=== PATIENT | female | born 1940 | race Hispanic/Latino ===

== ENCOUNTER 2017-07-22 16:21 | Inpatient (IN) | payer MEDICARE ==
[2017-07-22 16:56] LABS: ABG ALLEN TEST YES; ARTERIAL BLOOD GAS HCO3 22.9 mmol/L (21-28); ARTERIAL BLOOD GAS PH 7.43 (7.35-7.45); ARTERIAL BLOOD GAS PO2 54 mm/Hg (80-100)
[2017-07-22 17:10] LABS: BASO # 0.1 K/uL (0.0-0.2); BASO % 0.7 % (0.0-2.0); EOS % 0.5 % (0.0-4.0); HEMATOCRIT 37.5 % (34.0-47.0); LYMPH # 0.9 K/uL (1.0-4.3); LYMPH % 12.7 % (20.0-40.0); MEAN CELL VOLUME 88.1 fl (81.0-99.0); MEAN CORPUSCULAR HEMOGLOBIN 28.7 pg (27.0-31.0); MEAN CORPUSCULAR HGB CONC 32.6 g/dL (33.0-37.0); MEAN PLATELET VOLUME 8.2 fl (7.2-11.7); MONO # 0.6 K/uL (0.0-0.8); MONO % 8.5 % (0.0-10.0); NEUT # 5.8 K/uL (1.8-7.0); NEUT % 77.6 % (50.0-75.0); NRBC % 0.1 % (0.0-0.0); RED CELL DISTRIBUTION WIDTH 14.6 % (11.5-14.5); WHITE BLOOD COUNT 7.5 K/uL (4.8-10.8)
[2017-07-22 17:22] LABS: ALB/GLOB RATIO 1.3 (1.0-2.1); CALCIUM 9.5 mg/dL (8.4-10.2); CARBON DIOXIDE 22 mmol/L (22-30); CHLORIDE 108 mmol/L (98-107); GFR AFRICAN-AMERICAN > 60; GLUCOSE,RANDOM 122 mg/dL (65-105); SODIUM 142 mmol/l (132-148); TOTAL PROTEIN 7.9 G/DL (6.3-8.2)
[2017-07-22 17:29] LABS: PARTIAL THROMBOPLASTIN TIME 29.4 Seconds (25.6-37.1)
[2017-07-22 17:43] LABS: ALKALINE PHOSPHATASE 101 U/L (38-126); ALT/SGPT 27 U/L (9-52); AST/SGOT 24 U/L (14-36); BLOOD UREA NITROGEN 23 mg/dl (7-17); MAGNESIUM 1.7 MG/DL (1.6-2.3); PHOSPHOROUS 3.5 mg/dl (2.5-4.5); POTASSIUM 3.7 MMOL/L (3.6-5.0)
[2017-07-22] MEDS ORDERED: levoFLOXacin 750 mg in D5W 150 ML BAG IVPB STA (18:00)
[2017-07-22] MEDS ORDERED: cefTRIAXone IV 1 gm in Dextros 50 ML IVPB STA (18:01)
[2017-07-22] MEDS ORDERED: cefTRIAXone IV 1 gm in Dextros 50 ML IVPB ONE (18:17)
--- NOTE | 2017-07-22 19:02 | ED PDOC ---
HPI: SOB/CHF/COPD Time Seen by Provider: 07/22/17 16:45 Chief Complaint (Nursing): Shortness Of Breath Chief Complaint (Provider): sob History Per: Patient Onset/Duration Of Symptoms: Days (2 weeks), Gradual, Persistent Current Symptoms Are (Timing): Still Present Quality: Other (indigestion and discomfort epigastric area) Associated Symptoms: Heart Racing, Ankle/Leg Swelling, Light-headedness, Other ( non productive). denies: Fever, Chills, Sweating, Chest Pain, Bloody Cough, Productive Cough, Musle Spasms In Hands Or Feet Additional Complaint(s): Seen by PMD earlier today and advised to come to ER Past Medical History Reviewed: Historical Data, Nursing Documentation, Vital Signs Vital Signs: Last Vital Signs Temp 97.8 F 07/22/17 18:17 Pulse 98 H 07/22/17 18:17 Resp 20 07/22/17 18:17 BP 143/86 07/22/17 18:35 Pulse Ox 95 07/22/17 18:17 - Medical History PMH: Bronchitis, Diabetes, HTN, Hypercholesterolemia, Kidney Stones, Peripheral Edema, Pneumonia, Chronic Kidney Disease - Surgical History Surgical History: Appendectomy - Family History Family History: States: No Known Family Hx - Social History Current smoker - smoking cessation education provided: No - Home Medications Home Medications: Ambulatory Orders Medication Instructions Recorded Aspirin [Ecotrin] 81 mg PO DAILY #14 tabec 09/11/16 Famotidine [Pepcid] 20 mg PO DAILY 07/22/17 GlipiZIDE SR [Glucotrol XL] 10 mg PO DAILY 07/22/17 Lisinopril [Zestril] 5 mg PO DAILY 07/22/17 methIMAzole [Tapazole] 5 mg PO DAILY 07/22/17 - Allergies Allergies/Adverse Reactions: Allergies Allergy/AdvReac Type Severity Reaction Status Date / Time No Known Allergies Allergy Verified 07/22/17 16:30 Review of Systems ROS Statement: Except As Marked, All Systems Reviewed And Found Negative (and as per HPI) - Laboratory Results Result Diagrams: 07/22/17 16:59 07/22/17 17:05 - ECG O2 Sat by Pulse Oximetry: 95
[2017-07-22] MEDS ORDERED: Azithromycin 500 MG IV IVPB ONE (19:54)
[2017-07-23] MEDS: Nitroglycerin 2% Ointment Foilpak UD TOP SCH ×4 (03:56→21:30)
[2017-07-23 06:12] LABS: THYROID STIMULATING HORMONE 2.15 mIU/ML (0.46-4.68)
[2017-07-23] MEDS ORDERED: Enoxaparin 30 mg Syringe SC SCH (09:00)
--- NOTE | 2017-07-23 09:18 | CT ---
PROCEDURE: CT Chest without contrast HISTORY: effusion and infiltrate, possible mass? COMPARISON: Chest CT without contrast 09/07/2016. TECHNIQUE: Contiguous axial images were obtained through the chest without intravenous contrast enhancement. Sagittal and coronal reconstructions were performed. This CT exam was performed using one or more of the following dose reduction techniques: Automated exposure control, adjustment of the mA and/or kV according to patient size, and/or use of iterative reconstruction technique Total exam DLP = 482.68 mGy-cm. FINDINGS: LUNGS: Trace ground-glass opacities appreciate the bilateral apices. Compression atelectasis favored over infiltrates in the bilateral dependent lower lobes with central airways clear. The pulmonary veins appear somewhat engorged relative to the floorworker distributor airways a pattern suggesting CHF/pulmonary venous congestion. Further clinical correlation is advised. MEDIASTINUM: Unremarkable thoracic aorta. No aneurysm. Extensive coronary artery calcifications are identified as well as at the mitral annulus. Main pulmonary artery unremarkable. No vascular congestion. Shotty mediastinal lymph nodes are encountered. Thoracic inlet appears unremarkable. PLEURA: Mild bilateral pleural effusions are identified at the dependent portions injuring compressive atelectasis of the bilateral lower lobes. BONES: No fracture. No destructive lesion. UPPER ABDOMEN: Intrarenal punctate calculi identified at the right kidney. Incidental left adrenal nodule is not appear significantly changed in the interval at 1.5 cm greatest dimension. OTHER FINDINGS: None. IMPRESSION: 1. Findings likely represent pulmonary venous congestion. 2. Mild bilateral pleural effusions exert compressive atelectasis at bilateral lower lobe bases. 3. Likely benign left adrenal adenoma. Follow-up MRI advised to confirm.
[2017-07-23] MEDS: GlipiZIDE 10 mg SR Tab PO SCH (09:37)
[2017-07-23] MEDS: methIMAzole 5 MG TAB PO SCH (09:39)
--- NOTE | 2017-07-23 10:06 | CP.PCM.CON ---
History of Present Illness - History of Present Illness History of Present Illness: This 77 year old female presented to the emergency room, referred by her PMD, with progressively worsening HARLEY for the last two weeks. She has gradually become more SOB with simple activity, and has developed symptoms C/W orthopnea as well. She denies chest pain, nausea or diaphoresis, but did have a complaint of epigastric pain for which she had taken Pepcid and episodic palpitations. On initial EKG there was noted to be some ST segment depression, and a chest x-ray revealed bilateral pleural effusions. A CT chest w/o contrast was done which showed bilateral effusions with compressive atelectasis of the basal segments of both lower lobes. Shedenied any fever,chills or sweats, and also denied any productive cough. She did admit to an occasional non-productive cough. No ill contacts. She had been hospitalized about 9 months ago with a similar presentation which resolved quickly with medical treatment at that time. She does suffer from diabetes and hyperthyroidism and is followed by endocrinology. Given IV furosemide in the ER with brisk diuresis. Review of Systems - Review of Systems All systems: reviewed and no additional remarkable complaints except - EENT Nose/Mouth/Throat: Nasal Obstruction (deviated nasal septum with post nasal drip ) - Cardiovascular Cardiovascular: Orthopnea, Palpitations - Respiratory Respiratory: Cough, Dyspnea on Exertion - Gastrointestinal Gastrointestinal: Heartburn - Musculoskeletal Musculoskeletal: Tingling (both feet) - Neurological Neurological: Paresthesias (feet) - Psychiatric Psychiatric: Abnormal Sleep Pattern Past Patient History - Past Medical History & Family History Past Medical History?: Yes Pertinent Family History: Diabetes, CAD, colon cancer, lupus. - Past Social History Smoking Status: Former Smoker Chewing Tobacco Use: No Cigar Use: No Alcohol: Social Drugs: Denies Home Situation {Lives}: Alone - CARDIAC Hx Hypercholesterolemia: Yes Hx Hypertension: Yes Hx Peripheral Edema: Yes - PULMONARY Hx Bronchitis: Yes Hx Pneumonia: Yes - NEUROLOGICAL Hx Neurological Disorder: No - HEENT Hx HEENT Problems: No - RENAL Hx Kidney Stones: Yes - ENDOCRINE/METABOLIC Hx Diabetes Mellitus Type 2: Yes Hx Hyperthyroidism: Yes - HEMATOLOGICAL/ONCOLOGICAL Hx Blood Disorders: No Hx Human Immunodeficiency Virus (HIV): No - INTEGUMENTARY Hx Dermatological Problems: No - MUSCULOSKELETAL/RHEUMATOLOGICAL Hx Falls: Yes - GASTROINTESTINAL Hx Gastrointestinal Disorders: No - GENITOURINARY/GYNECOLOGICAL Hx Genitourinary Disorders: No - PSYCHIATRIC Hx Psychophysiologic Disorder: No Hx Substance Use: No - SURGICAL HISTORY Hx Appendectomy: Yes - ANESTHESIA Hx Anesthesia: Yes Hx Anesthesia Reactions: No Hx Malignant Hyperthermia: No Has any member of the family had a problem w/ anesthesia?: No Meds Allergies/Adverse Reactions: Allergies Allergy/AdvReac Type Severity Reaction Status Date / Time No Known Allergies Allergy Verified 07/22/17 16:30 - Medications Medications: Current Medications Aspirin (Ecotrin) 81 mg PO DAILY [facility] Last Admin: 07/23/17 09:38 Dose: 81 mg Enoxaparin Sodium (Lovenox) 30 mg SC DAILY [facility] PRN Reason: Protocol Famotidine (Pepcid) 20 mg PO DAILY [facility] Last Admin: 07/23/17 09:37 Dose: 20 mg Glipizide (Glucotrol Xl) 10 mg PO DAILY [facility] Last Admin: 07/23/17 09:37 Dose: 10 mg Lisinopril (Zestril) 5 mg PO DAILY [facility] Last Admin: 07/23/17 09:38 Dose: 5 mg Methimazole (Tapazole) 5 mg PO DAILY [facility] Last Admin: 07/23/17 09:39 Dose: 5 mg Nitroglycerin (Nitro-Bid 2% Oint) 0.5 ea TOP Q6 [facility] Last Admin: 07/23/17 09:40 Dose: 0.5 ea Physical Exam - Additional Findings Additional findings: Well nourished, well developed, NAD. Cooperative with exam. Trace dependant edema both feet and ankles, no calf tenderness or palpable venous cords. No cyanosis, no jaundice, no Sara's sign. No palpable adenopathy. Pharynx is pink and moist w/o exudate. Conjunctivae pink, no scleral icterus. Nares patent bilaterally, no active bleeding. Neck is supple and trachea midline. Superior thyroid poles palpable bilaterally. Dullness on percussion lung bases posteriorly, more L>R. Breath sounds diminished bilaterally, especially left base. No egophony, no audible wheezes. Few lower lobe rales bilaterally. Heart sounds are distant, rhythm is regular. Abdomen is soft with normal bowel sounds. Results - Vital Signs Recent Vital Signs: Last Vital Signs Temp 97.5 F L 07/23/17 08:00 Pulse 91 H 07/23/17 09:40 Resp 20 07/23/17 08:00 BP 129/58 L 07/23/17 09:40 Pulse Ox 95 07/23/17 08:00 - Labs Result Diagrams: 07/22/17 16:59 07/22/17 17:05 Labs: Laboratory Results - last 24 hr 07/22/17 07/22/17 07/22/17 16:46 16:59 17:05 WBC 7.5 RBC 4.26 Hgb 12.2 Hct 37.5 MCV 88.1 MCH 28.7 MCHC 32.6 L RDW 14.6 H Plt Count 349 D MPV 8.2 Neut % (Auto) 77.6 H Lymph % (Auto) 12.7 L Rabun % (Auto) 8.5 Eos % (Auto) 0.5 Baso % (Auto) 0.7 Neut # 5.8 Lymph # 0.9 L Rabun # 0.6 Eos # 0.0 Baso # 0.1 PT INR APTT D-Dimer, Quantitative pCO2 32 L pO2 54 L HCO3 22.9 ABG pH 7.43 ABG Total CO2 22.2 ABG O2 Saturation 93.2 L ABG Base Excess -2.4 L Anshul Test Yes ABG Potassium 3.3 L A-a O2 Difference 134.0 Sodium 140.0 142 Chloride 109.0 H 108 H Glucose 124 H Lactate 1.4 FiO2 32.0 Potassium 3.7 Carbon Dioxide 22 Anion Gap 16 BUN 23 H Creatinine 0.7 Est GFR ( Amer) > 60 Est GFR (Non-Af Amer) > 60 POC Glucose (mg/dL) Random Glucose 122 H Calcium 9.5 Phosphorus 3.5 Magnesium 1.7 Total Bilirubin 1.0 AST 24 ALT 27 Alkaline Phosphatase 101 Troponin I 0.1020 NT-Pro-B Natriuret Pep Total Protein 7.9 Albumin 4.4 Globulin 3.5 Albumin/Globulin Ratio 1.3 Triglycerides Cholesterol LDL Cholesterol Direct HDL Cholesterol TSH 3rd Generation Arterial Blood Potassium 3.3 L Blood Type Blood Type Confirm Antibody Screen BBK History Checked 07/22/17 07/22/17 07/22/17 17:05 17:09 17:54 WBC RBC Hgb Hct MCV MCH MCHC RDW Plt Count MPV Neut % (Auto) Lymph % (Auto) Rabun % (Auto) Eos % (Auto) Baso % (Auto) Neut # Lymph # Rabun # Eos # Baso # PT 12.0 INR 1.1 APTT 29.4 D-Dimer, Quantitative 142 pCO2 pO2 HCO3 ABG pH ABG Total CO2 ABG O2 Saturation ABG Base Excess Anshul Test ABG Potassium A-a O2 Difference Sodium Chloride Glucose Lactate FiO2 Potassium Carbon Dioxide Anion Gap BUN Creatinine Est GFR ( Amer) Est GFR (Non-Af Amer) POC Glucose (mg/dL) 148 H Random Glucose Calcium Phosphorus Magnesium Total Bilirubin AST ALT Alkaline Phosphatase Troponin I NT-Pro-B Natriuret Pep Total Protein Albumin Globulin Albumin/Globulin Ratio Triglycerides Cholesterol LDL Cholesterol Direct HDL Cholesterol TSH 3rd Generation Arterial Blood Potassium Blood Type A POSITIVE Blood Type Confirm Antibody Screen Negative BBK History Checked No verified bt 07/22/17 07/22/17 07/22/17 18:00 18:33 22:35 WBC RBC Hgb Hct MCV MCH MCHC RDW Plt Count MPV Neut % (Auto) Lymph % (Auto) Rabun % (Auto) Eos % (Auto) Baso % (Auto) Neut # Lymph # Rabun # Eos # Baso # PT INR APTT D-Dimer, Quantitative pCO2 pO2 HCO3 ABG pH ABG Total CO2 ABG O2 Saturation ABG Base Excess Anshul Test ABG Potassium A-a O2 Difference Sodium Chloride Glucose Lactate FiO2 Potassium Carbon Dioxide Anion Gap BUN Creatinine Est GFR ( Amer) Est GFR (Non-Af Amer) POC Glucose (mg/dL) 130 H Random Glucose Calcium Phosphorus Magnesium Total Bilirubin AST ALT Alkaline Phosphatase Troponin I NT-Pro-B Natriuret Pep 2880 H Total Protein Albumin Globulin Albumin/Globulin Ratio Triglycerides Cholesterol LDL Cholesterol Direct HDL Cholesterol TSH 3rd Generation Arterial Blood Potassium Blood Type Blood Type Confirm A POSITIVE Antibody Screen BBK History Checked 07/23/17 07/23/17 07/23/17 00:42 05:00 05:18 WBC RBC Hgb Hct MCV MCH MCHC RDW Plt Count MPV Neut % (Auto) Lymph % (Auto) Rabun % (Auto) Eos % (Auto) Baso % (Auto) Neut # Lymph # Rabun # Eos # Baso # PT INR APTT D-Dimer, Quantitative pCO2 pO2 HCO3 ABG pH ABG Total CO2 ABG O2 Saturation ABG Base Excess Anshul Test ABG Potassium A-a O2 Difference Sodium Chloride Glucose Lactate FiO2 Potassium Carbon Dioxide Anion Gap BUN Creatinine Est GFR ( Amer) Est GFR (Non-Af Amer) POC Glucose (mg/dL) 120 H Random Glucose Calcium Phosphorus Magnesium Total Bilirubin AST ALT Alkaline Phosphatase Troponin I 0.1370 H* NT-Pro-B Natriuret Pep Total Protein Albumin Globulin Albumin/Globulin Ratio Triglycerides 90 Cholesterol 170 LDL Cholesterol Direct 103 HDL Cholesterol 44 TSH 3rd Generation 2.15 Arterial Blood Potassium Blood Type Blood Type Confirm Antibody Screen BBK History Checked 07/23/17 09:05 WBC RBC Hgb Hct MCV MCH MCHC RDW Plt Count MPV Neut % (Auto) Lymph % (Auto) Rabun % (Auto) Eos % (Auto) Baso % (Auto) Neut # Lymph # Rabun # Eos # Baso # PT INR APTT D-Dimer, Quantitative pCO2 pO2 HCO3 ABG pH ABG Total CO2 ABG O2 Saturation ABG Base Excess Anshul Test ABG Potassium A-a O2 Difference Sodium Chloride Glucose Lactate FiO2 Potassium Carbon Dioxide Anion Gap BUN Creatinine Est GFR ( Amer) Est GFR (Non-Af Amer) POC Glucose (mg/dL) Random Glucose Calcium Phosphorus Magnesium Total Bilirubin AST ALT Alkaline Phosphatase Troponin I 0.1280 H* NT-Pro-B Natriuret Pep Total Protein Albumin Globulin Albumin/Globulin Ratio Triglycerides Cholesterol LDL Cholesterol Direct HDL Cholesterol TSH 3rd Generation Arterial Blood Potassium Blood Type Blood Type Confirm Antibody Screen BBK History Checked Assessment & Plan (1) Bilateral pleural effusion Status: Acute Priority: High Comment: Etiology under investigation. (2) Atelectasis, bilateral Status: Acute Priority: High Comment: Appears to be passive/compressive type of atelectasis due to pleural effusion. (3) Hyperthyroidism Status: Chronic Priority: High Comment: On medication. (4) Type 2 diabetes mellitus Status: Chronic Priority: High Comment: On medication. (5) Diabetic neuropathy Status: Chronic Priority: High - Assessment and Plan (Free Text) Plan: Case discussed with cardiology. Will follow up with repeat CXR in AM. Nasal oxygen decreased to 4 LPM with SpO2 =94%. Continue current antibiotic regimen. Further pulmonary intervention, if needed, depending on the above. - Date & Time Date: 07/23/17 Time: 10:21
--- NOTE | 2017-07-23 10:07 | RAD ---
HISTORY: sob COMPARISON: Chest radiographs 11/12/2016. FINDINGS: LUNGS: Interval bilateral basilar atelectasis or infiltrates are appreciated at the left greater than right lung bases with the left hemidiaphragm completely silhouetted. PLEURA: A mild or moderate left pleural effusions identified with none on the right. No pneumothorax identified bilaterally. CARDIOVASCULAR: Cardiac silhouette is obscured. There is mild pulmonary venous congestion suspected. Clinically correlate further. OSSEOUS STRUCTURES: No significant abnormalities. VISUALIZED UPPER ABDOMEN: Normal. OTHER FINDINGS: None. IMPRESSION: Mild CHF suspected. Clinically correlate. [id number] left pleural effusion noted with underlying atelectasis or infiltrate likely at the left base. Limited atelectasis or infiltrate seen the right base as well.
--- NOTE | 2017-07-23 10:52 | CARD ---
APPROVED REPORT EKG Measurement Heart [id number] HI [id number] <Conclusion> Sinus tachycardia with occasional premature ventricular complexes ST depression, consider subendocardial injury Abnormal ECG
--- NOTE | 2017-07-23 11:39 | CP.PCM.CON ---
History of Present Illness - History of Present Illness History of Present Illness: THE PATIENT IS A 77 YEAR OLD FEMALE WHO WAS ADMITTED TO [facility] OF 2016 WITH BILATERAL PLEURAL EFFUSUINS THAT RESOLVED QUICKLY WITH TREATMENT. SHE ALSO HAD CHEST AND ABDOMINAL PAIN AND NEVER FOLLOWED-UP ON A PHARMACOLOGICAL STRESS TEST RECOMMENDATION. SHE ALSO HAS A HISTORY OF HYPERTENSION, HYPERTHYROIDISM, DM, KIDNEY STONES AND PNEUMONIA IN THE PAST. SHE STATES THAT SHE WAS DOING WELL UP UNTIL THE PAST TWO WEEKS WHEN SHE STARTED HAVING SOB ESPECIALLY ON EXERTION AND EVEN HAD ORTHOPNEA. SHE ALSO STATES THAT SHE WOULD HAVE ON AND OFF PALPITATIONS AND HEARTBURN. SHE MIKE DR HOPKINS YESTERDAY WHO ADVISED HER TO COME TO THE ER WHERE SHE WAS FOUND TO HAVE SINUS TACHYCARDIA AND BILATERAL PLEURAL EFFUSIONS AND WAS GIVEN O2, IV FUROSEMIDE AND IV ANTIBIOTICS AND SHE IS BREATHING WELL THIS MORNING AND DOESN'T HAVE PALPITATIONS OR CHEST PAIN. CARDIOLOGY WAS CALLED BECAUSE OF MILDLY ELEVATED CARDIAC ENZYMES. Past Patient History - Past Medical History & Family History Past Medical History?: Yes - Past Social History Smoking Status: Former Smoker Chewing Tobacco Use: No Cigar Use: No Alcohol: Social Drugs: Denies Home Situation {Lives}: Alone - CARDIAC Hx Hypercholesterolemia: Yes Hx Hypertension: Yes Hx Peripheral Edema: Yes - PULMONARY Hx Bronchitis: Yes Hx Pneumonia: Yes - NEUROLOGICAL Hx Neurological Disorder: No - HEENT Hx HEENT Problems: No - RENAL Hx Kidney Stones: Yes - ENDOCRINE/METABOLIC Hx Diabetes Mellitus Type 2: Yes Hx Hyperthyroidism: Yes - HEMATOLOGICAL/ONCOLOGICAL Hx Blood Disorders: No Hx Human Immunodeficiency Virus (HIV): No - INTEGUMENTARY Hx Dermatological Problems: No - MUSCULOSKELETAL/RHEUMATOLOGICAL Hx Falls: Yes - GASTROINTESTINAL Hx Gastrointestinal Disorders: No - GENITOURINARY/GYNECOLOGICAL Hx Genitourinary Disorders: No - PSYCHIATRIC Hx Psychophysiologic Disorder: No Hx Substance Use: No - SURGICAL HISTORY Hx Appendectomy: Yes - ANESTHESIA Hx Anesthesia: Yes Hx Anesthesia Reactions: No Hx Malignant Hyperthermia: No Has any member of the family had a problem w/ anesthesia?: No Meds Allergies/Adverse Reactions: Allergies Allergy/AdvReac Type Severity Reaction Status Date / Time No Known Allergies Allergy Verified 07/22/17 16:30 - Medications Medications: Current Medications Aspirin (Ecotrin) 81 mg PO DAILY [facility] Last Admin: 07/23/17 09:38 Dose: 81 mg Enoxaparin Sodium (Lovenox) 40 mg SC DAILY [facility] PRN Reason: Protocol Famotidine (Pepcid) 20 mg PO DAILY [facility] Last Admin: 07/23/17 09:37 Dose: 20 mg Furosemide (Lasix) 40 mg PO DAILY [facility] Glipizide (Glucotrol Xl) 10 mg PO DAILY [facility] Last Admin: 07/23/17 09:37 Dose: 10 mg Azithromycin 500 mg/ Sodium (Chloride) 250 mls @ 250 mls/hr IVPB DAILY [facility] PRN Reason: Protocol Ceftriaxone Sodium (Rocephin Iv 1 Gm Duplex) 50 mls @ 50 mls/hr IVPB DAILY [facility] PRN Reason: Protocol Methimazole (Tapazole) 5 mg PO DAILY [facility] Last Admin: 07/23/17 09:39 Dose: 5 mg Metoprolol Tartrate (Lopressor) 25 mg PO Q12 [facility] Nitroglycerin (Nitro-Bid 2% Oint) 0.5 ea TOP Q6 [facility] Last Admin: 07/23/17 09:40 Dose: 0.5 ea Physical Exam - Respiratory Exam Respiratory Exam: Decreased Breath Sounds - Cardiovascular Exam Cardiovascular Exam: REGULAR RHYTHM, +S1, +S2 - Extremities Exam Additional comments: MILD LE EDEMA - Additional Findings Additional findings: EKG 07/22/[address], R 118, MILD ANTEROLATERAL WALL ST SEGMENT DEPRESSIONS EKG THIS AM WITH SINUS, R 79, RESOLUTION OF ST SEGMENT DEPRESSIONS TROPONIN # 1 0.102 TROPONIN # 2 0.137 TROPONIN # 3 0.128 PBNP 2880 CXR BILATERAL BASILAR EFFUSIONS ECHO AUG 2016 WITH LVEF OF 60-65% Results - Vital Signs Recent Vital Signs: Last Vital Signs Temp 97.5 F L 07/23/17 08:00 Pulse 91 H 07/23/17 09:40 Resp 20 07/23/17 08:00 BP 129/58 L 07/23/17 09:40 Pulse Ox 95 07/23/17 08:00 - Labs Result Diagrams: 07/22/17 16:59 07/22/17 17:05 Labs: Laboratory Results - last 24 hr 07/22/17 07/22/17 07/22/17 16:46 16:59 17:05 WBC 7.5 RBC 4.26 Hgb 12.2 Hct 37.5 MCV 88.1 MCH 28.7 MCHC 32.6 L RDW 14.6 H Plt Count 349 D MPV 8.2 Neut % (Auto) 77.6 H Lymph % (Auto) 12.7 L Meriwether % (Auto) 8.5 Eos % (Auto) 0.5 Baso % (Auto) 0.7 Neut # 5.8 Lymph # 0.9 L Mer[place]ether # 0.6 Eos # 0.0 Baso # 0.1 PT INR APTT D-Dimer, Quantitative pCO2 32 L pO2 54 L HCO3 22.9 ABG pH 7.43 ABG Total CO2 22.2 ABG O2 Saturation 93.2 L ABG Base Excess -2.4 L Anshul Test Yes ABG Potassium 3.3 L A-a O2 Difference 134.0 Sodium 140.0 142 Chloride 109.0 H 108 H Glucose 124 H Lactate 1.4 FiO2 32.0 Potassium 3.7 Carbon Dioxide 22 Anion Gap 16 BUN 23 H Creatinine 0.7 Est GFR ( Amer) > 60 Est GFR (Non-Af Amer) > 60 POC Glucose (mg/dL) Random Glucose 122 H Calcium 9.5 Phosphorus 3.5 Magnesium 1.7 Total Bilirubin 1.0 AST 24 ALT 27 Alkaline Phosphatase 101 Troponin I 0.1020 NT-Pro-B Natriuret Pep Total Protein 7.9 Albumin 4.4 Globulin 3.5 Albumin/Globulin Ratio 1.3 Triglycerides Cholesterol LDL Cholesterol Direct HDL Cholesterol TSH 3rd Generation Arterial Blood Potassium 3.3 L Blood Type Blood Type Confirm Antibody Screen BBK History Checked 07/22/17 07/22/17 07/22/17 17:05 17:09 17:54 WBC RBC Hgb Hct MCV MCH MCHC RDW Plt Count MPV Neut % (Auto) Lymph % (Auto) Meriwether % (Auto) Eos % (Auto) Baso % (Auto) Neut # Lymph # Meriwether # Eos # Baso # PT 12.0 INR 1.1 APTT 29.4 D-Dimer, Quantitative 142 pCO2 pO2 HCO3 ABG pH ABG Total CO2 ABG O2 Saturation ABG Base Excess Anshul Test ABG Potassium A-a O2 Difference Sodium Chloride Glucose Lactate FiO2 Potassium Carbon Dioxide Anion Gap BUN Creatinine Est GFR ( Amer) Est GFR (Non-Af Amer) POC Glucose (mg/dL) 148 H Random Glucose Calcium Phosphorus Magnesium Total Bilirubin AST ALT Alkaline Phosphatase Troponin I NT-Pro-B Natriuret Pep Total Protein Albumin Globulin Albumin/Globulin Ratio Triglycerides Cholesterol LDL Cholesterol Direct HDL Cholesterol TSH 3rd Generation Arterial Blood Potassium Blood Type A POSITIVE Blood Type Confirm Antibody Screen Negative BBK History Checked No verified bt 07/22/17 07/22/17 07/22/17 18:00 18:33 22:35 WBC RBC Hgb Hct MCV MCH MCHC RDW Plt Count MPV Neut % (Auto) Lymph % (Auto) Meriwether % (Auto) Eos % (Auto) Baso % (Auto) Neut # Lymph # Meriwether # Eos # Baso # PT INR APTT D-Dimer, Quantitative pCO2 pO2 HCO3 ABG pH ABG Total CO2 ABG O2 Saturation ABG Base Excess Anshul Test ABG Potassium A-a O2 Difference Sodium Chloride Glucose Lactate FiO2 Potassium Carbon Dioxide Anion Gap BUN Creatinine Est GFR ( Amer) Est GFR (Non-Af Amer) POC Glucose (mg/dL) 130 H Random Glucose Calcium Phosphorus Magnesium Total Bilirubin AST ALT Alkaline Phosphatase Troponin I NT-Pro-B Natriuret Pep 2880 H Total Protein Albumin Globulin Albumin/Globulin Ratio Triglycerides Cholesterol LDL Cholesterol Direct HDL Cholesterol TSH 3rd Generation Arterial Blood Potassium Blood Type Blood Type Confirm A POSITIVE Antibody Screen BBK History Checked 07/23/17 07/23/17 07/23/17 00:42 05:00 05:18 WBC RBC Hgb Hct MCV MCH MCHC RDW Plt Count MPV Neut % (Auto) Lymph % (Auto) Meriwether % (Auto) Eos % (Auto) Baso % (Auto) Neut # Lymph # Mer[place]ether # Eos # Baso # PT INR APTT D-Dimer, Quantitative pCO2 pO2 HCO3 ABG pH ABG Total CO2 ABG O2 Saturation ABG Base Excess Anshul Test ABG Potassium A-a O2 Difference Sodium Chloride Glucose Lactate FiO2 Potassium Carbon Dioxide Anion Gap BUN Creatinine Est GFR ( Amer) Est GFR (Non-Af Amer) POC Glucose (mg/dL) 120 H Random Glucose Calcium Phosphorus Magnesium Total Bilirubin AST ALT Alkaline Phosphatase Troponin I 0.1370 H* NT-Pro-B Natriuret Pep Total Protein Albumin Globulin Albumin/Globulin Ratio Triglycerides 90 Cholesterol 170 LDL Cholesterol Direct 103 HDL Cholesterol 44 TSH 3rd Generation 2.15 Arterial Blood Potassium Blood Type Blood Type Confirm Antibody Screen BBK History Checked 07/23/17 09:05 WBC RBC Hgb Hct MCV MCH MCHC RDW Plt Count MPV Neut % (Auto) Lymph % (Auto) Mer[place]ether % (Auto) Eos % (Auto) Baso % (Auto) Neut # Lymph # Meriwether # Eos # Baso # PT INR APTT D-Dimer, Quantitative pCO2 pO2 HCO3 ABG pH ABG Total CO2 ABG O2 Saturation ABG Base Excess Anshul Test ABG Potassium A-a O2 Difference Sodium Chloride Glucose Lactate FiO2 Potassium Carbon Dioxide Anion Gap BUN Creatinine Est GFR ( Amer) Est GFR (Non-Af Amer) POC Glucose (mg/dL) Random Glucose Calcium Phosphorus Magnesium Total Bilirubin AST ALT Alkaline Phosphatase Troponin I 0.1280 H* NT-Pro-B Natriuret Pep Total Protein Albumin Globulin Albumin/Globulin Ratio Triglycerides Cholesterol LDL Cholesterol Direct HDL Cholesterol TSH 3rd Generation Arterial Blood Potassium Blood Type Blood Type Confirm Antibody Screen BBK History Checked Assessment & Plan - Assessment and Plan (Free Text) Assessment: MILDLY ELEVATED TROPONINS AND MILD ANTEROLATERAL WALL ST SEGMENT DEPRESSIONS- MAY BE JUST FROM SINUS TACHYCARDIA BUT WITH HEARTBURN THIS MAY BE AN ANGINAL EQUIVALENT WITH MYOCARDIAL ISCHEMIA MILD ACUTE DIASTOLIC CHF PROBABLY FROM SINUS TACHYCARDIA AND MYOCARDIAL ISCHEMIA -MAY BE THE CAUSE OF THE PLEURAL EFFUSIONS HYPERTENSION HYPERLIPIDEMIA HYPERTHYROIDISM DM Plan: THE PATIENT WAS ADMITTED TO 4N ON TELEMETRY SERIAL EKGS AND TROPONINS WERE ALREADY DONE O2, ASPIRIN, FUROSEMIDE, NITROPASTE, LOVENOX, ANTIBIOTICS, TAPAZOLE LISINOPRIL CHANGED TO METOPROLOL TO TREAT HYPERTENSION BUT ALSO TO TREAT CAD AND SINUS TACHYCARDIA A CARDIAC CATHETERIZATION WAS RECOMMENDED TO THE PATIENT TO ASSESS FOR CAD AND POSSIBLE NEED FOR CORONARY REVASCULARIZATION-THE PATIENT IS UNDECIDED IF SHE WANTS TO UNDERGO A CARDIAC CATHETERIZATION OR JUST HAVE CONSERVATIVE MEDICAL TREATMENT AND WANTS TO THINK IT OVER AND MAKE A DECISION BY TOMORROW THE PATIENT WAS DISCUSSED WITH PULMONARY
--- NOTE | 2017-07-23 12:03 | CARD ---
APPROVED REPORT EKG Measurement Heart [id number] <Conclusion> Normal sinus rhythm Normal ECG
[2017-07-23] MEDS: cefTRIAXone IV 1 gm in Dextros 50 ML IVPB SCH (14:45)
[2017-07-23] MEDS: Azithromycin 500 MG in Sodium Chloride 0.9% 250 ML IVPB SCH (15:54)
--- NOTE | 2017-07-23 20:41 | CP.PCM.HP ---
History of Present Illness - History of Present Illness History of Present Illness: 77 yo with hx of COPD HTN admitted for palpitations epigastric discomfort and SOB. Pt states sx similar to previous admission Present on Admission - Present on Admission Any Indicators Present on Admission: No Past Patient History - Past Medical History & Family History Past Medical History?: Yes - Past Social History Smoking Status: Former Smoker Chewing Tobacco Use: No Cigar Use: No Alcohol: Social Drugs: Denies Home Situation {Lives}: Alone - CARDIAC Hx Hypercholesterolemia: Yes Hx Hypertension: Yes Hx Peripheral Edema: Yes - PULMONARY Hx Bronchitis: Yes Hx Pneumonia: Yes - NEUROLOGICAL Hx Neurological Disorder: No - HEENT Hx HEENT Problems: No - RENAL Hx Kidney Stones: Yes - ENDOCRINE/METABOLIC Hx Diabetes Mellitus Type 2: Yes Hx Hyperthyroidism: Yes - HEMATOLOGICAL/ONCOLOGICAL Hx Blood Disorders: No Hx Human Immunodeficiency Virus (HIV): No - INTEGUMENTARY Hx Dermatological Problems: No - MUSCULOSKELETAL/RHEUMATOLOGICAL Hx Falls: Yes - GASTROINTESTINAL Hx Gastrointestinal Disorders: No - GENITOURINARY/GYNECOLOGICAL Hx Genitourinary Disorders: No - PSYCHIATRIC Hx Psychophysiologic Disorder: No Hx Substance Use: No - SURGICAL HISTORY Hx Appendectomy: Yes - ANESTHESIA Hx Anesthesia: Yes Hx Anesthesia Reactions: No Hx Malignant Hyperthermia: No Has any member of the family had a problem w/ anesthesia?: No Meds Allergies/Adverse Reactions: Allergies Allergy/AdvReac Type Severity Reaction Status Date / Time No Known Allergies Allergy Verified 07/22/17 16:30 Physical Exam - Respiratory Exam Respiratory Exam: NORMAL BREATHING PATTERN - Cardiovascular Exam Cardiovascular Exam: REGULAR RHYTHM - GI/Abdominal Exam GI & Abdominal Exam: Normal Bowel Sounds Results - Vital Signs Recent Vital Signs: Last Vital Signs Temp 97.2 F L 07/23/17 18:58 Pulse 79 07/23/17 18:58 Resp 20 07/23/17 18:58 BP 107/62 07/23/17 18:58 Pulse Ox 95 07/23/17 18:58 - Labs Result Diagrams: 07/22/17 16:59 07/22/17 17:05 Labs: Laboratory Results - last 24 hr 07/22/17 07/22/17 07/22/17 17:09 18:33 22:35 POC Glucose (mg/dL) 148 H 130 H Hemoglobin A1c Troponin I Triglycerides Cholesterol LDL Cholesterol Direct HDL Cholesterol TSH 3rd Generation Blood Type Confirm A POSITIVE 07/23/17 07/23/17 07/23/17 00:42 05:00 05:00 POC Glucose (mg/dL) Hemoglobin A1c 5.9 Troponin I 0.1370 H* Triglycerides 90 Cholesterol 170 LDL Cholesterol Direct 103 HDL Cholesterol 44 TSH 3rd Generation 2.15 Blood Type Confirm 07/23/17 07/23/17 07/23/17 05:18 09:05 11:35 POC Glucose (mg/dL) 120 H 137 H Hemoglobin A1c Troponin I 0.1280 H* Triglycerides Cholesterol LDL Cholesterol Direct HDL Cholesterol TSH 3rd Generation Blood Type Confirm 07/23/17 16:11 POC Glucose (mg/dL) 124 H Hemoglobin A1c Troponin I Triglycerides Cholesterol LDL Cholesterol Direct HDL Cholesterol TSH 3rd Generation Blood Type Confirm Assessment & Plan - Assessment and Plan (Free Text) Assessment: Palpitations epigastric discomfort and SOB hx of COPD HTN + trponins?? Pleural effusions diastolic CHF? Cardiology Pulmonary NIDDM Thyroid dx Endo Periphereal neuropathy - Date & Time Date: 07/23/17 Time: 22:22
[2017-07-24] MEDS: Nitroglycerin 2% Ointment Foilpak UD TOP SCH ×4 (05:23→21:23)
[2017-07-24] MEDS ORDERED: cefTRIAXone IV 1 gm in Dextros 50 ML IVPB SCH (09:00)
--- NOTE | 2017-07-24 09:25 | CP.PCM.PN ---
Subjective - Date & Time of Evaluation Date of Evaluation: 07/24/17 Time of Evaluation: 09:18 - Subjective Subjective: Patient seen on rounds in telemetry. States she feels significantly improved from admission. Able to lie in bed and sleep comfortably last night. No complaints of chest discomfort or palpitations. No shortness of breath, but ambulates only from bed to bathroom. On exam there is still dullness on percussion of the lung bases posteriorly. There is an area of bronchial breathing with egophony at the left base. On the right there are only diminished breath sounds at the base. No audible wheezes heard. Few lower lobe medium rales bilaterally Heart sounds are slightly distant, regular. No dependant edema or cyanosis. Followup CXR requested for this morning. She is anxious for discharge, but we did discuss cardiology's recommendation for cath. She appears to prefer discharge, and time to think it over, but I tried to explain clearly the potential risks involved in waiting. Objective - Vital Signs/Intake and Output Vital Signs (last 24 hours): Temp Pulse Resp BP Pulse Ox 97.3 F L 81 20 116/58 L 98 07/24/17 08:14 07/24/17 08:14 07/24/17 08:14 07/24/17 08:14 07/24/17 08:14 - Medications Medications: Current Medications Aspirin (Ecotrin) 81 mg PO DAILY [facility] Last Admin: 07/23/17 09:38 Dose: 81 mg Enoxaparin Sodium (Lovenox) 40 mg SC DAILY [facility] PRN Reason: Protocol Famotidine (Pepcid) 20 mg PO DAILY [facility] Last Admin: 07/23/17 09:37 Dose: 20 mg Furosemide (Lasix) 40 mg PO DAILY [facility] Last Admin: 07/23/17 12:01 Dose: 40 mg Glipizide (Glucotrol Xl) 10 mg PO DAILY [facility] Last Admin: 07/23/17 09:37 Dose: 10 mg Azithromycin 500 mg/ Sodium (Chloride) 250 mls @ 250 mls/hr IVPB DAILY [facility] PRN Reason: Protocol Last Admin: 07/23/17 15:54 Dose: 250 mls/hr Ceftriaxone Sodium (Rocephin Iv 1 Gm Duplex) 50 mls @ 50 mls/hr IVPB DAILY [facility] PRN Reason: Protocol Last Admin: 07/23/17 14:45 Dose: 50 mls/hr Lactulose (Enulose) 20 gm PO DAILY [facility] Last Admin: 07/23/17 14:55 Dose: 20 gm Methimazole (Tapazole) 5 mg PO DAILY [facility] Last Admin: 07/23/17 09:39 Dose: 5 mg Metoprolol Tartrate (Lopressor) 25 mg PO Q12 [facility] Last Admin: 07/23/17 21:30 Dose: 25 mg Nitroglycerin (Nitro-Bid 2% Oint) 0.5 ea TOP Q6 [facility] Last Admin: 07/24/17 05:23 Dose: 0.5 ea - Labs Labs: 07/22/17 16:59 07/22/17 17:05 PT 12.0 Seconds (9.8-13.1) 07/22/17 17:05 INR 1.1 (0.9-1.2) 07/22/17 17:05 APTT 29.4 Seconds (25.6-37.1) 07/22/17 17:05 Assessment and Plan (1) Bilateral pleural effusion Status: Acute (2) Atelectasis, bilateral Status: Acute (3) Hyperthyroidism Status: Chronic (4) Type 2 diabetes mellitus Status: Chronic (5) Diabetic neuropathy Status: Chronic
[2017-07-24] MEDS: Enoxaparin 40 mg Syringe SC SCH (09:30)
[2017-07-24] MEDS: GlipiZIDE 10 mg SR Tab PO SCH (09:31)
[2017-07-24] MEDS: methIMAzole 5 MG TAB PO SCH (09:32)
[2017-07-24] MEDS: Azithromycin 500 MG in Sodium Chloride 0.9% 250 ML IVPB SCH (09:33)
[2017-07-24] MEDS: cefTRIAXone IV 1 gm in Dextros 50 ML IVPB SCH ×2 (09:56→16:46)
--- NOTE | 2017-07-24 10:28 | CP.PCM.PN ---
Subjective - Date & Time of Evaluation Date of Evaluation: 07/24/17 Time of Evaluation: 09:30 - Subjective Subjective: NO FURTHER CHEST PAIN, HEARTBURN OR PALPITATIONS BREATHING WELL NOW AND SLEPT WELL LAST NIGHT SHE DOESN'T WANT TO HAVE A CARDIAC CATH AT THE PRESENT TIME Objective - Vital Signs/Intake and Output Vital Signs (last 24 hours): Temp Pulse Resp BP Pulse Ox 97.3 F L 81 20 116/58 L 98 07/24/17 08:14 07/24/17 09:32 07/24/17 08:14 07/24/17 09:32 07/24/17 08:14 - Medications Medications: Current Medications Aspirin (Ecotrin) 81 mg PO DAILY [facility] Last Admin: 07/24/17 09:30 Dose: 81 mg Enoxaparin Sodium (Lovenox) 40 mg SC DAILY [facility] PRN Reason: Protocol Last Admin: 07/24/17 09:30 Dose: 40 mg Famotidine (Pepcid) 20 mg PO DAILY [facility] Last Admin: 07/24/17 09:32 Dose: 20 mg Furosemide (Lasix) 40 mg PO DAILY [facility] Last Admin: 07/24/17 09:31 Dose: 40 mg Glipizide (Glucotrol Xl) 10 mg PO DAILY [facility] Last Admin: 07/24/17 09:31 Dose: 10 mg Azithromycin 500 mg/ Sodium (Chloride) 250 mls @ 250 mls/hr IVPB DAILY [facility] PRN Reason: Protocol Last Admin: 07/24/17 09:33 Dose: 250 mls/hr Ceftriaxone Sodium (Rocephin Iv 1 Gm Duplex) 50 mls @ 50 mls/hr IVPB DAILY [facility] PRN Reason: Protocol Last Admin: 07/23/17 14:45 Dose: 50 mls/hr Lactulose (Enulose) 20 gm PO DAILY [facility] Last Admin: 07/24/17 09:34 Dose: Not Given Methimazole (Tapazole) 5 mg PO DAILY [facility] Last Admin: 07/24/17 09:32 Dose: 5 mg Metoprolol Tartrate (Lopressor) 25 mg PO Q12 [facility] Last Admin: 07/24/17 09:30 Dose: 25 mg Nitroglycerin (Nitro-Bid 2% Oint) 0.5 ea TOP Q6 [facility] Last Admin: 07/24/17 09:32 Dose: 0.5 ea - Labs Labs: 07/22/17 16:59 11/27/17 17:05 PT 12.0 Seconds (9.8-13.1) 07/22/17 17:05 INR 1.1 (0.9-1.2) 07/22/17 17:05 APTT 29.4 Seconds (25.6-37.1) 07/22/17 17:05 - Respiratory Exam Respiratory Exam: Decreased Breath Sounds - Cardiovascular Exam Cardiovascular Exam: REGULAR RHYTHM, +S1, +S2 - Extremities Exam Extremities Exam: Normal Inspection Assessment and Plan - Assessment and Plan (Free Text) Assessment: S/P CHEST PAIN, PALPITATIONS WITH SINUS TACHYCARDIA AND MILDLY ELEVATED TROPONINS-NOW CHEST PAIN FREE AND WITH SINUS RHYTM AT NORMAL RATES-THE PATIENT MAY HAVE UNDERLYING CAD MILD DIASTOLIC CHF-IMPROVED WITH TREATMENT HYPERTENSION HYPERLIPIDEMIA HYPERTHYROIDISM Plan: THE PATIENT DECLINES A CARDIAC CATH FOR POSSIBLE CORONARY REVASCULARIZATION AT THIS TIME CONTINUE O2, FUROSEMIDE, NITROPASTE, METOPROLOL, ASPIRIN, ATORVASTATIN, LOVENOX THE PATIENT WAS ASKED TO RECONSIDER A CARDIAC CATH ON THIS ADMISSION BUT IF SHE STILL DECLINES WE CAN DO AN OUT PATIENT PHARMACOLOGICAL STRESS TEST IN THE NEAR FUTURE FOR REPEAT CXR
--- NOTE | 2017-07-24 13:39 | RAD ---
HISTORY: Atelectasis. COMPARISON: 07/22/2017 single-view chest. TECHNIQUE: Chest PA and lateral FINDINGS: LUNGS: Interval improvement with respect aeration right lower lobe. Persistent/improving left lower lobe infiltrate. PLEURA: Stable left pleural effusion. CARDIOVASCULAR: No significant interval change compared to the prior examination(s). OSSEOUS STRUCTURES: No significant abnormalities. VISUALIZED UPPER ABDOMEN: Normal. OTHER FINDINGS: None. IMPRESSION: Interval improvement with respect to lower lobe infiltrates. Left pleural effusion remains.
--- NOTE | 2017-07-24 18:56 | CP.PCM.PN ---
Subjective - Date & Time of Evaluation Date of Evaluation: 07/24/17 Time of Evaluation: 22:22 - Subjective Subjective: Above noted Objective - Vital Signs/Intake and Output Vital Signs (last 24 hours): Temp Pulse Resp BP Pulse Ox 97.7 F 77 16 131/65 98 07/24/17 16:07 07/24/17 16:07 07/24/17 16:07 07/24/17 16:07 07/24/17 16:07 Intake and Output: 07/24/17 07/24/17 06:59 18:59 Intake Total 1150 Output Total 450 Balance 700 - Medications Medications: Current Medications Aspirin (Ecotrin) 81 mg PO DAILY [facility] Last Admin: 07/24/17 09:30 Dose: 81 mg Enoxaparin Sodium (Lovenox) 40 mg SC DAILY [facility] PRN Reason: Protocol Last Admin: 07/24/17 09:30 Dose: 40 mg Famotidine (Pepcid) 20 mg PO DAILY [facility] Last Admin: 07/24/17 09:32 Dose: 20 mg Furosemide (Lasix) 40 mg PO DAILY [facility] Last Admin: 07/24/17 09:31 Dose: 40 mg Glipizide (Glucotrol Xl) 10 mg PO DAILY [facility] Last Admin: 07/24/17 09:31 Dose: 10 mg Azithromycin 500 mg/ Sodium (Chloride) 250 mls @ 250 mls/hr IVPB DAILY [facility] PRN Reason: Protocol Last Admin: 07/24/17 09:33 Dose: 250 mls/hr Ceftriaxone Sodium (Rocephin Iv 1 Gm Duplex) 50 mls @ 50 mls/hr IVPB DAILY [facility] PRN Reason: Protocol Last Admin: 07/24/17 09:56 Dose: 50 mls/hr Lactulose (Enulose) 20 gm PO DAILY [facility] Last Admin: 07/24/17 09:34 Dose: Not Given Methimazole (Tapazole) 5 mg PO DAILY [facility] Last Admin: 07/24/17 09:32 Dose: 5 mg Metoprolol Tartrate (Lopressor) 25 mg PO Q12 [facility] Last Admin: 07/24/17 09:30 Dose: 25 mg Nitroglycerin (Nitro-Bid 2% Oint) 0.5 ea TOP Q6 [facility] Last Admin: 07/24/17 18:04 Dose: 0.5 ea - Labs Labs: 07/22/17 16:59 07/22/17 17:05 PT 12.0 Seconds (9.8-13.1) 07/22/17 17:05 INR 1.1 (0.9-1.2) 07/22/17 17:05 APTT 29.4 Seconds (25.6-37.1) 07/22/17 17:05 - Respiratory Exam Respiratory Exam: NORMAL BREATHING PATTERN - Cardiovascular Exam Cardiovascular Exam: REGULAR RHYTHM - GI/Abdominal Exam GI & Abdominal Exam: Normal Bowel Sounds Assessment and Plan - Assessment and Plan (Free Text) Assessment: CAP Diastolic CHF CAD?? SOB Palpitations epigastric discomfort Hx of COPD HTN + trponins?? Pleural effusions Cardiology Pulmonary NIDDM Thyroid dx Endo Periphereal neuropathy - Date & Time Date: 07/23/17
[2017-07-25] MEDS: Nitroglycerin 2% Ointment Foilpak UD TOP SCH ×2 (05:10→09:47)
[2017-07-25 06:27] LABS: BASO % 0.7 % (0.0-2.0); EOS # 0.2 K/uL (0.0-0.7); EOS % 3.2 % (0.0-4.0); HEMATOCRIT 30.5 % (34.0-47.0); LYMPH % 16.1 % (20.0-40.0); MEAN CELL VOLUME 87.3 fl (81.0-99.0); MEAN CORPUSCULAR HGB CONC 33.2 g/dL (33.0-37.0); MEAN PLATELET VOLUME 8.1 fl (7.2-11.7); MONO # 0.9 K/uL (0.0-0.8); MONO % 14.3 % (0.0-10.0); NEUT # 4.3 K/uL (1.8-7.0); NEUT % 65.7 % (50.0-75.0); RED CELL DISTRIBUTION WIDTH 14.3 % (11.5-14.5); WHITE BLOOD COUNT 6.5 K/uL (4.8-10.8)
[2017-07-25 06:47] LABS: BLOOD UREA NITROGEN 37 mg/dl (7-17); CALCIUM 9.2 mg/dL (8.4-10.2); CARBON DIOXIDE 27 mmol/L (22-30); CHLORIDE 108 mmol/L (98-107); GFR AFRICAN-AMERICAN > 60; GLUCOSE,RANDOM 44 mg/dL (65-105); POTASSIUM 3.9 MMOL/L (3.6-5.0); SODIUM 143 mmol/l (132-148)
[2017-07-25] MEDS: Azithromycin 500 MG in Sodium Chloride 0.9% 250 ML IVPB SCH (09:44)
[2017-07-25] MEDS: Enoxaparin 40 mg Syringe SC SCH (09:45)
[2017-07-25] MEDS: methIMAzole 5 MG TAB PO SCH (09:46)
[2017-07-25] MEDS: GlipiZIDE 10 mg SR Tab PO SCH (09:46)
--- NOTE | 2017-07-25 11:54 | CP.PCM.PN ---
Subjective - Date & Time of Evaluation Date of Evaluation: 07/25/17 Time of Evaluation: 11:00 - Subjective Subjective: NO CHEST PAIN OR PALPITATIONS BREATHING BETTER Objective - Vital Signs/Intake and Output Vital Signs (last 24 hours): Temp Pulse Resp BP Pulse Ox 97.8 F 75 20 103/62 94 L 07/25/17 08:00 07/25/17 09:47 07/25/17 08:00 07/25/17 09:47 07/25/17 08:00 Intake and Output: 07/25/17 07/25/17 06:59 18:59 Intake Total 250 Balance 250 - Medications Medications: Current Medications Aspirin (Ecotrin) 81 mg PO DAILY [facility] Last Admin: 07/25/17 09:46 Dose: 81 mg Enoxaparin Sodium (Lovenox) 40 mg SC DAILY [facility] PRN Reason: Protocol Last Admin: 07/25/17 09:45 Dose: 40 mg Famotidine (Pepcid) 20 mg PO DAILY [facility] Last Admin: 07/25/17 09:45 Dose: 20 mg Furosemide (Lasix) 40 mg PO DAILY [facility] Last Admin: 07/25/17 09:46 Dose: 40 mg Glipizide (Glucotrol Xl) 10 mg PO DAILY [facility] Last Admin: 07/25/17 09:46 Dose: 10 mg Azithromycin 500 mg/ Sodium (Chloride) 250 mls @ 250 mls/hr IVPB DAILY [facility] PRN Reason: Protocol Last Admin: 07/25/17 09:44 Dose: 250 mls/hr Ceftriaxone Sodium (Rocephin Iv 1 Gm Duplex) 50 mls @ 50 mls/hr IVPB DAILY [facility] PRN Reason: Protocol Last Admin: 07/24/17 09:56 Dose: 50 mls/hr Lactulose (Enulose) 20 gm PO DAILY [facility] Last Admin: 07/25/17 09:46 Dose: 20 gm Methimazole (Tapazole) 5 mg PO DAILY [facility] Last Admin: 07/25/17 09:46 Dose: 5 mg Metoprolol Tartrate (Lopressor) 25 mg PO Q12 [facility] Last Admin: 07/25/17 09:45 Dose: 25 mg Nitroglycerin (Nitro-Bid 2% Oint) 0.5 ea TOP Q6 [facility] Last Admin: 07/25/17 09:47 Dose: 0.5 ea - Labs Labs: 07/25/17 05:00 07/25/17 05:00 PT 12.0 Seconds (9.8-13.1) 07/22/17 17:05 INR 1.1 (0.9-1.2) 07/22/17 17:05 APTT 29.4 Seconds (25.6-37.1) 07/22/17 17:05 - Respiratory Exam Respiratory Exam: Decreased Breath Sounds - Cardiovascular Exam Cardiovascular Exam: REGULAR RHYTHM, +S1, +S2 - Extremities Exam Extremities Exam: Normal Inspection - Additional Findings Additional findings: 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
--- NOTE | 2017-07-25 12:25 | CP.PCM.PN ---
Subjective - Date & Time of Evaluation Date of Evaluation: 07/25/17 Time of Evaluation: 12:19 - Subjective Subjective: Sitting on the EOB she appears comfortable. She remains afebrile and normotensive. No leukocytosis on followup CBC. Chest x-ray shows somen improvement in the right sided effusion, but on the left the effusion remains and there is a LLL consolidation with air- bronchograms present. This was suggested by the initial CXR, but is better seen on the followup exam. There is dullness in the bases posteriorly in both lungs on percussion. An area of bronchial breathing with egophony is present in the lower lobe area as well. No rales or wheezes are heard, and only few medium rales are auscultated. With coaching to cough there seems to be little congestion heard in the bases as well. Will add aerosolized mucomyst with low dose levalbuterol. CPT using flutter valve device will be requested as well. Add PO guaifenesin to the regimen. She is a poor candidate for bronchoscopy considering the questionable cardiac status. Objective - Vital Signs/Intake and Output Vital Signs (last 24 hours): Temp Pulse Resp BP Pulse Ox 97.8 F 75 20 103/62 94 L 07/25/17 08:00 07/25/17 09:47 07/25/17 08:00 07/25/17 09:47 07/25/17 08:00 Intake and Output: 07/25/17 07/25/17 11:59 23:59 Intake Total 250 Balance 250 - Medications Medications: Current Medications Aspirin (Ecotrin) 81 mg PO DAILY [facility] Last Admin: 07/25/17 09:46 Dose: 81 mg Atorvastatin Calcium (Lipitor) 20 mg PO DAILY [facility] Enoxaparin Sodium (Lovenox) 40 mg SC DAILY [facility] PRN Reason: Protocol Last Admin: 07/25/17 09:45 Dose: 40 mg Famotidine (Pepcid) 20 mg PO DAILY [facility] Last Admin: 07/25/17 09:45 Dose: 20 mg Furosemide (Lasix) 40 mg PO DAILY [facility] Last Admin: 07/25/17 09:46 Dose: 40 mg Glipizide (Glucotrol Xl) 10 mg PO DAILY [facility] Last Admin: 07/25/17 09:46 Dose: 10 mg Azithromycin 500 mg/ Sodium (Chloride) 250 mls @ 250 mls/hr IVPB DAILY [facility] PRN Reason: Protocol Last Admin: 07/25/17 09:44 Dose: 250 mls/hr Ceftriaxone Sodium (Rocephin Iv 1 Gm Duplex) 50 mls @ 50 mls/hr IVPB DAILY [facility] PRN Reason: Protocol Last Admin: 07/24/17 09:56 Dose: 50 mls/hr Lactulose (Enulose) 20 gm PO DAILY [facility] Last Admin: 07/25/17 09:46 Dose: 20 gm Methimazole (Tapazole) 5 mg PO DAILY [facility] Last Admin: 07/25/17 09:46 Dose: 5 mg Metoprolol Tartrate (Lopressor) 25 mg PO Q12 [facility] Last Admin: 07/25/17 09:45 Dose: 25 mg Nitroglycerin (Nitro-Bid 2% Oint) 0.5 ea TOP Q6 [facility] Last Admin: 07/25/17 09:47 Dose: 0.5 ea - Labs Labs: 07/25/17 05:00 07/25/17 05:00 PT 12.0 Seconds (9.8-13.1) 07/22/17 17:05 INR 1.1 (0.9-1.2) 07/22/17 17:05 APTT 29.4 Seconds (25.6-37.1) 07/22/17 17:05 Assessment and Plan (1) Bilateral pleural effusion Status: Acute (2) Atelectasis, bilateral Status: Acute (3) Hyperthyroidism Status: Chronic (4) Type 2 diabetes mellitus Status: Chronic (5) Diabetic neuropathy Status: Chronic
[2017-07-25] MEDS: cefTRIAXone IV 1 gm in Dextros 50 ML IVPB SCH (13:34)
[2017-07-25 16:16] VITALS: BP 152/60; PULSE 86; RESP 14; TEMP 97.7; O2SAT 96
[2017-07-25] MEDS ORDERED: Levalbuterol 0.63 MG/3 ML Inhal Soln UD INH SCH (17:00)
[2017-07-25] MEDS ORDERED: Acetylcysteine 20% Inhal Soln (4ml) INH SCH (20:00)
[2017-07-25] MEDS ORDERED: guaiFENesin 600 mg ER Tab PO SCH (21:00)
== END 2017-07-25 16:10 | DRG 291 ==
LOC: H.ER 16:21 → H.ERHOLD 18:15 → H.TEL 20:22
PROVIDERS: ADMIT Family Medicine Geriatric Medicine; ATTEND Family Medicine Geriatric Medicine
DX: I13.0 Hypertensive heart and chronic kidney disease with heart failure and stage 1 through stage 4 chronic kidney disease, or unspecified chronic kidney disease (principal); I50.31 Acute diastolic (congestive) heart failure; J18.9 Pneumonia, unspecified organism; E11.42 Type 2 diabetes mellitus with diabetic polyneuropathy; E11.22 Type 2 diabetes mellitus with diabetic chronic kidney disease; J44.0 Chronic obstructive pulmonary disease with (acute) lower respiratory infection; J98.11 Atelectasis; N18.9 Chronic kidney disease, unspecified; E78.5 Hyperlipidemia, unspecified; R00.0 Tachycardia, unspecified; Z87.891 Personal history of nicotine dependence; E78.00 Pure hypercholesterolemia, unspecified; Z53.20 Procedure and treatment not carried out because of patient's decision for unspecified reasons; E05.90 Thyrotoxicosis, unspecified without thyrotoxic crisis or storm

== ENCOUNTER 2017-07-25 15:19 | Inpatient (IN) | payer OTHER ==
[2017-07-25 16:19] VITALS: BMI 26.5
[2017-07-25] MEDS ORDERED: Azithromycin 500 MG in Sodium Chloride 0.9% 250 ML IVPB SCH (18:30)
--- NOTE | 2017-07-25 21:19 | CP.PCM.HP ---
History of Present Illness - History of Present Illness History of Present Illness: 77 yo admitted for decoonditioning Present on Admission - Present on Admission Any Indicators Present on Admission: No Past Patient History - Past Medical History & Family History Past Medical History?: Yes - Past Social History Smoking Status: Former Smoker - CARDIAC Hx Hypercholesterolemia: Yes Hx Hypertension: Yes Hx Peripheral Edema: Yes - PULMONARY Hx Bronchitis: Yes Hx Pneumonia: Yes - NEUROLOGICAL Hx Neurological Disorder: No - HEENT Hx HEENT Problems: No - RENAL Hx Kidney Stones: Yes - ENDOCRINE/METABOLIC Hx Diabetes Mellitus Type 2: Yes Hx Hyperthyroidism: Yes - HEMATOLOGICAL/ONCOLOGICAL Hx Blood Disorders: No Hx AIDS: No Hx Human Immunodeficiency Virus (HIV): No - INTEGUMENTARY Hx Dermatological Problems: No - MUSCULOSKELETAL/RHEUMATOLOGICAL Hx Falls: No - GASTROINTESTINAL Hx Gastrointestinal Disorders: No - GENITOURINARY/GYNECOLOGICAL Hx Genitourinary Disorders: No - PSYCHIATRIC Hx Psychophysiologic Disorder: No Hx Substance Use: No - SURGICAL HISTORY Hx Appendectomy: Yes - ANESTHESIA Hx Anesthesia: Yes Hx Anesthesia Reactions: No Hx Malignant Hyperthermia: No Meds Allergies/Adverse Reactions: Allergies Allergy/AdvReac Type Severity Reaction Status Date / Time No Known Allergies Allergy Verified 07/25/17 16:13 Physical Exam - Respiratory Exam Respiratory Exam: NORMAL BREATHING PATTERN - Cardiovascular Exam Cardiovascular Exam: REGULAR RHYTHM - GI/Abdominal Exam GI & Abdominal Exam: Normal Bowel Sounds Results - Vital Signs Recent Vital Signs: Last Vital Signs Temp Pulse 74 07/25/17 17:53 Resp BP Pulse Ox Assessment & Plan - Assessment and Plan (Free Text) Assessment: Deconditioning TCU CAP Diastolic CHF CAD?? SOB Palpitations Hx of COPD HTN + trponins?? Pleural effusions infiltrate Cardiology Pulmonary NIDDM Thyroid dx Endo Periphereal neuropathy - Date & Time Date: 07/25/17 Time: 22:22
[2017-07-25] MEDS: guaiFENesin 600 mg ER Tab PO SCH (22:52)
[2017-07-26] MEDS: Levalbuterol 0.63 MG/3 ML Inhal Soln UD INH SCH ×2 (08:00→20:00)
[2017-07-26] MEDS: Acetylcysteine 20% Inhal Soln (4ml) INH SCH ×2 (08:00→20:00)
[2017-07-26] MEDS: Enoxaparin 40 mg Syringe SC SCH (08:57)
[2017-07-26] MEDS: guaiFENesin 600 mg ER Tab PO SCH ×2 (08:57→21:09)
[2017-07-26] MEDS: methIMAzole 5 MG TAB PO SCH (08:58)
[2017-07-26] MEDS ORDERED: cefTRIAXone IV 1 gm in Dextros 50 ML BAG IVPB SCH (09:00)
[2017-07-26] MEDS: cefTRIAXone IV 1 gm in Dextros 50 ML IVPB SCH (09:14)
--- NOTE | 2017-07-26 09:59 | CP.PCM.CON ---
History of Present Illness - History of Present Illness History of Present Illness: THE PATIENT IS A 77 YEAR OLD FEMALE WHO WAS RECENTLY ADMITTED TO [facility] WITH MULTIPLE COMPLAINTS INCLUDING SOB, HEARTBURN AND TACHCARDIA. SHE WAS FOUND TO BE IN SINUS TACHYCARDIA, HAVE MILD DIASTOLIC CHF AND BIBASILAR SMALL PLEURAL EFFUSIONS AND BIBASILAR PNEUMONIA. SHE ALSO HAD MILDLY ELEVATED TROPONINS THAT MAY JUST HAVE BEEN FROM THE TACHYCARDIA AND CHF, BUT MYOCARDIAL ISCHEMIA COULD NOT BE RULED OUT. SHE DID WELL ON O2, FUROSEMIDE, METOPROLOL, NITROPASTWE, ASPIRIN AND IV ANTIBIOTICS AND HER SOB HAS IMPROVED AND SHE HAD NO FURTHER TACHYCARDIA OR HEARTBURN. A CARDIAC CATHETERIZATION WAS RECOMMENDED FOR EVALUATION OF HER CORONARY ARTERIES AND TO INSERT A CORONARY STENT IF NEEDED BUT SHE DECLINED IT. SHE ALSO HAS A HISTORY OF HYPERTENSION AND HYPERTHYROIDISM. SHE WAS PRESENTLY DISCHARGED TO TCU FOR SUBACUTE REHAB BECAUSE SHE IS DECONDITIONED AND CARDIOLOGY WAS ASKED TO SEE AND FOLLOW HER. Past Patient History - Past Medical History & Family History Past Medical History?: Yes - Past Social History Smoking Status: Former Smoker - CARDIAC Hx Hypercholesterolemia: Yes Hx Hypertension: Yes Hx Peripheral Edema: Yes - PULMONARY Hx Bronchitis: Yes Hx Pneumonia: Yes - NEUROLOGICAL Hx Neurological Disorder: No - HEENT Hx HEENT Problems: No - RENAL Hx Kidney Stones: Yes - ENDOCRINE/METABOLIC Hx Diabetes Mellitus Type 2: Yes Hx Hyperthyroidism: Yes - HEMATOLOGICAL/ONCOLOGICAL Hx Blood Disorders: No Hx AIDS: No Hx Human Immunodeficiency Virus (HIV): No - INTEGUMENTARY Hx Dermatological Problems: No - MUSCULOSKELETAL/RHEUMATOLOGICAL Hx Falls: No - GASTROINTESTINAL Hx Gastrointestinal Disorders: No - GENITOURINARY/GYNECOLOGICAL Hx Genitourinary Disorders: No - PSYCHIATRIC Hx Psychophysiologic Disorder: No Hx Substance Use: No - SURGICAL HISTORY Hx Appendectomy: Yes - ANESTHESIA Hx Anesthesia: Yes Hx Anesthesia Reactions: No Hx Malignant Hyperthermia: No Meds Allergies/Adverse Reactions: Allergies Allergy/AdvReac Type Severity Reaction Status Date / Time No Known Allergies Allergy Verified 07/25/17 16:13 - Medications Medications: Current Medications Acetylcysteine (Acetylcysteine 20%) 2 ml INH Q12 [facility] Last Admin: 07/26/17 08:00 Dose: 2 ml Aspirin (Ecotrin) 81 mg PO DAILY [facility] Last Admin: 07/26/17 08:57 Dose: 81 mg Enoxaparin Sodium (Lovenox) 40 mg SC DAILY [facility] PRN Reason: Protocol Last Admin: 07/26/17 08:57 Dose: 40 mg Famotidine (Pepcid) 20 mg PO DAILY [facility] Last Admin: 07/26/17 08:58 Dose: 20 mg Furosemide (Lasix) 40 mg PO DAILY [facility] Last Admin: 07/26/17 08:57 Dose: 40 mg Guaifenesin (Mucinex La) 1,200 mg PO Q12 [facility] Last Admin: 07/26/17 08:57 Dose: 1,200 mg Ceftriaxone Sodium (Rocephin Iv 1 Gm Duplex) 50 mls @ 50 mls/hr IVPB DAILY [facility] Last Admin: 07/26/17 09:14 Dose: 50 mls/hr Azithromycin 500 mg/ Sodium (Chloride) 250 mls @ 250 mls/hr IVPB DAILY@2200 [facility] Levalbuterol HCl (Xopenex) 0.63 mg INH Q12 [facility] Last Admin: 07/26/17 08:00 Dose: 0.63 mg Lisinopril (Zestril) 5 mg PO DAILY [facility] Last Admin: 07/26/17 08:57 Dose: 5 mg Methimazole (Tapazole) 5 mg PO DAILY [facility] Last Admin: 07/26/17 08:58 Dose: 5 mg Metoprolol Tartrate (Lopressor) 25 mg PO Q12 [facility] Last Admin: 07/26/17 08:58 Dose: 25 mg Physical Exam - Respiratory Exam Respiratory Exam: Decreased Breath Sounds - Cardiovascular Exam Cardiovascular Exam: REGULAR RHYTHM, +S1, +S2 - Extremities Exam Extremities exam: Positive for: normal inspection Results - Vital Signs Recent Vital Signs: Last Vital Signs Temp Pulse 84 07/26/17 08:58 Resp BP 135/59 L 07/26/17 08:58 Pulse Ox - Labs Labs: Laboratory Results - last 24 hr 07/26/17 07/26/17 05:40 06:39 POC Glucose (mg/dL) 55 L 153 H Assessment & Plan - Assessment and Plan (Free Text) Assessment: BILATERAL PLEURAL EFFUSIONS AND PNEUMONIA-IMPROVING POSSIBLE CAD MILD DIASTOLIC CHF HYPERTENSION HYPERTHYROIDISM Plan: CONTINUE ASPIRIN, LOVENOX, METOPROLOL, FUROSEMIDE, ANTIBIOTICS AND BRONCHODILATORS
--- NOTE | 2017-07-26 17:58 | CP.PCM.PN ---
Subjective - Date & Time of Evaluation Date of Evaluation: 07/26/17 Time of Evaluation: 22:22 - Subjective Subjective: Above noted Objective - Vital Signs/Intake and Output Vital Signs (last 24 hours): Temp Pulse Resp BP Pulse Ox 96.8 F L 82 18 104/58 L 95 07/26/17 15:00 07/26/17 17:06 07/26/17 15:00 07/26/17 15:00 07/26/17 17:06 - Medications Medications: Current Medications Acetylcysteine (Acetylcysteine 20%) 2 ml INH Q12 [facility] Last Admin: 07/26/17 08:00 Dose: 2 ml Aspirin (Ecotrin) 81 mg PO DAILY [facility] Last Admin: 07/26/17 08:57 Dose: 81 mg Enoxaparin Sodium (Lovenox) 40 mg SC DAILY [facility] PRN Reason: Protocol Last Admin: 07/26/17 08:57 Dose: 40 mg Famotidine (Pepcid) 20 mg PO DAILY [facility] Last Admin: 07/26/17 08:58 Dose: 20 mg Furosemide (Lasix) 40 mg PO DAILY [facility] Last Admin: 07/26/17 08:57 Dose: 40 mg Guaifenesin (Mucinex La) 1,200 mg PO Q12 [facility] Last Admin: 07/26/17 08:57 Dose: 1,200 mg Ceftriaxone Sodium (Rocephin Iv 1 Gm Duplex) 50 mls @ 50 mls/hr IVPB DAILY [facility] Last Admin: 07/26/17 09:14 Dose: 50 mls/hr Azithromycin 500 mg/ Sodium (Chloride) 250 mls @ 250 mls/hr IVPB DAILY@2200 [facility] Levalbuterol HCl (Xopenex) 0.63 mg INH Q12 [facility] Last Admin: 07/26/17 08:00 Dose: 0.63 mg Methimazole (Tapazole) 5 mg PO DAILY [facility] Last Admin: 07/26/17 08:58 Dose: 5 mg Metoprolol Tartrate (Lopressor) 25 mg PO Q12 [facility] Last Admin: 07/26/17 08:58 Dose: 25 mg - Respiratory Exam Respiratory Exam: NORMAL BREATHING PATTERN - Cardiovascular Exam Cardiovascular Exam: REGULAR RHYTHM - GI/Abdominal Exam GI & Abdominal Exam: Normal Bowel Sounds Assessment and Plan - Assessment and Plan (Free Text) Assessment: Deconditioning TCU CAP Diastolic CHF CAD?? SOB Palpitations Hx of COPD HTN + trponins?? Pleural effusions infiltrate Cardiology Pulmonary NIDDM Thyroid dx Endo Periphereal neuropathy
[2017-07-26 21:47] VITALS: RESP 20
[2017-07-26] MEDS ORDERED: Azithromycin 500 MG in Sodium Chloride 0.9% 250 ML IVPB SCH (22:00)
[2017-07-27] MEDS: Acetylcysteine 20% Inhal Soln (4ml) INH SCH ×3 (08:35→19:38)
[2017-07-27] MEDS: Levalbuterol 0.63 MG/3 ML Inhal Soln UD INH SCH ×3 (08:36→19:37)
[2017-07-27] MEDS: guaiFENesin 600 mg ER Tab PO SCH ×2 (08:45→21:12)
[2017-07-27] MEDS: methIMAzole 5 MG TAB PO SCH (08:45)
[2017-07-27] MEDS: Enoxaparin 40 mg Syringe SC SCH (08:46)
[2017-07-27] MEDS: cefTRIAXone IV 1 gm in Dextros 50 ML IVPB SCH (08:48)
[2017-07-27] MEDS ORDERED: Chlorhexidine Gluconate 1 APPL/PKT TP ONE (11:48)
--- NOTE | 2017-07-27 13:04 | CP.PCM.CON ---
History of Present Illness - History of Present Illness History of Present Illness: The patient was initially seen in acute medicine where she presented with HARLEY and was found to have bilateral pleural effusions and LLL atelectasis. She did not have any fever, chills or leukocytosis. There was cardiac enzyme elevation with ST segment depression on her initial EKG done in the ER. She has declined further cardiac evaluation at this time, but has improved symptomatically. Her pleural effusion has resolved on the right, but there is residual effusion on the left with left basal consolidation and air bronchograms. She continues to receive antibiotic therapy and aerosol treatments with low dose levalbuterol and acetylcysteine. Her vital signs remain stable and she offers no complaints of shortness of breath, cough or chest discomfort. Review of Systems - Cardiovascular Cardiovascular: Orthopnea - Respiratory Respiratory: Cough, Dyspnea on Exertion - Gastrointestinal Gastrointestinal: Abdominal Pain (epigastric) - Musculoskeletal Musculoskeletal: Tingling Past Patient History - Past Medical History & Family History Past Medical History?: Yes Pertinent Family History: colon cancer, lupus, CAD, diabetes. - Past Social History Smoking Status: Former Smoker Chewing Tobacco Use: No Cigar Use: No Alcohol: Social Drugs: Denies Home Situation {Lives}: Alone - CARDIAC Hx Hypercholesterolemia: Yes Hx Hypertension: Yes Hx Peripheral Edema: Yes - PULMONARY Hx Bronchitis: Yes Hx Pneumonia: Yes - NEUROLOGICAL Hx Neurological Disorder: No - HEENT Hx HEENT Problems: No - RENAL Hx Kidney Stones: Yes - ENDOCRINE/METABOLIC Hx Diabetes Mellitus Type 2: Yes Hx Hyperthyroidism: Yes - HEMATOLOGICAL/ONCOLOGICAL Hx Blood Disorders: No Hx Human Immunodeficiency Virus (HIV): No - INTEGUMENTARY Hx Dermatological Problems: No - MUSCULOSKELETAL/RHEUMATOLOGICAL Hx Falls: No - GASTROINTESTINAL Hx Gastrointestinal Disorders: No - GENITOURINARY/GYNECOLOGICAL Hx Genitourinary Disorders: No - PSYCHIATRIC Hx Psychophysiologic Disorder: No Hx Substance Use: No - SURGICAL HISTORY Hx Appendectomy: Yes - ANESTHESIA Hx Anesthesia: Yes Hx Anesthesia Reactions: No Hx Malignant Hyperthermia: No Meds Allergies/Adverse Reactions: Allergies Allergy/AdvReac Type Severity Reaction Status Date / Time No Known Allergies Allergy Verified 07/25/17 16:13 - Medications Medications: Current Medications Acetylcysteine (Acetylcysteine 20%) 2 ml INH Q12 [facility] Last Admin: 07/27/17 08:37 Dose: 2 ml Aspirin (Ecotrin) 81 mg PO DAILY [facility] Last Admin: 07/27/17 08:45 Dose: 81 mg Enoxaparin Sodium (Lovenox) 40 mg SC DAILY [facility] PRN Reason: Protocol Last Admin: 07/27/17 08:46 Dose: 40 mg Famotidine (Pepcid) 20 mg PO DAILY@2100 [facility] Furosemide (Lasix) 40 mg PO DAILY [facility] Last Admin: 07/27/17 08:44 Dose: 40 mg Guaifenesin (Mucinex La) 1,200 mg PO Q12 [facility] Last Admin: 07/27/17 08:45 Dose: 1,200 mg Ceftriaxone Sodium (Rocephin Iv 1 Gm Duplex) 50 mls @ 50 mls/hr IVPB DAILY [facility] Last Admin: 07/27/17 08:48 Dose: 50 mls/hr Azithromycin 500 mg/ Dextrose 250 mls @ 250 mls/hr IVPB DAILY@2200 [facility] Levalbuterol HCl (Xopenex) 0.63 mg INH Q12 [facility] Last Admin: 07/27/17 08:36 Dose: 0.63 mg Magnesium Hydroxide (Milk Of Magnesia) 30 ml PO DAILY [facility] PRN Reason: Constipation Methimazole (Tapazole) 5 mg PO DAILY [facility] Last Admin: 07/27/17 08:45 Dose: 5 mg Metoprolol Tartrate (Lopressor) 25 mg PO Q12 [facility] Last Admin: 07/27/17 08:45 Dose: 25 mg Physical Exam - Additional Findings Additional findings: Awake, alert, comfortable, ambulating in the hallway using walker. Mood is good, memory intact. No palpable lymphadenopathy. Neck is supple and trachea is midline. Dullness is still present in the left base posteriorly. Breath sounds are diminished bilaterally, especially so in the left base. Dry rales are heard in the bases, L>R. No bronchial breathing or egophony. No audible wheezing. Heart sounds are distant, rhythm is regular. Results - Vital Signs Recent Vital Signs: Last Vital Signs Temp 97.8 F 07/27/17 08:46 Pulse 94 H 07/27/17 08:46 Resp 20 07/27/17 08:46 BP 113/47 L 07/27/17 08:46 Pulse Ox 100 07/27/17 08:46 - Labs Labs: Laboratory Results - last 24 hr 07/26/17 07/26/17 07/27/17 16:31 20:52 05:37 POC Glucose (mg/dL) 108 131 H 86 Assessment & Plan (1) Atelectasis Status: Acute Priority: High Comment: Left lower lobe, basal segments. (2) Pulmonary infiltrate in left lung on CXR Status: Acute Priority: High Comment: Pneumonic consolidation with air bronchograms, retrocardiac area. - Assessment and Plan (Free Text) Plan: Continue aerosol therapy. Add CPT with flutter valve device (not started on acute medicine?). Continue current antibiotic regimen. Repeat CXR PA/Lateral tomorrow. If CXR is improving I will switch her to oral antibiotic. - Date & Time Date: 07/27/17 Time: 13:02
[2017-07-27] MEDS: Magnesium Hydroxide Susp 30 ml UD PO PRN (16:35)
--- NOTE | 2017-07-27 22:43 | CP.PCM.PN ---
Subjective - Date & Time of Evaluation Date of Evaluation: 07/27/17 Time of Evaluation: 22:22 - Subjective Subjective: Pulmonary note appreciated Objective - Vital Signs/Intake and Output Vital Signs (last 24 hours): Temp Pulse Resp BP Pulse Ox 97.0 F L 80 20 130/62 94 L 07/27/17 19:17 07/27/17 21:12 07/27/17 19:17 07/27/17 21:12 07/27/17 19:17 - Medications Medications: Current Medications Acetylcysteine (Acetylcysteine 20%) 2 ml INH Q12 [facility] Last Admin: 07/27/17 19:38 Dose: 2 ml Aspirin (Ecotrin) 81 mg PO DAILY [facility] Last Admin: 07/27/17 08:45 Dose: 81 mg Enoxaparin Sodium (Lovenox) 40 mg SC DAILY [facility] PRN Reason: Protocol Last Admin: 07/27/17 08:46 Dose: 40 mg Famotidine (Pepcid) 20 mg PO DAILY@2100 [facility] Last Admin: 07/27/17 21:13 Dose: 20 mg Furosemide (Lasix) 40 mg PO DAILY [facility] Last Admin: 07/27/17 08:44 Dose: 40 mg Guaifenesin (Mucinex La) 1,200 mg PO Q12 [facility] Last Admin: 07/27/17 21:12 Dose: 1,200 mg Ceftriaxone Sodium (Rocephin Iv 1 Gm Duplex) 50 mls @ 50 mls/hr IVPB DAILY [facility] Last Admin: 07/27/17 08:48 Dose: 50 mls/hr Azithromycin 500 mg/ Dextrose 250 mls @ 250 mls/hr IVPB DAILY@2200 [facility] Last Admin: 07/27/17 21:14 Dose: 250 mls/hr Levalbuterol HCl (Xopenex) 0.63 mg INH Q12 [facility] Last Admin: 07/27/17 19:37 Dose: 0.63 mg Magnesium Hydroxide (Milk Of Magnesia) 30 ml PO DAILY [facility] PRN Reason: Constipation Last Admin: 07/27/17 16:35 Dose: 30 ml Methimazole (Tapazole) 5 mg PO DAILY [facility] Last Admin: 07/27/17 08:45 Dose: 5 mg Metoprolol Tartrate (Lopressor) 25 mg PO Q12 [facility] Last Admin: 07/27/17 21:12 Dose: 25 mg - Respiratory Exam Respiratory Exam: NORMAL BREATHING PATTERN - Cardiovascular Exam Cardiovascular Exam: REGULAR RHYTHM - GI/Abdominal Exam GI & Abdominal Exam: Normal Bowel Sounds Assessment and Plan - Assessment and Plan (Free Text) Assessment: Deconditioning TCU SOB Palpitations CAP/ COPD HTN Diastolic CHF? CAD?? + trponins?? Cont ABX Cardiology Pulmonary NIDDM Thyroid dx Endo Periphereal neuropathy? Vit D deficiency
[2017-07-28] MEDS: Acetylcysteine 20% Inhal Soln (4ml) INH SCH ×2 (07:26→19:27)
[2017-07-28] MEDS: Levalbuterol 0.63 MG/3 ML Inhal Soln UD INH SCH ×2 (07:27→19:27)
[2017-07-28 08:02] LABS: BASO # 0.1 K/uL (0.0-0.2); BASO % 1.1 % (0.0-2.0); EOS # 0.2 K/uL (0.0-0.7); EOS % 4.2 % (0.0-4.0); HEMATOCRIT 29.6 % (34.0-47.0); LYMPH # 0.8 K/uL (1.0-4.3); LYMPH % 16.1 % (20.0-40.0); MEAN CELL VOLUME 86.3 fl (81.0-99.0); MEAN CORPUSCULAR HEMOGLOBIN 29.4 pg (27.0-31.0); MEAN PLATELET VOLUME 8.1 fl (7.2-11.7); MONO # 0.7 K/uL (0.0-0.8); MONO % 13.9 % (0.0-10.0); NEUT # 3.1 K/uL (1.8-7.0); NEUT % 64.7 % (50.0-75.0); NRBC % 0.1 % (0.0-0.0); RED CELL DISTRIBUTION WIDTH 14.2 % (11.5-14.5); WHITE BLOOD COUNT 4.9 K/uL (4.8-10.8)
[2017-07-28 08:25] LABS: BLOOD UREA NITROGEN 36 mg/dl (7-17); CALCIUM 9.2 mg/dL (8.4-10.2); CARBON DIOXIDE 26 mmol/L (22-30); CHLORIDE 106 mmol/L (98-107); GFR AFRICAN-AMERICAN > 60; GLUCOSE,RANDOM 108 mg/dL (65-105); SODIUM 143 mmol/l (132-148)
[2017-07-28] MEDS: Enoxaparin 40 mg Syringe SC SCH (08:31)
[2017-07-28] MEDS: guaiFENesin 600 mg ER Tab PO SCH ×2 (08:33→21:32)
[2017-07-28] MEDS: methIMAzole 5 MG TAB PO SCH (08:33)
[2017-07-28] MEDS: cefTRIAXone IV 1 gm in Dextros 50 ML IVPB SCH (08:40)
--- NOTE | 2017-07-28 15:29 | CP.PCM.PN ---
Subjective - Date & Time of Evaluation Date of Evaluation: 07/28/17 Time of Evaluation: 22:22 - Subjective Subjective: CXR done Objective - Vital Signs/Intake and Output Vital Signs (last 24 hours): Temp Pulse Resp BP Pulse Ox 97.2 F L 88 20 146/68 100 07/28/17 08:00 07/28/17 08:32 07/28/17 08:00 07/28/17 08:32 07/28/17 08:00 - Medications Medications: Current Medications Acetylcysteine (Acetylcysteine 20%) 2 ml INH Q12 [facility] Last Admin: 07/28/17 07:26 Dose: 2 ml Aspirin (Ecotrin) 81 mg PO DAILY [facility] Last Admin: 07/28/17 08:32 Dose: 81 mg Enoxaparin Sodium (Lovenox) 40 mg SC DAILY [facility] PRN Reason: Protocol Last Admin: 07/28/17 08:31 Dose: 40 mg Famotidine (Pepcid) 20 mg PO DAILY@2100 [facility] Last Admin: 07/27/17 21:13 Dose: 20 mg Furosemide (Lasix) 40 mg PO DAILY [facility] Last Admin: 07/28/17 08:32 Dose: 40 mg Guaifenesin (Mucinex La) 1,200 mg PO Q12 [facility] Last Admin: 07/28/17 08:33 Dose: 1,200 mg Ceftriaxone Sodium (Rocephin Iv 1 Gm Duplex) 50 mls @ 50 mls/hr IVPB DAILY [facility] Last Admin: 07/28/17 08:40 Dose: 50 mls/hr Azithromycin 500 mg/ Dextrose 250 mls @ 250 mls/hr IVPB DAILY@2200 [facility] Last Admin: 07/27/17 21:14 Dose: 250 mls/hr Levalbuterol HCl (Xopenex) 0.63 mg INH Q12 [facility] Last Admin: 07/28/17 07:27 Dose: 0.63 mg Magnesium Hydroxide (Milk Of Magnesia) 30 ml PO DAILY [facility] PRN Reason: Constipation Last Admin: 07/27/17 16:35 Dose: 30 ml Methimazole (Tapazole) 5 mg PO DAILY [facility] Last Admin: 07/28/17 08:33 Dose: 5 mg Metoprolol Tartrate (Lopressor) 25 mg PO Q12 [facility] Last Admin: 07/28/17 08:32 Dose: 25 mg - Labs Labs: 07/28/17 07:30 07/28/17 07:30 - Respiratory Exam Respiratory Exam: NORMAL BREATHING PATTERN - Cardiovascular Exam Cardiovascular Exam: Tachycardia - GI/Abdominal Exam GI & Abdominal Exam: Normal Bowel Sounds Assessment and Plan - Assessment and Plan (Free Text) Assessment: Deconditioning TCU SOB Palpitations CAP/ COPD HTN Diastolic CHF? CAD?? + trponins?? Cont ABX Cardiology Pulmonary NIDDM Thyroid dx Endo Periphereal neuropathy? Vit D deficiency (12)
--- NOTE | 2017-07-28 16:15 | RAD ---
HISTORY: pneumonia COMPARISON: Comparison made with chest radiograph dated 07/24/2017. TECHNIQUE: Chest PA and lateral FINDINGS: LUNGS: Re- demonstrated are mild pulmonary vascular congestive changes with patchy at opacity in the left lower lobe that may represent some combination of atelectasis/ infiltrate and small effusion. Minor right basilar atelectasis and tiny right effusion PLEURA: No significant pleural effusion identified. No pneumothorax apparent. CARDIOVASCULAR: Heart appears borderline/mildly enlarged. OSSEOUS STRUCTURES: No significant abnormalities. VISUALIZED UPPER ABDOMEN: Normal. OTHER FINDINGS: None. IMPRESSION: Findings most consistent with mild central pulmonary vascular congestive changes with patchy left lower lobe atelectasis and or infiltrate and small left effusion. Minor right basilar atelectasis and tiny right effusion.
[2017-07-28] MEDS: Magnesium Hydroxide Susp 30 ml UD PO PRN (21:31)
[2017-07-29] MEDS: Levalbuterol 0.63 MG/3 ML Inhal Soln UD INH SCH ×2 (07:43→19:18)
[2017-07-29] MEDS: Acetylcysteine 20% Inhal Soln (4ml) INH SCH ×2 (07:43→19:17)
[2017-07-29] MEDS: guaiFENesin 600 mg ER Tab PO SCH ×2 (08:21→21:15)
[2017-07-29] MEDS: methIMAzole 5 MG TAB PO SCH (08:21)
[2017-07-29] MEDS: Enoxaparin 40 mg Syringe SC SCH (08:21)
[2017-07-29] MEDS: cefTRIAXone IV 1 gm in Dextros 50 ML IVPB SCH (08:22)
--- NOTE | 2017-07-29 09:41 | CP.PCM.PN ---
Subjective - Date & Time of Evaluation Date of Evaluation: 07/29/17 Time of Evaluation: 09:39 - Subjective Subjective: Clinically appears stable. Remains afebrile w/o leukocytosis. Followup CXR shows some persistent retro-cardiac density with air-bronchogram. There is likely small pleural effusions bilaterally, and venous congested pattern is still present. Legionella, Strep and Mycoplasma are negative. She still has minimal sputum expectoration. On auscultation there is still diminished breath sounds with dry rales in the left base posteriorly. There are no wheezes or bronchial breath sounds. Will discontinue parenteral antibiotics and begin PO Omnicef 300MG BID. Followup chest x-ray is requested for Saturday as an outpatient. If she fails to clear this infiltrate in the LLL she will ultimately need FFB when cardiac issues have been settled. Objective - Vital Signs/Intake and Output Vital Signs (last 24 hours): Temp Pulse Resp BP Pulse Ox 97.1 F L 76 20 141/56 L 96 07/29/17 08:10 07/29/17 08:21 07/29/17 08:10 07/29/17 08:21 07/29/17 08:10 - Medications Medications: Current Medications Acetylcysteine (Acetylcysteine 20%) 2 ml INH Q12 [facility] Last Admin: 07/29/17 07:43 Dose: 2 ml Aspirin (Ecotrin) 81 mg PO DAILY [facility] Last Admin: 07/29/17 08:21 Dose: 81 mg Famotidine (Pepcid) 20 mg PO DAILY@2100 [facility] Last Admin: 07/28/17 21:32 Dose: 20 mg Furosemide (Lasix) 40 mg PO DAILY [facility] Last Admin: 07/29/17 08:21 Dose: 40 mg Guaifenesin (Mucinex La) 1,200 mg PO Q12 [facility] Last Admin: 07/29/17 08:21 Dose: 1,200 mg Ceftriaxone Sodium (Rocephin Iv 1 Gm Duplex) 50 mls @ 50 mls/hr IVPB DAILY [facility] Last Admin: 07/29/17 08:22 Dose: 50 mls/hr Azithromycin 500 mg/ Dextrose 250 mls @ 250 mls/hr IVPB DAILY@2200 [facility] Last Admin: 07/28/17 21:30 Dose: 250 mls/hr Levalbuterol HCl (Xopenex) 0.63 mg INH Q12 [facility] Last Admin: 07/29/17 07:43 Dose: 0.63 mg Magnesium Hydroxide (Milk Of Magnesia) 30 ml PO DAILY PRN PRN Reason: Constipation Last Admin: 07/28/17 21:31 Dose: 30 ml Methimazole (Tapazole) 5 mg PO DAILY [facility] Last Admin: 07/29/17 08:21 Dose: 5 mg Metoprolol Tartrate (Lopressor) 25 mg PO Q12 [facility] Last Admin: 07/29/17 08:21 Dose: 25 mg - Labs Labs: 07/28/17 07:30 07/28/17 07:30 Assessment and Plan (1) Atelectasis Status: Acute (2) Pulmonary infiltrate in left lung on CXR Status: Acute (3) Pneumonia Status: Acute
--- NOTE | 2017-07-29 11:27 | CP.PCM.PN ---
Subjective - Date & Time of Evaluation Date of Evaluation: 07/29/17 Time of Evaluation: 09:45 - Subjective Subjective: NO CHEST PAIN OR PALPITATIONS BREATHING BETTER Objective - Vital Signs/Intake and Output Vital Signs (last 24 hours): Temp Pulse Resp BP Pulse Ox 97.1 F L 76 20 141/56 L 96 07/29/17 08:10 07/29/17 08:21 07/29/17 08:10 07/29/17 08:21 07/29/17 08:10 - Medications Medications: Current Medications Acetylcysteine (Acetylcysteine 20%) 2 ml INH Q12 [facility] Last Admin: 07/29/17 07:43 Dose: 2 ml Aspirin (Ecotrin) 81 mg PO DAILY [facility] Last Admin: 07/29/17 08:21 Dose: 81 mg Cefdinir (Omnicef) 300 mg PO BID [facility] Famotidine (Pepcid) 20 mg PO DAILY@2100 [facility] Last Admin: 07/28/17 21:32 Dose: 20 mg Furosemide (Lasix) 40 mg PO DAILY [facility] Last Admin: 07/29/17 08:21 Dose: 40 mg Guaifenesin (Mucinex La) 1,200 mg PO Q12 [facility] Last Admin: 07/29/17 08:21 Dose: 1,200 mg Levalbuterol HCl (Xopenex) 0.63 mg INH Q12 [facility] Last Admin: 07/29/17 07:43 Dose: 0.63 mg Magnesium Hydroxide (Milk Of Magnesia) 30 ml PO DAILY PRN PRN Reason: Constipation Last Admin: 07/28/17 21:31 Dose: 30 ml Methimazole (Tapazole) 5 mg PO DAILY [facility] Last Admin: 07/29/17 08:21 Dose: 5 mg Metoprolol Tartrate (Lopressor) 25 mg PO Q12 [facility] Last Admin: 07/29/17 08:21 Dose: 25 mg - Labs Labs: 07/28/17 07:30 07/28/17 07:30 - Respiratory Exam Respiratory Exam: Decreased Breath Sounds - Cardiovascular Exam Cardiovascular Exam: REGULAR RHYTHM, +S1, +S2 - Extremities Exam Extremities Exam: Normal Inspection Assessment and Plan - Assessment and Plan (Free Text) Assessment: DIASTOLIC CHF-TREATED POSSIBLE CAD PNEUMONIA HYPERTENSION Plan: CONTINUE ANTIBIOTICS, METOPROLOL, ASPIRIN, FUROSEMIDE FOR OUT PATIENT PHARMACOLOGICAL STRESS TEST
[2017-07-29] MEDS: Cefdinir 300 MG CAP PO SCH (16:53)
--- NOTE | 2017-07-29 21:02 | CP.PCM.PN ---
Subjective - Date & Time of Evaluation Date of Evaluation: 07/29/17 Time of Evaluation: 22:22 - Subjective Subjective: Cardiology and Pulmonary notes appreciated Objective - Vital Signs/Intake and Output Vital Signs (last 24 hours): Temp Pulse Resp BP Pulse Ox 97.0 F L 72 20 135/57 L 98 07/29/17 16:12 07/29/17 16:12 07/29/17 16:12 07/29/17 16:12 07/29/17 16:12 - Medications Medications: Current Medications Acetylcysteine (Acetylcysteine 20%) 2 ml INH Q12 [facility] Last Admin: 07/29/17 19:17 Dose: 2 ml Aspirin (Ecotrin) 81 mg PO DAILY [facility] Last Admin: 07/29/17 08:21 Dose: 81 mg Cefdinir (Omnicef) 300 mg PO BID [facility] Last Admin: 07/29/17 16:53 Dose: 300 mg Famotidine (Pepcid) 20 mg PO DAILY@2100 [facility] Last Admin: 07/28/17 21:32 Dose: 20 mg Furosemide (Lasix) 40 mg PO DAILY [facility] Last Admin: 07/29/17 08:21 Dose: 40 mg Guaifenesin (Mucinex La) 1,200 mg PO Q12 [facility] Last Admin: 07/29/17 08:21 Dose: 1,200 mg Levalbuterol HCl (Xopenex) 0.63 mg INH Q12 [facility] Last Admin: 07/29/17 19:18 Dose: 0.63 mg Magnesium Hydroxide (Milk Of Magnesia) 30 ml PO DAILY PRN PRN Reason: Constipation Last Admin: 07/28/17 21:31 Dose: 30 ml Methimazole (Tapazole) 5 mg PO DAILY [facility] Last Admin: 07/29/17 08:21 Dose: 5 mg Metoprolol Tartrate (Lopressor) 25 mg PO Q12 [facility] Last Admin: 07/29/17 08:21 Dose: 25 mg - Labs Labs: 07/28/17 07:30 07/28/17 07:30 - Respiratory Exam Respiratory Exam: NORMAL BREATHING PATTERN - Cardiovascular Exam Cardiovascular Exam: REGULAR RHYTHM - GI/Abdominal Exam GI & Abdominal Exam: Normal Bowel Sounds Assessment and Plan - Assessment and Plan (Free Text) Assessment: Deconditioning TCU SOB Palpitations CAP/ COPD HTN Diastolic CHF? CAD?? + trponins?? Cont ABX Cardiology outpt stress Pulmonary repeat CXR Saturday NIDDM Thyroid dx Endo Periphereal neuropathy? Vit D deficiency (12)
[2017-07-30] MEDS: Acetylcysteine 20% Inhal Soln (4ml) INH SCH ×2 (07:33→09:40)
[2017-07-30] MEDS: Levalbuterol 0.63 MG/3 ML Inhal Soln UD INH SCH ×2 (07:33→09:40)
[2017-07-30] MEDS: guaiFENesin 600 mg ER Tab PO SCH (08:11)
[2017-07-30 08:12] VITALS: PULSE 75; TEMP 97.9; O2SAT 100
[2017-07-30] MEDS: Cefdinir 300 MG CAP PO SCH (08:12)
[2017-07-30] MEDS: Magnesium Hydroxide Susp 30 ml UD PO PRN (08:13)
[2017-07-30] MEDS: methIMAzole 5 MG TAB PO SCH (08:13)
[2017-07-30 08:14] VITALS: BP 126/52
[2017-07-30 11:31] LABS: HEMATOCRIT 32.2 % (34.0-47.0); MEAN CELL VOLUME 87.5 fl (81.0-99.0); MEAN CORPUSCULAR HGB CONC 33.2 g/dL (33.0-37.0); RED CELL DISTRIBUTION WIDTH 14.5 % (11.5-14.5); WHITE BLOOD COUNT 4.9 K/uL (4.8-10.8)
[2017-07-30 11:40] LABS: IRON 33 ug/dL (37-170)
--- NOTE | 2017-07-30 11:44 | CP.PCM.PN ---
Subjective - Date & Time of Evaluation Date of Evaluation: 07/30/17 Time of Evaluation: 07:00 - Subjective Subjective: NO CHEST PAIN BREATHING BETTER Objective - Vital Signs/Intake and Output Vital Signs (last 24 hours): Temp Pulse Resp BP Pulse Ox 97.9 F 75 20 126/52 L 100 07/30/17 08:11 07/30/17 08:12 07/30/17 08:11 07/30/17 08:13 07/30/17 08:11 - Medications Medications: Current Medications Acetylcysteine (Acetylcysteine 20%) 2 ml INH Q12 [facility] Last Admin: 07/30/17 09:40 Dose: Not Given Aspirin (Ecotrin) 81 mg PO DAILY [facility] Last Admin: 07/30/17 08:12 Dose: 81 mg Cefdinir (Omnicef) 300 mg PO BID [facility] Last Admin: 07/30/17 08:12 Dose: 300 mg Famotidine (Pepcid) 20 mg PO DAILY@2100 [facility] Last Admin: 07/29/17 21:15 Dose: 20 mg Furosemide (Lasix) 40 mg PO DAILY [facility] Last Admin: 07/30/17 08:13 Dose: 40 mg Guaifenesin (Mucinex La) 1,200 mg PO Q12 [facility] Last Admin: 07/30/17 08:11 Dose: 1,200 mg Levalbuterol HCl (Xopenex) 0.63 mg INH Q12 [facility] Last Admin: 07/30/17 09:40 Dose: Not Given Magnesium Hydroxide (Milk Of Magnesia) 30 ml PO DAILY PRN PRN Reason: Constipation Last Admin: 07/30/17 08:13 Dose: 30 ml Methimazole (Tapazole) 5 mg PO DAILY [facility] Last Admin: 07/30/17 08:13 Dose: 5 mg Metoprolol Tartrate (Lopressor) 25 mg PO Q12 [facility] Last Admin: 07/30/17 08:12 Dose: 25 mg - Labs Labs: 07/30/17 11:10 07/28/17 07:30 - Respiratory Exam Respiratory Exam: Decreased Breath Sounds - Cardiovascular Exam Cardiovascular Exam: REGULAR RHYTHM, +S1 - Extremities Exam Extremities Exam: Normal Inspection Assessment and Plan - Assessment and Plan (Free Text) Assessment: DIASTOLIC CHF-TREATED POSSIBLE CAD HYPERTENSION Plan: CONTINUE ASPIRIN, METOPROLOL AND FUROSEMIDE FOR PHARMACOLOGICAL STRESS TEST IN NEAR FUTURE
[2017-07-30 17:44] LABS: FOLATE 10.2 ng/mL
== END 2017-07-30 13:00 | disposition home or self-care (01) | DRG 194 ==
LOC: H.TCU 16:19
PROVIDERS: ADMIT Family Medicine Geriatric Medicine; ATTEND Family Medicine Geriatric Medicine
PROC: F07Z9FZ Gait Training/Functional Ambulation Treatment using Assistive, Adaptive, Supportive or Protective Equipment (ICD-10-PCS; principal; 2017-07-25)
PROC: F08Z1FZ Dressing Techniques Treatment using Assistive, Adaptive, Supportive or Protective Equipment (ICD-10-PCS; 2017-07-25)
PROC: F07L6FZ Therapeutic Exercise Treatment of Musculoskeletal System - Lower Back / Lower Extremity using Assistive, Adaptive, Supportive or Protective Equipment (ICD-10-PCS; 2017-07-25)
PROC: 5A0955Z Assistance with Respiratory Ventilation, Greater than 96 Consecutive Hours (ICD-10-PCS; 2017-07-25)
DX: J18.9 Pneumonia, unspecified organism (principal); J44.0 Chronic obstructive pulmonary disease with (acute) lower respiratory infection; E11.42 Type 2 diabetes mellitus with diabetic polyneuropathy; I11.0 Hypertensive heart disease with heart failure; I50.32 Chronic diastolic (congestive) heart failure; J98.11 Atelectasis; E05.90 Thyrotoxicosis, unspecified without thyrotoxic crisis or storm; E78.00 Pure hypercholesterolemia, unspecified; Z87.891 Personal history of nicotine dependence; E55.9 Vitamin D deficiency, unspecified; I25.10 Atherosclerotic heart disease of native coronary artery without angina pectoris

== ENCOUNTER 2017-08-15 14:51 | Inpatient (IN) | payer MEDICARE ==
[2017-08-15 14:53] VITALS: BMI 26.5
--- NOTE | 2017-08-15 16:10 | ED PDOC ---
HPI: SOB/CHF/COPD Time Seen by Provider: 08/15/17 15:11 Chief Complaint (Nursing): Shortness Of Breath Chief Complaint (Provider): Shortness Of Breath History Per: Patient History/Exam Limitations: no limitations Onset/Duration Of Symptoms: Days (x1.5 weeks) Current Symptoms Are (Timing): Still Present Additional Complaint(s): Pat Philip is a 77 year old female who presents to the ED complaining of intermittent shortness of breath x1.5 weeks. Patient states she was recently hospitalized due to bilateral pleural effusions and pneumonia. States she saw her PMD today who advised she present to the ED for further evaluation. Denies any coughing, fever, leg swelling, or chest pain. Confirms epigastric pain which has been intermittent with her shortness of breath. PMD: Dr. John Young Past Medical History Reviewed: Historical Data, Nursing Documentation, Vital Signs Vital Signs: Last Vital Signs Temp 96.8 F L 08/15/17 14:57 Pulse 75 08/15/17 14:57 Resp 16 08/15/17 14:57 BP 166/77 H 08/15/17 14:57 Pulse Ox 90 L 08/15/17 16:48 - Medical History PMH: Bronchitis, Diabetes, HTN, Hypercholesterolemia, Hyperthyroidism, Kidney Stones, Peripheral Edema, Pneumonia, Chronic Kidney Disease Denies: HIV - Surgical History Surgical History: Appendectomy - Family History Family History: States: Unknown Family Hx - Home Medications Home Medications: Ambulatory Orders Medication Instructions Recorded Aspirin [Ecotrin] 81 mg PO DAILY #14 tabec 09/11/16 Famotidine [Pepcid] 20 mg PO DAILY 07/22/17 methIMAzole [Tapazole] 5 mg PO DAILY 07/22/17 Metoprolol Tartrate [Lopressor] 25 mg PO Q12 #60 tab 07/24/17 Furosemide [Lasix] 40 mg PO DAILY tab 07/25/17 - Allergies Allergies/Adverse Reactions: Allergies Allergy/AdvReac Type Severity Reaction Status Date / Time No Known Allergies Allergy Verified 07/25/17 16:13 Review of Systems ROS Statement: Except As Marked, All Systems Reviewed And Found Negative (and as per HPI) Constitutional: Negative for: Fever Cardiovascular: Positive for: Palpitations, Light Headedness. Negative for: Chest Pain Respiratory: Positive for: Shortness of Breath, SOB with Exertion. Negative for : Cough Gastrointestinal: Positive for: Abdominal Pain (epigastric) Musculoskeletal: Negative for: Leg Pain Physical Exam - Reviewed Nursing Documentation Reviewed: Yes Vital Signs Reviewed: Yes - Physical Exam Appears: Positive for: In Acute Distress (respiratory distress and tired appearing) Head Exam: Positive for: ATRAUMATIC, NORMOCEPHALIC Skin: Positive for: Dry Eye Exam: Positive for: EOMI. Negative for: Conjunctival injection ENT: Positive for: Pharynx Is (clear) Neck: Positive for: Painless ROM, Supple Cardiovascular/Chest: Positive for: Regular Rate, Rhythm, Chest Non Tender. Negative for: Murmur Respiratory: Positive for: Decreased Breath Sounds (LEFT side), Respiratory Distress. Negative for: Accessory Muscle Use, Wheezing Gastrointestinal/Abdominal: Positive for: Soft, Tenderness (mild epigastric ttp) Back: Positive for: Normal Inspection. Negative for: Decreased ROM Extremity: Positive for: Normal ROM. Negative for: Pedal Edema, Deformity Lymphatic: Negative for: Adenopathy Neurologic/Psych: Positive for: Alert. Negative for: Motor/Sensory Deficits - Laboratory Results Result Diagrams: 08/15/17 16:00 08/15/17 16:00 - ECG O2 Sat by Pulse Oximetry: 90 (NC) Pulse Ox Interpretation: Abnormal Medical Decision Making Medical Decision Making: Time: 15:33 Initial Impression: Shortness of breath. Differential diagnoses include, but are not limited to pleural effusions, PE, anemia, and electrolyte deficiencies Plan: --ABG --Venous blood gas shock panel --EKG --B-Type natriuretic peptide --CMP --Magnesium --Phosphorus --Thyroid Simulation --ED Urine dipstick --CBC w/ differential --Partial thromboplastin --PTT --Portable Chest X-Ray --Blood culture --IV Insertion --Reevaluation Time: 16:12 Portable Chest X-Ray Findings: Lungs: Opacity at left base is suspicious for possible underlying atelectasis or infiltrate with none on the right. Pleura: No right pleural effusion. Mild left pleural effusion not excluded. No pneumothorax bilaterally. Cardiovascular: Cardiac silhouette remains prominent with pulmonary vascular derangement appreciated suspicious for active CHF. Osseous Structures: No significant abnormalities. Visualized Upper Abdomen: Normal. Other findings: None. Impression: Findings most suggestive of active CHF with underlying basilar airspace disease/ pleural effusion suggested. None is seen at the right. On my review of CXR, LEFT pleural effusion appears worse than previous cxr 2016 Labs demonstrate marked hypoxia (pt was on O2 2L NC) and elevated probnp, otherwise no emergently significant lab abnormalities. Increased NC to 6L. PATTI Young PMD for admission for pleural effusion and hypoxia PATTI [facility] PATTI pt findings and plan of care. Scribe Attestation: Documented by Ervin Mena acting as a scribe for Saniya De La Cruz MD. Scribe Attestation: All medical record entries made by the Scribe were at my direction and personally dictated by me. I have reviewed the chart and agree that the record accurately reflects my personal performance of the history, physical exam, medical decision making, and the department course for this patient. I have also personally directed, reviewed, and agree with the discharge instructions and disposition. Disposition - Clinical Impression Clinical Impression: Pleural effusion, Hypoxia Counseled Patient/Family Regarding: Studies Performed, Diagnosis - Disposition Disposition Time: 17:00 Condition: FAIR - Pt Status Changed To: Hospital Disposition Of: Inpatient - Admit Certification Admit to Inpatient:: After my assessment, the patient will require hospitalization for at least two midnights. This is because of the severity of symptoms shown, intensity of services needed, and/or the medical risk in this patient being treated as an outpatient. - POA Present On Arrival: None
--- NOTE | 2017-08-15 16:14 | RAD ---
HISTORY: sob pleural effusion COMPARISON: Chest radiographs 08/02/2017. FINDINGS: LUNGS: Opacity at left base is suspicious for possible underlying atelectasis or infiltrate with none on the right. PLEURA: No right pleural effusion. Mild left pleural effusion not excluded. No pneumothorax bilaterally. CARDIOVASCULAR: Cardiac silhouette remains prominent with pulmonary vascular derangement appreciated suspicious for active CHF. OSSEOUS STRUCTURES: No significant abnormalities. VISUALIZED UPPER ABDOMEN: Normal. OTHER FINDINGS: None. IMPRESSION: Findings most suggestive of active CHF with underlying basilar airspace disease/pleural effusion suggested. None is seen at the right.
[2017-08-15 16:16] LABS: VENOUS BLOOD GAS BASE EXCESS -0.6 mmol/L (0.0-2.0); VENOUS BLOOD GAS PCO2 43 mmHg (40-60); VENOUS BLOOD PH 7.37 (7.32-7.43)
[2017-08-15 16:27] LABS: ABG ALLEN TEST YES; ARTERIAL BLOOD GAS HCO3 23.9 mmol/L (21-28); ARTERIAL BLOOD GAS O2 CONTENT 14.2 ML/dL (15-23); ARTERIAL BLOOD GAS PH 7.47 (7.35-7.45); ARTERIAL BLOOD GAS PO2 56 mm/Hg (80-100); ARTERIAL BLOOD HGB O2 SAT 89.9 % (95.0-98.0); HHB 4.9 % (0.0-5.0); METHEMOGLOBIN 2.2 % (0.0-3.0)
[2017-08-15 16:38] LABS: BASO # 0.1 K/uL (0.0-0.2); EOS # 0.1 K/uL (0.0-0.7); EOS % 1.1 % (0.0-4.0); HEMATOCRIT 34.5 % (34.0-47.0); LYMPH # 0.8 K/uL (1.0-4.3); LYMPH % 12.9 % (20.0-40.0); MEAN CELL VOLUME 86.8 fl (81.0-99.0); MEAN CORPUSCULAR HEMOGLOBIN 28.1 pg (27.0-31.0); MEAN CORPUSCULAR HGB CONC 32.4 g/dL (33.0-37.0); MEAN PLATELET VOLUME 8.8 fl (7.2-11.7); MONO # 0.5 K/uL (0.0-0.8); MONO % 8.6 % (0.0-10.0); NEUT # 4.5 K/uL (1.8-7.0); NEUT % 76.4 % (50.0-75.0); RED CELL DISTRIBUTION WIDTH 15.2 % (11.5-14.5); WHITE BLOOD COUNT 5.9 K/uL (4.8-10.8)
[2017-08-15 16:59] LABS: ALB/GLOB RATIO 1.3 (1.0-2.1); ALKALINE PHOSPHATASE 100 U/L (38-126); ALT/SGPT 22 U/L (9-52); AST/SGOT 32 U/L (14-36); BILIRUBIN,TOTAL 0.9 mg/dl (0.2-1.3); BLOOD UREA NITROGEN 29 mg/dl (7-17); CALCIUM 9.8 mg/dL (8.4-10.2); CARBON DIOXIDE 22 mmol/L (22-30); CHLORIDE 106 mmol/L (98-107); GFR AFRICAN-AMERICAN > 60; GLUCOSE,RANDOM 135 mg/dL (65-105); MAGNESIUM 1.7 MG/DL (1.6-2.3); PHOSPHOROUS 3.6 mg/dl (2.5-4.5); POTASSIUM 4.8 MMOL/L (3.6-5.0); SODIUM 140 mmol/l (132-148); TOTAL PROTEIN 7.5 G/DL (6.3-8.2)
[2017-08-15 17:13] LABS: PARTIAL THROMBOPLASTIN TIME 31.9 Seconds (25.6-37.1)
[2017-08-15 17:25] LABS: THYROID STIMULATING HORMONE 2.62 mIU/ML (0.46-4.68)
[2017-08-16 06:57] LABS: ALB/GLOB RATIO 1.2 (1.0-2.1); ALKALINE PHOSPHATASE 89 U/L (38-126); ALT/SGPT 24 U/L (9-52); AST/SGOT 14 U/L (14-36); BILIRUBIN,TOTAL 0.7 mg/dl (0.2-1.3); BLOOD UREA NITROGEN 27 mg/dl (7-17); CALCIUM 9.4 mg/dL (8.4-10.2); CARBON DIOXIDE 24 mmol/L (22-30); CHLORIDE 106 mmol/L (98-107); CHOLESTEROL 171 mg/dL (0-199); GFR AFRICAN-AMERICAN > 60; GLUCOSE,RANDOM 149 mg/dL (65-105); MAGNESIUM 1.6 MG/DL (1.6-2.3); POTASSIUM 4.1 MMOL/L (3.6-5.0); SODIUM 139 mmol/l (132-148); T4 7.59 ug/dl (5.5-11.0); TOTAL PROTEIN 6.5 G/DL (6.3-8.2)
[2017-08-16] MEDS: methIMAzole 5 MG TAB PO SCH (08:44)
[2017-08-16] MEDS: Insulin Regular 100 units/ml SC SCH ×2 (08:45→17:01)
[2017-08-16] MEDS ORDERED: Enoxaparin 30 mg Syringe SC SCH (09:00)
--- NOTE | 2017-08-16 10:28 | CP.PCM.CON ---
History of Present Illness - History of Present Illness History of Present Illness: THE PATIENT IS A 77 YEAR OLD FEMALE WITH A HISTORY OF RECENT ADMISSIONS FOR BILATERAL SMALL PLEURAL EFFUSIONS AND PNEUMONIA WELL MILD DIASTOLIC CHF TREATED IV ANTIBIOTICS AND DIURETICS. SHE ALSO HAD A HISTORY OF HYPERTENSION AND HYPERTHYROIDISM. SHE HAD SINUS TACHYCARDIA AND HAD MILDLY ELEVATED TROPONINS ON HER LAST ADMISSION AND A CARDIAC CATHETERIZATION WAS RECOMMENDED BUT SHE DECLINED. SHE WAS DISCHARGED TO TCU AND THEN HOME. SHE SAW DR HOPKINS IN THE OFFICE YESTERDAY AND SHE STATED THAT SHE HAD EXERTIONAL DYSPNEA SO HE ADVISED HER TO GO TO THE ER AND THE CXR WAS READ CONGESTION. SHE WAS ADMITTED AND CARDIOLOGY AND PULMONARY WERE ASKED TO SEE HER. Past Patient History - Infectious Disease Hx of Infectious Diseases: None - Past Medical History & Family History Past Medical History?: Yes - Past Social History Smoking Status: Former Smoker - CARDIAC Hx Cardiac Disorders: Yes Hx Hypercholesterolemia: Yes Hx Hypertension: Yes Hx Peripheral Edema: Yes - PULMONARY Hx Respiratory Disorders: Yes Hx Bronchitis: Yes Hx Pneumonia: Yes Other/Comment: pleural effusions - NEUROLOGICAL Hx Neurological Disorder: No - HEENT Hx HEENT Problems: No - RENAL Hx Chronic Kidney Disease: Yes Hx Kidney Stones: Yes (kidney stone removal) - ENDOCRINE/METABOLIC Hx Endocrine Disorders: Yes Hx Diabetes Mellitus Type 2: Yes Hx Hyperthyroidism: Yes - HEMATOLOGICAL/ONCOLOGICAL Hx Blood Disorders: No Hx Human Immunodeficiency Virus (HIV): No - INTEGUMENTARY Hx Dermatological Problems: No - MUSCULOSKELETAL/RHEUMATOLOGICAL Hx Musculoskeletal Disorders: No Hx Falls: No - GASTROINTESTINAL Hx Gastrointestinal Disorders: No - GENITOURINARY/GYNECOLOGICAL Hx Genitourinary Disorders: No - PSYCHIATRIC Hx Psychophysiologic Disorder: No Hx Substance Use: No - SURGICAL HISTORY Hx Surgeries: Yes Hx Appendectomy: Yes Other/Comment: kidney stone removal - ANESTHESIA Hx Anesthesia: Yes Hx Anesthesia Reactions: No Hx Malignant Hyperthermia: No Meds Allergies/Adverse Reactions: Allergies Allergy/AdvReac Type Severity Reaction Status Date / Time No Known Allergies Allergy Verified 07/25/17 16:13 - Medications Medications: Current Medications Aspirin (Ecotrin) 81 mg PO DAILY [facility] Last Admin: 08/16/17 08:44 Dose: 81 mg Enoxaparin Sodium (Lovenox) 30 mg SC DAILY [facility] PRN Reason: Protocol Last Admin: 08/16/17 08:43 Dose: 30 mg Famotidine (Pepcid) 20 mg PO DAILY [facility] Last Admin: 08/16/17 08:47 Dose: 20 mg Furosemide (Lasix) 40 mg IVP DAILY [facility] Insulin Human Regular (Humulin R) 0 units SC ACBD [facility] PRN Reason: Protocol Last Admin: 08/16/17 08:45 Dose: Not Given Methimazole (Tapazole) 5 mg PO DAILY [facility] Last Admin: 08/16/17 08:44 Dose: 5 mg Metoprolol Tartrate (Lopressor) 25 mg PO Q12 [facility] Last Admin: 08/16/17 08:44 Dose: 25 mg Physical Exam - Respiratory Exam Respiratory Exam: Decreased Breath Sounds - Cardiovascular Exam Cardiovascular Exam: REGULAR RHYTHM, +S1, +S2 - Extremities Exam Additional comments: ~ 2+ BILKATERAL PRE-TIBIAL EDEMA BUT PATIENT WAS SITTING IN BED WITH HER LEGS OVER THE SIDE - Additional Findings Additional findings: EKG NSR TROPONIN NORMAL MILDLY ELEVATED PBNP TSH NORMAL CXR REVIEWED WITH DR GREEN AND I BELIEVE IT WAS UNDERPENETATED AND IT DOES NOT SHOW PULMONARY CONGESTION. THERE ARE CHRONIC CHANGES AND A SMALL LEFT PLEURAL EFFUSION(SIMILAR TO PRIOR CXR) Results - Vital Signs Recent Vital Signs: Last Vital Signs Temp 97.5 F L 08/16/17 08:05 Pulse 84 08/16/17 08:44 Resp 14 08/16/17 08:05 BP 183/67 H 08/16/17 08:44 Pulse Ox 91 L 08/16/17 08:05 - Labs Result Diagrams: 08/15/17 16:00 08/16/17 05:00 Labs: Laboratory Results - last 24 hr 08/15/17 08/15/17 08/15/17 15:48 16:00 16:00 WBC 5.9 RBC 3.98 Hgb 11.2 L Hct 34.5 MCV 86.8 MCH 28.1 MCHC 32.4 L RDW 15.2 H Plt Count 283 MPV 8.8 Neut % (Auto) 76.4 H Lymph % (Auto) 12.9 L Banner % (Auto) 8.6 Eos % (Auto) 1.1 Baso % (Auto) 1.0 Neut # 4.5 Lymph # 0.8 L Banner # 0.5 Eos # 0.1 Baso # 0.1 PT INR APTT pCO2 pO2 26 L HCO3 ABG pH ABG Total CO2 ABG O2 Saturation ABG O2 Content ABG Base Excess ABG Hemoglobin ABG Carboxyhemoglobin POC ABG HHb (Measured) ABG Methemoglobin ABG O2 Capacity Anshul Test VBG pH 7.37 VBG pCO2 43 VBG HCO3 23.0 VBG Total CO2 26.2 VBG O2 Sat (Calc) 48.2 VBG Base Excess -0.6 L VBG Potassium 3.7 A-a O2 Difference 70.0 Hgb O2 Saturation Sodium 137.0 140 Chloride 109.0 H 106 Glucose 144 H Lactate 1.1 FiO2 21.0 Blood Gas Comments Crit Value Called To Alfreda collins Crit Value Called By 15 Crit Value Read Back Y Blood Gas Notified Time 1615 Potassium 4.8 Carbon Dioxide 22 Anion Gap 17 BUN 29 H Creatinine 0.7 Est GFR ( Amer) > 60 Est GFR (Non-Af Amer) > 60 POC Glucose (mg/dL) Random Glucose 135 H Calcium 9.8 Phosphorus 3.6 Magnesium 1.7 Total Bilirubin 0.9 AST 32 ALT 22 Alkaline Phosphatase 100 Troponin I NT-Pro-B Natriuret Pep 2140 H Total Protein 7.5 Albumin 4.2 Globulin 3.3 Albumin/Globulin Ratio 1.3 Triglycerides Cholesterol LDL Cholesterol Direct HDL Cholesterol Free T4 Thyroxine (T4) TSH 3rd Generation 2.62 Venous Blood Potassium 3.7 08/15/17 08/15/17 08/16/17 16:00 16:17 05:00 WBC RBC Hgb Hct MCV MCH MCHC RDW Plt Count MPV Neut % (Auto) Lymph % (Auto) Banner % (Auto) Eos % (Auto) Baso % (Auto) Neut # Lymph # Banner # Eos # Baso # PT 11.9 INR 1.1 APTT 31.9 pCO2 30 L pO2 56 L HCO3 23.9 ABG pH 7.47 H ABG Total CO2 22.7 ABG O2 Saturation 94.8 L ABG O2 Content 14.2 L ABG Base Excess -1.1 ABG Hemoglobin 11.2 L ABG Carboxyhemoglobin 3.0 H POC ABG HHb (Measured) 4.9 ABG Methemoglobin 2.2 ABG O2 Capacity 15.0 L Anshul Test Yes VBG pH VBG pCO2 VBG HCO3 VBG Total CO2 VBG O2 Sat (Calc) VBG Base Excess VBG Potassium A-a O2 Difference 106.0 Hgb O2 Saturation 89.9 L Sodium 139 Chloride 106 Glucose Lactate FiO2 28.0 Blood Gas Comments 2l/m nc,rb Crit Value Called To Crit Value Called By Crit Value Read Back N Blood Gas Notified Time Potassium 4.1 Carbon Dioxide 24 Anion Gap 13 BUN 27 H Creatinine 0.8 Est GFR ( Amer) > 60 Est GFR (Non-Af Amer) > 60 POC Glucose (mg/dL) Random Glucose 149 H Calcium 9.4 Phosphorus Magnesium 1.6 Total Bilirubin 0.7 AST 14 D ALT 24 Alkaline Phosphatase 89 Troponin I 0.0260 NT-Pro-B Natriuret Pep 2360 H Total Protein 6.5 Albumin 3.6 Globulin 2.9 Albumin/Globulin Ratio 1.2 Triglycerides 91 Cholesterol 171 LDL Cholesterol Direct 106 HDL Cholesterol 43 Free T4 Thyroxine (T4) 7.59 TSH 3rd Generation 3.10 Venous Blood Potassium 08/16/17 08/16/17 05:00 05:46 WBC RBC Hgb Hct MCV MCH MCHC RDW Plt Count MPV Neut % (Auto) Lymph % (Auto) Banner % (Auto) Eos % (Auto) Baso % (Auto) Neut # Lymph # Banner # Eos # Baso # PT INR APTT pCO2 pO2 HCO3 ABG pH ABG Total CO2 ABG O2 Saturation ABG O2 Content ABG Base Excess ABG Hemoglobin ABG Carboxyhemoglobin POC ABG HHb (Measured) ABG Methemoglobin ABG O2 Capacity Anshul Test VBG pH VBG pCO2 VBG HCO3 VBG Total CO2 VBG O2 Sat (Calc) VBG Base Excess VBG Potassium A-a O2 Difference Hgb O2 Saturation Sodium Chloride Glucose Lactate FiO2 Blood Gas Comments Crit Value Called To Crit Value Called By Crit Value Read Back Blood Gas Notified Time Potassium Carbon Dioxide Anion Gap BUN Creatinine Est GFR ( Amer) Est GFR (Non-Af Amer) POC Glucose (mg/dL) 151 H Random Glucose Calcium Phosphorus Magnesium Total Bilirubin AST ALT Alkaline Phosphatase Troponin I NT-Pro-B Natriuret Pep Total Protein Albumin Globulin Albumin/Globulin Ratio Triglycerides Cholesterol LDL Cholesterol Direct HDL Cholesterol Free T4 1.13 Thyroxine (T4) TSH 3rd Generation Venous Blood Potassium Assessment & Plan - Assessment and Plan (Free Text) Assessment: CHRONIC LUNG CHANES AND PERSISTENT SMALL LEFT PLEURAL EFFUSION MILDLY ELEVATED PBNP MAY BE WNL FOR THE PATIENT'S AGE AND I DO NOT BELIEVE THE PATIENT IS IN ACUTE DIASTOLOC CHF NORMAL SYSTOLIC FUNCTION BY RECENT ECHOCARDIOGRAM HYPERTENSION Plan: CONTINUE O2, ASPIRIN, IV FUROSEMIDE, METOPROLOL, LOVENOX, TAPAZOLE PULMONARY TO SEE
--- NOTE | 2017-08-16 11:04 | CP.PCM.CON ---
History of Present Illness - History of Present Illness History of Present Illness: This 77-year-old female presented to the emergency department, referred by her primary medical doctor because of hypoxia and dyspnea on exertion. She denied any chest pain, fevers, chills or sweats. She denied coughing or sputum expectoration and also denied hemoptysis. She did complain of some abdominal discomfort without any diarrhea. She did have some mild constipation. Chest x- ray done in the emergency department showed left basal pleural effusion with possible retrocardiac atelectasis/infiltrate. She was also complaining of palpitations without chest pain. No nausea or vomiting. She had originally been seen approximately one month ago when she presented with dyspnea on exertion and symptoms consistent with orthopnea. This constitutes the third hospitalization for similar symptom complex during this year. Review of Systems - Review of Systems All systems: reviewed and no additional remarkable complaints except - EENT Nose/Mouth/Throat: Nasal Congestion - Cardiovascular Cardiovascular: Dyspnea on Exertion, Palpitations - Respiratory Respiratory: Dyspnea on Exertion - Neurological Neurological: Paresthesias (feet) Past Patient History - Infectious Disease Hx of Infectious Diseases: None - Past Medical History & Family History Past Medical History?: Yes - Past Social History Smoking Status: Former Smoker Chewing Tobacco Use: No Cigar Use: No Alcohol: Social Drugs: Denies Home Situation {Lives}: Alone - CARDIAC Hx Hypercholesterolemia: Yes Hx Hypertension: Yes Hx Peripheral Edema: Yes - PULMONARY Hx Bronchitis: Yes Hx Pneumonia: Yes Other/Comment: pleural effusions - NEUROLOGICAL Hx Neurological Disorder: No - HEENT Hx HEENT Problems: No - RENAL Hx Chronic Kidney Disease: Yes Hx Kidney Stones: Yes (kidney stone removal) - ENDOCRINE/METABOLIC Hx Diabetes Mellitus Type 2: Yes Hx Hyperthyroidism: Yes - HEMATOLOGICAL/ONCOLOGICAL Hx Blood Disorders: No Hx Human Immunodeficiency Virus (HIV): No - INTEGUMENTARY Hx Dermatological Problems: No - MUSCULOSKELETAL/RHEUMATOLOGICAL Hx Musculoskeletal Disorders: No Hx Falls: Yes - GASTROINTESTINAL Hx Gastrointestinal Disorders: No - GENITOURINARY/GYNECOLOGICAL Hx Genitourinary Disorders: No - PSYCHIATRIC Hx Psychophysiologic Disorder: No Hx Substance Use: No - SURGICAL HISTORY Hx Surgeries: Yes Hx Appendectomy: Yes Other/Comment: kidney stone removal - ANESTHESIA Hx Anesthesia: Yes Hx Anesthesia Reactions: No Hx Malignant Hyperthermia: No Meds Allergies/Adverse Reactions: Allergies Allergy/AdvReac Type Severity Reaction Status Date / Time No Known Allergies Allergy Verified 07/25/17 16:13 - Medications Medications: Current Medications Aspirin (Ecotrin) 81 mg PO DAILY [facility] Last Admin: 08/16/17 08:44 Dose: 81 mg Enoxaparin Sodium (Lovenox) 30 mg SC DAILY [facility] PRN Reason: Protocol Last Admin: 08/16/17 08:43 Dose: 30 mg Famotidine (Pepcid) 20 mg PO DAILY [facility] Last Admin: 08/16/17 08:47 Dose: 20 mg Furosemide (Lasix) 40 mg IVP DAILY [facility] Insulin Human Regular (Humulin R) 0 units SC ACBD [facility] PRN Reason: Protocol Last Admin: 08/16/17 08:45 Dose: Not Given Methimazole (Tapazole) 5 mg PO DAILY [facility] Last Admin: 08/16/17 08:44 Dose: 5 mg Metoprolol Tartrate (Lopressor) 25 mg PO Q12 [facility] Last Admin: 08/16/17 08:44 Dose: 25 mg Physical Exam - Additional Findings Additional findings: Seated on the edge of her bed in the room with her nasal cannula off presently. SPO2 checked on room air was only 80%. Nasal cannula was replaced at 2 L/m and the SPO2 rechecked which was then 92%. The neck appears supple and trachea is midline. Neck vein distention or HJR were not seen. No carotid bruit. No thyromegaly. No palpable lymphadenopathy. Pharynx is pink and mucous membranes are moist. No exudate. Conjunctivae are pink and there is no scleral icterus. Dullness to chest percussion is noted posteriorly at the left base. Bronchial breathing with egophony is noted at the left base associated with markedly diminished breath sounds in this area. The right lung appears essentially clear to auscultation with the exception of a few scattered rhonchi. Occasional dry to medium rales are heard in the lower lobes. No audible wheezing. The heart sounds were distant and the rhythm was regular. The abdomen appeared soft and nontender with normal bowel sounds. 1-2+ pitting edema is noted in both lower extremities to the level of the distal calves. No calf tenderness or palpable venous cords. No cyanosis. No Homans sign. Results - Vital Signs Recent Vital Signs: Last Vital Signs Temp 97.5 F L 08/16/17 08:05 Pulse 84 08/16/17 08:44 Resp 14 08/16/17 08:05 BP 183/67 H 08/16/17 08:44 Pulse Ox 91 L 08/16/17 08:05 - Labs Result Diagrams: 08/15/17 16:00 08/16/17 05:00 Labs: Laboratory Results - last 24 hr 08/15/17 08/15/17 08/15/17 15:48 16:00 16:00 WBC 5.9 RBC 3.98 Hgb 11.2 L Hct 34.5 MCV 86.8 MCH 28.1 MCHC 32.4 L RDW 15.2 H Plt Count 283 MPV 8.8 Neut % (Auto) 76.4 H Lymph % (Auto) 12.9 L Barnes % (Auto) 8.6 Eos % (Auto) 1.1 Baso % (Auto) 1.0 Neut # 4.5 Lymph # 0.8 L Barnes # 0.5 Eos # 0.1 Baso # 0.1 PT INR APTT pCO2 pO2 26 L HCO3 ABG pH ABG Total CO2 ABG O2 Saturation ABG O2 Content ABG Base Excess ABG Hemoglobin ABG Carboxyhemoglobin POC ABG HHb (Measured) ABG Methemoglobin ABG O2 Capacity Anshul Test VBG pH 7.37 VBG pCO2 43 VBG HCO3 23.0 VBG Total CO2 26.2 VBG O2 Sat (Calc) 48.2 VBG Base Excess -0.6 L VBG Potassium 3.7 A-a O2 Difference 70.0 Hgb O2 Saturation Sodium 137.0 140 Chloride 109.0 H 106 Glucose 144 H Lactate 1.1 FiO2 21.0 Blood Gas Comments Crit Value Called To Alfreda collins Crit Value Called By 15 Crit Value Read Back Y Blood Gas Notified Time 1615 Potassium 4.8 Carbon Dioxide 22 Anion Gap 17 BUN 29 H Creatinine 0.7 Est GFR ( Amer) > 60 Est GFR (Non-Af Amer) > 60 POC Glucose (mg/dL) Random Glucose 135 H Calcium 9.8 Phosphorus 3.6 Magnesium 1.7 Total Bilirubin 0.9 AST 32 ALT 22 Alkaline Phosphatase 100 Troponin I NT-Pro-B Natriuret Pep 2140 H Total Protein 7.5 Albumin 4.2 Globulin 3.3 Albumin/Globulin Ratio 1.3 Triglycerides Cholesterol LDL Cholesterol Direct HDL Cholesterol Free T4 Thyroxine (T4) TSH 3rd Generation 2.62 Venous Blood Potassium 3.7 08/15/17 08/15/17 08/16/17 16:00 16:17 05:00 WBC RBC Hgb Hct MCV MCH MCHC RDW Plt Count MPV Neut % (Auto) Lymph % (Auto) Barnes % (Auto) Eos % (Auto) Baso % (Auto) Neut # Lymph # Barnes # Eos # Baso # PT 11.9 INR 1.1 APTT 31.9 pCO2 30 L pO2 56 L HCO3 23.9 ABG pH 7.47 H ABG Total CO2 22.7 ABG O2 Saturation 94.8 L ABG O2 Content 14.2 L ABG Base Excess -1.1 ABG Hemoglobin 11.2 L ABG Carboxyhemoglobin 3.0 H POC ABG HHb (Measured) 4.9 ABG Methemoglobin 2.2 ABG O2 Capacity 15.0 L Anshul Test Yes VBG pH VBG pCO2 VBG HCO3 VBG Total CO2 VBG O2 Sat (Calc) VBG Base Excess VBG Potassium A-a O2 Difference 106.0 Hgb O2 Saturation 89.9 L Sodium 139 Chloride 106 Glucose Lactate FiO2 28.0 Blood Gas Comments 2l/m nc,rb Crit Value Called To Crit Value Called By Crit Value Read Back N Blood Gas Notified Time Potassium 4.1 Carbon Dioxide 24 Anion Gap 13 BUN 27 H Creatinine 0.8 Est GFR ( Amer) > 60 Est GFR (Non-Af Amer) > 60 POC Glucose (mg/dL) Random Glucose 149 H Calcium 9.4 Phosphorus Magnesium 1.6 Total Bilirubin 0.7 AST 14 D ALT 24 Alkaline Phosphatase 89 Troponin I 0.0260 NT-Pro-B Natriuret Pep 2360 H Total Protein 6.5 Albumin 3.6 Globulin 2.9 Albumin/Globulin Ratio 1.2 Triglycerides 91 Cholesterol 171 LDL Cholesterol Direct 106 HDL Cholesterol 43 Free T4 Thyroxine (T4) 7.59 TSH 3rd Generation 3.10 Venous Blood Potassium 08/16/17 08/16/17 05:00 05:46 WBC RBC Hgb Hct MCV MCH MCHC RDW Plt Count MPV Neut % (Auto) Lymph % (Auto) Barnes % (Auto) Eos % (Auto) Baso % (Auto) Neut # Lymph # Barnes # Eos # Baso # PT INR APTT pCO2 pO2 HCO3 ABG pH ABG Total CO2 ABG O2 Saturation ABG O2 Content ABG Base Excess ABG Hemoglobin ABG Carboxyhemoglobin POC ABG HHb (Measured) ABG Methemoglobin ABG O2 Capacity Anshul Test VBG pH VBG pCO2 VBG HCO3 VBG Total CO2 VBG O2 Sat (Calc) VBG Base Excess VBG Potassium A-a O2 Difference Hgb O2 Saturation Sodium Chloride Glucose Lactate FiO2 Blood Gas Comments Crit Value Called To Crit Value Called By Crit Value Read Back Blood Gas Notified Time Potassium Carbon Dioxide Anion Gap BUN Creatinine Est GFR ( Amer) Est GFR (Non-Af Amer) POC Glucose (mg/dL) 151 H Random Glucose Calcium Phosphorus Magnesium Total Bilirubin AST ALT Alkaline Phosphatase Troponin I NT-Pro-B Natriuret Pep Total Protein Albumin Globulin Albumin/Globulin Ratio Triglycerides Cholesterol LDL Cholesterol Direct HDL Cholesterol Free T4 1.13 Thyroxine (T4) TSH 3rd Generation Venous Blood Potassium Assessment & Plan (1) Hypoxia Status: Acute Priority: High (2) Pleural effusion Status: Acute Priority: High (3) Atelectasis Status: Acute Priority: High - Assessment and Plan (Free Text) Plan: CT angiogram of the lungs has been requested to rule out the possibility of occult pulmonary embolism. Thoracentesis may be required pending results of CT chest. Significant hypoxemia when off supplemental oxygen, even at rest. - Date & Time Date: 08/16/17 Time: 11:04
--- NOTE | 2017-08-16 15:51 | CARD ---
APPROVED REPORT EKG Measurement Heart [id number] <Conclusion> Normal sinus rhythm Nonspecific ST abnormality Abnormal ECG
--- NOTE | 2017-08-16 15:55 | CARD ---
APPROVED REPORT EKG Measurement Heart [id number] <Conclusion> Normal sinus rhythm Normal ECG
[2017-08-16] MEDS ORDERED: Iodixanol 320 MG/ML 100 ML BOTTLE IV ONE (16:24)
[2017-08-16] MEDS: GlipiZIDE 2.5 mg SR Tab PO SCH (17:01)
--- NOTE | 2017-08-16 17:22 | PN ---
ENDOCRINOLOGY FOLLOWUP NOTE LOCATION: In the room #410. This is a 77-year-old female admitted with congestive heart failure and underlying progressive shortness of breath, especially on exertion and is now being followed closely for metabolic management. She remains clinically euthyroid at this time and biochemically, the repeat thyroid studies showed a T4 of 7.59 with a TSH of 3.10 and a free T4 of 1.13. Her latest glucose values are fluctuating, but improved and have ranged from 151 to 228 mg/dL. The latest chemistry showed a BUN of 27, sodium 139, potassium 4.1, chloride 106, CO2 of 24, glucose 149 and creatinine 0.8. So at this time, we will actually be ordering a low dose glipizide given as 2.5 mg extended release once daily at dinner time today. We will continue the low-dose correction scale with regular insulin to obviate hypoglycemia and detailed orders have been given. We will titrate incremental as indicated to optimize metabolic control. We will also continue her Tapazole given as 5 mg once daily in the morning as ordered. We will titrate incremental as indicated to optimize metabolic control. We will obtain serial chemistries and supplement accordingly as needed. We will follow. Lucia Corley MD
--- NOTE | 2017-08-16 17:53 | CT ---
PROCEDURE: CT Chest with contrast (Pulmonary Angiogram) HISTORY: hypoxia COMPARISON: 07/22/2017 CT thorax TECHNIQUE: Axial computed tomography images were obtained of the chest in the pulmonary arterial phase of enhancement. Coronal and sagittal reformatted images were created and reviewed. Intravenous contrast dose: 80 cc Visipaque 320 Radiation dose: Total exam DLP = 422.29 mGy-cm. This CT exam was performed using one or more of the following dose reduction techniques: Automated exposure control, adjustment of the mA and/or kV according to patient size, and/or use of iterative reconstruction technique. FINDINGS: PULMONARY ARTERIES: Unremarkable. No pulmonary embolism. AORTA: Aneurysmal dilatation of the ascending aorta 3.6 cm LUNGS: Progressive consolidative changes primarily compressive atelectasis at the lung bases related to pleural effusions. PLEURAL SPACES: Increasing bilateral pleural effusions. HEART: Cardiomegaly, mild CHF. Findings are progressive compared to the prior study. LYMPH NODES: No lymphadenopathy. BONES, CHEST WALL: Unremarkable. No fracture or destructive lesion OTHER FINDINGS: Nonobstructing renal calculus disease. IMPRESSION: Unremarkable CT pulmonary angiogram. No pulmonary embolus. Findings suggestive of CHF, manifest as increasing pleural effusions, patchy airspace disease and compressive atelectasis. Aneurysmal dilatation of the ascending aorta.
--- NOTE | 2017-08-16 18:13 | CP.PCM.HP ---
History of Present Illness - History of Present Illness History of Present Illness: 77 yo admitted for SOB and palpitations and vague GI sx Third episode this year Present on Admission - Present on Admission Any Indicators Present on Admission: No Past Patient History - Infectious Disease Hx of Infectious Diseases: None - Past Medical History & Family History Past Medical History?: Yes - Past Social History Smoking Status: Former Smoker Chewing Tobacco Use: No Cigar Use: No Alcohol: Social Drugs: Denies Home Situation {Lives}: Alone - CARDIAC Hx Hypercholesterolemia: Yes Hx Hypertension: Yes Hx Peripheral Edema: Yes - PULMONARY Hx Bronchitis: Yes Hx Pneumonia: Yes Other/Comment: pleural effusions - NEUROLOGICAL Hx Neurological Disorder: No - HEENT Hx HEENT Problems: No - RENAL Hx Chronic Kidney Disease: Yes Hx Kidney Stones: Yes (kidney stone removal) - ENDOCRINE/METABOLIC Hx Diabetes Mellitus Type 2: Yes Hx Hyperthyroidism: Yes - HEMATOLOGICAL/ONCOLOGICAL Hx Blood Disorders: No Hx Human Immunodeficiency Virus (HIV): No - INTEGUMENTARY Hx Dermatological Problems: No - MUSCULOSKELETAL/RHEUMATOLOGICAL Hx Musculoskeletal Disorders: No Hx Falls: Yes - GASTROINTESTINAL Hx Gastrointestinal Disorders: No - GENITOURINARY/GYNECOLOGICAL Hx Genitourinary Disorders: No - PSYCHIATRIC Hx Psychophysiologic Disorder: No Hx Substance Use: No - SURGICAL HISTORY Hx Surgeries: Yes Hx Appendectomy: Yes Other/Comment: kidney stone removal - ANESTHESIA Hx Anesthesia: Yes Hx Anesthesia Reactions: No Hx Malignant Hyperthermia: No Meds Allergies/Adverse Reactions: Allergies Allergy/AdvReac Type Severity Reaction Status Date / Time No Known Allergies Allergy Verified 07/25/17 16:13 Physical Exam - Respiratory Exam Respiratory Exam: NORMAL BREATHING PATTERN - Cardiovascular Exam Cardiovascular Exam: REGULAR RHYTHM - GI/Abdominal Exam GI & Abdominal Exam: Normal Bowel Sounds Results - Vital Signs Recent Vital Signs: Last Vital Signs Temp 97.9 F 08/16/17 16:07 Pulse 75 08/16/17 16:07 Resp 14 08/16/17 16:07 BP 117/53 L 08/16/17 16:07 Pulse Ox 94 L 08/16/17 16:07 - Labs Result Diagrams: 08/15/17 16:00 08/16/17 05:00 Labs: Laboratory Results - last 24 hr 08/16/17 08/16/17 08/16/17 05:00 05:00 05:00 Sodium 139 Potassium 4.1 Chloride 106 Carbon Dioxide 24 Anion Gap 13 BUN 27 H Creatinine 0.8 Est GFR ( Amer) > 60 Est GFR (Non-Af Amer) > 60 POC Glucose (mg/dL) Random Glucose 149 H Hemoglobin A1c 6.0 Calcium 9.4 Magnesium 1.6 Total Bilirubin 0.7 AST 14 D ALT 24 Alkaline Phosphatase 89 Troponin I 0.0260 NT-Pro-B Natriuret Pep 2360 H Total Protein 6.5 Albumin 3.6 Globulin 2.9 Albumin/Globulin Ratio 1.2 Triglycerides 91 Cholesterol 171 LDL Cholesterol Direct 106 HDL Cholesterol 43 Free T4 1.13 Thyroxine (T4) 7.59 TSH 3rd Generation 3.10 08/16/17 08/16/17 08/16/17 05:46 10:53 11:03 Sodium Potassium Chloride Carbon Dioxide Anion Gap BUN Creatinine Est GFR ( Amer) Est GFR (Non-Af Amer) POC Glucose (mg/dL) 151 H 228 H Random Glucose Hemoglobin A1c Calcium Magnesium Total Bilirubin AST ALT Alkaline Phosphatase Troponin I NT-Pro-B Natriuret Pep 2480 H Total Protein Albumin Globulin Albumin/Globulin Ratio Triglycerides Cholesterol LDL Cholesterol Direct HDL Cholesterol Free T4 Thyroxine (T4) TSH 3rd Generation 08/16/17 16:08 Sodium Potassium Chloride Carbon Dioxide Anion Gap BUN Creatinine Est GFR ( Amer) Est GFR (Non-Af Amer) POC Glucose (mg/dL) 122 H Random Glucose Hemoglobin A1c Calcium Magnesium Total Bilirubin AST ALT Alkaline Phosphatase Troponin I NT-Pro-B Natriuret Pep Total Protein Albumin Globulin Albumin/Globulin Ratio Triglycerides Cholesterol LDL Cholesterol Direct HDL Cholesterol Free T4 Thyroxine (T4) TSH 3rd Generation Assessment & Plan - Assessment and Plan (Free Text) Assessment: Hypoxia etiol? Hx COPD CHF Diast Cardiology Pulmonary Thyroid dx Endo - Date & Time Date: 08/16/17 Time:
[2017-08-17 06:40] LABS: HEMATOCRIT 32.4 % (34.0-47.0); MEAN CELL VOLUME 86.5 fl (81.0-99.0); MEAN CORPUSCULAR HEMOGLOBIN 28.8 pg (27.0-31.0); MEAN CORPUSCULAR HGB CONC 33.3 g/dL (33.0-37.0)
[2017-08-17] MEDS: Insulin Regular 100 units/ml SC SCH ×2 (06:53→16:48)
[2017-08-17 07:01] LABS: BLOOD UREA NITROGEN 28 mg/dl (7-17); CALCIUM 9.5 mg/dL (8.4-10.2); CARBON DIOXIDE 27 mmol/L (22-30); CHLORIDE 103 mmol/L (98-107); GFR AFRICAN-AMERICAN > 60; GLUCOSE,RANDOM 98 mg/dL (65-105); POTASSIUM 3.5 MMOL/L (3.6-5.0); SODIUM 141 mmol/l (132-148)
[2017-08-17] MEDS: Enoxaparin 40 mg Syringe SC SCH (08:10)
[2017-08-17] MEDS: methIMAzole 5 MG TAB PO SCH (08:10)
--- NOTE | 2017-08-17 11:20 | CP.PCM.PN ---
Subjective - Date & Time of Evaluation Date of Evaluation: 08/17/17 Time of Evaluation: 11:18 - Subjective Subjective: Seated on EOB comfortably. SpO2 on room air at rest is 90%. Had ambulated yesterday; SpO2 was recorded at 76% without O2 on. Slept well last night. Weight this morning was 190 lbs (5 pounds less than estimated weight at the time of admission). CTA chest yesterday: no pulmonary embolism, bilateral pleural effusions with bibasal passive atelectasis. Dependant edema has decreased and is only trace in both ankles today. Dullness to percussion is still present in both lung bases. There is a zone of bronchial breathing at the left base. Breath sounds are very much decreased in both lung bases posteriorly. No audible wheezing. Few dry to medium rales are present in the lower lobes bilaterally. She remains afebrile, mildly hypertensive and anemic. I will discuss with cardiology regarding further workup. I have questions about her compliance with medications at home. Will monitor daily weights on current therapy. Would consider thoracentesis and FFB if effusions and atelectasis persist. Objective - Vital Signs/Intake and Output Vital Signs (last 24 hours): Temp Pulse Resp BP Pulse Ox 97.6 F 85 18 148/96 H 99 08/17/17 08:07 08/17/17 08:10 08/17/17 08:07 08/17/17 08:12 08/17/17 08:07 - Medications Medications: Current Medications Aspirin (Ecotrin) 81 mg PO DAILY [facility] Last Admin: 08/17/17 08:11 Dose: 81 mg Enoxaparin Sodium (Lovenox) 40 mg SC DAILY [facility] PRN Reason: Protocol Last Admin: 08/17/17 08:10 Dose: 40 mg Famotidine (Pepcid) 20 mg PO DAILY [facility] Last Admin: 08/17/17 08:11 Dose: 20 mg Furosemide (Lasix) 40 mg IVP DAILY [facility] Last Admin: 08/17/17 08:12 Dose: 40 mg Glipizide (Glucotrol Xl) 2.5 mg PO ACD [facility] Last Admin: 08/16/17 17:01 Dose: 2.5 mg Insulin Human Regular (Humulin R) 0 units SC ACBD [facility] Reason: Protocol Last Admin: 08/17/17 06:53 Dose: Not Given Methimazole (Tapazole) 5 mg PO DAILY [facility] Last Admin: 08/17/17 08:10 Dose: 5 mg Metoprolol Tartrate (Lopressor) 25 mg PO Q12 [facility] Last Admin: 08/17/17 08:10 Dose: 25 mg - Labs Labs: 08/17/17 05:30 08/17/17 05:30 PT 11.9 Seconds (9.8-13.1) 08/15/17 16:00 INR 1.1 (0.9-1.2) 08/15/17 16:00 APTT 31.9 Seconds (25.6-37.1) 08/15/17 16:00 Assessment and Plan (1) Hypoxia Status: Acute (2) Pleural effusion Status: Acute (3) Atelectasis Status: Acute
--- NOTE | 2017-08-17 13:29 | PN ---
DATE: ENDOCRINOLOGY FOLLOWUP NOTE LOCATION: Room 410. SUBJECTIVE: This is a 77-year-old female with recent admission for congestive heart failure and currently improving clinically and hemodynamically as noted thereof. She also has underlying endocrine conditions with known history of hyperthyroidism, currently clinically and biochemically euthyroid on a low-dose oral medical therapy as given. Her glycemic levels are also improved and has been started on a low-dose oral hypoglycemic drug therapy as tolerated. Her glucose values today have ranged from 103-166 mg/dL. Her latest chemistry showed a BUN of 28, sodium 141, potassium 3.5, chloride 103, CO2 of 27, glucose 98, and creatinine 1.0. So, at this time, we will continue the low-dose glipizide given as 2.5 mg once daily in the evening as ordered. We will also continue the Tapazole given as 5 mg once daily in the morning as ordered. We will titrate incrementally as indicated to optimize metabolic control. We will obtain serial chemistries and supplement accordingly as needed. We will follow. Lucia Corley MD
[2017-08-17] MEDS ORDERED: Magnesium Hydroxide Susp 30 ml UD PO STA (16:10)
[2017-08-17] MEDS: GlipiZIDE 2.5 mg SR Tab PO SCH (16:47)
[2017-08-18] MEDS: Insulin Regular 100 units/ml SC SCH ×2 (08:27→16:03)
[2017-08-18] MEDS: Enoxaparin 40 mg Syringe SC SCH (09:27)
[2017-08-18] MEDS: methIMAzole 5 MG TAB PO SCH (09:27)
--- NOTE | 2017-08-18 10:06 | CP.PCM.PN ---
Subjective - Date & Time of Evaluation Date of Evaluation: 08/18/17 Time of Evaluation: 10:02 - Subjective Subjective: Repeat CXR shows some degree of improvement of the congestive pattern with a clear right hemidiaphragm, but the left effusion and retrocardiac infiltrate are about the same. Will check once more Saturday AM and plan FFB if not showing further clearing. ASA will prohibit any forceps biopsies, but visualization and brushings can be performed. Will discuss first with cardiology since there were positive troponins on her admission last month. This may result in need for further cardiac testing beforehand. Objective - Vital Signs/Intake and Output Vital Signs (last 24 hours): Temp Pulse Resp BP Pulse Ox 97.8 F 79 20 134/64 94 L 08/18/17 08:12 08/18/17 09:26 08/18/17 08:12 08/18/17 09:26 08/18/17 08:12 - Medications Medications: Current Medications Aspirin (Ecotrin) 81 mg PO DAILY [facility] Last Admin: 08/18/17 09:25 Dose: 81 mg Enoxaparin Sodium (Lovenox) 40 mg SC DAILY [facility] PRN Reason: Protocol Last Admin: 08/18/17 09:27 Dose: 40 mg Famotidine (Pepcid) 20 mg PO DAILY [facility] Last Admin: 08/18/17 09:27 Dose: 20 mg Furosemide (Lasix) 40 mg IVP DAILY [facility] Last Admin: 08/18/17 09:26 Dose: 40 mg Glipizide (Glucotrol Xl) 2.5 mg PO ACD [facility] Last Admin: 08/17/17 16:47 Dose: 2.5 mg Insulin Human Regular (Humulin R) 0 units SC ACBD [facility] PRN Reason: Protocol Last Admin: 08/18/17 08:27 Dose: Not Given Methimazole (Tapazole) 5 mg PO DAILY [facility] Last Admin: 08/18/17 09:27 Dose: 5 mg Metoprolol Tartrate (Lopressor) 25 mg PO Q12 [facility] Last Admin: 08/18/17 09:26 Dose: 25 mg - Labs Labs: 08/17/17 05:30 08/17/17 05:30 PT 11.9 Seconds (9.8-13.1) 08/15/17 16:00 INR 1.1 (0.9-1.2) 08/15/17 16:00 APTT 31.9 Seconds (25.6-37.1) 08/15/17 16:00 Assessment and Plan (1) Hypoxia Status: Acute (2) Pleural effusion Status: Acute (3) Atelectasis Status: Acute
--- NOTE | 2017-08-18 11:34 | RAD ---
HISTORY: pleural effusion COMPARISON: Chest radiograph dated 08/15/2017 TECHNIQUE: Chest PA and lateral FINDINGS: LUNGS: Pulmonary vascular congestion. Left basilar atelectasis. PLEURA: Small left pleural effusion. No pneumothorax apparent. CARDIOVASCULAR: Atherosclerotic aortic calcifications. Cardiomediastinal silhouette unchanged. OSSEOUS STRUCTURES: Unchanged. VISUALIZED UPPER ABDOMEN: Normal. OTHER FINDINGS: None. IMPRESSION: Small left pleural effusion.
--- NOTE | 2017-08-18 14:55 | PN ---
DATE: ENDOCRINOLOGY FOLLOWUP NOTE LOCATION: Room 410. SUBJECTIVE: This is a 77-year-old female with recent admission for congestive heart failure with progressive shortness of breath and has improved clinically and hemodynamically as noted thereof. She is being followed closely now for metabolic management of both diabetes and hyperthyroidism as noted thereof. Her latest glucose levels have ranged from 89-112 and 148 mg/dL. Her latest chemistries showed a BUN of 28, sodium 141, potassium 3.5, chloride 103, CO2 of 27, glucose 98, and creatinine 1.0. Her latest thyroid studies showed a T4 of 7.59 with a TSH of 3.10 and a free T4 of 1.13. So, at this time, we will continue the same low-dose Tapazole given as 5 mg once daily as ordered. We will also continue the glipizide given as 2.5 mg a.c. dinner daily as ordered. We will obtain serial chemistries and supplement accordingly as needed. We will follow and advise accordingly. Lucia Corley MD
--- NOTE | 2017-08-18 15:02 | CP.PCM.PN ---
Subjective - Date & Time of Evaluation Date of Evaluation: 08/18/17 Time of Evaluation: 22:22 - Subjective Subjective: Above noted Objective - Vital Signs/Intake and Output Vital Signs (last 24 hours): Temp Pulse Resp BP Pulse Ox 97.4 F L 65 20 118/56 L 96 08/18/17 12:20 08/18/17 12:20 08/18/17 12:20 08/18/17 12:20 08/18/17 12:20 - Medications Medications: Current Medications Aspirin (Ecotrin) 81 mg PO DAILY [facility] Last Admin: 08/18/17 09:25 Dose: 81 mg Enoxaparin Sodium (Lovenox) 40 mg SC DAILY [facility] PRN Reason: Protocol Last Admin: 08/18/17 09:27 Dose: 40 mg Famotidine (Pepcid) 20 mg PO DAILY [facility] Last Admin: 08/18/17 09:27 Dose: 20 mg Furosemide (Lasix) 40 mg IVP DAILY [facility] Last Admin: 08/18/17 09:26 Dose: 40 mg Glipizide (Glucotrol Xl) 2.5 mg PO ACD [facility] Last Admin: 08/17/17 16:47 Dose: 2.5 mg Insulin Human Regular (Humulin R) 0 units SC ACBD [facility] PRN Reason: Protocol Last Admin: 08/18/17 08:27 Dose: Not Given Methimazole (Tapazole) 5 mg PO DAILY [facility] Last Admin: 08/18/17 09:27 Dose: 5 mg Metoprolol Tartrate (Lopressor) 25 mg PO Q12 [facility] Last Admin: 08/18/17 09:26 Dose: 25 mg - Labs Labs: 08/17/17 05:30 08/17/17 05:30 PT 11.9 Seconds (9.8-13.1) 08/15/17 16:00 INR 1.1 (0.9-1.2) 08/15/17 16:00 APTT 31.9 Seconds (25.6-37.1) 08/15/17 16:00 - Respiratory Exam Respiratory Exam: NORMAL BREATHING PATTERN - Cardiovascular Exam Cardiovascular Exam: Tachycardia - GI/Abdominal Exam GI & Abdominal Exam: Normal Bowel Sounds Assessment and Plan - Assessment and Plan (Free Text) Assessment: Hypoxia etiol? Hx COPD CHF Diast Cardiology Pulmonary NIDDM Thyroid dx Endo
--- NOTE | 2017-08-18 15:17 | CP.PCM.PN ---
Subjective - Date & Time of Evaluation Date of Evaluation: 08/18/17 Time of Evaluation: 14:00 - Subjective Subjective: LESS DYSPNEA ON EXERTION WHEN SHE WALKS IN THE HALLWAY NO CHEST PAIN *PATIENT NOW ADMITS THAT SHE SKIPPED FUROSEMIDE AT HOME ON DAYS SHE WOULD GO OUT BECAUSE OF FEAR OF HAVING TO URINATE Objective - Vital Signs/Intake and Output Vital Signs (last 24 hours): Temp Pulse Resp BP Pulse Ox 97.4 F L 65 20 118/56 L 96 08/18/17 12:20 08/18/17 12:20 08/18/17 12:20 08/18/17 12:20 08/18/17 12:20 - Medications Medications: Current Medications Aspirin (Ecotrin) 81 mg PO DAILY [facility] Last Admin: 08/18/17 09:25 Dose: 81 mg Enoxaparin Sodium (Lovenox) 40 mg SC DAILY [facility] PRN Reason: Protocol Last Admin: 08/18/17 09:27 Dose: 40 mg Famotidine (Pepcid) 20 mg PO DAILY [facility] Last Admin: 08/18/17 09:27 Dose: 20 mg Furosemide (Lasix) 40 mg IVP DAILY [facility] Last Admin: 08/18/17 09:26 Dose: 40 mg Glipizide (Glucotrol Xl) 2.5 mg PO ACD [facility] Last Admin: 08/17/17 16:47 Dose: 2.5 mg Insulin Human Regular (Humulin R) 0 units SC ACBD [facility] PRN Reason: Protocol Last Admin: 08/18/17 08:27 Dose: Not Given Methimazole (Tapazole) 5 mg PO DAILY [facility] Last Admin: 08/18/17 09:27 Dose: 5 mg Metoprolol Tartrate (Lopressor) 25 mg PO Q12 [facility] Last Admin: 08/18/17 09:26 Dose: 25 mg - Labs Labs: 08/17/17 05:30 08/17/17 05:30 PT 11.9 Seconds (9.8-13.1) 08/15/17 16:00 INR 1.1 (0.9-1.2) 08/15/17 16:00 APTT 31.9 Seconds (25.6-37.1) 08/15/17 16:00 - Respiratory Exam Additional comments: DECREASED BREATH SOUNDS AND VERY MILD RALES AT BOTH BASES - Cardiovascular Exam Cardiovascular Exam: REGULAR RHYTHM, +S1, +S2 - Extremities Exam Additional comments: SIGNIFICANT DECREASE IN BILATERAL LEG EDEMA EVEN WHEN SITTING UP IN BED WITH FEET DANGLING OVER THE SIDE SOME ANKLE EDEMA IS PRESENT BILAT - Additional Findings Additional findings: CXR REVIEWED AND STILL SHOWS CHRONIC CHANGES IN MY OPINION AND SMALL LEFT PLEURAL EFFUSUION CT SCAN REPORT NOTED(3.6 CM ANEURYSMAL DILATATION OF ASCENDING AORTA IS NOT SIGNIFICANT IN MY OPINION) PBNP 2480 ON 08/16 PULMONARY NOTES REVIEWED Assessment and Plan - Assessment and Plan (Free Text) Assessment: CHRONIC MILD DIASTOLIC CHF WITH NON-COMPLIANCE WITH FUROSEMIDE-PRESENTLY IMPROVING WITH IV FUROSEMIDE HYPERTENSION EX-SMOKER WITH CHRONIC LUNG CHANGES Plan: CONTINUE O2, IV FUROSEMIDE, METOPROLOL, ASPIRIN, LOVENOX PHARMACOLOGICAL STRESS TEST RECOMMENDED TO PATIENT FOR 08/20 OR 08/21 WHILE STILL AN IN PATIENT ON THIS ADMISSION DUE TO HISTORY OF MILDLY ELEVATED TROPONINS ON LAST ADMISSION WHEN SHE HAD SINUS TACHYCARDIA AND PNEUMONIA, BUT SHE AGAIN DOESN'T WANT TO DO ONE ON THIS ADMISSION AND WANTS TO WAIT UNTIL AFTER THE HOLIDAYS WOULD NOT RECOMMEND A BRONCHOSCOPY UNTIL AFTER SHE COMPLETES HER CARDIAC WORK UP
[2017-08-18] MEDS: GlipiZIDE 2.5 mg SR Tab PO SCH (16:10)
[2017-08-19 05:44] LABS: T4 6.74 ug/dl (5.5-11.0)
[2017-08-19 05:58] LABS: THYROID STIMULATING HORMONE 2.74 mIU/ML (0.46-4.68)
[2017-08-19] MEDS: Insulin Regular 100 units/ml SC SCH ×2 (06:40→16:17)
[2017-08-19 07:19] LABS: ALB/GLOB RATIO 1.3 (1.0-2.1); ALKALINE PHOSPHATASE 88 U/L (38-126); ALT/SGPT 25 U/L (9-52); AST/SGOT 15 U/L (14-36); BILIRUBIN,TOTAL 0.7 mg/dl (0.2-1.3); BLOOD UREA NITROGEN 36 mg/dl (7-17); CALCIUM 9.3 mg/dL (8.4-10.2); CARBON DIOXIDE 30 mmol/L (22-30); CHLORIDE 101 mmol/L (98-107); GFR AFRICAN-AMERICAN > 60; GLUCOSE,RANDOM 135 mg/dL (65-105); POTASSIUM 4.3 MMOL/L (3.6-5.0); SODIUM 138 mmol/l (132-148); TOTAL PROTEIN 6.8 G/DL (6.3-8.2)
[2017-08-19] MEDS: Enoxaparin 40 mg Syringe SC SCH (09:13)
[2017-08-19] MEDS: methIMAzole 5 MG TAB PO SCH (09:14)
[2017-08-19] MEDS: GlipiZIDE 2.5 mg SR Tab PO SCH (16:17)
--- NOTE | 2017-08-19 17:20 | PN ---
DATE: ENDOCRINOLOGY FOLLOWUP NOTE LOCATION: Room 410. SUBJECTIVE: This is a 77-year-old female presenting here with congestive heart failure and is being managed closely by Cardiology and has improved hemodynamically and clinically as noted thereof. Her glycemic levels are fluctuating but much improved and have ranged from 118 to 140 mg/dL. Her latest chemistry showed a BUN of 36, sodium 138, potassium 4.3, chloride 101, CO2 of 30, glucose 135, and creatinine 1.0. Her latest thyroid studies showed a total T4 of 6.74 with a TSH of 2.74 and a free T4 of 0.99. So, at this time, we will continue the low-dose oral hypoglycemic therapy given as glipizide XL at 2.5 mg once daily at dinnertime as ordered. We will also continue the low-dose Tapazole given as 5 mg once daily as ordered. We will obtain serial chemistries and supplement accordingly needed. We will follow. Lucia Corley MD
[2017-08-20] MEDS: Insulin Regular 100 units/ml SC SCH ×2 (06:39→17:04)
--- NOTE | 2017-08-20 08:45 | CON ---
ENDOCRINOLOGY FOLLOWUP NOTE DATE: ROOM: 407. HISTORY OF PRESENT ILLNESS: This is a 77-year-old female with known history of type 2 diabetes and hyperthyroidism, presenting here with progressive shortness of breath and supervening hypoxemia and has been evaluated to be in congestive heart failure with underlying pleural effusion, and is now being referred for endocrine evaluation and management. PAST MEDICAL HISTORY: As mentioned above, history of type 2 diabetes, currently optimally controlled on glipizide given as 10 mg once daily as noted. Her last A1c when seen in my office was actually very good at 6.0% as noted. She also has a significant history of hyperthyroidism with underlying Graves disease and currently also euthyroid on a low-dose of medical therapy using Tapazole at 5 mg once daily as given. History of hypertension and dyslipidemia, history of chronic obstructive lung disease with previous admissions for exacerbations of the same, previous admissions for congestive heart failure and underlying pleural effusion and pneumonia as noted. Also, a history of nephrolithiasis with no active stone formation or stone passage thereof. FAMILY HISTORY: Positive for hypertension and heart disease. SOCIAL HISTORY: The patient has a supportive family. No known substance use. REVIEW OF SYSTEMS: As mentioned above. Admits to generalized body weakness . Also admits to progressive bouts of dizziness and lightheadedness with bifrontal headaches, worse on the day of admission. Admits to precordial chest pain with progressive shortness of breath, initially with exertion and then at rest with paroxysmal nocturnal dyspnea. Her oral intake has been variable with nausea, dyspepsia, and vague upper abdominal pains and also habitual constipation. PHYSICAL EXAMINATION: GENERAL: An average built female, in no apparent distress. VITAL SIGNS: Blood pressure of 160/100, pulse of 70 beats per minute, regular, temperature 98, respirations 20, height 5 feet 1 inch, weight is 155 pounds. HEENT: Head normocephalic. Eyes anicteric with pink conjunctivae. Funduscopy not possible at this time. Ears, nose, and throat are otherwise normal. NECK: Supple. Thyroid gland is normal in size, no carotid bruits or cervical adenopathy. CARDIOPULMONARY: Adynamic precordium. S1 and S2 is rapid and regular. LUNGS: Showed scattered rhonchi and bibasilar rales. ABDOMEN: Flat, soft with positive bowel sounds. EXTREMITIES: Pulses are +2 bilaterally. No pedal edema noted. LABORATORY: Chemistry showed a BUN of 29, sodium 140, potassium 4.8, chloride 106, CO2 22, glucose 135, and creatinine 0.7. Her proBNP is 2140. TSH is 2.62. ASSESSMENT: This is a 77-year-old female with type 2 diabetes and hypertension, presenting here with overt congestive heart failure, both historically, clinically, and biochemically as noted thereof. She also has a significant history of hyperthyroidism, but has been euthyroid, on a low-dose medical therapy as noted and given. PLAN OF MANAGEMENT: We will continue the Tapazole given as 5 mg once daily as ordered, and we will obtain a comprehensive thyroid hormonal profile and determine the need for dose adjustments accordingly. We will obtain serial chemistries and supplement accordingly as needed. We will hold off the resumption of her glipizide medications because of the variability of her oral intake and also because of very poor appetite at this point in time. We will obtain serial chemistries and supplement accordingly as needed. We will follow and advice accordingly. Lucia Corley MD
--- NOTE | 2017-08-20 08:53 | CP.PCM.PN ---
Subjective - Date & Time of Evaluation Date of Evaluation: 08/20/17 Time of Evaluation: 08:44 - Subjective Subjective: Seated on EOB eating breakfast. Appears comfortable at rest. Vital signs have been stable, remains afebrile. SpO2 presently 92%. Dependant edema has resolved and weight has decreased by 4+ pounds. Last CXR looked less congested, but left CP angle still blunted and lateral view suggested persistent effusion. On exam there is still dullness in the left base. Breath sounds are diminished bilaterally especially so in the left base posteriorly. No audible wheezing or bronchial breathing. No rales heard. No dependant edema or cyanosis. For repeat CXR this morning. Discussed with cardiology, no FFB to be entertained until cardiac stress imaging is done. Patient again seems reluctant to proceed with further testing at this time. Objective - Vital Signs/Intake and Output Vital Signs (last 24 hours): Temp Pulse Resp BP Pulse Ox 97.4 F L 71 18 137/72 99 08/20/17 08:17 08/20/17 08:17 08/20/17 08:17 08/20/17 08:17 08/20/17 08:17 Intake and Output: 08/19/17 08/20/17 23:59 11:59 Intake Total 850 Balance 850 - Medications Medications: Current Medications Aspirin (Ecotrin) 81 mg PO DAILY [facility] Last Admin: 08/19/17 09:12 Dose: 81 mg Enoxaparin Sodium (Lovenox) 40 mg SC DAILY [facility] PRN Reason: Protocol Last Admin: 08/19/17 09:13 Dose: 40 mg Famotidine (Pepcid) 20 mg PO DAILY [facility] Last Admin: 08/19/17 09:13 Dose: 20 mg Furosemide (Lasix) 40 mg IVP DAILY [facility] Last Admin: 08/19/17 09:13 Dose: 40 mg Glipizide (Glucotrol Xl) 2.5 mg PO ACD [facility] Last Admin: 08/19/17 16:17 Dose: 2.5 mg Insulin Human Regular (Humulin R) 0 units SC ACBD [facility] PRN Reason: Protocol Last Admin: 08/20/17 06:39 Dose: Not Given Methimazole (Tapazole) 5 mg PO DAILY [facility] Last Admin: 08/19/17 09:14 Dose: 5 mg Metoprolol Tartrate (Lopressor) 25 mg PO Q12 [facility] Last Admin: 08/19/17 20:43 Dose: Not Given - Labs Labs: 08/17/17 05:30 08/19/17 04:55 PT 11.9 Seconds (9.8-13.1) 08/15/17 16:00 INR 1.1 (0.9-1.2) 08/15/17 16:00 APTT 31.9 Seconds (25.6-37.1) 08/15/17 16:00 Assessment and Plan (1) Hypoxia Status: Acute (2) Pleural effusion Status: Acute (3) Atelectasis Status: Acute
[2017-08-20] MEDS: methIMAzole 5 MG TAB PO SCH (09:06)
[2017-08-20] MEDS: Enoxaparin 40 mg Syringe SC SCH (09:06)
--- NOTE | 2017-08-20 09:21 | CP.PCM.PN ---
Subjective - Date & Time of Evaluation Date of Evaluation: 08/20/17 Time of Evaluation: 08:30 - Subjective Subjective: NO CHEST PAIN BREATHING BETTER, LESS HARLEY WHEN WALKING IN HALLWAY Objective - Vital Signs/Intake and Output Vital Signs (last 24 hours): Temp Pulse Resp BP Pulse Ox 97.4 F L 71 18 137/72 99 08/20/17 08:17 08/20/17 09:05 08/20/17 08:17 08/20/17 09:06 08/20/17 08:17 - Medications Medications: Current Medications Aspirin (Ecotrin) 81 mg PO DAILY [facility] Last Admin: 08/20/17 09:06 Dose: 81 mg Enoxaparin Sodium (Lovenox) 40 mg SC DAILY [facility] PRN Reason: Protocol Last Admin: 08/20/17 09:06 Dose: 40 mg Famotidine (Pepcid) 20 mg PO DAILY [facility] Last Admin: 08/20/17 09:06 Dose: 20 mg Furosemide (Lasix) 40 mg IVP DAILY [facility] Last Admin: 08/20/17 09:06 Dose: 40 mg Glipizide (Glucotrol Xl) 2.5 mg PO ACD [facility] Last Admin: 08/19/17 16:17 Dose: 2.5 mg Insulin Human Regular (Humulin R) 0 units SC ACBD [facility] PRN Reason: Protocol Last Admin: 08/20/17 06:39 Dose: Not Given Methimazole (Tapazole) 5 mg PO DAILY [facility] Last Admin: 08/20/17 09:06 Dose: 5 mg Metoprolol Tartrate (Lopressor) 25 mg PO Q12 [facility] Last Admin: 08/20/17 09:05 Dose: 25 mg - Labs Labs: 08/17/17 05:30 08/19/17 04:55 PT 11.9 Seconds (9.8-13.1) 08/15/17 16:00 INR 1.1 (0.9-1.2) 08/15/17 16:00 APTT 31.9 Seconds (25.6-37.1) 08/15/17 16:00 - Respiratory Exam Additional comments: DECREASED BREATH SOUNDS AT THE BASES, L>R - Cardiovascular Exam Cardiovascular Exam: REGULAR RHYTHM, +S1, +S2 - Extremities Exam Extremities Exam: Normal Inspection - Additional Findings Additional findings: PATIENT'S WEIGHT HAS DECREASED FROM 150 TO 146 IN 3 DAYS ON IV FUROSEMIDE Assessment and Plan - Assessment and Plan (Free Text) Assessment: CHRONIC DIASTOLIC CHF HYPERTENSION EX SMOKER WITH CHRONIC LUNG CHANGES Plan: CONTINUE FUROSEMIDE, METOPROLOL, ASPIRIN, LOVENOX THE PATIENT MAY BE DISCHARGED FROM THE CARDIAC VIEWPOINT AND WILL BE SCHEDULED FOR AN OUT PATIENT PHARMACOLOGICAL STRESS TEST IF SHE AGREES
--- NOTE | 2017-08-20 11:01 | RAD ---
HISTORY: pleural effusion COMPARISON: Chest radiograph dated 08/18/2017. TECHNIQUE: Chest PA and lateral FINDINGS: LUNGS: Pulmonary vascular congestion. Left basilar atelectasis. PLEURA: Interval decrease in size of small left pleural effusion. No pneumothorax apparent. CARDIOVASCULAR: Atherosclerotic aortic calcifications. Cardiomediastinal silhouette unchanged. OSSEOUS STRUCTURES: Unchanged. VISUALIZED UPPER ABDOMEN: Normal. OTHER FINDINGS: None. IMPRESSION: Slight interval decrease in size of small left pleural effusion.
--- NOTE | 2017-08-20 14:56 | PN ---
DATE: ENDOCRINOLOGY FOLLOWUP NOTE LOCATION: In [facility], bed 1. This is a 77-year-old female with recent overt congestive heart failure on admission with progressive shortness of breath, which has improved clinically and hemodynamically as noted thereof. Her glycemic levels are also near optimal ranging from 99-118 and 169 mg/dL. The latest chemistries showed a BUN of 36, sodium 138, potassium 4.3, chloride 101, CO2 of 30, glucose 135 and creatinine 1.0. Her thyroid studies with a T4 of 6.74 with a TSH of 2.74. So at this time, we will continue the same Tapazole given in the low dose of 5 mg once daily as ordered. We will also continue the glipizide given as 2.5 mg p.o. once daily before dinner as ordered. We will continue the low dose correction scale using regular insulin as ordered. We will obtain serial chemistry and supplement accordingly as needed. We will follow. Lucia Corley MD
--- NOTE | 2017-08-20 14:57 | CP.PCM.PCO ---
Assessment & Plan - Assessment and Plan (Free Text) Assessment: pt. ambulated in hallway without oxygen pt. doing well, denies sob, cough or chest pain oxygen saturation monitored throughout ambulation and pt. O2Sat 94-96% on Room air x 6 minutes
[2017-08-20] MEDS: GlipiZIDE 2.5 mg SR Tab PO SCH (17:10)
--- NOTE | 2017-08-20 19:53 | CP.PCM.PN ---
Subjective - Date & Time of Evaluation Date of Evaluation: 08/20/17 Time of Evaluation: 22:22 - Subjective Subjective: Above noted Objective - Vital Signs/Intake and Output Vital Signs (last 24 hours): Temp Pulse Resp BP Pulse Ox 98.4 F 68 16 112/64 96 08/20/17 17:00 08/20/17 17:00 08/20/17 17:00 08/20/17 17:00 08/20/17 17:00 Intake and Output: 08/20/17 08/21/17 18:59 06:59 Intake Total 200 Output Total 300 Balance -100 - Medications Medications: Current Medications Aspirin (Ecotrin) 81 mg PO DAILY [facility] Last Admin: 08/20/17 09:06 Dose: 81 mg Enoxaparin Sodium (Lovenox) 40 mg SC DAILY [facility] PRN Reason: Protocol Last Admin: 08/20/17 09:06 Dose: 40 mg Famotidine (Pepcid) 20 mg PO DAILY [facility] Last Admin: 08/20/17 09:06 Dose: 20 mg Furosemide (Lasix) 40 mg IVP DAILY [facility] Last Admin: 08/20/17 09:06 Dose: 40 mg Glipizide (Glucotrol Xl) 2.5 mg PO ACD [facility] Last Admin: 08/20/17 17:10 Dose: 2.5 mg Insulin Human Regular (Humulin R) 0 units SC ACBD [facility] PRN Reason: Protocol Last Admin: 08/20/17 17:04 Dose: Not Given Methimazole (Tapazole) 5 mg PO DAILY [facility] Last Admin: 08/20/17 09:06 Dose: 5 mg Metoprolol Tartrate (Lopressor) 25 mg PO Q12 [facility] Last Admin: 08/20/17 09:05 Dose: 25 mg - Labs Labs: 08/17/17 05:30 08/19/17 04:55 PT 11.9 Seconds (9.8-13.1) 08/15/17 16:00 INR 1.1 (0.9-1.2) 08/15/17 16:00 APTT 31.9 Seconds (25.6-37.1) 08/15/17 16:00 - Respiratory Exam Respiratory Exam: NORMAL BREATHING PATTERN - Cardiovascular Exam Cardiovascular Exam: REGULAR RHYTHM - GI/Abdominal Exam GI & Abdominal Exam: Normal Bowel Sounds Assessment and Plan - Assessment and Plan (Free Text) Assessment: Hypoxia etiol? Hx COPD CHF Diast Cardiology Pulmonary NIDDM Thyroid dx Endo
[2017-08-21] MEDS: Insulin Regular 100 units/ml SC SCH (06:58)
[2017-08-21 08:09] VITALS: RESP 18
--- NOTE | 2017-08-21 09:25 | CP.PCM.PN ---
Subjective - Date & Time of Evaluation Date of Evaluation: 08/21/17 Time of Evaluation: 09:20 - Subjective Subjective: BREATHING BETTER NO CHEST PAIN Objective - Vital Signs/Intake and Output Vital Signs (last 24 hours): Temp Pulse Resp BP Pulse Ox 98.0 F 75 18 130/67 97 08/21/17 08:00 08/21/17 08:00 08/21/17 08:00 08/21/17 08:00 08/21/17 08:00 - Medications Medications: Current Medications Aspirin (Ecotrin) 81 mg PO DAILY [facility] Last Admin: 08/20/17 09:06 Dose: 81 mg Enoxaparin Sodium (Lovenox) 40 mg SC DAILY [facility] PRN Reason: Protocol Last Admin: 08/20/17 09:06 Dose: 40 mg Famotidine (Pepcid) 20 mg PO DAILY [facility] Last Admin: 08/20/17 09:06 Dose: 20 mg Furosemide (Lasix) 40 mg PO DAILY [facility] Glipizide (Glucotrol Xl) 2.5 mg PO ACD [facility] Last Admin: 08/20/17 17:10 Dose: 2.5 mg Insulin Human Regular (Humulin R) 0 units SC ACBD [facility] PRN Reason: Protocol Last Admin: 08/21/17 06:58 Dose: Not Given Methimazole (Tapazole) 5 mg PO DAILY [facility] Last Admin: 08/20/17 09:06 Dose: 5 mg Metoprolol Tartrate (Lopressor) 25 mg PO Q12 [facility] Last Admin: 08/20/17 21:25 Dose: 25 mg - Labs Labs: 08/17/17 05:30 08/19/17 04:55 PT 11.9 Seconds (9.8-13.1) 08/15/17 16:00 INR 1.1 (0.9-1.2) 08/15/17 16:00 APTT 31.9 Seconds (25.6-37.1) 08/15/17 16:00 - Respiratory Exam Additional comments: DECREASED BREATH SOUNDS - Cardiovascular Exam Cardiovascular Exam: REGULAR RHYTHM, +S1, +S2 - Extremities Exam Extremities Exam: Normal Inspection - Additional Findings 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
--- NOTE | 2017-08-21 09:27 | CP.PCM.PN ---
Subjective - Date & Time of Evaluation Date of Evaluation: 08/21/17 Time of Evaluation: 09:17 - Subjective Subjective: Clinically appears to have done well on the current regimen. CXR from the other day showed improvement, but not complete clearing. Ambulatory w/o oxygen, and yesterday's note documents satisfactory SpO2 while ambulating. SpO2 at the present time is 91% on room air after ambulating in her room. Weight is now stable with at least 4 pounds decrease on diuretic. Dependant edema is essentially resolved. No cyanosis noted. Breath sounds are still decreased in the left base posteriorly w/o bronchial breathing or egophony. The right lung is essentially clear on auscultation with normal resonance to percussion. At this time she can probably be discharged to home. She states that the importance of medication adherence is understood. She agrees to follow up with cardiology and have stress Myoview testing done after the new year. A follow up chest x-ray should be done when she comes for her stress test. No need for home oxygen. Objective - Vital Signs/Intake and Output Vital Signs (last 24 hours): Temp Pulse Resp BP Pulse Ox 98.0 F 75 18 130/67 97 08/21/17 08:00 08/21/17 08:00 08/21/17 08:00 08/21/17 08:00 08/21/17 08:00 Intake and Output: 08/20/17 08/21/17 23:59 11:59 Intake Total 200 Output Total 300 Balance -100 - Medications Medications: Current Medications Aspirin (Ecotrin) 81 mg PO DAILY [facility] Last Admin: 08/20/17 09:06 Dose: 81 mg Enoxaparin Sodium (Lovenox) 40 mg SC DAILY [facility] PRN Reason: Protocol Last Admin: 08/20/17 09:06 Dose: 40 mg Famotidine (Pepcid) 20 mg PO DAILY [facility] Last Admin: 08/20/17 09:06 Dose: 20 mg Furosemide (Lasix) 40 mg IVP DAILY [facility] Last Admin: 08/20/17 09:06 Dose: 40 mg Glipizide (Glucotrol Xl) 2.5 mg PO ACD [facility] Last Admin: 08/20/17 17:10 Dose: 2.5 mg Insulin Human Regular (Humulin R) 0 units SC ACBD [facility] PRN Reason: Protocol Last Admin: 08/21/17 06:58 Dose: Not Given Methimazole (Tapazole) 5 mg PO DAILY [facility] Last Admin: 08/20/17 09:06 Dose: 5 mg Metoprolol Tartrate (Lopressor) 25 mg PO Q12 [facility] Last Admin: 08/20/17 21:25 Dose: 25 mg - Labs Labs: 08/17/17 05:30 08/19/17 04:55 PT 11.9 Seconds (9.8-13.1) 08/15/17 16:00 INR 1.1 (0.9-1.2) 08/15/17 16:00 APTT 31.9 Seconds (25.6-37.1) 08/15/17 16:00 Assessment and Plan (1) Hypoxia Status: Resolved (2) Pleural effusion Status: Acute (3) Atelectasis Status: Acute
[2017-08-21] MEDS: Enoxaparin 40 mg Syringe SC SCH (10:01)
[2017-08-21] MEDS: methIMAzole 5 MG TAB PO SCH (10:02)
[2017-08-21 11:53] VITALS: BP 142/63; PULSE 68; TEMP 97.8; O2SAT 100
--- NOTE | 2017-08-21 19:48 | CP.PCM.PN ---
Subjective - Date & Time of Evaluation Date of Evaluation: 08/21/17 Time of Evaluation: 22:22 - Subjective Subjective: Above noted Objective - Vital Signs/Intake and Output Vital Signs (last 24 hours): Temp Pulse Resp BP Pulse Ox 97.8 F 68 18 142/63 100 08/21/17 11:52 08/21/17 11:52 08/21/17 11:52 08/21/17 11:52 08/21/17 11:52 - Labs Labs: 08/17/17 05:30 08/19/17 04:55 PT 11.9 Seconds (9.8-13.1) 08/15/17 16:00 INR 1.1 (0.9-1.2) 08/15/17 16:00 APTT 31.9 Seconds (25.6-37.1) 08/15/17 16:00 - Respiratory Exam Respiratory Exam: NORMAL BREATHING PATTERN - Cardiovascular Exam Cardiovascular Exam: REGULAR RHYTHM - GI/Abdominal Exam GI & Abdominal Exam: Normal Bowel Sounds Assessment and Plan - Assessment and Plan (Free Text) Assessment: Hypoxia Hx COPD CHF Diast Cardiology Pulmonary NIDDM Thyroid dx Endo
--- NOTE | 2017-08-22 09:48 | PN ---
DATE: ENDOCRINOLOGY FOLLOWUP NOTE LOCATION: Room 410. SUBJECTIVE: This is a 77-year-old female with recent congestive heart failure and has since then improved clinically and hemodynamically as noted thereof. Her glycemic level has remained much improved at this time, and the latest glucose levels have ranged from 74 to 104 and 138 mg/dL. Her latest chemistries showed a BUN of 36, sodium 138, potassium 4.3, chloride 101, CO2 of 30, glucose 135, and creatinine 1.0. So, at this time, we will continue the low-dose glipizide given as 2.5 mg once daily at dinner time and this is actually an extended release medication as ordered. We will also continue the Tapazole given as 5 mg once daily as ordered. We will titrate incrementally as indicated to optimize metabolic control. We will follow. Lucia Corley MD
== END 2017-08-21 15:10 | disposition home or self-care (01) | DRG 292 ==
LOC: H.ER 14:51 → H.ERHOLD 17:15 → H.TEL 20:03
PROVIDERS: ADMIT Family Medicine Geriatric Medicine; ATTEND Family Medicine Geriatric Medicine
DX: I11.0 Hypertensive heart disease with heart failure (principal); J98.11 Atelectasis; I50.32 Chronic diastolic (congestive) heart failure; E05.90 Thyrotoxicosis, unspecified without thyrotoxic crisis or storm; E11.9 Type 2 diabetes mellitus without complications; D64.9 Anemia, unspecified; J44.9 Chronic obstructive pulmonary disease, unspecified; E78.5 Hyperlipidemia, unspecified; R09.02 Hypoxemia; K59.00 Constipation, unspecified; Z91.19 Patient's noncompliance with other medical treatment and regimen; Z79.82 Long term (current) use of aspirin; Z79.84 Long term (current) use of oral hypoglycemic drugs; Z87.01 Personal history of pneumonia (recurrent); Z87.442 Personal history of urinary calculi; Z87.891 Personal history of nicotine dependence

== ENCOUNTER 2017-11-02 16:31 | Inpatient (IN) | payer MEDICARE ==
[2017-11-02 16:31] VITALS: BMI 26.5
--- NOTE | 2017-11-02 16:42 | ED PDOC ---
Lower Extremity Pain/Injury Time Seen by Provider: 11/02/17 16:41 Chief Complaint (Nursing): Lower Extremity Problem/Injury Chief Complaint (Provider): foot pain Additional Complaint(s): 77-year-old female with history of hyperthyroidism, hypertension and CHF presents to emergency department with pain and swelling to bilateral lower extremities 3 days. Patient also has fluid-filled blister to left foot 2 days. She has an older blister to left bravo that already popped and she has been applying Neosporin. Patient denies fever or chills, no shortness of breath or chest pain. No associated dyspnea on exertion. PMD: Dr. Cintron Past Medical History Reviewed: Historical Data, Nursing Documentation, Vital Signs Vital Signs: Last Vital Signs Temp 97.2 F L 11/02/17 16:36 Pulse 107 H 11/02/17 16:36 Resp 20 11/02/17 16:36 BP 127/58 L 11/02/17 16:36 Pulse Ox 94 L 11/02/17 16:36 - Medical History PMH: CHF, Diabetes, HTN, Hypercholesterolemia, Hyperthyroidism, Peripheral Edema - Surgical History Surgical History: Appendectomy - Family History Family History: States: No Known Family Hx - Living Arrangements Living Arrangements: Alone - Social History Current smoker - smoking cessation education provided: No Alcohol: None Drugs: Denies - Home Medications Home Medications: Ambulatory Orders Medication Instructions Recorded Enalapril Maleate [Vasotec] 2.5 mg PO DAILY 11/02/17 Famotidine [Pepcid] 20 mg PO DAILY 11/02/17 Furosemide [Lasix] 40 mg PO DAILY 11/02/17 GlipiZIDE SR [Glucotrol XL] 2.5 mg PO DAILY 11/02/17 Metoprolol Tartrate [Lopressor] 25 mg PO Q12 11/02/17 methIMAzole [Tapazole] 4 mg PO DAILY 11/02/17 - Allergies Allergies/Adverse Reactions: Allergies Allergy/AdvReac Type Severity Reaction Status Date / Time No Known Allergies Allergy Verified 07/25/17 16:13 Wells Criteria for PE - Wells Criteria for Pulmonary Embolism Clinical Signs and Symptoms of DVT: Yes P.E is #1 Diagnosis, or Equally Likely: No Heart Rate >100: Yes Immobilization at least 3 days;Surgery previous 4 weeks: No Previous, objectively diagnosed PE or DVT: No Hemoptysis: No Malignancy w/treatment within 6 months, or palliative: No Total Score: 4.5 Review of Systems ROS Statement: Except As Marked, All Systems Reviewed And Found Negative Constitutional: Negative for: Fever, Chills Cardiovascular: Negative for: Chest Pain Respiratory: Negative for: Cough, Shortness of Breath, SOB with Exertion Gastrointestinal: Negative for: Nausea, Vomiting Musculoskeletal: Positive for: Other (bilateral leg pain and swelling, blister to left foot) Neurological: Negative for: Headache, Dizziness Physical Exam - Reviewed Nursing Documentation Reviewed: Yes Vital Signs Reviewed: Yes - Physical Exam Appears: Positive for: Well, Non-toxic, No Acute Distress Skin: Negative for: Rash Eye Exam: Positive for: Normal appearance Cardiovascular/Chest: Positive for: Regular Rate, Rhythm Respiratory: Positive for: Normal Breath Sounds. Negative for: Wheezing, Respiratory Distress Extremity: Positive for: Other (2+ pitting edema to bilateral lower extremities standing proximately to knees, large fluid filled blister to dorsum of left foot , open wound left shift with mild tenderness to palpation) Neurologic/Psych: Positive for: Alert, Oriented - Laboratory Results Result Diagrams: 11/03/17 05:30 11/03/17 05:30 - ECG Interpretation Of ECG: NSR 98 bpm, no acute finding, reviewed by PA and ED attending O2 Sat by Pulse Oximetry: 94 Pulse Ox Interpretation: Normal - Other Rad CXR X-Ray: Interpreted by Me, Viewed By Me X-Ray Interpretation: Left pleural effusion Doppler b/l lower extremities X-Ray: Read By Radiologist X-Ray Interpretation: Edema, no DVT Medical Decision Making Medical Decision Makin77 year old with leg swelling and blister to left foot Plan: CBC CMP Trop BNP CXR Doppler both legs Podiatry consult - case was d/w podiatry resident Dr. Roseann Gordon, she states she will see patient. 6:00 pm: Dr. Gordon at bedside, drained blister on left foot and applied sterile dressing. She also obtained wound culture from left bravo wound and dressed wounds BNP is 10,400 - IV lasix ordered. PMD is Dr. Cintron, case was d/w him, he states to admit patient to telemetry and consult Dr. Stockton, Walker and Finn. UTI noted, 1 gram IV rocephin noted Case was d/w Dr. Stockton for consult. Dr. Covarrubias is covering for Dr. Wright, message left with his service, no call back despite 3 calls made, consult ordered. Disposition - Clinical Impression Clinical Impression: CHF exacerbation - Disposition Disposition Time: 10:56 Condition: FAIR Results - Lab Results Lab Results: 11/02/17 11/02/17 17:22 17:22 WBC 7.9 RBC 3.93 Hgb 11.0 L D Hct 34.1 MCV 86.7 MCH 27.9 MCHC 32.2 L RDW 18.7 H Plt Count 216 D MPV 8.4 Neut % (Auto) 86.1 H Lymph % (Auto) 4.7 L [place] % (Auto) 8.4 Eos % (Auto) 0.3 Baso % (Auto) 0.5 Neut # (Auto) 6.8 Lymph # (Auto) 0.4 L [place] # (Auto) 0.7 Eos # (Auto) 0.0 Baso # (Auto) 0.0 Neutrophils % (Manual) 87 H Lymphocytes % (Manual) 6 L Monocytes % (Manual) 7 Platelet Estimate Normal Anisocytosis (manual) Slight Ovalocytes Slight Sodium 145 Potassium 3.7 Chloride 105 Carbon Dioxide 25 Anion Gap 19 BUN 27 H Creatinine 0.8 Est GFR ( Amer) > 60 Est GFR (Non-Af Amer) > 60 Random Glucose 133 H Calcium 9.4 Total Bilirubin 1.5 H AST 15 ALT 26 Alkaline Phosphatase 84 Troponin I 0.0460 NT-Pro-B Natriuret Pep 31932 H Total Protein 6.7 Albumin 3.6 Globulin 3.0 Albumin/Globulin Ratio 1.2
[2017-11-02 17:41] LABS: BASO % 0.5 % (0.0-2.0); EOS % 0.3 % (0.0-4.0); LYMPH # 0.4 K/uL (1.0-4.3); LYMPH % 4.7 % (20.0-40.0); MEAN CELL VOLUME 86.7 fl (81.0-99.0); MEAN CORPUSCULAR HEMOGLOBIN 27.9 pg (27.0-31.0); MEAN CORPUSCULAR HGB CONC 32.2 g/dL (33.0-37.0); MEAN PLATELET VOLUME 8.4 fl (7.2-11.7); MONO # 0.7 K/uL (0.0-0.8); MONO % 8.4 % (0.0-10.0); NEUT # 6.8 K/uL (1.8-7.0); NEUT % 86.1 % (50.0-75.0); NRBC % 0.1 % (0.0-0.0); PLATELET COUNT 216 K/uL (130-400); RBC 3.93 Mil/uL (3.80-5.20); RED CELL DISTRIBUTION WIDTH 18.7 % (11.5-14.5); WHITE BLOOD COUNT 7.9 K/uL (4.8-10.8)
[2017-11-02 17:56] LABS: B-TYPE NATRIURETIC PEPTIDE 10400 pg/ml (0-900)
[2017-11-02] MEDS ORDERED: Silver Sulfadiazine 1% CREAM (50 gm) TOP STA (18:01)
[2017-11-02 18:13] LABS: ALB/GLOB RATIO 1.2 (1.0-2.1); ALBUMIN 3.6 g/dL (3.5-5.0); ALT/SGPT 26 U/L (9-52); AST/SGOT 15 U/L (14-36); BLOOD UREA NITROGEN 27 mg/dl (7-17); CALCIUM 9.4 mg/dL (8.4-10.2); GFR AFRICAN-AMERICAN > 60; GFR NON-AFRICAN AMERICAN > 60
--- NOTE | 2017-11-02 18:27 | CP.PCM.CON ---
History of Present Illness - History of Present Illness History of Present Illness: 77 y/o female with pmhx of CHF, Diabetes, HTN, Hypercholesterolemia, Hyperthyroidism, Peripheral Edema, seen in the ED for bilateral leg swelling and blisters to left lower extremity. Patient states that she has had the blisters for 2 days and popped the blister on her left leg herself and then applied neosporin to it. Patient states that she has never had blisters to her legs in the past but noticed that she started taking a new medication given by her power manager. Patient denies any other pedal complaints at this time. She states that she has mild calf pain in her right leg. Patient denies n/f/v/d/c/ sob. Review of Systems - Constitutional Constitutional: As Per HPI Past Patient History - Infectious Disease Hx of Infectious Diseases: None - Past Medical History & Family History Past Medical History?: Yes - Past Social History Alcohol: None Drugs: Denies - CARDIAC Hx Congestive Heart Failure: Yes Hx Hypercholesterolemia: Yes Hx Hypertension: Yes Hx Peripheral Edema: Yes - PULMONARY Hx Bronchitis: Yes Hx Pneumonia: Yes - NEUROLOGICAL Hx Neurological Disorder: No - HEENT Hx HEENT Problems: No - RENAL Hx Chronic Kidney Disease: Yes Hx Kidney Stones: Yes (kidney stone removal) - ENDOCRINE/METABOLIC Hx Hyperthyroidism: Yes - HEMATOLOGICAL/ONCOLOGICAL Hx Human Immunodeficiency Virus (HIV): No - INTEGUMENTARY Hx Dermatological Problems: No - MUSCULOSKELETAL/RHEUMATOLOGICAL Hx Musculoskeletal Disorders: No Hx Falls: Yes - GASTROINTESTINAL Hx Gastrointestinal Disorders: No - GENITOURINARY/GYNECOLOGICAL Hx Genitourinary Disorders: No - PSYCHIATRIC Hx Psychophysiologic Disorder: No Hx Substance Use: No - SURGICAL HISTORY Hx Appendectomy: Yes - ANESTHESIA Hx Anesthesia: Yes Hx Anesthesia Reactions: No Hx Malignant Hyperthermia: No Meds Allergies/Adverse Reactions: Allergies Allergy/AdvReac Type Severity Reaction Status Date / Time No Known Allergies Allergy Verified 07/25/17 16:13 - Medications Medications: Current Medications Furosemide (Lasix) 40 mg IV STAT STA Stop: 11/02/17 18:12 Silver Sulfadiazine (Silvadene 1% 50 Gm) 1 applic TOP STAT STA Stop: 11/02/17 18:02 Physical Exam - Constitutional Appears: Well, Non-toxic, No Acute Distress - Extremities Exam Additional comments: vasc: nonpalpable DP and PT pulses due to +2 pitting edema of foot and legs, TG wnl, CFT < 4 sec to all digits neuro: grossly diminished derm: +2 pitting edema to bilateral lower extremities, opened blister noted to left anterior bravo with no drainage, slight discoloration, no malodor, no fluctuance blister noted to dorsal forefoot filled with serous fluid, no ascending cellulitis, no acute clinical signs of infection ortho: mild tenderness to palpation of posterior leg bilateral - Neurological Exam Neurological exam: Alert, Oriented x3 - Psychiatric Exam Psychiatric exam: Normal Affect, Normal Mood Results - Vital Signs Recent Vital Signs: Last Vital Signs Temp 97.2 F L 11/02/17 16:36 Pulse 107 H 11/02/17 16:36 Resp 20 11/02/17 16:36 BP 127/58 L 11/02/17 16:36 Pulse Ox 94 L 11/02/17 18:16 - Labs Result Diagrams: 11/02/17 17:22 11/02/17 17:22 Labs: Laboratory Results - last 24 hr 11/02/17 11/02/17 17:22 17:22 WBC 7.9 RBC 3.93 Hgb 11.0 L D Hct 34.1 MCV 86.7 MCH 27.9 MCHC 32.2 L RDW 18.7 H Plt Count 216 D MPV 8.4 Neut % (Auto) 86.1 H Lymph % (Auto) 4.7 L [place] % (Auto) 8.4 Eos % (Auto) 0.3 Baso % (Auto) 0.5 Neut # (Auto) 6.8 Lymph # (Auto) 0.4 L [place] # (Auto) 0.7 Eos # (Auto) 0.0 Baso # (Auto) 0.0 Sodium 145 Potassium 3.7 Chloride 105 Carbon Dioxide 25 Anion Gap 19 BUN 27 H Creatinine 0.8 Est GFR ( Amer) > 60 Est GFR (Non-Af Amer) > 60 Random Glucose 133 H Calcium 9.4 Total Bilirubin 1.5 H AST 15 ALT 26 Alkaline Phosphatase 84 Troponin I 0.0460 NT-Pro-B Natriuret Pep 11022 H Total Protein 6.7 Albumin 3.6 Globulin 3.0 Albumin/Globulin Ratio 1.2 Assessment & Plan - Assessment and Plan (Free Text) Assessment: 77 y/o female with pmhx of CHF, Diabetes, HTN, Hypercholesterolemia, Hyperthyroidism, Peripheral Edema, seen at bedside in the ED for bilateral lower extremity swelling with blister formations secondary to CHF Plan: patient evaluated and chart reviewed discussed in detail with attending Dr. Brunner labs and vitals reviewed; afebrile, WBC 7.9 blister of left foot drained with #11 blade, without incident applied silvadene, DSD to LLE f/u venous duplex studies to R/O DVT wound cx of left leg obtained patient will likely be admitted podiatry will continue to monitor while patient remains in house
[2017-11-02] MEDS ORDERED: Silver Sulfadiazine 1% CREAM (50 gm) ONE (19:07)
[2017-11-02 19:55] LABS: SQUAMOUS EPITHIAL 3 /hpf (0-5); URINE BACTERIA RARE (<OCC); URINE BILIRUBIN NEGATIVE (NEGATIVE); URINE BLOOD SMALL (NEGATIVE); URINE CLARITY SLIGHTY-CLOUDY (Clear); URINE COLOR YELLOW (YELLOW); URINE GLUCOSE (UA) NEG (Normal); URINE HYALINE CAST 0-2 /hpf (0-2); URINE LEUKOCYTE ESTERASE MOD Leu/uL (Negative); URINE PROTEIN 100 mg/dL (NEGATIVE); URINE UROBILINOGEN 0.2-1.0 mg/dL (0.2-1.0)
[2017-11-02] MEDS ORDERED: cefTRIAXone (Rocephin) 1 gm Inj ONE (20:22)
--- NOTE | 2017-11-02 20:35 | US ---
EXAM: US Duplex Bilateral Lower Extremity Veins CLINICAL HISTORY: 77 years old, female; Pain; Leg, lower; Bilateral; Additional info: Swelling to both legs TECHNIQUE: Real-time ultrasound scan of the veins of the bilateral lower extremities with color Doppler flow, spectral waveform analysis and compression. COMPARISON: No relevant prior studies available. FINDINGS: Right deep veins: No acute abnormality as visualized. No DVT in the right common femoral, femoral, proximal deep femoral, popliteal or posterior tibial veins. The veins demonstrate normal color flow, are normally compressible, with normal phasic flow and/or augmentation response. Left deep veins: No acute abnormality as visualized. No DVT in the left common femoral, femoral, proximal deep femoral, popliteal or posterior tibial veins. The veins demonstrate normal color flow, are normally compressible, with normal phasic flow and/or augmentation response. Soft tissue: Edema. IMPRESSION: No evidence of deep venous thrombosis in the visualized veins of the bilateral lower extremities. Edema.
[2017-11-02 21:45] LABS: ANISOCYTOSIS SLIGHT; LYMPHOCYTE 6 % (20-50); MONOCYTE 7 % (0-10); NEUTROPHIL 87 % (42-75); PLATELET ESTIMATE NORMAL (NORMAL); TOTAL CELLS COUNTED 100
[2017-11-02 21:47] LABS: OVALOCYTES SLIGHT
[2017-11-03 07:18] LABS: HEMOGLOBIN 9.1 g/dL (12.0-16.0); MEAN CORPUSCULAR HEMOGLOBIN 27.6 pg (27.0-31.0); MEAN CORPUSCULAR HGB CONC 32.1 g/dL (33.0-37.0); RBC 3.28 Mil/uL (3.80-5.20); RED CELL DISTRIBUTION WIDTH 18.4 % (11.5-14.5); WHITE BLOOD COUNT 7.3 K/uL (4.8-10.8)
[2017-11-03 07:37] LABS: ALB/GLOB RATIO 1.1 (1.0-2.1); ALBUMIN 3.2 g/dL (3.5-5.0); ALT/SGPT 27 U/L (9-52); AST/SGOT 17 U/L (14-36); BLOOD UREA NITROGEN 27 mg/dl (7-17); CALCIUM 9.1 mg/dL (8.4-10.2); GFR AFRICAN-AMERICAN > 60; GFR NON-AFRICAN AMERICAN > 60; HDL CHOLESTEROL 38 MG/DL (30-70)
[2017-11-03 07:47] LABS: LDL CHOLESTEROL 58 mg/dL (0-129)
[2017-11-03] MEDS ORDERED: methIMAzole 5 MG TAB PO SCH (09:00)
[2017-11-03] MEDS ORDERED: Magnesium Hydroxide Susp 30 ml UD PO ONE (09:00)
--- NOTE | 2017-11-03 09:35 | RAD ---
HISTORY: clearance COMPARISON: 10/15/2017 FINDINGS: LUNGS: Bilateral interstitial changes. PLEURA: Left pleural effusion. CARDIOVASCULAR: Normal. OSSEOUS STRUCTURES: No significant abnormalities. VISUALIZED UPPER ABDOMEN: Normal. OTHER FINDINGS: None. IMPRESSION: As above.
[2017-11-03] MEDS: GlipiZIDE 2.5 mg SR Tab PO SCH (09:46)
[2017-11-03] MEDS: Enoxaparin 40 mg Syringe SC SCH (09:47)
--- NOTE | 2017-11-03 10:37 | CARD ---
APPROVED REPORT EKG Measurement Heart [id number] <Conclusion> Normal sinus rhythm Nonspecific ST and T wave abnormality Abnormal ECG
--- NOTE | 2017-11-03 10:53 | CP.PCM.PN ---
Subjective - Date & Time of Evaluation Date of Evaluation: 11/03/17 Time of Evaluation: 10:50 - Subjective Subjective: 77 y/o female seen at bedside for bilateral leg swelling and drained blisters to left lower extremity. Patient denies any acute events overnight. Patient's dressing to left lower extremity remains clean,dry,intact. Patient denies any other pedal complaints at this time. She states that she has mild calf pain in her right leg but the ultrasound was negative for DVT. Patient denies n/f/v/d/c/ sob. Objective - Vital Signs/Intake and Output Vital Signs (last 24 hours): Temp Pulse Resp BP Pulse Ox 97.6 F 66 18 125/67 94 L 11/03/17 08:47 11/03/17 09:46 11/03/17 08:47 11/03/17 09:46 11/03/17 08:47 - Medications Medications: Current Medications Acetaminophen (Tylenol 325mg Tab) 650 mg PO Q4 PRN PRN Reason: Pain, Mild (1-3) Last Admin: 11/03/17 01:39 Dose: 650 mg Enalapril Maleate (Vasotec) 2.5 mg PO DAILY [facility] Last Admin: 11/03/17 09:47 Dose: 2.5 mg Enoxaparin Sodium (Lovenox) 40 mg SC DAILY [facility] PRN Reason: Protocol Last Admin: 11/03/17 09:47 Dose: 40 mg Famotidine (Pepcid) 20 mg PO DAILY [facility] Last Admin: 11/03/17 09:47 Dose: 20 mg Furosemide (Lasix) 20 mg PO DAILY [facility] Last Admin: 11/03/17 09:46 Dose: 20 mg Glipizide (Glucotrol Xl) 2.5 mg PO DAILY [facility] Last Admin: 11/03/17 09:46 Dose: 2.5 mg Methimazole (Tapazole) 4 mg PO DAILY [facility] Metoprolol Tartrate (Lopressor) 25 mg PO Q12 [facility] Last Admin: 11/03/17 09:46 Dose: 25 mg - Labs Labs: 11/03/17 05:30 11/03/17 05:30 - Constitutional Appears: Well, Non-toxic, No Acute Distress - Extremities Exam Additional comments: vasc: nonpalpable DP and PT pulses due to +2 pitting edema of foot and legs, TG wnl, CFT < 4 sec to all digits neuro: grossly diminished derm: +2 pitting edema to bilateral lower extremities, opened blister noted to left anterior bravo with no drainage, slight discoloration, no malodor, no fluctuance drained/ de-roofed blister noted to dorsal forefoot filled with mild amount of serous fluid, no ascending cellulitis, no acute clinical signs of infection ortho: mild tenderness to palpation of posterior leg bilateral - Neurological Exam Neurological Exam: Alert, Awake, Oriented x3 - Psychiatric Exam Psychiatric exam: Normal Affect, Normal Mood Assessment and Plan - Assessment and Plan (Free Text) Assessment: 77 y/o female seen at bedside for bilateral lower extremity swelling with de- roofed blisters secondary to CHF Plan: patient evaluated and chart reviewed discussed in detail with attending Dr. Briseno labs and vitals reviewed; afebrile, WBC 7.3 applied xeroform, DSD to LLE venous duplex studies negative for DVT b/l f/u wound cx podiatry will continue to monitor while patient remains in house
--- NOTE | 2017-11-03 13:53 | CP.PCM.CON ---
History of Present Illness - History of Present Illness History of Present Illness: 77 y/o female with pmhx of CHF, Diabetes, HTN, Hypercholesterolemia, Hyperthyroidism, Peripheral Edema, seen for bilateral leg swelling and blisters to left lower extremity. Patient states that she has had the blisters for 2 days and popped the blister on her left leg herself and then applied neosporin to it. Patient states that she has never had blisters to her legs in the past but noticed that she started taking a new medication given by her ecology teacher. Patient denies any other pedal complaints at this time. She states that she has mild calf pain in her right leg. Patient denies n/f/v/d/c/sob. also c/o itchy rash on both lower extremities for over 1 month lives at home with a cat ( reportedly healthy) Rash itches at night and shes been scrathing Review of Systems Review of Systems - Constitutional Constitutional: As Per HPI - EENT Eyes: absent: As Per HPI, Blind Spots, Blurred Vision, Change in Vision, Decreased Night Vision, Diplopia, Discharge, Dry Eye, Exophthalmos, Floaters, Irritation, Itchy Eyes, Loss of Peripheral Vision, Pain, Photophobia, Requires Corrective Lenses, Sees Flashes, Spots in Vision, Tunnel Vision, Other Visual Disturbances, Loss of Vision, Other Ears: absent: As Per HPI, Decreased Hearing, Ear Discharge, Ear Pain, Tinnitus, Abnormal Hearing, Disequilibrium, Dizziness, Other Nose/Mouth/Throat: absent: As Per HPI, Epistaxis, Nasal Congestion, Nasal Discharge, Nasal Obstruction, Nasal Trauma, Nose Pain, Post Nasal Drip, Sinus Pain, Sinus Pressure, Bleeding Gums, Change in Voice, Dental Pain, Dry Mouth, Dysphagia, Halitosis, Hoarsness, Lip Swelling, Mouth Lesions, Mouth Pain, Odynophagia, Sore Throat, Throat Swelling, Tongue Swelling, Facial Pain, Neck Pain, Neck Mass, Other - Breasts Breasts: absent: As Per HPI, Change in Shape, Mass, Pain, Nipple Discharge, Nipple Inversion, Skin Changes, Swelling, Other - Cardiovascular Cardiovascular: absent: As Per HPI, Acrocyanosis, Chest Pain, Chest Pain at Rest , Chest Pain with Activity, Claudication, Diaphoresis, Dyspnea, Dyspnea on Exertion, Edema, Irregular Heart Rhythm, Pain Radiating to Arm/Neck/Jaw, Leg Edema, Leg Ulcers, Lightheadedness, Orthopnea, Palpitations, Paroxysmal Nocturnal Dyspnea, Pedal Edema, Radiating Pain, Rapid Heart Rate, Slow Heart Rate, Syncope, Other - Respiratory Respiratory: absent: As Per HPI, Cough, Dyspnea, Hemoptysis, Dyspnea on Exertion , Wheezing, Snoring, Stridor, Pain on Inspiration, Chest Congestion, Excessive Mucous Production, Change in Mucous Color, Pain with Coughing, Other - Gastrointestinal Gastrointestinal: absent: As Per HPI, Abdominal Pain, Belching, Bloating, Change in Bowel Habits, Change in Stool Character, Coffee Ground Emesis, Constipation, Cramping, Diarrhea, Dyspepsia, Dysphagia, Early Satiety, Excessive Flatus, Fecal Incontinence, Heartburn, Hematemesis, Hematochezia, Loose Stools, Melena, Nausea, Odynophagia, Temesmus, Vomiting, Other - Genitourinary Genitourinary: absent: As Per HPI, Change in Urinary Stream, Difficulty Urinating, Dysuria, Flank Pain, Hematuria, Pyuria, Nocturia, Urinary Incontinence, Urinary Frequency, Urinary Hesitance, Urinary Urgency, Voiding Freq/Small Amts, Freq UTI, Hx Renal/Bladder Calculi, Hx /Renal Surgery, Bladder Distension, Other - Reproductive: Female Reproductive:Female: absent: As Per HPI, Amenorrhea, Amenorrhea/ Control, Currently Menstual, Cycle <21 Days, Cycle >35 Days, Cycle Variable, Menses 1-7 Days, Menses >/= 8 Days, Menses Variable, Cycle > 4 Weeks Between, No Menses for 6 Months, Heavy Menses, Light Menses, Normal Menses, Spotting Between Cycles , S/P Hysterectomy, Menopausal, Post Menopausal, Premenarche, Abnormal Vaginal Bleeding, Dysmenorrhea, Dyspareunia, Genital Lesions, Genital Pruritis, Pelvic Pain, Prolapse Symptoms, Sexual Dysfunction, Vaginal Discharge, Vaginal Dryness , Vaginal Odor, Vaginal Pruritis, Other - Menstruation Menstruation: absent: As Per HPI, Amenorrhea, Amenorrhea/ Control, Currently Menstual, Cycle <21 Days, Cycle >35 Days, Cycle Variable, Menses 1-7 Days, Menses >/= 8 Days, Menses Variable, Cycle > 4 Weeks Between, No Menses for 6 Months, Heavy Menses, Light Menses, Normal Menses, Spotting Between Cycles , S/P Hysterectomy, Menopausal, Post Menopausal, Premenarche, Abnormal Vaginal Bleeding, Dysmenorrhea, Other - Musculoskeletal Musculoskeletal: As Per HPI - Integumentary Integumentary: As Per HPI, Skin Pain, Wounds - Neurological Neurological: absent: As Per HPI, Abnormal Gait, Abnormal Hearing, Abnormal Movements, Abnormal Speech, Behavioral Changes, Burning Sensations, Confusion, Convulsions, Disequilibrium, Dizziness, Numbness, Focal Weakness, Frequent Falls , Headaches, Lack of Coordination, Loss of Vision, Memory Loss, Paresthesias, Radicular Pain, Restless Legs, Sensory Deficit, Syncope, Tingling, Tremor, Vertigo, Weakness, Other Visual Disturbances, Other - Psychiatric Psychiatric: absent: As Per HPI, Abnormal Sleep Pattern, Anhedonia, Anxiety, Auditory Hallucinations, Behavioral Changes, Change in Appetite, Change in Libido, Confusion, Depression, Difficulty Concentrating, Hallucinations, Homicidal Ideation, Hopelessness, Irritability, Memory Loss, Mood Swings, Panic Attacks, Paranoia, Suicidal Ideation, Visual Hallucinations, Tactile Hallucinations, Other - Endocrine Endocrine: absent: As Per HPI, Change in Body Appearance, Change in Libido, Cold Intolorance, Deepening of Voice, Excessive Sweating, Fatigue, Flushing, Heat Intolorance, Increase in Ring/Shoe/Hat Size, Palpitations, Polydipsia, Polyphagia, Polyuria, Other - Hematologic/Lymphatic Hematologic: absent: As Per HPI, Easy Bleeding, Easy Bruising, Lymphadenopathy, Other Past Patient History - Infectious Disease Hx of Infectious Diseases: None - Past Medical History & Family History Past Medical History?: Yes - Past Social History Alcohol: None Drugs: Denies - CARDIAC Hx Congestive Heart Failure: Yes Hx Hypercholesterolemia: Yes Hx Hypertension: Yes Hx Peripheral Edema: Yes - PULMONARY Hx Bronchitis: Yes Hx Pneumonia: Yes - NEUROLOGICAL Hx Neurological Disorder: No - HEENT Hx HEENT Problems: No - RENAL Hx Chronic Kidney Disease: Yes - ENDOCRINE/METABOLIC Hx Hyperthyroidism: Yes - HEMATOLOGICAL/ONCOLOGICAL Hx Human Immunodeficiency Virus (HIV): No - INTEGUMENTARY Hx Dermatological Problems: No - MUSCULOSKELETAL/RHEUMATOLOGICAL Hx Falls: No - GASTROINTESTINAL Hx Gastrointestinal Disorders: No - GENITOURINARY/GYNECOLOGICAL Hx Genitourinary Disorders: No - PSYCHIATRIC Hx Substance Use: No - SURGICAL HISTORY Hx Appendectomy: Yes - ANESTHESIA Hx Anesthesia: Yes Hx Anesthesia Reactions: No Hx Malignant Hyperthermia: No Meds Allergies/Adverse Reactions: Allergies Allergy/AdvReac Type Severity Reaction Status Date / Time No Known Allergies Allergy Verified 07/25/17 16:13 - Medications Medications: Current Medications Acetaminophen (Tylenol 325mg Tab) 650 mg PO Q4 PRN PRN Reason: Pain, Mild (1-3) Last Admin: 11/03/17 01:39 Dose: 650 mg Enalapril Maleate (Vasotec) 2.5 mg PO DAILY [facility] Last Admin: 11/03/17 09:47 Dose: 2.5 mg Enoxaparin Sodium (Lovenox) 40 mg SC DAILY [facility] PRN Reason: Protocol Last Admin: 11/03/17 09:47 Dose: 40 mg Famotidine (Pepcid) 20 mg PO DAILY [facility] Last Admin: 11/03/17 09:47 Dose: 20 mg Furosemide (Lasix) 20 mg PO DAILY [facility] Last Admin: 11/03/17 09:46 Dose: 20 mg Glipizide (Glucotrol Xl) 2.5 mg PO DAILY [facility] Last Admin: 11/03/17 09:46 Dose: 2.5 mg Methimazole (Tapazole) 4 mg PO DAILY [facility] Metoprolol Tartrate (Lopressor) 25 mg PO Q12 [facility] Last Admin: 11/03/17 09:46 Dose: 25 mg Physical Exam - Constitutional Appears: Non-toxic, Chronically Ill - Head Exam Head Exam: NORMOCEPHALIC - Eye Exam Eye Exam: PERRL. absent: Scleral icterus - ENT Exam ENT Exam: Mucous Membranes Dry, Normal External Ear Exam - Neck Exam Neck exam: Negative for: Lymphadenopathy - Respiratory Exam Respiratory Exam: Decreased Breath Sounds - Cardiovascular Exam Cardiovascular Exam: REGULAR RHYTHM, +S1, +S2 - GI/Abdominal Exam GI & Abdominal Exam: Diminished Bowel Sounds, Soft. absent: Tenderness - Rectal Exam Rectal Exam: Deferred - Exam Exam: NORMAL INSPECTION - Extremities Exam Extremities exam: Positive for: pedal edema, tenderness. Negative for: calf tenderness, pedal pulses present - Back Exam Back exam: absent: CVA tenderness (L), CVA tenderness (R), paraspinal tenderness - Neurological Exam Neurological exam: Alert, CN II-XII Intact, Oriented x3, Reflexes Normal - Psychiatric Exam Psychiatric exam: Normal Mood - Skin Skin Exam: Dry Additional comments: vasc: nonpalpable DP and PT pulses due to +2 pitting edema of foot and legs, TG wnl, CFT < 4 sec to all digits neuro: grossly diminished derm: +2 pitting edema to bilateral lower extremities, opened blister noted to left anterior bravo with no drainage, slight discoloration, no malodor, no fluctuance drained/ de-roofed blister noted to dorsal forefoot filled with mild amount of serous fluid, no ascending cellulitis, no acute clinical signs of infection ortho: mild tenderness to palpation of posterior leg bilateral Results - Vital Signs Recent Vital Signs: Last Vital Signs Temp 97.3 F L 11/03/17 11:59 Pulse 86 11/03/17 11:59 Resp 18 11/03/17 11:59 BP 109/47 L 11/03/17 11:59 Pulse Ox 95 11/03/17 11:59 - Labs Result Diagrams: 11/03/17 05:30 11/03/17 05:30 Labs: Laboratory Results - last 24 hr 11/02/17 11/02/17 11/02/17 17:22 17:22 19:43 WBC 7.9 RBC 3.93 Hgb 11.0 L D Hct 34.1 MCV 86.7 MCH 27.9 MCHC 32.2 L RDW 18.7 H Plt Count 216 D MPV 8.4 Neut % (Auto) 86.1 H Lymph % (Auto) 4.7 L [place] % (Auto) 8.4 Eos % (Auto) 0.3 Baso % (Auto) 0.5 Neut # (Auto) 6.8 Lymph # (Auto) 0.4 L [place] # (Auto) 0.7 Eos # (Auto) 0.0 Baso # (Auto) 0.0 Neutrophils % (Manual) 87 H Lymphocytes % (Manual) 6 L Monocytes % (Manual) 7 Platelet Estimate Normal Anisocytosis (manual) Slight Ovalocytes Slight Sodium 145 Potassium 3.7 Chloride 105 Carbon Dioxide 25 Anion Gap 19 BUN 27 H Creatinine 0.8 Est GFR ( Amer) > 60 Est GFR (Non-Af Amer) > 60 POC Glucose (mg/dL) Random Glucose 133 H Calcium 9.4 Total Bilirubin 1.5 H AST 15 ALT 26 Alkaline Phosphatase 84 Troponin I 0.0460 NT-Pro-B Natriuret Pep 59170 H Total Protein 6.7 Albumin 3.6 Globulin 3.0 Albumin/Globulin Ratio 1.2 Triglycerides Cholesterol LDL Cholesterol Direct HDL Cholesterol TSH 3rd Generation Urine Color Yellow Urine Clarity Slighty-cloudy Urine pH 5.0 Ur Specific [place] 1.023 Urine Protein 100 Urine Glucose (UA) Neg Urine Ketones Negative Urine Blood Small Urine Nitrate Negative Urine Bilirubin Negative Urine Urobilinogen 0.2-1.0 Ur Leukocyte Esterase Mod Urine RBC (Auto) 3 Urine Microscopic WBC 16 H Ur Squamous Epith Cells 3 Urine Bacteria Rare Hyaline Casts 0-2 11/03/17 11/03/17 11/03/17 05:30 05:30 06:48 WBC 7.3 RBC 3.28 L Hgb 9.1 L Hct 28.2 L MCV 86.0 MCH 27.6 MCHC 32.1 L RDW 18.4 H Plt Count 230 MPV Neut % (Auto) Lymph % (Auto) [place] % (Auto) Eos % (Auto) Baso % (Auto) Neut # (Auto) Lymph # (Auto) [place] # (Auto) Eos # (Auto) Baso # (Auto) Neutrophils % (Manual) Lymphocytes % (Manual) Monocytes % (Manual) Platelet Estimate Anisocytosis (manual) Ovalocytes Sodium 143 Potassium 3.3 L Chloride 99 Carbon Dioxide 27 Anion Gap 20 BUN 27 H Creatinine 0.9 Est GFR ( Amer) > 60 Est GFR (Non-Af Amer) > 60 POC Glucose (mg/dL) 128 H Random Glucose 131 H Calcium 9.1 Total Bilirubin 1.0 AST 17 ALT 27 Alkaline Phosphatase 77 Troponin I 0.0530 NT-Pro-B Natriuret Pep Total Protein 6.2 L Albumin 3.2 L Globulin 3.0 Albumin/Globulin Ratio 1.1 Triglycerides 55 D Cholesterol 118 LDL Cholesterol Direct 58 HDL Cholesterol 38 TSH 3rd Generation 1.83 Urine Color Urine Clarity Urine pH Ur Specific [place] Urine Protein Urine Glucose (UA) Urine Ketones Urine Blood Urine Nitrate Urine Bilirubin Urine Urobilinogen Ur Leukocyte Esterase Urine RBC (Auto) Urine Microscopic WBC Ur Squamous Epith Cells Urine Bacteria Hyaline Casts 11/03/17 11:00 WBC RBC Hgb Hct MCV MCH MCHC RDW Plt Count MPV Neut % (Auto) Lymph % (Auto) [place] % (Auto) Eos % (Auto) Baso % (Auto) Neut # (Auto) Lymph # (Auto) [place] # (Auto) Eos # (Auto) Baso # (Auto) Neutrophils % (Manual) Lymphocytes % (Manual) Monocytes % (Manual) Platelet Estimate Anisocytosis (manual) Ovalocytes Sodium Potassium Chloride Carbon Dioxide Anion Gap BUN Creatinine Est GFR ( Amer) Est GFR (Non-Af Amer) POC Glucose (mg/dL) 164 H Random Glucose Calcium Total Bilirubin AST ALT Alkaline Phosphatase Troponin I NT-Pro-B Natriuret Pep Total Protein Albumin Globulin Albumin/Globulin Ratio Triglycerides Cholesterol LDL Cholesterol Direct HDL Cholesterol TSH 3rd Generation Urine Color Urine Clarity Urine pH Ur Specific [place] Urine Protein Urine Glucose (UA) Urine Ketones Urine Blood Urine Nitrate Urine Bilirubin Urine Urobilinogen Ur Leukocyte Esterase Urine RBC (Auto) Urine Microscopic WBC Ur Squamous Epith Cells Urine Bacteria Hyaline Casts Assessment & Plan (1) CHF exacerbation Status: Acute (2) Diabetic neuropathy Status: Chronic Priority: High (3) Type 2 diabetes mellitus Status: Chronic Priority: High - Assessment and Plan (Free Text) Assessment: consider arterial studies empiric permathrin to legs cont iv rx and wound care
[2017-11-03] MEDS ORDERED: Permethrin 5% CREAM TOP ONE (13:57)
[2017-11-03] MEDS ORDERED: Sterile Water 10 ML IV ONE (16:57)
--- NOTE | 2017-11-03 23:37 | CP.PCM.PN ---
Subjective - Date & Time of Evaluation Date of Evaluation: 11/03/17 Time of Evaluation: 22:22 - Subjective Subjective: 77 yo admitted for low ext edema and ?SOB Objective - Vital Signs/Intake and Output Vital Signs (last 24 hours): Temp Pulse Resp BP Pulse Ox 98.4 F 69 18 101/58 L 95 11/03/17 19:18 11/03/17 20:35 11/03/17 19:18 11/03/17 20:35 11/03/17 19:18 - Medications Medications: Current Medications Acetaminophen (Tylenol 325mg Tab) 650 mg PO Q4 PRN PRN Reason: Pain, Mild (1-3) Last Admin: 11/03/17 01:39 Dose: 650 mg Enalapril Maleate (Vasotec) 2.5 mg PO DAILY [facility] Last Admin: 11/03/17 09:47 Dose: 2.5 mg Enoxaparin Sodium (Lovenox) 40 mg SC DAILY [facility] PRN Reason: Protocol Last Admin: 11/03/17 09:47 Dose: 40 mg Famotidine (Pepcid) 20 mg PO DAILY [facility] Last Admin: 11/03/17 09:47 Dose: 20 mg Furosemide (Lasix) 20 mg PO DAILY [facility] Last Admin: 11/03/17 09:46 Dose: 20 mg Glipizide (Glucotrol Xl) 2.5 mg PO DAILY [facility] Last Admin: 11/03/17 09:46 Dose: 2.5 mg Methimazole (Tapazole) 4 mg PO DAILY [facility] Metoprolol Tartrate (Lopressor) 25 mg PO Q12 [facility] Last Admin: 11/03/17 20:35 Dose: Not Given - Labs Labs: 11/03/17 05:30 11/03/17 05:30 - Respiratory Exam Respiratory Exam: NORMAL BREATHING PATTERN - Cardiovascular Exam Cardiovascular Exam: REGULAR RHYTHM - GI/Abdominal Exam GI & Abdominal Exam: Normal Bowel Sounds Assessment and Plan - Assessment and Plan (Free Text) Assessment: Low ext edema with blisters- etiol? Leg elevation ID Podiatry Hx COPD CHF Diast CXR L Pleural effusion Cardiology Pulmonary Anemia etiol? repeat labs NIDDM Thyroid dx
[2017-11-04] MEDS ORDERED: Potassium Chloride 10 mEq ER Tab PO ONE (00:15)
--- NOTE | 2017-11-04 05:49 | CP.PCM.PN ---
Subjective - Date & Time of Evaluation Date of Evaluation: 11/04/17 Time of Evaluation: 05:48 - Subjective Subjective: Podiatry Progress Note - Dr. Briseno 77 y/o female seen and evaluated at bedside for bilateral leg swelling and drained blisters to left lower extremity. No acute events overnight. Denies any pain to LLE today. Dressing unraveled. States her thighs have been itchy the past few days, and states she was prescribed permethrin cream yesterday. Denies any SOB today however states she has not been exerting herself. Denies N/V/F/D/ C. Objective - Vital Signs/Intake and Output Vital Signs (last 24 hours): Temp Pulse Resp BP Pulse Ox 98.1 F 82 18 94/57 L 95 11/04/17 05:29 11/04/17 05:29 11/04/17 05:29 11/04/17 05:29 11/04/17 05:29 - Medications Medications: Current Medications Acetaminophen (Tylenol 325mg Tab) 650 mg PO Q4 PRN PRN Reason: Pain, Mild (1-3) Last Admin: 11/03/17 01:39 Dose: 650 mg Enalapril Maleate (Vasotec) 2.5 mg PO DAILY [facility] Last Admin: 11/03/17 09:47 Dose: 2.5 mg Enoxaparin Sodium (Lovenox) 40 mg SC DAILY [facility] PRN Reason: Protocol Last Admin: 11/03/17 09:47 Dose: 40 mg Famotidine (Pepcid) 20 mg PO DAILY [facility] Last Admin: 11/03/17 09:47 Dose: 20 mg Furosemide (Lasix) 20 mg PO DAILY [facility] Last Admin: 11/03/17 09:46 Dose: 20 mg Glipizide (Glucotrol Xl) 2.5 mg PO DAILY [facility] Last Admin: 11/03/17 09:46 Dose: 2.5 mg Methimazole (Tapazole) 5 mg PO DAILY [facility] Metoprolol Tartrate (Lopressor) 25 mg PO Q12 [facility] Last Admin: 11/03/17 20:35 Dose: Not Given - Labs Labs: 11/03/17 05:30 11/03/17 05:30 - Constitutional Appears: Well, Non-toxic, No Acute Distress - Extremities Exam Additional comments: Vasc: nonpalpable DP and PT pulses secondary to edema, +2 pitting edema to bilateral LE, TG wnl, CFT < 4 sec to all digits Neuro: grossly diminished Derm: +2 pitting edema to bilateral lower extremities, lanced bullae noted to left anterior bravo with no drainage, slight discoloration, no malodor, no fluctuance. Lanced bullae #2 noted to dorsal forefoot filled with mild amount of serous fluid, no ascending cellulitis, no acute clinical signs of infection Ortho: mild tenderness to palpation of posterior leg bilateral - Neurological Exam Neurological Exam: Alert, Awake, Oriented x3 - Psychiatric Exam Psychiatric exam: Normal Affect, Normal Mood Assessment and Plan - Assessment and Plan (Free Text) Assessment: 77 y/o female seen at bedside for bilateral lower extremity swelling with bullae secondary to CHF, stable Plan: Patient seen and evaluated Discussed with attending, Dr. Briseno Afebrile, WBC 5.9 Continue local wound care - Xeroform, DSD LLE Bilateral venous duplex negative for DVT Left leg WCx: (prelim) gram negative chuckie, gram negative chuckie #2, gram positive cocci Continue permethrin cream Continue abx - Cefazolin Podiatry will continue to follow while in house
[2017-11-04 06:07] LABS: MEAN CORPUSCULAR HEMOGLOBIN 27.5 pg (27.0-31.0); RBC 3.26 Mil/uL (3.80-5.20); RED CELL DISTRIBUTION WIDTH 18.3 % (11.5-14.5); WHITE BLOOD COUNT 5.9 K/uL (4.8-10.8)
[2017-11-04 06:16] LABS: ALB/GLOB RATIO 1.2 (1.0-2.1); ALBUMIN 3.3 g/dL (3.5-5.0); ALT/SGPT 31 U/L (9-52); AST/SGOT 22 U/L (14-36); BLOOD UREA NITROGEN 39 mg/dl (7-17); GFR AFRICAN-AMERICAN > 60; GFR NON-AFRICAN AMERICAN 53
[2017-11-04] MEDS: GlipiZIDE 2.5 mg SR Tab PO SCH (10:15)
[2017-11-04] MEDS: methIMAzole 5 MG TAB PO SCH (10:16)
--- NOTE | 2017-11-04 10:56 | CP.PCM.CON ---
History of Present Illness - History of Present Illness History of Present Illness: THE PATIENT IS 77 YEAR OLD FEMALE WHO HAS A HISTORY OF HYPERTENSION, DIASTOLIC CHF, CHRONIC LUNG DISEASE, BILATERAL PLEURAL EFFUSIONS, TYPE 2 DM AND HYPOTHYROIDISM. SHE HAD MILDLY ELEVATED TROPONINS IN THE PAST WHEN SHE HAD SINUS TACHYCARDIA AND HAS REFUSED A RECOMMENDED PHARMACOLOGICAL STRESS TEST SEVERAL TIMES. I SAW HER IN THE OFFICE ABOUT TEN DAYS AGO AND INCREASED HER FUROSEMIDE FROM 20 TO 40 MGS DAILY DUE TO LEG EDEMA AND ENALAPRIL AT 2.5 MGS DAILY WAS ADDED ALSO. SHE NOW CAME TO THE HOSPITAL FOR WORSENED LEG EDEMA AND BLISTERING AND A LEG RASH AND SHE WAS ADMITTED. CARDIOLOGY WAS CALLED TO SEE HER ON FOLLOW UP. SHE DENIES CHEST PAIN OR SIGNIFICANT SOB. SHE ADMITS TO EATING SALTY FOODS AND NOT ELEVATING HER LEGS WHILE SITTING. Past Patient History - Infectious Disease Hx of Infectious Diseases: None - Past Medical History & Family History Past Medical History?: Yes - Past Social History Alcohol: None Drugs: Denies - CARDIAC Hx Congestive Heart Failure: Yes Hx Hypercholesterolemia: Yes Hx Hypertension: Yes Hx Peripheral Edema: Yes - PULMONARY Hx Bronchitis: Yes Hx Pneumonia: Yes - NEUROLOGICAL Hx Neurological Disorder: No - HEENT Hx HEENT Problems: No - RENAL Hx Chronic Kidney Disease: Yes - ENDOCRINE/METABOLIC Hx Hyperthyroidism: Yes - HEMATOLOGICAL/ONCOLOGICAL Hx Human Immunodeficiency Virus (HIV): No - INTEGUMENTARY Hx Dermatological Problems: No - MUSCULOSKELETAL/RHEUMATOLOGICAL Hx Falls: No - GASTROINTESTINAL Hx Gastrointestinal Disorders: No - GENITOURINARY/GYNECOLOGICAL Hx Genitourinary Disorders: No - PSYCHIATRIC Hx Substance Use: No - SURGICAL HISTORY Hx Appendectomy: Yes - ANESTHESIA Hx Anesthesia: Yes Hx Anesthesia Reactions: No Hx Malignant Hyperthermia: No Meds Home Medications: Home Medication List Medication Instructions Recorded Confirmed Type Acetaminophen [Tylenol 325mg tab] 650 mg PO Q4 PRN tab 11/08/17 Rx Amoxicillin [Amoxil 500 mg Cap] 500 mg PO Q8 cap 11/08/17 Rx Clopidogrel [Plavix] 75 mg PO DAILY tab 11/08/17 Rx Desoximetasone 0.25% [Topicort 1 ea TOP BID tube 11/08/17 Rx 0.25%] Furosemide [Lasix] 20 mg PO BID tab 11/08/17 Rx GlipiZIDE SR [Glucotrol XL] 2.5 mg PO DAILY tab 11/08/17 Rx Isosorbide Mononitrate ER [Imdur 30 mg PO DAILY tab 11/08/17 Rx ER] Moxifloxacin [Avelox] 400 mg PO DAILY tab 11/08/17 Rx Allergies/Adverse Reactions: Allergies Allergy/AdvReac Type Severity Reaction Status Date / Time No Known Allergies Allergy Verified 11/08/17 15:56 - Medications Medications: Current Medications Acetaminophen (Tylenol 325mg Tab) 650 mg PO Q4 PRN PRN Reason: Pain, Mild (1-3) Last Admin: 11/03/17 01:39 Dose: 650 mg Enalapril Maleate (Vasotec) 2.5 mg PO DAILY [facility] Last Admin: 11/03/17 09:47 Dose: 2.5 mg Enoxaparin Sodium (Lovenox) 40 mg SC DAILY [facility] PRN Reason: Protocol Last Admin: 11/03/17 09:47 Dose: 40 mg Famotidine (Pepcid) 20 mg PO DAILY [facility] Last Admin: 11/04/17 10:16 Dose: 20 mg Furosemide (Lasix) 20 mg PO DAILY [facility] Last Admin: 11/04/17 10:17 Dose: 20 mg Glipizide (Glucotrol Xl) 2.5 mg PO DAILY [facility] Last Admin: 11/04/17 10:15 Dose: 2.5 mg Methimazole (Tapazole) 5 mg PO DAILY [facility] Last Admin: 11/04/17 10:16 Dose: 5 mg Metoprolol Tartrate (Lopressor) 25 mg PO Q12 [facility] Last Admin: 11/03/17 20:35 Dose: Not Given Physical Exam - Respiratory Exam Respiratory Exam: Decreased Breath Sounds - Cardiovascular Exam Cardiovascular Exam: REGULAR RHYTHM, +S1, +S2 - Extremities Exam Extremities exam: Positive for: pedal edema Additional comments: BILATERAL VERICOSE VEINS - Additional Findings Additional findings: EKG NSR, NSSTT CHANGES TROPONIN NORMAL X 2 CXR INTERSTITIAL CHANGES, LEFT PLEURAL EFFUSION PBNP 10,400 ID CONSULT REVIEWED Results - Vital Signs Recent Vital Signs: Last Vital Signs Temp 97.2 F L 11/04/17 08:04 Pulse 80 11/04/17 08:04 Resp 18 11/04/17 08:04 BP 103/62 11/04/17 10:17 Pulse Ox 99 11/04/17 08:04 - Labs Result Diagrams: 11/06/17 04:20 11/06/17 04:20 Labs: Laboratory Results - last 24 hr 11/03/17 11/03/17 11/03/17 11:00 16:48 21:05 WBC RBC Hgb Hct MCV MCH MCHC RDW Plt Count Sodium Potassium Chloride Carbon Dioxide Anion Gap BUN Creatinine Est GFR ( Amer) Est GFR (Non-Af Amer) POC Glucose (mg/dL) 164 H 179 H 154 H Random Glucose Calcium Total Bilirubin AST ALT Alkaline Phosphatase Total Protein Albumin Globulin Albumin/Globulin Ratio 11/04/17 11/04/17 04:20 04:20 WBC 5.9 RBC 3.26 L Hgb 9.0 L Hct 28.0 L MCV 86.0 MCH 27.5 MCHC 32.0 L RDW 18.3 H Plt Count 207 Sodium 141 Potassium 3.7 Chloride 99 Carbon Dioxide 28 Anion Gap 18 BUN 39 H Creatinine 1.0 Est GFR ( Amer) > 60 Est GFR (Non-Af Amer) 53 POC Glucose (mg/dL) Random Glucose 154 H Calcium 9.0 Total Bilirubin 0.6 AST 22 ALT 31 Alkaline Phosphatase 80 Total Protein 6.1 L Albumin 3.3 L Globulin 2.8 Albumin/Globulin Ratio 1.2 Assessment & Plan - Assessment and Plan (Free Text) Assessment: LV DYSFUNCTION ON ECHOCARDIOGRAM WITH NORMAL LV SYSTOLIC FUNCTION ELEVATED TROPONINS ON AN EARLIER HOSPITAL ADMISSION DURING SINUS TACHYCARDIA LEG EDEMA 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
--- NOTE | 2017-11-04 11:24 | CP.PCM.CON ---
Past Patient History - Infectious Disease Hx of Infectious Diseases: None - Past Medical History & Family History Past Medical History?: Yes - Past Social History Alcohol: None Drugs: Denies - CARDIAC Hx Congestive Heart Failure: Yes Hx Hypercholesterolemia: Yes Hx Hypertension: Yes Hx Peripheral Edema: Yes - PULMONARY Hx Bronchitis: Yes Hx Pneumonia: Yes - NEUROLOGICAL Hx Neurological Disorder: No - HEENT Hx HEENT Problems: No - RENAL Hx Chronic Kidney Disease: Yes - ENDOCRINE/METABOLIC Hx Hyperthyroidism: Yes - HEMATOLOGICAL/ONCOLOGICAL Hx Human Immunodeficiency Virus (HIV): No - INTEGUMENTARY Hx Dermatological Problems: No - MUSCULOSKELETAL/RHEUMATOLOGICAL Hx Falls: No - GASTROINTESTINAL Hx Gastrointestinal Disorders: No - GENITOURINARY/GYNECOLOGICAL Hx Genitourinary Disorders: No - PSYCHIATRIC Hx Substance Use: No - SURGICAL HISTORY Hx Appendectomy: Yes - ANESTHESIA Hx Anesthesia: Yes Hx Anesthesia Reactions: No Hx Malignant Hyperthermia: No Meds Allergies/Adverse Reactions: Allergies Allergy/AdvReac Type Severity Reaction Status Date / Time No Known Allergies Allergy Verified 07/25/17 16:13 - Medications Medications: Current Medications Acetaminophen (Tylenol 325mg Tab) 650 mg PO Q4 PRN PRN Reason: Pain, Mild (1-3) Last Admin: 11/03/17 01:39 Dose: 650 mg Enalapril Maleate (Vasotec) 2.5 mg PO DAILY [facility] Last Admin: 11/03/17 09:47 Dose: 2.5 mg Enoxaparin Sodium (Lovenox) 40 mg SC DAILY [facility] PRN Reason: Protocol Last Admin: 11/03/17 09:47 Dose: 40 mg Famotidine (Pepcid) 20 mg PO DAILY [facility] Last Admin: 11/04/17 10:16 Dose: 20 mg Furosemide (Lasix) 20 mg PO DAILY [facility] Last Admin: 11/04/17 10:17 Dose: 20 mg Glipizide (Glucotrol Xl) 2.5 mg PO DAILY [facility] Last Admin: 11/04/17 10:15 Dose: 2.5 mg Cefazolin Sodium 1 gm/ Sodium (Chloride) 100 mls @ 100 mls/hr IVPB Q8 [facility] PRN Reason: Protocol Methimazole (Tapazole) 5 mg PO DAILY [facility] Last Admin: 11/04/17 10:16 Dose: 5 mg Metoprolol Tartrate (Lopressor) 25 mg PO Q12 [facility] Last Admin: 11/03/17 20:35 Dose: Not Given Results - Vital Signs Recent Vital Signs: Last Vital Signs Temp 97.2 F L 11/04/17 08:04 Pulse 80 11/04/17 08:04 Resp 18 11/04/17 08:04 BP 103/62 11/04/17 10:17 Pulse Ox 99 11/04/17 08:04 - Labs Result Diagrams: 11/04/17 04:20 11/04/17 04:20 Labs: Laboratory Results - last 24 hr 11/03/17 11/03/17 11/04/17 16:48 21:05 04:20 WBC 5.9 RBC 3.26 L Hgb 9.0 L Hct 28.0 L MCV 86.0 MCH 27.5 MCHC 32.0 L RDW 18.3 H Plt Count 207 Sodium Potassium Chloride Carbon Dioxide Anion Gap BUN Creatinine Est GFR ( Amer) Est GFR (Non-Af Amer) POC Glucose (mg/dL) 179 H 154 H Random Glucose Calcium Total Bilirubin AST ALT Alkaline Phosphatase Total Protein Albumin Globulin Albumin/Globulin Ratio 11/04/17 11/04/17 04:20 06:00 WBC RBC Hgb Hct MCV MCH MCHC RDW Plt Count Sodium 141 Potassium 3.7 Chloride 99 Carbon Dioxide 28 Anion Gap 18 BUN 39 H Creatinine 1.0 Est GFR ( Amer) > 60 Est GFR (Non-Af Amer) 53 POC Glucose (mg/dL) 145 H Random Glucose 154 H Calcium 9.0 Total Bilirubin 0.6 AST 22 ALT 31 Alkaline Phosphatase 80 Total Protein 6.1 L Albumin 3.3 L Globulin 2.8 Albumin/Globulin Ratio 1.2 Assessment & Plan (1) Edema of both lower extremities due to peripheral venous insufficiency Status: Acute Priority: High Comment: Venous duplex scan negative for DVY. Significant varicose veins, L>R. Unusual pruritic, papular rash over both LEs. (2) Pleural effusion Status: Chronic Priority: High (3) Bilateral pleural effusion Status: Acute Priority: High Comment: CT chest without contrst. Possibly thoracentesis. Possibly flexible bronchoscopy. - Date & Time Date: 11/04/17 Time: 11:22
--- NOTE | 2017-11-04 20:13 | CON ---
ENDOCRINOLOGY CONSULT DATE: LOCATION: In room 401, bed 2 HISTORY OF PRESENT ILLNESS: This is a 77-year-old female with recent uncontrolled type 2 diabetes and has actually been optimally controlled in the last few months on a very low dose oral hypoglycemic therapy who presents here to the hospital with progressively worsening lower extremity edema and was evaluated to be in congestive heart failure with concomitant worsening lower extremity edema as noted thereof. She is being referred now for endocrine evaluation and management. PAST MEDICAL HISTORY: As mentioned above, history of type 2 diabetes controlled on a very low dose oral hypoglycemic therapy with glipizide given as 2.5 mg once daily as ordered. History of hypertensive cardiovascular disease and dyslipidemia, history of coronary artery disease with previous history of coronary artery disease, and previous admissions for congestive heart failure. She also has COPD and has been stable except for the recent acute decompensation as noted thereof. History of generalized osteoarthritis and osteoporosis as noted. Also history of hyperthyroidism, currently on Tapazole given as 5 mg once daily as noted. FAMILY HISTORY: Positive hypertension and heart disease. SOCIAL HISTORY: The patient has supportive family. No known substance use. REVIEW OF SYSTEMS: As mentioned above. Admits to generalized body weakness with easy fatigability and tiredness and suboptimal energy level. Also admits to episodic bouts of dizziness and lightheadedness, worse over the last 2 days or so prior to admission. No chest pains or palpitations or PND. Her oral intake has been variable with nausea, dyspepsia, and vague upper abdominal pains. Extremities; no peripheral edema, pulses are +2 bilaterally. PHYSICAL EXAMINATION: GENERAL: This is an average-built female in no apparent distress. VITAL SIGNS: Blood pressure of 140/80, pulse of 70 beats per minute and regular, temperature 98, respirations 20, height is 5 feet 3 inches, and weight is 158 pounds. HEENT: Head; normocephalic. Eyes; anicteric with pink conjunctivae. Funduscopy not possible at this time. NECK: Supple. Thyroid gland is normal in size. No carotid bruits or cervical adenopathy. CARDIOPULMONARY: Some adynamic precordium. S1 and S2 is rapid and regular. LUNGS: Clear to auscultation. ABDOMEN: Flat and soft with positive bowel sounds. EXTREMITIES: There is +2 bipedal edema, which is firm and very taut as noted. Pulses are +2 bilaterally. LABORATORY DATA: The chemistry shows a BUN of 39, sodium 141, potassium 3.7, chloride 99, CO2 of 28, glucose 154, and creatinine 1.0. ASSESSMENT AND PLAN: This is a 77-year-old female with known history of type 2 diabetes and hypertension with near optimal metabolic control, presenting here with congestive heart failure and supervening severe lower extremity edema as noted thereof. She also has diabetic microvascular complications of retinopathy and polyneuropathy with diabetic macrovascular complications . So at this time, we will continue the low-dose oral hypoglycemic therapy with glipizide given as 2.5 mg once daily as ordered. We will continue the Tapazole given as 5 mg daily as ordered. We will continue her glipizide given as 2.5 mg once daily as ordered and we will obtain serial chemistries and supplement accordingly as needed. We will also order serial chemistries and supplement accordingly as needed. We will follow and advise accordingly. Lucia Corley MD
--- NOTE | 2017-11-04 20:41 | CP.PCM.PN ---
Subjective - Date & Time of Evaluation Date of Evaluation: 11/04/17 Time of Evaluation: 22:22 - Subjective Subjective: Above noted No SOB Still with leg edema Objective - Vital Signs/Intake and Output Vital Signs (last 24 hours): Temp Pulse Resp BP Pulse Ox 97.5 F L 94 H 18 108/57 L 100 11/04/17 19:58 11/04/17 19:58 11/04/17 19:58 11/04/17 19:58 11/04/17 19:58 - Medications Medications: Current Medications Acetaminophen (Tylenol 325mg Tab) 650 mg PO Q4 PRN PRN Reason: Pain, Mild (1-3) Last Admin: 11/04/17 17:05 Dose: 650 mg Enoxaparin Sodium (Lovenox) 40 mg SC DAILY [facility] PRN Reason: Protocol Last Admin: 11/03/17 09:47 Dose: 40 mg Famotidine (Pepcid) 20 mg PO DAILY [facility] Last Admin: 11/04/17 10:16 Dose: 20 mg Furosemide (Lasix) 20 mg PO DAILY [facility] Last Admin: 11/04/17 10:17 Dose: 20 mg Glipizide (Glucotrol Xl) 2.5 mg PO DAILY [facility] Last Admin: 11/04/17 10:15 Dose: 2.5 mg Cefazolin Sodium 1 gm/ (Dextrose) 100 mls @ 100 mls/hr IVPB Q8 [facility] PRN Reason: Protocol Last Admin: 11/04/17 17:07 Dose: 100 mls/hr Methimazole (Tapazole) 5 mg PO DAILY [facility] Last Admin: 11/04/17 10:16 Dose: 5 mg Metoprolol Tartrate (Lopressor) 25 mg PO Q12 [facility] Last Admin: 11/04/17 13:29 Dose: Not Given - Labs Labs: 11/04/17 04:20 11/04/17 04:20 - Respiratory Exam Respiratory Exam: NORMAL BREATHING PATTERN - Cardiovascular Exam Cardiovascular Exam: REGULAR RHYTHM - GI/Abdominal Exam GI & Abdominal Exam: Normal Bowel Sounds Assessment and Plan - Assessment and Plan (Free Text) Assessment: Low ext edema with blisters- etiol? Venous Insuff?? Leg elevation ID Podiatry Hx COPD CHF Diast CXR L Pleural effusion Cardiology Pulmonary Anemia etiol? repeat labs ASA d/c as outpt due to dec Hbg Stool for OB NIDDM Thyroid dx Endo
[2017-11-04 20:42] LABS: SQUAMOUS EPITHIAL < 1 /hpf (0-5); URINE BILIRUBIN NEGATIVE (NEGATIVE); URINE BLOOD NEGATIVE (NEGATIVE); URINE CLARITY CLEAR (Clear); URINE COLOR YELLOW (YELLOW); URINE GLUCOSE (UA) NEG (Normal); URINE LEUKOCYTE ESTERASE NEG Leu/uL (Negative); URINE PROTEIN NEGATIVE (NEGATIVE); URINE UROBILINOGEN 0.2-1.0 mg/dL (0.2-1.0)
--- NOTE | 2017-11-05 07:36 | CP.PCM.PN ---
Subjective - Date & Time of Evaluation Date of Evaluation: 11/05/17 Time of Evaluation: 07:36 - Subjective Subjective: Podiatry Progress Note - Dr. Briseno 77 y/o female seen and evaluated at bedside for bilateral leg swelling and drained blisters to left lower extremity. Patient resting comfortably with legs in dependent position. Denies any acute events overnight. Denies any pain to LLE today, reports mild soreness to RLE. Patient states she has been using the permethrin cream which has resolved the itchiness to her thighs. No complaints of SOB today. Denies N/V/F/D/C/[place]/dizziness. Objective - Vital Signs/Intake and Output Vital Signs (last 24 hours): Temp Pulse Resp BP Pulse Ox 97.7 F 82 18 115/67 97 11/05/17 05:24 11/05/17 05:24 11/05/17 05:24 11/05/17 05:24 11/05/17 05:24 - Medications Medications: Current Medications Acetaminophen (Tylenol 325mg Tab) 650 mg PO Q4 PRN PRN Reason: Pain, Mild (1-3) Last Admin: 11/05/17 02:04 Dose: 650 mg Enoxaparin Sodium (Lovenox) 40 mg SC DAILY [facility] PRN Reason: Protocol Last Admin: 11/03/17 09:47 Dose: 40 mg Famotidine (Pepcid) 20 mg PO DAILY [facility] Last Admin: 11/04/17 10:16 Dose: 20 mg Furosemide (Lasix) 20 mg PO DAILY [facility] Last Admin: 11/04/17 10:17 Dose: 20 mg Glipizide (Glucotrol Xl) 2.5 mg PO DAILY [facility] Last Admin: 11/04/17 10:15 Dose: 2.5 mg Cefazolin Sodium 1 gm/ (Dextrose) 100 mls @ 100 mls/hr IVPB Q8 [facility] Reason: Protocol Last Admin: 11/05/17 00:21 Dose: 100 mls/hr Methimazole (Tapazole) 5 mg PO DAILY [facility] Last Admin: 11/04/17 10:16 Dose: 5 mg Metoprolol Tartrate (Lopressor) 25 mg PO Q12 [facility] Last Admin: 11/04/17 21:03 Dose: 25 mg - Labs Labs: 11/04/17 04:20 11/04/17 04:20 - Constitutional Appears: Well, Non-toxic, No Acute Distress - Extremities Exam Additional comments: Vasc: nonpalpable DP and PT pulses secondary to edema, +2 pitting edema to bilateral LE, TG wnl, CFT < 4 sec to all digits Neuro: grossly diminished Derm: +2 pitting edema to bilateral lower extremities, lanced bullae noted to left anterior bravo with no drainage, slight discoloration, no malodor, no fluctuance. Lanced bullae #2 noted to dorsal forefoot filled with mild amount of serous fluid, no ascending cellulitis, no acute clinical signs of infection Ortho: mild tenderness to palpation of posterior right leg, no tenderness to palpation of posterior left leg - Neurological Exam Neurological Exam: Alert, Awake, Oriented x3 - Psychiatric Exam Psychiatric exam: Normal Affect, Normal Mood Assessment and Plan - Assessment and Plan (Free Text) Assessment: 77 y/o female seen at bedside for bilateral lower extremity swelling with bullae secondary to CHF, stable Plan: Patient seen and evaluated with attending, Dr. Briseno Afebrile Continue local wound care - Xeroform, DSD LLE CHAITANYA wraps to bilateral LE Bilateral venous duplex negative for DVT Left leg WCx: (prelim) serratia marcescens, gram negative chuckie #2, enterococcus faecalis Continue permethrin cream Continue abx - Cefazolin 1g IV q8 Podiatry will continue to follow while in house
[2017-11-05] MEDS: GlipiZIDE 2.5 mg SR Tab PO SCH (09:43)
[2017-11-05] MEDS: methIMAzole 5 MG TAB PO SCH (09:44)
[2017-11-05] MEDS: Enoxaparin 40 mg Syringe SC SCH (09:45)
--- NOTE | 2017-11-05 10:40 | CP.PCM.PN ---
Subjective - Date & Time of Evaluation Date of Evaluation: 11/05/17 Time of Evaluation: 10:00 - Subjective Subjective: NO CHEST PAIN BREATHING BETTER THE PATIENT IS NOW LEANING TOWARDS DOING A PHARMACOLOGICAL STRESS TEST LATER IN THE WEEK BEFORE DISCHARGE Objective - Vital Signs/Intake and Output Vital Signs (last 24 hours): Temp Pulse Resp BP Pulse Ox 97.5 F L 82 16 124/70 96 11/05/17 07:55 11/05/17 07:55 11/05/17 07:55 11/05/17 09:43 11/05/17 07:55 - Medications Medications: Current Medications Acetaminophen (Tylenol 325mg Tab) 650 mg PO Q4 PRN PRN Reason: Pain, Mild (1-3) Last Admin: 11/05/17 02:04 Dose: 650 mg Enoxaparin Sodium (Lovenox) 40 mg SC DAILY [facility] PRN Reason: Protocol Last Admin: 11/05/17 09:45 Dose: 40 mg Famotidine (Pepcid) 20 mg PO DAILY [facility] Last Admin: 11/05/17 09:44 Dose: 20 mg Furosemide (Lasix) 20 mg PO DAILY [facility] Last Admin: 11/05/17 09:43 Dose: 20 mg Glipizide (Glucotrol Xl) 2.5 mg PO DAILY [facility] Last Admin: 11/05/17 09:43 Dose: 2.5 mg Cefazolin Sodium 1 gm/ (Dextrose) 100 mls @ 100 mls/hr IVPB Q8 [facility] PR[facility] Reason: Protocol Last Admin: 11/05/17 00:21 Dose: 100 mls/hr Methimazole (Tapazole) 5 mg PO DAILY [facility] Last Admin: 11/05/17 09:44 Dose: 5 mg Metoprolol Tartrate (Lopressor) 25 mg PO Q12 [facility] Last Admin: 11/05/17 09:44 Dose: 25 mg - Labs Labs: 11/04/17 04:20 11/04/17 04:20 - Respiratory Exam Respiratory Exam: Decreased Breath Sounds - Cardiovascular Exam Cardiovascular Exam: REGULAR RHYTHM, +S1, +S2 - Extremities Exam Additional comments: DECREASE IN BILAT LOWER EXTREMITY EDEMA TODAY COMPARED TO YESTERDAY - Additional Findings Additional findings: PULMONARY CONSULT REVIEWED AND CHEST CT ORDERED TO BETTER ASSESS PLEURAL EFFUSIONS Assessment and Plan - Assessment and Plan (Free Text) Assessment: LEG EDEMA MOST PROBABLY FROM VENOUS INSUFFICIENCY-IMPROVING PLEURAL EFFUSIONS DIASTOLIC CHF HISTORY TYPE 2 DM Plan: CONTINUE ANTIBIOTICS, METOPROLOL, FUROSEMIDE AND LOVENOX CHEST CT SCAN TODAY FOR PHARMACOLOGICAL STRESS TEST LATER IN THE WEEK
--- NOTE | 2017-11-05 11:02 | CP.PCM.PN ---
Subjective - Date & Time of Evaluation Date of Evaluation: 11/05/17 Time of Evaluation: 10:57 - Subjective Subjective: Seen on rounds in telemetry. Seated at the edge of the bed appears comfortable. Vital signs have remained stable and SPO2 is 96% on room air. Dependent edema appears to be improving slowly. Both lower extremities have Danny bandage wraps applied. Erythematous/papular rash on the lower extremities is still present, but less pruritic. Breathing pattern appears normal with no tachypnea or recruitment. No dullness on chest percussion. Breath sounds are diminished bilaterally without audible wheezing or bronchial breathing. Dry rales are heard posteriorly in the left lower lobe. No rhonchi. Heart sounds are well heard and rhythm is regular. Improving lower extremity dependent edema; likely venous insufficiency with an element of superimposed congestive heart failure. Previous pleural effusion with atelectasis at the left base. Suspect an element of underlying cigarette related chronic obstructive pulmonary disease which needs to be proven by pulmonary function study when stable. Repeat chest x-ray, PA and lateral requested for today. Based on the above she may require a repeat CT scan of the thorax. Thoracentesis will be requested if pleural effusion on the left is significant. Objective - Vital Signs/Intake and Output Vital Signs (last 24 hours): Temp Pulse Resp BP Pulse Ox 97.5 F L 82 16 124/70 96 11/05/17 07:55 11/05/17 07:55 11/05/17 07:55 11/05/17 09:43 11/05/17 07:55 - Medications Medications: Current Medications Acetaminophen (Tylenol 325mg Tab) 650 mg PO Q4 PRN PRN Reason: Pain, Mild (1-3) Last Admin: 11/05/17 02:04 Dose: 650 mg Enoxaparin Sodium (Lovenox) 40 mg SC DAILY [facility] PRN Reason: Protocol Last Admin: 11/05/17 09:45 Dose: 40 mg Famotidine (Pepcid) 20 mg PO DAILY [facility] Last Admin: 11/05/17 09:44 Dose: 20 mg Furosemide (Lasix) 20 mg PO BID [facility] Glipizide (Glucotrol Xl) 2.5 mg PO DAILY [facility] Last Admin: 11/05/17 09:43 Dose: 2.5 mg Cefazolin Sodium 1 gm/ (Dextrose) 100 mls @ 100 mls/hr IVPB Q8 [facility] Reason: Protocol Last Admin: 11/05/17 00:21 Dose: 100 mls/hr Methimazole (Tapazole) 5 mg PO DAILY [facility] Last Admin: 11/05/17 09:44 Dose: 5 mg Metoprolol Tartrate (Lopressor) 25 mg PO Q12 [facility] Last Admin: 11/05/17 09:44 Dose: 25 mg - Labs Labs: 11/04/17 04:20 11/04/17 04:20 Assessment and Plan (1) Edema of both lower extremities due to peripheral venous insufficiency Status: Acute (2) Pleural effusion Status: Chronic
--- NOTE | 2017-11-05 11:07 | CP.PCM.PN ---
Subjective - Date & Time of Evaluation Date of Evaluation: 11/05/17 Time of Evaluation: 09:00 - Subjective Subjective: evaluated at bedside for bilateral leg swelling and drained blisters to left lower extremity. Patient resting comfortably \ wounds grew serratia and enterococcus Zosyn added Objective - Vital Signs/Intake and Output Vital Signs (last 24 hours): Temp Pulse Resp BP Pulse Ox 97.5 F L 82 16 124/70 96 11/05/17 07:55 11/05/17 07:55 11/05/17 07:55 11/05/17 09:43 11/05/17 07:55 - Medications Medications: Current Medications Acetaminophen (Tylenol 325mg Tab) 650 mg PO Q4 PRN PRN Reason: Pain, Mild (1-3) Last Admin: 11/05/17 02:04 Dose: 650 mg Enoxaparin Sodium (Lovenox) 40 mg SC DAILY [facility] PRN Reason: Protocol Last Admin: 11/05/17 09:45 Dose: 40 mg Famotidine (Pepcid) 20 mg PO DAILY [facility] Last Admin: 11/05/17 09:44 Dose: 20 mg Furosemide (Lasix) 20 mg PO BID [facility] Glipizide (Glucotrol Xl) 2.5 mg PO DAILY [facility] Last Admin: 11/05/17 09:43 Dose: 2.5 mg Piperacillin Sod/Tazobactam (Sod 3.375 gm/ Sodium Chloride) 100 mls @ 100 mls/ hr IVPB Q8 [facility] PRN Reason: Protocol Methimazole (Tapazole) 5 mg PO DAILY [facility] Last Admin: 11/05/17 09:44 Dose: 5 mg Metoprolol Tartrate (Lopressor) 25 mg PO Q12 [facility] Last Admin: 11/05/17 09:44 Dose: 25 mg - Labs Labs: 11/04/17 04:20 11/04/17 04:20 - Constitutional Appears: Non-toxic, Chronically Ill - Head Exam Head Exam: NORMOCEPHALIC - Eye Exam Eye Exam: PERRL - ENT Exam ENT Exam: Mucous Membranes Dry - Neck Exam Neck Exam: absent: Lymphadenopathy - Respiratory Exam Respiratory Exam: Decreased Breath Sounds - Cardiovascular Exam Cardiovascular Exam: REGULAR RHYTHM - GI/Abdominal Exam GI & Abdominal Exam: Distended, Soft - Rectal Exam Rectal Exam: Deferred - Exam Exam: NORMAL INSPECTION - Extremities Exam Extremities Exam: Pedal Edema, Tenderness. absent: Calf Tenderness - Back Exam Back Exam: absent: CVA tenderness (L), CVA tenderness (R) - Neurological Exam Neurological Exam: Alert, Awake, Oriented x3 - Psychiatric Exam Psychiatric exam: Normal Mood - Skin Skin Exam: Dry Assessment and Plan (1) CHF exacerbation Status: Acute (2) Diabetic neuropathy Status: Chronic (3) Type 2 diabetes mellitus Status: Chronic - Assessment and Plan (Free Text) Assessment: evaluated at bedside for bilateral leg swelling and drained blisters to left lower extremity. Patient resting comfortably \ wounds grew serratia and enterococcus Zosyn added
--- NOTE | 2017-11-05 12:24 | RAD ---
HISTORY: SOB COMPARISON: Chest radiograph dated 11/02/2017. TECHNIQUE: Chest PA and lateral FINDINGS: LUNGS: Stable chronic prominence of the bilateral interstitial markings. Left basilar atelectasis. PLEURA: Stable small left greater than right pleural effusions. No pneumothorax apparent. CARDIOVASCULAR: Atherosclerotic aortic calcifications. Cardiomediastinal silhouette stably enlarged. OSSEOUS STRUCTURES: Unchanged. VISUALIZED UPPER ABDOMEN: Normal. OTHER FINDINGS: None. IMPRESSION: Stable small left greater than right pleural effusions.
[2017-11-05] MEDS: Piperacillin/Tazobact 3.375 GM in Sodium Chloride 0.9% 100 ML IVPB SCH ×2 (13:11→17:23)
--- NOTE | 2017-11-05 13:38 | CT ---
PROCEDURE: CT Chest without contrast HISTORY: pleural effusion COMPARISON: None. TECHNIQUE: Contiguous axial images were obtained through the chest without intravenous contrast enhancement. Sagittal and coronal reconstructions were performed. Radiation dose (DLP): 575.92 mGy-cm. This CT exam was performed using one or more of the following dose reduction techniques: Automated exposure control, adjustment of the mA and/or kV according to patient size, and/or use of iterative reconstruction technique. FINDINGS: LUNGS: Improved aeration of lower lobes in part related to decrease in size of pleural effusions/compressive atelectasis. Stable residual infiltrate medial segment right lower lobe MEDIASTINUM: Unremarkable thoracic aorta. No aneurysm. Cardiomegaly without congestive heart failure. Main pulmonary artery unremarkable. No vascular congestion. No lymphadenopathy. PLEURA: Pleural effusions identified on the prior study have diminished considerably. BONES: No fracture. No destructive lesion. UPPER ABDOMEN: Stable renal calculus disease is visualized. Stable enlargement left adrenal gland. OTHER FINDINGS: None. IMPRESSION: Interval decrease in bilateral pleural effusions with commensurate re-expansion of both lower lobes. Residual compressive atelectasis remains. Small residual infiltrate medial segment right lower lobe.
--- NOTE | 2017-11-05 15:38 | PN ---
DATE: ENDO FOLLOWUP NOTE LOCATION: Room 401. SUBJECTIVE: This is a 77-year-old female with recent admission for congestive heart failure and acute exacerbation of COPD and now being followed closely for metabolic management. Her oral intake remains quite variable at this time as noted. Her glycemic profile has improved accordingly and the latest glucose levels have ranged from 103 to 131 and 176 mg/dL. The latest chemistry showed BUN of 39, sodium of 141, potassium of 3.7, chloride of 99, CO2 of 28, glucose of 154, and creatinine of 1.0. So at this time, she remains clinically and biochemically euthyroid at this time as noted. ASSESSMENT: This is a 77-year-old female with near optimal metabolic control of her diabetic condition and has had type 2 diabetes for many years and currently has optimal metabolic control on just a very low dose oral hypoglycemic drug therapy as given. She also has significant history of hyperthyroidism and currently is clinically and biochemically euthyroid on low-dose thioureas as given. She has underlying Graves disease with autoimmune thyroiditis as noted thereof. PLAN OF MANAGEMENT: We will continue the same low-dose glipizide given as 2.5 mg once daily as ordered. We will continue also the low-dose correction scale using regular insulin as given. We will continue also the low-dose Tapazole given as 5 mg once daily in the morning as ordered. We will obtain serial chemistries and supplement accordingly as needed. We will follow. Lucia Corley MD
--- NOTE | 2017-11-05 21:07 | CP.PCM.PN ---
Subjective - Date & Time of Evaluation Date of Evaluation: 11/05/17 Time of Evaluation: 22:22 - Subjective Subjective: Above noted Difficulty lying in bed Objective - Vital Signs/Intake and Output Vital Signs (last 24 hours): Temp Pulse Resp BP Pulse Ox 97.7 F 83 18 111/55 L 99 11/05/17 20:07 11/05/17 20:07 11/05/17 20:07 11/05/17 20:07 11/05/17 20:07 Intake and Output: 11/05/17 11/06/17 18:59 06:59 Intake Total 1450 Balance 1450 - Medications Medications: Current Medications Acetaminophen (Tylenol 325mg Tab) 650 mg PO Q4 PRN PRN Reason: Pain, Mild (1-3) Last Admin: 11/05/17 02:04 Dose: 650 mg Enoxaparin Sodium (Lovenox) 40 mg SC DAILY [facility] PRN Reason: Protocol Last Admin: 11/05/17 09:45 Dose: 40 mg Famotidine (Pepcid) 20 mg PO DAILY [facility] Last Admin: 11/05/17 09:44 Dose: 20 mg Furosemide (Lasix) 20 mg PO BID [facility] Glipizide (Glucotrol Xl) 2.5 mg PO DAILY [facility] Last Admin: 11/05/17 09:43 Dose: 2.5 mg Piperacillin Sod/Tazobactam (Sod 3.375 gm/ Sodium Chloride) 100 mls @ 100 mls/ hr IVPB Q8 [facility] PRN Reason: Protocol Last Admin: 11/05/17 17:23 Dose: 100 mls/hr Methimazole (Tapazole) 5 mg PO DAILY [facility] Last Admin: 11/05/17 09:44 Dose: 5 mg Metoprolol Tartrate (Lopressor) 25 mg PO Q12 [facility] Last Admin: 11/05/17 09:44 Dose: 25 mg - Labs Labs: 11/04/17 04:20 11/04/17 04:20 - Respiratory Exam Respiratory Exam: NORMAL BREATHING PATTERN - Cardiovascular Exam Cardiovascular Exam: REGULAR RHYTHM - GI/Abdominal Exam GI & Abdominal Exam: Normal Bowel Sounds Assessment and Plan - Assessment and Plan (Free Text) Assessment: Low ext edema with blisters- etiol? Venous Insuff?? Infectious? Serratia G- Leg elevation ID Podiatry Abx Hx COPD CHF Diast CXR L Pleural effusion Cardiology Stress test?? Pulmonary CT scan Anemia etiol? repeat labs ASA d/c as outpt due to dec Hbg Stool for OB NIDDM Thyroid dx Endo
[2017-11-06] MEDS: Piperacillin/Tazobact 3.375 GM in Sodium Chloride 0.9% 100 ML IVPB SCH ×3 (01:51→08:23)
[2017-11-06 05:26] LABS: BASO # 0.1 K/uL (0.0-0.2); BASO % 1.1 % (0.0-2.0); EOS # 0.2 K/uL (0.0-0.7); EOS % 3.3 % (0.0-4.0); HEMOGLOBIN 9.6 g/dL (12.0-16.0); LYMPH # 0.8 K/uL (1.0-4.3); LYMPH % 16.4 % (20.0-40.0); MEAN CELL VOLUME 84.8 fl (81.0-99.0); MEAN CORPUSCULAR HEMOGLOBIN 27.9 pg (27.0-31.0); MEAN PLATELET VOLUME 8.7 fl (7.2-11.7); MONO # 0.6 K/uL (0.0-0.8); NEUT # 3.3 K/uL (1.8-7.0); NEUT % 66.2 % (50.0-75.0); NRBC % 0.2 % (0.0-0.0); RBC 3.43 Mil/uL (3.80-5.20); RED CELL DISTRIBUTION WIDTH 18.4 % (11.5-14.5)
[2017-11-06 06:30] LABS: ALB/GLOB RATIO 1.1 (1.0-2.1); ALBUMIN 3.6 g/dL (3.5-5.0); CALCIUM 9.3 mg/dL (8.4-10.2); T4 6.69 ug/dl (5.5-11.0)
--- NOTE | 2017-11-06 07:28 | CP.PCM.PN ---
Subjective - Date & Time of Evaluation Date of Evaluation: 11/06/17 Time of Evaluation: 07:28 - Subjective Subjective: Podiatry Progress Note - Dr. Briseno 77 y/o female seen and evaluated at bedside for bilateral leg swelling and drained blisters to left lower extremity. Patient sitting in bed with legs in dependent position. No acute events overnight. Patient states she took off the CHAITANYA wraps shortly after yesterday's visit because she could not tolerate the tightness. Offers no complaints to lanced blisters on LLE today. Denies any more itchiness to her thighs. Offers no other complaints. Denies N/V/F/D/C/SOB/ [place]/chest pain/dizziness. Objective - Vital Signs/Intake and Output Vital Signs (last 24 hours): Temp Pulse Resp BP Pulse Ox 97.4 F L 105 H 18 136/68 95 11/06/17 05:21 11/06/17 05:21 11/06/17 05:21 11/06/17 05:21 11/06/17 05:21 - Medications Medications: Current Medications Acetaminophen (Tylenol 325mg Tab) 650 mg PO Q4 PRN PRN Reason: Pain, Mild (1-3) Last Admin: 11/05/17 02:04 Dose: 650 mg Enoxaparin Sodium (Lovenox) 40 mg SC DAILY [facility] PRN Reason: Protocol Last Admin: 11/05/17 09:45 Dose: 40 mg Famotidine (Pepcid) 20 mg PO DAILY [facility] Last Admin: 11/05/17 09:44 Dose: 20 mg Furosemide (Lasix) 20 mg PO BID [facility] Last Admin: 11/05/17 22:05 Dose: 20 mg Glipizide (Glucotrol Xl) 2.5 mg PO DAILY [facility] Last Admin: 11/05/17 09:43 Dose: 2.5 mg Piperacillin Sod/Tazobactam (Sod 3.375 gm/ Sodium Chloride) 100 mls @ 100 mls/ hr IVPB Q8 [facility] PRN Reason: Protocol Last Admin: 11/06/17 01:51 Dose: 100 mls/hr Methimazole (Tapazole) 5 mg PO DAILY [facility] Last Admin: 11/05/17 09:44 Dose: 5 mg Metoprolol Tartrate (Lopressor) 25 mg PO Q12 [facility] Last Admin: 11/05/17 21:00 Dose: Not Given - Labs Labs: 11/06/17 04:20 11/06/17 04:20 - Constitutional Appears: Well, Non-toxic, No Acute Distress - Extremities Exam Additional comments: Vasc: nonpalpable DP and PT pulses secondary to edema, +2 pitting edema to bilateral LE, TG wnl, CFT < 4 sec to all digits Neuro: grossly diminished Derm: +2 pitting edema to bilateral lower extremities, lanced bullae noted to left anterior bravo with no drainage, slight discoloration, no malodor, no fluctuance. Lanced bullae #2 noted to dorsal forefoot filled with mild amount of serous fluid, no ascending cellulitis, no acute clinical signs of infection Ortho: mild tenderness to palpation of posterior right leg, no tenderness to palpation of posterior left leg - Neurological Exam Neurological Exam: Alert, Awake, Oriented x3 - Psychiatric Exam Psychiatric exam: Normal Affect, Normal Mood Assessment and Plan - Assessment and Plan (Free Text) Assessment: 77 y/o female seen at bedside for bilateral lower extremity swelling with bullae secondary to CHF, stable Plan: Patient seen and evaluated Discussed with attending, Dr. Briseno Afebrile, WBC WNL 5.0 Continue local wound care - Xeroform, DSD LLE Encourage CHAITANYA wraps to bilateral LE for edema - patient refusing Bilateral venous duplex negative for DVT Left leg WCx: serratia marcescens, klebsiella oxytoca, enterococcus faecalis Continue permethrin cream Continue abx - Zosyn 3.375g IV q8 Podiatry will continue to follow while in house
[2017-11-06] MEDS: GlipiZIDE 2.5 mg SR Tab PO SCH (08:12)
[2017-11-06] MEDS: Enoxaparin 40 mg Syringe SC SCH (08:13)
[2017-11-06] MEDS: methIMAzole 5 MG TAB PO SCH (08:14)
--- NOTE | 2017-11-06 10:28 | CP.PCM.PN ---
Subjective - Date & Time of Evaluation Date of Evaluation: 11/06/17 Time of Evaluation: 09:00 - Subjective Subjective: NO CHEST PAIN BREATHING COMFORTABLY MAIN COMPLAINTS IS LEG PAIN Objective - Vital Signs/Intake and Output Vital Signs (last 24 hours): Temp Pulse Resp BP Pulse Ox 97.2 F L 85 20 128/67 95 11/06/17 08:08 11/06/17 09:00 11/06/17 08:08 11/06/17 08:18 11/06/17 08:08 - Medications Medications: Current Medications Acetaminophen (Tylenol 325mg Tab) 650 mg PO Q4 PRN PRN Reason: Pain, Mild (1-3) Last Admin: 11/05/17 02:04 Dose: 650 mg Enoxaparin Sodium (Lovenox) 40 mg SC DAILY [facility] PRN Reason: Protocol Last Admin: 11/06/17 08:13 Dose: 40 mg Famotidine (Pepcid) 20 mg PO DAILY [facility] Last Admin: 11/06/17 08:13 Dose: 20 mg Furosemide (Lasix) 20 mg PO BID [facility] Last Admin: 11/06/17 08:18 Dose: 20 mg Glipizide (Glucotrol Xl) 2.5 mg PO DAILY [facility] Last Admin: 11/06/17 08:12 Dose: 2.5 mg Piperacillin Sod/Tazobactam (Sod 3.375 gm/ Sodium Chloride) 100 mls @ 100 mls/ hr IVPB Q8 [facility] PRN Reason: Protocol Last Admin: 11/06/17 08:23 Dose: Not Given Methimazole (Tapazole) 5 mg PO DAILY [facility] Last Admin: 11/06/17 08:14 Dose: 5 mg Metoprolol Tartrate (Lopressor) 25 mg PO Q12 [facility] Last Admin: 11/06/17 08:12 Dose: 25 mg - Labs Labs: 11/06/17 04:20 11/06/17 04:20 - Respiratory Exam Respiratory Exam: Decreased Breath Sounds - Cardiovascular Exam Cardiovascular Exam: REGULAR RHYTHM, +S1, +S2 - Extremities Exam Extremities Exam: Pedal Edema - Additional Findings 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
--- NOTE | 2017-11-06 10:53 | CP.PCM.PN ---
Subjective - Date & Time of Evaluation Date of Evaluation: 11/06/17 Time of Evaluation: 10:51 - Subjective Subjective: Repeat CT chest shows improvement in the pleural effusions. Small residual effusions are still noted, but significantly reduced. Dependant edema of both LE's still present with culture of wound noted. Plan for nuclear myocardial scan tomorrow. Objective - Vital Signs/Intake and Output Vital Signs (last 24 hours): Temp Pulse Resp BP Pulse Ox 97.2 F L 85 20 128/67 95 11/06/17 08:08 11/06/17 09:00 11/06/17 08:08 11/06/17 08:18 11/06/17 08:08 Intake and Output: 11/05/17 11/06/17 23:59 11:59 Intake Total 1450 Balance 1450 - Medications Medications: Current Medications Acetaminophen (Tylenol 325mg Tab) 650 mg PO Q4 PRN PRN Reason: Pain, Mild (1-3) Last Admin: 11/05/17 02:04 Dose: 650 mg Enoxaparin Sodium (Lovenox) 40 mg SC DAILY [facility] PRN Reason: Protocol Last Admin: 11/06/17 08:13 Dose: 40 mg Famotidine (Pepcid) 20 mg PO DAILY [facility] Last Admin: 11/06/17 08:13 Dose: 20 mg Furosemide (Lasix) 20 mg PO BID [facility] Last Admin: 11/06/17 08:18 Dose: 20 mg Glipizide (Glucotrol Xl) 2.5 mg PO DAILY [facility] Last Admin: 11/06/17 08:12 Dose: 2.5 mg Piperacillin Sod/Tazobactam (Sod 3.375 gm/ Sodium Chloride) 100 mls @ 100 mls/ hr IVPB Q8 [facility] PRN Reason: Protocol Last Admin: 11/06/17 08:23 Dose: Not Given Methimazole (Tapazole) 5 mg PO DAILY [facility] Last Admin: 11/06/17 08:14 Dose: 5 mg Metoprolol Tartrate (Lopressor) 25 mg PO Q12 [facility] Last Admin: 11/06/17 08:12 Dose: 25 mg - Labs Labs: 11/06/17 04:20 11/06/17 04:20 Assessment and Plan (1) Edema of both lower extremities due to peripheral venous insufficiency Status: Acute (2) Pleural effusion Status: Chronic
--- NOTE | 2017-11-06 13:55 | CP.PCM.PN ---
Subjective - Date & Time of Evaluation Date of Evaluation: 11/06/17 Time of Evaluation: 08:00 - Subjective Subjective: awaiting nuclear scan c/o burning on leg from antibiotics- nowhere else - likely not related but will change rx Objective - Vital Signs/Intake and Output Vital Signs (last 24 hours): Temp Pulse Resp BP Pulse Ox 97.2 F L 77 20 110/59 L 98 11/06/17 12:05 11/06/17 12:05 11/06/17 12:05 11/06/17 12:05 11/06/17 12:05 - Medications Medications: Current Medications Acetaminophen (Tylenol 325mg Tab) 650 mg PO Q4 PRN PRN Reason: Pain, Mild (1-3) Last Admin: 11/05/17 02:04 Dose: 650 mg Enoxaparin Sodium (Lovenox) 40 mg SC DAILY [facility] PRN Reason: Protocol Last Admin: 11/06/17 08:13 Dose: 40 mg Famotidine (Pepcid) 20 mg PO DAILY [facility] Last Admin: 11/06/17 08:13 Dose: 20 mg Furosemide (Lasix) 20 mg PO BID [facility] Last Admin: 11/06/17 08:18 Dose: 20 mg Glipizide (Glucotrol Xl) 2.5 mg PO DAILY [facility] Last Admin: 11/06/17 08:12 Dose: 2.5 mg Piperacillin Sod/Tazobactam (Sod 3.375 gm/ Sodium Chloride) 100 mls @ 100 mls/ hr IVPB Q8 [facility] PRN Reason: Protocol Last Admin: 11/06/17 08:23 Dose: Not Given Methimazole (Tapazole) 5 mg PO DAILY [facility] Last Admin: 11/06/17 08:14 Dose: 5 mg Metoprolol Tartrate (Lopressor) 25 mg PO Q12 [facility] Last Admin: 11/06/17 08:12 Dose: 25 mg - Labs Labs: 11/06/17 04:20 11/06/17 04:20 - Constitutional Appears: Non-toxic, Chronically Ill - Head Exam Head Exam: NORMOCEPHALIC - Eye Exam Eye Exam: PERRL. absent: Scleral icterus - ENT Exam ENT Exam: Mucous Membranes Dry - Neck Exam Neck Exam: absent: Lymphadenopathy - Respiratory Exam Respiratory Exam: Decreased Breath Sounds - Cardiovascular Exam Cardiovascular Exam: REGULAR RHYTHM - GI/Abdominal Exam GI & Abdominal Exam: Distended - Rectal Exam Rectal Exam: Deferred - Exam Exam: NORMAL INSPECTION - Extremities Exam Extremities Exam: Pedal Edema, Tenderness. absent: Calf Tenderness - Back Exam Back Exam: absent: CVA tenderness (L), CVA tenderness (R) - Neurological Exam Neurological Exam: Alert, Awake, Oriented x3 - Psychiatric Exam Psychiatric exam: Depressed - Skin Skin Exam: Dry Assessment and Plan (1) CHF exacerbation Status: Acute (2) Diabetic neuropathy Status: Chronic (3) Type 2 diabetes mellitus Status: Chronic - Assessment and Plan (Free Text) Assessment: cont wound care and antibiotics cipro cannot be relied upon for enterococcal coverage despite in vitro sensitivity
--- NOTE | 2017-11-06 18:23 | CP.PCM.PN ---
Subjective - Date & Time of Evaluation Date of Evaluation: 11/06/17 Time of Evaluation: 22:22 - Subjective Subjective: Above noted Stress test nino Objective - Vital Signs/Intake and Output Vital Signs (last 24 hours): Temp Pulse Resp BP Pulse Ox 97.2 F L 90 20 104/61 95 11/06/17 15:32 11/06/17 15:32 11/06/17 15:32 11/06/17 17:09 11/06/17 15:32 Intake and Output: 11/06/17 11/06/17 06:59 18:59 Intake Total 1110 Balance 1110 - Medications Medications: Current Medications Acetaminophen (Tylenol 325mg Tab) 650 mg PO Q4 PRN PRN Reason: Pain, Mild (1-3) Last Admin: 11/05/17 02:04 Dose: 650 mg Enoxaparin Sodium (Lovenox) 40 mg SC DAILY [facility] PRN Reason: Protocol Last Admin: 11/06/17 08:13 Dose: 40 mg Famotidine (Pepcid) 20 mg PO DAILY [facility] Last Admin: 11/06/17 08:13 Dose: 20 mg Furosemide (Lasix) 20 mg PO BID [facility] Last Admin: 11/06/17 17:09 Dose: 20 mg Glipizide (Glucotrol Xl) 2.5 mg PO DAILY [facility] Last Admin: 11/06/17 08:12 Dose: 2.5 mg Vancomycin HCl 1 gm/ Sodium (Chloride) 250 mls @ 250 mls/hr IVPB Q24H [facility] PRN Reason: Protocol Last Admin: 11/06/17 17:10 Dose: 250 mls/hr Cefepime HCl 1 gm/ Sodium (Chloride) 100 mls @ 100 mls/hr IVPB Q12 [facility] PRN Reason: Protocol Methimazole (Tapazole) 5 mg PO DAILY [facility] Last Admin: 11/06/17 08:14 Dose: 5 mg Metoprolol Tartrate (Lopressor) 25 mg PO Q12 [facility] Last Admin: 11/06/17 08:12 Dose: 25 mg - Labs Labs: 11/06/17 04:20 11/06/17 04:20 - Respiratory Exam Respiratory Exam: NORMAL BREATHING PATTERN - Cardiovascular Exam Cardiovascular Exam: Tachycardia, REGULAR RHYTHM - GI/Abdominal Exam GI & Abdominal Exam: Normal Bowel Sounds Assessment and Plan - Assessment and Plan (Free Text) Assessment: Low ext edema with blisters- etiol? Venous Insuff?? Infectious? Serratia G- Leg elevation ID Podiatry Abx CHF Diastolic CAD?? Cardiology Stress test?? Hx COPD L Pleural effusion CT scan improvement Pulmonary Anemia etiol? repeat labs ASA d/c as outpt due to dec Hbg Stool for OB pending NIDDM Thyroid dx Endo
--- NOTE | 2017-11-06 20:33 | PN ---
ENDOCRINOLOGY FOLLOWUP NOTE DATE: LOCATION: Room 401. SUBJECTIVE: This is a 77-year-old female with recent uncontrolled type 2 diabetes presenting here with acute exacerbation of congestive heart failure and COPD and is now being followed closely for metabolic management. Her oral intake is quite variable, but improved as noted and the latest glucose levels have ranged from 110-160 mg/dL. Her latest chemistry showed a BUN of 40, sodium 145, potassium 4.6, chloride 100, CO2 of 26, glucose 123 and creatinine 1.2. Her repeat proBNP is 12,300 as noted. So at this time, we will continue the same glipizide given as 2.5 mg once daily and continue her Tapazole given as 5 mg once daily as ordered. Her latest thyroid study showed a T4 of 6.69 with a TSH of 1.92. So we will obtain serial chemistries and serial thyroid studies and adjust her dose regimen accordingly. We will follow. Lucia Corley MD
[2017-11-06] MEDS: Cefepime 1 GM in Sodium Chloride 0.9% 100 ML IVPB SCH (21:20)
--- NOTE | 2017-11-07 07:22 | CP.PCM.PN ---
Subjective - Date & Time of Evaluation Date of Evaluation: 11/07/17 Time of Evaluation: 07:22 - Subjective Subjective: Podiatry Progress Note - Dr. Briseno 77 y/o female seen and evaluated at bedside for bilateral leg swelling and drained blisters to left lower extremity. No acute events overnight. Dressing to LLE unraveled, loosened. Complaining of RLE pain and stiffness. No longer complaining of itchiness, still using permethrin cream. Patient is scheduled for stress test this AM, NPO confirmed. Offers no other complaints. Denies N/V/F /D/C/SOB/HILTON/chest pain/dizziness. Objective - Vital Signs/Intake and Output Vital Signs (last 24 hours): Temp Pulse Resp BP Pulse Ox 97.2 F L 79 18 118/64 96 11/07/17 04:55 11/07/17 04:55 11/07/17 04:55 11/07/17 04:55 11/07/17 04:55 - Medications Medications: Current Medications Acetaminophen (Tylenol 325mg Tab) 650 mg PO Q4 PRN PRN Reason: Pain, Mild (1-3) Last Admin: 11/05/17 02:04 Dose: 650 mg Enoxaparin Sodium (Lovenox) 40 mg SC DAILY [facility] PRN Reason: Protocol Last Admin: 11/06/17 08:13 Dose: 40 mg Famotidine (Pepcid) 20 mg PO DAILY [facility] Last Admin: 11/06/17 08:13 Dose: 20 mg Furosemide (Lasix) 20 mg PO BID [facility] Last Admin: 11/06/17 17:09 Dose: 20 mg Glipizide (Glucotrol Xl) 2.5 mg PO DAILY [facility] Last Admin: 11/06/17 08:12 Dose: 2.5 mg Vancomycin HCl 1 gm/ Sodium (Chloride) 250 mls @ 250 mls/hr IVPB Q24H [facility] PRN Reason: Protocol Last Admin: 11/06/17 17:10 Dose: 250 mls/hr Cefepime HCl 1 gm/ Sodium (Chloride) 100 mls @ 100 mls/hr IVPB Q12 [facility] PRN Reason: Protocol Last Admin: 11/06/17 21:20 Dose: 100 mls/hr Methimazole (Tapazole) 5 mg PO DAILY [facility] Last Admin: 11/06/17 08:14 Dose: 5 mg Metoprolol Tartrate (Lopressor) 25 mg PO Q12 [facility] Last Admin: 11/06/17 21:19 Dose: 25 mg - Labs Labs: 11/06/17 04:20 11/06/17 04:20 - Constitutional Appears: Well, Non-toxic, No Acute Distress - Extremities Exam Additional comments: Vasc: nonpalpable DP and PT pulses secondary to edema, +2 pitting edema to bilateral LE, TG wnl, CFT < 4 sec to all digits Neuro: grossly diminished Derm: lanced bullae noted to left anterior leg with no drainage, slight discoloration, no malodor, no fluctuance. Lanced bullae #2 noted to dorsal forefoot filled with serous fluid refilling part of bullae, no ascending cellulitis, no acute clinical signs of infection. Deroofed bullae with weeping noted to anterior right leg - serous drainage noted , no periwound erythema noted Ortho: mild tenderness to palpation of posterior right leg, no tenderness to palpation of posterior left leg - Neurological Exam Neurological Exam: Alert, Awake, Oriented x3 - Psychiatric Exam Psychiatric exam: Normal Affect, Normal Mood Assessment and Plan - Assessment and Plan (Free Text) Assessment: 77 y/o female seen at bedside for bilateral lower extremity swelling with bullae secondary to CHF Plan: Patient seen and evaluated with attending, Dr. Briseno Afebrile Continue local wound care - Xeroform, DSD LLE, CHAITANYA wraps Encourage CHAITANYA wraps to bilateral LE for reduction of edema Bilateral venous duplex negative for DVT Left leg WCx: serratia marcescens, klebsiella oxytoca, enterococcus faecalis Continue permethrin cream Continue abx - Cefepime 1g IV, Vancomycin 1g IV Podiatry will continue to follow while in house
--- NOTE | 2017-11-07 09:21 | CP.PCM.PN ---
Subjective - Date & Time of Evaluation Date of Evaluation: 11/07/17 Time of Evaluation: 09:30 - Subjective Subjective: NO CHEST PAIN BREATHING BETTER Objective - Vital Signs/Intake and Output Vital Signs (last 24 hours): Temp Pulse Resp BP Pulse Ox 97.5 F L 73 20 112/62 96 11/07/17 08:00 11/07/17 08:00 11/07/17 08:00 11/07/17 08:00 11/07/17 08:00 - Medications Medications: Current Medications Acetaminophen (Tylenol 325mg Tab) 650 mg PO Q4 PRN PRN Reason: Pain, Mild (1-3) Last Admin: 11/05/17 02:04 Dose: 650 mg Enoxaparin Sodium (Lovenox) 40 mg SC DAILY [facility] PRN Reason: Protocol Last Admin: 11/06/17 08:13 Dose: 40 mg Famotidine (Pepcid) 20 mg PO DAILY [facility] Last Admin: 11/06/17 08:13 Dose: 20 mg Furosemide (Lasix) 20 mg PO BID [facility] Last Admin: 11/06/17 17:09 Dose: 20 mg Glipizide (Glucotrol Xl) 2.5 mg PO DAILY [facility] Last Admin: 11/06/17 08:12 Dose: 2.5 mg Vancomycin HCl 1 gm/ Sodium (Chloride) 250 mls @ 250 mls/hr IVPB Q24H [facility] PRN Reason: Protocol Last Admin: 11/06/17 17:10 Dose: 250 mls/hr Cefepime HCl 1 gm/ Sodium (Chloride) 100 mls @ 100 mls/hr IVPB Q12 [facility] PRN Reason: Protocol Last Admin: 11/06/17 21:20 Dose: 100 mls/hr Methimazole (Tapazole) 5 mg PO DAILY [facility] Last Admin: 11/06/17 08:14 Dose: 5 mg Metoprolol Tartrate (Lopressor) 25 mg PO Q12 [facility] Last Admin: 11/06/17 21:19 Dose: 25 mg - Labs Labs: 11/06/17 04:20 11/06/17 04:20 - Respiratory Exam Respiratory Exam: Clear to Ausculation Bilateral - Cardiovascular Exam Cardiovascular Exam: REGULAR RHYTHM, +S1, +S2 - Additional Findings Additional findings: [employer] NSR Assessment and Plan - Assessment and Plan (Free Text) Assessment: LEG EDEMA FROM VENOUS INSUFFICIENCY SMALL BILATERAL PLEURAL EFFUSIONS Plan: FOR PHARMACOLOGICAL STRESS TEST TODAY
--- NOTE | 2017-11-07 10:26 | PQF GENQUE ---
, Please clarify the stage of the chronic kidney disease: if in agreement with Consultants VERSUS CKD ruled out Stage 1 Stage 2 (mild) Stage 3 (moderate) Stage 4 (severe) Stage 5 Other (please specify) Clinically unable to determine Unknown BUN:27->27 Creatinine:0.9->0.9 Est GFR ( Amer/Non-Af Amer): >60/ >60-->60/>60->60/53->52/43 Multiple Caddymaster Notes: RENAL Hx Chronic Kidney Disease: Yes Hx Kidney Stones: Yes (kidney stone removal) This form is a permanent part of the medical record Clarification of your documentation is requested to better reflect the severity of illness and intensity of treatment of your patient. Indicators present [] Specify: [] [] Specify: [] [] Specify: [] [] Specify: [] Location in the medical record that reflects the above clinical findings: [] Treatment Provided: [] PHYSICIAN'S RESPONSE Based on your medical judgment of the clinical indicators outlined above please clarify the following: [] Practitioner response [] If unable to determine, please check the box, sign and date. Present On Admission (POA) Indicator: [] Present at the time of admission [] Not present at the time of admission [] Clinically Undetermined In responding to this query, please exercise your independent professional judgment. The fact that a question is asked does not imply that any particular answer is desired or expected. Thank you for your clarification on this documentation. If you have any questions please call. * Thank you, Theresa Page RN ext. #[phone] MTDD
[2017-11-07] MEDS: Cefepime 1 GM in Sodium Chloride 0.9% 100 ML IVPB SCH (13:25)
[2017-11-07] MEDS: Enoxaparin 40 mg Syringe SC SCH (13:29)
[2017-11-07] MEDS: methIMAzole 5 MG TAB PO SCH (13:30)
[2017-11-07] MEDS: GlipiZIDE 2.5 mg SR Tab PO SCH (13:33)
--- NOTE | 2017-11-07 16:27 | PN ---
DATE: ENDO FOLLOWUP NOTE LOCATION: Room 401. SUBJECTIVE: This is a 77-year-old female presenting here with congestive heart failure and supervening acute exacerbation of COPD and is now being followed closely for metabolic management. Her oral intake remains quite variable at this time and the latest glucose levels overnight showed glucose of 110 and the glucose levels are ranging from 110 to 142 and 141 mg/dL. The latest chemistry showed BUN of 40, sodium of 145, potassium of 4.6, chloride of 100, CO2 of 26, glucose of 123, and creatinine of 1.2. So at this time, we will continue the low-dose oral hypoglycemic therapy with glipizide given as 2.5 mg once daily as ordered. She also remains clinically and biochemically euthyroid at this time and the latest thyroid study showed T4 of 6.69 with the TSH of 1.92. So, at this time, we will continue also the low-dose Tapazole given as 5 mg once daily as ordered. We will titrate incrementally as indicated to optimize metabolic control. We will follow and advise accordingly. Lucia Corley MD
--- NOTE | 2017-11-07 18:30 | CP.PCM.PN ---
Subjective - Date & Time of Evaluation Date of Evaluation: 11/07/17 Time of Evaluation: 09:00 - Subjective Subjective: refusing further iv rx wants pills Objective - Vital Signs/Intake and Output Vital Signs (last 24 hours): Temp Pulse Resp BP Pulse Ox 97.1 F L 68 20 98/61 L 95 11/07/17 15:34 11/07/17 15:34 11/07/17 15:34 11/07/17 16:51 11/07/17 15:34 Intake and Output: 11/07/17 11/07/17 06:59 18:59 Intake Total 1210 Balance 1210 - Medications Medications: Current Medications Acetaminophen (Tylenol 325mg Tab) 650 mg PO Q4 PRN PRN Reason: Pain, Mild (1-3) Last Admin: 11/05/17 02:04 Dose: 650 mg Enoxaparin Sodium (Lovenox) 40 mg SC DAILY [facility] PRN Reason: Protocol Last Admin: 11/07/17 13:29 Dose: 40 mg Famotidine (Pepcid) 20 mg PO DAILY [facility] Last Admin: 11/07/17 13:30 Dose: 20 mg Furosemide (Lasix) 20 mg PO BID [facility] Last Admin: 11/07/17 16:51 Dose: Not Given Glipizide (Glucotrol Xl) 2.5 mg PO DAILY [facility] Last Admin: 11/07/17 13:33 Dose: 2.5 mg Vancomycin HCl 1 gm/ Sodium (Chloride) 250 mls @ 250 mls/hr IVPB Q24H [facility] PRN Reason: Protocol Last Admin: 11/07/17 16:52 Dose: 250 mls/hr Cefepime HCl 1 gm/ Sodium (Chloride) 100 mls @ 100 mls/hr IVPB Q12 [facility] PRN Reason: Protocol Last Admin: 11/07/17 13:25 Dose: 100 mls/hr Methimazole (Tapazole) 5 mg PO DAILY [facility] Last Admin: 11/07/17 13:30 Dose: 5 mg Metoprolol Tartrate (Lopressor) 25 mg PO Q12 [facility] Last Admin: 11/07/17 13:31 Dose: 25 mg - Labs Labs: 11/06/17 04:20 11/06/17 04:20 - Constitutional Appears: Non-toxic, Chronically Ill - Head Exam Head Exam: NORMOCEPHALIC - Eye Exam Eye Exam: absent: Scleral icterus - ENT Exam ENT Exam: Mucous Membranes Dry - Neck Exam Neck Exam: absent: Lymphadenopathy - Respiratory Exam Respiratory Exam: Decreased Breath Sounds - Cardiovascular Exam Cardiovascular Exam: REGULAR RHYTHM - GI/Abdominal Exam GI & Abdominal Exam: Distended Assessment and Plan (1) CHF exacerbation Status: Acute (2) Diabetic neuropathy Status: Chronic (3) Type 2 diabetes mellitus Status: Chronic - Assessment and Plan (Free Text) Assessment: cont rx
--- NOTE | 2017-11-07 21:28 | CP.PCM.PN ---
Subjective - Date & Time of Evaluation Date of Evaluation: 11/07/17 Time of Evaluation: 22:22 - Subjective Subjective: Stress thalium today Objective - Vital Signs/Intake and Output Vital Signs (last 24 hours): Temp Pulse Resp BP Pulse Ox 98.0 F 84 20 107/62 94 L 11/07/17 20:05 11/07/17 20:05 11/07/17 20:05 11/07/17 20:05 11/07/17 20:05 Intake and Output: 11/07/17 11/08/17 18:59 06:59 Intake Total 1210 Balance 1210 - Medications Medications: Current Medications Acetaminophen (Tylenol 325mg Tab) 650 mg PO Q4 PRN PRN Reason: Pain, Mild (1-3) Last Admin: 11/05/17 02:04 Dose: 650 mg Amoxicillin (Amoxil 500 Mg Cap) 500 mg PO Q8 [facility] PRN Reason: Protocol Last Admin: 11/07/17 19:11 Dose: 500 mg Enoxaparin Sodium (Lovenox) 40 mg SC DAILY [facility] PRN Reason: Protocol Last Admin: 11/07/17 13:29 Dose: 40 mg Famotidine (Pepcid) 20 mg PO DAILY [facility] Last Admin: 11/07/17 13:30 Dose: 20 mg Furosemide (Lasix) 20 mg PO BID [facility] Last Admin: 11/07/17 16:51 Dose: Not Given Glipizide (Glucotrol Xl) 2.5 mg PO DAILY [facility] Last Admin: 11/07/17 13:33 Dose: 2.5 mg Methimazole (Tapazole) 5 mg PO DAILY [facility] Last Admin: 11/07/17 13:30 Dose: 5 mg Metoprolol Tartrate (Lopressor) 25 mg PO Q12 [facility] Last Admin: 11/07/17 13:31 Dose: 25 mg Moxifloxacin HCl (Avelox) 400 mg PO DAILY [facility] PRN Reason: Protocol - Labs Labs: 11/06/17 04:20 11/06/17 04:20 - Respiratory Exam Respiratory Exam: NORMAL BREATHING PATTERN - Cardiovascular Exam Cardiovascular Exam: REGULAR RHYTHM - GI/Abdominal Exam GI & Abdominal Exam: Normal Bowel Sounds Assessment and Plan - Assessment and Plan (Free Text) Assessment: Low ext edema with blisters- etiol? Improved Venous Insuff?? Infectious? Serratia G- Leg elevation ID Podiatry oral Abx CHF Diastolic CAD?? Cardiology Stress test?? Hx COPD L Pleural effusion CT scan improvement Pulmonary Anemia etiol? repeat labs ASA d/c as outpt due to dec Hbg Stool for OB pending?? NIDDM Thyroid dx Endo
--- NOTE | 2017-11-08 06:58 | CP.PCM.PN ---
Subjective - Date & Time of Evaluation Date of Evaluation: 11/08/17 Time of Evaluation: 06:58 - Subjective Subjective: Podiatry Progress Note - Dr. Briseno 77 y/o female seen and evaluated at bedside for bilateral leg swelling and drained blisters to left lower extremity. No acute events overnight. Patient seen sitting in bed, legs in dependent position. Dressings intact with CHAITANYA wraps to bilateral LE. Denies any pain to LE today. Offers no other complaints. Denies N/V/F/D/C/SOB/HILTON/chest pain/dizziness. Objective - Vital Signs/Intake and Output Vital Signs (last 24 hours): Temp Pulse Resp BP Pulse Ox 97.4 F L 78 18 124/69 96 11/08/17 05:04 11/08/17 05:04 11/08/17 05:04 11/08/17 05:04 11/08/17 05:04 Intake and Output: 11/07/17 11/08/17 18:59 06:59 Intake Total 1210 Balance 1210 - Medications Medications: Current Medications Acetaminophen (Tylenol 325mg Tab) 650 mg PO Q4 PRN PRN Reason: Pain, Mild (1-3) Last Admin: 11/08/17 01:18 Dose: 650 mg Amoxicillin (Amoxil 500 Mg Cap) 500 mg PO Q8 [facility] PRN Reason: Protocol Last Admin: 11/08/17 01:00 Dose: 500 mg Enoxaparin Sodium (Lovenox) 40 mg SC DAILY [facility] PRN Reason: Protocol Last Admin: 11/07/17 13:29 Dose: 40 mg Famotidine (Pepcid) 20 mg PO DAILY [facility] Last Admin: 11/07/17 13:30 Dose: 20 mg Furosemide (Lasix) 20 mg PO BID [facility] Last Admin: 11/07/17 16:51 Dose: Not Given Glipizide (Glucotrol Xl) 2.5 mg PO DAILY [facility] Last Admin: 11/07/17 13:33 Dose: 2.5 mg Methimazole (Tapazole) 5 mg PO DAILY [facility] Last Admin: 11/07/17 13:30 Dose: 5 mg Metoprolol Tartrate (Lopressor) 25 mg PO Q12 [facility] Last Admin: 11/07/17 21:27 Dose: 25 mg Moxifloxacin HCl (Avelox) 400 mg PO DAILY [facility] PRN Reason: Protocol - Labs Labs: 11/06/17 04:20 11/06/17 04:20 - Constitutional Appears: Well, Non-toxic, No Acute Distress - Extremities Exam Additional comments: Vasc: DP pulses weakly palpable 1/4 b/l. Nonpalpable PT pulses secondary to edema, +2 pitting edema to bilateral LE, TG wnl, CFT < 4 sec to all digits Neuro: grossly diminished Derm: lanced bullae noted to left anterior leg with no drainage, slight discoloration, no malodor, no fluctuance. Lanced bullae #2 noted to dorsal forefoot filled with serous fluid refilling part of bullae, no ascending cellulitis, no acute clinical signs of infection. Deroofed bullae with weeping noted to anterior right leg, no periwound erythema noted Ortho: no tenderness to palpation of posterior right leg, no tenderness to palpation of posterior left leg - Neurological Exam Neurological Exam: Alert, Awake, Oriented x3 - Psychiatric Exam Psychiatric exam: Normal Affect, Normal Mood Assessment and Plan - Assessment and Plan (Free Text) Assessment: 77 y/o female seen at bedside for bilateral lower extremity swelling with bullae secondary to CHF, improving Plan: Patient seen and evaluated with attending, Dr. Briseno Afebrile Bilateral venous duplex negative for DVT Left leg WCx: serratia marcescens, klebsiella oxytoca, enterococcus faecalis Continue local wound care - Durafiber, Allevyn pads, CHAITANYA Bilateral lower extremity improving -Pitting edema secondary to CHF -Encourage LE elevation, minimize legs in dependent position Wounds appear stable at this time Continue permethrin cream Continue abx per ID - patient refusing further IV Rx, continue Amoxicillin 500mg PO q8, Moxiflocacin 400mg PO QD Podiatry will continue to follow while in house
--- NOTE | 2017-11-08 07:42 | CARD ---
APPROVED REPORT Protocol: LEXISCAN Test Type: Stress Nuclear Medications: Lovenox 40mg, Pepcid 20mg, Lasix 20mg, Glipizide 2.5mg,, Toradol 15mg, Cefepin Metooprolol 25mg, Medical History: HTN, Hyperthyroidism, CHF,Appendectomy, Lower ext edema, Drained Blister, Diabetes, Target HR: 141 bpm Resting ECG: normal Resting Heart Rate: 96 bpm Resting Blood Pressure: 139/69mmHg submaximum (85%): 120 bpm TEST SUMMARY [id number]. [id number]. INJECTIONNS [id number]. INJECTIONNUC [id number]. [id number]. PROCEDURE Pharmacologic stress testing was performed using 0.4mg per 5ml of regadenoson given intravenously over 7-10 seconds. POST EXERCISE Reason for Termination: Pharmacologic Stress Test Target HR: No Max HR: 106 bpm 75% of Maximum Predicted HR: 141 bpm Exercise duration: 01:00 min:sec, 0 Stage Exercise capacity: 1.0METs Max Blood Pressure: 160/68mmHg Blood Pressure response to exercise: normal resting BP - appropriate response Heart Rate response to exercise: appropriate Chest Pain: No, none Angina index: 0 Arrhythmia: No, none ST Change: No, none Deviation: 0 mm Clinical Indications Under Appropriate Use Criteria This 77-year-old female underwent this study to rule out evidence of coronary artery disease. She was recently hospitalized with worsening pedal edema and increasing abdominal girth. She denied prior history of chest pain or myocardial infarction. Her resting electric cardiogram showed sinus rhythm with nonspecific ST-T changes. Her resting blood pressure was 139/69 mmHg. Her cardiac auscultation was unremarkable. Stress EKG Interpretation The patient underwent a resting myocardial scan after 10 mCi of sestamibi was given intravenously followed 45 minutes later by myocardial scanning. An hour and a half from the initial administration of sestamibi, the patient was given 0.4 mg of Lexiscan intravenously over 10 seconds followed immediately by 30 mCi of sestamibi given intravenously. The patient tolerated Lexiscan infusion without any symptoms and with appropriate changes in her heart rate and blood pressure. Patient left the stress lab symptom free and hemodynamically stable. 45 minutes later the patient underwent a second myocardial scan. The 2 sets of images were processed. Gated and planar images were acquired. Tomographic images were examined. EXAM: Myocardial Perfusion REST/STRESS Image QualityGood Imaging Protocol The imaging protocol used to acquire images was Rest Tc-99m/stress Tc-99m 1 day Rest Spect myocardial perfusion imaging was performed in supine position 60 minutes following the injection of 10 mCi of Tc-99 Myoview. Time of rest injection: 9:00 Time of rest imagin:02 At peak stress, the patient was injected intravenously with 30mCi of Tc-99 tetrofosmin after an infusion time of minutes and seconds. Time of stress injection: 11:40 Time of stress imagin:00 Gated Stress Spect was performed 80 minutes after intravenous Tc-99 Myoview injection. The images were gated to evaluate regional wall motion and calculate ventricular ejection fraction. LV Perfusion The tomographic images showed a fixed sestamibi uptake deficit involving a large area which included a entire anterior wall anteroseptal region and apical two thirds of inferior wall on both resting as well as post Lexiscan images. The remaining left ventricular wall segments demonstrated normal regional sestamibi uptake. Wall Motion Gated images showed a dilated left ventricle with severe hypokinesia involving anterior and anteroseptal region and moderate hypokinesia involving lateral wall. Overall left ventricular ejection fraction was calculated at 43%. CONCLUSION 1. The images were suggestive of presence of myocardial scar involving anterior wall, anteroseptal and inferior wall which represent left anterior descending and right circumflex artery territories respectively. Overall left ventricular systolic function was depressed and the ejection fraction was estimated at 43%. Recommendation The patient would benefit by undergoing ischemia workup.
[2017-11-08] MEDS: GlipiZIDE 2.5 mg SR Tab PO SCH (09:08)
[2017-11-08] MEDS: methIMAzole 5 MG TAB PO SCH (09:08)
[2017-11-08] MEDS: Enoxaparin 40 mg Syringe SC SCH (09:09)
--- NOTE | 2017-11-08 09:41 | CP.PCM.PN ---
Subjective - Date & Time of Evaluation Date of Evaluation: 11/08/17 Time of Evaluation: 09:30 - Subjective Subjective: NO CHEST PAIN BREATHING WELL Objective - Vital Signs/Intake and Output Vital Signs (last 24 hours): Temp Pulse Resp BP Pulse Ox 98 F 83 20 117/60 92 L 11/08/17 08:00 11/08/17 09:09 11/08/17 08:00 11/08/17 09:09 11/08/17 08:00 - Medications Medications: Current Medications Acetaminophen (Tylenol 325mg Tab) 650 mg PO Q4 PRN PRN Reason: Pain, Mild (1-3) Last Admin: 11/08/17 01:18 Dose: 650 mg Amoxicillin (Amoxil 500 Mg Cap) 500 mg PO Q8 [facility] PRN Reason: Protocol Last Admin: 11/08/17 09:08 Dose: 500 mg Clopidogrel Bisulfate (Plavix) 75 mg PO DAILY [facility] Famotidine (Pepcid) 20 mg PO DAILY [facility] Last Admin: 11/08/17 09:10 Dose: 20 mg Furosemide (Lasix) 20 mg PO BID [facility] Last Admin: 11/08/17 09:08 Dose: 20 mg Glipizide (Glucotrol Xl) 2.5 mg PO DAILY [facility] Last Admin: 11/08/17 09:08 Dose: 2.5 mg Isosorbide Mononitrate (Imdur Er) 30 mg PO DAILY [facility] Methimazole (Tapazole) 5 mg PO DAILY [facility] Last Admin: 11/08/17 09:08 Dose: 5 mg Metoprolol Tartrate (Lopressor) 25 mg PO Q12 [facility] Last Admin: 11/08/17 09:09 Dose: 25 mg Moxifloxacin HCl (Avelox) 400 mg PO DAILY [facility] PRN Reason: Protocol Last Admin: 11/08/17 09:08 Dose: 400 mg - Labs Labs: 11/06/17 04:20 11/06/17 04:20 - Respiratory Exam Respiratory Exam: Clear to Ausculation Bilateral - Cardiovascular Exam Cardiovascular Exam: REGULAR RHYTHM, +S1, +S2 - Additional Findings Additional findings: PHARMACOLOGICAL STRESS TEST SHOWED SCARRING AND POSSIBLY SOME ISCHEMIA IN MY OPINION Assessment and Plan - Assessment and Plan (Free Text) Assessment: CAD BILATERAL SMALL PLEURAL EFFUSIONS LOWER EXTREMITY VENOUS INSUFFICIENCY TYPE 2 DM Plan: A CARDIAC CATH WAS RECOMMENDED TO THE PATIENT TO SEE IS SHE NEEDS REVASCULARIZATION BUT SHE DECLINED OPTING FOR CONSERVATIVE MEDICAL TREATMENT CONTINUE METOPROLOL AND FUROSEMIDE WILL ADD ISOSORBIDE MONONITRATE 30 MGS PO DAILY AND CLOPIDOGREL 75 MGS DAILY( ASPIRIN WAS NOT USED IT IRRITATED HER STOMACH RECENTLY AND WAS DISCONTINUED) OK TO DISCHARGE PATIENT FROM THE CARDIAC [facility]-I WILL SEE THE PATIENT IN THE OFFICE IN ABOUT 2 WEEKS-SHE WILL CALL TO MAKE AN APPOINTMENT
--- NOTE | 2017-11-08 10:21 | CP.PCM.PN ---
Subjective - Date & Time of Evaluation Date of Evaluation: 11/08/17 Time of Evaluation: 10:21 - Subjective Subjective: Seated on the edge of the bed, appears comfortable. Stress Myoview completed yesterday, results pending. Dependent edema is present in both lower extremities with little change from the day prior. Both lower extremities are wrapped in Danny bandages. No cyanosis. Vital signs remained stable and she is afebrile. No complaint of shortness of breath. Breath sounds are diminished bilaterally with few dry rales heard at the bases posteriorly. No bronchial breathing or any egophony. No rhonchi or rub. Minimal dullness to percussion is noted at the bases posteriorly. Objective - Vital Signs/Intake and Output Vital Signs (last 24 hours): Temp Pulse Resp BP Pulse Ox 98 F 83 20 117/60 92 L 11/08/17 08:00 11/08/17 09:09 11/08/17 08:00 11/08/17 09:09 11/08/17 08:00 Intake and Output: 11/07/17 11/08/17 23:59 11:59 Intake Total 1210 Balance 1210 - Medications Medications: Current Medications Acetaminophen (Tylenol 325mg Tab) 650 mg PO Q4 PRN PRN Reason: Pain, Mild (1-3) Last Admin: 11/08/17 01:18 Dose: 650 mg Amoxicillin (Amoxil 500 Mg Cap) 500 mg PO Q8 [facility] PRN Reason: Protocol Last Admin: 11/08/17 09:08 Dose: 500 mg Clopidogrel Bisulfate (Plavix) 75 mg PO DAILY [facility] Famotidine (Pepcid) 20 mg PO DAILY [facility] Last Admin: 11/08/17 09:10 Dose: 20 mg Furosemide (Lasix) 20 mg PO BID [facility] Last Admin: 11/08/17 09:08 Dose: 20 mg Glipizide (Glucotrol Xl) 2.5 mg PO DAILY [facility] Last Admin: 11/08/17 09:08 Dose: 2.5 mg Isosorbide Mononitrate (Imdur Er) 30 mg PO DAILY [facility] Methimazole (Tapazole) 5 mg PO DAILY [facility] Last Admin: 11/08/17 09:08 Dose: 5 mg Metoprolol Tartrate (Lopressor) 25 mg PO Q12 [facility] Last Admin: 11/08/17 09:09 Dose: 25 mg Moxifloxacin HCl (Avelox) 400 mg PO DAILY [facility] PRN Reason: Protocol Last Admin: 11/08/17 09:08 Dose: 400 mg - Labs Labs: 11/06/17 04:20 11/06/17 04:20 Assessment and Plan (1) Edema of both lower extremities due to peripheral venous insufficiency Status: Acute (2) Pleural effusion Status: Chronic
--- NOTE | 2017-11-08 12:59 | PN ---
DATE: ENDO FOLLOWUP NOTE LOCATION: Room 401. SUBJECTIVE: This is a 77-year-old female presenting here with congestive heart failure and acute exacerbation of COPD and is now improving both clinically and metabolically as noted thereof. Her glucose values are much improved at this time and are ranging from 131 mg/dL to 141 mg/dL. Her latest chemistry showed BUN of 40, sodium of 145, potassium of 4.6, chloride of 100, CO2 of 26, glucose of 123, and creatinine of 1.2. So at this time, we will continue the same low-dose oral hypoglycemic therapy with glipizide given as 2.5 mg daily as ordered. She remains clinically and biochemically euthyroid at this time and we will continue the same Tapazole given as 5 mg once daily as ordered. Her latest thyroid study showed T4 of 6.69 with TSH of 1.92. So at this time, we will obtain serial chemistries and serial thyroid studies and adjust her dose regimen accordingly. We will follow. Lucia Corley MD
--- NOTE | 2017-11-08 13:52 | CP.PCM.PN ---
Subjective - Date & Time of Evaluation Date of Evaluation: 11/08/17 Time of Evaluation: 08:00 - Subjective Subjective: switched to PO rx tolerating so far afeb Objective - Vital Signs/Intake and Output Vital Signs (last 24 hours): Temp Pulse Resp BP Pulse Ox 97.7 F 76 18 125/71 97 11/08/17 12:00 11/08/17 12:00 11/08/17 12:00 11/08/17 12:00 11/08/17 12:00 - Medications Medications: Current Medications Acetaminophen (Tylenol 325mg Tab) 650 mg PO Q4 PRN PRN Reason: Pain, Mild (1-3) Last Admin: 11/08/17 01:18 Dose: 650 mg Amoxicillin (Amoxil 500 Mg Cap) 500 mg PO Q8 [facility] PRN Reason: Protocol Last Admin: 11/08/17 09:08 Dose: 500 mg Clopidogrel Bisulfate (Plavix) 75 mg PO DAILY [facility] Last Admin: 11/08/17 11:49 Dose: 75 mg Desoximetasone (Topicort 0.25%) 1 ea TOP BID [facility] Famotidine (Pepcid) 20 mg PO DAILY [facility] Last Admin: 11/08/17 09:10 Dose: 20 mg Furosemide (Lasix) 20 mg PO BID [facility] Last Admin: 11/08/17 09:08 Dose: 20 mg Glipizide (Glucotrol Xl) 2.5 mg PO DAILY [facility] Last Admin: 11/08/17 09:08 Dose: 2.5 mg Isosorbide Mononitrate (Imdur Er) 30 mg PO DAILY [facility] Last Admin: 11/08/17 11:49 Dose: 30 mg Methimazole (Tapazole) 5 mg PO DAILY [facility] Last Admin: 11/08/17 09:08 Dose: 5 mg Metoprolol Tartrate (Lopressor) 25 mg PO Q12 [facility] Last Admin: 11/08/17 09:09 Dose: 25 mg Moxifloxacin HCl (Avelox) 400 mg PO DAILY [facility] PRN Reason: Protocol Last Admin: 11/08/17 09:08 Dose: 400 mg - Labs Labs: 11/06/17 04:20 11/06/17 04:20 - Constitutional Appears: Non-toxic, Chronically Ill - Head Exam Head Exam: NORMOCEPHALIC - Eye Exam Eye Exam: PERRL - ENT Exam ENT Exam: Mucous Membranes Dry - Neck Exam Neck Exam: absent: Lymphadenopathy - Respiratory Exam Respiratory Exam: Decreased Breath Sounds - Cardiovascular Exam Cardiovascular Exam: REGULAR RHYTHM - GI/Abdominal Exam GI & Abdominal Exam: Distended, Soft - Rectal Exam Rectal Exam: Deferred - Exam Exam: NORMAL INSPECTION - Extremities Exam Extremities Exam: absent: Pedal Edema - Back Exam Back Exam: absent: CVA tenderness (L), CVA tenderness (R) Assessment and Plan (1) CHF exacerbation Status: Acute (2) Diabetic neuropathy Status: Chronic (3) Type 2 diabetes mellitus Status: Chronic - Assessment and Plan (Free Text) Assessment: cont ampi/avelox
[2017-11-08 16:18] VITALS: BP 102/52; PULSE 71; RESP 20; TEMP 97.1; O2SAT 95
[2017-11-08] MEDS ORDERED: Desoximetasone 0.25% Cream(15 gm) TOP SCH (17:00)
== END 2017-11-08 15:30 | DRG 190 ==
LOC: H.ER 16:31 → H.ERHOLD 18:55 → H.TEL 21:34
PROVIDERS: ADMIT Family Medicine Geriatric Medicine; ATTEND Family Medicine Geriatric Medicine
PROC: 0H9NXZZ Drainage of Left Foot Skin, External Approach (ICD-10-PCS; principal; 2017-11-02)
DX: J44.1 Chronic obstructive pulmonary disease with (acute) exacerbation (principal); I50.33 Acute on chronic diastolic (congestive) heart failure; N17.9 Acute kidney failure, unspecified; N39.0 Urinary tract infection, site not specified; I11.0 Hypertensive heart disease with heart failure; E11.42 Type 2 diabetes mellitus with diabetic polyneuropathy; E11.319 Type 2 diabetes mellitus with unspecified diabetic retinopathy without macular edema; D64.9 Anemia, unspecified; R23.8 Other skin changes; E05.00 Thyrotoxicosis with diffuse goiter without thyrotoxic crisis or storm; E06.3 Autoimmune thyroiditis; M81.0 Age-related osteoporosis without current pathological fracture; I87.2 Venous insufficiency (chronic) (peripheral); B95.2 Enterococcus as the cause of diseases classified elsewhere; S90.822A Blister (nonthermal), left foot, initial encounter; I25.10 Atherosclerotic heart disease of native coronary artery without angina pectoris; I83.93 Asymptomatic varicose veins of bilateral lower extremities; E78.00 Pure hypercholesterolemia, unspecified

== ENCOUNTER 2017-11-08 15:35 | Inpatient (IN) | payer OTHER ==
[2017-11-08 16:02] VITALS: BMI 28.1
[2017-11-08 17:13] VITALS: RESP 20
--- NOTE | 2017-11-08 19:53 | CP.PCM.HP ---
History of Present Illness - History of Present Illness History of Present Illness: 77 yo transferred from Telemetry Present on Admission - Present on Admission Any Indicators Present on Admission: No Past Patient History - Infectious Disease Hx of Infectious Diseases: None - Past Medical History & Family History Past Medical History?: Yes - Past Social History Smoking Status: Former Smoker - CARDIAC Hx Congestive Heart Failure: Yes Hx Hypercholesterolemia: Yes Hx Hypertension: Yes Hx Peripheral Edema: Yes - PULMONARY Hx Bronchitis: Yes Hx Pneumonia: Yes - NEUROLOGICAL Hx Neurological Disorder: No - HEENT Hx HEENT Problems: No - RENAL Hx Chronic Kidney Disease: Yes - ENDOCRINE/METABOLIC Hx Diabetes Mellitus Type 2: Yes Hx Hyperthyroidism: Yes - HEMATOLOGICAL/ONCOLOGICAL Hx AIDS: No Hx Human Immunodeficiency Virus (HIV): No - INTEGUMENTARY Hx Dermatological Problems: No - MUSCULOSKELETAL/RHEUMATOLOGICAL Hx Falls: No - GASTROINTESTINAL Hx Gastrointestinal Disorders: No - GENITOURINARY/GYNECOLOGICAL Hx Genitourinary Disorders: No - PSYCHIATRIC Hx Substance Use: No - SURGICAL HISTORY Hx Appendectomy: Yes - ANESTHESIA Hx Anesthesia: Yes Hx Anesthesia Reactions: No Hx Malignant Hyperthermia: No Meds Allergies/Adverse Reactions: Allergies Allergy/AdvReac Type Severity Reaction Status Date / Time No Known Allergies Allergy Verified 11/08/17 15:56 Physical Exam - Respiratory Exam Respiratory Exam: NORMAL BREATHING PATTERN - Cardiovascular Exam Cardiovascular Exam: REGULAR RHYTHM - GI/Abdominal Exam GI & Abdominal Exam: Normal Bowel Sounds Results - Vital Signs Recent Vital Signs: Last Vital Signs Temp 97.0 F L 11/08/17 17:12 Pulse 74 11/08/17 17:12 Resp 20 11/08/17 17:12 BP 120/49 L 11/08/17 19:38 Pulse Ox 96 11/08/17 17:12 Assessment & Plan - Assessment and Plan (Free Text) Assessment: Low ext edema with blisters- etiol? Improved Venous Insuff?? Infectious? Serratia G- Leg elevation ID Podiatry oral Abx CAD CHF Diastolic Stress test myocardial scar LAD LV fxn 43% Refusing cardiac cath Plavix Nitrates CHAITANYA B-Chi Hx COPD L Pleural effusion CT scan improvement Pulmonary Anemia etiol? repeat labs ASA d/c as outpt due to dec Hbg Stool for OB pending?? NIDDM Thyroid dx Endo - Date & Time Date: 11/08/17 Time: 22:22
[2017-11-09] MEDS: Desoximetasone 0.25% Cream(15 gm) TOP SCH ×2 (08:31→17:08)
[2017-11-09] MEDS: Enoxaparin 40 mg Syringe SC SCH (08:35)
[2017-11-09] MEDS: methIMAzole 5 MG TAB PO SCH (08:35)
[2017-11-09] MEDS: GlipiZIDE 2.5 mg SR Tab PO SCH (08:36)
--- NOTE | 2017-11-09 23:22 | CP.PCM.PN ---
Subjective - Date & Time of Evaluation Date of Evaluation: 11/09/17 Time of Evaluation: 23:19 - Subjective Subjective: Podiatry Progress Note - Dr. Briseno 77 y/o female seen and evaluated at bedside for bilateral leg swelling and drained blisters to left lower extremity. No acute events overnight. Patient seen sitting in bed, legs in dependent position. Dressings intact with CHAITANYA wraps to bilateral LE. Denies any pain to LE today. Offers no other complaints. Denies N/V/F/D/C/SOB/[place]/chest pain/dizziness. Objective - Vital Signs/Intake and Output Vital Signs (last 24 hours): Temp Pulse Resp BP Pulse Ox 97.3 F L 76 20 123/60 97 11/09/17 20:08 11/09/17 20:34 11/09/17 20:08 11/09/17 20:34 11/09/17 20:08 - Medications Medications: Current Medications Acetaminophen (Tylenol 325mg Tab) 650 mg PO Q4 PRN PRN Reason: Pain, Mild (1-3) Last Admin: 11/08/17 20:51 Dose: 650 mg Amoxicillin (Amoxil 500 Mg Cap) 500 mg PO Q8 [facility] PRN Reason: Protocol Last Admin: 11/09/17 17:07 Dose: 500 mg Clopidogrel Bisulfate (Plavix) 75 mg PO DAILY [facility] Last Admin: 11/09/17 08:35 Dose: 75 mg Desoximetasone (Topicort 0.25%) 1 ea TOP BID [facility] Last Admin: 11/09/17 17:08 Dose: Not Given Enoxaparin Sodium (Lovenox) 40 mg SC DAILY [facility] PRN Reason: Protocol Last Admin: 11/09/17 08:35 Dose: 40 mg Famotidine (Pepcid) 20 mg PO DAILY [facility] Last Admin: 11/09/17 08:35 Dose: 20 mg Furosemide (Lasix) 20 mg PO BID [facility] Last Admin: 11/09/17 17:07 Dose: 20 mg Glipizide (Glucotrol Xl) 2.5 mg PO DAILY [facility] Last Admin: 11/09/17 08:36 Dose: 2.5 mg Isosorbide Mononitrate (Imdur Er) 30 mg PO DAILY [facility] Last Admin: 11/09/17 08:35 Dose: 30 mg Methimazole (Tapazole) 5 mg PO DAILY [facility] Last Admin: 11/09/17 08:35 Dose: 5 mg Metoprolol Tartrate (Lopressor) 25 mg PO Q12 [facility] Last Admin: 11/09/17 20:34 Dose: 25 mg Moxifloxacin HCl (Avelox) 400 mg PO DAILY [facility] PRN Reason: Protocol Last Admin: 11/09/17 08:35 Dose: 400 mg - Constitutional Appears: Well, Non-toxic, No Acute Distress - Extremities Exam Additional comments: Vasc: DP pulses weakly palpable 1/4 b/l. Nonpalpable PT pulses secondary to edema, +2 pitting edema to bilateral LE, TG wnl, CFT < 4 sec to all digits Neuro: grossly diminished Derm: lanced bullae noted to left anterior leg with mild serous drainage, slight discoloration, no malodor, no fluctuance. Lanced bullae #2 noted to dorsal forefoot filled with serous fluid refilling part of bullae, no ascending cellulitis, no acute clinical signs of infection. Deroofed bullae with weeping noted to anterior right leg, no periwound erythema noted Ortho: no tenderness to palpation of posterior right leg, no tenderness to palpation of posterior left leg - Neurological Exam Neurological Exam: Alert, Awake, Oriented x3 - Psychiatric Exam Psychiatric exam: Normal Affect, Normal Mood Assessment and Plan - Assessment and Plan (Free Text) Assessment: 77 y/o female seen at bedside for bilateral lower extremity swelling with bullae secondary to CHF, improving Plan: Patient seen and evaluated with attending, Dr. Briseno at bedside Afebrile Bilateral venous duplex negative for DVT Left leg WCx: serratia marcescens, klebsiella oxytoca, enterococcus faecalis Continue local wound care - Durafiber, Allevyn pads, CHAITANYA Bilateral lower extremity improving -Pitting edema secondary to CHF -Encourage LE elevation, minimize legs in dependent position Wounds appear stable at this time Continue abx per ID - patient refusing further IV Rx, continue Amoxicillin 500mg PO q8, Moxiflocacin 400mg PO QD Podiatry will continue to follow while in house
[2017-11-10] MEDS: Enoxaparin 40 mg Syringe SC SCH (08:06)
[2017-11-10] MEDS: Desoximetasone 0.25% Cream(15 gm) TOP SCH ×2 (08:07→16:28)
[2017-11-10] MEDS: GlipiZIDE 2.5 mg SR Tab PO SCH (08:08)
[2017-11-10] MEDS: methIMAzole 5 MG TAB PO SCH (08:08)
--- NOTE | 2017-11-10 09:29 | CP.PCM.PN ---
Subjective - Date & Time of Evaluation Date of Evaluation: 11/10/17 Time of Evaluation: 22:22 - Subjective Subjective: Still with open wounds on low ext Dec mobility Objective - Vital Signs/Intake and Output Vital Signs (last 24 hours): Temp Pulse Resp BP Pulse Ox 97.0 F L 73 20 133/61 95 11/10/17 08:01 11/10/17 08:08 11/10/17 08:01 11/10/17 08:08 11/10/17 08:01 - Medications Medications: Current Medications Acetaminophen (Tylenol 325mg Tab) 650 mg PO Q4 [facility] PRN Reason: Pain, Mild (1-3) Last Admin: 11/08/17 20:51 Dose: 650 mg Amoxicillin (Amoxil 500 Mg Cap) 500 mg PO Q8 [facility] PRN Reason: Protocol Last Admin: 11/10/17 08:08 Dose: 500 mg Clopidogrel Bisulfate (Plavix) 75 mg PO DAILY [facility] Last Admin: 11/10/17 08:08 Dose: 75 mg Desoximetasone (Topicort 0.25%) 1 ea TOP BID [facility] Last Admin: 11/10/17 08:07 Dose: 1 u Enoxaparin Sodium (Lovenox) 40 mg SC DAILY [facility] PRN Reason: Protocol Last Admin: 11/10/17 08:06 Dose: 40 mg Famotidine (Pepcid) 20 mg PO DAILY [facility] Last Admin: 11/10/17 08:08 Dose: 20 mg Furosemide (Lasix) 20 mg PO BID [facility] Last Admin: 11/10/17 08:08 Dose: 20 mg Glipizide (Glucotrol Xl) 2.5 mg PO DAILY [facility] Last Admin: 11/10/17 08:08 Dose: 2.5 mg Isosorbide Mononitrate (Imdur Er) 30 mg PO DAILY [facility] Last Admin: 11/10/17 08:08 Dose: 30 mg Methimazole (Tapazole) 5 mg PO DAILY [facility] Last Admin: 11/10/17 08:08 Dose: 5 mg Metoprolol Tartrate (Lopressor) 25 mg PO Q12 [facility] Last Admin: 11/10/17 08:08 Dose: 25 mg Moxifloxacin HCl (Avelox) 400 mg PO DAILY [facility] PRN Reason: Protocol Last Admin: 11/10/17 08:08 Dose: 400 mg - Respiratory Exam Respiratory Exam: NORMAL BREATHING PATTERN - Cardiovascular Exam Cardiovascular Exam: REGULAR RHYTHM - GI/Abdominal Exam GI & Abdominal Exam: Normal Bowel Sounds Assessment and Plan - Assessment and Plan (Free Text) Assessment: Low ext edema with blisters- etiol? Improved Venous Insuff?? Infectious? Serratia G- Leg elevation ID Podiatry oral Abx CAD CHF Diastolic Stress test myocardial scar LAD LV fxn 43% Refusing cardiac cath Plavix Nitrates CHAITANYA B-Chi Hx COPD L Pleural effusion CT scan improvement Pulmonary Anemia etiol? repeat labs ASA d/c as outpt due to dec Hbg Stool for OB pending?? NIDDM Thyroid dx Endo
--- NOTE | 2017-11-10 12:58 | CP.PCM.CON ---
History of Present Illness - History of Present Illness History of Present Illness: 77 y/o female seen and evaluated at bedside for bilateral leg swelling and drained blisters to left lower extremity. No acute events overnight. Patient seen sitting in bed, legs in dependent position. Dressings intact with CHAITANYA wraps to bilateral LE. Denies any pain to LE today. Offers no other complaints. Denies N/V/F/D/C/SOB/HILTON/chest pain/dizziness. Review of Systems - Review of Systems All systems: reviewed and no additional remarkable complaints except - Constitutional Constitutional: As Per HPI - EENT Eyes: absent: As Per HPI, Blind Spots, Blurred Vision, Change in Vision, Decreased Night Vision, Diplopia, Discharge, Dry Eye, Exophthalmos, Floaters, Irritation, Itchy Eyes, Loss of Peripheral Vision, Pain, Photophobia, Requires Corrective Lenses, Sees Flashes, Spots in Vision, Tunnel Vision, Other Visual Disturbances, Loss of Vision, Other Ears: absent: As Per HPI, Decreased Hearing, Ear Discharge, Ear Pain, Tinnitus, Abnormal Hearing, Disequilibrium, Dizziness, Other Nose/Mouth/Throat: absent: As Per HPI, Epistaxis, Nasal Congestion, Nasal Discharge, Nasal Obstruction, Nasal Trauma, Nose Pain, Post Nasal Drip, Sinus Pain, Sinus Pressure, Bleeding Gums, Change in Voice, Dental Pain, Dry Mouth, Dysphagia, Halitosis, Hoarsness, Lip Swelling, Mouth Lesions, Mouth Pain, Odynophagia, Sore Throat, Throat Swelling, Tongue Swelling, Facial Pain, Neck Pain, Neck Mass, Other - Breasts Breasts: absent: As Per HPI, Change in Shape, Mass, Pain, Nipple Discharge, Nipple Inversion, Skin Changes, Swelling, Other - Cardiovascular Cardiovascular: As Per HPI - Respiratory Respiratory: As Per HPI, Dyspnea on Exertion - Gastrointestinal Gastrointestinal: absent: As Per HPI, Abdominal Pain, Belching, Bloating, Change in Bowel Habits, Change in Stool Character, Coffee Ground Emesis, Constipation, Cramping, Diarrhea, Dyspepsia, Dysphagia, Early Satiety, Excessive Flatus, Fecal Incontinence, Heartburn, Hematemesis, Hematochezia, Loose Stools, Melena, Nausea, Odynophagia, Temesmus, Vomiting, Other - Genitourinary Genitourinary: absent: As Per HPI, Change in Urinary Stream, Difficulty Urinating, Dysuria, Flank Pain, Hematuria, Pyuria, Nocturia, Urinary Incontinence, Urinary Frequency, Urinary Hesitance, Urinary Urgency, Voiding Freq/Small Amts, Freq UTI, Hx Renal/Bladder Calculi, Hx /Renal Surgery, Bladder Distension, Other - Reproductive: Female Reproductive:Female: absent: As Per HPI, Amenorrhea, Amenorrhea/ Control, Currently Menstual, Cycle <21 Days, Cycle >35 Days, Cycle Variable, Menses 1-7 Days, Menses >/= 8 Days, Menses Variable, Cycle > 4 Weeks Between, No Menses for 6 Months, Heavy Menses, Light Menses, Normal Menses, Spotting Between Cycles , S/P Hysterectomy, Menopausal, Post Menopausal, Premenarche, Abnormal Vaginal Bleeding, Dysmenorrhea, Dyspareunia, Genital Lesions, Genital Pruritis, Pelvic Pain, Prolapse Symptoms, Sexual Dysfunction, Vaginal Discharge, Vaginal Dryness , Vaginal Odor, Vaginal Pruritis, Other - Menstruation Menstruation: absent: As Per HPI, Amenorrhea, Amenorrhea/ Control, Currently Menstual, Cycle <21 Days, Cycle >35 Days, Cycle Variable, Menses 1-7 Days, Menses >/= 8 Days, Menses Variable, Cycle > 4 Weeks Between, No Menses for 6 Months, Heavy Menses, Light Menses, Normal Menses, Spotting Between Cycles , S/P Hysterectomy, Menopausal, Post Menopausal, Premenarche, Abnormal Vaginal Bleeding, Dysmenorrhea, Other - Musculoskeletal Musculoskeletal: As Per HPI - Integumentary Integumentary: As Per HPI, Skin Pain, Wounds - Neurological Neurological: absent: Abnormal Gait, Abnormal Hearing, Abnormal Movements, Abnormal Speech, Behavioral Changes, Burning Sensations, Confusion, Convulsions , Disequilibrium, Dizziness, Numbness, Focal Weakness, Frequent Falls, Headaches , Lack of Coordination, Loss of Vision, Memory Loss, Paresthesias, Radicular Pain, Restless Legs, Sensory Deficit, Syncope, Tingling, Tremor, Vertigo, Weakness, Other Visual Disturbances, Other - Psychiatric Psychiatric: absent: As Per HPI, Abnormal Sleep Pattern, Anhedonia, Anxiety, Auditory Hallucinations, Behavioral Changes, Change in Appetite, Change in Libido, Confusion, Depression, Difficulty Concentrating, Hallucinations, Homicidal Ideation, Hopelessness, Irritability, Memory Loss, Mood Swings, Panic Attacks, Paranoia, Suicidal Ideation, Visual Hallucinations, Tactile Hallucinations, Other - Endocrine Endocrine: absent: As Per HPI, Change in Body Appearance, Change in Libido, Cold Intolorance, Deepening of Voice, Excessive Sweating, Fatigue, Flushing, Heat Intolorance, Increase in Ring/Shoe/Hat Size, Palpitations, Polydipsia, Polyphagia, Polyuria, Other - Hematologic/Lymphatic Hematologic: absent: As Per HPI, Easy Bleeding, Easy Bruising, Lymphadenopathy, Other Past Patient History - Infectious Disease Hx of Infectious Diseases: None - Past Medical History & Family History Past Medical History?: Yes - Past Social History Smoking Status: Former Smoker - CARDIAC Hx Congestive Heart Failure: Yes Hx Hypercholesterolemia: Yes Hx Hypertension: Yes Hx Peripheral Edema: Yes - PULMONARY Hx Bronchitis: Yes Hx Pneumonia: Yes - NEUROLOGICAL Hx Neurological Disorder: No - HEENT Hx HEENT Problems: No - RENAL Hx Chronic Kidney Disease: Yes - ENDOCRINE/METABOLIC Hx Diabetes Mellitus Type 2: Yes Hx Hyperthyroidism: Yes - HEMATOLOGICAL/ONCOLOGICAL Hx AIDS: No Hx Human Immunodeficiency Virus (HIV): No - INTEGUMENTARY Hx Dermatological Problems: No - MUSCULOSKELETAL/RHEUMATOLOGICAL Hx Falls: No - GASTROINTESTINAL Hx Gastrointestinal Disorders: No - GENITOURINARY/GYNECOLOGICAL Hx Genitourinary Disorders: No - PSYCHIATRIC Hx Substance Use: No - SURGICAL HISTORY Hx Appendectomy: Yes - ANESTHESIA Hx Anesthesia: Yes Hx Anesthesia Reactions: No Hx Malignant Hyperthermia: No Meds Allergies/Adverse Reactions: Allergies Allergy/AdvReac Type Severity Reaction Status Date / Time No Known Allergies Allergy Verified 11/08/17 15:56 - Medications Medications: Current Medications Acetaminophen (Tylenol 325mg Tab) 650 mg PO Q4 PRN PRN Reason: Pain, Mild (1-3) Last Admin: 11/08/17 20:51 Dose: 650 mg Amoxicillin (Amoxil 500 Mg Cap) 500 mg PO Q8 [facility] PRN Reason: Protocol Last Admin: 11/10/17 08:08 Dose: 500 mg Clopidogrel Bisulfate (Plavix) 75 mg PO DAILY [facility] Last Admin: 11/10/17 08:08 Dose: 75 mg Desoximetasone (Topicort 0.25%) 1 ea TOP BID [facility] Last Admin: 11/10/17 08:07 Dose: 1 u Enoxaparin Sodium (Lovenox) 40 mg SC DAILY [facility] PRN Reason: Protocol Last Admin: 11/10/17 08:06 Dose: 40 mg Famotidine (Pepcid) 20 mg PO DAILY [facility] Last Admin: 11/10/17 08:08 Dose: 20 mg Furosemide (Lasix) 20 mg PO BID [facility] Last Admin: 11/10/17 08:08 Dose: 20 mg Glipizide (Glucotrol Xl) 2.5 mg PO DAILY [facility] Last Admin: 11/10/17 08:08 Dose: 2.5 mg Isosorbide Mononitrate (Imdur Er) 30 mg PO DAILY [facility] Last Admin: 11/10/17 08:08 Dose: 30 mg Methimazole (Tapazole) 5 mg PO DAILY [facility] Last Admin: 11/10/17 08:08 Dose: 5 mg Metoprolol Tartrate (Lopressor) 25 mg PO Q12 [facility] Last Admin: 11/10/17 08:08 Dose: 25 mg Moxifloxacin HCl (Avelox) 400 mg PO DAILY [facility] PRN Reason: Protocol Last Admin: 11/10/17 08:08 Dose: 400 mg Physical Exam - Constitutional Appears: Non-toxic, Chronically Ill - Head Exam Head Exam: NORMOCEPHALIC - Eye Exam Eye Exam: PERRL. absent: Scleral icterus - ENT Exam ENT Exam: Mucous Membranes Dry - Neck Exam Neck exam: Negative for: Lymphadenopathy - Respiratory Exam Respiratory Exam: Decreased Breath Sounds - Cardiovascular Exam Cardiovascular Exam: REGULAR RHYTHM - GI/Abdominal Exam GI & Abdominal Exam: Diminished Bowel Sounds, Soft. absent: Tenderness - Rectal Exam Rectal Exam: Deferred - Exam Exam: NORMAL INSPECTION - Extremities Exam Extremities exam: Positive for: pedal edema Additional comments: Vasc: DP pulses weakly palpable 1/4 b/l. Nonpalpable PT pulses secondary to edema, +2 pitting edema to bilateral LE, TG wnl, CFT < 4 sec to all digits Neuro: grossly diminished Derm: lanced bullae noted to left anterior leg with mild serous drainage, slight discoloration, no malodor, no fluctuance. Lanced bullae #2 noted to dorsal forefoot filled with serous fluid refilling part of bullae, no ascending cellulitis, no acute clinical signs of infection. Deroofed bullae with weeping noted to anterior right leg, no periwound erythema noted Ortho: no tenderness to palpation of posterior right leg, no tenderness to palpation of posterior left leg - Back Exam Back exam: absent: CVA tenderness (L), CVA tenderness (R) - Neurological Exam Neurological exam: Alert, CN II-XII Intact, Oriented x3, Reflexes Normal - Psychiatric Exam Psychiatric exam: Depressed - Skin Skin Exam: Dry Results - Vital Signs Recent Vital Signs: Last Vital Signs Temp 97.0 F L 11/10/17 08:01 Pulse 73 11/10/17 08:08 Resp 20 11/10/17 08:01 BP 133/61 11/10/17 08:08 Pulse Ox 95 11/10/17 08:01 - Labs Labs: Laboratory Results - last 24 hr 11/09/17 11/09/17 11/09/17 11:00 16:19 20:56 POC Glucose (mg/dL) 158 H 146 H 152 H 11/10/17 11/10/17 05:47 11:26 POC Glucose (mg/dL) 94 131 H Assessment & Plan (1) Stasis dermatitis of left lower extremity with venous ulcer due to chronic peripheral venous hypertension Status: Acute (2) Atelectasis, bilateral Status: Acute Priority: High (3) CHF exacerbation Status: Acute (4) Edema of both lower extremities due to peripheral venous insufficiency Status: Acute Priority: High
--- NOTE | 2017-11-10 15:49 | CP.PCM.PN ---
Subjective - Date & Time of Evaluation Date of Evaluation: 11/10/17 Time of Evaluation: 13:47 - Subjective Subjective: Podiatry Progress Note - Dr. Briseno 77 y/o female seen and evaluated at bedside for bilateral leg swelling and draining blisters to left lower extremity. No acute events overnight. Patient seen sitting in bed, legs in dependent position. Dressings intact with CHAITANYA wraps to bilateral LE. Denies any pain to LE today. Offers no other complaints. Denies N/V/F/D/C/SOB/HILTON/chest pain/dizziness. Objective - Vital Signs/Intake and Output Vital Signs (last 24 hours): Temp Pulse Resp BP Pulse Ox 97.0 F L 73 20 133/61 95 11/10/17 08:01 11/10/17 08:08 11/10/17 08:01 11/10/17 08:08 11/10/17 08:01 - Medications Medications: Current Medications Acetaminophen (Tylenol 325mg Tab) 650 mg PO Q4 PRN PRN Reason: Pain, Mild (1-3) Last Admin: 11/10/17 14:34 Dose: 650 mg Amoxicillin (Amoxil 500 Mg Cap) 500 mg PO Q8 [facility] PRN Reason: Protocol Last Admin: 11/10/17 08:08 Dose: 500 mg Clopidogrel Bisulfate (Plavix) 75 mg PO DAILY [facility] Last Admin: 11/10/17 08:08 Dose: 75 mg Desoximetasone (Topicort 0.25%) 1 ea TOP BID [facility] Last Admin: 11/10/17 08:07 Dose: 1 u Enoxaparin Sodium (Lovenox) 40 mg SC DAILY [facility] PRN Reason: Protocol Last Admin: 11/10/17 08:06 Dose: 40 mg Famotidine (Pepcid) 20 mg PO DAILY [facility] Last Admin: 11/10/17 08:08 Dose: 20 mg Furosemide (Lasix) 20 mg PO BID [facility] Last Admin: 11/10/17 08:08 Dose: 20 mg Glipizide (Glucotrol Xl) 2.5 mg PO DAILY [facility] Last Admin: 11/10/17 08:08 Dose: 2.5 mg Isosorbide Mononitrate (Imdur Er) 30 mg PO DAILY [facility] Last Admin: 11/10/17 08:08 Dose: 30 mg Methimazole (Tapazole) 5 mg PO DAILY [facility] Last Admin: 11/10/17 08:08 Dose: 5 mg Metoprolol Tartrate (Lopressor) 25 mg PO Q12 [facility] Last Admin: 11/10/17 08:08 Dose: 25 mg Moxifloxacin HCl (Avelox) 400 mg PO DAILY [facility] PRN Reason: Protocol Last Admin: 11/10/17 08:08 Dose: 400 mg - Constitutional Appears: Well, Non-toxic, No Acute Distress - Extremities Exam Additional comments: Patient is seen with legs in dependent position, not wearing her compression dressings that were placed on her yesterday Vasc: DP pulses weakly palpable 1/4 b/l. Nonpalpable PT pulses secondary to edema, +2 pitting edema to bilateral LE, TG wnl, CFT < 4 sec to all digits Neuro: grossly diminished Derm: lanced bullae noted to left anterior leg with mild serous drainage, slight discoloration, no malodor, no fluctuance. Lanced bullae #2 noted to dorsal forefoot filled with serous fluid refilling part of bullae, no ascending cellulitis, no acute clinical signs of infection. Deroofed bullae with weeping noted to anterior right leg, no periwound erythema noted. No clinical signs of infection to any bullae sites Ortho: no tenderness to palpation of posterior right leg, no tenderness to palpation of posterior left leg - Neurological Exam Neurological Exam: Alert, Awake, Oriented x3 - Psychiatric Exam Psychiatric exam: Normal Affect, Normal Mood Assessment and Plan - Assessment and Plan (Free Text) Assessment: 77 y/o female seen at bedside for bilateral lower extremity swelling with bullae secondary to CHF, improving Plan: Patient seen and evaluated with attending, Dr. Briseno at bedside Afebrile Bilateral venous duplex negative for DVT Left leg WCx: serratia marcescens, klebsiella oxytoca, enterococcus faecalis Continue local wound care - Durafiber, Allevyn pads, CHAITANYA Bilateral lower extremity improving -Pitting edema secondary to CHF -Encourage LE elevation, minimize legs in dependent position Continue abx per ID - patient refusing further IV Rx, continue Amoxicillin 500mg PO q8, Moxiflocacin 400mg PO QD Podiatry will continue to follow while in house
[2017-11-11 07:14] LABS: HEMOGLOBIN 8.9 g/dL (12.0-16.0); MEAN CELL VOLUME 85.6 fl (81.0-99.0); MEAN CORPUSCULAR HEMOGLOBIN 27.1 pg (27.0-31.0); MEAN CORPUSCULAR HGB CONC 31.6 g/dL (33.0-37.0); RBC 3.29 Mil/uL (3.80-5.20); RED CELL DISTRIBUTION WIDTH 18.4 % (11.5-14.5); WHITE BLOOD COUNT 4.7 K/uL (4.8-10.8)
[2017-11-11] MEDS: GlipiZIDE 2.5 mg SR Tab PO SCH (08:00)
[2017-11-11] MEDS: methIMAzole 5 MG TAB PO SCH (08:00)
[2017-11-11] MEDS: Enoxaparin 40 mg Syringe SC SCH (08:01)
[2017-11-11] MEDS: Desoximetasone 0.25% Cream(15 gm) TOP SCH ×2 (08:01→16:46)
[2017-11-11 08:06] LABS: CALCIUM 9.4 mg/dL (8.4-10.2)
--- NOTE | 2017-11-11 10:02 | CP.PCM.CON ---
History of Present Illness - History of Present Illness History of Present Illness: THE PATIENT IS A 77 YEAR OLD FEMALE WITH A HISTORY OF CAD, DIASTOLIC CHF IN THE PAST, RECURRENT PLEURAL EFFUSIONS, TYPE 2 DM AND HYPERTHYROIDISM. SHE ALSO HAS LOWER EXTREMITY VENOUS INSUFFICIENCY WITH ULCERIZATION AND DERMATITIS FOR WHICH SHE WAS RECENTLY ADMITTED TO . SHE WAS NOW DISCHARGED TO TCU AND CARDIOLOGY WAS ASKED TO SEE HER. SHE DOESN'T GET CHEST PAIN BUT HAD MILDLY ELEVATED TROPONINS IN THE PAST. A PHARMACOLOGICAL STRESS TEST DONE LAST WEEK SHOWED MYOCARDIAL SCARRING AND IN MY OPINION SHE ALSO HAD MILD ISCHEMIA. A CARDIAC CATHETERIZATION WAS RECOMMENDED BUT SHE DECLINED IT AND SHE IS BEING TREATED WITH CONSERVATIVE MEDICAL TREATMENT. Past Patient History - Infectious Disease Hx of Infectious Diseases: None - Past Medical History & Family History Past Medical History?: Yes - Past Social History Smoking Status: Former Smoker - CARDIAC Hx Congestive Heart Failure: Yes Hx Hypercholesterolemia: Yes Hx Hypertension: Yes Hx Peripheral Edema: Yes - PULMONARY Hx Bronchitis: Yes Hx Pneumonia: Yes - NEUROLOGICAL Hx Neurological Disorder: No - HEENT Hx HEENT Problems: No - RENAL Hx Chronic Kidney Disease: Yes - ENDOCRINE/METABOLIC Hx Diabetes Mellitus Type 2: Yes Hx Hyperthyroidism: Yes - HEMATOLOGICAL/ONCOLOGICAL Hx AIDS: No Hx Human Immunodeficiency Virus (HIV): No - INTEGUMENTARY Hx Dermatological Problems: No - MUSCULOSKELETAL/RHEUMATOLOGICAL Hx Falls: No - GASTROINTESTINAL Hx Gastrointestinal Disorders: No - GENITOURINARY/GYNECOLOGICAL Hx Genitourinary Disorders: No - PSYCHIATRIC Hx Substance Use: No - SURGICAL HISTORY Hx Appendectomy: Yes - ANESTHESIA Hx Anesthesia: Yes Hx Anesthesia Reactions: No Hx Malignant Hyperthermia: No Meds Allergies/Adverse Reactions: Allergies Allergy/AdvReac Type Severity Reaction Status Date / Time No Known Allergies Allergy Verified 11/08/17 15:56 - Medications Medications: Current Medications Acetaminophen (Tylenol 325mg Tab) 650 mg PO Q4 PRN PRN Reason: Pain, Mild (1-3) Last Admin: 11/11/17 00:03 Dose: 650 mg Amoxicillin (Amoxil 500 Mg Cap) 500 mg PO Q8 [facility] PRN Reason: Protocol Last Admin: 11/11/17 08:00 Dose: 500 mg Clopidogrel Bisulfate (Plavix) 75 mg PO DAILY [facility] Last Admin: 11/11/17 08:00 Dose: 75 mg Desoximetasone (Topicort 0.25%) 1 ea TOP BID [facility] Last Admin: 11/11/17 08:01 Dose: 1 u Enoxaparin Sodium (Lovenox) 40 mg SC DAILY [facility] PRN Reason: Protocol Last Admin: 11/11/17 08:01 Dose: 40 mg Famotidine (Pepcid) 20 mg PO DAILY [facility] Last Admin: 11/11/17 08:00 Dose: 20 mg Furosemide (Lasix) 20 mg PO BID [facility] Last Admin: 11/11/17 08:00 Dose: 20 mg Glipizide (Glucotrol Xl) 2.5 mg PO DAILY [facility] Last Admin: 11/11/17 08:00 Dose: 2.5 mg Isosorbide Mononitrate (Imdur Er) 30 mg PO DAILY [facility] Last Admin: 11/11/17 08:00 Dose: 30 mg Methimazole (Tapazole) 5 mg PO DAILY [facility] Last Admin: 11/11/17 08:00 Dose: 5 mg Metoprolol Tartrate (Lopressor) 25 mg PO Q12 [facility] Last Admin: 11/11/17 08:00 Dose: 25 mg Moxifloxacin HCl (Avelox) 400 mg PO DAILY [facility] PRN Reason: Protocol Last Admin: 11/11/17 08:00 Dose: 400 mg Physical Exam - Respiratory Exam Respiratory Exam: Clear to Auscultation Bilateral - Cardiovascular Exam Cardiovascular Exam: REGULAR RHYTHM, +S1, +S2 - Extremities Exam Additional comments: DECREASED IN EDEMA BLISTERS ARE CLEARING UP Results - Vital Signs Recent Vital Signs: Last Vital Signs Temp 98.0 F 11/11/17 07:46 Pulse 69 11/11/17 08:00 Resp 20 11/11/17 07:46 BP 113/58 L 11/11/17 08:00 Pulse Ox 99 11/11/17 07:46 - Labs Result Diagrams: 11/11/17 06:15 11/11/17 06:15 Labs: Laboratory Results - last 24 hr 11/10/17 11/10/17 11/11/17 11:26 16:00 06:15 WBC 4.7 L RBC 3.29 L Hgb 8.9 L Hct 28.1 L MCV 85.6 MCH 27.1 MCHC 31.6 L RDW 18.4 H Plt Count 291 Sodium Potassium Chloride Carbon Dioxide Anion Gap BUN Creatinine Est GFR ( Amer) Est GFR (Non-Af Amer) POC Glucose (mg/dL) 131 H 109 Random Glucose Calcium TSH 3rd Generation 11/11/17 06:15 WBC RBC Hgb Hct MCV MCH MCHC RDW Plt Count Sodium 144 Potassium 4.6 Chloride 104 Carbon Dioxide 24 Anion Gap 21 H BUN 46 H Creatinine 1.2 Est GFR ( Amer) 52 Est GFR (Non-Af Amer) 43 POC Glucose (mg/dL) Random Glucose 111 H Calcium 9.4 TSH 3rd Generation 3.74 Assessment & Plan - Assessment and Plan (Free Text) Assessment: CAD TYPE 2 DM HYPERTHYROIDISM LOWER EXTREMITY VENOUS INSUFFICIENCY WITH EDEMA AND ULCERIZATION WITH DERMITITIS Plan: CONTINUE ANTIBIOTICS, FUROSEMIDE, METOPROLOL, NITRATES, CLOPIDOGREL, GLIPIZIDE AND TAPAZOLE CONTINUE SUBACUTE REHAB
--- NOTE | 2017-11-11 11:26 | CP.PCM.CON ---
History of Present Illness - History of Present Illness History of Present Illness: This 77 year old female was initially seen on the acute medical floor. She was admitted with bilateral lower extremity edema which developed blistering. She has had bilateral pleural effusions in the past, but these have responded to medical therapy. She does not complain of shortness of breath or cough. There is no orthopnea or paroxysmal nocturnal dyspnea. No fever, no hemoptysis. She does have venous insufficiency of the lower exrtremities and has developed ulcerations which are being managed by Podiatry. Past Patient History - Infectious Disease Hx of Infectious Diseases: None - Past Medical History & Family History Past Medical History?: Yes - Past Social History Smoking Status: Former Smoker Chewing Tobacco Use: No Cigar Use: No Alcohol: Social Drugs: Denies Home Situation {Lives}: Alone - CARDIAC Hx Congestive Heart Failure: Yes Hx Hypercholesterolemia: Yes Hx Hypertension: Yes Hx Peripheral Edema: Yes - PULMONARY Hx Bronchitis: Yes Hx Pneumonia: Yes - NEUROLOGICAL Hx Neurological Disorder: No - HEENT Hx HEENT Problems: No - RENAL Hx Chronic Kidney Disease: Yes - ENDOCRINE/METABOLIC Hx Diabetes Mellitus Type 2: Yes Hx Hyperthyroidism: Yes - HEMATOLOGICAL/ONCOLOGICAL Hx AIDS: No Hx Human Immunodeficiency Virus (HIV): No - INTEGUMENTARY Hx Dermatological Problems: No - MUSCULOSKELETAL/RHEUMATOLOGICAL Hx Falls: No - GASTROINTESTINAL Hx Gastrointestinal Disorders: No - GENITOURINARY/GYNECOLOGICAL Hx Genitourinary Disorders: No - PSYCHIATRIC Hx Substance Use: No - SURGICAL HISTORY Hx Appendectomy: Yes - ANESTHESIA Hx Anesthesia: Yes Hx Anesthesia Reactions: No Hx Malignant Hyperthermia: No Meds Allergies/Adverse Reactions: Allergies Allergy/AdvReac Type Severity Reaction Status Date / Time No Known Allergies Allergy Verified 11/08/17 15:56 - Medications Medications: Current Medications Acetaminophen (Tylenol 325mg Tab) 650 mg PO Q4 PRN PRN Reason: Pain, Mild (1-3) Last Admin: 11/11/17 00:03 Dose: 650 mg Amoxicillin (Amoxil 500 Mg Cap) 500 mg PO Q8 [facility] PRN Reason: Protocol Last Admin: 11/11/17 08:00 Dose: 500 mg Clopidogrel Bisulfate (Plavix) 75 mg PO DAILY [facility] Last Admin: 11/11/17 08:00 Dose: 75 mg Desoximetasone (Topicort 0.25%) 1 ea TOP BID [facility] Last Admin: 11/11/17 08:01 Dose: 1 u Enoxaparin Sodium (Lovenox) 40 mg SC DAILY [facility] PRN Reason: Protocol Last Admin: 11/11/17 08:01 Dose: 40 mg Famotidine (Pepcid) 20 mg PO DAILY [facility] Last Admin: 11/11/17 08:00 Dose: 20 mg Furosemide (Lasix) 20 mg PO BID [facility] Last Admin: 11/11/17 08:00 Dose: 20 mg Glipizide (Glucotrol Xl) 2.5 mg PO DAILY [facility] Last Admin: 11/11/17 08:00 Dose: 2.5 mg Isosorbide Mononitrate (Imdur Er) 30 mg PO DAILY [facility] Last Admin: 11/11/17 08:00 Dose: 30 mg Methimazole (Tapazole) 5 mg PO DAILY [facility] Last Admin: 11/11/17 08:00 Dose: 5 mg Metoprolol Tartrate (Lopressor) 25 mg PO Q12 [facility] Last Admin: 11/11/17 08:00 Dose: 25 mg Moxifloxacin HCl (Avelox) 400 mg PO DAILY [facility] PRN Reason: Protocol Last Admin: 11/11/17 08:00 Dose: 400 mg Physical Exam - Additional Findings Additional findings: Well nourished, well developed female in no acute distress. Dependant edema is present in both LE's, L>R with varicose veins present. Clean dressings are applied to both lower extremities where there had been blisters which resulted in open wounds. Edema remains ++ in both LE's extending up to the infra-patellar area. No cyanosis. Neck is supple and trachea midline. No dullness on chest percussion, equal expansion. Breath sounds are diminished bilaterally with some occasional rhonchi. No audible wheezes or bronchial breath sounds. Rare dry to medium rales in the lower lobes. Heart sounds are distant, rhythm is regulr. Abdomen is soft with normal bowel sounds. Results - Vital Signs Recent Vital Signs: Last Vital Signs Temp 98.0 F 11/11/17 07:46 Pulse 69 11/11/17 08:00 Resp 20 11/11/17 07:46 BP 113/58 L 11/11/17 08:00 Pulse Ox 99 11/11/17 07:46 - Labs Result Diagrams: 11/14/17 05:54 03/22/18 05:54 Labs: Laboratory Results - last 24 hr 11/10/17 11/10/17 11/11/17 11:26 16:00 05:19 WBC RBC Hgb Hct MCV MCH MCHC RDW Plt Count Sodium Potassium Chloride Carbon Dioxide Anion Gap BUN Creatinine Est GFR ( Amer) Est GFR (Non-Af Amer) POC Glucose (mg/dL) 131 H 109 121 H Random Glucose Calcium TSH 3rd Generation 11/11/17 11/11/17 06:15 06:15 WBC 4.7 L RBC 3.29 L Hgb 8.9 L Hct 28.1 L MCV 85.6 MCH 27.1 MCHC 31.6 L RDW 18.4 H Plt Count 291 Sodium 144 Potassium 4.6 Chloride 104 Carbon Dioxide 24 Anion Gap 21 H BUN 46 H Creatinine 1.2 Est GFR ( Amer) 52 Est GFR (Non-Af Amer) 43 POC Glucose (mg/dL) Random Glucose 111 H Calcium 9.4 TSH 3rd Generation 3.74 Assessment & Plan (1) 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 Priority: High - Date & Time Date: 11/11/17 Time: 11:27
[2017-11-11 17:39] LABS: IRON 40 ug/dL (37-170)
[2017-11-11 17:48] LABS: % IRON SATURATION 9 % (20-55); TOTAL IRON BINDING CAPACITY 436 ug/dL (250-450)
[2017-11-11 18:16] LABS: FERRITIN 67.4 ng/Ml (11.1-264.0)
--- NOTE | 2017-11-11 20:19 | CP.PCM.PN ---
Subjective - Date & Time of Evaluation Date of Evaluation: 11/11/17 Time of Evaluation: 16:00 - Subjective Subjective: Podiatry Progress Note - Dr. Briseno 77 y/o female seen and evaluated at bedside for bilateral leg swelling and draining blisters to left lower extremity. Patient is seen sitting at bedside, in NAD, and AA0x3. Patient denies acute overnight events. Reports a burning pain to the LE. Offers no other complaints. Denies N/V/F/D/C/SOB/HILTON/chest pain/ dizziness. Objective - Vital Signs/Intake and Output Vital Signs (last 24 hours): Temp Pulse Resp BP Pulse Ox 98.0 F 69 20 125/50 L 99 11/11/17 07:46 11/11/17 08:00 11/11/17 07:46 11/11/17 16:46 11/11/17 07:46 - Medications Medications: Current Medications Acetaminophen (Tylenol 325mg Tab) 650 mg PO Q4 PRN PRN Reason: Pain, Mild (1-3) Last Admin: 11/11/17 00:03 Dose: 650 mg Amoxicillin (Amoxil 500 Mg Cap) 500 mg PO Q8 [facility] PRN Reason: Protocol Last Admin: 11/11/17 16:46 Dose: 500 mg Clopidogrel Bisulfate (Plavix) 75 mg PO DAILY [facility] Last Admin: 11/11/17 08:00 Dose: 75 mg Desoximetasone (Topicort 0.25%) 1 ea TOP BID [facility] Last Admin: 11/11/17 16:46 Dose: 1 u Enoxaparin Sodium (Lovenox) 40 mg SC DAILY [facility] PRN Reason: Protocol Last Admin: 11/11/17 08:01 Dose: 40 mg Famotidine (Pepcid) 20 mg PO DAILY [facility] Last Admin: 11/11/17 08:00 Dose: 20 mg Furosemide (Lasix) 20 mg PO BID [facility] Last Admin: 11/11/17 16:46 Dose: 20 mg Glipizide (Glucotrol Xl) 2.5 mg PO DAILY [facility] Last Admin: 11/11/17 08:00 Dose: 2.5 mg Isosorbide Mononitrate (Imdur Er) 30 mg PO DAILY [facility] Last Admin: 11/11/17 08:00 Dose: 30 mg Methimazole (Tapazole) 5 mg PO DAILY [facility] Last Admin: 11/11/17 08:00 Dose: 5 mg Metoprolol Tartrate (Lopressor) 25 mg PO Q12 [facility] Last Admin: 11/11/17 08:00 Dose: 25 mg Moxifloxacin HCl (Avelox) 400 mg PO DAILY [facility] PRN Reason: Protocol Last Admin: 11/11/17 08:00 Dose: 400 mg - Labs Labs: 11/11/17 06:15 11/11/17 06:15 - Constitutional Appears: Well, Non-toxic, No Acute Distress - Extremities Exam Extremities Exam: absent: Calf Tenderness Additional comments: Patient is seen with legs in dependent position at bedside with dressing off Vasc: DP pulses weakly palpable 1/4 b/l. Nonpalpable PT pulses secondary to edema, +2 pitting edema to bilateral LE, TG wnl, CFT < 4 sec to all digits Neuro: protective and gross sensation diminished Derm: lanced bullae noted to left anterior leg with mild serous drainage, slight discoloration, no malodor, no fluctuance. Lanced bullae #2 noted to dorsal forefoot filled with serous fluid refilling part of bullae, no ascending cellulitis, no acute clinical signs of infection. Deroofed bullae with weeping noted to anterior right leg, no periwound erythema noted. No clinical signs of infection to any bullae sites; very tiny blisters noted to the medial aspect of the upper leg Ortho: no tenderness to palpation of posterior right leg, no tenderness to palpation of posterior left leg - Neurological Exam Neurological Exam: Alert, Awake, Oriented x3 - Psychiatric Exam Psychiatric exam: Normal Affect, Normal Mood Assessment and Plan - Assessment and Plan (Free Text) Assessment: 77 y/o female seen at bedside for bilateral lower extremity swelling with bullae secondary to CHF, improving Plan: Patient seen and evaluated with attending, Dr. Briseno at bedside Afebrile Bilateral venous duplex negative for DVT Left leg WCx: serratia marcescens, klebsiella oxytoca, enterococcus faecalis Continue local wound care - Durafiber, Allevyn pads, CHAITANYA Bilateral lower extremity improving -Pitting edema secondary to CHF -Encourage LE elevation, minimize legs in dependent position -Encourage patient to keep dressing on and CHAITANYA on Continue abx per ID - patient refusing further IV Rx, continue Amoxicillin 500mg PO q8, Moxiflocacin 400mg PO QD Podiatry will continue to follow while in house
--- NOTE | 2017-11-11 20:50 | CP.PCM.PN ---
Subjective - Date & Time of Evaluation Date of Evaluation: 11/11/17 Time of Evaluation: 22:22 - Subjective Subjective: Above noted Hbg 8.9 No stool for OB??? Objective - Vital Signs/Intake and Output Vital Signs (last 24 hours): Temp Pulse Resp BP Pulse Ox 97.6 F 83 20 105/60 96 11/11/17 20:28 11/11/17 20:28 11/11/17 20:28 11/11/17 20:28 11/11/17 20:28 - Medications Medications: Current Medications Acetaminophen (Tylenol 325mg Tab) 650 mg PO Q4 PRN PRN Reason: Pain, Mild (1-3) Last Admin: 11/11/17 20:18 Dose: 650 mg Amoxicillin (Amoxil 500 Mg Cap) 500 mg PO Q8 [facility] PRN Reason: Protocol Last Admin: 11/11/17 16:46 Dose: 500 mg Clopidogrel Bisulfate (Plavix) 75 mg PO DAILY [facility] Last Admin: 11/11/17 08:00 Dose: 75 mg Desoximetasone (Topicort 0.25%) 1 ea TOP BID [facility] Last Admin: 11/11/17 16:46 Dose: 1 u Enoxaparin Sodium (Lovenox) 40 mg SC DAILY [facility] PRN Reason: Protocol Last Admin: 11/11/17 08:01 Dose: 40 mg Famotidine (Pepcid) 20 mg PO DAILY [facility] Last Admin: 11/11/17 08:00 Dose: 20 mg Furosemide (Lasix) 20 mg PO BID [facility] Last Admin: 11/11/17 16:46 Dose: 20 mg Glipizide (Glucotrol Xl) 2.5 mg PO DAILY [facility] Last Admin: 11/11/17 08:00 Dose: 2.5 mg Isosorbide Mononitrate (Imdur Er) 30 mg PO DAILY [facility] Last Admin: 11/11/17 08:00 Dose: 30 mg Methimazole (Tapazole) 5 mg PO DAILY [facility] Last Admin: 11/11/17 08:00 Dose: 5 mg Metoprolol Tartrate (Lopressor) 25 mg PO Q12 [facility] Last Admin: 11/11/17 20:17 Dose: 25 mg Moxifloxacin HCl (Avelox) 400 mg PO DAILY [facility] PRN Reason: Protocol Last Admin: 11/11/17 08:00 Dose: 400 mg - Labs Labs: 11/11/17 06:15 11/11/17 06:15 - Respiratory Exam Respiratory Exam: NORMAL BREATHING PATTERN - Cardiovascular Exam Cardiovascular Exam: REGULAR RHYTHM - GI/Abdominal Exam GI & Abdominal Exam: Normal Bowel Sounds Assessment and Plan - Assessment and Plan (Free Text) Assessment: Low ext edema with blisters- etiol? Improved Venous Insufficiency Infectious? Serratia G- Leg elevation ID Podiatry oral Abx CAD CHF Diastolic Stress test myocardial scar LAD LV fxn 43% Refusing cardiac cath Plavix Nitrates CHAITANYA B-Chi Hx COPD L Pleural effusion CT scan improvement Pulmonary Anemia etiol? repeat labs ASA d/c as outpt due to dec Hbg Stool for OB pending?? Hematology NIDDM Thyroid dx Endo
[2017-11-12] MEDS: methIMAzole 5 MG TAB PO SCH (08:38)
[2017-11-12] MEDS: GlipiZIDE 2.5 mg SR Tab PO SCH (08:39)
[2017-11-12] MEDS: Enoxaparin 40 mg Syringe SC SCH (08:40)
[2017-11-12] MEDS: Desoximetasone 0.25% Cream(15 gm) TOP SCH ×2 (08:40→17:17)
--- NOTE | 2017-11-12 09:36 | CP.PCM.CON ---
History of Present Illness - History of Present Illness History of Present Illness: 77 year old female with a history of DM, CAD, CHF, anemia, currently admitted to TCU with progressive anemia. The patient reports to being told she had anemia in the outpatient setting. She was on aspirin which was discontinued. She is currently on Plavix. She denies abnormal bleeding but does note to bruising. Past medical history: DM, CAD, CHF, anemia Past surgical history: Denies Family history: Denies hematologic and oncologic problems Social history: Former tobacco Allergies: NKA Review of systems: All remaining review of systems including HEENT, cardiovascular, respiratory, gastrointestinal, genitourinary, musculoskeletal, dermatologic, neurologic, and psychiatric are negative unless mentioned in the HPI. Past Patient History - Infectious Disease Hx of Infectious Diseases: None - Past Medical History & Family History Past Medical History?: Yes - Past Social History Smoking Status: Former Smoker Chewing Tobacco Use: No Cigar Use: No Alcohol: Social Drugs: Denies Home Situation {Lives}: Alone - CARDIAC Hx Congestive Heart Failure: Yes Hx Hypercholesterolemia: Yes Hx Hypertension: Yes Hx Peripheral Edema: Yes - PULMONARY Hx Bronchitis: Yes Hx Pneumonia: Yes - NEUROLOGICAL Hx Neurological Disorder: No - HEENT Hx HEENT Problems: No - RENAL Hx Chronic Kidney Disease: Yes - ENDOCRINE/METABOLIC Hx Diabetes Mellitus Type 2: Yes Hx Hyperthyroidism: Yes - HEMATOLOGICAL/ONCOLOGICAL Hx AIDS: No Hx Human Immunodeficiency Virus (HIV): No - INTEGUMENTARY Hx Dermatological Problems: No - MUSCULOSKELETAL/RHEUMATOLOGICAL Hx Falls: No - GASTROINTESTINAL Hx Gastrointestinal Disorders: No - GENITOURINARY/GYNECOLOGICAL Hx Genitourinary Disorders: No - PSYCHIATRIC Hx Substance Use: No - SURGICAL HISTORY Hx Appendectomy: Yes - ANESTHESIA Hx Anesthesia: Yes Hx Anesthesia Reactions: No Hx Malignant Hyperthermia: No Meds Allergies/Adverse Reactions: Allergies Allergy/AdvReac Type Severity Reaction Status Date / Time No Known Allergies Allergy Verified 11/08/17 15:56 - Medications Medications: Current Medications Acetaminophen (Tylenol 325mg Tab) 650 mg PO Q4 PRN PRN Reason: Pain, Mild (1-3) Last Admin: 11/12/17 09:07 Dose: 650 mg Amoxicillin (Amoxil 500 Mg Cap) 500 mg PO Q8 [facility] PRN Reason: Protocol Last Admin: 11/12/17 08:35 Dose: 500 mg Clopidogrel Bisulfate (Plavix) 75 mg PO DAILY [facility] Last Admin: 11/12/17 08:40 Dose: 75 mg Desoximetasone (Topicort 0.25%) 1 ea TOP BID [facility] Last Admin: 11/12/17 08:40 Dose: 1 u Famotidine (Pepcid) 20 mg PO DAILY [facility] Last Admin: 11/12/17 08:39 Dose: 20 mg Furosemide (Lasix) 20 mg PO BID [facility] Last Admin: 11/12/17 08:39 Dose: 20 mg Glipizide (Glucotrol Xl) 2.5 mg PO DAILY [facility] Last Admin: 11/12/17 08:39 Dose: 2.5 mg Isosorbide Mononitrate (Imdur Er) 30 mg PO DAILY [facility] Last Admin: 11/12/17 08:38 Dose: 30 mg Methimazole (Tapazole) 5 mg PO DAILY [facility] Last Admin: 11/12/17 08:38 Dose: 5 mg Metoprolol Tartrate (Lopressor) 25 mg PO Q12 [facility] Last Admin: 11/12/17 08:40 Dose: 25 mg Moxifloxacin HCl (Avelox) 400 mg PO DAILY [facility] PRN Reason: Protocol Last Admin: 11/12/17 08:39 Dose: 400 mg Physical Exam - Head Exam Head Exam: ATRAUMATIC - Eye Exam Eye Exam: Normal appearance - ENT Exam ENT Exam: Mucous Membranes Dry - Respiratory Exam Respiratory Exam: NORMAL BREATHING PATTERN - Cardiovascular Exam Cardiovascular Exam: +S1, +S2 - GI/Abdominal Exam GI & Abdominal Exam: Normal Bowel Sounds - Extremities Exam Extremities exam: Positive for: pedal edema - Neurological Exam Neurological exam: Oriented x3 - Psychiatric Exam Psychiatric exam: Normal Affect, Normal Mood - Skin Skin Exam: Warm Results - Vital Signs Recent Vital Signs: Last Vital Signs Temp 96.4 F L 11/12/17 08:00 Pulse 76 11/12/17 08:40 Resp 20 11/12/17 08:00 BP 117/54 L 11/12/17 08:40 Pulse Ox 96 11/12/17 08:00 - Labs Result Diagrams: 11/11/17 06:15 11/11/17 06:15 Labs: Laboratory Results - last 24 hr 11/10/17 11/11/17 11/11/17 19:00 05:19 16:28 Retic Count POC Glucose (mg/dL) 121 H 107 Iron TIBC % Saturation Ferritin Vitamin B12 Stool Occult Blood Negative 11/11/17 11/11/17 11/11/17 16:33 16:33 16:33 Retic Count 4.6 H POC Glucose (mg/dL) Iron 40 TIBC 436 % Saturation 9 L Ferritin 67.4 Vitamin B12 374 Stool Occult Blood 11/11/17 11/12/17 22:42 05:53 Retic Count POC Glucose (mg/dL) 125 H 106 Iron TIBC % Saturation Ferritin Vitamin B12 Stool Occult Blood Assessment & Plan (1) Anemia Assessment and Plan: H/H fairly stable over the past week retic index appropriate for degree of anemia - good bone marrow response iron stores noted to be declining over several months given ferritin downtrending, although still normal range suspect mild intermittent GI blood loss; curent FOBT negative discussed with Dr. Cardoso holding Plavix if H/H cont. to decline discussed with the patient about IV iron infusion as well as a dose of Procrit to increase H/H; she wants to think about it. Status: Acute (2) Leukopenia Assessment and Plan: mild, no neutropenia Thank you for this interesting consult. Status: Acute
--- NOTE | 2017-11-12 11:08 | CP.PCM.PN ---
Subjective - Date & Time of Evaluation Date of Evaluation: 11/12/17 Time of Evaluation: 08:00 - Subjective Subjective: Podiatry Progress Note- Dr. Briseno 77 y.o female seen and evaluated at bedside with attending for bilateral leg swelling and draining blisters to left lower extremity. Patient is seen sitting at bedside in dependent position, in NAD, and AA0x3. Patient encouraged to keep legs elevate and avoid sitting in dependent, however patient reports that sitting at bedside makes her comfortable. Patient removed the dressings including the CHAITANYA that were placed yesterday, stating that she felt the need to remove the dressing. Patient denies acute overnight events. Reports same burning pain to the LE. Offers no other complaints. Denies N/V/F/D/C/SOB/HILTON/ chest pain/dizziness. Objective - Vital Signs/Intake and Output Vital Signs (last 24 hours): Temp Pulse Resp BP Pulse Ox 96.4 F L 76 20 117/54 L 96 11/12/17 08:00 11/12/17 08:40 11/12/17 08:00 11/12/17 08:40 11/12/17 08:00 - Medications Medications: Current Medications Acetaminophen (Tylenol 325mg Tab) 650 mg PO Q4 PRN PRN Reason: Pain, Mild (1-3) Last Admin: 11/12/17 09:07 Dose: 650 mg Amoxicillin (Amoxil 500 Mg Cap) 500 mg PO Q8 [facility] PRN Reason: Protocol Last Admin: 11/12/17 08:35 Dose: 500 mg Clopidogrel Bisulfate (Plavix) 75 mg PO DAILY [facility] Last Admin: 11/12/17 08:40 Dose: 75 mg Desoximetasone (Topicort 0.25%) 1 ea TOP BID [facility] Last Admin: 11/12/17 08:40 Dose: 1 u Famotidine (Pepcid) 20 mg PO DAILY [facility] Last Admin: 11/12/17 08:39 Dose: 20 mg Furosemide (Lasix) 20 mg PO BID [facility] Last Admin: 11/12/17 08:39 Dose: 20 mg Glipizide (Glucotrol Xl) 2.5 mg PO DAILY [facility] Last Admin: 11/12/17 08:39 Dose: 2.5 mg Isosorbide Mononitrate (Imdur Er) 30 mg PO DAILY [facility] Last Admin: 11/12/17 08:38 Dose: 30 mg Methimazole (Tapazole) 5 mg PO DAILY [facility] Last Admin: 11/12/17 08:38 Dose: 5 mg Metoprolol Tartrate (Lopressor) 25 mg PO Q12 [facility] Last Admin: 11/12/17 08:40 Dose: 25 mg Moxifloxacin HCl (Avelox) 400 mg PO DAILY [facility] PRN Reason: Protocol Last Admin: 11/12/17 08:39 Dose: 400 mg - Labs Labs: 11/11/17 06:15 11/11/17 06:15 - Constitutional Appears: Well, Non-toxic, No Acute Distress - Extremities Exam Extremities Exam: absent: Calf Tenderness Additional comments: Patient is seen with legs in dependent position at bedside with dressing off Vasc: DP pulses weakly palpable 1/4 b/l. Nonpalpable PT pulses secondary to edema, +2 pitting edema to bilateral LE, TG wnl, CFT < 4 sec to all digits Neuro: protective and gross sensation diminished Derm: lanced bullae noted to left anterior leg with mild serous drainage, slight discoloration, no malodor, no fluctuance, wound base appears mixture of granular and fibrotic with fibrotic island centrally Lanced bullae #2 noted to dorsal forefoot filled with serous fluid refilling part of bullae, no ascending cellulitis, no acute clinical signs of infection. Deroofed bullae with weeping noted to anterior right leg, no periwound erythema noted. No clinical signs of infection to any bullae sites; two tiny blisters with serous noted to the medial aspect of the upper leg Ortho: no tenderness to palpation of posterior right leg, no tenderness to palpation of posterior left leg - Neurological Exam Neurological Exam: Alert, Awake, Oriented x3 - Psychiatric Exam Psychiatric exam: Normal Affect, Normal Mood Assessment and Plan - Assessment and Plan (Free Text) Assessment: 77 y.o female seen at bedside for bilateral lower extremity swelling with bullae secondary to CHF, improving Plan: -Patient seen and evaluated with attending, Dr. Briseno at bedside -Afebrile -Bilateral venous duplex negative for DVT -Left leg WCx: serratia marcescens, klebsiella oxytoca, enterococcus faecalis -Patient's two new blisters on the medial aspect of right leg lanced with a 18 gauge needle without incident. Serous fluid drained, cleansed with saline, and - dressed with durafiber, allevyn pads. -Cleansed lanced blisters with saline solution and applied durafiber, allevyn pads, CHAITANYA -Continue local wound care - Durafiber, Allevyn pads, CHAITANYA -Bilateral lower extremity swelling and blisters secondary to LE swelling -Patient has been noncompliant by removing dressings and sitting in dependent position Educated on elevation and keeping dressing intact to reduce swelling and reduce serous blisters formation to LE. -Encourage LE elevation, minimize legs in dependent position -Encourage patient to keep dressing on and CHAITANYA on -Continue abx per ID - patient refusing further IV Rx, continue Amoxicillin 500mg PO q8, Moxiflocacin 400mg PO QD -Podiatry will continue to follow while in house -Upon discharge, patient will follow with up Dr. Briseno for continue care of bilateral swelling and blister formations.
--- NOTE | 2017-11-12 21:16 | CP.PCM.PN ---
Subjective - Date & Time of Evaluation Date of Evaluation: 11/12/17 Time of Evaluation: 22:22 - Subjective Subjective: Above noted Objective - Vital Signs/Intake and Output Vital Signs (last 24 hours): Temp Pulse Resp BP Pulse Ox 97.2 F L 82 20 141/67 94 L 11/12/17 19:36 11/12/17 20:14 11/12/17 19:36 11/12/17 20:14 11/12/17 19:36 - Medications Medications: Current Medications Acetaminophen (Tylenol 325mg Tab) 650 mg PO Q4 PRN PRN Reason: Pain, Mild (1-3) Last Admin: 11/12/17 09:07 Dose: 650 mg Amoxicillin (Amoxil 500 Mg Cap) 500 mg PO Q8 [facility] PRN Reason: Protocol Last Admin: 11/12/17 17:17 Dose: 500 mg Clopidogrel Bisulfate (Plavix) 75 mg PO DAILY [facility] Last Admin: 11/12/17 08:40 Dose: 75 mg Desoximetasone (Topicort 0.25%) 1 ea TOP BID [facility] Last Admin: 11/12/17 17:17 Dose: 1 u Famotidine (Pepcid) 20 mg PO DAILY [facility] Last Admin: 11/12/17 08:39 Dose: 20 mg Furosemide (Lasix) 20 mg PO BID [facility] Last Admin: 11/12/17 17:18 Dose: 20 mg Glipizide (Glucotrol Xl) 2.5 mg PO DAILY [facility] Last Admin: 11/12/17 08:39 Dose: 2.5 mg Isosorbide Mononitrate (Imdur Er) 30 mg PO DAILY [facility] Last Admin: 11/12/17 08:38 Dose: 30 mg Methimazole (Tapazole) 5 mg PO DAILY [facility] Last Admin: 11/12/17 08:38 Dose: 5 mg Metoprolol Tartrate (Lopressor) 25 mg PO Q12 [facility] Last Admin: 11/12/17 20:14 Dose: 25 mg Moxifloxacin HCl (Avelox) 400 mg PO DAILY [facility] PRN Reason: Protocol Last Admin: 11/12/17 08:39 Dose: 400 mg - Labs Labs: 11/11/17 06:15 11/11/17 06:15 - Respiratory Exam Respiratory Exam: NORMAL BREATHING PATTERN - Cardiovascular Exam Cardiovascular Exam: REGULAR RHYTHM - GI/Abdominal Exam GI & Abdominal Exam: Normal Bowel Sounds Assessment and Plan - Assessment and Plan (Free Text) Assessment: Low ext edema with blisters- etiol? Improved Venous Insufficiency Infectious? Serratia G- Leg elevation ID Podiatry oral Abx CAD CHF Diastolic Stress test myocardial scar LAD LV fxn 43% Refusing cardiac cath Plavix Nitrates CHAITANYA B-Chi Hx COPD L Pleural effusion CT scan improvement Pulmonary Anemia etiol? repeat labs ASA d/c as outpt due to dec Hbg Stool for OB pending negative Hematology NIDDM Thyroid dx Endo
--- NOTE | 2017-11-13 07:59 | CP.PCM.PN ---
Subjective - Date & Time of Evaluation Date of Evaluation: 11/13/17 Time of Evaluation: 08:20 - Subjective Subjective: Podiatry Progress Note- Dr. Briseno 77 y.o female seen and evaluated at bedside for bilateral leg swelling and draining blisters to the lower extremity. Patient is seen sitting at bedside in dependent position enjoying breakfast, in NAD, and AA0x3. Patient is seen at bedside with CHAITANYA dressing off. Reports that the CHAITANYA came off last night when she was sleeping. Patient reports the same burning pain. She denies nausea, vomiting, shortness of breathe, chest pains, or chills. No new pedal complaints today. Objective - Vital Signs/Intake and Output Vital Signs (last 24 hours): Temp Pulse Resp BP Pulse Ox 97.2 F L 82 20 141/67 94 L 11/12/17 19:36 11/12/17 20:14 11/12/17 19:36 11/12/17 20:14 11/12/17 19:36 - Medications Medications: Current Medications Acetaminophen (Tylenol 325mg Tab) 650 mg PO Q4 PRN PRN Reason: Pain, Mild (1-3) Last Admin: 11/12/17 22:59 Dose: 650 mg Amoxicillin (Amoxil 500 Mg Cap) 500 mg PO Q8 [facility] PRN Reason: Protocol Last Admin: 11/13/17 00:12 Dose: 500 mg Clopidogrel Bisulfate (Plavix) 75 mg PO DAILY [facility] Last Admin: 11/12/17 08:40 Dose: 75 mg Desoximetasone (Topicort 0.25%) 1 ea TOP BID [facility] Last Admin: 11/12/17 17:17 Dose: 1 u Famotidine (Pepcid) 20 mg PO DAILY@2100 [facility] Furosemide (Lasix) 20 mg PO BID [facility] Last Admin: 11/12/17 17:18 Dose: 20 mg Glipizide (Glucotrol Xl) 2.5 mg PO DAILY [facility] Last Admin: 11/12/17 08:39 Dose: 2.5 mg Isosorbide Mononitrate (Imdur Er) 30 mg PO DAILY [facility] Last Admin: 11/12/17 08:38 Dose: 30 mg Methimazole (Tapazole) 5 mg PO DAILY [facility] Last Admin: 11/12/17 08:38 Dose: 5 mg Metoprolol Tartrate (Lopressor) 25 mg PO Q12 [facility] Last Admin: 11/12/17 20:14 Dose: 25 mg Moxifloxacin HCl (Avelox) 400 mg PO DAILY [facility] PRN Reason: Protocol Last Admin: 11/12/17 08:39 Dose: 400 mg - Labs Labs: 11/11/17 06:15 11/11/17 06:15 - Constitutional Appears: Well, Non-toxic, No Acute Distress - Extremities Exam Additional comments: Patient is seen with legs in dependent position at bedside with dressing off Vasc: DP pulses weakly palpable 1/4 b/l. Nonpalpable PT pulses secondary to edema, +2 pitting edema to bilateral LE, TG wnl, CFT < 4 sec to all digits Neuro: protective and gross sensation diminished Derm: lanced bullae noted to left anterior leg with mild serous drainage, slight discoloration, no malodor, no fluctuance, wound base appears mixture of granular and fibrotic with fibrotic island centrally Lanced bullae #2 noted to dorsal forefoot filled with serous fluid refilling part of bullae, no ascending cellulitis, no acute clinical signs of infection. Deroofed bullae with weeping noted to anterior right leg, no periwound erythema noted. No clinical signs of infection to any bullae sites; two tiny blisters with serous noted to the medial aspect of the upper leg Ortho: no tenderness to palpation of posterior right leg, no tenderness to palpation of posterior left leg - Neurological Exam Neurological Exam: Alert, Awake, Oriented x3 - Psychiatric Exam Psychiatric exam: Normal Affect, Normal Mood Assessment and Plan - Assessment and Plan (Free Text) Assessment: 77 y.o female seen at bedside for bilateral lower extremity swelling with bullae secondary to CHF, improving Plan: -Patient seen and evaluated with attending, Dr. Briseno at bedside -Afebrile -Bilateral venous duplex negative for DVT -Left leg WCx: serratia marcescens, klebsiella oxytoca, enterococcus faecalis -Cleansed lanced blisters with saline solution and applied durafiber, allevyn pads, CHAITANYA -Continue local wound care - Durafiber, Allevyn pads, CHAITANYA -Bilateral lower extremity swelling and blisters secondary to LE swelling -Patient has been noncompliant by removing dressings and sitting in dependent position Educated on elevation and keeping dressing intact to reduce swelling and reduce serous blisters formation to LE. -Encourage LE elevation, minimize legs in dependent position -Encourage patient to keep dressing on and CHAITANYA on -Continue abx per ID - patient refusing further IV Rx, continue Amoxicillin 500mg PO q8, Moxiflocacin 400mg PO QD -Podiatry will continue to follow while in house -Upon discharge, patient will follow with up Dr. Briseno for continue care of bilateral swelling and blister formations.
[2017-11-13] MEDS: Desoximetasone 0.25% Cream(15 gm) TOP SCH ×2 (08:18→17:55)
[2017-11-13] MEDS: GlipiZIDE 2.5 mg SR Tab PO SCH (08:20)
[2017-11-13] MEDS: methIMAzole 5 MG TAB PO SCH (08:21)
--- NOTE | 2017-11-13 10:20 | CP.PCM.PN ---
Subjective - Date & Time of Evaluation Date of Evaluation: 11/13/17 Time of Evaluation: 08:30 - Subjective Subjective: NO CHEST PAIN OR SOB Objective - Vital Signs/Intake and Output Vital Signs (last 24 hours): Temp Pulse Resp BP Pulse Ox 97.9 F 68 20 126/53 L 97 11/13/17 08:45 11/13/17 08:45 11/13/17 08:45 11/13/17 08:45 11/13/17 08:45 - Medications Medications: Current Medications Acetaminophen (Tylenol 325mg Tab) 650 mg PO Q4 PRN PRN Reason: Pain, Mild (1-3) Last Admin: 11/13/17 10:14 Dose: 650 mg Amoxicillin (Amoxil 500 Mg Cap) 500 mg PO Q8 [facility] PRN Reason: Protocol Last Admin: 11/13/17 08:18 Dose: 500 mg Clopidogrel Bisulfate (Plavix) 75 mg PO DAILY [facility] Last Admin: 11/13/17 08:20 Dose: 75 mg Desoximetasone (Topicort 0.25%) 1 ea TOP BID [facility] Last Admin: 11/13/17 08:18 Dose: 1 u Famotidine (Pepcid) 20 mg PO DAILY@2100 [facility] Furosemide (Lasix) 20 mg PO BID [facility] Last Admin: 11/13/17 08:19 Dose: 20 mg Glipizide (Glucotrol Xl) 2.5 mg PO DAILY [facility] Last Admin: 11/13/17 08:20 Dose: 2.5 mg Isosorbide Mononitrate (Imdur Er) 30 mg PO DAILY [facility] Last Admin: 11/13/17 08:20 Dose: 30 mg Methimazole (Tapazole) 5 mg PO DAILY [facility] Last Admin: 11/13/17 08:21 Dose: 5 mg Metoprolol Tartrate (Lopressor) 25 mg PO Q12 [facility] Last Admin: 11/13/17 08:19 Dose: 25 mg Moxifloxacin HCl (Avelox) 400 mg PO DAILY [facility] PRN Reason: Protocol Last Admin: 11/13/17 08:20 Dose: 400 mg - Labs Labs: 11/11/17 06:15 11/11/17 06:15 - Respiratory Exam Respiratory Exam: Clear to Ausculation Bilateral - Cardiovascular Exam Cardiovascular Exam: REGULAR RHYTHM, +S1, +S2 - Extremities Exam Additional comments: LE LEG EDEMA IS LESS LEG SORES ARE IMPROVING Assessment and Plan - Assessment and Plan (Free Text) Assessment: CAD BILATERAL PLEURAL EFFUSIONS-SMALL BILATERAL LOWER EXTREMITY VENOUS INSUFFICIENCY LOW IRON STORES WITH ANEMIA Plan: CONTINUE METOPROLOL, ISOSORBIDE MONONITRATE, FUROSEMIDE AND CLOPIDOGREL SPOKE TO DR DUMAS WHO STATED IRON REPLACEMENT WOULD BE GIVEN ONCE STOOL OCCULT BLOOD RESULTS WERE DONE
[2017-11-13] MEDS: Enoxaparin 40 mg Syringe SC SCH (17:55)
--- NOTE | 2017-11-13 18:54 | CP.PCM.PN ---
Subjective - Date & Time of Evaluation Date of Evaluation: 11/13/17 Time of Evaluation: 22:22 - Subjective Subjective: Above noted Objective - Vital Signs/Intake and Output Vital Signs (last 24 hours): Temp Pulse Resp BP Pulse Ox 97.2 F L 68 20 115/59 L 91 L 11/13/17 15:50 11/13/17 15:50 11/13/17 15:50 11/13/17 17:55 11/13/17 15:50 - Medications Medications: Current Medications Acetaminophen (Tylenol 325mg Tab) 650 mg PO Q4 PRN PRN Reason: Pain, Mild (1-3) Last Admin: 11/13/17 10:14 Dose: 650 mg Amoxicillin (Amoxil 500 Mg Cap) 500 mg PO Q8 [facility] PRN Reason: Protocol Last Admin: 11/13/17 17:55 Dose: 500 mg Clopidogrel Bisulfate (Plavix) 75 mg PO DAILY [facility] Last Admin: 11/13/17 08:20 Dose: 75 mg Desoximetasone (Topicort 0.25%) 1 ea TOP BID [facility] Last Admin: 11/13/17 17:55 Dose: 1 u Enoxaparin Sodium (Lovenox) 40 mg SC DAILY [facility] PRN Reason: Protocol Last Admin: 11/13/17 17:55 Dose: 40 mg Famotidine (Pepcid) 20 mg PO DAILY@2100 [facility] Furosemide (Lasix) 20 mg PO BID [facility] Last Admin: 11/13/17 17:55 Dose: 20 mg Glipizide (Glucotrol Xl) 2.5 mg PO DAILY [facility] Last Admin: 11/13/17 08:20 Dose: 2.5 mg Isosorbide Mononitrate (Imdur Er) 30 mg PO DAILY [facility] Last Admin: 11/13/17 08:20 Dose: 30 mg Methimazole (Tapazole) 5 mg PO DAILY [facility] Last Admin: 11/13/17 08:21 Dose: 5 mg Metoprolol Tartrate (Lopressor) 25 mg PO Q12 [facility] Last Admin: 11/13/17 08:19 Dose: 25 mg Moxifloxacin HCl (Avelox) 400 mg PO DAILY [facility] PRN Reason: Protocol Last Admin: 11/13/17 08:20 Dose: 400 mg - Labs Labs: 11/11/17 06:15 11/11/17 06:15 - Respiratory Exam Respiratory Exam: NORMAL BREATHING PATTERN - Cardiovascular Exam Cardiovascular Exam: REGULAR RHYTHM - GI/Abdominal Exam GI & Abdominal Exam: Normal Bowel Sounds Assessment and Plan - Assessment and Plan (Free Text) Assessment: Low ext edema with blisters- etiol? Improved Venous Insufficiency Infectious? Serratia G- Leg elevation ID Podiatry oral Abx CAD CHF Diastolic Stress test myocardial scar LAD LV fxn 43% Refusing cardiac cath Plavix Nitrates CHAITANYA B-Chi Hx COPD L Pleural effusion CT scan improvement Pulmonary Anemia Fe defiiciency etiol? As per hematology ASA d/c as outpt due to dec Hbg Stool for OB negative Pt refusing GI workup NIDDM Thyroid dx Endo
[2017-11-14 06:02] LABS: BASO % 0.3 % (0.0-2.0); EOS # 0.2 K/uL (0.0-0.7); EOS % 2.6 % (0.0-4.0); HEMOGLOBIN 10.3 g/dL (12.0-16.0); LYMPH # 1.1 K/uL (1.0-4.3); LYMPH % 18.4 % (20.0-40.0); MEAN CORPUSCULAR HEMOGLOBIN 27.4 pg (27.0-31.0); MEAN CORPUSCULAR HGB CONC 31.8 g/dL (33.0-37.0); MEAN PLATELET VOLUME 8.6 fl (7.2-11.7); MONO # 0.7 K/uL (0.0-0.8); MONO % 11.3 % (0.0-10.0); NEUT # 4.1 K/uL (1.8-7.0); NEUT % 67.4 % (50.0-75.0); NRBC % 13.4 % (0.0-0.0); RBC 3.78 Mil/uL (3.80-5.20); RED CELL DISTRIBUTION WIDTH 18.7 % (11.5-14.5); WHITE BLOOD COUNT 6.1 K/uL (4.8-10.8)
[2017-11-14 06:34] LABS: ALB/GLOB RATIO 1.2 (1.0-2.1); CALCIUM 9.1 mg/dL (8.4-10.2)
[2017-11-14] MEDS: Enoxaparin 40 mg Syringe SC SCH (08:19)
[2017-11-14] MEDS: methIMAzole 5 MG TAB PO SCH (08:20)
[2017-11-14] MEDS: Desoximetasone 0.25% Cream(15 gm) TOP SCH ×2 (08:21→17:00)
[2017-11-14] MEDS: GlipiZIDE 2.5 mg SR Tab PO SCH (08:21)
--- NOTE | 2017-11-14 10:56 | CP.PCM.PN ---
Subjective - Date & Time of Evaluation Date of Evaluation: 11/14/17 Time of Evaluation: 10:57 - Subjective Subjective: Podiatry Progress Note- Dr. Briseno 77 y.o female seen and evaluated at bedside for bilateral leg swelling and draining blisters to the lower extremity. Patient is seen sitting at bedside in dependent position, in NAD, and AA0x3. Patient was seen at bedside with dressing off. Patient reports the same burning pain to the right LE at the site of blisters. She denies nausea, vomiting, shortness of breathe, chest pains, or chills. No new pedal complaints today. Objective - Vital Signs/Intake and Output Vital Signs (last 24 hours): Temp Pulse Resp BP Pulse Ox 97.7 F 68 20 120/63 92 L 11/14/17 07:48 11/14/17 08:20 11/14/17 07:48 11/14/17 08:20 11/14/17 07:48 - Medications Medications: Current Medications Acetaminophen (Tylenol 325mg Tab) 650 mg PO Q4 PRN PRN Reason: Pain, Mild (1-3) Last Admin: 11/14/17 09:09 Dose: 650 mg Amoxicillin (Amoxil 500 Mg Cap) 500 mg PO Q8 [facility] PRN Reason: Protocol Last Admin: 11/14/17 09:37 Dose: 500 mg Clopidogrel Bisulfate (Plavix) 75 mg PO DAILY [facility] Last Admin: 11/14/17 08:20 Dose: 75 mg Desoximetasone (Topicort 0.25%) 1 ea TOP BID [facility] Last Admin: 11/14/17 08:21 Dose: 1 u Enoxaparin Sodium (Lovenox) 40 mg SC DAILY [facility] PRN Reason: Protocol Last Admin: 11/14/17 08:19 Dose: 40 mg Famotidine (Pepcid) 20 mg PO DAILY@2100 [facility] Last Admin: 11/13/17 20:28 Dose: 20 mg Furosemide (Lasix) 20 mg PO BID [facility] Last Admin: 11/14/17 08:19 Dose: 20 mg Glipizide (Glucotrol Xl) 2.5 mg PO DAILY [facility] Last Admin: 11/14/17 08:21 Dose: 2.5 mg Isosorbide Mononitrate (Imdur Er) 30 mg PO DAILY [facility] Last Admin: 11/14/17 08:20 Dose: 30 mg Methimazole (Tapazole) 5 mg PO DAILY [facility] Last Admin: 11/14/17 08:20 Dose: 5 mg Metoprolol Tartrate (Lopressor) 25 mg PO Q12 [facility] Last Admin: 11/14/17 08:20 Dose: 25 mg Moxifloxacin HCl (Avelox) 400 mg PO DAILY [facility] PRN Reason: Protocol Last Admin: 11/14/17 09:37 Dose: Not Given - Labs Labs: 11/14/17 05:54 11/14/17 05:54 - Constitutional Appears: Well, Non-toxic, No Acute Distress - Extremities Exam Extremities Exam: absent: Calf Tenderness Additional comments: Patient is seen with legs in dependent position at bedside with dressing off Vasc: DP pulses weakly palpable 1/4 b/l. Nonpalpable PT pulses secondary to edema, +2 pitting edema to bilateral LE, TG wnl, CFT < 4 sec to all digits Neuro: protective and gross sensation diminished Derm: lanced bullae noted to left anterior leg with mild serous drainage, slight discoloration, no malodor, no fluctuance, wound base appears mixture of granular and fibrotic with fibrotic island centrally Lanced bullae #2 noted to dorsal forefoot filled with serous fluid refilling part of bullae, no ascending cellulitis, no acute clinical signs of infection. Deroofed bullae with weeping noted to anterior right leg, no periwound erythema noted. No clinical signs of infection to any bullae sites; two tiny blisters with serous noted to the medial aspect of the upper leg which has resolved Ortho: no tenderness to palpation of posterior right leg, no tenderness to palpation of posterior left leg - Neurological Exam Neurological Exam: Alert, Awake, Oriented x3 - Psychiatric Exam Psychiatric exam: Normal Affect, Normal Mood Assessment and Plan - Assessment and Plan (Free Text) Assessment: 77 y.o female seen at bedside for bilateral lower extremity swelling with bullae secondary to CHF, improving Plan: -Patient seen and evaluated -Charts, lab, vitals reviewed -Discussed plan in detail with attending (absent leukocytosis 6.1) -Bilateral venous duplex negative for DVT -Left leg WCx: serratia marcescens, klebsiella oxytoca, enterococcus faecalis -Cleansed lanced blisters with saline solution and applied durafiber, allevyn pads, CHAITANYA -Continue local wound care - Durafiber, Allevyn pads, CHAITANYA -Bilateral lower extremity swelling and blisters secondary to LE swelling -Patient has been noncompliant by removing dressings and sitting in dependent position Educated on elevation and keeping dressing intact to reduce swelling and reduce serous blisters formation to LE. -Encourage LE elevation, minimize legs in dependent position -Encourage patient to keep dressing on and CHAITANYA on -Continue abx per ID - patient refused further IV Rx, continue Amoxicillin 500mg PO q8, Moxiflocacin 400mg PO QD -Podiatry will continue to follow while in house -Upon discharge, patient will follow with up Dr. Briseno for continue care of bilateral swelling and blister formations within 1 week. -Patient needs to change dressing daily, with calcium alignate dressing (such as maxosorb, silvercell) with dsd daily.
--- NOTE | 2017-11-14 12:36 | CP.PCM.PN ---
Subjective - Date & Time of Evaluation Date of Evaluation: 11/14/17 Time of Evaluation: 08:00 - Subjective Subjective: 77 y.o female seen and evaluated at bedside for bilateral leg swelling and draining blisters to the lower extremity. Objective - Vital Signs/Intake and Output Vital Signs (last 24 hours): Temp Pulse Resp BP Pulse Ox 97.7 F 68 20 120/63 92 L 11/14/17 07:48 11/14/17 08:20 11/14/17 07:48 11/14/17 08:20 11/14/17 07:48 - Medications Medications: Current Medications Acetaminophen (Tylenol 325mg Tab) 650 mg PO Q4 PRN PRN Reason: Pain, Mild (1-3) Last Admin: 11/14/17 09:09 Dose: 650 mg Amoxicillin (Amoxil 500 Mg Cap) 500 mg PO Q8 [facility] PRN Reason: Protocol Last Admin: 11/14/17 09:37 Dose: 500 mg Clopidogrel Bisulfate (Plavix) 75 mg PO DAILY [facility] Last Admin: 11/14/17 08:20 Dose: 75 mg Desoximetasone (Topicort 0.25%) 1 ea TOP BID [facility] Last Admin: 11/14/17 08:21 Dose: 1 u Enoxaparin Sodium (Lovenox) 40 mg SC DAILY [facility] PRN Reason: Protocol Last Admin: 11/14/17 08:19 Dose: 40 mg Famotidine (Pepcid) 20 mg PO DAILY@2100 [facility] Last Admin: 11/13/17 20:28 Dose: 20 mg Furosemide (Lasix) 20 mg PO BID [facility] Last Admin: 11/14/17 08:19 Dose: 20 mg Glipizide (Glucotrol Xl) 2.5 mg PO DAILY [facility] Last Admin: 11/14/17 08:21 Dose: 2.5 mg Isosorbide Mononitrate (Imdur Er) 30 mg PO DAILY [facility] Last Admin: 11/14/17 08:20 Dose: 30 mg Methimazole (Tapazole) 5 mg PO DAILY [facility] Last Admin: 11/14/17 08:20 Dose: 5 mg Metoprolol Tartrate (Lopressor) 25 mg PO Q12 [facility] Last Admin: 11/14/17 08:20 Dose: 25 mg Moxifloxacin HCl (Avelox) 400 mg PO DAILY [facility] PRN Reason: Protocol Last Admin: 11/14/17 09:37 Dose: Not Given - Labs Labs: 11/14/17 05:54 11/14/17 05:54 - Constitutional Appears: Non-toxic, Chronically Ill - Head Exam Head Exam: ATRAUMATIC, NORMOCEPHALIC - Eye Exam Eye Exam: PERRL. absent: Scleral icterus - ENT Exam ENT Exam: Mucous Membranes Dry - Neck Exam Neck Exam: absent: Lymphadenopathy - Respiratory Exam Respiratory Exam: Decreased Breath Sounds - Cardiovascular Exam Cardiovascular Exam: REGULAR RHYTHM - GI/Abdominal Exam GI & Abdominal Exam: Distended, Soft - Rectal Exam Rectal Exam: Deferred - Exam Exam: NORMAL INSPECTION - Extremities Exam Extremities Exam: absent: Pedal Edema - Back Exam Back Exam: absent: CVA tenderness (L), CVA tenderness (R) - Neurological Exam Neurological Exam: Alert, Awake, Oriented x3 - Psychiatric Exam Psychiatric exam: Depressed - Skin Skin Exam: Dry Assessment and Plan (1) 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 (2) Atelectasis, bilateral Status: Acute (3) CHF exacerbation Status: Acute (4) Edema of both lower extremities due to peripheral venous insufficiency Status: Acute - Assessment and Plan (Free Text) Assessment: refusing antibiotics
--- NOTE | 2017-11-14 14:07 | CP.PCM.PN ---
Subjective - Date & Time of Evaluation Date of Evaluation: 11/14/17 Time of Evaluation: 14:07 - Subjective Subjective: Seated on the edge of the bed appears comfortable. Offers no complaints of cough or shortness of breath. Dependent edema of the lower extremities is gradually improving. Patient is somewhat noncompliant with maintaining a straps on the lower extremities throughout the day. No further pulmonary follow-up needed at this time. Thank you. Objective - Vital Signs/Intake and Output Vital Signs (last 24 hours): Temp Pulse Resp BP Pulse Ox 97.7 F 68 20 120/63 92 L 11/14/17 07:48 11/14/17 08:20 11/14/17 07:48 11/14/17 08:20 11/14/17 07:48 - Medications Medications: Current Medications Acetaminophen (Tylenol 325mg Tab) 650 mg PO Q4 PRN PRN Reason: Pain, Mild (1-3) Last Admin: 11/14/17 09:09 Dose: 650 mg Amoxicillin (Amoxil 500 Mg Cap) 500 mg PO Q8 [facility] PRN Reason: Protocol Last Admin: 11/14/17 09:37 Dose: 500 mg Clopidogrel Bisulfate (Plavix) 75 mg PO DAILY [facility] Last Admin: 11/14/17 08:20 Dose: 75 mg Desoximetasone (Topicort 0.25%) 1 ea TOP BID [facility] Last Admin: 11/14/17 08:21 Dose: 1 u Enoxaparin Sodium (Lovenox) 40 mg SC DAILY [facility] PRN Reason: Protocol Last Admin: 11/14/17 08:19 Dose: 40 mg Famotidine (Pepcid) 20 mg PO DAILY@2100 [facility] Last Admin: 11/13/17 20:28 Dose: 20 mg Furosemide (Lasix) 20 mg PO BID [facility] Last Admin: 11/14/17 08:19 Dose: 20 mg Glipizide (Glucotrol Xl) 2.5 mg PO DAILY [facility] Last Admin: 11/14/17 08:21 Dose: 2.5 mg Isosorbide Mononitrate (Imdur Er) 30 mg PO DAILY [facility] Last Admin: 11/14/17 08:20 Dose: 30 mg Methimazole (Tapazole) 5 mg PO DAILY [facility] Last Admin: 11/14/17 08:20 Dose: 5 mg Metoprolol Tartrate (Lopressor) 25 mg PO Q12 [facility] Last Admin: 11/14/17 08:20 Dose: 25 mg Moxifloxacin HCl (Avelox) 400 mg PO DAILY [facility] PRN Reason: Protocol Last Admin: 11/14/17 09:37 Dose: Not Given - Labs Labs: 11/14/17 05:54 11/14/17 05:54 Assessment and Plan (1) 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
--- NOTE | 2017-11-14 20:49 | CP.PCM.PN ---
Subjective - Date & Time of Evaluation Date of Evaluation: 11/14/17 Time of Evaluation: 18:00 - Subjective Subjective: No complaints. Objective - Vital Signs/Intake and Output Vital Signs (last 24 hours): Temp Pulse Resp BP Pulse Ox 96.8 F L 89 20 146/67 95 11/14/17 20:24 11/14/17 20:34 11/14/17 20:24 11/14/17 20:24 11/14/17 20:24 - Medications Medications: Current Medications Acetaminophen (Tylenol 325mg Tab) 650 mg PO Q4 PRN PRN Reason: Pain, Mild (1-3) Last Admin: 11/14/17 09:09 Dose: 650 mg Amoxicillin (Amoxil 500 Mg Cap) 500 mg PO Q8 [facility] PRN Reason: Protocol Last Admin: 11/14/17 17:00 Dose: 500 mg Clopidogrel Bisulfate (Plavix) 75 mg PO DAILY [facility] Last Admin: 11/14/17 08:20 Dose: 75 mg Desoximetasone (Topicort 0.25%) 1 ea TOP BID [facility] Last Admin: 11/14/17 17:00 Dose: 1 u Enoxaparin Sodium (Lovenox) 40 mg SC DAILY [facility] PRN Reason: Protocol Last Admin: 11/14/17 08:19 Dose: 40 mg Famotidine (Pepcid) 20 mg PO DAILY@2100 [facility] Last Admin: 11/14/17 20:35 Dose: 20 mg Furosemide (Lasix) 20 mg PO BID [facility] Last Admin: 11/14/17 17:00 Dose: 20 mg Glipizide (Glucotrol Xl) 2.5 mg PO DAILY [facility] Last Admin: 11/14/17 08:21 Dose: 2.5 mg Isosorbide Mononitrate (Imdur Er) 30 mg PO DAILY [facility] Last Admin: 11/14/17 08:20 Dose: 30 mg Methimazole (Tapazole) 5 mg PO DAILY [facility] Last Admin: 11/14/17 08:20 Dose: 5 mg Metoprolol Tartrate (Lopressor) 25 mg PO Q12 [facility] Last Admin: 11/14/17 20:34 Dose: 25 mg - Labs Labs: 11/14/17 05:54 11/14/17 05:54 - Head Exam Head Exam: ATRAUMATIC - Eye Exam Eye Exam: Normal appearance - ENT Exam ENT Exam: Mucous Membranes Dry - Respiratory Exam Respiratory Exam: NORMAL BREATHING PATTERN - Cardiovascular Exam Cardiovascular Exam: +S1, +S2 - GI/Abdominal Exam GI & Abdominal Exam: Normal Bowel Sounds - Extremities Exam Extremities Exam: Pedal Edema Assessment and Plan (1) Anemia Assessment & Plan: H/H improved outpatient CBC and iron store evaluation Status: Acute (2) Leukopenia Assessment & Plan: resolved Status: Acute
--- NOTE | 2017-11-14 21:05 | CP.PCM.PN ---
Subjective - Date & Time of Evaluation Date of Evaluation: 11/14/17 Time of Evaluation: 22:22 - Subjective Subjective: Above noted Hbg 10 Objective - Vital Signs/Intake and Output Vital Signs (last 24 hours): Temp Pulse Resp BP Pulse Ox 96.8 F L 89 20 146/67 95 11/14/17 20:24 11/14/17 20:34 11/14/17 20:24 11/14/17 20:24 11/14/17 20:24 - Medications Medications: Current Medications Acetaminophen (Tylenol 325mg Tab) 650 mg PO Q4 PRN PRN Reason: Pain, Mild (1-3) Last Admin: 11/14/17 09:09 Dose: 650 mg Amoxicillin (Amoxil 500 Mg Cap) 500 mg PO Q8 [facility] PRN Reason: Protocol Last Admin: 11/14/17 17:00 Dose: 500 mg Clopidogrel Bisulfate (Plavix) 75 mg PO DAILY [facility] Last Admin: 11/14/17 08:20 Dose: 75 mg Desoximetasone (Topicort 0.25%) 1 ea TOP BID [facility] Last Admin: 11/14/17 17:00 Dose: 1 u Enoxaparin Sodium (Lovenox) 40 mg SC DAILY [facility] PRN Reason: Protocol Last Admin: 11/14/17 08:19 Dose: 40 mg Famotidine (Pepcid) 20 mg PO DAILY@2100 [facility] Last Admin: 11/14/17 20:35 Dose: 20 mg Furosemide (Lasix) 20 mg PO BID [facility] Last Admin: 11/14/17 17:00 Dose: 20 mg Glipizide (Glucotrol Xl) 2.5 mg PO DAILY [facility] Last Admin: 11/14/17 08:21 Dose: 2.5 mg Isosorbide Mononitrate (Imdur Er) 30 mg PO DAILY [facility] Last Admin: 11/14/17 08:20 Dose: 30 mg Methimazole (Tapazole) 5 mg PO DAILY [facility] Last Admin: 11/14/17 08:20 Dose: 5 mg Metoprolol Tartrate (Lopressor) 25 mg PO Q12 [facility] Last Admin: 11/14/17 20:34 Dose: 25 mg - Labs Labs: 11/14/17 05:54 11/14/17 05:54 - Respiratory Exam Respiratory Exam: NORMAL BREATHING PATTERN - Cardiovascular Exam Cardiovascular Exam: REGULAR RHYTHM - GI/Abdominal Exam GI & Abdominal Exam: Normal Bowel Sounds Assessment and Plan - Assessment and Plan (Free Text) Assessment: Low ext edema with blisters- etiol? Improved Venous Insufficiency Infectious? Serratia G- Leg elevation ID Podiatry oral Abx CAD CHF Diastolic Stress test myocardial scar/ ischemia LAD LV fxn 43% Refusing cardiac cath Plavix Nitrates CHAITANYA B-Chi Hx COPD L Pleural effusion CT scan improvement Pulmonary Anemia Fe defiiciency etiol? ASA?? As per hematology ASA d/c as outpt due to dec Hbg Stool for OB negative Pt refusing GI workup NIDDM Thyroid dx Endo
[2017-11-15] MEDS: GlipiZIDE 2.5 mg SR Tab PO SCH (08:27)
[2017-11-15] MEDS: methIMAzole 5 MG TAB PO SCH (08:28)
[2017-11-15] MEDS: Desoximetasone 0.25% Cream(15 gm) TOP SCH ×2 (08:28→16:41)
[2017-11-15] MEDS: Enoxaparin 40 mg Syringe SC SCH (08:28)
--- NOTE | 2017-11-15 09:04 | CP.PCM.PN ---
Subjective - Date & Time of Evaluation Date of Evaluation: 11/15/17 Time of Evaluation: 09:14 - Subjective Subjective: Podiatry Progress Note- Dr. Briseno 77 y.o female seen and evaluated at bedside with attending Dr. Briseno for bilateral leg swelling and draining blisters to the lower extremity. Patient is seen sitting at bedside in dependent position enjoying breakfast, in NAD, and AA0x3. Patient reports she is doing fine. Patient was seen at bedside with CHAITANYA off. Patient reports the same burning pain to the right LE at the site of blisters. She denies nausea, vomiting, shortness of breathe, chest pains, or chills. Denies other pedal complaints today. Objective - Vital Signs/Intake and Output Vital Signs (last 24 hours): Temp Pulse Resp BP Pulse Ox 97.9 F 69 20 121/58 L 99 11/15/17 08:01 11/15/17 08:27 11/15/17 08:01 11/15/17 08:27 11/15/17 08:01 - Medications Medications: Current Medications Acetaminophen (Tylenol 325mg Tab) 650 mg PO Q4 PRN PRN Reason: Pain, Mild (1-3) Last Admin: 11/14/17 22:27 Dose: 650 mg Amoxicillin (Amoxil 500 Mg Cap) 500 mg PO Q8 [facility] PRN Reason: Protocol Last Admin: 11/15/17 08:27 Dose: 500 mg Clopidogrel Bisulfate (Plavix) 75 mg PO DAILY [facility] Last Admin: 11/15/17 08:27 Dose: 75 mg Desoximetasone (Topicort 0.25%) 1 ea TOP BID [facility] Last Admin: 11/15/17 08:28 Dose: 1 u Enoxaparin Sodium (Lovenox) 40 mg SC DAILY [facility] PRN Reason: Protocol Last Admin: 11/15/17 08:28 Dose: 40 mg Famotidine (Pepcid) 20 mg PO DAILY@2100 [facility] Last Admin: 11/14/17 20:35 Dose: 20 mg Furosemide (Lasix) 20 mg PO BID [facility] Last Admin: 11/15/17 08:27 Dose: 20 mg Glipizide (Glucotrol Xl) 2.5 mg PO DAILY [facility] Last Admin: 11/15/17 08:27 Dose: 2.5 mg Isosorbide Mononitrate (Imdur Er) 30 mg PO DAILY [facility] Last Admin: 11/15/17 08:28 Dose: 30 mg Methimazole (Tapazole) 5 mg PO DAILY [facility] Last Admin: 11/15/17 08:28 Dose: 5 mg Metoprolol Tartrate (Lopressor) 25 mg PO Q12 [facility] Last Admin: 11/15/17 08:27 Dose: 25 mg - Labs Labs: 11/14/17 05:54 11/14/17 05:54 - Constitutional Appears: Well, Non-toxic, No Acute Distress - Extremities Exam Extremities Exam: absent: Calf Tenderness Additional comments: Patient is seen with legs in dependent position at bedside with CHAITANYA off and allevyn pad in place Vasc: DP pulses weakly palpable 1/4 b/l. Nonpalpable PT pulses secondary to edema, +2 pitting edema to bilateral LE, TG wnl, CFT < 4 sec to all digits Neuro: protective and gross sensation diminished Derm: lanced bullae #1 noted to left anterior leg with mild serous drainage, slight discoloration, no malodor, no fluctuance, wound base appears mixture of granular and fibrotic with fibrotic island centrally Lanced bullae #2 noted to dorsal forefoot filled with serous fluid refilling part of bullae, no ascending cellulitis, no acute clinical signs of infection. Both lanced bullae with no erythema, no ascending streaking, no increase calor, no purulence, no odor or clinical signs of infection appreciated No ulcerations or blisters noted to the right LE, previous ulcerations on right LE has resolved Ortho: no tenderness to palpation of posterior right leg, no tenderness to palpation of posterior left leg - Neurological Exam Neurological Exam: Alert, Awake, Oriented x3 - Psychiatric Exam Psychiatric exam: Normal Affect, Normal Mood Assessment and Plan - Assessment and Plan (Free Text) Assessment: 77 y.o female seen at bedside for bilateral lower extremity swelling with bullae secondary to CHF, improving Plan: -Patient seen and evaluated with attending Dr. Briseno -Charts, lab, vitals reviewed- Absent leukocytosis, WBC= 6.1 on 11/14/17, afebrile -Bilateral venous duplex negative for DVT -Left leg WCx: serratia marcescens, klebsiella oxytoca, enterococcus faecalis -Cleansed lanced blisters with saline solution and applied durafiber, allevyn pads, CHAITANYA -Continue local wound care - Durafiber, Allevyn pads, CHAITANYA -Patient has been noncompliant by removing dressings and sitting in dependent position Educated on elevation and keeping dressing intact to reduce swelling and reduce serous blisters formation to LE. -Encourage LE elevation, minimize legs in dependent position -Encourage patient to keep dressing on and CHAITANYA on -Continue abx per ID - patient refused further IV Rx, currently on PO -Podiatry will continue to follow while in house -Upon discharge, patient will follow with up Dr. Briseno for continue care of bilateral swelling and blister formations within 1 week. -Dressing change daily with calcium alignate dressing (such as maxosorb, silvercell) with dsd daily.
--- NOTE | 2017-11-15 11:37 | CP.PCM.PN ---
Subjective - Date & Time of Evaluation Date of Evaluation: 11/15/17 Time of Evaluation: 11:30 - Subjective Subjective: NO CHEST PAIN OR SOB FEELS LIKE SHE IMPROVED PHYSICALLY WITH SUBACUTE REHAB Objective - Vital Signs/Intake and Output Vital Signs (last 24 hours): Temp Pulse Resp BP Pulse Ox 97.9 F 69 20 121/58 L 99 11/15/17 08:01 11/15/17 08:27 11/15/17 08:01 11/15/17 08:27 11/15/17 08:01 - Medications Medications: Current Medications Acetaminophen (Tylenol 325mg Tab) 650 mg PO Q4 PRN PRN Reason: Pain, Mild (1-3) Last Admin: 11/14/17 22:27 Dose: 650 mg Amoxicillin (Amoxil 500 Mg Cap) 500 mg PO Q8 [facility] PRN Reason: Protocol Last Admin: 11/15/17 08:27 Dose: 500 mg Clopidogrel Bisulfate (Plavix) 75 mg PO DAILY [facility] Last Admin: 11/15/17 08:27 Dose: 75 mg Desoximetasone (Topicort 0.25%) 1 ea TOP BID [facility] Last Admin: 11/15/17 08:28 Dose: 1 u Enoxaparin Sodium (Lovenox) 40 mg SC DAILY [facility] PRN Reason: Protocol Last Admin: 11/15/17 08:28 Dose: 40 mg Famotidine (Pepcid) 20 mg PO DAILY@2100 [facility] Last Admin: 11/14/17 20:35 Dose: 20 mg Furosemide (Lasix) 20 mg PO BID [facility] Last Admin: 11/15/17 08:27 Dose: 20 mg Glipizide (Glucotrol Xl) 2.5 mg PO DAILY [facility] Last Admin: 11/15/17 08:27 Dose: 2.5 mg Isosorbide Mononitrate (Imdur Er) 30 mg PO DAILY [facility] Last Admin: 11/15/17 08:28 Dose: 30 mg Methimazole (Tapazole) 5 mg PO DAILY [facility] Last Admin: 11/15/17 08:28 Dose: 5 mg Metoprolol Tartrate (Lopressor) 25 mg PO Q12 [facility] Last Admin: 11/15/17 08:27 Dose: 25 mg - Labs Labs: 11/14/17 05:54 11/14/17 05:54 - Respiratory Exam Respiratory Exam: Clear to Ausculation Bilateral - Cardiovascular Exam Cardiovascular Exam: REGULAR RHYTHM, +S1, +S2 - Extremities Exam Additional comments: DECREASE IN LE EDEMA SORES ARE HEALING Assessment and Plan - Assessment and Plan (Free Text) Assessment: CAD-STABLE BILATERAL SMALL PLEURAL EFFUSIONS BILATERAL LEG EDEMA-IMPROVING DM WITH PERIPHERAL NEUROPATHY Plan: CONDTINUE METOPROLOL, ISOSORBIDE MONONITRATE, CLOPIDOGREL PATIENT WILL BE DISCHARGED AND I INSTRUCTED HER TO COME SEE ME IN ABOUT 2 WEEKS IN THE OFFICE
--- NOTE | 2017-11-15 19:32 | CP.PCM.PN ---
Subjective - Date & Time of Evaluation Date of Evaluation: 11/15/17 Time of Evaluation: 22:22 - Subjective Subjective: Above noted Objective - Vital Signs/Intake and Output Vital Signs (last 24 hours): Temp Pulse Resp BP Pulse Ox 97.0 F L 72 20 120/57 L 93 L 11/15/17 17:29 11/15/17 17:29 11/15/17 17:29 11/15/17 17:29 11/15/17 17:29 - Medications Medications: Current Medications Acetaminophen (Tylenol 325mg Tab) 650 mg PO Q4 PRN PRN Reason: Pain, Mild (1-3) Last Admin: 11/15/17 11:38 Dose: 650 mg Amoxicillin (Amoxil 500 Mg Cap) 500 mg PO Q8 [facility] PRN Reason: Protocol Last Admin: 11/15/17 16:40 Dose: 500 mg Clopidogrel Bisulfate (Plavix) 75 mg PO DAILY [facility] Last Admin: 11/15/17 08:27 Dose: 75 mg Desoximetasone (Topicort 0.25%) 1 ea TOP BID [facility] Last Admin: 11/15/17 16:41 Dose: 1 u Enoxaparin Sodium (Lovenox) 40 mg SC DAILY [facility] PRN Reason: Protocol Last Admin: 11/15/17 08:28 Dose: 40 mg Famotidine (Pepcid) 20 mg PO DAILY@2100 [facility] Last Admin: 11/14/17 20:35 Dose: 20 mg Furosemide (Lasix) 20 mg PO BID [facility] Last Admin: 11/15/17 16:41 Dose: 20 mg Glipizide (Glucotrol Xl) 2.5 mg PO DAILY [facility] Last Admin: 11/15/17 08:27 Dose: 2.5 mg Isosorbide Mononitrate (Imdur Er) 30 mg PO DAILY [facility] Last Admin: 11/15/17 08:28 Dose: 30 mg Methimazole (Tapazole) 5 mg PO DAILY [facility] Last Admin: 11/15/17 08:28 Dose: 5 mg Metoprolol Tartrate (Lopressor) 25 mg PO Q12 [facility] Last Admin: 11/15/17 08:27 Dose: 25 mg - Labs Labs: 11/14/17 05:54 11/14/17 05:54 - Respiratory Exam Respiratory Exam: NORMAL BREATHING PATTERN - Cardiovascular Exam Cardiovascular Exam: REGULAR RHYTHM - GI/Abdominal Exam GI & Abdominal Exam: Normal Bowel Sounds Assessment and Plan - Assessment and Plan (Free Text) Assessment: Low ext edema with blisters- etiol? Improved Venous Insufficiency Infectious? Serratia G- Leg elevation ID Podiatry oral Abx CAD CHF Diastolic Stress test myocardial scar/ ischemia LAD LV fxn 43% Refusing cardiac cath Plavix Nitrates CHAITANYA B-Chi Hx COPD L Pleural effusion CT scan improvement Pulmonary Anemia Fe defiiciency etiol? ASA?? As per hematology ASA d/c as outpt due to dec Hbg Stool for OB negative Pt refusing GI workup NIDDM Thyroid dx Endo
[2017-11-16 07:48] VITALS: BP 126/62; PULSE 75; TEMP 97.3; O2SAT 95
[2017-11-16] MEDS: Enoxaparin 40 mg Syringe SC SCH (08:35)
[2017-11-16] MEDS: GlipiZIDE 2.5 mg SR Tab PO SCH (08:40)
[2017-11-16] MEDS: methIMAzole 5 MG TAB PO SCH (08:41)
[2017-11-16] MEDS: Desoximetasone 0.25% Cream(15 gm) TOP SCH (08:42)
--- NOTE | 2017-11-16 11:56 | CP.PCM.PN ---
Subjective - Date & Time of Evaluation Date of Evaluation: 11/16/17 Time of Evaluation: 09:00 - Subjective Subjective: Podiatry Progress Note- Dr. Briseno 77 y.o female seen and evaluated at bedside for bilaterally LE swelling with blisters. Patient is seen resting in bed, in NAD, and AA0x3. Patient is seen again without dressing to the lower extremity and no CHAITANYA compression. Patient reports that she is feeling well. She will be going home today. Patient denies acute overnight events. Denies nausea, fever, shortness of breath, chest pain, chills or diarrhea. Patient reports that she will change her dressing daily as instructed and follow up with Dr. Briseno in his office within 1 week. She will call for the appointment. Patient has no new pedal complaints. Objective - Vital Signs/Intake and Output Vital Signs (last 24 hours): Temp Pulse Resp BP Pulse Ox 97.3 F L 75 20 126/62 95 11/16/17 07:47 11/16/17 08:36 11/16/17 07:47 11/16/17 08:40 11/16/17 07:47 - Medications Medications: Current Medications Acetaminophen (Tylenol 325mg Tab) 650 mg PO Q4 PRN PRN Reason: Pain, Mild (1-3) Last Admin: 11/16/17 10:54 Dose: 650 mg Amoxicillin (Amoxil 500 Mg Cap) 500 mg PO Q8 [facility] PRN Reason: Protocol Last Admin: 11/16/17 08:35 Dose: 500 mg Clopidogrel Bisulfate (Plavix) 75 mg PO DAILY [facility] Last Admin: 11/16/17 08:35 Dose: 75 mg Desoximetasone (Topicort 0.25%) 1 ea TOP BID [facility] Last Admin: 11/16/17 08:42 Dose: 1 u Enoxaparin Sodium (Lovenox) 40 mg SC DAILY [facility] PRN Reason: Protocol Last Admin: 11/16/17 08:35 Dose: 40 mg Famotidine (Pepcid) 20 mg PO DAILY@2100 [facility] Last Admin: 11/15/17 20:30 Dose: 20 mg Furosemide (Lasix) 20 mg PO BID [facility] Last Admin: 11/16/17 08:40 Dose: 20 mg Glipizide (Glucotrol Xl) 2.5 mg PO DAILY [facility] Last Admin: 11/16/17 08:40 Dose: 2.5 mg Isosorbide Mononitrate (Imdur Er) 30 mg PO DAILY [facility] Last Admin: 11/16/17 08:35 Dose: 30 mg Methimazole (Tapazole) 5 mg PO DAILY [facility] Last Admin: 11/16/17 08:41 Dose: 5 mg Metoprolol Tartrate (Lopressor) 25 mg PO Q12 [facility] Last Admin: 11/16/17 08:36 Dose: 25 mg - Labs Labs: 11/14/17 05:54 11/14/17 05:54 - Constitutional Appears: Well, Non-toxic, No Acute Distress - Extremities Exam Extremities Exam: absent: Calf Tenderness Additional comments: Vasc: DP pulses weakly palpable 1/4 b/l. Nonpalpable PT pulses secondary to edema, +2 pitting edema to bilateral LE, TG wnl, CFT < 4 sec to all digits Neuro: protective and gross sensation diminished Derm: lanced bullae #1 noted to left anterior leg with mild serous drainage, slight discoloration, no malodor, no fluctuance, wound base appears mixture of granular and fibrotic with fibrotic island centrally Lanced bullae #2 noted to dorsal forefoot filled with serous fluid refilling part of bullae, no ascending cellulitis, no acute clinical signs of infection. Both lanced bullae with no erythema, no ascending streaking, no increase calor, no purulence, no odor or clinical signs of infection appreciated No ulcerations or blisters noted to the right LE, previous ulcerations on right LE has resolved Ortho: no tenderness to palpation of posterior right leg, no tenderness to palpation of posterior left leg Assessment and Plan - Assessment and Plan (Free Text) Assessment: 77 y.o female seen at bedside for bilateral lower extremity swelling with bullae secondary to CHF, improving Plan: -Patient seen and evaluated -Charts, lab, vitals reviewed- Absent leukocytosis, WBC= 6.1 on 11/14/17, afebrile -Bilateral venous duplex negative for DVT -Left leg WCx: serratia marcescens, klebsiella oxytoca, enterococcus faecalis -Cleansed lanced blisters with saline solution and applied durafiber, allevyn pads, CHAITANYA -Continue local wound care - Durafiber, Allevyn pads, CHAITANYA -Patient has been noncompliant by removing dressings and sitting in dependent position Educated on elevation and keeping dressing intact to reduce swelling and reduce serous blisters formation to LE. -Encourage LE elevation, minimize legs in dependent position -Encourage patient to keep dressing on and CHAITANYA on -Continue abx per ID - patient refused further IV Rx, currently on PO -Podiatry will continue to follow while in house -Upon discharge, patient will follow with up Dr. Briseno for continue care of bilateral swelling and blister formations within 1 week. -Dressing change daily with calcium alignate dressing (such as maxosorb, silvercell) with dsd daily. -Patient given dressing for home to last a few days -Instructed to see Dr. Briseno within 1 week -Patient will make the appointment. Card given to patient.
--- NOTE | 2017-11-16 12:08 | CP.PCM.PN ---
Subjective - Date & Time of Evaluation Date of Evaluation: 11/16/17 Time of Evaluation: 10:45 - Subjective Subjective: NO CHEST PAIN OR SOB PATIENT BELIEVES SHE BENEFITTED FROM REHAB Objective - Vital Signs/Intake and Output Vital Signs (last 24 hours): Temp Pulse Resp BP Pulse Ox 97.3 F L 75 20 126/62 95 11/16/17 07:47 11/16/17 08:36 11/16/17 07:47 11/16/17 08:40 11/16/17 07:47 - Medications Medications: Current Medications Acetaminophen (Tylenol 325mg Tab) 650 mg PO Q4 PRN PRN Reason: Pain, Mild (1-3) Last Admin: 11/16/17 10:54 Dose: 650 mg Amoxicillin (Amoxil 500 Mg Cap) 500 mg PO Q8 [facility] Reason: Protocol Last Admin: 11/16/17 08:35 Dose: 500 mg Clopidogrel Bisulfate (Plavix) 75 mg PO DAILY [facility] Last Admin: 11/16/17 08:35 Dose: 75 mg Desoximetasone (Topicort 0.25%) 1 ea TOP BID [facility] Last Admin: 11/16/17 08:42 Dose: 1 u Enoxaparin Sodium (Lovenox) 40 mg SC DAILY [facility] PRN Reason: Protocol Last Admin: 11/16/17 08:35 Dose: 40 mg Famotidine (Pepcid) 20 mg PO DAILY@2100 [facility] Last Admin: 11/15/17 20:30 Dose: 20 mg Furosemide (Lasix) 20 mg PO BID [facility] Last Admin: 11/16/17 08:40 Dose: 20 mg Glipizide (Glucotrol Xl) 2.5 mg PO DAILY [facility] Last Admin: 11/16/17 08:40 Dose: 2.5 mg Isosorbide Mononitrate (Imdur Er) 30 mg PO DAILY [facility] Last Admin: 11/16/17 08:35 Dose: 30 mg Methimazole (Tapazole) 5 mg PO DAILY [facility] Last Admin: 11/16/17 08:41 Dose: 5 mg Metoprolol Tartrate (Lopressor) 25 mg PO Q12 [facility] Last Admin: 11/16/17 08:36 Dose: 25 mg - Labs Labs: 11/14/17 05:54 11/14/17 05:54 - Respiratory Exam Respiratory Exam: Clear to Ausculation Bilateral - Cardiovascular Exam Cardiovascular Exam: REGULAR RHYTHM, +S1, +S2 - Extremities Exam Additional comments: DECREASE IN LE LEG EDEMA AND SKIN ORES ARE HEALING Assessment and Plan - Assessment and Plan (Free Text) Assessment: CAD BILATERAL PLEURAL EFFUSIONS VENOUS INSUFFICIENCY WITH BILATERAL LE LEG EDEMA DM Plan: THE PATIENT WILL BE DISCHARGED TODAY ON METOPROLOL, ISOSORBIDE MONONITRATE, CLOPIDOGREL AND FUROSEMIDE I WILL SEE IN MY OFFICE IN ABOUT 2 WEEKS
--- NOTE | 2017-11-16 12:27 | CP.PCM.PN ---
Subjective - Date & Time of Evaluation Date of Evaluation: 11/16/17 Time of Evaluation: 12:22 - Subjective Subjective: Has done well in TCU. Feels improved. No c/o SOB. No chest pains. No cough. Still has ++ dependant edema. No cyanosis. May benefit from [facility] [place]. Objective - Vital Signs/Intake and Output Vital Signs (last 24 hours): Temp Pulse Resp BP Pulse Ox 97.3 F L 75 20 126/62 95 11/16/17 07:47 11/16/17 08:36 11/16/17 07:47 11/16/17 08:40 11/16/17 07:47 - Medications Medications: Current Medications Acetaminophen (Tylenol 325mg Tab) 650 mg PO Q4 PRN PRN Reason: Pain, Mild (1-3) Last Admin: 11/16/17 10:54 Dose: 650 mg Amoxicillin (Amoxil 500 Mg Cap) 500 mg PO Q8 [facility] PRN Reason: Protocol Last Admin: 11/16/17 08:35 Dose: 500 mg Clopidogrel Bisulfate (Plavix) 75 mg PO DAILY [facility] Last Admin: 11/16/17 08:35 Dose: 75 mg Desoximetasone (Topicort 0.25%) 1 ea TOP BID [facility] Last Admin: 11/16/17 08:42 Dose: 1 u Enoxaparin Sodium (Lovenox) 40 mg SC DAILY [facility] PRN Reason: Protocol Last Admin: 11/16/17 08:35 Dose: 40 mg Famotidine (Pepcid) 20 mg PO DAILY@2100 [facility] Last Admin: 11/15/17 20:30 Dose: 20 mg Furosemide (Lasix) 20 mg PO BID [facility] Last Admin: 11/16/17 08:40 Dose: 20 mg Glipizide (Glucotrol Xl) 2.5 mg PO DAILY [facility] Last Admin: 11/16/17 08:40 Dose: 2.5 mg Isosorbide Mononitrate (Imdur Er) 30 mg PO DAILY [facility] Last Admin: 11/16/17 08:35 Dose: 30 mg Methimazole (Tapazole) 5 mg PO DAILY [facility] Last Admin: 11/16/17 08:41 Dose: 5 mg Metoprolol Tartrate (Lopressor) 25 mg PO Q12 [facility] Last Admin: 11/16/17 08:36 Dose: 25 mg - Labs Labs: 11/14/17 05:54 11/14/17 05:54 Assessment and Plan (1) 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
--- NOTE | 2017-11-16 21:25 | CP.PCM.PN ---
Subjective - Date & Time of Evaluation Date of Evaluation: 11/16/17 Time of Evaluation: 22:22 - Subjective Subjective: Above noted Objective - Vital Signs/Intake and Output Vital Signs (last 24 hours): Temp Pulse Resp BP Pulse Ox 97.3 F L 75 20 126/62 95 11/16/17 07:47 11/16/17 08:36 11/16/17 07:47 11/16/17 08:40 11/16/17 07:47 - Labs Labs: 11/14/17 05:54 11/14/17 05:54 - Respiratory Exam Respiratory Exam: NORMAL BREATHING PATTERN - Cardiovascular Exam Cardiovascular Exam: REGULAR RHYTHM - GI/Abdominal Exam GI & Abdominal Exam: Normal Bowel Sounds Assessment and Plan - Assessment and Plan (Free Text) Assessment: Low ext edema with blisters- etiol? Improved Venous Insufficiency Infectious? Serratia G- Leg elevation ID Podiatry oral Abx CAD CHF Diastolic Stress test myocardial scar/ ischemia LAD LV fxn 43% Refusing cardiac cath Plavix Nitrates CHAITANYA B-Chi Hx COPD L Pleural effusion CT scan improvement Pulmonary Anemia Fe defiiciency etiol? ASA?? As per hematology ASA d/c as outpt due to dec Hbg Stool for OB negative Pt refusing GI workup NIDDM Thyroid dx Endo
== END 2017-11-16 13:10 | disposition home or self-care (01) | DRG 300 ==
LOC: H.TCU 16:53
PROVIDERS: ADMIT Family Medicine Geriatric Medicine; ATTEND Family Medicine Geriatric Medicine
PROC: F08Z1FZ Dressing Techniques Treatment using Assistive, Adaptive, Supportive or Protective Equipment (ICD-10-PCS; principal; 2017-11-08)
PROC: F07Z9FZ Gait Training/Functional Ambulation Treatment using Assistive, Adaptive, Supportive or Protective Equipment (ICD-10-PCS; 2017-11-08)
PROC: F07L6FZ Therapeutic Exercise Treatment of Musculoskeletal System - Lower Back / Lower Extremity using Assistive, Adaptive, Supportive or Protective Equipment (ICD-10-PCS; 2017-11-08)
DX: I87.312 Chronic venous hypertension (idiopathic) with ulcer of left lower extremity (principal); L97.929 Non-pressure chronic ulcer of unspecified part of left lower leg with unspecified severity; E11.22 Type 2 diabetes mellitus with diabetic chronic kidney disease; E11.42 Type 2 diabetes mellitus with diabetic polyneuropathy; I13.0 Hypertensive heart and chronic kidney disease with heart failure and stage 1 through stage 4 chronic kidney disease, or unspecified chronic kidney disease; I50.32 Chronic diastolic (congestive) heart failure; J98.11 Atelectasis; I87.2 Venous insufficiency (chronic) (peripheral); N18.9 Chronic kidney disease, unspecified; E78.00 Pure hypercholesterolemia, unspecified; I25.10 Atherosclerotic heart disease of native coronary artery without angina pectoris; Z91.19 Patient's noncompliance with other medical treatment and regimen; L30.9 Dermatitis, unspecified; J44.9 Chronic obstructive pulmonary disease, unspecified; D50.9 Iron deficiency anemia, unspecified; Z87.891 Personal history of nicotine dependence; E05.90 Thyrotoxicosis, unspecified without thyrotoxic crisis or storm; R23.8 Other skin changes; D72.819 Decreased white blood cell count, unspecified; Z53.20 Procedure and treatment not carried out because of patient's decision for unspecified reasons

== ENCOUNTER 2017-12-14 12:43 | Inpatient (IN) | payer MEDICARE, OTHER ==
[2017-12-14 12:44] VITALS: BMI 28.1
[2017-12-14 16:21] LABS: BASO # 0.1 K/uL (0.0-0.2); EOS % 0.5 % (0.0-4.0); HEMOGLOBIN 8.7 g/dL (12.0-16.0); LYMPH # 0.6 K/uL (1.0-4.3); LYMPH % 7.4 % (20.0-40.0); MEAN CELL VOLUME 84.5 fl (81.0-99.0); MEAN CORPUSCULAR HEMOGLOBIN 27.6 pg (27.0-31.0); MEAN CORPUSCULAR HGB CONC 32.6 g/dL (33.0-37.0); MEAN PLATELET VOLUME 7.9 fl (7.2-11.7); MONO # 0.8 K/uL (0.0-0.8); NEUT # 6.2 K/uL (1.8-7.0); NEUT % 81.1 % (50.0-75.0); NRBC % 0.2 % (0.0-0.0); PLATELET COUNT 359 K/uL (130-400); RBC 3.17 Mil/uL (3.80-5.20); WHITE BLOOD COUNT 7.6 K/uL (4.8-10.8)
[2017-12-14 16:35] LABS: ALB/GLOB RATIO 1.2 (1.0-2.1); ALBUMIN 3.7 g/dL (3.5-5.0); ALT/SGPT 29 U/L (9-52); AST/SGOT 21 U/L (14-36); BLOOD UREA NITROGEN 34 mg/dl (7-17); CALCIUM 9.5 mg/dL (8.4-10.2); GFR AFRICAN-AMERICAN > 60; GFR NON-AFRICAN AMERICAN 53
--- NOTE | 2017-12-14 17:06 | RAD ---
PROCEDURE: CHEST RADIOGRAPH, 1 VIEW HISTORY: LE edema COMPARISON: Chest radiograph dated 11/05/2017. FINDINGS: LUNGS: Pulmonary vascular congestion. Bibasilar atelectasis. PLEURA: Small bilateral pleural effusions. No appreciable pneumothorax. CARDIOVASCULAR: Atherosclerotic aortic calcifications. Cardiomediastinal silhouette stably enlarged. OSSEOUS STRUCTURES: Unchanged. VISUALIZED UPPER ABDOMEN: Normal. OTHER FINDINGS: None. IMPRESSION: Pulmonary vascular congestion and small bilateral pleural effusions.
--- NOTE | 2017-12-14 17:49 | CP.PCM.CON ---
History of Present Illness - History of Present Illness History of Present Illness: 77F familiar to our services seen in ED for multiple chronic ruptured blisters, some with superficial underlying wounds. Patient was last seen in the hospital one month ago where she continually removed daily compressive dressings and was non-compliant with keeping her feet elevated as instructed. Patient presents today with many more ruptured blisters than at last discharge. She states that she tried to make a follow up appointment with Dr. Briseno but was unable to. She states that her pain today is 7/10. States that many of the blisters have burst, drained clear fluid, and hardened over. She denies any further pedal complaints at this time. Denies any recent N/V/F/C/CP/SOB/D/posterior calf pain when squeezed Review of Systems - Review of Systems Review of Systems: ROS as per HPI Past Patient History - Infectious Disease Hx of Infectious Diseases: None - Past Medical History & Family History Past Medical History?: Yes - Past Social History Smoking Status: Former Smoker - CARDIAC Hx Congestive Heart Failure: Yes Hx Hypercholesterolemia: Yes Hx Hypertension: Yes Hx Peripheral Edema: Yes - PULMONARY Hx Bronchitis: Yes Hx Pneumonia: Yes - NEUROLOGICAL Hx Neurological Disorder: No - HEENT Hx HEENT Problems: No - RENAL Hx Chronic Kidney Disease: Yes - ENDOCRINE/METABOLIC Hx Hyperthyroidism: Yes - HEMATOLOGICAL/ONCOLOGICAL Hx Human Immunodeficiency Virus (HIV): No - INTEGUMENTARY Hx Dermatological Problems: No - MUSCULOSKELETAL/RHEUMATOLOGICAL Hx Falls: No - GASTROINTESTINAL Hx Gastrointestinal Disorders: No - GENITOURINARY/GYNECOLOGICAL Hx Genitourinary Disorders: No - PSYCHIATRIC Hx Psychophysiologic Disorder: No Hx Substance Use: No - SURGICAL HISTORY Hx Appendectomy: Yes - ANESTHESIA Hx Anesthesia: Yes Hx Anesthesia Reactions: No Hx Malignant Hyperthermia: No Meds Allergies/Adverse Reactions: Allergies Allergy/AdvReac Type Severity Reaction Status Date / Time No Known Allergies Allergy Verified 11/08/17 15:56 Physical Exam - Constitutional Appears: Well, Non-toxic, No Acute Distress - Extremities Exam Additional comments: LE focused exam: Vasc: DP pulses weakly palpable 1/4 b/l. Nonpalpable PT pulses secondary to edema, +2 pitting edema to bilateral LE, TG wnl, CFT < 4 sec to all digits. Neuro: Epicritic and protective sensation grossly intact b/l Derm: Multiple chronic, lanced bullae noted to b/l legs with evidence of serous drainage. Most bullae sites are crusted over with no clinical signs of infection or cellulitic changes. One superficial open lysed blister measuring roughly 2 cm x 2 cm x 0.1 cm seen on posteriomedial left leg. No drainage, no malodor, minimal periwound erythema noted. Second, larger open blister noted to posterior right calf measuring roughly 8 cm x 5 cm x 0.2 cm. No drainage, no malodor, minimal periwound erythema noted. Ortho: Helene's sign negative b/l. All open blister sites painful to palpation - Neurological Exam Neurological exam: Alert, Oriented x3 - Psychiatric Exam Psychiatric exam: Normal Affect, Normal Mood Results - Vital Signs Recent Vital Signs: Last Vital Signs Temp 98.0 F 12/14/17 12:47 Pulse 89 12/14/17 12:47 Resp 20 12/14/17 12:47 BP Pulse Ox 94 L 12/14/17 12:47 - Labs Result Diagrams: 12/14/17 16:18 12/14/17 16:18 Labs: Laboratory Results - last 24 hr 12/14/17 12/14/17 12/14/17 16:18 16:18 16:18 WBC 7.6 RBC 3.17 L Hgb 8.7 L Hct 26.8 L MCV 84.5 MCH 27.6 MCHC 32.6 L RDW 20.0 H Plt Count 359 MPV 7.9 Neut % (Auto) 81.1 H Lymph % (Auto) 7.4 L [place] % (Auto) 10.0 Eos % (Auto) 0.5 Baso % (Auto) 1.0 Neut # (Auto) 6.2 Lymph # (Auto) 0.6 L [place] # (Auto) 0.8 Eos # (Auto) 0.0 Baso # (Auto) 0.1 Sodium 144 Potassium 3.9 Chloride 105 Carbon Dioxide 22 Anion Gap 21 H BUN 34 H Creatinine 1.0 Est GFR ( Amer) > 60 Est GFR (Non-Af Amer) 53 Random Glucose 132 H Calcium 9.5 Total Bilirubin 1.1 AST 21 ALT 29 Alkaline Phosphatase 77 NT-Pro-B Natriuret Pep 36728 H Total Protein 6.9 Albumin 3.7 Globulin 3.1 Albumin/Globulin Ratio 1.2 Assessment & Plan - Assessment and Plan (Free Text) Assessment: 77F familiar to our services seen in ED for multiple chronic ruptured blisters, some with superficial underlying wounds Plan: Patient seen and evaluated Plan discussed with attending Dr. Briseno Labs, charts, vitals reviewed Afebrile, absent leukocytosis Both legs cleansed with normal saline Open wounds dressed with Allevyn foam pad Remaining wounds left open to air for time being as patient refused compressive dressings Will attempt to apply compressive dressings tomorrow morning Patient to be admitted to hospital ID consult placed No plan for surgical intervention at this time Podiatry will continue to follow while patient in house - Date & Time Date: 12/14/17 Time: 17:57
[2017-12-14 18:06] LABS: LYMPHOCYTE 10 % (20-50); MONOCYTE 7 % (0-10); NEUTROPHIL 83 % (42-75); TOTAL CELLS COUNTED 100
[2017-12-14 18:07] LABS: ANISOCYTOSIS SLIGHT; HYPOCHROMIC SLIGHT; LARGE PLATELETS PRESENT; OVALOCYTES SLIGHT; PLATELET ESTIMATE NORMAL (NORMAL); POIKILOCYTOSIS SLIGHT; SCHISTOCYTES SLIGHT
--- NOTE | 2017-12-14 19:43 | ED PDOC ---
Lower Extremity Pain/Injury Time Seen by Provider: 12/14/17 14:01 Chief Complaint (Nursing): Lower Extremity Problem/Injury Chief Complaint (Provider): Lower Extremity Problem History Per: Patient History/Exam Limitations: no limitations Onset/Duration Of Symptoms: Days (x4) Current Symptoms Are (Timing): Still Present Additional Complaint(s): 77 y/o female with a pmhx of diabetes, CHF, and wounds to b/l lower extremities , who presents to the ED due to lower extremity edema and wounds. Patient was recently admitted to hospital and discharged on 12/11 regarding lower extremity edema and wounds. Reports that she lives on her own and has difficulty taking care of herself and ambulating secondary to lower extremity wounds and edema. States she has several follow up appointments with Academic Affairs Manager and [employer], but is unsure how she will be able to attend them due to difficulty ambulating. Patient admits to history of diabetic neuropathy. Denies any fevers, chills, chest pain, shortness of breath, headache, nausea, or vomiting. PMD: Jimbo Young Past Medical History Reviewed: Historical Data, Nursing Documentation, Vital Signs Vital Signs: Last Vital Signs Temp 98.0 F 12/14/17 19:05 Pulse 85 12/14/17 19:05 Resp 16 12/14/17 19:05 BP 129/77 12/14/17 19:05 Pulse Ox 100 12/14/17 19:05 - Medical History PMH: Bronchitis, CHF, Diabetes, HTN, Hypercholesterolemia, Hyperthyroidism, Kidney Stones (kidney stone removal), Peripheral Edema, Pneumonia, Chronic Kidney Disease Denies: HIV - Surgical History Surgical History: Appendectomy - Family History Family History: States: Unknown Family Hx - Home Medications Home Medications: Ambulatory Orders Medication Instructions Recorded Famotidine [Pepcid] 20 mg PO DAILY 11/02/17 Metoprolol Tartrate [Lopressor] 25 mg PO Q12 11/02/17 methIMAzole [Tapazole] 5 mg PO DAILY 11/02/17 Acetaminophen [Tylenol 325mg tab] 650 mg PO Q4 PRN tab 11/08/17 Clopidogrel [Plavix] 75 mg PO DAILY tab 11/08/17 Desoximetasone 0.25% [Topicort 1 ea TOP BID tube 11/08/17 0.25%] GlipiZIDE SR [Glucotrol XL] 2.5 mg PO DAILY tab 11/08/17 Isosorbide Mononitrate ER [Imdur 30 mg PO DAILY tab 11/08/17 ER] Furosemide [Lasix] 40 mg PO DAILY 11/16/17 - Allergies Allergies/Adverse Reactions: Allergies Allergy/AdvReac Type Severity Reaction Status Date / Time No Known Allergies Allergy Verified 11/08/17 15:56 Review of Systems ROS Statement: Except As Marked, All Systems Reviewed And Found Negative Constitutional: Negative for: Fever, Chills Cardiovascular: Negative for: Chest Pain Respiratory: Negative for: Shortness of Breath Gastrointestinal: Negative for: Nausea, Vomiting Musculoskeletal: Positive for: Other (b/l LE edema) Skin: Positive for: Lesions (b/l lower extremities) Neurological: Negative for: Headache Physical Exam - Reviewed Nursing Documentation Reviewed: Yes Vital Signs Reviewed: Yes - Physical Exam Comments: GENERAL APPEARANCE: Patient is awake, alert, oriented x 3, in no acute distress. Laying comfortably in bed, ill-kempt in appearance. Noted dog hair on clothes. SKIN: Warm, dry; (-) cyanosis. CHEST AND RESPIRATORY: (-) accessory muscle use. Lungs: (-) rales, (-) rhonchi , (-) wheezes, (-) rub; breath sounds equal bilaterally. HEART AND CARDIOVASCULAR: (-) irregularity; (-) murmur, (-) gallop, (-) rub. BILATERAL LOWER EXTREMITIES: (+) multiple wounds and superficial ulcers, (+) pitting edema, (-) erythema, (-) acute cellulitis, (-) discharge. Weak pulses. NEURO AND PSYCH: Mental status as above; (-) motor or sensory deficits. - Laboratory Results Result Diagrams: 12/14/17 16:18 12/14/17 16:18 - ECG O2 Sat by Pulse Oximetry: 100 (RA) Pulse Ox Interpretation: Normal Medical Decision Making Medical Decision Making: Previous medical records reviewed, patient's last admission reviewed : during her admission she was seen by podiatry, was receiving wound care, her LE edema and ulcers were attributed to CHF and PVI, was being treated with PO amoxicillin and moxifloxacin as she refused further IV antibiotics, US dopp b/l LE was done and showed (-) dvt, then on 11/02/17 she had wound cxs to b/l legs - revealed +Serratia Marcescens, Klebsiella Oxytoca, Enterococcus Faecalis. Time: 15:55 Plan: --CMP --CBC --IV Insertion --Reevaluation Case discussed with Podiatry Resident Maurice. Will come and evaluate patient. Time: 16:27 --EKG --BNP --CXR --US Duplex LE --Reevaluation Patient seen and evaluated by Resident Maurcie. States the skyler had 2 ulcers when he last saw her, and her symptoms have since worsened. Time: 17:[address] Young. Recommends inpatient admission due to the LE edema, ulcers related to CHF, and venous insufficiency. Bridge orders placed. Consults placed to Dr. Briseno of podiatry, manager social responsibility, and physical therapy. Patient is agreeable to inpatient admission. EKG : NSR at 95 bpm, no acute ST changes. CXR : pulm vascular congestion, small b/l pleural effusion Labs reviewed : wbc 7.6, hgb 8.7, bnp 13,900 Lasix 20 mg IVP ordered. Scribe Attestation: Documented by Ervin Mena, acting as a scribe for Rupa Fuentes PA-C. Provider Scribe Attestation: All medical record entries made by the Scribe were at my direction and personally dictated by me. I have reviewed the chart and agree that the record accurately reflects my personal performance of the history, physical exam, medical decision making, and the department course for this patient. I have also personally directed, reviewed, and agree with the discharge instructions and disposition. Disposition - Clinical Impression Clinical Impression: Diabetic neuropathy, Edema of both lower extremities due to peripheral venous insufficiency, CHF exacerbation - Patient ED Disposition Is Patient to be Admitted: Yes Counseled Patient/Family Regarding: Studies Performed, Diagnosis - Disposition Disposition Time: 17:06 Condition: STABLE - Pt Status Changed To: Hospital Disposition Of: Inpatient - Admit Certification Admit to Inpatient:: After my assessment, the patient will require hospitalization for at least two midnights. This is because of the severity of symptoms shown, intensity of services needed, and/or the medical risk in this patient being treated as an outpatient. - PA / WILDLIFE MANAGER / Resident Statement MD/ has reviewed & agrees with the documentation as recorded.
--- NOTE | 2017-12-14 21:30 | US ---
EXAM: US Duplex Bilateral Lower Extremity Veins CLINICAL HISTORY: 77 years old, female; Pain; Leg, lower; Bilateral; Additional info: Edema TECHNIQUE: Real-time duplex ultrasound scan of the bilateral lower extremity veins integrating B-mode two-dimensional vascular structure, Doppler spectral analysis, color flow Doppler imaging and compression. COMPARISON: US - DUPLEX LOWER EXTRM VEIN BILAT 2017-11-02 19:12 FINDINGS: Limitations: Nonvisualization of right distal superficial femoral, popliteal, posterior tibial; left popliteal, posterior tibial veins due to edema. Right deep veins: Normal color and spectral Doppler flow. Normal compressibility. No deep vein thrombosis from common femoral to mid superficial femoral vein. Right superficial veins: Unremarkable. Left deep veins: Normal color and spectral Doppler flow. Normal compressibility. No deep vein thrombosis from common femoral to distal superficial femoral vein. Left superficial veins: Unremarkable. Soft tissues: Edema within soft tissues. IMPRESSION: 1. No evidence of DVT within visualized lower extremities. 2. Incidental/non-acute findings are described above.
[2017-12-15 07:36] LABS: CK-MB 1.29 ng/mL (0.0-3.38); TROPONIN I 0.034 ng/mL (0.00-0.120)
[2017-12-15] MEDS: GlipiZIDE 2.5 mg SR Tab PO SCH (08:54)
[2017-12-15] MEDS: Enoxaparin 30 mg Syringe SC SCH (08:59)
[2017-12-15] MEDS: methIMAzole 5 MG TAB PO SCH (08:59)
--- NOTE | 2017-12-15 10:36 | CARD ---
APPROVED REPORT EKG Measurement Heart [id number] <Conclusion> Normal sinus rhythm Nonspecific ST and T wave abnormality Abnormal ECG
--- NOTE | 2017-12-15 11:56 | CP.PCM.CON ---
History of Present Illness - History of Present Illness History of Present Illness: THE PATIENT IS A 77 YEAR OLD FEMALE WHO HAS A HISTORY OF CAD, HYPERTENSION, CHRONIC MILD DIASTOLIC CHF, DM AND VENOUS INSUFFICIENCY. SHE WAS IN THE HOSPITAL RECENTLY FOR INFECTED LEG ULCERS FROM VENOUS INSUFFICIENCY WITH LEG EDEMA. SHE IMPROVED WITH IV ANTIBIOTICS AND DIURETICS. SHE DID NOT FOLLOW-UP WITH THE BAND SPLICER AND DID NOT CLOSELY FOLLOW DIRECTION TO ELEVATE HER LEGS, ETC. SHE NOW STATES THAT SHE CONTINUED TO HAVE LOWER EXTREMITY EDEMA AND DEVELOPED ULCERS AND THEY BECAME VERY PAINFUL CAUSING DIFFICULTY WALKING SO SHE CAME TO THE ER AND WAS ADMITTED. SHE DENIES CHEST PAIN. SHE DOES GET HARLEY BUT THIS IS MOST PROBABLY FROM DECONDITIONING. Past Patient History - Infectious Disease Hx of Infectious Diseases: None - Past Medical History & Family History Past Medical History?: Yes - Past Social History Smoking Status: Former Smoker - CARDIAC Hx Congestive Heart Failure: Yes Hx Hypercholesterolemia: Yes Hx Hypertension: Yes Hx Peripheral Edema: Yes - PULMONARY Hx Bronchitis: Yes Hx Pneumonia: Yes - NEUROLOGICAL Hx Neurological Disorder: No - HEENT Hx HEENT Problems: No - RENAL Hx Chronic Kidney Disease: Yes Hx Kidney Stones: Yes (kidney stone removal) - ENDOCRINE/METABOLIC Hx Hyperthyroidism: Yes - HEMATOLOGICAL/ONCOLOGICAL Hx AIDS: No Hx Human Immunodeficiency Virus (HIV): No - INTEGUMENTARY Hx Dermatological Problems: No - MUSCULOSKELETAL/RHEUMATOLOGICAL Hx Falls: No - GASTROINTESTINAL Hx Gastrointestinal Disorders: No - GENITOURINARY/GYNECOLOGICAL Hx Genitourinary Disorders: No - PSYCHIATRIC Hx Psychophysiologic Disorder: No Hx Substance Use: No - SURGICAL HISTORY Hx Appendectomy: Yes Other/Comment: kidney stone removal - ANESTHESIA Hx Anesthesia: Yes Hx Anesthesia Reactions: No Hx Malignant Hyperthermia: No Meds Allergies/Adverse Reactions: Allergies Allergy/AdvReac Type Severity Reaction Status Date / Time No Known Allergies Allergy Verified 11/08/17 15:56 - Medications Medications: Current Medications Acetaminophen (Tylenol 325mg Tab) 650 mg PO Q4 PRN PRN Reason: Pain, Mild (1-3) Last Admin: 12/15/17 01:41 Dose: 650 mg Clopidogrel Bisulfate (Plavix) 75 mg PO DAILY [facility] Last Admin: 12/15/17 08:59 Dose: 75 mg Enoxaparin Sodium (Lovenox) 30 mg SC DAILY [facility] PRN Reason: Protocol Last Admin: 12/15/17 08:59 Dose: 30 mg Famotidine (Pepcid) 20 mg PO DAILY [facility] Last Admin: 12/15/17 08:56 Dose: 20 mg Furosemide (Lasix) 40 mg PO DAILY [facility] Last Admin: 12/15/17 08:57 Dose: 40 mg Glipizide (Glucotrol Xl) 2.5 mg PO DAILY [facility] Last Admin: 12/15/17 08:54 Dose: 2.5 mg Isosorbide Mononitrate (Imdur Er) 30 mg PO DAILY [facility] Last Admin: 12/15/17 08:59 Dose: 30 mg Methimazole (Tapazole) 5 mg PO DAILY [facility] Last Admin: 12/15/17 08:59 Dose: 5 mg Metoprolol Tartrate (Lopressor) 25 mg PO Q12 [facility] Last Admin: 12/15/17 09:00 Dose: 25 mg Physical Exam - Respiratory Exam Respiratory Exam: Clear to Auscultation Bilateral - Cardiovascular Exam Cardiovascular Exam: REGULAR RHYTHM, +S1, +S2 - Extremities Exam Extremities exam: Positive for: pedal edema Additional comments: ULCERATION OF BOTH LE - Additional Findings Additional findings: EKG NSR CXR VERY UNDERPENETRATED FILM, CHRONIC CHANGES AND SMALL BILAT PLEURAL EFFUSIONS (CHRONIC) IN MY OPINION PBNP [id number] RECENT ECHOCARDIOGRAM WITH NORMAL LV SYSTOLIC CONTRACTION, ABNORMAL DIASTOLIC LV FUNCTION Results - Vital Signs Recent Vital Signs: Last Vital Signs Temp 97.5 F L 12/15/17 08:19 Pulse 90 12/15/17 08:19 Resp 20 12/15/17 08:19 BP 152/72 H 12/15/17 09:00 Pulse Ox 95 12/15/17 08:19 - Labs Result Diagrams: 12/14/17 16:18 12/14/17 16:18 Labs: Laboratory Results - last 24 hr 12/14/17 12/14/17 12/14/17 16:18 16:18 16:18 WBC 7.6 RBC 3.17 L Hgb 8.7 L Hct 26.8 L MCV 84.5 MCH 27.6 MCHC 32.6 L RDW 20.0 H Plt Count 359 MPV 7.9 Neut % (Auto) 81.1 H Lymph % (Auto) 7.4 L [place] % (Auto) 10.0 Eos % (Auto) 0.5 Baso % (Auto) 1.0 Neut # (Auto) 6.2 Lymph # (Auto) 0.6 L [place] # (Auto) 0.8 Eos # (Auto) 0.0 Baso # (Auto) 0.1 Neutrophils % (Manual) 83 H Lymphocytes % (Manual) 10 L Monocytes % (Manual) 7 Platelet Estimate Normal Large Platelets Present Hypochromasia (manual) Slight Poikilocytosis (manual Slight Anisocytosis (manual) Slight Ovalocytes Slight Schistocytes Slight Sodium 144 Potassium 3.9 Chloride 105 Carbon Dioxide 22 Anion Gap 21 H BUN 34 H Creatinine 1.0 Est GFR ( Amer) > 60 Est GFR (Non-Af Amer) 53 POC Glucose (mg/dL) Random Glucose 132 H Calcium 9.5 Total Bilirubin 1.1 AST 21 ALT 29 Alkaline Phosphatase 77 CK-MB (Mass) Troponin I NT-Pro-B Natriuret Pep 88287 H Total Protein 6.9 Albumin 3.7 Globulin 3.1 Albumin/Globulin Ratio 1.2 TSH 3rd Generation 12/15/17 12/15/17 12/15/17 05:30 06:02 11:37 WBC RBC Hgb Hct MCV MCH MCHC RDW Plt Count MPV Neut % (Auto) Lymph % (Auto) [place] % (Auto) Eos % (Auto) Baso % (Auto) Neut # (Auto) Lymph # (Auto) [place] # (Auto) Eos # (Auto) Baso # (Auto) Neutrophils % (Manual) Lymphocytes % (Manual) Monocytes % (Manual) Platelet Estimate Large Platelets Hypochromasia (manual) Poikilocytosis (manual Anisocytosis (manual) Ovalocytes Schistocytes Sodium Potassium Chloride Carbon Dioxide Anion Gap BUN Creatinine Est GFR ( Amer) Est GFR (Non-Af Amer) POC Glucose (mg/dL) 107 152 H Random Glucose Calcium Total Bilirubin AST ALT Alkaline Phosphatase CK-MB (Mass) 1.29 Troponin I 0.0340 NT-Pro-B Natriuret Pep Total Protein Albumin Globulin Albumin/Globulin Ratio TSH 3rd Generation 3.12 Assessment & Plan - Assessment and Plan (Free Text) Assessment: LOWER EXTREMITY VENOUS INSUFFICIENCY WITH ULCERATION CAD CHRONIC DIASTOLIC CHF HYPERTENSION Plan: CONTINUE ANTIBIOTICS, ISOSORBIDE, CLOPIDOGREL, METOPROLOL, FUROSEMIDE AND LOVENOX WOUND CARE PER PODIATRY NOTE: THE PATIENT DID NOT TOLERATE STATINS
--- NOTE | 2017-12-15 14:46 | CP.PCM.PN ---
Subjective - Date & Time of Evaluation Date of Evaluation: 12/15/17 Time of Evaluation: 14:43 - Subjective Subjective: 77 year old female seen at bedside for multiple lysed, draining blisters with some underlying wounds to her b/l LE. Patient states that the wounds that are open are very painful today and that the Tylenol she is taking is not helping. Per nursing, patient drained right through her Allevyn foam pads yesterday. Patient states that she did not keep her legs elevated and is still refusing compression dressings at this time. She denies any further pedal complaints at this time. Denies any recent N/V/F/C/CP/SOB/D/posterior calf pain when squeezed. Objective - Vital Signs/Intake and Output Vital Signs (last 24 hours): Temp Pulse Resp BP Pulse Ox 97.5 F L 90 20 152/72 H 95 12/15/17 08:19 12/15/17 08:19 12/15/17 08:19 12/15/17 09:00 12/15/17 08:19 - Medications Medications: Current Medications Acetaminophen (Tylenol 325mg Tab) 650 mg PO Q4 PRN PRN Reason: Pain, Mild (1-3) Last Admin: 12/15/17 01:41 Dose: 650 mg Clopidogrel Bisulfate (Plavix) 75 mg PO DAILY [facility] Last Admin: 12/15/17 08:59 Dose: 75 mg Enoxaparin Sodium (Lovenox) 30 mg SC DAILY [facility] PRN Reason: Protocol Last Admin: 12/15/17 08:59 Dose: 30 mg Famotidine (Pepcid) 20 mg PO DAILY [facility] Last Admin: 12/15/17 08:56 Dose: 20 mg Furosemide (Lasix) 40 mg PO DAILY [facility] Last Admin: 12/15/17 08:57 Dose: 40 mg Glipizide (Glucotrol Xl) 2.5 mg PO DAILY [facility] Last Admin: 12/15/17 08:54 Dose: 2.5 mg Isosorbide Mononitrate (Imdur Er) 30 mg PO DAILY [facility] Last Admin: 12/15/17 08:59 Dose: 30 mg Methimazole (Tapazole) 5 mg PO DAILY [facility] Last Admin: 12/15/17 08:59 Dose: 5 mg Metoprolol Tartrate (Lopressor) 25 mg PO Q12 [facility] Last Admin: 12/15/17 09:00 Dose: 25 mg Tramadol HCl (Ultram) 50 mg PO Q8H PRN PRN Reason: Pain, moderate (4-7) - Labs Labs: 12/14/17 16:18 12/14/17 16:18 - Constitutional Appears: Well, Non-toxic, In Acute Distress - Extremities Exam Additional comments: LE focused exam: Vasc: DP pulses weakly palpable 1/4 b/l. Nonpalpable PT pulses secondary to edema, +2 pitting edema to bilateral LE, TG wnl, CFT < 4 sec to all digits. Neuro: Epicritic and protective sensation grossly intact b/l Derm: Multiple chronic, lanced bullae noted to b/l legs with evidence of serous drainage. Most bullae sites are crusted over with no clinical signs of infection or cellulitic changes. One superficial open lysed blister measuring roughly 2 cm x 2 cm x 0.1 cm seen on posteriomedial left leg. Serous drainage, no malodor, minimal periwound erythema noted. Second, larger open blister noted to posterior right calf measuring roughly 8 cm x 5 cm x 0.2 cm. Serous drainage , no malodor, minimal periwound erythema noted. Ortho: Helene's sign negative b/l. All open blister sites painful to palpation - Neurological Exam Neurological Exam: Alert, Awake, Oriented x3 - Psychiatric Exam Psychiatric exam: Normal Affect, Normal Mood Assessment and Plan - Assessment and Plan (Free Text) Assessment: 77 year old female seen at bedside for multiple lysed, draining blisters with some underlying wounds to her b/l LE Plan: Patient seen and evaluated at bedside Plan discussed with attending Dr. Briseno ID consulted - Dr. Danis NAIR US: No evidence of DVT Wounds dressed with alginate dressings, ABD, and kirlix Nurse to get in touch with Dr. Machuca to see if stronger pain medication can be prescribed Had a 10+ minute conversation with patient letting her know that she needs compressive dressings to avoid these wounds Patient demonstrates good understanding and agrees to have compression dressings placed on tomorrow after her new pain medication is received No plan for surgical intervention at this time Podiatry will continue to follow while patient in house
--- NOTE | 2017-12-15 19:16 | CP.PCM.HP ---
History of Present Illness - History of Present Illness History of Present Illness: 77 yo admitted with lower extremity edema and inability to walk Present on Admission - Present on Admission Any Indicators Present on Admission: No Past Patient History - Infectious Disease Hx of Infectious Diseases: None - Past Medical History & Family History Past Medical History?: Yes - Past Social History Smoking Status: Former Smoker - CARDIAC Hx Congestive Heart Failure: Yes Hx Hypercholesterolemia: Yes Hx Hypertension: Yes Hx Peripheral Edema: Yes - PULMONARY Hx Bronchitis: Yes Hx Pneumonia: Yes - NEUROLOGICAL Hx Neurological Disorder: No - HEENT Hx HEENT Problems: No - RENAL Hx Chronic Kidney Disease: Yes Hx Kidney Stones: Yes (kidney stone removal) - ENDOCRINE/METABOLIC Hx Hyperthyroidism: Yes - HEMATOLOGICAL/ONCOLOGICAL Hx AIDS: No Hx Human Immunodeficiency Virus (HIV): No - INTEGUMENTARY Hx Dermatological Problems: No - MUSCULOSKELETAL/RHEUMATOLOGICAL Hx Falls: No - GASTROINTESTINAL Hx Gastrointestinal Disorders: No - GENITOURINARY/GYNECOLOGICAL Hx Genitourinary Disorders: No - PSYCHIATRIC Hx Psychophysiologic Disorder: No Hx Substance Use: No - SURGICAL HISTORY Hx Appendectomy: Yes Other/Comment: kidney stone removal - ANESTHESIA Hx Anesthesia: Yes Hx Anesthesia Reactions: No Hx Malignant Hyperthermia: No Meds Allergies/Adverse Reactions: Allergies Allergy/AdvReac Type Severity Reaction Status Date / Time No Known Allergies Allergy Verified 11/08/17 15:56 Physical Exam - Respiratory Exam Respiratory Exam: NORMAL BREATHING PATTERN - Cardiovascular Exam Cardiovascular Exam: REGULAR RHYTHM - GI/Abdominal Exam GI & Abdominal Exam: Normal Bowel Sounds Results - Vital Signs Recent Vital Signs: Last Vital Signs Temp 97.3 F L 12/15/17 16:26 Pulse 84 12/15/17 16:26 Resp 20 12/15/17 16:26 BP 90/47 L 12/15/17 16:26 Pulse Ox 90 L 12/15/17 16:26 - Labs Result Diagrams: 12/14/17 16:18 12/14/17 16:18 Labs: Laboratory Results - last 24 hr 12/15/17 12/15/17 12/15/17 05:30 06:02 11:37 POC Glucose (mg/dL) 107 152 H CK-MB (Mass) 1.29 Troponin I 0.0340 TSH 3rd Generation 3.12 12/15/17 15:38 POC Glucose (mg/dL) 161 H CK-MB (Mass) Troponin I TSH 3rd Generation Assessment & Plan - Assessment and Plan (Free Text) Assessment: Low ext edema with blisters- etiol? Venous Insuff?? Infectious? Hx Serratia G- Leg elevation ID Podiatry CHF Diastolic CAD stress thalium scarring ischemia?? cardiac cath refused?? Cardiology Stress test?? Hx COPD L Pleural effusion CT scan improvement Hx Anemia ASA d/c as outpt due to dec Hbg Stool for OB ?? NIDDM Thyroid dx Endo - Date & Time Date: 12/15/17 Time:
--- NOTE | 2017-12-15 21:00 | CON ---
ENDOCRINOLOGY CONSULT DATE: LOCATION: In room 668 HISTORY OF PRESENT ILLNESS: This is a 77-year-old female with known history of type 2 diabetes and recurrent admissions for congestive heart failure and is now being referred for endocrine evaluation and management. PAST MEDICAL HISTORY: As mentioned above, history of type 2 diabetes with optimal control on just a low dose oral hypoglycemic therapy with glipizide given as 2.5 mg once daily in the morning, history of hyperthyroidism and has been clinically and biochemically euthyroid and also a very low-dose medical therapy with Tapazole given as 5 mg once daily in the morning as ordered, history of hypertension and dyslipidemia, history of recurrent congestive heart failure with possible diastolic type heart failure and persistent lower extremity edema, history of hypertensive cardiovascular disease and dyslipidemia, history of chronic lower extremity venous insufficiency with recurrent blister formation and ulcerations as noted. FAMILY HISTORY: Positive for hypertension and diabetes. SOCIAL HISTORY: The patient has a supportive family. She lives alone. She admits to previous history of smoking, but quit many years ago. REVIEW OF SYSTEMS: As mentioned above. Admits to generalized body weakness with easy fatigability and tiredness and suboptimal energy level. Also admits to dizziness and lightheadedness, worse on the day of admission. No chest pains or palpitations, but admits to progressive shortness of breath especially on exertion. Her oral intake has been variable with episodic dyspepsia and nausea and habitual constipation. PHYSICAL EXAMINATION: GENERAL: This is an average built female in no apparent distress. VITAL SIGNS: Blood pressure of 150/90, pulse of 70 beats per minute and regular, temperature 98, respirations 20, height is 5 feet 3 inches, and weight is 155 pounds. HEENT: Head is normocephalic. Eyes anicteric with pink conjunctivae. Funduscopy not possible at this time. Ears, nose, and throat otherwise normal. NECK: Supple. Thyroid gland is normal in size. No carotid bruits or cervical adenopathy. CARDIOPULMONARY: Some adynamic precordium. S1 and S2 is rapid and regular. LUNGS: Showed bibasilar dullness, but otherwise clear to auscultation. ABDOMEN: Flat and soft with positive bowel sounds. EXTREMITIES: There is +2 bipedal edema with blister formation and excoriations in both lower extremities distal aspect as noted. Pulses are +2 bilaterally. LABORATORY DATA: Her chemistry showed a BUN of 34, sodium 144, potassium 3.9, chloride 105, CO2 of 22, glucose 132, and creatinine 1. Her hemoglobin is 8.7 with hematocrit of 26, WBC is 7.6, and platelets 359. ASSESSMENT AND PLAN: This is a 77-year-old female with recurrent bouts of congestive heart failure with underlying venous insufficiency and persistent lower extremity edema and neuropathic ulceration as noted thereof and is being referred now for diabetic evaluation and management. She remains clinically and biochemically euthyroid on low-dose Tapazole given as 5 mg daily as ordered. Plan of management as discussed with the patient at length at bedside. We will continue her glipizide given as 2.5 mg once daily in the morning as ordered. We will obtain a hemoglobin A1c to confirm her prior glycemic control and baseline thyroid function studies will be ordered. In the meantime, we will continue her Tapazole given at the low dose of 5 mg once daily in the morning as ordered. We will obtain serial chemistries and supplement accordingly as needed. We will follow. Lucia Corley MD
--- NOTE | 2017-12-16 06:43 | CP.PCM.PN ---
Subjective - Date & Time of Evaluation Date of Evaluation: 12/16/17 Time of Evaluation: 06:41 - Subjective Subjective: Progress note for Dr. Briseno 77 year old female seen at bedside for multiple lysed, draining blisters with some underlying wounds to her b/l LE. Patient states that the wounds that are open continue to be painful today. Patient was started on Ultram yesterday per Dr. Machuca, which she is tolerating well. Denies any acute overnight events. Is AAO x 3 and NAD at time of visit. She denies any further pedal complaints at this time. Denies any recent N/V/F/C/CP/SOB/D/posterior calf pain when squeezed. Objective - Vital Signs/Intake and Output Vital Signs (last 24 hours): Temp Pulse Resp BP Pulse Ox 97.4 F L 84 18 98/51 L 96 12/15/17 23:56 12/15/17 23:56 12/15/17 23:56 12/15/17 23:56 12/15/17 23:56 - Medications Medications: Current Medications Acetaminophen (Tylenol 325mg Tab) 650 mg PO Q4 PRN PRN Reason: Pain, Mild (1-3) Last Admin: 12/15/17 01:41 Dose: 650 mg Bacitracin (Bacitracin Oint) 1 applic TOP DAILY [facility] Clopidogrel Bisulfate (Plavix) 75 mg PO DAILY [facility] Last Admin: 12/15/17 08:59 Dose: 75 mg Enoxaparin Sodium (Lovenox) 30 mg SC DAILY [facility] PRN Reason: Protocol Last Admin: 12/15/17 08:59 Dose: 30 mg Famotidine (Pepcid) 20 mg PO DAILY [facility] Last Admin: 12/15/17 08:56 Dose: 20 mg Furosemide (Lasix) 40 mg PO DAILY [facility] Last Admin: 12/15/17 08:57 Dose: 40 mg Glipizide (Glucotrol Xl) 2.5 mg PO DAILY [facility] Last Admin: 12/15/17 08:54 Dose: 2.5 mg Isosorbide Mononitrate (Imdur Er) 30 mg PO DAILY [facility] Last Admin: 12/15/17 08:59 Dose: 30 mg Methimazole (Tapazole) 5 mg PO DAILY [facility] Last Admin: 12/15/17 08:59 Dose: 5 mg Metoprolol Tartrate (Lopressor) 25 mg PO Q12 [facility] Last Admin: 12/15/17 21:20 Dose: 25 mg Tramadol HCl (Ultram) 50 mg PO Q8H PRN PRN Reason: Pain, moderate (4-7) Last Admin: 12/16/17 06:32 Dose: 50 mg - Labs Labs: 12/14/17 16:18 12/14/17 16:18 - Constitutional Appears: Well, Non-toxic, No Acute Distress - Extremities Exam Additional comments: LE focused exam: Vasc: DP pulses weakly palpable 1/4 b/l. Nonpalpable PT pulses secondary to edema, +2 pitting edema to bilateral LE, TG wnl, CFT < 4 sec to all digits. Neuro: Epicritic and protective sensation grossly intact b/l Derm: Multiple chronic, lanced bullae noted to b/l legs with evidence of serous drainage. Most bullae sites are crusted over with no clinical signs of infection or cellulitic changes. One superficial open lysed blister measuring roughly 2 cm x 2 cm x 0.1 cm seen on posteriomedial left leg. Serous drainage, minimal malodor, minimal periwound erythema noted. Second, larger open blister noted to posterior right calf measuring roughly 8 cm x 5 cm x 0.2 cm. Serous drainage, minimal malodor, minimal periwound erythema noted. Ortho: Helene's sign negative b/l. All open blister sites painful to palpation - Neurological Exam Neurological Exam: Alert, Awake, Oriented x3 - Psychiatric Exam Psychiatric exam: Normal Affect, Normal Mood Assessment and Plan - Assessment and Plan (Free Text) Assessment: 77 year old female seen at bedside for multiple lysed, draining blisters with some underlying wounds to her b/l LE Plan: Patient seen and evaluated at bedside Plan discussed with attending Dr. Briseno Charts, labs, vitals reviewed Continue medical managment per Medicine Team LE US at time of admission negative for DVT b/l ID consult ordered - recs appreciated Dressed b/l leg wounds with Alginate foam, ABD, DSD, CHAITANYA compression No plan for surgical intervention at this time Podiatry will continue to follow while patient in house
[2017-12-16 07:47] LABS: ALB/GLOB RATIO 1.2 (1.0-2.1); ALBUMIN 3.7 g/dL (3.5-5.0); CALCIUM 9.3 mg/dL (8.4-10.2)
[2017-12-16 07:58] LABS: T4 7.15 ug/dl (5.5-11.0)
--- NOTE | 2017-12-16 08:32 | CP.PCM.PN ---
Subjective - Date & Time of Evaluation Date of Evaluation: 12/16/17 Time of Evaluation: 08:25 - Subjective Subjective: NO NEW COMPLAINTS LESS LEG PAIN TODAY WITH TREATMENT Objective - Vital Signs/Intake and Output Vital Signs (last 24 hours): Temp Pulse Resp BP Pulse Ox 97.6 F 73 20 95/51 L 93 L 12/16/17 08:11 12/16/17 08:11 12/16/17 08:11 12/16/17 08:11 12/16/17 08:11 - Medications Medications: Current Medications Acetaminophen (Tylenol 325mg Tab) 650 mg PO Q4 PRN PRN Reason: Pain, Mild (1-3) Last Admin: 12/15/17 01:41 Dose: 650 mg Bacitracin (Bacitracin Oint) 1 applic TOP DAILY [facility] Clopidogrel Bisulfate (Plavix) 75 mg PO DAILY [facility] Last Admin: 12/15/17 08:59 Dose: 75 mg Enoxaparin Sodium (Lovenox) 30 mg SC DAILY [facility] PRN Reason: Protocol Last Admin: 12/15/17 08:59 Dose: 30 mg Famotidine (Pepcid) 20 mg PO DAILY [facility] Last Admin: 12/15/17 08:56 Dose: 20 mg Furosemide (Lasix) 40 mg PO DAILY [facility] Last Admin: 12/15/17 08:57 Dose: 40 mg Glipizide (Glucotrol Xl) 2.5 mg PO DAILY [facility] Last Admin: 12/15/17 08:54 Dose: 2.5 mg Isosorbide Mononitrate (Imdur Er) 30 mg PO DAILY [facility] Last Admin: 12/15/17 08:59 Dose: 30 mg Methimazole (Tapazole) 5 mg PO DAILY [facility] Last Admin: 12/15/17 08:59 Dose: 5 mg Metoprolol Tartrate (Lopressor) 25 mg PO Q12 [facility] Last Admin: 12/15/17 21:20 Dose: 25 mg Tramadol HCl (Ultram) 50 mg PO Q8H PRN PRN Reason: Pain, moderate (4-7) Last Admin: 12/16/17 06:32 Dose: 50 mg - Labs Labs: 12/14/17 16:18 12/16/17 06:30 - Respiratory Exam Respiratory Exam: Decreased Breath Sounds - Cardiovascular Exam Cardiovascular Exam: REGULAR RHYTHM, +S1, +S2 - Extremities Exam Additional comments: WRAPPED BY PODIATRY Assessment and Plan - Assessment and Plan (Free Text) Assessment: VENOUS INSUFFICIENCY WITH LEG EDEMA AND BLISTERING AND ULCERATION CAD HYPERTENSION CHRONIC MILD DIASTOLIC CHF DM Plan: CONTINUE ANTIBIOTICS, METOPROLOL, ISOSORBIDE, FUROSEMIDE, CLOPIDOGREL AND LOVENOX PODIATRY FOLLOWING ID ON CONSULT
[2017-12-16] MEDS: Bacitracin OINT 15GM TOP SCH (09:12)
[2017-12-16] MEDS: GlipiZIDE 2.5 mg SR Tab PO SCH (09:12)
--- NOTE | 2017-12-16 09:12 | CARD ---
APPROVED REPORT EKG Measurement Heart [id number] <Conclusion> Normal sinus rhythm Nonspecific ST and T wave abnormality Abnormal ECG
[2017-12-16] MEDS: Enoxaparin 30 mg Syringe SC SCH (09:52)
[2017-12-16] MEDS: methIMAzole 5 MG TAB PO SCH (09:54)
--- NOTE | 2017-12-16 10:39 | CP.PCM.CON ---
History of Present Illness - History of Present Illness History of Present Illness: This 77-year-old female who is well known to me from prior admissions presented to the emergency department with persistent/increasing dependent edema of both lower extremities. She has been hospitalized for similar problems in the past and has been taking medications as prescribed at home. She has noticed blister formations on both lower extremities especially the dorsum of the left foot. These blisters have ruptured with clear fluid drainage and subsequent crusting of the surface. There has been significant discomfort in both lower extremities which has hindered her ability to carry out activities of daily living and severely interfering with her ability to sleep. She denies any fever or chills. There has been no cough or sputum production. No hemoptysis or chest pain. Upon arrival in the emergency department a chest x-ray showed haziness in the lower lung arthur with indistinct hemidiaphragms bilaterally. Possibility of retrocardiac density/pleural effusion is also noted. Review of Systems - Review of Systems All systems: reviewed and no additional remarkable complaints except - Constitutional Constitutional: Fatigue - Cardiovascular Cardiovascular: Leg Edema - Musculoskeletal Musculoskeletal: Abnormal Gait (Due to leg edema) - Integumentary Integumentary: New Lesions (Blistering of the lower extremities), Skin Pain, Skin Ulcer - Neurological Neurological: Paresthesias (Both feet) Past Patient History - Infectious Disease Hx of Infectious Diseases: None - Past Medical History & Family History Past Medical History?: Yes Past Family History: Reviewed and not pertinent - Past Social History Smoking Status: Former Smoker Chewing Tobacco Use: No Cigar Use: No Alcohol: Social Drugs: Denies Home Situation {Lives}: Alone - CARDIAC Hx Congestive Heart Failure: Yes Hx Hypercholesterolemia: Yes Hx Hypertension: Yes Hx Peripheral Edema: Yes - PULMONARY Hx Bronchitis: Yes Hx Pneumonia: Yes Other/Comment: Pleural effusions - NEUROLOGICAL Other/Comment: Paresthesias of both feet - HEENT Hx HEENT Problems: No - RENAL Hx Chronic Kidney Disease: Yes Hx Kidney Stones: Yes (kidney stone removal) - ENDOCRINE/METABOLIC Hx Diabetes Mellitus Type 2: Yes Hx Hyperthyroidism: Yes - HEMATOLOGICAL/ONCOLOGICAL Hx Anemia: Yes Hx Human Immunodeficiency Virus (HIV): No - INTEGUMENTARY Hx Dermatological Problems: Yes Other/Comment: Dependent edema of both lower extremities with blister formation - MUSCULOSKELETAL/RHEUMATOLOGICAL Hx Falls: No Hx Unsteady Gait: Yes - GASTROINTESTINAL Hx Gastrointestinal Disorders: No - GENITOURINARY/GYNECOLOGICAL Hx Genitourinary Disorders: No - PSYCHIATRIC Hx Psychophysiologic Disorder: No Hx Substance Use: No - SURGICAL HISTORY Hx Appendectomy: Yes Other/Comment: kidney stone removal - ANESTHESIA Hx Anesthesia: Yes Hx Anesthesia Reactions: No Hx Malignant Hyperthermia: No Meds Allergies/Adverse Reactions: Allergies Allergy/AdvReac Type Severity Reaction Status Date / Time No Known Allergies Allergy Verified 11/08/17 15:56 - Medications Medications: Current Medications Acetaminophen (Tylenol 325mg Tab) 650 mg PO Q4 PRN PRN Reason: Pain, Mild (1-3) Last Admin: 12/15/17 01:41 Dose: 650 mg Bacitracin (Bacitracin Oint) 1 applic TOP DAILY [facility] Last Admin: 12/16/17 09:12 Dose: Not Given Clopidogrel Bisulfate (Plavix) 75 mg PO DAILY [facility] Last Admin: 12/16/17 09:53 Dose: 75 mg Enoxaparin Sodium (Lovenox) 30 mg SC DAILY [facility] PRN Reason: Protocol Last Admin: 12/16/17 09:52 Dose: 30 mg Famotidine (Pepcid) 20 mg PO DAILY [facility] Last Admin: 12/16/17 09:53 Dose: 20 mg Furosemide (Lasix) 40 mg PO DAILY [facility] Furosemide (Lasix) 40 mg PO DAILY [facility] Glipizide (Glucotrol Xl) 2.5 mg PO DAILY [facility] Last Admin: 12/16/17 09:12 Dose: 2.5 mg Isosorbide Mononitrate (Imdur Er) 30 mg PO DAILY [facility] Last Admin: 12/16/17 09:13 Dose: 30 mg Methimazole (Tapazole) 5 mg PO DAILY [facility] Last Admin: 12/16/17 09:54 Dose: 5 mg Metoprolol Tartrate (Lopressor) 25 mg PO Q12 [facility] Last Admin: 12/16/17 10:34 Dose: Not Given Tramadol HCl (Ultram) 50 mg PO Q8H PRN PRN Reason: Pain, moderate (4-7) Last Admin: 12/16/17 06:32 Dose: 50 mg Physical Exam - Additional Findings Additional findings: Well-nourished, well-developed female, alert and oriented 3, in no acute distress. She is cooperative with the examination and follows all commands. Her speech is fluent and her memory is intact. The pharynx is pink and the mucous membranes are moist. No exudate. The neck is supple and trachea is midline. No neck vein distention is noted. No carotid bruit appreciated. Illness to percussion on the thorax posteriorly at the left base. Breath sounds are diminished in the lung bases bilaterally, more so left than right. Occasional scattered medium rales are heard in the lower lobes. Scattered sonorous rhonchi are heard in the lower lobes as well as few sibilant rhonchi. No audible wheezing. No bronchial breathing. Heart sounds are distant and the rhythm is regular. Abdomen is soft and nontender with normal bowel sounds. Both lower extremities at the last's sized dressings applied from the feet to the knees. There is some degree of pitting edema noted above the dressings, more so the left than the right. A discolored area over the dorsum of the left foot is noted where they had previously been a large blister. No noted cyanosis or erythema. Results - Vital Signs Recent Vital Signs: Last Vital Signs Temp 97.6 F 12/16/17 08:11 Pulse 72 12/16/17 10:34 Resp 20 12/16/17 08:11 BP 95/51 L 12/16/17 08:11 Pulse Ox 93 L 12/16/17 08:11 - Labs Result Diagrams: 12/14/17 16:18 12/16/17 06:30 Labs: Laboratory Results - last 24 hr 12/15/17 12/15/17 12/15/17 11:37 15:38 21:55 Sodium Potassium Chloride Carbon Dioxide Anion Gap BUN Creatinine Est GFR ( Amer) Est GFR (Non-Af Amer) POC Glucose (mg/dL) 152 H 161 H 114 H Random Glucose Calcium Total Bilirubin AST ALT Alkaline Phosphatase Total Protein Albumin Globulin Albumin/Globulin Ratio Triglycerides Cholesterol LDL Cholesterol Direct HDL Cholesterol Thyroxine (T4) TSH 3rd Generation 12/16/17 12/16/17 05:40 06:30 Sodium 145 Potassium 4.1 Chloride 105 Carbon Dioxide 19 L Anion Gap 25 H BUN 43 H Creatinine 1.3 H Est GFR ( Amer) 48 Est GFR (Non-Af Amer) 40 POC Glucose (mg/dL) 121 H Random Glucose 132 H Calcium 9.3 Total Bilirubin 0.9 AST 29 ALT 32 Alkaline Phosphatase 82 Total Protein 6.7 Albumin 3.7 Globulin 3.0 Albumin/Globulin Ratio 1.2 Triglycerides 60 Cholesterol 104 LDL Cholesterol Direct 58 HDL Cholesterol 29 L Thyroxine (T4) 7.15 TSH 3rd Generation 2.91 Assessment & Plan (1) Edema of both lower extremities due to peripheral venous insufficiency Status: Chronic Priority: High Comment: Acute deterioration of chronic condition. (2) Diabetic neuropathy Status: Chronic Priority: High (3) Hyperthyroidism Status: Chronic Priority: High (4) Pleural effusion Status: Chronic Priority: High Comment: Likely appears to be small bilateral effusions. (5) Type 2 diabetes mellitus Status: Chronic Priority: High - Assessment and Plan (Free Text) Plan: We'll request chest x-ray with PA/lateral and oblique views to assess for degree of pleural effusions and possible retrocardiac infiltrate. - Date & Time Date: 12/16/17 Time: 10:51
[2017-12-16 11:26] LABS: HEMOGLOBIN 8.4 g/dL (12.0-16.0); MEAN CELL VOLUME 85.4 fl (81.0-99.0); MEAN CORPUSCULAR HGB CONC 31.6 g/dL (33.0-37.0); RBC 3.12 Mil/uL (3.80-5.20); RED CELL DISTRIBUTION WIDTH 19.9 % (11.5-14.5); WHITE BLOOD COUNT 8.6 K/uL (4.8-10.8)
[2017-12-16 11:40] LABS: CALCIUM 8.9 mg/dL (8.4-10.2)
[2017-12-16 13:15] LABS: IRON 23 ug/dL (37-170)
[2017-12-16 13:24] LABS: % IRON SATURATION 6 % (20-55); TOTAL IRON BINDING CAPACITY 400 ug/dL (250-450)
[2017-12-16 13:46] LABS: FERRITIN 46.6 ng/Ml (11.1-264.0)
--- NOTE | 2017-12-16 14:29 | US ---
PROCEDURE: Duplex ultrasound of the bilateral lower extremity arteries. HISTORY: pvd COMPARISON: None available. TECHNIQUE: Grayscale and duplex Doppler evaluation of the bilateral common femoral, superficial femoral, popliteal, posterior tibial and dorsalis pedis arteries was performed.. FINDINGS: RIGHT LOWER EXTREMITY: RIGHT COMMON FEMORAL ARTERY: Severe atherosclerotic disease. Monophasic waveform Maximal flow velocity of 24.2 cm/s. RIGHT SUPERFICIAL FEMORAL ARTERY: Severe atherosclerotic disease monophasic waveform Maximal flow velocity of 14.0 cm/s. RIGHT POPLITEAL ARTERY:Severe atherosclerotic disease. Monophasic waveform Maximal flow velocity of 12.9 cm/s. RIGHT POSTERIOR TIBIAL ARTERY: Nondiagnostic study the right calf is bandaged. RIGHT DORSALIS PEDIS ARTERY: Nondiagnostic assessment. Bandages overlie the right dorsalis pedis artery LEFT LOWER EXTREMITY: LEFT COMMON FEMORAL ARTERY: Severe atherosclerotic disease, monophasic waveform Maximal flow velocity of 31.8 cm/s. LEFT SUPERFICIAL FEMORAL ARTERY: Flow could not be documented in the left SFA. LEFT POPLITEAL ARTERY:Severe atherosclerotic disease with monophasic waveform Maximal flow velocity of 63.2 cm/s. LEFT POSTERIOR TIBIAL ARTERY: Nondiagnostic study common the left calf is bandaged LEFT DORSALIS PEDIS ARTERY: Nondiagnostic study, the left calf and ankle are bandaged. OTHER FINDINGS: None. IMPRESSION: Severe atherosclerotic disease bilaterally. There is not only diminished inflow, of vessels as described above are severely atherosclerotic. Limitations of the current examination: Nondiagnostic assessment of calf and dorsalis pedis vessels due to overlying bandages.
--- NOTE | 2017-12-16 15:25 | RAD ---
PROCEDURE: CHEST RADIOGRAPHS, FOUR VIEWS HISTORY: pleural effusion, r/o LLL infiltrate COMPARISON: Frontal chest radiograph 12/14/2017 TECHNIQUE: AP, lateral and bilateral oblique views of the chest been submitted for evaluation of pleural effusions. FINDINGS: No right pleural effusion grossly evident. A mild left pleural effusions identified though airspace disease remains difficult to exclude at the left base and is not simply changed in the interval at the left base in particular. Pulmonary vascular pattern is improved with cardiomegaly again evident. No definite right-sided airspace disease. No pneumothorax bilaterally. IMPRESSION: Left basilar airspace disease persists with small pleural effusion. CHF pattern slightly improved.
--- NOTE | 2017-12-16 15:55 | PN ---
DATE: ENDO FOLLOWUP NOTE LOCATION: Room 668. SUBJECTIVE: This is a 77-year-old female admitted with congestive heart failure and concomitant lower extremity ulcerations and is now being followed closely for metabolic management. Her glycemic levels are fluctuating but much improved at this time and the latest glucose levels have ranged from 132 mg/dL to 167 mg/dL. Her latest chemistry showed BUN of 46, sodium of 142, potassium of 4.6, chloride of 105, CO2 of 18, glucose of 158, and creatinine of 1.2. Her proBNP is 13,200 as noted. Her latest thyroid study showed T4 of 7.15 with the TSH of 2.91. ASSESSMENT: The patient is clinically and biochemically euthyroid at this time with underlying Graves' disease and hyperthyroidism. Moreover, her metabolic control is also near optimal with known history of type 2 diabetes very well controlled on oral hypoglycemic drug therapy as given. Moreover, she presented here with congestive heart failure with an underlying lower extremity neuropathic ulcerations as noted, with underlying bipedal edema. PLAN OF MANAGEMENT: We will continue the same low-dose oral hypoglycemic therapy with glipizide given as 2.5 mg once daily before breakfast as ordered. We will continue also the Tapazole given as 5 mg once daily in the morning as given. We will obtain serial chemistries and supplement accordingly as needed. We will also obtain serial thyroid studies and adjust her dose regimen accordingly. We will sent out thyroid stimulating immunoglobulin and thyroid peroxidase antibody to confirm and/or indicate the of thyroid . Lucia Corley MD
[2017-12-16] MEDS ORDERED: [UNRECOGNIZED DRUG - REMARK] PO ONE (16:52)
--- NOTE | 2017-12-16 17:30 | CP.PCM.PN ---
Subjective - Date & Time of Evaluation Date of Evaluation: 12/16/17 Time of Evaluation: 17:25 - Subjective Subjective: I D NOTE PATIENT EXAMINED,CHART REVIEWED STARTED IV UNASYN/CIPRO CONSULT DICTATED Objective - Vital Signs/Intake and Output Vital Signs (last 24 hours): Temp Pulse Resp BP Pulse Ox 97.6 F 76 20 96/55 L 98 12/16/17 08:11 12/16/17 16:20 12/16/17 08:11 12/16/17 10:36 12/16/17 16:20 - Medications Medications: Current Medications Acetaminophen (Tylenol 325mg Tab) 650 mg PO Q4 PRN PRN Reason: Pain, Mild (1-3) Last Admin: 12/15/17 01:41 Dose: 650 mg Bacitracin (Bacitracin Oint) 1 applic TOP DAILY [facility] Last Admin: 12/16/17 09:12 Dose: Not Given Clopidogrel Bisulfate (Plavix) 75 mg PO DAILY [facility] Last Admin: 12/16/17 09:53 Dose: 75 mg Enoxaparin Sodium (Lovenox) 30 mg SC DAILY [facility] PRN Reason: Protocol Last Admin: 12/16/17 09:52 Dose: 30 mg Famotidine (Pepcid) 20 mg PO DAILY [facility] Last Admin: 12/16/17 09:53 Dose: 20 mg Furosemide (Lasix) 40 mg PO DAILY [facility] Glipizide (Glucotrol Xl) 2.5 mg PO DAILY [facility] Last Admin: 12/16/17 09:12 Dose: 2.5 mg Ampicillin Sodium/Sulbactam (Sodium 1.5 gm/ Sodium Chloride) 100 mls @ 100 mls/ hr IVPB Q12 [facility] PRN Reason: Protocol Ciprofloxacin (Cipro 200mg/100ml D5w) 100 mls @ 100 mls/hr IVPB Q12 [facility] PRN Reason: Protocol Isosorbide Mononitrate (Imdur Er) 30 mg PO DAILY [facility] Last Admin: 12/16/17 09:13 Dose: 30 mg Methimazole (Tapazole) 5 mg PO DAILY [facility] Last Admin: 12/16/17 09:54 Dose: 5 mg Metoprolol Tartrate (Lopressor) 25 mg PO Q12 [facility] Last Admin: 12/16/17 10:34 Dose: Not Given Tramadol HCl (Ultram) 50 mg PO Q8H PRN PRN Reason: Pain, moderate (4-7) Last Admin: 12/16/17 14:12 Dose: 50 mg - Labs Labs: 12/16/17 11:10 12/16/17 11:10
--- NOTE | 2017-12-16 20:17 | CP.PCM.PN ---
Subjective - Date & Time of Evaluation Date of Evaluation: 12/16/17 Time of Evaluation: 22:22 - Subjective Subjective: Above noted Objective - Vital Signs/Intake and Output Vital Signs (last 24 hours): Temp Pulse Resp BP Pulse Ox 97.6 F 76 20 96/55 L 98 12/16/17 08:11 12/16/17 16:20 12/16/17 08:11 12/16/17 10:36 12/16/17 16:20 - Medications Medications: Current Medications Acetaminophen (Tylenol 325mg Tab) 650 mg PO Q4 PRN PRN Reason: Pain, Mild (1-3) Last Admin: 12/15/17 01:41 Dose: 650 mg Bacitracin (Bacitracin Oint) 1 applic TOP DAILY [facility] Last Admin: 12/16/17 09:12 Dose: Not Given Clopidogrel Bisulfate (Plavix) 75 mg PO DAILY [facility] Last Admin: 12/16/17 09:53 Dose: 75 mg Enoxaparin Sodium (Lovenox) 30 mg SC DAILY [facility] PRN Reason: Protocol Last Admin: 12/16/17 09:52 Dose: 30 mg Famotidine (Pepcid) 20 mg PO DAILY [facility] Last Admin: 12/16/17 09:53 Dose: 20 mg Furosemide (Lasix) 40 mg PO DAILY [facility] Glipizide (Glucotrol Xl) 2.5 mg PO DAILY [facility] Last Admin: 12/16/17 09:12 Dose: 2.5 mg Ampicillin Sodium/Sulbactam (Sodium 1.5 gm/ Sodium Chloride) 100 mls @ 100 mls/ hr IVPB Q12 [facility] PRN Reason: Protocol Ciprofloxacin (Cipro 200mg/100ml D5w) 100 mls @ 100 mls/hr IVPB Q12 [facility] PRN Reason: Protocol Isosorbide Mononitrate (Imdur Er) 30 mg PO DAILY [facility] Last Admin: 12/16/17 09:13 Dose: 30 mg Methimazole (Tapazole) 5 mg PO DAILY [facility] Last Admin: 12/16/17 09:54 Dose: 5 mg Metoprolol Tartrate (Lopressor) 25 mg PO Q12 [facility] Last Admin: 12/16/17 10:34 Dose: Not Given Tramadol HCl (Ultram) 50 mg PO Q8H PRN PRN Reason: Pain, moderate (4-7) Last Admin: 12/16/17 14:12 Dose: 50 mg - Labs Labs: 12/16/17 11:10 12/16/17 11:10 - Respiratory Exam Respiratory Exam: NORMAL BREATHING PATTERN - Cardiovascular Exam Cardiovascular Exam: REGULAR RHYTHM - GI/Abdominal Exam GI & Abdominal Exam: Normal Bowel Sounds Assessment and Plan - Assessment and Plan (Free Text) Assessment: Low ext edema with blisters- etiol? Venous Insuff?? Infectious? Hx Serratia G- Leg elevation IV ABX ID Podiatry Surgery CHF Diastolic CAD stress thalium scarring ischemia?? cardiac cath refused?? Cardiology Stress test?? Hx COPD L Pleural effusion Pulmonary Hx Anemia ASA d/c as outpt due to dec Hbg Stool for OB ?? NIDDM Thyroid dx Endo
--- NOTE | 2017-12-16 20:32 | CP.PCM.CON ---
History of Present Illness - History of Present Illness History of Present Illness: SURGERY CONSULT NOTE FOR DR. PERDOMO 77F presents with lower extremity wounds and edema. Patient states pain started on Saturday and began to inhibit her from walking. She usually walks with her walker. She states she has had these symptoms in the past. Patient denies loss of sensation, or motor function. PMH: CHF, HTN, HLD, Kidney stone PSH: Kidney stone removal, appendectomy Allergies: NKDA Past Patient History - Infectious Disease Hx of Infectious Diseases: None - Past Medical History & Family History Past Medical History?: Yes Past Family History: Reviewed and not pertinent - Past Social History Smoking Status: Former Smoker Chewing Tobacco Use: No Cigar Use: No Alcohol: Social Drugs: Denies Home Situation {Lives}: Alone - CARDIAC Hx Congestive Heart Failure: Yes Hx Hypercholesterolemia: Yes Hx Hypertension: Yes - PULMONARY Hx Chronic Obstructive Pulmonary Disease (COPD): Yes - NEUROLOGICAL Other/Comment: Paresthesias of both feet - HEENT Hx HEENT Problems: No - RENAL Hx Chronic Kidney Disease: Yes Hx Kidney Stones: Yes (kidney stone removal) - ENDOCRINE/METABOLIC Hx Diabetes Mellitus Type 2: Yes - HEMATOLOGICAL/ONCOLOGICAL Hx Anemia: Yes Hx Human Immunodeficiency Virus (HIV): No - INTEGUMENTARY Hx Dermatological Problems: Yes Other/Comment: Dependent edema of both lower extremities with blister formation - MUSCULOSKELETAL/RHEUMATOLOGICAL Hx Falls: No Hx Unsteady Gait: Yes - GASTROINTESTINAL Hx Gastrointestinal Disorders: No - GENITOURINARY/GYNECOLOGICAL Hx Genitourinary Disorders: No - PSYCHIATRIC Hx Psychophysiologic Disorder: No Hx Substance Use: No - SURGICAL HISTORY Hx Appendectomy: Yes Other/Comment: kidney stone removal - ANESTHESIA Hx Anesthesia: Yes Hx Anesthesia Reactions: No Hx Malignant Hyperthermia: No Meds Allergies/Adverse Reactions: Allergies Allergy/AdvReac Type Severity Reaction Status Date / Time No Known Allergies Allergy Verified 11/08/17 15:56 - Medications Medications: Current Medications Acetaminophen (Tylenol 325mg Tab) 650 mg PO Q4 PRN PRN Reason: Pain, Mild (1-3) Last Admin: 12/15/17 01:41 Dose: 650 mg Bacitracin (Bacitracin Oint) 1 applic TOP DAILY [facility] Last Admin: 12/16/17 09:12 Dose: Not Given Clopidogrel Bisulfate (Plavix) 75 mg PO DAILY [facility] Last Admin: 12/16/17 09:53 Dose: 75 mg Enoxaparin Sodium (Lovenox) 30 mg SC DAILY [facility] PRN Reason: Protocol Last Admin: 12/16/17 09:52 Dose: 30 mg Famotidine (Pepcid) 20 mg PO DAILY [facility] Last Admin: 12/16/17 09:53 Dose: 20 mg Furosemide (Lasix) 40 mg PO DAILY [facility] Glipizide (Glucotrol Xl) 2.5 mg PO DAILY [facility] Last Admin: 12/16/17 09:12 Dose: 2.5 mg Ampicillin Sodium/Sulbactam (Sodium 1.5 gm/ Sodium Chloride) 100 mls @ 100 mls/ hr IVPB Q12 [facility] PRN Reason: Protocol Ciprofloxacin (Cipro 200mg/100ml D5w) 100 mls @ 100 mls/hr IVPB Q12 [facility] PRN Reason: Protocol Isosorbide Mononitrate (Imdur Er) 30 mg PO DAILY [facility] Last Admin: 12/16/17 09:13 Dose: 30 mg Methimazole (Tapazole) 5 mg PO DAILY [facility] Last Admin: 12/16/17 09:54 Dose: 5 mg Metoprolol Tartrate (Lopressor) 25 mg PO Q12 [facility] Last Admin: 12/16/17 10:34 Dose: Not Given Tramadol HCl (Ultram) 50 mg PO Q8H PRN PRN Reason: Pain, moderate (4-7) Last Admin: 12/16/17 14:12 Dose: 50 mg Physical Exam - Constitutional Appears: Non-toxic, No Acute Distress - Respiratory Exam Respiratory Exam: Clear to Auscultation Bilateral, NORMAL BREATHING PATTERN - Cardiovascular Exam Cardiovascular Exam: REGULAR RHYTHM, +S1, +S2 - GI/Abdominal Exam GI & Abdominal Exam: Soft. absent: Distended, Firm, Guarding, Rebound, Rigid, Tenderness - Extremities Exam Extremities exam: Positive for: pedal edema, tenderness Additional comments: b/l LE wounds b/l ulceration in the medial aspect just superior to medial malleous Left dorsal aspect of feet has crusted over blister B/L LE pitting edema - Neurological Exam Neurological exam: Alert, Oriented x3 - Psychiatric Exam Psychiatric exam: Normal Affect, Normal Mood - Skin Skin Exam: Warm Results - Vital Signs Recent Vital Signs: Last Vital Signs Temp 97.6 F 12/16/17 08:11 Pulse 76 12/16/17 16:20 Resp 20 12/16/17 08:11 BP 96/55 L 12/16/17 10:36 Pulse Ox 98 12/16/17 16:20 - Labs Result Diagrams: 12/16/17 11:10 12/16/17 11:10 Labs: Laboratory Results - last 24 hr 12/15/17 12/16/17 12/16/17 21:55 05:40 06:30 WBC RBC Hgb Hct MCV MCH MCHC RDW Plt Count Sodium 145 Potassium 4.1 Chloride 105 Carbon Dioxide 19 L Anion Gap 25 H BUN 43 H Creatinine 1.3 H Est GFR ( Amer) 48 Est GFR (Non-Af Amer) 40 POC Glucose (mg/dL) 114 H 121 H Random Glucose 132 H Hemoglobin A1c Calcium 9.3 Iron TIBC % Saturation Ferritin Total Bilirubin 0.9 AST 29 ALT 32 Alkaline Phosphatase 82 NT-Pro-B Natriuret Pep Total Protein 6.7 Albumin 3.7 Globulin 3.0 Albumin/Globulin Ratio 1.2 Triglycerides 60 Cholesterol 104 LDL Cholesterol Direct 58 HDL Cholesterol 29 L Vitamin B12 Folate Thyroxine (T4) 7.15 TSH 3rd Generation 2.91 12/16/17 12/16/17 12/16/17 06:30 10:58 11:10 WBC 8.6 RBC 3.12 L Hgb 8.4 L Hct 26.7 L MCV 85.4 MCH 27.0 MCHC 31.6 L RDW 19.9 H Plt Count 348 Sodium Potassium Chloride Carbon Dioxide Anion Gap BUN Creatinine Est GFR ( Amer) Est GFR (Non-Af Amer) POC Glucose (mg/dL) 167 H Random Glucose Hemoglobin A1c 5.7 Calcium Iron TIBC % Saturation Ferritin Total Bilirubin AST ALT Alkaline Phosphatase NT-Pro-B Natriuret Pep Total Protein Albumin Globulin Albumin/Globulin Ratio Triglycerides Cholesterol LDL Cholesterol Direct HDL Cholesterol Vitamin B12 Folate Thyroxine (T4) TSH 3rd Generation 12/16/17 12/16/17 12/16/17 11:10 13:00 13:00 WBC RBC Hgb Hct MCV MCH MCHC RDW Plt Count Sodium 142 Potassium 4.6 Chloride 105 Carbon Dioxide 18 L Anion Gap 24 H BUN 46 H Creatinine 1.2 Est GFR ( Amer) 52 Est GFR (Non-Af Amer) 43 POC Glucose (mg/dL) Random Glucose 158 H Hemoglobin A1c Calcium 8.9 Iron 23 L TIBC 400 % Saturation 6 L Ferritin 46.6 Total Bilirubin AST ALT Alkaline Phosphatase NT-Pro-B Natriuret Pep 98530 H Total Protein Albumin Globulin Albumin/Globulin Ratio Triglycerides Cholesterol LDL Cholesterol Direct HDL Cholesterol Vitamin B12 496 Folate 14.0 Thyroxine (T4) TSH 3rd Generation 12/16/17 16:51 WBC RBC Hgb Hct MCV MCH MCHC RDW Plt Count Sodium Potassium Chloride Carbon Dioxide Anion Gap BUN Creatinine Est GFR ( Amer) Est GFR (Non-Af Amer) POC Glucose (mg/dL) 141 H Random Glucose Hemoglobin A1c Calcium Iron TIBC % Saturation Ferritin Total Bilirubin AST ALT Alkaline Phosphatase NT-Pro-B Natriuret Pep Total Protein Albumin Globulin Albumin/Globulin Ratio Triglycerides Cholesterol LDL Cholesterol Direct HDL Cholesterol Vitamin B12 Folate Thyroxine (T4) TSH 3rd Generation Assessment & Plan - Assessment and Plan (Free Text) Assessment: 77F with b/l lower extremity wounds 2/2 to edema caused by venous insufficiency vs CHF Plan: - determine cause of LE edema - daily dressing changes - hold CHAITANYA for now, recommend elevation of LE - consider vascular studies of LE upon re-evaluation Discussed with Dr. Chuck Garcia, PGY2
[2017-12-16] MEDS: Ciprofloxacin 200mg/100ml D5W 100 ML IVPB SCH (20:48)
--- NOTE | 2017-12-16 23:27 | CON ---
INFECTIOUS DISEASE CONSULT DATE: HISTORY OF PRESENT ILLNESS: The patient is admitted with difficulty walking and multiple breakdown wounds to both lower extremities. The patient has a history of diabetes and congestive heart failure. She came to the emergency room because of lower extremity edema and wounds and difficulty walking and she was admitted via the emergency room. Apparently, she was in the hospital recently with the same issue and at that point she refused to take her IV antibiotics. The patient lives on her own and has difficulty taking care of herself. The patient when spoken she denied any fever, chills, sweats and did say she had significant pain in her lower extremities and needed some pain medication. The patient is alert, is in pain, and seems at some point confused in her discussion. PAST MEDICAL HISTORY: Previously include also chronic kidney disease and history of edema. PHYSICAL EXAMINATION: HEENT: Essentially within normal limits. NECK: Supple. LUNGS: Breath sounds diminished bilaterally at lung bases left greater than right. There are some rales in lower lung arthur. The patient also had some scattered rhonchi. There is no wheezing. HEART: Regular sinus rhythm. ABDOMEN: Soft. Positive bowel sounds. EXTREMITIES: Both lower extremities have dressings bilaterally. There was definite pitting edema and there are multiple ulcerations on her lower extremities including a large ulcer on the right lower extremity. LABORATORY DATA: Her BUN is 46, creatinine 1.2, GFR is 43, blood glucose is 167, total iron binding capacity is 400, and iron is 23, which is low. CBC; white count is 8.6, hematocrit 26.7, and hemoglobin is 8.4. She has a left shift, which shows 81% polys. Cultures were taken from previous admission and she grew from the wounds on the lower extremities Serratia, Klebsiella, and Enterococcus. I have reviewed the MICs and the sensitivities. At this point in time, we would start her on Unasyn 1.5 g IV piggyback every 12 hours essentially to cover the Enterococcus and give some Gram-negative coverage and Cipro 200 mg again an adjusted renal dose IV piggyback every 12 hours. DIAGNOSES: Bilateral peripheral edema with infected ulcerations, chronic obstructive pulmonary disease, and congestive heart failure. I have started treatment with Unasyn and Cipro. Thank you. We will follow consult along with you. Marin Moscoso MD [facility]
[2017-12-17] MEDS: Bacitracin OINT 15GM TOP SCH (08:31)
[2017-12-17] MEDS: Enoxaparin 30 mg Syringe SC SCH (08:31)
--- NOTE | 2017-12-17 08:31 | CP.PCM.CON ---
History of Present Illness - History of Present Illness History of Present Illness: Consultation for evaluation of non-healing ulcer with severe PVOD on u/s HPI: 77 year old female with hx of HTN, DM, admitted Review of Systems - Review of Systems Systems not reviewed;Unavailable: Acuity of Condition All systems: reviewed and no additional remarkable complaints except - Constitutional Constitutional: As Per HPI - EENT Eyes: As Per HPI Ears: As Per HPI Nose/Mouth/Throat: As Per HPI - Breasts Breasts: As Per HPI - Cardiovascular Cardiovascular: As Per HPI - Respiratory Respiratory: As Per HPI - Gastrointestinal Gastrointestinal: As Per HPI - Genitourinary Genitourinary: As Per HPI - Reproductive: Female Reproductive:Female: As Per HPI - Menstruation Menstruation: As Per HPI - Musculoskeletal Musculoskeletal: As Per HPI - Integumentary Integumentary: As Per HPI - Neurological Neurological: As Per HPI - Psychiatric Psychiatric: As Per HPI - Endocrine Endocrine: As Per HPI - Hematologic/Lymphatic Hematologic: As Per HPI Past Patient History - Infectious Disease Hx of Infectious Diseases: None - Past Medical History & Family History Past Medical History?: Yes Past Family History: Reviewed and not pertinent - Past Social History Smoking Status: Former Smoker Chewing Tobacco Use: No Cigar Use: No Alcohol: Social Drugs: Denies Home Situation {Lives}: Alone - CARDIAC Hx Congestive Heart Failure: Yes Hx Hypercholesterolemia: Yes Hx Hypertension: Yes - PULMONARY Hx Chronic Obstructive Pulmonary Disease (COPD): Yes - NEUROLOGICAL Other/Comment: Paresthesias of both feet - HEENT Hx HEENT Problems: No - RENAL Hx Chronic Kidney Disease: Yes Hx Kidney Stones: Yes (kidney stone removal) - ENDOCRINE/METABOLIC Hx Diabetes Mellitus Type 2: Yes - HEMATOLOGICAL/ONCOLOGICAL Hx Anemia: Yes Hx Human Immunodeficiency Virus (HIV): No - INTEGUMENTARY Hx Dermatological Problems: Yes Other/Comment: Dependent edema of both lower extremities with blister formation - MUSCULOSKELETAL/RHEUMATOLOGICAL Hx Falls: No Hx Unsteady Gait: Yes - GASTROINTESTINAL Hx Gastrointestinal Disorders: No - GENITOURINARY/GYNECOLOGICAL Hx Genitourinary Disorders: No - PSYCHIATRIC Hx Psychophysiologic Disorder: No Hx Substance Use: No - SURGICAL HISTORY Hx Appendectomy: Yes Other/Comment: kidney stone removal - ANESTHESIA Hx Anesthesia: Yes Hx Anesthesia Reactions: No Hx Malignant Hyperthermia: No Meds Allergies/Adverse Reactions: Allergies Allergy/AdvReac Type Severity Reaction Status Date / Time No Known Allergies Allergy Verified 11/08/17 15:56 - Medications Medications: Current Medications Acetaminophen (Tylenol 325mg Tab) 650 mg PO Q4 PRN PRN Reason: Pain, Mild (1-3) Last Admin: 12/15/17 01:41 Dose: 650 mg Bacitracin (Bacitracin Oint) 1 applic TOP DAILY [facility] Last Admin: 12/16/17 09:12 Dose: Not Given Clopidogrel Bisulfate (Plavix) 75 mg PO DAILY [facility] Last Admin: 12/16/17 09:53 Dose: 75 mg Enoxaparin Sodium (Lovenox) 30 mg SC DAILY [facility] PRN Reason: Protocol Last Admin: 12/16/17 09:52 Dose: 30 mg Famotidine (Pepcid) 20 mg PO DAILY [facility] Last Admin: 12/16/17 09:53 Dose: 20 mg Furosemide (Lasix) 40 mg PO DAILY [facility] Glipizide (Glucotrol Xl) 2.5 mg PO DAILY [facility] Last Admin: 12/16/17 09:12 Dose: 2.5 mg Ampicillin Sodium/Sulbactam (Sodium 1.5 gm/ Sodium Chloride) 100 mls @ 100 mls/ hr IVPB Q12 [facility] PRN Reason: Protocol Last Admin: 12/16/17 21:52 Dose: 100 mls/hr Ciprofloxacin (Cipro 200mg/100ml D5w) 100 mls @ 100 mls/hr IVPB Q12 [facility] PRN Reason: Protocol Last Admin: 12/16/17 20:48 Dose: 100 mls/hr Isosorbide Mononitrate (Imdur Er) 30 mg PO DAILY [facility] Last Admin: 12/16/17 09:13 Dose: 30 mg Methimazole (Tapazole) 5 mg PO DAILY [facility] Last Admin: 12/16/17 09:54 Dose: 5 mg Metoprolol Tartrate (Lopressor) 25 mg PO Q12 [facility] Last Admin: 12/16/17 21:53 Dose: 25 mg Tramadol HCl (Ultram) 50 mg PO Q8H PRN PRN Reason: Pain, moderate (4-7) Last Admin: 12/16/17 14:12 Dose: 50 mg Physical Exam - Constitutional Appears: Well - Head Exam Head Exam: ATRAUMATIC, NORMAL INSPECTION, NORMOCEPHALIC - Eye Exam Eye Exam: EOMI, Normal appearance, PERRL Pupil Exam: NORMAL ACCOMODATION, PERRL - ENT Exam ENT Exam: Mucous Membranes Moist, Normal Exam - Neck Exam Neck exam: Positive for: Normal Inspection - Respiratory Exam Respiratory Exam: Clear to Auscultation Bilateral, NORMAL BREATHING PATTERN - Cardiovascular Exam Cardiovascular Exam: REGULAR RHYTHM, RRR, +S1, +S2, Systolic Murmur - GI/Abdominal Exam GI & Abdominal Exam: Normal Bowel Sounds, Soft. absent: Tenderness - Extremities Exam Additional comments: wrapped in dressing in bilateral lower extremity - Back Exam Back exam: NORMAL INSPECTION - Neurological Exam Neurological exam: Alert, CN II-XII Intact, Oriented x3, Reflexes Normal - Psychiatric Exam Psychiatric exam: Normal Affect, Normal Mood - Skin Skin Exam: Dry, Intact, Normal Color, Warm Results - Vital Signs Recent Vital Signs: Last Vital Signs Temp 97.3 F L 12/16/17 23:23 Pulse 71 12/16/17 23:23 Resp 20 12/16/17 23:23 BP 111/57 L 12/16/17 23:23 Pulse Ox 95 12/16/17 23:23 - Labs Result Diagrams: 12/18/17 06:05 12/18/17 06:05 Labs: Laboratory Results - last 24 hr 12/16/17 12/16/17 12/16/17 06:30 10:58 11:10 WBC 8.6 RBC 3.12 L Hgb 8.4 L Hct 26.7 L MCV 85.4 MCH 27.0 MCHC 31.6 L RDW 19.9 H Plt Count 348 Sodium Potassium Chloride Carbon Dioxide Anion Gap BUN Creatinine Est GFR ( Amer) Est GFR (Non-Af Amer) POC Glucose (mg/dL) 167 H Random Glucose Hemoglobin A1c 5.7 Calcium Iron TIBC % Saturation Ferritin NT-Pro-B Natriuret Pep Vitamin B12 Folate 12/16/17 12/16/17 12/16/17 11:10 13:00 13:00 WBC RBC Hgb Hct MCV MCH MCHC RDW Plt Count Sodium 142 Potassium 4.6 Chloride 105 Carbon Dioxide 18 L Anion Gap 24 H BUN 46 H Creatinine 1.2 Est GFR ( Amer) 52 Est GFR (Non-Af Amer) 43 POC Glucose (mg/dL) Random Glucose 158 H Hemoglobin A1c Calcium 8.9 Iron 23 L TIBC 400 % Saturation 6 L Ferritin 46.6 NT-Pro-B Natriuret Pep 29444 H Vitamin B12 496 Folate 14.0 12/16/17 12/16/17 12/17/17 16:51 22:01 05:49 WBC RBC Hgb Hct MCV MCH MCHC RDW Plt Count Sodium Potassium Chloride Carbon Dioxide Anion Gap BUN Creatinine Est GFR ( Amer) Est GFR (Non-Af Amer) POC Glucose (mg/dL) 141 H 127 H 123 H Random Glucose Hemoglobin A1c Calcium Iron TIBC % Saturation Ferritin NT-Pro-B Natriuret Pep Vitamin B12 Folate Assessment & Plan (1) PVD (peripheral vascular disease) Status: Acute (2) Ulcer Status: Acute (3) CHF exacerbation Status: Acute (4) Edema of both lower extremities due to peripheral venous insufficiency Status: Chronic Priority: High (5) Chest pain Status: Acute (6) 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 Priority: High
[2017-12-17] MEDS: methIMAzole 5 MG TAB PO SCH (08:32)
[2017-12-17] MEDS: Ciprofloxacin 200mg/100ml D5W 100 ML IVPB SCH ×2 (08:35→20:53)
--- NOTE | 2017-12-17 08:35 | CP.PCM.PN ---
Subjective - Date & Time of Evaluation Date of Evaluation: 12/17/17 Time of Evaluation: 08:28 - Subjective Subjective: Progress note for Dr. Briseno 77 year old female seen at bedside with attending Dr. Briseno for multiple lysed , draining blisters with some underlying infected wounds to her b/l LE. Patient states that the wounds that are open continue to be painful today but pain is controlled with medication. Denies any acute overnight events. Is AAO x 3 and NAD at time of visit. She denies any further pedal complaints at this time. Admits to not elevating her legs like she has been instructed to do. Denies any recent N/V/F/C/CP/SOB/D/posterior calf pain when squeezed. Objective - Vital Signs/Intake and Output Vital Signs (last 24 hours): Temp Pulse Resp BP Pulse Ox 97.3 F L 71 20 111/57 L 95 12/16/17 23:23 12/16/17 23:23 12/16/17 23:23 12/16/17 23:23 12/16/17 23:23 - Medications Medications: Current Medications Acetaminophen (Tylenol 325mg Tab) 650 mg PO Q4 PRN PRN Reason: Pain, Mild (1-3) Last Admin: 12/15/17 01:41 Dose: 650 mg Bacitracin (Bacitracin Oint) 1 applic TOP DAILY [facility] Last Admin: 12/16/17 09:12 Dose: Not Given Clopidogrel Bisulfate (Plavix) 75 mg PO DAILY [facility] Last Admin: 12/16/17 09:53 Dose: 75 mg Enoxaparin Sodium (Lovenox) 30 mg SC DAILY [facility] PRN Reason: Protocol Last Admin: 12/16/17 09:52 Dose: 30 mg Famotidine (Pepcid) 20 mg PO DAILY [facility] Last Admin: 12/16/17 09:53 Dose: 20 mg Furosemide (Lasix) 40 mg PO DAILY [facility] Glipizide (Glucotrol Xl) 2.5 mg PO DAILY [facility] Last Admin: 12/16/17 09:12 Dose: 2.5 mg Ampicillin Sodium/Sulbactam (Sodium 1.5 gm/ Sodium Chloride) 100 mls @ 100 mls/ hr IVPB Q12 [facility] PRN Reason: Protocol Last Admin: 12/16/17 21:52 Dose: 100 mls/hr Ciprofloxacin (Cipro 200mg/100ml D5w) 100 mls @ 100 mls/hr IVPB Q12 [facility] PRN Reason: Protocol Last Admin: 12/16/17 20:48 Dose: 100 mls/hr Isosorbide Mononitrate (Imdur Er) 30 mg PO DAILY [facility] Last Admin: 12/16/17 09:13 Dose: 30 mg Methimazole (Tapazole) 5 mg PO DAILY [facility] Last Admin: 12/16/17 09:54 Dose: 5 mg Metoprolol Tartrate (Lopressor) 25 mg PO Q12 [facility] Last Admin: 12/16/17 21:53 Dose: 25 mg Tramadol HCl (Ultram) 50 mg PO Q8H PRN PRN Reason: Pain, moderate (4-7) Last Admin: 12/16/17 14:12 Dose: 50 mg - Labs Labs: 12/16/17 11:10 12/16/17 11:10 - Constitutional Appears: Well, Non-toxic, No Acute Distress - Extremities Exam Additional comments: LE focused exam: Vasc: DP pulses weakly palpable 1/4 b/l. Nonpalpable PT pulses secondary to edema, +2 pitting edema to bilateral LE, TG wnl, CFT < 4 sec to all digits. Neuro: Epicritic and protective sensation grossly intact b/l Derm: Multiple chronic, lanced bullae noted to b/l legs with evidence of serous drainage. Most bullae sites are crusted over with no clinical signs of infection or cellulitic changes. One superficial open lysed blister measuring roughly 2 cm x 2 cm x 0.1 cm seen on posteriomedial left leg. Serous drainage, increased malodor, minimal periwound erythema noted. Second, larger open blister noted to posterior right calf measuring roughly 8 cm x 5 cm x 0.2 cm. Serous drainage, minimal malodor, minimal periwound erythema noted. Crusted cap of third blister has fallen off of anterior left leg revealing roughly 2 cm x 3 cm x 0.2 cm superficial ulceration underneath with serous drainage and no other clinical signs of infection Ortho: Helene's sign negative b/l. All open blister sites painful to palpation - Neurological Exam Neurological Exam: Alert, Awake, Oriented x3 - Psychiatric Exam Psychiatric exam: Normal Affect, Normal Mood Assessment and Plan - Assessment and Plan (Free Text) Assessment: 77 year old female seen at bedside with attending Dr. Briseno for multiple lysed , draining blisters with some underlying infected wounds to her b/l LE Plan: Patient seen and evaluated at bedside with attending Dr. Briseno Charts, labs, vitals reviewed Afebrile, absent leukocytosis Continue IV abx per ID Continue Medical management per Medicine Wound cx pending Venous duplex - No evidence of LE DVT Arterial duplex - Diffuse atherosclerotic changes b/l Dr. Damon consulted to see if there is possibility for vascular intervention - awaiting recs Wounds scrubbed with hibiclense solution and saline, dressed with alginate, ABD , DSD, CHAITANYA for light compression No plan for surgical intervetion at this time Podiatry will continue to follow while patient in house
--- NOTE | 2017-12-17 08:36 | CP.PCM.PN ---
Subjective - Date & Time of Evaluation Date of Evaluation: 12/17/17 Time of Evaluation: 07:00 - Subjective Subjective: General Surgery Progress Note- Dr. Woods 77 y.o female seen and evaluated at bedside for lower extremity wounds and edema. Patient is seen resting at bedside, in NAD. Patient denies acute overnight events. Reports that she has been elevating her foot on the bed at night. Reports pain to the lower extremity. Objective - Vital Signs/Intake and Output Vital Signs (last 24 hours): Temp Pulse Resp BP Pulse Ox 97.3 F L 71 20 111/57 L 95 12/16/17 23:23 12/16/17 23:23 12/16/17 23:23 12/16/17 23:23 12/16/17 23:23 - Medications Medications: Current Medications Acetaminophen (Tylenol 325mg Tab) 650 mg PO Q4 PRN PRN Reason: Pain, Mild (1-3) Last Admin: 12/15/17 01:41 Dose: 650 mg Bacitracin (Bacitracin Oint) 1 applic TOP DAILY [facility] Last Admin: 12/16/17 09:12 Dose: Not Given Clopidogrel Bisulfate (Plavix) 75 mg PO DAILY [facility] Last Admin: 12/16/17 09:53 Dose: 75 mg Enoxaparin Sodium (Lovenox) 30 mg SC DAILY [facility] PRN Reason: Protocol Last Admin: 12/16/17 09:52 Dose: 30 mg Famotidine (Pepcid) 20 mg PO DAILY [facility] Last Admin: 12/16/17 09:53 Dose: 20 mg Furosemide (Lasix) 40 mg PO DAILY [facility] Glipizide (Glucotrol Xl) 2.5 mg PO DAILY [facility] Last Admin: 12/16/17 09:12 Dose: 2.5 mg Ampicillin Sodium/Sulbactam (Sodium 1.5 gm/ Sodium Chloride) 100 mls @ 100 mls/ hr IVPB Q12 [facility] PRN Reason: Protocol Last Admin: 12/16/17 21:52 Dose: 100 mls/hr Ciprofloxacin (Cipro 200mg/100ml D5w) 100 mls @ 100 mls/hr IVPB Q12 [facility] PRN Reason: Protocol Last Admin: 12/16/17 20:48 Dose: 100 mls/hr Isosorbide Mononitrate (Imdur Er) 30 mg PO DAILY [facility] Last Admin: 12/16/17 09:13 Dose: 30 mg Methimazole (Tapazole) 5 mg PO DAILY [facility] Last Admin: 12/16/17 09:54 Dose: 5 mg Metoprolol Tartrate (Lopressor) 25 mg PO Q12 [facility] Last Admin: 12/16/17 21:53 Dose: 25 mg Tramadol HCl (Ultram) 50 mg PO Q8H PRN PRN Reason: Pain, moderate (4-7) Last Admin: 12/16/17 14:12 Dose: 50 mg - Labs Labs: 12/16/17 11:10 12/16/17 11:10 - Constitutional Appears: Non-toxic, No Acute Distress - Neck Exam Neck Exam: Normal Inspection - Respiratory Exam Respiratory Exam: NORMAL BREATHING PATTERN - Cardiovascular Exam Cardiovascular Exam: +S1, +S2 - Extremities Exam Additional comments: Dressing to the lower extremity present. Serous drainage strikethrough noted to LE dressings. Dressings intact. - Neurological Exam Neurological Exam: Alert, Awake, Oriented x3 Assessment and Plan - Assessment and Plan (Free Text) Assessment: 77F with b/l lower extremity wounds 2/2 to edema caused by venous insufficiency vs CHF Plan: - determine cause of LE edema - LE edema and wound management per podiatry - c/w elevation of LE - further recs per Dr. Woods - recommends circaid lower extremity compression Jabier Fuentes DPM
[2017-12-17] MEDS: GlipiZIDE 2.5 mg SR Tab PO SCH (08:42)
--- NOTE | 2017-12-17 09:14 | CP.PCM.PN ---
Subjective - Date & Time of Evaluation Date of Evaluation: 12/17/17 Time of Evaluation: 08:30 - Subjective Subjective: NO CHEST PAIN OR SOB Objective - Vital Signs/Intake and Output Vital Signs (last 24 hours): Temp Pulse Resp BP Pulse Ox 97.3 F L 71 20 111/59 L 99 12/17/17 08:42 12/17/17 08:42 12/17/17 08:42 12/17/17 08:42 12/17/17 08:42 - Medications Medications: Current Medications Acetaminophen (Tylenol 325mg Tab) 650 mg PO Q4 PRN PRN Reason: Pain, Mild (1-3) Last Admin: 12/15/17 01:41 Dose: 650 mg Bacitracin (Bacitracin Oint) 1 applic TOP DAILY [facility] Last Admin: 12/17/17 08:31 Dose: 1 applic Clopidogrel Bisulfate (Plavix) 75 mg PO DAILY [facility] Last Admin: 12/17/17 08:32 Dose: 75 mg Enoxaparin Sodium (Lovenox) 30 mg SC DAILY [facility] PRN Reason: Protocol Last Admin: 12/17/17 08:31 Dose: 30 mg Famotidine (Pepcid) 20 mg PO DAILY [facility] Last Admin: 12/17/17 08:32 Dose: 20 mg Furosemide (Lasix) 40 mg PO DAILY [facility] Last Admin: 12/17/17 08:33 Dose: 40 mg Glipizide (Glucotrol Xl) 2.5 mg PO DAILY [facility] Last Admin: 12/17/17 08:42 Dose: 2.5 mg Ampicillin Sodium/Sulbactam (Sodium 1.5 gm/ Sodium Chloride) 100 mls @ 100 mls/ hr IVPB Q12 [facility] PRN Reason: Protocol Last Admin: 12/17/17 08:35 Dose: 100 mls/hr Ciprofloxacin (Cipro 200mg/100ml D5w) 100 mls @ 100 mls/hr IVPB Q12 [facility] PRN Reason: Protocol Last Admin: 12/17/17 08:35 Dose: 100 mls/hr Isosorbide Mononitrate (Imdur Er) 30 mg PO DAILY [facility] Last Admin: 12/17/17 08:32 Dose: 30 mg Methimazole (Tapazole) 5 mg PO DAILY [facility] Last Admin: 12/17/17 08:32 Dose: 5 mg Metoprolol Tartrate (Lopressor) 25 mg PO Q12 [facility] Last Admin: 12/17/17 08:40 Dose: Not Given Tramadol HCl (Ultram) 50 mg PO Q8H PRN PRN Reason: Pain, moderate (4-7) Last Admin: 12/16/17 14:12 Dose: 50 mg - Labs Labs: 12/16/17 11:10 12/16/17 11:10 - Respiratory Exam Respiratory Exam: Clear to Ausculation Bilateral - Cardiovascular Exam Cardiovascular Exam: REGULAR RHYTHM, +S1, +S2 - Extremities Exam Additional comments: LE BLISTERING AND ULCERATIONS Assessment and Plan - Assessment and Plan (Free Text) Assessment: CAD-STABLE HYPERTENSION CHRONIC DIASTOLIC CHF LE VENOUS INSUFFICIENCY WITH SKIN BLISTERING AND ULCERATIONS Plan: CONTINUE ANTIBIOTICS, NITRATES, FUROSEMIDE, METOPROLOL, CLOPIDOGREL AND LOVENOX PODIATRY CARE
[2017-12-17] MEDS: Lactobacillus Acidophilus 500 MU Cap PO SCH ×2 (13:12→17:14)
--- NOTE | 2017-12-17 15:05 | PQF GENQUE ---
Dr. Young, Please specify the acuity of Diastolic heart failure in your progress notes . . ACUITY: Acute Chronic Acute on chronic Other (please specify) Clinically unable to determine Unknown ProBNP:[id number] 12/14 CXR: IMPRESSION: Pulmonary vascular congestion and small bilateral pleural effusions. 12/14:ER note: Impression includes; CHF Exacerbation H and P: History includes: CKD--admitted with lower extremity edema and inability to walk Assessment:-- Low ext edema with blisters- etiol? Venous Insuff?? Infectious? Hx Serratia G- Leg elevation ID Podiatry --CHF Diastolic CAD stress thalium scarring ischemia?? cardiac cath refused?? Cardiology Stress test?? --Hx COPD L Pleural effusion CT scan improvement --Hx Anemia ASA d/c as outpt due to dec Hbg Stool for OB ?? --NIDDM Thyroid dx Endo 12/15: Cardiology consult: Diagnoses include:CHRONIC DIASTOLIC CHF IV Lasix once in ER, Lasix 40 mg daily -D/Jose Daniel 12/16 This form is a permanent part of the medical record Clarification of your documentation is requested to better reflect the severity of illness and intensity of treatment of your patient. Indicators present [] Specify: [] [] Specify: [] [] Specify: [] [] Specify: [] Location in the medical record that reflects the above clinical findings: [] Treatment Provided: [] PHYSICIAN'S RESPONSE Based on your medical judgment of the clinical indicators outlined above please clarify the following: [] Practitioner response [] If unable to determine, please check the box, sign and date. Present On Admission (POA) Indicator: [] Present at the time of admission [] Not present at the time of admission [] Clinically Undetermined In responding to this query, please exercise your independent professional judgment. The fact that a question is asked does not imply that any particular answer is desired or expected. Thank you for your clarification on this documentation. If you have any questions please call. * Thank you, Theresa Page RN ext. #[phone] MTDD
--- NOTE | 2017-12-17 17:22 | CP.PCM.PN ---
Subjective - Date & Time of Evaluation Date of Evaluation: 12/17/17 Time of Evaluation: 22:22 - Subjective Subjective: Above noted Objective - Vital Signs/Intake and Output Vital Signs (last 24 hours): Temp Pulse Resp BP Pulse Ox 97.5 F L 68 17 111/48 L 99 12/17/17 16:51 12/17/17 16:51 12/17/17 16:51 12/17/17 16:51 12/17/17 16:51 - Medications Medications: Current Medications Acetaminophen (Tylenol 325mg Tab) 650 mg PO Q4 PRN PRN Reason: Pain, Mild (1-3) Last Admin: 12/15/17 01:41 Dose: 650 mg Bacitracin (Bacitracin Oint) 1 applic TOP DAILY [facility] Last Admin: 12/17/17 08:31 Dose: 1 applic Clopidogrel Bisulfate (Plavix) 75 mg PO DAILY [facility] Last Admin: 12/17/17 08:32 Dose: 75 mg Enoxaparin Sodium (Lovenox) 30 mg SC DAILY [facility] PRN Reason: Protocol Last Admin: 12/17/17 08:31 Dose: 30 mg Famotidine (Pepcid) 20 mg PO DAILY [facility] Last Admin: 12/17/17 08:32 Dose: 20 mg Furosemide (Lasix) 40 mg PO DAILY [facility] Last Admin: 12/17/17 08:33 Dose: 40 mg Glipizide (Glucotrol Xl) 2.5 mg PO DAILY [facility] Last Admin: 12/17/17 08:42 Dose: 2.5 mg Ampicillin Sodium/Sulbactam (Sodium 1.5 gm/ Sodium Chloride) 100 mls @ 100 mls/ hr IVPB Q12 [facility] PRN Reason: Protocol Last Admin: 12/17/17 08:35 Dose: 100 mls/hr Ciprofloxacin (Cipro 200mg/100ml D5w) 100 mls @ 100 mls/hr IVPB Q12 [facility] PRN Reason: Protocol Last Admin: 12/17/17 08:35 Dose: 100 mls/hr Isosorbide Mononitrate (Imdur Er) 30 mg PO DAILY [facility] Last Admin: 12/17/17 08:32 Dose: 30 mg Lactobacillus Acidophilus (Bacid Acidophilus) 1 cap PO BID [facility] Last Admin: 12/17/17 17:14 Dose: 1 cap Methimazole (Tapazole) 5 mg PO DAILY [facility] Last Admin: 12/17/17 08:32 Dose: 5 mg Metoprolol Tartrate (Lopressor) 25 mg PO Q12 [facility] Last Admin: 12/17/17 08:40 Dose: Not Given Tramadol HCl (Ultram) 50 mg PO TID PRN PRN Reason: Pain, moderate (4-7) Last Admin: 12/17/17 17:12 Dose: 50 mg - Labs Labs: 12/16/17 11:10 12/16/17 11:10 - Respiratory Exam Respiratory Exam: NORMAL BREATHING PATTERN - Cardiovascular Exam Cardiovascular Exam: REGULAR RHYTHM - GI/Abdominal Exam GI & Abdominal Exam: Normal Bowel Sounds Assessment and Plan - Assessment and Plan (Free Text) Assessment: Low ext edema with blisters- etiol? Venous Insuff?? Infectious? Hx Serratia G- Leg elevation IV ABX ID Podiatry Surgery CHF Diastolic CAD stress thalium scarring ischemia?? cardiac cath refused?? Cardiology Hx COPD L Pleural effusion Pulmonary Hx Anemia ASA d/c as outpt due to dec Hbg Stool for OB ?? Hematology consult NIDDM Thyroid dx Endo
--- NOTE | 2017-12-17 19:45 | CP.PCM.CON ---
History of Present Illness - History of Present Illness History of Present Illness: 77 year old female with a history of DM, CAD, CHF, chronic anemia, admitted with lower extremity swelling and infected skin wounds with anemia. The patient is well known to me from her prior admission. Her anemia work up showed declining iron stores and anemia of chronic disease. Her hgb on D/C was around 10 but has no nadired at around 8. She denies abnormal bleeding but notes she bruises easily. She is currently on Plavix and had aspirin discontinued in the past for declining H/H. She currently notes to progressive fatigue. She denies chest pain and shortness of breath. Past medical history: DM, CAD, CHF, anemia Past surgical history: Denies Family history: Denies hematologic and oncologic problems Social history: Former tobacco Allergies: NKA Review of systems: All remaining review of systems including HEENT, cardiovascular, respiratory, gastrointestinal, genitourinary, musculoskeletal, dermatologic, neurologic, and psychiatric are negative unless mentioned in the HPI. Past Patient History - Infectious Disease Hx of Infectious Diseases: None - Past Medical History & Family History Past Medical History?: Yes Past Family History: Reviewed and not pertinent - Past Social History Smoking Status: Former Smoker Chewing Tobacco Use: No Cigar Use: No Alcohol: Social Drugs: Denies Home Situation {Lives}: Alone - CARDIAC Hx Congestive Heart Failure: Yes Hx Hypercholesterolemia: Yes Hx Hypertension: Yes - PULMONARY Hx Chronic Obstructive Pulmonary Disease (COPD): Yes - NEUROLOGICAL Other/Comment: Paresthesias of both feet - HEENT Hx HEENT Problems: No - RENAL Hx Chronic Kidney Disease: Yes Hx Kidney Stones: Yes (kidney stone removal) - ENDOCRINE/METABOLIC Hx Diabetes Mellitus Type 2: Yes - HEMATOLOGICAL/ONCOLOGICAL Hx Anemia: Yes Hx Human Immunodeficiency Virus (HIV): No - INTEGUMENTARY Hx Dermatological Problems: Yes Other/Comment: Dependent edema of both lower extremities with blister formation - MUSCULOSKELETAL/RHEUMATOLOGICAL Hx Falls: No Hx Unsteady Gait: Yes - GASTROINTESTINAL Hx Gastrointestinal Disorders: No - GENITOURINARY/GYNECOLOGICAL Hx Genitourinary Disorders: No - PSYCHIATRIC Hx Psychophysiologic Disorder: No Hx Substance Use: No - SURGICAL HISTORY Hx Appendectomy: Yes Other/Comment: kidney stone removal - ANESTHESIA Hx Anesthesia: Yes Hx Anesthesia Reactions: No Hx Malignant Hyperthermia: No Meds Allergies/Adverse Reactions: Allergies Allergy/AdvReac Type Severity Reaction Status Date / Time No Known Allergies Allergy Verified 11/08/17 15:56 - Medications Medications: Current Medications Acetaminophen (Tylenol 325mg Tab) 650 mg PO Q4 PRN PRN Reason: Pain, Mild (1-3) Last Admin: 12/15/17 01:41 Dose: 650 mg Bacitracin (Bacitracin Oint) 1 applic TOP DAILY [facility] Last Admin: 12/17/17 08:31 Dose: 1 applic Clopidogrel Bisulfate (Plavix) 75 mg PO DAILY [facility] Last Admin: 12/17/17 08:32 Dose: 75 mg Enoxaparin Sodium (Lovenox) 30 mg SC DAILY [facility] PRN Reason: Protocol Last Admin: 12/17/17 08:31 Dose: 30 mg Famotidine (Pepcid) 20 mg PO DAILY [facility] Last Admin: 12/17/17 08:32 Dose: 20 mg Furosemide (Lasix) 40 mg PO DAILY [facility] Last Admin: 12/17/17 08:33 Dose: 40 mg Glipizide (Glucotrol Xl) 2.5 mg PO DAILY [facility] Last Admin: 12/17/17 08:42 Dose: 2.5 mg Ampicillin Sodium/Sulbactam (Sodium 1.5 gm/ Sodium Chloride) 100 mls @ 100 mls/ hr IVPB Q12 [facility] PRN Reason: Protocol Last Admin: 12/17/17 08:35 Dose: 100 mls/hr Ciprofloxacin (Cipro 200mg/100ml D5w) 100 mls @ 100 mls/hr IVPB Q12 [facility] PRN Reason: Protocol Last Admin: 12/17/17 08:35 Dose: 100 mls/hr Isosorbide Mononitrate (Imdur Er) 30 mg PO DAILY [facility] Last Admin: 12/17/17 08:32 Dose: 30 mg Lactobacillus Acidophilus (Bacid Acidophilus) 1 cap PO BID [facility] Last Admin: 12/17/17 17:14 Dose: 1 cap Methimazole (Tapazole) 5 mg PO DAILY [facility] Last Admin: 12/17/17 08:32 Dose: 5 mg Metoprolol Tartrate (Lopressor) 25 mg PO Q12 [facility] Last Admin: 12/17/17 08:40 Dose: Not Given Tramadol HCl (Ultram) 50 mg PO TID PRN PRN Reason: Pain, moderate (4-7) Last Admin: 12/17/17 17:12 Dose: 50 mg Physical Exam - Head Exam Head Exam: ATRAUMATIC - Eye Exam Eye Exam: Normal appearance - ENT Exam ENT Exam: Mucous Membranes Dry - Respiratory Exam Respiratory Exam: NORMAL BREATHING PATTERN - Cardiovascular Exam Cardiovascular Exam: +S1, +S2 - GI/Abdominal Exam GI & Abdominal Exam: Normal Bowel Sounds - Extremities Exam Extremities exam: Positive for: pedal edema - Neurological Exam Neurological exam: Oriented x3 - Psychiatric Exam Psychiatric exam: Normal Affect, Normal Mood - Skin Skin Exam: Warm Results - Vital Signs Recent Vital Signs: Last Vital Signs Temp 97.5 F L 12/17/17 16:51 Pulse 68 12/17/17 16:51 Resp 17 12/17/17 16:51 BP 111/48 L 12/17/17 16:51 Pulse Ox 99 12/17/17 16:51 - Labs Result Diagrams: 12/16/17 11:10 12/16/17 11:10 Labs: Laboratory Results - last 24 hr 12/16/17 12/17/17 12/17/17 22:01 05:49 11:10 POC Glucose (mg/dL) 127 H 123 H 147 H 12/17/17 15:32 POC Glucose (mg/dL) 132 H Assessment & Plan (1) Anemia Assessment and Plan: iron stores declining; declining ferritin will hold off on IV iron given active infection; will start daily oral iron anemia of chronic disease from infection and anemia of CKD; will start Procrit in an attempt to decrease transfusion requirements FOBT pending Thank you for this interesting consult. Status: Acute
[2017-12-17] MEDS ORDERED: Epoetin Alfa 20000 UNIT/ML (RENAL DOSE) SC ONE (19:49)
--- NOTE | 2017-12-17 20:20 | PN ---
ENDOCRINOLOGY FOLLOWUP NOTE DATE: LOCATION: In room 668 SUBJECTIVE: This is a 77-year-old female with recent uncontrolled type 2 diabetes presenting here with congestive heart failure and worsening lower extremity neuropathic ulcerations and is being followed closely for metabolic management. Her glycemic levels are fluctuating, but improved and the glucose values have ranged from 123 to 127 and 147 mg/dL. Her latest chemistry showed a BUN of 43, sodium 145, potassium 4.1, chloride 105, CO2 of 19, chloride 75, glucose of 132, and creatinine 1.3. Her hemoglobin A1c is 5.7%, which is really excellent in terms of her metabolic control because of the very poor and new oral portions as noted. Her thyroid studies are also near optimal and really remains clinically and biochemically euthyroid at this time. Her latest thyroid studies showed a T4 of 7.15 with a TSH of 2.91. So, at this time, we will continue the same low-dose oral hypoglycemic therapy with glipizide given as 2.5 mg once daily as ordered. We will continue her Tapazole given also as 5 mg once daily in the morning as given. We will obtain serial thyroid studies and titrate her dose regimen accordingly. We will also repeat serial chemistries and supplement accordingly as needed. We will follow. Lucia Corley MD
[2017-12-18 00:46] VITALS: O2SAT 96
[2017-12-18 06:37] LABS: HEMOGLOBIN 8.8 g/dL (12.0-16.0); MEAN CELL VOLUME 85.3 fl (81.0-99.0); MEAN CORPUSCULAR HEMOGLOBIN 26.5 pg (27.0-31.0); RBC 3.31 Mil/uL (3.80-5.20); WHITE BLOOD COUNT 9.7 K/uL (4.8-10.8)
[2017-12-18 06:38] LABS: CALCIUM 9.1 mg/dL (8.4-10.2)
[2017-12-18] MEDS: Lactobacillus Acidophilus 500 MU Cap PO SCH (08:12)
[2017-12-18] MEDS: GlipiZIDE 2.5 mg SR Tab PO SCH (08:12)
[2017-12-18] MEDS: methIMAzole 5 MG TAB PO SCH (08:12)
[2017-12-18] MEDS: Enoxaparin 30 mg Syringe SC SCH (08:13)
[2017-12-18 08:15] VITALS: BP 117/65
[2017-12-18] MEDS: Ciprofloxacin 200mg/100ml D5W 100 ML IVPB SCH (08:15)
[2017-12-18] MEDS: Bacitracin OINT 15GM TOP SCH (08:15)
[2017-12-18 08:26] VITALS: PULSE 71; RESP 18; TEMP 97.3
--- NOTE | 2017-12-18 09:28 | CP.PCM.PN ---
Subjective - Date & Time of Evaluation Date of Evaluation: 12/18/17 Time of Evaluation: 09:27 - Subjective Subjective: 77 year old female seen at bedside for multiple lysed, blisters with some underlying infected wounds to her b/l LE. Patient states that the wounds that are open continue to be painful today but pain is controlled with medication. Denies any acute overnight events. Is AAO x 3 and NAD at time of visit. She denies any further pedal complaints at this time. Admits to not elevating her legs like she has been instructed to do, loosed her bandaged overnight as patient states she could not tolerate the pain; per nursing, Dr. Hernandez was called and pain medication was adjusted. Denies any recent N/V/F/C/CP/SOB/D/ posterior calf pain when squeezed. Objective - Vital Signs/Intake and Output Vital Signs (last 24 hours): Temp Pulse Resp BP Pulse Ox 97.3 F L 71 18 117/65 96 12/18/17 08:25 12/18/17 08:25 12/18/17 08:25 12/18/17 08:25 12/18/17 08:25 - Medications Medications: Current Medications Acetaminophen (Tylenol 325mg Tab) 650 mg PO Q4 PRN PRN Reason: Pain, Mild (1-3) Last Admin: 12/15/17 01:41 Dose: 650 mg Bacitracin (Bacitracin Oint) 1 applic TOP DAILY [facility] Last Admin: 12/18/17 08:15 Dose: 1 applic Clopidogrel Bisulfate (Plavix) 75 mg PO DAILY [facility] Last Admin: 12/18/17 08:12 Dose: 75 mg Docusate Sodium (Colace) 100 mg PO DAILY [facility] Last Admin: 12/18/17 08:12 Dose: 100 mg Enoxaparin Sodium (Lovenox) 30 mg SC DAILY [facility] PRN Reason: Protocol Last Admin: 12/18/17 08:13 Dose: 30 mg Famotidine (Pepcid) 20 mg PO DAILY [facility] Last Admin: 12/18/17 08:12 Dose: 20 mg Ferrous Sulfate (Feosol) 325 mg PO DAILY [facility] Last Admin: 12/18/17 08:12 Dose: 325 mg Furosemide (Lasix) 40 mg PO DAILY [facility] Last Admin: 12/18/17 08:12 Dose: 40 mg Glipizide (Glucotrol Xl) 2.5 mg PO DAILY [facility] Last Admin: 12/18/17 08:12 Dose: 2.5 mg Ampicillin Sodium/Sulbactam (Sodium 1.5 gm/ Sodium Chloride) 100 mls @ 100 mls/ hr IVPB Q12 [facility] PRN Reason: Protocol Last Admin: 12/18/17 08:14 Dose: 100 mls/hr Ciprofloxacin (Cipro 200mg/100ml D5w) 100 mls @ 100 mls/hr IVPB Q12 [facility] PRN Reason: Protocol Last Admin: 12/18/17 08:15 Dose: 100 mls/hr Isosorbide Mononitrate (Imdur Er) 30 mg PO DAILY [facility] Last Admin: 12/18/17 08:12 Dose: 30 mg Lactobacillus Acidophilus (Bacid Acidophilus) 1 cap PO BID [facility] Last Admin: 12/18/17 08:12 Dose: 1 cap Methimazole (Tapazole) 5 mg PO DAILY [facility] Last Admin: 12/18/17 08:12 Dose: 5 mg Metoprolol Tartrate (Lopressor) 25 mg PO Q12 [facility] Last Admin: 12/18/17 08:19 Dose: Not Given Tramadol HCl (Ultram) 50 mg PO TID PRN PRN Reason: Pain, moderate (4-7) Last Admin: 12/18/17 08:10 Dose: 50 mg - Labs Labs: 12/18/17 06:05 12/18/17 06:05 - Constitutional Appears: Well, Non-toxic, No Acute Distress - Extremities Exam Additional comments: Vasc: DP pulses weakly palpable 1/4 b/l. Non- palpable PT pulses secondary to edema, +2 pitting edema to bilateral LE, TG wnl, CFT < 4 sec to all digits. Neuro: Epicritic and protective sensation grossly intact b/l Derm: Multiple chronic, lanced bullae noted to b/l legs. Most bullae sites are crusted over with no clinical signs of infection or cellulitic changes. One superficial open lysed blister measuring roughly 2 cm x 2 cm x 0.1 cm seen on posteriomedial left leg. serous drainage, minimal malodor, minimal periwound erythema noted. Second, larger open blister noted to posterior right calf measuring roughly 8 cm x 5 cm x 0.2 cm. serous drainage, minimal malodor, minimal periwound erythema noted. Crusted cap of third blister has fallen off of anterior left leg revealing roughly 2 cm x 3 cm x 0.2 cm superficial ulceration underneath with serous drainage and no other clinical signs of infection Ortho: Helene's sign negative b/l. All open blister sites painful to palpation - Neurological Exam Neurological Exam: Alert, Awake, Oriented x3 - Psychiatric Exam Psychiatric exam: Normal Affect, Normal Mood Assessment and Plan - Assessment and Plan (Free Text) Assessment: 77 year old female seen at bedside for multiple lysed, blisters with some underlying infected wounds to her b/l LE. Plan: Patient seen and evaluated at bedside Plan discussed with attending Dr. Briseno Charts, Labs and vitals reviewed Afebrile, absent leukocytosis Continue IV abx per ID Continue medical management per Medicine Wound Cx- Prelim, Gram negative chuckie, gram positive cocci Venous duplex - No evidence of LE DVT Arterial Duplex - Diffuse atherosclerotic changes b/l Dr. Damon evaluated patient -ABD Angio ordered, will follow-up with results Wounds scrubbed with hibiclense solution and saline, dressed with alginate, ABD , DSD, CHAITANYA for light compression No plan for surgical intervention at this time Podiatry will continue to follow while patient in house
--- NOTE | 2017-12-18 09:55 | CP.PCM.PN ---
Subjective - Date & Time of Evaluation Date of Evaluation: 12/18/17 Time of Evaluation: 09:51 - Subjective Subjective: Seated on edge of bed with both lower remedies dangling. Vital signs have remained stable. She continues to be afebrile. Lab work reviewed with declining renal function noted. Pressure dressings to both lower extremities have just been applied by podiatry. There appears to be significant reduction in the amount of edema in both lower extremities. There are still some pitting edema present in the distal right thigh. No visible cyanosis. Neck supple and trachea is midline. No dullness noted on chest percussion. Breath sounds are diminished bilaterally, especially so in the bases. Few scattered dry to medium rales in the lower lobes posteriorly. Notable wheezing. No bronchial breathing or egophony. Heart sounds are distant and the rhythm is regular. Continued improvement with regards to the venous insufficiency in both lower extremities. Medically stable, receiving parenteral antibiotics for recurrent multiorganism wound infections. We'll follow-up with PA/lateral chest x-ray to monitor left lower lobe findings. Objective - Vital Signs/Intake and Output Vital Signs (last 24 hours): Temp Pulse Resp BP Pulse Ox 97.3 F L 71 18 117/65 96 12/18/17 08:25 12/18/17 08:25 12/18/17 08:25 12/18/17 08:25 12/18/17 08:25 - Medications Medications: Current Medications Acetaminophen (Tylenol 325mg Tab) 650 mg PO Q4 PRN PRN Reason: Pain, Mild (1-3) Last Admin: 12/15/17 01:41 Dose: 650 mg Bacitracin (Bacitracin Oint) 1 applic TOP DAILY [facility] Last Admin: 12/18/17 08:15 Dose: 1 applic Clopidogrel Bisulfate (Plavix) 75 mg PO DAILY [facility] Last Admin: 12/18/17 08:12 Dose: 75 mg Docusate Sodium (Colace) 100 mg PO DAILY [facility] Last Admin: 12/18/17 08:12 Dose: 100 mg Enoxaparin Sodium (Lovenox) 30 mg SC DAILY [facility] PRN Reason: Protocol Last Admin: 12/18/17 08:13 Dose: 30 mg Famotidine (Pepcid) 20 mg PO DAILY [facility] Last Admin: 12/18/17 08:12 Dose: 20 mg Ferrous Sulfate (Feosol) 325 mg PO DAILY [facility] Last Admin: 12/18/17 08:12 Dose: 325 mg Furosemide (Lasix) 40 mg PO DAILY [facility] Last Admin: 12/18/17 08:12 Dose: 40 mg Glipizide (Glucotrol Xl) 2.5 mg PO DAILY [facility] Last Admin: 12/18/17 08:12 Dose: 2.5 mg Ampicillin Sodium/Sulbactam (Sodium 1.5 gm/ Sodium Chloride) 100 mls @ 100 mls/ hr IVPB Q12 [facility] PRN Reason: Protocol Last Admin: 12/18/17 08:14 Dose: 100 mls/hr Ciprofloxacin (Cipro 200mg/100ml D5w) 100 mls @ 100 mls/hr IVPB Q12 [facility] PRN Reason: Protocol Last Admin: 12/18/17 08:15 Dose: 100 mls/hr Isosorbide Mononitrate (Imdur Er) 30 mg PO DAILY [facility] Last Admin: 12/18/17 08:12 Dose: 30 mg Lactobacillus Acidophilus (Bacid Acidophilus) 1 cap PO BID [facility] Last Admin: 12/18/17 08:12 Dose: 1 cap Methimazole (Tapazole) 5 mg PO DAILY [facility] Last Admin: 12/18/17 08:12 Dose: 5 mg Metoprolol Tartrate (Lopressor) 25 mg PO Q12 [facility] Last Admin: 12/18/17 08:19 Dose: Not Given Tramadol HCl (Ultram) 50 mg PO TID PRN PRN Reason: Pain, moderate (4-7) Last Admin: 12/18/17 08:10 Dose: 50 mg - Labs Labs: 12/18/17 06:05 12/18/17 06:05 Assessment and Plan (1) Edema of both lower extremities due to peripheral venous insufficiency Status: Chronic (2) Diabetic neuropathy Status: Chronic (3) Hyperthyroidism Status: Chronic (4) Pleural effusion Status: Chronic (5) Type 2 diabetes mellitus Status: Chronic
--- NOTE | 2017-12-18 10:28 | CP.PCM.PN ---
Subjective - Date & Time of Evaluation Date of Evaluation: 12/18/17 Time of Evaluation: 10:26 - Subjective Subjective: General Surgery Progress Note- Dr. Woods 77 y.o female seen and examined at bedside. Patient seen with dressings on c/d/ i without CHAITANYA compression on. Patient sitting on side of bed, hanging legs in dependent position. Patient reports decreased pain to the LE. Patient denies nausea, fever, shortness of breath, chest pains or chills. Denies acute overnight events. Objective - Vital Signs/Intake and Output Vital Signs (last 24 hours): Temp Pulse Resp BP Pulse Ox 97.3 F L 71 18 117/65 96 12/18/17 08:25 12/18/17 08:25 12/18/17 08:25 12/18/17 08:25 12/18/17 08:25 - Medications Medications: Current Medications Acetaminophen (Tylenol 325mg Tab) 650 mg PO Q4 PRN PRN Reason: Pain, Mild (1-3) Last Admin: 12/15/17 01:41 Dose: 650 mg Bacitracin (Bacitracin Oint) 1 applic TOP DAILY [facility] Last Admin: 12/18/17 08:15 Dose: 1 applic Clopidogrel Bisulfate (Plavix) 75 mg PO DAILY [facility] Last Admin: 12/18/17 08:12 Dose: 75 mg Docusate Sodium (Colace) 100 mg PO DAILY [facility] Last Admin: 12/18/17 08:12 Dose: 100 mg Enoxaparin Sodium (Lovenox) 30 mg SC DAILY [facility] PRN Reason: Protocol Last Admin: 12/18/17 08:13 Dose: 30 mg Famotidine (Pepcid) 20 mg PO DAILY [facility] Last Admin: 12/18/17 08:12 Dose: 20 mg Ferrous Sulfate (Feosol) 325 mg PO DAILY [facility] Last Admin: 12/18/17 08:12 Dose: 325 mg Furosemide (Lasix) 40 mg PO DAILY [facility] Last Admin: 12/18/17 08:12 Dose: 40 mg Glipizide (Glucotrol Xl) 2.5 mg PO DAILY [facility] Last Admin: 12/18/17 08:12 Dose: 2.5 mg Ampicillin Sodium/Sulbactam (Sodium 1.5 gm/ Sodium Chloride) 100 mls @ 100 mls/ hr IVPB Q12 [facility] PRN Reason: Protocol Last Admin: 12/18/17 08:14 Dose: 100 mls/hr Ciprofloxacin (Cipro 200mg/100ml D5w) 100 mls @ 100 mls/hr IVPB Q12 [facility] PRN Reason: Protocol Last Admin: 12/18/17 08:15 Dose: 100 mls/hr Isosorbide Mononitrate (Imdur Er) 30 mg PO DAILY [facility] Last Admin: 12/18/17 08:12 Dose: 30 mg Lactobacillus Acidophilus (Bacid Acidophilus) 1 cap PO BID [facility] Last Admin: 12/18/17 08:12 Dose: 1 cap Methimazole (Tapazole) 5 mg PO DAILY [facility] Last Admin: 12/18/17 08:12 Dose: 5 mg Metoprolol Tartrate (Lopressor) 25 mg PO Q12 [facility] Last Admin: 12/18/17 08:19 Dose: Not Given Tramadol HCl (Ultram) 50 mg PO TID PRN PRN Reason: Pain, moderate (4-7) Last Admin: 12/18/17 08:10 Dose: 50 mg - Labs Labs: 12/18/17 06:05 12/18/17 06:05 - Constitutional Appears: Well, Non-toxic, No Acute Distress - Head Exam Head Exam: NORMOCEPHALIC - ENT Exam ENT Exam: Mucous Membranes Moist - Respiratory Exam Respiratory Exam: NORMAL BREATHING PATTERN - Cardiovascular Exam Cardiovascular Exam: +S1, +S2 - GI/Abdominal Exam GI & Abdominal Exam: Soft - Extremities Exam Extremities Exam: absent: Calf Tenderness Additional comments: Dressing to LE is c/d/i without strikethrough CHAITANYA compression intact - Psychiatric Exam Psychiatric exam: Normal Affect, Normal Mood Assessment and Plan - Assessment and Plan (Free Text) Assessment: 77F with b/l lower extremity wounds 2/2 to edema caused by venous insufficiency vs CHF Plan: - determine cause of LE edema - LE edema and wound management per podiatry - c/w elevation of LE - further recs per Dr. Woods - recommends circaid lower extremity compression Jabier Fuentes DPM
--- NOTE | 2017-12-18 15:17 | CP.PCM.PN ---
Subjective - Date & Time of Evaluation Date of Evaluation: 12/18/17 Time of Evaluation: 15:00 - Subjective Subjective: NO CHEST PAIN OR SOB Objective - Vital Signs/Intake and Output Vital Signs (last 24 hours): Temp Pulse Resp BP Pulse Ox 97.3 F L 71 18 117/65 96 12/18/17 08:25 12/18/17 08:25 12/18/17 08:25 12/18/17 08:25 12/18/17 08:25 - Medications Medications: Current Medications Acetaminophen (Tylenol 325mg Tab) 650 mg PO Q4 PRN PRN Reason: Pain, Mild (1-3) Last Admin: 12/15/17 01:41 Dose: 650 mg Bacitracin (Bacitracin Oint) 1 applic TOP DAILY [facility] Last Admin: 12/18/17 08:15 Dose: 1 applic Clopidogrel Bisulfate (Plavix) 75 mg PO DAILY [facility] Last Admin: 12/18/17 08:12 Dose: 75 mg Docusate Sodium (Colace) 100 mg PO DAILY [facility] Last Admin: 12/18/17 08:12 Dose: 100 mg Enoxaparin Sodium (Lovenox) 30 mg SC DAILY [facility] PRN Reason: Protocol Last Admin: 12/18/17 08:13 Dose: 30 mg Famotidine (Pepcid) 20 mg PO DAILY [facility] Last Admin: 12/18/17 08:12 Dose: 20 mg Ferrous Sulfate (Feosol) 325 mg PO DAILY [facility] Last Admin: 12/18/17 08:12 Dose: 325 mg Furosemide (Lasix) 40 mg PO DAILY [facility] Last Admin: 12/18/17 08:12 Dose: 40 mg Glipizide (Glucotrol Xl) 2.5 mg PO DAILY [facility] Last Admin: 12/18/17 08:12 Dose: 2.5 mg Ampicillin Sodium/Sulbactam (Sodium 1.5 gm/ Sodium Chloride) 100 mls @ 100 mls/ hr IVPB Q12 [facility] PRN Reason: Protocol Last Admin: 12/18/17 08:14 Dose: 100 mls/hr Ciprofloxacin (Cipro 200mg/100ml D5w) 100 mls @ 100 mls/hr IVPB Q12 [facility] PRN Reason: Protocol Last Admin: 12/18/17 08:15 Dose: 100 mls/hr Isosorbide Mononitrate (Imdur Er) 30 mg PO DAILY [facility] Last Admin: 12/18/17 08:12 Dose: 30 mg Lactobacillus Acidophilus (Bacid Acidophilus) 1 cap PO BID [facility] Last Admin: 12/18/17 08:12 Dose: 1 cap Methimazole (Tapazole) 5 mg PO DAILY [facility] Last Admin: 12/18/17 08:12 Dose: 5 mg Metoprolol Tartrate (Lopressor) 25 mg PO Q12 [facility] Last Admin: 12/18/17 08:19 Dose: Not Given Tramadol HCl (Ultram) 50 mg PO TID PRN PRN Reason: Pain, moderate (4-7) Last Admin: 12/18/17 14:20 Dose: 50 mg - Labs Labs: 12/18/17 06:05 12/18/17 06:05 - Respiratory Exam Respiratory Exam: Decreased Breath Sounds Additional comments: FEW SCATTERED RALES - Cardiovascular Exam Cardiovascular Exam: REGULAR RHYTHM, +S1, +S2 - Extremities Exam Additional comments: DECREASE IN LE EDEMA BLISTERING AND ULCERATIONS IMPROVING - Additional Findings Additional findings: BUN/CR 58/1.5 GFR 33 TODAY PULMONARY NOTE REVIEWED NOTE OF DR PINA REVIEWED Assessment and Plan - Assessment and Plan (Free Text) Assessment: VENOUS INSUFFICIENCY OF LE WITH BLISTERING AND ULCERATIONS. PAD? CAD CHRONIC MILD DIASTOLIC CHF HYPERTENSION TYPE 2 DM DECLINING RENAL FUNCTION-PATIENT IS PROBABLY PRERENAL FROM DIURESIS Plan: THE PATIENT IS REFUSING LE CT ANGIO SO FAR FOR PAD EVALUATION AND THE CT ANGIO SHOULD PROBABLY BE DEFERRED TO A LATER DATE DUE TO HER DECLINING RENAL FUNCTION PATIENT DISCUSSED WITH DR PINA CONTINUE METOPROLOL, ISOSORBIDE, CLOPIDOGREL AND ANTIBIOTICS WILL DISCONTINUE FUROSEMIDE FOR NOW THE LEG EDEMA HAS DECREASED SIGNIFICANTLY AND SHE IS PRE-RENAL
--- NOTE | 2017-12-18 18:31 | CP.PCM.HP ---
History of Present Illness - History of Present Illness History of Present Illness: 77 yo admitted for deconditioning Present on Admission - Present on Admission Any Indicators Present on Admission: No Past Patient History - Infectious Disease Hx of Infectious Diseases: None - Past Medical History & Family History Past Medical History?: Yes Past Family History: Reviewed and not pertinent - Past Social History Smoking Status: Former Smoker Chewing Tobacco Use: No Cigar Use: No Alcohol: Social Drugs: Denies Home Situation {Lives}: Alone - CARDIAC Hx Congestive Heart Failure: Yes Hx Hypercholesterolemia: Yes Hx Hypertension: Yes - PULMONARY Hx Chronic Obstructive Pulmonary Disease (COPD): Yes - NEUROLOGICAL Other/Comment: Paresthesias of both feet - HEENT Hx HEENT Problems: No - RENAL Hx Chronic Kidney Disease: Yes Hx Kidney Stones: Yes (kidney stone removal) - ENDOCRINE/METABOLIC Hx Diabetes Mellitus Type 2: Yes - HEMATOLOGICAL/ONCOLOGICAL Hx Anemia: Yes Hx Human Immunodeficiency Virus (HIV): No - INTEGUMENTARY Hx Dermatological Problems: Yes Other/Comment: Dependent edema of both lower extremities with blister formation - MUSCULOSKELETAL/RHEUMATOLOGICAL Hx Falls: No Hx Unsteady Gait: Yes - GASTROINTESTINAL Hx Gastrointestinal Disorders: No - GENITOURINARY/GYNECOLOGICAL Hx Genitourinary Disorders: No - PSYCHIATRIC Hx Psychophysiologic Disorder: No Hx Substance Use: No - SURGICAL HISTORY Hx Appendectomy: Yes Other/Comment: kidney stone removal - ANESTHESIA Hx Anesthesia: Yes Hx Anesthesia Reactions: No Hx Malignant Hyperthermia: No Meds Home Medications: Home Medication List Medication Instructions Recorded Confirmed Type AMPicillin/Sulbactam [Unasyn 1 1.5 gm IVPB Q12 #14 vial 12/18/17 Rx Gm-0.5 Gm] Bacitracin OINT 1 applic TOP DAILY tube 12/18/17 Rx Ciprofloxacin Lactate/D5w 200 mg IV Q12 #14 ml 12/18/17 Rx [Ciprofloxacn-D5w 200 mg/100 ml] Docusate [Colace] 100 mg PO DAILY cap 12/18/17 Rx Ferrous Sulfate [Feosol] 325 mg PO DAILY tab 12/18/17 Rx Lactobacillus Acidophilus [Bacid 1 cap PO BID cap 12/18/17 Rx Acidophilus] traMADol [Ultram] 50 mg PO TID PRN #10 tab 12/18/17 Rx Allergies/Adverse Reactions: Allergies Allergy/AdvReac Type Severity Reaction Status Date / Time No Known Allergies Allergy Verified 12/18/17 16:07 Physical Exam - Respiratory Exam Respiratory Exam: Wheezes, NORMAL BREATHING PATTERN - Cardiovascular Exam Cardiovascular Exam: REGULAR RHYTHM - GI/Abdominal Exam GI & Abdominal Exam: Normal Bowel Sounds Results - Vital Signs Recent Vital Signs: Last Vital Signs Temp 97.3 F L 12/18/17 08:25 Pulse 71 12/18/17 08:25 Resp 18 12/18/17 08:25 BP 117/65 12/18/17 08:25 Pulse Ox 96 12/18/17 08:25 - Labs Result Diagrams: 12/18/17 06:05 12/18/17 06:05 Labs: Laboratory Results - last 24 hr 12/17/17 12/18/17 12/18/17 21:27 05:36 06:05 WBC 9.7 RBC 3.31 L Hgb 8.8 L Hct 28.3 L MCV 85.3 MCH 26.5 L MCHC 31.0 L RDW 20.0 H Plt Count 432 H Sodium Potassium Chloride Carbon Dioxide Anion Gap BUN Creatinine Est GFR ( Amer) Est GFR (Non-Af Amer) POC Glucose (mg/dL) 110 132 H Random Glucose Calcium 12/18/17 12/18/17 12/18/17 06:05 11:18 15:47 WBC RBC Hgb Hct MCV MCH MCHC RDW Plt Count Sodium 138 Potassium 5.1 H Chloride 104 Carbon Dioxide 15 L Anion Gap 24 H BUN 58 H Creatinine 1.5 H Est GFR ( Amer) 41 Est GFR (Non-Af Amer) 33 POC Glucose (mg/dL) 126 H 130 H Random Glucose 140 H Calcium 9.1 Assessment & Plan - Assessment and Plan (Free Text) Assessment: Leg pain?? Low ext edema with blisters- etiol? Venous Insuff?? Infectious? Hx Serratia G- Leg elevation IV ABX ID Podiatry Surgery Neurology Physiatry CHF Diastolic CAD stress thalium scarring ischemia?? cardiac cath refused?? Cardiology Hx COPD L Pleural effusion Pulmonary Hx Anemia ASA d/c as outpt due to dec Hbg Stool for OB ?? Hematology consult NIDDM Thyroid dx Endo - Date & Time Date: 12/18/17 Time: 22:22
--- NOTE | 2017-12-18 20:31 | PN ---
ENDOCRINOLOGY FOLLOWUP NOTE DATE: LOCATION: In room 668. SUBJECTIVE: This is a 77-year-old female with recent uncontrolled type 2 diabetes and known history of hyperthyroidism and is being followed closely for metabolic management. Her oral intake has improved as noted. Her glucose values today have ranged from 126 to 130 mg/dL. Her latest chemistry showed a BUN of 58, sodium 138, potassium 5.1, chloride 104, CO2 of 15, glucose 140, and creatinine 1.5. So, at this time, we will continue the same low-dose oral hypoglycemic therapy as given with glipizide at 2.5 mg daily as ordered. We will continue also the Tapazole given as 5 mg daily as she continues to be clinically and biochemically euthyroid at this time. We will obtain serial chemistries and serial thyroid studies accordingly. Lucia Corley MD
--- NOTE | 2017-12-18 21:28 | CP.PCM.PN ---
Subjective - Date & Time of Evaluation Date of Evaluation: 12/18/17 Time of Evaluation: 10:00 - Subjective Subjective: Had pain in legs overnight, now improved. Objective - Vital Signs/Intake and Output Vital Signs (last 24 hours): Temp Pulse Resp BP Pulse Ox 97.3 F L 71 18 117/65 96 12/18/17 08:25 12/18/17 08:25 12/18/17 08:25 12/18/17 08:25 12/18/17 08:25 - Labs Labs: 12/18/17 06:05 12/18/17 06:05 - Head Exam Head Exam: ATRAUMATIC - Eye Exam Eye Exam: Normal appearance - ENT Exam ENT Exam: Mucous Membranes Dry - Respiratory Exam Respiratory Exam: NORMAL BREATHING PATTERN - Cardiovascular Exam Cardiovascular Exam: +S1, +S2 - GI/Abdominal Exam GI & Abdominal Exam: Normal Bowel Sounds - Extremities Exam Additional comments: b/l LE dressings Assessment and Plan (1) Anemia Assessment & Plan: iron stores declining; ferritin downtrending will hold off on IV iron given active infection; on oral iron with stool softener anemia of chronic disease from infection and anemia of CKD; given a dose of Procrit in an attempt to decrease transfusion requirements, can redose FOBT pending Status: Acute
== END 2017-12-18 16:07 | DRG 300 ==
LOC: H.ER 12:43 → H.ERHOLD 17:11 → H.MEDSURG1 21:23
PROVIDERS: ADMIT Family Medicine Geriatric Medicine; ATTEND Family Medicine Geriatric Medicine
DX: I87.2 Venous insufficiency (chronic) (peripheral) (principal); I13.0 Hypertensive heart and chronic kidney disease with heart failure and stage 1 through stage 4 chronic kidney disease, or unspecified chronic kidney disease; I50.32 Chronic diastolic (congestive) heart failure; L97.929 Non-pressure chronic ulcer of unspecified part of left lower leg with unspecified severity; L97.919 Non-pressure chronic ulcer of unspecified part of right lower leg with unspecified severity; Z87.891 Personal history of nicotine dependence; J44.9 Chronic obstructive pulmonary disease, unspecified; E11.40 Type 2 diabetes mellitus with diabetic neuropathy, unspecified; I25.10 Atherosclerotic heart disease of native coronary artery without angina pectoris; N18.9 Chronic kidney disease, unspecified; Z91.19 Patient's noncompliance with other medical treatment and regimen; E78.00 Pure hypercholesterolemia, unspecified; E05.00 Thyrotoxicosis with diffuse goiter without thyrotoxic crisis or storm; E78.5 Hyperlipidemia, unspecified; E11.22 Type 2 diabetes mellitus with diabetic chronic kidney disease; D63.1 Anemia in chronic kidney disease

== ENCOUNTER 2017-12-18 15:00 | Inpatient (IN) | payer OTHER ==
[2017-12-18 16:07] VITALS: BMI 27.4
[2017-12-18 16:37] VITALS: RESP 20
[2017-12-18] MEDS: Lactobacillus Acidophilus 500 MU Cap PO SCH (17:45)
[2017-12-18] MEDS: Ciprofloxacin 200mg/100ml D5W 100 ML IVPB SCH (17:48)
[2017-12-18] MEDS: AMPICILLIN IVPB SCH (20:28)
[2017-12-18] MEDS: SULBACTAM IVPB SCH (20:28)
[2017-12-18] MEDS ORDERED: CIPROFLOXACIN LACTATE IV SCH (21:00)
[2017-12-18] MEDS ORDERED: D5W IV SCH (21:00)
[2017-12-19] MEDS: Ciprofloxacin 200mg/100ml D5W 100 ML IVPB SCH ×2 (04:50→17:28)
[2017-12-19] MEDS: AMPICILLIN IVPB SCH ×2 (08:18→21:04)
[2017-12-19] MEDS: SULBACTAM IVPB SCH ×2 (08:18→21:04)
[2017-12-19] MEDS: GlipiZIDE 2.5 mg SR Tab PO SCH (08:19)
[2017-12-19] MEDS: Enoxaparin 30 mg Syringe SC SCH (08:20)
[2017-12-19] MEDS: Lactobacillus Acidophilus 500 MU Cap PO SCH ×2 (09:22→17:29)
[2017-12-19] MEDS: methIMAzole 5 MG TAB PO SCH (09:23)
[2017-12-19] MEDS: Bacitracin OINT 15GM TOP SCH (09:23)
--- NOTE | 2017-12-19 09:25 | CP.PCM.CON ---
History of Present Illness - History of Present Illness History of Present Illness: THE PATIENT IS A 77 YEAR OLD FEMALE WITH A HISTORY OF CAD, CHRONIC MILD DIASTOLIC CHF, HYPERTENSION, TYPE 2 DM AND LOWER EXTREMITY VENOUS INSUFFICIENCY. SHE WAS ADMITTED TO EARLIER IN THE WEEK FOR BILATERAL LEG EDEMA WITH BLISTERING AND ULCERATIONS AND WAS TREATING WITH IV ANTIBIOTICS, DIURETICS AND PODIATRY SKIN CARE. SHE BECAME PRE-RENAL WITH DIURETIC TREATMENT FOR LEG EDEMA AND THE FUROSEMIDE WAS DISCONTINUED FOR THAT REASON. THE LEG EDEMA HAS SIGNIFICANTLY IMPROVED. SHE WAS NOW DISCHARGED TO TCU AND I WAS ASKED TO FOLLOW HER. Past Patient History - Infectious Disease Hx of Infectious Diseases: None - Past Medical History & Family History Past Medical History?: Yes - Past Social History Smoking Status: Former Smoker - CARDIAC Hx Congestive Heart Failure: Yes Hx Hypercholesterolemia: Yes Hx Hypertension: Yes - PULMONARY Hx Chronic Obstructive Pulmonary Disease (COPD): Yes - NEUROLOGICAL Other/Comment: Paresthesias of both feet - HEENT Hx HEENT Problems: No - RENAL Hx Chronic Kidney Disease: Yes Hx Kidney Stones: Yes (kidney stone removal) - ENDOCRINE/METABOLIC Hx Diabetes Mellitus Type 2: Yes - HEMATOLOGICAL/ONCOLOGICAL Hx AIDS: No Hx Anemia: Yes Hx Human Immunodeficiency Virus (HIV): No - INTEGUMENTARY Hx Dermatological Problems: Yes Other/Comment: Dependent edema of both lower extremities with blister formation - MUSCULOSKELETAL/RHEUMATOLOGICAL Hx Falls: Yes Hx Unsteady Gait: Yes - GASTROINTESTINAL Hx Gastrointestinal Disorders: No - GENITOURINARY/GYNECOLOGICAL Hx Genitourinary Disorders: No - PSYCHIATRIC Hx Psychophysiologic Disorder: No Hx Substance Use: No - SURGICAL HISTORY Hx Appendectomy: Yes Other/Comment: kidney stone removal - ANESTHESIA Hx Anesthesia: Yes Hx Anesthesia Reactions: No Hx Malignant Hyperthermia: No Meds Allergies/Adverse Reactions: Allergies Allergy/AdvReac Type Severity Reaction Status Date / Time No Known Allergies Allergy Verified 12/18/17 16:07 - Medications Medications: Current Medications Acetaminophen (Tylenol 325mg Tab) 650 mg PO Q4 PRN PRN Reason: Pain, Mild (1-3) Bacitracin (Bacitracin Oint) 1 applic TOP DAILY [facility] Clopidogrel Bisulfate (Plavix) 75 mg PO DAILY [facility] Last Admin: 12/19/17 08:19 Dose: 75 mg Docusate Sodium (Colace) 100 mg PO DAILY [facility] Last Admin: 12/19/17 08:19 Dose: 100 mg Enoxaparin Sodium (Lovenox) 30 mg SC DAILY [facility] PRN Reason: Protocol Last Admin: 12/19/17 08:20 Dose: 30 mg Famotidine (Pepcid) 20 mg PO DAILY [facility] Last Admin: 12/19/17 08:19 Dose: 20 mg Ferrous Sulfate (Feosol) 325 mg PO DAILY [facility] Last Admin: 12/19/17 08:18 Dose: 325 mg Furosemide (Lasix) 40 mg PO DAILY [facility] Last Admin: 12/19/17 08:19 Dose: 40 mg Glipizide (Glucotrol Xl) 2.5 mg PO DAILY [facility] Last Admin: 12/19/17 08:19 Dose: 2.5 mg Ciprofloxacin (Cipro 200mg/100ml D5w) 100 mls @ 100 mls/hr IVPB Q12@0500,1700 [facility] PRN Reason: Protocol Last Admin: 12/19/17 04:50 Dose: 100 mls/hr Ampicillin Sodium/Sulbactam (Sodium 1.5 gm/ Sodium Chloride) 100 mls @ 100 mls/ hr IVPB Q12 [facility] Last Admin: 12/19/17 08:18 Dose: 100 mls/hr Isosorbide Mononitrate (Imdur Er) 30 mg PO DAILY [facility] Last Admin: 12/19/17 08:19 Dose: 30 mg Lactobacillus Acidophilus (Bacid Acidophilus) 1 cap PO BID [facility] Last Admin: 12/18/17 17:45 Dose: 1 cap Methimazole (Tapazole) 5 mg PO DAILY [facility] Metoprolol Tartrate (Lopressor) 25 mg PO Q12 [facility] Last Admin: 12/19/17 08:20 Dose: 25 mg Tramadol HCl (Ultram) 50 mg PO Q6 PRN PRN Reason: Pain, moderate (4-7) Last Admin: 12/18/17 23:08 Dose: 50 mg Physical Exam - Respiratory Exam Respiratory Exam: Decreased Breath Sounds - Cardiovascular Exam Cardiovascular Exam: REGULAR RHYTHM, +S1, +S2 - Extremities Exam Additional comments: LOWER EXTREMITY SKIN BLISTERING AND ULCERATION-IMPROVED LOWER EXTREMITY EDEMA HAS IMPROVED Results - Vital Signs Recent Vital Signs: Last Vital Signs Temp 96.1 F L 12/19/17 07:57 Pulse 63 12/19/17 08:20 Resp 20 12/19/17 07:57 BP 110/57 L 12/19/17 08:20 Pulse Ox 95 12/19/17 07:57 - Labs Labs: Laboratory Results - last 24 hr 12/18/17 12/18/17 12/19/17 16:23 20:35 05:39 POC Glucose (mg/dL) 149 H 150 H 157 H Assessment & Plan - Assessment and Plan (Free Text) Assessment: LOWER EXTREMITY VENOUS INSUFFICIENCY WITH BLISTERING AND ULCERATION CAD CHRONIC MILD DIASTOLIC CHF HYPERTENSION TYPE 2 DM PRE-RENAL AZOTEMIA Plan: LASIX WAS DISCONTINUED AND IV FLUIDS WERE GIVEN FOR THE PRE-RENAL AZOTEMIA CONTINUE METOPROLOL, NITRATES, CLOPIDOGREL, LOVENOX AND ANTIBIOTICS PODIATRY CARE BMP IN AM VASCULAR WANT TO DO CT ANGIOGRAM OF LOWER EXTREMITIES-WOULD HOLD OFF UNTIL RENAL FUNCTION IMPROVES
[2017-12-19] MEDS: Sodium Chloride 0.9% 1,000 ML IV SCH ×2 (10:27→23:35)
--- NOTE | 2017-12-19 13:17 | CP.PCM.CON ---
History of Present Illness - History of Present Illness History of Present Illness: Neurology Consultation Note: Mrs. Philip is a 77-year-old woman with multiple medical co-morbidities, and currently in TCU after having significant pain/weakness/swelling in her legs due to severe edema that seems to be improving somewhat. She has chronic ulcerations on her lower extremities causing pain. I was asked to evaluate the patient for her leg pain. Review of Systems - Review of Systems All systems: reviewed and no additional remarkable complaints except Past Patient History - Infectious Disease Hx of Infectious Diseases: None - Past Medical History & Family History Past Medical History?: Yes - Past Social History Smoking Status: Former Smoker - CARDIAC Hx Congestive Heart Failure: Yes Hx Hypercholesterolemia: Yes Hx Hypertension: Yes - PULMONARY Hx Chronic Obstructive Pulmonary Disease (COPD): Yes - NEUROLOGICAL Other/Comment: Paresthesias of both feet - HEENT Hx HEENT Problems: No - RENAL Hx Chronic Kidney Disease: Yes Hx Kidney Stones: Yes (kidney stone removal) - ENDOCRINE/METABOLIC Hx Diabetes Mellitus Type 2: Yes - HEMATOLOGICAL/ONCOLOGICAL Hx AIDS: No Hx Anemia: Yes Hx Human Immunodeficiency Virus (HIV): No - INTEGUMENTARY Hx Dermatological Problems: Yes Other/Comment: Dependent edema of both lower extremities with blister formation - MUSCULOSKELETAL/RHEUMATOLOGICAL Hx Falls: Yes Hx Unsteady Gait: Yes - GASTROINTESTINAL Hx Gastrointestinal Disorders: No - GENITOURINARY/GYNECOLOGICAL Hx Genitourinary Disorders: No - PSYCHIATRIC Hx Psychophysiologic Disorder: No Hx Substance Use: No - SURGICAL HISTORY Hx Appendectomy: Yes Other/Comment: kidney stone removal - ANESTHESIA Hx Anesthesia: Yes Hx Anesthesia Reactions: No Hx Malignant Hyperthermia: No Meds Allergies/Adverse Reactions: Allergies Allergy/AdvReac Type Severity Reaction Status Date / Time No Known Allergies Allergy Verified 12/18/17 16:07 - Medications Medications: Current Medications Acetaminophen (Tylenol 325mg Tab) 650 mg PO Q4 PRN PRN Reason: Pain, Mild (1-3) Bacitracin (Bacitracin Oint) 1 applic TOP DAILY [facility] Last Admin: 12/19/17 09:23 Dose: Not Given Clopidogrel Bisulfate (Plavix) 75 mg PO DAILY [facility] Last Admin: 12/19/17 08:19 Dose: 75 mg Docusate Sodium (Colace) 100 mg PO DAILY [facility] Last Admin: 12/19/17 08:19 Dose: 100 mg Enoxaparin Sodium (Lovenox) 30 mg SC DAILY [facility] PRN Reason: Protocol Last Admin: 12/19/17 08:20 Dose: 30 mg Famotidine (Pepcid) 20 mg PO DAILY [facility] Last Admin: 12/19/17 08:19 Dose: 20 mg Ferrous Sulfate (Feosol) 325 mg PO DAILY [facility] Last Admin: 12/19/17 08:18 Dose: 325 mg Glipizide (Glucotrol Xl) 2.5 mg PO DAILY [facility] Last Admin: 12/19/17 08:19 Dose: 2.5 mg Ciprofloxacin (Cipro 200mg/100ml D5w) 100 mls @ 100 mls/hr IVPB Q12@0500,1700 [facility] PRN Reason: Protocol Last Admin: 12/19/17 04:50 Dose: 100 mls/hr Ampicillin Sodium/Sulbactam (Sodium 1.5 gm/ Sodium Chloride) 100 mls @ 100 mls/ hr IVPB Q12 [facility] Last Admin: 12/19/17 08:18 Dose: 100 mls/hr Sodium Chloride (Sodium Chloride 0.9%) 1,000 mls @ 75 mls/hr IV .[id number] [facility] Stop: 12/20/17 09:34 Last Admin: 12/19/17 10:27 Dose: 75 mls/hr Isosorbide Mononitrate (Imdur Er) 30 mg PO DAILY [facility] Last Admin: 12/19/17 08:19 Dose: 30 mg Lactobacillus Acidophilus (Bacid Acidophilus) 1 cap PO BID [facility] Last Admin: 12/19/17 09:22 Dose: 1 cap Methimazole (Tapazole) 5 mg PO DAILY [facility] Last Admin: 12/19/17 09:23 Dose: 5 mg Metoprolol Tartrate (Lopressor) 25 mg PO Q12 [facility] Last Admin: 12/19/17 08:20 Dose: 25 mg Tramadol HCl (Ultram) 50 mg PO Q6 PRN PRN Reason: Pain, moderate (4-7) Last Admin: 12/18/17 23:08 Dose: 50 mg Physical Exam - Neurological Exam Neurological exam: Abnormal Gait, Alert, CN II-XII Intact, Oriented x3, Reflexes Normal Additional comments: No focal neurological deficits noted. Generalized weakness, worse in the lower extremities, which are limited by pain. Romberg was normal. Results - Vital Signs Recent Vital Signs: Last Vital Signs Temp 96.1 F L 12/19/17 07:57 Pulse 63 12/19/17 08:20 Resp 20 12/19/17 07:57 BP 110/57 L 12/19/17 08:20 Pulse Ox 95 12/19/17 07:57 - Labs Labs: Laboratory Results - last 24 hr 12/18/17 12/18/17 12/19/17 16:23 20:35 05:39 POC Glucose (mg/dL) 149 H 150 H 157 H Assessment & Plan (1) PVD (peripheral vascular disease) Assessment and Plan: This the likely cause of the patient's leg pain. Treatment is for the underlying condition. Consider Pletal, after discussion with cardiology. No further recommendations from a neurological perspective. Thank you. Status: Acute Priority: High
--- NOTE | 2017-12-19 13:33 | CP.PCM.CON ---
History of Present Illness - History of Present Illness History of Present Illness: This 77-year-old female followed from acute medical floor and has been discharged to transitional care. She was initially admitted by the emergency room because of decompensated dependent edema of both lower extremities. This process appears to multifactorial with an element of congestive cardiac failure as well as peripheral vascular disease. She has failed outpatient therapy and has developed significant dependent edema with blistering and ulcerations to have become infected with multiple organisms. On presentation she also had a chest x-ray which showed a small left pleural effusion and possibly a retrocardiac infiltrate. She has been placed on parenteral antibiotic therapy as well as diuretic therapy with gradual improvement in her symptomatology. She has had some decompensation with regard to her renal function and her diuretic therapy has been temporarily discontinued. At this time she is complaining of more dyspnea than she has had the day before but ascribes this to having been emotionally upset. She denies any cough or chest pain at the present time. There has been no sputum production. There has been no fever. There is no leukocytosis. Her last chest x-ray was performed 3 days ago at which time there was some improvement in the vascular congestive pattern but suggested possible residual left-sided pleural effusion. Past medical history: Bronchitis, pleural effusion, congestive cardiac failure, coronary artery disease with significant wall motion abnormality and low EF, type 2 diabetes mellitus with neuropathy, hyperthyroidism, peripheral vascular disease with persistent/worsening dependent edema and vascular ulceration. Former cigarette smoker but discontinued habit number of years ago. Alcohol intake is social only. She denies any illicit drug use. No known drug or seasonal allergies. Physical exam shows an elderly female who is well-nourished and well-developed seated in a wheelchair at bedside. Both lower extremities are in a dangling position and the dressings on both legs have been relaxed. There is 2+ dependent edema extending from the feet to an area above the knees bilaterally. No cyanosis. The pharynx is pink and mucous membranes are moist. No exudate. The neck is supple and trachea is midline. No visible neck vein distention. No carotid bruit. Dullness to percussion is noted at the left base posteriorly. Breath sounds diminished bilaterally and absent in the left base. Scattered sonorous rhonchi are heard in the lower lobes bilaterally. Few medium rales are heard in the lower lobes of both lungs. No bronchial breathing or egophony. Heart sounds are distant and the rhythm is regular. The abdomen is soft and nontender with normal bowel sounds. Impression: Decompensated dependent edema of both lower extremities with vascular ulceration and multi-organism infections. Peripheral vascular disease both lower extremities. Coronary artery disease with congestive cardiac failure and low LVEF. Diabetes mellitus with peripheral neuropathy. Hyperthyroidism. CK D with decompensation. Plan: We'll repeat chest x-ray to evaluate for increasing left pleural effusion. Continue current medical regimen including antibiotic therapy. Elevation of lower extremities and compression stockings/dressings to decrease dependent edema. Thank you. Past Patient History - Infectious Disease Hx of Infectious Diseases: None - Past Medical History & Family History Past Medical History?: Yes - Past Social History Smoking Status: Former Smoker - CARDIAC Hx Congestive Heart Failure: Yes Hx Hypercholesterolemia: Yes Hx Hypertension: Yes - PULMONARY Hx Chronic Obstructive Pulmonary Disease (COPD): Yes - NEUROLOGICAL Other/Comment: Paresthesias of both feet - HEENT Hx HEENT Problems: No - RENAL Hx Chronic Kidney Disease: Yes Hx Kidney Stones: Yes (kidney stone removal) - ENDOCRINE/METABOLIC Hx Diabetes Mellitus Type 2: Yes - HEMATOLOGICAL/ONCOLOGICAL Hx AIDS: No Hx Anemia: Yes Hx Human Immunodeficiency Virus (HIV): No - INTEGUMENTARY Hx Dermatological Problems: Yes Other/Comment: Dependent edema of both lower extremities with blister formation - MUSCULOSKELETAL/RHEUMATOLOGICAL Hx Falls: Yes Hx Unsteady Gait: Yes - GASTROINTESTINAL Hx Gastrointestinal Disorders: No - GENITOURINARY/GYNECOLOGICAL Hx Genitourinary Disorders: No - PSYCHIATRIC Hx Psychophysiologic Disorder: No Hx Substance Use: No - SURGICAL HISTORY Hx Appendectomy: Yes Other/Comment: kidney stone removal - ANESTHESIA Hx Anesthesia: Yes Hx Anesthesia Reactions: No Hx Malignant Hyperthermia: No Meds Allergies/Adverse Reactions: Allergies Allergy/AdvReac Type Severity Reaction Status Date / Time No Known Allergies Allergy Verified 12/18/17 16:07 - Medications Medications: Current Medications Acetaminophen (Tylenol 325mg Tab) 650 mg PO Q4 PRN PRN Reason: Pain, Mild (1-3) Bacitracin (Bacitracin Oint) 1 applic TOP DAILY [facility] Last Admin: 12/19/17 09:23 Dose: Not Given Clopidogrel Bisulfate (Plavix) 75 mg PO DAILY [facility] Last Admin: 12/19/17 08:19 Dose: 75 mg Docusate Sodium (Colace) 100 mg PO DAILY [facility] Last Admin: 12/19/17 08:19 Dose: 100 mg Enoxaparin Sodium (Lovenox) 30 mg SC DAILY [facility] PRN Reason: Protocol Last Admin: 12/19/17 08:20 Dose: 30 mg Famotidine (Pepcid) 20 mg PO DAILY [facility] Last Admin: 12/19/17 08:19 Dose: 20 mg Ferrous Sulfate (Feosol) 325 mg PO DAILY [facility] Last Admin: 12/19/17 08:18 Dose: 325 mg Glipizide (Glucotrol Xl) 2.5 mg PO DAILY [facility] Last Admin: 12/19/17 08:19 Dose: 2.5 mg Ciprofloxacin (Cipro 200mg/100ml D5w) 100 mls @ 100 mls/hr IVPB Q12@0500,1700 [facility] PRN Reason: Protocol Last Admin: 12/19/17 04:50 Dose: 100 mls/hr Ampicillin Sodium/Sulbactam (Sodium 1.5 gm/ Sodium Chloride) 100 mls @ 100 mls/ hr IVPB Q12 [facility] Last Admin: 12/19/17 08:18 Dose: 100 mls/hr Sodium Chloride (Sodium Chloride 0.9%) 1,000 mls @ 75 mls/hr IV .[id number] [facility] Stop: 12/20/17 09:34 Last Admin: 12/19/17 10:27 Dose: 75 mls/hr Isosorbide Mononitrate (Imdur Er) 30 mg PO DAILY [facility] Last Admin: 12/19/17 08:19 Dose: 30 mg Lactobacillus Acidophilus (Bacid Acidophilus) 1 cap PO BID [facility] Last Admin: 12/19/17 09:22 Dose: 1 cap Methimazole (Tapazole) 5 mg PO DAILY [facility] Last Admin: 12/19/17 09:23 Dose: 5 mg Metoprolol Tartrate (Lopressor) 25 mg PO Q12 [facility] Last Admin: 12/19/17 08:20 Dose: 25 mg Tramadol HCl (Ultram) 50 mg PO Q6 PRN PRN Reason: Pain, moderate (4-7) Last Admin: 12/18/17 23:08 Dose: 50 mg Results - Vital Signs Recent Vital Signs: Last Vital Signs Temp 96.1 F L 12/19/17 07:57 Pulse 63 12/19/17 08:20 Resp 20 12/19/17 07:57 BP 110/57 L 12/19/17 08:20 Pulse Ox 95 12/19/17 07:57 - Labs Labs: Laboratory Results - last 24 hr 12/18/17 12/18/17 12/19/17 16:23 20:35 05:39 POC Glucose (mg/dL) 149 H 150 H 157 H Assessment & Plan - Date & Time Date: 12/19/17 Time: 13:33
--- NOTE | 2017-12-19 15:10 | CP.PCM.CON ---
History of Present Illness - History of Present Illness History of Present Illness: Podiatry Progress Note for Dr. Briseno 77 year old female seen at bedside for multiple lysed, blisters with some underlying infected wounds to her b/l LE. Patient states that the wounds that are open continue to be painful today but pain is controlled with medication. Denies any acute overnight events. Is AAO x 3 and NAD at time of visit and states that she is very tired today due to lack of sleep last night. She denies any further pedal complaints at this time. Admits to not elevating her legs like she has been instructed to do and says that she loosened her bandages overnight. Denies any recent N/V/F/C/CP/SOB/D/posterior calf pain when squeezed. Review of Systems - Review of Systems Review of Systems: ROS as per HPI Past Patient History - Infectious Disease Hx of Infectious Diseases: None - Past Medical History & Family History Past Medical History?: Yes - Past Social History Smoking Status: Former Smoker - CARDIAC Hx Congestive Heart Failure: Yes Hx Hypercholesterolemia: Yes Hx Hypertension: Yes - PULMONARY Hx Chronic Obstructive Pulmonary Disease (COPD): Yes - NEUROLOGICAL Other/Comment: Paresthesias of both feet - HEENT Hx HEENT Problems: No - RENAL Hx Chronic Kidney Disease: Yes Hx Kidney Stones: Yes (kidney stone removal) - ENDOCRINE/METABOLIC Hx Diabetes Mellitus Type 2: Yes - HEMATOLOGICAL/ONCOLOGICAL Hx AIDS: No Hx Anemia: Yes Hx Human Immunodeficiency Virus (HIV): No - INTEGUMENTARY Hx Dermatological Problems: Yes Other/Comment: Dependent edema of both lower extremities with blister formation - MUSCULOSKELETAL/RHEUMATOLOGICAL Hx Falls: Yes Hx Unsteady Gait: Yes - GASTROINTESTINAL Hx Gastrointestinal Disorders: No - GENITOURINARY/GYNECOLOGICAL Hx Genitourinary Disorders: No - PSYCHIATRIC Hx Psychophysiologic Disorder: No Hx Substance Use: No - SURGICAL HISTORY Hx Appendectomy: Yes Other/Comment: kidney stone removal - ANESTHESIA Hx Anesthesia: Yes Hx Anesthesia Reactions: No Hx Malignant Hyperthermia: No Meds Allergies/Adverse Reactions: Allergies Allergy/AdvReac Type Severity Reaction Status Date / Time No Known Allergies Allergy Verified 12/18/17 16:07 - Medications Medications: Current Medications Acetaminophen (Tylenol 325mg Tab) 650 mg PO Q4 PRN PRN Reason: Pain, Mild (1-3) Bacitracin (Bacitracin Oint) 1 applic TOP DAILY [facility] Last Admin: 12/19/17 09:23 Dose: Not Given Clopidogrel Bisulfate (Plavix) 75 mg PO DAILY [facility] Last Admin: 12/19/17 08:19 Dose: 75 mg Docusate Sodium (Colace) 100 mg PO DAILY [facility] Last Admin: 12/19/17 08:19 Dose: 100 mg Enoxaparin Sodium (Lovenox) 30 mg SC DAILY [facility] PRN Reason: Protocol Last Admin: 12/19/17 08:20 Dose: 30 mg Famotidine (Pepcid) 20 mg PO DAILY [facility] Last Admin: 12/19/17 08:19 Dose: 20 mg Ferrous Sulfate (Feosol) 325 mg PO DAILY [facility] Last Admin: 12/19/17 08:18 Dose: 325 mg Glipizide (Glucotrol Xl) 2.5 mg PO DAILY [facility] Last Admin: 12/19/17 08:19 Dose: 2.5 mg Ciprofloxacin (Cipro 200mg/100ml D5w) 100 mls @ 100 mls/hr IVPB Q12@0500,1700 [facility] PRN Reason: Protocol Last Admin: 12/19/17 04:50 Dose: 100 mls/hr Ampicillin Sodium/Sulbactam (Sodium 1.5 gm/ Sodium Chloride) 100 mls @ 100 mls/ hr IVPB Q12 [facility] Last Admin: 12/19/17 08:18 Dose: 100 mls/hr Sodium Chloride (Sodium Chloride 0.9%) 1,000 mls @ 75 mls/hr IV .[id number] [facility] Stop: 12/20/17 09:34 Last Admin: 12/19/17 10:27 Dose: 75 mls/hr Isosorbide Mononitrate (Imdur Er) 30 mg PO DAILY [facility] Last Admin: 12/19/17 08:19 Dose: 30 mg Lactobacillus Acidophilus (Bacid Acidophilus) 1 cap PO BID [facility] Last Admin: 12/19/17 09:22 Dose: 1 cap Methimazole (Tapazole) 5 mg PO DAILY [facility] Last Admin: 12/19/17 09:23 Dose: 5 mg Metoprolol Tartrate (Lopressor) 25 mg PO Q12 [facility] Last Admin: 12/19/17 08:20 Dose: 25 mg Tramadol HCl (Ultram) 50 mg PO Q6 PRN PRN Reason: Pain, moderate (4-7) Last Admin: 12/18/17 23:08 Dose: 50 mg Physical Exam - Constitutional Appears: Well, Non-toxic, No Acute Distress - Extremities Exam Additional comments: Vasc: DP pulses weakly palpable 1/4 b/l. Non- palpable PT pulses secondary to edema, +2 pitting edema to bilateral LE, TG wnl, CFT < 4 sec to all digits. Neuro: Epicritic and protective sensation grossly intact b/l Derm: Multiple chronic, lanced bullae noted to b/l legs. Most bullae sites are crusted over with no clinical signs of infection or cellulitic changes. One superficial open lysed blister measuring roughly 2 cm x 2 cm x 0.1 cm seen on posteriomedial left leg. serous drainage, minimal malodor, minimal periwound erythema noted. Second, larger open blister noted to posterior right calf measuring roughly 8 cm x 5 cm x 0.2 cm. serous drainage, minimal malodor, minimal periwound erythema noted. Crusted cap of third blister has fallen off of anterior left leg revealing roughly 2 cm x 3 cm x 0.2 cm superficial ulceration underneath with serous drainage and no other clinical signs of infection. All blisters continue to weep but appear to be partially starting to epithelialize Ortho: Helene's sign negative b/l. All open blister sites painful to palpation - Neurological Exam Neurological exam: Alert, Oriented x3 - Psychiatric Exam Psychiatric exam: Normal Affect, Normal Mood Results - Vital Signs Recent Vital Signs: Last Vital Signs Temp 96.1 F L 12/19/17 07:57 Pulse 63 12/19/17 13:44 Resp 20 12/19/17 07:57 BP 110/57 L 12/19/17 13:44 Pulse Ox 98 12/19/17 13:44 - Labs Labs: Laboratory Results - last 24 hr 12/18/17 12/18/17 12/19/17 16:23 20:35 05:39 POC Glucose (mg/dL) 149 H 150 H 157 H Assessment & Plan - Assessment and Plan (Free Text) Assessment: 77 year old female seen at bedside for multiple lysed, blisters with some underlying infected wounds to her b/l LE. Plan: Patient seen and evaluated at bedside Charts, labs, vitals reviewed Plan discussed with attending Dr. Briseno Afebrile, absent leukocytosis Continue IV abx per ID Continue medical management per Medicine Wound Cx- Prelim, Gram negative chuckie, gram positive cocci Venous duplex - No evidence of LE DVT Arterial Duplex - Diffuse atherosclerotic changes b/l Wounds scrubbed with soap solution and saline, dressed with alginate, ABD, DSD, CHAITANYA for light compression No plan for surgical intervention at this time Podiatry will continue to follow while patient in house - Date & Time Date: 12/19/17 Time: 15:14
--- NOTE | 2017-12-19 17:04 | CP.PCM.CON ---
History of Present Illness - History of Present Illness History of Present Illness: 77 year old female with a history of DM, CAD, CHF, chronic anemia, PVD with lower extremity swelling and infected skin wounds, admitted to TCU. The patient is well known to me from her prior admissions. Her anemia work up showed declining iron stores and anemia of chronic disease. She denies abnormal bleeding but notes she bruises easily. She is currently on Plavix and had aspirin discontinued in the past for declining H/H. She was placed on oral iron and intermittent Procit supplementation. Past medical history: DM, CAD, CHF, anemia Past surgical history: Denies Family history: Denies hematologic and oncologic problems Social history: Former tobacco Allergies: NKA Review of systems: All remaining review of systems including HEENT, cardiovascular, respiratory, gastrointestinal, genitourinary, musculoskeletal, dermatologic, neurologic, and psychiatric are negative unless mentioned in the HPI. Past Patient History - Infectious Disease Hx of Infectious Diseases: None - Past Medical History & Family History Past Medical History?: Yes - Past Social History Smoking Status: Former Smoker - CARDIAC Hx Congestive Heart Failure: Yes Hx Hypercholesterolemia: Yes Hx Hypertension: Yes - PULMONARY Hx Chronic Obstructive Pulmonary Disease (COPD): Yes - NEUROLOGICAL Other/Comment: Paresthesias of both feet - HEENT Hx HEENT Problems: No - RENAL Hx Chronic Kidney Disease: Yes Hx Kidney Stones: Yes (kidney stone removal) - ENDOCRINE/METABOLIC Hx Diabetes Mellitus Type 2: Yes - HEMATOLOGICAL/ONCOLOGICAL Hx AIDS: No Hx Anemia: Yes Hx Human Immunodeficiency Virus (HIV): No - INTEGUMENTARY Hx Dermatological Problems: Yes Other/Comment: Dependent edema of both lower extremities with blister formation - MUSCULOSKELETAL/RHEUMATOLOGICAL Hx Falls: Yes Hx Unsteady Gait: Yes - GASTROINTESTINAL Hx Gastrointestinal Disorders: No - GENITOURINARY/GYNECOLOGICAL Hx Genitourinary Disorders: No - PSYCHIATRIC Hx Psychophysiologic Disorder: No Hx Substance Use: No - SURGICAL HISTORY Hx Appendectomy: Yes Other/Comment: kidney stone removal - ANESTHESIA Hx Anesthesia: Yes Hx Anesthesia Reactions: No Hx Malignant Hyperthermia: No Meds Allergies/Adverse Reactions: Allergies Allergy/AdvReac Type Severity Reaction Status Date / Time No Known Allergies Allergy Verified 12/18/17 16:07 - Medications Medications: Current Medications Acetaminophen (Tylenol 325mg Tab) 650 mg PO Q4 PRN PRN Reason: Pain, Mild (1-3) Bacitracin (Bacitracin Oint) 1 applic TOP DAILY [facility] Last Admin: 12/19/17 09:23 Dose: Not Given Clopidogrel Bisulfate (Plavix) 75 mg PO DAILY [facility] Last Admin: 12/19/17 08:19 Dose: 75 mg Docusate Sodium (Colace) 100 mg PO DAILY [facility] Last Admin: 12/19/17 08:19 Dose: 100 mg Enoxaparin Sodium (Lovenox) 30 mg SC DAILY [facility] PRN Reason: Protocol Last Admin: 12/19/17 08:20 Dose: 30 mg Famotidine (Pepcid) 20 mg PO DAILY [facility] Last Admin: 12/19/17 08:19 Dose: 20 mg Ferrous Sulfate (Feosol) 325 mg PO DAILY [facility] Last Admin: 12/19/17 08:18 Dose: 325 mg Glipizide (Glucotrol Xl) 2.5 mg PO DAILY [facility] Last Admin: 12/19/17 08:19 Dose: 2.5 mg Ciprofloxacin (Cipro 200mg/100ml D5w) 100 mls @ 100 mls/hr IVPB Q12@0500,1700 [facility] PRN Reason: Protocol Last Admin: 12/19/17 04:50 Dose: 100 mls/hr Ampicillin Sodium/Sulbactam (Sodium 1.5 gm/ Sodium Chloride) 100 mls @ 100 mls/ hr IVPB Q12 [facility] Last Admin: 12/19/17 08:18 Dose: 100 mls/hr Sodium Chloride (Sodium Chloride 0.9%) 1,000 mls @ 75 mls/hr IV .[id number] [facility] Stop: 12/20/17 09:34 Last Admin: 12/19/17 10:27 Dose: 75 mls/hr Isosorbide Mononitrate (Imdur Er) 30 mg PO DAILY [facility] Last Admin: 12/19/17 08:19 Dose: 30 mg Lactobacillus Acidophilus (Bacid Acidophilus) 1 cap PO BID [facility] Last Admin: 12/19/17 09:22 Dose: 1 cap Methimazole (Tapazole) 5 mg PO DAILY [facility] Last Admin: 12/19/17 09:23 Dose: 5 mg Metoprolol Tartrate (Lopressor) 25 mg PO Q12 [facility] Last Admin: 12/19/17 08:20 Dose: 25 mg Tramadol HCl (Ultram) 50 mg PO Q6 PRN PRN Reason: Pain, moderate (4-7) Last Admin: 12/18/17 23:08 Dose: 50 mg Physical Exam - Head Exam Head Exam: ATRAUMATIC - Eye Exam Eye Exam: Normal appearance - ENT Exam ENT Exam: Mucous Membranes Dry - Respiratory Exam Respiratory Exam: NORMAL BREATHING PATTERN - Cardiovascular Exam Cardiovascular Exam: +S1, +S2 - GI/Abdominal Exam GI & Abdominal Exam: Normal Bowel Sounds - Extremities Exam Extremities exam: Positive for: pedal edema - Neurological Exam Neurological exam: Oriented x3 - Psychiatric Exam Psychiatric exam: Normal Affect, Normal Mood - Skin Skin Exam: Warm Results - Vital Signs Recent Vital Signs: Last Vital Signs Temp 97.0 F L 12/19/17 15:40 Pulse 60 12/19/17 15:40 Resp 20 12/19/17 15:40 BP 117/52 L 12/19/17 15:40 Pulse Ox 97 12/19/17 15:40 - Labs Result Diagrams: 12/20/17 06:30 12/20/17 06:30 Labs: Laboratory Results - last 24 hr 12/18/17 12/19/17 20:35 05:39 POC Glucose (mg/dL) 150 H 157 H Assessment & Plan (1) Anemia Assessment and Plan: declining iron stores; likely chronic intermittent GI blood loss anemia of CKD on oral iron and intermittent Procrit will avoid IV iron for now given acitve infection Thank you for this interesting consult. Status: Acute
--- NOTE | 2017-12-19 17:12 | RAD ---
HISTORY: pleural effusion COMPARISON: Chest radiographs 12/16/2017 TECHNIQUE: Chest PA and lateral FINDINGS: LUNGS: Left basilar airspace disease is unchanged laterally comprise likely of atelectasis due given mild left pleural effusion. Pneumonia is not excluded here. No right pleural effusion. No pneumothorax bilaterally or right infiltrate. PLEURA: As above. CARDIOVASCULAR: Stable cardiomegaly. No pulmonary vascular derangement appreciable likely reflecting improving CHF. OSSEOUS STRUCTURES: No significant abnormalities. VISUALIZED UPPER ABDOMEN: Normal. OTHER FINDINGS: None. IMPRESSION: Improving CHF with persistent left pleural effusion and lateral left basilar airspace disease.
--- NOTE | 2017-12-19 18:06 | CP.PCM.PN ---
Subjective - Date & Time of Evaluation Date of Evaluation: 12/19/17 Time of Evaluation: 18:01 - Subjective Subjective: I D NOTE CONTINUES TO HAVE PAIN NO CHANGE IN COVERAGE C UNASYN/CIPRO IN RENAL ADJUSTED DOSES DISCUSSED U Objective - Vital Signs/Intake and Output Vital Signs (last 24 hours): Temp Pulse Resp BP Pulse Ox 97.0 F L 60 20 117/52 L 97 12/19/17 15:40 12/19/17 15:40 12/19/17 15:40 12/19/17 15:40 12/19/17 15:40 - Medications Medications: Current Medications Acetaminophen (Tylenol 325mg Tab) 650 mg PO Q4 PRN PRN Reason: Pain, Mild (1-3) Bacitracin (Bacitracin Oint) 1 applic TOP DAILY [facility] Last Admin: 12/19/17 09:23 Dose: Not Given Clopidogrel Bisulfate (Plavix) 75 mg PO DAILY [facility] Last Admin: 12/19/17 08:19 Dose: 75 mg Docusate Sodium (Colace) 100 mg PO DAILY [facility] Last Admin: 12/19/17 08:19 Dose: 100 mg Enoxaparin Sodium (Lovenox) 30 mg SC DAILY [facility] PRN Reason: Protocol Last Admin: 12/19/17 08:20 Dose: 30 mg Famotidine (Pepcid) 20 mg PO DAILY [facility] Last Admin: 12/19/17 08:19 Dose: 20 mg Ferrous Sulfate (Feosol) 325 mg PO DAILY [facility] Last Admin: 12/19/17 08:18 Dose: 325 mg Glipizide (Glucotrol Xl) 2.5 mg PO DAILY [facility] Last Admin: 12/19/17 08:19 Dose: 2.5 mg Ciprofloxacin (Cipro 200mg/100ml D5w) 100 mls @ 100 mls/hr IVPB Q12@0500,1700 [facility] PRN Reason: Protocol Last Admin: 12/19/17 17:28 Dose: 100 mls/hr Ampicillin Sodium/Sulbactam (Sodium 1.5 gm/ Sodium Chloride) 100 mls @ 100 mls/ hr IVPB Q12 [facility] Last Admin: 12/19/17 08:18 Dose: 100 mls/hr Sodium Chloride (Sodium Chloride 0.9%) 1,000 mls @ 75 mls/hr IV .[id number] [facility] Stop: 12/20/17 09:34 Last Admin: 12/19/17 10:27 Dose: 75 mls/hr Isosorbide Mononitrate (Imdur Er) 30 mg PO DAILY [facility] Last Admin: 12/19/17 08:19 Dose: 30 mg Lactobacillus Acidophilus (Bacid Acidophilus) 1 cap PO BID [facility] Last Admin: 12/19/17 17:29 Dose: 1 cap Methimazole (Tapazole) 5 mg PO DAILY [facility] Last Admin: 12/19/17 09:23 Dose: 5 mg Metoprolol Tartrate (Lopressor) 25 mg PO Q12 [facility] Last Admin: 12/19/17 08:20 Dose: 25 mg Tramadol HCl (Ultram) 50 mg PO Q6 PRN PRN Reason: Pain, moderate (4-7) Last Admin: 12/18/17 23:08 Dose: 50 mg
--- NOTE | 2017-12-19 18:17 | CP.PCM.PN ---
Subjective - Date & Time of Evaluation Date of Evaluation: 12/19/17 Time of Evaluation: 18:14 - Subjective Subjective: id note no change in rx Objective - Vital Signs/Intake and Output Vital Signs (last 24 hours): Temp Pulse Resp BP Pulse Ox 97.0 F L 60 20 117/52 L 97 12/19/17 15:40 12/19/17 15:40 12/19/17 15:40 12/19/17 15:40 12/19/17 15:40 - Medications Medications: Current Medications Acetaminophen (Tylenol 325mg Tab) 650 mg PO Q4 PRN PRN Reason: Pain, Mild (1-3) Bacitracin (Bacitracin Oint) 1 applic TOP DAILY [facility] Last Admin: 12/19/17 09:23 Dose: Not Given Clopidogrel Bisulfate (Plavix) 75 mg PO DAILY [facility] Last Admin: 12/19/17 08:19 Dose: 75 mg Docusate Sodium (Colace) 100 mg PO DAILY [facility] Last Admin: 12/19/17 08:19 Dose: 100 mg Enoxaparin Sodium (Lovenox) 30 mg SC DAILY [facility] PRN Reason: Protocol Last Admin: 12/19/17 08:20 Dose: 30 mg Famotidine (Pepcid) 20 mg PO DAILY [facility] Last Admin: 12/19/17 08:19 Dose: 20 mg Ferrous Sulfate (Feosol) 325 mg PO DAILY [facility] Last Admin: 12/19/17 08:18 Dose: 325 mg Glipizide (Glucotrol Xl) 2.5 mg PO DAILY [facility] Last Admin: 12/19/17 08:19 Dose: 2.5 mg Ciprofloxacin (Cipro 200mg/100ml D5w) 100 mls @ 100 mls/hr IVPB Q12@0500,1700 [facility] PRN Reason: Protocol Last Admin: 12/19/17 17:28 Dose: 100 mls/hr Ampicillin Sodium/Sulbactam (Sodium 1.5 gm/ Sodium Chloride) 100 mls @ 100 mls/ hr IVPB Q12 [facility] Last Admin: 12/19/17 08:18 Dose: 100 mls/hr Sodium Chloride (Sodium Chloride 0.9%) 1,000 mls @ 75 mls/hr IV .[id number] [facility] Stop: 12/20/17 09:34 Last Admin: 04/26/18 10:27 Dose: 75 mls/hr Isosorbide Mononitrate (Imdur Er) 30 mg PO DAILY [facility] Last Admin: 12/19/17 08:19 Dose: 30 mg Lactobacillus Acidophilus (Bacid Acidophilus) 1 cap PO BID [facility] Last Admin: 12/19/17 17:29 Dose: 1 cap Methimazole (Tapazole) 5 mg PO DAILY [facility] Last Admin: 12/19/17 09:23 Dose: 5 mg Metoprolol Tartrate (Lopressor) 25 mg PO Q12 [facility] Last Admin: 12/19/17 08:20 Dose: 25 mg Tramadol HCl (Ultram) 50 mg PO Q6 PRN PRN Reason: Pain, moderate (4-7) Last Admin: 12/18/17 23:08 Dose: 50 mg
--- NOTE | 2017-12-19 20:59 | CP.PCM.PN ---
Subjective - Date & Time of Evaluation Date of Evaluation: 12/19/17 Time of Evaluation: 22:22 - Subjective Subjective: Above noted Objective - Vital Signs/Intake and Output Vital Signs (last 24 hours): Temp Pulse Resp BP Pulse Ox 97.0 F L 68 20 110/60 97 12/19/17 15:40 12/19/17 20:49 12/19/17 15:40 12/19/17 20:49 12/19/17 15:40 - Medications Medications: Current Medications Acetaminophen (Tylenol 325mg Tab) 650 mg PO Q4 PRN PRN Reason: Pain, Mild (1-3) Bacitracin (Bacitracin Oint) 1 applic TOP DAILY [facility] Last Admin: 12/19/17 09:23 Dose: Not Given Clopidogrel Bisulfate (Plavix) 75 mg PO DAILY [facility] Last Admin: 12/19/17 08:19 Dose: 75 mg Docusate Sodium (Colace) 100 mg PO DAILY [facility] Last Admin: 12/19/17 08:19 Dose: 100 mg Enoxaparin Sodium (Lovenox) 30 mg SC DAILY [facility] PRN Reason: Protocol Last Admin: 12/19/17 08:20 Dose: 30 mg Famotidine (Pepcid) 20 mg PO DAILY [facility] Last Admin: 12/19/17 08:19 Dose: 20 mg Ferrous Sulfate (Feosol) 325 mg PO DAILY [facility] Last Admin: 12/19/17 08:18 Dose: 325 mg Glipizide (Glucotrol Xl) 2.5 mg PO DAILY [facility] Last Admin: 12/19/17 08:19 Dose: 2.5 mg Ciprofloxacin (Cipro 200mg/100ml D5w) 100 mls @ 100 mls/hr IVPB Q12@0500,1700 [facility] PRN Reason: Protocol Last Admin: 12/19/17 17:28 Dose: 100 mls/hr Ampicillin Sodium/Sulbactam (Sodium 1.5 gm/ Sodium Chloride) 100 mls @ 100 mls/ hr IVPB Q12 [facility] Last Admin: 12/19/17 08:18 Dose: 100 mls/hr Sodium Chloride (Sodium Chloride 0.9%) 1,000 mls @ 75 mls/hr IV .[id number] [facility] Stop: 12/20/17 09:34 Last Admin: 12/19/17 10:27 Dose: 75 mls/hr Isosorbide Mononitrate (Imdur Er) 30 mg PO DAILY [facility] Last Admin: 12/19/17 08:19 Dose: 30 mg Lactobacillus Acidophilus (Bacid Acidophilus) 1 cap PO BID [facility] Last Admin: 12/19/17 17:29 Dose: 1 cap Methimazole (Tapazole) 5 mg PO DAILY [facility] Last Admin: 12/19/17 09:23 Dose: 5 mg Metoprolol Tartrate (Lopressor) 25 mg PO Q12 [facility] Last Admin: 12/19/17 20:49 Dose: 25 mg Tramadol HCl (Ultram) 50 mg PO Q6 PRN PRN Reason: Pain, moderate (4-7) Last Admin: 12/19/17 20:47 Dose: 50 mg - Respiratory Exam Respiratory Exam: NORMAL BREATHING PATTERN - Cardiovascular Exam Cardiovascular Exam: REGULAR RHYTHM - GI/Abdominal Exam GI & Abdominal Exam: Normal Bowel Sounds Assessment and Plan - Assessment and Plan (Free Text) Assessment: Leg pain?? Low ext edema with blisters- etiol? Venous vs Arterial? Infectious? Hx Serratia G- Leg elevation IV ABX ID Podiatry Surgery Neurology Physiatry CHF Diastolic CAD stress thalium scarring ischemia?? cardiac cath refused?? Cardiology Hx COPD L Pleural effusion Pulmonary Prerenal?? IVF Labs Hx Anemia ASA d/c as outpt due to dec Hbg Stool for OB ?? Hematology consult NIDDM Thyroid dx Endo
[2017-12-20] MEDS: Ciprofloxacin 200mg/100ml D5W 100 ML IVPB SCH ×2 (04:28→17:10)
--- NOTE | 2017-12-20 04:46 | PN ---
ENDOCRINOLOGY FOLLOWUP NOTE DATE: 12/19/2017 LOCATION: In room 708, [facility]. SUBJECTIVE: This is a 77-year-old female very well known to me from previous consultations who was transferred to [facility] for deconditioning, presently on physical therapy as noted. She has been referred also now for endocrine evaluation of hypothyroidism and type 2 diabetes. She has been up on just a very low dose of hypoglycemic drug therapy as given. Her oral intake, however, remains very variable at this time and the glucose values have ranged from 149 to 150 and 157 . She remains clinically and biochemically euthyroid at this time. She has also ongoing cardiac management for recent cardiac decompensation or congestive heart failure as noted thereof. So, at this time, we will continue the low dose oral hypoglycemic drug therapy with glipizide given as 2.5 mg once daily as ordered. We will continue also the Tapazole given as 5 mg once daily in the morning as ordered. We will titrate incremental as indicated to optimize metabolic control. We will obtain serial chemistries and supplement accordingly as needed. We will follow. Lucia Corley MD
[2017-12-20 07:12] LABS: BASO % 0.7 % (0.0-2.0); EOS # 0.1 K/uL (0.0-0.7); HEMOGLOBIN 8.5 g/dL (12.0-16.0); LYMPH # 0.6 K/uL (1.0-4.3); LYMPH % 7.9 % (20.0-40.0); MEAN CELL VOLUME 83.1 fl (81.0-99.0); MEAN CORPUSCULAR HEMOGLOBIN 26.2 pg (27.0-31.0); MEAN CORPUSCULAR HGB CONC 31.5 g/dL (33.0-37.0); MEAN PLATELET VOLUME 8.3 fl (7.2-11.7); MONO # 0.9 K/uL (0.0-0.8); MONO % 12.6 % (0.0-10.0); NEUT # 5.7 K/uL (1.8-7.0); NEUT % 77.8 % (50.0-75.0); NRBC % 1.7 % (0.0-0.0); PLATELET COUNT 407 K/uL (130-400); RBC 3.25 Mil/uL (3.80-5.20); RED CELL DISTRIBUTION WIDTH 19.8 % (11.5-14.5); WHITE BLOOD COUNT 7.3 K/uL (4.8-10.8)
[2017-12-20 07:39] LABS: T4 5.82 ug/dl (5.5-11.0)
[2017-12-20 08:56] LABS: ALB/GLOB RATIO 1.1 (1.0-2.1); ALBUMIN 3.3 g/dL (3.5-5.0); CALCIUM 9.3 mg/dL (8.4-10.2)
[2017-12-20 09:00] LABS: BASOPHIL 1 % (0-2); LYMPHOCYTE 9 % (20-50); METAMYELOCYTE 1 % (0-0); MONOCYTE 12 % (0-10); NEUTROPHIL 77 % (42-75); NUCLEATED RED BLOOD CELL 2 % (0-0); PLATELET ESTIMATE NORMAL (NORMAL); TOTAL CELLS COUNTED 100
[2017-12-20 09:01] LABS: ANISOCYTOSIS SLIGHT; POIKILOCYTOSIS SLIGHT
[2017-12-20] MEDS: Bacitracin OINT 15GM TOP SCH (09:01)
[2017-12-20 09:02] LABS: HYPOCHROMIC SLIGHT; LARGE PLATELETS PRESENT; OVALOCYTES SLIGHT; SCHISTOCYTES SLIGHT
[2017-12-20] MEDS: GlipiZIDE 2.5 mg SR Tab PO SCH (09:02)
[2017-12-20] MEDS: methIMAzole 5 MG TAB PO SCH (09:03)
[2017-12-20] MEDS: Enoxaparin 30 mg Syringe SC SCH (09:04)
[2017-12-20] MEDS: AMPICILLIN IVPB SCH ×2 (09:05→20:35)
[2017-12-20] MEDS: SULBACTAM IVPB SCH ×2 (09:05→20:35)
[2017-12-20] MEDS: Lactobacillus Acidophilus 500 MU Cap PO SCH ×2 (09:08→17:10)
--- NOTE | 2017-12-20 09:44 | CP.PCM.PN ---
Subjective - Date & Time of Evaluation Date of Evaluation: 12/20/17 Time of Evaluation: 09:00 - Subjective Subjective: FEELS A LITTLE BETTER TODAY WITH IV FLUIDS Objective - Vital Signs/Intake and Output Vital Signs (last 24 hours): Temp Pulse Resp BP Pulse Ox 97.1 F L 60 20 118/51 L 99 12/20/17 08:31 12/20/17 09:02 12/20/17 08:31 12/20/17 09:02 12/20/17 08:31 - Medications Medications: Current Medications Acetaminophen (Tylenol 325mg Tab) 650 mg PO Q4 PRN PRN Reason: Pain, Mild (1-3) Bacitracin (Bacitracin Oint) 1 applic TOP DAILY [facility] Last Admin: 12/20/17 09:01 Dose: Not Given Clopidogrel Bisulfate (Plavix) 75 mg PO DAILY [facility] Last Admin: 12/20/17 09:02 Dose: 75 mg Docusate Sodium (Colace) 100 mg PO DAILY [facility] Last Admin: 12/20/17 09:03 Dose: 100 mg Enoxaparin Sodium (Lovenox) 30 mg SC DAILY [facility] PRN Reason: Protocol Last Admin: 12/20/17 09:04 Dose: 30 mg Famotidine (Pepcid) 20 mg PO DAILY [facility] Last Admin: 12/20/17 09:02 Dose: 20 mg Ferrous Sulfate (Feosol) 325 mg PO DAILY [facility] Last Admin: 12/20/17 09:02 Dose: 325 mg Glipizide (Glucotrol Xl) 2.5 mg PO DAILY [facility] Last Admin: 12/20/17 09:02 Dose: 2.5 mg Ciprofloxacin (Cipro 200mg/100ml D5w) 100 mls @ 100 mls/hr IVPB Q12@0500,1700 [facility] PRN Reason: Protocol Last Admin: 12/20/17 04:28 Dose: 100 mls/hr Ampicillin Sodium/Sulbactam (Sodium 1.5 gm/ Sodium Chloride) 100 mls @ 100 mls/ hr IVPB Q12 [facility] Last Admin: 12/19/17 21:04 Dose: 100 mls/hr Sodium Chloride (Sodium Chloride 0.9%) 1,000 mls @ 100 mls/hr IV .Q10H [facility] Stop: 12/21/17 09:40 Isosorbide Mononitrate (Imdur Er) 30 mg PO DAILY [facility] Last Admin: 12/20/17 09:03 Dose: 30 mg Lactobacillus Acidophilus (Bacid Acidophilus) 1 cap PO BID [facility] Last Admin: 12/20/17 09:08 Dose: 1 cap Methimazole (Tapazole) 5 mg PO DAILY [facility] Last Admin: 12/20/17 09:03 Dose: 5 mg Metoprolol Tartrate (Lopressor) 25 mg PO Q12 [facility] Last Admin: 12/20/17 09:02 Dose: 25 mg Tramadol HCl (Ultram) 50 mg PO Q6 PRN PRN Reason: Pain, moderate (4-7) Last Admin: 12/20/17 03:05 Dose: 50 mg - Labs Labs: 12/20/17 06:30 12/20/17 06:30 - Respiratory Exam Respiratory Exam: Decreased Breath Sounds Additional comments: MILD RALES AT THE BASES - Cardiovascular Exam Cardiovascular Exam: REGULAR RHYTHM, +S1, +S2 - Additional Findings Additional findings: NA 141 K+ 4.6 BUN/CR 67/1.7 H/H 8.5 Assessment and Plan - Assessment and Plan (Free Text) Assessment: VENOUS INSUFFICIENCY WITH LOWER EXTREMITY BLISTERING AND ULCERATION CAD CHRONIC MILD DIASTOLIC CHF HYPERTENSION TYPE 2 DM PRE-RENAL AZOTEMIA Plan: FUROSEMIDE WAS DISCONTINUED AND NS IV FLUID INCREASED TO 100 CC/HR CONTINUE METOPROLOL, CLOPIDOGREL, NITRATES AND IV ANTIBIOTICS PODIATRY CARE
--- NOTE | 2017-12-20 10:29 | CP.PCM.PN ---
Subjective - Date & Time of Evaluation Date of Evaluation: 12/20/17 Time of Evaluation: 10:29 - Subjective Subjective: The patient was seen on morning rounds in the transitional care unit. She is seated on the edge of the bed awaiting podiatry to redress the lower extremities. She offers no complaint of chest pain or shortness of breath at the present time. Her vital signs have remained stable. A chest x-ray performed the other day showed some continued haziness at the left base. There is no apparent pleural effusion on the right. The dependent edema in both lower extremities is still 2+ but appears to be slightly decreased compared to today prior. There is no cyanosis. Dressings are still applied to both lower extremities and the ulcerations are not visualized. The neck is supple and trachea is midline. No neck vein distention. There is minimal dullness at the left base posteriorly. Breath sounds are diminished but present bilaterally, seemingly improving in the left lower lung field. Rare dry to medium rales are heard at the left base. There is no bronchial breathing or egophony. No audible wheezing. Respiratory status appears to be stable at the present time, despite the fact that there is most likely a persistent small left pleural effusion. Renal function appears to be deteriorating and ultrasound of the kidneys has been requested. Furosemide has been on hold because of the above. Objective - Vital Signs/Intake and Output Vital Signs (last 24 hours): Temp Pulse Resp BP Pulse Ox 97.1 F L 60 20 118/51 L 99 12/20/17 08:31 12/20/17 09:02 12/20/17 08:31 12/20/17 09:02 12/20/17 08:31 - Medications Medications: Current Medications Acetaminophen (Tylenol 325mg Tab) 650 mg PO Q4 PRN PRN Reason: Pain, Mild (1-3) Bacitracin (Bacitracin Oint) 1 applic TOP DAILY [facility] Last Admin: 12/20/17 09:01 Dose: Not Given Clopidogrel Bisulfate (Plavix) 75 mg PO DAILY [facility] Last Admin: 12/20/17 09:02 Dose: 75 mg Docusate Sodium (Colace) 100 mg PO DAILY [facility] Last Admin: 12/20/17 09:03 Dose: 100 mg Enoxaparin Sodium (Lovenox) 30 mg SC DAILY [facility] PRN Reason: Protocol Last Admin: 12/20/17 09:04 Dose: 30 mg Famotidine (Pepcid) 20 mg PO DAILY [facility] Last Admin: 12/20/17 09:02 Dose: 20 mg Ferrous Sulfate (Feosol) 325 mg PO DAILY [facility] Last Admin: 12/20/17 09:02 Dose: 325 mg Glipizide (Glucotrol Xl) 2.5 mg PO DAILY [facility] Last Admin: 12/20/17 09:02 Dose: 2.5 mg Ciprofloxacin (Cipro 200mg/100ml D5w) 100 mls @ 100 mls/hr IVPB Q12@0500,1700 [facility] PRN Reason: Protocol Last Admin: 12/20/17 04:28 Dose: 100 mls/hr Ampicillin Sodium/Sulbactam (Sodium 1.5 gm/ Sodium Chloride) 100 mls @ 100 mls/ hr IVPB Q12 [facility] Last Admin: 12/19/17 21:04 Dose: 100 mls/hr Sodium Chloride (Sodium Chloride 0.9%) 1,000 mls @ 100 mls/hr IV .Q10H [facility] Stop: 12/21/17 09:40 Isosorbide Mononitrate (Imdur Er) 30 mg PO DAILY [facility] Last Admin: 12/20/17 09:03 Dose: 30 mg Lactobacillus Acidophilus (Bacid Acidophilus) 1 cap PO BID [facility] Last Admin: 12/20/17 09:08 Dose: 1 cap Methimazole (Tapazole) 5 mg PO DAILY [facility] Last Admin: 12/20/17 09:03 Dose: 5 mg Metoprolol Tartrate (Lopressor) 25 mg PO Q12 [facility] Last Admin: 12/20/17 09:02 Dose: 25 mg Tramadol HCl (Ultram) 50 mg PO Q6 PRN PRN Reason: Pain, moderate (4-7) Last Admin: 12/20/17 03:05 Dose: 50 mg - Labs Labs: 12/20/17 06:30 12/20/17 06:30
[2017-12-20] MEDS: Sodium Chloride 0.9% 1,000 ML IV SCH ×2 (11:21→20:34)
[2017-12-20] MEDS ORDERED: Epoetin Alfa 20000 UNIT/ML (RENAL DOSE) SC ONE (13:25)
--- NOTE | 2017-12-20 14:45 | CP.PCM.PN ---
Subjective - Date & Time of Evaluation Date of Evaluation: 12/20/17 Time of Evaluation: 14:43 - Subjective Subjective: Podiatry Progress Note for Dr. Briseno 77 year old female seen at bedside for multiple lysed, blisters with some underlying infected wounds to her b/l LE. Patient states that the wounds that are open continue to be painful today. Denies any acute overnight events. Is AAO x 3 and NAD at time of visit and she denies any further pedal complaints at this time. Admits to not elevating her legs like she has been instructed to do and says that she loosened her bandages overnight. Per nursing, patient took off her CHAITANYA compression around 8 AM this morning, and has had her legs handing in a dependent position off the bed since that time to the point that she has soaked through her bandages and liquid pooled around her feet onto the floor. Denies any recent N/V/F/C/CP/SOB/D/posterior calf pain when squeezed. Objective - Vital Signs/Intake and Output Vital Signs (last 24 hours): Temp Pulse Resp BP Pulse Ox 97.1 F L 60 20 118/51 L 99 12/20/17 08:31 12/20/17 09:02 12/20/17 08:31 12/20/17 09:02 12/20/17 08:31 - Medications Medications: Current Medications Acetaminophen (Tylenol 325mg Tab) 650 mg PO Q4 PRN PRN Reason: Pain, Mild (1-3) Bacitracin (Bacitracin Oint) 1 applic TOP DAILY [facility] Last Admin: 12/20/17 09:01 Dose: Not Given Clopidogrel Bisulfate (Plavix) 75 mg PO DAILY [facility] Last Admin: 12/20/17 09:02 Dose: 75 mg Docusate Sodium (Colace) 100 mg PO DAILY [facility] Last Admin: 12/20/17 09:03 Dose: 100 mg Enoxaparin Sodium (Lovenox) 30 mg SC DAILY [facility] PRN Reason: Protocol Last Admin: 12/20/17 09:04 Dose: 30 mg Famotidine (Pepcid) 20 mg PO DAILY [facility] Last Admin: 12/20/17 09:02 Dose: 20 mg Ferrous Sulfate (Feosol) 325 mg PO DAILY [facility] Last Admin: 12/20/17 09:02 Dose: 325 mg Glipizide (Glucotrol Xl) 2.5 mg PO DAILY [facility] Last Admin: 12/20/17 09:02 Dose: 2.5 mg Ciprofloxacin (Cipro 200mg/100ml D5w) 100 mls @ 100 mls/hr IVPB Q12@0500,1700 [facility] PRN Reason: Protocol Last Admin: 12/20/17 04:28 Dose: 100 mls/hr Ampicillin Sodium/Sulbactam (Sodium 1.5 gm/ Sodium Chloride) 100 mls @ 100 mls/ hr IVPB Q12 [facility] Last Admin: 12/20/17 09:05 Dose: 100 mls/hr Sodium Chloride (Sodium Chloride 0.9%) 1,000 mls @ 100 mls/hr IV .Q10H [facility] Stop: 12/21/17 09:40 Last Admin: 12/20/17 11:21 Dose: 100 mls/hr Isosorbide Mononitrate (Imdur Er) 30 mg PO DAILY [facility] Last Admin: 12/20/17 09:03 Dose: 30 mg Lactobacillus Acidophilus (Bacid Acidophilus) 1 cap PO BID [facility] Last Admin: 12/20/17 09:08 Dose: 1 cap Methimazole (Tapazole) 5 mg PO DAILY [facility] Last Admin: 12/20/17 09:03 Dose: 5 mg Metoprolol Tartrate (Lopressor) 25 mg PO Q12 [facility] Last Admin: 12/20/17 09:02 Dose: 25 mg Tramadol HCl (Ultram) 50 mg PO Q6 PRN PRN Reason: Pain, moderate (4-7) Last Admin: 12/20/17 13:50 Dose: 50 mg - Labs Labs: 12/20/17 06:30 12/20/17 06:30 - Constitutional Appears: Well, Non-toxic, No Acute Distress - Extremities Exam Additional comments: Dressing: not intact, serous drainage soaking through, clear evidence of patient tampering Vasc: DP pulses weakly palpable 1/4 b/l. Non- palpable PT pulses secondary to edema, +2 pitting edema to bilateral LE, TG wnl, CFT < 4 sec to all digits. Neuro: Epicritic and protective sensation grossly intact b/l Derm: Multiple chronic, lanced bullae noted to b/l legs. One superficial open lysed blister measuring roughly 2 cm x 2 cm x 0.1 cm seen on posteriomedial left leg- serous drainage, minimal malodor, minimal periwound erythema noted. Second, larger open blister noted to posterior right calf measuring roughly 8 cm x 5 cm x 0.2 cm- 80% fibrotic base, serous drainage, minimal malodor, minimal periwound erythema noted. No clinical signs of infection. All blisters continue to weep Ortho: Helene's sign negative b/l. All open blister sites painful to palpation - Neurological Exam Neurological Exam: Alert, Awake, Oriented x3 - Psychiatric Exam Psychiatric exam: Normal Affect, Normal Mood Assessment and Plan - Assessment and Plan (Free Text) Assessment: 77 year old female seen at bedside for multiple lysed, blisters with some underlying infected wounds to her b/l LE. Plan: Patient seen and evaluated at bedside Charts, labs, vitals reviewed Plan discussed with attending Dr. Briseno Afebrile, absent leukocytosis Continue IV abx per ID Continue medical management per Medicine Wound Cx- Right Leg: Proteus Penneri, Enterococcus Faecalis Venous duplex - No evidence of LE DVT Arterial Duplex - Diffuse atherosclerotic changes b/l Wounds scrubbed with soap solution and saline, dressed with alginate, ABD, DSD, CHAITANYA for light compression Patient was strongly advised to leave dressings intact and to elevate as much as possible No plan for surgical intervention at this time Podiatry will continue to follow while patient in house
--- NOTE | 2017-12-20 19:42 | CP.PCM.CON ---
History of Present Illness - History of Present Illness History of Present Illness: Dr Berrios PMR consultation on Pat Philip, born 1940 who has been admitted to the TCU for DEBRA. Has + bilateral foot ulceration, defer to podiatry wrapped now. Denies pain. 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, used a cane when outside Review of Systems - Constitutional Constitutional: absent: Anorexia, Chills - EENT Eyes: absent: Blurred Vision Ears: absent: Decreased Hearing Nose/Mouth/Throat: absent: Nasal Congestion - Cardiovascular Cardiovascular: absent: Chest Pain - Respiratory Respiratory: absent: Cough, Dyspnea - Gastrointestinal Gastrointestinal: absent: Abdominal Pain, Constipation Past Patient History - Infectious Disease Hx of Infectious Diseases: None - Past Medical History & Family History Past Medical History?: Yes - Past Social History Smoking Status: Former Smoker Alcohol: Occasional Drugs: Denies Home Situation {Lives}: Alone (+ steps) - CARDIAC Hx Congestive Heart Failure: Yes Hx Hypercholesterolemia: Yes Hx Hypertension: Yes - PULMONARY Hx Chronic Obstructive Pulmonary Disease (COPD): Yes - NEUROLOGICAL Other/Comment: Paresthesias of both feet - HEENT Hx HEENT Problems: No - RENAL Hx Chronic Kidney Disease: Yes Hx Kidney Stones: Yes (kidney stone removal) - ENDOCRINE/METABOLIC Hx Diabetes Mellitus Type 2: Yes - HEMATOLOGICAL/ONCOLOGICAL Hx AIDS: No Hx Anemia: Yes Hx Human Immunodeficiency Virus (HIV): No - INTEGUMENTARY Hx Dermatological Problems: Yes Other/Comment: Dependent edema of both lower extremities with blister formation - MUSCULOSKELETAL/RHEUMATOLOGICAL Hx Falls: Yes Hx Unsteady Gait: Yes - GASTROINTESTINAL Hx Gastrointestinal Disorders: No - GENITOURINARY/GYNECOLOGICAL Hx Genitourinary Disorders: No - PSYCHIATRIC Hx Psychophysiologic Disorder: No Hx Substance Use: No - SURGICAL HISTORY Hx Appendectomy: Yes Other/Comment: kidney stone removal - ANESTHESIA Hx Anesthesia: Yes Hx Anesthesia Reactions: No Hx Malignant Hyperthermia: No Meds Allergies/Adverse Reactions: Allergies Allergy/AdvReac Type Severity Reaction Status Date / Time No Known Allergies Allergy Verified 12/18/17 16:07 - Medications Medications: Current Medications Acetaminophen (Tylenol 325mg Tab) 650 mg PO Q4 PRN PRN Reason: Pain, Mild (1-3) Bacitracin (Bacitracin Oint) 1 applic TOP DAILY [facility] Last Admin: 12/20/17 09:01 Dose: Not Given Clopidogrel Bisulfate (Plavix) 75 mg PO DAILY [facility] Last Admin: 12/20/17 09:02 Dose: 75 mg Docusate Sodium (Colace) 100 mg PO DAILY [facility] Last Admin: 12/20/17 09:03 Dose: 100 mg Enoxaparin Sodium (Lovenox) 30 mg SC DAILY [facility] PRN Reason: Protocol Last Admin: 12/20/17 09:04 Dose: 30 mg Famotidine (Pepcid) 20 mg PO DAILY [facility] Last Admin: 12/20/17 09:02 Dose: 20 mg Ferrous Sulfate (Feosol) 325 mg PO DAILY [facility] Last Admin: 12/20/17 09:02 Dose: 325 mg Glipizide (Glucotrol Xl) 2.5 mg PO DAILY [facility] Last Admin: 12/20/17 09:02 Dose: 2.5 mg Ciprofloxacin (Cipro 200mg/100ml D5w) 100 mls @ 100 mls/hr IVPB Q12@0500,1700 [facility] PRN Reason: Protocol Last Admin: 12/20/17 17:10 Dose: 100 mls/hr Ampicillin Sodium/Sulbactam (Sodium 1.5 gm/ Sodium Chloride) 100 mls @ 100 mls/ hr IVPB Q12 [facility] Last Admin: 12/20/17 09:05 Dose: 100 mls/hr Sodium Chloride (Sodium Chloride 0.9%) 1,000 mls @ 100 mls/hr IV .Q10H [facility] Stop: 12/21/17 09:40 Last Admin: 12/20/17 11:21 Dose: 100 mls/hr Isosorbide Mononitrate (Imdur Er) 30 mg PO DAILY [facility] Last Admin: 12/20/17 09:03 Dose: 30 mg Lactobacillus Acidophilus (Bacid Acidophilus) 1 cap PO BID [facility] Last Admin: 12/20/17 17:10 Dose: 1 cap Methimazole (Tapazole) 5 mg PO DAILY [facility] Last Admin: 12/20/17 09:03 Dose: 5 mg Metoprolol Tartrate (Lopressor) 25 mg PO Q12 [facility] Last Admin: 12/20/17 09:02 Dose: 25 mg Tramadol HCl (Ultram) 50 mg PO Q6 PRN PRN Reason: Pain, moderate (4-7) Last Admin: 12/20/17 13:50 Dose: 50 mg Physical Exam - Constitutional Appears: Non-toxic, No Acute Distress - Head Exam Head Exam: ATRAUMATIC, NORMAL INSPECTION, NORMOCEPHALIC - Eye Exam Eye Exam: EOMI - ENT Exam ENT Exam: Mucous Membranes Moist - Respiratory Exam Respiratory Exam: NORMAL BREATHING PATTERN - Cardiovascular Exam Cardiovascular Exam: REGULAR RHYTHM - GI/Abdominal Exam GI & Abdominal Exam: Normal Bowel Sounds - Extremities Exam Extremities exam: Positive for: joint swelling (some synovical changes in knees R>L). Negative for: normal inspection (has bilateral leg wraps) Results - Vital Signs Recent Vital Signs: Last Vital Signs Temp 97.0 F L 12/20/17 16:01 Pulse 60 12/20/17 16:01 Resp 20 12/20/17 16:01 BP 115/50 L 12/20/17 16:01 Pulse Ox 96 12/20/17 16:01 - Labs Result Diagrams: 12/20/17 06:30 12/20/17 06:30 Labs: Laboratory Results - last 24 hr 12/20/17 12/20/17 12/20/17 06:16 06:30 06:30 WBC 7.3 RBC 3.25 L Hgb 8.5 L Hct 27.0 L MCV 83.1 D MCH 26.2 L MCHC 31.5 L RDW 19.8 H Plt Count 407 H MPV 8.3 Neut % (Auto) 77.8 H Lymph % (Auto) 7.9 L [place] % (Auto) 12.6 H Eos % (Auto) 1.0 Baso % (Auto) 0.7 Neut # (Auto) 5.7 Lymph # (Auto) 0.6 L [place] # (Auto) 0.9 H Eos # (Auto) 0.1 Baso # (Auto) 0.0 Neutrophils % (Manual) 77 H Lymphocytes % (Manual) 9 L Monocytes % (Manual) 12 H Basophils % (Manual) 1 Metamyelocytes % 1 H Nucleated RBC % 2 H Platelet Estimate Normal Large Platelets Present Hypochromasia (manual) Slight Poikilocytosis (manual Slight Anisocytosis (manual) Slight Ovalocytes Slight Schistocytes Slight Sodium 141 Potassium 4.6 Chloride 101 Carbon Dioxide 20 L Anion Gap 25 H BUN 67 H Creatinine 1.7 H Est GFR ( Amer) 35 Est GFR (Non-Af Amer) 29 POC Glucose (mg/dL) 111 H Random Glucose 104 Calcium 9.3 Total Bilirubin 0.9 AST 78 H D ALT 94 H D Alkaline Phosphatase 100 Total Protein 6.3 Albumin 3.3 L Globulin 2.9 Albumin/Globulin Ratio 1.1 Thyroxine (T4) 5.82 TSH 3rd Generation 3.30 12/20/17 15:45 WBC RBC Hgb Hct MCV MCH MCHC RDW Plt Count MPV Neut % (Auto) Lymph % (Auto) [place] % (Auto) Eos % (Auto) Baso % (Auto) Neut # (Auto) Lymph # (Auto) [place] # (Auto) Eos # (Auto) Baso # (Auto) Neutrophils % (Manual) Lymphocytes % (Manual) Monocytes % (Manual) Basophils % (Manual) Metamyelocytes % Nucleated RBC % Platelet Estimate Large Platelets Hypochromasia (manual) Poikilocytosis (manual Anisocytosis (manual) Ovalocytes Schistocytes Sodium Potassium Chloride Carbon Dioxide Anion Gap BUN Creatinine Est GFR ( Amer) Est GFR (Non-Af Amer) POC Glucose (mg/dL) 88 Random Glucose Calcium Total Bilirubin AST ALT Alkaline Phosphatase Total Protein Albumin Globulin Albumin/Globulin Ratio Thyroxine (T4) TSH 3rd Generation Assessment & Plan - Assessment and Plan (Free Text) Plan: PT/OT to continue to help increase functional independence Pain: controlled GI: No evidence of constipation or diarrhea Patient continues to be an excellent TCU rehabilitation candidate and will have continued focused PT, OT and recreational therapy to help facilitate a safe and appropriate d/c plan
--- NOTE | 2017-12-20 19:59 | CP.PCM.PN ---
Subjective - Date & Time of Evaluation Date of Evaluation: 12/20/17 Time of Evaluation: 22:22 - Subjective Subjective: Sitting up in bed Leg pain Objective - Vital Signs/Intake and Output Vital Signs (last 24 hours): Temp Pulse Resp BP Pulse Ox 97.0 F L 60 20 115/50 L 96 12/20/17 16:01 12/20/17 16:01 12/20/17 16:01 12/20/17 16:01 12/20/17 16:01 - Medications Medications: Current Medications Acetaminophen (Tylenol 325mg Tab) 650 mg PO Q4 PRN PRN Reason: Pain, Mild (1-3) Bacitracin (Bacitracin Oint) 1 applic TOP DAILY [facility] Last Admin: 12/20/17 09:01 Dose: Not Given Clopidogrel Bisulfate (Plavix) 75 mg PO DAILY [facility] Last Admin: 12/20/17 09:02 Dose: 75 mg Docusate Sodium (Colace) 100 mg PO DAILY [facility] Last Admin: 12/20/17 09:03 Dose: 100 mg Enoxaparin Sodium (Lovenox) 30 mg SC DAILY [facility] PRN Reason: Protocol Last Admin: 12/20/17 09:04 Dose: 30 mg Famotidine (Pepcid) 20 mg PO DAILY [facility] Last Admin: 12/20/17 09:02 Dose: 20 mg Ferrous Sulfate (Feosol) 325 mg PO DAILY [facility] Last Admin: 12/20/17 09:02 Dose: 325 mg Glipizide (Glucotrol Xl) 2.5 mg PO DAILY [facility] Last Admin: 12/20/17 09:02 Dose: 2.5 mg Ciprofloxacin (Cipro 200mg/100ml D5w) 100 mls @ 100 mls/hr IVPB Q12@0500,1700 [facility] PRN Reason: Protocol Last Admin: 12/20/17 17:10 Dose: 100 mls/hr Ampicillin Sodium/Sulbactam (Sodium 1.5 gm/ Sodium Chloride) 100 mls @ 100 mls/ hr IVPB Q12 [facility] Last Admin: 12/20/17 09:05 Dose: 100 mls/hr Sodium Chloride (Sodium Chloride 0.9%) 1,000 mls @ 100 mls/hr IV .Q10H [facility] Stop: 12/21/17 09:40 Last Admin: 12/20/17 11:21 Dose: 100 mls/hr Isosorbide Mononitrate (Imdur Er) 30 mg PO DAILY [facility] Last Admin: 12/20/17 09:03 Dose: 30 mg Lactobacillus Acidophilus (Bacid Acidophilus) 1 cap PO BID [facility] Last Admin: 12/20/17 17:10 Dose: 1 cap Methimazole (Tapazole) 5 mg PO DAILY [facility] Last Admin: 12/20/17 09:03 Dose: 5 mg Metoprolol Tartrate (Lopressor) 25 mg PO Q12 [facility] Last Admin: 12/20/17 09:02 Dose: 25 mg Tramadol HCl (Ultram) 50 mg PO Q6 PRN PRN Reason: Pain, moderate (4-7) Last Admin: 12/20/17 13:50 Dose: 50 mg - Labs Labs: 12/20/17 06:30 12/20/17 06:30 - Respiratory Exam Respiratory Exam: NORMAL BREATHING PATTERN - Cardiovascular Exam Cardiovascular Exam: REGULAR RHYTHM - GI/Abdominal Exam GI & Abdominal Exam: Normal Bowel Sounds Assessment and Plan - Assessment and Plan (Free Text) Assessment: Leg pain?? Low ext edema with blisters- etiol? Venous vs Arterial? Infectious? Hx Serratia G- Leg elevation IV ABX ID Podiatry Surgery Neurology Physiatry Arterial studies MARY CT scan L-S area Prerenal?? ABBEY IVF Labs US Nephrology CHF Diastolic CAD stress thalium scarring ischemia?? cardiac cath refused?? Cardiology Hx COPD L Pleural effusion Pulmonary Hx Anemia ASA d/c as outpt due to dec Hbg Stool for OB ?? Hematology consult NIDDM Thyroid dx Endo
--- NOTE | 2017-12-20 20:02 | PN ---
ENDOCRINOLOGY FOLLOWUP NOTE DATE: 12/20/2017 LOCATION: In room 708, [facility] SUBJECTIVE: This is a 77-year-old female with recent admission for congestive heart failure and has since then improved clinically and hemodynamically as noted thereof. Her glycemic levels are fluctuating, but improved also because of the variability of her oral intake as noted. Her glucose values today have ranged from 88 to 111 and 119 mg/dL. Her latest chemistry showed a BUN of 67, sodium 141, potassium 4.6, chloride 101, CO2 of 20, glucose 104, and creatinine 1.7. Her latest thyroid studies showed a T4 of 5.82 with a TSH of 3.30. ASSESSMENT AND PLAN: This is a 77-year-old female with near optimal metabolic control of her diabetic condition as noted and just a low-dose oral hypoglycemic therapy as given. She also remains clinically and biochemically euthyroid with underlying Graves disease and hyperthyroidism. Plan of management as discussed with the patient and staff. We will continue her low dose glipizide given as 2.5 mg once daily in the morning as ordered. We will continue the low-dose correction scale using regular insulin as given. We will titrate incremental as indicated to optimize metabolic control. We will also continue the serial chemistries and supplement accordingly as needed. Moreover, we will continue the Tapazole given as 5 mg once daily in the morning as ordered. We will obtain serial chemistries and supplement accordingly as needed. We will follow. Lucia Corley MD
[2017-12-21] MEDS: Ciprofloxacin 200mg/100ml D5W 100 ML IVPB SCH ×2 (04:12→17:19)
[2017-12-21] MEDS: Sodium Chloride 0.9% 1,000 ML IV SCH ×2 (05:29→18:41)
[2017-12-21] MEDS: AMPICILLIN IVPB SCH ×2 (08:29→20:33)
[2017-12-21] MEDS: SULBACTAM IVPB SCH ×2 (08:29→20:33)
[2017-12-21] MEDS: Lactobacillus Acidophilus 500 MU Cap PO SCH ×2 (09:54→17:20)
[2017-12-21] MEDS: GlipiZIDE 2.5 mg SR Tab PO SCH (09:55)
[2017-12-21] MEDS: methIMAzole 5 MG TAB PO SCH (09:55)
[2017-12-21] MEDS: Enoxaparin 30 mg Syringe SC SCH (09:56)
[2017-12-21] MEDS: Bacitracin OINT 15GM TOP SCH (11:12)
--- NOTE | 2017-12-21 13:46 | CP.PCM.PN ---
Subjective - Date & Time of Evaluation Date of Evaluation: 12/21/17 Time of Evaluation: 13:46 - Subjective Subjective: Podiatry Progress Note for Dr. Briseno 77 year old female seen at bedside with attending Dr. Briseno for multiple lysed , blisters with some underlying infected wounds to her b/l LE. She admits to continued pain to both legs at sites of wounds. Denies any acute overnight events. Is AAO x 3 and NAD at time of visit and she denies any further pedal complaints at this time. States she is not elevating the legs but admits to keeping her CHAITANYA bandages on today. She states she refused ultrasound because she is tired of tests being done. Denies any recent N/V/F/C/CP/SOB/D/posterior calf pain when squeezed. Objective - Vital Signs/Intake and Output Vital Signs (last 24 hours): Temp Pulse Resp BP Pulse Ox 97.0 F L 65 20 123/59 L 98 12/21/17 08:20 12/21/17 09:55 12/21/17 08:20 12/21/17 09:55 12/21/17 08:20 - Medications Medications: Current Medications Acetaminophen (Tylenol 325mg Tab) 650 mg PO Q4 PRN PRN Reason: Pain, Mild (1-3) Bacitracin (Bacitracin Oint) 1 applic TOP DAILY [facility] Last Admin: 12/21/17 11:12 Dose: Not Given Clopidogrel Bisulfate (Plavix) 75 mg PO DAILY [facility] Last Admin: 12/21/17 09:55 Dose: 75 mg Docusate Sodium (Colace) 100 mg PO DAILY [facility] Last Admin: 12/21/17 09:55 Dose: 100 mg Enoxaparin Sodium (Lovenox) 30 mg SC DAILY [facility] PRN Reason: Protocol Last Admin: 12/21/17 09:56 Dose: 30 mg Famotidine (Pepcid) 20 mg PO DAILY [facility] Last Admin: 12/21/17 09:55 Dose: 20 mg Ferrous Sulfate (Feosol) 325 mg PO DAILY [facility] Last Admin: 12/21/17 09:55 Dose: 325 mg Glipizide (Glucotrol Xl) 2.5 mg PO DAILY [facility] Last Admin: 12/21/17 09:55 Dose: 2.5 mg Ciprofloxacin (Cipro 200mg/100ml D5w) 100 mls @ 100 mls/hr IVPB Q12@0500,1700 [facility] PRN Reason: Protocol Last Admin: 12/21/17 04:12 Dose: 100 mls/hr Ampicillin Sodium/Sulbactam (Sodium 1.5 gm/ Sodium Chloride) 100 mls @ 100 mls/ hr IVPB Q12 [facility] Last Admin: 12/21/17 08:29 Dose: 100 mls/hr Isosorbide Mononitrate (Imdur Er) 30 mg PO DAILY [facility] Last Admin: 12/21/17 09:55 Dose: 30 mg Lactobacillus Acidophilus (Bacid Acidophilus) 1 cap PO BID [facility] Last Admin: 12/21/17 09:54 Dose: 1 cap Methimazole (Tapazole) 5 mg PO DAILY [facility] Last Admin: 12/21/17 09:55 Dose: 5 mg Metoprolol Tartrate (Lopressor) 25 mg PO Q12 [facility] Last Admin: 12/21/17 09:55 Dose: 25 mg Tramadol HCl (Ultram) 50 mg PO Q6 PRN PRN Reason: Pain, moderate (4-7) Last Admin: 12/21/17 09:58 Dose: 50 mg - Labs Labs: 12/20/17 06:30 12/20/17 06:30 - Constitutional Appears: Well, Non-toxic, No Acute Distress - Extremities Exam Additional comments: Dressings intact to B/L LE Vasc: DP pulses weakly palpable 1/4 B/K. Non- palpable PT pulses secondary to edema, +2 pitting edema to bilateral LE, TG wnl, CFT < 4 sec to all digits. Neuro: Epicritic and protective sensation grossly intact b/l Derm: Multiple chronic, lanced bullae noted to bilateral legs. Open lysed blister site measuring 6cm x 6cm x 0.1cm to posterior leg mid calf. Additional open lysed blister site with superficial ulceration measuring 4cm x 1.5cm x 0.1cm noted to anteromedial left leg. Third ulceration site noted to dorsum of L foot with central necrotic hard eschar, measuring 4cm x 4.5cm x 0.2cm. Post debridement, underlying epithelization with healthy pink skin edges noted to dorsal left foot ulcer site. All sites (-) for purulence, malodor, fluctuance, probe to bone, tunneling or undermining. All blisters continue to weep serous fluid Ortho: Helene's sign negative B/L. All open blister sites are moderately tender to palpation - Neurological Exam Neurological Exam: Alert, Awake, Oriented x3 - Psychiatric Exam Psychiatric exam: Normal Affect, Normal Mood Assessment and Plan - Assessment and Plan (Free Text) Assessment: 77 year old female seen at bedside for multiple lysed, blisters with some underlying infected wounds to her b/l LE Plan: Patient seen and evaluated at bedside with attending Dr. Briseno Charts, labs, vitals reviewed Afebrile, absent leukocytosis (WBC 7.3) Continue IV abx per ID Continue medical management per medicine Wound Cx- Right Leg: Proteus Penneri, Enterococcus Faecalis Venous duplex - No evidence of LE DVT Arterial Duplex - Diffuse atherosclerotic changes B/L Aseptic excisional debridement performed by Dr. Briseno of superficial fibrotic and hyperkeratotic tissue at dorsum of L foot Post debridement reveals healthy new epithelialized tissue Wounds scrubbed with soap solution and saline, dressed with alginate, ABD, DSD, CHAITANYA for light compression Patient was strongly advised to leave dressings intact and to elevate as much as possible No plan for surgical intervention at this time Podiatry will continue to follow while patient in house
--- NOTE | 2017-12-21 13:53 | CP.PCM.PN ---
Subjective - Date & Time of Evaluation Date of Evaluation: 12/21/17 Time of Evaluation: 13:40 - Subjective Subjective: NO CHEST PAIN OR SOB Objective - Vital Signs/Intake and Output Vital Signs (last 24 hours): Temp Pulse Resp BP Pulse Ox 97.0 F L 65 20 123/59 L 98 12/21/17 08:20 12/21/17 09:55 12/21/17 08:20 12/21/17 09:55 12/21/17 08:20 - Medications Medications: Current Medications Acetaminophen (Tylenol 325mg Tab) 650 mg PO Q4 PRN PRN Reason: Pain, Mild (1-3) Bacitracin (Bacitracin Oint) 1 applic TOP DAILY [facility] Last Admin: 12/21/17 11:12 Dose: Not Given Clopidogrel Bisulfate (Plavix) 75 mg PO DAILY [facility] Last Admin: 12/21/17 09:55 Dose: 75 mg Docusate Sodium (Colace) 100 mg PO DAILY [facility] Last Admin: 12/21/17 09:55 Dose: 100 mg Enoxaparin Sodium (Lovenox) 30 mg SC DAILY [facility] PRN Reason: Protocol Last Admin: 12/21/17 09:56 Dose: 30 mg Famotidine (Pepcid) 20 mg PO DAILY [facility] Last Admin: 12/21/17 09:55 Dose: 20 mg Ferrous Sulfate (Feosol) 325 mg PO DAILY [facility] Last Admin: 12/21/17 09:55 Dose: 325 mg Glipizide (Glucotrol Xl) 2.5 mg PO DAILY [facility] Last Admin: 12/21/17 09:55 Dose: 2.5 mg Ciprofloxacin (Cipro 200mg/100ml D5w) 100 mls @ 100 mls/hr IVPB Q12@0500,1700 [facility] PRN Reason: Protocol Last Admin: 12/21/17 04:12 Dose: 100 mls/hr Ampicillin Sodium/Sulbactam (Sodium 1.5 gm/ Sodium Chloride) 100 mls @ 100 mls/ hr IVPB Q12 [facility] Last Admin: 12/21/17 08:29 Dose: 100 mls/hr Isosorbide Mononitrate (Imdur Er) 30 mg PO DAILY [facility] Last Admin: 12/21/17 09:55 Dose: 30 mg Lactobacillus Acidophilus (Bacid Acidophilus) 1 cap PO BID [facility] Last Admin: 12/21/17 09:54 Dose: 1 cap Methimazole (Tapazole) 5 mg PO DAILY [facility] Last Admin: 12/21/17 09:55 Dose: 5 mg Metoprolol Tartrate (Lopressor) 25 mg PO Q12 [facility] Last Admin: 12/21/17 09:55 Dose: 25 mg Tramadol HCl (Ultram) 50 mg PO Q6 PRN PRN Reason: Pain, moderate (4-7) Last Admin: 12/21/17 09:58 Dose: 50 mg - Labs Labs: 12/20/17 06:30 12/20/17 06:30 - Respiratory Exam Respiratory Exam: Decreased Breath Sounds - Cardiovascular Exam Cardiovascular Exam: REGULAR RHYTHM, +S1, +S2 Assessment and Plan - Assessment and Plan (Free Text) Assessment: CAD CHRONIC DIASTOLIC CHF HYPERTENSION LOWER EXTREMITY VENOUS INSUFFICIENCY TYPE 2 DM ABBEY-PROBABLY PRE-RENAL Plan: RENAL CONSULT REPORT PENDING RENAL US DONE-REPORT PENDING CONTINUE IV FLUIDS BMP IN AM CONTINUE METOPROLOL, CLOPIDOGREL, NITRATES AND ANTIBIOTICS
--- NOTE | 2017-12-21 19:25 | CP.PCM.CON ---
History of Present Illness - History of Present Illness History of Present Illness: renal consult note 77 yr old with history of DM, CAD, CHF, chronic anemia, PVD with lower extremity swelling and infected skin wounds, is admitted to TCU. no prior hx of ckd, no nsaid use. gives remote hx of kidney stones. no hx of ckd no urinary complaints Review of Systems - Review of Systems All systems: reviewed and no additional remarkable complaints except Past Patient History - Infectious Disease Hx of Infectious Diseases: None - Past Medical History & Family History Past Medical History?: Yes - Past Social History Smoking Status: Former Smoker Alcohol: Occasional Drugs: Denies Home Situation {Lives}: Alone (+ steps) - CARDIAC Hx Congestive Heart Failure: Yes Hx Hypercholesterolemia: Yes Hx Hypertension: Yes - PULMONARY Hx Chronic Obstructive Pulmonary Disease (COPD): Yes - NEUROLOGICAL Other/Comment: Paresthesias of both feet - HEENT Hx HEENT Problems: No - RENAL Hx Chronic Kidney Disease: Yes Hx Kidney Stones: Yes (kidney stone removal) - ENDOCRINE/METABOLIC Hx Diabetes Mellitus Type 2: Yes - HEMATOLOGICAL/ONCOLOGICAL Hx AIDS: No Hx Anemia: Yes Hx Human Immunodeficiency Virus (HIV): No - INTEGUMENTARY Hx Dermatological Problems: Yes Other/Comment: Dependent edema of both lower extremities with blister formation - MUSCULOSKELETAL/RHEUMATOLOGICAL Hx Falls: Yes Hx Unsteady Gait: Yes - GASTROINTESTINAL Hx Gastrointestinal Disorders: No - GENITOURINARY/GYNECOLOGICAL Hx Genitourinary Disorders: No - PSYCHIATRIC Hx Psychophysiologic Disorder: No Hx Substance Use: No - SURGICAL HISTORY Hx Appendectomy: Yes Other/Comment: kidney stone removal - ANESTHESIA Hx Anesthesia: Yes Hx Anesthesia Reactions: No Hx Malignant Hyperthermia: No Meds Allergies/Adverse Reactions: Allergies Allergy/AdvReac Type Severity Reaction Status Date / Time No Known Allergies Allergy Verified 12/18/17 16:07 - Medications Medications: Current Medications Acetaminophen (Tylenol 325mg Tab) 650 mg PO Q4 PRN PRN Reason: Pain, Mild (1-3) Bacitracin (Bacitracin Oint) 1 applic TOP DAILY [facility] Last Admin: 12/21/17 11:12 Dose: Not Given Clopidogrel Bisulfate (Plavix) 75 mg PO DAILY [facility] Last Admin: 12/21/17 09:55 Dose: 75 mg Docusate Sodium (Colace) 100 mg PO DAILY [facility] Last Admin: 12/21/17 09:55 Dose: 100 mg Enoxaparin Sodium (Lovenox) 30 mg SC DAILY [facility] PRN Reason: Protocol Last Admin: 12/21/17 09:56 Dose: 30 mg Famotidine (Pepcid) 20 mg PO DAILY [facility] Last Admin: 12/21/17 09:55 Dose: 20 mg Ferrous Sulfate (Feosol) 325 mg PO DAILY [facility] Last Admin: 12/21/17 09:55 Dose: 325 mg Glipizide (Glucotrol Xl) 2.5 mg PO DAILY [facility] Last Admin: 12/21/17 09:55 Dose: 2.5 mg Ciprofloxacin (Cipro 200mg/100ml D5w) 100 mls @ 100 mls/hr IVPB Q12@0500,1700 [facility] PRN Reason: Protocol Last Admin: 12/21/17 17:19 Dose: 100 mls/hr Ampicillin Sodium/Sulbactam (Sodium 1.5 gm/ Sodium Chloride) 100 mls @ 100 mls/ hr IVPB Q12 [facility] Last Admin: 12/21/17 08:29 Dose: 100 mls/hr Sodium Chloride (Sodium Chloride 0.9%) 1,000 mls @ 100 mls/hr IV .Q10H [facility] Stop: 12/22/17 17:21 Last Admin: 12/21/17 18:41 Dose: 100 mls/hr Isosorbide Mononitrate (Imdur Er) 30 mg PO DAILY [facility] Last Admin: 12/21/17 09:55 Dose: 30 mg Lactobacillus Acidophilus (Bacid Acidophilus) 1 cap PO BID [facility] Last Admin: 12/21/17 17:20 Dose: 1 cap Methimazole (Tapazole) 5 mg PO DAILY [facility] Last Admin: 12/21/17 09:55 Dose: 5 mg Metoprolol Tartrate (Lopressor) 25 mg PO Q12 [facility] Last Admin: 12/21/17 09:55 Dose: 25 mg Tramadol HCl (Ultram) 50 mg PO Q6 PRN PRN Reason: Pain, moderate (4-7) Last Admin: 12/21/17 09:58 Dose: 50 mg Physical Exam - Constitutional Appears: Non-toxic, No Acute Distress - Head Exam Head Exam: NORMAL INSPECTION - Eye Exam Eye Exam: Normal appearance - ENT Exam ENT Exam: Mucous Membranes Moist - Neck Exam Neck exam: Positive for: Normal Inspection - Respiratory Exam Respiratory Exam: Clear to Auscultation Bilateral, NORMAL BREATHING PATTERN - Cardiovascular Exam Cardiovascular Exam: +S1, +S2 - GI/Abdominal Exam GI & Abdominal Exam: Normal Bowel Sounds, Soft - Extremities Exam Extremities exam: Positive for: pedal edema - Neurological Exam Neurological exam: Alert, Oriented x3 - Psychiatric Exam Psychiatric exam: Normal Mood - Skin Skin Exam: Dry, Warm Results - Vital Signs Recent Vital Signs: Last Vital Signs Temp 97.0 F L 12/21/17 16:16 Pulse 56 L 12/21/17 16:16 Resp 20 12/21/17 16:16 BP 106/53 L 12/21/17 16:16 Pulse Ox 97 12/21/17 16:16 - Labs Result Diagrams: 12/20/17 06:30 12/22/17 06:30 Labs: Laboratory Results - last 24 hr 12/21/17 12/21/17 12/21/17 05:22 11:02 16:00 POC Glucose (mg/dL) 118 H 145 H 159 H Assessment & Plan - Assessment and Plan (Free Text) Plan: ABBEY/CKD/anemia/acidosis/dm/htn/leg edema no prior hx of ckd, likely abbey is prerenal i have ordered urinalysis, urinelytes renal USG done, results pending continue current meds for bp acidosis: mild monitor for now anemia: can check iron profile thank you will continue to follow
[2017-12-21 22:28] LABS: SQUAMOUS EPITHIAL 1 /hpf (0-5); URINE BILIRUBIN NEGATIVE (NEGATIVE); URINE BLOOD NEGATIVE (NEGATIVE); URINE CLARITY SLIGHTY-CLOUDY (Clear); URINE COLOR YELLOW (YELLOW); URINE GLUCOSE (UA) NEG (Normal); URINE LEUKOCYTE ESTERASE NEG Leu/uL (Negative); URINE PROTEIN NEGATIVE (NEGATIVE)
[2017-12-21 23:56] LABS: URINE BACTERIA RARE (<OCC)
[2017-12-22] MEDS: Sodium Chloride 0.9% 1,000 ML IV SCH ×2 (03:54→12:38)
[2017-12-22] MEDS: Ciprofloxacin 200mg/100ml D5W 100 ML IVPB SCH ×2 (04:09→17:22)
[2017-12-22 07:05] LABS: CALCIUM 8.2 mg/dL (8.4-10.2)
[2017-12-22] MEDS: methIMAzole 5 MG TAB PO SCH (08:49)
[2017-12-22] MEDS: GlipiZIDE 2.5 mg SR Tab PO SCH (08:49)
[2017-12-22] MEDS: Enoxaparin 30 mg Syringe SC SCH (08:52)
[2017-12-22] MEDS: Bacitracin OINT 15GM TOP SCH (08:53)
[2017-12-22] MEDS: SULBACTAM IVPB SCH ×2 (08:55→21:13)
[2017-12-22] MEDS: AMPICILLIN IVPB SCH ×2 (08:55→21:13)
[2017-12-22] MEDS: Lactobacillus Acidophilus 500 MU Cap PO SCH ×2 (08:55→17:22)
--- NOTE | 2017-12-22 10:05 | PN ---
DATE: ENDOCRINOLOGY FOLLOWUP NOTE LOCATION: In room 708, [facility]. SUBJECTIVE: This is a 77-year-old female with recent uncontrolled type 2 diabetes presenting here with congestive heart failure and since then improved clinically and metabolically as noted thereof. Her latest glucose levels have ranged from 104 to 124 and 169 mg/dL. LABORATORY DATA: Her latest chemistry showed BUN of 56, sodium of 140, potassium of 4.4, chloride of 104, CO2 of 14, glucose is 113 , and creatinine is 1.1. ASSESSMENT AND PLAN: So at this time, we will continue the same low-dose oral hypoglycemic therapy as given with glipizide given as 2.5 mg daily as ordered. We will continue her Tapazole given as 5 mg once daily for management of hyperthyroidism as noted. We will obtain serial thyroid studies and adjust her dose regimen accordingly. We will follow and advice . Lucia Corley MD
--- NOTE | 2017-12-22 10:19 | CP.PCM.PN ---
Subjective - Date & Time of Evaluation Date of Evaluation: 12/22/17 Time of Evaluation: 10:19 - Subjective Subjective: Podiatry Progress Note for Dr. Briseno 77 year old female seen at bedside this morning for multiple lysed blisters with some underlying infected wounds to both lower extremities. She admits to continued pain to both legs at sites of wounds. She states they are very tender to touch. Denies any acute overnight events. Is AAO x 3 and NAD at time of visit. Admits to keeping dressings in place since last visit. Denies any recent F/C/N/V/CP/SOB/D/posterior calf pain when squeezed. Objective - Vital Signs/Intake and Output Vital Signs (last 24 hours): Temp Pulse Resp BP Pulse Ox 97.6 F 60 20 140/64 99 12/22/17 08:04 12/22/17 08:49 12/22/17 08:04 12/22/17 08:49 12/22/17 08:04 - Medications Medications: Current Medications Acetaminophen (Tylenol 325mg Tab) 650 mg PO Q4 PRN PRN Reason: Pain, Mild (1-3) Bacitracin (Bacitracin Oint) 1 applic TOP DAILY [facility] Last Admin: 12/22/17 08:53 Dose: Not Given Clopidogrel Bisulfate (Plavix) 75 mg PO DAILY [facility] Last Admin: 12/22/17 08:49 Dose: 75 mg Docusate Sodium (Colace) 100 mg PO DAILY [facility] Last Admin: 12/22/17 08:51 Dose: 100 mg Enoxaparin Sodium (Lovenox) 30 mg SC DAILY [facility] PRN Reason: Protocol Last Admin: 12/22/17 08:52 Dose: 30 mg Famotidine (Pepcid) 20 mg PO DAILY [facility] Last Admin: 12/22/17 08:49 Dose: 20 mg Ferrous Sulfate (Feosol) 325 mg PO DAILY [facility] Last Admin: 12/22/17 08:51 Dose: 325 mg Glipizide (Glucotrol Xl) 2.5 mg PO DAILY [facility] Last Admin: 12/22/17 08:49 Dose: 2.5 mg Ciprofloxacin (Cipro 200mg/100ml D5w) 100 mls @ 100 mls/hr IVPB Q12@0500,1700 [facility] PRN Reason: Protocol Last Admin: 04/29/18 04:09 Dose: 100 mls/hr Ampicillin Sodium/Sulbactam (Sodium 1.5 gm/ Sodium Chloride) 100 mls @ 100 mls/ hr IVPB Q12 [facility] Last Admin: 12/22/17 08:55 Dose: 100 mls/hr Sodium Chloride (Sodium Chloride 0.9%) 1,000 mls @ 100 mls/hr IV .Q10H [facility] Stop: 12/22/17 17:21 Last Admin: 12/22/17 03:54 Dose: 100 mls/hr Isosorbide Mononitrate (Imdur Er) 30 mg PO DAILY [facility] Last Admin: 12/22/17 08:48 Dose: 30 mg Lactobacillus Acidophilus (Bacid Acidophilus) 1 cap PO BID [facility] Last Admin: 12/22/17 08:55 Dose: 1 cap Methimazole (Tapazole) 5 mg PO DAILY [facility] Last Admin: 12/22/17 08:49 Dose: 5 mg Metoprolol Tartrate (Lopressor) 25 mg PO Q12 [facility] Last Admin: 12/22/17 08:49 Dose: 25 mg Tramadol HCl (Ultram) 50 mg PO Q6 PRN PRN Reason: Pain, moderate (4-7) Last Admin: 12/22/17 06:27 Dose: 50 mg - Labs Labs: 12/20/17 06:30 12/22/17 06:30 - Constitutional Appears: Well, Non-toxic, No Acute Distress - Extremities Exam Additional comments: Dressings intact to B/L lower extremities Vasc: DP pulses weakly palpable 1/4 B/L. Non- palpable PT pulses secondary to edema, +2 pitting edema to bilateral LE, TG wnl, CFT < 4 sec to all digits. Neuro: Epicritic and protective sensation grossly intact B/L Derm: Multiple chronic, lanced bullae noted to bilateral legs. Open lysed blister site measuring 6cm x 6cm x 0.1cm to posterior leg mid calf. Additional open lysed blister site with superficial ulceration measuring 4cm x 1.5cm x 0.1cm noted to anteromedial left leg. Third ulceration site noted to dorsum of L foot with central necrotic hard eschar, measuring 4cm x 4.5cm x 0.2cm. Jennifer wound exhibits epithelization with healthy pink skin edges noted to dorsal left foot ulcer site. All sites (-) for purulence, malodor, fluctuance, probe to bone , tunneling or undermining. All blisters continue to weep serous fluid Ortho: Helene's sign negative B/L. All open blister sites are moderately tender to palpation - Neurological Exam Neurological Exam: Alert, Awake, Oriented x3 - Psychiatric Exam Psychiatric exam: Normal Affect, Normal Mood Assessment and Plan - Assessment and Plan (Free Text) Assessment: 77 year old female seen at bedside for multiple lysed, blisters with some underlying infected wound sites to bilateral lower extremities Plan: Patient seen and evaluated at bedside Discussed plan with attending Dr. Briseno Charts, labs, vitals reviewed - afebrile, absent leukocytosis Continue IV abx per ID Continue medical management per medicine Wound Cx- Right Leg: Proteus Penneri, Enterococcus Faecalis Venous duplex (-) for DVT Arterial Duplex - Diffuse atherosclerotic changes B/L Wounds scrubbed with soap solution and saline, dressed with alginate, ABD, DSD, CHAITANYA for light compression Patient strongly advised to leave dressings intact and to elevate legs as much as possible No plan for surgical intervention at this time Podiatry will continue to follow while patient in house
[2017-12-22] MEDS ORDERED: Magnesium Hydroxide Susp 30 ml UD PO ONE (11:56)
[2017-12-22] MEDS ORDERED: Magnesium Hydroxide Susp 30 ml UD PO PRN (12:40)
--- NOTE | 2017-12-22 22:59 | CP.PCM.PN ---
Subjective - Date & Time of Evaluation Date of Evaluation: 12/22/17 Time of Evaluation: 22:00 - Subjective Subjective: Above noted Objective - Vital Signs/Intake and Output Vital Signs (last 24 hours): Temp Pulse Resp BP Pulse Ox 97.0 F L 74 20 130/52 L 98 12/22/17 21:21 12/22/17 21:21 12/22/17 21:21 12/22/17 21:21 12/22/17 21:21 - Medications Medications: Current Medications Acetaminophen (Tylenol 325mg Tab) 650 mg PO Q4 PRN PRN Reason: Pain, Mild (1-3) Bacitracin (Bacitracin Oint) 1 applic TOP DAILY [facility] Last Admin: 12/22/17 08:53 Dose: Not Given Bisacodyl (Dulcolax) 10 mg [place] ONCE PRN PRN Reason: Constipation Clopidogrel Bisulfate (Plavix) 75 mg PO DAILY [facility] Last Admin: 12/22/17 08:49 Dose: 75 mg Docusate Sodium (Colace) 100 mg PO DAILY [facility] Last Admin: 12/22/17 08:51 Dose: 100 mg Enoxaparin Sodium (Lovenox) 30 mg SC DAILY [facility] PRN Reason: Protocol Last Admin: 12/22/17 08:52 Dose: 30 mg Famotidine (Pepcid) 20 mg PO DAILY [facility] Last Admin: 12/22/17 08:49 Dose: 20 mg Ferrous Sulfate (Feosol) 325 mg PO DAILY [facility] Last Admin: 12/22/17 08:51 Dose: 325 mg Glipizide (Glucotrol Xl) 2.5 mg PO DAILY [facility] Last Admin: 12/22/17 08:49 Dose: 2.5 mg Ciprofloxacin (Cipro 200mg/100ml D5w) 100 mls @ 100 mls/hr IVPB Q12@0500,1700 [facility] PRN Reason: Protocol Last Admin: 12/22/17 17:22 Dose: 100 mls/hr Ampicillin Sodium/Sulbactam (Sodium 1.5 gm/ Sodium Chloride) 100 mls @ 100 mls/ hr IVPB Q12 [facility] Last Admin: 12/22/17 21:13 Dose: 100 mls/hr Isosorbide Mononitrate (Imdur Er) 30 mg PO DAILY [facility] Last Admin: 12/22/17 08:48 Dose: 30 mg Lactobacillus Acidophilus (Bacid Acidophilus) 1 cap PO BID [facility] Last Admin: 12/22/17 17:22 Dose: 1 cap Magnesium Hydroxide (Milk Of Magnesia) 30 ml PO ONCE PRN PRN Reason: Constipation Methimazole (Tapazole) 5 mg PO DAILY [facility] Last Admin: 12/22/17 08:49 Dose: 5 mg Metoprolol Tartrate (Lopressor) 25 mg PO Q12 [facility] Last Admin: 12/22/17 21:14 Dose: 25 mg Tramadol HCl (Ultram) 50 mg PO Q6 PRN PRN Reason: Pain, moderate (4-7) Last Admin: 12/22/17 06:27 Dose: 50 mg - Labs Labs: 12/20/17 06:30 12/22/17 06:30 Assessment and Plan - Assessment and Plan (Free Text) Assessment: Leg pain?? Low ext edema with blisters- etiol? Venous vs Arterial? Infectious? Hx Serratia G- Leg elevation IV ABX ID Podiatry Surgery Neurology Physiatry Arterial studies MARY CT scan L-S area Prerenal?? ABBEY/ CKD Creat improved IVF Labs US Nephrology CHF Diastolic CAD stress thalium scarring ischemia?? cardiac cath refused?? Cardiology Hx COPD L Pleural effusion Pulmonary Hx Anemia ASA d/c as outpt due to dec Hbg Stool for OB ?? Hematology consult NIDDM Thyroid dx Endo
[2017-12-23] MEDS: Ciprofloxacin 200mg/100ml D5W 100 ML IVPB SCH (04:15)
[2017-12-23] MEDS: Bacitracin OINT 15GM TOP SCH (08:02)
[2017-12-23] MEDS: GlipiZIDE 2.5 mg SR Tab PO SCH (08:04)
[2017-12-23] MEDS: methIMAzole 5 MG TAB PO SCH (08:05)
[2017-12-23] MEDS: Enoxaparin 30 mg Syringe SC SCH (08:05)
[2017-12-23] MEDS: Lactobacillus Acidophilus 500 MU Cap PO SCH ×2 (08:05→17:16)
[2017-12-23] MEDS: AMPICILLIN IVPB SCH (08:06)
[2017-12-23] MEDS: SULBACTAM IVPB SCH (08:06)
--- NOTE | 2017-12-23 08:23 | CP.PCM.PN ---
Subjective - Date & Time of Evaluation Date of Evaluation: 12/23/17 Time of Evaluation: 08:22 - Subjective Subjective: Podiatry Progress Note for Dr. Briseno 77 year old female seen at bedside this morning for multiple lysed blisters with some underlying infected wounds to both lower extremities. Patient admits to continued pain to both legs at sites of wounds, and states they are very tender to touch. Patient denies any acute overnight events, and is AAO x 3 and NAD at time of visit. Admits to keeping dressings in place since last visit. Denies any recent F/C/N/V/CP/SOB/D/posterior calf pain when squeezed. Denies any further pedal complaints at this time Objective - Vital Signs/Intake and Output Vital Signs (last 24 hours): Temp Pulse Resp BP Pulse Ox 98.1 F 68 20 132/57 L 96 12/23/17 08:06 12/23/17 08:06 12/23/17 08:06 12/23/17 08:06 12/23/17 08:06 - Medications Medications: Current Medications Acetaminophen (Tylenol 325mg Tab) 650 mg PO Q4 PRN PRN Reason: Pain, Mild (1-3) Bacitracin (Bacitracin Oint) 1 applic TOP DAILY [facility] Last Admin: 12/23/17 08:02 Dose: Not Given Bisacodyl (Dulcolax) 10 mg [place] ONCE PRN PRN Reason: Constipation Clopidogrel Bisulfate (Plavix) 75 mg PO DAILY [facility] Last Admin: 12/23/17 08:04 Dose: 75 mg Docusate Sodium (Colace) 100 mg PO DAILY [facility] Last Admin: 12/23/17 08:04 Dose: 100 mg Enoxaparin Sodium (Lovenox) 30 mg SC DAILY [facility] PRN Reason: Protocol Last Admin: 12/23/17 08:05 Dose: 30 mg Famotidine (Pepcid) 20 mg PO DAILY [facility] Last Admin: 12/23/17 08:05 Dose: 20 mg Ferrous Sulfate (Feosol) 325 mg PO DAILY [facility] Last Admin: 12/23/17 08:04 Dose: 325 mg Glipizide (Glucotrol Xl) 2.5 mg PO DAILY [facility] Last Admin: 12/23/17 08:04 Dose: 2.5 mg Ciprofloxacin (Cipro 200mg/100ml D5w) 100 mls @ 100 mls/hr IVPB Q12@0500,1700 [facility] PRN Reason: Protocol Last Admin: 12/23/17 04:15 Dose: 100 mls/hr Ampicillin Sodium/Sulbactam (Sodium 1.5 gm/ Sodium Chloride) 100 mls @ 100 mls/ hr IVPB Q12 [facility] Last Admin: 12/23/17 08:06 Dose: 100 mls/hr Isosorbide Mononitrate (Imdur Er) 30 mg PO DAILY [facility] Last Admin: 12/23/17 08:04 Dose: 30 mg Lactobacillus Acidophilus (Bacid Acidophilus) 1 cap PO BID [facility] Last Admin: 12/23/17 08:05 Dose: 1 cap Magnesium Hydroxide (Milk Of Magnesia) 30 ml PO ONCE PRN PRN Reason: Constipation Methimazole (Tapazole) 5 mg PO DAILY [facility] Last Admin: 12/23/17 08:05 Dose: 5 mg Metoprolol Tartrate (Lopressor) 25 mg PO Q12 [facility] Last Admin: 12/23/17 08:04 Dose: 25 mg Tramadol HCl (Ultram) 50 mg PO Q6 PRN PRN Reason: Pain, moderate (4-7) Last Admin: 12/22/17 23:56 Dose: 50 mg - Labs Labs: 12/20/17 06:30 12/22/17 06:30 - Constitutional Appears: Well, Non-toxic, No Acute Distress - Extremities Exam Additional comments: Dressings intact to B/L lower extremities, serous strikethrough noted b/l Vasc: DP pulses weakly palpable 1/4 bilaterally, Non-palpable PT pulses secondary to edema, +2 pitting edema to bilateral LE, TG warm to warm, CFT < 4 sec to all digits. 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 Open lysed blister site measuring 6cm x 6cm x 0.1cm to posterior leg mid calf. Additional open lysed blister site with superficial ulceration measuring 4cm x 1.5cm x 0.1cm noted to anteromedial left leg. Third ulceration site noted to dorsum of L foot with central necrotic hard eschar, measuring 4cm x 4.5cm x 0.2cm. Jennifer wound exhibits epithelization with healthy pink skin edges noted to dorsal left foot ulcer site. All sites (-) for purulence, malodor, fluctuance, probe to bone , tunneling or undermining. All blisters continue to weep serous fluid Ortho: Helene's sign negative B/L. All open blister sites are tender to palpation. No other gross musculoskeletal deformities noted - Neurological Exam Neurological Exam: Alert, Awake, Oriented x3 - Psychiatric Exam Psychiatric exam: Normal Affect, Normal Mood Assessment and Plan - Assessment and Plan (Free Text) Assessment: 77 year old female seen at bedside this morning for multiple lysed blisters with underlying mildly infected superficial wounds. Plan: Patient seen and evaluated at bedside Discussed plan with attending Dr. Briseno Charts, labs, vitals reviewed Afebrile, absent leukocytosis Continue IV abx per ID Continue medical management per medicine Wound Cx- Right Leg: Proteus Penneri, Enterococcus Faecalis Venous duplex (-) for DVT Arterial Duplex: Diffuse atherosclerotic changes B/L Wounds scrubbed with soap solution and saline, dressed with alginate, ABD, DSD, CHAITANYA for light compression Patient strongly advised to leave dressings intact and to elevate legs as much as possible No plan for surgical intervention at this time Podiatry will continue to follow while patient in house
--- NOTE | 2017-12-23 08:37 | CP.PCM.PN ---
Subjective - Date & Time of Evaluation Date of Evaluation: 12/23/17 Time of Evaluation: 08:10 - Subjective Subjective: NO CHEST PAIN OR SOB Objective - Vital Signs/Intake and Output Vital Signs (last 24 hours): Temp Pulse Resp BP Pulse Ox 98.1 F 68 20 132/57 L 96 12/23/17 08:06 12/23/17 08:06 12/23/17 08:06 12/23/17 08:06 12/23/17 08:06 - Medications Medications: Current Medications Acetaminophen (Tylenol 325mg Tab) 650 mg PO Q4 PRN PRN Reason: Pain, Mild (1-3) Bacitracin (Bacitracin Oint) 1 applic TOP DAILY [facility] Last Admin: 12/23/17 08:02 Dose: Not Given Bisacodyl (Dulcolax) 10 mg [place] ONCE PRN PRN Reason: Constipation Clopidogrel Bisulfate (Plavix) 75 mg PO DAILY [facility] Last Admin: 12/23/17 08:04 Dose: 75 mg Docusate Sodium (Colace) 100 mg PO DAILY [facility] Last Admin: 12/23/17 08:04 Dose: 100 mg Enoxaparin Sodium (Lovenox) 30 mg SC DAILY [facility] PRN Reason: Protocol Last Admin: 12/23/17 08:05 Dose: 30 mg Famotidine (Pepcid) 20 mg PO DAILY [facility] Last Admin: 12/23/17 08:05 Dose: 20 mg Ferrous Sulfate (Feosol) 325 mg PO DAILY [facility] Last Admin: 12/23/17 08:04 Dose: 325 mg Glipizide (Glucotrol Xl) 2.5 mg PO DAILY [facility] Last Admin: 12/23/17 08:04 Dose: 2.5 mg Ciprofloxacin (Cipro 200mg/100ml D5w) 100 mls @ 100 mls/hr IVPB Q12@0500,1700 [facility] PRN Reason: Protocol Last Admin: 12/23/17 04:15 Dose: 100 mls/hr Ampicillin Sodium/Sulbactam (Sodium 1.5 gm/ Sodium Chloride) 100 mls @ 100 mls/ hr IVPB Q12 [facility] Last Admin: 12/23/17 08:06 Dose: 100 mls/hr Isosorbide Mononitrate (Imdur Er) 30 mg PO DAILY [facility] Last Admin: 12/23/17 08:04 Dose: 30 mg Lactobacillus Acidophilus (Bacid Acidophilus) 1 cap PO BID [facility] Last Admin: 12/23/17 08:05 Dose: 1 cap Magnesium Hydroxide (Milk Of Magnesia) 30 ml PO ONCE PRN PRN Reason: Constipation Methimazole (Tapazole) 5 mg PO DAILY [facility] Last Admin: 12/23/17 08:05 Dose: 5 mg Metoprolol Tartrate (Lopressor) 25 mg PO Q12 [facility] Last Admin: 12/23/17 08:04 Dose: 25 mg Tramadol HCl (Ultram) 50 mg PO Q6 PRN PRN Reason: Pain, moderate (4-7) Last Admin: 12/22/17 23:56 Dose: 50 mg - Labs Labs: 12/20/17 06:30 12/22/17 06:30 - Respiratory Exam Respiratory Exam: Clear to Ausculation Bilateral - Cardiovascular Exam Cardiovascular Exam: REGULAR RHYTHM - Additional Findings Additional findings: BUN/CR 56/1.1 12/22/17 NEPHROLOGY NOTE REVIEWED Assessment and Plan - Assessment and Plan (Free Text) Assessment: CAD CHRONIC DIASTOLIC CHF HYPERTENSION ABBEY-PRERENAL Plan: IV FLUIDS CONTINUED AT 100 ML/HR THROUGH YESTERDAY AND WILL BE DECREASED TO 50 ML/HR TODAY ORAL FLUID INTAKE ENCOURAGED CONTINUE METOPROLOL, NITRATES, CLOPIDOGREL, ANTIBIOTICS BMP IN AM
--- NOTE | 2017-12-23 08:55 | PN ---
DATE: 12/21/2017 ENDO FOLLOWUP NOTE LOCATION: Room [facility] SUBJECTIVE: This is a 77-year-old female presenting initially with congestive heart failure and lower extremity ulcerations and followed closely for metabolic management. Her glycemic levels are variable with new portions of her meals intake as noted by the nursing staff. Her glucose values today have improved and have ranged from 88 to 111 mg per dL. Her latest chemistry showed BUN of 67, sodium of 141, potassium of 4.6, chloride of 101, CO2 of 20, glucose of 104, and creatinine of 1.7. Her latest thyroid study showed T4 of 5.82 with the TSH of 3.30. ASSESSMENT The patient is a 77-year-old female who remains clinically and biochemically euthyroid with underlying Graves' disease and diffuse toxic goiter and is now being followed closely for metabolic management. She also has concomitant type 2 diabetes with optimal metabolic control and the low-dose oral hypoglycemic therapy is given. Her congestive heart failure was improved and has remained hemodynamically stable at this time. PLAN OF MANAGEMENT: We will continue the Tapazole given as 5 mg once daily in the morning as ordered. We will obtain serial thyroid studies and titrate her dose regimen accordingly. We will also continue the low-dose glipizide given as a very small oral hypoglycemic therapy in terms of dosing to just 2.5 mg once daily in the morning as ordered. We will titrate incrementally as indicated to optimize metabolic control. We will obtain serial chemistries and supplement accordingly as needed. We will follow and advise accordingly. Lucia Corley MD
--- NOTE | 2017-12-23 11:01 | CP.PCM.PN ---
Subjective - Date & Time of Evaluation Date of Evaluation: 12/23/17 Time of Evaluation: 10:58 - Subjective Subjective: Patient awake and conscious sitting up at the bedside No nausea or vomiting she reported eating well. No diarrhea. Objective - Vital Signs/Intake and Output Vital Signs (last 24 hours): Temp Pulse Resp BP Pulse Ox 98.1 F 68 20 132/57 L 96 12/23/17 08:06 12/23/17 08:06 12/23/17 08:06 12/23/17 08:06 12/23/17 08:06 - Medications Medications: Current Medications Acetaminophen (Tylenol 325mg Tab) 650 mg PO Q4 PRN PRN Reason: Pain, Mild (1-3) Bacitracin (Bacitracin Oint) 1 applic TOP DAILY [facility] Last Admin: 12/23/17 08:02 Dose: Not Given Bisacodyl (Dulcolax) 10 mg [place] ONCE PRN PRN Reason: Constipation Clopidogrel Bisulfate (Plavix) 75 mg PO DAILY [facility] Last Admin: 12/23/17 08:04 Dose: 75 mg Docusate Sodium (Colace) 100 mg PO DAILY [facility] Last Admin: 12/23/17 08:04 Dose: 100 mg Enoxaparin Sodium (Lovenox) 30 mg SC DAILY [facility] PRN Reason: Protocol Last Admin: 12/23/17 08:05 Dose: 30 mg Famotidine (Pepcid) 20 mg PO DAILY [facility] Last Admin: 12/23/17 08:05 Dose: 20 mg Ferrous Sulfate (Feosol) 325 mg PO DAILY [facility] Last Admin: 12/23/17 08:04 Dose: 325 mg Glipizide (Glucotrol Xl) 2.5 mg PO DAILY [facility] Last Admin: 12/23/17 08:04 Dose: 2.5 mg Ciprofloxacin (Cipro 200mg/100ml D5w) 100 mls @ 100 mls/hr IVPB Q12@0500,1700 [facility] PRN Reason: Protocol Last Admin: 12/23/17 04:15 Dose: 100 mls/hr Ampicillin Sodium/Sulbactam (Sodium 1.5 gm/ Sodium Chloride) 100 mls @ 100 mls/ hr IVPB Q12 [facility] Last Admin: 12/23/17 08:06 Dose: 100 mls/hr Isosorbide Mononitrate (Imdur Er) 30 mg PO DAILY [facility] Last Admin: 12/23/17 08:04 Dose: 30 mg Lactobacillus Acidophilus (Bacid Acidophilus) 1 cap PO BID [facility] Last Admin: 12/23/17 08:05 Dose: 1 cap Magnesium Hydroxide (Milk Of Magnesia) 30 ml PO ONCE PRN PRN Reason: Constipation Methimazole (Tapazole) 5 mg PO DAILY [facility] Last Admin: 12/23/17 08:05 Dose: 5 mg Metoprolol Tartrate (Lopressor) 25 mg PO Q12 [facility] Last Admin: 12/23/17 08:04 Dose: 25 mg Tramadol HCl (Ultram) 50 mg PO Q6 PRN PRN Reason: Pain, moderate (4-7) Last Admin: 12/22/17 23:56 Dose: 50 mg - Labs Labs: 12/20/17 06:30 12/22/17 06:30 - Constitutional Appears: No Acute Distress - ENT Exam ENT Exam: Mucous Membranes Moist - Neck Exam Neck Exam: absent: Lymphadenopathy - Respiratory Exam Respiratory Exam: NORMAL BREATHING PATTERN. absent: Chest Wall Tenderness - Cardiovascular Exam Cardiovascular Exam: absent: Gallop, JVD, Rubs - GI/Abdominal Exam GI & Abdominal Exam: Soft - Extremities Exam Extremities Exam: Pedal Edema. absent: Calf Tenderness - Back Exam Back Exam: absent: CVA tenderness (L), CVA tenderness (R) - Neurological Exam Neurological Exam: Alert - Psychiatric Exam Psychiatric exam: Normal Affect - Skin Skin Exam: absent: Cyanosis Assessment and Plan - Assessment and Plan (Free Text) Assessment: Acute kidney injury and improving. Serum creatinine coming down. Lower extremity covered and wrapped therefore was very hard to estimate of the edema of the lower extremity. Continue monitoring Repeat BMP in the morning. The rest of the medical problem on antibiotics as per primary team, Considering renal dosed with antibiotics.
--- NOTE | 2017-12-23 11:07 | CP.PCM.PN ---
Subjective - Date & Time of Evaluation Date of Evaluation: 12/23/17 Time of Evaluation: 11:02 - Subjective Subjective: The patient is currently sitting on the edge of the bed and appears comfortable. As per the nursing staff she has maintained her lower extremity dressings in place overnight. She offers no complaints of cough or shortness of breath. Breath sounds are better heard in the left base than they had been previously. Rare scattered sonorous rhonchi without any bronchial breathing or egophony. No audible wheezing. Rare dry basal rales. Lower studies are presently dressed but there is once again less edema superior to the dressings bilaterally. No cyanosis. Nephrology consultation has been reviewed and he appears to have been some ABBEY with prerenal azotemia. quarry worker has been requested to discuss post discharge home environment. Objective - Vital Signs/Intake and Output Vital Signs (last 24 hours): Temp Pulse Resp BP Pulse Ox 98.1 F 68 20 132/57 L 96 12/23/17 08:06 12/23/17 08:06 12/23/17 08:06 12/23/17 08:06 12/23/17 08:06 - Medications Medications: Current Medications Acetaminophen (Tylenol 325mg Tab) 650 mg PO Q4 PRN PRN Reason: Pain, Mild (1-3) Bacitracin (Bacitracin Oint) 1 applic TOP DAILY [facility] Last Admin: 12/23/17 08:02 Dose: Not Given Bisacodyl (Dulcolax) 10 mg [place] ONCE PRN PRN Reason: Constipation Clopidogrel Bisulfate (Plavix) 75 mg PO DAILY [facility] Last Admin: 12/23/17 08:04 Dose: 75 mg Docusate Sodium (Colace) 100 mg PO DAILY [facility] Last Admin: 12/23/17 08:04 Dose: 100 mg Enoxaparin Sodium (Lovenox) 30 mg SC DAILY [facility] PRN Reason: Protocol Last Admin: 12/23/17 08:05 Dose: 30 mg Famotidine (Pepcid) 20 mg PO DAILY [facility] Last Admin: 12/23/17 08:05 Dose: 20 mg Ferrous Sulfate (Feosol) 325 mg PO DAILY [facility] Last Admin: 12/23/17 08:04 Dose: 325 mg Glipizide (Glucotrol Xl) 2.5 mg PO DAILY [facility] Last Admin: 12/23/17 08:04 Dose: 2.5 mg Ciprofloxacin (Cipro 200mg/100ml D5w) 100 mls @ 100 mls/hr IVPB Q12@0500,1700 [facility] PRN Reason: Protocol Last Admin: 12/23/17 04:15 Dose: 100 mls/hr Ampicillin Sodium/Sulbactam (Sodium 1.5 gm/ Sodium Chloride) 100 mls @ 100 mls/ hr IVPB Q12 [facility] Last Admin: 12/23/17 08:06 Dose: 100 mls/hr Isosorbide Mononitrate (Imdur Er) 30 mg PO DAILY [facility] Last Admin: 12/23/17 08:04 Dose: 30 mg Lactobacillus Acidophilus (Bacid Acidophilus) 1 cap PO BID [facility] Last Admin: 12/23/17 08:05 Dose: 1 cap Magnesium Hydroxide (Milk Of Magnesia) 30 ml PO ONCE PRN PRN Reason: Constipation Methimazole (Tapazole) 5 mg PO DAILY [facility] Last Admin: 12/23/17 08:05 Dose: 5 mg Metoprolol Tartrate (Lopressor) 25 mg PO Q12 [facility] Last Admin: 12/23/17 08:04 Dose: 25 mg Tramadol HCl (Ultram) 50 mg PO Q6 PRN PRN Reason: Pain, moderate (4-7) Last Admin: 12/22/17 23:56 Dose: 50 mg - Labs Labs: 12/20/17 06:30 12/22/17 06:30
[2017-12-23] MEDS: Sodium Chloride 0.9% 1,000 ML IV SCH (15:00)
--- NOTE | 2017-12-23 17:22 | CP.PCM.PN ---
Subjective - Date & Time of Evaluation Date of Evaluation: 12/23/17 Time of Evaluation: 17:20 - Subjective Subjective: I D NOTE HAVE D/MARY IV ANTIBIOTICS SHOULD BE ON EXTENDED PO ANTIBIOTICS C LESS TOXICITYRENAL Objective - Vital Signs/Intake and Output Vital Signs (last 24 hours): Temp Pulse Resp BP Pulse Ox 97.0 F L 73 20 131/59 L 99 12/23/17 17:11 12/23/17 17:11 12/23/17 17:11 12/23/17 17:11 12/23/17 17:11 - Medications Medications: Current Medications Acetaminophen (Tylenol 325mg Tab) 650 mg PO Q4 PRN PRN Reason: Pain, Mild (1-3) Bacitracin (Bacitracin Oint) 1 applic TOP DAILY [facility] Last Admin: 12/23/17 08:02 Dose: Not Given Bisacodyl (Dulcolax) 10 mg [place] ONCE PRN PRN Reason: Constipation Ciprofloxacin (Cipro) 250 mg PO Q12 [facility] PRN Reason: Protocol Clopidogrel Bisulfate (Plavix) 75 mg PO DAILY [facility] Last Admin: 12/23/17 08:04 Dose: 75 mg Docusate Sodium (Colace) 100 mg PO DAILY [facility] Last Admin: 12/23/17 08:04 Dose: 100 mg Enoxaparin Sodium (Lovenox) 30 mg SC DAILY [facility] PRN Reason: Protocol Last Admin: 12/23/17 08:05 Dose: 30 mg Famotidine (Pepcid) 20 mg PO DAILY [facility] Last Admin: 12/23/17 08:05 Dose: 20 mg Ferrous Sulfate (Feosol) 325 mg PO DAILY [facility] Last Admin: 12/23/17 08:04 Dose: 325 mg Glipizide (Glucotrol Xl) 2.5 mg PO DAILY [facility] Last Admin: 12/23/17 08:04 Dose: 2.5 mg Sodium Chloride (Sodium Chloride 0.9%) 1,000 mls @ 50 mls/hr IV .Q20H [facility] Stop: 12/24/17 14:19 Isosorbide Mononitrate (Imdur Er) 30 mg PO DAILY [facility] Last Admin: 12/23/17 08:04 Dose: 30 mg Lactobacillus Acidophilus (Bacid Acidophilus) 1 cap PO BID [facility] Last Admin: 12/23/17 17:16 Dose: 1 cap Linezolid (Zyvox) 600 mg PO Q12 [facility] PRN Reason: Protocol Magnesium Hydroxide (Milk Of Magnesia) 30 ml PO ONCE PRN PRN Reason: Constipation Methimazole (Tapazole) 5 mg PO DAILY [facility] Last Admin: 12/23/17 08:05 Dose: 5 mg Metoprolol Tartrate (Lopressor) 25 mg PO Q12 [facility] Last Admin: 12/23/17 08:04 Dose: 25 mg Tramadol HCl (Ultram) 50 mg PO Q6 PRN PRN Reason: Pain, moderate (4-7) Last Admin: 12/23/17 15:34 Dose: 50 mg - Labs Labs: 12/20/17 06:30 12/22/17 06:30
--- NOTE | 2017-12-23 19:12 | PN ---
ENDOCRINOLOGY FOLLOWUP NOTE DATE: LOCATION: Room 708. SUBJECTIVE: This is a 77-year-old female presenting here with congestive heart failure and is now improving clinically and hemodynamically as noted thereof. Her oral intake however, remains quite variable as per the nursing staff. Her glucose values have ranged today from 143 to 157 and 214 mg/dL. Her latest chemistry showed a BUN of 56, sodium 140, potassium 4.4, chloride 104, CO2 is 14, glucose is 113 and creatinine 1.1. So at this time, we will continue the low-dose oral hypoglycemic therapy given as glipizide at 2.5 mg once daily in the morning as ordered. We will continue also the Tapazole given as 5 mg once daily as ordered. She has ongoing management for hyperthyroidism and has been clinically and biochemically euthyroid at this time with the latest Tapazole given as 5 mg once daily in the morning as ordered. We will obtain serial chemistries and supplement accordingly needed. We will follow. Lucia Corley MD
--- NOTE | 2017-12-23 20:55 | CP.PCM.PN ---
Subjective - Date & Time of Evaluation Date of Evaluation: 12/08/17 Time of Evaluation: 22:22 - Subjective Subjective: Refusing all tests! Explained risks Objective - Vital Signs/Intake and Output Vital Signs (last 24 hours): Temp Pulse Resp BP Pulse Ox 97.0 F L 73 20 131/59 L 99 12/23/17 17:11 12/23/17 17:11 12/23/17 17:11 12/23/17 17:11 12/23/17 17:11 - Medications Medications: Current Medications Acetaminophen (Tylenol 325mg Tab) 650 mg PO Q4 PRN PRN Reason: Pain, Mild (1-3) Bacitracin (Bacitracin Oint) 1 applic TOP DAILY [facility] Last Admin: 12/23/17 08:02 Dose: Not Given Bisacodyl (Dulcolax) 10 mg [place] ONCE PRN PRN Reason: Constipation Ciprofloxacin (Cipro) 250 mg PO Q12 [facility] PRN Reason: Protocol Clopidogrel Bisulfate (Plavix) 75 mg PO DAILY [facility] Last Admin: 12/23/17 08:04 Dose: 75 mg Docusate Sodium (Colace) 100 mg PO DAILY [facility] Last Admin: 12/23/17 08:04 Dose: 100 mg Enoxaparin Sodium (Lovenox) 30 mg SC DAILY [facility] PRN Reason: Protocol Last Admin: 12/23/17 08:05 Dose: 30 mg Famotidine (Pepcid) 20 mg PO DAILY [facility] Last Admin: 12/23/17 08:05 Dose: 20 mg Ferrous Sulfate (Feosol) 325 mg PO DAILY [facility] Last Admin: 12/23/17 08:04 Dose: 325 mg Glipizide (Glucotrol Xl) 2.5 mg PO DAILY [facility] Last Admin: 12/23/17 08:04 Dose: 2.5 mg Sodium Chloride (Sodium Chloride 0.9%) 1,000 mls @ 50 mls/hr IV .Q20H [facility] Stop: 12/24/17 14:19 Last Admin: 12/23/17 15:00 Dose: 50 mls/hr Isosorbide Mononitrate (Imdur Er) 30 mg PO DAILY [facility] Last Admin: 12/23/17 08:04 Dose: 30 mg Lactobacillus Acidophilus (Bacid Acidophilus) 1 cap PO BID [facility] Last Admin: 12/23/17 17:16 Dose: 1 cap Linezolid (Zyvox) 600 mg PO Q12 [facility] PRN Reason: Protocol Magnesium Hydroxide (Milk Of Magnesia) 30 ml PO ONCE PRN PRN Reason: Constipation Methimazole (Tapazole) 5 mg PO DAILY [facility] Last Admin: 12/23/17 08:05 Dose: 5 mg Metoprolol Tartrate (Lopressor) 25 mg PO Q12 [facility] Last Admin: 12/23/17 08:04 Dose: 25 mg Tramadol HCl (Ultram) 50 mg PO Q6 PRN PRN Reason: Pain, moderate (4-7) Last Admin: 12/23/17 15:34 Dose: 50 mg - Labs Labs: 12/20/17 06:30 12/22/17 06:30 - Respiratory Exam Respiratory Exam: NORMAL BREATHING PATTERN - Cardiovascular Exam Cardiovascular Exam: REGULAR RHYTHM - GI/Abdominal Exam GI & Abdominal Exam: Normal Bowel Sounds Assessment and Plan - Assessment and Plan (Free Text) Assessment: Leg pain?? Low ext edema with blisters- etiol? Venous vs Arterial? Infectious? Hx Serratia G- Leg elevation IV ABX ID Podiatry Surgery Neurology Physiatry Arterial studies MARY CT scan L-S area Prerenal?? ABBEY/ CKD Creat improved IVF Labs US Nephrology CHF Diastolic CAD stress thalium scarring ischemia?? cardiac cath refused?? Cardiology Hx COPD L Pleural effusion Pulmonary Hx Anemia ASA d/c as outpt due to dec Hbg Stool for OB ?? Hematology consult NIDDM Thyroid dx Endo
[2017-12-24] MEDS: Sodium Chloride 0.9% 1,000 ML IV SCH (05:29)
[2017-12-24 06:39] LABS: BLOOD UREA NITROGEN 36 mg/dl (7-17); CALCIUM 9.2 mg/dL (8.4-10.2); GFR AFRICAN-AMERICAN > 60; GFR NON-AFRICAN AMERICAN 53
[2017-12-24] MEDS: GlipiZIDE 2.5 mg SR Tab PO SCH (08:00)
--- NOTE | 2017-12-24 08:38 | CP.PCM.PN ---
Subjective - Date & Time of Evaluation Date of Evaluation: 12/24/17 Time of Evaluation: 08:35 - Subjective Subjective: Podiatry Progress Note for Dr. Briseno 77 year old female seen at bedside this morning for multiple lysed blisters with some underlying infected wounds to both lower extremities. Patient is seen in her bed in a dependent position at the time of the visit. Patient is AAOx3 and in NAD. Patient admits to continued pain to both legs at sites of wounds, and states they are very tender to touch. Denies any recent F/C/N/V/CP/SOB/D/ posterior calf pain when squeezed. Denies any further pedal complaints at this time Objective - Vital Signs/Intake and Output Vital Signs (last 24 hours): Temp Pulse Resp BP Pulse Ox 97.0 F L 64 20 144/69 96 12/23/17 21:10 12/23/17 22:50 12/23/17 21:10 12/23/17 22:50 12/23/17 21:10 - Medications Medications: Current Medications Acetaminophen (Tylenol 325mg Tab) 650 mg PO Q4 PRN PRN Reason: Pain, Mild (1-3) Bacitracin (Bacitracin Oint) 1 applic TOP DAILY [facility] Last Admin: 12/23/17 08:02 Dose: Not Given Bisacodyl (Dulcolax) 10 mg [place] ONCE PRN PRN Reason: Constipation Ciprofloxacin (Cipro) 250 mg PO Q12 [facility] PRN Reason: Protocol Last Admin: 12/23/17 22:50 Dose: 250 mg Clopidogrel Bisulfate (Plavix) 75 mg PO DAILY [facility] Last Admin: 12/23/17 08:04 Dose: 75 mg Docusate Sodium (Colace) 100 mg PO DAILY [facility] Last Admin: 12/23/17 08:04 Dose: 100 mg Enoxaparin Sodium (Lovenox) 30 mg SC DAILY [facility] PRN Reason: Protocol Last Admin: 12/23/17 08:05 Dose: 30 mg Famotidine (Pepcid) 20 mg PO DAILY [facility] Last Admin: 12/23/17 08:05 Dose: 20 mg Ferrous Sulfate (Feosol) 325 mg PO DAILY [facility] Last Admin: 12/23/17 08:04 Dose: 325 mg Glipizide (Glucotrol Xl) 2.5 mg PO DAILY [facility] Last Admin: 12/23/17 08:04 Dose: 2.5 mg Sodium Chloride (Sodium Chloride 0.9%) 1,000 mls @ 50 mls/hr IV .Q20H [facility] Stop: 12/24/17 14:19 Last Admin: 12/24/17 05:29 Dose: 50 mls/hr Isosorbide Mononitrate (Imdur Er) 30 mg PO DAILY [facility] Last Admin: 12/23/17 08:04 Dose: 30 mg Lactobacillus Acidophilus (Bacid Acidophilus) 1 cap PO BID [facility] Last Admin: 12/23/17 17:16 Dose: 1 cap Linezolid (Zyvox) 600 mg PO Q12 [facility] PRN Reason: Protocol Last Admin: 12/23/17 22:51 Dose: 600 mg Magnesium Hydroxide (Milk Of Magnesia) 30 ml PO ONCE PRN PRN Reason: Constipation Methimazole (Tapazole) 5 mg PO DAILY [facility] Last Admin: 12/23/17 08:05 Dose: 5 mg Metoprolol Tartrate (Lopressor) 25 mg PO Q12 [facility] Last Admin: 12/23/17 22:50 Dose: 25 mg Tramadol HCl (Ultram) 50 mg PO Q6 PRN PRN Reason: Pain, moderate (4-7) Last Admin: 12/23/17 15:34 Dose: 50 mg - Labs Labs: 12/20/17 06:30 12/24/17 05:30 - Constitutional Appears: Well, Non-toxic, No Acute Distress - Extremities Exam Additional comments: Dressings intact to B/L lower extremities, serous strikethrough noted b/l Vasc: DP pulses weakly palpable 1/4 bilaterally, Non-palpable PT pulses secondary to edema, +2 pitting edema to bilateral LE, TG warm to warm, CFT < 4 sec to all digits. 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 Open lysed blister site measuring 6cm x 6cm x 0.1cm to posterior leg mid calf. Additional open lysed blister site with superficial ulceration measuring 4cm x 1.5cm x 0.1cm noted to anteromedial left leg. Third ulceration site noted to dorsum of L foot with central necrotic hard eschar, measuring 4cm x 4.5cm x 0.2cm. Jennifer wound exhibits epithelization with healthy pink skin edges noted to dorsal left foot ulcer site. All sites (-) for purulence, malodor, fluctuance, probe to bone , tunneling or undermining. All blisters continue to weep serous fluid Ortho: Helene's sign negative B/L. All open blister sites are tender to palpation. No other gross musculoskeletal deformities noted - Neurological Exam Neurological Exam: Alert, Awake, Oriented x3 - Psychiatric Exam Psychiatric exam: Normal Affect, Normal Mood Assessment and Plan - Assessment and Plan (Free Text) Assessment: 77 year old female seen at bedside this morning for multiple lysed blisters with underlying mildly infected superficial wounds Plan: Patient seen and evaluated at bedside with attending Dr. Briseno Charts, labs, vitals reviewed Afebrile, absent leukocytosis Continue IV abx per ID Continue medical management per medicine Wound Cx- Right Leg: Proteus Penneri, Enterococcus Faecalis Venous duplex (-) for DVT Arterial Duplex: Diffuse atherosclerotic changes B/L Wounds cleaned with saline, dressed with alginate, ABD, DSD, CHAITANYA for light compression Patient strongly advised to leave dressings intact and to elevate legs as much as possible No plan for surgical intervention at this time Podiatry will continue to follow while patient in house
[2017-12-24] MEDS: Enoxaparin 30 mg Syringe SC SCH (09:01)
[2017-12-24] MEDS: methIMAzole 5 MG TAB PO SCH (09:03)
[2017-12-24] MEDS: Bacitracin OINT 15GM TOP SCH (09:04)
[2017-12-24] MEDS: Lactobacillus Acidophilus 500 MU Cap PO SCH ×2 (09:07→17:01)
--- NOTE | 2017-12-24 11:15 | CP.PCM.PN ---
Subjective - Date & Time of Evaluation Date of Evaluation: 12/24/17 Time of Evaluation: 11:13 - Subjective Subjective: Patient appeared to be stable no nausea no vomiting no chest pain Objective - Vital Signs/Intake and Output Vital Signs (last 24 hours): Temp Pulse Resp BP Pulse Ox 96.3 F L 69 20 140/84 99 12/24/17 09:06 12/24/17 09:06 12/24/17 09:06 12/24/17 09:06 12/24/17 09:06 - Medications Medications: Current Medications Acetaminophen (Tylenol 325mg Tab) 650 mg PO Q4 PRN PRN Reason: Pain, Mild (1-3) Bacitracin (Bacitracin Oint) 1 applic TOP DAILY [facility] Last Admin: 12/24/17 09:04 Dose: 1 applic Bisacodyl (Dulcolax) 10 mg [place] ONCE PRN PRN Reason: Constipation Ciprofloxacin (Cipro) 250 mg PO Q12 [facility] PRN Reason: Protocol Last Admin: 12/24/17 09:03 Dose: 250 mg Clopidogrel Bisulfate (Plavix) 75 mg PO DAILY [facility] Last Admin: 12/24/17 09:02 Dose: 75 mg Docusate Sodium (Colace) 100 mg PO DAILY [facility] Last Admin: 12/24/17 09:03 Dose: 100 mg Enoxaparin Sodium (Lovenox) 30 mg SC DAILY [facility] PRN Reason: Protocol Last Admin: 12/24/17 09:01 Dose: 30 mg Famotidine (Pepcid) 20 mg PO DAILY [facility] Last Admin: 12/24/17 09:03 Dose: 20 mg Ferrous Sulfate (Feosol) 325 mg PO DAILY [facility] Last Admin: 12/24/17 09:02 Dose: 325 mg Glipizide (Glucotrol Xl) 2.5 mg PO DAILY [facility] Last Admin: 12/24/17 08:00 Dose: 2.5 mg Isosorbide Mononitrate (Imdur Er) 30 mg PO DAILY [facility] Last Admin: 12/24/17 09:03 Dose: 30 mg Lactobacillus Acidophilus (Bacid Acidophilus) 1 cap PO BID [facility] Last Admin: 12/24/17 09:07 Dose: 1 cap Linezolid (Zyvox) 600 mg PO Q12 [facility] PRN Reason: Protocol Last Admin: 12/24/17 09:02 Dose: 600 mg Magnesium Hydroxide (Milk Of Magnesia) 30 ml PO ONCE PRN PRN Reason: Constipation Methimazole (Tapazole) 5 mg PO DAILY [facility] Last Admin: 12/24/17 09:03 Dose: 5 mg Metoprolol Tartrate (Lopressor) 25 mg PO Q12 [facility] Last Admin: 12/24/17 09:02 Dose: 25 mg Tramadol HCl (Ultram) 50 mg PO Q6 PRN PRN Reason: Pain, moderate (4-7) Last Admin: 12/23/17 15:34 Dose: 50 mg - Labs Labs: 12/20/17 06:30 12/24/17 05:30 - Constitutional Appears: No Acute Distress - ENT Exam ENT Exam: Mucous Membranes Moist - Respiratory Exam Respiratory Exam: absent: Chest Wall Tenderness - Cardiovascular Exam Cardiovascular Exam: absent: Gallop, JVD, Rubs - GI/Abdominal Exam GI & Abdominal Exam: Soft, Normal Bowel Sounds - Extremities Exam Extremities Exam: absent: Calf Tenderness - Back Exam Back Exam: absent: CVA tenderness (L), CVA tenderness (R) - Neurological Exam Neurological Exam: Alert - Psychiatric Exam Psychiatric exam: Normal Affect - Skin Skin Exam: absent: Cyanosis Assessment and Plan - Assessment and Plan (Free Text) Assessment: Serum creatinine came down 1.0. Patient recovered from acute kidney injury. Patient has leg edema I suggest to give Lasix 20 mg daily at least on monitor .
[2017-12-24 11:42] LABS: HEMOGLOBIN 9.6 g/dL (12.0-16.0); MEAN CORPUSCULAR HEMOGLOBIN 26.4 pg (27.0-31.0); MEAN CORPUSCULAR HGB CONC 31.1 g/dL (33.0-37.0); RBC 3.63 Mil/uL (3.80-5.20); WHITE BLOOD COUNT 7.5 K/uL (4.8-10.8)
--- NOTE | 2017-12-24 13:25 | CP.PCM.PN ---
Subjective - Date & Time of Evaluation Date of Evaluation: 12/24/17 Time of Evaluation: 13:15 - Subjective Subjective: No complaints. Objective - Vital Signs/Intake and Output Vital Signs (last 24 hours): Temp Pulse Resp BP Pulse Ox 96.3 F L 69 20 140/84 99 12/24/17 09:06 12/24/17 09:06 12/24/17 09:06 12/24/17 09:06 12/24/17 09:06 - Medications Medications: Current Medications Acetaminophen (Tylenol 325mg Tab) 650 mg PO Q4 PRN PRN Reason: Pain, Mild (1-3) Bacitracin (Bacitracin Oint) 1 applic TOP DAILY [facility] Last Admin: 12/24/17 09:04 Dose: 1 applic Bisacodyl (Dulcolax) 10 mg [place] ONCE PRN PRN Reason: Constipation Ciprofloxacin (Cipro) 250 mg PO Q12 [facility] PRN Reason: Protocol Last Admin: 12/24/17 09:03 Dose: 250 mg Clopidogrel Bisulfate (Plavix) 75 mg PO DAILY [facility] Last Admin: 12/24/17 09:02 Dose: 75 mg Docusate Sodium (Colace) 100 mg PO DAILY [facility] Last Admin: 12/24/17 09:03 Dose: 100 mg Enoxaparin Sodium (Lovenox) 30 mg SC DAILY [facility] PRN Reason: Protocol Last Admin: 12/24/17 09:01 Dose: 30 mg Famotidine (Pepcid) 20 mg PO DAILY [facility] Last Admin: 12/24/17 09:03 Dose: 20 mg Ferrous Sulfate (Feosol) 325 mg PO DAILY [facility] Last Admin: 12/24/17 09:02 Dose: 325 mg Glipizide (Glucotrol Xl) 2.5 mg PO DAILY [facility] Last Admin: 12/24/17 08:00 Dose: 2.5 mg Isosorbide Mononitrate (Imdur Er) 30 mg PO DAILY [facility] Last Admin: 12/24/17 09:03 Dose: 30 mg Lactobacillus Acidophilus (Bacid Acidophilus) 1 cap PO BID [facility] Last Admin: 12/24/17 09:07 Dose: 1 cap Linezolid (Zyvox) 600 mg PO Q12 [facility] PRN Reason: Protocol Last Admin: 12/24/17 09:02 Dose: 600 mg Magnesium Hydroxide (Milk Of Magnesia) 30 ml PO ONCE PRN PRN Reason: Constipation Methimazole (Tapazole) 5 mg PO DAILY [facility] Last Admin: 12/24/17 09:03 Dose: 5 mg Metoprolol Tartrate (Lopressor) 25 mg PO Q12 [facility] Last Admin: 12/24/17 09:02 Dose: 25 mg Tramadol HCl (Ultram) 50 mg PO Q6 PRN PRN Reason: Pain, moderate (4-7) Last Admin: 12/24/17 11:19 Dose: 50 mg - Labs Labs: 12/24/17 11:40 12/24/17 05:30 - Head Exam Head Exam: ATRAUMATIC - Eye Exam Eye Exam: Normal appearance - ENT Exam ENT Exam: Mucous Membranes Dry - Respiratory Exam Respiratory Exam: NORMAL BREATHING PATTERN - Cardiovascular Exam Cardiovascular Exam: +S1, +S2 - GI/Abdominal Exam GI & Abdominal Exam: Normal Bowel Sounds - Extremities Exam Extremities Exam: Pedal Edema Assessment and Plan (1) Anemia Assessment & Plan: H/H improving on PO iron and intermittent Procrit declined iron stores; likely chronic intermittent GI blood loss anemia of CKD Status: Acute
--- NOTE | 2017-12-24 15:26 | PN ---
DATE: 12/24/2017 ENDO FOLLOWUP NOTE LOCATION: Room 708. SUBJECTIVE: This is a 77-year-old female with known history of type 2 diabetes and hyperthyroidism, presenting here with congestive heart failure and now being followed closely for metabolic management. She is undergoing physical therapy for recent deconditioning and lower extremity neuropathic ulcerations as noted. Her oral intake remains quite variable as per the nursing staff and her latest glucose levels today have ranged from 109-140 and 157 mg/dL. Her latest chemistry showed BUN of 36, sodium of 139, potassium 4.5, chloride of 107, CO2 of 21, glucose of 92, and creatinine of 1. So at this time, we will continue the low-dose oral hypoglycemic therapy with glipizide given as 2.5 mg once daily in the morning as ordered. We will continue the methimazole given as 5 mg once daily for management of subclinical hyperthyroidism as noted thereof. We will obtain serial chemistries and supplement accordingly as needed. We will follow. Lucia Corley MD
--- NOTE | 2017-12-24 19:43 | CP.PCM.PN ---
Subjective - Date & Time of Evaluation Date of Evaluation: 12/24/17 Time of Evaluation: 22:22 - Subjective Subjective: Above noted Objective - Vital Signs/Intake and Output Vital Signs (last 24 hours): Temp Pulse Resp BP Pulse Ox 97.2 F L 54 L 20 113/51 L 99 12/24/17 15:55 12/24/17 15:55 12/24/17 15:55 12/24/17 15:55 12/24/17 15:55 - Medications Medications: Current Medications Acetaminophen (Tylenol 325mg Tab) 650 mg PO Q4 PRN PRN Reason: Pain, Mild (1-3) Bacitracin (Bacitracin Oint) 1 applic TOP DAILY [facility] Last Admin: 12/24/17 09:04 Dose: 1 applic Bisacodyl (Dulcolax) 10 mg [place] ONCE PRN PRN Reason: Constipation Ciprofloxacin (Cipro) 250 mg PO Q12 [facility] PRN Reason: Protocol Last Admin: 12/24/17 09:03 Dose: 250 mg Clopidogrel Bisulfate (Plavix) 75 mg PO DAILY [facility] Last Admin: 12/24/17 09:02 Dose: 75 mg Docusate Sodium (Colace) 100 mg PO DAILY [facility] Last Admin: 12/24/17 09:03 Dose: 100 mg Enoxaparin Sodium (Lovenox) 30 mg SC DAILY [facility] PRN Reason: Protocol Last Admin: 12/24/17 09:01 Dose: 30 mg Famotidine (Pepcid) 20 mg PO DAILY [facility] Last Admin: 12/24/17 09:03 Dose: 20 mg Ferrous Sulfate (Feosol) 325 mg PO DAILY [facility] Last Admin: 12/24/17 09:02 Dose: 325 mg Glipizide (Glucotrol Xl) 2.5 mg PO DAILY [facility] Last Admin: 12/24/17 08:00 Dose: 2.5 mg Isosorbide Mononitrate (Imdur Er) 30 mg PO DAILY [facility] Last Admin: 12/24/17 09:03 Dose: 30 mg Lactobacillus Acidophilus (Bacid Acidophilus) 1 cap PO BID [facility] Last Admin: 12/24/17 17:01 Dose: 1 cap Linezolid (Zyvox) 600 mg PO Q12 [facility] PRN Reason: Protocol Last Admin: 12/24/17 09:02 Dose: 600 mg Magnesium Hydroxide (Milk Of Magnesia) 30 ml PO ONCE PRN PRN Reason: Constipation Methimazole (Tapazole) 5 mg PO DAILY [facility] Last Admin: 12/24/17 09:03 Dose: 5 mg Metoprolol Tartrate (Lopressor) 25 mg PO Q12 [facility] Last Admin: 12/24/17 09:02 Dose: 25 mg Tramadol HCl (Ultram) 50 mg PO Q6 PRN PRN Reason: Pain, moderate (4-7) Last Admin: 12/24/17 11:19 Dose: 50 mg - Labs Labs: 12/24/17 11:40 12/24/17 05:30 - Respiratory Exam Respiratory Exam: NORMAL BREATHING PATTERN - Cardiovascular Exam Cardiovascular Exam: REGULAR RHYTHM - GI/Abdominal Exam GI & Abdominal Exam: Normal Bowel Sounds Assessment and Plan - Assessment and Plan (Free Text) Assessment: Leg pain?? Low ext edema with blisters- etiol? Venous vs Arterial? Infectious? Neuropathic?? Leg elevation IV ABX ID Podiatry Surgery Neurology Physiatry Arterial studies MARY CT scan L-S area Prerenal?? ABBEY/ CKD Creat improved IVF Labs US Nephrology CHF Diastolic CAD stress thalium scarring ischemia?? cardiac cath refused?? Cardiology Hx COPD L Pleural effusion Pulmonary Hx Anemia ASA d/c as outpt due to dec Hbg Stool for OB ?? Hematology consult NIDDM Thyroid dx Endo
[2017-12-25] MEDS: methIMAzole 5 MG TAB PO SCH (09:01)
[2017-12-25] MEDS: GlipiZIDE 2.5 mg SR Tab PO SCH (09:01)
[2017-12-25] MEDS: Enoxaparin 30 mg Syringe SC SCH (09:02)
[2017-12-25] MEDS: Bacitracin OINT 15GM TOP SCH (09:02)
[2017-12-25] MEDS: Lactobacillus Acidophilus 500 MU Cap PO SCH ×2 (09:08→17:51)
--- NOTE | 2017-12-25 09:42 | CP.PCM.PN ---
Subjective - Date & Time of Evaluation Date of Evaluation: 12/25/17 Time of Evaluation: 09:42 - Subjective Subjective: Seated on the edge of the bed. Affect is flat and mood appears to be slightly depressed. Lower extremity dressings have just been reapplied by podiatry. The patient does acknowledge the need for more ambulation although she complains of discomfort in both legs when walking. There is no complaint of dyspnea at rest and there is no cough or sputum production. On exam there are dry rales heard in the lower lobes bilaterally with improved aeration noted in the left lower lobe. No bronchial breathing or egophony. Vocal tactile fremitus is intact. No dullness on percussion. Patient is planned for discharge to subacute rehabilitation tomorrow for a prolonged period of physical therapy. Objective - Vital Signs/Intake and Output Vital Signs (last 24 hours): Temp Pulse Resp BP Pulse Ox 98.2 F 62 20 139/68 99 12/25/17 08:12 12/25/17 09:00 12/25/17 08:12 12/25/17 09:00 12/25/17 08:12 - Medications Medications: Current Medications Acetaminophen (Tylenol 325mg Tab) 650 mg PO Q4 PRN PRN Reason: Pain, Mild (1-3) Bacitracin (Bacitracin Oint) 1 applic TOP DAILY [facility] Last Admin: 12/25/17 09:02 Dose: Not Given Bisacodyl (Dulcolax) 10 mg [place] ONCE PRN PRN Reason: Constipation Ciprofloxacin (Cipro) 250 mg PO Q12 [facility] PRN Reason: Protocol Last Admin: 12/25/17 09:00 Dose: 250 mg Clopidogrel Bisulfate (Plavix) 75 mg PO DAILY [facility] Last Admin: 12/25/17 09:01 Dose: 75 mg Docusate Sodium (Colace) 100 mg PO DAILY [facility] Last Admin: 12/25/17 09:01 Dose: 100 mg Enoxaparin Sodium (Lovenox) 30 mg SC DAILY [facility] PRN Reason: Protocol Last Admin: 12/25/17 09:02 Dose: 30 mg Famotidine (Pepcid) 20 mg PO DAILY [facility] Last Admin: 12/25/17 09:01 Dose: 20 mg Ferrous Sulfate (Feosol) 325 mg PO DAILY [facility] Last Admin: 12/25/17 09:00 Dose: 325 mg Glipizide (Glucotrol Xl) 2.5 mg PO DAILY [facility] Last Admin: 12/25/17 09:01 Dose: 2.5 mg Isosorbide Mononitrate (Imdur Er) 30 mg PO DAILY [facility] Last Admin: 12/25/17 09:01 Dose: 30 mg Lactobacillus Acidophilus (Bacid Acidophilus) 1 cap PO BID [facility] Last Admin: 12/25/17 09:08 Dose: 1 cap Linezolid (Zyvox) 600 mg PO Q12 [facility] PRN Reason: Protocol Last Admin: 12/25/17 09:00 Dose: 600 mg Magnesium Hydroxide (Milk Of Magnesia) 30 ml PO ONCE PRN PRN Reason: Constipation Methimazole (Tapazole) 5 mg PO DAILY [facility] Last Admin: 12/25/17 09:01 Dose: 5 mg Metoprolol Tartrate (Lopressor) 25 mg PO Q12 [facility] Last Admin: 12/25/17 09:00 Dose: 25 mg Tramadol HCl (Ultram) 50 mg PO Q6 PRN PRN Reason: Pain, moderate (4-7) Last Admin: 12/24/17 20:35 Dose: 50 mg - Labs Labs: 12/24/17 11:40 12/24/17 05:30
--- NOTE | 2017-12-25 09:46 | CP.PCM.PN ---
Subjective - Date & Time of Evaluation Date of Evaluation: 12/25/17 Time of Evaluation: 09:15 - Subjective Subjective: NO CHEST PAIN OR SOB FEELS A LITTLE STRONGER BUT CLAIMS SHE CAN'T WALK FOR LONG OR CLIMB STAIRS Objective - Vital Signs/Intake and Output Vital Signs (last 24 hours): Temp Pulse Resp BP Pulse Ox 98.2 F 62 20 139/68 99 12/25/17 08:12 12/25/17 09:00 12/25/17 08:12 12/25/17 09:00 12/25/17 08:12 - Medications Medications: Current Medications Acetaminophen (Tylenol 325mg Tab) 650 mg PO Q4 PRN PRN Reason: Pain, Mild (1-3) Bacitracin (Bacitracin Oint) 1 applic TOP DAILY [facility] Last Admin: 12/25/17 09:02 Dose: Not Given Bisacodyl (Dulcolax) 10 mg [place] ONCE PRN PRN Reason: Constipation Ciprofloxacin (Cipro) 250 mg PO Q12 [facility] PRN Reason: Protocol Last Admin: 12/25/17 09:00 Dose: 250 mg Clopidogrel Bisulfate (Plavix) 75 mg PO DAILY [facility] Last Admin: 12/25/17 09:01 Dose: 75 mg Docusate Sodium (Colace) 100 mg PO DAILY [facility] Last Admin: 12/25/17 09:01 Dose: 100 mg Enoxaparin Sodium (Lovenox) 30 mg SC DAILY [facility] PRN Reason: Protocol Last Admin: 12/25/17 09:02 Dose: 30 mg Famotidine (Pepcid) 20 mg PO DAILY [facility] Last Admin: 12/25/17 09:01 Dose: 20 mg Ferrous Sulfate (Feosol) 325 mg PO DAILY [facility] Last Admin: 12/25/17 09:00 Dose: 325 mg Glipizide (Glucotrol Xl) 2.5 mg PO DAILY [facility] Last Admin: 12/25/17 09:01 Dose: 2.5 mg Isosorbide Mononitrate (Imdur Er) 30 mg PO DAILY [facility] Last Admin: 12/25/17 09:01 Dose: 30 mg Lactobacillus Acidophilus (Bacid Acidophilus) 1 cap PO BID [facility] Last Admin: 12/25/17 09:08 Dose: 1 cap Linezolid (Zyvox) 600 mg PO Q12 [facility] PRN Reason: Protocol Last Admin: 12/25/17 09:00 Dose: 600 mg Magnesium Hydroxide (Milk Of Magnesia) 30 ml PO ONCE PRN PRN Reason: Constipation Methimazole (Tapazole) 5 mg PO DAILY [facility] Last Admin: 12/25/17 09:01 Dose: 5 mg Metoprolol Tartrate (Lopressor) 25 mg PO Q12 [facility] Last Admin: 12/25/17 09:00 Dose: 25 mg Tramadol HCl (Ultram) 50 mg PO Q6 PRN PRN Reason: Pain, moderate (4-7) Last Admin: 12/24/17 20:35 Dose: 50 mg - Labs Labs: 12/24/17 11:40 12/24/17 05:30 - Respiratory Exam Respiratory Exam: Decreased Breath Sounds Additional comments: MILD RALES AT BASES - Extremities Exam Additional comments: BOTH LE WITH SURGICAL DRESSINGS Assessment and Plan - Assessment and Plan (Free Text) Assessment: CAD CHRONIC DIASTOLIC CHF HYPERTENSION BILATERAL LOWER EXTREMITY VENOUS INSUFFICIENCY [id number] WITH IV FLUIDS AND DISCONTINUATION OF FUROSEMIDE COPD TYPE 2 DM DECONDITIONING Plan: IV FLUIDS STOPPED YESTERDAY RENAL FUNCTION HAS IMPROVED CONTINUE METOPROLOL, NITRATES, CLOPIDOGREL AND LOVENOX
--- NOTE | 2017-12-25 09:57 | CP.PCM.PN ---
Subjective - Date & Time of Evaluation Date of Evaluation: 12/25/17 Time of Evaluation: 09:53 - Subjective Subjective: Podiatry Progress Note for Dr. Briseno 77 year old female seen at bedside this morning for multiple lysed blisters with some underlying infected wounds to both lower extremities. Patient is seen in her bed in a dependent position at the time of the visit. Patient is AAOx3 and in NAD. Patient admits to continued pain to both legs at sites of wounds, and states they are very tender to touch. Denies any recent F/C/N/V/CP/SOB/D/ posterior calf pain when squeezed. Denies any further pedal complaints at this time. Patient states she will be going to [facility] tomorrow upon discharge Objective - Vital Signs/Intake and Output Vital Signs (last 24 hours): Temp Pulse Resp BP Pulse Ox 98.2 F 62 20 139/68 99 12/25/17 08:12 12/25/17 09:00 12/25/17 08:12 12/25/17 09:00 12/25/17 08:12 - Medications Medications: Current Medications Acetaminophen (Tylenol 325mg Tab) 650 mg PO Q4 PRN PRN Reason: Pain, Mild (1-3) Bacitracin (Bacitracin Oint) 1 applic TOP DAILY [facility] Last Admin: 12/25/17 09:02 Dose: Not Given Bisacodyl (Dulcolax) 10 mg [place] ONCE PRN PRN Reason: Constipation Ciprofloxacin (Cipro) 250 mg PO Q12 [facility] PRN Reason: Protocol Last Admin: 12/25/17 09:00 Dose: 250 mg Clopidogrel Bisulfate (Plavix) 75 mg PO DAILY [facility] Last Admin: 12/25/17 09:01 Dose: 75 mg Docusate Sodium (Colace) 100 mg PO DAILY [facility] Last Admin: 12/25/17 09:01 Dose: 100 mg Enoxaparin Sodium (Lovenox) 30 mg SC DAILY [facility] PRN Reason: Protocol Last Admin: 12/25/17 09:02 Dose: 30 mg Famotidine (Pepcid) 20 mg PO DAILY [facility] Last Admin: 12/25/17 09:01 Dose: 20 mg Ferrous Sulfate (Feosol) 325 mg PO DAILY [facility] Last Admin: 12/25/17 09:00 Dose: 325 mg Glipizide (Glucotrol Xl) 2.5 mg PO DAILY [facility] Last Admin: 12/25/17 09:01 Dose: 2.5 mg Isosorbide Mononitrate (Imdur Er) 30 mg PO DAILY [facility] Last Admin: 12/25/17 09:01 Dose: 30 mg Lactobacillus Acidophilus (Bacid Acidophilus) 1 cap PO BID [facility] Last Admin: 12/25/17 09:08 Dose: 1 cap Linezolid (Zyvox) 600 mg PO Q12 [facility] PRN Reason: Protocol Last Admin: 12/25/17 09:00 Dose: 600 mg Magnesium Hydroxide (Milk Of Magnesia) 30 ml PO ONCE PRN PRN Reason: Constipation Methimazole (Tapazole) 5 mg PO DAILY [facility] Last Admin: 12/25/17 09:01 Dose: 5 mg Metoprolol Tartrate (Lopressor) 25 mg PO Q12 [facility] Last Admin: 12/25/17 09:00 Dose: 25 mg Tramadol HCl (Ultram) 50 mg PO Q6 PRN PRN Reason: Pain, moderate (4-7) Last Admin: 12/24/17 20:35 Dose: 50 mg - Labs Labs: 12/24/17 11:40 12/24/17 05:30 - Constitutional Appears: Well, Non-toxic, No Acute Distress - Extremities Exam Additional comments: Dressings intact to B/L lower extremities, serous strikethrough noted b/l Vasc: DP pulses weakly palpable 1/4 bilaterally, Non-palpable PT pulses secondary to edema, +2 pitting edema to bilateral LE, TG warm to warm, CFT < 4 sec to all digits. 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 Open lysed blister site measuring 6cm x 6cm x 0.1cm to posterior right leg mid calf with multiple vesicles noted to the medial aspect of the leg. Additional open lysed blister site with superficial ulceration measuring 4cm x 1.5cm x 0.1cm noted to anteromedial left leg. Third ulceration site noted to dorsum of L foot with central necrotic hard eschar, measuring 4cm x 4.5cm x 0.2cm. Jennifer wound exhibits epithelization with healthy pink skin edges noted to dorsal left foot ulcer site. All sites (-) for purulence, malodor, fluctuance, probe to bone, tunneling or undermining. All blisters continue to weep serous fluid. Ortho: Helene's sign negative B/L. All open blister sites are tender to palpation. No other gross musculoskeletal deformities noted - Neurological Exam Neurological Exam: Alert, Awake, Oriented x3 - Psychiatric Exam Psychiatric exam: Normal Affect, Normal Mood Assessment and Plan - Assessment and Plan (Free Text) Assessment: 77 year old female seen at bedside this morning for multiple lysed blisters with some underlying infected wounds to both lower extremities Plan: Patient seen and evaluated at bedside Plan discussed with Dr. Briseno Charts, labs, vitals reviewed Afebrile, absent leukocytosis Continue IV abx per ID Continue medical management per medicine Wound Cx- Right Leg: Proteus Penneri, Enterococcus Faecalis Venous duplex (-) for DVT Arterial Duplex: Diffuse atherosclerotic changes B/L Wounds cleaned with saline, dressed with alginate, ABD, DSD, CHAITANYA for light compression Patient strongly advised to leave dressings intact and to elevate legs as much as possible No plan for surgical intervention at this time Podiatry will continue to follow while patient in house Upon discharge, patient can follow-up at the wound care center
--- NOTE | 2017-12-25 14:29 | CP.PCM.PN ---
Subjective - Date & Time of Evaluation Date of Evaluation: 12/25/17 Time of Evaluation: 14:27 - Subjective Subjective: Patient out of bed receiving therapy Patient stated she is feeling good Both legs are wrapped and also edematous. Objective - Vital Signs/Intake and Output Vital Signs (last 24 hours): Temp Pulse Resp BP Pulse Ox 98.2 F 62 20 139/68 99 12/25/17 08:12 12/25/17 09:00 12/25/17 08:12 12/25/17 09:00 12/25/17 08:12 - Medications Medications: Current Medications Acetaminophen (Tylenol 325mg Tab) 650 mg PO Q4 PRN PRN Reason: Pain, Mild (1-3) Bacitracin (Bacitracin Oint) 1 applic TOP DAILY [facility] Last Admin: 12/25/17 09:02 Dose: Not Given Bisacodyl (Dulcolax) 10 mg [place] ONCE PRN PRN Reason: Constipation Ciprofloxacin (Cipro) 250 mg PO Q12 [facility] PRN Reason: Protocol Last Admin: 12/25/17 09:00 Dose: 250 mg Clopidogrel Bisulfate (Plavix) 75 mg PO DAILY [facility] Last Admin: 12/25/17 09:01 Dose: 75 mg Docusate Sodium (Colace) 100 mg PO DAILY [facility] Last Admin: 12/25/17 09:01 Dose: 100 mg Enoxaparin Sodium (Lovenox) 30 mg SC DAILY [facility] PRN Reason: Protocol Last Admin: 12/25/17 09:02 Dose: 30 mg Famotidine (Pepcid) 20 mg PO DAILY [facility] Last Admin: 12/25/17 09:01 Dose: 20 mg Ferrous Sulfate (Feosol) 325 mg PO DAILY [facility] Last Admin: 12/25/17 09:00 Dose: 325 mg Glipizide (Glucotrol Xl) 2.5 mg PO DAILY [facility] Last Admin: 12/25/17 09:01 Dose: 2.5 mg Isosorbide Mononitrate (Imdur Er) 30 mg PO DAILY [facility] Last Admin: 12/25/17 09:01 Dose: 30 mg Lactobacillus Acidophilus (Bacid Acidophilus) 1 cap PO BID [facility] Last Admin: 12/25/17 09:08 Dose: 1 cap Linezolid (Zyvox) 600 mg PO Q12 [facility] PRN Reason: Protocol Last Admin: 12/25/17 09:00 Dose: 600 mg Magnesium Hydroxide (Milk Of Magnesia) 30 ml PO ONCE PRN PRN Reason: Constipation Methimazole (Tapazole) 5 mg PO DAILY [facility] Last Admin: 12/25/17 09:01 Dose: 5 mg Metoprolol Tartrate (Lopressor) 25 mg PO Q12 [facility] Last Admin: 12/25/17 09:00 Dose: 25 mg Tramadol HCl (Ultram) 50 mg PO Q6 PRN PRN Reason: Pain, moderate (4-7) Last Admin: 12/25/17 10:35 Dose: 50 mg - Labs Labs: 12/24/17 11:40 12/24/17 05:30 - Constitutional Appears: No Acute Distress - ENT Exam ENT Exam: Mucous Membranes Moist - Neck Exam Neck Exam: absent: Lymphadenopathy - Respiratory Exam Respiratory Exam: NORMAL BREATHING PATTERN - Cardiovascular Exam Cardiovascular Exam: absent: Gallop, JVD, Rubs - GI/Abdominal Exam GI & Abdominal Exam: Soft, Normal Bowel Sounds - Extremities Exam Extremities Exam: absent: Calf Tenderness - Back Exam Back Exam: absent: CVA tenderness (L), CVA tenderness (R) - Neurological Exam Neurological Exam: Alert Assessment and Plan - Assessment and Plan (Free Text) Assessment: Patient recovers from acute kidney injury. Leg edema noted at least 1-2+ suggest to add diuretics
--- NOTE | 2017-12-25 18:59 | CP.PCM.PN ---
Subjective - Date & Time of Evaluation Date of Evaluation: 12/25/17 Time of Evaluation: 22:22 - Subjective Subjective: Above noted Objective - Vital Signs/Intake and Output Vital Signs (last 24 hours): Temp Pulse Resp BP Pulse Ox 97.0 F L 67 20 111/58 L 96 12/25/17 16:36 12/25/17 16:36 12/25/17 16:36 12/25/17 17:53 12/25/17 16:36 - Medications Medications: Current Medications Acetaminophen (Tylenol 325mg Tab) 650 mg PO Q4 PRN PRN Reason: Pain, Mild (1-3) Bacitracin (Bacitracin Oint) 1 applic TOP DAILY [facility] Last Admin: 12/25/17 09:02 Dose: Not Given Bisacodyl (Dulcolax) 10 mg [place] ONCE PRN PRN Reason: Constipation Ciprofloxacin (Cipro) 250 mg PO Q12 [facility] PRN Reason: Protocol Last Admin: 12/25/17 09:00 Dose: 250 mg Clopidogrel Bisulfate (Plavix) 75 mg PO DAILY [facility] Last Admin: 12/25/17 09:01 Dose: 75 mg Docusate Sodium (Colace) 100 mg PO DAILY [facility] Last Admin: 12/25/17 09:01 Dose: 100 mg Enoxaparin Sodium (Lovenox) 30 mg SC DAILY [facility] PRN Reason: Protocol Last Admin: 12/25/17 09:02 Dose: 30 mg Famotidine (Pepcid) 20 mg PO DAILY [facility] Last Admin: 12/25/17 09:01 Dose: 20 mg Ferrous Sulfate (Feosol) 325 mg PO DAILY [facility] Last Admin: 12/25/17 09:00 Dose: 325 mg Furosemide (Lasix) 20 mg PO DAILY [facility] Last Admin: 12/25/17 17:53 Dose: 20 mg Glipizide (Glucotrol Xl) 2.5 mg PO DAILY [facility] Last Admin: 12/25/17 09:01 Dose: 2.5 mg Isosorbide Mononitrate (Imdur Er) 30 mg PO DAILY [facility] Last Admin: 12/25/17 09:01 Dose: 30 mg Lactobacillus Acidophilus (Bacid Acidophilus) 1 cap PO BID [facility] Last Admin: 12/25/17 17:51 Dose: 1 cap Linezolid (Zyvox) 600 mg PO Q12 [facility] PRN Reason: Protocol Last Admin: 12/25/17 09:00 Dose: 600 mg Magnesium Hydroxide (Milk Of Magnesia) 30 ml PO ONCE PRN PRN Reason: Constipation Methimazole (Tapazole) 5 mg PO DAILY [facility] Last Admin: 12/25/17 09:01 Dose: 5 mg Metoprolol Tartrate (Lopressor) 25 mg PO Q12 [facility] Last Admin: 12/25/17 09:00 Dose: 25 mg Tramadol HCl (Ultram) 50 mg PO Q6 PRN PRN Reason: Pain, moderate (4-7) Last Admin: 12/25/17 10:35 Dose: 50 mg - Labs Labs: 12/24/17 11:40 12/24/17 05:30 - Respiratory Exam Respiratory Exam: NORMAL BREATHING PATTERN - Cardiovascular Exam Cardiovascular Exam: REGULAR RHYTHM - GI/Abdominal Exam GI & Abdominal Exam: Normal Bowel Sounds Assessment and Plan - Assessment and Plan (Free Text) Assessment: Leg pain?? Low ext edema with blisters- etiol? Venous vs Arterial? Infectious? Neuropathic?? Leg elevation IV ABX ID Podiatry Surgery Neurology Physiatry Arterial studies MARY CT scan L-S area CT angiography?? MRA?? Prerenal?? ABBEY/ CKD Creat improved IVF Labs US Nephrology CHF Diastolic CAD stress thalium scarring ischemia?? cardiac cath refused?? Cardiology Hx COPD L Pleural effusion Pulmonary Hx Anemia Hbg 9.6 ASA d/c as outpt due to dec Hbg Stool for OB ?? Hematology consult NIDDM Thyroid dx Endo
--- NOTE | 2017-12-25 19:41 | PN ---
DATE: 12/25/2017 ENDOCRINOLOGY FOLLOWUP NOTE LOCATION: In room 708. SUBJECTIVE: This is a 77-year-old female with recent uncontrolled type 2 diabetes, now with improved glycemic profile as noted. However, her oral intake remains quite variable as per the nursing staff. Her latest glucose levels today have ranged from 81 to 141 and 206 mg/dL. Her latest chemistry showed BUN of 36, sodium of 139, potassium of 4.5, chloride of 107, CO2 of 21, glucose of 92, and creatinine of 1.0. So at this time, we will continue the glipizide given as 2.5 mg once daily in the morning as ordered. We will continue the Tapazole given as 5 mg once daily in the morning as ordered. We will titrate incrementally as indicated to optimize metabolic control. We will obtain serial chemistries and supplement accordingly as needed. We will follow. Lucia Corley MD
[2017-12-26] MEDS: GlipiZIDE 2.5 mg SR Tab PO SCH (09:05)
[2017-12-26] MEDS: Lactobacillus Acidophilus 500 MU Cap PO SCH (09:10)
[2017-12-26] MEDS: methIMAzole 5 MG TAB PO SCH (09:10)
[2017-12-26] MEDS: Enoxaparin 30 mg Syringe SC SCH (09:11)
[2017-12-26 09:12] VITALS: BP 134/63; PULSE 71
--- NOTE | 2017-12-26 09:24 | CP.PCM.PN ---
Subjective - Date & Time of Evaluation Date of Evaluation: 12/26/17 Time of Evaluation: 09:13 - Subjective Subjective: Podiatry Progress Note for Dr. Briseno 77 year old female seen at bedside this morning for multiple lysed blisters with some underlying infected wounds to both lower extremities. Patient is seen in her bed in a dependent position at the time of the visit. Patient is AAOx3 and in NAD. Patient Patient reports that she likes to keep her legs hanging because she has pain. Denies any further pedal complaints at this time. Reports she is going to [facility] today. Denies of having any recent F/N/V/C/SOB/CP. Objective - Vital Signs/Intake and Output Vital Signs (last 24 hours): Temp Pulse Resp BP Pulse Ox 97.0 F L 71 20 134/63 93 L 12/25/17 21:21 12/26/17 09:05 12/25/17 21:21 12/26/17 09:06 12/25/17 21:21 - Medications Medications: Current Medications Acetaminophen (Tylenol 325mg Tab) 650 mg PO Q4 PRN PRN Reason: Pain, Mild (1-3) Bacitracin (Bacitracin Oint) 1 applic TOP DAILY [facility] Last Admin: 12/25/17 09:02 Dose: Not Given Bisacodyl (Dulcolax) 10 mg [place] ONCE PRN PRN Reason: Constipation Ciprofloxacin (Cipro) 250 mg PO Q12 [facility] PRN Reason: Protocol Last Admin: 12/26/17 09:04 Dose: 250 mg Clopidogrel Bisulfate (Plavix) 75 mg PO DAILY [facility] Last Admin: 12/26/17 09:10 Dose: 75 mg Docusate Sodium (Colace) 100 mg PO DAILY [facility] Last Admin: 12/25/17 09:01 Dose: 100 mg Enoxaparin Sodium (Lovenox) 30 mg SC DAILY [facility] PRN Reason: Protocol Last Admin: 12/26/17 09:11 Dose: 30 mg Famotidine (Pepcid) 20 mg PO DAILY [facility] Last Admin: 12/26/17 09:11 Dose: 20 mg Ferrous Sulfate (Feosol) 325 mg PO DAILY [facility] Last Admin: 12/26/17 09:10 Dose: 325 mg Furosemide (Lasix) 20 mg PO DAILY [facility] Last Admin: 12/26/17 09:06 Dose: 20 mg Glipizide (Glucotrol Xl) 2.5 mg PO DAILY [facility] Last Admin: 12/26/17 09:05 Dose: 2.5 mg Isosorbide Mononitrate (Imdur Er) 30 mg PO DAILY [facility] Last Admin: 12/26/17 09:06 Dose: 30 mg Lactobacillus Acidophilus (Bacid Acidophilus) 1 cap PO BID [facility] Last Admin: 12/26/17 09:10 Dose: 1 cap Linezolid (Zyvox) 600 mg PO Q12 [facility] PRN Reason: Protocol Last Admin: 12/26/17 09:04 Dose: 600 mg Magnesium Hydroxide (Milk Of Magnesia) 30 ml PO ONCE PRN PRN Reason: Constipation Methimazole (Tapazole) 5 mg PO DAILY [facility] Last Admin: 12/26/17 09:10 Dose: 5 mg Metoprolol Tartrate (Lopressor) 25 mg PO Q12 [facility] Last Admin: 12/26/17 09:05 Dose: 25 mg Tramadol HCl (Ultram) 50 mg PO Q6 PRN PRN Reason: Pain, moderate (4-7) Last Admin: 12/26/17 00:15 Dose: 50 mg - Labs Labs: 12/24/17 11:40 12/24/17 05:30 - Constitutional Appears: Well, Non-toxic, No Acute Distress - Extremities Exam Additional comments: Dressings intact to B/L lower extremities, serous strikethrough noted b/l Vasc: DP pulses weakly palpable 1/4 bilaterally, Non-palpable PT pulses secondary to edema, +2 pitting edema to bilateral LE, TG warm to warm, CFT < 4 sec to all digits. 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 Open lysed blister site measuring 6cm x 6cm x 0.1cm to posterior right leg mid calf with multiple vesicles noted to the medial aspect of the leg. Additional open lysed blister site with superficial ulceration measuring 4cm x 1.5cm x 0.1cm noted to anteromedial left leg. Third ulceration site noted to dorsum of L foot with central necrotic hard eschar, measuring 4cm x 4.5cm x 0.2cm. Jennifer wound exhibits epithelization with healthy pink skin edges noted to dorsal left foot ulcer site. All sites (-) for purulence, malodor, fluctuance, probe to bone, tunneling or undermining. All blisters continue to weep serous fluid. Ortho: Helene's sign negative B/L. All open blister sites are tender to palpation. No other gross musculoskeletal deformities noted - Neurological Exam Neurological Exam: Alert, Awake, Oriented x3 - Psychiatric Exam Psychiatric exam: Normal Affect, Normal Mood Assessment and Plan - Assessment and Plan (Free Text) Assessment: 77 year old female seen at bedside this morning for multiple lysed blisters with underlying mildly infected superficial wounds Plan: Patient seen and evaluated at bedside with attending Dr. Briseno Charts, labs, vitals reviewed Afebrile, absent leukocytosis Continue IV abx per ID Continue medical management per medicine Wound Cx- Right Leg: Proteus Penneri, Enterococcus Faecalis Venous duplex (-) for DVT Arterial Duplex: Diffuse atherosclerotic changes B/L Wounds cleaned with saline, dressed with alginate, ABD, DSD, CHAITANYA for light compression Patient strongly advised to leave dressings intact and to elevate legs as much as possible No plan for surgical intervention at this time Podiatry will continue to follow while patient in house Upon discharge, patient can follow-up at the wound care center for further care
[2017-12-26] MEDS: Bacitracin OINT 15GM TOP SCH (10:39)
[2017-12-26 14:18] VITALS: TEMP 97.2; O2SAT 98
--- NOTE | 2017-12-26 14:23 | CP.PCM.PN ---
Subjective - Date & Time of Evaluation Date of Evaluation: 12/26/17 Time of Evaluation: 13:45 - Subjective Subjective: No complaints, participating in rehab. Objective - Vital Signs/Intake and Output Vital Signs (last 24 hours): Temp Pulse Resp BP Pulse Ox 97.2 F L 71 20 134/63 98 12/26/17 08:00 12/26/17 09:05 12/26/17 08:00 12/26/17 09:06 12/26/17 08:00 - Medications Medications: Current Medications Acetaminophen (Tylenol 325mg Tab) 650 mg PO Q4 PRN PRN Reason: Pain, Mild (1-3) Bacitracin (Bacitracin Oint) 1 applic TOP DAILY [facility] Last Admin: 12/26/17 10:39 Dose: Not Given Bisacodyl (Dulcolax) 10 mg [place] ONCE PRN PRN Reason: Constipation Ciprofloxacin (Cipro) 250 mg PO Q12 [facility] PRN Reason: Protocol Last Admin: 12/26/17 09:04 Dose: 250 mg Clopidogrel Bisulfate (Plavix) 75 mg PO DAILY [facility] Last Admin: 12/26/17 09:10 Dose: 75 mg Docusate Sodium (Colace) 100 mg PO DAILY [facility] Last Admin: 12/26/17 10:39 Dose: Not Given Enoxaparin Sodium (Lovenox) 30 mg SC DAILY [facility] PRN Reason: Protocol Last Admin: 12/26/17 09:11 Dose: 30 mg Famotidine (Pepcid) 20 mg PO DAILY [facility] Last Admin: 12/26/17 09:11 Dose: 20 mg Ferrous Sulfate (Feosol) 325 mg PO DAILY [facility] Last Admin: 12/26/17 09:10 Dose: 325 mg Furosemide (Lasix) 20 mg PO DAILY [facility] Last Admin: 12/26/17 09:06 Dose: 20 mg Glipizide (Glucotrol Xl) 2.5 mg PO DAILY [facility] Last Admin: 12/26/17 09:05 Dose: 2.5 mg Isosorbide Mononitrate (Imdur Er) 30 mg PO DAILY [facility] Last Admin: 12/26/17 09:06 Dose: 30 mg Lactobacillus Acidophilus (Bacid Acidophilus) 1 cap PO BID [facility] Last Admin: 12/26/17 09:10 Dose: 1 cap Linezolid (Zyvox) 600 mg PO Q12 [facility] PRN Reason: Protocol Last Admin: 12/26/17 09:04 Dose: 600 mg Magnesium Hydroxide (Milk Of Magnesia) 30 ml PO ONCE PRN PRN Reason: Constipation Methimazole (Tapazole) 5 mg PO DAILY [facility] Last Admin: 12/26/17 09:10 Dose: 5 mg Metoprolol Tartrate (Lopressor) 25 mg PO Q12 [facility] Last Admin: 12/26/17 09:05 Dose: 25 mg Tramadol HCl (Ultram) 50 mg PO Q6 PRN PRN Reason: Pain, moderate (4-7) Last Admin: 12/26/17 13:19 Dose: 50 mg - Labs Labs: 12/24/17 11:40 12/24/17 05:30 - Head Exam Head Exam: ATRAUMATIC - Eye Exam Eye Exam: Normal appearance - ENT Exam ENT Exam: Mucous Membranes Dry - Respiratory Exam Respiratory Exam: NORMAL BREATHING PATTERN - Cardiovascular Exam Cardiovascular Exam: +S1, +S2 - GI/Abdominal Exam GI & Abdominal Exam: Normal Bowel Sounds - Extremities Exam Additional comments: B/L LE dressings Assessment and Plan (1) Anemia Assessment & Plan: H/H improving on PO iron and intermittent Procrit declined iron stores; likely chronic intermittent GI blood loss anemia of CKD Status: Acute
--- NOTE | 2017-12-26 18:12 | CP.PCM.PN ---
Subjective - Date & Time of Evaluation Date of Evaluation: 12/26/17 Time of Evaluation: 22:22 - Subjective Subjective: Above noted Objective - Vital Signs/Intake and Output Vital Signs (last 24 hours): Temp Pulse Resp BP Pulse Ox 97.2 F L 71 20 134/63 98 12/26/17 08:00 12/26/17 09:05 12/26/17 08:00 12/26/17 09:06 12/26/17 08:00 - Labs Labs: 12/24/17 11:40 12/24/17 05:30 - Respiratory Exam Respiratory Exam: NORMAL BREATHING PATTERN - Cardiovascular Exam Cardiovascular Exam: REGULAR RHYTHM - GI/Abdominal Exam GI & Abdominal Exam: Normal Bowel Sounds Assessment and Plan - Assessment and Plan (Free Text) Assessment: Leg pain?? Low ext edema with blisters- etiol? Venous vs Arterial? Infectious? Neuropathic?? Leg elevation IV ABX ID Podiatry Surgery Neurology Physiatry Arterial studies MARY CT scan L-S area CT angiography?? MRA?? Prerenal?? ABBEY/ CKD Creat improved IVF Labs US Nephrology CHF Diastolic CAD stress thalium scarring ischemia?? cardiac cath refused?? Cardiology Hx COPD L Pleural effusion Pulmonary Hx Anemia Hbg 9.6 ASA d/c as outpt due to dec Hbg Stool for OB ?? Hematology consult NIDDM Thyroid dx Endo
--- NOTE | 2017-12-26 19:18 | PN ---
ENDOCRINOLOGY FOLLOWUP NOTE DATE: LOCATION: Room 708. SUBJECTIVE: This is a 77-year-old female with recent uncontrolled type 2 diabetes and hyperthyroidism admitted here with congestive heart failure and underlying lower extremity neuropathic ulcerations and is now being followed closely for metabolic management. Her oral intake remains quite variable at this time as noted and today's glucose levels have ranged from 93-103 and 109 mg/dL. Her latest chemistry showed a BUN of 36, sodium 139, potassium 4.5, chloride 105, CO2 of 21, glucose 92 and creatinine 1.0. Her latest thyroid studies showed T4 of 5.82 with a TSH of 3.30. So at this time, we will continue the Tapazole given as 5 mg once daily in the morning as ordered. Moreover, we will also continue the low-dose oral hypoglycemic therapy with glipizide given as 2.5 mg once daily in the morning as ordered. we will follow and obtain serial chemistries and serial thyroid studies and titrate her dose regimen accordingly. We will follow. Lucia Corley MD
== END 2017-12-26 13:40 | DRG 300 ==
LOC: H.TCU 16:07
PROVIDERS: ADMIT Family Medicine Geriatric Medicine; ATTEND Family Medicine Geriatric Medicine
PROC: F07Z9FZ Gait Training/Functional Ambulation Treatment using Assistive, Adaptive, Supportive or Protective Equipment (ICD-10-PCS; principal; 2017-12-18)
PROC: F08Z4FZ Home Management Treatment using Assistive, Adaptive, Supportive or Protective Equipment (ICD-10-PCS; 2017-12-18)
PROC: F07L6FZ Therapeutic Exercise Treatment of Musculoskeletal System - Lower Back / Lower Extremity using Assistive, Adaptive, Supportive or Protective Equipment (ICD-10-PCS; 2017-12-19)
DX: I87.2 Venous insufficiency (chronic) (peripheral) (principal); N17.9 Acute kidney failure, unspecified; I50.32 Chronic diastolic (congestive) heart failure; I13.0 Hypertensive heart and chronic kidney disease with heart failure and stage 1 through stage 4 chronic kidney disease, or unspecified chronic kidney disease; L97.519 Non-pressure chronic ulcer of other part of right foot with unspecified severity; L97.529 Non-pressure chronic ulcer of other part of left foot with unspecified severity; E11.621 Type 2 diabetes mellitus with foot ulcer; E11.42 Type 2 diabetes mellitus with diabetic polyneuropathy; E11.51 Type 2 diabetes mellitus with diabetic peripheral angiopathy without gangrene; E11.22 Type 2 diabetes mellitus with diabetic chronic kidney disease; N18.9 Chronic kidney disease, unspecified; D50.0 Iron deficiency anemia secondary to blood loss (chronic); D63.1 Anemia in chronic kidney disease; E05.00 Thyrotoxicosis with diffuse goiter without thyrotoxic crisis or storm; I25.10 Atherosclerotic heart disease of native coronary artery without angina pectoris; E78.00 Pure hypercholesterolemia, unspecified; J44.9 Chronic obstructive pulmonary disease, unspecified; Z79.84 Long term (current) use of oral hypoglycemic drugs; Z87.442 Personal history of urinary calculi; Z87.891 Personal history of nicotine dependence

== ENCOUNTER 2018-01-30 16:04 | Inpatient (IN) | payer MEDICARE ==
--- NOTE | 2018-01-30 16:59 | ED PDOC ---
Lower Extremity Pain/Injury Time Seen by Provider: 01/30/18 16:21 Chief Complaint (Nursing): Abnormal Skin Integrity Chief Complaint (Provider): wounds bilateral legs History Per: Patient Onset/Duration Of Symptoms: Days (1) Current Symptoms Are (Timing): Still Present Severity: Severe Additional History Per: Longterm Additional Complaint(s): bilateral chronic lower leg wounds under care at wound center and residential, come to ER for evaluation of worsening pain to legs RIGHT > LEFT Denies shortness of breath or chest pain Also c/o feeling anxious PMD Dr Cintron Past Medical History Reviewed: Historical Data, Nursing Documentation, Vital Signs Vital Signs: Last Vital Signs Temp 97.5 F L 01/30/18 16:14 Pulse 115 H 01/30/18 16:14 Resp 16 01/30/18 16:14 BP 113/49 L 01/30/18 16:14 Pulse Ox 96 01/30/18 16:14 - Medical History PMH: Anemia, Bronchitis, CHF, COPD, Diabetes, HTN, Hypercholesterolemia, Hyperthyroidism, Kidney Stones (kidney stone removal), Peripheral Edema, Pneumonia, Chronic Kidney Disease Denies: HIV - Surgical History Surgical History: Appendectomy - Family History Family History: States: Unknown Family Hx - Living Arrangements Living Arrangements: Longterm/Assist Lvng - Social History Current smoker - smoking cessation education provided: No - Home Medications Home Medications: Ambulatory Orders Medication Instructions Recorded Famotidine [Pepcid] 20 mg PO DAILY 11/02/17 Metoprolol Tartrate [Lopressor] 25 mg PO Q12 11/02/17 methIMAzole [Tapazole] 5 mg PO DAILY 11/02/17 Acetaminophen [Tylenol 325mg tab] 650 mg PO Q4 PRN tab 11/08/17 Clopidogrel [Plavix] 75 mg PO DAILY tab 11/08/17 GlipiZIDE SR [Glucotrol XL] 2.5 mg PO DAILY tab 11/08/17 Isosorbide Mononitrate ER [Imdur 30 mg PO DAILY tab 11/08/17 ER] Bacitracin OINT 1 applic TOP DAILY tube 12/18/17 Docusate [Colace] 100 mg PO DAILY cap 12/18/17 Ferrous Sulfate [Feosol] 325 mg PO DAILY tab 12/18/17 Lactobacillus Acidophilus [Bacid 1 cap PO BID cap 12/18/17 Acidophilus] Enoxaparin [Lovenox] 30 mg SC DAILY syr 12/26/17 Acetaminophen [Tylenol 325mg tab] 650 mg PO Q4 PRN 01/30/18 Amoxicillin/Clavulanate [Augmentin 1 tab PO Q12 01/30/18 875 MG-125 MG Tab] Bisacodyl [Dulcolax] 10 mg [place] DAILY PRN 01/30/18 Furosemide [Lasix] 20 mg PO DAILY 01/30/18 Hydrogen Peroxide [Peroxyl Dental 1 appl TOP MOWEFR 01/30/18 Rinse] Magnesium Hydroxide [Milk Of 30 ml PO HS PRN 01/30/18 Magnesia] Silver Sulfadiazine 1% [Silvadene 1 appl TOP Q12 01/30/18 1%] Zinc Oxide [Perishield] 1 appl TOP QSHIFT 01/30/18 traMADol [Ultram] 50 mg PO Q6 PRN 01/30/18 - Allergies Allergies/Adverse Reactions: Allergies Allergy/AdvReac Type Severity Reaction Status Date / Time No Known Allergies Allergy Verified 12/18/17 16:07 Review of Systems ROS Statement: Except As Marked, All Systems Reviewed And Found Negative (and as per HPI) Constitutional: Negative for: Fever, Chills Cardiovascular: Positive for: Edema. Negative for: Chest Pain Musculoskeletal: Positive for: Leg Pain, Foot Pain Skin: Positive for: Lesions Psych: Positive for: Anxiety. Negative for: Psychosis Physical Exam - Reviewed Nursing Documentation Reviewed: Yes Vital Signs Reviewed: Yes - Physical Exam Appears: Positive for: Non-toxic, Uncomfortable Head Exam: Positive for: ATRAUMATIC, NORMOCEPHALIC Skin: Positive for: Warm, Dry. Negative for: Normal Color (see leg exam) Eye Exam: Positive for: EOMI, PERRL ENT: Negative for: Pharyngeal Erythema, Tonsillar Exudate Neck: Positive for: Painless ROM, Supple Cardiovascular/Chest: Positive for: Chest Non Tender, Murmur. Negative for: Tachycardia Respiratory: Negative for: Decreased Breath Sounds, Accessory Muscle Use, Respiratory Distress Gastrointestinal/Abdominal: Positive for: Soft. Negative for: Tenderness Back: Positive for: Normal Inspection. Negative for: Decreased ROM Extremity: Positive for: Other (Bilateral lower legs with multiple ulcers/ bullae of various stages and sizes, well-demarcated. Multiple areas of oozing. Largest wound posterior RIGHT calf irregularly shaped. RIGHT lower leg with marked erythema and induration.) Neurologic/Psych: Positive for: Alert, Mood/Affect (anxious mood and affect). Negative for: Motor/Sensory Deficits - Laboratory Results Result Diagrams: 01/30/18 17:15 01/30/18 17:15 - ECG O2 Sat by Pulse Oximetry: 96 Pulse Ox Interpretation: Normal - Progress ED Course And Treament: Labs demonstrated leukocytosis and elevated BUN. Findings c/w infection and mild renal insufficiency. Leukocytosis and tachycardia c/w sepsis. Pt refused US. DW Dr Young for admission for acute cellulitis with chronic leg ulcers and vascular congestion/insufficiency. Consults ordered as per discussion. Disposition - Clinical Impression Clinical Impression: PVD (peripheral vascular disease), Sepsis, Cellulitis, leg - Disposition Disposition Time: 18:00 Condition: FAIR - Pt Status Changed To: Hospital Disposition Of: Inpatient - Admit Certification Admit to Inpatient:: After my assessment, the patient will require hospitalization for at least two midnights. This is because of the severity of symptoms shown, intensity of services needed, and/or the medical risk in this patient being treated as an outpatient. - POA Present On Arrival: Deep Vein Thrombosis / PE (unknown given pt's refusal to have US performed), Pressure Ulcer (heels?)
[2018-01-30 17:33] LABS: BASO # 0.1 K/uL (0.0-0.2); BASO % 0.4 % (0.0-2.0); EOS % 0.3 % (0.0-4.0); HEMOGLOBIN 9.1 g/dL (12.0-16.0); LYMPH # 0.4 K/uL (1.0-4.3); LYMPH % 2.7 % (20.0-40.0); MEAN CELL VOLUME 76.8 fl (81.0-99.0); MEAN CORPUSCULAR HGB CONC 31.3 g/dL (33.0-37.0); MEAN PLATELET VOLUME 7.8 fl (7.2-11.7); MONO # 1.2 K/uL (0.0-0.8); MONO % 7.6 % (0.0-10.0); NEUT # 13.6 K/uL (1.8-7.0); NRBC % 0.2 % (0.0-0.0); PLATELET COUNT 289 K/uL (130-400); RBC 3.78 Mil/uL (3.80-5.20); RED CELL DISTRIBUTION WIDTH 20.1 % (11.5-14.5); WHITE BLOOD COUNT 15.3 K/uL (4.8-10.8)
[2018-01-30 17:54] LABS: ALBUMIN 3.4 g/dL (3.5-5.0); CALCIUM 9.5 mg/dL (8.4-10.2)
[2018-01-30 17:55] LABS: INR 1.2 (0.9-1.2); PARTIAL THROMBOPLASTIN TIME 25.4 Seconds (25.6-37.1); PROTHROMBIN TIME 13.3 Seconds (9.8-13.1)
[2018-01-30] MEDS ORDERED: Sodium Chloride 0.9% 250 ML IV STA (18:21)
[2018-01-30] MEDS ORDERED: Piperacillin/Tazobact 3.375 GM in Sodium Chloride 0.9% 100 ML IVPB STA (18:21)
[2018-01-30] MEDS ORDERED: Vancomycin 1 g Inj ONE (18:31)
--- NOTE | 2018-01-30 18:34 | CP.PCM.CON ---
History of Present Illness - History of Present Illness History of Present Illness: Podiatry Consult Note- Dr. Briseno 77 y.o female with PMH of DM, CAD, CHF, chronic anemia, PVD with history of lower extremity ulcerations with cellulitis and swelling seen and evaluated in the ED for bilateral lower extremity ulcerations with swelling and cellulitis. Patient is known to Dr. Briseno and podiatry service when patient does not adhere to treatment plans and noncompliant. Today patient reports to ED with worsening lower extremity ulcerations with new bullae formation to the LE. Patient reports she does not like to elevate her legs. Reports feels better when they are hanging off the bed. Reports she does not like compression or the dressings that is placed on her lower extremity. During the time of encounter, patient denies nausea, fever, shortness of breath, or chest pains. Past Patient History - Infectious Disease Hx of Infectious Diseases: None - Past Medical History & Family History Past Medical History?: Yes - Past Social History Smoking Status: Former Smoker - CARDIAC Hx Congestive Heart Failure: Yes Hx Hypercholesterolemia: Yes Hx Hypertension: Yes Hx Peripheral Edema: Yes - PULMONARY Hx Bronchitis: Yes Hx Chronic Obstructive Pulmonary Disease (COPD): Yes Hx Pneumonia: Yes - NEUROLOGICAL Other/Comment: Paresthesias of both feet - HEENT Hx HEENT Problems: No - RENAL Hx Chronic Kidney Disease: Yes Hx Kidney Stones: Yes (kidney stone removal) - ENDOCRINE/METABOLIC Hx Hyperthyroidism: Yes - HEMATOLOGICAL/ONCOLOGICAL Hx Anemia: Yes Hx Human Immunodeficiency Virus (HIV): No - INTEGUMENTARY Hx Dermatological Problems: Yes Other/Comment: Dependent edema of both lower extremities with blister formation - MUSCULOSKELETAL/RHEUMATOLOGICAL Hx Falls: Yes - GASTROINTESTINAL Hx Gastrointestinal Disorders: No - GENITOURINARY/GYNECOLOGICAL Hx Genitourinary Disorders: No - PSYCHIATRIC Hx Psychophysiologic Disorder: No Hx Substance Use: No - SURGICAL HISTORY Hx Appendectomy: Yes - ANESTHESIA Hx Anesthesia: Yes Hx Anesthesia Reactions: No Hx Malignant Hyperthermia: No Meds Allergies/Adverse Reactions: Allergies Allergy/AdvReac Type Severity Reaction Status Date / Time No Known Allergies Allergy Verified 12/18/17 16:07 - Medications Medications: Current Medications Sodium Chloride (Sodium Chloride 0.9%) 250 mls @ 250 mls/hr IV .Q1H STA Stop: 01/30/18 19:20 Vancomycin HCl 1 gm/ Sodium (Chloride) 250 mls @ 166.667 mls/hr IV STAT STA PRN Reason: Protocol Stop: 01/30/18 19:50 Piperacillin Sod/Tazobactam (Sod 3.375 gm/ Sodium Chloride) 100 mls @ 100 mls/ hr IVPB STAT STA PRN Reason: Protocol Stop: 01/30/18 19:20 Physical Exam - Constitutional Appears: Non-toxic, No Acute Distress - Extremities Exam Extremities exam: Negative for: calf tenderness Additional comments: Vasc: DP pulses and PT pulses nonpalpable, +2 pitting edema to bilateral LE, TG warm to warm, CFT < 4 sec to all digits Neuro: Epicritic and protective sensation grossly intact bilaterally Derm: MULTIPLE bilateral lower extremity ulcerations: Necrotic right heel ulceration noted with drainage, malodorous. Ulceration noted measuring 7cm x 6cm x 0.1cm to posterior right leg mid calf with multiple vesicles noted to the medial aspect of the leg. Wound base is mainly fibrotic with necrotic tissue noted, odorous, erythema noted, no tunneling, no probe to bone or tendon exposed Open additional open lysed blister site with superficial ulceration measuring 4cm x 1.5cm x 0.1cm noted to anteromedial left leg. Granular in nature. Ulceration site noted to dorsum of L foot with central fibrotic, measuring 4cm x 4.5cm x 0.2cm. Jennifer wound exhibits epithelization with healthy pink skin edges noted to dorsal left foot ulcer site. malodor present, no fluctuance, no probe to bone, no tunneling or no undermining. Multiple chronic, 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 All blisters continue to weep serous fluid. Multiple ulcerations noted to the entire lower extremity with mixture of fibrotic/necrotic wound base: ulcerations to dorsum of the left digits 1 and 2 with fibrotic base and macerated periwound. Ulcerations to dorsum of right digits 1, 2, 3, 4 with mixture of fibrotic and necrotic base, nail plate from nail bed of digits right 2 and 3 are absent, 4 nail plate is loose,eErythema to the entire LE R>L, odorous, all sites (-) for purulence, fluctuance, probe to bone, tunneling or undermining. Ortho: Helene's sign negative B/L. All ulceration sites are tender to palpation. No other gross musculoskeletal deformities noted - Neurological Exam Neurological exam: Alert, Oriented x3 - Psychiatric Exam Psychiatric exam: Agitated Results - Vital Signs Recent Vital Signs: Last Vital Signs Temp 97.5 F L 01/30/18 16:14 Pulse 115 H 01/30/18 16:14 Resp 16 01/30/18 16:14 BP 113/49 L 01/30/18 16:14 Pulse Ox 96 01/30/18 18:28 - Labs Result Diagrams: 01/30/18 17:15 01/30/18 17:15 Labs: Laboratory Results - last 24 hr 01/30/18 01/30/18 01/30/18 17:15 17:15 17:15 WBC 15.3 H D RBC 3.78 L Hgb 9.1 L Hct 29.0 L MCV 76.8 L D MCH 24.0 L MCHC 31.3 L RDW 20.1 H Plt Count 289 MPV 7.8 Neut % (Auto) 89.0 H Lymph % (Auto) 2.7 L [place] % (Auto) 7.6 Eos % (Auto) 0.3 Baso % (Auto) 0.4 Neut # (Auto) 13.6 H Lymph # (Auto) 0.4 L [place] # (Auto) 1.2 H Eos # (Auto) 0.0 Baso # (Auto) 0.1 PT INR APTT Sodium 135 Potassium 4.5 Chloride 99 Carbon Dioxide 27 Anion Gap 14 BUN 42 H Creatinine 1.1 Est GFR ( Amer) 58 Est GFR (Non-Af Amer) 48 Random Glucose 162 H Lactic Acid 1.4 Calcium 9.5 Total Bilirubin 1.1 AST 32 ALT 26 Alkaline Phosphatase 97 Total Protein 6.8 Albumin 3.4 L Globulin 3.4 Albumin/Globulin Ratio 1.0 01/30/18 17:15 WBC RBC Hgb Hct MCV MCH MCHC RDW Plt Count MPV Neut % (Auto) Lymph % (Auto) [place] % (Auto) Eos % (Auto) Baso % (Auto) Neut # (Auto) Lymph # (Auto) [place] # (Auto) Eos # (Auto) Baso # (Auto) PT 13.3 H INR 1.2 APTT 25.4 L Sodium Potassium Chloride Carbon Dioxide Anion Gap BUN Creatinine Est GFR ( Amer) Est GFR (Non-Af Amer) Random Glucose Lactic Acid Calcium Total Bilirubin AST ALT Alkaline Phosphatase Total Protein Albumin Globulin Albumin/Globulin Ratio Assessment & Plan - Assessment and Plan (Free Text) Assessment: 77 year old non compliant female with lower extremity cellulitis with lower extremity non healing partial thickness and unstageable ulcerations 2/2 multiple etiologies including DM, PVD, and swelling Plan: Patient seen and evaluated Labs, vitals reviewed Discussed plan with Dr. Briseno -Patient may need more aggressive treatment, involving surgical intervention such as BKA, for worsening lower extremity ulcerations, present with rest pain; pain only relieved by placing in dependent position, will speak to patient regarding more aggressive treatment during rounds tomorrow in AM Wound culture taken Cleansed LE ulceration with saline, pat dry, wrapped with dsd, kerlix Duplex ordered- pending ID Dr. Daniels recommendations appreciated Will continue to follow patient while in house Thank you for the consult - Date & Time Date: 01/30/18 Time: 18:00
--- NOTE | 2018-01-30 18:47 | RAD ---
HISTORY: tachycardia COMPARISON: 12/19/2017 FINDINGS: LUNGS: The lungs are clear. PLEURA: There is blunting of the left costophrenic angle, no pneumothorax apparent. CARDIOVASCULAR: There is persistent moderate cardio OSSEOUS STRUCTURES: No significant abnormalities. VISUALIZED UPPER ABDOMEN: Normal. OTHER FINDINGS: None. IMPRESSION: Persistent cardiomegaly and question of small left pleural effusion. No lobar pneumonia.
[2018-01-30 19:31] LABS: ANISOCYTOSIS MODERATE; BANDS 2 % (0-2); BASOPHIL 1 % (0-2); EOSINOPHIL 1 % (0-7); HYPOCHROMIC SLIGHT; LYMPHOCYTE 4 % (20-50); METAMYELOCYTE 1 % (0-0); MICROCYTOSIS SLIGHT; MONOCYTE 5 % (0-10); NEUTROPHIL 86 % (42-75); OVALOCYTES SLIGHT; PLATELET ESTIMATE NORMAL (NORMAL); POIKILOCYTOSIS SLIGHT; TOTAL CELLS COUNTED 100
[2018-01-30 19:32] LABS: POLYCHROMIC SLIGHT; TOXIC GRANULATION PRESENT
[2018-01-30] MEDS ORDERED: Piperacillin/Tazobact 3.375 gm Inj IVPB ONE (20:57)
--- NOTE | 2018-01-30 21:17 | CP.PCM.HP ---
History of Present Illness - History of Present Illness History of Present Illness: 77 yo admitted for LE ulcers cellulitis MARY studies at [facility] severe arterial insufficiency Pt noncompliant and refusing treatment?? Past Patient History - Infectious Disease Hx of Infectious Diseases: None - Past Medical History & Family History Past Medical History?: Yes - Past Social History Smoking Status: Former Smoker - CARDIAC Hx Congestive Heart Failure: Yes Hx Hypercholesterolemia: Yes Hx Hypertension: Yes Hx Peripheral Edema: Yes - PULMONARY Hx Bronchitis: Yes Hx Chronic Obstructive Pulmonary Disease (COPD): Yes Hx Pneumonia: Yes - NEUROLOGICAL Other/Comment: Paresthesias of both feet - HEENT Hx HEENT Problems: No - RENAL Hx Chronic Kidney Disease: Yes Hx Kidney Stones: Yes (kidney stone removal) - ENDOCRINE/METABOLIC Hx Hyperthyroidism: Yes - HEMATOLOGICAL/ONCOLOGICAL Hx Anemia: Yes Hx Human Immunodeficiency Virus (HIV): No - INTEGUMENTARY Hx Dermatological Problems: Yes Other/Comment: Dependent edema of both lower extremities with blister formation - MUSCULOSKELETAL/RHEUMATOLOGICAL Hx Falls: Yes - GASTROINTESTINAL Hx Gastrointestinal Disorders: No - GENITOURINARY/GYNECOLOGICAL Hx Genitourinary Disorders: No - PSYCHIATRIC Hx Psychophysiologic Disorder: No Hx Substance Use: No - SURGICAL HISTORY Hx Appendectomy: Yes - ANESTHESIA Hx Anesthesia: Yes Hx Anesthesia Reactions: No Hx Malignant Hyperthermia: No Meds Allergies/Adverse Reactions: Allergies Allergy/AdvReac Type Severity Reaction Status Date / Time No Known Allergies Allergy Verified 12/18/17 16:07 Physical Exam - Respiratory Exam Respiratory Exam: NORMAL BREATHING PATTERN - Cardiovascular Exam Cardiovascular Exam: REGULAR RHYTHM - GI/Abdominal Exam GI & Abdominal Exam: Normal Bowel Sounds Results - Vital Signs Recent Vital Signs: Last Vital Signs Temp 97.5 F L 01/30/18 16:14 Pulse 115 H 01/30/18 16:14 Resp 16 01/30/18 16:14 BP 113/49 L 01/30/18 16:14 Pulse Ox 96 01/30/18 18:28 - Labs Result Diagrams: 01/30/18 17:15 01/30/18 17:15 Labs: Laboratory Results - last 24 hr 01/30/18 01/30/18 01/30/18 17:15 17:15 17:15 WBC 15.3 H D RBC 3.78 L Hgb 9.1 L Hct 29.0 L MCV 76.8 L D MCH 24.0 L MCHC 31.3 L RDW 20.1 H Plt Count 289 MPV 7.8 Neut % (Auto) 89.0 H Lymph % (Auto) 2.7 L [place] % (Auto) 7.6 Eos % (Auto) 0.3 Baso % (Auto) 0.4 Neut # (Auto) 13.6 H Lymph # (Auto) 0.4 L [place] # (Auto) 1.2 H Eos # (Auto) 0.0 Baso # (Auto) 0.1 Neutrophils % (Manual) 86 H Band Neutrophils % 2 Lymphocytes % (Manual) 4 L Monocytes % (Manual) 5 Eosinophils % (Manual) 1 Basophils % (Manual) 1 Metamyelocytes % 1 H Toxic Granulation Present Platelet Estimate Normal Polychromasia Slight Hypochromasia (manual) Slight Poikilocytosis (manual Slight Anisocytosis (manual) Moderate Microcytosis (manual) Slight Ovalocytes Slight PT INR APTT Sodium 135 Potassium 4.5 Chloride 99 Carbon Dioxide 27 Anion Gap 14 BUN 42 H Creatinine 1.1 Est GFR ( Amer) 58 Est GFR (Non-Af Amer) 48 Random Glucose 162 H Lactic Acid 1.4 Calcium 9.5 Total Bilirubin 1.1 AST 32 ALT 26 Alkaline Phosphatase 97 Total Protein 6.8 Albumin 3.4 L Globulin 3.4 Albumin/Globulin Ratio 1.0 01/30/18 17:15 WBC RBC Hgb Hct MCV MCH MCHC RDW Plt Count MPV Neut % (Auto) Lymph % (Auto) [place] % (Auto) Eos % (Auto) Baso % (Auto) Neut # (Auto) Lymph # (Auto) [place] # (Auto) Eos # (Auto) Baso # (Auto) Neutrophils % (Manual) Band Neutrophils % Lymphocytes % (Manual) Monocytes % (Manual) Eosinophils % (Manual) Basophils % (Manual) Metamyelocytes % Toxic Granulation Platelet Estimate Polychromasia Hypochromasia (manual) Poikilocytosis (manual Anisocytosis (manual) Microcytosis (manual) Ovalocytes PT 13.3 H INR 1.2 APTT 25.4 L Sodium Potassium Chloride Carbon Dioxide Anion Gap BUN Creatinine Est GFR ( Amer) Est GFR (Non-Af Amer) Random Glucose Lactic Acid Calcium Total Bilirubin AST ALT Alkaline Phosphatase Total Protein Albumin Globulin Albumin/Globulin Ratio Assessment & Plan - Assessment and Plan (Free Text) Assessment: Low ext edema cellulitis with blisters- etiol? Arterial insufficiency Venous Insuff?? Infectious?? Hx Serratia G- Leg elevation IV ABX ID Podiatry Surgery Physiatry Psychiatric dx?? Psychiatry CHF Diastolic CAD stress thalium scarring ischemia?? cardiac cath refused?? Cardiology Hx COPD L Pleural effusion Pulmonary Hx Anemia ASA d/c as outpt due to dec Hbg Stool for OB ?? Hematology consult NIDDM Thyroid dx Endo - Date & Time Date: 01/30/18 Time: 22:22
[2018-01-30] MEDS ORDERED: Magnesium Hydroxide Susp 30 ml UD PO PRN (21:53)
--- NOTE | 2018-01-31 07:49 | CP.PCM.PN ---
Subjective - Date & Time of Evaluation Date of Evaluation: 01/31/18 Time of Evaluation: 07:30 - Subjective Subjective: Podiatry Progress Note- Dr. Briseno 77 y.o female with PMH of DM, CAD, CHF, chronic anemia, PVD with history of lower extremity ulcerations with cellulitis and swelling seen and evaluated for multiple LE ulcerations with LE cellulitis. Attending was at bedside during evaluation. Patient was seen sitting in a dependent position with dressing intact with drainage strikethrough. Patient reports pain to the LE. Denies nausea, fever, shortness of breath, chest pains or chills. Objective - Vital Signs/Intake and Output Vital Signs (last 24 hours): Temp Pulse Resp BP Pulse Ox 97.6 F 108 H 18 130/76 99 01/30/18 23:40 01/30/18 23:40 01/30/18 23:40 01/30/18 23:40 01/30/18 23:40 - Medications Medications: Current Medications Acetaminophen (Tylenol 325mg Tab) 650 mg PO Q4 PRN PRN Reason: Pain, Mild (1-3) Acetaminophen (Tylenol 325mg Tab) 650 mg PO Q4 PRN PRN Reason: TEMP >100 Amoxicillin/Clavulanate Potassium (Augmentin 875 Mg-125 Mg Tab) 1 tab PO Q12 [facility]NEY PRN Reason: Protocol Bacitracin (Bacitracin Oint) 1 applic TOP DAILY [facility] Bisacodyl (Dulcolax) 10 mg OK DAILY PRN PRN Reason: Constipation Clopidogrel Bisulfate (Plavix) 75 mg PO DAILY [facility] Docusate Sodium (Colace) 100 mg PO DAILY [facility] Enoxaparin Sodium (Lovenox) 30 mg SC DAILY [facility]NEY PRN Reason: Protocol Famotidine (Pepcid) 20 mg PO DAILY [facility] Ferrous Sulfate (Feosol) 325 mg PO DAILY [facility] Furosemide (Lasix) 20 mg PO DAILY [facility] Glipizide (Glucotrol Xl) 2.5 mg PO DAILY [facility] Home Med (Hydrogen Peroxide [Peroxyl Dental Rinse]) 1 appl TOP MOWEFR [facility]ITTNEY Isosorbide Mononitrate (Imdur Er) 30 mg PO DAILY [facility] Lactobacillus Acidophilus (Bacid Acidophilus) 1 cap PO BID [facility] Magnesium Hydroxide (Milk Of Magnesia) 30 ml PO HS PRN PRN Reason: Constipation Methimazole (Tapazole) 5 mg PO DAILY [facility] Metoprolol Tartrate (Lopressor) 25 mg PO Q12 [facility] Petrolatum (Desitin Maximum Strength Topical 40% Oint) 1 applic TOP QSHIFT [facility] Silver Sulfadiazine (Silvadene 1% 20 Gm) 1 ea TOP Q12 [facility] Tramadol HCl (Ultram) 50 mg PO Q6 PRN PRN Reason: Pain, moderate (4-7) Last Admin: 01/31/18 00:40 Dose: 50 mg - Labs Labs: 01/30/18 17:15 01/30/18 17:15 PT 13.3 Seconds (9.8-13.1) H 01/30/18 17:15 INR 1.2 (0.9-1.2) 01/30/18 17:15 APTT 25.4 Seconds (25.6-37.1) L 01/30/18 17:15 - Constitutional Appears: Non-toxic, No Acute Distress - Extremities Exam Extremities Exam: absent: Calf Tenderness Additional comments: Vasc: DP pulses and PT pulses nonpalpable, +2 pitting edema to bilateral LE, TG warm to warm, CFT < 4 sec to all digits Neuro: Epicritic and protective sensation grossly intact bilaterally Derm: MULTIPLE bilateral lower extremity ulcerations: Necrotic right heel ulceration noted with drainage, malodorous. Ulceration noted measuring 7cm x 6cm x 0.1cm to posterior right leg mid calf with multiple vesicles noted to the medial aspect of the leg. Wound base is mainly fibrotic with necrotic tissue noted, odorous, erythema noted, no tunneling, no probe to bone or tendon exposed Open additional open lysed blister site with superficial ulceration measuring 4cm x 1.5cm x 0.1cm noted to anteromedial left leg. Granular in nature. Ulceration site noted to dorsum of L foot with central fibrotic, measuring 4cm x 4.5cm x 0.2cm. Jennifer wound exhibits epithelization with healthy pink skin edges noted to dorsal left foot ulcer site. malodor present, no fluctuance, no probe to bone, no tunneling or no undermining. Multiple chronic, 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 All blisters continue to weep serous fluid. Multiple ulcerations noted to the entire lower extremity with mixture of fibrotic/necrotic wound base: ulcerations to dorsum of the left digits 1 and 2 with fibrotic base and macerated periwound. Ulcerations to dorsum of right digits 1, 2, 3, 4 with mixture of fibrotic and necrotic base, nail plate from nail bed of digits right 2 and 3 are absent, 4 nail plate is loose,eErythema to the entire LE R>L, odorous, all sites (-) for purulence, fluctuance, probe to bone, tunneling or undermining. Ortho: Helene's sign negative B/L. All ulceration sites are tender to palpation. No other gross musculoskeletal deformities noted - Neurological Exam Neurological Exam: Alert, Awake Assessment and Plan - Assessment and Plan (Free Text) Assessment: 77 year old non compliant female with lower extremity cellulitis with lower extremity non healing partial thickness and unstageable ulcerations 2/2 multiple etiologies including DM, PVD, and swelling Plan: Patient seen and evaluated Labs, vitals reviewed Discussed plan with Dr. Briseno -Patient may need more aggressive treatment, involving surgical intervention such as BKA, for worsening lower extremity ulcerations, present with rest pain; pain only relieved by placing in dependent position Wound culture pending Cleansed LE ulceration with saline, pat dry, wrapped with adaptic dsd, kerlix Will discontinue Silvadene Duplex ordered- pending ID Dr. Daniels recommendations appreciated Ordered CTA of lower extremities Will continue to follow patient while in house
[2018-01-31] MEDS ORDERED: Silver Sulfadiazine 1% Cream (20 gm) TOP SCH (09:00)
[2018-01-31] MEDS ORDERED: Amoxicillin-Clav 875-125 mg Tab PO SCH (09:00)
[2018-01-31] MEDS ORDERED: Sodium Chloride 0.9% 50 ML IV ONE (09:42)
[2018-01-31] MEDS ORDERED: Iodixanol 320 MG/ML 100 ML BOTTLE IV ONE (09:42)
--- NOTE | 2018-01-31 12:39 | PQF GENQUE ---
Dr. Young, ER documented the following information with no mention of this diagnosis in your documentation. Please indicate in your next progress note and/or discharge summary your agreement with senior business consultant or provide clarification that this diagnosis is not a current condition. Diagnosis: Sepsis Documented by: ER Pulse:115->115->115->108->115 WBC:15.3 left shift ER :Clinical Impression : PVD (peripheral vascular disease), Sepsis, Cellulitis, leg H and P: Assessment: Low ext edema cellulitis with blisters- etiol? Arterial insufficiency Venous Insuff?? Infectious?? Hx Serratia G- Leg elevation IV ABX ID Podiatry Surgery Physiatry Psychiatric dx?? Psychiatry CHF Diastolic CAD stress thalium scarring ischemia?? cardiac cath refused?? Cardiology Hx COPD L Pleural effusion Pulmonary Hx Anemia ASA d/c as outpt due to dec Hbg Stool for OB ?? Hematology consult NIDDM Thyroid dx Endo IVAB This form is a permanent part of the medical record Clarification of your documentation is requested to better reflect the severity of illness and intensity of treatment of your patient. Indicators present [] Specify: [] [] Specify: [] [] Specify: [] [] Specify: [] Location in the medical record that reflects the above clinical findings: [] Treatment Provided: [] PHYSICIAN'S RESPONSE Based on your medical judgment of the clinical indicators outlined above please clarify the following: [] Practitioner response [] If unable to determine, please check the box, sign and date. Present On Admission (POA) Indicator: [] Present at the time of admission [] Not present at the time of admission [] Clinically Undetermined In responding to this query, please exercise your independent professional judgment. The fact that a question is asked does not imply that any particular answer is desired or expected. Thank you for your clarification on this documentation. If you have any questions please call. * Thank you, Theresa Page RN ext. #[phone] MTDD
--- NOTE | 2018-01-31 12:53 | CP.PCM.CON ---
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 currently resides in a [facility] , pt stated lately overwhelmed due to her medical condition, reported some days of early insomnia yet no significant changes in sleep or appetite pt reported after being placed on new medications in the hospital for cellulitis she had two episodes of visual hallucinations, seeing a woman next to her , pt denied any current visual hallucinations denied any current other perceptual disturbances, denied any mood symptoms, denied anxiety symptoms pt is alert awake oriented to person, partially to place and time Past Patient History - Infectious Disease Hx of Infectious Diseases: None - Past Medical History & Family History Past Medical History?: Yes - Past Social History Smoking Status: Former Smoker - CARDIAC Hx Cardiac Disorders: Yes Hx Congestive Heart Failure: Yes Hx Hypercholesterolemia: Yes Hx Hypertension: Yes Hx Peripheral Edema: Yes - PULMONARY Hx Respiratory Disorders: Yes Hx Bronchitis: Yes Hx Chronic Obstructive Pulmonary Disease (COPD): Yes Hx Pneumonia: Yes - NEUROLOGICAL Hx Neurological Disorder: Yes Other/Comment: Paresthesias of both feet - HEENT Hx HEENT Problems: No - RENAL Hx Chronic Kidney Disease: Yes - ENDOCRINE/METABOLIC Hx Endocrine Disorders: Yes Hx Hyperthyroidism: Yes - HEMATOLOGICAL/ONCOLOGICAL Hx Blood Disorders: Yes Hx Anemia: Yes Hx Human Immunodeficiency Virus (HIV): No - INTEGUMENTARY Hx Dermatological Problems: Yes Hx Cellulitis: Yes - MUSCULOSKELETAL/RHEUMATOLOGICAL Hx Musculoskeletal Disorders: Yes Hx Falls: Yes - GASTROINTESTINAL Hx Gastrointestinal Disorders: No - GENITOURINARY/GYNECOLOGICAL Hx Genitourinary Disorders: No - PSYCHIATRIC Hx Psychophysiologic Disorder: No Hx Substance Use: No - SURGICAL HISTORY Hx Surgeries: Yes Hx Appendectomy: Yes - ANESTHESIA Hx Anesthesia: Yes Hx Anesthesia Reactions: No Hx Malignant Hyperthermia: No Has any member of the family had a problem w/ anesthesia?: No Meds Allergies/Adverse Reactions: Allergies Allergy/AdvReac Type Severity Reaction Status Date / Time No Known Allergies Allergy Verified 12/18/17 16:07 - Medications Medications: Current Medications Acetaminophen (Tylenol 325mg Tab) 650 mg PO Q4 PRN PRN Reason: Pain, Mild (1-3) Acetaminophen (Tylenol 325mg Tab) 650 mg PO Q4 PRN PRN Reason: TEMP >100 Amoxicillin/Clavulanate Potassium (Augmentin 875 Mg-125 Mg Tab) 1 tab PO Q12 [facility] PRN Reason: Protocol Bacitracin (Bacitracin Oint) 1 applic TOP DAILY [facility] Bisacodyl (Dulcolax) 10 mg [place] DAILY PRN PRN Reason: Constipation Clopidogrel Bisulfate (Plavix) 75 mg PO DAILY [facility] Docusate Sodium (Colace) 100 mg PO DAILY [facility] Enoxaparin Sodium (Lovenox) 30 mg SC DAILY [facility] PRN Reason: Protocol Famotidine (Pepcid) 20 mg PO DAILY [facility] Ferrous Sulfate (Feosol) 325 mg PO DAILY [facility] Furosemide (Lasix) 20 mg PO DAILY [facility] Glipizide (Glucotrol Xl) 2.5 mg PO DAILY [facility] Home Med (Hydrogen Peroxide [Peroxyl Dental Rinse]) 1 appl TOP MOWEFR [facility] Vancomycin HCl 1 gm/ Sodium (Chloride) 250 mls @ 166.667 mls/hr IVPB DAILY [facility] PRN Reason: Protocol Piperacillin Sod/Tazobactam (Sod 3.375 gm/ Sodium Chloride) 100 mls @ 100 mls/ hr IVPB Q8 [facility] PRN Reason: Protocol Isosorbide Mononitrate (Imdur Er) 30 mg PO DAILY [facility] Ketorolac Tromethamine (Toradol) 15 mg IVP Q6 PRN PRN Reason: Pain, severe (8-10) Lactobacillus Acidophilus (Bacid Acidophilus) 1 cap PO BID [facility] Magnesium Hydroxide (Milk Of Magnesia) 30 ml PO HS PRN PRN Reason: Constipation Methimazole (Tapazole) 5 mg PO DAILY [facility] Metoprolol Tartrate (Lopressor) 25 mg PO Q12 [facility] Petrolatum (Desitin Maximum Strength Topical 40% Oint) 1 applic TOP QSHIFT [facility] Silver Sulfadiazine (Silvadene 1% 20 Gm) 1 ea TOP Q12 [facility] Physical Exam - Psychiatric Exam Additional comments: pt seen in bed, calm cooperative good eye contact speech soft , mood reported overwhelmed affect appropriate to thought content, thought form circumstantial, denied any current suicidal or homicidal ideation denied any current perceptual disturbances except for past two episodes , alert awake oriented to person and partially to place , not to time stating the year is 1979 Results - Vital Signs Recent Vital Signs: Last Vital Signs Temp 97.6 F 01/31/18 08:23 Pulse 115 H 01/31/18 08:23 Resp 20 01/31/18 08:23 BP 111/66 01/31/18 08:23 Pulse Ox 93 L 01/31/18 08:23 - Labs Result Diagrams: 01/30/18 17:15 01/30/18 17:15 Labs: Laboratory Results - last 24 hr 01/30/18 01/30/18 01/30/18 17:15 17:15 17:15 WBC 15.3 H D RBC 3.78 L Hgb 9.1 L Hct 29.0 L MCV 76.8 L D MCH 24.0 L MCHC 31.3 L RDW 20.1 H Plt Count 289 MPV 7.8 Neut % (Auto) 89.0 H Lymph % (Auto) 2.7 L [place] % (Auto) 7.6 Eos % (Auto) 0.3 Baso % (Auto) 0.4 Neut # (Auto) 13.6 H Lymph # (Auto) 0.4 L [place] # (Auto) 1.2 H Eos # (Auto) 0.0 Baso # (Auto) 0.1 Neutrophils % (Manual) 86 H Band Neutrophils % 2 Lymphocytes % (Manual) 4 L Monocytes % (Manual) 5 Eosinophils % (Manual) 1 Basophils % (Manual) 1 Metamyelocytes % 1 H Toxic Granulation Present Platelet Estimate Normal Polychromasia Slight Hypochromasia (manual) Slight Poikilocytosis (manual Slight Anisocytosis (manual) Moderate Microcytosis (manual) Slight Ovalocytes Slight PT INR APTT Sodium 135 Potassium 4.5 Chloride 99 Carbon Dioxide 27 Anion Gap 14 BUN 42 H Creatinine 1.1 Est GFR ( Amer) 58 Est GFR (Non-Af Amer) 48 Random Glucose 162 H Lactic Acid 1.4 Calcium 9.5 Total Bilirubin 1.1 AST 32 ALT 26 Alkaline Phosphatase 97 Total Protein 6.8 Albumin 3.4 L Globulin 3.4 Albumin/Globulin Ratio 1.0 01/30/18 17:15 WBC RBC Hgb Hct MCV MCH MCHC RDW Plt Count MPV Neut % (Auto) Lymph % (Auto) [place] % (Auto) Eos % (Auto) Baso % (Auto) Neut # (Auto) Lymph # (Auto) [place] # (Auto) Eos # (Auto) Baso # (Auto) Neutrophils % (Manual) Band Neutrophils % Lymphocytes % (Manual) Monocytes % (Manual) Eosinophils % (Manual) Basophils % (Manual) Metamyelocytes % Toxic Granulation Platelet Estimate Polychromasia Hypochromasia (manual) Poikilocytosis (manual Anisocytosis (manual) Microcytosis (manual) Ovalocytes PT 13.3 H INR 1.2 APTT 25.4 L Sodium Potassium Chloride Carbon Dioxide Anion Gap BUN Creatinine Est GFR ( Amer) Est GFR (Non-Af Amer) Random Glucose Lactic Acid Calcium Total Bilirubin AST ALT Alkaline Phosphatase Total Protein Albumin Globulin Albumin/Globulin Ratio Assessment & Plan - Assessment and Plan (Free Text) Assessment: 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
[2018-01-31] MEDS: Piperacillin/Tazobact 3.375 GM in Sodium Chloride 0.9% 100 ML IVPB SCH ×2 (13:00→18:35)
--- NOTE | 2018-01-31 13:05 | CT ---
PROCEDURE: CT HEAD WITHOUT CONTRAST. HISTORY: r/ rule out mass. Dementia. COMPARISON: None available. TECHNIQUE: Axial computed tomography images were obtained through the head/brain without intravenous contrast. Radiation dose: Total exam DLP = 770.03 mGy-cm. This CT exam was performed using one or more of the following dose reduction techniques: Automated exposure control, adjustment of the mA and/or kV according to patient size, and/or use of iterative reconstruction technique. . Note that the examination is somewhat limited due to motion an streak/beam hardening artifact. FINDINGS: HEMORRHAGE: No acute parenchymal, subarachnoid or extra-axial hemorrhage hemorrhage. BRAIN: Moderate diffuse/confluent chronic periventricular white matter ischemic changes seen extending peripherally into the deep and subcortical white matter both cerebral hemispheres. 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 There may also be a few scattered chronic bilateral basal nuclei lacunar type infarcts. . No obvious parenchymal nor extra-axial mass or collection seen on this noncontrast study Moderate to fairly significant generalized volume loss. Vascular calcifications both carotid siphons. VENTRICLES: No obstructive hydrocephalus. CALVARIUM: No acute calvarial fractures. PARANASAL SINUSES: Unremarkable as visualized. No significant inflammatory changes. MASTOID AIR CELLS: Unremarkable as visualized. No inflammatory changes. OTHER FINDINGS: None. IMPRESSION: Limited study as above. No acute intracranial hemorrhage. Moderate diffuse/confluent chronic periventricular white matter ischemic changes seen extending peripherally into the deep and subcortical white matter both cerebral hemispheres. 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 There may also be a few scattered chronic bilateral basal nuclei lacunar type infarcts. . No obvious parenchymal nor extra-axial mass or collection seen on this noncontrast study Moderate to fairly significant generalized volume loss. Vascular calcifications both carotid siphons.
[2018-01-31] MEDS: GlipiZIDE 2.5 mg SR Tab PO SCH (13:38)
--- NOTE | 2018-01-31 13:38 | CP.PCM.CON ---
History of Present Illness - History of Present Illness History of Present Illness: 77 y.o female with PMH of DM, CAD, CHF, chronic anemia, PVD with history of lower extremity ulcerations with cellulitis and swelling admitted with bilateral lower extremity ulcerations with swelling and cellulitis. patient reports to ED from [facility] at [facility] with worsening lower extremity ulcerations with new bullae formation to the LE. referred for ID eval and antibiotic management Review of Systems - Review of Systems All systems: reviewed and no additional remarkable complaints except - Constitutional Constitutional: As Per HPI - EENT Eyes: absent: As Per HPI, Blind Spots, Blurred Vision, Change in Vision, Decreased Night Vision, Diplopia, Discharge, Dry Eye, Exophthalmos, Floaters, Irritation, Itchy Eyes, Loss of Peripheral Vision, Pain, Photophobia, Requires Corrective Lenses, Sees Flashes, Spots in Vision, Tunnel Vision, Other Visual Disturbances, Loss of Vision, Other Ears: absent: As Per HPI, Decreased Hearing, Ear Discharge, Ear Pain, Tinnitus, Abnormal Hearing, Disequilibrium, Dizziness, Other Nose/Mouth/Throat: absent: As Per HPI, Epistaxis, Nasal Congestion, Nasal Discharge, Nasal Obstruction, Nasal Trauma, Nose Pain, Post Nasal Drip, Sinus Pain, Sinus Pressure, Bleeding Gums, Change in Voice, Dental Pain, Dry Mouth, Dysphagia, Halitosis, Hoarsness, Lip Swelling, Mouth Lesions, Mouth Pain, Odynophagia, Sore Throat, Throat Swelling, Tongue Swelling, Facial Pain, Neck Pain, Neck Mass, Other - Cardiovascular Cardiovascular: absent: As Per HPI, Acrocyanosis, Chest Pain, Chest Pain at Rest , Chest Pain with Activity, Claudication, Diaphoresis, Dyspnea, Dyspnea on Exertion, Edema, Irregular Heart Rhythm, Pain Radiating to Arm/Neck/Jaw, Leg Edema, Leg Ulcers, Lightheadedness, Orthopnea, Palpitations, Paroxysmal Nocturnal Dyspnea, Pedal Edema, Radiating Pain, Rapid Heart Rate, Slow Heart Rate, Syncope, Other - Respiratory Respiratory: absent: As Per HPI, Cough, Dyspnea, Hemoptysis, Dyspnea on Exertion , Wheezing, Snoring, Stridor, Pain on Inspiration, Chest Congestion, Excessive Mucous Production, Change in Mucous Color, Pain with Coughing, Other - Gastrointestinal Gastrointestinal: absent: As Per HPI, Abdominal Pain, Belching, Bloating, Change in Bowel Habits, Change in Stool Character, Coffee Ground Emesis, Constipation, Cramping, Diarrhea, Dyspepsia, Dysphagia, Early Satiety, Excessive Flatus, Fecal Incontinence, Heartburn, Hematemesis, Hematochezia, Loose Stools, Melena, Nausea, Odynophagia, Temesmus, Vomiting, Other - Genitourinary Genitourinary: absent: As Per HPI, Change in Urinary Stream, Difficulty Urinating, Dysuria, Flank Pain, Hematuria, Pyuria, Nocturia, Urinary Incontinence, Urinary Frequency, Urinary Hesitance, Urinary Urgency, Voiding Freq/Small Amts, Freq UTI, Hx Renal/Bladder Calculi, Hx /Renal Surgery, Bladder Distension, Other - Reproductive: Female Reproductive:Female: absent: As Per HPI, Amenorrhea, Amenorrhea/ Control, Currently Menstual, Cycle <21 Days, Cycle >35 Days, Cycle Variable, Menses 1-7 Days, Menses >/= 8 Days, Menses Variable, Cycle > 4 Weeks Between, No Menses for 6 Months, Heavy Menses, Light Menses, Normal Menses, Spotting Between Cycles , S/P Hysterectomy, Menopausal, Post Menopausal, Premenarche, Abnormal Vaginal Bleeding, Dysmenorrhea, Dyspareunia, Genital Lesions, Genital Pruritis, Pelvic Pain, Prolapse Symptoms, Sexual Dysfunction, Vaginal Discharge, Vaginal Dryness , Vaginal Odor, Vaginal Pruritis, Other - Menstruation Menstruation: absent: As Per HPI, Amenorrhea, Amenorrhea/ Control, Currently Menstual, Cycle <21 Days, Cycle >35 Days, Cycle Variable, Menses 1-7 Days, Menses >/= 8 Days, Menses Variable, Cycle > 4 Weeks Between, No Menses for 6 Months, Heavy Menses, Light Menses, Normal Menses, Spotting Between Cycles , S/P Hysterectomy, Menopausal, Post Menopausal, Premenarche, Abnormal Vaginal Bleeding, Dysmenorrhea, Other - Musculoskeletal Musculoskeletal: As Per HPI - Integumentary Integumentary: As Per HPI, Skin Pain, Wounds - Neurological Neurological: As Per HPI - Psychiatric Psychiatric: As Per HPI, Hallucinations - Endocrine Endocrine: absent: As Per HPI, Change in Body Appearance, Change in Libido, Cold Intolorance, Deepening of Voice, Excessive Sweating, Fatigue, Flushing, Heat Intolorance, Increase in Ring/Shoe/Hat Size, Palpitations, Polydipsia, Polyphagia, Polyuria, Other - Hematologic/Lymphatic Hematologic: absent: As Per HPI, Easy Bleeding, Easy Bruising, Lymphadenopathy, Other Past Patient History - Infectious Disease Hx of Infectious Diseases: None - Past Medical History & Family History Past Medical History?: Yes - Past Social History Smoking Status: Former Smoker - CARDIAC Hx Cardiac Disorders: Yes Hx Congestive Heart Failure: Yes Hx Hypercholesterolemia: Yes Hx Hypertension: Yes Hx Peripheral Edema: Yes - PULMONARY Hx Respiratory Disorders: Yes Hx Bronchitis: Yes Hx Chronic Obstructive Pulmonary Disease (COPD): Yes Hx Pneumonia: Yes - NEUROLOGICAL Hx Neurological Disorder: Yes Other/Comment: Paresthesias of both feet - HEENT Hx HEENT Problems: No - RENAL Hx Chronic Kidney Disease: Yes - ENDOCRINE/METABOLIC Hx Endocrine Disorders: Yes Hx Hyperthyroidism: Yes - HEMATOLOGICAL/ONCOLOGICAL Hx Blood Disorders: Yes Hx Anemia: Yes Hx Human Immunodeficiency Virus (HIV): No - INTEGUMENTARY Hx Dermatological Problems: Yes Hx Cellulitis: Yes - MUSCULOSKELETAL/RHEUMATOLOGICAL Hx Musculoskeletal Disorders: Yes Hx Falls: Yes - GASTROINTESTINAL Hx Gastrointestinal Disorders: No - GENITOURINARY/GYNECOLOGICAL Hx Genitourinary Disorders: No - PSYCHIATRIC Hx Psychophysiologic Disorder: No Hx Substance Use: No - SURGICAL HISTORY Hx Surgeries: Yes Hx Appendectomy: Yes - ANESTHESIA Hx Anesthesia: Yes Hx Anesthesia Reactions: No Hx Malignant Hyperthermia: No Has any member of the family had a problem w/ anesthesia?: No Meds Allergies/Adverse Reactions: Allergies Allergy/AdvReac Type Severity Reaction Status Date / Time No Known Allergies Allergy Verified 12/18/17 16:07 - Medications Medications: Current Medications Acetaminophen (Tylenol 325mg Tab) 650 mg PO Q4 PRN PRN Reason: Pain, Mild (1-3) Acetaminophen (Tylenol 325mg Tab) 650 mg PO Q4 PRN PRN Reason: TEMP >100 Amoxicillin/Clavulanate Potassium (Augmentin 875 Mg-125 Mg Tab) 1 tab PO Q12 [facility] PRN Reason: Protocol Bacitracin (Bacitracin Oint) 1 applic TOP DAILY [facility] Bisacodyl (Dulcolax) 10 mg [place] DAILY PRN PRN Reason: Constipation Clopidogrel Bisulfate (Plavix) 75 mg PO DAILY [facility] Docusate Sodium (Colace) 100 mg PO DAILY [facility] Enoxaparin Sodium (Lovenox) 30 mg SC DAILY [facility] PRN Reason: Protocol Famotidine (Pepcid) 20 mg PO DAILY [facility] Ferrous Sulfate (Feosol) 325 mg PO DAILY [facility] Furosemide (Lasix) 20 mg PO DAILY [facility] Glipizide (Glucotrol Xl) 2.5 mg PO DAILY [facility] Home Med (Hydrogen Peroxide [Peroxyl Dental Rinse]) 1 appl TOP MOWEFR [facility] Vancomycin HCl 1 gm/ Sodium (Chloride) 250 mls @ 166.667 mls/hr IVPB DAILY [facility] PRN Reason: Protocol Piperacillin Sod/Tazobactam (Sod 3.375 gm/ Sodium Chloride) 100 mls @ 100 mls/ hr IVPB Q8 [facility] PRN Reason: Protocol Isosorbide Mononitrate (Imdur Er) 30 mg PO DAILY [facility] Ketorolac Tromethamine (Toradol) 15 mg IVP Q6 PRN PRN Reason: Pain, severe (8-10) Lactobacillus Acidophilus (Bacid Acidophilus) 1 cap PO BID [facility] Magnesium Hydroxide (Milk Of Magnesia) 30 ml PO HS PRN PRN Reason: Constipation Methimazole (Tapazole) 5 mg PO DAILY [facility] Metoprolol Tartrate (Lopressor) 25 mg PO Q12 [facility] Petrolatum (Desitin Maximum Strength Topical 40% Oint) 1 applic TOP QSHIFT [facility] Silver Sulfadiazine (Silvadene 1% 20 Gm) 1 ea TOP Q12 [facility] Physical Exam - Constitutional Appears: Non-toxic - Head Exam Head Exam: NORMOCEPHALIC - Eye Exam Eye Exam: absent: Scleral icterus - ENT Exam ENT Exam: Mucous Membranes Dry, Normal External Ear Exam - Neck Exam Neck exam: Negative for: Lymphadenopathy - Respiratory Exam Respiratory Exam: Decreased Breath Sounds, Clear to Auscultation Bilateral - Cardiovascular Exam Cardiovascular Exam: REGULAR RHYTHM, +S1, +S2 - GI/Abdominal Exam GI & Abdominal Exam: Diminished Bowel Sounds, Soft. absent: Tenderness - Rectal Exam Rectal Exam: Deferred - Exam Exam: NORMAL INSPECTION - Extremities Exam Extremities exam: Positive for: calf tenderness, pedal edema, tenderness. Negative for: normal inspection, pedal pulses present Additional comments: Vasc: DP pulses and PT pulses nonpalpable, +2 pitting edema to bilateral LE, TG warm to warm, CFT < 4 sec to all digits Neuro: Epicritic and protective sensation grossly intact bilaterally Derm: Multiple chronic, 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 All blisters continue to weep serous fluid. Ulceration noted measuring 7cm x 6cm x 0.1cm to posterior right leg mid calf with multiple vesicles noted to the medial aspect of the leg. Wound base is mainly fibrotic with mild necrotic tissue noted Open additional open lysed blister site with superficial ulceration measuring 4cm x 1.5cm x 0.1cm noted to anteromedial left leg. Granular in nature. Ulceration site noted to dorsum of L foot with central fibrotic, measuring 4cm x 4.5cm x 0.2cm. Jennifer wound exhibits epithelization with healthy pink skin edges noted to dorsal left foot ulcer site. All sites (-) for purulence, malodor , fluctuance, probe to bone, tunneling or undermining. Multiple ulcerations noted to the entire lower extremity with wound base mainly fibrotic: ulcerations to dorsum of the left digits 1 and 2 with fibrotic base and macerated periwound. Ulcerations to dorsum of right digits 1, 2, 3, 4 with mixture of fibrotic and necrotic base, nail plate from nail bed of digits right 2 and 3 are absent. Erythema to the entire LE R>L, all sites (-) for purulence, malodor, fluctuance, probe to bone, tunneling or undermining. Ortho: Helene's sign negative B/L. All open blister sites are tender to palpation. No other gross musculoskeletal deformities noted - Back Exam Back exam: absent: CVA tenderness (L), CVA tenderness (R) - Neurological Exam Neurological exam: Alert, CN II-XII Intact, Oriented x3, Reflexes Normal - Psychiatric Exam Psychiatric exam: Depressed - Skin Skin Exam: Dry, Erythema Results - Vital Signs Recent Vital Signs: Last Vital Signs Temp 97.6 F 01/31/18 08:23 Pulse 115 H 01/31/18 08:23 Resp 20 01/31/18 08:23 BP 111/66 01/31/18 08:23 Pulse Ox 93 L 01/31/18 08:23 - Labs Result Diagrams: 01/30/18 17:15 01/30/18 17:15 Labs: Laboratory Results - last 24 hr 01/30/18 01/30/18 01/30/18 17:15 17:15 17:15 WBC 15.3 H D RBC 3.78 L Hgb 9.1 L Hct 29.0 L MCV 76.8 L D MCH 24.0 L MCHC 31.3 L RDW 20.1 H Plt Count 289 MPV 7.8 Neut % (Auto) 89.0 H Lymph % (Auto) 2.7 L [place] % (Auto) 7.6 Eos % (Auto) 0.3 Baso % (Auto) 0.4 Neut # (Auto) 13.6 H Lymph # (Auto) 0.4 L [place] # (Auto) 1.2 H Eos # (Auto) 0.0 Baso # (Auto) 0.1 Neutrophils % (Manual) 86 H Band Neutrophils % 2 Lymphocytes % (Manual) 4 L Monocytes % (Manual) 5 Eosinophils % (Manual) 1 Basophils % (Manual) 1 Metamyelocytes % 1 H Toxic Granulation Present Platelet Estimate Normal Polychromasia Slight Hypochromasia (manual) Slight Poikilocytosis (manual Slight Anisocytosis (manual) Moderate Microcytosis (manual) Slight Ovalocytes Slight PT INR APTT Sodium 135 Potassium 4.5 Chloride 99 Carbon Dioxide 27 Anion Gap 14 BUN 42 H Creatinine 1.1 Est GFR ( Amer) 58 Est GFR (Non-Af Amer) 48 Random Glucose 162 H Lactic Acid 1.4 Calcium 9.5 Total Bilirubin 1.1 AST 32 ALT 26 Alkaline Phosphatase 97 Total Protein 6.8 Albumin 3.4 L Globulin 3.4 Albumin/Globulin Ratio 1.0 01/30/18 17:15 WBC RBC Hgb Hct MCV MCH MCHC RDW Plt Count MPV Neut % (Auto) Lymph % (Auto) [place] % (Auto) Eos % (Auto) Baso % (Auto) Neut # (Auto) Lymph # (Auto) [place] # (Auto) Eos # (Auto) Baso # (Auto) Neutrophils % (Manual) Band Neutrophils % Lymphocytes % (Manual) Monocytes % (Manual) Eosinophils % (Manual) Basophils % (Manual) Metamyelocytes % Toxic Granulation Platelet Estimate Polychromasia Hypochromasia (manual) Poikilocytosis (manual Anisocytosis (manual) Microcytosis (manual) Ovalocytes PT 13.3 H INR 1.2 APTT 25.4 L Sodium Potassium Chloride Carbon Dioxide Anion Gap BUN Creatinine Est GFR ( Amer) Est GFR (Non-Af Amer) Random Glucose Lactic Acid Calcium Total Bilirubin AST ALT Alkaline Phosphatase Total Protein Albumin Globulin Albumin/Globulin Ratio Assessment & Plan (1) Cellulitis, leg Status: Acute (2) PVD (peripheral vascular disease) Status: Acute Priority: High (3) Sepsis Status: Acute - Assessment and Plan (Free Text) Assessment: hallucinations/ delusions are not clearly related to antibiotics patient has severe PVD with ulcers and cellulitis Vascular and podiatry on board cont IV antibiotics and wound care poor prognosis
[2018-01-31] MEDS: Enoxaparin 30 mg Syringe SC SCH (13:40)
[2018-01-31] MEDS: methIMAzole 5 MG TAB PO SCH (13:41)
[2018-01-31] MEDS: Lactobacillus Acidophilus 500 MU Cap PO SCH ×2 (13:47→18:31)
--- NOTE | 2018-01-31 14:11 | PQF GENQUE ---
Dr. Young, Please specify the acuity of diastolic heart failure in your progress notes: ACUITY: Acute Chronic Acute on chronic Other (please specify) Clinically unable to determine Unknown H and P: Dxs. include: CHF Diastolic CAD stress thalium scarring ischemia?? cardiac cath refused?? Cardiology Lasix 20 mg oral daily This form is a permanent part of the medical record Clarification of your documentation is requested to better reflect the severity of illness and intensity of treatment of your patient. Indicators present [] Specify: [] [] Specify: [] [] Specify: [] [] Specify: [] Location in the medical record that reflects the above clinical findings: [] Treatment Provided: [] PHYSICIAN'S RESPONSE Based on your medical judgment of the clinical indicators outlined above please clarify the following: [] Practitioner response [] If unable to determine, please check the box, sign and date. Present On Admission (POA) Indicator: [] Present at the time of admission [] Not present at the time of admission [] Clinically Undetermined In responding to this query, please exercise your independent professional judgment. The fact that a question is asked does not imply that any particular answer is desired or expected. Thank you for your clarification on this documentation. If you have any questions please call. * Thank you, Theresa Page RN ext. #[phone] [facility]
--- NOTE | 2018-01-31 14:15 | PQF GENQUE ---
Dr. Young, Please clarify the stage of the chronic kidney disease: if known Stage 1 Stage 2 (mild) Stage 3 (moderate) Stage 4 (severe) Stage 5 Other (please specify) Clinically unable to determine Unknown BLOOD UREA NITROGEN(mg/dl) 42H CREATININE(mg/dl) 1.1 GFR -ZIMBABWEAN 58 GFR NON- 48 H and P: - RENAL Hx Chronic Kidney Disease: Yes CREATININE(mg/dl) 1.1 GFR -ZIMBABWEAN 58 GFR NON- 48 This form is a permanent part of the medical record Clarification of your documentation is requested to better reflect the severity of illness and intensity of treatment of your patient. Indicators present [] Specify: [] [] Specify: [] [] Specify: [] [] Specify: [] Location in the medical record that reflects the above clinical findings: [] Treatment Provided: [] PHYSICIAN'S RESPONSE Based on your medical judgment of the clinical indicators outlined above please clarify the following: [] Practitioner response [] If unable to determine, please check the box, sign and date. Present On Admission (POA) Indicator: [] Present at the time of admission [] Not present at the time of admission [] Clinically Undetermined In responding to this query, please exercise your independent professional judgment. The fact that a question is asked does not imply that any particular answer is desired or expected. Thank you for your clarification on this documentation. If you have any questions please call. * Thank you, Theresa Page RN ext. #[phone] MTDD
--- NOTE | 2018-01-31 15:04 | CP.PCM.CON ---
History of Present Illness - History of Present Illness History of Present Illness: Dr Berrios PMR consultation on Pat Philip, born 1940 who has been admitted again to [facility]. I had been seeing her at [facility] for DEBRA and wound care but was non-compliant and the wounds have worsened. Severe PVD and arterial disease with extensive necrosis and cool extremities with very poor expected outcome and a BKA will likely not be sufficient. She will likely need bilateral AKA but I will defer to the surgeon on the matter obviously. I have discussed with Dr Daniels and the wound nurse and floor nurse in detail. She has a sacral stage II as well with some erythema that is not entirely fungal in appearance. She is resistant to help and dressing changes and had to be coaxed. Review of Systems - Constitutional Constitutional: absent: Chills - EENT Eyes: absent: Change in Vision Ears: absent: Ear Discharge, Ear Pain Nose/Mouth/Throat: absent: Nasal Congestion - Cardiovascular Cardiovascular: absent: Chest Pain - Respiratory Respiratory: absent: Hemoptysis - Gastrointestinal Gastrointestinal: absent: Belching - Musculoskeletal Musculoskeletal: Abnormal Gait - Integumentary Integumentary: Non-Healing Lesions, Skin Ulcer, Sores, Wounds - Psychiatric Psychiatric: Behavioral Changes, Paranoia Past Patient History - Infectious Disease Hx of Infectious Diseases: None - Past Medical History & Family History Past Medical History?: Yes - Past Social History Smoking Status: Former Smoker Alcohol: None Drugs: Denies Home Situation {Lives}: Alone - CARDIAC Hx Cardiac Disorders: Yes Hx Congestive Heart Failure: Yes Hx Hypercholesterolemia: Yes Hx Hypertension: Yes Hx Peripheral Edema: Yes - PULMONARY Hx Respiratory Disorders: Yes Hx Bronchitis: Yes Hx Chronic Obstructive Pulmonary Disease (COPD): Yes Hx Pneumonia: Yes - NEUROLOGICAL Hx Neurological Disorder: Yes Other/Comment: Paresthesias of both feet - HEENT Hx HEENT Problems: No - RENAL Hx Chronic Kidney Disease: Yes - ENDOCRINE/METABOLIC Hx Endocrine Disorders: Yes Hx Hyperthyroidism: Yes - HEMATOLOGICAL/ONCOLOGICAL Hx Blood Disorders: Yes Hx Anemia: Yes Hx Human Immunodeficiency Virus (HIV): No - INTEGUMENTARY Hx Dermatological Problems: Yes Hx Cellulitis: Yes - MUSCULOSKELETAL/RHEUMATOLOGICAL Hx Musculoskeletal Disorders: Yes Hx Falls: Yes - GASTROINTESTINAL Hx Gastrointestinal Disorders: No - GENITOURINARY/GYNECOLOGICAL Hx Genitourinary Disorders: No - PSYCHIATRIC Hx Psychophysiologic Disorder: No Hx Substance Use: No - SURGICAL HISTORY Hx Surgeries: Yes Hx Appendectomy: Yes - ANESTHESIA Hx Anesthesia: Yes Hx Anesthesia Reactions: No Hx Malignant Hyperthermia: No Has any member of the family had a problem w/ anesthesia?: No Meds Allergies/Adverse Reactions: Allergies Allergy/AdvReac Type Severity Reaction Status Date / Time No Known Allergies Allergy Verified 12/18/17 16:07 - Medications Medications: Current Medications Acetaminophen (Tylenol 325mg Tab) 650 mg PO Q4 PRN PRN Reason: Pain, Mild (1-3) Acetaminophen (Tylenol 325mg Tab) 650 mg PO Q4 PRN PRN Reason: TEMP >100 Amoxicillin/Clavulanate Potassium (Augmentin 875 Mg-125 Mg Tab) 1 tab PO Q12 [facility] PRN Reason: Protocol Last Admin: 01/31/18 13:37 Dose: 1 tab Bacitracin (Bacitracin Oint) 1 applic TOP DAILY [facility] Bisacodyl (Dulcolax) 10 mg [place] DAILY PRN PRN Reason: Constipation Clopidogrel Bisulfate (Plavix) 75 mg PO DAILY [facility] Last Admin: 01/31/18 13:40 Dose: 75 mg Docusate Sodium (Colace) 100 mg PO DAILY [facility] Last Admin: 01/31/18 13:37 Dose: 100 mg Enoxaparin Sodium (Lovenox) 30 mg SC DAILY [facility] PRN Reason: Protocol Last Admin: 01/31/18 13:40 Dose: 30 mg Escitalopram Oxalate (Lexapro) 5 mg PO [facility] Famotidine (Pepcid) 20 mg PO DAILY [facility] Last Admin: 01/31/18 13:41 Dose: 20 mg Ferrous Sulfate (Feosol) 325 mg PO DAILY [facility] Last Admin: 01/31/18 13:38 Dose: 325 mg Furosemide (Lasix) 20 mg PO DAILY [facility] Last Admin: 01/31/18 13:39 Dose: 20 mg Glipizide (Glucotrol Xl) 2.5 mg PO DAILY [facility] Last Admin: 01/31/18 13:38 Dose: 2.5 mg Home Med (Hydrogen Peroxide [Peroxyl Dental Rinse]) 1 appl TOP MOWEFR [facility] Vancomycin HCl 1 gm/ Sodium (Chloride) 250 mls @ 166.667 mls/hr IVPB DAILY [facility] PRN Reason: Protocol Piperacillin Sod/Tazobactam (Sod 3.375 gm/ Sodium Chloride) 100 mls @ 100 mls/ hr IVPB Q8 [facility] PRN Reason: Protocol Last Admin: 01/31/18 13:42 Dose: 100 mls/hr Isosorbide Mononitrate (Imdur Er) 30 mg PO DAILY [facility] Last Admin: 01/31/18 13:39 Dose: 30 mg Ketorolac Tromethamine (Toradol) 15 mg IVP Q6 PRN PRN Reason: Pain, severe (8-10) Lactobacillus Acidophilus (Bacid Acidophilus) 1 cap PO BID [facility] Last Admin: 01/31/18 13:47 Dose: 1 cap Magnesium Hydroxide (Milk Of Magnesia) 30 ml PO HS PRN PRN Reason: Constipation Memantine (Namenda) 5 mg PO DAILY [facility] Methimazole (Tapazole) 5 mg PO DAILY [facility] Last Admin: 01/31/18 13:41 Dose: 5 mg Metoprolol Tartrate (Lopressor) 25 mg PO Q12 [facility] Last Admin: 01/31/18 13:39 Dose: 25 mg Miconazole Nitrate (Critic-Aid Clear Af) 1 applic TOP BID [facility] Petrolatum (Desitin Maximum Strength Topical 40% Oint) 1 applic TOP QSHIFT [facility] Risperidone (Risperidone Odt 0.25mg) 0.25 mg PO Q12 PRN PRN Reason: Psychosis Silver Sulfadiazine (Silvadene 1% 20 Gm) 1 ea TOP Q12 [facility] Physical Exam - Constitutional Appears: No Acute Distress, Chronically Ill - Head Exam Head Exam: ATRAUMATIC - Eye Exam Eye Exam: EOMI Results - Vital Signs Recent Vital Signs: Last Vital Signs Temp 97.6 F 01/31/18 08:23 Pulse 115 H 01/31/18 13:39 Resp 20 01/31/18 08:23 BP 111/66 01/31/18 13:39 Pulse Ox 93 L 01/31/18 08:23 - Labs Result Diagrams: 01/30/18 17:15 01/30/18 17:15 Labs: Laboratory Results - last 24 hr 01/30/18 01/30/18 01/30/18 17:15 17:15 17:15 WBC 15.3 H D RBC 3.78 L Hgb 9.1 L Hct 29.0 L MCV 76.8 L D MCH 24.0 L MCHC 31.3 L RDW 20.1 H Plt Count 289 MPV 7.8 Neut % (Auto) 89.0 H Lymph % (Auto) 2.7 L [place] % (Auto) 7.6 Eos % (Auto) 0.3 Baso % (Auto) 0.4 Neut # (Auto) 13.6 H Lymph # (Auto) 0.4 L [place] # (Auto) 1.2 H Eos # (Auto) 0.0 Baso # (Auto) 0.1 Neutrophils % (Manual) 86 H Band Neutrophils % 2 Lymphocytes % (Manual) 4 L Monocytes % (Manual) 5 Eosinophils % (Manual) 1 Basophils % (Manual) 1 Metamyelocytes % 1 H Toxic Granulation Present Platelet Estimate Normal Polychromasia Slight Hypochromasia (manual) Slight Poikilocytosis (manual Slight Anisocytosis (manual) Moderate Microcytosis (manual) Slight Ovalocytes Slight PT INR APTT Sodium 135 Potassium 4.5 Chloride 99 Carbon Dioxide 27 Anion Gap 14 BUN 42 H Creatinine 1.1 Est GFR ( Amer) 58 Est GFR (Non-Af Amer) 48 Random Glucose 162 H Lactic Acid 1.4 Calcium 9.5 Total Bilirubin 1.1 AST 32 ALT 26 Alkaline Phosphatase 97 Total Protein 6.8 Albumin 3.4 L Globulin 3.4 Albumin/Globulin Ratio 1.0 01/30/18 17:15 WBC RBC Hgb Hct MCV MCH MCHC RDW Plt Count MPV Neut % (Auto) Lymph % (Auto) [place] % (Auto) Eos % (Auto) Baso % (Auto) Neut # (Auto) Lymph # (Auto) [place] # (Auto) Eos # (Auto) Baso # (Auto) Neutrophils % (Manual) Band Neutrophils % Lymphocytes % (Manual) Monocytes % (Manual) Eosinophils % (Manual) Basophils % (Manual) Metamyelocytes % Toxic Granulation Platelet Estimate Polychromasia Hypochromasia (manual) Poikilocytosis (manual Anisocytosis (manual) Microcytosis (manual) Ovalocytes PT 13.3 H INR 1.2 APTT 25.4 L Sodium Potassium Chloride Carbon Dioxide Anion Gap BUN Creatinine Est GFR ( Amer) Est GFR (Non-Af Amer) Random Glucose Lactic Acid Calcium Total Bilirubin AST ALT Alkaline Phosphatase Total Protein Albumin Globulin Albumin/Globulin Ratio Assessment & Plan - Assessment and Plan (Free Text) Assessment: Extensive necrotic areas on both legs, particularly the right posterior calf and bilateral dorsal feet and right heel ID to advise on anti-biotics VERY poor expected outcome with the leg healing Surgical consultation will be necessary
--- NOTE | 2018-01-31 16:23 | CARD ---
APPROVED REPORT EKG Measurement Heart [id number] <Conclusion> Sinus tachycardia Artifacts ST & T wave abnormality, consider inferolateral ischemia Abnormal ECG
[2018-01-31] MEDS: Bacitracin OINT 15GM TOP SCH (18:31)
[2018-01-31] MEDS: Critic-Aid Clear AF TOP SCH (18:32)
--- NOTE | 2018-01-31 20:17 | CP.PCM.PN ---
Subjective - Date & Time of Evaluation Date of Evaluation: 01/31/18 Time of Evaluation: 22:22 - Subjective Subjective: Above noted Objective - Vital Signs/Intake and Output Vital Signs (last 24 hours): Temp Pulse Resp BP Pulse Ox 97.8 F 115 H 94 H 119/58 L 20 L 01/31/18 15:57 01/31/18 15:57 01/31/18 15:57 01/31/18 15:57 01/31/18 15:57 - Medications Medications: Current Medications Acetaminophen (Tylenol 325mg Tab) 650 mg PO Q4 PRN PRN Reason: Pain, Mild (1-3) Acetaminophen (Tylenol 325mg Tab) 650 mg PO Q4 PRN PRN Reason: TEMP >100 Bacitracin (Bacitracin Oint) 1 applic TOP DAILY [facility] Last Admin: 01/31/18 18:31 Dose: 1 applic Bisacodyl (Dulcolax) 10 mg [place] DAILY PRN PRN Reason: Constipation Clopidogrel Bisulfate (Plavix) 75 mg PO DAILY [facility] Last Admin: 01/31/18 13:40 Dose: 75 mg Docusate Sodium (Colace) 100 mg PO DAILY [facility] Last Admin: 01/31/18 13:37 Dose: 100 mg Enoxaparin Sodium (Lovenox) 30 mg SC DAILY [facility] PRN Reason: Protocol Last Admin: 01/31/18 13:40 Dose: 30 mg Escitalopram Oxalate (Lexapro) 5 mg PO [facility] Famotidine (Pepcid) 20 mg PO DAILY [facility] Last Admin: 01/31/18 13:41 Dose: 20 mg Ferrous Sulfate (Feosol) 325 mg PO DAILY [facility] Last Admin: 01/31/18 13:38 Dose: 325 mg Furosemide (Lasix) 20 mg PO DAILY [facility] Last Admin: 01/31/18 13:39 Dose: 20 mg Glipizide (Glucotrol Xl) 2.5 mg PO DAILY [facility] Last Admin: 01/31/18 13:38 Dose: 2.5 mg Home Med (Hydrogen Peroxide [Peroxyl Dental Rinse]) 1 appl TOP MOWEFR [facility] Vancomycin HCl 1 gm/ Sodium (Chloride) 250 mls @ 166.667 mls/hr IVPB DAILY [facility] PRN Reason: Protocol Last Admin: 01/31/18 16:35 Dose: 166.667 mls/hr Piperacillin Sod/Tazobactam (Sod 3.375 gm/ Sodium Chloride) 100 mls @ 100 mls/ hr IVPB Q8 [facility] PRN Reason: Protocol Last Admin: 01/31/18 18:35 Dose: 100 mls/hr Isosorbide Mononitrate (Imdur Er) 30 mg PO DAILY [facility] Last Admin: 01/31/18 13:39 Dose: 30 mg Ketorolac Tromethamine (Toradol) 15 mg IVP Q6 PRN PRN Reason: Pain, severe (8-10) Lactobacillus Acidophilus (Bacid Acidophilus) 1 cap PO BID [facility] Last Admin: 01/31/18 18:31 Dose: 1 cap Magnesium Hydroxide (Milk Of Magnesia) 30 ml PO HS PRN PRN Reason: Constipation Memantine (Namenda) 5 mg PO DAILY [facility] Methimazole (Tapazole) 5 mg PO DAILY [facility] Last Admin: 01/31/18 13:41 Dose: 5 mg Metoprolol Tartrate (Lopressor) 25 mg PO Q12 [facility] Last Admin: 01/31/18 13:39 Dose: 25 mg Miconazole Nitrate (Critic-Aid Clear Af) 1 applic TOP BID [facility] Last Admin: 01/31/18 18:32 Dose: 1 applic Petrolatum (Desitin Maximum Strength Topical 40% Oint) 1 applic TOP QSHIFT [facility] Risperidone (Risperidone Odt 0.25mg) 0.25 mg PO Q12 PRN PRN Reason: Psychosis Silver Sulfadiazine (Silvadene 1% 20 Gm) 1 ea TOP Q12 [facility] Last Admin: 01/31/18 09:00 Dose: 1 unit - Labs Labs: 01/30/18 17:15 01/30/18 17:15 PT 13.3 Seconds (9.8-13.1) H 01/30/18 17:15 INR 1.2 (0.9-1.2) 01/30/18 17:15 APTT 25.4 Seconds (25.6-37.1) L 01/30/18 17:15 - Respiratory Exam Respiratory Exam: NORMAL BREATHING PATTERN - Cardiovascular Exam Cardiovascular Exam: REGULAR RHYTHM - GI/Abdominal Exam GI & Abdominal Exam: Normal Bowel Sounds Assessment and Plan - Assessment and Plan (Free Text) Assessment: Low ext edema cellulitis with blisters- etiol? Arterial insufficiency Venous Insuff?? Infectious?? Hx Serratia G- Outpt MARY severe PAD Leg elevation IV ABX Zosyn/ Vanco ID Podiatry Surgery Physiatry Psychiatric dx?? Ultram?? Adj disorder with depression Psychiatry SSRI Resperidol CHF Diastolic CAD stress thalium scarring ischemia?? cardiac cath refused?? Cardiology Hx COPD L Pleural effusion Pulmonary Hx Anemia ASA d/c as outpt due to dec Hbg Stool for OB ?? Hematology consult NIDDM Thyroid dx Endo
[2018-01-31] MEDS ORDERED: [UNRECOGNIZED DRUG - OTHER] TOP SCH (21:53)
[2018-01-31 23:15] LABS: SQUAMOUS EPITHIAL 3 /hpf (0-5); URINE BACTERIA RARE (<OCC); URINE BILIRUBIN NEGATIVE (NEGATIVE); URINE BLOOD MODERATE (NEGATIVE); URINE CLARITY CLOUDY (Clear); URINE COLOR YELLOW (YELLOW); URINE GLUCOSE (UA) NEG (Normal); URINE LEUKOCYTE ESTERASE MOD Leu/uL (Negative); URINE PROTEIN 30 mg/dL (NEGATIVE)
[2018-02-01] MEDS: Piperacillin/Tazobact 3.375 GM in Sodium Chloride 0.9% 100 ML IVPB SCH ×3 (01:10→17:11)
[2018-02-01 07:29] LABS: BASO % 0.2 % (0.0-2.0); EOS % 0.1 % (0.0-4.0); HEMOGLOBIN 8.9 g/dL (12.0-16.0); LYMPH # 0.5 K/uL (1.0-4.3); LYMPH % 2.8 % (20.0-40.0); MEAN CELL VOLUME 76.8 fl (81.0-99.0); MEAN CORPUSCULAR HEMOGLOBIN 24.2 pg (27.0-31.0); MEAN CORPUSCULAR HGB CONC 31.6 g/dL (33.0-37.0); MEAN PLATELET VOLUME 8.6 fl (7.2-11.7); MONO # 1.1 K/uL (0.0-0.8); MONO % 6.8 % (0.0-10.0); NEUT # 14.7 K/uL (1.8-7.0); NEUT % 90.1 % (50.0-75.0); NRBC % 0.1 % (0.0-0.0); PLATELET COUNT 302 K/uL (130-400); RBC 3.66 Mil/uL (3.80-5.20); RED CELL DISTRIBUTION WIDTH 20.6 % (11.5-14.5); WHITE BLOOD COUNT 16.3 K/uL (4.8-10.8)
[2018-02-01 07:40] LABS: ALB/GLOB RATIO 0.9 (1.0-2.1); ALBUMIN 3.3 g/dL (3.5-5.0); CALCIUM 9.6 mg/dL (8.4-10.2)
[2018-02-01] MEDS: Lactobacillus Acidophilus 500 MU Cap PO SCH ×2 (11:11→17:09)
[2018-02-01] MEDS: GlipiZIDE 2.5 mg SR Tab PO SCH (11:12)
[2018-02-01] MEDS: Enoxaparin 30 mg Syringe SC SCH (11:13)
[2018-02-01] MEDS: methIMAzole 5 MG TAB PO SCH (11:13)
[2018-02-01] MEDS: Critic-Aid Clear AF TOP SCH ×2 (11:38→17:09)
--- NOTE | 2018-02-01 12:42 | CP.PCM.PN ---
Subjective - Date & Time of Evaluation Date of Evaluation: 02/01/18 Time of Evaluation: 12:41 - Subjective Subjective: 77 y/o female seen at bedside regarding bilateral lower extremity ulcerations with cellulitis. Pt resting comfortably in bedside chair at time of visit. Dressings clean, dry and intact at this time. Admits to intermittent pain in the legs. Denies any new pedal complaints. Denies F/C/N/V/CP/SOB Objective - Vital Signs/Intake and Output Vital Signs (last 24 hours): Temp Pulse Resp BP Pulse Ox 97.9 F 84 18 99/51 L 99 02/01/18 07:54 02/01/18 07:54 02/01/18 07:54 02/01/18 11:13 02/01/18 07:54 - Medications Medications: Current Medications Acetaminophen (Tylenol 325mg Tab) 650 mg PO Q4 PRN PRN Reason: Pain, Mild (1-3) Acetaminophen (Tylenol 325mg Tab) 650 mg PO Q4 PRN PRN Reason: TEMP >100 Bacitracin (Bacitracin Oint) 1 applic TOP DAILY [facility] Last Admin: 01/31/18 18:31 Dose: 1 applic Bisacodyl (Dulcolax) [address] DAILY PRN PRN Reason: Constipation Clopidogrel Bisulfate (Plavix) 75 mg PO DAILY [facility] Last Admin: 02/01/18 11:14 Dose: 75 mg Docusate Sodium (Colace) 100 mg PO DAILY [facility] Last Admin: 02/01/18 11:11 Dose: 100 mg Enoxaparin Sodium (Lovenox) 30 mg SC DAILY [facility] PRN Reason: Protocol Last Admin: 02/01/18 11:13 Dose: 30 mg Escitalopram Oxalate (Lexapro) 5 mg PO HS [facility] Last Admin: 01/31/18 21:16 Dose: 5 mg Famotidine (Pepcid) 20 mg PO DAILY [facility] Last Admin: 02/01/18 11:15 Dose: 20 mg Ferrous Sulfate (Feosol) 325 mg PO DAILY [facility] Last Admin: 02/01/18 11:12 Dose: 325 mg Furosemide (Lasix) 20 mg PO DAILY [facility] Last Admin: 01/31/18 13:39 Dose: 20 mg Glipizide (Glucotrol Xl) 2.5 mg PO DAILY [facility] Last Admin: 02/01/18 11:12 Dose: 2.5 mg Home Med (Hydrogen Peroxide [Peroxyl Dental Rinse]) 1 appl TOP MOWEFR [facility] Vancomycin HCl 1 gm/ Sodium (Chloride) 250 mls @ 166.667 mls/hr IVPB DAILY [facility] PRN Reason: Protocol Last Admin: 01/31/18 16:35 Dose: 166.667 mls/hr Piperacillin Sod/Tazobactam (Sod 3.375 gm/ Sodium Chloride) 100 mls @ 100 mls/ hr IVPB Q8 [facility] PRN Reason: Protocol Last Admin: 02/01/18 11:13 Dose: 100 mls/hr Isosorbide Mononitrate (Imdur Er) 30 mg PO DAILY [facility] Last Admin: 01/31/18 13:39 Dose: 30 mg Ketorolac Tromethamine (Toradol) 15 mg IVP Q6 PRN PRN Reason: Pain, severe (8-10) Lactobacillus Acidophilus (Bacid Acidophilus) 1 cap PO BID [facility] Last Admin: 02/01/18 11:11 Dose: 1 cap Magnesium Hydroxide (Milk Of Magnesia) 30 ml PO HS PRN PRN Reason: Constipation Memantine (Namenda) 5 mg PO DAILY [facility] Last Admin: 02/01/18 11:15 Dose: 5 mg Methimazole (Tapazole) 5 mg PO DAILY [facility] Last Admin: 02/01/18 11:13 Dose: 5 mg Metoprolol Tartrate (Lopressor) 25 mg PO Q12 [facility] Last Admin: 02/01/18 11:13 Dose: Not Given Miconazole Nitrate (Critic-Aid Clear Af) 1 applic TOP BID [facility] Last Admin: 02/01/18 11:38 Dose: 1 applic Petrolatum (Desitin Maximum Strength Topical 40% Oint) 1 applic TOP QSHIFT [facility] Risperidone (Risperidone Odt 0.25mg) 0.25 mg PO Q12 PRN PRN Reason: Psychosis - Labs Labs: 02/01/18 05:20 02/01/18 05:20 PT 13.3 Seconds (9.8-13.1) H 01/30/18 17:15 INR 1.2 (0.9-1.2) 01/30/18 17:15 APTT 25.4 Seconds (25.6-37.1) L 01/30/18 17:15 - Constitutional Appears: Well, Non-toxic, No Acute Distress - Extremities Exam Additional comments: Vasc: DP pulses and PT pulses nonpalpable, +2 pitting edema to bilateral LE, TG warm to warm, CFT < 4 sec to all digits Neuro: Epicritic and protective sensation grossly intact bilaterally Derm: Multiple chronic, 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 All blisters continue to weep serous fluid. Multiple ulcerations noted to the entire lower extremity with mixture of fibrotic/necrotic wound base: Erythema to the entire LE R>L, malodorous, all sites (-) for purulence, fluctuance, probe to bone, tunneling or undermining. See below: RIGHT- Necrotic right heel ulceration noted with drainage, malodorous. Ulceration noted measuring 7cm x 6cm x 0.1cm to posterior right leg mid calf with multiple vesicles noted to the medial aspect of the leg. Wound base is mainly fibrotic with necrotic tissue noted, odorous, erythema noted, no tunneling, no probe to bone or tendon exposed. Ulcerations to dorsum of right digits 1, 2, 3, 4 with mixture of fibrotic and necrotic base, nail plate from nail bed of digits right 2 and 3 are absent, 4 nail plate is loose. LEFT- Open additional open lysed blister site with superficial ulceration measuring 4cm x 1.5cm x 0.1cm noted to anteromedial left leg. Granular in nature. Ulceration site noted to dorsum of L foot with central fibrotic, measuring 4cm x 4.5cm x 0.2cm. Jennifer wound exhibits epithelization with healthy pink skin edges noted to dorsal left foot ulcer site. malodor present, no fluctuance, no probe to bone, no tunneling or no undermining. Ulcerations to dorsum of the left digits 1 and 2 with fibrotic base and macerated periwound. Ortho: Helene's sign negative B/L. All ulceration sites are tender to palpation. No other gross musculoskeletal deformities noted - Neurological Exam Neurological Exam: Alert, Awake, Oriented x3 - Psychiatric Exam Psychiatric exam: Normal Affect, Normal Mood Assessment and Plan - Assessment and Plan (Free Text) Assessment: 77 year old non compliant female with lower extremity cellulitis with lower extremity non healing partial thickness and unstageable ulcerations 2/2 multiple etiologies including DM, PVD, and swelling Plan: Patient seen and evaluated at bedside Discussed plan with Dr. Briseno Afebrile, WBC 16.3 Wound culture prelim shows growth of gram neg chuckie Cleansed LE ulceration with saline, dressed with Adaptic, ABD, DSD Await results of CT angio of lower extremities ID on board, continue IV MaudeoJacobo Will continue to follow patient while in house
--- NOTE | 2018-02-01 14:10 | CT ---
PROCEDURE: CT Angiography Abdomen, Pelvis and Lower Extremity with Contrast HISTORY: multiple ulcerations LE nonhealing COMPARISON: None. TECHNIQUE: Technique: CT angiography of the abdomen, pelvis and bilateral lower extremities performed in the arterial phase of enhancement. Coronal and sagittal reformats, and well as rotating MIP images of the vessels generated at the workstation. Intravenous contrast dose: Visipaque 320, 99 cc Radiation dose: Total exam DLP = 1325.36 mGy-cm. This CT exam was performed using one or more of the following dose reduction techniques: Automated exposure control, adjustment of the mA and/or kV according to patient size, and/or use of iterative reconstruction technique. FINDINGS: CT ANGIOGRAPHY: Note, arterial enhancement is suboptimal throughout this exam. ABDOMINAL AORTA:: An atherosclerotic abdominal aorta is appreciated without aneurysm but appears to occlude at the bifurcation. MAJOR AORTIC BRANCHES: Celiac [place]: Patent though atherosclerotic, particularly the origin of the celiac artery. Superior mesenteric artery: Patent though atherosclerotic at its origin and at a short distal segment. Inferior mesenteric artery: Moderately disease admitted distal segments but patent. Renal arteries: Patent but mildly disease at proximal segments. PELVIC ARTERIES: Right Common Iliac: Heavily atherosclerotic. Occluded calcified proximal to mid segment with minimal distal reconstitution. Right External Iliac: Multifocal high-grade stenoses with proximal occlusion re-constituting distally. Right Internal Iliac: Occluded proximally with severe mid and distal disease present, with variable mid and distal reconstitution. Left Common Iliac: Occluded proximally with reconstitution at the proximal to mid segment appearing patent to its bifurcation the moderate to severely disease nevertheless. Left External Iliac: Patent but moderately diseased throughout its entire extent. Left Internal Iliac: Patent but moderately disease throughout its extent. RIGHT LOWER EXTREMITY ARTERIES: Right Common Femoral: High-grade stenosis at its proximal segment which subsequently occludes without reconstitution. Right Superficial Femoral: Diffusely severely diseased with proximal occlusion in variable segmental stenoses throughout the remainder varying from mild to severe. Distal reconstitution is felt to be present at the inferior adductor canal level. Right Profunda Femoris: Moderate to severely diseased. Right Popliteal:Popliteal artery is felt to be patent but severely diseased. Right Anterior Tibial: Severely diseased with variable occlusions and reconstitutions the various segments with distal segment felt to be patent. The vessel appears small. Right Tibioperoneal Trunk: A small tibial-peroneal trunk is appreciated which severely diseased but likely patent distally. Right Posterior Tibial: A small X [employer] is identified which is low felt to be patent distally with variable multifocal stenoses. Right Peroneal: A very small peroneal artery is identified which is felt to be patent distally with variable multifocal segmental stenoses a proximal and mid segments. Right dorsalis pedis : Appears very small but patent. LEFT LOWER EXTREMITY ARTERIES: Left Common Femoral: Severely disease with high-grade stenosis present proximally but with distal occlusion. Left Superficial Femoral: The origin is occluded with multiple minimal reconstitutions followed by occlusions include identified the distal 3rd of the artery. Limited reconstitution is identified at the distal SFA. Left Profunda Femoris: Severely diseased but patent. Left Popliteal: Proximal occlusion noted with minimal mid reconstitution follow-up by inclusion once again at the distal segment. Left Anterior Tibial: The caliber is diffusely quite small similar to the right sided runoff. Severely diseased proximally with likely variable multi segmental occlusions. Distal reconstitution is noted. Left Tibioperoneal Trunk: Severely diseased with multifocal segmental occlusions with distal segment patent. Left Posterior Tibial: Severely diseased and likely occluded, particularly at its entire distal segment. Left Peroneal: Severely diseased throughout entire extent with multifocal occlusions and occasional reconstitutions, occluded proximal to the ankle. Left Dorsalis pedis: Appears small but patent. NON-ANGIOGRAPHIC ASPECT OF THE EXAM: LOWER THORAX: Cardiomegaly with dense mitral annular calcification noted. Mild bilateral pleural effusions are identified restrained motion limits evaluation lung however compressive atelectasis favored over pneumonia at the left lower lobe. Trace atelectasis right base. No pericardial effusion. LIVER: Unremarkable. No gross lesion or ductal dilatation. GALLBLADDER AND BILE DUCTS: Sludge is felt to be layering the dependent gallbladder. The gallbladder otherwise appears unremarkable. PANCREAS: Unremarkable. No gross lesion or ductal dilatation. SPLEEN: Unremarkable. ADRENALS: The right adrenal gland appears unremarkable. The left adrenal gland harbors a 1.6 cm benign adrenal adenoma measuring 9 Hounsfield units. KIDNEYS AND URETERS: No hydronephrosis is appreciated or perinephric reaction. No gross mass. Bilateral renal calcifications are felt to represent vascular etiology rather than urolithiasis. STOMACH AND BOWEL: Stomach is collapsed. No bowel obstruction is evident. Moderate fecal loading is seen throughout the majority of the colon. Sigmoid diverticulosis without diverticulitis. APPENDIX: Not identified. No definite pattern to suggest appendicitis nevertheless. PERITONEUM: Unremarkable. No free fluid. No free air. LYMPH NODES: Unremarkable. No enlarged lymph nodes. BLADDER: The urinary bladder is distended but thin and smooth walled. REPRODUCTIVE: Calcified fibroid is seen exophytic off the upper right fundus. No suspicious adnexal findings bilaterally. BONES: No acute fracture. OTHER FINDINGS: None. IMPRESSION: 1. Advanced arterial disease appreciated throughout the aortic iliofemoral system including bilateral runoff. Distal distal abdominal aorta is occluded. The bilateral common iliac arteries are severely disease with distal right common iliac occlusion and proximal left common iliac exclusion. Severe right external iliac artery disease is noted with proximal occlusion with reconstitution mid and distal segments and patent but mildly diseased left common external iliac artery. 2. Occluded bilateral distal common femoral arteries with severely disease variably occluded bilateral SFA's with extremely poor runoff bilaterally. Runoff arteries are thready in appearance. 3. Contrast-enhancement is limited. Correlation with conventional DSA may be helpful. 4. No definite acute abdominal findings. 1.6 cm benign left adrenal adenoma. 5. Gotothestartofclinicalhistory 6. Incidental cardiomegaly and mild bilateral pleural effusions.
[2018-02-01 14:18] LABS: LYMPHOCYTE 5 % (20-50); MONOCYTE 10 % (0-10); NEUTROPHIL 85 % (42-75); TOTAL CELLS COUNTED 100
[2018-02-01 14:21] LABS: ANISOCYTOSIS MODERATE; MICROCYTOSIS SLIGHT; PLATELET ESTIMATE NORMAL (NORMAL)
[2018-02-01 14:23] LABS: HYPOCHROMIC SLIGHT; POLYCHROMIC SLIGHT
[2018-02-01] MEDS: Bacitracin OINT 15GM TOP SCH (17:09)
--- NOTE | 2018-02-01 20:00 | CP.PCM.PN ---
Subjective - Date & Time of Evaluation Date of Evaluation: 02/01/18 Time of Evaluation: 22:22 - Subjective Subjective: CT scan advanced arterial disease aorta illiac femoral system Objective - Vital Signs/Intake and Output Vital Signs (last 24 hours): Temp Pulse Resp BP Pulse Ox 97.8 F 101 H 20 96/54 L 99 02/01/18 16:19 02/01/18 16:19 02/01/18 16:19 02/01/18 17:04 02/01/18 16:19 - Medications Medications: Current Medications Acetaminophen (Tylenol 325mg Tab) 650 mg PO Q4 PRN PRN Reason: Pain, Mild (1-3) Acetaminophen (Tylenol 325mg Tab) 650 mg PO Q4 PRN PRN Reason: TEMP >100 Bacitracin (Bacitracin Oint) 1 applic TOP DAILY [facility] Last Admin: 02/01/18 17:09 Dose: 1 applic Bisacodyl (Dulcolax) 10 mg [place] DAILY PRN PRN Reason: Constipation Clopidogrel Bisulfate (Plavix) 75 mg PO DAILY [facility] Last Admin: 02/01/18 11:14 Dose: 75 mg Docusate Sodium (Colace) 100 mg PO DAILY [facility] Last Admin: 02/01/18 11:11 Dose: 100 mg Enoxaparin Sodium (Lovenox) 30 mg SC DAILY [facility] PRN Reason: Protocol Last Admin: 02/01/18 11:13 Dose: 30 mg Escitalopram Oxalate (Lexapro) 5 mg PO HS [facility] Last Admin: 01/31/18 21:16 Dose: 5 mg Famotidine (Pepcid) 20 mg PO DAILY [facility] Last Admin: 02/01/18 11:15 Dose: 20 mg Ferrous Sulfate (Feosol) 325 mg PO DAILY [facility] Last Admin: 02/01/18 11:12 Dose: 325 mg Furosemide (Lasix) 20 mg PO DAILY [facility] Last Admin: 02/01/18 17:04 Dose: Not Given Glipizide (Glucotrol Xl) 2.5 mg PO DAILY [facility] Last Admin: 02/01/18 11:12 Dose: 2.5 mg Home Med (Hydrogen Peroxide [Peroxyl Dental Rinse]) 1 appl TOP MOWEFR [facility] Vancomycin HCl 1 gm/ Sodium (Chloride) 250 mls @ 166.667 mls/hr IVPB DAILY [facility] PRN Reason: Protocol Last Admin: 02/01/18 17:10 Dose: 166.667 mls/hr Piperacillin Sod/Tazobactam (Sod 3.375 gm/ Sodium Chloride) 100 mls @ 100 mls/ hr IVPB Q8 [facility] PRN Reason: Protocol Last Admin: 02/01/18 17:11 Dose: 100 mls/hr Isosorbide Mononitrate (Imdur Er) 30 mg PO DAILY [facility] Last Admin: 02/01/18 17:03 Dose: Not Given Ketorolac Tromethamine (Toradol) 15 mg IVP Q6 PRN PRN Reason: Pain, severe (8-10) Lactobacillus Acidophilus (Bacid Acidophilus) 1 cap PO BID [facility] Last Admin: 02/01/18 17:09 Dose: 1 cap Magnesium Hydroxide (Milk Of Magnesia) 30 ml PO HS PRN PRN Reason: Constipation Memantine (Namenda) 5 mg PO DAILY [facility] Last Admin: 02/01/18 11:15 Dose: 5 mg Methimazole (Tapazole) 5 mg PO DAILY [facility] Last Admin: 02/01/18 11:13 Dose: 5 mg Metoprolol Tartrate (Lopressor) 25 mg PO Q12 [facility] Last Admin: 02/01/18 11:13 Dose: Not Given Miconazole Nitrate (Critic-Aid Clear Af) 1 applic TOP BID [facility] Last Admin: 02/01/18 17:09 Dose: 1 applic Petrolatum (Desitin Maximum Strength Topical 40% Oint) 1 applic TOP QSHIFT [facility] Risperidone (Risperidone Odt 0.25mg) 0.25 mg PO Q12 PRN PRN Reason: Psychosis - Labs Labs: 02/01/18 05:20 02/01/18 05:20 PT 13.3 Seconds (9.8-13.1) H 01/30/18 17:15 INR 1.2 (0.9-1.2) 01/30/18 17:15 APTT 25.4 Seconds (25.6-37.1) L 01/30/18 17:15 - Respiratory Exam Respiratory Exam: NORMAL BREATHING PATTERN - Cardiovascular Exam Cardiovascular Exam: Tachycardia, REGULAR RHYTHM - GI/Abdominal Exam GI & Abdominal Exam: Normal Bowel Sounds Assessment and Plan - Assessment and Plan (Free Text) Assessment: Low ext edema cellulitis with blisters- etiol? Significant Arterial insufficiency Hx Serratia G- Leg elevation IV ABX Zosyn/ Vanco ID Podiatry Surgery Physiatry Psychiatric dx?? Ultram?? Adj disorder with depression Psychiatry SSRI Resperidol CHF Diastolic CAD stress thalium scarring ischemia?? cardiac cath refused?? Cardiology Hx COPD L Pleural effusion Pulmonary Hx Anemia ASA d/c as outpt due to dec Hbg Stool for OB ?? Hematology consult NIDDM Thyroid dx Endo
[2018-02-01] MEDS: RISPERIDONE 0.25 MG ODT PO PRN (21:24)
[2018-02-02] MEDS: Piperacillin/Tazobact 3.375 GM in Sodium Chloride 0.9% 100 ML IVPB SCH ×3 (00:48→18:48)
[2018-02-02 07:36] LABS: HEMOGLOBIN 8.6 g/dL (12.0-16.0); MEAN CELL VOLUME 77.5 fl (81.0-99.0); MEAN CORPUSCULAR HEMOGLOBIN 23.9 pg (27.0-31.0); MEAN CORPUSCULAR HGB CONC 30.8 g/dL (33.0-37.0); RBC 3.58 Mil/uL (3.80-5.20); RED CELL DISTRIBUTION WIDTH 20.4 % (11.5-14.5); WHITE BLOOD COUNT 14.1 K/uL (4.8-10.8)
[2018-02-02 08:01] LABS: ALB/GLOB RATIO 0.9 (1.0-2.1); ALBUMIN 3.3 g/dL (3.5-5.0); CALCIUM 9.3 mg/dL (8.4-10.2)
[2018-02-02] MEDS: Critic-Aid Clear AF TOP SCH ×2 (09:00→18:47)
[2018-02-02] MEDS: Lactobacillus Acidophilus 500 MU Cap PO SCH ×2 (10:52→18:47)
[2018-02-02] MEDS: GlipiZIDE 2.5 mg SR Tab PO SCH (10:54)
[2018-02-02] MEDS: Enoxaparin 30 mg Syringe SC SCH (10:58)
[2018-02-02] MEDS: methIMAzole 5 MG TAB PO SCH (11:00)
[2018-02-02] MEDS: Sodium Chloride 0.45% 1,000 ML IV SCH (11:01)
--- NOTE | 2018-02-02 11:24 | CP.PCM.PN ---
Subjective - Date & Time of Evaluation Date of Evaluation: 02/02/18 Time of Evaluation: 11:21 - Subjective Subjective: 77 y/o female seen at bedside this morning regarding bilateral lower extremity ulcerations with cellulitis. Pt resting comfortably in bedside chair at time of visit with legs in dependent position. Dressings appear frayed as though patient has tampered with them. Pt admits to intermittent pain in the legs and states they feel the best when they are hanging down. Denies any new pedal complaints. Denies F/C/N/V/CP/SOB Objective - Vital Signs/Intake and Output Vital Signs (last 24 hours): Temp Pulse Resp BP Pulse Ox 97.9 F 83 20 110/69 100 02/02/18 08:17 02/02/18 10:57 02/02/18 08:17 02/02/18 10:57 02/02/18 08:17 - Medications Medications: Current Medications Acetaminophen (Tylenol 325mg Tab) 650 mg PO Q4 PRN PRN Reason: Pain, Mild (1-3) Acetaminophen (Tylenol 325mg Tab) 650 mg PO Q4 PRN PRN Reason: TEMP >100 Bacitracin (Bacitracin Oint) 1 applic TOP DAILY [facility] Last Admin: 02/01/18 17:09 Dose: 1 applic Bisacodyl (Dulcolax) 10 mg [place] DAILY PRN PRN Reason: Constipation Clopidogrel Bisulfate (Plavix) 75 mg PO DAILY [facility] Last Admin: 02/02/18 10:59 Dose: 75 mg Docusate Sodium (Colace) 100 mg PO DAILY [facility] Last Admin: 02/02/18 10:53 Dose: 100 mg Enoxaparin Sodium (Lovenox) 30 mg SC DAILY [facility] PRN Reason: Protocol Last Admin: 02/02/18 10:58 Dose: 30 mg Escitalopram Oxalate (Lexapro) 5 mg PO HS [facility] Last Admin: 02/02/18 00:48 Dose: 5 mg Famotidine (Pepcid) 20 mg PO DAILY [facility] Last Admin: 02/02/18 10:59 Dose: 20 mg Ferrous Sulfate (Feosol) 325 mg PO DAILY [facility] Last Admin: 02/02/18 10:53 Dose: 325 mg Furosemide (Lasix) 20 mg PO DAILY [facility] Last Admin: 02/02/18 10:57 Dose: 20 mg Glipizide (Glucotrol Xl) 2.5 mg PO DAILY [facility] Last Admin: 02/02/18 10:54 Dose: 2.5 mg Home Med (Hydrogen Peroxide [Peroxyl Dental Rinse]) 1 appl TOP MOWEFR [facility] Vancomycin HCl 1 gm/ Sodium (Chloride) 250 mls @ 166.667 mls/hr IVPB DAILY [facility] PRN Reason: Protocol Last Admin: 02/02/18 11:00 Dose: Not Given Piperacillin Sod/Tazobactam (Sod 3.375 gm/ Sodium Chloride) 100 mls @ 100 mls/ hr IVPB Q8 [facility] PRN Reason: Protocol Last Admin: 02/02/18 00:48 Dose: 100 mls/hr Sodium Chloride (Sodium Chloride 0.45%) 1,000 mls @ 60 mls/hr IV .[id number] [facility] Stop: 02/03/18 09:32 Last Admin: 02/02/18 11:01 Dose: 60 mls/hr Isosorbide Mononitrate (Imdur Er) 30 mg PO DAILY [facility] Last Admin: 02/02/18 10:54 Dose: 30 mg Ketorolac Tromethamine (Toradol) 15 mg IVP Q6 PRN PRN Reason: Pain, severe (8-10) Lactobacillus Acidophilus (Bacid Acidophilus) 1 cap PO BID [facility] Last Admin: 02/02/18 10:52 Dose: 1 cap Magnesium Hydroxide (Milk Of Magnesia) 30 ml PO HS PRN PRN Reason: Constipation Memantine (Namenda) 5 mg PO DAILY [facility] Last Admin: 02/02/18 10:59 Dose: 5 mg Methimazole (Tapazole) 5 mg PO DAILY [facility] Last Admin: 02/02/18 11:00 Dose: 5 mg Metoprolol Tartrate (Lopressor) 25 mg PO Q12 [facility] Last Admin: 02/02/18 10:57 Dose: 25 mg Miconazole Nitrate (Critic-Aid Clear Af) 1 applic TOP BID [facility] Last Admin: 02/01/18 17:09 Dose: 1 applic Petrolatum (Desitin Maximum Strength Topical 40% Oint) 1 applic TOP QSHIFT [facility] Risperidone (Risperidone Odt 0.25mg) 0.25 mg PO Q12 PRN PRN Reason: Psychosis Last Admin: 02/01/18 21:24 Dose: 0.25 mg - Labs Labs: 02/02/18 05:20 02/02/18 05:20 PT 13.3 Seconds (9.8-13.1) H 01/30/18 17:15 INR 1.2 (0.9-1.2) 01/30/18 17:15 APTT 25.4 Seconds (25.6-37.1) L 01/30/18 17:15 - Constitutional Appears: Well, Non-toxic, No Acute Distress - Extremities Exam Additional comments: Vasc: DP pulses and PT pulses nonpalpable, +2 pitting edema to bilateral LE, TG warm to warm, CFT < 4 sec to all digits Neuro: Epicritic and protective sensation grossly intact bilaterally Derm: Multiple chronic, 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 All blisters continue to weep serous fluid. New blister is noted to lateral aspect of L plantar heel with significant thin serous fluid noted post-drainage. Multiple ulcerations noted to the entire lower extremity with mixture of fibrotic/necrotic wound base: Erythema to the entire LE R>L, malodorous, all sites (-) for purulence, fluctuance, probe to bone, tunneling or undermining. See below: RIGHT- Necrotic right heel ulceration noted with drainage, malodorous. Ulceration noted measuring 7cm x 6cm x 0.1cm to posterior right leg mid calf with multiple vesicles noted to the medial aspect of the leg. Wound base is mainly fibrotic with necrotic tissue noted, odorous, erythema noted, no tunneling, no probe to bone or tendon exposed. Ulcerations to dorsum of right digits 1, 2, 3, 4 with mixture of fibrotic and necrotic base, nail plate from nail bed of digits right 2 and 3 are absent, 4 nail plate is loose. LEFT- Open additional open lysed blister site with superficial ulceration measuring 4cm x 1.5cm x 0.1cm noted to anteromedial left leg. Granular in nature. Ulceration site noted to dorsum of L foot with central fibrotic, measuring 4cm x 4.5cm x 0.2cm. Jennifer wound exhibits epithelization with healthy pink skin edges noted to dorsal left foot ulcer site. malodor present, no fluctuance, no probe to bone, no tunneling or no undermining. Ulcerations to dorsum of the left digits 1 and 2 with fibrotic base and macerated periwound. Ortho: Sara's sign negative B/L. All ulceration sites are tender to palpation. No other gross musculoskeletal deformities noted - Neurological Exam Neurological Exam: Alert, Awake, Oriented x3 - Psychiatric Exam Psychiatric exam: Normal Affect, Normal Mood Assessment and Plan - Assessment and Plan (Free Text) Assessment: 77 year old non compliant female patient with lower extremity cellulitis with lower extremity non healing partial thickness and unstageable ulcerations 2/2 multiple etiologies including DM, PVD, and swelling Plan: Patient seen and evaluated at bedside Discussed plan with Dr. Briseno Afebrile, leukocytosis mildly resolving (14.1 down from 16.3) Wound culture of R leg (+) Serratia marcescens Cleansed LE ulceration with saline, dressed with Adaptic, ABD, DSD ID on board, continue IV Vanco, Zosyn LE angiography reveals bilateral occluded SFA disease Consult placed for Dr. Damon for possible vascular intervention- recommendations appreciated Will continue to follow patient while in house
--- NOTE | 2018-02-02 13:39 | CP.PCM.PN ---
Subjective - Date & Time of Evaluation Date of Evaluation: 02/02/18 Time of Evaluation: 07:00 - Subjective Subjective: ct angio- bilat occluded SFA wounds same - cellulitic/ necrotic + ischemic findings cultures noted BUN higher- Vanco on hold Objective - Vital Signs/Intake and Output Vital Signs (last 24 hours): Temp Pulse Resp BP Pulse Ox 97.9 F 83 20 110/69 100 02/02/18 08:17 02/02/18 10:57 02/02/18 08:17 02/02/18 10:57 02/02/18 08:17 - Medications Medications: Current Medications Acetaminophen (Tylenol 325mg Tab) 650 mg PO Q4 PRN PRN Reason: Pain, Mild (1-3) Acetaminophen (Tylenol 325mg Tab) 650 mg PO Q4 PRN PRN Reason: TEMP >100 Bacitracin (Bacitracin Oint) 1 applic TOP DAILY [facility] Last Admin: 02/01/18 17:09 Dose: 1 applic Bisacodyl (Dulcolax) 10 mg [place] DAILY PRN PRN Reason: Constipation Clopidogrel Bisulfate (Plavix) 75 mg PO DAILY [facility] Last Admin: 02/02/18 10:59 Dose: 75 mg Docusate Sodium (Colace) 100 mg PO DAILY [facility] Last Admin: 02/02/18 10:53 Dose: 100 mg Enoxaparin Sodium (Lovenox) 30 mg SC DAILY [facility] PRN Reason: Protocol Last Admin: 02/02/18 10:58 Dose: 30 mg Escitalopram Oxalate (Lexapro) 5 mg PO HS [facility] Last Admin: 02/02/18 00:48 Dose: 5 mg Famotidine (Pepcid) 20 mg PO DAILY [facility] Last Admin: 02/02/18 10:59 Dose: 20 mg Ferrous Sulfate (Feosol) 325 mg PO DAILY [facility] Last Admin: 02/01/18 11:12 Dose: 325 mg Furosemide (Lasix) 20 mg PO DAILY [facility] Last Admin: 02/02/18 10:57 Dose: 20 mg Glipizide (Glucotrol Xl) 2.5 mg PO DAILY [facility] Last Admin: 02/02/18 10:54 Dose: 2.5 mg Home Med (Hydrogen Peroxide [Peroxyl Dental Rinse]) 1 appl TOP MOWEFR [facility] Piperacillin Sod/Tazobactam (Sod 3.375 gm/ Sodium Chloride) 100 mls @ 100 mls/ hr IVPB Q8 [facility] PRN Reason: Protocol Last Admin: 02/02/18 12:27 Dose: 100 mls/hr Sodium Chloride (Sodium Chloride 0.45%) 1,000 mls @ 60 mls/hr IV .[id number] [facility] Stop: 02/03/18 09:32 Last Admin: 02/02/18 11:01 Dose: 60 mls/hr Isosorbide Mononitrate (Imdur Er) 30 mg PO DAILY [facility] Last Admin: 02/02/18 10:54 Dose: 30 mg Ketorolac Tromethamine (Toradol) 15 mg IVP Q6 PRN PRN Reason: Pain, severe (8-10) Lactobacillus Acidophilus (Bacid Acidophilus) 1 cap PO BID [facility] Last Admin: 02/02/18 10:52 Dose: 1 cap Magnesium Hydroxide (Milk Of Magnesia) 30 ml PO HS PRN PRN Reason: Constipation Memantine (Namenda) 5 mg PO DAILY [facility] Last Admin: 02/02/18 10:59 Dose: 5 mg Methimazole (Tapazole) 5 mg PO DAILY [facility] Last Admin: 02/02/18 11:00 Dose: 5 mg Metoprolol Tartrate (Lopressor) 25 mg PO Q12 [facility] Last Admin: 02/02/18 10:57 Dose: 25 mg Miconazole Nitrate (Critic-Aid Clear Af) 1 applic TOP BID [facility] Last Admin: 02/01/18 17:09 Dose: 1 applic Petrolatum (Desitin Maximum Strength Topical 40% Oint) 1 applic TOP QSHIFT [facility] Risperidone (Risperidone Odt 0.25mg) 0.25 mg PO Q12 PRN PRN Reason: Psychosis Last Admin: 02/01/18 21:24 Dose: 0.25 mg - Labs Labs: 02/02/18 05:20 02/02/18 05:20 PT 13.3 Seconds (9.8-13.1) H 01/30/18 17:15 INR 1.2 (0.9-1.2) 01/30/18 17:15 APTT 25.4 Seconds (25.6-37.1) L 01/30/18 17:15 - Constitutional Appears: Non-toxic, Cachectic, Chronically Ill - Head Exam Head Exam: NORMOCEPHALIC - Eye Exam Eye Exam: PERRL. absent: Scleral icterus - ENT Exam ENT Exam: Mucous Membranes Dry - Neck Exam Neck Exam: absent: Lymphadenopathy - Respiratory Exam Respiratory Exam: Decreased Breath Sounds - Cardiovascular Exam Cardiovascular Exam: REGULAR RHYTHM - GI/Abdominal Exam GI & Abdominal Exam: Distended, Soft - Rectal Exam Rectal Exam: Deferred - Exam Exam: NORMAL INSPECTION - Extremities Exam Extremities Exam: Calf Tenderness, Pedal Edema, Tenderness. absent: Normal Capillary Refill, Normal Inspection Additional comments: ischemic changes/ ulcers + - Back Exam Back Exam: absent: CVA tenderness (L), CVA tenderness (R) - Neurological Exam Neurological Exam: Alert, Altered, Awake, CN II-XII Intact - Psychiatric Exam Psychiatric exam: Depressed - Skin Skin Exam: Dry Assessment and Plan (1) Cellulitis, leg Status: Acute (2) PVD (peripheral vascular disease) Status: Acute (3) Sepsis Status: Acute - Assessment and Plan (Free Text) Assessment: bilat SFA occlusion with ischemic changes and secondary bacterial infections Dr Damon on board for possible intervention BUN higher- Vanco on hold may need amputation if rx fails
--- NOTE | 2018-02-02 15:47 | CP.PCM.CON ---
History of Present Illness - History of Present Illness History of Present Illness: renal consult note 77 y.o female with PMH of DM, CAD, CHF, chronic anemia, PVD with history of lower extremity ulcerations with cellulitis and swellingis admitted with bilateral lower extremity ulcerations with swelling and cellulitis. patient admitted with worsening lower extremity ulcerations with new bullae formation to the LE. pmh: [facility] in the past, dm, cad, chf anemia, pvd fam hx negative for ckd non smoker no alcohol complete ros is negative vitals reviewed heent normal op moist no jvd skin normal s1s2 present no resp distress ext: dressing b.l legs cooperative ao times 3 no jvd plan ABBEY/CKD/PVD/HTN/DM/CAD/CHF cr stable lytes reviewed continue iv fluids bp ok abx per primary team Past Patient History - Infectious Disease Hx of Infectious Diseases: None - Past Medical History & Family History Past Medical History?: Yes - Past Social History Smoking Status: Former Smoker - CARDIAC Hx Congestive Heart Failure: Yes Hx Hypercholesterolemia: Yes Hx Hypertension: Yes Hx Peripheral Edema: Yes - PULMONARY Hx Bronchitis: Yes Hx Chronic Obstructive Pulmonary Disease (COPD): Yes Hx Pneumonia: Yes - NEUROLOGICAL Other/Comment: Paresthesias of both feet - HEENT Hx HEENT Problems: No - RENAL Hx Chronic Kidney Disease: Yes Hx Kidney Stones: Yes (kidney stone removal) - ENDOCRINE/METABOLIC Hx Hyperthyroidism: Yes - HEMATOLOGICAL/ONCOLOGICAL Hx Anemia: Yes Hx Human Immunodeficiency Virus (HIV): No - INTEGUMENTARY Hx Dermatological Problems: Yes Other/Comment: Dependent edema of both lower extremities with blister formation - MUSCULOSKELETAL/RHEUMATOLOGICAL Hx Falls: Yes - GASTROINTESTINAL Hx Gastrointestinal Disorders: No - GENITOURINARY/GYNECOLOGICAL Hx Genitourinary Disorders: No - PSYCHIATRIC Hx Psychophysiologic Disorder: No Hx Substance Use: No - SURGICAL HISTORY Hx Appendectomy: Yes - ANESTHESIA Hx Anesthesia: Yes Hx Anesthesia Reactions: No Hx Malignant Hyperthermia: No Meds Allergies/Adverse Reactions: Allergies Allergy/AdvReac Type Severity Reaction Status Date / Time No Known Allergies Allergy Verified 12/18/17 16:07 - Medications Medications: Current Medications Acetaminophen (Tylenol 325mg Tab) 650 mg PO Q4 PRN PRN Reason: Pain, Mild (1-3) Acetaminophen (Tylenol 325mg Tab) 650 mg PO Q4 PRN PRN Reason: TEMP >100 Bacitracin (Bacitracin Oint) 1 applic TOP DAILY [facility] Last Admin: 02/01/18 17:09 Dose: 1 applic Bisacodyl (Dulcolax) 10 mg [place] DAILY PRN PRN Reason: Constipation Clopidogrel Bisulfate (Plavix) 75 mg PO DAILY [facility] Last Admin: 02/02/18 10:59 Dose: 75 mg Docusate Sodium (Colace) 100 mg PO DAILY [facility] Last Admin: 02/02/18 10:53 Dose: 100 mg Enoxaparin Sodium (Lovenox) 30 mg SC DAILY [facility] PRN Reason: Protocol Last Admin: 02/02/18 10:58 Dose: 30 mg Escitalopram Oxalate (Lexapro) 5 mg PO HS [facility] Last Admin: 02/02/18 00:48 Dose: 5 mg Famotidine (Pepcid) 20 mg PO DAILY [facility] Last Admin: 02/02/18 10:59 Dose: 20 mg Ferrous Sulfate (Feosol) 325 mg PO DAILY [facility] Last Admin: 02/02/18 14:49 Dose: Not Given Furosemide (Lasix) 20 mg PO DAILY [facility] Last Admin: 02/02/18 10:57 Dose: 20 mg Glipizide (Glucotrol Xl) 2.5 mg PO DAILY [facility] Last Admin: 02/02/18 10:54 Dose: 2.5 mg Home Med (Hydrogen Peroxide [Peroxyl Dental Rinse]) 1 appl TOP MOWEFR [facility] Piperacillin Sod/Tazobactam (Sod 3.375 gm/ Sodium Chloride) 100 mls @ 100 mls/ hr IVPB Q8 [facility] PRN Reason: Protocol Last Admin: 02/02/18 12:27 Dose: 100 mls/hr Sodium Chloride (Sodium Chloride 0.45%) 1,000 mls @ 60 mls/hr IV .[id number] [facility] Stop: 02/03/18 09:32 Last Admin: 02/02/18 11:01 Dose: 60 mls/hr Isosorbide Mononitrate (Imdur Er) 30 mg PO DAILY [facility] Last Admin: 02/02/18 10:54 Dose: 30 mg Ketorolac Tromethamine (Toradol) 15 mg IVP Q6 PRN PRN Reason: Pain, severe (8-10) Lactobacillus Acidophilus (Bacid Acidophilus) 1 cap PO BID [facility] Last Admin: 02/02/18 10:52 Dose: 1 cap Magnesium Hydroxide (Milk Of Magnesia) 30 ml PO HS PRN PRN Reason: Constipation Memantine (Namenda) 5 mg PO DAILY [facility] Last Admin: 02/02/18 10:59 Dose: 5 mg Methimazole (Tapazole) 5 mg PO DAILY [facility] Last Admin: 02/02/18 11:00 Dose: 5 mg Metoprolol Tartrate (Lopressor) 25 mg PO Q12 [facility] Last Admin: 02/02/18 10:57 Dose: 25 mg Miconazole Nitrate (Critic-Aid Clear Af) 1 applic TOP BID [facility] Last Admin: 02/01/18 17:09 Dose: 1 applic Petrolatum (Desitin Maximum Strength Topical 40% Oint) 1 applic TOP QSHIFT [facility] Risperidone (Risperidone Odt 0.25mg) 0.25 mg PO Q12 PRN PRN Reason: Psychosis Last Admin: 02/01/18 21:24 Dose: 0.25 mg Results - Vital Signs Recent Vital Signs: Last Vital Signs Temp 97.9 F 02/02/18 08:17 Pulse 83 02/02/18 10:57 Resp 20 02/02/18 08:17 BP 110/69 02/02/18 10:57 Pulse Ox 100 02/02/18 08:17 - Labs Result Diagrams: 02/02/18 05:20 02/02/18 05:20 Labs: Laboratory Results - last 24 hr 02/01/18 02/02/18 02/02/18 05:20 05:20 05:20 WBC 14.1 H RBC 3.58 L Hgb 8.6 L Hct 27.8 L MCV 77.5 L MCH 23.9 L MCHC 30.8 L RDW 20.4 H Plt Count 282 Sodium Potassium Chloride Carbon Dioxide Anion Gap BUN Creatinine Est GFR ( Amer) Est GFR (Non-Af Amer) Random Glucose Calcium Total Bilirubin AST ALT Alkaline Phosphatase Total Protein Albumin Globulin Albumin/Globulin Ratio Procalcitonin 0.13 L TSH 3rd Generation Vancomycin Trough 16.0 H 02/02/18 05:20 WBC RBC Hgb Hct MCV MCH MCHC RDW Plt Count Sodium 138 Potassium 4.2 Chloride 100 Carbon Dioxide 22 Anion Gap 20 BUN 41 H Creatinine 1.4 H Est GFR ( Amer) 44 Est GFR (Non-Af Amer) 36 Random Glucose 109 H Calcium 9.3 Total Bilirubin 1.2 AST 27 ALT 39 Alkaline Phosphatase 115 Total Protein 7.0 Albumin 3.3 L Globulin 3.7 Albumin/Globulin Ratio 0.9 L Procalcitonin TSH 3rd Generation 2.63 Vancomycin Trough
--- NOTE | 2018-02-02 16:36 | CP.PCM.CON ---
History of Present Illness - History of Present Illness History of Present Illness: THE PATIENT IS A 77 YEAR OLD FEMALE KNOWN TO ME FROM [facility]. SHE HAS A HISTORY OF CAD, DIASTOLIC CHF, HYPERTENSION, HYPERLIPIDEMIA, COPD, CHRONIC SMALL LEFT PLEURAL EFFUSION, TYPE 2 DM, VENOUS INSUFFICIENCY AND PAD. SHE HAD AN ABNORMAL PHARMACOLOGICAL STRESS TEST WITH SCARRING AND ISCHEMIA BUT DECLINED FURTHER [place] WITH A CARDIAC CATH. SHE DECLINED A PAD WORK-UP IN THE PAST. SHE HAS HAD RECURRENT EPISODES OF BILATERAL LEG EDEMA, BLISTERING AND ULCERATIONS AND WAS ON ANTIBIOTICS PER ID. SHE IS NOW ADMITTED FOR RECURRENT LEG EDEMA WITH LE ULCERATIONS AND CELLULITIS. I WAS ASKED TO SEE HER. SHE HAD ABNORMAL IPG STUDY WILL AT [facility]. SHE HAD AN ANGIOGRAPHY STUDY ON 01/31/18 THAT SHOWED SEVERE BILATERAL ILIOFEMORAL AND LE PAD. IT SHOULD BE NOTED THAT THE PATIENT WAS ON STATINS BEFORE BUT SHE STOPPED THEM DUE TO GI SIDE EFFECTS. Past Patient History - Infectious Disease Hx of Infectious Diseases: None - Past Medical History & Family History Past Medical History?: Yes - Past Social History Smoking Status: Former Smoker - CARDIAC Hx Congestive Heart Failure: Yes Hx Hypercholesterolemia: Yes Hx Hypertension: Yes Hx Peripheral Edema: Yes - PULMONARY Hx Bronchitis: Yes Hx Chronic Obstructive Pulmonary Disease (COPD): Yes Hx Pneumonia: Yes - NEUROLOGICAL Other/Comment: Paresthesias of both feet - HEENT Hx HEENT Problems: No - RENAL Hx Chronic Kidney Disease: Yes Hx Kidney Stones: Yes (kidney stone removal) - ENDOCRINE/METABOLIC Hx Hyperthyroidism: Yes - HEMATOLOGICAL/ONCOLOGICAL Hx Anemia: Yes Hx Human Immunodeficiency Virus (HIV): No - INTEGUMENTARY Hx Dermatological Problems: Yes Other/Comment: Dependent edema of both lower extremities with blister formation - MUSCULOSKELETAL/RHEUMATOLOGICAL Hx Falls: Yes - GASTROINTESTINAL Hx Gastrointestinal Disorders: No - GENITOURINARY/GYNECOLOGICAL Hx Genitourinary Disorders: No - PSYCHIATRIC Hx Psychophysiologic Disorder: No Hx Substance Use: No - SURGICAL HISTORY Hx Appendectomy: Yes - ANESTHESIA Hx Anesthesia: Yes Hx Anesthesia Reactions: No Hx Malignant Hyperthermia: No Meds Allergies/Adverse Reactions: Allergies Allergy/AdvReac Type Severity Reaction Status Date / Time No Known Allergies Allergy Verified 12/18/17 16:07 - Medications Medications: Current Medications Acetaminophen (Tylenol 325mg Tab) 650 mg PO Q4 PRN PRN Reason: Pain, Mild (1-3) Acetaminophen (Tylenol 325mg Tab) 650 mg PO Q4 PRN PRN Reason: TEMP >100 Bacitracin (Bacitracin Oint) 1 applic TOP DAILY [facility] Last Admin: 02/01/18 17:09 Dose: 1 applic Bisacodyl (Dulcolax) 10 mg [place] DAILY PRN PRN Reason: Constipation Clopidogrel Bisulfate (Plavix) 75 mg PO DAILY [facility] Last Admin: 02/02/18 10:59 Dose: 75 mg Docusate Sodium (Colace) 100 mg PO DAILY [facility] Last Admin: 02/02/18 10:53 Dose: 100 mg Enoxaparin Sodium (Lovenox) 30 mg SC DAILY [facility] PRN Reason: Protocol Last Admin: 02/02/18 10:58 Dose: 30 mg Escitalopram Oxalate (Lexapro) 5 mg PO HS [facility] Last Admin: 02/02/18 00:48 Dose: 5 mg Famotidine (Pepcid) 20 mg PO DAILY [facility] Last Admin: 02/02/18 10:59 Dose: 20 mg Ferrous Sulfate (Feosol) 325 mg PO DAILY [facility] Last Admin: 02/02/18 14:49 Dose: Not Given Furosemide (Lasix) 20 mg PO DAILY [facility] Last Admin: 02/02/18 10:57 Dose: 20 mg Glipizide (Glucotrol Xl) 2.5 mg PO DAILY [facility] Last Admin: 02/02/18 10:54 Dose: 2.5 mg Home Med (Hydrogen Peroxide [Peroxyl Dental Rinse]) 1 appl TOP MOWEFR [facility] Piperacillin Sod/Tazobactam (Sod 3.375 gm/ Sodium Chloride) 100 mls @ 100 mls/ hr IVPB Q8 [facility] PRN Reason: Protocol Last Admin: 02/02/18 12:27 Dose: 100 mls/hr Sodium Chloride (Sodium Chloride 0.45%) 1,000 mls @ 60 mls/hr IV .[id number] [facility] Stop: 02/03/18 09:32 Last Admin: 02/02/18 11:01 Dose: 60 mls/hr Isosorbide Mononitrate (Imdur Er) 30 mg PO DAILY [facility] Last Admin: 02/02/18 10:54 Dose: 30 mg Ketorolac Tromethamine (Toradol) 15 mg IVP Q6 PRN PRN Reason: Pain, severe (8-10) Lactobacillus Acidophilus (Bacid Acidophilus) 1 cap PO BID [facility] Last Admin: 02/02/18 10:52 Dose: 1 cap Magnesium Hydroxide (Milk Of Magnesia) 30 ml PO HS PRN PRN Reason: Constipation Memantine (Namenda) 5 mg PO DAILY [facility] Last Admin: 02/02/18 10:59 Dose: 5 mg Methimazole (Tapazole) 5 mg PO DAILY [facility] Last Admin: 02/02/18 11:00 Dose: 5 mg Metoprolol Tartrate (Lopressor) 25 mg PO Q12 [facility] Last Admin: 02/02/18 10:57 Dose: 25 mg Miconazole Nitrate (Critic-Aid Clear Af) 1 applic TOP BID [facility] Last Admin: 02/01/18 17:09 Dose: 1 applic Petrolatum (Desitin Maximum Strength Topical 40% Oint) 1 applic TOP QSHIFT [facility] Risperidone (Risperidone Odt 0.25mg) 0.25 mg PO Q12 PRN PRN Reason: Psychosis Last Admin: 02/01/18 21:24 Dose: 0.25 mg Physical Exam - Respiratory Exam Respiratory Exam: Decreased Breath Sounds - Cardiovascular Exam Cardiovascular Exam: REGULAR RHYTHM, +S1, +S2 - Extremities Exam Additional comments: BILATERAL LE SURGICAL DRESSINGS ABOVE WHICH COULD BE SEEN MULTIPLE AND LARGE ULCERATIONS - Additional Findings Additional findings: EKG ST, ST_T CHANGES ID, PODIATRY, PSYCH, AND RENAL NOTES REVIEWED ANGIOGRAM REPORT REVIEWED Results - Vital Signs Recent Vital Signs: Last Vital Signs Temp 97.9 F 02/02/18 08:17 Pulse 83 02/02/18 10:57 Resp 20 02/02/18 08:17 BP 110/69 02/02/18 10:57 Pulse Ox 100 02/02/18 08:17 - Labs Result Diagrams: 02/03/18 10:47 02/04/18 08:44 Labs: Laboratory Results - last 24 hr 02/01/18 02/02/18 02/02/18 05:20 05:20 05:20 WBC 14.1 H RBC 3.58 L Hgb 8.6 L Hct 27.8 L MCV 77.5 L MCH 23.9 L MCHC 30.8 L RDW 20.4 H Plt Count 282 Sodium Potassium Chloride Carbon Dioxide Anion Gap BUN Creatinine Est GFR ( Amer) Est GFR (Non-Af Amer) Random Glucose Calcium Total Bilirubin AST ALT Alkaline Phosphatase Total Protein Albumin Globulin Albumin/Globulin Ratio Procalcitonin 0.13 L TSH 3rd Generation Vancomycin Trough 16.0 H 02/02/18 05:20 WBC RBC Hgb Hct MCV MCH MCHC RDW Plt Count Sodium 138 Potassium 4.2 Chloride 100 Carbon Dioxide 22 Anion Gap 20 BUN 41 H Creatinine 1.4 H Est GFR ( Amer) 44 Est GFR (Non-Af Amer) 36 Random Glucose 109 H Calcium 9.3 Total Bilirubin 1.2 AST 27 ALT 39 Alkaline Phosphatase 115 Total Protein 7.0 Albumin 3.3 L Globulin 3.7 Albumin/Globulin Ratio 0.9 L Procalcitonin TSH 3rd Generation 2.63 Vancomycin Trough Assessment & Plan - Assessment and Plan (Free Text) Assessment: CAD HYPERTENSION COPD ABBEY PAD LE CELLUTITIS AND ULCERATIONS 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
--- NOTE | 2018-02-02 16:39 | CP.PCM.PN ---
Subjective - Date & Time of Evaluation Date of Evaluation: 02/02/18 Time of Evaluation: 22:22 - Subjective Subjective: Abo0ve noted Objective - Vital Signs/Intake and Output Vital Signs (last 24 hours): Temp Pulse Resp BP Pulse Ox 97.9 F 83 20 110/69 100 02/02/18 08:17 02/02/18 10:57 02/02/18 08:17 02/02/18 10:57 02/02/18 08:17 - Medications Medications: Current Medications Acetaminophen (Tylenol 325mg Tab) 650 mg PO Q4 PRN PRN Reason: Pain, Mild (1-3) Acetaminophen (Tylenol 325mg Tab) 650 mg PO Q4 PRN PRN Reason: TEMP >100 Bacitracin (Bacitracin Oint) 1 applic TOP DAILY [facility] Last Admin: 02/01/18 17:09 Dose: 1 applic Bisacodyl (Dulcolax) 10 mg [place] DAILY PRN PRN Reason: Constipation Clopidogrel Bisulfate (Plavix) 75 mg PO DAILY [facility] Last Admin: 02/02/18 10:59 Dose: 75 mg Docusate Sodium (Colace) 100 mg PO DAILY [facility] Last Admin: 02/02/18 10:53 Dose: 100 mg Enoxaparin Sodium (Lovenox) 30 mg SC DAILY [facility] PRN Reason: Protocol Last Admin: 02/02/18 10:58 Dose: 30 mg Escitalopram Oxalate (Lexapro) 5 mg PO HS [facility] Last Admin: 02/02/18 00:48 Dose: 5 mg Famotidine (Pepcid) 20 mg PO DAILY [facility] Last Admin: 02/02/18 10:59 Dose: 20 mg Ferrous Sulfate (Feosol) 325 mg PO DAILY [facility] Last Admin: 02/02/18 14:49 Dose: Not Given Furosemide (Lasix) 20 mg PO DAILY [facility] Last Admin: 02/02/18 10:57 Dose: 20 mg Glipizide (Glucotrol Xl) 2.5 mg PO DAILY [facility] Last Admin: 02/02/18 10:54 Dose: 2.5 mg Home Med (Hydrogen Peroxide [Peroxyl Dental Rinse]) 1 appl TOP MOWEFR [facility] Piperacillin Sod/Tazobactam (Sod 3.375 gm/ Sodium Chloride) 100 mls @ 100 mls/ hr IVPB Q8 [facility] PRN Reason: Protocol Last Admin: 02/02/18 12:27 Dose: 100 mls/hr Sodium Chloride (Sodium Chloride 0.45%) 1,000 mls @ 60 mls/hr IV .[id number] [facility] Stop: 02/03/18 09:32 Last Admin: 02/02/18 11:01 Dose: 60 mls/hr Isosorbide Mononitrate (Imdur Er) 30 mg PO DAILY [facility] Last Admin: 02/02/18 10:54 Dose: 30 mg Ketorolac Tromethamine (Toradol) 15 mg IVP Q6 PRN PRN Reason: Pain, severe (8-10) Lactobacillus Acidophilus (Bacid Acidophilus) 1 cap PO BID [facility] Last Admin: 02/02/18 10:52 Dose: 1 cap Magnesium Hydroxide (Milk Of Magnesia) 30 ml PO HS PRN PRN Reason: Constipation Memantine (Namenda) 5 mg PO DAILY [facility] Last Admin: 02/02/18 10:59 Dose: 5 mg Methimazole (Tapazole) 5 mg PO DAILY [facility] Last Admin: 02/02/18 11:00 Dose: 5 mg Metoprolol Tartrate (Lopressor) 25 mg PO Q12 [facility] Last Admin: 02/02/18 10:57 Dose: 25 mg Miconazole Nitrate (Critic-Aid Clear Af) 1 applic TOP BID [facility] Last Admin: 02/01/18 17:09 Dose: 1 applic Petrolatum (Desitin Maximum Strength Topical 40% Oint) 1 applic TOP QSHIFT [facility] Risperidone (Risperidone Odt 0.25mg) 0.25 mg PO Q12 PRN PRN Reason: Psychosis Last Admin: 02/01/18 21:24 Dose: 0.25 mg - Labs Labs: 02/02/18 05:20 02/02/18 05:20 PT 13.3 Seconds (9.8-13.1) H 01/30/18 17:15 INR 1.2 (0.9-1.2) 01/30/18 17:15 APTT 25.4 Seconds (25.6-37.1) L 01/30/18 17:15 - Respiratory Exam Respiratory Exam: NORMAL BREATHING PATTERN - Cardiovascular Exam Cardiovascular Exam: Tachycardia, REGULAR RHYTHM - GI/Abdominal Exam GI & Abdominal Exam: Normal Bowel Sounds Assessment and Plan - Assessment and Plan (Free Text) Assessment: Low ext edema cellulitis Significant Arterial occlusive dx Wound cs Serratia Leg elevation IV ABX Zosyn/ Vanco ID Podiatry Surgery Physiatry Vascular Psychiatric dx?? Ultram?? Adj disorder with depression Psychiatry SSRI Resperidol ABBEY/ CKD creat increased (contrast study??) Nephrology IVF CHF Diastolic CAD stress thalium scarring ischemia?? cardiac cath refused?? Cardiology Hx COPD L Pleural effusion Pulmonary Hx Anemia ASA d/c as outpt due to dec Hbg NIDDM Thyroid dx Endo
[2018-02-02] MEDS: Bacitracin OINT 15GM TOP SCH (18:50)
[2018-02-03] MEDS: Piperacillin/Tazobact 3.375 GM in Sodium Chloride 0.9% 100 ML IVPB SCH ×2 (00:52→11:07)
[2018-02-03] MEDS: Sodium Chloride 0.45% 1,000 ML IV SCH ×2 (02:35→13:14)
--- NOTE | 2018-02-03 08:08 | CP.PCM.CON ---
Past Patient History - Infectious Disease Hx of Infectious Diseases: None - Past Medical History & Family History Past Medical History?: Yes - Past Social History Smoking Status: Former Smoker - CARDIAC Hx Congestive Heart Failure: Yes Hx Hypercholesterolemia: Yes Hx Hypertension: Yes Hx Peripheral Edema: Yes - PULMONARY Hx Bronchitis: Yes Hx Chronic Obstructive Pulmonary Disease (COPD): Yes Hx Pneumonia: Yes - NEUROLOGICAL Other/Comment: Paresthesias of both feet - HEENT Hx HEENT Problems: No - RENAL Hx Chronic Kidney Disease: Yes Hx Kidney Stones: Yes (kidney stone removal) - ENDOCRINE/METABOLIC Hx Hyperthyroidism: Yes - HEMATOLOGICAL/ONCOLOGICAL Hx Anemia: Yes Hx Human Immunodeficiency Virus (HIV): No - INTEGUMENTARY Hx Dermatological Problems: Yes Other/Comment: Dependent edema of both lower extremities with blister formation - MUSCULOSKELETAL/RHEUMATOLOGICAL Hx Falls: Yes - GASTROINTESTINAL Hx Gastrointestinal Disorders: No - GENITOURINARY/GYNECOLOGICAL Hx Genitourinary Disorders: No - PSYCHIATRIC Hx Psychophysiologic Disorder: No Hx Substance Use: No - SURGICAL HISTORY Hx Appendectomy: Yes - ANESTHESIA Hx Anesthesia: Yes Hx Anesthesia Reactions: No Hx Malignant Hyperthermia: No Meds Allergies/Adverse Reactions: Allergies Allergy/AdvReac Type Severity Reaction Status Date / Time No Known Allergies Allergy Verified 12/18/17 16:07 - Medications Medications: Current Medications Acetaminophen (Tylenol 325mg Tab) 650 mg PO Q4 PRN PRN Reason: Pain, Mild (1-3) Acetaminophen (Tylenol 325mg Tab) 650 mg PO Q4 PRN PRN Reason: TEMP >100 Bacitracin (Bacitracin Oint) 1 applic TOP DAILY [facility] Last Admin: 02/02/18 18:50 Dose: 1 applic Bisacodyl (Dulcolax) 10 mg HI DAILY PRN PRN Reason: Constipation Clopidogrel Bisulfate (Plavix) 75 mg PO DAILY [facility] Last Admin: 02/02/18 10:59 Dose: 75 mg Docusate Sodium (Colace) 100 mg PO DAILY [facility] Last Admin: 02/02/18 10:53 Dose: 100 mg Enoxaparin Sodium (Lovenox) 30 mg SC DAILY [facility] PRN Reason: Protocol Last Admin: 02/02/18 10:58 Dose: 30 mg Escitalopram Oxalate (Lexapro) 5 mg PO HS [facility] Last Admin: 02/02/18 21:33 Dose: 5 mg Famotidine (Pepcid) 20 mg PO DAILY [facility] Last Admin: 02/02/18 10:59 Dose: 20 mg Ferrous Sulfate (Feosol) 325 mg PO DAILY [facility] Last Admin: 02/02/18 14:49 Dose: Not Given Furosemide (Lasix) 20 mg PO DAILY [facility] Last Admin: 02/02/18 10:57 Dose: 20 mg Glipizide (Glucotrol Xl) 2.5 mg PO DAILY [facility] Last Admin: 02/02/18 10:54 Dose: 2.5 mg Home Med (Hydrogen Peroxide [Peroxyl Dental Rinse]) 1 appl TOP MOWEFR [facility] Piperacillin Sod/Tazobactam (Sod 3.375 gm/ Sodium Chloride) 100 mls @ 100 mls/ hr IVPB Q8 [facility] PRN Reason: Protocol Last Admin: 02/03/18 00:52 Dose: 100 mls/hr Sodium Chloride (Sodium Chloride 0.45%) 1,000 mls @ 60 mls/hr IV .[id number] [facility] Stop: 02/03/18 09:32 Last Admin: 02/03/18 02:35 Dose: 60 mls/hr Isosorbide Mononitrate (Imdur Er) 30 mg PO DAILY [facility] Last Admin: 02/02/18 10:54 Dose: 30 mg Lactobacillus Acidophilus (Bacid Acidophilus) 1 cap PO BID [facility] Last Admin: 02/02/18 18:47 Dose: 1 cap Magnesium Hydroxide (Milk Of Magnesia) 30 ml PO HS PRN PRN Reason: Constipation Last Admin: 02/02/18 21:33 Dose: 30 ml Memantine (Namenda) 5 mg PO DAILY [facility] Last Admin: 02/02/18 10:59 Dose: 5 mg Methimazole (Tapazole) 5 mg PO DAILY [facility] Last Admin: 02/02/18 11:00 Dose: 5 mg Metoprolol Tartrate (Lopressor) 25 mg PO Q12 [facility] Last Admin: 02/02/18 21:33 Dose: 25 mg Miconazole Nitrate (Critic-Aid Clear Af) 1 applic TOP BID [facility] Last Admin: 02/02/18 18:47 Dose: 1 applic Petrolatum (Desitin Maximum Strength Topical 40% Oint) 1 applic TOP QSHIFT [facility] Risperidone (Risperidone Odt 0.25mg) 0.25 mg PO Q12 PRN PRN Reason: Psychosis Last Admin: 02/01/18 21:24 Dose: 0.25 mg Results - Vital Signs Recent Vital Signs: Last Vital Signs Temp 98.3 F 02/03/18 07:50 Pulse 79 02/03/18 07:50 Resp 20 02/03/18 07:50 BP 122/80 02/03/18 07:50 Pulse Ox 99 02/03/18 07:50 - Labs Result Diagrams: 02/02/18 05:20 02/02/18 05:20 Labs: Laboratory Results - last 24 hr 02/02/18 02/03/18 05:20 06:00 TSH 3rd Generation 2.63 Random Vancomycin 11.6 Assessment & Plan - Date & Time Date: 02/03/18 Time: 08:08
[2018-02-03] MEDS: Bacitracin OINT 15GM TOP SCH (09:00)
--- NOTE | 2018-02-03 09:15 | CP.PCM.PN ---
Subjective - Date & Time of Evaluation Date of Evaluation: 02/03/18 Time of Evaluation: 09:00 - Subjective Subjective: NO CHEST PAIN OR SOB Objective - Vital Signs/Intake and Output Vital Signs (last 24 hours): Temp Pulse Resp BP Pulse Ox 98.3 F 79 20 122/80 99 02/03/18 07:50 02/03/18 07:50 02/03/18 07:50 02/03/18 07:50 02/03/18 07:50 - Medications Medications: Current Medications Acetaminophen (Tylenol 325mg Tab) 650 mg PO Q4 PRN PRN Reason: Pain, Mild (1-3) Acetaminophen (Tylenol 325mg Tab) 650 mg PO Q4 PRN PRN Reason: TEMP >100 Bacitracin (Bacitracin Oint) 1 applic TOP DAILY [facility] Last Admin: 02/02/18 18:50 Dose: 1 applic Bisacodyl (Dulcolax) 10 mg [place] DAILY PRN PRN Reason: Constipation Clopidogrel Bisulfate (Plavix) 75 mg PO DAILY [facility] Last Admin: 02/02/18 10:59 Dose: 75 mg Docusate Sodium (Colace) 100 mg PO DAILY [facility] Last Admin: 02/02/18 10:53 Dose: 100 mg Escitalopram Oxalate (Lexapro) 5 mg PO HS [facility] Last Admin: 02/02/18 21:33 Dose: 5 mg Famotidine (Pepcid) 20 mg PO DAILY [facility] Last Admin: 02/02/18 10:59 Dose: 20 mg Ferrous Sulfate (Feosol) 325 mg PO DAILY [facility] Last Admin: 02/02/18 14:49 Dose: Not Given Furosemide (Lasix) 20 mg PO DAILY [facility] Last Admin: 02/02/18 10:57 Dose: 20 mg Glipizide (Glucotrol Xl) 2.5 mg PO DAILY [facility] Last Admin: 02/02/18 10:54 Dose: 2.5 mg Home Med (Hydrogen Peroxide [Peroxyl Dental Rinse]) 1 appl TOP MOWEFR [facility] Piperacillin Sod/Tazobactam (Sod 3.375 gm/ Sodium Chloride) 100 mls @ 100 mls/ hr IVPB Q8 [facility] PRN Reason: Protocol Last Admin: 02/03/18 00:52 Dose: 100 mls/hr Sodium Chloride (Sodium Chloride 0.45%) 1,000 mls @ 60 mls/hr IV .[id number] [facility] Stop: 02/03/18 09:32 Last Admin: 02/03/18 02:35 Dose: 60 mls/hr Isosorbide Mononitrate (Imdur Er) 30 mg PO DAILY [facility] Last Admin: 02/02/18 10:54 Dose: 30 mg Lactobacillus Acidophilus (Bacid Acidophilus) 1 cap PO BID [facility] Last Admin: 02/02/18 18:47 Dose: 1 cap Magnesium Hydroxide (Milk Of Magnesia) 30 ml PO HS PRN PRN Reason: Constipation Last Admin: 02/02/18 21:33 Dose: 30 ml Memantine (Namenda) 5 mg PO DAILY [facility] Last Admin: 02/02/18 10:59 Dose: 5 mg Methimazole (Tapazole) 5 mg PO DAILY [facility] Last Admin: 02/02/18 11:00 Dose: 5 mg Metoprolol Tartrate (Lopressor) 25 mg PO Q12 [facility] Last Admin: 02/02/18 21:33 Dose: 25 mg Miconazole Nitrate (Critic-Aid Clear Af) 1 applic TOP BID [facility] Last Admin: 02/02/18 18:47 Dose: 1 applic Petrolatum (Desitin Maximum Strength Topical 40% Oint) 1 applic TOP QSHIFT [facility] Risperidone (Risperidone Odt 0.25mg) 0.25 mg PO Q12 PRN PRN Reason: Psychosis Last Admin: 02/01/18 21:24 Dose: 0.25 mg - Labs Labs: 02/02/18 05:20 02/02/18 05:20 PT 13.3 Seconds (9.8-13.1) H 01/30/18 17:15 INR 1.2 (0.9-1.2) 01/30/18 17:15 APTT 25.4 Seconds (25.6-37.1) L 01/30/18 17:15 - Respiratory Exam Respiratory Exam: Decreased Breath Sounds - Cardiovascular Exam Cardiovascular Exam: REGULAR RHYTHM, +S1, +S2 - Extremities Exam Additional comments: BILATERAL LE ULCERATIONS Assessment and Plan - Assessment and Plan (Free Text) Assessment: BILATERAL LE CELLULITIS AND ULCERATIONS HYPERTENSION HYPERLIPIDEMIA PAD TYPE 2 DM COPD Plan: CONTINUE METOPROLOL, IMDUR, CLOPIDOGREL,FUROSEMIDE AND ANTIBIOTICS
[2018-02-03] MEDS: Lactobacillus Acidophilus 500 MU Cap PO SCH ×2 (09:47→17:15)
[2018-02-03] MEDS: Critic-Aid Clear AF TOP SCH ×2 (09:51→17:15)
[2018-02-03] MEDS: GlipiZIDE 2.5 mg SR Tab PO SCH (09:53)
[2018-02-03] MEDS: Enoxaparin 30 mg Syringe SC SCH (09:55)
[2018-02-03] MEDS: methIMAzole 5 MG TAB PO SCH (09:57)
--- NOTE | 2018-02-03 10:00 | CP.PCM.PN ---
Subjective - Date & Time of Evaluation Date of Evaluation: 02/03/18 Time of Evaluation: 10:00 - Subjective Subjective: Patient sitting down but the bedside and eating breakfast. Patient appears to be comfortable no acute distress. No nausea or vomiting no chest pain reported Vital sign noted. Objective - Vital Signs/Intake and Output Vital Signs (last 24 hours): Temp Pulse Resp BP Pulse Ox 98.3 F 79 20 122/80 99 02/03/18 07:50 02/03/18 07:50 02/03/18 07:50 02/03/18 07:50 02/03/18 07:50 - Medications Medications: Current Medications Acetaminophen (Tylenol 325mg Tab) 650 mg PO Q4 PRN PRN Reason: Pain, Mild (1-3) Acetaminophen (Tylenol 325mg Tab) 650 mg PO Q4 PRN PRN Reason: TEMP >100 Bacitracin (Bacitracin Oint) 1 applic TOP DAILY [facility] Last Admin: 02/02/18 18:50 Dose: 1 applic Bisacodyl (Dulcolax) 10 mg [place] DAILY PRN PRN Reason: Constipation Clopidogrel Bisulfate (Plavix) 75 mg PO DAILY [facility] Last Admin: 02/02/18 10:59 Dose: 75 mg Docusate Sodium (Colace) 100 mg PO DAILY [facility] Last Admin: 02/02/18 10:53 Dose: 100 mg Escitalopram Oxalate (Lexapro) 5 mg PO HS [facility] Last Admin: 02/02/18 21:33 Dose: 5 mg Famotidine (Pepcid) 20 mg PO DAILY [facility] Last Admin: 02/02/18 10:59 Dose: 20 mg Ferrous Sulfate (Feosol) 325 mg PO DAILY [facility] Last Admin: 02/02/18 14:49 Dose: Not Given Furosemide (Lasix) 20 mg PO DAILY [facility] Last Admin: 02/02/18 10:57 Dose: 20 mg Glipizide (Glucotrol Xl) 2.5 mg PO DAILY [facility] Last Admin: 02/02/18 10:54 Dose: 2.5 mg Home Med (Hydrogen Peroxide [Peroxyl Dental Rinse]) 1 appl TOP MOWEFR [facility] Piperacillin Sod/Tazobactam (Sod 3.375 gm/ Sodium Chloride) 100 mls @ 100 mls/ hr IVPB Q8 [facility] PRN Reason: Protocol Last Admin: 02/03/18 00:52 Dose: 100 mls/hr Ibuprofen (Motrin Tab) 400 mg PO Q6 PRN PRN Reason: Pain, moderate (4-7) Isosorbide Mononitrate (Imdur Er) 30 mg PO DAILY [facility] Last Admin: 02/02/18 10:54 Dose: 30 mg Lactobacillus Acidophilus (Bacid Acidophilus) 1 cap PO BID [facility] Last Admin: 02/02/18 18:47 Dose: 1 cap Magnesium Hydroxide (Milk Of Magnesia) 30 ml PO HS PRN PRN Reason: Constipation Last Admin: 02/02/18 21:33 Dose: 30 ml Memantine (Namenda) 5 mg PO DAILY [facility] Last Admin: 02/02/18 10:59 Dose: 5 mg Methimazole (Tapazole) 5 mg PO DAILY [facility] Last Admin: 02/02/18 11:00 Dose: 5 mg Metoprolol Tartrate (Lopressor) 25 mg PO Q12 [facility] Last Admin: 02/02/18 21:33 Dose: 25 mg Miconazole Nitrate (Critic-Aid Clear Af) 1 applic TOP BID [facility] Last Admin: 02/02/18 18:47 Dose: 1 applic Petrolatum (Desitin Maximum Strength Topical 40% Oint) 1 applic TOP QSHIFT [facility] Risperidone (Risperidone Odt 0.25mg) 0.25 mg PO Q12 PRN PRN Reason: Psychosis Last Admin: 02/01/18 21:24 Dose: 0.25 mg - Labs Labs: 02/02/18 05:20 02/02/18 05:20 PT 13.3 Seconds (9.8-13.1) H 01/30/18 17:15 INR 1.2 (0.9-1.2) 01/30/18 17:15 APTT 25.4 Seconds (25.6-37.1) L 01/30/18 17:15 - Constitutional Appears: No Acute Distress - ENT Exam ENT Exam: Mucous Membranes Moist - Neck Exam Neck Exam: absent: Lymphadenopathy - Respiratory Exam Respiratory Exam: NORMAL BREATHING PATTERN. absent: Chest Wall Tenderness - Cardiovascular Exam Cardiovascular Exam: absent: JVD, Rubs - GI/Abdominal Exam GI & Abdominal Exam: Soft, Normal Bowel Sounds - Extremities Exam Extremities Exam: absent: Calf Tenderness - Back Exam Back Exam: absent: CVA tenderness (L), CVA tenderness (R) - Neurological Exam Neurological Exam: Alert - Psychiatric Exam Psychiatric exam: Normal Affect - Skin Skin Exam: absent: Cyanosis Assessment and Plan (1) ABBEY (acute kidney injury) Assessment & Plan: ABBEY/perhaps superimposed on chronic kidney disease stage II or 3 not sure at this point. related to multifactorial perhaps the cellulitis infection may have been the cause?. Also noted the patient has been taken nonsteroidal anti-inflammatory drug which has been discontinued. cellulitis of the lower extremity PVD /HTN /DM/ CAD /CHF continue monitoring. At the last admission patient did have acute kidney injury and improve after changing the antibiotics at per renal dose among other things. Status: Acute (2) Cellulitis, leg Status: Acute (3) PVD (peripheral vascular disease) Status: Acute (4) Anemia Status: Acute
--- NOTE | 2018-02-03 10:34 | CP.PCM.PN ---
Subjective - Date & Time of Evaluation Date of Evaluation: 02/03/18 Time of Evaluation: 08:00 - Subjective Subjective: events noted no iv access wounds same afeb Objective - Vital Signs/Intake and Output Vital Signs (last 24 hours): Temp Pulse Resp BP Pulse Ox 98.3 F 79 20 122/80 99 02/03/18 07:50 02/03/18 07:50 02/03/18 07:50 02/03/18 09:55 02/03/18 07:50 - Medications Medications: Current Medications Acetaminophen (Tylenol 325mg Tab) 650 mg PO Q4 PRN PRN Reason: Pain, Mild (1-3) Acetaminophen (Tylenol 325mg Tab) 650 mg PO Q4 PRN PRN Reason: TEMP >100 Bacitracin (Bacitracin Oint) 1 applic TOP DAILY [facility] Last Admin: 02/02/18 18:50 Dose: 1 applic Bisacodyl (Dulcolax) 10 mg [place] DAILY PRN PRN Reason: Constipation Clopidogrel Bisulfate (Plavix) 75 mg PO DAILY [facility] Last Admin: 02/03/18 09:57 Dose: 75 mg Docusate Sodium (Colace) 100 mg PO DAILY [facility] Last Admin: 02/03/18 09:48 Dose: 100 mg Escitalopram Oxalate (Lexapro) 5 mg PO HS [facility] Last Admin: 02/02/18 21:33 Dose: 5 mg Famotidine (Pepcid) 20 mg PO DAILY [facility] Last Admin: 02/03/18 09:57 Dose: 20 mg Ferrous Sulfate (Feosol) 325 mg PO DAILY [facility] Last Admin: 02/03/18 09:51 Dose: 325 mg Furosemide (Lasix) 20 mg PO DAILY [facility] Last Admin: 02/03/18 09:54 Dose: 20 mg Glipizide (Glucotrol Xl) 2.5 mg PO DAILY [facility] Last Admin: 02/03/18 09:53 Dose: 2.5 mg Home Med (Hydrogen Peroxide [Peroxyl Dental Rinse]) 1 appl TOP MOWEFR [facility] Piperacillin Sod/Tazobactam (Sod 3.375 gm/ Sodium Chloride) 100 mls @ 100 mls/ hr IVPB Q8 [facility] PRN Reason: Protocol Last Admin: 02/03/18 00:52 Dose: 100 mls/hr Ibuprofen (Motrin Tab) 400 mg PO Q6 PRN PRN Reason: Pain, moderate (4-7) Isosorbide Mononitrate (Imdur Er) 30 mg PO DAILY [facility] Last Admin: 02/03/18 09:54 Dose: 30 mg Lactobacillus Acidophilus (Bacid Acidophilus) 1 cap PO BID [facility] Last Admin: 02/03/18 09:47 Dose: 1 cap Magnesium Hydroxide (Milk Of Magnesia) 30 ml PO HS PRN PRN Reason: Constipation Last Admin: 02/02/18 21:33 Dose: 30 ml Memantine (Namenda) 5 mg PO DAILY [facility] Last Admin: 02/03/18 09:56 Dose: 5 mg Methimazole (Tapazole) 5 mg PO DAILY [facility] Last Admin: 02/03/18 09:57 Dose: 5 mg Metoprolol Tartrate (Lopressor) 25 mg PO Q12 [facility] Last Admin: 02/03/18 09:55 Dose: 25 mg Miconazole Nitrate (Critic-Aid Clear Af) 1 applic TOP BID [facility] Last Admin: 02/03/18 09:51 Dose: 1 applic Petrolatum (Desitin Maximum Strength Topical 40% Oint) 1 applic TOP QSHIFT [facility] Risperidone (Risperidone Odt 0.25mg) 0.25 mg PO Q12 PRN PRN Reason: Psychosis Last Admin: 02/01/18 21:24 Dose: 0.25 mg - Labs Labs: 02/02/18 05:20 02/02/18 05:20 PT 13.3 Seconds (9.8-13.1) H 01/30/18 17:15 INR 1.2 (0.9-1.2) 01/30/18 17:15 APTT 25.4 Seconds (25.6-37.1) L 01/30/18 17:15 - Constitutional Appears: Non-toxic, Cachectic, Chronically Ill - Head Exam Head Exam: NORMOCEPHALIC - Eye Exam Eye Exam: absent: Scleral icterus - ENT Exam ENT Exam: Mucous Membranes Dry - Neck Exam Neck Exam: absent: Lymphadenopathy - Respiratory Exam Respiratory Exam: Decreased Breath Sounds - Cardiovascular Exam Cardiovascular Exam: REGULAR RHYTHM - GI/Abdominal Exam GI & Abdominal Exam: Distended, Soft - Rectal Exam Rectal Exam: Deferred - Extremities Exam Extremities Exam: Pedal Edema, Tenderness - Back Exam Back Exam: absent: CVA tenderness (L), CVA tenderness (R) - Neurological Exam Neurological Exam: Alert, Awake Assessment and Plan (1) Cellulitis, leg Status: Acute (2) PVD (peripheral vascular disease) Status: Acute (3) Sepsis Status: Acute - Assessment and Plan (Free Text) Assessment: cont wound care as per Dr Berrios
[2018-02-03 10:58] LABS: HEMOGLOBIN 8.2 g/dL (12.0-16.0); MEAN CORPUSCULAR HEMOGLOBIN 23.8 pg (27.0-31.0); MEAN CORPUSCULAR HGB CONC 30.9 g/dL (33.0-37.0); RBC 3.45 Mil/uL (3.80-5.20); RED CELL DISTRIBUTION WIDTH 20.1 % (11.5-14.5); WHITE BLOOD COUNT 12.4 K/uL (4.8-10.8)
--- NOTE | 2018-02-03 11:05 | CP.PCM.CON ---
History of Present Illness - History of Present Illness History of Present Illness: Consultation for evaluation of PVOD HPI: 77 year old CF with hx of severe PVOD admitted with severe bilateral non- healing ulcers of LE> Review of Systems - Review of Systems Systems not reviewed;Unavailable: Acuity of Condition - Constitutional Constitutional: As Per HPI - EENT Eyes: As Per HPI Ears: As Per HPI Nose/Mouth/Throat: As Per HPI - Breasts Breasts: As Per HPI - Cardiovascular Cardiovascular: As Per HPI - Respiratory Respiratory: As Per HPI - Gastrointestinal Gastrointestinal: As Per HPI - Genitourinary Genitourinary: As Per HPI - Reproductive: Female Reproductive:Female: As Per HPI - Menstruation Menstruation: As Per HPI - Musculoskeletal Musculoskeletal: As Per HPI - Integumentary Integumentary: As Per HPI - Neurological Neurological: As Per HPI - Psychiatric Psychiatric: As Per HPI - Endocrine Endocrine: As Per HPI - Hematologic/Lymphatic Hematologic: As Per HPI Past Patient History - Infectious Disease Hx of Infectious Diseases: None - Past Medical History & Family History Past Medical History?: Yes - Past Social History Smoking Status: Former Smoker - CARDIAC Hx Congestive Heart Failure: Yes Hx Hypercholesterolemia: Yes Hx Hypertension: Yes Hx Peripheral Edema: Yes - PULMONARY Hx Bronchitis: Yes Hx Chronic Obstructive Pulmonary Disease (COPD): Yes Hx Pneumonia: Yes - NEUROLOGICAL Other/Comment: Paresthesias of both feet - HEENT Hx HEENT Problems: No - RENAL Hx Chronic Kidney Disease: Yes Hx Kidney Stones: Yes (kidney stone removal) - ENDOCRINE/METABOLIC Hx Hyperthyroidism: Yes - HEMATOLOGICAL/ONCOLOGICAL Hx Anemia: Yes Hx Human Immunodeficiency Virus (HIV): No - INTEGUMENTARY Hx Dermatological Problems: Yes Other/Comment: Dependent edema of both lower extremities with blister formation - MUSCULOSKELETAL/RHEUMATOLOGICAL Hx Falls: Yes - GASTROINTESTINAL Hx Gastrointestinal Disorders: No - GENITOURINARY/GYNECOLOGICAL Hx Genitourinary Disorders: No - PSYCHIATRIC Hx Psychophysiologic Disorder: No Hx Substance Use: No - SURGICAL HISTORY Hx Appendectomy: Yes - ANESTHESIA Hx Anesthesia: Yes Hx Anesthesia Reactions: No Hx Malignant Hyperthermia: No Meds Allergies/Adverse Reactions: Allergies Allergy/AdvReac Type Severity Reaction Status Date / Time No Known Allergies Allergy Verified 12/18/17 16:07 - Medications Medications: Current Medications Acetaminophen (Tylenol 325mg Tab) 650 mg PO Q4 PRN PRN Reason: Pain, Mild (1-3) Acetaminophen (Tylenol 325mg Tab) 650 mg PO Q4 PRN PRN Reason: TEMP >100 Bacitracin (Bacitracin Oint) 1 applic TOP DAILY [facility] Last Admin: 02/02/18 18:50 Dose: 1 applic Bisacodyl (Dulcolax) 10 mg [place] DAILY PRN PRN Reason: Constipation Ciprofloxacin (Cipro) 250 mg PO Q12 [facility] PRN Reason: Protocol Clopidogrel Bisulfate (Plavix) 75 mg PO DAILY [facility] Last Admin: 02/03/18 09:57 Dose: 75 mg Docusate Sodium (Colace) 100 mg PO DAILY [facility] Last Admin: 02/03/18 09:48 Dose: 100 mg Escitalopram Oxalate (Lexapro) 5 mg PO HS [facility] Last Admin: 02/02/18 21:33 Dose: 5 mg Famotidine (Pepcid) 20 mg PO DAILY [facility] Last Admin: 02/03/18 09:57 Dose: 20 mg Ferrous Sulfate (Feosol) 325 mg PO DAILY [facility] Last Admin: 02/03/18 09:51 Dose: 325 mg Furosemide (Lasix) 20 mg PO DAILY [facility] Last Admin: 02/03/18 09:54 Dose: 20 mg Glipizide (Glucotrol Xl) 2.5 mg PO DAILY [facility] Last Admin: 02/03/18 09:53 Dose: 2.5 mg Home Med (Hydrogen Peroxide [Peroxyl Dental Rinse]) 1 appl TOP MOWEFR [facility] Piperacillin Sod/Tazobactam (Sod 3.375 gm/ Sodium Chloride) 100 mls @ 100 mls/ hr IVPB Q8 [facility] PRN Reason: Protocol Last Admin: 02/03/18 00:52 Dose: 100 mls/hr Ibuprofen (Motrin Tab) 400 mg PO Q6 PRN PRN Reason: Pain, moderate (4-7) Isosorbide Mononitrate (Imdur Er) 30 mg PO DAILY [facility] Last Admin: 02/03/18 09:54 Dose: 30 mg Lactobacillus Acidophilus (Bacid Acidophilus) 1 cap PO BID [facility] Last Admin: 02/03/18 09:47 Dose: 1 cap Magnesium Hydroxide (Milk Of Magnesia) 30 ml PO HS PRN PRN Reason: Constipation Last Admin: 02/02/18 21:33 Dose: 30 ml Memantine (Namenda) 5 mg PO DAILY [facility] Last Admin: 02/03/18 09:56 Dose: 5 mg Methimazole (Tapazole) 5 mg PO DAILY [facility] Last Admin: 02/03/18 09:57 Dose: 5 mg Metoprolol Tartrate (Lopressor) 25 mg PO Q12 [facility] Last Admin: 02/03/18 09:55 Dose: 25 mg Miconazole Nitrate (Critic-Aid Clear Af) 1 applic TOP BID [facility] Last Admin: 02/03/18 09:51 Dose: 1 applic Petrolatum (Desitin Maximum Strength Topical 40% Oint) 1 applic TOP QSHIFT [facility] Risperidone (Risperidone Odt 0.25mg) 0.25 mg PO Q12 PRN PRN Reason: Psychosis Last Admin: 02/01/18 21:24 Dose: 0.25 mg Physical Exam - Constitutional Appears: Well - Head Exam Head Exam: ATRAUMATIC, NORMAL INSPECTION, NORMOCEPHALIC - Eye Exam Eye Exam: EOMI, Normal appearance, PERRL Pupil Exam: NORMAL ACCOMODATION, PERRL - ENT Exam ENT Exam: Mucous Membranes Moist, Normal Exam - Neck Exam Neck exam: Positive for: Normal Inspection - Respiratory Exam Respiratory Exam: Clear to Auscultation Bilateral, NORMAL BREATHING PATTERN - Cardiovascular Exam Cardiovascular Exam: REGULAR RHYTHM - GI/Abdominal Exam GI & Abdominal Exam: Normal Bowel Sounds, Soft. absent: Tenderness - Extremities Exam Extremities exam: Positive for: normal inspection - Back Exam Back exam: NORMAL INSPECTION - Neurological Exam Neurological exam: Alert, CN II-XII Intact, Normal Gait, Oriented x3, Reflexes Normal - Psychiatric Exam Psychiatric exam: Normal Affect, Normal Mood - Skin Skin Exam: Dry, Intact, Normal Color, Warm Results - Vital Signs Recent Vital Signs: Last Vital Signs Temp 98.3 F 02/03/18 07:50 Pulse 79 02/03/18 07:50 Resp 20 02/03/18 07:50 BP 122/80 02/03/18 09:55 Pulse Ox 99 02/03/18 07:50 - Labs Result Diagrams: 02/03/18 10:47 02/02/18 05:20 Labs: Laboratory Results - last 24 hr 02/03/18 02/03/18 06:00 10:47 WBC 12.4 H RBC 3.45 L Hgb 8.2 L Hct 26.6 L MCV 77.0 L MCH 23.8 L MCHC 30.9 L RDW 20.1 H Plt Count 284 Random Vancomycin 11.6 Assessment & Plan (1) PVD (peripheral vascular disease) Assessment and Plan: ASA, plavix statins plan for peripheral angiogram on once renal function stable IV heparin pain control abx Status: Acute Priority: High (2) ABBEY (acute kidney injury) Status: Acute (3) Edema of both lower extremities due to peripheral venous insufficiency Status: Chronic Priority: High (4) 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 Priority: High
[2018-02-03 11:15] LABS: CALCIUM 8.8 mg/dL (8.4-10.2)
[2018-02-03] MEDS ORDERED: Dextrose 5%/0.9% NS 1,000 ML IV SCH (12:30)
[2018-02-03 13:16] LABS: INR 1.3 (0.9-1.2); PROTHROMBIN TIME 14.2 Seconds (9.8-13.1)
--- NOTE | 2018-02-03 13:54 | CP.PCM.PN ---
Subjective - Date & Time of Evaluation Date of Evaluation: 02/03/18 Time of Evaluation: 07:00 - Subjective Subjective: Podiatry Progress Note - Dr. Briseno 77 year old female seen and evaluated for bilateral lower extremity ulcerations with cellulitis. Patient is seen in the AM, sitting comfortably in bedside chair at time of visit with legs in dependent position. Podiatry was notified earlier this morning that patient has taken dressing off and nursing reapplied the dressing. Patient reports pain to the lower extremity, worse with pressure. Denies any new pedal complaints. Denies F/C/N/V/CP/SOB Objective - Vital Signs/Intake and Output Vital Signs (last 24 hours): Temp Pulse Resp BP Pulse Ox 98.3 F 79 20 122/80 99 02/03/18 07:50 02/03/18 07:50 02/03/18 07:50 02/03/18 09:55 02/03/18 07:50 - Medications Medications: Current Medications Acetaminophen (Tylenol 325mg Tab) 650 mg PO Q4 PRN PRN Reason: Pain, Mild (1-3) Acetaminophen (Tylenol 325mg Tab) 650 mg PO Q4 PRN PRN Reason: TEMP >100 Bacitracin (Bacitracin Oint) 1 applic TOP DAILY [facility] Last Admin: 02/02/18 18:50 Dose: 1 applic Bisacodyl (Dulcolax) 10 mg [place] DAILY PRN PRN Reason: Constipation Ciprofloxacin (Cipro) 250 mg PO Q12 [facility] PRN Reason: Protocol Last Admin: 02/03/18 13:12 Dose: 250 mg Clopidogrel Bisulfate (Plavix) 75 mg PO DAILY [facility] Last Admin: 02/03/18 09:57 Dose: 75 mg Docusate Sodium (Colace) 100 mg PO DAILY [facility] Last Admin: 02/03/18 09:48 Dose: 100 mg Escitalopram Oxalate (Lexapro) 5 mg PO HS [facility] Last Admin: 02/02/18 21:33 Dose: 5 mg Famotidine (Pepcid) 20 mg PO DAILY [facility] Last Admin: 02/03/18 09:57 Dose: 20 mg Ferrous Sulfate (Feosol) 325 mg PO DAILY [facility] Last Admin: 02/03/18 09:51 Dose: 325 mg Furosemide (Lasix) 20 mg PO DAILY [facility] Last Admin: 02/03/18 09:54 Dose: 20 mg Glipizide (Glucotrol Xl) 2.5 mg PO DAILY [facility] Last Admin: 02/03/18 09:53 Dose: 2.5 mg Home Med (Hydrogen Peroxide [Peroxyl Dental Rinse]) 1 appl TOP MOWEFR [facility] Piperacillin Sod/Tazobactam (Sod 2.25 gm/ Sodium Chloride) 100 mls @ 100 mls/ hr IVPB Q6 [facility] PRN Reason: Protocol Sodium Chloride (Sodium Chloride 0.45%) 1,000 mls @ 60 mls/hr IV .[id number] [facility] Stop: 02/04/18 12:43 Last Admin: 02/03/18 13:14 Dose: 60 mls/hr Isosorbide Mononitrate (Imdur Er) 30 mg PO DAILY [facility] Last Admin: 02/03/18 09:54 Dose: 30 mg Lactobacillus Acidophilus (Bacid Acidophilus) 1 cap PO BID [facility] Last Admin: 02/03/18 09:47 Dose: 1 cap Magnesium Hydroxide (Milk Of Magnesia) 30 ml PO HS PRN PRN Reason: Constipation Last Admin: 02/02/18 21:33 Dose: 30 ml Memantine (Namenda) 5 mg PO DAILY [facility] Last Admin: 02/03/18 09:56 Dose: 5 mg Methimazole (Tapazole) 5 mg PO DAILY [facility] Last Admin: 02/03/18 09:57 Dose: 5 mg Metoprolol Tartrate (Lopressor) 25 mg PO Q12 [facility] Last Admin: 02/03/18 09:55 Dose: 25 mg Miconazole Nitrate (Critic-Aid Clear Af) 1 applic TOP BID [facility] Last Admin: 02/03/18 09:51 Dose: 1 applic Petrolatum (Desitin Maximum Strength Topical 40% Oint) 1 applic TOP QSHIFT [facility] Risperidone (Risperidone Odt 0.25mg) 0.25 mg PO Q12 PRN PRN Reason: Psychosis Last Admin: 02/01/18 21:24 Dose: 0.25 mg - Labs Labs: 02/03/18 10:47 02/03/18 10:47 PT 14.2 Seconds (9.8-13.1) H 02/03/18 13:08 INR 1.3 (0.9-1.2) H 02/03/18 13:08 APTT 25.4 Seconds (25.6-37.1) L 01/30/18 17:15 - Constitutional Appears: Non-toxic, No Acute Distress - Extremities Exam Extremities Exam: absent: Calf Tenderness Additional comments: Vasc: DP pulses and PT pulses nonpalpable, +2 pitting edema to bilateral LE, TG warm to warm, CFT < 4 sec to all digits Neuro: Epicritic and protective sensation grossly intact bilaterally Derm: Multiple chronic, 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 All blisters continue to weep serous fluid. New blister is noted to lateral aspect of L plantar heel with significant thin serous fluid noted post-drainage, blister has filled again post drainage. Multiple ulcerations noted to the entire lower extremity with mixture of fibrotic/necrotic wound base: Erythema to the entire LE R>L, malodorous, all sites (-) for purulence, fluctuance, probe to bone, tunneling or undermining. See below: RIGHT- Necrotic right heel ulceration noted with drainage, malodorous. Ulceration noted measuring 7cm x 6cm x 0.1cm to posterior right leg mid calf with multiple vesicles noted to the medial aspect of the leg. Wound base is mainly fibrotic with necrotic tissue noted, odorous, erythema noted, no tunneling, no probe to bone or tendon exposed. Ulcerations to dorsum of right digits 1, 2, 3, 4 with mixture of fibrotic and necrotic base, nail plate from nail bed of digits right 2 and 3 are absent, 4 nail plate is loose. LEFT- Open additional open lysed blister site with superficial ulceration measuring 4cm x 1.5cm x 0.1cm noted to anteromedial left leg. Granular in nature. Ulceration site noted to dorsum of L foot with central fibrotic, measuring 4cm x 4.5cm x 0.2cm. Jennifer wound exhibits epithelization with healthy pink skin edges noted to dorsal left foot ulcer site. malodor present, no fluctuance, no probe to bone, no tunneling or no undermining. Ulcerations to distal and dorsum of the left digits 1 and 2 with fibrotic base and macerated periwound. Ortho: Sara's sign negative B/L. All ulceration sites are tender to palpation. No other gross musculoskeletal deformities noted - Neurological Exam Neurological Exam: Alert, Awake, Oriented x3 Assessment and Plan - Assessment and Plan (Free Text) Assessment: 77 year old non compliant female patient with lower extremity cellulitis with lower extremity non healing partial thickness and unstageable ulcerations 2/2 multiple etiologies including DM, PVD, and swelling Plan: Patient seen and evaluated at bedside Discussed plan with Dr. Briseno Afebrile, leukocytosis mildly resolving (12.4 down from 14.1) Wound culture of R leg (+) Serratia marcescens Cleansed LE ulceration with saline, dressed with Adaptic, ABD, DSD ID on board, continue IV Vanco, Zosyn LE angiography reveals bilateral occluded SFA disease Dr. Damon "plan for peripheral angiogram on once renal function stable " Will continue to follow patient while in house
[2018-02-03] MEDS ORDERED: Lidocaine 1% Inj (20ml) ONE (14:03)
--- NOTE | 2018-02-03 14:11 | PCM.SURG1 ---
Surgeon's Initial Post Op Note - Surgeon's Notes Surgeon: Juan Carlos Montana MD Hat Former: NONE Type of Anesthesia: Local Pre-Operative Diagnosis: Poor venous access Operative Findings: Patent right basilic vein Post-Operative Diagnosis: Poor venous access Operation Performed: Single lumen picc right basilic vein, 35 cm. Tip of picc is in the SVC. Specimen/Specimens Removed: NONE Estimated Blood Loss: EBL {In ML}: 2 Blood Products Given: N/A Drains Used: No Drains Post-Op Condition: Fair Date of Surgery/Procedure: 02/03/18 Time of Surgery/Procedure: 14:10
[2018-02-03 15:10] LABS: PARTIAL THROMBOPLASTIN TIME 27.6 Seconds (25.6-37.1)
[2018-02-03] MEDS: Heparin 25,000units in D5W 25,000 UNITS/250 ML BAG IV SCH (17:40)
[2018-02-03] MEDS: hydrOXYzine HCl 50 mg/ml Inj IM STA (18:59)
--- NOTE | 2018-02-03 20:26 | CP.PCM.PN ---
Subjective - Date & Time of Evaluation Date of Evaluation: 02/03/18 Time of Evaluation: 22:22 - Subjective Subjective: Seen by interventional cardiology Angiograam ?? Creat 1.5 (after contrast study) Objective - Vital Signs/Intake and Output Vital Signs (last 24 hours): Temp Pulse Resp BP Pulse Ox 96.8 F L 74 20 105/54 L 100 02/03/18 14:24 02/03/18 16:14 02/03/18 16:14 02/03/18 16:14 02/03/18 16:14 - Medications Medications: Current Medications Acetaminophen (Tylenol 325mg Tab) 650 mg PO Q4 PRN PRN Reason: Pain, Mild (1-3) Acetaminophen (Tylenol 325mg Tab) 650 mg PO Q4 PRN PRN Reason: TEMP >100 Bacitracin (Bacitracin Oint) 1 applic TOP DAILY [facility] Last Admin: 02/03/18 09:00 Dose: 1 applic Bisacodyl (Dulcolax) 10 mg [place] DAILY PRN PRN Reason: Constipation Ciprofloxacin (Cipro) 250 mg PO Q12 [facility] PRN Reason: Protocol Last Admin: 02/03/18 13:12 Dose: 250 mg Clopidogrel Bisulfate (Plavix) 75 mg PO DAILY [facility] Last Admin: 02/03/18 09:57 Dose: 75 mg Docusate Sodium (Colace) 100 mg PO DAILY [facility] Last Admin: 02/03/18 09:48 Dose: 100 mg Escitalopram Oxalate (Lexapro) 5 mg PO HS [facility] Last Admin: 02/02/18 21:33 Dose: 5 mg Famotidine (Pepcid) 20 mg PO DAILY [facility] Last Admin: 02/03/18 09:57 Dose: 20 mg Ferrous Sulfate (Feosol) 325 mg PO DAILY [facility] Last Admin: 02/03/18 09:51 Dose: 325 mg Furosemide (Lasix) 20 mg PO DAILY [facility] Last Admin: 02/03/18 09:54 Dose: 20 mg Glipizide (Glucotrol Xl) 2.5 mg PO DAILY [facility] Last Admin: 02/03/18 09:53 Dose: 2.5 mg Home Med (Hydrogen Peroxide [Peroxyl Dental Rinse]) 1 appl TOP MOWEFR [facility] Piperacillin Sod/Tazobactam (Sod 2.25 gm/ Sodium Chloride) 100 mls @ 100 mls/ hr IVPB Q6 [facility] PRN Reason: Protocol Last Admin: 02/03/18 17:18 Dose: 100 mls/hr Sodium Chloride (Sodium Chloride 0.45%) 1,000 mls @ 60 mls/hr IV .[id number] [facility] Stop: 02/04/18 12:43 Last Admin: 02/03/18 13:14 Dose: 60 mls/hr Heparin Sodium/Dextrose (Heparin 25,000 Units/250ml In D5w) 25,000 units in 250 mls @ 12 mls/hr IV .[id number] [facility] PRN Reason: Protocol Last Admin: 02/03/18 17:40 Dose: 12 mls/hr, 12 mls/hr Isosorbide Mononitrate (Imdur Er) 30 mg PO DAILY [facility] Last Admin: 02/03/18 09:54 Dose: 30 mg Lactobacillus Acidophilus (Bacid Acidophilus) 1 cap PO BID [facility] Last Admin: 02/03/18 17:15 Dose: 1 cap Magnesium Hydroxide (Milk Of Magnesia) 30 ml PO HS PRN PRN Reason: Constipation Last Admin: 02/02/18 21:33 Dose: 30 ml Memantine (Namenda) 5 mg PO DAILY [facility] Last Admin: 02/03/18 09:56 Dose: 5 mg Methimazole (Tapazole) 5 mg PO DAILY [facility] Last Admin: 02/03/18 09:57 Dose: 5 mg Metoprolol Tartrate (Lopressor) 25 mg PO Q12 [facility] Last Admin: 02/03/18 09:55 Dose: 25 mg Miconazole Nitrate (Critic-Aid Clear Af) 1 applic TOP BID [facility] Last Admin: 02/03/18 17:15 Dose: 1 applic Petrolatum (Desitin Maximum Strength Topical 40% Oint) 1 applic TOP QSHIFT [facility] Risperidone (Risperidone Odt 0.25mg) 0.25 mg PO Q12 PRN PRN Reason: Psychosis Last Admin: 02/01/18 21:24 Dose: 0.25 mg - Labs Labs: 02/03/18 10:47 02/03/18 10:47 PT 14.2 Seconds (9.8-13.1) H 02/03/18 13:08 INR 1.3 (0.9-1.2) H 02/03/18 13:08 APTT 27.6 Seconds (25.6-37.1) 02/03/18 13:08 - Respiratory Exam Respiratory Exam: NORMAL BREATHING PATTERN - Cardiovascular Exam Cardiovascular Exam: REGULAR RHYTHM - GI/Abdominal Exam GI & Abdominal Exam: Normal Bowel Sounds Assessment and Plan - Assessment and Plan (Free Text) Assessment: Low ext edema cellulitis Significant Aterial occlusive dx Wound cs Serratia Leg elevation IV ABX Zosyn/ Vanco ID Podiatry Surgery Physiatry Vascular Psychiatric dx?? Ultram?? Adj disorder with depression Psychiatry SSRI Resperidol ABBEY/ CKD creat increased (contrast study??) Nephrology IVF CHF Diastolic CAD stress thalium scarring ischemia?? cardiac cath refused?? Cardiology Hx COPD L Pleural effusion Pulmonary Hx Anemia ASA d/c as outpt due to dec Hbg NIDDM Thyroid dx Endo
[2018-02-03] MEDS ORDERED: Piperacillin/Tazobact 3.375 GM in Sodium Chloride 0.9% 100 ML IVPB SCH (21:00)
[2018-02-04 00:35] LABS: INR 1.3 (0.9-1.2); PARTIAL THROMBOPLASTIN TIME 50.3 Seconds (25.6-37.1); PROTHROMBIN TIME 14.4 Seconds (9.8-13.1)
[2018-02-04] MEDS: hydrOXYzine HCl 50 mg/ml Inj IM STA (02:22)
[2018-02-04] MEDS: Sodium Chloride 0.45% 1,000 ML IV SCH ×2 (05:25→10:17)
[2018-02-04 06:30] LABS: INR 1.4 (0.9-1.2); PARTIAL THROMBOPLASTIN TIME 62.9 Seconds (25.6-37.1); PROTHROMBIN TIME 15.4 Seconds (9.8-13.1)
--- NOTE | 2018-02-04 08:22 | CP.PCM.PN ---
Subjective - Date & Time of Evaluation Date of Evaluation: 02/04/18 Time of Evaluation: 08:22 - Subjective Subjective: Podiatry Progress Note - Dr. Briseno 77 year old female seen and evaluated with attending Dr. Briseno for bilateral lower extremity ulcerations with cellulitis. Patient is seen resting in chair, appeared tired and moaning of pain. Patient reports pain to the distal knee. Denies thigh pain. Denies F/C/N/V/CP/SOB Objective - Vital Signs/Intake and Output Vital Signs (last 24 hours): Temp Pulse Resp BP Pulse Ox 97.8 F 81 18 94/52 L 95 02/04/18 08:02 02/04/18 08:02 02/04/18 08:02 02/04/18 08:02 02/04/18 08:02 - Medications Medications: Current Medications Acetaminophen (Tylenol 325mg Tab) 650 mg PO Q4 PRN PRN Reason: Pain, Mild (1-3) Acetaminophen (Tylenol 325mg Tab) 650 mg PO Q4 PRN PRN Reason: TEMP >100 Bacitracin (Bacitracin Oint) 1 applic TOP DAILY [facility] Last Admin: 02/03/18 09:00 Dose: 1 applic Bisacodyl (Dulcolax) 10 mg [place] DAILY PRN PRN Reason: Constipation Ciprofloxacin (Cipro) 250 mg PO Q12 [facility] PRN Reason: Protocol Last Admin: 02/04/18 01:18 Dose: 250 mg Clopidogrel Bisulfate (Plavix) 75 mg PO DAILY [facility] Last Admin: 02/03/18 09:57 Dose: 75 mg Docusate Sodium (Colace) 100 mg PO DAILY [facility] Last Admin: 02/03/18 09:48 Dose: 100 mg Escitalopram Oxalate (Lexapro) 5 mg PO HS [facility] Last Admin: 02/03/18 21:20 Dose: 5 mg Famotidine (Pepcid) 20 mg PO DAILY [facility] Last Admin: 02/03/18 09:57 Dose: 20 mg Ferrous Sulfate (Feosol) 325 mg PO DAILY [facility] Last Admin: 02/03/18 09:51 Dose: 325 mg Furosemide (Lasix) 20 mg PO DAILY [facility] Last Admin: 02/03/18 09:54 Dose: 20 mg Glipizide (Glucotrol Xl) 2.5 mg PO DAILY [facility] Last Admin: 02/03/18 09:53 Dose: 2.5 mg Home Med (Hydrogen Peroxide [Peroxyl Dental Rinse]) 1 appl TOP MOWEFR [facility] Piperacillin Sod/Tazobactam (Sod 2.25 gm/ Sodium Chloride) 100 mls @ 100 mls/ hr IVPB Q6 [facility] PRN Reason: Protocol Last Admin: 02/04/18 04:10 Dose: 100 mls/hr Sodium Chloride (Sodium Chloride 0.45%) 1,000 mls @ 60 mls/hr IV .[id number] [facility] Stop: 02/04/18 12:43 Last Admin: 02/04/18 05:25 Dose: Not Given Heparin Sodium/Dextrose (Heparin 25,000 Units/250ml In D5w) 25,000 units in 250 mls @ 12 mls/hr IV .[id number] [facility] PRN Reason: Protocol Last Admin: 02/03/18 17:40 Dose: 12 mls/hr, 12 mls/hr Isosorbide Mononitrate (Imdur Er) 30 mg PO DAILY [facility] Last Admin: 02/03/18 09:54 Dose: 30 mg Lactobacillus Acidophilus (Bacid Acidophilus) 1 cap PO BID [facility] Last Admin: 02/03/18 17:15 Dose: 1 cap Magnesium Hydroxide (Milk Of Magnesia) 30 ml PO HS PRN PRN Reason: Constipation Last Admin: 02/02/18 21:33 Dose: 30 ml Memantine (Namenda) 5 mg PO DAILY [facility] Last Admin: 02/03/18 09:56 Dose: 5 mg Methimazole (Tapazole) 5 mg PO DAILY [facility] Last Admin: 02/03/18 09:57 Dose: 5 mg Metoprolol Tartrate (Lopressor) 25 mg PO Q12 [facility] Last Admin: 02/03/18 21:17 Dose: 25 mg Miconazole Nitrate (Critic-Aid Clear Af) 1 applic TOP BID [facility] Last Admin: 02/03/18 17:15 Dose: 1 applic Petrolatum (Desitin Maximum Strength Topical 40% Oint) 1 applic TOP QSHIFT [facility] Risperidone (Risperidone Odt 0.25mg) 0.25 mg PO Q12 PRN PRN Reason: Psychosis Last Admin: 02/01/18 21:24 Dose: 0.25 mg - Labs Labs: 02/03/18 10:47 02/03/18 10:47 PT 15.4 Seconds (9.8-13.1) H 02/04/18 06:10 INR 1.4 (0.9-1.2) H 02/04/18 06:10 APTT 62.9 Seconds (25.6-37.1) H D 02/04/18 06:10 - Constitutional Appears: Non-toxic, No Acute Distress - Extremities Exam Extremities Exam: absent: Calf Tenderness Additional comments: Vasc: DP pulses and PT pulses nonpalpable, +2 pitting edema to bilateral LE, TG cool to cool, CFT delayed to digits Neuro: Epicritic and protective sensation grossly intact bilaterally Derm: Multiple chronic, 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 All blisters continue to weep serous fluid. Lanced blister is noted to lateral aspect of L plantar heel. Multiple ulcerations noted to the entire lower extremity with mixture of fibrotic/ necrotic wound base: Erythema to the entire LE R>L, malodorous, all sites (-) for purulence, fluctuance, probe to bone, tunneling or undermining. See below: RIGHT- Necrotic right heel ulceration noted with drainage, malodorous. Ulceration noted measuring 7cm x 6cm x 0.1cm to posterior right leg mid calf with multiple vesicles noted to the medial aspect of the leg. Wound base is mainly fibrotic with necrotic tissue noted, odorous, erythema has slightly improved, no tunneling, no probe to bone or tendon exposed. Ulcerations to dorsum of right digits 1, 2, 3, 4 with mixture of fibrotic and necrotic base, nail plate from nail bed of digits right 2, 3, 4 are absent LEFT- Llysed blister site with superficial ulceration measuring 4cm x 1.5cm x 0.1cm noted to anteromedial left leg. Granular in nature. Ulceration site noted to dorsum of L foot with central fibrotic, measuring 4cm x 4.5cm x 0.2cm. Jennifer wound exhibits epithelization with healthy pink skin edges noted to dorsal left foot ulcer site. malodor present, no fluctuance, no probe to bone, no tunneling or no undermining. Ulcerations to distal and dorsum of the left digits 1 and 2 with fibrotic base and macerated periwound. Ortho: Sara's sign negative B/L. All ulceration sites are tender to palpation. No other gross musculoskeletal deformities noted - Neurological Exam Neurological Exam: Alert, Awake, Oriented x3 - Psychiatric Exam Psychiatric exam: Normal Affect, Normal Mood Assessment and Plan - Assessment and Plan (Free Text) Assessment: 77 year old non compliant female patient with lower extremity cellulitis with lower extremity non healing partial thickness and unstageable ulcerations 2/2 multiple etiologies including DM, PVD, and swelling Plan: Patient seen and evaluated at bedside Discussed plan with Dr. Briseno Afebrile, leukocytosis Wound culture of R leg (+) Serratia marcescens Cleansed LE ulceration with saline, dressed with Adaptic, ABD, DSD ID on board, continue IV Ciprofloxacin, Zosyn LE angiography reveals bilateral occluded SFA disease Dr. Damon "plan for peripheral angiogram on once renal function stable " Will continue to follow patient while in house
--- NOTE | 2018-02-04 08:50 | CP.PCM.PN ---
Subjective - Date & Time of Evaluation Date of Evaluation: 02/04/18 Time of Evaluation: 07:45 - Subjective Subjective: NO CHEST PAIN OR SOB FEELS TIRED AND WEAK Objective - Vital Signs/Intake and Output Vital Signs (last 24 hours): Temp Pulse Resp BP Pulse Ox 97.8 F 81 18 94/52 L 95 02/04/18 08:02 02/04/18 08:02 02/04/18 08:02 02/04/18 08:02 02/04/18 08:02 - Medications Medications: Current Medications Acetaminophen (Tylenol 325mg Tab) 650 mg PO Q4 PRN PRN Reason: Pain, Mild (1-3) Acetaminophen (Tylenol 325mg Tab) 650 mg PO Q4 PRN PRN Reason: TEMP >100 Bacitracin (Bacitracin Oint) 1 applic TOP DAILY [facility] Last Admin: 02/03/18 09:00 Dose: 1 applic Bisacodyl (Dulcolax) 10 mg [place] DAILY PRN PRN Reason: Constipation Ciprofloxacin (Cipro) 250 mg PO Q12 [facility] PRN Reason: Protocol Last Admin: 02/04/18 01:18 Dose: 250 mg Clopidogrel Bisulfate (Plavix) 75 mg PO DAILY [facility] Last Admin: 02/03/18 09:57 Dose: 75 mg Docusate Sodium (Colace) 100 mg PO DAILY [facility] Last Admin: 02/03/18 09:48 Dose: 100 mg Escitalopram Oxalate (Lexapro) 5 mg PO HS [facility] Last Admin: 02/03/18 21:20 Dose: 5 mg Famotidine (Pepcid) 20 mg PO DAILY [facility] Last Admin: 02/03/18 09:57 Dose: 20 mg Ferrous Sulfate (Feosol) 325 mg PO DAILY [facility] Last Admin: 02/03/18 09:51 Dose: 325 mg Furosemide (Lasix) 20 mg PO DAILY [facility] Last Admin: 02/03/18 09:54 Dose: 20 mg Glipizide (Glucotrol Xl) 2.5 mg PO DAILY [facility] Last Admin: 02/03/18 09:53 Dose: 2.5 mg Home Med (Hydrogen Peroxide [Peroxyl Dental Rinse]) 1 appl TOP MOWEFR [facility] Piperacillin Sod/Tazobactam (Sod 2.25 gm/ Sodium Chloride) 100 mls @ 100 mls/ hr IVPB Q6 [facility] PRN Reason: Protocol Last Admin: 02/04/18 04:10 Dose: 100 mls/hr Sodium Chloride (Sodium Chloride 0.45%) 1,000 mls @ 60 mls/hr IV .[id number] [facility] Stop: 02/04/18 12:43 Last Admin: 02/04/18 05:25 Dose: Not Given Heparin Sodium/Dextrose (Heparin 25,000 Units/250ml In D5w) 25,000 units in 250 mls @ 12 mls/hr IV .[id number] [facility] PRN Reason: Protocol Last Admin: 02/03/18 17:40 Dose: 12 mls/hr, 12 mls/hr Isosorbide Mononitrate (Imdur Er) 30 mg PO DAILY [facility] Last Admin: 02/03/18 09:54 Dose: 30 mg Lactobacillus Acidophilus (Bacid Acidophilus) 1 cap PO BID [facility] Last Admin: 02/03/18 17:15 Dose: 1 cap Magnesium Hydroxide (Milk Of Magnesia) 30 ml PO HS PRN PRN Reason: Constipation Last Admin: 02/02/18 21:33 Dose: 30 ml Memantine (Namenda) 5 mg PO DAILY [facility] Last Admin: 02/03/18 09:56 Dose: 5 mg Methimazole (Tapazole) 5 mg PO DAILY [facility] Last Admin: 02/03/18 09:57 Dose: 5 mg Metoprolol Tartrate (Lopressor) 25 mg PO Q12 [facility] Last Admin: 02/03/18 21:17 Dose: 25 mg Miconazole Nitrate (Critic-Aid Clear Af) 1 applic TOP BID [facility] Last Admin: 02/03/18 17:15 Dose: 1 applic Petrolatum (Desitin Maximum Strength Topical 40% Oint) 1 applic TOP QSHIFT [facility] Risperidone (Risperidone Odt 0.25mg) 0.25 mg PO Q12 PRN PRN Reason: Psychosis Last Admin: 02/01/18 21:24 Dose: 0.25 mg - Labs Labs: 02/03/18 10:47 02/03/18 10:47 PT 15.4 Seconds (9.8-13.1) H 02/04/18 06:10 INR 1.4 (0.9-1.2) H 02/04/18 06:10 APTT 62.9 Seconds (25.6-37.1) H D 02/04/18 06:10 - Respiratory Exam Respiratory Exam: Decreased Breath Sounds - Cardiovascular Exam Cardiovascular Exam: REGULAR RHYTHM, +S1, +S2 - Extremities Exam Additional comments: MULTIPLE BILATERAL LE ULCERATIONS - Additional Findings Additional findings: BP 94/52 THIS AM INVASIVE CARDIOLOGY NOTE REVIEWED Assessment and Plan - Assessment and Plan (Free Text) Assessment: CAD HYPERTENSION HISTORY BUT HYPOTENSIVE THIS MORNING HYPERLIPIDEMIA PAD COPD Plan: CONTINUE ANTIBIOTICS, HEPARIN, CLOPIDOGREL, AND FUROSEMIDE HOLD METOPROLOL AND IMDUR DUE TO HYPOTENSION FOR INTERVENTION BY DR PINA FOR PAD
[2018-02-04 09:04] LABS: CALCIUM 8.3 mg/dL (8.4-10.2)
[2018-02-04] MEDS: RISPERIDONE 0.25 MG ODT PO PRN (09:16)
[2018-02-04] MEDS: methIMAzole 5 MG TAB PO SCH (09:16)
[2018-02-04] MEDS: GlipiZIDE 2.5 mg SR Tab PO SCH (09:18)
[2018-02-04] MEDS: Lactobacillus Acidophilus 500 MU Cap PO SCH ×2 (09:23→17:38)
[2018-02-04] MEDS: Bacitracin OINT 15GM TOP SCH (09:34)
[2018-02-04] MEDS: DESTIN OINT TOP SCH (09:36)
[2018-02-04 10:01] LABS: HEMOGLOBIN 7.7 g/dL (12.0-16.0); MEAN CELL VOLUME 76.7 fl (81.0-99.0); MEAN CORPUSCULAR HEMOGLOBIN 24.2 pg (27.0-31.0); MEAN CORPUSCULAR HGB CONC 31.5 g/dL (33.0-37.0); RBC 3.2 Mil/uL (3.80-5.20); RED CELL DISTRIBUTION WIDTH 20.1 % (11.5-14.5)
--- NOTE | 2018-02-04 10:34 | CP.PCM.PN ---
Subjective - Date & Time of Evaluation Date of Evaluation: 02/04/18 Time of Evaluation: 08:00 - Subjective Subjective: no fever mild improvement in wounds/ cellulitis Objective - Vital Signs/Intake and Output Vital Signs (last 24 hours): Temp Pulse Resp BP Pulse Ox 97.8 F 81 18 94/52 L 95 02/04/18 08:02 02/04/18 08:02 02/04/18 08:02 02/04/18 08:02 02/04/18 08:02 - Medications Medications: Current Medications Acetaminophen (Tylenol 325mg Tab) 650 mg PO Q4 PRN PRN Reason: Pain, Mild (1-3) Acetaminophen (Tylenol 325mg Tab) 650 mg PO Q4 PRN PRN Reason: TEMP >100 Bacitracin (Bacitracin Oint) 1 applic TOP DAILY [facility] Last Admin: 02/04/18 09:34 Dose: Not Given Bisacodyl (Dulcolax) 10 mg [place] DAILY PRN PRN Reason: Constipation Ciprofloxacin (Cipro) 250 mg PO Q12 [facility] PRN Reason: Protocol Last Admin: 02/04/18 09:16 Dose: 250 mg Clopidogrel Bisulfate (Plavix) 75 mg PO DAILY [facility] Last Admin: 02/04/18 09:15 Dose: 75 mg Docusate Sodium (Colace) 100 mg PO DAILY [facility] Last Admin: 02/04/18 09:15 Dose: 100 mg Escitalopram Oxalate (Lexapro) 5 mg PO HS [facility] Last Admin: 02/03/18 21:20 Dose: 5 mg Famotidine (Pepcid) 20 mg PO DAILY [facility] Last Admin: 02/04/18 09:15 Dose: 20 mg Ferrous Sulfate (Feosol) 325 mg PO DAILY [facility] Last Admin: 02/04/18 09:15 Dose: 325 mg Furosemide (Lasix) 20 mg PO DAILY [facility] Last Admin: 02/03/18 09:54 Dose: 20 mg Glipizide (Glucotrol Xl) 2.5 mg PO DAILY [facility] Last Admin: 02/04/18 09:18 Dose: 2.5 mg Home Med (Hydrogen Peroxide [Peroxyl Dental Rinse]) 1 appl TOP MOWEFR [facility] Piperacillin Sod/Tazobactam (Sod 2.25 gm/ Sodium Chloride) 100 mls @ 100 mls/ hr IVPB Q6 [facility] PRN Reason: Protocol Last Admin: 02/04/18 09:13 Dose: 100 mls/hr Sodium Chloride (Sodium Chloride 0.45%) 1,000 mls @ 60 mls/hr IV .[id number] [facility] Stop: 02/04/18 12:43 Last Admin: 02/04/18 10:17 Dose: 60 mls/hr Heparin Sodium/Dextrose (Heparin 25,000 Units/250ml In D5w) 25,000 units in 250 mls @ 12 mls/hr IV .[id number] [facility] PRN Reason: Protocol Last Admin: 02/03/18 17:40 Dose: 12 mls/hr, 12 mls/hr Lactobacillus Acidophilus (Bacid Acidophilus) 1 cap PO BID [facility] Last Admin: 02/04/18 09:23 Dose: 1 cap Magnesium Hydroxide (Milk Of Magnesia) 30 ml PO HS PRN PRN Reason: Constipation Last Admin: 02/02/18 21:33 Dose: 30 ml Memantine (Namenda) 5 mg PO BID [facility] Methimazole (Tapazole) 5 mg PO DAILY [facility] Last Admin: 02/04/18 09:16 Dose: 5 mg Miconazole Nitrate (Critic-Aid Clear Af) 1 applic TOP BID [facility] Last Admin: 02/03/18 17:15 Dose: 1 applic Petrolatum (Desitin Maximum Strength Topical 40% Oint) 1 applic TOP QSHIFT [facility] Last Admin: 02/04/18 09:36 Dose: 1 applic Risperidone (Risperidone Odt 0.25mg) 0.25 mg PO Q12 PRN PRN Reason: Psychosis Last Admin: 02/04/18 09:16 Dose: 0.25 mg - Labs Labs: 02/04/18 09:44 02/04/18 08:44 PT 15.4 Seconds (9.8-13.1) H 02/04/18 06:10 INR 1.4 (0.9-1.2) H 02/04/18 06:10 APTT 62.9 Seconds (25.6-37.1) H D 02/04/18 06:10 - Constitutional Appears: Confused, Cachectic, Chronically Ill - Head Exam Head Exam: NORMOCEPHALIC - Eye Exam Eye Exam: PERRL - ENT Exam ENT Exam: Mucous Membranes Dry - Neck Exam Neck Exam: absent: Lymphadenopathy - Respiratory Exam Respiratory Exam: Decreased Breath Sounds - Cardiovascular Exam Cardiovascular Exam: REGULAR RHYTHM - GI/Abdominal Exam GI & Abdominal Exam: Distended, Soft - Rectal Exam Rectal Exam: Deferred - Exam Exam: NORMAL INSPECTION - Extremities Exam Extremities Exam: absent: Pedal Edema - Back Exam Back Exam: absent: CVA tenderness (L), CVA tenderness (R) - Neurological Exam Neurological Exam: Alert, Awake, Oriented x3 - Psychiatric Exam Psychiatric exam: Normal Mood - Skin Skin Exam: Dry Assessment and Plan (1) Cellulitis, leg Status: Acute (2) PVD (peripheral vascular disease) Status: Acute (3) Sepsis Status: Acute - Assessment and Plan (Free Text) Assessment: cont wound care as per podiatry antibiotics Plan: p[oor prognosis
[2018-02-04] MEDS ORDERED: Epoetin Alfa 4000 UNIT/ML Inj IV ONE (11:12)
[2018-02-04 11:58] LABS: FERRITIN 76.1 ng/Ml (11.1-264.0)
[2018-02-04 12:28] LABS: IRON 18 ug/dL (37-170)
[2018-02-04 12:34] LABS: % IRON SATURATION 6 % (20-55); TOTAL IRON BINDING CAPACITY 292 ug/dL (250-450)
--- NOTE | 2018-02-04 12:49 | CP.PCM.PN ---
Subjective - Date & Time of Evaluation Date of Evaluation: 02/04/18 Time of Evaluation: 12:46 - Subjective Subjective: Patient not in acute distress Vital sign noted to be stable No vomiting no diarrhea Objective - Vital Signs/Intake and Output Vital Signs (last 24 hours): Temp Pulse Resp BP Pulse Ox 97.8 F 81 18 94/52 L 95 02/04/18 08:02 02/04/18 08:02 02/04/18 08:02 02/04/18 08:02 02/04/18 08:02 - Medications Medications: Current Medications Acetaminophen (Tylenol 325mg Tab) 650 mg PO Q4 PRN PRN Reason: Pain, Mild (1-3) Acetaminophen (Tylenol 325mg Tab) 650 mg PO Q4 PRN PRN Reason: TEMP >100 Bacitracin (Bacitracin Oint) 1 applic TOP DAILY [facility] Last Admin: 02/04/18 09:34 Dose: Not Given Bisacodyl (Dulcolax) 10 mg [place] DAILY PRN PRN Reason: Constipation Ciprofloxacin (Cipro) 250 mg PO Q12 [facility] PRN Reason: Protocol Last Admin: 02/04/18 09:16 Dose: 250 mg Clopidogrel Bisulfate (Plavix) 75 mg PO DAILY [facility] Last Admin: 02/04/18 09:15 Dose: 75 mg Docusate Sodium (Colace) 100 mg PO DAILY [facility] Last Admin: 02/04/18 09:15 Dose: 100 mg Escitalopram Oxalate (Lexapro) 5 mg PO HS [facility] Last Admin: 02/03/18 21:20 Dose: 5 mg Famotidine (Pepcid) 20 mg PO DAILY [facility] Last Admin: 02/04/18 09:15 Dose: 20 mg Ferrous Sulfate (Feosol) 325 mg PO DAILY [facility] Last Admin: 02/04/18 09:15 Dose: 325 mg Furosemide (Lasix) 20 mg PO DAILY [facility] Last Admin: 02/03/18 09:54 Dose: 20 mg Glipizide (Glucotrol Xl) 2.5 mg PO DAILY [facility] Last Admin: 02/04/18 09:18 Dose: 2.5 mg Home Med (Hydrogen Peroxide [Peroxyl Dental Rinse]) 1 appl TOP MOWEFR [facility] Piperacillin Sod/Tazobactam (Sod 2.25 gm/ Sodium Chloride) 100 mls @ 100 mls/ hr IVPB Q6 [facility] PRN Reason: Protocol Last Admin: 02/04/18 09:13 Dose: 100 mls/hr Heparin Sodium/Dextrose (Heparin 25,000 Units/250ml In D5w) 25,000 units in 250 mls @ 12 mls/hr IV .[id number] [facility] PRN Reason: Protocol Last Admin: 02/03/18 17:40 Dose: 12 mls/hr, 12 mls/hr Lactobacillus Acidophilus (Bacid Acidophilus) 1 cap PO BID [facility] Last Admin: 02/04/18 09:23 Dose: 1 cap Magnesium Hydroxide (Milk Of Magnesia) 30 ml PO HS PRN PRN Reason: Constipation Last Admin: 02/02/18 21:33 Dose: 30 ml Memantine (Namenda) 5 mg PO BID [facility] Methimazole (Tapazole) 5 mg PO DAILY [facility] Last Admin: 02/04/18 09:16 Dose: 5 mg Miconazole Nitrate (Critic-Aid Clear Af) 1 applic TOP BID [facility] Last Admin: 02/03/18 17:15 Dose: 1 applic Petrolatum (Desitin Maximum Strength Topical 40% Oint) 1 applic TOP QSHIFT [facility] Last Admin: 02/04/18 09:36 Dose: 1 applic Risperidone (Risperidone Odt 0.25mg) 0.25 mg PO Q12 PRN PRN Reason: Psychosis Last Admin: 02/04/18 09:16 Dose: 0.25 mg - Labs Labs: 02/04/18 09:44 02/04/18 08:44 PT 15.4 Seconds (9.8-13.1) H 02/04/18 06:10 INR 1.4 (0.9-1.2) H 02/04/18 06:10 APTT 62.9 Seconds (25.6-37.1) H D 02/04/18 06:10 - Constitutional Appears: No Acute Distress - Eye Exam Eye Exam: Conjunctival injection - ENT Exam ENT Exam: Mucous Membranes Moist - Neck Exam Neck Exam: absent: Lymphadenopathy - Respiratory Exam Respiratory Exam: absent: Chest Wall Tenderness - Cardiovascular Exam Cardiovascular Exam: absent: Gallop, JVD, Rubs - GI/Abdominal Exam GI & Abdominal Exam: Soft, Normal Bowel Sounds - Extremities Exam Extremities Exam: absent: Calf Tenderness - Back Exam Back Exam: absent: CVA tenderness (L), CVA tenderness (R) - Neurological Exam Neurological Exam: Alert - Psychiatric Exam Psychiatric exam: Normal Affect - Skin Skin Exam: absent: Cyanosis Assessment and Plan (1) ABBEY (acute kidney injury) Assessment & Plan: Acute kidney injury related to multifactorial between sepsis infection and cellulitis among other things. Hyponatremia most likely related to dilutional serum sodium 131. Change IV fluid to normal saline at 40 mL per hour for the next 24 hours and follow-up electrolyte. Anemia whether related to chronic kidney disease or GI need to be evaluated. Serum creatinine in the range 1.3-1.4 consistent with CK D stage III. Bilateral leg cellulitis continue with the antibiotics providing given the renal doses . Status: Acute (2) Cellulitis, leg Status: Acute (3) PVD (peripheral vascular disease) Status: Acute (4) Anemia Status: Acute
[2018-02-04] MEDS ORDERED: Sodium Chloride 0.9% 1,000 ML IV SCH (13:00)
--- NOTE | 2018-02-04 13:19 | US ---
PROCEDURE: Duplex ultrasound of the carotid and vertebral arteries. HISTORY: cerebrovascular disease COMPARISON: None available. TECHNIQUE: Grayscale and duplex Doppler evaluation of the cervical carotid and vertebral arteries were performed. The common carotid, carotid bifurcations and cervical ICA and proximal ECA were evaluated. The vertebral arteries were evaluated for gross patency and direction. FINDINGS: RIGHT CAROTID ARTERIES: Common Carotid Artery: Calcific plaque. Maximal flow velocity of 33.9 cm/s. Carotid Bifurcation: Calcific plaque. Internal Carotid Artery:Normal. Maximal flow velocity of 75.7 cm/s. External Carotid Artery (proximal branches): Normal. Maximal flow velocity of 104.8 cm/s. ICA/CCA Ratio: 2.4 LEFT CAROTID ARTERIES: Common Carotid Artery: Calcific plaque. Maximal flow velocity of 51.5 cm/s. Carotid Bifurcation: Calcific plaque. Internal Carotid Artery:Normal. Maximal flow velocity unable to be measured has the patient refused to cooperate with exam. External Carotid Artery (proximal branches): Normal. Maximal flow velocity of 65.8 cm/s. ICA/CCA Ratio: Unable to be calculated VERTEBRAL ARTERIES: Right Vertebral Artery: Patent. Antegrade flow. Left Vertebral Artery: Not imaged as the patient refused to cooperate with the exam. OTHER FINDINGS: None. IMPRESSION: Limited examination as the patient was uncooperative for the entire examination. No definite evidence of stenosis involving the right internal carotid artery. The left internal carotid artery and vertebral arteries 4 unable to be imaged.
[2018-02-04 13:23] LABS: INR 1.4 (0.9-1.2); PARTIAL THROMBOPLASTIN TIME 54.7 Seconds (25.6-37.1); PROTHROMBIN TIME 15.1 Seconds (9.8-13.1)
[2018-02-04] MEDS ORDERED: Epoetin Alfa 4000 UNIT/ML Inj SC ONE (14:30)
[2018-02-04] MEDS ORDERED: Heparin 25,000units in D5W 25,000 UNITS/250 ML BAG IV SCH (15:15)
[2018-02-04] MEDS: Heparin 25,000units in D5W 25,000 UNITS/250 ML BAG IV SCH (17:30)
--- NOTE | 2018-02-04 18:08 | CP.PCM.PN ---
Subjective - Date & Time of Evaluation Date of Evaluation: 02/04/18 Time of Evaluation: 18:06 - Subjective Subjective: Patient seen in the room denies fever and chest pain legs wrapped angiogram is planned pain is controlled with no significant narcotics poor prognosis Objective - Vital Signs/Intake and Output Vital Signs (last 24 hours): Temp Pulse Resp BP Pulse Ox 97.6 F 71 20 110/72 96 02/04/18 16:08 02/04/18 16:08 02/04/18 16:08 02/04/18 16:08 02/04/18 16:08 Intake and Output: 02/04/18 02/04/18 06:59 18:59 Intake Total 250 Balance 250 - Medications Medications: Current Medications Acetaminophen (Tylenol 325mg Tab) 650 mg PO Q4 PRN PRN Reason: Pain, Mild (1-3) Acetaminophen (Tylenol 325mg Tab) 650 mg PO Q4 PRN PRN Reason: TEMP >100 Bacitracin (Bacitracin Oint) 1 applic TOP DAILY [facility] Last Admin: 02/04/18 09:34 Dose: Not Given Bisacodyl (Dulcolax) 10 mg [place] DAILY PRN PRN Reason: Constipation Ciprofloxacin (Cipro) 250 mg PO Q12 [facility] PRN Reason: Protocol Last Admin: 02/04/18 09:16 Dose: 250 mg Clopidogrel Bisulfate (Plavix) 75 mg PO DAILY [facility] Last Admin: 02/04/18 09:15 Dose: 75 mg Docusate Sodium (Colace) 100 mg PO DAILY [facility] Last Admin: 02/04/18 09:15 Dose: 100 mg Epoetin Eduardo (Procrit) 4,000 unit SC ONCE ONE Stop: 02/04/18 14:31 Escitalopram Oxalate (Lexapro) 5 mg PO HS [facility] Last Admin: 02/03/18 21:20 Dose: 5 mg Famotidine (Pepcid) 20 mg PO DAILY [facility] Last Admin: 02/04/18 09:15 Dose: 20 mg Ferrous Sulfate (Feosol) 325 mg PO DAILY [facility] Last Admin: 02/04/18 09:15 Dose: 325 mg Furosemide (Lasix) 20 mg PO DAILY [facility] Last Admin: 02/03/18 09:54 Dose: 20 mg Glipizide (Glucotrol Xl) 2.5 mg PO DAILY [facility] Last Admin: 02/04/18 09:18 Dose: 2.5 mg Home Med (Hydrogen Peroxide [Peroxyl Dental Rinse]) 1 appl TOP MOWEFR [facility] Hydroxyzine HCl (Atarax) 10 mg PO TID PRN PRN Reason: pruritis Last Admin: 02/04/18 17:38 Dose: 10 mg Piperacillin Sod/Tazobactam (Sod 2.25 gm/ Sodium Chloride) 100 mls @ 100 mls/ hr IVPB Q6 [facility] PRN Reason: Protocol Last Admin: 02/04/18 16:37 Dose: 100 mls/hr Heparin Sodium/Dextrose (Heparin 25,000 Units/250ml In D5w) 25,000 units in 250 mls @ 12 mls/hr IV .[id number] [facility] PRN Reason: Protocol Last Admin: 02/04/18 17:30 Dose: 12 mls/hr, 12 mls/hr Sodium Chloride (Sodium Chloride 0.9%) 1,000 mls @ 40 mls/hr IV .[id number] [facility] Stop: 02/05/18 12:51 Last Admin: 02/04/18 14:00 Dose: 40 mls/hr Heparin Sodium/Dextrose (Heparin 25,000 Units/250ml In D5w) 25,000 units in 250 mls @ 12 mls/hr IV .[id number] [facility] PRN Reason: Protocol Last Admin: 02/04/18 15:15 Dose: Not Given Lactobacillus Acidophilus (Bacid Acidophilus) 1 cap PO BID [facility] Last Admin: 02/04/18 17:38 Dose: 1 cap Magnesium Hydroxide (Milk Of Magnesia) 30 ml PO HS PRN PRN Reason: Constipation Last Admin: 02/02/18 21:33 Dose: 30 ml Memantine (Namenda) 5 mg PO BID [facility] Last Admin: 02/04/18 17:44 Dose: 5 mg Methimazole (Tapazole) 5 mg PO DAILY [facility] Last Admin: 02/04/18 09:16 Dose: 5 mg Miconazole Nitrate (Critic-Aid Clear Af) 1 applic TOP BID [facility] Last Admin: 02/03/18 17:15 Dose: 1 applic Petrolatum (Desitin Maximum Strength Topical 40% Oint) 1 applic TOP QSHIFT [facility] Last Admin: 02/04/18 09:36 Dose: 1 applic Risperidone (Risperidone Odt 0.25mg) 0.25 mg PO Q12 PRN PRN Reason: Psychosis Last Admin: 02/04/18 09:16 Dose: 0.25 mg - Labs Labs: 02/04/18 09:44 02/04/18 08:44 PT 15.1 Seconds (9.8-13.1) H 02/04/18 13:10 INR 1.4 (0.9-1.2) H 02/04/18 13:10 APTT 54.7 Seconds (25.6-37.1) H D 02/04/18 13:10
--- NOTE | 2018-02-04 18:21 | CON ---
DATE: NEUROLOGY CONSULTATION REPORT REASON FOR CONSULTATION: White matter ischemic changes and dementia. HISTORY OF PRESENTING ILLNESS: The patient is a 77-year-old female, who was admitted for leg cellulitis. The patient was noticed to be confused in the hospital. The patient also noted to have memory dysfunction. The patient had CT scan of the head done, which shows moderate diffuse confluent chronic periventricular white matter ischemic changes seen, extending peripherally into the deep and subcortical white matter both cerebral hemispheres. More in the left and to a lesser degree at right superior frontal subcortical region near the vertex present as well. There may also be a few scattered chronic bilateral basal nuclei lacunar type infarcts. The patient is a poor historian and denies any complaints other than leg pain. REVIEW OF SYSTEMS: Denied any headache, dizziness, chest pain, shortness of breath, abdominal pain, constipation, diarrhea, dysuria, cough, sputum production, hallucinations, or skin rash. PAST MEDICAL HISTORY: Includes dementia. CURRENT MEDICATIONS: Included cetirizine ointment, ciprofloxacin, Colace, zinc oxide, Dulcolax p.r.n., ferrous sulfate, glipizide, Lasix, Lexapro, Namenda 5 mg daily, Plavix, methimazole,and Zosyn. ALLERGIES: NO KNOWN DRUG ALLERGIES. SOCIAL HISTORY: The patient is a nonsmoker, nonalcoholic, and does not use any illicit drugs. FAMILY HISTORY: Reviewed and noncontributory to the case. PHYSICAL EXAMINATION: GENERAL: The patient is an elderly female sitting in no acute distress. VITAL SIGNS: Her blood pressure is 94/52, heart rate is 81 per minute, breathing at the rate of 16 per minute, and temperature is 97.8 degrees Fahrenheit. HEENT: Head is normocephalic and atraumatic. NECK: Supple. There are no carotid bruits. LUNGS: Clear. CARDIOVASCULAR: S1 and S2 audible. No murmurs. ABDOMEN: Soft and nontender. Bowel sounds are present. NEUROLOGIC: Mental status: The patient is awake and alert and oriented to place as hospital, year as 1919, month as January, and President as Linda. She follows all simple commands. Cranial nerve examination: Pupils are 3 mm bilaterally, reactive to light. Visual arthur are full. Extraocular movements are intact. There is no facial asymmetry. Palate is upgoing bilaterally and tongue is midline. Motor examination: Tone is normal, power is 4-5/5 bilaterally in all extremities. Reflexes are 1+ and symmetrical. Gait is deferred at the moment. The patient's lower extremities are wrapped up because of cellulitis. Cerebellar: [id number] shows no dysmetria. LABORATORY DATA: Reviewed, shows WBC of 12.4, hemoglobin of 8.2, hematocrit of 26.6, and platelets of 284. Her INR is 1.4. Sodium is 131, potassium 3.8, chloride 99, carbon dioxide content of 20, BUN of 50, creatinine 1.4, and glucose of 140. The patient had a CT scan of the head done, which shows periventricular white matter ischemic changes. The patient's TSH is normal at 2.63. IMPRESSION: 1. Cerebrovascular disease. 2. Dementia, which appears to be a combination of Alzheimer's plus possible vascular dementia as well. RECOMMENDATIONS: 1. The patient was on Namenda even in the correction. She was on 5 mg daily. We will increase the dose to 5 mg twice a day. 2. The patient will have vitamin B12 level. 3. The patient to be continued on Plavix for underlying cerebrovascular disease. 4. The patient will have a carotid Doppler study. 5. We will also obtain cholesterol level. 6. Please continue other treatment and supportive care. Thank you for the opportunity to participate in the care of this patient. Josselyn Guerrero MD
--- NOTE | 2018-02-04 18:55 | CP.PCM.CON ---
History of Present Illness - History of Present Illness History of Present Illness: 77 year old female with a history of DM, CAD, CHF, chronic anemia, chronic lower extremity wounds, admitted with lower extremity swelling and infected skin wounds with anemia. The patient is well known to me from her prior admission. Her anemia work up showed declining iron stores and anemia of chronic disease. She currently reports to feeling weak and tired. She notes a foul smell coming from her leg wounds. Past medical history: DM, CAD, CHF, anemia Past surgical history: Denies Family history: Denies hematologic and oncologic problems Social history: Former tobacco Allergies: NKA Review of systems: All remaining review of systems including HEENT, cardiovascular, respiratory, gastrointestinal, genitourinary, musculoskeletal, dermatologic, neurologic, and psychiatric are negative unless mentioned in the HPI. Past Patient History - Infectious Disease Hx of Infectious Diseases: None - Past Medical History & Family History Past Medical History?: Yes - Past Social History Smoking Status: Former Smoker - CARDIAC Hx Congestive Heart Failure: Yes Hx Hypercholesterolemia: Yes Hx Hypertension: Yes Hx Peripheral Edema: Yes - PULMONARY Hx Bronchitis: Yes Hx Chronic Obstructive Pulmonary Disease (COPD): Yes Hx Pneumonia: Yes - NEUROLOGICAL Other/Comment: Paresthesias of both feet - HEENT Hx HEENT Problems: No - RENAL Hx Chronic Kidney Disease: Yes Hx Kidney Stones: Yes (kidney stone removal) - ENDOCRINE/METABOLIC Hx Hyperthyroidism: Yes - HEMATOLOGICAL/ONCOLOGICAL Hx Anemia: Yes Hx Human Immunodeficiency Virus (HIV): No - INTEGUMENTARY Hx Dermatological Problems: Yes Other/Comment: Dependent edema of both lower extremities with blister formation - MUSCULOSKELETAL/RHEUMATOLOGICAL Hx Falls: Yes - GASTROINTESTINAL Hx Gastrointestinal Disorders: No - GENITOURINARY/GYNECOLOGICAL Hx Genitourinary Disorders: No - PSYCHIATRIC Hx Psychophysiologic Disorder: No Hx Substance Use: No - SURGICAL HISTORY Hx Appendectomy: Yes - ANESTHESIA Hx Anesthesia: Yes Hx Anesthesia Reactions: No Hx Malignant Hyperthermia: No Meds Allergies/Adverse Reactions: Allergies Allergy/AdvReac Type Severity Reaction Status Date / Time No Known Allergies Allergy Verified 12/18/17 16:07 - Medications Medications: Current Medications Acetaminophen (Tylenol 325mg Tab) 650 mg PO Q4 PRN PRN Reason: Pain, Mild (1-3) Acetaminophen (Tylenol 325mg Tab) 650 mg PO Q4 PRN PRN Reason: TEMP >100 Bacitracin (Bacitracin Oint) 1 applic TOP DAILY [facility] Last Admin: 02/04/18 09:34 Dose: Not Given Bisacodyl (Dulcolax) 10 mg [place] DAILY PRN PRN Reason: Constipation Ciprofloxacin (Cipro) 250 mg PO Q12 [facility] PRN Reason: Protocol Last Admin: 02/04/18 09:16 Dose: 250 mg Clopidogrel Bisulfate (Plavix) 75 mg PO DAILY [facility] Last Admin: 02/04/18 09:15 Dose: 75 mg Docusate Sodium (Colace) 100 mg PO DAILY [facility] Last Admin: 02/04/18 09:15 Dose: 100 mg Escitalopram Oxalate (Lexapro) 5 mg PO HS [facility] Last Admin: 02/03/18 21:20 Dose: 5 mg Famotidine (Pepcid) 20 mg PO DAILY [facility] Last Admin: 02/04/18 09:15 Dose: 20 mg Ferrous Sulfate (Feosol) 325 mg PO DAILY [facility] Last Admin: 02/04/18 09:15 Dose: 325 mg Furosemide (Lasix) 20 mg PO DAILY [facility] Last Admin: 02/03/18 09:54 Dose: 20 mg Glipizide (Glucotrol Xl) 2.5 mg PO DAILY [facility] Last Admin: 02/04/18 09:18 Dose: 2.5 mg Home Med (Hydrogen Peroxide [Peroxyl Dental Rinse]) 1 appl TOP MOWEFR [facility] Hydroxyzine HCl (Atarax) 10 mg PO TID PRN PRN Reason: pruritis Last Admin: 02/04/18 17:38 Dose: 10 mg Piperacillin Sod/Tazobactam (Sod 2.25 gm/ Sodium Chloride) 100 mls @ 100 mls/ hr IVPB Q6 [facility] PRN Reason: Protocol Last Admin: 02/04/18 16:37 Dose: 100 mls/hr Heparin Sodium/Dextrose (Heparin 25,000 Units/250ml In D5w) 25,000 units in 250 mls @ 12 mls/hr IV .[id number] [facility] PRN Reason: Protocol Last Admin: 02/04/18 17:30 Dose: 12 mls/hr, 12 mls/hr Sodium Chloride (Sodium Chloride 0.9%) 1,000 mls @ 40 mls/hr IV .Q24H [facility] Stop: 02/05/18 12:51 Last Admin: 02/04/18 14:00 Dose: 40 mls/hr Heparin Sodium/Dextrose (Heparin 25,000 Units/250ml In D5w) 25,000 units in 250 mls @ 12 mls/hr IV .[id number] [facility] PRN Reason: Protocol Last Admin: 02/04/18 15:15 Dose: Not Given Lactobacillus Acidophilus (Bacid Acidophilus) 1 cap PO BID [facility] Last Admin: 02/04/18 17:38 Dose: 1 cap Magnesium Hydroxide (Milk Of Magnesia) 30 ml PO HS PRN PRN Reason: Constipation Last Admin: 02/02/18 21:33 Dose: 30 ml Memantine (Namenda) 5 mg PO BID [facility] Last Admin: 02/04/18 17:44 Dose: 5 mg Methimazole (Tapazole) 5 mg PO DAILY [facility] Last Admin: 02/04/18 09:16 Dose: 5 mg Miconazole Nitrate (Critic-Aid Clear Af) 1 applic TOP BID [facility] Last Admin: 02/03/18 17:15 Dose: 1 applic Petrolatum (Desitin Maximum Strength Topical 40% Oint) 1 applic TOP QSHIFT [facility] Last Admin: 02/04/18 09:36 Dose: 1 applic Risperidone (Risperidone Odt 0.25mg) 0.25 mg PO Q12 PRN PRN Reason: Psychosis Last Admin: 02/04/18 09:16 Dose: 0.25 mg Physical Exam - Head Exam Head Exam: ATRAUMATIC - Eye Exam Eye Exam: Normal appearance - ENT Exam ENT Exam: Mucous Membranes Dry - Respiratory Exam Respiratory Exam: NORMAL BREATHING PATTERN - Cardiovascular Exam Cardiovascular Exam: +S1, +S2 - GI/Abdominal Exam GI & Abdominal Exam: Normal Bowel Sounds - Extremities Exam Additional comments: B/L LE extremity dressings. Results - Vital Signs Recent Vital Signs: Last Vital Signs Temp 97.6 F 02/04/18 16:08 Pulse 71 02/04/18 16:08 Resp 20 02/04/18 16:08 BP 110/72 02/04/18 16:08 Pulse Ox 96 02/04/18 16:08 - Labs Result Diagrams: 02/04/18 09:44 02/04/18 08:44 Labs: Laboratory Results - last 24 hr 02/03/18 02/04/18 02/04/18 23:58 06:10 08:44 WBC RBC Hgb Hct MCV MCH MCHC RDW Plt Count PT 14.4 H 15.4 H INR 1.3 H 1.4 H APTT 50.3 H D 62.9 H D Sodium 131 L Potassium 3.8 Chloride 99 Carbon Dioxide 20 L Anion Gap 16 BUN 50 H Creatinine 1.4 H Est GFR ( Amer) 44 Est GFR (Non-Af Amer) 36 Random Glucose 140 H Calcium 8.3 L Iron TIBC % Saturation Ferritin Vitamin B12 Blood Type Antibody Screen Crossmatch [facility] History Checked 02/04/18 02/04/18 02/04/18 09:44 10:40 11:18 WBC 18.0 H RBC 3.20 L Hgb 7.7 L Hct 24.6 L MCV 76.7 L MCH 24.2 L MCHC 31.5 L RDW 20.1 H Plt Count 274 PT INR APTT Sodium Potassium Chloride Carbon Dioxide Anion Gap BUN Creatinine Est GFR ( Amer) Est GFR (Non-Af Amer) Random Glucose Calcium Iron 18 L TIBC 292 % Saturation 6 L Ferritin 76.1 Vitamin B12 497 Blood Type Antibody Screen Crossmatch BBK History Checked 02/04/18 02/04/18 11:18 13:10 WBC RBC Hgb Hct MCV MCH MCHC RDW Plt Count PT 15.1 H INR 1.4 H APTT 54.7 H D Sodium Potassium Chloride Carbon Dioxide Anion Gap BUN Creatinine Est GFR ( Amer) Est GFR (Non-Af Amer) Random Glucose Calcium Iron TIBC % Saturation Ferritin Vitamin B12 Blood Type A POSITIVE Antibody Screen Negative Crossmatch See Detail BBK History Checked Patient has bt Assessment & Plan (1) Anemia Assessment and Plan: anemia of chronic disease from infection and anemia of CKD will give a dose of Procrit today will consider PRBC transfusion if H/H remains < 8 iron stores improved from prior admission; will hold off on IV iron given acute infection Status: Acute (2) Leukocytosis Assessment and Plan: on antibiotics Thank you for this interesting consult. Status: Acute
--- NOTE | 2018-02-04 20:42 | CP.PCM.PN ---
Subjective - Date & Time of Evaluation Date of Evaluation: 02/04/18 Time of Evaluation: 22:22 - Subjective Subjective: Above noted Creat 1.4 WBC 18k Objective - Vital Signs/Intake and Output Vital Signs (last 24 hours): Temp Pulse Resp BP Pulse Ox 97.6 F 71 20 110/72 96 02/04/18 16:08 02/04/18 16:08 02/04/18 16:08 02/04/18 16:08 02/04/18 16:08 Intake and Output: 02/04/18 02/05/18 18:59 06:59 Intake Total 250 Balance 250 - Medications Medications: Current Medications Acetaminophen (Tylenol 325mg Tab) 650 mg PO Q4 PRN PRN Reason: Pain, Mild (1-3) Acetaminophen (Tylenol 325mg Tab) 650 mg PO Q4 PRN PRN Reason: TEMP >100 Bacitracin (Bacitracin Oint) 1 applic TOP DAILY [facility] Last Admin: 02/04/18 09:34 Dose: Not Given Bisacodyl (Dulcolax) 10 mg [place] DAILY PRN PRN Reason: Constipation Ciprofloxacin (Cipro) 250 mg PO Q12 [facility] PRN Reason: Protocol Last Admin: 02/04/18 09:16 Dose: 250 mg Clopidogrel Bisulfate (Plavix) 75 mg PO DAILY [facility] Last Admin: 02/04/18 09:15 Dose: 75 mg Docusate Sodium (Colace) 100 mg PO DAILY [facility] Last Admin: 02/04/18 09:15 Dose: 100 mg Escitalopram Oxalate (Lexapro) 5 mg PO [facility] Last Admin: 02/03/18 21:20 Dose: 5 mg Famotidine (Pepcid) 20 mg PO DAILY [facility] Last Admin: 02/04/18 09:15 Dose: 20 mg Ferrous Sulfate (Feosol) 325 mg PO DAILY [facility] Last Admin: 02/04/18 09:15 Dose: 325 mg Furosemide (Lasix) 20 mg PO DAILY [facility] Last Admin: 02/03/18 09:54 Dose: 20 mg Glipizide (Glucotrol Xl) 2.5 mg PO DAILY [facility] Last Admin: 02/04/18 09:18 Dose: 2.5 mg Home Med (Hydrogen Peroxide [Peroxyl Dental Rinse]) 1 appl TOP MOWEFR [facility] Hydroxyzine HCl (Atarax) 10 mg PO TID PRN PRN Reason: pruritis Last Admin: 02/04/18 17:38 Dose: 10 mg Piperacillin Sod/Tazobactam (Sod 2.25 gm/ Sodium Chloride) 100 mls @ 100 mls/ hr IVPB Q6 [facility] PRN Reason: Protocol Last Admin: 02/04/18 16:37 Dose: 100 mls/hr Heparin Sodium/Dextrose (Heparin 25,000 Units/250ml In D5w) 25,000 units in 250 mls @ 12 mls/hr IV .[id number] [facility] PRN Reason: Protocol Last Admin: 02/04/18 17:30 Dose: 12 mls/hr, 12 mls/hr Sodium Chloride (Sodium Chloride 0.9%) 1,000 mls @ 40 mls/hr IV .Q24H [facility] Stop: 02/05/18 12:51 Last Admin: 02/04/18 14:00 Dose: 40 mls/hr Heparin Sodium/Dextrose (Heparin 25,000 Units/250ml In D5w) 25,000 units in 250 mls @ 12 mls/hr IV .[id number] [facility] PRN Reason: Protocol Last Admin: 02/04/18 15:15 Dose: Not Given Lactobacillus Acidophilus (Bacid Acidophilus) 1 cap PO BID [facility] Last Admin: 02/04/18 17:38 Dose: 1 cap Magnesium Hydroxide (Milk Of Magnesia) 30 ml PO HS PRN PRN Reason: Constipation Last Admin: 02/02/18 21:33 Dose: 30 ml Memantine (Namenda) 5 mg PO BID [facility] Last Admin: 02/04/18 17:44 Dose: 5 mg Methimazole (Tapazole) 5 mg PO DAILY [facility] Last Admin: 02/04/18 09:16 Dose: 5 mg Miconazole Nitrate (Critic-Aid Clear Af) 1 applic TOP BID [facility] Last Admin: 02/03/18 17:15 Dose: 1 applic Petrolatum (Desitin Maximum Strength Topical 40% Oint) 1 applic TOP QSHIFT [facility] Last Admin: 02/04/18 09:36 Dose: 1 applic Risperidone (Risperidone Odt 0.25mg) 0.25 mg PO Q12 [facility] PRN Reason: Psychosis Last Admin: 02/04/18 09:16 Dose: 0.25 mg - Labs Labs: 02/04/18 09:44 02/04/18 08:44 PT 15.1 Seconds (9.8-13.1) H 02/04/18 13:10 INR 1.4 (0.9-1.2) H 02/04/18 13:10 APTT 54.7 Seconds (25.6-37.1) H D 02/04/18 13:10 - Respiratory Exam Respiratory Exam: NORMAL BREATHING PATTERN - Cardiovascular Exam Cardiovascular Exam: Tachycardia - GI/Abdominal Exam GI & Abdominal Exam: Normal Bowel Sounds Assessment and Plan - Assessment and Plan (Free Text) Assessment: Low ext edema cellulitis Significant Aterial occlusive dx Wound cs Serratia Leg elevation IV ABX Zosyn/ Vanco ID Podiatry Surgery Physiatry Vascular Angiogram low ext ABBEY/ CKD creat increased (contrast study??) Nephrology IVF Psychiatric dx?? Ultram?? Adj disorder with depression Psychiatry SSRI Resperidol CHF Diastolic CAD stress thalium scarring ischemia?? cardiac cath refused?? Cardiology Hx COPD L Pleural effusion Pulmonary Hx Anemia ASA d/c as outpt due to dec Hbg NIDDM Thyroid dx Endo
[2018-02-04 21:52] LABS: FOLATE 9.5 ng/mL
[2018-02-04] MEDS ORDERED: Epoetin Alfa 20000 UNIT/ML Inj SC ONE (22:17)
[2018-02-05 06:47] LABS: BASO # 0.1 K/uL (0.0-0.2); BASO % 0.5 % (0.0-2.0); HEMOGLOBIN 7.7 g/dL (12.0-16.0); LYMPH # 0.4 K/uL (1.0-4.3); LYMPH % 1.8 % (20.0-40.0); MEAN CORPUSCULAR HEMOGLOBIN 23.9 pg (27.0-31.0); MEAN PLATELET VOLUME 8.3 fl (7.2-11.7); MONO # 1.2 K/uL (0.0-0.8); MONO % 5.4 % (0.0-10.0); NEUT # 20.3 K/uL (1.8-7.0); NEUT % 92.3 % (50.0-75.0); PLATELET COUNT 286 K/uL (130-400); RBC 3.21 Mil/uL (3.80-5.20); RED CELL DISTRIBUTION WIDTH 20.4 % (11.5-14.5)
[2018-02-05 06:48] LABS: INR 1.4 (0.9-1.2); PROTHROMBIN TIME 15.1 Seconds (9.8-13.1)
--- NOTE | 2018-02-05 08:55 | CP.PCM.PN ---
Subjective - Date & Time of Evaluation Date of Evaluation: 02/05/18 Time of Evaluation: 08:53 - Subjective Subjective: Interim events reviewed. Abrupt increase in WBC. Hgb has dropped to 7.7gm. Has remained afebrile. No cough or shortness of breath. Chest x-ray requested. Objective - Vital Signs/Intake and Output Vital Signs (last 24 hours): Temp Pulse Resp BP Pulse Ox 97.4 F L 89 19 105/54 L 96 02/05/18 07:59 02/05/18 07:59 02/05/18 07:59 02/05/18 07:59 02/05/18 07:59 Intake and Output: 02/04/18 02/05/18 23:59 11:59 Intake Total 250 Balance 250 - Medications Medications: Current Medications Acetaminophen (Tylenol 325mg Tab) 650 mg PO Q4 PRN PRN Reason: Pain, Mild (1-3) Acetaminophen (Tylenol 325mg Tab) 650 mg PO Q4 PRN PRN Reason: TEMP >100 Bacitracin (Bacitracin Oint) 1 applic TOP DAILY [facility] Last Admin: 02/04/18 09:34 Dose: Not Given Bisacodyl (Dulcolax) 10 mg [place] DAILY PRN PRN Reason: Constipation Ciprofloxacin (Cipro) 250 mg PO Q12 [facility] PRN Reason: Protocol Last Admin: 02/04/18 21:30 Dose: 250 mg Clopidogrel Bisulfate (Plavix) 75 mg PO DAILY [facility] Last Admin: 02/04/18 09:15 Dose: 75 mg Docusate Sodium (Colace) 100 mg PO DAILY [facility] Last Admin: 02/04/18 09:15 Dose: 100 mg Escitalopram Oxalate (Lexapro) 5 mg PO HS [facility] Last Admin: 02/04/18 21:31 Dose: 5 mg Famotidine (Pepcid) 20 mg PO DAILY [facility] Last Admin: 02/04/18 09:15 Dose: 20 mg Ferrous Sulfate (Feosol) 325 mg PO DAILY [facility] Last Admin: 02/04/18 09:15 Dose: 325 mg Furosemide (Lasix) 20 mg PO DAILY [facility] Last Admin: 02/03/18 09:54 Dose: 20 mg Glipizide (Glucotrol Xl) 2.5 mg PO DAILY [facility] Last Admin: 02/04/18 09:18 Dose: 2.5 mg Heparin Sodium (Porcine) (Heparin) 2,600 units IVP ONCE ONE PRN Reason: Protocol Stop: 02/05/18 08:43 Home Med (Hydrogen Peroxide [Peroxyl Dental Rinse]) 1 appl TOP MOWEFR [facility] Home Med (Home Med) 400 unit IV DAILY [facility] Hydroxyzine HCl (Atarax) 10 mg PO TID PRN PRN Reason: pruritis Last Admin: 02/05/18 03:20 Dose: 10 mg Piperacillin Sod/Tazobactam (Sod 2.25 gm/ Sodium Chloride) 100 mls @ 100 mls/ hr IVPB Q6 [facility] PRN Reason: Protocol Last Admin: 02/05/18 04:02 Dose: 100 mls/hr Sodium Chloride (Sodium Chloride 0.9%) 1,000 mls @ 40 mls/hr IV .Q24H [facility] Stop: 02/05/18 12:51 Last Admin: 02/04/18 14:00 Dose: 40 mls/hr Heparin Sodium/Dextrose (Heparin 25,000 Units/250ml In D5w) 25,000 units in 250 mls @ 12 mls/hr IV .[id number] [facility] PRN Reason: Protocol Last Admin: 02/04/18 15:15 Dose: Not Given Lactobacillus Acidophilus (Bacid Acidophilus) 1 cap PO BID [facility] Last Admin: 02/04/18 17:38 Dose: 1 cap Magnesium Hydroxide (Milk Of Magnesia) 30 ml PO HS PRN PRN Reason: Constipation Last Admin: 02/02/18 21:33 Dose: 30 ml Memantine (Namenda) 5 mg PO BID [facility] Last Admin: 02/04/18 17:44 Dose: 5 mg Methimazole (Tapazole) 5 mg PO DAILY [facility] Last Admin: 02/04/18 09:16 Dose: 5 mg Miconazole Nitrate (Critic-Aid Clear Af) 1 applic TOP BID [facility] Last Admin: 02/03/18 17:15 Dose: 1 applic Petrolatum (Desitin Maximum Strength Topical 40% Oint) 1 applic TOP QSHIFT [facility] Last Admin: 02/04/18 09:36 Dose: 1 applic Risperidone (Risperidone Odt 0.25mg) 0.25 mg PO Q12 PRN PRN Reason: Psychosis Last Admin: 02/04/18 09:16 Dose: 0.25 mg - Labs Labs: 02/05/18 06:20 02/05/18 06:20 PT 15.1 Seconds (9.8-13.1) H 02/05/18 06:20 INR 1.4 (0.9-1.2) H 02/05/18 06:20 APTT 43.0 Seconds (25.6-37.1) H D 02/05/18 06:20
[2018-02-05] MEDS ORDERED: Home Med 1 UNIT IV SCH (09:00)
--- NOTE | 2018-02-05 09:30 | CP.PCM.PN ---
Subjective - Date & Time of Evaluation Date of Evaluation: 02/05/18 Time of Evaluation: 07:45 - Subjective Subjective: NO CHEST PAIN OR SOB FEELS TIRED Objective - Vital Signs/Intake and Output Vital Signs (last 24 hours): Temp Pulse Resp BP Pulse Ox 97.4 F L 89 19 105/54 L 96 02/05/18 07:59 02/05/18 07:59 02/05/18 07:59 02/05/18 07:59 02/05/18 07:59 - Medications Medications: Current Medications Acetaminophen (Tylenol 325mg Tab) 650 mg PO Q4 PRN PRN Reason: Pain, Mild (1-3) Acetaminophen (Tylenol 325mg Tab) 650 mg PO Q4 PRN PRN Reason: TEMP >100 Bacitracin (Bacitracin Oint) 1 applic TOP DAILY [facility] Last Admin: 02/04/18 09:34 Dose: Not Given Bisacodyl (Dulcolax) 10 mg [place] DAILY PRN PRN Reason: Constipation Ciprofloxacin (Cipro) 250 mg PO Q12 [facility] PRN Reason: Protocol Last Admin: 02/04/18 21:30 Dose: 250 mg Clopidogrel Bisulfate (Plavix) 75 mg PO DAILY [facility] Last Admin: 02/04/18 09:15 Dose: 75 mg Docusate Sodium (Colace) 100 mg PO DAILY [facility] Last Admin: 02/04/18 09:15 Dose: 100 mg Escitalopram Oxalate (Lexapro) 5 mg PO HS [facility] Last Admin: 02/04/18 21:31 Dose: 5 mg Famotidine (Pepcid) 20 mg PO DAILY [facility] Last Admin: 02/04/18 09:15 Dose: 20 mg Ferrous Sulfate (Feosol) 325 mg PO DAILY [facility] Last Admin: 02/04/18 09:15 Dose: 325 mg Furosemide (Lasix) 20 mg PO DAILY [facility] Last Admin: 02/03/18 09:54 Dose: 20 mg Glipizide (Glucotrol Xl) 2.5 mg PO DAILY [facility] Last Admin: 02/04/18 09:18 Dose: 2.5 mg Heparin Sodium (Porcine) (Heparin) 2,600 units IVP ONCE ONE PRN Reason: Protocol Stop: 02/05/18 08:43 Home Med (Hydrogen Peroxide [Peroxyl Dental Rinse]) 1 appl TOP MOWEFR [facility] Home Med (Home Med) 400 unit IV DAILY [facility] Hydroxyzine HCl (Atarax) 10 mg PO TID PRN PRN Reason: pruritis Last Admin: 02/05/18 03:20 Dose: 10 mg Piperacillin Sod/Tazobactam (Sod 2.25 gm/ Sodium Chloride) 100 mls @ 100 mls/ hr IVPB Q6 [facility] PRN Reason: Protocol Last Admin: 02/05/18 04:02 Dose: 100 mls/hr Sodium Chloride (Sodium Chloride 0.9%) 1,000 mls @ 40 mls/hr IV .Q24H [facility] Stop: 02/05/18 12:51 Last Admin: 02/04/18 14:00 Dose: 40 mls/hr Heparin Sodium/Dextrose (Heparin 25,000 Units/250ml In D5w) 25,000 units in 250 mls @ 12 mls/hr IV .[id number] [facility] PRN Reason: Protocol Last Admin: 02/04/18 15:15 Dose: Not Given Lactobacillus Acidophilus (Bacid Acidophilus) 1 cap PO BID [facility] Last Admin: 02/04/18 17:38 Dose: 1 cap Magnesium Hydroxide (Milk Of Magnesia) 30 ml PO HS PRN PRN Reason: Constipation Last Admin: 02/02/18 21:33 Dose: 30 ml Memantine (Namenda) 5 mg PO BID [facility] Last Admin: 02/04/18 17:44 Dose: 5 mg Methimazole (Tapazole) 5 mg PO DAILY [facility] Last Admin: 02/04/18 09:16 Dose: 5 mg Miconazole Nitrate (Critic-Aid Clear Af) 1 applic TOP BID [facility] Last Admin: 02/03/18 17:15 Dose: 1 applic Petrolatum (Desitin Maximum Strength Topical 40% Oint) 1 applic TOP QSHIFT [facility] Last Admin: 02/04/18 09:36 Dose: 1 applic Risperidone (Risperidone Odt 0.25mg) 0.25 mg PO Q12 PRN PRN Reason: Psychosis Last Admin: 02/04/18 09:16 Dose: 0.25 mg - Labs Labs: 02/05/18 06:20 02/05/18 06:20 PT 15.1 Seconds (9.8-13.1) H 02/05/18 06:20 INR 1.4 (0.9-1.2) H 06/13/18 06:20 APTT 43.0 Seconds (25.6-37.1) H D 02/05/18 06:20 - Respiratory Exam Respiratory Exam: Decreased Breath Sounds - Cardiovascular Exam Cardiovascular Exam: REGULAR RHYTHM, +S1, +S2 - Extremities Exam Additional comments: BILATERAL LE ULCERS Assessment and Plan - Assessment and Plan (Free Text) Assessment: CAD HTN PAD ANEMIA Plan: CONTINUE HEPARIN, CLOPIDOGREL, ANTIBIOTICS
[2018-02-05 09:38] LABS: ANISOCYTOSIS MODERATE; BANDS 3 % (0-2); LYMPHOCYTE 4 % (20-50); MICROCYTOSIS SLIGHT; MONOCYTE 5 % (0-10); NEUTROPHIL 88 % (42-75); PLATELET ESTIMATE NORMAL (NORMAL); TOTAL CELLS COUNTED 100
[2018-02-05 09:39] LABS: HYPOCHROMIC MODERATE; LARGE PLATELETS PRESENT; OVALOCYTES SLIGHT
[2018-02-05] MEDS: methIMAzole 5 MG TAB PO SCH (10:10)
[2018-02-05] MEDS: RISPERIDONE 0.25 MG ODT PO PRN (10:13)
[2018-02-05] MEDS: GlipiZIDE 2.5 mg SR Tab PO SCH (10:13)
[2018-02-05] MEDS: Lactobacillus Acidophilus 500 MU Cap PO SCH (10:14)
[2018-02-05] MEDS: Critic-Aid Clear AF TOP SCH (10:15)
[2018-02-05] MEDS: Bacitracin OINT 15GM TOP SCH (10:15)
--- NOTE | 2018-02-05 10:57 | CP.PCM.PN ---
Subjective - Date & Time of Evaluation Date of Evaluation: 02/05/18 Time of Evaluation: 07:00 - Subjective Subjective: Podiatry Progress Note - Dr. Briseno 77 year old female seen and evaluated for bilateral lower extremity ulcerations with cellulitis. Patient is seen resting in chair and legs elevated today, appeared tired. Expresses pain with dressing change. Patient reports same pain. Denies F/C/N/V/CP/SOB Objective - Vital Signs/Intake and Output Vital Signs (last 24 hours): Temp Pulse Resp BP Pulse Ox 97.4 F L 89 19 105/54 L 96 02/05/18 07:59 02/05/18 07:59 02/05/18 07:59 02/05/18 07:59 02/05/18 07:59 - Medications Medications: Current Medications Acetaminophen (Tylenol 325mg Tab) 650 mg PO Q4 PRN PRN Reason: Pain, Mild (1-3) Acetaminophen (Tylenol 325mg Tab) 650 mg PO Q4 PRN PRN Reason: TEMP >100 Bacitracin (Bacitracin Oint) 1 applic TOP DAILY [facility] Last Admin: 02/05/18 10:15 Dose: 1 applic Bisacodyl (Dulcolax) 10 mg [place] DAILY PRN PRN Reason: Constipation Ciprofloxacin (Cipro) 250 mg PO Q12 [facility] PRN Reason: Protocol Last Admin: 02/05/18 10:12 Dose: 250 mg Clopidogrel Bisulfate (Plavix) 75 mg PO DAILY [facility] Last Admin: 02/05/18 10:10 Dose: 75 mg Docusate Sodium (Colace) 100 mg PO DAILY [facility] Last Admin: 02/05/18 10:12 Dose: 100 mg Escitalopram Oxalate (Lexapro) 5 mg PO HS [facility] Last Admin: 02/04/18 21:31 Dose: 5 mg Famotidine (Pepcid) 20 mg PO DAILY [facility] Last Admin: 02/05/18 10:14 Dose: 20 mg Ferrous Sulfate (Feosol) 325 mg PO DAILY [facility] Last Admin: 02/05/18 10:11 Dose: 325 mg Furosemide (Lasix) 20 mg PO DAILY [facility] Last Admin: 02/03/18 09:54 Dose: 20 mg Glipizide (Glucotrol Xl) 2.5 mg PO DAILY [facility] Last Admin: 02/05/18 10:13 Dose: 2.5 mg Home Med (Hydrogen Peroxide [Peroxyl Dental Rinse]) 1 appl TOP MOWEFR [facility] Hydroxyzine HCl (Atarax) 10 mg PO TID PRN PRN Reason: pruritis Last Admin: 02/05/18 10:10 Dose: 10 mg Piperacillin Sod/Tazobactam (Sod 2.25 gm/ Sodium Chloride) 100 mls @ 100 mls/ hr IVPB Q6 [facility] PRN Reason: Protocol Last Admin: 02/05/18 10:39 Dose: 100 mls/hr Sodium Chloride (Sodium Chloride 0.9%) 1,000 mls @ 40 mls/hr IV .Q24H [facility] Stop: 02/05/18 12:51 Last Admin: 02/04/18 14:00 Dose: 40 mls/hr Heparin Sodium/Dextrose (Heparin 25,000 Units/250ml In D5w) 25,000 units in 250 mls @ 12 mls/hr IV .[id number] [facility] PRN Reason: Protocol Last Admin: 02/04/18 15:15 Dose: Not Given Daptomycin 400 mg/ Sodium (Chloride) 100 mls @ 100 mls/hr IV DAILY [facility] Stop: 02/10/18 10:01 Lactobacillus Acidophilus (Bacid Acidophilus) 1 cap PO BID [facility] Last Admin: 02/05/18 10:14 Dose: 1 cap Magnesium Hydroxide (Milk Of Magnesia) 30 ml PO HS PRN PRN Reason: Constipation Last Admin: 02/02/18 21:33 Dose: 30 ml Memantine (Namenda) 5 mg PO BID [facility] Last Admin: 02/05/18 10:11 Dose: 5 mg Methimazole (Tapazole) 5 mg PO DAILY [facility] Last Admin: 02/05/18 10:10 Dose: 5 mg Miconazole Nitrate (Critic-Aid Clear Af) 1 applic TOP BID [facility] Last Admin: 02/05/18 10:15 Dose: 1 applic Petrolatum (Desitin Maximum Strength Topical 40% Oint) 1 applic TOP QSHIFT [facility] Last Admin: 02/04/18 09:36 Dose: 1 applic Risperidone (Risperidone Odt 0.25mg) 0.25 mg PO Q12 PRN PRN Reason: Psychosis Last Admin: 02/05/18 10:13 Dose: 0.25 mg - Labs Labs: 02/05/18 06:20 02/05/18 06:20 PT 15.1 Seconds (9.8-13.1) H 02/05/18 06:20 INR 1.4 (0.9-1.2) H 02/05/18 06:20 APTT 43.0 Seconds (25.6-37.1) H D 02/05/18 06:20 - Constitutional Appears: Non-toxic, No Acute Distress - Extremities Exam Extremities Exam: absent: Calf Tenderness Additional comments: Vasc: DP pulses and PT pulses nonpalpable, +2 pitting edema to bilateral LE, TG cool to cool, CFT delayed to digits Neuro: Epicritic and protective sensation grossly intact bilaterally Derm: Multiple chronic, 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 All blisters continue to weep serous fluid. Lanced blister is noted to lateral aspect of L plantar heel. Multiple ulcerations noted to the entire lower extremity with mixture of fibrotic/ necrotic wound base: Erythema to the entire LE R>L, malodorous, all sites (-) for purulence, fluctuance, probe to bone, tunneling or undermining. See below: RIGHT- Necrotic right heel ulceration noted with drainage, malodorous. Ulceration noted measuring 7cm x 6cm x 0.1cm to posterior right leg mid calf with multiple vesicles noted to the medial aspect of the leg. Wound base is mainly fibrotic with necrotic tissue noted, odorous, erythema has slightly improved, no tunneling, no probe to bone or tendon exposed. Ulcerations to dorsum of right digits 1, 2, 3, 4 with mixture of fibrotic and necrotic base, nail plate from nail bed of digits right 2, 3, 4 are absent LEFT- Lysed blister site with superficial ulceration measuring 4cm x 1.5cm x 0.1cm noted to anteromedial left leg. Granular in nature. Ulceration site noted to dorsum of L foot with central fibrotic, measuring 4cm x 4.5cm x 0.2cm. Jennifer wound exhibits epithelization with healthy pink skin edges noted to dorsal left foot ulcer site. malodor present, no fluctuance, no probe to bone, no tunneling or no undermining. Ulcerations to distal and dorsum of the left digits 1 and 2 with fibrotic base and macerated periwound. Ortho: Sara's sign negative B/L. All ulceration sites are tender to palpation. No other gross musculoskeletal deformities noted - Neurological Exam Neurological Exam: Alert, Awake - Psychiatric Exam Psychiatric exam: Flat Affect, Normal Mood Assessment and Plan - Assessment and Plan (Free Text) Assessment: 77 year old non compliant female patient with lower extremity cellulitis with lower extremity non healing partial thickness and unstageable ulcerations 2/2 multiple etiologies including DM, PVD, and swelling Plan: Patient seen and evaluated at bedside Discussed plan with Dr. 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 Damon "plan for peripheral angiogram on once renal function stable " Will continue to follow patient while in house
--- NOTE | 2018-02-05 11:55 | VASCULAR ---
PROCEDURE: Date of procedure: 02/03/2018 Procedure: 1. Placement of a right arm PICC with ultrasound and fluoroscopic guidance, CPT 34978 2. PICC tip confirmation with spot radiograph and is in the superior vena cava Medications: 1 percent lidocaine Total Fluoro time: 29.7 seconds Radiation: 2.55 MGy EBL: 2 cc HISTORY: Infection requiring long-term IV antibiotics TECHNIQUE: Following informed consent and procedure time-out, the patient was placed supine on the interventional table and the right arm prepped and draped in the usual sterile fashion. Ultrasound showed a patent and compressible right basilic vein. After the skin was anesthetized with lidocaine, the basilic vein was accessed with micro micropuncture technique using ultrasound guidance. A guidewire was then advanced under fluoroscopic guidance into the superior vena cava. An image documenting ultrasound guidance for vascular access was permanently saved. The length of the single-lumen 4 Portuguese PICC was trimmed to 35 centimeters and advanced through a peel-away sheath. The PICC was position with tip of PICC confirm a spot radiograph the superior vena cava. The PICC was secured to the patient's skin. The PICC was flushed. A biopatch and sterile dressing was applied. IMPRESSION: Placement of a single-lumen 4 Portuguese PICC trimmed to 35 centimeters via right basilic vein. The tip of the PICC is confirmed with spot radiograph and is in the superior vena cava.
--- NOTE | 2018-02-05 12:00 | CP.PCM.PN ---
Subjective - Date & Time of Evaluation Date of Evaluation: 02/05/18 Time of Evaluation: 10:00 - Subjective Subjective: Feels weak Objective - Vital Signs/Intake and Output Vital Signs (last 24 hours): Temp Pulse Resp BP Pulse Ox 97.4 F L 89 19 105/54 L 96 02/05/18 07:59 02/05/18 07:59 02/05/18 07:59 02/05/18 07:59 02/05/18 07:59 - Medications Medications: Current Medications Acetaminophen (Tylenol 325mg Tab) 650 mg PO Q4 PRN PRN Reason: Pain, Mild (1-3) Acetaminophen (Tylenol 325mg Tab) 650 mg PO Q4 PRN PRN Reason: TEMP >100 Bacitracin (Bacitracin Oint) 1 applic TOP DAILY [facility] Last Admin: 02/05/18 10:15 Dose: 1 applic Bisacodyl (Dulcolax) 10 mg [place] DAILY PRN PRN Reason: Constipation Ciprofloxacin (Cipro) 250 mg PO Q12 [facility] PRN Reason: Protocol Last Admin: 02/05/18 10:12 Dose: 250 mg Clopidogrel Bisulfate (Plavix) 75 mg PO DAILY [facility] Last Admin: 02/05/18 10:10 Dose: 75 mg Docusate Sodium (Colace) 100 mg PO DAILY [facility] Last Admin: 02/05/18 10:12 Dose: 100 mg Escitalopram Oxalate (Lexapro) 5 mg PO HS [facility] Last Admin: 02/04/18 21:31 Dose: 5 mg Famotidine (Pepcid) 20 mg PO DAILY [facility] Last Admin: 02/05/18 10:14 Dose: 20 mg Ferrous Sulfate (Feosol) 325 mg PO DAILY [facility] Last Admin: 02/05/18 10:11 Dose: 325 mg Furosemide (Lasix) 20 mg PO DAILY [facility] Last Admin: 02/03/18 09:54 Dose: 20 mg Glipizide (Glucotrol Xl) 2.5 mg PO DAILY [facility] Last Admin: 02/05/18 10:13 Dose: 2.5 mg Home Med (Hydrogen Peroxide [Peroxyl Dental Rinse]) 1 appl TOP MOWEFR [facility] Hydroxyzine HCl (Atarax) 10 mg PO TID PRN PRN Reason: pruritis Last Admin: 02/05/18 10:10 Dose: 10 mg Piperacillin Sod/Tazobactam (Sod 2.25 gm/ Sodium Chloride) 100 mls @ 100 mls/ hr IVPB Q6 [facility] PRN Reason: Protocol Last Admin: 02/05/18 10:39 Dose: 100 mls/hr Sodium Chloride (Sodium Chloride 0.9%) 1,000 mls @ 40 mls/hr IV .Q24H [facility] Stop: 02/05/18 12:51 Last Admin: 02/04/18 14:00 Dose: 40 mls/hr Heparin Sodium/Dextrose (Heparin 25,000 Units/250ml In D5w) 25,000 units in 250 mls @ 12 mls/hr IV .[id number] [facility] PRN Reason: Protocol Last Admin: 02/04/18 15:15 Dose: Not Given Daptomycin 400 mg/ Sodium (Chloride) 100 mls @ 100 mls/hr IV DAILY [facility] Stop: 02/10/18 10:01 Lactobacillus Acidophilus (Bacid Acidophilus) 1 cap PO BID [facility] Last Admin: 02/05/18 10:14 Dose: 1 cap Magnesium Hydroxide (Milk Of Magnesia) 30 ml PO HS PRN PRN Reason: Constipation Last Admin: 02/02/18 21:33 Dose: 30 ml Memantine (Namenda) 5 mg PO BID [facility] Last Admin: 02/05/18 10:11 Dose: 5 mg Methimazole (Tapazole) 5 mg PO DAILY [facility] Last Admin: 02/05/18 10:10 Dose: 5 mg Miconazole Nitrate (Critic-Aid Clear Af) 1 applic TOP BID [facility] Last Admin: 02/05/18 10:15 Dose: 1 applic Petrolatum (Desitin Maximum Strength Topical 40% Oint) 1 applic TOP QSHIFT [facility] Last Admin: 02/04/18 09:36 Dose: 1 applic Risperidone (Risperidone Odt 0.25mg) 0.25 mg PO Q12 PRN PRN Reason: Psychosis Last Admin: 02/05/18 10:13 Dose: 0.25 mg - Labs Labs: 02/05/18 06:20 02/05/18 06:20 PT 15.1 Seconds (9.8-13.1) H 02/05/18 06:20 INR 1.4 (0.9-1.2) H 02/05/18 06:20 APTT 43.0 Seconds (25.6-37.1) H D 02/05/18 06:20 - Head Exam Head Exam: ATRAUMATIC - Eye Exam Eye Exam: Normal appearance - ENT Exam ENT Exam: Mucous Membranes Dry - Respiratory Exam Respiratory Exam: NORMAL BREATHING PATTERN - Cardiovascular Exam Cardiovascular Exam: +S1, +S2 - GI/Abdominal Exam GI & Abdominal Exam: Normal Bowel Sounds Assessment and Plan (1) Anemia Assessment & Plan: anemia of chronic disease and renal disease s/p Procrit yesterday for PRBC transfusion today given continued debility Status: Acute (2) Leukocytosis Assessment & Plan: on antibiotics Status: Acute
--- NOTE | 2018-02-05 12:24 | CP.PCM.PN ---
Subjective - Date & Time of Evaluation Date of Evaluation: 02/05/18 Time of Evaluation: 09:00 - Subjective Subjective: has bilat leg ulcers/ cellulitis / necrosis needs bilat amp Objective - Vital Signs/Intake and Output Vital Signs (last 24 hours): Temp Pulse Resp BP Pulse Ox 97.4 F L 89 19 105/54 L 96 02/05/18 07:59 02/05/18 07:59 02/05/18 07:59 02/05/18 07:59 02/05/18 07:59 - Medications Medications: Current Medications Acetaminophen (Tylenol 325mg Tab) 650 mg PO Q4 PRN PRN Reason: Pain, Mild (1-3) Acetaminophen (Tylenol 325mg Tab) 650 mg PO Q4 PRN PRN Reason: TEMP >100 Bacitracin (Bacitracin Oint) 1 applic TOP DAILY [facility] Last Admin: 02/05/18 10:15 Dose: 1 applic Bisacodyl (Dulcolax) 10 mg [place] DAILY PRN PRN Reason: Constipation Ciprofloxacin (Cipro) 250 mg PO Q12 [facility] PRN Reason: Protocol Last Admin: 02/05/18 10:12 Dose: 250 mg Clopidogrel Bisulfate (Plavix) 75 mg PO DAILY [facility] Last Admin: 02/05/18 10:10 Dose: 75 mg Docusate Sodium (Colace) 100 mg PO DAILY [facility] Last Admin: 02/05/18 10:12 Dose: 100 mg Escitalopram Oxalate (Lexapro) 5 mg PO HS [facility] Last Admin: 02/04/18 21:31 Dose: 5 mg Famotidine (Pepcid) 20 mg PO DAILY [facility] Last Admin: 02/05/18 10:14 Dose: 20 mg Ferrous Sulfate (Feosol) 325 mg PO DAILY [facility] Last Admin: 02/05/18 10:11 Dose: 325 mg Furosemide (Lasix) 20 mg PO DAILY [facility] Last Admin: 02/03/18 09:54 Dose: 20 mg Glipizide (Glucotrol Xl) 2.5 mg PO DAILY [facility] Last Admin: 02/05/18 10:13 Dose: 2.5 mg Home Med (Hydrogen Peroxide [Peroxyl Dental Rinse]) 1 appl [facility] Hydroxyzine HCl (Atarax) 10 mg PO TID PRN PRN Reason: pruritis Last Admin: 02/05/18 10:10 Dose: 10 mg Piperacillin Sod/Tazobactam (Sod 2.25 gm/ Sodium Chloride) 100 mls @ 100 mls/ hr IVPB Q6 [facility] PRN Reason: Protocol Last Admin: 02/05/18 10:39 Dose: 100 mls/hr Sodium Chloride (Sodium Chloride 0.9%) 1,000 mls @ 40 mls/hr IV .Q24H [facility] Stop: 02/05/18 12:51 Last Admin: 02/04/18 14:00 Dose: 40 mls/hr Heparin Sodium/Dextrose (Heparin 25,000 Units/250ml In D5w) 25,000 units in 250 mls @ 12 mls/hr IV .[id number] [facility] PRN Reason: Protocol Last Admin: 02/04/18 15:15 Dose: Not Given Daptomycin 400 mg/ Sodium (Chloride) 100 mls @ 100 mls/hr IV DAILY [facility] Stop: 02/10/18 10:01 Lactobacillus Acidophilus (Bacid Acidophilus) 1 cap PO BID [facility] Last Admin: 02/05/18 10:14 Dose: 1 cap Magnesium Hydroxide (Milk Of Magnesia) 30 ml PO HS PRN PRN Reason: Constipation Last Admin: 02/02/18 21:33 Dose: 30 ml Memantine (Namenda) 5 mg PO BID [facility] Last Admin: 02/05/18 10:11 Dose: 5 mg Methimazole (Tapazole) 5 mg PO DAILY [facility] Last Admin: 02/05/18 10:10 Dose: 5 mg Miconazole Nitrate (Critic-Aid Clear Af) 1 applic TOP BID [facility] Last Admin: 02/05/18 10:15 Dose: 1 applic Petrolatum (Desitin Maximum Strength Topical 40% Oint) 1 applic TOP QSHIFT [facility] Last Admin: 02/04/18 09:36 Dose: 1 applic Risperidone (Risperidone Odt 0.25mg) 0.25 mg PO Q12 PRN PRN Reason: Psychosis Last Admin: 02/05/18 10:13 Dose: 0.25 mg - Labs Labs: 02/05/18 06:20 02/05/18 06:20 PT 15.1 Seconds (9.8-13.1) H 02/05/18 06:20 INR 1.4 (0.9-1.2) H 02/05/18 06:20 APTT 43.0 Seconds (25.6-37.1) H D 02/05/18 06:20 - Constitutional Appears: Non-toxic, Chronically Ill - Head Exam Head Exam: NORMOCEPHALIC - Eye Exam Eye Exam: PERRL - ENT Exam ENT Exam: Mucous Membranes Dry - Neck Exam Neck Exam: absent: Lymphadenopathy - Respiratory Exam Respiratory Exam: Decreased Breath Sounds - Cardiovascular Exam Cardiovascular Exam: REGULAR RHYTHM - GI/Abdominal Exam GI & Abdominal Exam: Distended - Rectal Exam Rectal Exam: Deferred - Exam Exam: NORMAL INSPECTION - Extremities Exam Extremities Exam: absent: Pedal Edema - Back Exam Back Exam: absent: CVA tenderness (L), CVA tenderness (R) - Neurological Exam Neurological Exam: Alert, Awake Assessment and Plan (1) Cellulitis, leg Status: Acute (2) PVD (peripheral vascular disease) Status: Acute (3) Sepsis Status: Acute - Assessment and Plan (Free Text) Assessment: iv rx adjusted grave prognosis
[2018-02-05 12:55] LABS: INR 1.5 (0.9-1.2); PROTHROMBIN TIME 16.3 Seconds (9.8-13.1)
[2018-02-05 12:58] LABS: PARTIAL THROMBOPLASTIN TIME 166.9 Seconds (25.6-37.1)
[2018-02-05 15:18] LABS: INR 1.4 (0.9-1.2); PROTHROMBIN TIME 15.6 Seconds (9.8-13.1)
--- NOTE | 2018-02-05 15:40 | CP.PCM.PN ---
Subjective - Date & Time of Evaluation Date of Evaluation: 02/05/18 Time of Evaluation: 15:37 - Subjective Subjective: Patient feeling much better No nausea or vomiting Patient eating well. Complaining of pain in the lower extremity Objective - Vital Signs/Intake and Output Vital Signs (last 24 hours): Temp Pulse Resp BP Pulse Ox 97.4 F L 89 19 105/54 L 96 02/05/18 07:59 02/05/18 07:59 02/05/18 07:59 02/05/18 07:59 02/05/18 07:59 - Medications Medications: Current Medications Acetaminophen (Tylenol 325mg Tab) 650 mg PO Q4 PRN PRN Reason: Pain, Mild (1-3) Acetaminophen (Tylenol 325mg Tab) 650 mg PO Q4 PRN PRN Reason: TEMP >100 Bacitracin (Bacitracin Oint) 1 applic TOP DAILY [facility] Last Admin: 02/05/18 10:15 Dose: 1 applic Bisacodyl (Dulcolax) 10 mg [place] DAILY PRN PRN Reason: Constipation Ciprofloxacin (Cipro) 250 mg PO Q12 [facility] PRN Reason: Protocol Last Admin: 02/05/18 10:12 Dose: 250 mg Clopidogrel Bisulfate (Plavix) 75 mg PO DAILY [facility] Last Admin: 02/05/18 10:10 Dose: 75 mg Docusate Sodium (Colace) 100 mg PO DAILY [facility] Last Admin: 02/05/18 10:12 Dose: 100 mg Escitalopram Oxalate (Lexapro) 5 mg PO HS [facility] Last Admin: 02/04/18 21:31 Dose: 5 mg Famotidine (Pepcid) 20 mg PO DAILY [facility] Last Admin: 02/05/18 10:14 Dose: 20 mg Ferrous Sulfate (Feosol) 325 mg PO DAILY [facility] Last Admin: 02/05/18 10:11 Dose: 325 mg Furosemide (Lasix) 20 mg PO DAILY [facility] Last Admin: 02/03/18 09:54 Dose: 20 mg Glipizide (Glucotrol Xl) 2.5 mg PO DAILY [facility] Last Admin: 02/05/18 10:13 Dose: 2.5 mg Home Med (Hydrogen Peroxide [Peroxyl Dental Rinse]) 1 appl TOP MOWEFR [facility] Hydroxyzine HCl (Atarax) 10 mg PO TID PRN PRN Reason: pruritis Last Admin: 02/05/18 10:10 Dose: 10 mg Daptomycin 400 mg/ Sodium (Chloride) 100 mls @ 100 mls/hr IV DAILY [facility] Stop: 02/10/18 10:01 Lactobacillus Acidophilus (Bacid Acidophilus) 1 cap PO BID [facility] Last Admin: 02/05/18 10:14 Dose: 1 cap Magnesium Hydroxide (Milk Of Magnesia) 30 ml PO HS PRN PRN Reason: Constipation Last Admin: 02/02/18 21:33 Dose: 30 ml Memantine (Namenda) 5 mg PO BID [facility] Last Admin: 02/05/18 10:11 Dose: 5 mg Methimazole (Tapazole) 5 mg PO DAILY [facility] Last Admin: 02/05/18 10:10 Dose: 5 mg Miconazole Nitrate (Critic-Aid Clear Af) 1 applic TOP BID [facility] Last Admin: 02/05/18 10:15 Dose: 1 applic Petrolatum (Desitin Maximum Strength Topical 40% Oint) 1 applic TOP QSHIFT [facility] Last Admin: 02/04/18 09:36 Dose: 1 applic Risperidone (Risperidone Odt 0.25mg) 0.25 mg PO Q12 PRN PRN Reason: Psychosis Last Admin: 02/05/18 10:13 Dose: 0.25 mg - Labs Labs: 02/05/18 06:20 02/05/18 06:20 PT 15.6 Seconds (9.8-13.1) H 02/05/18 14:43 INR 1.4 (0.9-1.2) H 02/05/18 14:43 APTT 111.7 Seconds (25.6-37.1) H* D 02/05/18 14:43 - Constitutional Appears: No Acute Distress - Eye Exam Eye Exam: Conjunctival injection - ENT Exam ENT Exam: absent: Mucous Membranes Moist - Neck Exam Neck Exam: absent: Lymphadenopathy - Respiratory Exam Respiratory Exam: NORMAL BREATHING PATTERN. absent: Chest Wall Tenderness, Rhonchi, Wheezes - Cardiovascular Exam Cardiovascular Exam: absent: Gallop, JVD, Rubs - Extremities Exam Extremities Exam: absent: Calf Tenderness - Back Exam Back Exam: absent: CVA tenderness (L), CVA tenderness (R) - Neurological Exam Neurological Exam: Alert - Psychiatric Exam Psychiatric exam: Normal Affect - Skin Skin Exam: absent: Cyanosis Assessment and Plan (1) ABBEY (acute kidney injury) Assessment & Plan: Acute kidney injury. Recovering serum creatinine came down 1.2 with the latest. Anemia probably not related to chronic kidney disease. Workup for the anemia needed no need to give EPO for this kind of for anemia. leg cellulitis patient receiving antibiotics. Continue monitoring Status: Acute (2) Cellulitis, leg Status: Acute (3) PVD (peripheral vascular disease) Status: Acute (4) Anemia Status: Acute
[2018-02-05 19:05] LABS: PARTIAL THROMBOPLASTIN TIME 111.7 Seconds (25.6-37.1)
--- NOTE | 2018-02-05 19:39 | CP.PCM.PN ---
Subjective - Date & Time of Evaluation Date of Evaluation: 02/05/18 Time of Evaluation: 22:22 - Subjective Subjective: Creat 1.2 Objective - Vital Signs/Intake and Output Vital Signs (last 24 hours): Temp Pulse Resp BP Pulse Ox 97.9 F 85 20 127/83 97 02/05/18 16:21 02/05/18 16:21 02/05/18 16:21 02/05/18 16:21 02/05/18 16:21 - Medications Medications: Current Medications Acetaminophen (Tylenol 325mg Tab) 650 mg PO Q4 PRN PRN Reason: Pain, Mild (1-3) Acetaminophen (Tylenol 325mg Tab) 650 mg PO Q4 PRN PRN Reason: TEMP >100 Bacitracin (Bacitracin Oint) 1 applic TOP DAILY [facility] Last Admin: 02/05/18 10:15 Dose: 1 applic Bisacodyl (Dulcolax) 10 mg [place] DAILY PRN PRN Reason: Constipation Ciprofloxacin (Cipro) 250 mg PO Q12 [facility] PRN Reason: Protocol Last Admin: 02/05/18 10:12 Dose: 250 mg Clopidogrel Bisulfate (Plavix) 75 mg PO DAILY [facility] Last Admin: 02/05/18 10:10 Dose: 75 mg Docusate Sodium (Colace) 100 mg PO DAILY [facility] Last Admin: 02/05/18 10:12 Dose: 100 mg Escitalopram Oxalate (Lexapro) 5 mg PO HS [facility] Last Admin: 02/04/18 21:31 Dose: 5 mg Famotidine (Pepcid) 20 mg PO DAILY [facility] Last Admin: 02/05/18 10:14 Dose: 20 mg Ferrous Sulfate (Feosol) 325 mg PO DAILY [facility] Last Admin: 02/05/18 10:11 Dose: 325 mg Furosemide (Lasix) 20 mg PO DAILY [facility] Last Admin: 02/03/18 09:54 Dose: 20 mg Glipizide (Glucotrol Xl) 2.5 mg PO DAILY [facility] Last Admin: 02/05/18 10:13 Dose: 2.5 mg Home Med (Hydrogen Peroxide [Peroxyl Dental Rinse]) 1 appl TOP MOWEFR [facility] Hydroxyzine HCl (Atarax) 10 mg PO TID PRN PRN Reason: pruritis Last Admin: 02/05/18 10:10 Dose: 10 mg Daptomycin 400 mg/ Sodium (Chloride) 100 mls @ 100 mls/hr IV DAILY [facility] Stop: 02/10/18 10:01 Last Admin: 02/05/18 15:48 Dose: 100 mls/hr Lactobacillus Acidophilus (Bacid Acidophilus) 1 cap PO BID [facility] Last Admin: 02/05/18 10:14 Dose: 1 cap Magnesium Hydroxide (Milk Of Magnesia) 30 ml PO HS PRN PRN Reason: Constipation Last Admin: 02/02/18 21:33 Dose: 30 ml Memantine (Namenda) 5 mg PO BID [facility] Last Admin: 02/05/18 10:11 Dose: 5 mg Methimazole (Tapazole) 5 mg PO DAILY [facility] Last Admin: 02/05/18 10:10 Dose: 5 mg Miconazole Nitrate (Critic-Aid Clear Af) 1 applic TOP BID [facility] Last Admin: 02/05/18 10:15 Dose: 1 applic Petrolatum (Desitin Maximum Strength Topical 40% Oint) 1 applic TOP QSHIFT [facility] Last Admin: 02/04/18 09:36 Dose: 1 applic Risperidone (Risperidone Odt 0.25mg) 0.25 mg PO Q12 PRN PRN Reason: Psychosis Last Admin: 02/05/18 10:13 Dose: 0.25 mg - Labs Labs: 02/05/18 06:20 02/05/18 06:20 PT 15.6 Seconds (9.8-13.1) H 02/05/18 14:43 INR 1.4 (0.9-1.2) H 02/05/18 14:43 APTT 111.7 Seconds (25.6-37.1) H* D 02/05/18 14:43 - Respiratory Exam Respiratory Exam: NORMAL BREATHING PATTERN - Cardiovascular Exam Cardiovascular Exam: REGULAR RHYTHM - GI/Abdominal Exam GI & Abdominal Exam: Normal Bowel Sounds Assessment and Plan - Assessment and Plan (Free Text) Assessment: Low ext edema cellulitis Significant Aterial occlusive dx Wound cs Serratia Leg elevation IV ABX Zosyn/ Vanco ID Podiatry Surgery Physiatry Vascular Angiogram low ext ABBEY/ CKD creat improved Nephrology IVF Psychiatric dx?? Ultram?? Adj disorder with depression Psychiatry SSRI Resperidol CHF Diastolic CAD stress thalium scarring ischemia?? cardiac cath refused?? Cardiology Hx COPD L Pleural effusion Pulmonary Hx Anemia ASA d/c as outpt due to dec Hbg NIDDM Thyroid dx Endo
[2018-02-05 21:58] LABS: HEMOGLOBIN 10.2 g/dL (12.0-16.0); MEAN CORPUSCULAR HEMOGLOBIN 24.9 pg (27.0-31.0); MEAN CORPUSCULAR HGB CONC 31.9 g/dL (33.0-37.0); RBC 4.1 Mil/uL (3.80-5.20); RED CELL DISTRIBUTION WIDTH 20.1 % (11.5-14.5); WHITE BLOOD COUNT 24.8 K/uL (4.8-10.8)
[2018-02-05 22:17] LABS: INR 1.3 (0.9-1.2); PROTHROMBIN TIME 14.2 Seconds (9.8-13.1)
[2018-02-06 06:46] LABS: HEMOGLOBIN 10.4 g/dL (12.0-16.0); MEAN CELL VOLUME 78.7 fl (81.0-99.0); MEAN CORPUSCULAR HEMOGLOBIN 24.7 pg (27.0-31.0); MEAN CORPUSCULAR HGB CONC 31.4 g/dL (33.0-37.0); RBC 4.21 Mil/uL (3.80-5.20); RED CELL DISTRIBUTION WIDTH 20.3 % (11.5-14.5); WHITE BLOOD COUNT 24.2 K/uL (4.8-10.8)
[2018-02-06 07:28] LABS: INR 1.2 (0.9-1.2); PARTIAL THROMBOPLASTIN TIME 26.5 Seconds (25.6-37.1); PROTHROMBIN TIME 13.7 Seconds (9.8-13.1)
[2018-02-06 07:33] LABS: BLOOD UREA NITROGEN 37 mg/dl (7-17); CALCIUM 9.1 mg/dL (8.4-10.2); GFR AFRICAN-AMERICAN > 60; GFR NON-AFRICAN AMERICAN 53
--- NOTE | 2018-02-06 09:18 | CP.PCM.PN ---
Subjective - Date & Time of Evaluation Date of Evaluation: 02/06/18 Time of Evaluation: 09:17 - Subjective Subjective: WBC count of 22K severe LE discomfort CTA shows high grade inflow disease Objective - Vital Signs/Intake and Output Vital Signs (last 24 hours): Temp Pulse Resp BP Pulse Ox 97.8 F 91 H 18 123/68 95 02/06/18 07:46 02/06/18 07:46 02/06/18 07:46 02/06/18 07:46 02/06/18 07:46 - Medications Medications: Current Medications Acetaminophen (Tylenol 325mg Tab) 650 mg PO Q4 PRN PRN Reason: Pain, Mild (1-3) Acetaminophen (Tylenol 325mg Tab) 650 mg PO Q4 PRN PRN Reason: TEMP >100 Bacitracin (Bacitracin Oint) 1 applic TOP DAILY [facility] Last Admin: 02/05/18 10:15 Dose: 1 applic Bisacodyl (Dulcolax) 10 mg [place] DAILY PRN PRN Reason: Constipation Ciprofloxacin (Cipro) 250 mg PO Q12 [facility] PRN Reason: Protocol Last Admin: 02/05/18 21:53 Dose: 250 mg Clopidogrel Bisulfate (Plavix) 75 mg PO DAILY [facility] Last Admin: 02/05/18 10:10 Dose: 75 mg Docusate Sodium (Colace) 100 mg PO DAILY [facility] Last Admin: 02/05/18 10:12 Dose: 100 mg Escitalopram Oxalate (Lexapro) 5 mg PO HS [facility] Last Admin: 02/05/18 22:19 Dose: 5 mg Famotidine (Pepcid) 20 mg PO DAILY [facility] Last Admin: 02/05/18 10:14 Dose: 20 mg Ferrous Sulfate (Feosol) 325 mg PO DAILY [facility] Last Admin: 02/05/18 10:11 Dose: 325 mg Furosemide (Lasix) 20 mg PO DAILY [facility] Last Admin: 02/03/18 09:54 Dose: 20 mg Glipizide (Glucotrol Xl) 2.5 mg PO DAILY [facility] Last Admin: 02/05/18 10:13 Dose: 2.5 mg Home Med (Hydrogen Peroxide [Peroxyl Dental Rinse]) 1 appl TOP MOWEFR [facility] Hydroxyzine HCl (Atarax) 10 mg PO TID PRN PRN Reason: pruritis Last Admin: 02/05/18 10:10 Dose: 10 mg Daptomycin 400 mg/ Sodium (Chloride) 100 mls @ 100 mls/hr IV DAILY [facility] Stop: 02/10/18 10:01 Last Admin: 02/05/18 15:48 Dose: 100 mls/hr Lactobacillus Acidophilus (Bacid Acidophilus) 1 cap PO BID [facility] Last Admin: 02/05/18 10:14 Dose: 1 cap Magnesium Hydroxide (Milk Of Magnesia) 30 ml PO HS PRN PRN Reason: Constipation Last Admin: 02/02/18 21:33 Dose: 30 ml Memantine (Namenda) 5 mg PO BID [facility] Last Admin: 02/05/18 10:11 Dose: 5 mg Methimazole (Tapazole) 5 mg PO DAILY [facility] Last Admin: 02/05/18 10:10 Dose: 5 mg Miconazole Nitrate (Critic-Aid Clear Af) 1 applic TOP BID [facility] Last Admin: 02/05/18 10:15 Dose: 1 applic Petrolatum (Desitin Maximum Strength Topical 40% Oint) 1 applic TOP QSHIFT [facility] Last Admin: 02/04/18 09:36 Dose: 1 applic Risperidone (Risperidone Odt 0.25mg) 0.25 mg PO Q12 PRN PRN Reason: Psychosis Last Admin: 02/05/18 10:13 Dose: 0.25 mg - Labs Labs: 02/06/18 06:00 02/06/18 06:00 PT 13.7 Seconds (9.8-13.1) H 02/06/18 06:00 INR 1.2 (0.9-1.2) 02/06/18 06:00 APTT 26.5 Seconds (25.6-37.1) 02/06/18 06:00 - Constitutional Appears: Well - Head Exam Head Exam: ATRAUMATIC, NORMAL INSPECTION, NORMOCEPHALIC - Eye Exam Eye Exam: EOMI, Normal appearance, PERRL Pupil Exam: NORMAL ACCOMODATION, PERRL - ENT Exam ENT Exam: Mucous Membranes Moist, Normal Exam - Neck Exam Neck Exam: Full ROM, Normal Inspection. absent: Lymphadenopathy - Respiratory Exam Respiratory Exam: Clear to Ausculation Bilateral, NORMAL BREATHING PATTERN - Cardiovascular Exam Cardiovascular Exam: REGULAR RHYTHM, +S1, +S2. absent: Murmur - GI/Abdominal Exam GI & Abdominal Exam: Soft, Normal Bowel Sounds. absent: Tenderness - Extremities Exam Extremities Exam: Full ROM, Normal Inspection, Tenderness. absent: Joint Swelling, Pedal Edema - Back Exam Back Exam: NORMAL INSPECTION - Neurological Exam Neurological Exam: Alert, Awake, CN II-XII Intact, Oriented x3 - Psychiatric Exam Psychiatric exam: Normal Affect, Normal Mood - Skin Skin Exam: Dry, Intact, Normal Color, Warm Assessment and Plan (1) PVD (peripheral vascular disease) Status: Acute (2) ABBEY (acute kidney injury) Status: Acute (3) Edema of both lower extremities due to peripheral venous insufficiency Status: Chronic (4) 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
[2018-02-06] MEDS: Bacitracin OINT 15GM TOP SCH (09:48)
[2018-02-06] MEDS: Lactobacillus Acidophilus 500 MU Cap PO SCH ×2 (09:48→16:48)
[2018-02-06] MEDS: methIMAzole 5 MG TAB PO SCH (09:48)
[2018-02-06] MEDS: GlipiZIDE 2.5 mg SR Tab PO SCH (09:51)
--- NOTE | 2018-02-06 10:05 | CP.PCM.PN ---
Subjective - Date & Time of Evaluation Date of Evaluation: 02/06/18 Time of Evaluation: 10:03 - Subjective Subjective: patient appeared to be comfortable. Vital signs stable No nausea or vomiting Objective - Vital Signs/Intake and Output Vital Signs (last 24 hours): Temp Pulse Resp BP Pulse Ox 97.8 F 91 H 18 123/68 95 02/06/18 07:46 02/06/18 07:46 02/06/18 07:46 02/06/18 07:46 02/06/18 07:46 - Medications Medications: Current Medications Acetaminophen (Tylenol 325mg Tab) 650 mg PO Q4 PRN PRN Reason: Pain, Mild (1-3) Acetaminophen (Tylenol 325mg Tab) 650 mg PO Q4 PRN PRN Reason: TEMP >100 Bacitracin (Bacitracin Oint) 1 applic TOP DAILY [facility] Last Admin: 02/06/18 09:48 Dose: 1 applic Bisacodyl (Dulcolax) [address] DAILY PRN PRN Reason: Constipation Ciprofloxacin (Cipro) 250 mg PO Q12 [facility] PRN Reason: Protocol Last Admin: 02/06/18 09:49 Dose: 250 mg Clopidogrel Bisulfate (Plavix) 75 mg PO DAILY [facility] Last Admin: 02/06/18 09:48 Dose: 75 mg Docusate Sodium (Colace) 100 mg PO DAILY [facility] Last Admin: 02/06/18 09:49 Dose: 100 mg Escitalopram Oxalate (Lexapro) 5 mg PO HS [facility] Last Admin: 02/05/18 22:19 Dose: 5 mg Famotidine (Pepcid) 20 mg PO DAILY [facility] Last Admin: 02/06/18 09:48 Dose: 20 mg Ferrous Sulfate (Feosol) 325 mg PO DAILY [facility] Last Admin: 02/06/18 09:48 Dose: 325 mg Furosemide (Lasix) 20 mg PO DAILY [facility] Last Admin: 02/03/18 09:54 Dose: 20 mg Glipizide (Glucotrol Xl) 2.5 mg PO DAILY [facility] Last Admin: 02/06/18 09:51 Dose: 2.5 mg Home Med (Hydrogen Peroxide [Peroxyl Dental Rinse]) 1 appl TOP MOWEFR [facility] Hydroxyzine HCl (Atarax) 10 mg PO TID PRN PRN Reason: pruritis Last Admin: 02/06/18 09:48 Dose: 10 mg Daptomycin 400 mg/ Sodium (Chloride) 100 mls @ 100 mls/hr IV DAILY [facility] Stop: 02/10/18 10:01 Last Admin: 02/05/18 15:48 Dose: 100 mls/hr Piperacillin Sod/Tazobactam (Sod 2.25 gm/ Sodium Chloride) 100 mls @ 100 mls/ hr IVPB Q6 [facility] PRN Reason: Protocol Lactobacillus Acidophilus (Bacid Acidophilus) 1 cap PO BID [facility] Last Admin: 02/06/18 09:48 Dose: 1 cap Magnesium Hydroxide (Milk Of Magnesia) 30 ml PO HS PRN PRN Reason: Constipation Last Admin: 02/02/18 21:33 Dose: 30 ml Memantine (Namenda) 5 mg PO BID [facility] Last Admin: 02/06/18 09:49 Dose: 5 mg Methimazole (Tapazole) 5 mg PO DAILY [facility] Last Admin: 02/06/18 09:48 Dose: 5 mg Miconazole Nitrate (Critic-Aid Clear Af) 1 applic TOP BID [facility] Last Admin: 02/05/18 10:15 Dose: 1 applic Petrolatum (Desitin Maximum Strength Topical 40% Oint) 1 applic TOP QSHIFT [facility] Last Admin: 02/04/18 09:36 Dose: 1 applic Risperidone (Risperidone Odt 0.25mg) 0.25 mg PO Q12 PRN PRN Reason: Psychosis Last Admin: 02/05/18 10:13 Dose: 0.25 mg - Labs Labs: 02/06/18 06:00 02/06/18 06:00 PT 13.7 Seconds (9.8-13.1) H 02/06/18 06:00 INR 1.2 (0.9-1.2) 02/06/18 06:00 APTT 26.5 Seconds (25.6-37.1) 02/06/18 06:00 - Constitutional Appears: No Acute Distress - Neck Exam Neck Exam: absent: Lymphadenopathy - Respiratory Exam Respiratory Exam: absent: Chest Wall Tenderness - Cardiovascular Exam Cardiovascular Exam: absent: Gallop, JVD, Rubs - GI/Abdominal Exam GI & Abdominal Exam: Soft, Normal Bowel Sounds - Extremities Exam Extremities Exam: absent: Calf Tenderness - Back Exam Back Exam: absent: CVA tenderness (L), CVA tenderness (R) - Neurological Exam Neurological Exam: Alert - Skin Skin Exam: absent: Cyanosis Assessment and Plan (1) ABBEY (acute kidney injury) Assessment & Plan: acute kidney injury appears to be recovering. Serum creatinine came down to 1.0. Hyponatremia corrected serum sodium 140 Patient now have hypokalemia serum potassium 3.1 she will need potassium chloride supplement. Leukocytosis is getting worse . Up to 24,000 Antibiotics as per infectious disease management patient has bilateral leg cellulitis. Status: Acute (2) Cellulitis, leg Status: Acute (3) PVD (peripheral vascular disease) Status: Acute (4) Anemia Status: Acute
--- NOTE | 2018-02-06 10:19 | CP.PCM.PN ---
Subjective - Date & Time of Evaluation Date of Evaluation: 02/06/18 Time of Evaluation: 10:04 - Subjective Subjective: Spoke with Dr Damon regarding the case and his thoughts about potential plan. Also spoke with the [employer] who is following her on the floor. She remains afebrile, but the WBC's have increased yesterday to 24, and remain there today as well. A chest x-ray done yesterday shows the retrocardiac density that has been present for some weeks now. Reviewing the initial CT ABD/PELVIS allows visualization of the lung bases and shows small bilateral pleural effusions with increased BV markings in the LLL, but no evidence of ongoing pneumonia. She has not been having cough or sputum production, and remains free of SOB. On exam there are diminished breath sounds in the LLL with a few medium rales and no wheezing If leukocytosis does not resolve, or another source of infection is not found, a CT chest will be needed. Objective - Vital Signs/Intake and Output Vital Signs (last 24 hours): Temp Pulse Resp BP Pulse Ox 97.8 F 91 H 18 123/68 95 02/06/18 07:46 02/06/18 07:46 02/06/18 07:46 02/06/18 07:46 02/06/18 07:46 - Medications Medications: Current Medications Acetaminophen (Tylenol 325mg Tab) 650 mg PO Q4 PRN PRN Reason: Pain, Mild (1-3) Acetaminophen (Tylenol 325mg Tab) 650 mg PO Q4 PRN PRN Reason: TEMP >100 Bacitracin (Bacitracin Oint) 1 applic TOP DAILY [facility] Last Admin: 02/06/18 09:48 Dose: 1 applic Bisacodyl (Dulcolax) 10 mg [place] DAILY PRN PRN Reason: Constipation Ciprofloxacin (Cipro) 250 mg PO Q12 [facility] PRN Reason: Protocol Last Admin: 02/06/18 09:49 Dose: 250 mg Clopidogrel Bisulfate (Plavix) 75 mg PO DAILY [facility] Last Admin: 02/06/18 09:48 Dose: 75 mg Docusate Sodium (Colace) 100 mg PO DAILY [facility] Last Admin: 02/06/18 09:49 Dose: 100 mg Escitalopram Oxalate (Lexapro) 5 mg PO HS [facility] Last Admin: 02/05/18 22:19 Dose: 5 mg Famotidine (Pepcid) 20 mg PO DAILY [facility] Last Admin: 02/06/18 09:48 Dose: 20 mg Ferrous Sulfate (Feosol) 325 mg PO DAILY [facility] Last Admin: 02/06/18 09:48 Dose: 325 mg Furosemide (Lasix) 20 mg PO DAILY [facility] Last Admin: 02/03/18 09:54 Dose: 20 mg Glipizide (Glucotrol Xl) 2.5 mg PO DAILY [facility] Last Admin: 02/06/18 09:51 Dose: 2.5 mg Home Med (Hydrogen Peroxide [Peroxyl Dental Rinse]) 1 appl TOP MOWEFR [facility] Hydroxyzine HCl (Atarax) 10 mg PO TID PRN PRN Reason: pruritis Last Admin: 02/06/18 09:48 Dose: 10 mg Daptomycin 400 mg/ Sodium (Chloride) 100 mls @ 100 mls/hr IV DAILY [facility] Stop: 02/10/18 10:01 Last Admin: 02/05/18 15:48 Dose: 100 mls/hr Piperacillin Sod/Tazobactam (Sod 2.25 gm/ Sodium Chloride) 100 mls @ 100 mls/ hr IVPB Q6 [facility] PRN Reason: Protocol Lactobacillus Acidophilus (Bacid Acidophilus) 1 cap PO BID [facility] Last Admin: 02/06/18 09:48 Dose: 1 cap Magnesium Hydroxide (Milk Of Magnesia) 30 ml PO HS PRN PRN Reason: Constipation Last Admin: 02/02/18 21:33 Dose: 30 ml Memantine (Namenda) 5 mg PO BID [facility] Last Admin: 02/06/18 09:49 Dose: 5 mg Methimazole (Tapazole) 5 mg PO DAILY [facility] Last Admin: 02/06/18 09:48 Dose: 5 mg Miconazole Nitrate (Critic-Aid Clear Af) 1 applic TOP BID [facility] Last Admin: 02/05/18 10:15 Dose: 1 applic Petrolatum (Desitin Maximum Strength Topical 40% Oint) 1 applic TOP QSHIFT [facility] Last Admin: 02/04/18 09:36 Dose: 1 applic Risperidone (Risperidone Odt 0.25mg) 0.25 mg PO Q12 PRN PRN Reason: Psychosis Last Admin: 02/05/18 10:13 Dose: 0.25 mg - Labs Labs: 02/06/18 06:00 02/06/18 06:00 PT 13.7 Seconds (9.8-13.1) H 02/06/18 06:00 INR 1.2 (0.9-1.2) 02/06/18 06:00 APTT 26.5 Seconds (25.6-37.1) 02/06/18 06:00
[2018-02-06] MEDS: Critic-Aid Clear AF TOP SCH ×3 (10:29→18:08)
[2018-02-06] MEDS ORDERED: Potassium Chloride 20 mEq ER Tab PO ONE (10:30)
--- NOTE | 2018-02-06 11:07 | CP.PCM.PN ---
Subjective - Date & Time of Evaluation Date of Evaluation: 02/06/18 Time of Evaluation: 10:30 - Subjective Subjective: NO CHEST PAIN HAS SOME SOB Objective - Vital Signs/Intake and Output Vital Signs (last 24 hours): Temp Pulse Resp BP Pulse Ox 97.8 F 91 H 18 123/68 95 02/06/18 07:46 02/06/18 07:46 02/06/18 07:46 02/06/18 07:46 02/06/18 07:46 - Medications Medications: Current Medications Acetaminophen (Tylenol 325mg Tab) 650 mg PO Q4 PRN PRN Reason: Pain, Mild (1-3) Acetaminophen (Tylenol 325mg Tab) 650 mg PO Q4 PRN PRN Reason: TEMP >100 Bacitracin (Bacitracin Oint) 1 applic TOP DAILY [facility] Last Admin: 02/06/18 09:48 Dose: 1 applic Bisacodyl (Dulcolax) 10 mg [place] DAILY PRN PRN Reason: Constipation Ciprofloxacin (Cipro) 250 mg PO Q12 [facility] PRN Reason: Protocol Last Admin: 02/06/18 09:49 Dose: 250 mg Clopidogrel Bisulfate (Plavix) 75 mg PO DAILY [facility] Last Admin: 02/06/18 09:48 Dose: 75 mg Docusate Sodium (Colace) 100 mg PO DAILY [facility] Last Admin: 02/06/18 09:49 Dose: 100 mg Escitalopram Oxalate (Lexapro) 5 mg PO HS [facility] Last Admin: 02/05/18 22:19 Dose: 5 mg Famotidine (Pepcid) 20 mg PO DAILY [facility] Last Admin: 02/06/18 09:48 Dose: 20 mg Ferrous Sulfate (Feosol) 325 mg PO DAILY [facility] Last Admin: 02/06/18 09:48 Dose: 325 mg Furosemide (Lasix) 20 mg PO DAILY [facility] Last Admin: 02/03/18 09:54 Dose: 20 mg Glipizide (Glucotrol Xl) 2.5 mg PO DAILY [facility] Last Admin: 02/06/18 09:51 Dose: 2.5 mg Home Med (Hydrogen Peroxide [Peroxyl Dental Rinse]) 1 appl TOP MOWEFR [facility] Hydroxyzine HCl (Atarax) 10 mg PO TID PRN PRN Reason: pruritis Last Admin: 02/06/18 09:48 Dose: 10 mg Daptomycin 400 mg/ Sodium (Chloride) 100 mls @ 100 mls/hr IV DAILY [facility] Stop: 02/10/18 10:01 Last Admin: 02/05/18 15:48 Dose: 100 mls/hr Piperacillin Sod/Tazobactam (Sod 2.25 gm/ Sodium Chloride) 100 mls @ 100 mls/ hr IVPB Q6 [facility] PRN Reason: Protocol Lactobacillus Acidophilus (Bacid Acidophilus) 1 cap PO BID [facility] Last Admin: 02/06/18 09:48 Dose: 1 cap Magnesium Hydroxide (Milk Of Magnesia) 30 ml PO HS PRN PRN Reason: Constipation Last Admin: 02/02/18 21:33 Dose: 30 ml Memantine (Namenda) 5 mg PO BID [facility] Last Admin: 02/06/18 09:49 Dose: 5 mg Methimazole (Tapazole) 5 mg PO DAILY [facility] Last Admin: 02/06/18 09:48 Dose: 5 mg Miconazole Nitrate (Critic-Aid Clear Af) 1 applic TOP BID [facility] Last Admin: 02/06/18 10:30 Dose: 1 applic Petrolatum (Desitin Maximum Strength Topical 40% Oint) 1 applic TOP QSHIFT [facility] Last Admin: 02/04/18 09:36 Dose: 1 applic Risperidone (Risperidone Odt 0.25mg) 0.25 mg PO Q12 PRN PRN Reason: Psychosis Last Admin: 02/05/18 10:13 Dose: 0.25 mg - Labs Labs: 02/06/18 06:00 02/06/18 06:00 PT 13.7 Seconds (9.8-13.1) H 02/06/18 06:00 INR 1.2 (0.9-1.2) 02/06/18 06:00 APTT 26.5 Seconds (25.6-37.1) 02/06/18 06:00 - Respiratory Exam Respiratory Exam: Decreased Breath Sounds - Cardiovascular Exam Cardiovascular Exam: REGULAR RHYTHM, +S1, +S2 - Extremities Exam Additional comments: BILAT LEG ULCERS ARE IMPROVING - Additional Findings Additional findings: H/H 03/18 YESTERDAY AND PATIENT RECEIVED 2U RBCS H/G TODAY WBC 24KTODAY Assessment and Plan - Assessment and Plan (Free Text) Assessment: CAD HYPERTENSION SEVERE PAD COPD Plan: CONTINUE METOPROLOL AND CLOPIDOGREL DR PINA WILL HOLD OFF ON INTERVENTION DUE TO HIGH WBC
--- NOTE | 2018-02-06 11:58 | CP.PCM.PN ---
Subjective - Date & Time of Evaluation Date of Evaluation: 02/06/18 Time of Evaluation: 08:30 - Subjective Subjective: Podiatry Progress Note - Dr. Briseno 77 year old female seen and evaluated for bilateral lower extremity ulcerations with cellulitis. Patient is seen resting in bed, appeared less tired. More talkative today. Expresses pain with dressing change. Patient reports same pain. Denies F/C/N/V/CP, reports mild SOB Objective - Vital Signs/Intake and Output Vital Signs (last 24 hours): Temp Pulse Resp BP Pulse Ox 97.8 F 91 H 18 123/68 95 02/06/18 09:00 02/06/18 09:00 02/06/18 09:00 02/06/18 09:00 02/06/18 09:00 - Medications Medications: Current Medications Acetaminophen (Tylenol 325mg Tab) 650 mg PO Q4 PRN PRN Reason: Pain, Mild (1-3) Acetaminophen (Tylenol 325mg Tab) 650 mg PO Q4 PRN PRN Reason: TEMP >100 Bacitracin (Bacitracin Oint) 1 applic TOP DAILY [facility] Last Admin: 02/06/18 09:48 Dose: 1 applic Bisacodyl (Dulcolax) 10 mg [place] DAILY PRN PRN Reason: Constipation Ciprofloxacin (Cipro) 250 mg PO Q12 [facility] PRN Reason: Protocol Last Admin: 02/06/18 09:49 Dose: 250 mg Clopidogrel Bisulfate (Plavix) 75 mg PO DAILY [facility] Last Admin: 02/06/18 09:48 Dose: 75 mg Docusate Sodium (Colace) 100 mg PO DAILY [facility] Last Admin: 02/06/18 09:49 Dose: 100 mg Escitalopram Oxalate (Lexapro) 5 mg PO HS [facility] Last Admin: 02/05/18 22:19 Dose: 5 mg Famotidine (Pepcid) 20 mg PO DAILY [facility] Last Admin: 02/06/18 09:48 Dose: 20 mg Ferrous Sulfate (Feosol) 325 mg PO DAILY [facility] Last Admin: 02/06/18 09:48 Dose: 325 mg Furosemide (Lasix) 20 mg PO DAILY [facility] Last Admin: 02/03/18 09:54 Dose: 20 mg Glipizide (Glucotrol Xl) 2.5 mg PO DAILY [facility] Last Admin: 02/06/18 09:51 Dose: 2.5 mg Home Med (Hydrogen Peroxide [Peroxyl Dental Rinse]) 1 appl TOP MOWEFR [facility] Hydroxyzine HCl (Atarax) 10 mg PO TID PRN PRN Reason: pruritis Last Admin: 02/06/18 09:48 Dose: 10 mg Daptomycin 400 mg/ Sodium (Chloride) 100 mls @ 100 mls/hr IV DAILY [facility] Stop: 02/10/18 10:01 Last Admin: 02/05/18 15:48 Dose: 100 mls/hr Piperacillin Sod/Tazobactam (Sod 2.25 gm/ Sodium Chloride) 100 mls @ 100 mls/ hr IVPB Q6 [facility] PRN Reason: Protocol Last Admin: 02/06/18 11:36 Dose: 100 mls/hr Lactobacillus Acidophilus (Bacid Acidophilus) 1 cap PO BID [facility] Last Admin: 02/06/18 09:48 Dose: 1 cap Magnesium Hydroxide (Milk Of Magnesia) 30 ml PO HS PRN PRN Reason: Constipation Last Admin: 02/02/18 21:33 Dose: 30 ml Memantine (Namenda) 5 mg PO BID [facility] Last Admin: 02/06/18 09:49 Dose: 5 mg Methimazole (Tapazole) 5 mg PO DAILY [facility] Last Admin: 02/06/18 09:48 Dose: 5 mg Miconazole Nitrate (Critic-Aid Clear Af) 1 applic TOP BID [facility] Last Admin: 02/06/18 10:30 Dose: 1 applic Petrolatum (Desitin Maximum Strength Topical 40% Oint) 1 applic TOP QSHIFT [facility] Last Admin: 02/04/18 09:36 Dose: 1 applic Risperidone (Risperidone Odt 0.25mg) 0.25 mg PO Q12 PRN PRN Reason: Psychosis Last Admin: 02/05/18 10:13 Dose: 0.25 mg - Labs Labs: 02/06/18 06:00 02/06/18 06:00 PT 13.7 Seconds (9.8-13.1) H 02/06/18 06:00 INR 1.2 (0.9-1.2) 02/06/18 06:00 APTT 26.5 Seconds (25.6-37.1) 02/06/18 06:00 - Constitutional Appears: Non-toxic, No Acute Distress - Extremities Exam Extremities Exam: absent: Calf Tenderness Additional comments: Vasc: DP pulses and PT pulses nonpalpable, +2 pitting edema to bilateral LE, TG cool to cool, CFT delayed to digits Neuro: Epicritic and protective sensation grossly intact bilaterally Derm: Multiple chronic, 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 All blisters continue to weep serous fluid. Lanced blister is noted to lateral aspect of L plantar heel. Multiple ulcerations noted to the entire lower extremity with mixture of fibrotic/ necrotic wound base: Erythema to the entire LE R>L, malodorous, all sites (-) for purulence, fluctuance, probe to bone, tunneling or undermining. See below: RIGHT- Necrotic right heel eschar unstagable with no drainage noted. Ulceration noted measuring 7cm x 6cm x 0.1cm to posterior right leg mid calf with multiple vesicles noted to the medial aspect of the leg. Wound base has become more necrotic in nature, odorous, erythema has slightly improved, no tunneling, no probe to bone or tendon exposed. Ulcerations to dorsum of right digits 1, 2, 3, 4 with necrotic base, nail plate from nail bed of digits right 2, 3, 4 are absent, wound bed has become more necrotic LEFT- Lysed blister site with superficial ulceration measuring 4cm x 1.5cm x 0.1cm noted to anteromedial left leg. Lysed blister noted to the left heel. Granular in nature. Ulceration site noted to dorsum of L foot with wound base 100% fibrotic, measuring 4cm x 4.5cm x 0.2cm. Jennifer wound exhibits epithelization with healthy pink skin edges noted to dorsal left foot ulcer site. No malodor present today, no fluctuance, no probe to bone, no tunneling or no undermining. Ulcerations to distal and dorsum of the left digits 1 and 2 with fibrotic base and macerated periwound. Ortho: Sara's sign negative B/L. All ulceration sites are tender to palpation. No other gross musculoskeletal deformities noted - Neurological Exam Neurological Exam: Alert, Awake, Oriented x3 - Psychiatric Exam Psychiatric exam: Normal Affect, Normal Mood Assessment and Plan - Assessment and Plan (Free Text) Assessment: 77 year old non compliant female patient with lower extremity cellulitis with lower extremity non healing partial thickness and unstageable ulcerations 2/2 multiple etiologies including DM, PVD, and swelling- swelling and erythema has decreased, ulcerations to LE becoming more necrotic in nature Plan: Patient seen and evaluated at bedside Discussed plan with Dr. Briseno Afebrile, leukocytosis , increase WBC=24.2 Other possible source of elevated WBC? Erythema to the lower extremity diminished, swelling has diminished Wound culture of R leg (+) Serratia marcescens taken in the emergency room Cleansed LE ulceration with saline, dressed with Adaptic, ABD, DSD ID on board, continue IV abx per ID LE angiography reveals bilateral occluded SFA disease Will continue to follow patient while in house
--- NOTE | 2018-02-06 14:05 | RAD ---
HISTORY: f/u COMPARISON: 01/30/2018. FINDINGS: The right PICC line terminates at the cavoatrial junction. LUNGS: The lungs are well inflated. There is mild pulmonary venous congestion. PLEURA: Suspect small pleural effusions, no pneumothorax apparent. CARDIOVASCULAR: There is mild cardiomegaly and prominent central vasculature. OSSEOUS STRUCTURES: No significant abnormalities. VISUALIZED UPPER ABDOMEN: Normal. OTHER FINDINGS: None. IMPRESSION: No active pulmonary disease. Mild pulmonary venous congestion, mild cardiomegaly suspect small effusions.
--- NOTE | 2018-02-06 17:33 | CP.PCM.PN ---
Subjective - Date & Time of Evaluation Date of Evaluation: 02/06/18 Time of Evaluation: 22:22 - Subjective Subjective: WBC 24 K Creat 1.0 Objective - Vital Signs/Intake and Output Vital Signs (last 24 hours): Temp Pulse Resp BP Pulse Ox 97.3 F L 99 H 20 116/69 96 02/06/18 16:28 02/06/18 16:28 02/06/18 16:28 02/06/18 16:28 02/06/18 16:28 - Medications Medications: Current Medications Acetaminophen (Tylenol 325mg Tab) 650 mg PO Q4 PRN PRN Reason: Pain, Mild (1-3) Acetaminophen (Tylenol 325mg Tab) 650 mg PO Q4 PRN PRN Reason: TEMP >100 Bacitracin (Bacitracin Oint) 1 applic TOP DAILY [facility] Last Admin: 02/06/18 09:48 Dose: 1 applic Bisacodyl (Dulcolax) 10 mg [place] DAILY PRN PRN Reason: Constipation Ciprofloxacin (Cipro) 250 mg PO Q12 [facility] PRN Reason: Protocol Last Admin: 02/06/18 09:49 Dose: 250 mg Clopidogrel Bisulfate (Plavix) 75 mg PO DAILY [facility] Last Admin: 02/06/18 09:48 Dose: 75 mg Docusate Sodium (Colace) 100 mg PO DAILY [facility] Last Admin: 02/06/18 09:49 Dose: 100 mg Escitalopram Oxalate (Lexapro) 5 mg PO HS [facility] Last Admin: 02/05/18 22:19 Dose: 5 mg Famotidine (Pepcid) 20 mg PO DAILY [facility] Last Admin: 02/06/18 09:48 Dose: 20 mg Ferrous Sulfate (Feosol) 325 mg PO DAILY [facility] Last Admin: 02/06/18 09:48 Dose: 325 mg Furosemide (Lasix) 20 mg PO DAILY [facility] Last Admin: 02/03/18 09:54 Dose: 20 mg Glipizide (Glucotrol Xl) 2.5 mg PO DAILY [facility] Last Admin: 02/06/18 09:51 Dose: 2.5 mg Home Med (Hydrogen Peroxide [Peroxyl Dental Rinse]) 1 appl TOP MOWEFR [facility] Hydroxyzine HCl (Atarax) 10 mg PO TID PRN PRN Reason: pruritis Last Admin: 02/06/18 09:48 Dose: 10 mg Daptomycin 400 mg/ Sodium (Chloride) 100 mls @ 100 mls/hr IV DAILY [facility] Stop: 02/10/18 10:01 Last Admin: 02/06/18 12:50 Dose: 100 mls/hr Piperacillin Sod/Tazobactam (Sod 2.25 gm/ Sodium Chloride) 100 mls @ 100 mls/ hr IVPB Q6 [facility] PRN Reason: Protocol Last Admin: 02/06/18 16:49 Dose: 100 mls/hr Lactobacillus Acidophilus (Bacid Acidophilus) 1 cap PO BID [facility] Last Admin: 02/06/18 16:48 Dose: 1 cap Magnesium Hydroxide (Milk Of Magnesia) 30 ml PO HS PRN PRN Reason: Constipation Last Admin: 02/02/18 21:33 Dose: 30 ml Memantine (Namenda) 5 mg PO BID [facility] Last Admin: 02/06/18 16:49 Dose: 5 mg Methimazole (Tapazole) 5 mg PO DAILY [facility] Last Admin: 02/06/18 09:48 Dose: 5 mg Miconazole Nitrate (Critic-Aid Clear Af) 1 applic TOP BID [facility] Last Admin: 02/06/18 10:30 Dose: 1 applic Petrolatum (Desitin Maximum Strength Topical 40% Oint) 1 applic TOP QSHIFT [facility] Last Admin: 02/04/18 09:36 Dose: 1 applic Risperidone (Risperidone Odt 0.25mg) 0.25 mg PO Q12 PRN PRN Reason: Psychosis Last Admin: 02/05/18 10:13 Dose: 0.25 mg - Labs Labs: 02/06/18 06:00 02/06/18 06:00 PT 13.7 Seconds (9.8-13.1) H 02/06/18 06:00 INR 1.2 (0.9-1.2) 02/06/18 06:00 APTT 26.5 Seconds (25.6-37.1) 02/06/18 06:00 - Respiratory Exam Respiratory Exam: NORMAL BREATHING PATTERN - Cardiovascular Exam Cardiovascular Exam: REGULAR RHYTHM - GI/Abdominal Exam GI & Abdominal Exam: Normal Bowel Sounds Assessment and Plan - Assessment and Plan (Free Text) Assessment: Low ext edema cellulitis Significant Aterial occlusive dx Wound cs Serratia Leg elevation IV ABX Zosyn/ Vanco ID Podiatry Surgery Physiatry Vascular Angiogram low ext ABBEY/ CKD creat improved Nephrology IVF Psychiatric dx?? Ultram?? Adj disorder with depression Psychiatry SSRI Resperidol CHF Diastolic CAD stress thalium scarring ischemia?? cardiac cath refused?? Cardiology Hx COPD L Pleural effusion Pulmonary Hx Anemia ASA d/c as outpt due to dec Hbg NIDDM Thyroid dx Endo
--- NOTE | 2018-02-06 17:43 | CP.PCM.PN ---
Subjective - Date & Time of Evaluation Date of Evaluation: 02/06/18 Time of Evaluation: 16:00 - Subjective Subjective: Feeling better, more alert Objective - Vital Signs/Intake and Output Vital Signs (last 24 hours): Temp Pulse Resp BP Pulse Ox 97.3 F L 99 H 20 116/69 96 02/06/18 16:28 02/06/18 16:28 02/06/18 16:28 02/06/18 16:28 02/06/18 16:28 - Medications Medications: Current Medications Acetaminophen (Tylenol 325mg Tab) 650 mg PO Q4 PRN PRN Reason: Pain, Mild (1-3) Acetaminophen (Tylenol 325mg Tab) 650 mg PO Q4 PRN PRN Reason: TEMP >100 Bacitracin (Bacitracin Oint) 1 applic TOP DAILY [facility] Last Admin: 02/06/18 09:48 Dose: 1 applic Bisacodyl (Dulcolax) 10 mg [place] DAILY PRN PRN Reason: Constipation Ciprofloxacin (Cipro) 250 mg PO Q12 [facility] PRN Reason: Protocol Last Admin: 02/06/18 09:49 Dose: 250 mg Clopidogrel Bisulfate (Plavix) 75 mg PO DAILY [facility] Last Admin: 02/06/18 09:48 Dose: 75 mg Docusate Sodium (Colace) 100 mg PO DAILY [facility] Last Admin: 02/06/18 09:49 Dose: 100 mg Escitalopram Oxalate (Lexapro) 5 mg PO HS [facility] Last Admin: 02/05/18 22:19 Dose: 5 mg Famotidine (Pepcid) 20 mg PO DAILY [facility] Last Admin: 02/06/18 09:48 Dose: 20 mg Ferrous Sulfate (Feosol) 325 mg PO DAILY [facility] Last Admin: 02/06/18 09:48 Dose: 325 mg Furosemide (Lasix) 20 mg PO DAILY [facility] Last Admin: 02/03/18 09:54 Dose: 20 mg Glipizide (Glucotrol Xl) 2.5 mg PO DAILY [facility] Last Admin: 02/06/18 09:51 Dose: 2.5 mg Home Med (Hydrogen Peroxide [Peroxyl Dental Rinse]) 1 appl TOP MOWEFR [facility] Hydroxyzine HCl (Atarax) 10 mg PO TID PRN PRN Reason: pruritis Last Admin: 02/06/18 09:48 Dose: 10 mg Daptomycin 400 mg/ Sodium (Chloride) 100 mls @ 100 mls/hr IV DAILY [facility] Stop: 02/10/18 10:01 Last Admin: 02/06/18 12:50 Dose: 100 mls/hr Piperacillin Sod/Tazobactam (Sod 2.25 gm/ Sodium Chloride) 100 mls @ 100 mls/ hr IVPB Q6 [facility] PRN Reason: Protocol Last Admin: 02/06/18 16:49 Dose: 100 mls/hr Lactobacillus Acidophilus (Bacid Acidophilus) 1 cap PO BID [facility] Last Admin: 02/06/18 16:48 Dose: 1 cap Magnesium Hydroxide (Milk Of Magnesia) 30 ml PO HS PRN PRN Reason: Constipation Last Admin: 02/02/18 21:33 Dose: 30 ml Memantine (Namenda) 5 mg PO BID [facility] Last Admin: 02/06/18 16:49 Dose: 5 mg Methimazole (Tapazole) 5 mg PO DAILY [facility] Last Admin: 02/06/18 09:48 Dose: 5 mg Miconazole Nitrate (Critic-Aid Clear Af) 1 applic TOP BID [facility] Last Admin: 02/06/18 10:30 Dose: 1 applic Petrolatum (Desitin Maximum Strength Topical 40% Oint) 1 applic TOP QSHIFT [facility] Last Admin: 02/04/18 09:36 Dose: 1 applic Risperidone (Risperidone Odt 0.25mg) 0.25 mg PO Q12 PRN PRN Reason: Psychosis Last Admin: 02/05/18 10:13 Dose: 0.25 mg - Labs Labs: 02/06/18 06:00 02/06/18 06:00 PT 13.7 Seconds (9.8-13.1) H 02/06/18 06:00 INR 1.2 (0.9-1.2) 02/06/18 06:00 APTT 26.5 Seconds (25.6-37.1) 02/06/18 06:00 - Head Exam Head Exam: ATRAUMATIC - Eye Exam Eye Exam: Normal appearance - ENT Exam ENT Exam: Mucous Membranes Dry - Respiratory Exam Respiratory Exam: Decreased Breath Sounds - Cardiovascular Exam Cardiovascular Exam: +S1, +S2 - GI/Abdominal Exam GI & Abdominal Exam: Normal Bowel Sounds Assessment and Plan (1) Anemia Assessment & Plan: anemia of chronic disease and renal disease s/p Procrit and PRBC transfusion Status: Acute (2) Leukocytosis Assessment & Plan: rising, 24k on antibiotics Status: Acute
[2018-02-07 06:47] LABS: HEMOGLOBIN 9.8 g/dL (12.0-16.0); MEAN CORPUSCULAR HEMOGLOBIN 25.1 pg (27.0-31.0); MEAN CORPUSCULAR HGB CONC 31.7 g/dL (33.0-37.0); RBC 3.92 Mil/uL (3.80-5.20); RED CELL DISTRIBUTION WIDTH 20.1 % (11.5-14.5); WHITE BLOOD COUNT 18.7 K/uL (4.8-10.8)
[2018-02-07 07:27] LABS: BLOOD UREA NITROGEN 29 mg/dl (7-17); CALCIUM 8.7 mg/dL (8.4-10.2); GFR AFRICAN-AMERICAN > 60; GFR NON-AFRICAN AMERICAN > 60
--- NOTE | 2018-02-07 07:40 | PN ---
DATE: 02/06/2018 NEUROLOGY PROGRESS NOTE SUBJECTIVE: The patient is lying in the bed, in no acute distress. Denies having any headache or dizziness. PHYSICAL EXAMINATION: VITAL SIGNS: Her blood pressure is 123/68, heart rate is 91 per minute, breathing at a rate of 16 per minute, temperature 97.8 degrees Fahrenheit. HEENT: Head is normocephalic and atraumatic. NECK: Supple. There are no carotid bruits. LUNGS: Clear. CVS: S1 and S2 audible. No murmurs. ABDOMEN: Soft and nontender. Bowel sounds are present. NEUROLOGIC: Mental status: The patient is awake and alert. She knows she is in the hospital. She does not remember the year or the month. She knows the name of the president. She follows all simple commands. Cranial nerve examination: Pupils are 4 mm bilaterally reactive to light. Visual arthur are full. Extraocular movements are intact. There is no facial asymmetry. Palate is upgoing bilaterally. Tongue is midline. Motor examination: Tone is normal. She is moving all four extremities symmetrically; however, power appears to be more in the upper extremities than the lower extremities. Gait is deferred at the moment. LABORATORY DATA: Labs reviewed shows vitamin B12 level 497. The patient had a carotid Doppler study, which is a limited exam. There is no stenosis noted in the right internal carotid artery. The rest of the blood vessels including the left carotid artery was not imaged. IMPRESSION: 1. 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 2. Cerebrovascular disease. RECOMMENDATIONS: 1. The patient is tolerating increased dose of Namenda that is 5 mg twice a day, which is to be continued. 2. The patient to be continued on Plavix for underlying cerebrovascular disease. 3. The patient is on antibiotics for her cellulitis, which is to be continued. 4. Please continue supportive care and the treatment. Thank you for the opportunity to participate in the care of this patient. Josselyn Guerrero MD
[2018-02-07] MEDS: Critic-Aid Clear AF TOP SCH ×2 (09:05→16:22)
[2018-02-07] MEDS: Lactobacillus Acidophilus 500 MU Cap PO SCH ×2 (09:05→16:22)
[2018-02-07] MEDS: methIMAzole 5 MG TAB PO SCH (09:06)
[2018-02-07] MEDS: Bacitracin OINT 15GM TOP SCH (09:07)
[2018-02-07] MEDS: GlipiZIDE 2.5 mg SR Tab PO SCH (09:07)
--- NOTE | 2018-02-07 09:14 | CP.PCM.PN ---
Subjective - Date & Time of Evaluation Date of Evaluation: 02/07/18 Time of Evaluation: 08:00 - Subjective Subjective: Podiatry Progress Note - Dr. Briseno 77 year old female seen and evaluated for bilateral lower extremity ulcerations with cellulitis. Patient is seen resting in bed, appears more awake. Face color better. Patient is more talkative today compared to previous days. Expresses extreme pain with dressing change. Cooperative with dressing changes today. Patient reports same pain. Reports lower leg pain slightly better in a dependent position. Asked if they could be in a dependent position. Denies F/C/N /V/CP, reports mild SOB Objective - Vital Signs/Intake and Output Vital Signs (last 24 hours): Temp Pulse Resp BP Pulse Ox 97.7 F 98 H 20 124/64 93 L 02/07/18 08:02 02/07/18 08:02 02/07/18 08:02 02/07/18 08:02 02/07/18 08:02 - Medications Medications: Current Medications Acetaminophen (Tylenol 325mg Tab) 650 mg PO Q4 PRN PRN Reason: Pain, Mild (1-3) Last Admin: 02/07/18 03:14 Dose: 650 mg Acetaminophen (Tylenol 325mg Tab) 650 mg PO Q4 PRN PRN Reason: TEMP >100 Bacitracin (Bacitracin Oint) 1 applic TOP DAILY [facility] Last Admin: 02/07/18 09:07 Dose: 1 applic Bisacodyl (Dulcolax) [address] DAILY PRN PRN Reason: Constipation Ciprofloxacin (Cipro) 250 mg PO Q12 [facility] PRN Reason: Protocol Last Admin: 02/07/18 09:06 Dose: 250 mg Clopidogrel Bisulfate (Plavix) 75 mg PO DAILY [facility] Last Admin: 02/07/18 09:06 Dose: 75 mg Docusate Sodium (Colace) 100 mg PO DAILY [facility] Last Admin: 02/07/18 09:05 Dose: 100 mg Escitalopram Oxalate (Lexapro) 5 mg PO HS [facility] Last Admin: 02/06/18 21:28 Dose: 5 mg Famotidine (Pepcid) 20 mg PO DAILY [facility] Last Admin: 02/07/18 09:07 Dose: 20 mg Ferrous Sulfate (Feosol) 325 mg PO DAILY [facility] Last Admin: 02/07/18 09:06 Dose: 325 mg Furosemide (Lasix) 20 mg PO DAILY [facility] Last Admin: 02/03/18 09:54 Dose: 20 mg Glipizide (Glucotrol Xl) 2.5 mg PO DAILY [facility] Last Admin: 02/07/18 09:07 Dose: 2.5 mg Home Med (Hydrogen Peroxide [Peroxyl Dental Rinse]) 1 appl TOP MOWEFR [facility] Hydroxyzine HCl (Atarax) 10 mg PO TID PRN PRN Reason: pruritis Last Admin: 02/07/18 09:05 Dose: 10 mg Daptomycin 400 mg/ Sodium (Chloride) 100 mls @ 100 mls/hr IV DAILY [facility] Stop: 02/10/18 10:01 Last Admin: 02/06/18 12:50 Dose: 100 mls/hr Piperacillin Sod/Tazobactam (Sod 2.25 gm/ Sodium Chloride) 100 mls @ 100 mls/ hr IVPB Q6 [facility] PRN Reason: Protocol Last Admin: 02/07/18 09:08 Dose: 100 mls/hr Lactobacillus Acidophilus (Bacid Acidophilus) 1 cap PO BID [facility] Last Admin: 02/07/18 09:05 Dose: 1 cap Magnesium Hydroxide (Milk Of Magnesia) 30 ml PO HS PRN PRN Reason: Constipation Last Admin: 02/02/18 21:33 Dose: 30 ml Memantine (Namenda) 5 mg PO BID [facility] Last Admin: 02/07/18 09:06 Dose: 5 mg Methimazole (Tapazole) 5 mg PO DAILY [facility] Last Admin: 02/07/18 09:06 Dose: 5 mg Miconazole Nitrate (Critic-Aid Clear Af) 1 applic TOP BID [facility] Last Admin: 02/07/18 09:05 Dose: 1 applic Petrolatum (Desitin Maximum Strength Topical 40% Oint) 1 applic TOP QSHIFT [facility] Last Admin: 02/04/18 09:36 Dose: 1 applic Risperidone (Risperidone Odt 0.25mg) 0.25 mg PO Q12 PRN PRN Reason: Psychosis Last Admin: 02/05/18 10:13 Dose: 0.25 mg - Labs Labs: 02/07/18 06:05 02/07/18 06:05 PT 13.7 Seconds (9.8-13.1) H 02/06/18 06:00 INR 1.2 (0.9-1.2) 02/06/18 06:00 APTT 26.5 Seconds (25.6-37.1) 02/06/18 06:00 - Constitutional Appears: Well, Non-toxic, No Acute Distress - Extremities Exam Additional comments: lower extremity continue to improve in erythema increase ischemia changes to the right lower extremity, worse at the ulcerations to the digits Derm: Multiple chronic, 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 All blisters continue to weep serous fluid. Lanced blister is noted to lateral aspect of L plantar heel. Multiple ulcerations noted to the entire lower extremity with mixture of fibrotic/ necrotic wound base: Erythema to the entire LE R>L, malodorous, all sites (-) for purulence, fluctuance, probe to bone, tunneling or undermining. See below: RIGHT- Necrotic right heel eschar unstagable with no drainage noted. Ulceration noted measuring 7cm x 6cm x 0.1cm to posterior right leg mid calf with multiple vesicles noted to the medial aspect of the leg. Wound base has become more necrotic in nature, odorous, erythema has slightly improved, no tunneling, no probe to bone or tendon exposed. Ulcerations to dorsum of right digits 1, 2, 3, 4 with necrotic base, nail plate from nail bed of digits right 2, 3, 4 are absent, wound bed has become more necrotic LEFT- Lysed blister site with superficial ulceration measuring 4cm x 1.5cm x 0.1cm noted to anteromedial left leg. Lysed blister noted to the left heel. Granular in nature. Ulceration site noted to dorsum of L foot with wound base 100% fibrotic, measuring 4cm x 4.5cm x 0.2cm. Jennifer wound exhibits epithelization with healthy pink skin edges noted to dorsal left foot ulcer site. No malodor present today, no fluctuance, no probe to bone, no tunneling or no undermining. Ulcerations to distal and dorsum of the left digits 1 and 2 with fibrotic base and macerated periwound. Ortho: Sara's sign negative B/L. All ulceration sites are tender to palpation. No other gross musculoskeletal deformities noted Assessment and Plan - Assessment and Plan (Free Text) Assessment: 77 year old non compliant female patient with lower extremity cellulitis with lower extremity non healing partial thickness and unstageable ulcerations 2/2 multiple etiologies including DM, PVD, and swelling- swelling and erythema has decreased, ulcerations to LE becoming more necrotic in nature Plan: Patient seen and evaluated at bedside Discussed plan with Dr. Briseno Afebrile, leukocytosis , increase WBC=18.7 Erythema to the lower extremity diminished, swelling has diminished Patient LE with increase ischemic changes noted R>L LE. Recommends more invasive treatment plan given patient's recurrent history of cellulitis with multiple chronic LE ulcerations, extreme pain to the LE, and vascular supply. Briefly discussed with the patient the idea of amputation to LE. Wound culture of R leg (+) Serratia marcescens taken in the emergency room Repeat wound culture of the right lower extremity taken and given to nurse Cleansed LE ulceration with saline, dressed with Adaptic, ABD, DSD ID on board, continue IV abx per ID LE angiography reveals bilateral occluded SFA disease Will continue to follow patient while in house
--- NOTE | 2018-02-07 09:36 | CP.PCM.PN ---
Subjective - Date & Time of Evaluation Date of Evaluation: 02/07/18 Time of Evaluation: 08:00 - Subjective Subjective: NO CHEST PAIN BREATHING OK FEELS A LITTLE STRONGER Objective - Vital Signs/Intake and Output Vital Signs (last 24 hours): Temp Pulse Resp BP Pulse Ox 97.7 F 98 H 20 124/64 93 L 02/07/18 08:02 02/07/18 08:02 02/07/18 08:02 02/07/18 08:02 02/07/18 08:02 - Medications Medications: Current Medications Acetaminophen (Tylenol 325mg Tab) 650 mg PO Q4 PRN PRN Reason: Pain, Mild (1-3) Last Admin: 02/07/18 03:14 Dose: 650 mg Acetaminophen (Tylenol 325mg Tab) 650 mg PO Q4 PRN PRN Reason: TEMP >100 Bacitracin (Bacitracin Oint) 1 applic TOP DAILY [facility] Last Admin: 02/07/18 09:07 Dose: 1 applic Bisacodyl (Dulcolax) 10 mg [place] DAILY PRN PRN Reason: Constipation Ciprofloxacin (Cipro) 250 mg PO Q12 [facility] PRN Reason: Protocol Last Admin: 02/07/18 09:06 Dose: 250 mg Clopidogrel Bisulfate (Plavix) 75 mg PO DAILY [facility] Last Admin: 02/07/18 09:06 Dose: 75 mg Docusate Sodium (Colace) 100 mg PO DAILY [facility] Last Admin: 02/07/18 09:05 Dose: 100 mg Escitalopram Oxalate (Lexapro) 5 mg PO HS [facility] Last Admin: 02/06/18 21:28 Dose: 5 mg Famotidine (Pepcid) 20 mg PO DAILY [facility] Last Admin: 02/07/18 09:07 Dose: 20 mg Ferrous Sulfate (Feosol) 325 mg PO DAILY [facility] Last Admin: 02/07/18 09:06 Dose: 325 mg Furosemide (Lasix) 20 mg PO DAILY [facility] Last Admin: 02/03/18 09:54 Dose: 20 mg Glipizide (Glucotrol Xl) 2.5 mg PO DAILY [facility] Last Admin: 02/07/18 09:07 Dose: 2.5 mg Home Med (Hydrogen Peroxide [Peroxyl Dental Rinse]) 1 appl TOP MOWEFR [facility] Hydroxyzine HCl (Atarax) 10 mg PO TID PRN PRN Reason: pruritis Last Admin: 02/07/18 09:05 Dose: 10 mg Daptomycin 400 mg/ Sodium (Chloride) 100 mls @ 100 mls/hr IV DAILY [facility] Stop: 02/10/18 10:01 Last Admin: 02/06/18 12:50 Dose: 100 mls/hr Piperacillin Sod/Tazobactam (Sod 2.25 gm/ Sodium Chloride) 100 mls @ 100 mls/ hr IVPB Q6 [facility] PRN Reason: Protocol Last Admin: 02/07/18 09:08 Dose: 100 mls/hr Lactobacillus Acidophilus (Bacid Acidophilus) 1 cap PO BID [facility] Last Admin: 02/07/18 09:05 Dose: 1 cap Magnesium Hydroxide (Milk Of Magnesia) 30 ml PO HS PRN PRN Reason: Constipation Last Admin: 02/02/18 21:33 Dose: 30 ml Memantine (Namenda) 5 mg PO BID [facility] Last Admin: 02/07/18 09:06 Dose: 5 mg Methimazole (Tapazole) 5 mg PO DAILY [facility] Last Admin: 02/07/18 09:06 Dose: 5 mg Miconazole Nitrate (Critic-Aid Clear Af) 1 applic TOP BID [facility] Last Admin: 02/07/18 09:05 Dose: 1 applic Petrolatum (Desitin Maximum Strength Topical 40% Oint) 1 applic TOP QSHIFT [facility] Last Admin: 02/04/18 09:36 Dose: 1 applic Risperidone (Risperidone Odt 0.25mg) 0.25 mg PO Q12 PRN PRN Reason: Psychosis Last Admin: 02/05/18 10:13 Dose: 0.25 mg - Labs Labs: 02/07/18 06:05 02/07/18 06:05 PT 13.7 Seconds (9.8-13.1) H 02/06/18 06:00 INR 1.2 (0.9-1.2) 02/06/18 06:00 APTT 26.5 Seconds (25.6-37.1) 02/06/18 06:00 - Respiratory Exam Respiratory Exam: Decreased Breath Sounds - Cardiovascular Exam Cardiovascular Exam: REGULAR RHYTHM, +S1, +S2 - Extremities Exam Additional comments: BILATERAL LE ULCERS CONTINUE TO IMPROVE - Additional Findings Additional findings: BIN/CR 29/0.8 WBC 18K Assessment and Plan - Assessment and Plan (Free Text) Assessment: CAD-STABLE HYPERTENSION PAD COPD Plan: CONTINUE ANTIBIOTICS, FUROSEMIDE AND CLOPIDOGREL FOR PROBABLE INTERVENTIONAL CARDIOLOGY PROCEDURE NEXT WEEK
--- NOTE | 2018-02-07 10:50 | CP.PCM.CON ---
History of Present Illness - History of Present Illness History of Present Illness: Pt is known to the blog writer from her stay at [facility] prior to this admission. Pt spoke of upcoming procedures, refusing proedures/recommendations in the past due to anxiety/fears. Pt spoke of incresaed awareness of need for intervention. Pt spoke of being alone. Pt reassured health care providers will care for her needs. Strategies for coping and reducing her anxiety presented. plan: continued Sup therapy 7:40-8 AM Past Patient History - Infectious Disease Hx of Infectious Diseases: None - Past Medical History & Family History Past Medical History?: Yes - Past Social History Smoking Status: Former Smoker - CARDIAC Hx Congestive Heart Failure: Yes Hx Hypercholesterolemia: Yes Hx Hypertension: Yes Hx Peripheral Edema: Yes - PULMONARY Hx Bronchitis: Yes Hx Chronic Obstructive Pulmonary Disease (COPD): Yes Hx Pneumonia: Yes - NEUROLOGICAL Other/Comment: Paresthesias of both feet - HEENT Hx HEENT Problems: No - RENAL Hx Chronic Kidney Disease: Yes Hx Kidney Stones: Yes (kidney stone removal) - ENDOCRINE/METABOLIC Hx Hyperthyroidism: Yes - HEMATOLOGICAL/ONCOLOGICAL Hx Anemia: Yes Hx Human Immunodeficiency Virus (HIV): No - INTEGUMENTARY Hx Dermatological Problems: Yes Other/Comment: Dependent edema of both lower extremities with blister formation - MUSCULOSKELETAL/RHEUMATOLOGICAL Hx Falls: Yes - GASTROINTESTINAL Hx Gastrointestinal Disorders: No - GENITOURINARY/GYNECOLOGICAL Hx Genitourinary Disorders: No - PSYCHIATRIC Hx Psychophysiologic Disorder: No Hx Substance Use: No - SURGICAL HISTORY Hx Appendectomy: Yes - ANESTHESIA Hx Anesthesia: Yes Hx Anesthesia Reactions: No Hx Malignant Hyperthermia: No Meds Allergies/Adverse Reactions: Allergies Allergy/AdvReac Type Severity Reaction Status Date / Time No Known Allergies Allergy Verified 12/18/17 16:07 - Medications Medications: Current Medications Acetaminophen (Tylenol 325mg Tab) 650 mg PO Q4 PRN PRN Reason: Pain, Mild (1-3) Last Admin: 02/07/18 03:14 Dose: 650 mg Acetaminophen (Tylenol 325mg Tab) 650 mg PO Q4 PRN PRN Reason: TEMP >100 Bacitracin (Bacitracin Oint) 1 applic TOP DAILY [facility] Last Admin: 02/07/18 09:07 Dose: 1 applic Bisacodyl (Dulcolax) 10 mg [place] DAILY PRN PRN Reason: Constipation Ciprofloxacin (Cipro) 250 mg PO Q12 [facility] PRN Reason: Protocol Last Admin: 02/07/18 09:06 Dose: 250 mg Clopidogrel Bisulfate (Plavix) 75 mg PO DAILY [facility] Last Admin: 02/07/18 09:06 Dose: 75 mg Docusate Sodium (Colace) 100 mg PO DAILY [facility] Last Admin: 02/07/18 09:05 Dose: 100 mg Escitalopram Oxalate (Lexapro) 5 mg PO HS [facility] Last Admin: 02/06/18 21:28 Dose: 5 mg Famotidine (Pepcid) 20 mg PO DAILY [facility] Last Admin: 02/07/18 09:07 Dose: 20 mg Ferrous Sulfate (Feosol) 325 mg PO DAILY [facility] Last Admin: 02/07/18 09:06 Dose: 325 mg Furosemide (Lasix) 20 mg PO DAILY [facility] Last Admin: 02/03/18 09:54 Dose: 20 mg Glipizide (Glucotrol Xl) 2.5 mg PO DAILY [facility] Last Admin: 02/07/18 09:07 Dose: 2.5 mg Home Med (Hydrogen Peroxide [Peroxyl Dental Rinse]) 1 appl TOP MOWEFR [facility] Hydroxyzine HCl (Atarax) 10 mg PO TID PRN PRN Reason: pruritis Last Admin: 02/07/18 09:05 Dose: 10 mg Daptomycin 400 mg/ Sodium (Chloride) 100 mls @ 100 mls/hr IV DAILY [facility] Stop: 02/10/18 10:01 Last Admin: 02/06/18 12:50 Dose: 100 mls/hr Piperacillin Sod/Tazobactam (Sod 2.25 gm/ Sodium Chloride) 100 mls @ 100 mls/ hr IVPB Q6 [facility] PRN Reason: Protocol Last Admin: 02/07/18 09:08 Dose: 100 mls/hr Lactobacillus Acidophilus (Bacid Acidophilus) 1 cap PO BID [facility] Last Admin: 02/07/18 09:05 Dose: 1 cap Magnesium Hydroxide (Milk Of Magnesia) 30 ml PO HS PRN PRN Reason: Constipation Last Admin: 02/02/18 21:33 Dose: 30 ml Memantine (Namenda) 5 mg PO BID [facility] Last Admin: 02/07/18 09:06 Dose: 5 mg Methimazole (Tapazole) 5 mg PO DAILY [facility] Last Admin: 02/07/18 09:06 Dose: 5 mg Miconazole Nitrate (Critic-Aid Clear Af) 1 applic TOP BID [facility] Last Admin: 02/07/18 09:05 Dose: 1 applic Petrolatum (Desitin Maximum Strength Topical 40% Oint) 1 applic TOP QSHIFT [facility] Last Admin: 02/04/18 09:36 Dose: 1 applic Risperidone (Risperidone Odt 0.25mg) 0.25 mg PO Q12 PRN PRN Reason: Psychosis Last Admin: 02/05/18 10:13 Dose: 0.25 mg Results - Vital Signs Recent Vital Signs: Last Vital Signs Temp 97.7 F 02/07/18 08:02 Pulse 98 H 02/07/18 08:02 Resp 20 02/07/18 08:02 BP 124/64 02/07/18 08:02 Pulse Ox 93 L 02/07/18 08:02 - Labs Result Diagrams: 02/07/18 06:05 02/07/18 06:05 Labs: Laboratory Results - last 24 hr 02/06/18 02/07/18 02/07/18 10:35 06:05 06:05 WBC 18.7 H RBC 3.92 Hgb 9.8 L Hct 31.0 L MCV 79.0 L MCH 25.1 L MCHC 31.7 L RDW 20.1 H Plt Count 288 Retic Count 1.6 H D Sodium 139 Potassium 3.5 L Chloride 108 H Carbon Dioxide 20 L Anion Gap 15 BUN 29 H Creatinine 0.8 Est GFR ( Amer) > 60 Est GFR (Non-Af Amer) > 60 Random Glucose 132 H Calcium 8.7
--- NOTE | 2018-02-07 11:43 | CP.PCM.PN ---
Subjective - Date & Time of Evaluation Date of Evaluation: 02/07/18 Time of Evaluation: 11:41 - Subjective Subjective: Patient awake and consciousness no nausea no vomiting feeling better Objective - Vital Signs/Intake and Output Vital Signs (last 24 hours): Temp Pulse Resp BP Pulse Ox 97.7 F 98 H 20 124/64 93 L 02/07/18 08:02 02/07/18 08:02 02/07/18 08:02 02/07/18 08:02 02/07/18 08:02 - Medications Medications: Current Medications Acetaminophen (Tylenol 325mg Tab) 650 mg PO Q4 PRN PRN Reason: Pain, Mild (1-3) Last Admin: 02/07/18 03:14 Dose: 650 mg Acetaminophen (Tylenol 325mg Tab) 650 mg PO Q4 PRN PRN Reason: TEMP >100 Bacitracin (Bacitracin Oint) 1 applic TOP DAILY [facility] Last Admin: 02/07/18 09:07 Dose: 1 applic Bisacodyl (Dulcolax) 10 mg [place] DAILY PRN PRN Reason: Constipation Ciprofloxacin (Cipro) 250 mg PO Q12 [facility] PRN Reason: Protocol Last Admin: 02/07/18 09:06 Dose: 250 mg Clopidogrel Bisulfate (Plavix) 75 mg PO DAILY [facility] Last Admin: 02/07/18 09:06 Dose: 75 mg Docusate Sodium (Colace) 100 mg PO DAILY [facility] Last Admin: 02/07/18 09:05 Dose: 100 mg Escitalopram Oxalate (Lexapro) 5 mg PO HS [facility] Last Admin: 02/06/18 21:28 Dose: 5 mg Famotidine (Pepcid) 20 mg PO DAILY [facility] Last Admin: 02/07/18 09:07 Dose: 20 mg Ferrous Sulfate (Feosol) 325 mg PO DAILY [facility] Last Admin: 02/07/18 09:06 Dose: 325 mg Furosemide (Lasix) 20 mg PO DAILY [facility] Last Admin: 02/03/18 09:54 Dose: 20 mg Glipizide (Glucotrol Xl) 2.5 mg PO DAILY [facility] Last Admin: 02/07/18 09:07 Dose: 2.5 mg Home Med (Hydrogen Peroxide [Peroxyl Dental Rinse]) 1 appl TOP MOWEFR [facility] Hydroxyzine HCl (Atarax) 10 mg PO TID PRN PRN Reason: pruritis Last Admin: 02/07/18 09:05 Dose: 10 mg Daptomycin 400 mg/ Sodium (Chloride) 100 mls @ 100 mls/hr IV DAILY [facility] Stop: 02/10/18 10:01 Last Admin: 02/06/18 12:50 Dose: 100 mls/hr Piperacillin Sod/Tazobactam (Sod 2.25 gm/ Sodium Chloride) 100 mls @ 100 mls/ hr IVPB Q6 [facility] PRN Reason: Protocol Last Admin: 02/07/18 09:08 Dose: 100 mls/hr Lactobacillus Acidophilus (Bacid Acidophilus) 1 cap PO BID [facility] Last Admin: 02/07/18 09:05 Dose: 1 cap Magnesium Hydroxide (Milk Of Magnesia) 30 ml PO HS PRN PRN Reason: Constipation Last Admin: 02/02/18 21:33 Dose: 30 ml Memantine (Namenda) 5 mg PO BID [facility] Last Admin: 02/07/18 09:06 Dose: 5 mg Methimazole (Tapazole) 5 mg PO DAILY [facility] Last Admin: 02/07/18 09:06 Dose: 5 mg Miconazole Nitrate (Critic-Aid Clear Af) 1 applic TOP BID [facility] Last Admin: 02/07/18 09:05 Dose: 1 applic Petrolatum (Desitin Maximum Strength Topical 40% Oint) 1 applic TOP QSHIFT [facility] Last Admin: 02/04/18 09:36 Dose: 1 applic Risperidone (Risperidone Odt 0.25mg) 0.25 mg PO Q12 PRN PRN Reason: Psychosis Last Admin: 02/05/18 10:13 Dose: 0.25 mg - Labs Labs: 02/07/18 06:05 02/07/18 06:05 PT 13.7 Seconds (9.8-13.1) H 02/06/18 06:00 INR 1.2 (0.9-1.2) 02/06/18 06:00 APTT 26.5 Seconds (25.6-37.1) 02/06/18 06:00 - Constitutional Appears: No Acute Distress - ENT Exam ENT Exam: Mucous Membranes Moist - Neck Exam Neck Exam: absent: Lymphadenopathy - Respiratory Exam Respiratory Exam: NORMAL BREATHING PATTERN. absent: Chest Wall Tenderness - Cardiovascular Exam Cardiovascular Exam: absent: Gallop, JVD, Rubs - GI/Abdominal Exam GI & Abdominal Exam: Soft, Normal Bowel Sounds - Extremities Exam Extremities Exam: absent: Calf Tenderness - Back Exam Back Exam: absent: CVA tenderness (L), CVA tenderness (R) - Neurological Exam Neurological Exam: Alert - Psychiatric Exam Psychiatric exam: Normal Affect - Skin Skin Exam: absent: Cyanosis Assessment and Plan (1) ABBEY (acute kidney injury) Assessment & Plan: acute kidney injury appears to be recovering. Serum creatinine normal Hyponatremia corrected serum sodium 140 Patient now have hypokalemia serum potassium 3.5 she will need potassium chloride supplement. Leukocytosis is getting worse . Antibiotics as per infectious disease management patient has bilateral leg cellulitis. Status: Acute (2) Cellulitis, leg Status: Acute (3) PVD (peripheral vascular disease) Status: Acute (4) Anemia Status: Acute
--- NOTE | 2018-02-07 12:04 | CP.PCM.PN ---
Subjective - Date & Time of Evaluation Date of Evaluation: 02/07/18 Time of Evaluation: 09:00 - Subjective Subjective: no new complaints Objective - Vital Signs/Intake and Output Vital Signs (last 24 hours): Temp Pulse Resp BP Pulse Ox 97.7 F 98 H 20 124/64 93 L 02/07/18 08:02 02/07/18 08:02 02/07/18 08:02 02/07/18 08:02 02/07/18 08:02 - Medications Medications: Current Medications Acetaminophen (Tylenol 325mg Tab) 650 mg PO Q4 PRN PRN Reason: Pain, Mild (1-3) Last Admin: 02/07/18 03:14 Dose: 650 mg Acetaminophen (Tylenol 325mg Tab) 650 mg PO Q4 PRN PRN Reason: TEMP >100 Bacitracin (Bacitracin Oint) 1 applic TOP DAILY [facility] Last Admin: 02/07/18 09:07 Dose: 1 applic Bisacodyl (Dulcolax) 10 mg [place] DAILY PRN PRN Reason: Constipation Ciprofloxacin (Cipro) 250 mg PO Q12 [facility] PRN Reason: Protocol Last Admin: 02/07/18 09:06 Dose: 250 mg Clopidogrel Bisulfate (Plavix) 75 mg PO DAILY [facility] Last Admin: 02/07/18 09:06 Dose: 75 mg Docusate Sodium (Colace) 100 mg PO DAILY [facility] Last Admin: 02/07/18 09:05 Dose: 100 mg Escitalopram Oxalate (Lexapro) 5 mg PO HS [facility] Last Admin: 02/06/18 21:28 Dose: 5 mg Famotidine (Pepcid) 20 mg PO DAILY [facility] Last Admin: 02/07/18 09:07 Dose: 20 mg Ferrous Sulfate (Feosol) 325 mg PO DAILY [facility] Last Admin: 02/07/18 09:06 Dose: 325 mg Furosemide (Lasix) 20 mg PO DAILY [facility] Last Admin: 02/03/18 09:54 Dose: 20 mg Glipizide (Glucotrol Xl) 2.5 mg PO DAILY [facility] Last Admin: 02/07/18 09:07 Dose: 2.5 mg Home Med (Hydrogen Peroxide [Peroxyl Dental Rinse]) [facility] Hydroxyzine HCl (Atarax) 10 mg PO TID PRN PRN Reason: pruritis Last Admin: 02/07/18 09:05 Dose: 10 mg Daptomycin 400 mg/ Sodium (Chloride) 100 mls @ 100 mls/hr IV DAILY [facility] Stop: 02/10/18 10:01 Last Admin: 02/06/18 12:50 Dose: 100 mls/hr Piperacillin Sod/Tazobactam (Sod 2.25 gm/ Sodium Chloride) 100 mls @ 100 mls/ hr IVPB Q6 [facility] PRN Reason: Protocol Last Admin: 02/07/18 09:08 Dose: 100 mls/hr Lactobacillus Acidophilus (Bacid Acidophilus) 1 cap PO BID [facility] Last Admin: 02/07/18 09:05 Dose: 1 cap Magnesium Hydroxide (Milk Of Magnesia) 30 ml PO HS PRN PRN Reason: Constipation Last Admin: 02/02/18 21:33 Dose: 30 ml Memantine (Namenda) 5 mg PO BID [facility] Last Admin: 02/07/18 09:06 Dose: 5 mg Methimazole (Tapazole) 5 mg PO DAILY [facility] Last Admin: 02/07/18 09:06 Dose: 5 mg Miconazole Nitrate (Critic-Aid Clear Af) 1 applic TOP BID [facility] Last Admin: 02/07/18 09:05 Dose: 1 applic Petrolatum (Desitin Maximum Strength Topical 40% Oint) 1 applic TOP QSHIFT [facility] Last Admin: 02/04/18 09:36 Dose: 1 applic Risperidone (Risperidone Odt 0.25mg) 0.25 mg PO Q12 PRN PRN Reason: Psychosis Last Admin: 02/05/18 10:13 Dose: 0.25 mg - Labs Labs: 02/07/18 06:05 02/07/18 06:05 PT 13.7 Seconds (9.8-13.1) H 02/06/18 06:00 INR 1.2 (0.9-1.2) 02/06/18 06:00 APTT 26.5 Seconds (25.6-37.1) 02/06/18 06:00 - Constitutional Appears: Non-toxic, Confused, Chronically Ill - Head Exam Head Exam: NORMOCEPHALIC - Eye Exam Eye Exam: absent: Scleral icterus - ENT Exam ENT Exam: Mucous Membranes Dry - Neck Exam Neck Exam: absent: Lymphadenopathy - Respiratory Exam Respiratory Exam: Decreased Breath Sounds - Cardiovascular Exam Cardiovascular Exam: REGULAR RHYTHM - GI/Abdominal Exam GI & Abdominal Exam: Distended - Rectal Exam Rectal Exam: Deferred Assessment and Plan (1) Cellulitis, leg Status: Acute (2) PVD (peripheral vascular disease) Status: Acute (3) Sepsis Status: Acute - Assessment and Plan (Free Text) Assessment: cont wound care and IV rx vascular eval in progress poor prognosis
--- NOTE | 2018-02-07 15:37 | CP.PCM.PN ---
Subjective - Date & Time of Evaluation Date of Evaluation: 02/07/18 Time of Evaluation: 15:37 - Subjective Subjective: wbc count 18 k Objective - Vital Signs/Intake and Output Vital Signs (last 24 hours): Temp Pulse Resp BP Pulse Ox 97.7 F 98 H 20 124/64 93 L 02/07/18 09:00 02/07/18 09:00 02/07/18 09:00 02/07/18 09:00 02/07/18 09:00 - Medications Medications: Current Medications Acetaminophen (Tylenol 325mg Tab) 650 mg PO Q4 PRN PRN Reason: Pain, Mild (1-3) Last Admin: 02/07/18 03:14 Dose: 650 mg Acetaminophen (Tylenol 325mg Tab) 650 mg PO Q4 PRN PRN Reason: TEMP >100 Bacitracin (Bacitracin Oint) 1 applic TOP DAILY [facility] Last Admin: 02/07/18 09:07 Dose: 1 applic Bisacodyl (Dulcolax) 10 mg [place] DAILY PRN PRN Reason: Constipation Ciprofloxacin (Cipro) 250 mg PO Q12 [facility] PRN Reason: Protocol Last Admin: 02/07/18 09:06 Dose: 250 mg Clopidogrel Bisulfate (Plavix) 75 mg PO DAILY [facility] Last Admin: 02/07/18 09:06 Dose: 75 mg Docusate Sodium (Colace) 100 mg PO DAILY [facility] Last Admin: 02/07/18 09:05 Dose: 100 mg Escitalopram Oxalate (Lexapro) 5 mg PO HS [facility] Last Admin: 02/06/18 21:28 Dose: 5 mg Famotidine (Pepcid) 20 mg PO DAILY [facility] Last Admin: 02/07/18 09:07 Dose: 20 mg Ferrous Sulfate (Feosol) 325 mg PO DAILY [facility] Last Admin: 02/07/18 09:06 Dose: 325 mg Furosemide (Lasix) 20 mg PO DAILY [facility] Last Admin: 02/03/18 09:54 Dose: 20 mg Glipizide (Glucotrol Xl) 2.5 mg PO DAILY [facility] Last Admin: 02/07/18 09:07 Dose: 2.5 mg Home Med (Hydrogen Peroxide [Peroxyl Dental Rinse]) 1 appl TOP MOWEFR [facility] Hydroxyzine HCl (Atarax) 10 mg PO TID PRN PRN Reason: pruritis Last Admin: 02/07/18 09:05 Dose: 10 mg Daptomycin 400 mg/ Sodium (Chloride) 100 mls @ 100 mls/hr IV DAILY [facility] Stop: 02/10/18 10:01 Last Admin: 02/07/18 13:05 Dose: 100 mls/hr Piperacillin Sod/Tazobactam (Sod 2.25 gm/ Sodium Chloride) 100 mls @ 100 mls/ hr IVPB Q6 [facility] PRN Reason: Protocol Last Admin: 02/07/18 09:08 Dose: 100 mls/hr Lactobacillus Acidophilus (Bacid Acidophilus) 1 cap PO BID [facility] Last Admin: 02/07/18 09:05 Dose: 1 cap Magnesium Hydroxide (Milk Of Magnesia) 30 ml PO HS PRN PRN Reason: Constipation Last Admin: 02/02/18 21:33 Dose: 30 ml Memantine (Namenda) 5 mg PO BID [facility] Last Admin: 02/07/18 09:06 Dose: 5 mg Methimazole (Tapazole) 5 mg PO DAILY [facility] Last Admin: 02/07/18 09:06 Dose: 5 mg Miconazole Nitrate (Critic-Aid Clear Af) 1 applic TOP BID [facility] Last Admin: 02/07/18 09:05 Dose: 1 applic Petrolatum (Desitin Maximum Strength Topical 40% Oint) 1 applic TOP QSHIFT [facility] Last Admin: 02/04/18 09:36 Dose: 1 applic Risperidone (Risperidone Odt 0.25mg) 0.25 mg PO Q12 PRN PRN Reason: Psychosis Last Admin: 02/05/18 10:13 Dose: 0.25 mg - Labs Labs: 02/07/18 06:05 02/07/18 06:05 PT 13.7 Seconds (9.8-13.1) H 02/06/18 06:00 INR 1.2 (0.9-1.2) 02/06/18 06:00 APTT 26.5 Seconds (25.6-37.1) 02/06/18 06:00 - Constitutional Appears: Well - Head Exam Head Exam: ATRAUMATIC, NORMAL INSPECTION, NORMOCEPHALIC - Eye Exam Eye Exam: EOMI, Normal appearance, PERRL Pupil Exam: NORMAL ACCOMODATION, PERRL - ENT Exam ENT Exam: Mucous Membranes Moist, Normal Exam - Neck Exam Neck Exam: Full ROM, Normal Inspection. absent: Lymphadenopathy - Respiratory Exam Respiratory Exam: Clear to Ausculation Bilateral, NORMAL BREATHING PATTERN - Cardiovascular Exam Cardiovascular Exam: REGULAR RHYTHM, +S1, +S2. absent: Murmur - GI/Abdominal Exam GI & Abdominal Exam: Soft, Normal Bowel Sounds. absent: Tenderness - Extremities Exam Extremities Exam: Full ROM, Normal Capillary Refill, Normal Inspection. 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
--- NOTE | 2018-02-07 16:23 | CP.PCM.CON ---
History of Present Illness - History of Present Illness History of Present Illness: Surgery Consult note- Dr. Woods Reason for consult: bilateral LE non-healing wounds 77F pmhx significant for DM, CAD, CHF, chronic anemia, non-healing bilateral lower extremity wounds w/ malodrous smell was admitted to the hospital recently for similar symptoms of increased pain and foul smelling bilateral lower extremities. Interventional cardiology, and podiatry on board. Currently receiving IV abx and WBC improving. Recent CTA shows decreased blood flow in descending aorta prior to the illiacs. Currently having bilateral lower extremity pain. Legs are currently wrapped PMH: stated above PSH: denies ALL: NKDA SocialHx: former tobacco use, denies recreational drug use FH: non-contributory 12 pt ROS conducted, negative otherwise stated above Review of Systems - Review of Systems All systems: reviewed and no additional remarkable complaints except - Constitutional Constitutional: As Per HPI Past Patient History - Infectious Disease Hx of Infectious Diseases: None - Past Medical History & Family History Past Medical History?: Yes - Past Social History Smoking Status: Former Smoker - CARDIAC Hx Congestive Heart Failure: Yes Hx Hypercholesterolemia: Yes Hx Hypertension: Yes Hx Peripheral Edema: Yes - PULMONARY Hx Bronchitis: Yes Hx Chronic Obstructive Pulmonary Disease (COPD): Yes Hx Pneumonia: Yes - NEUROLOGICAL Other/Comment: Paresthesias of both feet - HEENT Hx HEENT Problems: No - RENAL Hx Chronic Kidney Disease: Yes Hx Kidney Stones: Yes (kidney stone removal) - ENDOCRINE/METABOLIC Hx Hyperthyroidism: Yes - HEMATOLOGICAL/ONCOLOGICAL Hx Anemia: Yes Hx Human Immunodeficiency Virus (HIV): No - INTEGUMENTARY Hx Dermatological Problems: Yes Other/Comment: Dependent edema of both lower extremities with blister formation - MUSCULOSKELETAL/RHEUMATOLOGICAL Hx Falls: Yes - GASTROINTESTINAL Hx Gastrointestinal Disorders: No - GENITOURINARY/GYNECOLOGICAL Hx Genitourinary Disorders: No - PSYCHIATRIC Hx Psychophysiologic Disorder: No Hx Substance Use: No - SURGICAL HISTORY Hx Appendectomy: Yes - ANESTHESIA Hx Anesthesia: Yes Hx Anesthesia Reactions: No Hx Malignant Hyperthermia: No Meds Allergies/Adverse Reactions: Allergies Allergy/AdvReac Type Severity Reaction Status Date / Time No Known Allergies Allergy Verified 12/18/17 16:07 - Medications Medications: Current Medications Acetaminophen (Tylenol 325mg Tab) 650 mg PO Q4 PRN PRN Reason: Pain, Mild (1-3) Last Admin: 02/07/18 03:14 Dose: 650 mg Acetaminophen (Tylenol 325mg Tab) 650 mg PO Q4 PRN PRN Reason: TEMP >100 Bacitracin (Bacitracin Oint) 1 applic TOP DAILY [facility] Last Admin: 02/07/18 09:07 Dose: 1 applic Bisacodyl (Dulcolax) 10 mg [place] DAILY PRN PRN Reason: Constipation Ciprofloxacin (Cipro) 250 mg PO Q12 [facility] PRN Reason: Protocol Last Admin: 02/07/18 09:06 Dose: 250 mg Clopidogrel Bisulfate (Plavix) 75 mg PO DAILY [facility] Last Admin: 02/07/18 09:06 Dose: 75 mg Docusate Sodium (Colace) 100 mg PO DAILY [facility] Last Admin: 02/07/18 09:05 Dose: 100 mg Escitalopram Oxalate (Lexapro) 5 mg PO HS [facility] Last Admin: 02/06/18 21:28 Dose: 5 mg Famotidine (Pepcid) 20 mg PO DAILY [facility] Last Admin: 02/07/18 09:07 Dose: 20 mg Ferrous Sulfate (Feosol) 325 mg PO DAILY [facility] Last Admin: 02/07/18 09:06 Dose: 325 mg Furosemide (Lasix) 20 mg PO DAILY [facility] Last Admin: 02/03/18 09:54 Dose: 20 mg Glipizide (Glucotrol Xl) 2.5 mg PO DAILY [facility] Last Admin: 02/07/18 09:07 Dose: 2.5 mg Home Med (Hydrogen Peroxide [Peroxyl Dental Rinse]) 1 appl TOP MOWEFR [facility] Hydroxyzine HCl (Atarax) 10 mg PO TID PRN PRN Reason: pruritis Last Admin: 02/07/18 09:05 Dose: 10 mg Daptomycin 400 mg/ Sodium (Chloride) 100 mls @ 100 mls/hr IV DAILY [facility] Stop: 02/10/18 10:01 Last Admin: 02/07/18 13:05 Dose: 100 mls/hr Piperacillin Sod/Tazobactam (Sod 2.25 gm/ Sodium Chloride) 100 mls @ 100 mls/ hr IVPB Q6 [facility] PRN Reason: Protocol Last Admin: 02/07/18 09:08 Dose: 100 mls/hr Lactobacillus Acidophilus (Bacid Acidophilus) 1 cap PO BID [facility] Last Admin: 02/07/18 09:05 Dose: 1 cap Magnesium Hydroxide (Milk Of Magnesia) 30 ml PO HS PRN PRN Reason: Constipation Last Admin: 02/02/18 21:33 Dose: 30 ml Memantine (Namenda) 5 mg PO BID [facility] Last Admin: 02/07/18 09:06 Dose: 5 mg Methimazole (Tapazole) 5 mg PO DAILY [facility] Last Admin: 02/07/18 09:06 Dose: 5 mg Miconazole Nitrate (Critic-Aid Clear Af) 1 applic TOP BID [facility] Last Admin: 02/07/18 09:05 Dose: 1 applic Petrolatum (Desitin Maximum Strength Topical 40% Oint) 1 applic TOP QSHIFT [facility] Last Admin: 02/04/18 09:36 Dose: 1 applic Risperidone (Risperidone Odt 0.25mg) 0.25 mg PO Q12 PRN PRN Reason: Psychosis Last Admin: 02/05/18 10:13 Dose: 0.25 mg Physical Exam - Constitutional Appears: Non-toxic, No Acute Distress, Unkempt, Older Than Stated Age - Head Exam Head Exam: ATRAUMATIC - Eye Exam Eye Exam: EOMI. absent: Scleral icterus - ENT Exam ENT Exam: Mucous Membranes Moist - Respiratory Exam Respiratory Exam: NORMAL BREATHING PATTERN. absent: Accessory Muscle Use, Respiratory Distress - Cardiovascular Exam Cardiovascular Exam: +S1, +S2. absent: Bradycardia, Tachycardia - GI/Abdominal Exam GI & Abdominal Exam: Soft. absent: Guarding, Hernia, Rebound, Rigid, Tenderness - Extremities Exam Additional comments: bilateral non-healing leg ulcers and different stages non-palpable DP or PT pulses bilaterally - Neurological Exam Neurological exam: Alert - Psychiatric Exam Psychiatric exam: Normal Affect - Skin Skin Exam: Intact, Warm Results - Vital Signs Recent Vital Signs: Last Vital Signs Temp 97.7 F 02/07/18 09:00 Pulse 98 H 02/07/18 09:00 Resp 20 02/07/18 09:00 BP 124/64 02/07/18 09:00 Pulse Ox 93 L 02/07/18 09:00 - Labs Result Diagrams: 02/07/18 06:05 02/07/18 06:05 Labs: Laboratory Results - last 24 hr 02/07/18 02/07/18 06:05 06:05 WBC 18.7 H RBC 3.92 Hgb 9.8 L Hct 31.0 L MCV 79.0 L MCH 25.1 L MCHC 31.7 L RDW 20.1 H Plt Count 288 Sodium 139 Potassium 3.5 L Chloride 108 H Carbon Dioxide 20 L Anion Gap 15 BUN 29 H Creatinine 0.8 Est GFR ( Amer) > 60 Est GFR (Non-Af Amer) > 60 Random Glucose 132 H Calcium 8.7 Assessment & Plan - Assessment and Plan (Free Text) Assessment: 77F w/ bilateral LE chronic non-healing. Recent CTA shows advanced arterial disease in descending aorta and iliofem. Plan: - Plan for cardio intervention angio on Saturday - c/w IVAbx - local wound care - no acute surgical intervention at this time - await results for angiography - discussed w/ Dr. Woods Surgical attending PGY1
--- NOTE | 2018-02-07 19:08 | CP.PCM.PN ---
Subjective - Date & Time of Evaluation Date of Evaluation: 02/07/18 Time of Evaluation: 22:22 - Subjective Subjective: Above noted WBC 18K Objective - Vital Signs/Intake and Output Vital Signs (last 24 hours): Temp Pulse Resp BP Pulse Ox 97.7 F 92 H 20 118/71 95 02/07/18 17:00 02/07/18 17:00 02/07/18 17:00 02/07/18 17:00 02/07/18 17:00 - Medications Medications: Current Medications Acetaminophen (Tylenol 325mg Tab) 650 mg PO Q4 PRN PRN Reason: Pain, Mild (1-3) Last Admin: 02/07/18 03:14 Dose: 650 mg Acetaminophen (Tylenol 325mg Tab) 650 mg PO Q4 PRN PRN Reason: TEMP >100 Bacitracin (Bacitracin Oint) 1 applic TOP DAILY [facility] Last Admin: 02/07/18 09:07 Dose: 1 applic Bisacodyl (Dulcolax) 10 mg [place] DAILY PRN PRN Reason: Constipation Ciprofloxacin (Cipro) 250 mg PO Q12 [facility] PRN Reason: Protocol Last Admin: 02/07/18 09:06 Dose: 250 mg Clopidogrel Bisulfate (Plavix) 75 mg PO DAILY [facility] Last Admin: 02/07/18 09:06 Dose: 75 mg Docusate Sodium (Colace) 100 mg PO DAILY [facility] Last Admin: 02/07/18 09:05 Dose: 100 mg Escitalopram Oxalate (Lexapro) 5 mg PO HS [facility] Last Admin: 02/06/18 21:28 Dose: 5 mg Famotidine (Pepcid) 20 mg PO DAILY [facility] Last Admin: 02/07/18 09:07 Dose: 20 mg Ferrous Sulfate (Feosol) 325 mg PO DAILY [facility] Last Admin: 02/07/18 09:06 Dose: 325 mg Furosemide (Lasix) 20 mg PO DAILY [facility] Last Admin: 02/03/18 09:54 Dose: 20 mg Glipizide (Glucotrol Xl) 2.5 mg PO DAILY [facility] Last Admin: 02/07/18 09:07 Dose: 2.5 mg Home Med (Hydrogen Peroxide [Peroxyl Dental Rinse]) 1 appl TOP MOWEFR [facility] Hydroxyzine HCl (Atarax) 10 mg PO TID PRN PRN Reason: pruritis Last Admin: 02/07/18 09:05 Dose: 10 mg Daptomycin 400 mg/ Sodium (Chloride) 100 mls @ 100 mls/hr IV DAILY [facility] Stop: 02/10/18 10:01 Last Admin: 02/07/18 13:05 Dose: 100 mls/hr Piperacillin Sod/Tazobactam (Sod 2.25 gm/ Sodium Chloride) 100 mls @ 100 mls/ hr IVPB Q6 [facility] PRN Reason: Protocol Last Admin: 02/07/18 16:23 Dose: 100 mls/hr Lactobacillus Acidophilus (Bacid Acidophilus) 1 cap PO BID [facility] Last Admin: 02/07/18 16:22 Dose: 1 cap Magnesium Hydroxide (Milk Of Magnesia) 30 ml PO HS PRN PRN Reason: Constipation Last Admin: 02/02/18 21:33 Dose: 30 ml Memantine (Namenda) 5 mg PO BID [facility] Last Admin: 02/07/18 16:22 Dose: 5 mg Methimazole (Tapazole) 5 mg PO DAILY [facility] Last Admin: 02/07/18 09:06 Dose: 5 mg Miconazole Nitrate (Critic-Aid Clear Af) 1 applic TOP BID [facility] Last Admin: 02/07/18 16:22 Dose: 1 applic Petrolatum (Desitin Maximum Strength Topical 40% Oint) 1 applic TOP QSHIFT [facility] Last Admin: 02/04/18 09:36 Dose: 1 applic Risperidone (Risperidone Odt 0.25mg) 0.25 mg PO Q12 PRN PRN Reason: Psychosis Last Admin: 02/05/18 10:13 Dose: 0.25 mg - Labs Labs: 02/07/18 06:05 02/07/18 06:05 PT 13.7 Seconds (9.8-13.1) H 02/06/18 06:00 INR 1.2 (0.9-1.2) 02/06/18 06:00 APTT 26.5 Seconds (25.6-37.1) 02/06/18 06:00 - Respiratory Exam Respiratory Exam: NORMAL BREATHING PATTERN - Cardiovascular Exam Cardiovascular Exam: REGULAR RHYTHM - GI/Abdominal Exam GI & Abdominal Exam: Normal Bowel Sounds Assessment and Plan - Assessment and Plan (Free Text) Assessment: WBC improving Low ext edema cellulitis Significant Arterial occlusive dx Wound cs Serratia Leg elevation IV ABX Zosyn/ Vanco ID Podiatry Surgery Physiatry Vascular Angiogram low ext ? ABBEY/ CKD creat improved Nephrology IVF Psychiatric dx?? Ultram?? Adj disorder with depression Psychiatry SSRI Resperidol CHF Diastolic CAD stress thalium scarring ischemia?? cardiac cath refused?? Cardiology Hx COPD L Pleural effusion Pulmonary Hx Anemia ASA d/c as outpt due to dec Hbg NIDDM Thyroid dx Endo
--- NOTE | 2018-02-08 05:53 | CP.PCM.PN ---
Subjective - Date & Time of Evaluation Date of Evaluation: 02/08/18 Time of Evaluation: 22:22 - Subjective Subjective: Above noted Objective - Vital Signs/Intake and Output Vital Signs (last 24 hours): Temp Pulse Resp BP Pulse Ox 98.0 F 99 H 19 135/71 96 02/08/18 00:00 02/08/18 00:00 02/08/18 00:00 02/08/18 00:00 02/08/18 00:00 - Medications Medications: Current Medications Acetaminophen (Tylenol 325mg Tab) 650 mg PO Q4 PRN PRN Reason: Pain, Mild (1-3) Last Admin: 02/07/18 03:14 Dose: 650 mg Acetaminophen (Tylenol 325mg Tab) 650 mg PO Q4 PRN PRN Reason: TEMP >100 Bacitracin (Bacitracin Oint) 1 applic TOP DAILY [facility] Last Admin: 02/07/18 09:07 Dose: 1 applic Bisacodyl (Dulcolax) 10 mg [place] DAILY PRN PRN Reason: Constipation Ciprofloxacin (Cipro) 250 mg PO Q12 [facility] PRN Reason: Protocol Last Admin: 02/07/18 20:49 Dose: 250 mg Clopidogrel Bisulfate (Plavix) 75 mg PO DAILY [facility] Last Admin: 02/07/18 09:06 Dose: 75 mg Docusate Sodium (Colace) 100 mg PO DAILY [facility] Last Admin: 02/07/18 09:05 Dose: 100 mg Escitalopram Oxalate (Lexapro) 5 mg PO HS [facility] Last Admin: 02/07/18 21:32 Dose: 5 mg Famotidine (Pepcid) 20 mg PO DAILY [facility] Last Admin: 02/07/18 09:07 Dose: 20 mg Ferrous Sulfate (Feosol) 325 mg PO DAILY [facility] Last Admin: 02/07/18 09:06 Dose: 325 mg Furosemide (Lasix) 20 mg PO DAILY [facility] Last Admin: 02/03/18 09:54 Dose: 20 mg Glipizide (Glucotrol Xl) 2.5 mg PO DAILY [facility] Last Admin: 02/07/18 09:07 Dose: 2.5 mg Home Med (Hydrogen Peroxide [Peroxyl Dental Rinse]) 1 appl TOP [facility] Hydroxyzine HCl (Atarax) 10 mg PO TID PRN PRN Reason: pruritis Last Admin: 02/07/18 20:49 Dose: 10 mg Daptomycin 400 mg/ Sodium (Chloride) 100 mls @ 100 mls/hr IV DAILY [facility] Stop: 02/10/18 10:01 Last Admin: 02/07/18 13:05 Dose: 100 mls/hr Piperacillin Sod/Tazobactam (Sod 2.25 gm/ Sodium Chloride) 100 mls @ 100 mls/ hr IVPB Q6 [facility] PRN Reason: Protocol Last Admin: 02/08/18 04:06 Dose: 100 mls/hr Lactobacillus Acidophilus (Bacid Acidophilus) 1 cap PO BID [facility] Last Admin: 02/07/18 16:22 Dose: 1 cap Magnesium Hydroxide (Milk Of Magnesia) 30 ml PO HS PRN PRN Reason: Constipation Last Admin: 02/02/18 21:33 Dose: 30 ml Memantine (Namenda) 5 mg PO BID [facility] Last Admin: 02/07/18 16:22 Dose: 5 mg Methimazole (Tapazole) 5 mg PO DAILY [facility] Last Admin: 02/07/18 09:06 Dose: 5 mg Miconazole Nitrate (Critic-Aid Clear Af) 1 applic TOP BID [facility] Last Admin: 02/07/18 16:22 Dose: 1 applic Petrolatum (Desitin Maximum Strength Topical 40% Oint) 1 applic TOP QSHIFT [facility] Last Admin: 02/04/18 09:36 Dose: 1 applic Risperidone (Risperidone Odt 0.25mg) 0.25 mg PO Q12 PRN PRN Reason: Psychosis Last Admin: 02/05/18 10:13 Dose: 0.25 mg - Labs Labs: 02/07/18 06:05 02/07/18 06:05 PT 13.7 Seconds (9.8-13.1) H 02/06/18 06:00 INR 1.2 (0.9-1.2) 02/06/18 06:00 APTT 26.5 Seconds (25.6-37.1) 02/06/18 06:00 - Respiratory Exam Respiratory Exam: NORMAL BREATHING PATTERN - Cardiovascular Exam Cardiovascular Exam: REGULAR RHYTHM - GI/Abdominal Exam GI & Abdominal Exam: Normal Bowel Sounds Assessment and Plan - Assessment and Plan (Free Text) Assessment: WBC improving Low ext edema cellulitis Significant Arterial occlusive dx Wound cs Serratia Leg elevation IV ABX Zosyn/ Daptomycin ID Podiatry Surgery Physiatry Vascular Angiogram low ext ? Jose A ABBEY/ CKD creat improved Nephrology IVF Psychiatric dx?? Ultram?? Adj disorder with depression Psychiatry SSRI Resperidol CHF Diastolic CAD stress thalium scarring ischemia?? cardiac cath refused?? Cardiology Hx COPD L Pleural effusion Pulmonary Hx Anemia Chronic dx ASA d/c as outpt due to dec Hbg S/P Procrit transfusion NIDDM Thyroid dx
[2018-02-08 07:52] LABS: HEMOGLOBIN 9.8 g/dL (12.0-16.0); MEAN CELL VOLUME 79.3 fl (81.0-99.0); MEAN CORPUSCULAR HGB CONC 31.5 g/dL (33.0-37.0); RBC 3.91 Mil/uL (3.80-5.20); RED CELL DISTRIBUTION WIDTH 20.3 % (11.5-14.5)
[2018-02-08 08:03] LABS: BLOOD UREA NITROGEN 25 mg/dl (7-17); CALCIUM 8.6 mg/dL (8.4-10.2); GFR AFRICAN-AMERICAN > 60; GFR NON-AFRICAN AMERICAN > 60
[2018-02-08] MEDS: Lactobacillus Acidophilus 500 MU Cap PO SCH ×2 (09:19→18:25)
[2018-02-08] MEDS: methIMAzole 5 MG TAB PO SCH (09:20)
[2018-02-08] MEDS: GlipiZIDE 2.5 mg SR Tab PO SCH (09:20)
[2018-02-08] MEDS: RISPERIDONE 0.25 MG ODT PO PRN (09:20)
[2018-02-08] MEDS: Critic-Aid Clear AF TOP SCH ×3 (09:21→18:20)
[2018-02-08] MEDS: Bacitracin OINT 15GM TOP SCH (09:22)
--- NOTE | 2018-02-08 09:31 | CP.PCM.PN ---
Subjective - Date & Time of Evaluation Date of Evaluation: 02/08/18 Time of Evaluation: 09:29 - Subjective Subjective: Podiatry Progress Note - Dr. Briseno 77 year old female seen and evaluated for bilateral lower extremity ulcerations with cellulitis. Patient is seen with Dr. Briseno at bedside. Patient appears to be resting in bed; AAOx3 and in NAD. Expresses pain with dressing change. Denies F/N/V/C/SOB/CP. No other pedal complains at this time. Objective - Vital Signs/Intake and Output Vital Signs (last 24 hours): Temp Pulse Resp BP Pulse Ox 98.1 F 96 H 20 132/70 93 L 02/08/18 08:28 02/08/18 08:28 02/08/18 08:28 02/08/18 08:28 02/08/18 08:28 - Medications Medications: Current Medications Acetaminophen (Tylenol 325mg Tab) 650 mg PO Q4 PRN PRN Reason: Pain, Mild (1-3) Last Admin: 02/07/18 03:14 Dose: 650 mg Acetaminophen (Tylenol 325mg Tab) 650 mg PO Q4 PRN PRN Reason: TEMP >100 Bacitracin (Bacitracin Oint) 1 applic TOP DAILY [facility] Last Admin: 02/08/18 09:22 Dose: 1 applic Bisacodyl (Dulcolax) 10 mg [place] DAILY PRN PRN Reason: Constipation Ciprofloxacin (Cipro) 250 mg PO Q12 [facility] PRN Reason: Protocol Last Admin: 02/08/18 09:19 Dose: 250 mg Clopidogrel Bisulfate (Plavix) 75 mg PO DAILY [facility] Last Admin: 02/08/18 09:19 Dose: 75 mg Docusate Sodium (Colace) 100 mg PO DAILY [facility] Last Admin: 02/07/18 09:05 Dose: 100 mg Escitalopram Oxalate (Lexapro) 5 mg PO HS [facility] Last Admin: 02/07/18 21:32 Dose: 5 mg Famotidine (Pepcid) 20 mg PO DAILY [facility] Last Admin: 02/08/18 09:20 Dose: 20 mg Ferrous Sulfate (Feosol) 325 mg PO DAILY [facility] Last Admin: 02/08/18 09:21 Dose: 325 mg Furosemide (Lasix) 20 mg PO DAILY [facility] Last Admin: 02/03/18 09:54 Dose: 20 mg Glipizide (Glucotrol Xl) 2.5 mg PO DAILY [facility] Last Admin: 02/08/18 09:20 Dose: 2.5 mg Home Med (Hydrogen Peroxide [Peroxyl Dental Rinse]) 1 appl TOP MOWEFR [facility] Hydroxyzine HCl (Atarax) 10 mg PO TID PRN PRN Reason: pruritis Last Admin: 02/08/18 09:19 Dose: 10 mg Daptomycin 400 mg/ Sodium (Chloride) 100 mls @ 100 mls/hr IV DAILY [facility] Stop: 02/10/18 10:01 Last Admin: 02/07/18 13:05 Dose: 100 mls/hr Piperacillin Sod/Tazobactam (Sod 2.25 gm/ Sodium Chloride) 100 mls @ 100 mls/ hr IVPB Q6 [facility] PRN Reason: Protocol Last Admin: 02/08/18 04:06 Dose: 100 mls/hr Lactobacillus Acidophilus (Bacid Acidophilus) 1 cap PO BID [facility] Last Admin: 02/08/18 09:19 Dose: 1 cap Magnesium Hydroxide (Milk Of Magnesia) 30 ml PO HS PRN PRN Reason: Constipation Last Admin: 02/02/18 21:33 Dose: 30 ml Memantine (Namenda) 5 mg PO BID [facility] Last Admin: 02/08/18 09:20 Dose: 5 mg Methimazole (Tapazole) 5 mg PO DAILY [facility] Last Admin: 02/08/18 09:20 Dose: 5 mg Miconazole Nitrate (Critic-Aid Clear Af) 1 applic TOP BID [facility] Last Admin: 02/08/18 09:22 Dose: 1 applic Petrolatum (Desitin Maximum Strength Topical 40% Oint) 1 applic TOP QSHIFT [facility] Last Admin: 02/04/18 09:36 Dose: 1 applic Risperidone (Risperidone Odt 0.25mg) 0.25 mg PO Q12 PRN PRN Reason: Psychosis Last Admin: 02/08/18 09:20 Dose: 0.25 mg - Labs Labs: 02/08/18 06:30 02/08/18 06:30 PT 13.7 Seconds (9.8-13.1) H 02/06/18 06:00 INR 1.2 (0.9-1.2) 02/06/18 06:00 APTT 26.5 Seconds (25.6-37.1) 02/06/18 06:00 - Constitutional Appears: Well, Non-toxic, No Acute Distress - Extremities Exam Additional comments: Vasc: DP pulses and PT pulses nonpalpable, +2 pitting edema to bilateral LE, TG cool to cool, CFT delayed to digits Neuro: Epicritic and protective sensation grossly intact bilaterally Derm: Multiple chronic, 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 All blisters continue to weep serous fluid. Lanced blister is noted to lateral aspect of L plantar heel. Multiple ulcerations noted to the entire lower extremity with mixture of fibrotic/ necrotic wound base: Erythema to the entire LE R>L, malodorous, all sites (-) for purulence, fluctuance, probe to bone, tunneling or undermining. See below: RIGHT- Necrotic right heel eschar unstagable with no drainage noted. Ulceration noted measuring 7cm x 6cm x 0.1cm to posterior right leg mid calf with multiple vesicles noted to the medial aspect of the leg. Wound base has become more necrotic in nature, odorous, erythema has slightly improved, no tunneling, no probe to bone or tendon exposed. Ulcerations to dorsum of right digits 1, 2, 3, 4 with necrotic base, nail plate from nail bed of digits right 2, 3, 4 are absent, wound bed has become more necrotic LEFT- Lysed blister site with superficial ulceration measuring 4cm x 1.5cm x 0.1cm noted to anteromedial left leg. Lysed blister noted to the left heel. Granular in nature. Ulceration site noted to dorsum of L foot with wound base 100% fibrotic, measuring 4cm x 4.5cm x 0.2cm. Jennifer wound exhibits epithelization with healthy pink skin edges noted to dorsal left foot ulcer site. No malodor present today, no fluctuance, no probe to bone, no tunneling or no undermining. Ulcerations to distal and dorsum of the left digits 1 and 2 with fibrotic base and macerated periwound. Ortho: Sara's sign negative B/L. All ulceration sites are tender to palpation. No other gross musculoskeletal deformities noted - Neurological Exam Neurological Exam: Alert, Awake, Oriented x3 - Psychiatric Exam Psychiatric exam: Normal Affect, Normal Mood Assessment and Plan - Assessment and Plan (Free Text) Assessment: 77 year old non compliant female patient with lower extremity cellulitis with lower extremity non healing partial thickness and unstageable ulcerations 2/2 multiple etiologies including DM, PVD, and swelling- swelling and erythema has decreased, ulcerations to LE becoming more necrotic in nature Plan: Patient seen and evaluated at bedside with attending Dr. 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
--- NOTE | 2018-02-08 12:53 | CP.PCM.PN ---
Subjective - Date & Time of Evaluation Date of Evaluation: 02/08/18 Time of Evaluation: 12:30 - Subjective Subjective: NO CHEST PAIN OR SOB Objective - Vital Signs/Intake and Output Vital Signs (last 24 hours): Temp Pulse Resp BP Pulse Ox 98.1 F 96 H 20 132/70 93 L 02/08/18 08:28 02/08/18 08:28 02/08/18 08:28 02/08/18 08:28 02/08/18 08:28 - Medications Medications: Current Medications Acetaminophen (Tylenol 325mg Tab) 650 mg PO Q4 PRN PRN Reason: Pain, Mild (1-3) Last Admin: 02/07/18 03:14 Dose: 650 mg Acetaminophen (Tylenol 325mg Tab) 650 mg PO Q4 PRN PRN Reason: TEMP >100 Bacitracin (Bacitracin Oint) 1 applic TOP DAILY [facility] Last Admin: 02/08/18 09:22 Dose: 1 applic Bisacodyl (Dulcolax) 10 mg [place] DAILY PRN PRN Reason: Constipation Ciprofloxacin (Cipro) 250 mg PO Q12 [facility] PRN Reason: Protocol Last Admin: 02/08/18 09:19 Dose: 250 mg Clopidogrel Bisulfate (Plavix) 75 mg PO DAILY [facility] Last Admin: 02/08/18 09:19 Dose: 75 mg Docusate Sodium (Colace) 100 mg PO DAILY [facility] Last Admin: 02/08/18 09:36 Dose: Not Given Escitalopram Oxalate (Lexapro) 5 mg PO HS [facility] Last Admin: 02/07/18 21:32 Dose: 5 mg Famotidine (Pepcid) 20 mg PO DAILY [facility] Last Admin: 02/08/18 09:20 Dose: 20 mg Ferrous Sulfate (Feosol) 325 mg PO DAILY [facility] Last Admin: 02/08/18 09:21 Dose: 325 mg Furosemide (Lasix) 20 mg PO DAILY [facility] Last Admin: 02/03/18 09:54 Dose: 20 mg Glipizide (Glucotrol Xl) 2.5 mg PO DAILY [facility] Last Admin: 02/08/18 09:20 Dose: 2.5 mg Home Med (Hydrogen Peroxide [Peroxyl Dental Rinse]) 1 appl TOP MOWEFR [facility] Hydroxyzine HCl (Atarax) 10 mg PO TID PRN PRN Reason: pruritis Last Admin: 02/08/18 09:19 Dose: 10 mg Daptomycin 400 mg/ Sodium (Chloride) 100 mls @ 100 mls/hr IV DAILY [facility] Stop: 02/10/18 10:01 Last Admin: 02/07/18 13:05 Dose: 100 mls/hr Piperacillin Sod/Tazobactam (Sod 2.25 gm/ Sodium Chloride) 100 mls @ 100 mls/ hr IVPB Q6 [facility] PRN Reason: Protocol Last Admin: 02/08/18 09:49 Dose: 100 mls/hr Lactobacillus Acidophilus (Bacid Acidophilus) 1 cap PO BID [facility] Last Admin: 02/08/18 09:19 Dose: 1 cap Magnesium Hydroxide (Milk Of Magnesia) 30 ml PO HS PRN PRN Reason: Constipation Last Admin: 02/02/18 21:33 Dose: 30 ml Memantine (Namenda) 5 mg PO BID [facility] Last Admin: 02/08/18 09:20 Dose: 5 mg Methimazole (Tapazole) 5 mg PO DAILY [facility] Last Admin: 02/08/18 09:20 Dose: 5 mg Miconazole Nitrate (Critic-Aid Clear Af) 1 applic TOP BID [facility] Last Admin: 02/08/18 09:22 Dose: 1 applic Petrolatum (Desitin Maximum Strength Topical 40% Oint) 1 applic TOP QSHIFT [facility] Last Admin: 02/04/18 09:36 Dose: 1 applic Risperidone (Risperidone Odt 0.25mg) 0.25 mg PO Q12 PRN PRN Reason: Psychosis Last Admin: 02/08/18 09:20 Dose: 0.25 mg - Labs Labs: 02/08/18 06:30 02/08/18 06:30 PT 13.7 Seconds (9.8-13.1) H 02/06/18 06:00 INR 1.2 (0.9-1.2) 02/06/18 06:00 APTT 26.5 Seconds (25.6-37.1) 02/06/18 06:00 - Respiratory Exam Respiratory Exam: Clear to Ausculation Bilateral - Cardiovascular Exam Cardiovascular Exam: REGULAR RHYTHM, +S1, +S2 - Extremities Exam Additional comments: BILATERAL LE ULCERATIONS THE TOES OF BOTH FEET ARE BECOMING GANGRENOUS - Additional Findings Additional findings: WBC 17K CR O.8 Assessment and Plan - Assessment and Plan (Free Text) Assessment: CAD HYPERTENSION SEVERE CAD TYPE 2 DM Plan: CONTINUE FUROSEMIDE, CLOPIDOGREL AND ANTIBIOTICS I SPOKE TO DR PINA TODAY AND HE PLANS ON TRYING TO DO AN INTERVENTIONAL REVASCULARIZATION PROCEDURE EARLY NEXT WEEK
--- NOTE | 2018-02-08 16:56 | CP.PCM.PN ---
Subjective - Date & Time of Evaluation Date of Evaluation: 02/08/18 Time of Evaluation: 14:25 - Subjective Subjective: Feels tired, concerned about possibility of amputation. Objective - Vital Signs/Intake and Output Vital Signs (last 24 hours): Temp Pulse Resp BP Pulse Ox 97.6 F 100 H 20 124/76 95 02/08/18 16:51 02/08/18 16:51 02/08/18 16:51 02/08/18 16:51 02/08/18 16:51 - Medications Medications: Current Medications Acetaminophen (Tylenol 325mg Tab) 650 mg PO Q4 PRN PRN Reason: Pain, Mild (1-3) Last Admin: 02/07/18 03:14 Dose: 650 mg Acetaminophen (Tylenol 325mg Tab) 650 mg PO Q4 PRN PRN Reason: TEMP >100 Bacitracin (Bacitracin Oint) 1 applic TOP DAILY [facility] Last Admin: 02/08/18 09:22 Dose: 1 applic Bisacodyl (Dulcolax) 10 mg [place] DAILY PRN PRN Reason: Constipation Ciprofloxacin (Cipro) 250 mg PO Q12 [facility] PRN Reason: Protocol Last Admin: 02/08/18 09:19 Dose: 250 mg Clopidogrel Bisulfate (Plavix) 75 mg PO DAILY [facility] Last Admin: 02/08/18 09:19 Dose: 75 mg Docusate Sodium (Colace) 100 mg PO DAILY [facility] Last Admin: 02/08/18 09:36 Dose: Not Given Escitalopram Oxalate (Lexapro) 5 mg PO HS [facility] Last Admin: 02/07/18 21:32 Dose: 5 mg Famotidine (Pepcid) 20 mg PO DAILY [facility] Last Admin: 02/08/18 09:20 Dose: 20 mg Ferrous Sulfate (Feosol) 325 mg PO DAILY [facility] Last Admin: 02/08/18 09:21 Dose: 325 mg Furosemide (Lasix) 20 mg PO DAILY [facility] Last Admin: 02/03/18 09:54 Dose: 20 mg Glipizide (Glucotrol Xl) 2.5 mg PO DAILY [facility] Last Admin: 02/08/18 09:20 Dose: 2.5 mg Home Med (Hydrogen Peroxide [Peroxyl Dental Rinse]) 1 appl TOP MOWEFR [facility] Hydroxyzine HCl (Atarax) 10 mg PO TID PRN PRN Reason: pruritis Last Admin: 02/08/18 09:19 Dose: 10 mg Daptomycin 400 mg/ Sodium (Chloride) 100 mls @ 100 mls/hr IV DAILY [facility] Stop: 02/10/18 10:01 Last Admin: 02/07/18 13:05 Dose: 100 mls/hr Piperacillin Sod/Tazobactam (Sod 2.25 gm/ Sodium Chloride) 100 mls @ 100 mls/ hr IVPB Q6 [facility] PRN Reason: Protocol Last Admin: 02/08/18 09:49 Dose: 100 mls/hr Lactobacillus Acidophilus (Bacid Acidophilus) 1 cap PO BID [facility] Last Admin: 02/08/18 09:19 Dose: 1 cap Magnesium Hydroxide (Milk Of Magnesia) 30 ml PO HS PRN PRN Reason: Constipation Last Admin: 02/02/18 21:33 Dose: 30 ml Memantine (Namenda) 5 mg PO BID [facility] Last Admin: 02/08/18 09:20 Dose: 5 mg Methimazole (Tapazole) 5 mg PO DAILY [facility] Last Admin: 02/08/18 09:20 Dose: 5 mg Miconazole Nitrate (Critic-Aid Clear Af) 1 applic TOP BID [facility] Last Admin: 02/08/18 09:22 Dose: 1 applic Petrolatum (Desitin Maximum Strength Topical 40% Oint) 1 applic TOP QSHIFT [facility] Last Admin: 02/04/18 09:36 Dose: 1 applic Risperidone (Risperidone Odt 0.25mg) 0.25 mg PO Q12 PRN PRN Reason: Psychosis Last Admin: 02/08/18 09:20 Dose: 0.25 mg - Labs Labs: 02/08/18 06:30 02/08/18 06:30 PT 13.7 Seconds (9.8-13.1) H 02/06/18 06:00 INR 1.2 (0.9-1.2) 02/06/18 06:00 APTT 26.5 Seconds (25.6-37.1) 02/06/18 06:00 - Head Exam Head Exam: ATRAUMATIC - Eye Exam Eye Exam: Normal appearance - ENT Exam ENT Exam: Mucous Membranes Dry - Respiratory Exam Respiratory Exam: NORMAL BREATHING PATTERN - Cardiovascular Exam Cardiovascular Exam: +S1, +S2 - GI/Abdominal Exam GI & Abdominal Exam: Normal Bowel Sounds - Extremities Exam Additional comments: B/L LE bandages Assessment and Plan (1) Anemia Assessment & Plan: anemia of chronic disease and renal disease s/p Procrit and PRBC transfusion will redose Procrit to maintain Hgb ~10-11 Status: Acute (2) Leukocytosis Assessment & Plan: improving on antibiotics Status: Acute
--- NOTE | 2018-02-08 16:57 | CP.PCM.PN ---
Subjective - Date & Time of Evaluation Date of Evaluation: 02/07/18 Time of Evaluation: 19:00 - Subjective Subjective: Has pain in legs Objective - Vital Signs/Intake and Output Vital Signs (last 24 hours): Temp Pulse Resp BP Pulse Ox 97.6 F 100 H 20 124/76 95 02/08/18 16:51 02/08/18 16:51 02/08/18 16:51 02/08/18 16:51 02/08/18 16:51 - Medications Medications: Current Medications Acetaminophen (Tylenol 325mg Tab) 650 mg PO Q4 PRN PRN Reason: Pain, Mild (1-3) Last Admin: 02/07/18 03:14 Dose: 650 mg Acetaminophen (Tylenol 325mg Tab) 650 mg PO Q4 PRN PRN Reason: TEMP >100 Bacitracin (Bacitracin Oint) 1 applic TOP DAILY [facility] Last Admin: 02/08/18 09:22 Dose: 1 applic Bisacodyl (Dulcolax) 10 mg [place] DAILY PRN PRN Reason: Constipation Ciprofloxacin (Cipro) 250 mg PO Q12 [facility] PRN Reason: Protocol Last Admin: 02/08/18 09:19 Dose: 250 mg Clopidogrel Bisulfate (Plavix) 75 mg PO DAILY [facility] Last Admin: 02/08/18 09:19 Dose: 75 mg Docusate Sodium (Colace) 100 mg PO DAILY [facility] Last Admin: 02/08/18 09:36 Dose: Not Given Escitalopram Oxalate (Lexapro) 5 mg PO HS [facility] Last Admin: 02/07/18 21:32 Dose: 5 mg Famotidine (Pepcid) 20 mg PO DAILY [facility] Last Admin: 02/08/18 09:20 Dose: 20 mg Ferrous Sulfate (Feosol) 325 mg PO DAILY [facility] Last Admin: 02/08/18 09:21 Dose: 325 mg Furosemide (Lasix) 20 mg PO DAILY [facility] Last Admin: 02/03/18 09:54 Dose: 20 mg Glipizide (Glucotrol Xl) 2.5 mg PO DAILY [facility] Last Admin: 02/08/18 09:20 Dose: 2.5 mg Home Med (Hydrogen Peroxide [Peroxyl Dental Rinse]) [facility] appl [facility] Hydroxyzine HCl (Atarax) 10 mg PO TID PRN PRN Reason: pruritis Last Admin: 02/08/18 09:19 Dose: 10 mg Daptomycin 400 mg/ Sodium (Chloride) 100 mls @ 100 mls/hr IV DAILY [facility] Stop: 02/10/18 10:01 Last Admin: 02/07/18 13:05 Dose: 100 mls/hr Piperacillin Sod/Tazobactam (Sod 2.25 gm/ Sodium Chloride) 100 mls @ 100 mls/ hr IVPB Q6 [facility] PRN Reason: Protocol Last Admin: 02/08/18 09:49 Dose: 100 mls/hr Lactobacillus Acidophilus (Bacid Acidophilus) 1 cap PO BID [facility] Last Admin: 02/08/18 09:19 Dose: 1 cap Magnesium Hydroxide (Milk Of Magnesia) 30 ml PO HS PRN PRN Reason: Constipation Last Admin: 02/02/18 21:33 Dose: 30 ml Memantine (Namenda) 5 mg PO BID [facility] Last Admin: 02/08/18 09:20 Dose: 5 mg Methimazole (Tapazole) 5 mg PO DAILY [facility] Last Admin: 02/08/18 09:20 Dose: 5 mg Miconazole Nitrate (Critic-Aid Clear Af) 1 applic TOP BID [facility] Last Admin: 02/08/18 09:22 Dose: 1 applic Petrolatum (Desitin Maximum Strength Topical 40% Oint) 1 applic TOP QSHIFT [facility] Last Admin: 02/04/18 09:36 Dose: 1 applic Risperidone (Risperidone Odt 0.25mg) 0.25 mg PO Q12 PRN PRN Reason: Psychosis Last Admin: 02/08/18 09:20 Dose: 0.25 mg - Labs Labs: 02/08/18 06:30 02/08/18 06:30 PT 13.7 Seconds (9.8-13.1) H 02/06/18 06:00 INR 1.2 (0.9-1.2) 02/06/18 06:00 APTT 26.5 Seconds (25.6-37.1) 02/06/18 06:00 - Head Exam Head Exam: ATRAUMATIC - Eye Exam Eye Exam: Normal appearance - ENT Exam ENT Exam: Mucous Membranes Dry - Respiratory Exam Respiratory Exam: NORMAL BREATHING PATTERN - Cardiovascular Exam Cardiovascular Exam: +S1, +S2 - GI/Abdominal Exam GI & Abdominal Exam: Normal Bowel Sounds Assessment and Plan (1) Anemia Assessment & Plan: anemia of chronic disease and renal disease s/p Procrit and PRBC transfusion Status: Acute (2) Leukocytosis Assessment & Plan: improving on antibiotics Status: Acute
--- NOTE | 2018-02-09 08:14 | CP.PCM.PN ---
Subjective - Date & Time of Evaluation Date of Evaluation: 02/09/18 Time of Evaluation: 06:40 - Subjective Subjective: Surgery- Dr. Woods Patient seen and examined at bedside. bilateral lower extremity dressing in place. No bleeding/strikethrough Objective - Vital Signs/Intake and Output Vital Signs (last 24 hours): Temp Pulse Resp BP Pulse Ox 97.6 F 100 H 20 131/68 95 02/09/18 00:39 02/09/18 00:39 02/09/18 00:39 02/09/18 00:39 02/09/18 00:39 - Medications Medications: Current Medications Acetaminophen (Tylenol 325mg Tab) 650 mg PO Q4 PRN PRN Reason: Pain, Mild (1-3) Last Admin: 02/07/18 03:14 Dose: 650 mg Acetaminophen (Tylenol 325mg Tab) 650 mg PO Q4 PRN PRN Reason: TEMP >100 Bacitracin (Bacitracin Oint) 1 applic TOP DAILY [facility] Last Admin: 02/08/18 09:22 Dose: 1 applic Bisacodyl (Dulcolax) 10 mg [place] DAILY PRN PRN Reason: Constipation Ciprofloxacin (Cipro) 250 mg PO Q12 [facility] PRN Reason: Protocol Last Admin: 02/08/18 21:29 Dose: 250 mg Clopidogrel Bisulfate (Plavix) 75 mg PO DAILY [facility] Last Admin: 02/08/18 09:19 Dose: 75 mg Docusate Sodium (Colace) 100 mg PO DAILY [facility] Last Admin: 02/08/18 09:36 Dose: Not Given Epoetin Eduardo (Procrit) 20,000 unit SC ONCE ONE Stop: 02/10/18 09:01 Escitalopram Oxalate (Lexapro) 5 mg PO HS [facility] Last Admin: 02/08/18 21:29 Dose: 5 mg Famotidine (Pepcid) 20 mg PO DAILY [facility] Last Admin: 02/08/18 09:20 Dose: 20 mg Ferrous Sulfate (Feosol) 325 mg PO DAILY [facility] Last Admin: 02/08/18 09:21 Dose: 325 mg Furosemide (Lasix) 20 mg PO DAILY [facility] Last Admin: 02/03/18 09:54 Dose: 20 mg Glipizide (Glucotrol Xl) 2.5 mg PO DAILY [facility] Last Admin: 02/08/18 09:20 Dose: 2.5 mg Home Med (Hydrogen Peroxide [Peroxyl Dental Rinse]) 1 appl TOP MOWEFR [facility] Hydroxyzine HCl (Atarax) 10 mg PO TID PRN PRN Reason: pruritis Last Admin: 02/08/18 09:19 Dose: 10 mg Daptomycin 400 mg/ Sodium (Chloride) 100 mls @ 100 mls/hr IV DAILY [facility] Stop: 02/10/18 10:01 Last Admin: 02/08/18 18:17 Dose: 100 mls/hr Piperacillin Sod/Tazobactam (Sod 2.25 gm/ Sodium Chloride) 100 mls @ 100 mls/ hr IVPB Q6 [facility] PRN Reason: Protocol Last Admin: 02/09/18 03:41 Dose: 100 mls/hr Lactobacillus Acidophilus (Bacid Acidophilus) 1 cap PO BID [facility] Last Admin: 02/08/18 18:25 Dose: 1 cap Magnesium Hydroxide (Milk Of Magnesia) 30 ml PO HS PRN PRN Reason: Constipation Last Admin: 02/02/18 21:33 Dose: 30 ml Memantine (Namenda) 5 mg PO BID [facility] Last Admin: 02/08/18 18:25 Dose: 5 mg Methimazole (Tapazole) 5 mg PO DAILY [facility] Last Admin: 02/08/18 09:20 Dose: 5 mg Miconazole Nitrate (Critic-Aid Clear Af) 1 applic TOP BID [facility] Last Admin: 02/08/18 18:20 Dose: 1 applic Petrolatum (Desitin Maximum Strength Topical 40% Oint) 1 applic TOP QSHIFT [facility] Last Admin: 02/04/18 09:36 Dose: 1 applic Risperidone (Risperidone Odt 0.25mg) 0.25 mg PO Q12 PRN PRN Reason: Psychosis Last Admin: 02/08/18 09:20 Dose: 0.25 mg - Labs Labs: 02/08/18 06:30 02/08/18 06:30 PT 13.7 Seconds (9.8-13.1) H 02/06/18 06:00 INR 1.2 (0.9-1.2) 02/06/18 06:00 APTT 26.5 Seconds (25.6-37.1) 02/06/18 06:00 - Constitutional Appears: Unkempt, Older Than Stated Age - Head Exam Head Exam: ATRAUMATIC - Eye Exam Eye Exam: EOMI. absent: Scleral icterus - ENT Exam ENT Exam: Mucous Membranes Moist - Respiratory Exam Respiratory Exam: NORMAL BREATHING PATTERN. absent: Accessory Muscle Use, Respiratory Distress - Cardiovascular Exam Cardiovascular Exam: +S1, +S2. absent: Bradycardia, Tachycardia - Extremities Exam Additional comments: malodorous, minimal discharge bilaterally LE dressing wrapped, clean intact - Neurological Exam Neurological Exam: Alert, Awake - Psychiatric Exam Psychiatric exam: Normal Affect - Skin Skin Exam: Intact, Warm Assessment and Plan - Assessment and Plan (Free Text) Assessment: 77F w/ bilateral LE chronic non-healing. Luekocytosis improving on IV Abx Plan: - Plan for cardio intervention angio on Saturday - will await final results of intervnetion - c/w IVAbx - local wound care - no acute surgical intervention at this time - discussed w/ Dr. Woods Surgical attending PGY1
[2018-02-09] MEDS: Critic-Aid Clear AF TOP SCH ×2 (10:09→16:46)
[2018-02-09] MEDS: Bacitracin OINT 15GM TOP SCH (10:09)
[2018-02-09] MEDS: GlipiZIDE 2.5 mg SR Tab PO SCH (10:18)
[2018-02-09] MEDS: methIMAzole 5 MG TAB PO SCH (10:18)
[2018-02-09] MEDS: RISPERIDONE 0.25 MG ODT PO PRN (10:19)
[2018-02-09] MEDS: Lactobacillus Acidophilus 500 MU Cap PO SCH ×2 (10:34→16:46)
--- NOTE | 2018-02-09 13:03 | CP.PCM.PN ---
Subjective - Date & Time of Evaluation Date of Evaluation: 02/09/18 Time of Evaluation: 09:00 - Subjective Subjective: afeb on IV antibotics WBC trending down for interventional revascularization Saturday cont rx a sper Dr Berrios Objective - Vital Signs/Intake and Output Vital Signs (last 24 hours): Temp Pulse Resp BP Pulse Ox 97.6 F 101 H 20 120/71 93 L 02/09/18 09:04 02/09/18 09:04 02/09/18 09:04 02/09/18 09:04 02/09/18 09:04 - Medications Medications: Current Medications Acetaminophen (Tylenol 325mg Tab) 650 mg PO Q4 PRN PRN Reason: Pain, Mild (1-3) Last Admin: 02/07/18 03:14 Dose: 650 mg Acetaminophen (Tylenol 325mg Tab) 650 mg PO Q4 PRN PRN Reason: TEMP >100 Bacitracin (Bacitracin Oint) 1 applic TOP DAILY [facility] Last Admin: 02/09/18 10:09 Dose: 1 applic Bisacodyl (Dulcolax) 10 mg [place] DAILY PRN PRN Reason: Constipation Ciprofloxacin (Cipro) 250 mg PO Q12 [facility] PRN Reason: Protocol Last Admin: 02/09/18 10:18 Dose: 250 mg Clopidogrel Bisulfate (Plavix) 75 mg PO DAILY [facility] Last Admin: 02/09/18 10:18 Dose: 75 mg Docusate Sodium (Colace) 100 mg PO DAILY [facility] Last Admin: 02/09/18 10:29 Dose: Not Given Epoetin Eduardo (Procrit) 20,000 unit SC ONCE ONE Stop: 02/10/18 09:01 Escitalopram Oxalate (Lexapro) 5 mg PO HS [facility] Last Admin: 02/08/18 21:29 Dose: 5 mg Famotidine (Pepcid) 20 mg PO DAILY [facility] Last Admin: 02/09/18 10:19 Dose: 20 mg Ferrous Sulfate (Feosol) 325 mg PO DAILY [facility] Last Admin: 02/09/18 10:17 Dose: 325 mg Furosemide (Lasix) 20 mg PO DAILY [facility] Last Admin: 02/03/18 09:54 Dose: 20 mg Glipizide (Glucotrol Xl) 2.5 mg PO DAILY [facility] Last Admin: 02/09/18 10:18 Dose: 2.5 mg Home Med (Hydrogen Peroxide [Peroxyl Dental Rinse]) 1 appl TOP MOWEFR [facility] Hydroxyzine HCl (Atarax) 10 mg PO TID PRN PRN Reason: pruritis Last Admin: 02/09/18 10:18 Dose: 10 mg Daptomycin 400 mg/ Sodium (Chloride) 100 mls @ 100 mls/hr IV DAILY [facility] Stop: 02/10/18 10:01 Last Admin: 02/08/18 18:17 Dose: 100 mls/hr Lactobacillus Acidophilus (Bacid Acidophilus) 1 cap PO BID [facility] Last Admin: 02/09/18 10:34 Dose: 1 cap Magnesium Hydroxide (Milk Of Magnesia) 30 ml PO HS PRN PRN Reason: Constipation Last Admin: 02/02/18 21:33 Dose: 30 ml Memantine (Namenda) 5 mg PO BID [facility] Last Admin: 02/09/18 10:19 Dose: 5 mg Methimazole (Tapazole) 5 mg PO DAILY [facility] Last Admin: 02/09/18 10:18 Dose: 5 mg Miconazole Nitrate (Critic-Aid Clear Af) 1 applic TOP BID [facility] Last Admin: 02/09/18 10:09 Dose: 1 applic Petrolatum (Desitin Maximum Strength Topical 40% Oint) 1 applic TOP QSHIFT [facility] Last Admin: 02/04/18 09:36 Dose: 1 applic Risperidone (Risperidone Odt 0.25mg) 0.25 mg PO Q12 PRN PRN Reason: Psychosis Last Admin: 02/09/18 10:19 Dose: 0.25 mg - Labs Labs: 02/08/18 06:30 02/08/18 06:30 PT 13.7 Seconds (9.8-13.1) H 02/06/18 06:00 INR 1.2 (0.9-1.2) 02/06/18 06:00 APTT 26.5 Seconds (25.6-37.1) 02/06/18 06:00 - Constitutional Appears: Confused, Chronically Ill - Head Exam Head Exam: NORMOCEPHALIC - Eye Exam Eye Exam: PERRL - ENT Exam ENT Exam: Mucous Membranes Dry - Neck Exam Neck Exam: absent: Lymphadenopathy - Respiratory Exam Respiratory Exam: Decreased Breath Sounds - Cardiovascular Exam Cardiovascular Exam: REGULAR RHYTHM - GI/Abdominal Exam GI & Abdominal Exam: Distended, Soft, Diminished Bowel Sounds - Rectal Exam Rectal Exam: Deferred - Exam Exam: NORMAL INSPECTION - Extremities Exam Extremities Exam: Pedal Edema Additional comments: wounds same - Back Exam Back Exam: absent: CVA tenderness (L), CVA tenderness (R) - Neurological Exam Neurological Exam: Altered - Psychiatric Exam Psychiatric exam: Normal Mood - Skin Skin Exam: Dry Assessment and Plan (1) Cellulitis, leg Status: Acute (2) PVD (peripheral vascular disease) Status: Acute (3) Sepsis Status: Acute - Assessment and Plan (Free Text) Assessment: afeb on IV antibotics WBC trending down for interventional revascularization Saturday cont rx a sper Dr Berrios
--- NOTE | 2018-02-09 13:48 | CP.PCM.PN ---
Subjective - Date & Time of Evaluation Date of Evaluation: 02/09/18 Time of Evaluation: 13:44 - Subjective Subjective: Podiatry Progress Note - Dr. Briseno 77 year old female seen and evaluated for bilateral lower extremity ulcerations with cellulitis. Patient appears to be resting in bed; AAOx3 and in NAD. Expresses pain with dressing change. Reports that she does not want to change the dressing today, after explaining why the dressing change is important, patient still denies. Denies F/N/V/C/SOB/CP. No other pedal complains at this time. Objective - Vital Signs/Intake and Output Vital Signs (last 24 hours): Temp Pulse Resp BP Pulse Ox 97.6 F 101 H 20 120/71 93 L 02/09/18 09:04 02/09/18 09:04 02/09/18 09:04 02/09/18 09:04 02/09/18 09:04 - Medications Medications: Current Medications Acetaminophen (Tylenol 325mg Tab) 650 mg PO Q4 PRN PRN Reason: Pain, Mild (1-3) Last Admin: 02/07/18 03:14 Dose: 650 mg Acetaminophen (Tylenol 325mg Tab) 650 mg PO Q4 PRN PRN Reason: TEMP >100 Bacitracin (Bacitracin Oint) 1 applic TOP DAILY [facility] Last Admin: 02/09/18 10:09 Dose: 1 applic Bisacodyl (Dulcolax) 10 mg [place] DAILY PRN PRN Reason: Constipation Ciprofloxacin (Cipro) 250 mg PO Q12 [facility] PRN Reason: Protocol Last Admin: 02/09/18 10:18 Dose: 250 mg Clopidogrel Bisulfate (Plavix) 75 mg PO DAILY [facility] Last Admin: 02/09/18 10:18 Dose: 75 mg Docusate Sodium (Colace) 100 mg PO DAILY [facility] Last Admin: 02/09/18 10:29 Dose: Not Given Epoetin Eduardo (Procrit) 20,000 unit SC ONCE ONE Stop: 02/10/18 09:01 Escitalopram Oxalate (Lexapro) 5 mg PO HS [facility] Last Admin: 02/08/18 21:29 Dose: 5 mg Famotidine (Pepcid) 20 mg PO DAILY [facility] Last Admin: 02/09/18 10:19 Dose: 20 mg Ferrous Sulfate (Feosol) 325 mg PO DAILY [facility] Last Admin: 02/09/18 10:17 Dose: 325 mg Furosemide (Lasix) 20 mg PO DAILY [facility] Last Admin: 02/03/18 09:54 Dose: 20 mg Glipizide (Glucotrol Xl) 2.5 mg PO DAILY [facility] Last Admin: 02/09/18 10:18 Dose: 2.5 mg Home Med (Hydrogen Peroxide [Peroxyl Dental Rinse]) 1 appl TOP MOWEFR [facility] Hydroxyzine HCl (Atarax) 10 mg PO TID PRN PRN Reason: pruritis Last Admin: 02/09/18 10:18 Dose: 10 mg Daptomycin 400 mg/ Sodium (Chloride) 100 mls @ 100 mls/hr IV DAILY [facility] Stop: 02/10/18 10:01 Last Admin: 02/08/18 18:17 Dose: 100 mls/hr Lactobacillus Acidophilus (Bacid Acidophilus) 1 cap PO BID [facility] Last Admin: 02/09/18 10:34 Dose: 1 cap Magnesium Hydroxide (Milk Of Magnesia) 30 ml PO HS PRN PRN Reason: Constipation Last Admin: 02/02/18 21:33 Dose: 30 ml Memantine (Namenda) 5 mg PO BID [facility] Last Admin: 02/09/18 10:19 Dose: 5 mg Methimazole (Tapazole) 5 mg PO DAILY [facility] Last Admin: 02/09/18 10:18 Dose: 5 mg Miconazole Nitrate (Critic-Aid Clear Af) 1 applic TOP BID [facility] Last Admin: 02/09/18 10:09 Dose: 1 applic Petrolatum (Desitin Maximum Strength Topical 40% Oint) 1 applic TOP QSHIFT [facility] Last Admin: 02/04/18 09:36 Dose: 1 applic Risperidone (Risperidone Odt 0.25mg) 0.25 mg PO Q12 PRN PRN Reason: Psychosis Last Admin: 02/09/18 10:19 Dose: 0.25 mg - Labs Labs: 02/08/18 06:30 02/08/18 06:30 PT 13.7 Seconds (9.8-13.1) H 02/06/18 06:00 INR 1.2 (0.9-1.2) 02/06/18 06:00 APTT 26.5 Seconds (25.6-37.1) 02/06/18 06:00 - Constitutional Appears: Well, Non-toxic, No Acute Distress - Extremities Exam Additional comments: Dressing to bilateral leg appears little loose and strikethrough noted. - Neurological Exam Neurological Exam: Alert, Awake, Oriented x3 - Psychiatric Exam Psychiatric exam: Normal Affect, Normal Mood Assessment and Plan - Assessment and Plan (Free Text) Assessment: 77 year old non compliant female patient with lower extremity cellulitis with lower extremity non healing partial thickness and unstageable ulcerations 2/2 multiple etiologies including DM, PVD, and swelling- swelling and erythema has decreased, ulcerations to LE becoming more necrotic in nature Plan: Patient seen and evaluated at bedside with attending Dr. Briseno Afebrile, leukocytosis,WBC=17.0 Wound culture of R leg (+) Serratia marcescens ID on board, continue IV abx per ID Patient denies dressing change today - Nursing order in place. 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
--- NOTE | 2018-02-09 15:38 | CP.PCM.PN ---
Subjective - Date & Time of Evaluation Date of Evaluation: 02/09/18 Time of Evaluation: 22:22 - Subjective Subjective: Creat 0.8 WBC 17k Objective - Vital Signs/Intake and Output Vital Signs (last 24 hours): Temp Pulse Resp BP Pulse Ox 97.6 F 101 H 20 120/71 93 L 02/09/18 09:04 02/09/18 09:04 02/09/18 09:04 02/09/18 09:04 02/09/18 09:04 - Medications Medications: Current Medications Acetaminophen (Tylenol 325mg Tab) 650 mg PO Q4 PRN PRN Reason: Pain, Mild (1-3) Last Admin: 02/07/18 03:14 Dose: 650 mg Acetaminophen (Tylenol 325mg Tab) 650 mg PO Q4 PRN PRN Reason: TEMP >100 Bacitracin (Bacitracin Oint) 1 applic TOP DAILY [facility] Last Admin: 02/09/18 10:09 Dose: 1 applic Bisacodyl (Dulcolax) 10 mg [place] DAILY PRN PRN Reason: Constipation Ciprofloxacin (Cipro) 250 mg PO Q12 [facility] PRN Reason: Protocol Last Admin: 02/09/18 10:18 Dose: 250 mg Clopidogrel Bisulfate (Plavix) 75 mg PO DAILY [facility] Last Admin: 02/09/18 10:18 Dose: 75 mg Docusate Sodium (Colace) 100 mg PO DAILY [facility] Last Admin: 02/09/18 10:29 Dose: Not Given Epoetin Eduardo (Procrit) 20,000 unit SC ONCE ONE Stop: 02/10/18 09:01 Escitalopram Oxalate (Lexapro) [address] [facility] Last Admin: 02/08/18 21:29 Dose: 5 mg Famotidine (Pepcid) 20 mg PO DAILY [facility] Last Admin: 02/09/18 10:19 Dose: 20 mg Ferrous Sulfate (Feosol) 325 mg PO DAILY [facility] Last Admin: 02/09/18 10:17 Dose: 325 mg Furosemide (Lasix) 20 mg PO DAILY [facility] Last Admin: 02/03/18 09:54 Dose: 20 mg Glipizide (Glucotrol Xl) 2.5 mg PO DAILY [facility] Last Admin: 02/09/18 10:18 Dose: 2.5 mg Home Med (Hydrogen Peroxide [Peroxyl Dental Rinse]) 1 appl TOP MOWEFR [facility] Hydroxyzine HCl (Atarax) 10 mg PO TID PRN PRN Reason: pruritis Last Admin: 02/09/18 10:18 Dose: 10 mg Daptomycin 400 mg/ Sodium (Chloride) 100 mls @ 100 mls/hr IV DAILY [facility] Stop: 02/10/18 10:01 Last Admin: 02/08/18 18:17 Dose: 100 mls/hr Lactobacillus Acidophilus (Bacid Acidophilus) 1 cap PO BID [facility] Last Admin: 02/09/18 10:34 Dose: 1 cap Magnesium Hydroxide (Milk Of Magnesia) 30 ml PO HS PRN PRN Reason: Constipation Last Admin: 02/02/18 21:33 Dose: 30 ml Memantine (Namenda) 5 mg PO BID [facility] Last Admin: 02/09/18 10:19 Dose: 5 mg Methimazole (Tapazole) 5 mg PO DAILY [facility] Last Admin: 02/09/18 10:18 Dose: 5 mg Miconazole Nitrate (Critic-Aid Clear Af) 1 applic TOP BID [facility] Last Admin: 02/09/18 10:09 Dose: 1 applic Petrolatum (Desitin Maximum Strength Topical 40% Oint) 1 applic TOP QSHIFT [facility] Last Admin: 02/04/18 09:36 Dose: 1 applic Risperidone (Risperidone Odt 0.25mg) 0.25 mg PO Q12 PRN PRN Reason: Psychosis Last Admin: 02/09/18 10:19 Dose: 0.25 mg - Labs Labs: 02/08/18 06:30 02/08/18 06:30 PT 13.7 Seconds (9.8-13.1) H 02/06/18 06:00 INR 1.2 (0.9-1.2) 02/06/18 06:00 APTT 26.5 Seconds (25.6-37.1) 02/06/18 06:00 - Respiratory Exam Respiratory Exam: NORMAL BREATHING PATTERN - Cardiovascular Exam Cardiovascular Exam: REGULAR RHYTHM - GI/Abdominal Exam GI & Abdominal Exam: Normal Bowel Sounds Assessment and Plan - Assessment and Plan (Free Text) Assessment: WBC and creat improved Low ext edema cellulitis Significant Arterial occlusive dx Wound cs Serratia Leg elevation IV ABX Zosyn/ Daptomycin ID Podiatry Surgery Physiatry Vascular Angiogram low ext ? Saturday ABBEY/ CKD creat improved Nephrology IVF Psychiatric dx?? Ultram?? Adj disorder with depression Psychiatry SSRI Resperidol CHF Diastolic CAD stress thalium scarring ischemia?? cardiac cath refused?? Cardiology Hx COPD L Pleural effusion Pulmonary Hx Anemia Chronic dx ASA d/c as outpt due to dec Hbg S/P Procrit transfusion NIDDM Thyroid dx
--- NOTE | 2018-02-09 22:04 | CP.PCM.PN ---
Subjective - Date & Time of Evaluation Date of Evaluation: 02/09/18 Time of Evaluation: 16:00 - Subjective Subjective: Has pain in feet. Objective - Vital Signs/Intake and Output Vital Signs (last 24 hours): Temp Pulse Resp BP Pulse Ox 98 F 87 20 131/75 95 02/09/18 16:41 02/09/18 16:41 02/09/18 16:41 02/09/18 16:41 02/09/18 16:41 - Medications Medications: Current Medications Acetaminophen (Tylenol 325mg Tab) 650 mg PO Q4 PRN PRN Reason: Pain, Mild (1-3) Last Admin: 02/07/18 03:14 Dose: 650 mg Acetaminophen (Tylenol 325mg Tab) 650 mg PO Q4 PRN PRN Reason: TEMP >100 Bacitracin (Bacitracin Oint) 1 applic TOP DAILY [facility] Last Admin: 02/09/18 10:09 Dose: 1 applic Bisacodyl (Dulcolax) 10 mg [place] DAILY PRN PRN Reason: Constipation Ciprofloxacin (Cipro) 250 mg PO Q12 [facility] PRN Reason: Protocol Last Admin: 02/09/18 21:14 Dose: 250 mg Clopidogrel Bisulfate (Plavix) 75 mg PO DAILY [facility] Last Admin: 02/09/18 10:18 Dose: 75 mg Docusate Sodium (Colace) 100 mg PO DAILY [facility] Last Admin: 02/09/18 10:29 Dose: Not Given Epoetin Eduardo (Procrit) 20,000 unit SC ONCE ONE Stop: 02/10/18 09:01 Escitalopram Oxalate (Lexapro) 5 mg PO [facility] Last Admin: 02/09/18 21:14 Dose: 5 mg Famotidine (Pepcid) 20 mg PO DAILY [facility] Last Admin: 02/09/18 10:19 Dose: 20 mg Ferrous Sulfate (Feosol) 325 mg PO DAILY [facility] Last Admin: 02/09/18 10:17 Dose: 325 mg Furosemide (Lasix) 20 mg PO DAILY [facility] Last Admin: 02/03/18 09:54 Dose: 20 mg Glipizide (Glucotrol Xl) 2.5 mg PO DAILY [facility] Last Admin: 02/09/18 10:18 Dose: 2.5 mg Home Med (Hydrogen Peroxide [Peroxyl Dental Rinse]) 1 appl TOP MOWEFR [facility] Hydroxyzine HCl (Atarax) 10 mg PO TID PRN PRN Reason: pruritis Last Admin: 02/09/18 16:55 Dose: 10 mg Daptomycin 400 mg/ Sodium (Chloride) 100 mls @ 100 mls/hr IV DAILY [facility] Stop: 02/10/18 10:01 Last Admin: 02/09/18 12:45 Dose: 100 mls/hr Lactobacillus Acidophilus (Bacid Acidophilus) 1 cap PO BID [facility] Last Admin: 02/09/18 16:46 Dose: 1 cap Magnesium Hydroxide (Milk Of Magnesia) 30 ml PO HS PRN PRN Reason: Constipation Last Admin: 02/02/18 21:33 Dose: 30 ml Memantine (Namenda) 5 mg PO BID [facility] Last Admin: 02/09/18 16:47 Dose: 5 mg Methimazole (Tapazole) 5 mg PO DAILY [facility] Last Admin: 02/09/18 10:18 Dose: 5 mg Miconazole Nitrate (Critic-Aid Clear Af) 1 applic TOP BID [facility] Last Admin: 02/09/18 16:46 Dose: 1 applic Petrolatum (Desitin Maximum Strength Topical 40% Oint) 1 applic TOP QSHIFT [facility] Last Admin: 02/04/18 09:36 Dose: 1 applic Risperidone (Risperidone Odt 0.25mg) 0.25 mg PO Q12 PRN PRN Reason: Psychosis Last Admin: 02/09/18 10:19 Dose: 0.25 mg - Labs Labs: 02/08/18 06:30 02/08/18 06:30 PT 13.7 Seconds (9.8-13.1) H 02/06/18 06:00 INR 1.2 (0.9-1.2) 02/06/18 06:00 APTT 26.5 Seconds (25.6-37.1) 02/06/18 06:00 - Head Exam Head Exam: ATRAUMATIC - Eye Exam Eye Exam: Normal appearance - ENT Exam ENT Exam: Mucous Membranes Dry - Respiratory Exam Respiratory Exam: NORMAL BREATHING PATTERN - Cardiovascular Exam Cardiovascular Exam: +S1, +S2 - GI/Abdominal Exam GI & Abdominal Exam: Normal Bowel Sounds Assessment and Plan (1) Anemia Assessment & Plan: chronic disease, renal disease s/p PRBC and Procrit Status: Acute (2) Leukocytosis Assessment & Plan: improving with antibiotics. Status: Acute
--- NOTE | 2018-02-09 23:19 | CP.PCM.PN ---
Subjective - Date & Time of Evaluation Date of Evaluation: 02/09/18 Time of Evaluation: 23:18 - Subjective Subjective: wbc count 17 k cr 0.8 intermittent pain gangrenous toes Objective - Vital Signs/Intake and Output Vital Signs (last 24 hours): Temp Pulse Resp BP Pulse Ox 98 F 87 20 131/75 95 02/09/18 16:41 02/09/18 16:41 02/09/18 16:41 02/09/18 16:41 02/09/18 16:41 - Medications Medications: Current Medications Acetaminophen (Tylenol 325mg Tab) 650 mg PO Q4 PRN PRN Reason: Pain, Mild (1-3) Last Admin: 02/07/18 03:14 Dose: 650 mg Acetaminophen (Tylenol 325mg Tab) 650 mg PO Q4 PRN PRN Reason: TEMP >100 Bacitracin (Bacitracin Oint) 1 applic TOP DAILY [facility] Last Admin: 02/09/18 10:09 Dose: 1 applic Bisacodyl (Dulcolax) 10 mg [place] DAILY PRN PRN Reason: Constipation Ciprofloxacin (Cipro) 250 mg PO Q12 [facility] PRN Reason: Protocol Last Admin: 02/09/18 21:14 Dose: 250 mg Clopidogrel Bisulfate (Plavix) 75 mg PO DAILY [facility] Last Admin: 02/09/18 10:18 Dose: 75 mg Docusate Sodium (Colace) 100 mg PO DAILY [facility] Last Admin: 02/09/18 10:29 Dose: Not Given Epoetin Eduardo (Procrit) 20,000 unit SC ONCE ONE Stop: 02/10/18 09:01 Escitalopram Oxalate (Lexapro) 5 mg PO HS [facility] Last Admin: 02/09/18 21:14 Dose: 5 mg Famotidine (Pepcid) 20 mg PO DAILY [facility] Last Admin: 02/09/18 10:19 Dose: 20 mg Ferrous Sulfate (Feosol) 325 mg PO DAILY [facility] Last Admin: 02/09/18 10:17 Dose: 325 mg Furosemide (Lasix) 20 mg PO DAILY [facility] Last Admin: 02/03/18 09:54 Dose: 20 mg Glipizide (Glucotrol Xl) 2.5 mg PO DAILY [facility] Last Admin: 02/09/18 10:18 Dose: 2.5 mg Home Med (Hydrogen Peroxide [Peroxyl Dental Rinse]) 1 appl TOP MOWEFR [facility] Hydroxyzine HCl (Atarax) 10 mg PO TID PRN PRN Reason: pruritis Last Admin: 02/09/18 16:55 Dose: 10 mg Daptomycin 400 mg/ Sodium (Chloride) 100 mls @ 100 mls/hr IV DAILY [facility] Stop: 02/10/18 10:01 Last Admin: 02/09/18 12:45 Dose: 100 mls/hr Lactobacillus Acidophilus (Bacid Acidophilus) 1 cap PO BID [facility] Last Admin: 02/09/18 16:46 Dose: 1 cap Magnesium Hydroxide (Milk Of Magnesia) 30 ml PO HS PRN PRN Reason: Constipation Last Admin: 02/02/18 21:33 Dose: 30 ml Memantine (Namenda) 5 mg PO BID [facility] Last Admin: 02/09/18 16:47 Dose: 5 mg Methimazole (Tapazole) 5 mg PO DAILY [facility] Last Admin: 02/09/18 10:18 Dose: 5 mg Miconazole Nitrate (Critic-Aid Clear Af) 1 applic TOP BID [facility] Last Admin: 02/09/18 16:46 Dose: 1 applic Petrolatum (Desitin Maximum Strength Topical 40% Oint) 1 applic TOP QSHIFT [facility] Last Admin: 02/04/18 09:36 Dose: 1 applic Risperidone (Risperidone Odt 0.25mg) 0.25 mg PO Q12 PRN PRN Reason: Psychosis Last Admin: 02/09/18 10:19 Dose: 0.25 mg - Labs Labs: 02/08/18 06:30 02/08/18 06:30 PT 13.7 Seconds (9.8-13.1) H 02/06/18 06:00 INR 1.2 (0.9-1.2) 02/06/18 06:00 APTT 26.5 Seconds (25.6-37.1) 02/06/18 06:00 - Constitutional Appears: Well - Head Exam Head Exam: ATRAUMATIC, NORMAL INSPECTION, NORMOCEPHALIC - Eye Exam Eye Exam: EOMI, Normal appearance, PERRL Pupil Exam: NORMAL ACCOMODATION, PERRL - ENT Exam ENT Exam: Mucous Membranes Moist, Normal Exam - Neck Exam Neck Exam: Full ROM, Normal Inspection. absent: Lymphadenopathy - Respiratory Exam Respiratory Exam: Clear to Ausculation Bilateral, NORMAL BREATHING PATTERN - Cardiovascular Exam Cardiovascular Exam: REGULAR RHYTHM, +S1, +S2, Murmur - GI/Abdominal Exam GI & Abdominal Exam: Soft, Normal Bowel Sounds. absent: Tenderness - Extremities Exam Extremities Exam: Full ROM, Normal Capillary Refill, Normal Inspection. 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
[2018-02-10] MEDS: Bacitracin OINT 15GM TOP SCH (08:59)
[2018-02-10] MEDS: Critic-Aid Clear AF TOP SCH ×2 (08:59→16:56)
[2018-02-10] MEDS: GlipiZIDE 2.5 mg SR Tab PO SCH (09:00)
[2018-02-10] MEDS ORDERED: Epoetin Alfa 20000 UNIT/ML Inj SC ONE (09:00)
[2018-02-10] MEDS: RISPERIDONE 0.25 MG ODT PO PRN (09:00)
[2018-02-10] MEDS: methIMAzole 5 MG TAB PO SCH (09:02)
--- NOTE | 2018-02-10 09:44 | CP.PCM.PN ---
Subjective - Date & Time of Evaluation Date of Evaluation: 02/10/18 Time of Evaluation: 09:41 - Subjective Subjective: Seated at the edge of the bed. Both lower extremities have dressings from the toes to the knees bilaterally. There appears to be some serous fluid drainage noted on the Chux pad on the floor. Vital signs have remained stable. From a respiratory standpoint she offers no complaints, nor does she have any cough or shortness of breath. Further interventions are dependent on her vascular status. Objective - Vital Signs/Intake and Output Vital Signs (last 24 hours): Temp Pulse Resp BP Pulse Ox 97.5 F L 95 H 18 131/79 99 02/10/18 08:00 02/10/18 08:00 02/10/18 08:00 02/10/18 08:00 02/10/18 08:00 - Medications Medications: Current Medications Acetaminophen (Tylenol 325mg Tab) 650 mg PO Q4 PRN PRN Reason: Pain, Mild (1-3) Last Admin: 02/07/18 03:14 Dose: 650 mg Acetaminophen (Tylenol 325mg Tab) 650 mg PO Q4 PRN PRN Reason: TEMP >100 Bacitracin (Bacitracin Oint) 1 applic TOP DAILY [facility] Last Admin: 02/10/18 08:59 Dose: 1 applic Bisacodyl (Dulcolax) 10 mg [place] DAILY PRN PRN Reason: Constipation Ciprofloxacin (Cipro) 250 mg PO Q12 [facility] PRN Reason: Protocol Last Admin: 02/10/18 09:01 Dose: 250 mg Clopidogrel Bisulfate (Plavix) 75 mg PO DAILY [facility] Last Admin: 02/10/18 09:00 Dose: 75 mg Docusate Sodium (Colace) 100 mg PO DAILY [facility] Last Admin: 02/09/18 10:29 Dose: Not Given Escitalopram Oxalate (Lexapro) 5 mg PO HS [facility] Last Admin: 02/09/18 21:14 Dose: 5 mg Famotidine (Pepcid) 20 mg PO DAILY [facility] Last Admin: 02/10/18 09:02 Dose: 20 mg Ferrous Sulfate (Feosol) 325 mg PO DAILY [facility] Last Admin: 02/10/18 09:02 Dose: 325 mg Furosemide (Lasix) 20 mg PO DAILY [facility] Last Admin: 02/03/18 09:54 Dose: 20 mg Glipizide (Glucotrol Xl) 2.5 mg PO DAILY [facility] Last Admin: 02/10/18 09:00 Dose: 2.5 mg Home Med (Hydrogen Peroxide [Peroxyl Dental Rinse]) 1 appl TOP MOWEFR [facility] Hydroxyzine HCl (Atarax) 10 mg PO TID PRN PRN Reason: pruritis Last Admin: 02/10/18 09:00 Dose: 10 mg Daptomycin 400 mg/ Sodium (Chloride) 100 mls @ 100 mls/hr IV DAILY [facility] Stop: 02/10/18 10:01 Last Admin: 02/09/18 12:45 Dose: 100 mls/hr Lactobacillus Acidophilus (Bacid Acidophilus) 1 cap PO BID [facility] Last Admin: 02/09/18 16:46 Dose: 1 cap Magnesium Hydroxide (Milk Of Magnesia) 30 ml PO HS PRN PRN Reason: Constipation Last Admin: 02/02/18 21:33 Dose: 30 ml Memantine (Namenda) 5 mg PO BID [facility] Last Admin: 02/10/18 09:00 Dose: 5 mg Methimazole (Tapazole) 5 mg PO DAILY [facility] Last Admin: 02/10/18 09:02 Dose: 5 mg Miconazole Nitrate (Critic-Aid Clear Af) 1 applic TOP BID [facility] Last Admin: 02/10/18 08:59 Dose: 1 applic Petrolatum (Desitin Maximum Strength Topical 40% Oint) 1 applic TOP QSHIFT [facility] Last Admin: 02/04/18 09:36 Dose: 1 applic Risperidone (Risperidone Odt 0.25mg) 0.25 mg PO Q12 PRN PRN Reason: Psychosis Last Admin: 02/10/18 09:00 Dose: 0.25 mg - Labs Labs: 02/08/18 06:30 02/08/18 06:30 PT 13.7 Seconds (9.8-13.1) H 02/06/18 06:00 INR 1.2 (0.9-1.2) 02/06/18 06:00 APTT 26.5 Seconds (25.6-37.1) 02/06/18 06:00
[2018-02-10] MEDS: Lactobacillus Acidophilus 500 MU Cap PO SCH ×2 (09:48→17:00)
--- NOTE | 2018-02-10 10:12 | CP.PCM.PN ---
Subjective - Date & Time of Evaluation Date of Evaluation: 02/10/18 Time of Evaluation: 07:00 - Subjective Subjective: afeb on IV antibotics WBC trending down for interventional revascularization Objective - Vital Signs/Intake and Output Vital Signs (last 24 hours): Temp Pulse Resp BP Pulse Ox 97.5 F L 95 H 18 131/79 99 02/10/18 08:00 02/10/18 08:00 02/10/18 08:00 02/10/18 08:00 02/10/18 08:00 - Medications Medications: Current Medications Acetaminophen (Tylenol 325mg Tab) 650 mg PO Q4 PRN PRN Reason: Pain, Mild (1-3) Last Admin: 02/07/18 03:14 Dose: 650 mg Acetaminophen (Tylenol 325mg Tab) 650 mg PO Q4 PRN PRN Reason: TEMP >100 Bacitracin (Bacitracin Oint) 1 applic TOP DAILY [facility] Last Admin: 02/10/18 08:59 Dose: 1 applic Bisacodyl (Dulcolax) 10 mg [place] DAILY PRN PRN Reason: Constipation Ciprofloxacin (Cipro) 250 mg PO Q12 [facility] PRN Reason: Protocol Last Admin: 02/10/18 09:01 Dose: 250 mg Clopidogrel Bisulfate (Plavix) 75 mg PO DAILY [facility] Last Admin: 02/10/18 09:00 Dose: 75 mg Docusate Sodium (Colace) 100 mg PO DAILY [facility] Last Admin: 02/09/18 10:29 Dose: Not Given Escitalopram Oxalate (Lexapro) 5 mg PO HS [facility] Last Admin: 02/09/18 21:14 Dose: 5 mg Famotidine (Pepcid) 20 mg PO DAILY [facility] Last Admin: 02/10/18 09:02 Dose: 20 mg Ferrous Sulfate (Feosol) 325 mg PO DAILY [facility] Last Admin: 02/10/18 09:02 Dose: 325 mg Furosemide (Lasix) 20 mg PO DAILY [facility] Last Admin: 02/03/18 09:54 Dose: 20 mg Glipizide (Glucotrol Xl) 2.5 mg PO DAILY [facility] Last Admin: 02/10/18 09:00 Dose: 2.5 mg Home Med (Hydrogen Peroxide [Peroxyl Dental Rinse]) 1 appl TOP MOWEFR [facility] Hydroxyzine HCl (Atarax) 10 mg PO TID PRN PRN Reason: pruritis Last Admin: 02/10/18 09:00 Dose: 10 mg Lactobacillus Acidophilus (Bacid Acidophilus) 1 cap PO BID [facility] Last Admin: 02/09/18 16:46 Dose: 1 cap Magnesium Hydroxide (Milk Of Magnesia) 30 ml PO HS PRN PRN Reason: Constipation Last Admin: 02/02/18 21:33 Dose: 30 ml Memantine (Namenda) 5 mg PO BID [facility] Last Admin: 02/10/18 09:00 Dose: 5 mg Methimazole (Tapazole) 5 mg PO DAILY [facility] Last Admin: 02/10/18 09:02 Dose: 5 mg Miconazole Nitrate (Critic-Aid Clear Af) 1 applic TOP BID [facility] Last Admin: 02/10/18 08:59 Dose: 1 applic Petrolatum (Desitin Maximum Strength Topical 40% Oint) 1 applic TOP QSHIFT [facility] Last Admin: 02/04/18 09:36 Dose: 1 applic Risperidone (Risperidone Odt 0.25mg) 0.25 mg PO Q12 PRN PRN Reason: Psychosis Last Admin: 02/10/18 09:00 Dose: 0.25 mg - Labs Labs: 02/08/18 06:30 02/08/18 06:30 PT 13.7 Seconds (9.8-13.1) H 02/06/18 06:00 INR 1.2 (0.9-1.2) 02/06/18 06:00 APTT 26.5 Seconds (25.6-37.1) 02/06/18 06:00 - Constitutional Appears: Non-toxic, Chronically Ill - Head Exam Head Exam: NORMOCEPHALIC - Eye Exam Eye Exam: PERRL - ENT Exam ENT Exam: Mucous Membranes Dry - Neck Exam Neck Exam: absent: Lymphadenopathy - Respiratory Exam Respiratory Exam: Decreased Breath Sounds - Cardiovascular Exam Cardiovascular Exam: REGULAR RHYTHM - GI/Abdominal Exam GI & Abdominal Exam: Distended - Rectal Exam Rectal Exam: Deferred - Exam Exam: NORMAL INSPECTION - Extremities Exam Extremities Exam: absent: Pedal Edema - Back Exam Back Exam: absent: CVA tenderness (L), CVA tenderness (R) - Neurological Exam Neurological Exam: Altered - Psychiatric Exam Psychiatric exam: Depressed - Skin Additional comments: multiple ischemic ulcers with cellulitis Assessment and Plan (1) Cellulitis, leg Status: Acute (2) PVD (peripheral vascular disease) Status: Acute (3) Sepsis Status: Acute
--- NOTE | 2018-02-10 11:28 | CP.PCM.PCO ---
Assessment & Plan - Assessment and Plan (Free Text) Assessment: 77yo F with Bilateral LE chronic Non-healing wounds. Severe PVD. Plan: - Will f/u possible endovascular intervention - continue local wound care in the interim - Continue IV Abx as per ID team - No acute surgical intervention at this present time - Further recs following possible endovascular intervention and clinical response Further recs as per Dr. Chuck Quinones PGY1 surgery pager: [phone]
[2018-02-10 13:23] LABS: HEMOGLOBIN 10.6 g/dL (12.0-16.0); MEAN CELL VOLUME 80.1 fl (81.0-99.0); MEAN CORPUSCULAR HEMOGLOBIN 24.5 pg (27.0-31.0); MEAN CORPUSCULAR HGB CONC 30.6 g/dL (33.0-37.0); RBC 4.33 Mil/uL (3.80-5.20); RED CELL DISTRIBUTION WIDTH 21.2 % (11.5-14.5)
[2018-02-10 13:40] LABS: ALB/GLOB RATIO 0.7 (1.0-2.1); ALBUMIN 2.9 g/dL (3.5-5.0); ALT/SGPT 33 U/L (9-52); AST/SGOT 34 U/L (14-36); BLOOD UREA NITROGEN 27 mg/dl (7-17); CALCIUM 8.7 mg/dL (8.4-10.2); GFR AFRICAN-AMERICAN > 60; GFR NON-AFRICAN AMERICAN > 60
--- NOTE | 2018-02-10 13:46 | CP.PCM.PN ---
Subjective - Date & Time of Evaluation Date of Evaluation: 02/11/18 Time of Evaluation: 13:30 - Subjective Subjective: NO CHEST PAIN OR SOB PATIENT STATES SHE WILL DO THE LE ANGIO AND INTERVENTION BUT WANTS TO DO IT TOMORROW Objective - Vital Signs/Intake and Output Vital Signs (last 24 hours): Temp Pulse Resp BP Pulse Ox 97.5 F L 95 H 18 131/79 99 02/10/18 08:00 02/10/18 08:00 02/10/18 08:00 02/10/18 08:00 02/10/18 08:00 - Medications Medications: Current Medications Acetaminophen (Tylenol 325mg Tab) 650 mg PO Q4 PRN PRN Reason: Pain, Mild (1-3) Last Admin: 02/07/18 03:14 Dose: 650 mg Acetaminophen (Tylenol 325mg Tab) 650 mg PO Q4 PRN PRN Reason: TEMP >100 Bacitracin (Bacitracin Oint) 1 applic TOP DAILY [facility] Last Admin: 02/10/18 08:59 Dose: 1 applic Bisacodyl (Dulcolax) 10 mg [place] DAILY PRN PRN Reason: Constipation Ciprofloxacin (Cipro) 250 mg PO Q12 [facility] PRN Reason: Protocol Last Admin: 02/10/18 09:01 Dose: 250 mg Clopidogrel Bisulfate (Plavix) 75 mg PO DAILY [facility] Last Admin: 02/10/18 09:00 Dose: 75 mg Docusate Sodium (Colace) 100 mg PO DAILY [facility] Last Admin: 02/09/18 10:29 Dose: Not Given Escitalopram Oxalate (Lexapro) 5 mg PO HS [facility] Last Admin: 02/09/18 21:14 Dose: 5 mg Famotidine (Pepcid) 20 mg PO DAILY [facility] Last Admin: 02/10/18 09:02 Dose: 20 mg Ferrous Sulfate (Feosol) 325 mg PO DAILY [facility] Last Admin: 02/10/18 09:02 Dose: 325 mg Furosemide (Lasix) 20 mg PO DAILY [facility] Last Admin: 02/03/18 09:54 Dose: 20 mg Glipizide (Glucotrol Xl) 2.5 mg PO DAILY [facility] Last Admin: 02/10/18 09:00 Dose: 2.5 mg Home Med (Hydrogen Peroxide [Peroxyl Dental Rinse]) 1 appl TOP MOWEFR [facility] Hydroxyzine HCl (Atarax) 10 mg PO TID PRN PRN Reason: pruritis Last Admin: 02/10/18 09:00 Dose: 10 mg Lactobacillus Acidophilus (Bacid Acidophilus) 1 cap PO BID [facility] Last Admin: 02/09/18 16:46 Dose: 1 cap Magnesium Hydroxide (Milk Of Magnesia) 30 ml PO HS PRN PRN Reason: Constipation Last Admin: 02/02/18 21:33 Dose: 30 ml Memantine (Namenda) 5 mg PO BID [facility] Last Admin: 02/10/18 09:00 Dose: 5 mg Methimazole (Tapazole) 5 mg PO DAILY [facility] Last Admin: 02/10/18 09:02 Dose: 5 mg Miconazole Nitrate (Critic-Aid Clear Af) 1 applic TOP BID [facility] Last Admin: 02/10/18 08:59 Dose: 1 applic Petrolatum (Desitin Maximum Strength Topical 40% Oint) 1 applic TOP QSHIFT [facility] Last Admin: 02/04/18 09:36 Dose: 1 applic Risperidone (Risperidone Odt 0.25mg) 0.25 mg PO Q12 PRN PRN Reason: Psychosis Last Admin: 02/10/18 09:00 Dose: 0.25 mg - Labs Labs: 02/10/18 12:49 02/10/18 12:49 PT 13.7 Seconds (9.8-13.1) H 02/06/18 06:00 INR 1.2 (0.9-1.2) 02/06/18 06:00 APTT 26.5 Seconds (25.6-37.1) 02/06/18 06:00 - Respiratory Exam Respiratory Exam: Clear to Ausculation Bilateral - Cardiovascular Exam Cardiovascular Exam: REGULAR RHYTHM, +S1, +S2 - Extremities Exam Additional comments: NO EDEMA TOES ARE GANGRENOUS - Additional Findings Additional findings: WBC 14 CR 0.9 Assessment and Plan - Assessment and Plan (Free Text) Assessment: CAD HYPERTENSION SEVERE PAD Plan: CONTINUE ANTIBIOTICS AND CLOPIDOGREL DR PINA AND I WERE AT THE PATIENT'S BEDSIDE AND SHE WAS TOLD OF THE RISK OF LOSING HER LOWER EXTREMITIES DUE TO THE SEVERE PAD AND SHE AGREES TO GO TO [facility] [place] TOMORROW FOR AN INTERVENTIONAL PROCEDURE
--- NOTE | 2018-02-10 14:41 | CP.PCM.PN ---
Subjective - Date & Time of Evaluation Date of Evaluation: 02/10/18 Time of Evaluation: 14:39 - Subjective Subjective: Podiatry Progress Note for Dr. Briseno 77 year old female seen and evaluated for bilateral lower extremity ulcerations with cellulitis. Patient is seen in bed in AM and refuses dressing change because she does not feel well. Patient was revisited in afternoon and states that nursing changed her dressing. States that she is feeling better and has agreed to undergo angiography with Dr. Damon tomorrow. Denies F/N/V/C/SOB/CP. No other pedal complaints at this time. Objective - Vital Signs/Intake and Output Vital Signs (last 24 hours): Temp Pulse Resp BP Pulse Ox 97.5 F L 95 H 18 131/79 99 02/10/18 08:00 02/10/18 08:00 02/10/18 08:00 02/10/18 08:00 02/10/18 08:00 - Medications Medications: Current Medications Acetaminophen (Tylenol 325mg Tab) 650 mg PO Q4 PRN PRN Reason: Pain, Mild (1-3) Last Admin: 02/07/18 03:14 Dose: 650 mg Acetaminophen (Tylenol 325mg Tab) 650 mg PO Q4 PRN PRN Reason: TEMP >100 Bacitracin (Bacitracin Oint) 1 applic TOP DAILY [facility] Last Admin: 02/10/18 08:59 Dose: 1 applic Bisacodyl (Dulcolax) 10 mg [place] DAILY PRN PRN Reason: Constipation Ciprofloxacin (Cipro) 250 mg PO Q12 [facility] PRN Reason: Protocol Last Admin: 02/10/18 09:01 Dose: 250 mg Clopidogrel Bisulfate (Plavix) 75 mg PO DAILY [facility] Last Admin: 02/10/18 09:00 Dose: 75 mg Docusate Sodium (Colace) 100 mg PO DAILY [facility] Last Admin: 02/09/18 10:29 Dose: Not Given Escitalopram Oxalate (Lexapro) 5 mg PO HS [facility] Last Admin: 02/09/18 21:14 Dose: 5 mg Famotidine (Pepcid) 20 mg PO DAILY [facility] Last Admin: 02/10/18 09:02 Dose: 20 mg Ferrous Sulfate (Feosol) 325 mg PO DAILY [facility] Last Admin: 02/10/18 09:02 Dose: 325 mg Furosemide (Lasix) 20 mg PO DAILY [facility] Last Admin: 02/03/18 09:54 Dose: 20 mg Glipizide (Glucotrol Xl) 2.5 mg PO DAILY [facility] Last Admin: 02/10/18 09:00 Dose: 2.5 mg Home Med (Hydrogen Peroxide [Peroxyl Dental Rinse]) 1 appl TOP MOWEFR [facility] Hydroxyzine HCl (Atarax) 10 mg PO TID PRN PRN Reason: pruritis Last Admin: 02/10/18 09:00 Dose: 10 mg Lactobacillus Acidophilus (Bacid Acidophilus) 1 cap PO BID [facility] Last Admin: 02/09/18 16:46 Dose: 1 cap Magnesium Hydroxide (Milk Of Magnesia) 30 ml PO HS PRN PRN Reason: Constipation Last Admin: 02/02/18 21:33 Dose: 30 ml Memantine (Namenda) 5 mg PO BID [facility] Last Admin: 02/10/18 09:00 Dose: 5 mg Methimazole (Tapazole) 5 mg PO DAILY [facility] Last Admin: 02/10/18 09:02 Dose: 5 mg Miconazole Nitrate (Critic-Aid Clear Af) 1 applic TOP BID [facility] Last Admin: 02/10/18 08:59 Dose: 1 applic Petrolatum (Desitin Maximum Strength Topical 40% Oint) 1 applic TOP QSHIFT [facility] Last Admin: 02/04/18 09:36 Dose: 1 applic Risperidone (Risperidone Odt 0.25mg) 0.25 mg PO Q12 PRN PRN Reason: Psychosis Last Admin: 02/10/18 09:00 Dose: 0.25 mg - Labs Labs: 02/10/18 12:49 02/10/18 12:49 PT 13.7 Seconds (9.8-13.1) H 02/06/18 06:00 INR 1.2 (0.9-1.2) 02/06/18 06:00 APTT 26.5 Seconds (25.6-37.1) 02/06/18 06:00 - Constitutional Appears: Well, Non-toxic, No Acute Distress - Head Exam Head Exam: ATRAUMATIC, NORMOCEPHALIC - Extremities Exam Additional comments: Dressing seen to be C/D/I to b/l LE - Neurological Exam Neurological Exam: Alert, Awake, Oriented x3 - Psychiatric Exam Psychiatric exam: Normal Affect, Normal Mood Assessment and Plan - Assessment and Plan (Free Text) Assessment: 77 year old non compliant female patient with lower extremity cellulitis with lower extremity non healing partial thickness and unstageable ulcerations 2/2 multiple etiologies including DM, PVD, and swelling- swelling and erythema has decreased, ulcerations to LE becoming more necrotic in nature Plan: Patient seen and evaluated Plan discussed with Dr. Briseno Afebrile, WBC 14.0 from 17.0 Continue IV abx per ID 02/07 Wound cx: Enterobacter Cloacae and GNR No plan for surgical intervention at this time Dressings changed by nursing Podiatry will continue to follow while patient in house
--- NOTE | 2018-02-10 20:16 | CP.PCM.PN ---
Subjective - Date & Time of Evaluation Date of Evaluation: 02/10/18 Time of Evaluation: 22:22 - Subjective Subjective: Above noted Objective - Vital Signs/Intake and Output Vital Signs (last 24 hours): Temp Pulse Resp BP Pulse Ox 97.5 F L 95 H 20 134/73 96 02/10/18 15:54 02/10/18 15:54 02/10/18 15:54 02/10/18 15:54 02/10/18 15:54 - Medications Medications: Current Medications Acetaminophen (Tylenol 325mg Tab) 650 mg PO Q4 PRN PRN Reason: Pain, Mild (1-3) Last Admin: 02/07/18 03:14 Dose: 650 mg Acetaminophen (Tylenol 325mg Tab) 650 mg PO Q4 PRN PRN Reason: TEMP >100 Bacitracin (Bacitracin Oint) 1 applic TOP DAILY [facility] Last Admin: 02/10/18 08:59 Dose: 1 applic Bisacodyl (Dulcolax) 10 mg [place] DAILY PRN PRN Reason: Constipation Ciprofloxacin (Cipro) 250 mg PO Q12 [facility] PRN Reason: Protocol Last Admin: 02/10/18 09:01 Dose: 250 mg Clopidogrel Bisulfate (Plavix) 75 mg PO DAILY [facility] Last Admin: 02/10/18 09:00 Dose: 75 mg Docusate Sodium (Colace) 100 mg PO DAILY [facility] Last Admin: 02/10/18 17:01 Dose: 100 mg Escitalopram Oxalate (Lexapro) 5 mg PO HS [facility] Last Admin: 02/09/18 21:14 Dose: 5 mg Famotidine (Pepcid) 20 mg PO DAILY [facility] Last Admin: 02/10/18 09:02 Dose: 20 mg Ferrous Sulfate (Feosol) 325 mg PO DAILY [facility] Last Admin: 02/10/18 09:02 Dose: 325 mg Furosemide (Lasix) 20 mg PO DAILY [facility] Last Admin: 02/03/18 09:54 Dose: 20 mg Glipizide (Glucotrol Xl) 2.5 mg PO DAILY [facility] Last Admin: 02/10/18 09:00 Dose: 2.5 mg Home Med (Hydrogen Peroxide [Peroxyl Dental Rinse]) [facility] Hydroxyzine HCl (Atarax) 10 mg PO TID PRN PRN Reason: pruritis Last Admin: 02/10/18 09:00 Dose: 10 mg Lactobacillus Acidophilus (Bacid Acidophilus) 1 cap PO BID [facility] Last Admin: 02/10/18 17:00 Dose: 1 cap Magnesium Hydroxide (Milk Of Magnesia) 30 ml PO HS PRN PRN Reason: Constipation Last Admin: 02/02/18 21:33 Dose: 30 ml Memantine (Namenda) 5 mg PO BID [facility] Last Admin: 02/10/18 17:01 Dose: 5 mg Methimazole (Tapazole) 5 mg PO DAILY [facility] Last Admin: 02/10/18 09:02 Dose: 5 mg Miconazole Nitrate (Critic-Aid Clear Af) 1 applic TOP BID [facility] Last Admin: 02/10/18 16:56 Dose: 1 applic Petrolatum (Desitin Maximum Strength Topical 40% Oint) 1 applic TOP QSHIFT [facility] Last Admin: 02/04/18 09:36 Dose: 1 applic Risperidone (Risperidone Odt 0.25mg) 0.25 mg PO Q12 PRN PRN Reason: Psychosis Last Admin: 02/10/18 09:00 Dose: 0.25 mg - Labs Labs: 02/10/18 12:49 02/10/18 12:49 PT 13.7 Seconds (9.8-13.1) H 02/06/18 06:00 INR 1.2 (0.9-1.2) 02/06/18 06:00 APTT 26.5 Seconds (25.6-37.1) 02/06/18 06:00 - Respiratory Exam Respiratory Exam: Wheezes, NORMAL BREATHING PATTERN - Cardiovascular Exam Cardiovascular Exam: REGULAR RHYTHM - GI/Abdominal Exam GI & Abdominal Exam: Normal Bowel Sounds Assessment and Plan - Assessment and Plan (Free Text) Assessment: WBC and creat improved Low ext edema cellulitis Significant Arterial occlusive dx Wound cs Serratia Leg elevation IV ABX Zosyn/ Daptomycin ID Podiatry Surgery Physiatry Vascular Angiogram low ext ? Saturday ABBEY/ CKD creat improved Nephrology IVF Psychiatric dx?? Ultram?? Adj disorder with depression Psychiatry SSRI Resperidol CHF Diastolic CAD stress thalium scarring ischemia?? cardiac cath refused?? Cardiology Hx COPD L Pleural effusion Pulmonary Hx Anemia Chronic dx ASA d/c as outpt due to dec Hbg S/P Procrit transfusion NIDDM Thyroid dx
[2018-02-11] MEDS: Lactobacillus Acidophilus 500 MU Cap PO SCH ×2 (09:03→17:11)
[2018-02-11] MEDS: Bacitracin OINT 15GM TOP SCH (09:03)
[2018-02-11] MEDS: Critic-Aid Clear AF TOP SCH ×2 (09:04→17:12)
[2018-02-11] MEDS: GlipiZIDE 2.5 mg SR Tab PO SCH (09:04)
[2018-02-11] MEDS: methIMAzole 5 MG TAB PO SCH (09:05)
--- NOTE | 2018-02-11 09:56 | CP.PCM.PN ---
Subjective - Date & Time of Evaluation Date of Evaluation: 02/11/18 Time of Evaluation: 08:40 - Subjective Subjective: NO CHEST PAIN OR SIGNIFICANT SOB AGREES TO GO FOR LE INTERVENTION THIS MORNING Objective - Vital Signs/Intake and Output Vital Signs (last 24 hours): Temp Pulse Resp BP Pulse Ox 97.3 F L 82 18 130/62 97 02/11/18 08:07 02/11/18 08:07 02/11/18 08:07 02/11/18 08:07 02/11/18 08:07 - Medications Medications: Current Medications Acetaminophen (Tylenol 325mg Tab) 650 mg PO Q4 PRN PRN Reason: Pain, Mild (1-3) Last Admin: 02/07/18 03:14 Dose: 650 mg Acetaminophen (Tylenol 325mg Tab) 650 mg PO Q4 PRN PRN Reason: TEMP >100 Bacitracin (Bacitracin Oint) 1 applic TOP DAILY [facility] Last Admin: 02/11/18 09:03 Dose: Not Given Bisacodyl (Dulcolax) 10 mg [place] DAILY PRN PRN Reason: Constipation Ciprofloxacin (Cipro) 250 mg PO Q12 [facility] PRN Reason: Protocol Last Admin: 02/11/18 09:03 Dose: Not Given Clopidogrel Bisulfate (Plavix) 75 mg PO DAILY [facility] Last Admin: 02/11/18 09:05 Dose: Not Given Docusate Sodium (Colace) 100 mg PO DAILY [facility] Last Admin: 02/11/18 09:03 Dose: Not Given Escitalopram Oxalate (Lexapro) 5 mg PO HS [facility] Last Admin: 02/10/18 21:17 Dose: 5 mg Famotidine (Pepcid) 20 mg PO DAILY [facility] Last Admin: 02/11/18 09:04 Dose: Not Given Ferrous Sulfate (Feosol) 325 mg PO DAILY [facility] Last Admin: 02/11/18 09:04 Dose: Not Given Furosemide (Lasix) 20 mg PO DAILY [facility] Last Admin: 02/03/18 09:54 Dose: 20 mg Glipizide (Glucotrol Xl) 2.5 mg PO DAILY [facility] Last Admin: 02/11/18 09:04 Dose: Not Given Home Med (Hydrogen Peroxide [Peroxyl Dental Rinse]) 1 appl TOP MOWEFR [facility] Hydroxyzine HCl (Atarax) 10 mg PO TID PRN PRN Reason: pruritis Last Admin: 02/10/18 09:00 Dose: 10 mg Lactobacillus Acidophilus (Bacid Acidophilus) 1 cap PO BID [facility] Last Admin: 02/11/18 09:03 Dose: Not Given Magnesium Hydroxide (Milk Of Magnesia) 30 ml PO HS PRN PRN Reason: Constipation Last Admin: 02/02/18 21:33 Dose: 30 ml Memantine (Namenda) 5 mg PO BID [facility] Last Admin: 02/11/18 09:04 Dose: Not Given Methimazole (Tapazole) 5 mg PO DAILY [facility] Last Admin: 02/11/18 09:05 Dose: Not Given Miconazole Nitrate (Critic-Aid Clear Af) 1 applic TOP BID [facility] Last Admin: 02/11/18 09:04 Dose: Not Given Petrolatum (Desitin Maximum Strength Topical 40% Oint) 1 applic TOP QSHIFT [facility] Last Admin: 02/04/18 09:36 Dose: 1 applic Risperidone (Risperidone Odt 0.25mg) 0.25 mg PO Q12 PRN PRN Reason: Psychosis Last Admin: 02/10/18 09:00 Dose: 0.25 mg - Labs Labs: 02/10/18 12:49 02/10/18 12:49 PT 13.7 Seconds (9.8-13.1) H 02/06/18 06:00 INR 1.2 (0.9-1.2) 02/06/18 06:00 APTT 26.5 Seconds (25.6-37.1) 02/06/18 06:00 - Respiratory Exam Respiratory Exam: Clear to Ausculation Bilateral - Cardiovascular Exam Cardiovascular Exam: REGULAR RHYTHM, +S1, +S2 - Extremities Exam Extremities Exam: Normal Inspection Assessment and Plan - Assessment and Plan (Free Text) Assessment: CAD HYPERTENSION SEVERE PAD COPD TYPE 2 DM Plan: THE PATIENT WILL HAVE A LOWER EXTREMITY ANGIOGRAM AND INTERVENTION FOR PAD IF POSSIBLE BY DR PINA AT [facility] THIS AM
--- NOTE | 2018-02-11 16:02 | CP.PCM.PN ---
Subjective - Date & Time of Evaluation Date of Evaluation: 02/10/18 Time of Evaluation: 19:00 - Subjective Subjective: Has pain in feet, for endovascular intervention in AM Objective - Vital Signs/Intake and Output Vital Signs (last 24 hours): Temp Pulse Resp BP Pulse Ox 97.3 F L 82 18 130/62 97 02/11/18 08:07 02/11/18 08:07 02/11/18 08:07 02/11/18 08:07 02/11/18 08:07 - Medications Medications: Current Medications Acetaminophen (Tylenol 325mg Tab) 650 mg PO Q4 PRN PRN Reason: Pain, Mild (1-3) Last Admin: 02/07/18 03:14 Dose: 650 mg Acetaminophen (Tylenol 325mg Tab) 650 mg PO Q4 PRN PRN Reason: TEMP >100 Bacitracin (Bacitracin Oint) 1 applic TOP DAILY [facility] Last Admin: 02/11/18 09:03 Dose: Not Given Bisacodyl (Dulcolax) 10 mg [place] DAILY PRN PRN Reason: Constipation Ciprofloxacin (Cipro) 250 mg PO Q12 [facility] PRN Reason: Protocol Last Admin: 02/11/18 09:03 Dose: Not Given Clopidogrel Bisulfate (Plavix) 75 mg PO DAILY [facility] Last Admin: 02/11/18 09:05 Dose: Not Given Docusate Sodium (Colace) 100 mg PO DAILY [facility] Last Admin: 02/11/18 09:03 Dose: Not Given Escitalopram Oxalate (Lexapro) 5 mg PO HS [facility] Last Admin: 02/10/18 21:17 Dose: 5 mg Famotidine (Pepcid) 20 mg PO DAILY [facility] Last Admin: 02/11/18 09:04 Dose: Not Given Ferrous Sulfate (Feosol) 325 mg PO DAILY [facility] Last Admin: 02/11/18 09:04 Dose: Not Given Furosemide (Lasix) 20 mg PO DAILY [facility] Last Admin: 02/03/18 09:54 Dose: 20 mg Glipizide (Glucotrol Xl) 2.5 mg PO DAILY [facility] Last Admin: 02/11/18 09:04 Dose: Not Given Home Med (Hydrogen Peroxide [Peroxyl Dental Rinse]) [facility] Hydroxyzine [facility] (Atarax) 10 mg PO TID PRN PRN Reason: pruritis Last Admin: 02/10/18 09:00 Dose: 10 mg Lactobacillus Acidophilus (Bacid Acidophilus) 1 cap PO BID [facility] Last Admin: 02/11/18 09:03 Dose: Not Given Magnesium Hydroxide (Milk Of Magnesia) 30 ml PO HS PRN PRN Reason: Constipation Last Admin: 02/02/18 21:33 Dose: 30 ml Memantine (Namenda) 5 mg PO BID [facility] Last Admin: 02/11/18 09:04 Dose: Not Given Methimazole (Tapazole) 5 mg PO DAILY [facility] Last Admin: 02/11/18 09:05 Dose: Not Given Miconazole Nitrate (Critic-Aid Clear Af) 1 applic TOP BID [facility] Last Admin: 02/11/18 09:04 Dose: Not Given Petrolatum (Desitin Maximum Strength Topical 40% Oint) 1 applic TOP QSHIFT [facility] Last Admin: 02/04/18 09:36 Dose: 1 applic Risperidone (Risperidone Odt 0.25mg) 0.25 mg PO Q12 PRN PRN Reason: Psychosis Last Admin: 02/10/18 09:00 Dose: 0.25 mg - Labs Labs: 02/10/18 12:49 02/10/18 12:49 PT 13.7 Seconds (9.8-13.1) H 02/06/18 06:00 INR 1.2 (0.9-1.2) 02/06/18 06:00 APTT 26.5 Seconds (25.6-37.1) 02/06/18 06:00 - Head Exam Head Exam: ATRAUMATIC - Eye Exam Eye Exam: Normal appearance - ENT Exam ENT Exam: Mucous Membranes Dry - Respiratory Exam Respiratory Exam: NORMAL BREATHING PATTERN - Cardiovascular Exam Cardiovascular Exam: +S1, +S2 - GI/Abdominal Exam GI & Abdominal Exam: Normal Bowel Sounds Assessment and Plan (1) Anemia Assessment & Plan: chronic disease, renal function improved intermitted Procrit supplementation to keep hgb ~ 10 s/p PRBC transfusion Status: Acute (2) Leukocytosis Assessment & Plan: improving with antibiotics Status: Acute
--- NOTE | 2018-02-11 16:03 | CP.PCM.PN ---
Subjective - Date & Time of Evaluation Date of Evaluation: 02/11/18 Time of Evaluation: 08:00 - Subjective Subjective: For vascular intervention at [facility] Objective - Vital Signs/Intake and Output Vital Signs (last 24 hours): Temp Pulse Resp BP Pulse Ox 97.3 F L 82 18 130/62 97 02/11/18 08:07 02/11/18 08:07 02/11/18 08:07 02/11/18 08:07 02/11/18 08:07 - Medications Medications: Current Medications Acetaminophen (Tylenol 325mg Tab) 650 mg PO Q4 PRN PRN Reason: Pain, Mild (1-3) Last Admin: 02/07/18 03:14 Dose: 650 mg Acetaminophen (Tylenol 325mg Tab) 650 mg PO Q4 PRN PRN Reason: TEMP >100 Bacitracin (Bacitracin Oint) 1 applic TOP DAILY [facility] Last Admin: 02/11/18 09:03 Dose: Not Given Bisacodyl (Dulcolax) 10 mg [place] DAILY PRN PRN Reason: Constipation Ciprofloxacin (Cipro) 250 mg PO Q12 [facility] PRN Reason: Protocol Last Admin: 02/11/18 09:03 Dose: Not Given Clopidogrel Bisulfate (Plavix) 75 mg PO DAILY [facility] Last Admin: 02/11/18 09:05 Dose: Not Given Docusate Sodium (Colace) 100 mg PO DAILY [facility] Last Admin: 02/11/18 09:03 Dose: Not Given Escitalopram Oxalate (Lexapro) 5 mg PO HS [facility] Last Admin: 02/10/18 21:17 Dose: 5 mg Famotidine (Pepcid) 20 mg PO DAILY [facility] Last Admin: 02/11/18 09:04 Dose: Not Given Ferrous Sulfate (Feosol) 325 mg PO DAILY [facility] Last Admin: 02/11/18 09:04 Dose: Not Given Furosemide (Lasix) 20 mg PO DAILY [facility] Last Admin: 02/03/18 09:54 Dose: 20 mg Glipizide (Glucotrol Xl) 2.5 mg PO DAILY [facility] Last Admin: 02/11/18 09:04 Dose: Not Given Home Med (Hydrogen Peroxide [Peroxyl Dental Rinse]) 1 appl TOP MOWEFR [facility] Hydroxyzine HCl (Atarax) 10 mg PO TID PRN PRN Reason: pruritis Last Admin: 02/10/18 09:00 Dose: 10 mg Lactobacillus Acidophilus (Bacid Acidophilus) 1 cap PO BID [facility] Last Admin: 02/11/18 09:03 Dose: Not Given Magnesium Hydroxide (Milk Of Magnesia) 30 ml PO HS PRN PRN Reason: Constipation Last Admin: 02/02/18 21:33 Dose: 30 ml Memantine (Namenda) 5 mg PO BID [facility] Last Admin: 02/11/18 09:04 Dose: Not Given Methimazole (Tapazole) 5 mg PO DAILY [facility] Last Admin: 02/11/18 09:05 Dose: Not Given Miconazole Nitrate (Critic-Aid Clear Af) 1 applic TOP BID [facility] Last Admin: 02/11/18 09:04 Dose: Not Given Petrolatum (Desitin Maximum Strength Topical 40% Oint) 1 applic TOP QSHIFT [facility] Last Admin: 02/04/18 09:36 Dose: 1 applic Risperidone (Risperidone Odt 0.25mg) 0.25 mg PO Q12 PRN PRN Reason: Psychosis Last Admin: 02/10/18 09:00 Dose: 0.25 mg - Labs Labs: 02/10/18 12:49 02/10/18 12:49 PT 13.7 Seconds (9.8-13.1) H 02/06/18 06:00 INR 1.2 (0.9-1.2) 02/06/18 06:00 APTT 26.5 Seconds (25.6-37.1) 02/06/18 06:00 - Head Exam Head Exam: ATRAUMATIC - Eye Exam Eye Exam: Normal appearance - ENT Exam ENT Exam: Mucous Membranes Dry - Respiratory Exam Respiratory Exam: NORMAL BREATHING PATTERN - Cardiovascular Exam Cardiovascular Exam: +S1, +S2 - GI/Abdominal Exam GI & Abdominal Exam: Normal Bowel Sounds Assessment and Plan (1) Anemia Assessment & Plan: chronic disease, improved renal function s/p PRBC transfusion intermittent Procrit to maintain hgb ~ 10 Status: Acute (2) Leukocytosis Assessment & Plan: improving with antibiotics Status: Acute
--- NOTE | 2018-02-11 21:05 | CP.PCM.PN ---
Subjective - Date & Time of Evaluation Date of Evaluation: 02/11/18 Time of Evaluation: 22:22 - Subjective Subjective: Vascular intervention today at [facility] Objective - Vital Signs/Intake and Output Vital Signs (last 24 hours): Temp Pulse Resp BP Pulse Ox 97.4 F L 82 19 117/66 100 02/11/18 18:15 02/11/18 18:15 02/11/18 18:15 02/11/18 18:15 02/11/18 18:15 - Medications Medications: Current Medications Acetaminophen (Tylenol 325mg Tab) 650 mg PO Q4 PRN PRN Reason: Pain, Mild (1-3) Last Admin: 02/07/18 03:14 Dose: 650 mg Acetaminophen (Tylenol 325mg Tab) 650 mg PO Q4 PRN PRN Reason: TEMP >100 Aspirin (Aspirin) 325 mg PO DAILY [facility] Bacitracin (Bacitracin Oint) 1 applic TOP DAILY [facility] Last Admin: 02/11/18 09:03 Dose: Not Given Bisacodyl (Dulcolax) 10 mg [place] DAILY PRN PRN Reason: Constipation Ciprofloxacin (Cipro) 250 mg PO Q12 [facility] PRN Reason: Protocol Last Admin: 02/11/18 09:03 Dose: Not Given Clopidogrel Bisulfate (Plavix) 75 mg PO DAILY [facility] Last Admin: 02/11/18 09:05 Dose: Not Given Docusate Sodium (Colace) 100 mg PO DAILY [facility] Last Admin: 02/11/18 09:03 Dose: Not Given Escitalopram Oxalate (Lexapro) 5 mg PO HS [facility] Last Admin: 02/10/18 21:17 Dose: 5 mg Famotidine (Pepcid) 20 mg PO DAILY [facility] Last Admin: 02/11/18 09:04 Dose: Not Given Ferrous Sulfate (Feosol) 325 mg PO DAILY [facility] Last Admin: 02/11/18 09:04 Dose: Not Given Furosemide (Lasix) 20 mg PO DAILY [facility] Last Admin: 02/03/18 09:54 Dose: 20 mg Glipizide (Glucotrol Xl) 2.5 mg PO DAILY [facility] Last Admin: 02/11/18 09:04 Dose: Not Given Home Med (Hydrogen Peroxide [Peroxyl Dental Rinse]) 1 appl TOP MOWEFR [facility] Hydroxyzine HCl (Atarax) 10 mg PO TID PRN PRN Reason: pruritis Last Admin: 02/10/18 09:00 Dose: 10 mg Lactobacillus Acidophilus (Bacid Acidophilus) 1 cap PO BID [facility] Last Admin: 02/11/18 17:11 Dose: Not Given Magnesium Hydroxide (Milk Of Magnesia) 30 ml PO HS PRN PRN Reason: Constipation Last Admin: 02/02/18 21:33 Dose: 30 ml Memantine (Namenda) 5 mg PO BID [facility] Last Admin: 02/11/18 17:12 Dose: Not Given Methimazole (Tapazole) 5 mg PO DAILY [facility] Last Admin: 02/11/18 09:05 Dose: Not Given Miconazole Nitrate (Critic-Aid Clear Af) 1 applic TOP BID [facility] Last Admin: 02/11/18 17:12 Dose: Not Given Petrolatum (Desitin Maximum Strength Topical 40% Oint) 1 applic TOP QSHIFT [facility] Last Admin: 02/04/18 09:36 Dose: 1 applic Risperidone (Risperidone Odt 0.25mg) 0.25 mg PO Q12 PRN PRN Reason: Psychosis Last Admin: 02/10/18 09:00 Dose: 0.25 mg - Labs Labs: 02/10/18 12:49 02/10/18 12:49 PT 13.7 Seconds (9.8-13.1) H 02/06/18 06:00 INR 1.2 (0.9-1.2) 02/06/18 06:00 APTT 26.5 Seconds (25.6-37.1) 02/06/18 06:00 - Respiratory Exam Respiratory Exam: NORMAL BREATHING PATTERN - Cardiovascular Exam Cardiovascular Exam: REGULAR RHYTHM - GI/Abdominal Exam GI & Abdominal Exam: Normal Bowel Sounds Assessment and Plan - Assessment and Plan (Free Text) Assessment: Low ext edema cellulitis Significant Arterial occlusive dx Wound cs Serratia Leg elevation IV ABX Zosyn/ Daptomycin ID Podiatry Surgery Physiatry Vascular Angiogram low ext today ABBEY/ CKD creat improved Nephrology IVF Psychiatric dx?? Ultram?? Adj disorder with depression Psychiatry SSRI Resperidol CHF Diastolic CAD stress thalium scarring ischemia?? cardiac cath refused?? Cardiology Hx COPD L Pleural effusion Pulmonary Hx Anemia Chronic dx ASA d/c as outpt due to dec Hbg S/P Procrit transfusion NIDDM Thyroid dx
[2018-02-12 06:18] LABS: HEMOGLOBIN 9.1 g/dL (12.0-16.0); MEAN CELL VOLUME 79.9 fl (81.0-99.0); MEAN CORPUSCULAR HEMOGLOBIN 24.8 pg (27.0-31.0); RBC 3.68 Mil/uL (3.80-5.20); RED CELL DISTRIBUTION WIDTH 21.8 % (11.5-14.5); WHITE BLOOD COUNT 15.4 K/uL (4.8-10.8)
[2018-02-12 07:15] LABS: ALB/GLOB RATIO 0.7 (1.0-2.1); ALBUMIN 2.5 g/dL (3.5-5.0); ALT/SGPT 29 U/L (9-52); AST/SGOT 13 U/L (14-36); BLOOD UREA NITROGEN 29 mg/dl (7-17); CALCIUM 8.2 mg/dL (8.4-10.2); GFR AFRICAN-AMERICAN > 60; GFR NON-AFRICAN AMERICAN 53
--- NOTE | 2018-02-12 08:37 | CP.PCM.PN ---
Subjective - Date & Time of Evaluation Date of Evaluation: 02/12/18 Time of Evaluation: 08:00 - Subjective Subjective: PATIENT FEELS BETTER TODAY NO CHEST PAIN, BREATHING OK Objective - Vital Signs/Intake and Output Vital Signs (last 24 hours): Temp Pulse Resp BP Pulse Ox 98.1 F 91 H 20 112/61 99 02/12/18 08:14 02/12/18 08:14 02/12/18 08:14 02/12/18 08:14 02/12/18 08:14 - Medications Medications: Current Medications Acetaminophen (Tylenol 325mg Tab) 650 mg PO Q4 PRN PRN Reason: Pain, Mild (1-3) Last Admin: 02/07/18 03:14 Dose: 650 mg Acetaminophen (Tylenol 325mg Tab) 650 mg PO Q4 PRN PRN Reason: TEMP >100 Aspirin (Aspirin) 325 mg PO DAILY [facility] Bacitracin (Bacitracin Oint) 1 applic TOP DAILY [facility] Last Admin: 02/11/18 09:03 Dose: Not Given Bisacodyl (Dulcolax) 10 mg [place] DAILY PRN PRN Reason: Constipation Ciprofloxacin (Cipro) 250 mg PO Q12 [facility] PRN Reason: Protocol Last Admin: 02/11/18 21:52 Dose: 250 mg Clopidogrel Bisulfate (Plavix) 75 mg PO DAILY [facility] Last Admin: 02/11/18 09:05 Dose: Not Given Docusate Sodium (Colace) 100 mg PO DAILY [facility] Last Admin: 02/11/18 09:03 Dose: Not Given Escitalopram Oxalate (Lexapro) 5 mg PO [facility] Last Admin: 02/11/18 21:52 Dose: 5 mg Famotidine (Pepcid) 20 mg PO DAILY [facility] Last Admin: 02/11/18 09:04 Dose: Not Given Ferrous Sulfate (Feosol) 325 mg PO DAILY [facility] Last Admin: 02/11/18 09:04 Dose: Not Given Furosemide (Lasix) 20 mg PO DAILY [facility] Last Admin: 02/03/18 09:54 Dose: 20 mg Glipizide (Glucotrol Xl) 2.5 mg PO DAILY [facility] Last Admin: 02/11/18 09:04 Dose: Not Given Home Med (Hydrogen Peroxide [Peroxyl Dental Rinse]) 1 appl TOP MOWEFR [facility] Hydroxyzine HCl (Atarax) 10 mg PO TID PRN PRN Reason: pruritis Last Admin: 02/10/18 09:00 Dose: 10 mg Lactobacillus Acidophilus (Bacid Acidophilus) 1 cap PO BID [facility] Last Admin: 02/11/18 17:11 Dose: Not Given Magnesium Hydroxide (Milk Of Magnesia) 30 ml PO HS PRN PRN Reason: Constipation Last Admin: 02/02/18 21:33 Dose: 30 ml Memantine (Namenda) 5 mg PO BID [facility] Last Admin: 02/11/18 17:12 Dose: Not Given Methimazole (Tapazole) 5 mg PO DAILY [facility] Last Admin: 02/11/18 09:05 Dose: Not Given Miconazole Nitrate (Critic-Aid Clear Af) 1 applic TOP BID [facility] Last Admin: 02/11/18 17:12 Dose: Not Given Petrolatum (Desitin Maximum Strength Topical 40% Oint) 1 applic TOP QSHIFT [facility] Last Admin: 02/04/18 09:36 Dose: 1 applic Risperidone (Risperidone Odt 0.25mg) 0.25 mg PO Q12 PRN PRN Reason: Psychosis Last Admin: 02/10/18 09:00 Dose: 0.25 mg - Labs Labs: 02/12/18 06:00 02/12/18 06:00 PT 13.7 Seconds (9.8-13.1) H 02/06/18 06:00 INR 1.2 (0.9-1.2) 02/06/18 06:00 APTT 26.5 Seconds (25.6-37.1) 02/06/18 06:00 - Respiratory Exam Respiratory Exam: Clear to Ausculation Bilateral - Cardiovascular Exam Cardiovascular Exam: REGULAR RHYTHM, +S1, +S2 - Extremities Exam Additional comments: BETTER PULSES - Additional Findings Additional findings: DR PINA WAS ABLE TO PERFORM A SUCCESSFUL REVASCULARIZATION PROCEDURE OF THE LE Assessment and Plan - Assessment and Plan (Free Text) Assessment: CAD HYPERTENSION PAD TYPE 2 DM Plan: CONTINUE ASPIRIN, CLOPIDOGREL, ANTIBIOTICS AND GLIPIZIDE
[2018-02-12] MEDS: methIMAzole 5 MG TAB PO SCH (08:59)
[2018-02-12] MEDS: Critic-Aid Clear AF TOP SCH ×2 (08:59→17:22)
[2018-02-12] MEDS: RISPERIDONE 0.25 MG ODT PO PRN (09:00)
[2018-02-12] MEDS: GlipiZIDE 2.5 mg SR Tab PO SCH (09:00)
[2018-02-12] MEDS: Bacitracin OINT 15GM TOP SCH (09:01)
[2018-02-12] MEDS: Lactobacillus Acidophilus 500 MU Cap PO SCH ×2 (09:04→17:25)
--- NOTE | 2018-02-12 12:34 | CP.PCM.PN ---
Subjective - Date & Time of Evaluation Date of Evaluation: 02/12/18 Time of Evaluation: 07:00 - Subjective Subjective: s/p angioplasty iv rx renewed cont wound care as per dr delgado Objective - Vital Signs/Intake and Output Vital Signs (last 24 hours): Temp Pulse Resp BP Pulse Ox 98.1 F 91 H 20 112/61 99 02/12/18 08:14 02/12/18 08:14 02/12/18 08:14 02/12/18 08:14 02/12/18 08:14 - Medications Medications: Current Medications Acetaminophen (Tylenol 325mg Tab) 650 mg PO Q4 PRN PRN Reason: Pain, Mild (1-3) Last Admin: 02/07/18 03:14 Dose: 650 mg Acetaminophen (Tylenol 325mg Tab) 650 mg PO Q4 PRN PRN Reason: TEMP >100 Aspirin (Aspirin) 325 mg PO DAILY [facility] Last Admin: 02/12/18 08:59 Dose: 325 mg Bacitracin (Bacitracin Oint) 1 applic TOP DAILY [facility] Last Admin: 02/12/18 09:01 Dose: 1 applic Bisacodyl (Dulcolax) 10 mg [place] DAILY PRN PRN Reason: Constipation Ciprofloxacin (Cipro) 250 mg PO Q12 [facility] PRN Reason: Protocol Last Admin: 02/12/18 08:58 Dose: 250 mg Clopidogrel Bisulfate (Plavix) 75 mg PO DAILY [facility] Last Admin: 02/12/18 09:01 Dose: 75 mg Docusate Sodium (Colace) 100 mg PO DAILY [facility] Last Admin: 02/12/18 08:58 Dose: 100 mg Escitalopram Oxalate (Lexapro) 5 mg PO HS [facility] Last Admin: 02/11/18 21:52 Dose: 5 mg Famotidine (Pepcid) 20 mg PO DAILY [facility] Last Admin: 02/12/18 09:00 Dose: 20 mg Ferrous Sulfate (Feosol) 325 mg PO DAILY [facility] Last Admin: 02/12/18 08:58 Dose: 325 mg Furosemide (Lasix) 20 mg PO DAILY [facility] Last Admin: 02/03/18 09:54 Dose: 20 mg Glipizide (Glucotrol Xl) 2.5 mg PO DAILY [facility] Last Admin: 02/12/18 09:00 Dose: 2.5 mg Home Med (Hydrogen Peroxide [Peroxyl Dental Rinse]) 1 appl TOP MOWEFR [facility] Hydroxyzine HCl (Atarax) 10 mg PO TID PRN PRN Reason: pruritis Last Admin: 02/12/18 08:58 Dose: 10 mg Piperacillin Sod/Tazobactam (Sod 2.25 gm/ Sodium Chloride) 100 mls @ 100 mls/ hr IVPB Q8 [facility] PRN Reason: Protocol Lactobacillus Acidophilus (Bacid Acidophilus) 1 cap PO BID [facility] Last Admin: 02/12/18 09:04 Dose: 1 cap Magnesium Hydroxide (Milk Of Magnesia) 30 ml PO HS PRN PRN Reason: Constipation Last Admin: 02/02/18 21:33 Dose: 30 ml Memantine (Namenda) 5 mg PO BID [facility] Last Admin: 02/12/18 08:59 Dose: 5 mg Methimazole (Tapazole) 5 mg PO DAILY [facility] Last Admin: 02/12/18 08:59 Dose: 5 mg Miconazole Nitrate (Critic-Aid Clear Af) 1 applic TOP BID [facility] Last Admin: 02/12/18 08:59 Dose: 1 applic Petrolatum (Desitin Maximum Strength Topical 40% Oint) 1 applic TOP QSHIFT [facility] Last Admin: 02/04/18 09:36 Dose: 1 applic Risperidone (Risperidone Odt 0.25mg) 0.25 mg PO Q12 PRN PRN Reason: Psychosis Last Admin: 02/12/18 09:00 Dose: 0.25 mg - Labs Labs: 02/12/18 06:00 02/12/18 06:00 PT 13.7 Seconds (9.8-13.1) H 02/06/18 06:00 INR 1.2 (0.9-1.2) 02/06/18 06:00 APTT 26.5 Seconds (25.6-37.1) 02/06/18 06:00 - Constitutional Appears: Non-toxic, Chronically Ill - Head Exam Head Exam: NORMOCEPHALIC - Eye Exam Eye Exam: absent: Scleral icterus - ENT Exam ENT Exam: Normal External Ear Exam - Neck Exam Neck Exam: absent: Lymphadenopathy - Respiratory Exam Respiratory Exam: Decreased Breath Sounds - Cardiovascular Exam Cardiovascular Exam: REGULAR RHYTHM - GI/Abdominal Exam GI & Abdominal Exam: Distended, Soft - Rectal Exam Rectal Exam: Deferred - Exam Exam: NORMAL INSPECTION - Back Exam Back Exam: absent: CVA tenderness (L), CVA tenderness (R) - Neurological Exam Neurological Exam: Altered - Psychiatric Exam Psychiatric exam: Normal Mood - Skin Skin Exam: Dry Assessment and Plan (1) Cellulitis, leg Status: Acute (2) PVD (peripheral vascular disease) Status: Acute (3) Sepsis Status: Acute
--- NOTE | 2018-02-12 13:18 | CP.PCM.PN ---
Subjective - Date & Time of Evaluation Date of Evaluation: 02/12/18 Time of Evaluation: 11:45 - Subjective Subjective: Has some pain in legs s/p angioplasty Objective - Vital Signs/Intake and Output Vital Signs (last 24 hours): Temp Pulse Resp BP Pulse Ox 98.1 F 91 H 20 112/61 99 02/12/18 08:14 02/12/18 08:14 02/12/18 08:14 02/12/18 08:14 02/12/18 08:14 - Medications Medications: Current Medications Acetaminophen (Tylenol 325mg Tab) 650 mg PO Q4 PRN PRN Reason: Pain, Mild (1-3) Last Admin: 02/07/18 03:14 Dose: 650 mg Acetaminophen (Tylenol 325mg Tab) 650 mg PO Q4 PRN PRN Reason: TEMP >100 Aspirin (Aspirin) 325 mg PO DAILY [facility] Last Admin: 02/12/18 08:59 Dose: 325 mg Bacitracin (Bacitracin Oint) 1 applic TOP DAILY [facility] Last Admin: 02/12/18 09:01 Dose: 1 applic Bisacodyl (Dulcolax) 10 mg [place] DAILY PRN PRN Reason: Constipation Clopidogrel Bisulfate (Plavix) 75 mg PO DAILY [facility] Last Admin: 02/12/18 09:01 Dose: 75 mg Docusate Sodium (Colace) 100 mg PO DAILY [facility] Last Admin: 02/12/18 08:58 Dose: 100 mg Escitalopram Oxalate (Lexapro) 5 mg PO HS [facility] Last Admin: 02/11/18 21:52 Dose: 5 mg Famotidine (Pepcid) 20 mg PO DAILY [facility] Last Admin: 02/12/18 09:00 Dose: 20 mg Ferrous Sulfate (Feosol) 325 mg PO DAILY [facility] Last Admin: 02/12/18 08:58 Dose: 325 mg Furosemide (Lasix) 20 mg PO DAILY [facility] Last Admin: 02/03/18 09:54 Dose: 20 mg Glipizide (Glucotrol Xl) 2.5 mg PO DAILY [facility] Last Admin: 02/12/18 09:00 Dose: 2.5 mg Home Med (Hydrogen Peroxide [Peroxyl Dental Rinse]) 1 appl TOP MOWEFR [facility] Hydroxyzine HCl (Atarax) 10 mg PO TID PRN PRN Reason: pruritis Last Admin: 02/12/18 08:58 Dose: 10 mg Piperacillin Sod/Tazobactam (Sod 2.25 gm/ Sodium Chloride) 100 mls @ 100 mls/ hr IVPB Q8 [facility] PRN Reason: Protocol Amikacin Sulfate 350 mg/ (Sodium Chloride) 101.4 mls @ 101.4 mls/hr IVPB Q24H [facility] PRN Reason: Protocol Lactobacillus Acidophilus (Bacid Acidophilus) 1 cap PO BID [facility] Last Admin: 02/12/18 09:04 Dose: 1 cap Magnesium Hydroxide (Milk Of Magnesia) 30 ml PO HS PRN PRN Reason: Constipation Last Admin: 02/02/18 21:33 Dose: 30 ml Memantine (Namenda) 5 mg PO BID [facility] Last Admin: 02/12/18 08:59 Dose: 5 mg Methimazole (Tapazole) 5 mg PO DAILY [facility] Last Admin: 02/12/18 08:59 Dose: 5 mg Miconazole Nitrate (Critic-Aid Clear Af) 1 applic TOP BID [facility] Last Admin: 02/12/18 08:59 Dose: 1 applic Petrolatum (Desitin Maximum Strength Topical 40% Oint) 1 applic TOP QSHIFT [facility] Last Admin: 02/04/18 09:36 Dose: 1 applic Risperidone (Risperidone Odt 0.25mg) 0.25 mg PO Q12 PRN PRN Reason: Psychosis Last Admin: 02/12/18 09:00 Dose: 0.25 mg - Labs Labs: 02/12/18 06:00 02/12/18 06:00 PT 13.7 Seconds (9.8-13.1) H 02/06/18 06:00 INR 1.2 (0.9-1.2) 02/06/18 06:00 APTT 26.5 Seconds (25.6-37.1) 02/06/18 06:00 - Head Exam Head Exam: ATRAUMATIC - Eye Exam Eye Exam: Normal appearance - ENT Exam ENT Exam: Mucous Membranes Dry - Respiratory Exam Respiratory Exam: NORMAL BREATHING PATTERN - Cardiovascular Exam Cardiovascular Exam: +S1, +S2 - GI/Abdominal Exam GI & Abdominal Exam: Normal Bowel Sounds Assessment and Plan (1) Anemia Assessment & Plan: chronic disease, improved renal function s/p PRBC transfusion intermittent Procrit to maintain hgb ~ 10 Status: Acute (2) Leukocytosis Assessment & Plan: on antibiotics Status: Acute
--- NOTE | 2018-02-12 17:30 | CP.PCM.PN ---
Subjective - Date & Time of Evaluation Date of Evaluation: 02/12/18 Time of Evaluation: 22:22 - Subjective Subjective: S/P Angioplasty Objective - Vital Signs/Intake and Output Vital Signs (last 24 hours): Temp Pulse Resp BP Pulse Ox 98 F 95 H 20 130/70 97 02/12/18 16:36 02/12/18 16:36 02/12/18 16:36 02/12/18 16:36 02/12/18 16:36 - Medications Medications: Current Medications Acetaminophen (Tylenol 325mg Tab) 650 mg PO Q4 PRN PRN Reason: Pain, Mild (1-3) Last Admin: 02/07/18 03:14 Dose: 650 mg Acetaminophen (Tylenol 325mg Tab) 650 mg PO Q4 PRN PRN Reason: TEMP >100 Aspirin (Aspirin) 325 mg PO DAILY [facility] Last Admin: 02/12/18 08:59 Dose: 325 mg Bacitracin (Bacitracin Oint) 1 applic TOP DAILY [facility] Last Admin: 02/12/18 09:01 Dose: 1 applic Bisacodyl (Dulcolax) 10 mg [place] DAILY PRN PRN Reason: Constipation Clopidogrel Bisulfate (Plavix) 75 mg PO DAILY [facility] Last Admin: 02/12/18 09:01 Dose: 75 mg Docusate Sodium (Colace) 100 mg PO DAILY [facility] Last Admin: 02/12/18 08:58 Dose: 100 mg Escitalopram Oxalate (Lexapro) 5 mg PO HS [facility] Last Admin: 02/11/18 21:52 Dose: 5 mg Famotidine (Pepcid) 20 mg PO DAILY [facility] Last Admin: 02/12/18 09:00 Dose: 20 mg Ferrous Sulfate (Feosol) 325 mg PO DAILY [facility] Last Admin: 02/12/18 08:58 Dose: 325 mg Furosemide (Lasix) 20 mg PO DAILY [facility] Last Admin: 02/03/18 09:54 Dose: 20 mg Glipizide (Glucotrol Xl) 2.5 mg PO DAILY [facility] Last Admin: 02/12/18 09:00 Dose: 2.5 mg Home Med (Hydrogen Peroxide [Peroxyl Dental Rinse]) 1 appl TOP MOWEFR [facility] Hydroxyzine HCl (Atarax) 10 mg PO TID PRN PRN Reason: pruritis Last Admin: 02/12/18 08:58 Dose: 10 mg Piperacillin Sod/Tazobactam (Sod 2.25 gm/ Sodium Chloride) 100 mls @ 100 mls/ hr IVPB Q8 [facility] PRN Reason: Protocol Last Admin: 02/12/18 17:25 Dose: 100 mls/hr Amikacin Sulfate 350 mg/ (Sodium Chloride) 101.4 mls @ 101.4 mls/hr IVPB Q24H [facility] PRN Reason: Protocol Last Admin: 02/12/18 15:35 Dose: 101.4 mls/hr Lactobacillus Acidophilus (Bacid Acidophilus) 1 cap PO BID [facility] Last Admin: 02/12/18 17:25 Dose: 1 cap Magnesium Hydroxide (Milk Of Magnesia) 30 ml PO HS PRN PRN Reason: Constipation Last Admin: 02/02/18 21:33 Dose: 30 ml Memantine (Namenda) 5 mg PO BID [facility] Last Admin: 02/12/18 17:22 Dose: 5 mg Methimazole (Tapazole) 5 mg PO DAILY [facility] Last Admin: 02/12/18 08:59 Dose: 5 mg Miconazole Nitrate (Critic-Aid Clear Af) 1 applic TOP BID [facility] Last Admin: 02/12/18 17:22 Dose: 1 applic Petrolatum (Desitin Maximum Strength Topical 40% Oint) 1 applic TOP QSHIFT [facility] Last Admin: 02/04/18 09:36 Dose: 1 applic Risperidone (Risperidone Odt 0.25mg) 0.25 mg PO Q12 PRN PRN Reason: Psychosis Last Admin: 02/12/18 09:00 Dose: 0.25 mg - Labs Labs: 02/12/18 06:00 02/12/18 06:00 PT 13.7 Seconds (9.8-13.1) H 02/06/18 06:00 INR 1.2 (0.9-1.2) 02/06/18 06:00 APTT 26.5 Seconds (25.6-37.1) 02/06/18 06:00 - Respiratory Exam Respiratory Exam: NORMAL BREATHING PATTERN - Cardiovascular Exam Cardiovascular Exam: REGULAR RHYTHM - GI/Abdominal Exam GI & Abdominal Exam: Normal Bowel Sounds Assessment and Plan - Assessment and Plan (Free Text) Assessment: Low ext edema cellulitis Significant Periphereal Arterial Occlusive dx Wound cs Serratia S/P Angioplasty Leg elevation IV ABX Zosyn/ Daptomycin ID Podiatry Surgery Physiatry Vascular ABBEY/ CKD creat improved Nephrology IVF Psychiatric dx?? Ultram?? Adj disorder with depression Psychiatry SSRI Resperidol CHF Diastolic CAD stress thalium scarring ischemia?? cardiac cath refused?? Cardiology Hx COPD L Pleural effusion Pulmonary Hx Anemia Chronic dx ASA d/c as outpt due to dec Hbg S/P Procrit transfusion NIDDM Thyroid dx
[2018-02-12] MEDS ORDERED: Oxycodone/Acetaminophen 5/325 mg Tab PO PRN (19:39)
--- NOTE | 2018-02-12 20:59 | CP.PCM.PN ---
Subjective - Date & Time of Evaluation Date of Evaluation: 02/12/18 Time of Evaluation: 05:30 - Subjective Subjective: Podiatry Progress Note for Dr. Briseno 77F seen and evaluated at bedside for multiple b/l LE ulcerations. Patient is AAO x 3 and NAD, resting in bed. States that she is tired and still experiencing some pain to her legs. Denies any acute overnight events. Denies any recent N/V/F/C/CP/SOB/D. States that angiogram with stenting with Dr. Damon was without complication. Denies any further pedal complaints at this time Objective - Vital Signs/Intake and Output Vital Signs (last 24 hours): Temp Pulse Resp BP Pulse Ox 98 F 95 H 20 130/70 97 02/12/18 16:36 02/12/18 16:36 02/12/18 16:36 02/12/18 16:36 02/12/18 16:36 - Medications Medications: Current Medications Acetaminophen (Tylenol 325mg Tab) 650 mg PO Q4 PRN PRN Reason: Pain, Mild (1-3) Last Admin: 02/07/18 03:14 Dose: 650 mg Acetaminophen (Tylenol 325mg Tab) 650 mg PO Q4 PRN PRN Reason: TEMP >100 Aspirin (Aspirin) 325 mg PO DAILY [facility] Last Admin: 02/12/18 08:59 Dose: 325 mg Bacitracin (Bacitracin Oint) 1 applic TOP DAILY [facility] Last Admin: 02/12/18 09:01 Dose: 1 applic Bisacodyl (Dulcolax) 10 mg [place] DAILY PRN PRN Reason: Constipation Clopidogrel Bisulfate (Plavix) 75 mg PO DAILY [facility] Last Admin: 02/12/18 09:01 Dose: 75 mg Docusate Sodium (Colace) 100 mg PO DAILY [facility] Last Admin: 02/12/18 08:58 Dose: 100 mg Escitalopram Oxalate (Lexapro) 5 mg PO HS [facility] Last Admin: 02/11/18 21:52 Dose: 5 mg Famotidine (Pepcid) 20 mg PO DAILY [facility] Last Admin: 02/12/18 09:00 Dose: 20 mg Ferrous Sulfate (Feosol) 325 mg PO DAILY [facility] Last Admin: 02/12/18 08:58 Dose: 325 mg Furosemide (Lasix) 20 mg PO DAILY [facility] Last Admin: 02/03/18 09:54 Dose: 20 mg Glipizide (Glucotrol Xl) 2.5 mg PO DAILY [facility] Last Admin: 02/12/18 09:00 Dose: 2.5 mg Home Med (Hydrogen Peroxide [Peroxyl Dental Rinse]) 1 appl TOP MOWEFR [facility] Hydroxyzine HCl (Atarax) 10 mg PO TID PRN PRN Reason: pruritis Last Admin: 02/12/18 17:49 Dose: 10 mg Piperacillin Sod/Tazobactam (Sod 2.25 gm/ Sodium Chloride) 100 mls @ 100 mls/ hr IVPB Q8 [facility] PRN Reason: Protocol Last Admin: 02/12/18 17:25 Dose: 100 mls/hr Amikacin Sulfate 350 mg/ (Sodium Chloride) 101.4 mls @ 101.4 mls/hr IVPB Q24H [facility] PRN Reason: Protocol Last Admin: 02/12/18 15:35 Dose: 101.4 mls/hr Lactobacillus Acidophilus (Bacid Acidophilus) 1 cap PO BID [facility] Last Admin: 02/12/18 17:25 Dose: 1 cap Magnesium Hydroxide (Milk Of Magnesia) 30 ml PO HS PRN PRN Reason: Constipation Last Admin: 02/02/18 21:33 Dose: 30 ml Memantine (Namenda) 5 mg PO BID [facility] Last Admin: 02/12/18 17:22 Dose: 5 mg Methimazole (Tapazole) 5 mg PO DAILY [facility] Last Admin: 02/12/18 08:59 Dose: 5 mg Miconazole Nitrate (Critic-Aid Clear Af) 1 applic TOP BID [facility] Last Admin: 02/12/18 17:22 Dose: 1 applic Oxycodone/Acetaminophen (Percocet 5/325 Mg Tab) 1 tab PO Q4 PRN PRN Reason: Pain, moderate (4-7) Stop: 02/15/18 19:40 Oxycodone/Acetaminophen (Percocet 5/325 Mg Tab) 2 tab PO Q4 PRN PRN Reason: Pain, severe (8-10) Stop: 02/15/18 19:40 Petrolatum (Desitin Maximum Strength Topical 40% Oint) 1 applic TOP QSHIFT [facility] Last Admin: 02/04/18 09:36 Dose: 1 applic Risperidone (Risperidone Odt 0.25mg) 0.25 mg PO Q12 PRN PRN Reason: Psychosis Last Admin: 02/12/18 09:00 Dose: 0.25 mg - Labs Labs: 02/12/18 06:00 02/12/18 06:00 PT 13.7 Seconds (9.8-13.1) H 02/06/18 06:00 INR 1.2 (0.9-1.2) 02/06/18 06:00 APTT 26.5 Seconds (25.6-37.1) 02/06/18 06:00 - Constitutional Appears: Well, Non-toxic, No Acute Distress - Head Exam Head Exam: ATRAUMATIC, NORMOCEPHALIC - Extremities Exam Additional comments: Vasc: DP pulses and PT pulses nonpalpable, +2 pitting edema to bilateral LE, TG cool to cool, CFT delayed to digits Neuro: Epicritic and protective sensation grossly intact bilaterally Derm: Multiple ulcerations noted to the entire lower extremity with mixture of fibrotic/necrotic wound base: Erythema to the entire LE R>L, malodorous, all sites (-) for purulence, fluctuance, probe to bone, tunneling or undermining. RIGHT- Necrotic right heel eschar unstagable with no drainage noted. Ulceration noted measuring 7cm x 6cm x 0.1cm to posterior right leg mid calf with multiple vesicles noted to the medial aspect of the leg. Wound base necrotic in nature, odorous, erythema has slightly improved, no tunneling, no probe to bone or tendon exposed. Ulcerations to dorsum of right digits 1, 2, 3, 4 with necrotic base, nail plate from nail bed of digits right 2, 3, 4 are absent, wound bed has become more necrotic LEFT- Superficial ulceration measuring 4cm x 1.5cm x 0.1cm noted to anteromedial left leg. Lysed blister noted to the left heel. Granular in nature. Ulceration site noted to dorsum of L foot with wound base 100% fibrotic , measuring 4cm x 4.5cm x 0.2cm. Jennifer wound exhibits epithelization with healthy pink skin edges noted to dorsal left foot ulcer site. No malodor present today, no fluctuance, no probe to bone, no tunneling or no undermining. Ulcerations to distal and dorsum of the left digits 1 and 2 with fibrotic base and macerated periwound. Ortho: All ulceration sites are exquisitely tender to palpation. No other gross musculoskeletal deformities noted - Neurological Exam Neurological Exam: Alert, Awake, Oriented x3 - Psychiatric Exam Psychiatric exam: Normal Affect, Normal Mood Assessment and Plan - Assessment and Plan (Free Text) Assessment: 77F seen and evaluated at bedside for multiple b/l LE ulcerations Plan: Patient seen and evaluated Plan discussed with attending Dr. Briseno Afebrile Continue abx per ID Wound cx Enterobacter Cloacae, Providencia Rettgeri Patient underwent CTA with stent placement with Dr. Damon yesterday at [facility] No plan for further surgical procedure at this time Will continue to treat with conservative wound care Wounds dressed with adaptic, ABD, DSD, CHAITANYA Podiatry will continue to follow while patient in house
[2018-02-13] MEDS: Oxycodone/Acetaminophen 5/325 mg Tab PO PRN (00:59)
[2018-02-13] MEDS: methIMAzole 5 MG TAB PO SCH (09:18)
[2018-02-13] MEDS: DESTIN OINT TOP SCH ×2 (09:19→21:32)
[2018-02-13] MEDS: GlipiZIDE 2.5 mg SR Tab PO SCH (09:19)
[2018-02-13] MEDS: Critic-Aid Clear AF TOP SCH ×2 (09:19→16:14)
[2018-02-13] MEDS: Bacitracin OINT 15GM TOP SCH (09:19)
[2018-02-13] MEDS: Lactobacillus Acidophilus 500 MU Cap PO SCH ×3 (09:21→16:14)
--- NOTE | 2018-02-13 09:51 | CP.PCM.PN ---
Subjective - Date & Time of Evaluation Date of Evaluation: 02/13/18 Time of Evaluation: 09:15 - Subjective Subjective: NO CHEST PAIN OR SOB FEELS OK TODAY Objective - Vital Signs/Intake and Output Vital Signs (last 24 hours): Temp Pulse Resp BP Pulse Ox 97.4 F L 86 20 113/67 96 02/13/18 07:56 02/13/18 07:56 02/13/18 07:56 02/13/18 07:56 02/13/18 07:56 - Medications Medications: Current Medications Acetaminophen (Tylenol 325mg Tab) 650 mg PO Q4 PRN PRN Reason: Pain, Mild (1-3) Last Admin: 02/07/18 03:14 Dose: 650 mg Acetaminophen (Tylenol 325mg Tab) 650 mg PO Q4 PRN PRN Reason: TEMP >100 Aspirin (Aspirin) 325 mg PO DAILY [facility] Last Admin: 02/13/18 09:29 Dose: Not Given Bacitracin (Bacitracin Oint) 1 applic TOP DAILY [facility] Last Admin: 02/13/18 09:19 Dose: 1 applic Bisacodyl (Dulcolax) 10 mg [place] DAILY PRN PRN Reason: Constipation Clopidogrel Bisulfate (Plavix) 75 mg PO DAILY [facility] Last Admin: 02/13/18 09:18 Dose: 75 mg Docusate Sodium (Colace) 100 mg PO DAILY [facility] Last Admin: 02/13/18 09:29 Dose: Not Given Escitalopram Oxalate (Lexapro) 5 mg PO HS [facility] Last Admin: 02/12/18 21:52 Dose: 5 mg Famotidine (Pepcid) 20 mg PO DAILY [facility] Last Admin: 02/13/18 09:18 Dose: 20 mg Ferrous Sulfate (Feosol) 325 mg PO DAILY [facility] Last Admin: 02/13/18 09:29 Dose: Not Given Furosemide (Lasix) 20 mg PO DAILY [facility] Last Admin: 02/03/18 09:54 Dose: 20 mg Glipizide (Glucotrol Xl) 2.5 mg PO DAILY [facility] Last Admin: 02/13/18 09:19 Dose: 2.5 mg Home Med (Hydrogen Peroxide [Peroxyl Dental Rinse]) 1 appl TOP MOWEFR [facility] Hydroxyzine HCl (Atarax) 10 mg PO TID PRN PRN Reason: pruritis Last Admin: 02/12/18 17:49 Dose: 10 mg Piperacillin Sod/Tazobactam (Sod 2.25 gm/ Sodium Chloride) 100 mls @ 100 mls/ hr IVPB Q8 [facility] PRN Reason: Protocol Last Admin: 02/13/18 09:17 Dose: 100 mls/hr Amikacin Sulfate 350 mg/ (Sodium Chloride) 101.4 mls @ 101.4 mls/hr IVPB Q24H [facility] PRN Reason: Protocol Last Admin: 02/12/18 15:35 Dose: 101.4 mls/hr Lactobacillus Acidophilus (Bacid Acidophilus) 1 cap PO BID [facility] Last Admin: 02/13/18 09:27 Dose: 1 cap Magnesium Hydroxide (Milk Of Magnesia) 30 ml PO HS PRN PRN Reason: Constipation Last Admin: 02/02/18 21:33 Dose: 30 ml Memantine (Namenda) 5 mg PO BID [facility] Last Admin: 02/13/18 09:28 Dose: Not Given Methimazole (Tapazole) 5 mg PO DAILY [facility] Last Admin: 02/13/18 09:18 Dose: 5 mg Miconazole Nitrate (Critic-Aid Clear Af) 1 applic TOP BID [facility] Last Admin: 02/13/18 09:19 Dose: 1 applic Oxycodone/Acetaminophen (Percocet 5/325 Mg Tab) 1 tab PO Q4 PRN PRN Reason: Pain, moderate (4-7) Stop: 02/15/18 19:40 Last Admin: 02/13/18 00:59 Dose: 1 tab Oxycodone/Acetaminophen (Percocet 5/325 Mg Tab) 2 tab PO Q4 PRN PRN Reason: Pain, severe (8-10) Stop: 02/15/18 19:40 Petrolatum (Desitin Maximum Strength Topical 40% Oint) 1 applic TOP QSHIFT [facility] Last Admin: 02/13/18 09:19 Dose: 1 applic Risperidone (Risperidone Odt 0.25mg) 0.25 mg PO Q12 PRN PRN Reason: Psychosis Last Admin: 02/12/18 09:00 Dose: 0.25 mg - Labs Labs: 02/12/18 06:00 02/12/18 06:00 PT 13.7 Seconds (9.8-13.1) H 02/06/18 06:00 INR 1.2 (0.9-1.2) 02/06/18 06:00 APTT 26.5 Seconds (25.6-37.1) 02/06/18 06:00 - Respiratory Exam Respiratory Exam: Clear to Ausculation Bilateral - Cardiovascular Exam Cardiovascular Exam: REGULAR RHYTHM, +S1, +S2 - Extremities Exam Additional comments: BILAT LE PULSES ARE BETTER TOES ARE STILL CYANOTIC/GANGRENOUS Assessment and Plan - Assessment and Plan (Free Text) Assessment: CAD HYPERTENSION SEVERE PAD WITH LE INTERVENTION 02/11 DM Plan: CONTINUE ANTIBIOTICS, ASPIRIN, CLOPIDOGREL, GLIPIZIDE
--- NOTE | 2018-02-13 16:03 | CP.PCM.PN ---
Subjective - Date & Time of Evaluation Date of Evaluation: 02/13/18 Time of Evaluation: 13:00 - Subjective Subjective: Legs feeling better. Objective - Vital Signs/Intake and Output Vital Signs (last 24 hours): Temp Pulse Resp BP Pulse Ox 97.4 F L 86 20 113/67 96 02/13/18 07:56 02/13/18 07:56 02/13/18 07:56 02/13/18 07:56 02/13/18 07:56 - Medications Medications: Current Medications Acetaminophen (Tylenol 325mg Tab) 650 mg PO Q4 PRN PRN Reason: Pain, Mild (1-3) Last Admin: 02/07/18 03:14 Dose: 650 mg Acetaminophen (Tylenol 325mg Tab) 650 mg PO Q4 PRN PRN Reason: TEMP >100 Aspirin (Aspirin) 325 mg PO DAILY [facility] Last Admin: 02/13/18 09:29 Dose: Not Given Bacitracin (Bacitracin Oint) 1 applic TOP DAILY [facility] Last Admin: 02/13/18 09:19 Dose: 1 applic Bisacodyl (Dulcolax) 10 mg [place] DAILY PRN PRN Reason: Constipation Clopidogrel Bisulfate (Plavix) 75 mg PO DAILY [facility] Last Admin: 02/13/18 09:18 Dose: 75 mg Docusate Sodium (Colace) 100 mg PO DAILY [facility] Last Admin: 02/13/18 09:29 Dose: Not Given Escitalopram Oxalate (Lexapro) 5 mg PO HS [facility] Last Admin: 02/12/18 21:52 Dose: 5 mg Famotidine (Pepcid) 20 mg PO DAILY [facility] Last Admin: 02/13/18 09:18 Dose: 20 mg Ferrous Sulfate (Feosol) 325 mg PO DAILY [facility] Last Admin: 02/13/18 09:29 Dose: Not Given Furosemide (Lasix) 20 mg PO DAILY [facility] Last Admin: 02/03/18 09:54 Dose: 20 mg Glipizide (Glucotrol Xl) 2.5 mg PO DAILY [facility] Last Admin: 02/13/18 09:19 Dose: 2.5 mg Home Med (Hydrogen Peroxide [Peroxyl Dental Rinse]) 1 appl TOP MOWEFR [facility] Hydroxyzine HCl (Atarax) 10 mg PO TID PRN PRN Reason: pruritis Last Admin: 02/12/18 17:49 Dose: 10 mg Piperacillin Sod/Tazobactam (Sod 2.25 gm/ Sodium Chloride) 100 mls @ 100 mls/ hr IVPB Q8 [facility] PRN Reason: Protocol Last Admin: 02/13/18 09:17 Dose: 100 mls/hr Amikacin Sulfate 350 mg/ (Sodium Chloride) 101.4 mls @ 101.4 mls/hr IVPB Q24H [facility] PRN Reason: Protocol Last Admin: 02/13/18 12:12 Dose: 101.4 mls/hr Lactobacillus Acidophilus (Bacid Acidophilus) 1 cap PO BID [facility] Last Admin: 02/13/18 09:27 Dose: 1 cap Magnesium Hydroxide (Milk Of Magnesia) 30 ml PO HS PRN PRN Reason: Constipation Last Admin: 02/02/18 21:33 Dose: 30 ml Memantine (Namenda) 5 mg PO BID [facility] Last Admin: 02/13/18 09:28 Dose: Not Given Methimazole (Tapazole) 5 mg PO DAILY [facility] Last Admin: 02/13/18 09:18 Dose: 5 mg Miconazole Nitrate (Critic-Aid Clear Af) 1 applic TOP BID [facility] Last Admin: 02/13/18 09:19 Dose: 1 applic Oxycodone/Acetaminophen (Percocet 5/325 Mg Tab) 1 tab PO Q4 PRN PRN Reason: Pain, moderate (4-7) Stop: 02/15/18 19:40 Last Admin: 02/13/18 00:59 Dose: 1 tab Oxycodone/Acetaminophen (Percocet 5/325 Mg Tab) 2 tab PO Q4 PRN PRN Reason: Pain, severe (8-10) Stop: 02/15/18 19:40 Petrolatum (Desitin Maximum Strength Topical 40% Oint) 1 applic TOP QSHIFT [facility] Last Admin: 02/13/18 09:19 Dose: 1 applic Risperidone (Risperidone Odt 0.25mg) 0.25 mg PO Q12 PRN PRN Reason: Psychosis Last Admin: 02/12/18 09:00 Dose: 0.25 mg - Labs Labs: 02/12/18 06:00 02/12/18 06:00 PT 13.7 Seconds (9.8-13.1) H 02/06/18 06:00 INR 1.2 (0.9-1.2) 02/06/18 06:00 APTT 26.5 Seconds (25.6-37.1) 02/06/18 06:00 - Head Exam Head Exam: ATRAUMATIC - Eye Exam Eye Exam: Normal appearance - Respiratory Exam Respiratory Exam: NORMAL BREATHING PATTERN - Cardiovascular Exam Cardiovascular Exam: +S1, +S2 - GI/Abdominal Exam GI & Abdominal Exam: Normal Bowel Sounds Assessment and Plan (1) Anemia Assessment & Plan: anemia of chronic disease, fluctuating renal function on PO iron s/p Procrit Status: Acute (2) Leukocytosis Assessment & Plan: on antibiotics Status: Acute
--- NOTE | 2018-02-13 20:41 | CP.PCM.PN ---
Subjective - Date & Time of Evaluation Date of Evaluation: 02/13/18 Time of Evaluation: 22:22 - Subjective Subjective: S/P Angioplasty WBC 15k Objective - Vital Signs/Intake and Output Vital Signs (last 24 hours): Temp Pulse Resp BP Pulse Ox 98.8 F 97 H 20 115/61 95 02/13/18 16:18 02/13/18 16:18 02/13/18 16:18 02/13/18 16:18 02/13/18 16:18 - Medications Medications: Current Medications Acetaminophen (Tylenol 325mg Tab) 650 mg PO Q4 PRN PRN Reason: Pain, Mild (1-3) Last Admin: 02/07/18 03:14 Dose: 650 mg Acetaminophen (Tylenol 325mg Tab) 650 mg PO Q4 PRN PRN Reason: TEMP >100 Aspirin (Aspirin) 325 mg PO DAILY [facility] Last Admin: 02/13/18 09:29 Dose: Not Given Bacitracin (Bacitracin Oint) 1 applic TOP DAILY [facility] Last Admin: 02/13/18 09:19 Dose: 1 applic Bisacodyl (Dulcolax) 10 mg [place] DAILY PRN PRN Reason: Constipation Clopidogrel Bisulfate (Plavix) 75 mg PO DAILY [facility] Last Admin: 02/13/18 09:18 Dose: 75 mg Docusate Sodium (Colace) 100 mg PO DAILY [facility] Last Admin: 02/13/18 09:29 Dose: Not Given Escitalopram Oxalate (Lexapro) 5 mg PO HS [facility] Last Admin: 02/12/18 21:52 Dose: 5 mg Famotidine (Pepcid) 20 mg PO DAILY [facility] Last Admin: 02/13/18 09:18 Dose: 20 mg Ferrous Sulfate (Feosol) 325 mg PO DAILY [facility] Last Admin: 02/13/18 09:29 Dose: Not Given Furosemide (Lasix) 20 mg PO DAILY [facility] Last Admin: 02/03/18 09:54 Dose: 20 mg Glipizide (Glucotrol Xl) 2.5 mg PO DAILY [facility] Last Admin: 02/13/18 09:19 Dose: 2.5 mg Home Med (Hydrogen Peroxide [Peroxyl Dental Rinse]) [facility] Hydroxyzine HCl (Atarax) 10 mg PO TID PRN PRN Reason: pruritis Last Admin: 02/12/18 17:49 Dose: 10 mg Piperacillin Sod/Tazobactam (Sod 2.25 gm/ Sodium Chloride) 100 mls @ 100 mls/ hr IVPB Q8 [facility] PRN Reason: Protocol Last Admin: 02/13/18 16:16 Dose: 100 mls/hr Amikacin Sulfate 350 mg/ (Sodium Chloride) 101.4 mls @ 101.4 mls/hr IVPB Q24H [facility] PRN Reason: Protocol Last Admin: 02/13/18 12:12 Dose: 101.4 mls/hr Lactobacillus Acidophilus (Bacid Acidophilus) 1 cap PO BID [facility] Last Admin: 02/13/18 16:14 Dose: Not Given Magnesium Hydroxide (Milk Of Magnesia) 30 ml PO HS PRN PRN Reason: Constipation Last Admin: 02/02/18 21:33 Dose: 30 ml Memantine (Namenda) 5 mg PO BID [facility] Last Admin: 02/13/18 16:14 Dose: Not Given Methimazole (Tapazole) 5 mg PO DAILY [facility] Last Admin: 02/13/18 09:18 Dose: 5 mg Miconazole Nitrate (Critic-Aid Clear Af) 1 applic TOP BID [facility] Last Admin: 02/13/18 16:14 Dose: 1 applic Oxycodone/Acetaminophen (Percocet 5/325 Mg Tab) 1 tab PO Q4 PRN PRN Reason: Pain, moderate (4-7) Stop: 02/15/18 19:40 Last Admin: 02/13/18 00:59 Dose: 1 tab Oxycodone/Acetaminophen (Percocet 5/325 Mg Tab) 2 tab PO Q4 PRN PRN Reason: Pain, severe (8-10) Stop: 02/15/18 19:40 Petrolatum (Desitin Maximum Strength Topical 40% Oint) 1 applic TOP QSHIFT [facility] Last Admin: 02/13/18 09:19 Dose: 1 applic Risperidone (Risperidone Odt 0.25mg) 0.25 mg PO Q12 PRN PRN Reason: Psychosis Last Admin: 02/12/18 09:00 Dose: 0.25 mg - Labs Labs: 02/12/18 06:00 02/12/18 06:00 PT 13.7 Seconds (9.8-13.1) H 02/06/18 06:00 INR 1.2 (0.9-1.2) 02/06/18 06:00 APTT 26.5 Seconds (25.6-37.1) 02/06/18 06:00 - Respiratory Exam Respiratory Exam: NORMAL BREATHING PATTERN - Cardiovascular Exam Cardiovascular Exam: REGULAR RHYTHM - GI/Abdominal Exam GI & Abdominal Exam: Normal Bowel Sounds Assessment and Plan - Assessment and Plan (Free Text) Assessment: Low ext edema cellulitis Significant Periphereal Arterial Occlusive dx Wound cs Serratia S/P Angioplasty report pending Leg elevation IV ABX Zosyn/ Daptomycin ID Podiatry Surgery Physiatry Vascular ABBEY/ CKD creat improved Nephrology IVF Psychiatric dx?? Ultram?? Adj disorder with depression Psychiatry SSRI Resperidol CHF Diastolic CAD stress thalium scarring ischemia?? cardiac cath refused?? Cardiology Hx COPD L Pleural effusion Pulmonary Hx Anemia Chronic dx ASA d/c as outpt due to dec Hbg S/P Procrit transfusion NIDDM Thyroid dx
[2018-02-14] MEDS: Oxycodone/Acetaminophen 5/325 mg Tab PO PRN ×2 (05:42→20:35)
--- NOTE | 2018-02-14 08:44 | CP.PCM.PN ---
Subjective - Date & Time of Evaluation Date of Evaluation: 02/13/18 Time of Evaluation: 08:42 - Subjective Subjective: s/p DIRECTOR OF EMERGENCY NURSING of bilateral iliacs pain improved Objective - Vital Signs/Intake and Output Vital Signs (last 24 hours): Temp Pulse Resp BP Pulse Ox 98.0 F 75 18 103/61 94 L 02/14/18 07:54 02/14/18 07:54 02/14/18 07:54 02/14/18 07:54 02/14/18 07:54 - Medications Medications: Current Medications Acetaminophen (Tylenol 325mg Tab) 650 mg PO Q4 PRN PRN Reason: Pain, Mild (1-3) Last Admin: 02/07/18 03:14 Dose: 650 mg Acetaminophen (Tylenol 325mg Tab) 650 mg PO Q4 PRN PRN Reason: TEMP >100 Aspirin (Aspirin) 325 mg PO DAILY [facility] Last Admin: 02/13/18 21:33 Dose: 325 mg Bacitracin (Bacitracin Oint) 1 applic TOP DAILY [facility] Last Admin: 02/13/18 09:19 Dose: 1 applic Bisacodyl (Dulcolax) 10 mg [place] DAILY PRN PRN Reason: Constipation Clopidogrel Bisulfate (Plavix) 75 mg PO DAILY [facility] Last Admin: 02/13/18 09:18 Dose: 75 mg Docusate Sodium (Colace) 100 mg PO DAILY [facility] Last Admin: 02/13/18 21:33 Dose: 100 mg Escitalopram Oxalate (Lexapro) 5 mg PO HS [facility] Last Admin: 02/13/18 21:32 Dose: 5 mg Famotidine (Pepcid) 20 mg PO DAILY [facility] Last Admin: 02/13/18 09:18 Dose: 20 mg Ferrous Sulfate (Feosol) 325 mg PO DAILY [facility] Last Admin: 02/13/18 09:29 Dose: Not Given Furosemide (Lasix) 20 mg PO DAILY [facility] Last Admin: 02/03/18 09:54 Dose: 20 mg Glipizide (Glucotrol Xl) 2.5 mg PO DAILY [facility] Last Admin: 02/13/18 09:19 Dose: 2.5 mg Home Med (Hydrogen Peroxide [Peroxyl Dental Rinse]) 1 appl TOP MOWEFR [facility] Hydroxyzine HCl (Atarax) 10 mg PO TID PRN PRN Reason: pruritis Last Admin: 02/13/18 21:32 Dose: 10 mg Piperacillin Sod/Tazobactam (Sod 2.25 gm/ Sodium Chloride) 100 mls @ 100 mls/ hr IVPB Q8 [facility] PRN Reason: Protocol Last Admin: 02/14/18 01:05 Dose: 100 mls/hr Amikacin Sulfate 350 mg/ (Sodium Chloride) 101.4 mls @ 101.4 mls/hr IVPB Q24H [facility] PRN Reason: Protocol Last Admin: 02/13/18 12:12 Dose: 101.4 mls/hr Lactobacillus Acidophilus (Bacid Acidophilus) 1 cap PO BID [facility] Last Admin: 02/13/18 16:14 Dose: Not Given Magnesium Hydroxide (Milk Of Magnesia) 30 ml PO HS PRN PRN Reason: Constipation Last Admin: 02/02/18 21:33 Dose: 30 ml Memantine (Namenda) 5 mg PO BID [facility] Last Admin: 02/13/18 21:33 Dose: 5 mg Methimazole (Tapazole) 5 mg PO DAILY [facility] Last Admin: 02/13/18 09:18 Dose: 5 mg Miconazole Nitrate (Critic-Aid Clear Af) 1 applic TOP BID [facility] Last Admin: 02/13/18 16:14 Dose: 1 applic Oxycodone/Acetaminophen (Percocet 5/325 Mg Tab) 1 tab PO Q4 PRN PRN Reason: Pain, moderate (4-7) Stop: 02/15/18 19:40 Last Admin: 02/14/18 05:42 Dose: 1 tab Oxycodone/Acetaminophen (Percocet 5/325 Mg Tab) 2 tab PO Q4 PRN PRN Reason: Pain, severe (8-10) Stop: 02/15/18 19:40 Petrolatum (Desitin Maximum Strength Topical 40% Oint) 1 applic TOP QSHIFT [facility] Last Admin: 02/13/18 21:32 Dose: 1 applic Risperidone (Risperidone Odt 0.25mg) 0.25 mg PO Q12 PRN PRN Reason: Psychosis Last Admin: 02/12/18 09:00 Dose: 0.25 mg - Labs Labs: 02/12/18 06:00 02/12/18 06:00 PT 13.7 Seconds (9.8-13.1) H 02/06/18 06:00 INR 1.2 (0.9-1.2) 02/06/18 06:00 APTT 26.5 Seconds (25.6-37.1) 02/06/18 06:00 - Constitutional Appears: Well - Head Exam Head Exam: ATRAUMATIC, NORMAL INSPECTION, NORMOCEPHALIC - Eye Exam Eye Exam: EOMI, Normal appearance, PERRL Pupil Exam: NORMAL ACCOMODATION, PERRL - ENT Exam ENT Exam: Mucous Membranes Moist, Normal Exam - Neck Exam Neck Exam: Full ROM, Normal Inspection. absent: Lymphadenopathy - Respiratory Exam Respiratory Exam: Clear to Ausculation Bilateral, NORMAL BREATHING PATTERN - Cardiovascular Exam Cardiovascular Exam: REGULAR RHYTHM, +S1, +S2, Murmur - GI/Abdominal Exam GI & Abdominal Exam: Soft, Normal Bowel Sounds. absent: Tenderness - Extremities Exam Extremities Exam: absent: Joint Swelling, Pedal Edema Additional comments: gangrenous toes wrapped in dressing - Back Exam Back Exam: NORMAL INSPECTION - Neurological Exam Neurological Exam: Alert, Awake, CN II-XII Intact, Oriented x3 - Psychiatric Exam Psychiatric exam: Normal Affect, Normal Mood - Skin Skin Exam: Dry, Intact, Normal Color, Warm Assessment and Plan (1) PVD (peripheral vascular disease) Assessment & Plan: s/p bilateral iliac stenting has severe residual SFA disease cont aggressive medical therapy DAPT PT/OT defer amputation for now Status: Acute (2) ABBEY (acute kidney injury) Status: Acute (3) Edema of both lower extremities due to peripheral venous insufficiency Status: Chronic (4) 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 (5) Cellulitis, leg Assessment & Plan: abx per primary team Status: Acute
--- NOTE | 2018-02-14 08:50 | PCM.BM ---
- Diagnosis (1) PVD (peripheral vascular disease) Status: Acute Interventions: 02/14/18 08:48 [place] [address] Health Information Management Vascular Procedure : [id number] Draft Patient: XIOMY SILVA Unit: [id number] : 1940 [facility] Age/Sex: 77 / F ADM Status: ADM IN ADM Date: DIS Date: Copied To: Copied To Cosigner: Attending MD: Jimbo Cintron MD DATE: 02/11/2018 INDICATIONS: The patient is a 77-year-old female, admitted to 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 Therefore, she was brought for intervention of bilateral inflow disease. PROCEDURE PERFORMED: Distal abdominal aortogram with bilateral iliac runoff, selective iliofemoral angiogram with runoff, NON LINEAR EDITOR stenting of right common iliac artery with use of 7 x 57 mm Visi-Pro in the right common iliac artery, and subsequently PTCA stenting of right external iliac artery with a 6 x 17 mm Visi-Pro. PTCA stenting of the left common iliac artery with a 9 x 27 mm Visi-Pro. Final kissing balloon angioplasty with bilateral common iliac arteries, 8-Portuguese left femoral arterial access, 7-Portuguese right femoral venous access. Manual pressure for hemostasis. Angiographic findings: Right common iliac 100% occluded, left common iliac ostial 80% calcified lesion. Right external iliac 70% to 80% stenosis. Right lower extremity findings, profunda femoris patent. SFA 100% occluded reconstitution of flow, overflow noted below the knee. Left profunda femoris patent. SFA 100% occluded with collateral flow noted below the knee. Hemodynamics: Right common femoral on initial access had a 70 mm pressure. There was an 80 mm gradient from the aorta to the right common femoral artery which resolved after the trending of the right common iliac and external iliac. Left common femoral, it was a 40 mm pressure gradient, which is all after deployment of the stent in the common iliac artery. IMPRESSION: Successful angioplasty of bilateral common iliac and right external iliac with use of balloon planner with bare-metal stents. RECOMMENDATIONS: The patient is to undergo removal of the sheath. Be observed in [facility] for six hours and be transferred back to [place] around 6 p.m. If the patient needs to be considered for staged intervention of the SFAs, if her symptoms of pain does not resolve, continue the patient to do antibiotic therapy, aspirin, statin, beta-blockers, Plavix, CHAITANYA inhibitors. Thank you Dr. Cintron, Dr. Stockton and Dr. Cardoso for letting me participate in the care of this patient. Reyes Damon MD cc: Dr. Young. Dr. Stockton. Dr. Cardoso Dictated By: Reyes Damon MD Transcribed Date and Time: 02/11/18 2142 (2) ABBEY (acute kidney injury) Status: Acute Interventions: follow Cr (3) Edema of both lower extremities due to peripheral venous insufficiency Status: Chronic Interventions: meds (4) 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 Interventions: meds (5) Cellulitis, leg Status: Acute
[2018-02-14] MEDS: Critic-Aid Clear AF TOP SCH ×2 (08:54→16:14)
[2018-02-14] MEDS: Bacitracin OINT 15GM TOP SCH (08:55)
[2018-02-14] MEDS: DESTIN OINT TOP SCH ×2 (08:55→20:47)
[2018-02-14] MEDS: Lactobacillus Acidophilus 500 MU Cap PO SCH ×2 (08:56→16:15)
[2018-02-14] MEDS: GlipiZIDE 2.5 mg SR Tab PO SCH (08:57)
[2018-02-14] MEDS: methIMAzole 5 MG TAB PO SCH (08:57)
--- NOTE | 2018-02-14 10:45 | CP.PCM.PN ---
Subjective - Date & Time of Evaluation Date of Evaluation: 02/14/18 Time of Evaluation: 10:42 - Subjective Subjective: Podiatry Progress Note for Dr. Briseno 77F seen and evaluated at bedside for multiple b/l LE ulcerations. Patient is AAO x 3 and NAD, resting in bed. She states she is experiencing continued pain in her legs. Denies any acute overnight events. Denies any recent N/V/F/C/CP/SOB /D. Denies any further pedal complaints at this time Objective - Vital Signs/Intake and Output Vital Signs (last 24 hours): Temp Pulse Resp BP Pulse Ox 98.0 F 75 18 103/61 94 L 02/14/18 07:54 02/14/18 07:54 02/14/18 07:54 02/14/18 07:54 02/14/18 07:54 - Medications Medications: Current Medications Acetaminophen (Tylenol 325mg Tab) 650 mg PO Q4 PRN PRN Reason: Pain, Mild (1-3) Last Admin: 02/07/18 03:14 Dose: 650 mg Acetaminophen (Tylenol 325mg Tab) 650 mg PO Q4 PRN PRN Reason: TEMP >100 Aspirin (Aspirin) 325 mg PO DAILY [facility] Last Admin: 02/14/18 08:58 Dose: 325 mg Bacitracin (Bacitracin Oint) 1 applic TOP DAILY [facility] Last Admin: 02/14/18 08:55 Dose: 1 applic Bisacodyl (Dulcolax) 10 mg [place] DAILY PRN PRN Reason: Constipation Clopidogrel Bisulfate (Plavix) 75 mg PO DAILY [facility] Last Admin: 02/14/18 08:55 Dose: 75 mg Docusate Sodium (Colace) 100 mg PO DAILY [facility] Last Admin: 02/14/18 08:57 Dose: 100 mg Escitalopram Oxalate (Lexapro) 5 mg PO HS [facility] Last Admin: 02/13/18 21:32 Dose: 5 mg Famotidine (Pepcid) 20 mg PO DAILY [facility] Last Admin: 02/14/18 08:56 Dose: 20 mg Ferrous Sulfate (Feosol) 325 mg PO DAILY [facility] Last Admin: 02/14/18 08:55 Dose: 325 mg Furosemide (Lasix) 20 mg PO DAILY [facility] Last Admin: 02/03/18 09:54 Dose: 20 mg Glipizide (Glucotrol Xl) 2.5 mg PO DAILY [facility] Last Admin: 02/14/18 08:57 Dose: 2.5 mg Home Med (Hydrogen Peroxide [Peroxyl Dental Rinse]) 1 appl TOP MOWEFR [facility] Hydroxyzine HCl (Atarax) 10 mg PO TID PRN PRN Reason: pruritis Last Admin: 02/13/18 21:32 Dose: 10 mg Piperacillin Sod/Tazobactam (Sod 2.25 gm/ Sodium Chloride) 100 mls @ 100 mls/ hr IVPB Q8 [facility] PRN Reason: Protocol Last Admin: 02/14/18 08:54 Dose: 100 mls/hr Amikacin Sulfate 350 mg/ (Sodium Chloride) 101.4 mls @ 101.4 mls/hr IVPB Q24H [facility] PRN Reason: Protocol Last Admin: 02/13/18 12:12 Dose: 101.4 mls/hr Lactobacillus Acidophilus (Bacid Acidophilus) 1 cap PO BID [facility] Last Admin: 02/14/18 08:56 Dose: 1 cap Magnesium Hydroxide (Milk Of Magnesia) 30 ml PO HS PRN PRN Reason: Constipation Last Admin: 02/02/18 21:33 Dose: 30 ml Memantine (Namenda) 5 mg PO BID [facility] Last Admin: 02/14/18 08:55 Dose: 5 mg Methimazole (Tapazole) 5 mg PO DAILY [facility] Last Admin: 02/14/18 08:57 Dose: 5 mg Miconazole Nitrate (Critic-Aid Clear Af) 1 applic TOP BID [facility] Last Admin: 02/14/18 08:54 Dose: 1 applic Oxycodone/Acetaminophen (Percocet 5/325 Mg Tab) 1 tab PO Q4 PRN PRN Reason: Pain, moderate (4-7) Stop: 02/15/18 19:40 Last Admin: 02/14/18 05:42 Dose: 1 tab Oxycodone/Acetaminophen (Percocet 5/325 Mg Tab) 2 tab PO Q4 PRN PRN Reason: Pain, severe (8-10) Stop: 02/15/18 19:40 Petrolatum (Desitin Maximum Strength Topical 40% Oint) 1 applic TOP QSHIFT [facility] Last Admin: 02/14/18 08:55 Dose: 1 applic Risperidone (Risperidone Odt 0.25mg) 0.25 mg PO Q12 PRN PRN Reason: Psychosis Last Admin: 02/12/18 09:00 Dose: 0.25 mg - Labs Labs: 02/12/18 06:00 02/12/18 06:00 PT 13.7 Seconds (9.8-13.1) H 02/06/18 06:00 INR 1.2 (0.9-1.2) 02/06/18 06:00 APTT 26.5 Seconds (25.6-37.1) 02/06/18 06:00 - Constitutional Appears: Well, Non-toxic, No Acute Distress - Head Exam Head Exam: ATRAUMATIC, NORMOCEPHALIC - Extremities Exam Additional comments: Vasc: DP pulses and PT pulses nonpalpable, +2 pitting edema to bilateral LE, TG cool to cool, CFT delayed to digits/not attainable due to necrosis of 2-5 on right foot Neuro: Epicritic and protective sensation grossly intact bilaterally Derm: Multiple ulcerations noted to the entire lower extremity with mixture of fibrotic/necrotic wound base: Erythema to the entire LE R>L, malodorous, all sites (-) for purulence, fluctuance, probe to bone, tunneling or undermining. Mildly improved granulation to right medial leg wound RIGHT- Necrotic right heel eschar unstagable with no drainage noted. Ulceration noted measuring 7cm x 6cm x 0.1cm to posterior right leg mid calf with multiple vesicles noted to the medial aspect of the leg. Wound base necrotic in nature, odorous, erythema has slightly improved, no tunneling, no probe to bone or tendon exposed. Ulcerations to dorsum of right digits 1, 2, 3, 4 with necrotic base, nail plate from nail bed of digits right 2, 3, 4 are absent, wound bed has become more necrotic LEFT- Superficial ulceration measuring 4cm x 1.5cm x 0.1cm noted to anteromedial left leg. Lysed blister noted to the left heel. Granular in nature. Ulceration site noted to dorsum of L foot with wound base 100% fibrotic , measuring 4cm x 4.5cm x 0.2cm. Jennifer wound exhibits epithelization with healthy pink skin edges noted to dorsal left foot ulcer site. No malodor present today, no fluctuance, no probe to bone, no tunneling or no undermining. Ulcerations to distal and dorsum of the left digits 1 and 2 with fibrotic base and macerated periwound. Ortho: All ulceration sites are exquisitely tender to palpation. No other gross musculoskeletal deformities noted. Guarding through duration of examination due to pain. - Neurological Exam Neurological Exam: Alert, Awake, Oriented x3 - Psychiatric Exam Psychiatric exam: Normal Affect, Normal Mood Assessment and Plan - Assessment and Plan (Free Text) Assessment: 77F seen and evaluated at bedside for multiple b/l LE ulcerations Plan: Patient seen and evaluated Plan discussed with attending Dr. Briseno Afebrile Continue abx per ID Wound cx Enterobacter Cloacae, Providencia Rettgeri Patient underwent CTA with stent placement with Dr. Damon two days ago at [facility] Dr. Damon does not want surgical intervention at this time Will continue to treat with conservative wound care Wounds dressed with adaptic, ABD, DSD, CHAITANYA and applied delicately due to pain intolerance Podiatry will continue to follow while patient in house
[2018-02-14 11:13] LABS: HEMOGLOBIN 7.9 g/dL (12.0-16.0); MEAN CELL VOLUME 79.7 fl (81.0-99.0); MEAN CORPUSCULAR HEMOGLOBIN 24.6 pg (27.0-31.0); MEAN CORPUSCULAR HGB CONC 30.9 g/dL (33.0-37.0); RBC 3.21 Mil/uL (3.80-5.20); RED CELL DISTRIBUTION WIDTH 21.5 % (11.5-14.5); WHITE BLOOD COUNT 12.4 K/uL (4.8-10.8)
[2018-02-14 11:25] LABS: BLOOD UREA NITROGEN 25 mg/dl (7-17); CALCIUM 8.1 mg/dL (8.4-10.2); GFR AFRICAN-AMERICAN > 60; GFR NON-AFRICAN AMERICAN > 60
--- NOTE | 2018-02-14 12:05 | CP.PCM.PN ---
Subjective - Date & Time of Evaluation Date of Evaluation: 02/14/18 Time of Evaluation: 10:30 - Subjective Subjective: NO CHEST JOSE CRUZ OR SOB LESS PAIN IN THE LEGS Objective - Vital Signs/Intake and Output Vital Signs (last 24 hours): Temp Pulse Resp BP Pulse Ox 98.0 F 75 18 103/61 94 L 02/14/18 07:54 02/14/18 07:54 02/14/18 07:54 02/14/18 07:54 02/14/18 07:54 - Medications Medications: Current Medications Acetaminophen (Tylenol 325mg Tab) 650 mg PO Q4 PRN PRN Reason: Pain, Mild (1-3) Last Admin: 02/07/18 03:14 Dose: 650 mg Acetaminophen (Tylenol 325mg Tab) 650 mg PO Q4 PRN PRN Reason: TEMP >100 Aspirin (Aspirin) 325 mg PO DAILY [facility] Last Admin: 02/14/18 08:58 Dose: 325 mg Bacitracin (Bacitracin Oint) 1 applic TOP DAILY [facility] Last Admin: 02/14/18 08:55 Dose: 1 applic Bisacodyl (Dulcolax) 10 mg [place] DAILY PRN PRN Reason: Constipation Clopidogrel Bisulfate (Plavix) 75 mg PO DAILY [facility] Last Admin: 02/14/18 08:55 Dose: 75 mg Docusate Sodium (Colace) 100 mg PO DAILY [facility] Last Admin: 02/14/18 08:57 Dose: 100 mg Escitalopram Oxalate (Lexapro) 5 mg PO HS [facility] Last Admin: 02/13/18 21:32 Dose: 5 mg Famotidine (Pepcid) 20 mg PO DAILY [facility] Last Admin: 02/14/18 08:56 Dose: 20 mg Ferrous Sulfate (Feosol) 325 mg PO DAILY [facility] Last Admin: 02/14/18 08:55 Dose: 325 mg Furosemide (Lasix) 20 mg PO DAILY [facility] Last Admin: 02/03/18 09:54 Dose: 20 mg Glipizide (Glucotrol Xl) 2.5 mg PO DAILY [facility] Last Admin: 02/14/18 08:57 Dose: 2.5 mg Home Med (Hydrogen Peroxide [Peroxyl Dental Rinse]) 1 appl TOP MOWEFR [facility] Hydroxyzine HCl (Atarax) 10 mg PO TID PRN PRN Reason: pruritis Last Admin: 02/13/18 21:32 Dose: 10 mg Piperacillin Sod/Tazobactam (Sod 2.25 gm/ Sodium Chloride) 100 mls @ 100 mls/ hr IVPB Q8 [facility] PRN Reason: Protocol Last Admin: 02/14/18 08:54 Dose: 100 mls/hr Amikacin Sulfate 350 mg/ (Sodium Chloride) 101.4 mls @ 101.4 mls/hr IVPB Q24H [facility] PRN Reason: Protocol Last Admin: 02/14/18 11:50 Dose: 101.4 mls/hr Lactobacillus Acidophilus (Bacid Acidophilus) 1 cap PO BID [facility] Last Admin: 02/14/18 08:56 Dose: 1 cap Magnesium Hydroxide (Milk Of Magnesia) 30 ml PO HS PRN PRN Reason: Constipation Last Admin: 02/02/18 21:33 Dose: 30 ml Memantine (Namenda) 5 mg PO BID [facility] Last Admin: 02/14/18 08:55 Dose: 5 mg Methimazole (Tapazole) 5 mg PO DAILY [facility] Last Admin: 02/14/18 08:57 Dose: 5 mg Miconazole Nitrate (Critic-Aid Clear Af) 1 applic TOP BID [facility] Last Admin: 02/14/18 08:54 Dose: 1 applic Oxycodone/Acetaminophen (Percocet 5/325 Mg Tab) 1 tab PO Q4 PRN PRN Reason: Pain, moderate (4-7) Stop: 02/15/18 19:40 Last Admin: 02/14/18 05:42 Dose: 1 tab Oxycodone/Acetaminophen (Percocet 5/325 Mg Tab) 2 tab PO Q4 PRN PRN Reason: Pain, severe (8-10) Stop: 02/15/18 19:40 Petrolatum (Desitin Maximum Strength Topical 40% Oint) 1 applic TOP QSHIFT [facility] Last Admin: 02/14/18 08:55 Dose: 1 applic Risperidone (Risperidone Odt 0.25mg) 0.25 mg PO Q12 PRN PRN Reason: Psychosis Last Admin: 02/12/18 09:00 Dose: 0.25 mg - Labs Labs: 02/14/18 11:09 02/14/18 11:09 PT 13.7 Seconds (9.8-13.1) H 02/06/18 06:00 INR 1.2 (0.9-1.2) 02/06/18 06:00 APTT 26.5 Seconds (25.6-37.1) 02/06/18 06:00 - Respiratory Exam Respiratory Exam: Decreased Breath Sounds - Cardiovascular Exam Cardiovascular Exam: REGULAR RHYTHM, +S1, +S2 - Extremities Exam Additional comments: TOES OR SEVERELY CYANOTIC TO GANGRENOUS, R>L - Additional Findings Additional findings: DR PINA SPOKEN TO AND HIS NOTES WERE REVIEWED Assessment and Plan - Assessment and Plan (Free Text) Assessment: CAD HYPERTENSION SEVERE PAD WITH SUCCESSFUL BILATERAL ILIAC DILATATION DM Plan: CONTINUE ASPIRIN, CLOPIDOGREL AND ANTIBIOTICS
--- NOTE | 2018-02-14 12:10 | CP.PCM.PN ---
Subjective - Date & Time of Evaluation Date of Evaluation: 02/14/18 Time of Evaluation: 07:00 - Subjective Subjective: slow progress no further intervention planned IV rx in progress wbc lower less pain no fever Objective - Vital Signs/Intake and Output Vital Signs (last 24 hours): Temp Pulse Resp BP Pulse Ox 98.0 F 75 18 103/61 94 L 02/14/18 07:54 02/14/18 07:54 02/14/18 07:54 02/14/18 07:54 02/14/18 07:54 - Medications Medications: Current Medications Acetaminophen (Tylenol 325mg Tab) 650 mg PO Q4 PRN PRN Reason: Pain, Mild (1-3) Last Admin: 02/07/18 03:14 Dose: 650 mg Acetaminophen (Tylenol 325mg Tab) 650 mg PO Q4 PRN PRN Reason: TEMP >100 Aspirin (Aspirin) 325 mg PO DAILY [facility] Last Admin: 02/14/18 08:58 Dose: 325 mg Bacitracin (Bacitracin Oint) 1 applic TOP DAILY [facility] Last Admin: 02/14/18 08:55 Dose: 1 applic Bisacodyl (Dulcolax) 10 mg [place] DAILY PRN PRN Reason: Constipation Clopidogrel Bisulfate (Plavix) 75 mg PO DAILY [facility] Last Admin: 02/14/18 08:55 Dose: 75 mg Docusate Sodium (Colace) 100 mg PO DAILY [facility] Last Admin: 02/14/18 08:57 Dose: 100 mg Escitalopram Oxalate (Lexapro) 5 mg PO HS [facility] Last Admin: 02/13/18 21:32 Dose: 5 mg Famotidine (Pepcid) 20 mg PO DAILY [facility] Last Admin: 02/14/18 08:56 Dose: 20 mg Ferrous Sulfate (Feosol) 325 mg PO DAILY [facility] Last Admin: 02/14/18 08:55 Dose: 325 mg Furosemide (Lasix) 20 mg PO DAILY [facility] Last Admin: 02/03/18 09:54 Dose: 20 mg Glipizide (Glucotrol Xl) 2.5 mg PO DAILY [facility] Last Admin: 02/14/18 08:57 Dose: 2.5 mg Home Med (Hydrogen Peroxide [Peroxyl Dental Rinse]) 1 appl TOP MOWEFR [facility] Hydroxyzine HCl (Atarax) 10 mg PO TID PRN PRN Reason: pruritis Last Admin: 02/13/18 21:32 Dose: 10 mg Piperacillin Sod/Tazobactam (Sod 2.25 gm/ Sodium Chloride) 100 mls @ 100 mls/ hr IVPB Q8 [facility] PRN Reason: Protocol Last Admin: 02/14/18 08:54 Dose: 100 mls/hr Amikacin Sulfate 350 mg/ (Sodium Chloride) 101.4 mls @ 101.4 mls/hr IVPB Q24H [facility] PRN Reason: Protocol Last Admin: 02/14/18 11:50 Dose: 101.4 mls/hr Lactobacillus Acidophilus (Bacid Acidophilus) 1 cap PO BID [facility] Last Admin: 02/14/18 08:56 Dose: 1 cap Magnesium Hydroxide (Milk Of Magnesia) 30 ml PO HS PRN PRN Reason: Constipation Last Admin: 02/02/18 21:33 Dose: 30 ml Memantine (Namenda) 5 mg PO BID [facility] Last Admin: 02/14/18 08:55 Dose: 5 mg Methimazole (Tapazole) 5 mg PO DAILY [facility] Last Admin: 02/14/18 08:57 Dose: 5 mg Miconazole Nitrate (Critic-Aid Clear Af) 1 applic TOP BID [facility] Last Admin: 02/14/18 08:54 Dose: 1 applic Oxycodone/Acetaminophen (Percocet 5/325 Mg Tab) 1 tab PO Q4 PRN PRN Reason: Pain, moderate (4-7) Stop: 02/15/18 19:40 Last Admin: 02/14/18 05:42 Dose: 1 tab Oxycodone/Acetaminophen (Percocet 5/325 Mg Tab) 2 tab PO Q4 PRN PRN Reason: Pain, severe (8-10) Stop: 02/15/18 19:40 Petrolatum (Desitin Maximum Strength Topical 40% Oint) 1 applic TOP QSHIFT [facility] Last Admin: 02/14/18 08:55 Dose: 1 applic Risperidone (Risperidone Odt 0.25mg) 0.25 mg PO Q12 PRN PRN Reason: Psychosis Last Admin: 02/12/18 09:00 Dose: 0.25 mg - Labs Labs: 02/14/18 11:09 02/14/18 11:09 PT 13.7 Seconds (9.8-13.1) H 02/06/18 06:00 INR 1.2 (0.9-1.2) 02/06/18 06:00 APTT 26.5 Seconds (25.6-37.1) 02/06/18 06:00 - Constitutional Appears: Non-toxic, Chronically Ill - Head Exam Head Exam: NORMOCEPHALIC - Eye Exam Eye Exam: PERRL - ENT Exam ENT Exam: Mucous Membranes Dry - Neck Exam Neck Exam: absent: Lymphadenopathy - Respiratory Exam Respiratory Exam: Decreased Breath Sounds - Cardiovascular Exam Cardiovascular Exam: REGULAR RHYTHM - GI/Abdominal Exam GI & Abdominal Exam: Distended - Rectal Exam Rectal Exam: Deferred - Exam Exam: NORMAL INSPECTION - Extremities Exam Extremities Exam: absent: Pedal Edema - Back Exam Back Exam: absent: CVA tenderness (L), CVA tenderness (R) - Neurological Exam Neurological Exam: Alert, Awake - Skin Skin Exam: Dry Additional comments: wounds stable Assessment and Plan (1) Cellulitis, leg Status: Acute (2) PVD (peripheral vascular disease) Status: Acute (3) Sepsis Status: Acute - Assessment and Plan (Free Text) Assessment: slow progress no further intervention planned IV rx in progress wbc lower less pain no fever cont iv rx for 7 days follow up with Dr Berrios
[2018-02-14 13:00] VITALS: BMI 25.7
--- NOTE | 2018-02-14 14:42 | CP.PCM.PN ---
Subjective - Date & Time of Evaluation Date of Evaluation: 02/14/18 Time of Evaluation: 22:22 - Subjective Subjective: Above noted Objective - Vital Signs/Intake and Output Vital Signs (last 24 hours): Temp Pulse Resp BP Pulse Ox 98.0 F 75 18 103/61 94 L 02/14/18 07:54 02/14/18 07:54 02/14/18 07:54 02/14/18 07:54 02/14/18 07:54 - Medications Medications: Current Medications Acetaminophen (Tylenol 325mg Tab) 650 mg PO Q4 PRN PRN Reason: Pain, Mild (1-3) Last Admin: 02/07/18 03:14 Dose: 650 mg Acetaminophen (Tylenol 325mg Tab) 650 mg PO Q4 PRN PRN Reason: TEMP >100 Aspirin (Aspirin) 325 mg PO DAILY [facility] Last Admin: 02/14/18 08:58 Dose: 325 mg Bacitracin (Bacitracin Oint) 1 applic TOP DAILY [facility] Last Admin: 02/14/18 08:55 Dose: 1 applic Bisacodyl (Dulcolax) 10 mg [place] DAILY PRN PRN Reason: Constipation Clopidogrel Bisulfate (Plavix) 75 mg PO DAILY [facility] Last Admin: 02/14/18 08:55 Dose: 75 mg Docusate Sodium (Colace) 100 mg PO DAILY [facility] Last Admin: 02/14/18 08:57 Dose: 100 mg Escitalopram Oxalate (Lexapro) 5 mg PO HS [facility] Last Admin: 02/13/18 21:32 Dose: 5 mg Famotidine (Pepcid) 20 mg PO DAILY [facility] Last Admin: 02/14/18 08:56 Dose: 20 mg Ferrous Sulfate (Feosol) 325 mg PO DAILY [facility] Last Admin: 02/14/18 08:55 Dose: 325 mg Furosemide (Lasix) 20 mg PO DAILY [facility] Last Admin: 02/03/18 09:54 Dose: 20 mg Glipizide (Glucotrol Xl) 2.5 mg PO DAILY [facility] Last Admin: 02/14/18 08:57 Dose: 2.5 mg Home Med (Hydrogen Peroxide [Peroxyl Dental Rinse]) 1 appl TOP MOWEFR [facility] Hydroxyzine HCl (Atarax) 10 mg PO TID PRN PRN Reason: pruritis Last Admin: 02/13/18 21:32 Dose: 10 mg Piperacillin Sod/Tazobactam (Sod 2.25 gm/ Sodium Chloride) 100 mls @ 100 mls/ hr IVPB Q8 [facility] PRN Reason: Protocol Last Admin: 02/14/18 08:54 Dose: 100 mls/hr Amikacin Sulfate 350 mg/ (Sodium Chloride) 101.4 mls @ 101.4 mls/hr IVPB Q24H [facility] PRN Reason: Protocol Last Admin: 02/14/18 11:50 Dose: 101.4 mls/hr Lactobacillus Acidophilus (Bacid Acidophilus) 1 cap PO BID [facility] Last Admin: 02/14/18 08:56 Dose: 1 cap Magnesium Hydroxide (Milk Of Magnesia) 30 ml PO HS PRN PRN Reason: Constipation Last Admin: 02/02/18 21:33 Dose: 30 ml Memantine (Namenda) 5 mg PO BID [facility] Last Admin: 02/14/18 08:55 Dose: 5 mg Methimazole (Tapazole) 5 mg PO DAILY [facility] Last Admin: 02/14/18 08:57 Dose: 5 mg Miconazole Nitrate (Critic-Aid Clear Af) 1 applic TOP BID [facility] Last Admin: 02/14/18 08:54 Dose: 1 applic Oxycodone/Acetaminophen (Percocet 5/325 Mg Tab) 1 tab PO Q4 PRN PRN Reason: Pain, moderate (4-7) Stop: 02/15/18 19:40 Last Admin: 02/14/18 05:42 Dose: 1 tab Oxycodone/Acetaminophen (Percocet 5/325 Mg Tab) 2 tab PO Q4 PRN PRN Reason: Pain, severe (8-10) Stop: 02/15/18 19:40 Petrolatum (Desitin Maximum Strength Topical 40% Oint) 1 applic TOP QSHIFT [facility] Last Admin: 02/14/18 08:55 Dose: 1 applic Risperidone (Risperidone Odt 0.25mg) 0.25 mg PO Q12 PRN PRN Reason: Psychosis Last Admin: 02/12/18 09:00 Dose: 0.25 mg - Labs Labs: 02/14/18 11:09 02/14/18 11:09 PT 13.7 Seconds (9.8-13.1) H 02/06/18 06:00 INR 1.2 (0.9-1.2) 02/06/18 06:00 APTT 26.5 Seconds (25.6-37.1) 02/06/18 06:00 - Respiratory Exam Respiratory Exam: NORMAL BREATHING PATTERN - Cardiovascular Exam Cardiovascular Exam: REGULAR RHYTHM - GI/Abdominal Exam GI & Abdominal Exam: Normal Bowel Sounds Assessment and Plan - Assessment and Plan (Free Text) Assessment: L Significant Periphereal Arterial Occlusive dx S/P Angioplasty Low ext edema cellulitis Wound cs Serratia Leg elevation IV ABX Zosyn/ Daptomycin ID Podiatry Surgery Physiatry Vascular ABBEY/ CKD creat improved Nephrology IVF Psychiatric dx?? Ultram?? Adj disorder with depression Psychiatry SSRI Resperidol CHF Diastolic CAD stress thalium scarring ischemia?? cardiac cath refused?? Cardiology Hx COPD L Pleural effusion Pulmonary Hx Anemia Chronic dx ASA d/c as outpt due to dec Hbg S/P Procrit transfusion NIDDM Thyroid dx
[2018-02-14 18:03] LABS: HEMOGLOBIN 8.8 g/dL (12.0-16.0); MEAN CORPUSCULAR HEMOGLOBIN 24.7 pg (27.0-31.0); MEAN CORPUSCULAR HGB CONC 30.9 g/dL (33.0-37.0); RBC 3.54 Mil/uL (3.80-5.20); RED CELL DISTRIBUTION WIDTH 21.4 % (11.5-14.5); WHITE BLOOD COUNT 14.7 K/uL (4.8-10.8)
[2018-02-14] MEDS: RISPERIDONE 0.25 MG ODT PO PRN (22:27)
[2018-02-15 00:17] VITALS: O2SAT 95
[2018-02-15] MEDS: Oxycodone/Acetaminophen 5/325 mg Tab PO PRN ×3 (06:46→14:35)
[2018-02-15 09:40] VITALS: BP 118/69; PULSE 18; RESP 18; TEMP 98.1
[2018-02-15] MEDS: Critic-Aid Clear AF TOP SCH (10:42)
[2018-02-15] MEDS: Bacitracin OINT 15GM TOP SCH (10:43)
[2018-02-15] MEDS: RISPERIDONE 0.25 MG ODT PO PRN (10:43)
[2018-02-15] MEDS: GlipiZIDE 2.5 mg SR Tab PO SCH (10:44)
[2018-02-15] MEDS: methIMAzole 5 MG TAB PO SCH (10:44)
[2018-02-15] MEDS: Lactobacillus Acidophilus 500 MU Cap PO SCH (10:52)
--- NOTE | 2018-02-15 13:26 | PN ---
DATE: 02/15/2018 SUBJECTIVE: The patient is seen and examined. The patient is seen for DrRina while he is away. The patient feels okay. Her pain is adequately controlled. No chest pain. No shortness of breath. Her extremity pain is adequately controlled. PHYSICAL EXAMINATION: GENERAL: The patient is in no acute distress. VITAL SIGNS: Stable. HEART: S1 and S2, normal and regular. LUNGS: Good bilateral air exchange. ABDOMEN: Soft and nontender. EXTREMITIES: The patient has gangrenous changes in the foot, which is being followed by statistics intern and primary care. The patient had vascular procedures done and planning to await either evaluation or amputation at a future date. The patient was scheduled to be discharged from [facility] today. 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 DIAGNOSTIC DATA: Available diagnostic data reviewed. ASSESSMENT AND PLAN: Overall, the patient is clinically stable. The gangrenous changes will be followed up by Dr. Hernandez in [facility]. Case and plan discussed with the patient. Plan as ordered. Abiodun Isaac MD
--- NOTE | 2018-02-15 15:17 | CP.PCM.PN ---
Subjective - Date & Time of Evaluation Date of Evaluation: 02/15/18 Time of Evaluation: 13:00 - Subjective Subjective: NO CHEST PAIN OR SOB FEELS A LITTLE BETTER Objective - Vital Signs/Intake and Output Vital Signs (last 24 hours): Temp Pulse Resp BP Pulse Ox 98.1 F 18 L 18 118/69 95 02/15/18 09:00 02/15/18 09:00 02/15/18 09:00 02/15/18 09:00 02/15/18 09:00 - Labs Labs: 02/14/18 17:15 02/14/18 11:09 PT 13.7 Seconds (9.8-13.1) H 02/06/18 06:00 INR 1.2 (0.9-1.2) 02/06/18 06:00 APTT 26.5 Seconds (25.6-37.1) 02/06/18 06:00 - Respiratory Exam Respiratory Exam: Clear to Ausculation Bilateral - Cardiovascular Exam Cardiovascular Exam: REGULAR RHYTHM, +S1, +S2 - Extremities Exam Additional comments: LE PULSES ARE BETTER TOES ARE CYANOTIC AND GANGRENOUS Assessment and Plan - Assessment and Plan (Free Text) Assessment: SEVERE PAD WITH INTERVENTION CAD HYPERTENSION TYPE 2 DM Plan: CONTINUE ASPIRIN, CLOPIDOGREL, ANTIBIOTICS AND GLIPIZIDE FOR DISCHARGE TO [facility] METOPROLOL AND IMDUR SHOULD BE RESUMED WHEN BLOOD PRESSURE INCREASES
--- NOTE | 2018-02-16 21:29 | CP.PCM.PN ---
Subjective - Date & Time of Evaluation Date of Evaluation: 02/14/18 Time of Evaluation: 11:00 - Subjective Subjective: Feeling better Objective - Vital Signs/Intake and Output Vital Signs (last 24 hours): Temp Pulse Resp BP Pulse Ox 98.1 F 18 L 18 118/69 95 02/15/18 09:00 02/15/18 09:00 02/15/18 09:00 02/15/18 09:00 02/15/18 09:00 - Labs Labs: 02/14/18 17:15 02/14/18 11:09 PT 13.7 Seconds (9.8-13.1) H 02/06/18 06:00 INR 1.2 (0.9-1.2) 02/06/18 06:00 APTT 26.5 Seconds (25.6-37.1) 02/06/18 06:00 - Head Exam Head Exam: ATRAUMATIC - Eye Exam Eye Exam: Normal appearance - ENT Exam ENT Exam: Mucous Membranes Dry - Respiratory Exam Respiratory Exam: NORMAL BREATHING PATTERN - Cardiovascular Exam Cardiovascular Exam: +S1, +S2 - GI/Abdominal Exam GI & Abdominal Exam: Normal Bowel Sounds Assessment and Plan (1) Anemia Assessment & Plan: anemia of chronic disease, fluctuating renal function on PO iron s/p Procrit Status: Acute (2) Leukocytosis Assessment & Plan: on antibiotics Status: Acute
--- NOTE | 2018-02-16 21:29 | CP.PCM.PN ---
Subjective - Date & Time of Evaluation Date of Evaluation: 02/15/18 Time of Evaluation: 13:00 - Subjective Subjective: Feeling better Objective - Vital Signs/Intake and Output Vital Signs (last 24 hours): Temp Pulse Resp BP Pulse Ox 98.1 F 18 L 18 118/69 95 02/15/18 09:00 02/15/18 09:00 02/15/18 09:00 02/15/18 09:00 02/15/18 09:00 - Labs Labs: 02/14/18 17:15 02/14/18 11:09 PT 13.7 Seconds (9.8-13.1) H 02/06/18 06:00 INR 1.2 (0.9-1.2) 02/06/18 06:00 APTT 26.5 Seconds (25.6-37.1) 02/06/18 06:00 - Head Exam Head Exam: ATRAUMATIC - Eye Exam Eye Exam: Normal appearance - ENT Exam ENT Exam: Mucous Membranes Dry - Respiratory Exam Respiratory Exam: NORMAL BREATHING PATTERN - Cardiovascular Exam Cardiovascular Exam: +S1, +S2 - GI/Abdominal Exam GI & Abdominal Exam: Normal Bowel Sounds Assessment and Plan (1) Anemia Assessment & Plan: anemia of chronic disease, fluctuating renal function on PO iron s/p Procrit Status: Acute (2) Leukocytosis Assessment & Plan: on antibiotics Status: Acute
== END 2018-02-15 14:42 | DRG 854 ==
LOC: H.ER 16:04 → H.ERHOLD 18:15 → H.MEDSURG1 23:08
PROVIDERS: ADMIT Family Medicine Geriatric Medicine; ATTEND Family Medicine Geriatric Medicine
PROC: 02HV33Z Insertion of Infusion Device into Superior Vena Cava, Percutaneous Approach (ICD-10-PCS; principal; 2018-02-03)
PROC: B518ZZA Fluoroscopy of Superior Vena Cava, Guidance (ICD-10-PCS; 2018-02-03)
PROC: 3E04329 Introduction of Other Anti-infective into Central Vein, Percutaneous Approach (ICD-10-PCS; 2018-02-03)
PROC: 30233N1 Transfusion of Nonautologous Red Blood Cells into Peripheral Vein, Percutaneous Approach (ICD-10-PCS; 2018-02-05)
PROC: 047L3DZ Dilation of Left Femoral Artery with Intraluminal Device, Percutaneous Approach (ICD-10-PCS; 2018-02-11)
PROC: 047K3DZ Dilation of Right Femoral Artery with Intraluminal Device, Percutaneous Approach (ICD-10-PCS; 2018-02-11)
DX: A41.9 Sepsis, unspecified organism (principal); I50.32 Chronic diastolic (congestive) heart failure; N17.9 Acute kidney failure, unspecified; I13.0 Hypertensive heart and chronic kidney disease with heart failure and stage 1 through stage 4 chronic kidney disease, or unspecified chronic kidney disease; L03.115 Cellulitis of right lower limb; L03.116 Cellulitis of left lower limb; E11.52 Type 2 diabetes mellitus with diabetic peripheral angiopathy with gangrene; L97.429 Non-pressure chronic ulcer of left heel and midfoot with unspecified severity; L97.419 Non-pressure chronic ulcer of right heel and midfoot with unspecified severity; E87.1 Hypo-osmolality and hyponatremia; I87.2 Venous insufficiency (chronic) (peripheral); N18.1 Chronic kidney disease, stage 1; L97.519 Non-pressure chronic ulcer of other part of right foot with unspecified severity; L97.529 Non-pressure chronic ulcer of other part of left foot with unspecified severity; B96.89 Other specified bacterial agents as the cause of diseases classified elsewhere; D63.1 Anemia in chronic kidney disease; E11.22 Type 2 diabetes mellitus with diabetic chronic kidney disease; L89.152 Pressure ulcer of sacral region, stage 2; I25.10 Atherosclerotic heart disease of native coronary artery without angina pectoris; I95.9 Hypotension, unspecified; F43.21 Adjustment disorder with depressed mood; F01.50 Vascular dementia, unspecified severity, without behavioral disturbance, psychotic disturbance, mood disturbance, and anxiety; I70.248 Atherosclerosis of native arteries of left leg with ulceration of other part of lower leg; I70.238 Atherosclerosis of native arteries of right leg with ulceration of other part of lower leg; E78.5 Hyperlipidemia, unspecified; E78.00 Pure hypercholesterolemia, unspecified; E11.622 Type 2 diabetes mellitus with other skin ulcer; D63.8 Anemia in other chronic diseases classified elsewhere; R44.1 Visual hallucinations; I67.9 Cerebrovascular disease, unspecified; J44.9 Chronic obstructive pulmonary disease, unspecified; Z91.19 Patient's noncompliance with other medical treatment and regimen; Z79.02 Long term (current) use of antithrombotics/antiplatelets; Z79.84 Long term (current) use of oral hypoglycemic drugs; Z87.01 Personal history of pneumonia (recurrent); Z87.891 Personal history of nicotine dependence; Z87.442 Personal history of urinary calculi

== ENCOUNTER 2018-03-20 12:53 | Inpatient (IN) | payer MEDICARE ==
--- NOTE | 2018-03-20 13:38 | ED PDOC ---
Lower Extremity Pain/Injury Chief Complaint (Provider): sent by [facility] History Per: Patient Additional Complaint(s): 77 yo F with history diabetes, chf, anemia was sent by [facility] for bilateral toe wounds/ulcers/gangrene with foul odor. Pt states she gets daily dressing changes at [facility]. Pt c/o throbbing pain in toes without aggravating/alleviating factors. Pt denies chest pain, dyspnea, abdominal pain, feeling ill, chills. PMD: Dr. Young <Sabine Castelan - Last Filed: 03/20/18 16:02> <Carly Schwartz - Last Filed: 03/20/18 16:27> Chief Complaint (Nursing): Lower Extremity Problem/Injury Supervising Attending Note - Supervising Attending Note The Documented history was done by the: Physician Dynamo Repairer, Attending Physician The documented physical exam was done by the: Physician Dynamo Repairer, Attending Physician The documented procedures were done by the: Physician Dynamo Repairer, Attending Physician - Attestation: I have personally seen and examined this patient.: Yes I have fully participated in the care of the patient.: Yes I have reviewed all pertinent clinical information, including history, physical exam and plan: Yes <Carly Schwartz - Last Filed: 03/20/18 16:27> Past Medical History Vital Signs: Last Vital Signs Temp 96.4 F L 03/20/18 12:57 Pulse 96 H 03/20/18 12:57 Resp 20 03/20/18 12:57 BP 123/70 03/20/18 12:57 Pulse Ox 99 03/20/18 12:57 - Medical History PMH: Anemia, Bronchitis, CAD, CHF, COPD, Diabetes, HTN, Hypercholesterolemia, Hyperthyroidism, Kidney Stones (kidney stone removal), Peripheral Edema, Pneumonia, Chronic Kidney Disease Denies: HIV - Surgical History Surgical History: Appendectomy - Family History Family History: States: Unknown Family Hx <Sabine Castelan - Last Filed: 03/20/18 16:02> Reviewed: Historical Data, Nursing Documentation, Vital Signs Vital Signs: Last Vital Signs Temp 96.4 F L 03/20/18 12:57 Pulse 96 H 03/20/18 12:57 Resp 20 03/20/18 12:57 BP 123/70 03/20/18 12:57 Pulse Ox 99 03/20/18 16:02 <Carly Schwartz A - Last Filed: 03/20/18 16:27> - Home Medications Home Medications: Ambulatory Orders Medication Instructions Recorded Famotidine [Pepcid] 20 mg PO DAILY 11/02/17 Metoprolol Tartrate [Lopressor] 25 mg PO Q12 11/02/17 methIMAzole [Tapazole] 5 mg PO DAILY 11/02/17 Acetaminophen [Tylenol 325mg tab] 650 mg PO Q4 PRN tab 11/08/17 Clopidogrel [Plavix] 75 mg PO DAILY tab 11/08/17 GlipiZIDE SR [Glucotrol XL] 2.5 mg PO DAILY tab 11/08/17 Isosorbide Mononitrate ER [Imdur 30 mg PO DAILY tab 11/08/17 ER] Bacitracin OINT 1 applic TOP DAILY tube 12/18/17 Docusate [Colace] 100 mg PO DAILY cap 12/18/17 Ferrous Sulfate [Feosol] 325 mg PO DAILY tab 12/18/17 Lactobacillus Acidophilus [Bacid 1 cap PO BID cap 12/18/17 Acidophilus] Acetaminophen [Tylenol 325mg tab] 650 mg PO Q4 PRN 01/30/18 Bisacodyl [Dulcolax] [address] DAILY PRN 01/30/18 Furosemide [Lasix] 20 mg PO DAILY 01/30/18 Hydrogen Peroxide [Peroxyl Dental 1 appl TOP MOWEFR 01/30/18 Rinse] Magnesium Hydroxide [Milk Of 30 ml PO HS PRN 01/30/18 Magnesia] Zinc Oxide [Perishield] 1 appl TOP QSHIFT 01/30/18 Amikacin Sulfate [Amikacin] 350 mg IVPB DAILY #7 vial 02/14/18 Aspirin 325 mg PO DAILY tab 02/14/18 Escitalopram [Lexapro] 5 mg PO HS tab 02/14/18 Memantine [Namenda] 5 mg PO BID tab 02/14/18 Miconazole Nitrate [Critic-Aid 1 applic TOP BID oin 02/14/18 Clear AF] Piperacillin/Tazobact [Zosyn] 2.25 gm IVPB Q8 #21 vial 02/14/18 Risperidone [Risperidone Odt 0.25 mg PO Q12 PRN odt 06/22/18 0.25MG] oxyCODONE/Acetaminophen [Percocet 1 tab PO Q4 PRN #10 tab 02/14/18 5/325 mg Tab] - Allergies Allergies/Adverse Reactions: Allergies Allergy/AdvReac Type Severity Reaction Status Date / Time No Known Allergies Allergy Verified 03/20/18 12:54 Review of Systems ROS Statement: Except As Marked, All Systems Reviewed And Found Negative Musculoskeletal: Positive for: Foot Pain Skin: Positive for: Other (skin ulcerations) <Sabine Castelan - Last Filed: 03/20/18 16:02> ROS Statement: Except As Marked, All Systems Reviewed And Found Negative <Carly Schwartz - Last Filed: 03/20/18 16:27> Physical Exam - Physical Exam Appears: Positive for: Non-toxic Head Exam: Positive for: ATRAUMATIC Eye Exam: Positive for: Normal appearance Neck: Positive for: Supple Cardiovascular/Chest: Positive for: Regular Rate, Rhythm, Chest Non Tender Respiratory: Positive for: Normal Breath Sounds. Negative for: Decreased Breath Sounds, Crackles, Rales, Wheezing, Respiratory Distress Gastrointestinal/Abdominal: Positive for: Bowel Sounds, Soft. Negative for: Tenderness Extremity: Positive for: Other (multiple chronic appearing ulcerations; RLE: large calf wound with black base on medial calf, 2nd,3rd,4th toes necrotic. LLE : dorsal aspect of foot over metatarsals black/necrotic, 2nd toe necrotic. Multiple smaller scattered lesions on bilateral LE.) <Sabine Castelan - Last Filed: 03/20/18 16:02> - Reviewed Nursing Documentation Reviewed: Yes Vital Signs Reviewed: Yes - Physical Exam Eye Exam: Positive for: EOMI Extremity: Positive for: Normal ROM Neurologic/Psych: Positive for: Alert, Oriented <Carly Schwartz - Last Filed: 03/20/18 16:27> - Laboratory Results Result Diagrams: 03/20/18 13:45 03/20/18 13:45 - ECG O2 Sat by Pulse Oximetry: 99 <Sabine Castelan - Last Filed: 03/20/18 16:02> - Laboratory Results Result Diagrams: 03/20/18 13:45 03/20/18 13:45 <Carly Schwartz - Last Filed: 03/20/18 16:27> Medical Decision Making Medical Decision Making: - CBC w/ diff - BMP - ESR - Bilat foot Xray - Podiatry - Morphine <Sabine Castelan - Last Filed: 03/20/18 16:02> Disposition - POA Present On Arrival: Pressure Ulcer <BlairSabine severino - Last Filed: 03/20/18 16:02> - Patient ED Disposition Is Patient to be Admitted: Yes Discussed With Dr.: Jimbo Young Doctor Will See Patient In The: Hospital Counseled Patient/Family Regarding: Studies Performed, Diagnosis - Disposition Disposition Time: 16:00 - Pt Status Changed To: Hospital Disposition Of: Inpatient - Admit Certification Admit to Inpatient:: After my assessment, the patient will require hospitalization for at least two midnights. This is because of the severity of symptoms shown, intensity of services needed, and/or the medical risk in this patient being treated as an outpatient. <Carly Schwartz - Last Filed: 03/20/18 16:27> - Clinical Impression Clinical Impression: Bilateral leg ulcer, Gangrenous toe - Disposition Condition: FAIR
[2018-03-20 14:22] LABS: BASO % 0.5 % (0.0-2.0); EOS % 0.4 % (0.0-4.0); HEMOGLOBIN 8.6 g/dL (12.0-16.0); LYMPH # 0.5 K/uL (1.0-4.3); LYMPH % 5.3 % (20.0-40.0); MEAN CELL VOLUME 79.4 fl (81.0-99.0); MEAN CORPUSCULAR HEMOGLOBIN 23.3 pg (27.0-31.0); MEAN CORPUSCULAR HGB CONC 29.4 g/dL (33.0-37.0); MONO # 1.1 K/uL (0.0-0.8); MONO % 10.5 % (0.0-10.0); NEUT # 8.5 K/uL (1.8-7.0); NEUT % 83.3 % (50.0-75.0); NRBC % 0.3 % (0.0-0.0); PLATELET COUNT 404 K/uL (130-400); RBC 3.71 Mil/uL (3.80-5.20); RED CELL DISTRIBUTION WIDTH 23.1 % (11.5-14.5); WHITE BLOOD COUNT 10.2 K/uL (4.8-10.8)
[2018-03-20 14:44] LABS: BLOOD UREA NITROGEN 40 mg/dl (7-17); CALCIUM 8.9 mg/dL (8.4-10.2); GFR AFRICAN-AMERICAN > 60; GFR NON-AFRICAN AMERICAN 53
[2018-03-20 15:25] LABS: INR 1.2 (0.9-1.2); PARTIAL THROMBOPLASTIN TIME 31.2 Seconds (25.6-37.1); PROTHROMBIN TIME 13.1 Seconds (9.8-13.1)
--- NOTE | 2018-03-20 15:46 | CP.PCM.CON ---
History of Present Illness - History of Present Illness History of Present Illness: Podiatry Consult Note for attending Dr. Briseno 77 y.o female with PMH of DM, CAD, CHF, chronic anemia, PVD and lower extremity ulcerations with cellulites and swelling seen and evaluated in the ED for bilateral lower extremity ulcerations with swelling and cellulites. [facility]. patient is taken care of by the wound care nurse in the facility she is staying in. Patient is known to Dr. Briseno and podiatry service when patient does not adhere to treatment plans and noncompliant. Patient states she does not like compression or kerlix because it is too tight. During the time of encounter, patient denies nausea, fever, shortness of breath, or chest pains. Patient is setting in bed in pain but she doesn't look oriented X 3 and difficult to communicate with. PMH: DM, CAD, CHF, chronic anemia, PVD and lower extremity ulcerations with cellulites PSH: Appendectomy Allergies: NKDA Review of Systems - Review of Systems Review of Systems: As per HPI Past Patient History - Infectious Disease Hx of Infectious Diseases: None - Past Medical History & Family History Past Medical History?: Yes - Past Social History Smoking Status: Former Smoker - CARDIAC Hx Congestive Heart Failure: Yes Hx Hypercholesterolemia: Yes Hx Hypertension: Yes Hx Peripheral Edema: Yes - PULMONARY Hx Bronchitis: Yes Hx Chronic Obstructive Pulmonary Disease (COPD): Yes Hx Pneumonia: Yes - NEUROLOGICAL Other/Comment: Paresthesias of both feet - HEENT Hx HEENT Problems: No - RENAL Hx Chronic Kidney Disease: Yes Hx Kidney Stones: Yes (kidney stone removal) - ENDOCRINE/METABOLIC Hx Hyperthyroidism: Yes - HEMATOLOGICAL/ONCOLOGICAL Hx Anemia: Yes Hx Human Immunodeficiency Virus (HIV): No - INTEGUMENTARY Hx Dermatological Problems: Yes Other/Comment: Dependent edema of both lower extremities with blister formation - MUSCULOSKELETAL/RHEUMATOLOGICAL Hx Falls: Yes - GASTROINTESTINAL Hx Gastrointestinal Disorders: No - GENITOURINARY/GYNECOLOGICAL Hx Genitourinary Disorders: No - PSYCHIATRIC Hx Psychophysiologic Disorder: No Hx Substance Use: No - SURGICAL HISTORY Hx Appendectomy: Yes - ANESTHESIA Hx Anesthesia: Yes Hx Anesthesia Reactions: No Hx Malignant Hyperthermia: No Meds Allergies/Adverse Reactions: Allergies Allergy/AdvReac Type Severity Reaction Status Date / Time No Known Allergies Allergy Verified 03/20/18 12:54 Physical Exam - Constitutional Appears: Non-toxic - Head Exam Head Exam: ATRAUMATIC, NORMOCEPHALIC - Extremities Exam Additional comments: Lower extremity focused exam Vasc: DP pulses and PT pulses non-palpable, Temp gradient cool to cool, Cap refill delayed to digits/not attainable due to necrosis of 2-5 on right foot Neuro: Protective sensation grossly intact bilaterally MSK: all wounds painful to palpation Derm: Multiple ulcerations noted to the entire lower extremity with mixture of fibrotic/necrotic wound base: Erythema to the entire LE R>L, malodorous, all sites (-) for purulence, probe to bone, tunneling or undermining. RIGHT- 1) Necrotic right heel eschar unstagable with no drainage noted measuring 9.0 cm X 7.0 cm 2) Circumferential ulceration to the medial posterior aspect measuring 21 cm in length, fibrotic edges, peroneal tendon exposed, drainage noted 3) necrotic 2nd and 3rd digits till the level of the MPTJ, dorsally necrotic 4th digit t the level of the MTPJ 4) necrotic ulceration to the dorsal aspect of the hallux at the PIPJ measuring 3.0 cmX 2.5 cm 5) necrotic ulceration to the dorsal forefoot measuring 2.5 cm X 1.8 cm 6) necrotic ulceration noted to the medial ankle distal to the medial malleolus measuring 4. 0 X 2.0 cm, + fluctuance noted 7) necrotic ulceration to the anterior tibial tuberosity measuring 3.0 X 1.0 cm 8) circular ulceration noted to the medial aspect of the leg at the level of the tibial tuberosity measuring 2.4 cm X 2.6 cm with 80% graular and 20% fibrotic bases, surrounding erythema 9) multiple stable eschars to the knee LEFT- 1) echar to the heel, necrotic, measuring 5.0 cm X 6.0 cm 2) necrotic ulceration to the dorsal aspect of the foot, with fibrotic edges, positive drainage 3) necrotic ulceration to the medial aspect of the leg measuring 5.0 c, X 3.0 cm 4) gangranous changes to the tip of the hallux, and to the dorsum of the 2nd digit 5) multipe eschars to the tibial tuberosity, stable in nature Results - Vital Signs Recent Vital Signs: Last Vital Signs Temp 96.4 F L 03/20/18 12:57 Pulse 96 H 03/20/18 12:57 Resp 20 03/20/18 12:57 BP 123/70 03/20/18 12:57 Pulse Ox 99 03/20/18 14:37 - Labs Result Diagrams: 03/20/18 13:45 03/20/18 13:45 Labs: Laboratory Results - last 24 hr 03/20/18 03/20/18 03/20/18 13:26 13:45 13:45 WBC 10.2 RBC 3.71 L Hgb 8.6 L Hct 29.5 L MCV 79.4 L MCH 23.3 L MCHC 29.4 L RDW 23.1 H Plt Count 404 H MPV 8.0 Neut % (Auto) 83.3 H Lymph % (Auto) 5.3 L [place] % (Auto) 10.5 H Eos % (Auto) 0.4 Baso % (Auto) 0.5 Neut # (Auto) 8.5 H Lymph # (Auto) 0.5 L [place] # (Auto) 1.1 H Eos # (Auto) 0.0 Baso # (Auto) 0.0 PT INR APTT Sodium 144 Potassium 4.0 Chloride 106 Carbon Dioxide 25 Anion Gap 17 BUN 40 H Creatinine 1.0 Est GFR ( Amer) > 60 Est GFR (Non-Af Amer) 53 POC Glucose (mg/dL) 114 H Random Glucose 115 H Calcium 8.9 Blood Type Antibody Screen BBK History Checked 03/20/18 03/20/18 15:00 15:00 WBC RBC Hgb Hct MCV MCH MCHC RDW Plt Count MPV Neut % (Auto) Lymph % (Auto) [place] % (Auto) Eos % (Auto) Baso % (Auto) Neut # (Auto) Lymph # (Auto) [place] # (Auto) Eos # (Auto) Baso # (Auto) PT 13.1 INR 1.2 APTT 31.2 Sodium Potassium Chloride Carbon Dioxide Anion Gap BUN Creatinine Est GFR ( Amer) Est GFR (Non-Af Amer) POC Glucose (mg/dL) Random Glucose Calcium Blood Type Cancelled Antibody Screen Cancelled BBK History Checked Cancelled Assessment & Plan - Assessment and Plan (Free Text) Assessment: 77 y/o F patient seen and evaluated at bedside for multiple b/l LE ulcerations. gangrenous right 2nd, 3rd and 4th toes Plan: Patient seen and evaluated in the ED Plan discussed in details with attending Dr. Briseno Patient chart, labs and vitals reviewed; afebrile, No leukocytosis. Arterial duplex LE didn't reveal any stenotic changes proximally. X-ray foot b/l; No signs of acute osseous changes b/l. Ordered proximal tib-fib x-ray by the ED doctor. Ordered ID consult by the ED doctor. Ordered wound culture. Will order vascular consult when the patient got admitted. Wounds dressed with xeroform, ABD and DSD. Patient will be admitted by her primary team. Podiatry will will follow up the patient in house. - Date & Time Date: 03/20/18 Time: 15:50
[2018-03-20 15:51] LABS: ANISOCYTOSIS MARKED; LYMPHOCYTE 7 % (20-50); MONOCYTE 11 % (0-10); NEUTROPHIL 82 % (42-75); PLATELET ESTIMATE SLIGHTLY INCREASED (NORMAL); TOTAL CELLS COUNTED 100
[2018-03-20 15:52] LABS: HYPOCHROMIC SLIGHT
[2018-03-20 15:54] LABS: OVALOCYTES SLIGHT
[2018-03-20 15:55] LABS: LARGE PLATELETS PRESENT
--- NOTE | 2018-03-20 16:22 | US ---
Date of service: 03/20/2018 PROCEDURE: Duplex ultrasound of the bilateral lower extremity arteries. HISTORY: bilateral leg ulcers gangrenous areas COMPARISON: None available. TECHNIQUE: Grayscale and duplex Doppler evaluation of the bilateral common femoral, superficial femoral, popliteal, posterior tibial and dorsalis pedis arteries was performed.. FINDINGS: RIGHT LOWER EXTREMITY: RIGHT COMMON FEMORAL ARTERY: Moderate atherosclerotic disease identified. Maximal flow velocity of 32.2 cm/s. RIGHT SUPERFICIAL FEMORAL ARTERY: Extensive atherosclerotic disease identified. Maximal flow velocity of 40.6 cm/s. Nondiagnostic study below the distal right SFA related to bandages/dressing. LEFT LOWER EXTREMITY: LEFT COMMON FEMORAL ARTERY: Moderate atherosclerotic disease. Maximal flow velocity of 117.6 cm/s. LEFT SUPERFICIAL FEMORAL ARTERY: Moderate atherosclerotic disease identified. Maximal flow velocity of 60.1 the cm/s. The patient terminated the study at the level of the mid SFA. Distal vascular assessment therefore is not possible. OTHER FINDINGS: None. IMPRESSION: Limited study. No proximal areas of critical stenosis identified.
--- NOTE | 2018-03-20 16:44 | RAD ---
Date of service: 03/20/2018 PROCEDURE: Bilateral Feet Radiographs. HISTORY: bilateral ulcers COMPARISON: None. FINDINGS: BONES: Right Foot: Plantar calcaneal spurs. No acute findings. Left Foot: Plantar calcaneal spurs. No acute findings JOINTS: Right Foot: Hammertoe deformities. Left Foot: Hammertoe deformities. SOFT TISSUES: Right Foot: Extensive soft tissue swelling. No visulaized radiopaque/visualized foreign body. Left Foot: Unremarkable OTHER FINDINGS: None. IMPRESSION: Right foot: Soft tissue swelling without acute articular or osseous abnormality. Left foot: No significant or acute findings to account for/ related to the clinical presentation.
[2018-03-20] MEDS ORDERED: Piperacillin/Tazobact 3.375 GM in Sodium Chloride 0.9% 100 ML IVPB STA (16:46)
[2018-03-20] MEDS ORDERED: Piperacillin/Tazobact 3.375 gm Inj IVPB ONE (17:19)
--- NOTE | 2018-03-20 17:46 | RAD ---
Date of service: 03/20/2018 PROCEDURE: Bilateral tibia and fibula HISTORY: leg ulcers COMPARISON: None available. TECHNIQUE: Standard protocol for this study/examination. FINDINGS: Right tibia and fibula: Deep soft tissue ulcers without radiographic findings of osteomyelitis. No visulaized radiopaque/visualized foreign body. Left tibia and fibula: No significant/acute osseous, articular or soft tissue abnormalities. IMPRESSION: Multiple deep soft tissue ulcers right lower extremity without evidence of osteomyelitis.
--- NOTE | 2018-03-20 20:23 | CP.PCM.PN ---
Subjective - Date & Time of Evaluation Date of Evaluation: 03/20/18 Time of Evaluation: 22:22 - Subjective Subjective: 77 yo transferred from [place] Pt has significant PVD S/P PTCA low ext Objective - Vital Signs/Intake and Output Vital Signs (last 24 hours): Temp Pulse Resp BP Pulse Ox 97.4 F L 90 18 126/68 100 03/20/18 17:28 03/20/18 17:28 03/20/18 17:28 03/20/18 17:28 03/20/18 17:28 - Medications Medications: Current Medications Sodium Hypochlorite (Dakins Solution 0.125%) 1 appl TOP QD7 BRITTNEY - Labs Labs: 03/20/18 13:45 03/20/18 13:45 PT 13.1 Seconds (9.8-13.1) 03/20/18 15:00 INR 1.2 (0.9-1.2) 03/20/18 15:00 APTT 31.2 Seconds (25.6-37.1) 03/20/18 15:00 - Respiratory Exam Respiratory Exam: NORMAL BREATHING PATTERN - Cardiovascular Exam Cardiovascular Exam: REGULAR RHYTHM - GI/Abdominal Exam GI & Abdominal Exam: Normal Bowel Sounds Assessment and Plan - Assessment and Plan (Free Text) Assessment: Significant Periphereal Arterial Occlusive dx S/P Angioplasty Low ext edema cellulitis ER evaluation D/W ER Labs Consultants
[2018-03-20] MEDS ORDERED: Magnesium Hydroxide Susp 30 ml UD PO PRN (20:38)
[2018-03-20] MEDS ORDERED: Proshield Plus GEL TOP SCH (20:45)
[2018-03-20] MEDS ORDERED: hydrOXYzine HCl 50 mg/ml Inj IM ONE (21:45)
--- NOTE | 2018-03-21 06:21 | CP.PCM.CON ---
History of Present Illness - History of Present Illness History of Present Illness: Surgery Consult note- Dr. Woods Reason for consult: bilateral LE non-healing wounds 77F pmhx significant for COPD, DM, CAD, CHF, chronic anemia, non-healing bilateral lower extremity wounds w/ malodrous smell was admitted to the hospital recently for similar symptoms of increased pain and foul smelling bilateral lower extremities. CTA during last admission shows decreased blood flow in descending aorta prior to the illiacs. Interventional cardiology, and podiatry on board. Pt had angioplasty with b/l iliac stents on 02/[address] Damon. Currently having bilateral lower extremity pain. Pain on rest. TTP. b/l toes are necrotic and black. Draining purulent fluids around the edges of necrosis. Legs are currently wrapped. She noticed b/l legs and feet ulceration for a few month. Since the intervention ulceration was getting better than become worse again. Pt was able to ambulate before. Has been bedbound over a week because of the pain on both feet while walking. Denies fever, chills, nausea, vomiting, diarrhea, CP, SOB, dysuria. PMH: stated above PSH:appendectomy, Angioplasty w b/l illiac stents (02/12/18) ALL: NKDA SocialHx: former tobacco use, denies recreational drug use FH: non-contributory Review of Systems - Constitutional Constitutional: As Per HPI. absent: Chills Past Patient History - Infectious Disease Hx of Infectious Diseases: None - Past Medical History & Family History Past Medical History?: Yes - Past Social History Smoking Status: Former Smoker - CARDIAC Hx Congestive Heart Failure: Yes Hx Hypercholesterolemia: Yes Hx Hypertension: Yes Hx Peripheral Edema: Yes - PULMONARY Hx Bronchitis: Yes Hx Chronic Obstructive Pulmonary Disease (COPD): Yes Hx Pneumonia: Yes - NEUROLOGICAL Other/Comment: Paresthesias of both feet - HEENT Hx HEENT Problems: No - RENAL Hx Chronic Kidney Disease: Yes - ENDOCRINE/METABOLIC Hx Hyperthyroidism: Yes - HEMATOLOGICAL/ONCOLOGICAL Hx AIDS: No Hx Anemia: Yes Hx Human Immunodeficiency Virus (HIV): No - INTEGUMENTARY Hx Dermatological Problems: Yes Hx Cellulitis: Yes - MUSCULOSKELETAL/RHEUMATOLOGICAL Hx Musculoskeletal Disorders: Yes Hx Falls: Yes - GASTROINTESTINAL Hx Gastrointestinal Disorders: No - GENITOURINARY/GYNECOLOGICAL Hx Genitourinary Disorders: No - PSYCHIATRIC Hx Psychophysiologic Disorder: Yes Hx Anxiety: Yes Hx Substance Use: No - SURGICAL HISTORY Hx Appendectomy: Yes Other/Comment: kidney stone removal - ANESTHESIA Hx Anesthesia: Yes Hx Anesthesia Reactions: No Hx Malignant Hyperthermia: No Meds Allergies/Adverse Reactions: Allergies Allergy/AdvReac Type Severity Reaction Status Date / Time No Known Allergies Allergy Verified 03/20/18 12:54 - Medications Medications: Current Medications Acetaminophen (Tylenol 325mg Tab) 650 mg PO Q4 PRN PRN Reason: Pain, Mild (1-3) Acetaminophen (Tylenol 325mg Tab) 650 mg PO Q4 PRN PRN Reason: TEMP >100 Aspirin (Aspirin) 325 mg PO DAILY [facility] Bisacodyl (Dulcolax) 10 mg [place] DAILY PRN PRN Reason: Constipation Clopidogrel Bisulfate (Plavix) 75 mg PO DAILY [facility] Dimethicone (Proshield Plus Skin Protectant) 1 applic TOP QSHIFT [facility] Docusate Sodium (Colace) 100 mg PO DAILY [facility] Enoxaparin Sodium (Lovenox) 30 mg SC DAILY [facility] PRN Reason: Protocol Escitalopram Oxalate (Lexapro) 5 mg PO HS [facility] Last Admin: 03/20/18 22:58 Dose: 5 mg Famotidine (Pepcid) 20 mg PO DAILY [facility] Ferrous Sulfate (Feosol) 325 mg PO DAILY [facility] Furosemide (Lasix) 20 mg PO DAILY [facility] Glipizide (Glucotrol Xl) 2.5 mg PO DAILY [facility] Home Med (Hydrogen Peroxide [Peroxyl Dental Rinse]) 1 appl TOP MOWEFR [facility] Isosorbide Mononitrate (Imdur Er) 30 mg PO DAILY [facility] Magnesium Hydroxide (Milk Of Magnesia) 30 ml PO HS PRN PRN Reason: Constipation Memantine (Namenda) 5 mg PO BID [facility] Last Admin: 03/20/18 22:59 Dose: 5 mg Methimazole (Tapazole) 5 mg PO DAILY [facility] Metoprolol Tartrate (Lopressor) 25 mg PO Q12 [facility] Last Admin: 03/20/18 22:58 Dose: 25 mg Multivitamins/Minerals (Therapeutic-M Tab) 1 tab PO DAILY [facility] Oxycodone/Acetaminophen (Percocet 5/325 Mg Tab) 1 tab PO Q4 PRN PRN Reason: Pain, moderate (4-7) Stop: 03/23/18 20:39 Silver Sulfadiazine (Silvadene 1% 50 Gm) 1 applic TOP BID [facility] Sodium Hypochlorite (Dakins Solution 0.125%) 1 appl TOP QD7 [facility] Tramadol HCl (Ultram) 50 mg PO Q6 PRN PRN Reason: Pain, moderate (4-7) Physical Exam - Constitutional Appears: No Acute Distress - Head Exam Head Exam: ATRAUMATIC, NORMAL INSPECTION, NORMOCEPHALIC - Eye Exam Eye Exam: EOMI, Normal appearance, PERRL Pupil Exam: NORMAL ACCOMODATION, PERRL - ENT Exam ENT Exam: Mucous Membranes Moist, Normal Exam - Neck Exam Neck exam: Positive for: Normal Inspection - Respiratory Exam Respiratory Exam: NORMAL BREATHING PATTERN - Cardiovascular Exam Cardiovascular Exam: REGULAR RHYTHM - GI/Abdominal Exam GI & Abdominal Exam: Soft. absent: Distended, Firm, Hernia - Exam Exam: NORMAL INSPECTION - Extremities Exam Extremities exam: Positive for: tenderness. Negative for: joint swelling, normal inspection, pedal pulses present - Expanded Lower Extremities Exam Left Upper Leg exam: normal inspection Knee exam: abrasion. absent: full knee extension, full ROM (Thready palpable SFA, Non palpable popliteal ) Lower Leg Exam: abrasion, deformity, erythema, tenderness. absent: full ROM ( wrapped with kerlix), normal inspection Ankle exam: abrasion, deformity, erythema, tenderness. absent: FULL ROM Foot/Toe exam: abrasion, calcaneal tenderness, deformity, erythema, tenderness ( 2nd phalanx necrotic. ). absent: normal inspection Right Hip exam: normal inspection Upper Leg exam: full ROM (SFA thready palpable pulses. ) Knee exam: abrasion, deformity, tenderness. absent: full knee extension (non palpable popliteal pulses), normal inspection Lower Leg Exam: abrasion, erythema, tenderness (wrapped with kerlix ). absent: normal inspection Ankle exam: abrasion, erythema, tenderness. absent: NORMAL INSPECTION Foot/Toe exam: abrasion, deformity, erythema, tenderness, tenderness at base of 5th metatarsal (necrotic 2,3,4th phalanx ). absent: full ROM Neuro vacular tendon exam: abnormal cap refill, pulse deficit - Neurological Exam Neurological exam: Alert, Oriented x3 - Skin Skin Exam: Abrasion, Erythema, Pallor Additional comments: calmy feet - Expanded Skin Exam Expanded Type of lesion: Abrasion Distribution of rash: Right Lower Extremity, Left Lower Extremity Description of Rash: Crusting, Discharge, Erythematous Results - Vital Signs Recent Vital Signs: Last Vital Signs Temp 97.3 F L 03/21/18 00:36 Pulse 77 03/21/18 00:36 Resp 18 03/21/18 00:36 BP 111/73 03/21/18 00:36 Pulse Ox 100 03/21/18 00:36 - Labs Result Diagrams: 03/20/18 13:45 03/20/18 13:45 Labs: Laboratory Results - last 24 hr 03/20/18 03/20/18 03/20/18 13:26 13:45 13:45 WBC 10.2 RBC 3.71 L Hgb 8.6 L Hct 29.5 L MCV 79.4 L MCH 23.3 L MCHC 29.4 L RDW 23.1 H Plt Count 404 H MPV 8.0 Neut % (Auto) 83.3 H Lymph % (Auto) 5.3 L Mellette % (Auto) 10.5 H Eos % (Auto) 0.4 Baso % (Auto) 0.5 Neut # (Auto) 8.5 H Lymph # (Auto) 0.5 L Mellette # (Auto) 1.1 H Eos # (Auto) 0.0 Baso # (Auto) 0.0 Neutrophils % (Manual) 82 H Lymphocytes % (Manual) 7 L Monocytes % (Manual) 11 H Platelet Estimate Slightly increased H Large Platelets Present Hypochromasia (manual) Slight Anisocytosis (manual) Marked Ovalocytes Slight ESR 41 H PT INR APTT Sodium 144 Potassium 4.0 Chloride 106 Carbon Dioxide 25 Anion Gap 17 BUN 40 H Creatinine 1.0 Est GFR ( Amer) > 60 Est GFR (Non-Af Amer) 53 POC Glucose (mg/dL) 114 H Random Glucose 115 H Calcium 8.9 Blood Type Antibody Screen BBK History Checked 03/20/18 03/20/18 03/20/18 15:00 15:00 21:18 WBC RBC Hgb Hct MCV MCH MCHC RDW Plt Count MPV Neut % (Auto) Lymph % (Auto) Mellette % (Auto) Eos % (Auto) Baso % (Auto) Neut # (Auto) Lymph # (Auto) Mellette # (Auto) Eos # (Auto) Baso # (Auto) Neutrophils % (Manual) Lymphocytes % (Manual) Monocytes % (Manual) Platelet Estimate Large Platelets Hypochromasia (manual) Anisocytosis (manual) Ovalocytes ESR PT 13.1 INR 1.2 APTT 31.2 Sodium Potassium Chloride Carbon Dioxide Anion Gap BUN Creatinine Est GFR ( Amer) Est GFR (Non-Af Amer) POC Glucose (mg/dL) 130 H Random Glucose Calcium Blood Type Cancelled Antibody Screen Cancelled BBK History Checked Cancelled 03/21/18 05:48 WBC RBC Hgb Hct MCV MCH MCHC RDW Plt Count MPV Neut % (Auto) Lymph % (Auto) Mellette % (Auto) Eos % (Auto) Baso % (Auto) Neut # (Auto) Lymph # (Auto) Mellette # (Auto) Eos # (Auto) Baso # (Auto) Neutrophils % (Manual) Lymphocytes % (Manual) Monocytes % (Manual) Platelet Estimate Large Platelets Hypochromasia (manual) Anisocytosis (manual) Ovalocytes ESR PT INR APTT Sodium Potassium Chloride Carbon Dioxide Anion Gap BUN Creatinine Est GFR ( Amer) Est GFR (Non-Af Amer) POC Glucose (mg/dL) 126 H Random Glucose Calcium Blood Type Antibody Screen BBK History Checked Assessment & Plan - Assessment and Plan (Free Text) Assessment: Non healing necrotic b/l LE wounds : Pt unsure about further invasive intervention -Podiatry recommends R BKA -Recommend revascularization prior to BKA or AKA: f/u Dr. Damon input -Medical management -Wound care Will DW Dr. Woods
[2018-03-21] MEDS: Oxycodone/Acetaminophen 5/325 mg Tab PO PRN (07:40)
--- NOTE | 2018-03-21 08:50 | CP.PCM.PN ---
Subjective - Date & Time of Evaluation Date of Evaluation: 03/21/18 Time of Evaluation: 08:47 - Subjective Subjective: Podiatry Consult Note for attending Dr. Briseno 77 y/o female patient seen and evaluated in the bedside for bilateral lower extremity ulcerations with swelling and cellulites. Patient states that she is has pain her legs b/l. Patient was sitting in her bed uncomfortably and in pain. She is communicating. patient denies any overnight nausea, fever, shortness of breath, or chest pains. Objective - Vital Signs/Intake and Output Vital Signs (last 24 hours): Temp Pulse Resp BP Pulse Ox 98.3 F 85 20 116/72 99 03/21/18 07:53 03/21/18 07:53 03/21/18 07:53 03/21/18 07:53 03/21/18 07:53 - Medications Medications: Current Medications Acetaminophen (Tylenol 325mg Tab) 650 mg PO Q4 PRN PRN Reason: Pain, Mild (1-3) Aspirin (Aspirin) 325 mg PO DAILY [facility] Bisacodyl (Dulcolax) 10 mg [place] DAILY PRN PRN Reason: Constipation Clopidogrel Bisulfate (Plavix) 75 mg PO DAILY [facility] Dimethicone (Proshield Plus Skin Protectant) 1 applic TOP QSHIFT [facility] Docusate Sodium (Colace) 100 mg PO DAILY [facility] Enoxaparin Sodium (Lovenox) 30 mg SC DAILY [facility] PRN Reason: Protocol Escitalopram Oxalate (Lexapro) 5 mg PO HS [facility] Last Admin: 03/20/18 22:58 Dose: 5 mg Famotidine (Pepcid) 20 mg PO DAILY [facility] Ferrous Sulfate (Feosol) 325 mg PO DAILY [facility] Furosemide (Lasix) 20 mg PO DAILY [facility] Glipizide (Glucotrol Xl) 2.5 mg PO DAILY [facility] Home Med (Hydrogen Peroxide [Peroxyl Dental Rinse]) 1 appl TOP MOWEFR [facility] Isosorbide Mononitrate (Imdur Er) 30 mg PO DAILY [facility] Magnesium Hydroxide (Milk Of Magnesia) 30 ml PO HS PRN PRN Reason: Constipation Memantine (Namenda) 5 mg PO BID [facility] Last Admin: 03/20/18 22:59 Dose: 5 mg Methimazole (Tapazole) 5 mg PO DAILY [facility] Metoprolol Tartrate (Lopressor) 25 mg PO Q12 [facility] Last Admin: 03/20/18 22:58 Dose: 25 mg Multivitamins/Minerals (Therapeutic-M Tab) 1 tab PO DAILY [facility] Oxycodone/Acetaminophen (Percocet 5/325 Mg Tab) 1 tab PO Q4 PRN PRN Reason: Pain, moderate (4-7) Stop: 03/23/18 20:39 Silver Sulfadiazine (Silvadene 1% 50 Gm) 1 applic TOP BID [facility] Sodium Hypochlorite (Dakins Solution 0.125%) 1 appl TOP QD7 [facility] Tramadol HCl (Ultram) 50 mg PO Q6 PRN PRN Reason: Pain, moderate (4-7) - Labs Labs: 03/20/18 13:45 03/20/18 13:45 PT 13.1 Seconds (9.8-13.1) 03/20/18 15:00 INR 1.2 (0.9-1.2) 03/20/18 15:00 APTT 31.2 Seconds (25.6-37.1) 03/20/18 15:00 - Head Exam Head Exam: ATRAUMATIC, NORMOCEPHALIC - Extremities Exam Additional comments: Lower extremity focused exam Vasc: DP pulses and PT pulses non-palpable, Temp gradient cool to cool, Cap refill delayed to digits/not attainable due to necrosis of 2-5 on right foot Neuro: Protective sensation grossly intact bilaterally MSK: all wounds painful to palpation Derm: Multiple ulcerations noted to the entire lower extremity with mixture of fibrotic/necrotic wound base: Erythema to the entire LE R>L, malodorous, all sites (-) for purulence, probe to bone, tunneling or undermining. RIGHT- 1) Necrotic right heel eschar unstagable with no drainage noted measuring 9.0 cm X 7.0 cm 2) Circumferential ulceration to the medial posterior aspect measuring 21 cm in length, fibrotic edges, peroneal tendon exposed, drainage noted 3) necrotic 2nd and 3rd digits till the level of the MPTJ, dorsally necrotic 4th digit t the level of the MTPJ 4) necrotic ulceration to the dorsal aspect of the hallux at the PIPJ measuring 3.0 cmX 2.5 cm 5) necrotic ulceration to the dorsal forefoot measuring 2.5 cm X 1.8 cm 6) necrotic ulceration noted to the medial ankle distal to the medial malleolus measuring 4. 0 X 2.0 cm, + fluctuance noted 7) necrotic ulceration to the anterior tibial tuberosity measuring 3.0 X 1.0 cm 8) circular ulceration noted to the medial aspect of the leg at the level of the tibial tuberosity measuring 2.4 cm X 2.6 cm with 80% graular and 20% fibrotic bases, surrounding erythema 9) multiple stable eschars to the knee LEFT- 1) echar to the heel, necrotic, measuring 5.0 cm X 6.0 cm 2) necrotic ulceration to the dorsal aspect of the foot, with fibrotic edges, positive drainage 3) necrotic ulceration to the medial aspect of the leg measuring 5.0 c, X 3.0 cm 4) gangranous changes to the tip of the hallux, and to the dorsum of the 2nd digit 5) multipe eschars to the tibial tuberosity, stable in nature - Neurological Exam Neurological Exam: Alert Assessment and Plan - Assessment and Plan (Free Text) Assessment: 77 y/o F patient seen and evaluated at bedside for multiple b/l LE ulcerations. gangrenous right 2nd, 3rd and 4th toes Plan: Patient seen and evaluated in the bedside Plan discussed in details with attending Dr. Briseno Patient chart, labs and vitals reviewed; afebrile, No leukocytosis. Arterial duplex LE didn't reveal any stenotic changes proximally. X-ray foot b/l; No signs of acute osseous changes b/l. Proximal tib-fibula X-ray; multiple deep ulcers, no evidence of osteomyelitis. ID consult; Pending. wound culture; pending. Vascular consult; pending. Wounds dressed with Adaptic, Dakins, ABD and DSD. Ordered 1mg Morphine stat for the patient for her pain. Podiatry will continue to follow up the patient in house.
[2018-03-21] MEDS: GlipiZIDE 2.5 mg SR Tab PO SCH (08:53)
[2018-03-21] MEDS: Silver Sulfadiazine 1% CREAM (50 gm) TOP SCH ×2 (08:54→16:48)
[2018-03-21] MEDS: Multivitamin With Minerals Tab PO SCH (08:54)
[2018-03-21] MEDS: methIMAzole 5 MG TAB PO SCH (08:54)
[2018-03-21] MEDS ORDERED: Enoxaparin 30 mg Syringe SC SCH (09:00)
[2018-03-21] MEDS ORDERED: Enoxaparin 40 mg Syringe SC SCH (09:00)
[2018-03-21] MEDS ORDERED: AMIKACIN SULFATE IVPB SCH (09:00)
[2018-03-21] MEDS ORDERED: SODIUM CHLORIDE 0.9% IVPB SCH (09:00)
--- NOTE | 2018-03-21 10:48 | CP.PCM.HP ---
History of Present Illness - History of Present Illness History of Present Illness: 77 yo transferred from [place] Pt has significant PVD S/P PTCA low ext Present on Admission - Present on Admission Any Indicators Present on Admission: No Past Patient History - Infectious Disease Hx of Infectious Diseases: None - Past Medical History & Family History Past Medical History?: Yes - Past Social History Smoking Status: Former Smoker - CARDIAC Hx Congestive Heart Failure: Yes Hx Hypercholesterolemia: Yes Hx Hypertension: Yes Hx Peripheral Edema: Yes - PULMONARY Hx Bronchitis: Yes Hx Chronic Obstructive Pulmonary Disease (COPD): Yes Hx Pneumonia: Yes - NEUROLOGICAL Other/Comment: Paresthesias of both feet - HEENT Hx HEENT Problems: No - RENAL Hx Chronic Kidney Disease: Yes - ENDOCRINE/METABOLIC Hx Hyperthyroidism: Yes - HEMATOLOGICAL/ONCOLOGICAL Hx AIDS: No Hx Anemia: Yes Hx Human Immunodeficiency Virus (HIV): No - INTEGUMENTARY Hx Dermatological Problems: Yes Hx Cellulitis: Yes - MUSCULOSKELETAL/RHEUMATOLOGICAL Hx Musculoskeletal Disorders: Yes Hx Falls: Yes - GASTROINTESTINAL Hx Gastrointestinal Disorders: No - GENITOURINARY/GYNECOLOGICAL Hx Genitourinary Disorders: No - PSYCHIATRIC Hx Psychophysiologic Disorder: Yes Hx Anxiety: Yes Hx Substance Use: No - SURGICAL HISTORY Hx Appendectomy: Yes Other/Comment: kidney stone removal - ANESTHESIA Hx Anesthesia: Yes Hx Anesthesia Reactions: No Hx Malignant Hyperthermia: No Meds Allergies/Adverse Reactions: Allergies Allergy/AdvReac Type Severity Reaction Status Date / Time No Known Allergies Allergy Verified 03/20/18 12:54 Results - Vital Signs Recent Vital Signs: Last Vital Signs Temp 98.3 F 03/21/18 07:53 Pulse 85 03/21/18 08:53 Resp 20 03/21/18 07:53 BP 116/72 03/21/18 08:53 Pulse Ox 99 03/21/18 07:53 - Labs Result Diagrams: 03/20/18 13:45 03/20/18 13:45 Labs: Laboratory Results - last 24 hr 03/20/18 03/20/18 03/20/18 13:26 13:45 13:45 WBC 10.2 RBC 3.71 L Hgb 8.6 L Hct 29.5 L MCV 79.4 L MCH 23.3 L MCHC 29.4 L RDW 23.1 H Plt Count 404 H MPV 8.0 Neut % (Auto) 83.3 H Lymph % (Auto) 5.3 L Bryan % (Auto) 10.5 H Eos % (Auto) 0.4 Baso % (Auto) 0.5 Neut # (Auto) 8.5 H Lymph # (Auto) 0.5 L Bryan # (Auto) 1.1 H Eos # (Auto) 0.0 Baso # (Auto) 0.0 Neutrophils % (Manual) 82 H Lymphocytes % (Manual) 7 L Monocytes % (Manual) 11 H Platelet Estimate Slightly increased H Large Platelets Present Hypochromasia (manual) Slight Anisocytosis (manual) Marked Ovalocytes Slight ESR 41 H PT INR APTT Sodium 144 Potassium 4.0 Chloride 106 Carbon Dioxide 25 Anion Gap 17 BUN 40 H Creatinine 1.0 Est GFR ( Amer) > 60 Est GFR (Non-Af Amer) 53 POC Glucose (mg/dL) 114 H Random Glucose 115 H Calcium 8.9 Blood Type Antibody Screen BBK History Checked 03/20/18 03/20/18 03/20/18 15:00 15:00 21:18 WBC RBC Hgb Hct MCV MCH MCHC RDW Plt Count MPV Neut % (Auto) Lymph % (Auto) Bryan % (Auto) Eos % (Auto) Baso % (Auto) Neut # (Auto) Lymph # (Auto) Bryan # (Auto) Eos # (Auto) Baso # (Auto) Neutrophils % (Manual) Lymphocytes % (Manual) Monocytes % (Manual) Platelet Estimate Large Platelets Hypochromasia (manual) Anisocytosis (manual) Ovalocytes ESR PT 13.1 INR 1.2 APTT 31.2 Sodium Potassium Chloride Carbon Dioxide Anion Gap BUN Creatinine Est GFR ( Amer) Est GFR (Non-Af Amer) POC Glucose (mg/dL) 130 H Random Glucose Calcium Blood Type Cancelled Antibody Screen Cancelled BBK History Checked Cancelled 03/21/18 03/21/18 05:48 10:39 WBC RBC Hgb Hct MCV MCH MCHC RDW Plt Count MPV Neut % (Auto) Lymph % (Auto) Bryan % (Auto) Eos % (Auto) Baso % (Auto) Neut # (Auto) Lymph # (Auto) Bryan # (Auto) Eos # (Auto) Baso # (Auto) Neutrophils % (Manual) Lymphocytes % (Manual) Monocytes % (Manual) Platelet Estimate Large Platelets Hypochromasia (manual) Anisocytosis (manual) Ovalocytes ESR PT INR APTT Sodium Potassium Chloride Carbon Dioxide Anion Gap BUN Creatinine Est GFR ( Amer) Est GFR (Non-Af Amer) POC Glucose (mg/dL) 126 H 173 H Random Glucose Calcium Blood Type Antibody Screen BBK History Checked Assessment & Plan - Assessment and Plan (Free Text) Assessment: PVD Significant Periphereal Arterial Occlusive dx S/P Angioplasty Stents Low ext edema cellulitis Gangrene Local wound care IV ABX ID Podiatry Surgery Physiatry Vascular Psychiatric dx?? Ultram?? Adj disorder with depression Psychiatry Psychology SSRI Resperidol Hx CHF Diastolic CAD stress thalium scarring ischemia?? cardiac cath refused?? Cardiology Hx COPD L Pleural effusion Pulmonary Hx ABBEY/ CKD creat improved Hx Anemia Chronic dx ASA d/c as outpt due to dec Hbg S/P Procrit transfusion NIDDM Thyroid dx - Date & Time Date: 03/21/18 Time: 22:22
--- NOTE | 2018-03-21 13:27 | CP.PCM.CON ---
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 Review of Systems - Review of Systems Systems not reviewed;Unavailable: Acuity of Condition - Constitutional Constitutional: As Per HPI - EENT Eyes: As Per HPI Ears: As Per HPI Nose/Mouth/Throat: As Per HPI - Breasts Breasts: As Per HPI - Cardiovascular Cardiovascular: As Per HPI - Respiratory Respiratory: As Per HPI - Gastrointestinal Gastrointestinal: As Per HPI - Genitourinary Genitourinary: As Per HPI - Reproductive: Female Reproductive:Female: As Per HPI - Menstruation Menstruation: As Per HPI - Musculoskeletal Musculoskeletal: As Per HPI - Integumentary Integumentary: As Per HPI - Neurological Neurological: As Per HPI - Psychiatric Psychiatric: As Per HPI - Endocrine Endocrine: As Per HPI - Hematologic/Lymphatic Hematologic: As Per HPI Past Patient History - Infectious Disease Hx of Infectious Diseases: None - Past Medical History & Family History Past Medical History?: Yes - Past Social History Smoking Status: Former Smoker - CARDIAC Hx Congestive Heart Failure: Yes Hx Hypercholesterolemia: Yes Hx Hypertension: Yes Hx Peripheral Edema: Yes - PULMONARY Hx Bronchitis: Yes Hx Chronic Obstructive Pulmonary Disease (COPD): Yes Hx Pneumonia: Yes - NEUROLOGICAL Other/Comment: Paresthesias of both feet - HEENT Hx HEENT Problems: No - RENAL Hx Chronic Kidney Disease: Yes - ENDOCRINE/METABOLIC Hx Hyperthyroidism: Yes - HEMATOLOGICAL/ONCOLOGICAL Hx AIDS: No Hx Anemia: Yes Hx Human Immunodeficiency Virus (HIV): No - INTEGUMENTARY Hx Dermatological Problems: Yes Hx Cellulitis: Yes - MUSCULOSKELETAL/RHEUMATOLOGICAL Hx Musculoskeletal Disorders: Yes Hx Falls: Yes - GASTROINTESTINAL Hx Gastrointestinal Disorders: No - GENITOURINARY/GYNECOLOGICAL Hx Genitourinary Disorders: No - PSYCHIATRIC Hx Psychophysiologic Disorder: Yes Hx Anxiety: Yes Hx Substance Use: No - SURGICAL HISTORY Hx Appendectomy: Yes Other/Comment: kidney stone removal - ANESTHESIA Hx Anesthesia: Yes Hx Anesthesia Reactions: No Hx Malignant Hyperthermia: No Meds Allergies/Adverse Reactions: Allergies Allergy/AdvReac Type Severity Reaction Status Date / Time No Known Allergies Allergy Verified 03/20/18 12:54 - Medications Medications: Current Medications Acetaminophen (Tylenol 325mg Tab) 650 mg PO Q4 PRN PRN Reason: Pain, Mild (1-3) Aspirin (Aspirin) 325 mg PO DAILY [facility] Last Admin: 03/21/18 09:07 Dose: Not Given Bisacodyl (Dulcolax) 10 mg [place] DAILY PRN PRN Reason: Constipation Clopidogrel Bisulfate (Plavix) 75 mg PO DAILY [facility] Last Admin: 03/21/18 09:07 Dose: Not Given Dimethicone (Proshield Plus Skin Protectant) 1 applic TOP [facility] Docusate Sodium (Colace) 100 mg PO DAILY [facility] Last Admin: 03/21/18 08:53 Dose: 100 mg Enoxaparin Sodium (Lovenox) 40 mg SC DAILY [facility] PRN Reason: Protocol Last Admin: 03/21/18 11:01 Dose: 40 mg Escitalopram Oxalate (Lexapro) 5 mg PO HS [facility] Last Admin: 03/20/18 22:58 Dose: 5 mg Famotidine (Pepcid) 20 mg PO DAILY [facility] Last Admin: 03/21/18 08:52 Dose: 20 mg Ferrous Sulfate (Feosol) 325 mg PO DAILY [facility] Last Admin: 03/21/18 08:53 Dose: 325 mg Furosemide (Lasix) 20 mg PO DAILY [facility] Last Admin: 03/21/18 08:53 Dose: 20 mg Glipizide (Glucotrol Xl) 2.5 mg PO DAILY [facility] Last Admin: 03/21/18 08:53 Dose: 2.5 mg Amikacin Sulfate 300 mg/ (Sodium Chloride) 251.2 mls @ 250 mls/hr IVPB Q24H [facility] PRN Reason: Protocol Last Admin: 03/21/18 12:09 Dose: 250 mls/hr Piperacillin Sod/Tazobactam (Sod 2.25 gm/ Sodium Chloride) 100 mls @ 100 mls/ hr IVPB Q8 [facility] PRN Reason: Protocol Last Admin: 03/21/18 10:55 Dose: 100 mls/hr Isosorbide Mononitrate (Imdur Er) 30 mg PO DAILY [facility] Last Admin: 03/21/18 08:53 Dose: 30 mg Magnesium Hydroxide (Milk Of Magnesia) 30 ml PO HS PRN PRN Reason: Constipation Memantine (Namenda) 5 mg PO BID [facility] Last Admin: 03/21/18 08:54 Dose: 5 mg Methimazole (Tapazole) 5 mg PO DAILY [facility] Last Admin: 03/21/18 08:54 Dose: 5 mg Metoprolol Tartrate (Lopressor) 25 mg PO Q12 [facility] Last Admin: 03/21/18 08:53 Dose: 25 mg Multivitamins/Minerals (Therapeutic-M Tab) 1 tab PO DAILY [facility] Last Admin: 03/21/18 08:54 Dose: 1 tab Oxycodone/Acetaminophen (Percocet 5/325 Mg Tab) 1 tab PO Q4 PRN PRN Reason: Pain, moderate (4-7) Stop: 03/23/18 20:39 Silver Sulfadiazine (Silvadene 1% 50 Gm) 1 applic TOP BID [facility] Last Admin: 03/21/18 08:54 Dose: 1 applic Sodium Hypochlorite (Dakins Solution 0.125%) 1 appl TOP QD7 [facility] Last Admin: 03/21/18 08:15 Dose: 1 appl Tramadol HCl (Ultram) 50 mg PO Q6 PRN PRN Reason: Pain, moderate (4-7) Physical Exam - Constitutional Appears: Unkempt, Older Than Stated Age - Head Exam Head Exam: ATRAUMATIC, NORMAL INSPECTION, NORMOCEPHALIC - Eye Exam Eye Exam: EOMI, Normal appearance, PERRL Pupil Exam: NORMAL ACCOMODATION, PERRL - ENT Exam ENT Exam: Mucous Membranes Moist, Normal Exam - Neck Exam Neck exam: Positive for: Normal Inspection - Respiratory Exam Respiratory Exam: Clear to Auscultation Bilateral, NORMAL BREATHING PATTERN - Cardiovascular Exam Cardiovascular Exam: REGULAR RHYTHM - GI/Abdominal Exam GI & Abdominal Exam: Normal Bowel Sounds, Soft. absent: Tenderness - Extremities Exam Extremities exam: Positive for: normal inspection Additional comments: gangrene of bilateral LE , wrapped in dsg - Back Exam Back exam: NORMAL INSPECTION - Neurological Exam Neurological exam: Alert, CN II-XII Intact, Normal Gait, Oriented x3, Reflexes Normal - Psychiatric Exam Psychiatric exam: Normal Affect, Normal Mood - Skin Skin Exam: Dry, Intact, Normal Color, Warm Results - Vital Signs Recent Vital Signs: Last Vital Signs Temp 98.3 F 03/21/18 07:53 Pulse 85 03/21/18 08:53 Resp 20 03/21/18 07:53 BP 116/72 03/21/18 08:53 Pulse Ox 99 03/21/18 07:53 - Labs Result Diagrams: 03/20/18 13:45 03/20/18 13:45 Labs: Laboratory Results - last 24 hr 03/20/18 03/20/18 03/20/18 13:26 13:45 13:45 WBC 10.2 RBC 3.71 L Hgb 8.6 L Hct 29.5 L MCV 79.4 L MCH 23.3 L MCHC 29.4 L RDW 23.1 H Plt Count 404 H MPV 8.0 Neut % (Auto) 83.3 H Lymph % (Auto) 5.3 L [place] % (Auto) 10.5 H Eos % (Auto) 0.4 Baso % (Auto) 0.5 Neut # (Auto) 8.5 H Lymph # (Auto) 0.5 L [place] # (Auto) 1.1 H Eos # (Auto) 0.0 Baso # (Auto) 0.0 Neutrophils % (Manual) 82 H Lymphocytes % (Manual) 7 L Monocytes % (Manual) 11 H Platelet Estimate Slightly increased H Large Platelets Present Hypochromasia (manual) Slight Anisocytosis (manual) Marked Ovalocytes Slight ESR 41 H PT INR APTT Sodium 144 Potassium 4.0 Chloride 106 Carbon Dioxide 25 Anion Gap 17 BUN 40 H Creatinine 1.0 Est GFR ( Amer) > 60 Est GFR (Non-Af Amer) 53 POC Glucose (mg/dL) 114 H Random Glucose 115 H Calcium 8.9 Blood Type Antibody Screen BBK History Checked 03/20/18 03/20/18 03/20/18 15:00 15:00 21:18 WBC RBC Hgb Hct MCV MCH MCHC RDW Plt Count MPV Neut % (Auto) Lymph % (Auto) [place] % (Auto) Eos % (Auto) Baso % (Auto) Neut # (Auto) Lymph # (Auto) [place] # (Auto) Eos # (Auto) Baso # (Auto) Neutrophils % (Manual) Lymphocytes % (Manual) Monocytes % (Manual) Platelet Estimate Large Platelets Hypochromasia (manual) Anisocytosis (manual) Ovalocytes ESR PT 13.1 INR 1.2 APTT 31.2 Sodium Potassium Chloride Carbon Dioxide Anion Gap BUN Creatinine Est GFR ( Amer) Est GFR (Non-Af Amer) POC Glucose (mg/dL) 130 H Random Glucose Calcium Blood Type Cancelled Antibody Screen Cancelled BBK History Checked Cancelled 03/21/18 03/21/18 05:48 10:39 WBC RBC Hgb Hct MCV MCH MCHC RDW Plt Count MPV Neut % (Auto) Lymph % (Auto) [place] % (Auto) Eos % (Auto) Baso % (Auto) Neut # (Auto) Lymph # (Auto) [place] # (Auto) Eos # (Auto) Baso # (Auto) Neutrophils % (Manual) Lymphocytes % (Manual) Monocytes % (Manual) Platelet Estimate Large Platelets Hypochromasia (manual) Anisocytosis (manual) Ovalocytes ESR PT INR APTT Sodium Potassium Chloride Carbon Dioxide Anion Gap BUN Creatinine Est GFR ( Amer) Est GFR (Non-Af Amer) POC Glucose (mg/dL) 126 H 173 H Random Glucose Calcium Blood Type Antibody Screen BBK History Checked Assessment & Plan (1) Gangrenous toe Assessment and Plan: cont DAPT ( ASA + plavix ) Abx for sepsis tranfuse to keep Hgb > 9 plan for peripheral angiogram ( will discuss with surgery for possible strategy ) on Saturday IV heparin gtt Status: Acute (2) Abnormal nuclear stress test Assessment and Plan: will need coronary evaluation ( can time it with peripheral ) asa, plavix, statins, bb, nitrates Status: Acute (3) Bilateral leg ulcer Status: Acute (4) Anemia Status: Acute
--- NOTE | 2018-03-21 14:06 | CP.PCM.CON ---
History of Present Illness - History of Present Illness History of Present Illness: 77 yo F with history diabetes, chf, anemia was sent by [facility] for bilateral toe wounds/ulcers/gangrene with foul odor. Pt [facility]. Pt c/o throbbing pain in toes without aggravating/alleviating factors. Pt denies chest pain, dyspnea, abdominal pain, feeling ill, chills. seen by vascular - will go for angio on Saturday if conservative management fails will need amputation in the meantime cont empiric IV antibiotics Review of Systems - Review of Systems All systems: reviewed and no additional remarkable complaints except - Constitutional Constitutional: As Per HPI - EENT Eyes: absent: As Per HPI, Blind Spots, Blurred Vision, Change in Vision, Decreased Night Vision, Diplopia, Discharge, Dry Eye, Exophthalmos, Floaters, Irritation, Itchy Eyes, Loss of Peripheral Vision, Pain, Photophobia, Requires Corrective Lenses, Sees Flashes, Spots in Vision, Tunnel Vision, Other Visual Disturbances, Loss of Vision, Other Ears: absent: As Per HPI, Decreased Hearing, Ear Discharge, Ear Pain, Tinnitus, Abnormal Hearing, Disequilibrium, Dizziness, Other Nose/Mouth/Throat: absent: As Per HPI, Epistaxis, Nasal Congestion, Nasal Discharge, Nasal Obstruction, Nasal Trauma, Nose Pain, Post Nasal Drip, Sinus Pain, Sinus Pressure, Bleeding Gums, Change in Voice, Dental Pain, Dry Mouth, Dysphagia, Halitosis, Hoarsness, Lip Swelling, Mouth Lesions, Mouth Pain, Odynophagia, Sore Throat, Throat Swelling, Tongue Swelling, Facial Pain, Neck Pain, Neck Mass, Other - Cardiovascular Cardiovascular: absent: As Per HPI, Acrocyanosis, Chest Pain, Chest Pain at Rest , Chest Pain with Activity, Claudication, Diaphoresis, Dyspnea, Dyspnea on Exertion, Edema, Irregular Heart Rhythm, Pain Radiating to Arm/Neck/Jaw, Leg Edema, Leg Ulcers, Lightheadedness, Orthopnea, Palpitations, Paroxysmal Nocturnal Dyspnea, Pedal Edema, Radiating Pain, Rapid Heart Rate, Slow Heart Rate, Syncope, Other - Respiratory Respiratory: absent: As Per HPI, Cough, Dyspnea, Hemoptysis, Dyspnea on Exertion , Wheezing, Snoring, Stridor, Pain on Inspiration, Chest Congestion, Excessive Mucous Production, Change in Mucous Color, Pain with Coughing, Other - Gastrointestinal Gastrointestinal: absent: As Per HPI, Abdominal Pain, Belching, Bloating, Change in Bowel Habits, Change in Stool Character, Coffee Ground Emesis, Constipation, Cramping, Diarrhea, Dyspepsia, Dysphagia, Early Satiety, Excessive Flatus, Fecal Incontinence, Heartburn, Hematemesis, Hematochezia, Loose Stools, Melena, Nausea, Odynophagia, Temesmus, Vomiting, Other - Genitourinary Genitourinary: absent: As Per HPI, Change in Urinary Stream, Difficulty Urinating, Dysuria, Flank Pain, Hematuria, Pyuria, Nocturia, Urinary Incontinence, Urinary Frequency, Urinary Hesitance, Urinary Urgency, Voiding Freq/Small Amts, Freq UTI, Hx Renal/Bladder Calculi, Hx /Renal Surgery, Bladder Distension, Other - Reproductive: Female Reproductive:Female: absent: As Per HPI, Amenorrhea, Amenorrhea/ Control, Currently Menstual, Cycle <21 Days, Cycle >35 Days, Cycle Variable, Menses 1-7 Days, Menses >/= 8 Days, Menses Variable, Cycle > 4 Weeks Between, No Menses for 6 Months, Heavy Menses, Light Menses, Normal Menses, Spotting Between Cycles , S/P Hysterectomy, Menopausal, Post Menopausal, Premenarche, Abnormal Vaginal Bleeding, Dysmenorrhea, Dyspareunia, Genital Lesions, Genital Pruritis, Pelvic Pain, Prolapse Symptoms, Sexual Dysfunction, Vaginal Discharge, Vaginal Dryness , Vaginal Odor, Vaginal Pruritis, Other - Menstruation Menstruation: absent: As Per HPI, Amenorrhea, Amenorrhea/ Control, Currently Menstual, Cycle <21 Days, Cycle >35 Days, Cycle Variable, Menses 1-7 Days, Menses >/= 8 Days, Menses Variable, Cycle > 4 Weeks Between, No Menses for 6 Months, Heavy Menses, Light Menses, Normal Menses, Spotting Between Cycles , S/P Hysterectomy, Menopausal, Post Menopausal, Premenarche, Abnormal Vaginal Bleeding, Dysmenorrhea, Other - Musculoskeletal Musculoskeletal: As Per HPI - Integumentary Integumentary: As Per HPI, Skin Pain, Wounds - Neurological Neurological: As Per HPI - Psychiatric Psychiatric: As Per HPI, Hallucinations - Endocrine Endocrine: absent: As Per HPI, Change in Body Appearance, Change in Libido, Cold Intolorance, Deepening of Voice, Excessive Sweating, Fatigue, Flushing, Heat Intolorance, Increase in Ring/Shoe/Hat Size, Palpitations, Polydipsia, Polyphagia, Polyuria, Other - Hematologic/Lymphatic Hematologic: absent: As Per HPI, Easy Bleeding, Easy Bruising, Lymphadenopathy, Other Past Patient History - Infectious Disease Hx of Infectious Diseases: None - Past Medical History & Family History Past Medical History?: Yes - Past Social History Smoking Status: Former Smoker - CARDIAC Hx Congestive Heart Failure: Yes Hx Hypercholesterolemia: Yes Hx Hypertension: Yes Hx Peripheral Edema: Yes - PULMONARY Hx Bronchitis: Yes Hx Chronic Obstructive Pulmonary Disease (COPD): Yes Hx Pneumonia: Yes - NEUROLOGICAL Other/Comment: Paresthesias of both feet - HEENT Hx HEENT Problems: No - RENAL Hx Chronic Kidney Disease: Yes - ENDOCRINE/METABOLIC Hx Hyperthyroidism: Yes - HEMATOLOGICAL/ONCOLOGICAL Hx AIDS: No Hx Anemia: Yes Hx Human Immunodeficiency Virus (HIV): No - INTEGUMENTARY Hx Dermatological Problems: Yes Hx Cellulitis: Yes - MUSCULOSKELETAL/RHEUMATOLOGICAL Hx Musculoskeletal Disorders: Yes Hx Falls: Yes - GASTROINTESTINAL Hx Gastrointestinal Disorders: No - GENITOURINARY/GYNECOLOGICAL Hx Genitourinary Disorders: No - PSYCHIATRIC Hx Psychophysiologic Disorder: Yes Hx Anxiety: Yes Hx Substance Use: No - SURGICAL HISTORY Hx Appendectomy: Yes Other/Comment: kidney stone removal - ANESTHESIA Hx Anesthesia: Yes Hx Anesthesia Reactions: No Hx Malignant Hyperthermia: No Meds Allergies/Adverse Reactions: Allergies Allergy/AdvReac Type Severity Reaction Status Date / Time No Known Allergies Allergy Verified 03/20/18 12:54 - Medications Medications: Current Medications Acetaminophen (Tylenol 325mg Tab) 650 mg PO Q4 PRN PRN Reason: Pain, Mild (1-3) Aspirin (Aspirin) 325 mg PO DAILY [facility] Last Admin: 03/21/18 09:07 Dose: Not Given Bisacodyl (Dulcolax) 10 mg [place] DAILY PRN PRN Reason: Constipation Clopidogrel Bisulfate (Plavix) 75 mg PO DAILY [facility] Last Admin: 03/21/18 09:07 Dose: Not Given Dimethicone (Proshield Plus Skin Protectant) [facility] Docusate Sodium (Colace) 100 mg PO DAILY [facility] Last Admin: 03/21/18 08:53 Dose: 100 mg Enoxaparin Sodium (Lovenox) 40 mg SC DAILY [facility] PRN Reason: Protocol Last Admin: 03/21/18 11:01 Dose: 40 mg Escitalopram Oxalate (Lexapro) 5 mg PO HS [facility] Last Admin: 03/20/18 22:58 Dose: 5 mg Famotidine (Pepcid) 20 mg PO DAILY [facility] Last Admin: 03/21/18 08:52 Dose: 20 mg Ferrous Sulfate (Feosol) 325 mg PO DAILY [facility] Last Admin: 03/21/18 08:53 Dose: 325 mg Furosemide (Lasix) 20 mg PO DAILY [facility] Last Admin: 03/21/18 08:53 Dose: 20 mg Glipizide (Glucotrol Xl) 2.5 mg PO DAILY [facility] Last Admin: 03/21/18 08:53 Dose: 2.5 mg Amikacin Sulfate 300 mg/ (Sodium Chloride) 251.2 mls @ 250 mls/hr IVPB Q24H [facility] PRN Reason: Protocol Last Admin: 03/21/18 12:09 Dose: 250 mls/hr Piperacillin Sod/Tazobactam (Sod 2.25 gm/ Sodium Chloride) 100 mls @ 100 mls/ hr IVPB Q8 [facility] PRN Reason: Protocol Last Admin: 03/21/18 10:55 Dose: 100 mls/hr Isosorbide Mononitrate (Imdur Er) 30 mg PO DAILY [facility] Last Admin: 03/21/18 08:53 Dose: 30 mg Magnesium Hydroxide (Milk Of Magnesia) 30 ml PO HS PRN PRN Reason: Constipation Memantine (Namenda) 5 mg PO BID [facility] Last Admin: 03/21/18 08:54 Dose: 5 mg Methimazole (Tapazole) 5 mg PO DAILY [facility] Last Admin: 03/21/18 08:54 Dose: 5 mg Metoprolol Tartrate (Lopressor) 25 mg PO Q12 [facility] Last Admin: 03/21/18 08:53 Dose: 25 mg Multivitamins/Minerals (Therapeutic-M Tab) 1 tab PO DAILY [facility] Last Admin: 03/21/18 08:54 Dose: 1 tab Oxycodone/Acetaminophen (Percocet 5/325 Mg Tab) 1 tab PO Q4 PRN PRN Reason: Pain, moderate (4-7) Stop: 03/23/18 20:39 Silver Sulfadiazine (Silvadene 1% 50 Gm) 1 applic TOP BID [facility] Last Admin: 03/21/18 08:54 Dose: 1 applic Sodium Hypochlorite (Dakins Solution 0.125%) 1 appl TOP QD7 [facility] Last Admin: 03/21/18 08:15 Dose: 1 appl Tramadol HCl (Ultram) 50 mg PO Q6 PRN PRN Reason: Pain, moderate (4-7) Physical Exam - Constitutional Appears: Non-toxic, Confused, Cachectic, Chronically Ill - Head Exam Head Exam: ATRAUMATIC, NORMOCEPHALIC - Eye Exam Eye Exam: PERRL. absent: Scleral icterus - ENT Exam ENT Exam: Mucous Membranes Dry, Normal External Ear Exam - Neck Exam Neck exam: Negative for: Lymphadenopathy - Respiratory Exam Respiratory Exam: Decreased Breath Sounds - Cardiovascular Exam Cardiovascular Exam: REGULAR RHYTHM - GI/Abdominal Exam GI & Abdominal Exam: Diminished Bowel Sounds, Soft. absent: Tenderness - Rectal Exam Rectal Exam: Deferred - Exam Exam: NORMAL INSPECTION - Extremities Exam Extremities exam: Positive for: pedal edema, tenderness. Negative for: calf tenderness, pedal pulses present Additional comments: cool extrremities with ulcers which are foul smelling - Back Exam Back exam: absent: CVA tenderness (L), CVA tenderness (R) - Neurological Exam Neurological exam: Alert, CN II-XII Intact, Oriented x3, Reflexes Normal - Psychiatric Exam Psychiatric exam: Normal Mood - Skin Skin Exam: Dry Results - Vital Signs Recent Vital Signs: Last Vital Signs Temp 98.3 F 03/21/18 07:53 Pulse 85 03/21/18 08:53 Resp 20 03/21/18 07:53 BP 116/72 03/21/18 08:53 Pulse Ox 99 03/21/18 07:53 - Labs Result Diagrams: 03/20/18 13:45 03/20/18 13:45 Labs: Laboratory Results - last 24 hr 03/20/18 03/20/18 03/20/18 13:26 13:45 13:45 WBC 10.2 RBC 3.71 L Hgb 8.6 L Hct 29.5 L MCV 79.4 L MCH 23.3 L MCHC 29.4 L RDW 23.1 H Plt Count 404 H MPV 8.0 Neut % (Auto) 83.3 H Lymph % (Auto) 5.3 L [place] % (Auto) 10.5 H Eos % (Auto) 0.4 Baso % (Auto) 0.5 Neut # (Auto) 8.5 H Lymph # (Auto) 0.5 L [place] # (Auto) 1.1 H Eos # (Auto) 0.0 Baso # (Auto) 0.0 Neutrophils % (Manual) 82 H Lymphocytes % (Manual) 7 L Monocytes % (Manual) 11 H Platelet Estimate Slightly increased H Large Platelets Present Hypochromasia (manual) Slight Anisocytosis (manual) Marked Ovalocytes Slight ESR 41 H PT INR APTT Sodium 144 Potassium 4.0 Chloride 106 Carbon Dioxide 25 Anion Gap 17 BUN 40 H Creatinine 1.0 Est GFR ( Amer) > 60 Est GFR (Non-Af Amer) 53 POC Glucose (mg/dL) 114 H Random Glucose 115 H Calcium 8.9 Blood Type Antibody Screen BBK History Checked 03/20/18 03/20/18 03/20/18 15:00 15:00 21:18 WBC RBC Hgb Hct MCV MCH MCHC RDW Plt Count MPV Neut % (Auto) Lymph % (Auto) [place] % (Auto) Eos % (Auto) Baso % (Auto) Neut # (Auto) Lymph # (Auto) [place] # (Auto) Eos # (Auto) Baso # (Auto) Neutrophils % (Manual) Lymphocytes % (Manual) Monocytes % (Manual) Platelet Estimate Large Platelets Hypochromasia (manual) Anisocytosis (manual) Ovalocytes ESR PT 13.1 INR 1.2 APTT 31.2 Sodium Potassium Chloride Carbon Dioxide Anion Gap BUN Creatinine Est GFR ( Amer) Est GFR (Non-Af Amer) POC Glucose (mg/dL) 130 H Random Glucose Calcium Blood Type Cancelled Antibody Screen Cancelled BBK History Checked Cancelled 03/21/18 03/21/18 05:48 10:39 WBC RBC Hgb Hct MCV MCH MCHC RDW Plt Count MPV Neut % (Auto) Lymph % (Auto) [place] % (Auto) Eos % (Auto) Baso % (Auto) Neut # (Auto) Lymph # (Auto) [place] # (Auto) Eos # (Auto) Baso # (Auto) Neutrophils % (Manual) Lymphocytes % (Manual) Monocytes % (Manual) Platelet Estimate Large Platelets Hypochromasia (manual) Anisocytosis (manual) Ovalocytes ESR PT INR APTT Sodium Potassium Chloride Carbon Dioxide Anion Gap BUN Creatinine Est GFR ( Amer) Est GFR (Non-Af Amer) POC Glucose (mg/dL) 126 H 173 H Random Glucose Calcium Blood Type Antibody Screen BBK History Checked Assessment & Plan (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
--- NOTE | 2018-03-21 15:39 | RAD ---
Date of service: 03/21/2018 HISTORY: f/u, pre op COMPARISON: 02/06/2018 FINDINGS: LUNGS: Pulmonary vascular congestion/ pulmonary edema. This represents a progressive finding compared to the prior study. PLEURA: No significant pleural effusion identified, no pneumothorax apparent. CARDIOVASCULAR: Cardiomegaly, CHF/pulmonary edema. OSSEOUS STRUCTURES: No significant abnormalities. VISUALIZED UPPER ABDOMEN: Normal. OTHER FINDINGS: Removal of support apparatus since the prior study: PICC line. IMPRESSION: Acute pulmonary edema.
[2018-03-21 17:57] LABS: BASO % 0.2 % (0.0-2.0); EOS % 0.1 % (0.0-4.0); HEMOGLOBIN 8.9 g/dL (12.0-16.0); LYMPH # 0.5 K/uL (1.0-4.3); LYMPH % 4.9 % (20.0-40.0); MEAN CELL VOLUME 78.4 fl (81.0-99.0); MEAN CORPUSCULAR HEMOGLOBIN 23.4 pg (27.0-31.0); MEAN CORPUSCULAR HGB CONC 29.8 g/dL (33.0-37.0); MEAN PLATELET VOLUME 7.3 fl (7.2-11.7); MONO # 0.8 K/uL (0.0-0.8); MONO % 7.2 % (0.0-10.0); NEUT # 9.6 K/uL (1.8-7.0); NEUT % 87.6 % (50.0-75.0); NRBC % 0.4 % (0.0-0.0); RBC 3.82 Mil/uL (3.80-5.20); RED CELL DISTRIBUTION WIDTH 22.8 % (11.5-14.5)
[2018-03-21 18:27] VITALS: BMI 25.0
[2018-03-21] MEDS ORDERED: Heparin 25,000units in D5W 25,000 UNITS/250 ML BAG IV SCH (18:30)
[2018-03-21 19:06] LABS: INR 1.3 (0.9-1.2); PARTIAL THROMBOPLASTIN TIME 30.7 Seconds (25.6-37.1); PROTHROMBIN TIME 14.9 Seconds (9.8-13.1)
[2018-03-21] MEDS ORDERED: [UNRECOGNIZED DRUG - OTHER] TOP SCH (20:38)
[2018-03-22] MEDS ORDERED: Heparin 25,000units in D5W 25,000 UNITS/250 ML BAG IV SCH ×3 (04:15→12:15)
--- NOTE | 2018-03-22 06:35 | CON ---
DATE: 03/21/2018 LOCATION: Room 668. HISTORY OF PRESENT ILLNESS: This is a 77-year-old female with known history of type 2 diabetes and hypertension with significant diffuse vasculopathy and has now been transferred from [facility] for increasing lower extremity painful paresthesias with a nonhealing and foul-smelling lower extremity neuropathic ulcerations and gangrene of her toes as noted thereof and is being referred now for diabetic evaluation and management. PAST MEDICAL HISTORY: As mentioned above, history of type 2 diabetes, currently on glipizide given as 2.5 mg once daily in the morning, history of hyperthyroidism and has been controlled on Tapazole given as 5 mg once daily as ordered, history of hypertension and dyslipidemia, history of coronary artery disease and severe peripheral arterial vasculopathy with a recent percutaneous angioplasty and stent placements done in both lower extremities. She also has nonhealing neuropathic ulcers which now are foul-smelling with associated gangrene of her toes with underlying cellulitis thereof as noted. There is also significant history of diabetic polyneuropathy as noted. FAMILY HISTORY: Positive for hypertension and heart disease. SOCIAL HISTORY: The patient lives alone but currently has been at the [facility] for closer evaluation and management with ongoing IV antibiotic management also as noted. REVIEW OF SYSTEMS: As mentioned above, admits to generalized body weakness with easy fatigability and tiredness and suboptimal energy level. Also admits to bifrontal headaches with episodic dizziness and lightheadedness, worse on the day of admission. No chest pains or palpitations or PND. Her oral intake has been variable with dyspepsia and habitual constipation. Also admits to lower extremity painful paresthesias and nonhealing ulcerations in both lower extremities with supervening gangrene of her toes as noted with underlying cellulitis. PHYSICAL EXAMINATION: GENERAL: This is an average built female, in no apparent distress. VITAL SIGNS: Blood pressure of 140/80, pulse of 70 beats per minute and regular, temperature 98, respirations 20, height is 5 feet 4 inches, weight is 146 pounds. HEENT: Head is normocephalic. Eyes anicteric with pink conjunctivae. Funduscopy is not possible at this time. Ears, nose and throat, otherwise, normal. NECK: Supple. Thyroid gland is normal in size. No carotid bruits or any cervical adenopathy. CARDIOPULMONARY: Some adynamic precordium. S1, S2 rapid and regular. LUNGS: Clear to auscultation. ABDOMEN: Flat, soft with positive bowel sounds. EXTREMITIES: There is bilateral lower extremity erythema, edema, and nonhealing neuropathic ulcerations bilaterally with gangrene of her toes in both lower extremities as noted, thereof. LABORATORY DATA: Her chemistry showed a BUN of 40, sodium 144, potassium 4, chloride 106, CO2 of 25, glucose 115, and creatinine 1. Her glucose levels have ranged from 127 to 173 mg/dL. ASSESSMENT: This a 77-year-old female with uncontrolled type 2 diabetes and hypertension with significant severe peripheral arterial disease and vasculopathy, presenting here with nonhealing neuropathic ulcerations in both lower extremities and associated gangrene of her distal digits in both lower extremities despite a recent percutaneous angioplasty with stent placements undertaken a few weeks ago as noted. She also has diabetic microvascular complications of retinopathy and polyneuropathy with diabetic macrovascular complications of coronary artery disease and significant peripheral arterial disease and vasculopathy as mentioned. PLAN OF MANAGEMENT: As discussed with the staff, we will continue the current glipizide given as 2.5 mg once daily as ordered. We will also continue the Tapazole given as 5 mg once daily in the morning as ordered. We will titrate incrementally as indicated to optimize metabolic control. We will also obtain a hemoglobin A1c to confirm her prior glycemic control and baseline thyroid function studies will be ordered. We will obtain serial chemistries and supplement accordingly as needed. We will concur with the present cardiac and vascular management as noted and ordered. We will titrate and adjust her Tapazole medications as indicated. We will follow. Lucia Corley MD
--- NOTE | 2018-03-22 07:25 | CP.PCM.PN ---
Subjective - Date & Time of Evaluation Date of Evaluation: 03/22/18 Time of Evaluation: 07:24 - Subjective Subjective: General Surgery Dr. Woods Pt S&E @bedside. NAEO. pt has no complaints. pain improved. denies F/C, N/V. tolerating diet. Objective - Vital Signs/Intake and Output Vital Signs (last 24 hours): Temp Pulse Resp BP Pulse Ox 97.7 F 81 19 111/68 99 03/22/18 00:06 03/22/18 00:06 03/22/18 00:06 03/22/18 00:06 03/22/18 00:06 - Medications Medications: Current Medications Acetaminophen (Tylenol 325mg Tab) 650 mg PO Q4 PRN PRN Reason: Pain, Mild (1-3) Aspirin (Aspirin) 325 mg PO DAILY [facility] Last Admin: 03/21/18 18:42 Dose: 325 mg Bisacodyl (Dulcolax) 10 mg AL DAILY PRN PRN Reason: Constipation Clopidogrel Bisulfate (Plavix) 75 mg PO DAILY [facility] Last Admin: 03/21/18 18:42 Dose: 75 mg Dimethicone (Proshield Plus Skin Protectant) [facility] Docusate Sodium (Colace) 100 mg PO DAILY [facility] Last Admin: 03/21/18 08:53 Dose: 100 mg Escitalopram Oxalate (Lexapro) 5 mg PO HS [facility] Last Admin: 03/21/18 21:33 Dose: 5 mg Famotidine (Pepcid) 20 mg PO DAILY [facility] Last Admin: 03/21/18 08:52 Dose: 20 mg Ferrous Sulfate (Feosol) 325 mg PO DAILY [facility] Last Admin: 03/21/18 08:53 Dose: 325 mg Furosemide (Lasix) 20 mg PO DAILY [facility] Last Admin: 03/21/18 08:53 Dose: 20 mg Glipizide (Glucotrol Xl) 2.5 mg PO DAILY [facility] Last Admin: 03/21/18 08:53 Dose: 2.5 mg Amikacin Sulfate 300 mg/ (Sodium Chloride) 251.2 mls @ 250 mls/hr IVPB Q24H [facility] PRN Reason: Protocol Last Admin: 03/21/18 12:09 Dose: 250 mls/hr Piperacillin Sod/Tazobactam (Sod 2.25 gm/ Sodium Chloride) 100 mls @ 100 mls/ hr IVPB Q8 [facility] PRN Reason: Protocol Last Admin: 03/22/18 01:30 Dose: 100 mls/hr Heparin Sodium/Dextrose (Heparin 25,000 Units/250ml In D5w) 25,000 units in 250 mls @ 13 mls/hr IV .[id number] [facility] PRN Reason: Protocol Last Admin: 03/21/18 20:20 Dose: 13 mls/hr Heparin Sodium/Dextrose (Heparin 25,000 Units/250ml In D5w) 25,000 units in 250 mls @ 11 mls/hr IV .[id number] [facility] PRN Reason: Protocol Last Admin: 03/22/18 04:00 Dose: 11 mls/hr Isosorbide Mononitrate (Imdur Er) 30 mg PO DAILY [facility] Last Admin: 03/21/18 08:53 Dose: 30 mg Magnesium Hydroxide (Milk Of Magnesia) 30 ml PO HS PRN PRN Reason: Constipation Memantine (Namenda) 5 mg PO BID [facility] Last Admin: 03/21/18 18:42 Dose: 5 mg Methimazole (Tapazole) 5 mg PO DAILY [facility] Last Admin: 03/21/18 08:54 Dose: 5 mg Metoprolol Tartrate (Lopressor) 25 mg PO Q12 [facility] Last Admin: 03/21/18 21:32 Dose: 25 mg Multivitamins/Minerals (Therapeutic-M Tab) 1 tab PO DAILY [facility] Last Admin: 03/21/18 08:54 Dose: 1 tab Oxycodone/Acetaminophen (Percocet 5/325 Mg Tab) 1 tab PO Q4 PRN PRN Reason: Pain, moderate (4-7) Stop: 03/23/18 20:39 Silver Sulfadiazine (Silvadene 1% 50 Gm) 1 applic TOP BID [facility] Last Admin: 03/21/18 16:48 Dose: 1 applic Sodium Hypochlorite (Dakins Solution 0.125%) 1 appl TOP QD7 [facility] Last Admin: 03/21/18 08:15 Dose: 1 appl Tramadol HCl (Ultram) 50 mg PO Q6 PRN PRN Reason: Pain, moderate (4-7) - Labs Labs: 03/21/18 17:45 03/20/18 13:45 PT 14.9 Seconds (9.8-13.1) H 03/21/18 18:35 INR 1.3 (0.9-1.2) H 03/21/18 18:35 APTT 185.3 Seconds (25.6-37.1) H* D 03/22/18 03:08 - Constitutional Appears: Non-toxic, No Acute Distress - Head Exam Head Exam: NORMAL INSPECTION - Eye Exam Eye Exam: Normal appearance - ENT Exam ENT Exam: Mucous Membranes Moist - Respiratory Exam Respiratory Exam: NORMAL BREATHING PATTERN. absent: Accessory Muscle Use, Respiratory Distress - Cardiovascular Exam Cardiovascular Exam: REGULAR RHYTHM. absent: Bradycardia, Tachycardia - GI/Abdominal Exam GI & Abdominal Exam: Soft. absent: Distended - Extremities Exam Additional comments: B/L LE dressings stained w/ serous drainage L foot w/ ischemic toes, minimal motion in toes. Pt refused full exam of B/L LE. - Neurological Exam Neurological Exam: Alert, Awake - Psychiatric Exam Psychiatric exam: Normal Affect, Normal Mood - Skin Skin Exam: Dry, Intact, Normal Color, Warm Assessment and Plan - Assessment and Plan (Free Text) Assessment: 77 y/o F w/ non-healing necrotic B/L LE wounds 2/2 PVD - cont pain management - cont IV Abx - daily dressing changes by podiatry/wound care - Dr. Damon planning angio on Saturday (03/24) - f/u recs/results - cont Medical management - will likely need AKA if pt agreeable Pt discussed w/ Dr. Chuck Hairston DO PGY3
[2018-03-22 07:34] LABS: ALB/GLOB RATIO 0.9 (1.0-2.1); ALBUMIN 3.3 g/dL (3.5-5.0)
[2018-03-22 07:45] LABS: T4 5.71 ug/dl (5.5-11.0)
[2018-03-22 08:04] LABS: HEMOGLOBIN 9.4 g/dL (12.0-16.0); MEAN CELL VOLUME 78.7 fl (81.0-99.0); MEAN CORPUSCULAR HEMOGLOBIN 23.3 pg (27.0-31.0); MEAN CORPUSCULAR HGB CONC 29.6 g/dL (33.0-37.0); RBC 4.02 Mil/uL (3.80-5.20); RED CELL DISTRIBUTION WIDTH 23.3 % (11.5-14.5); WHITE BLOOD COUNT 14.7 K/uL (4.8-10.8)
[2018-03-22] MEDS: Multivitamin With Minerals Tab PO SCH (10:03)
[2018-03-22] MEDS: GlipiZIDE 2.5 mg SR Tab PO SCH (10:06)
[2018-03-22] MEDS: methIMAzole 5 MG TAB PO SCH (10:08)
[2018-03-22] MEDS: Silver Sulfadiazine 1% CREAM (50 gm) TOP SCH ×2 (10:08→16:15)
[2018-03-22] MEDS: Proshield Plus GEL TOP SCH (10:08)
[2018-03-22 11:23] LABS: INR 1.3 (0.9-1.2); PARTIAL THROMBOPLASTIN TIME 86.2 Seconds (25.6-37.1); PROTHROMBIN TIME 14.7 Seconds (9.8-13.1)
--- NOTE | 2018-03-22 11:28 | CP.PCM.CON ---
History of Present Illness - History of Present Illness History of Present Illness: consult requested for depression and anxiety 77 y.o female with PMH of DM, CAD, CHF, chronic anemia, PVD and lower extremity ulcerations with cellulites, psychiatric history of dementia, depression and anxiety,pt currently residing in a group home, on evaluation she is oriented to person only, continues to feel she is in the group home pt reported feeling down because of the pain she is going through and also because she knows she might loose her legs, stated she feels lonely and uncomfortable as she could not be home, reported decreased sleep because of the pain , no changes in appetite episodes of anxiety because of her medical condition 'denied perceptual disturbances, non elicited , denied suicidal or homicidal ideation Past Patient History - Infectious Disease Hx of Infectious Diseases: None - Past Medical History & Family History Past Medical History?: Yes - Past Social History Smoking Status: Former Smoker - CARDIAC Hx Congestive Heart Failure: Yes Hx Hypercholesterolemia: Yes Hx Hypertension: Yes Hx Peripheral Edema: Yes - PULMONARY Hx Bronchitis: Yes Hx Chronic Obstructive Pulmonary Disease (COPD): Yes Hx Pneumonia: Yes - NEUROLOGICAL Other/Comment: Paresthesias of both feet - HEENT Hx HEENT Problems: No - RENAL Hx Chronic Kidney Disease: Yes - ENDOCRINE/METABOLIC Hx Hyperthyroidism: Yes - HEMATOLOGICAL/ONCOLOGICAL Hx AIDS: No Hx Anemia: Yes Hx Human Immunodeficiency Virus (HIV): No - INTEGUMENTARY Hx Dermatological Problems: Yes Hx Cellulitis: Yes - MUSCULOSKELETAL/RHEUMATOLOGICAL Hx Musculoskeletal Disorders: Yes Hx Falls: Yes - GASTROINTESTINAL Hx Gastrointestinal Disorders: No - GENITOURINARY/GYNECOLOGICAL Hx Genitourinary Disorders: No - PSYCHIATRIC Hx Psychophysiologic Disorder: Yes Hx Anxiety: Yes Hx Substance Use: No - SURGICAL HISTORY Hx Appendectomy: Yes Other/Comment: kidney stone removal - ANESTHESIA Hx Anesthesia: Yes Hx Anesthesia Reactions: No Hx Malignant Hyperthermia: No Meds Allergies/Adverse Reactions: Allergies Allergy/AdvReac Type Severity Reaction Status Date / Time No Known Allergies Allergy Verified 03/20/18 12:54 - Medications Medications: Current Medications Acetaminophen (Tylenol 325mg Tab) 650 mg PO Q4 PRN PRN Reason: Pain, Mild (1-3) Aspirin (Aspirin) 325 mg PO DAILY [facility] Last Admin: 03/22/18 10:12 Dose: 325 mg Bisacodyl (Dulcolax) [address] DAILY PRN PRN Reason: Constipation Clopidogrel Bisulfate (Plavix) 75 mg PO DAILY [facility] Last Admin: 03/22/18 10:05 Dose: 75 mg Dimethicone (Proshield Plus Skin Protectant) 1 applic TOP QSHIFT [facility] Last Admin: 03/22/18 10:08 Dose: 1 applic Docusate Sodium (Colace) 100 mg PO DAILY [facility] Last Admin: 03/22/18 10:06 Dose: 100 mg Escitalopram Oxalate (Lexapro) 5 mg PO HS [facility] Last Admin: 03/21/18 21:33 Dose: 5 mg Famotidine (Pepcid) 20 mg PO DAILY [facility] Last Admin: 03/22/18 10:07 Dose: 20 mg Ferrous Sulfate (Feosol) 325 mg PO DAILY [facility] Last Admin: 03/22/18 10:03 Dose: 325 mg Furosemide (Lasix) 20 mg PO DAILY [facility] Last Admin: 03/22/18 10:05 Dose: 20 mg Glipizide (Glucotrol Xl) 2.5 mg PO DAILY [facility] Last Admin: 03/22/18 10:06 Dose: 2.5 mg Amikacin Sulfate 300 mg/ (Sodium Chloride) 251.2 mls @ 250 mls/hr IVPB Q24H [facility] PRN Reason: Protocol Last Admin: 03/21/18 12:09 Dose: 250 mls/hr Piperacillin Sod/Tazobactam (Sod 2.25 gm/ Sodium Chloride) 100 mls @ 100 mls/ hr IVPB Q8 [facility] PRN Reason: Protocol Last Admin: 03/22/18 10:09 Dose: 100 mls/hr Heparin Sodium/Dextrose (Heparin 25,000 Units/250ml In D5w) 25,000 units in 250 mls @ 13 mls/hr IV .[id number] [facility] PRN Reason: Protocol Last Admin: 03/21/18 20:20 Dose: 13 mls/hr Heparin Sodium/Dextrose (Heparin 25,000 Units/250ml In D5w) 25,000 units in 250 mls @ 11 mls/hr IV .[id number] [facility] PRN Reason: Protocol Last Admin: 03/22/18 04:00 Dose: 11 mls/hr Isosorbide Mononitrate (Imdur Er) 30 mg PO DAILY [facility] Last Admin: 03/22/18 10:06 Dose: 30 mg Magnesium Hydroxide (Milk Of Magnesia) 30 ml PO HS PRN PRN Reason: Constipation Memantine (Namenda) 5 mg PO BID [facility] Last Admin: 03/22/18 10:08 Dose: 5 mg Methimazole (Tapazole) 5 mg PO DAILY [facility] Last Admin: 03/22/18 10:08 Dose: 5 mg Metoprolol Tartrate (Lopressor) 25 mg PO Q12 [facility] Last Admin: 03/22/18 10:06 Dose: 25 mg Multivitamins/Minerals (Therapeutic-M Tab) 1 tab PO DAILY [facility] Last Admin: 03/22/18 10:03 Dose: 1 tab Oxycodone/Acetaminophen (Percocet 5/325 Mg Tab) 1 tab PO Q4 PRN PRN Reason: Pain, moderate (4-7) Stop: 03/23/18 20:39 Silver Sulfadiazine (Silvadene 1% 50 Gm) 1 applic TOP BID [facility] Last Admin: 03/22/18 10:08 Dose: 1 applic Sodium Hypochlorite (Dakins Solution 0.125%) 1 appl TOP QD7 [facility] Last Admin: 03/22/18 10:15 Dose: 1 appl Tramadol HCl (Ultram) 50 mg PO Q6 PRN PRN Reason: Pain, moderate (4-7) Physical Exam - Psychiatric Exam Additional comments: patient seen in bed, unkempt, speech soft,but productive mood anxious affect constricted, thought form circumstantial, denied any current suicidal or homicidal ideation denied perceptual disturbances, alert awake oriented to person only Results - Vital Signs Recent Vital Signs: Last Vital Signs Temp 97.6 F 03/22/18 08:09 Pulse 84 03/22/18 10:06 Resp 20 03/22/18 08:09 BP 114/61 03/22/18 10:06 Pulse Ox 96 03/22/18 08:09 - Labs Result Diagrams: 03/22/18 05:20 03/22/18 05:20 Labs: Laboratory Results - last 24 hr 03/21/18 03/21/18 03/21/18 16:14 17:40 17:45 WBC 11.0 H RBC 3.82 Hgb 8.9 L Hct 29.9 L MCV 78.4 L MCH 23.4 L MCHC 29.8 L RDW 22.8 H Plt Count 464 H MPV 7.3 Neut % (Auto) 87.6 H Lymph % (Auto) 4.9 L [place] % (Auto) 7.2 Eos % (Auto) 0.1 Baso % (Auto) 0.2 Neut # (Auto) 9.6 H Lymph # (Auto) 0.5 L [place] # (Auto) 0.8 Eos # (Auto) 0.0 Baso # (Auto) 0.0 PT INR APTT Sodium Potassium Chloride Carbon Dioxide Anion Gap BUN Creatinine Est GFR ( Amer) Est GFR (Non-Af Amer) POC Glucose (mg/dL) 127 H Random Glucose Calcium Total Bilirubin AST ALT Alkaline Phosphatase Total Protein Albumin Globulin Albumin/Globulin Ratio Free T4 Thyroxine (T4) TSH 3rd Generation Blood Type A POSITIVE Antibody Screen Negative Crossmatch See Detail BBK History Checked Patient has bt 03/21/18 03/21/18 03/22/18 18:35 21:42 02:18 WBC RBC Hgb Hct MCV MCH MCHC RDW Plt Count MPV Neut % (Auto) Lymph % (Auto) [place] % (Auto) Eos % (Auto) Baso % (Auto) Neut # (Auto) Lymph # (Auto) [place] # (Auto) Eos # (Auto) Baso # (Auto) PT 14.9 H INR 1.3 H APTT 30.7 197.0 H* D Sodium Potassium Chloride Carbon Dioxide Anion Gap BUN Creatinine Est GFR ( Amer) Est GFR (Non-Af Amer) POC Glucose (mg/dL) 126 H Random Glucose Calcium Total Bilirubin AST ALT Alkaline Phosphatase Total Protein Albumin Globulin Albumin/Globulin Ratio Free T4 Thyroxine (T4) TSH 3rd Generation Blood Type Antibody Screen Crossmatch BBK History Checked 03/22/18 03/22/18 03/22/18 03:08 05:20 05:20 WBC 14.7 H RBC 4.02 Hgb 9.4 L Hct 31.6 L MCV 78.7 L MCH 23.3 L MCHC 29.6 L RDW 23.3 H Plt Count 504 H MPV Neut % (Auto) Lymph % (Auto) [place] % (Auto) Eos % (Auto) Baso % (Auto) Neut # (Auto) Lymph # (Auto) [place] # (Auto) Eos # (Auto) Baso # (Auto) PT INR APTT 185.3 H* D Sodium 141 Potassium 4.2 Chloride 105 Carbon Dioxide 19 L Anion Gap 21 H BUN 46 H Creatinine 1.4 H Est GFR ( Amer) 44 Est GFR (Non-Af Amer) 36 POC Glucose (mg/dL) Random Glucose 111 H Calcium 9.0 Total Bilirubin 1.6 H AST 13 L ALT 22 Alkaline Phosphatase 127 H Total Protein 6.9 Albumin 3.3 L D Globulin 3.6 Albumin/Globulin Ratio 0.9 L Free T4 Thyroxine (T4) 5.71 TSH 3rd Generation 5.18 H Blood Type Antibody Screen Crossmatch BBK History Checked 03/22/18 03/22/18 05:20 05:56 WBC RBC Hgb Hct MCV MCH MCHC RDW Plt Count MPV Neut % (Auto) Lymph % (Auto) [place] % (Auto) Eos % (Auto) Baso % (Auto) Neut # (Auto) Lymph # (Auto) [place] # (Auto) Eos # (Auto) Baso # (Auto) PT INR APTT Sodium Potassium Chloride Carbon Dioxide Anion Gap BUN Creatinine Est GFR ( Amer) Est GFR (Non-Af Amer) POC Glucose (mg/dL) 103 Random Glucose Calcium Total Bilirubin AST ALT Alkaline Phosphatase Total Protein Albumin Globulin Albumin/Globulin Ratio Free T4 1.38 Thyroxine (T4) TSH 3rd Generation Blood Type Antibody Screen Crossmatch BBK History Checked Assessment & Plan - Assessment and Plan (Free Text) Assessment: 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
[2018-03-22] MEDS: Oxycodone/Acetaminophen 5/325 mg Tab PO PRN (11:48)
--- NOTE | 2018-03-22 13:33 | CP.PCM.CON ---
Past Patient History - Infectious Disease Hx of Infectious Diseases: None - Past Medical History & Family History Past Medical History?: Yes - Past Social History Smoking Status: Former Smoker - CARDIAC Hx Congestive Heart Failure: Yes Hx Hypercholesterolemia: Yes Hx Hypertension: Yes Hx Peripheral Edema: Yes - PULMONARY Hx Bronchitis: Yes Hx Chronic Obstructive Pulmonary Disease (COPD): Yes Hx Pneumonia: Yes - NEUROLOGICAL Other/Comment: Paresthesias of both feet - HEENT Hx HEENT Problems: No - RENAL Hx Chronic Kidney Disease: Yes - ENDOCRINE/METABOLIC Hx Hyperthyroidism: Yes - HEMATOLOGICAL/ONCOLOGICAL Hx AIDS: No Hx Anemia: Yes Hx Human Immunodeficiency Virus (HIV): No - INTEGUMENTARY Hx Dermatological Problems: Yes Hx Cellulitis: Yes - MUSCULOSKELETAL/RHEUMATOLOGICAL Hx Musculoskeletal Disorders: Yes Hx Falls: Yes - GASTROINTESTINAL Hx Gastrointestinal Disorders: No - GENITOURINARY/GYNECOLOGICAL Hx Genitourinary Disorders: No - PSYCHIATRIC Hx Psychophysiologic Disorder: Yes Hx Anxiety: Yes Hx Substance Use: No - SURGICAL HISTORY Hx Appendectomy: Yes Other/Comment: kidney stone removal - ANESTHESIA Hx Anesthesia: Yes Hx Anesthesia Reactions: No Hx Malignant Hyperthermia: No Meds Allergies/Adverse Reactions: Allergies Allergy/AdvReac Type Severity Reaction Status Date / Time No Known Allergies Allergy Verified 03/20/18 12:54 - Medications Medications: Current Medications Acetaminophen (Tylenol 325mg Tab) 650 mg PO Q4 PRN PRN Reason: Pain, Mild (1-3) Aspirin (Aspirin) 325 mg PO DAILY [facility] Last Admin: 03/22/18 10:12 Dose: 325 mg Bisacodyl (Dulcolax) 10 mg [place] DAILY PRN PRN Reason: Constipation Clopidogrel Bisulfate (Plavix) 75 mg PO DAILY [facility] Last Admin: 03/22/18 10:05 Dose: 75 mg Dimethicone (Proshield Plus Skin Protectant) 1 applic TOP QSHIFT [facility] Last Admin: 03/22/18 10:08 Dose: 1 applic Docusate Sodium (Colace) 100 mg PO DAILY [facility] Last Admin: 03/22/18 10:06 Dose: 100 mg Escitalopram Oxalate (Lexapro) 5 mg PO [facility] Last Admin: 03/21/18 21:33 Dose: 5 mg Famotidine (Pepcid) 20 mg PO DAILY [facility] Last Admin: 03/22/18 10:07 Dose: 20 mg Ferrous Sulfate (Feosol) 325 mg PO DAILY [facility] Last Admin: 03/22/18 10:03 Dose: 325 mg Furosemide (Lasix) 20 mg PO DAILY [facility] Last Admin: 03/22/18 10:05 Dose: 20 mg Glipizide (Glucotrol Xl) 2.5 mg PO DAILY [facility] Last Admin: 03/22/18 10:06 Dose: 2.5 mg Piperacillin Sod/Tazobactam (Sod 2.25 gm/ Sodium Chloride) 100 mls @ 100 mls/ hr IVPB Q8 [facility] PRN Reason: Protocol Last Admin: 03/22/18 10:09 Dose: 100 mls/hr Heparin Sodium/Dextrose (Heparin 25,000 Units/250ml In D5w) 25,000 units in 250 mls @ 9.5 mls/hr IV .Q24H [facility] PRN Reason: Protocol Amikacin Sulfate 300 mg/ (Sodium Chloride) 101.2 mls @ 100.724 mls/hr IVPB DAILY@1200 [facility] PRN Reason: Protocol Isosorbide Mononitrate (Imdur Er) 30 mg PO DAILY [facility] Last Admin: 03/22/18 10:06 Dose: 30 mg Magnesium Hydroxide (Milk Of Magnesia) 30 ml PO HS PRN PRN Reason: Constipation Memantine (Namenda) 5 mg PO BID [facility] Last Admin: 03/22/18 10:08 Dose: 5 mg Methimazole (Tapazole) 5 mg PO DAILY [facility] Last Admin: 03/22/18 10:08 Dose: 5 mg Metoprolol Tartrate (Lopressor) 25 mg PO Q12 [facility] Last Admin: 03/22/18 10:06 Dose: 25 mg Multivitamins/Minerals (Therapeutic-M Tab) 1 tab PO DAILY [facility] Last Admin: 03/22/18 10:03 Dose: 1 tab Oxycodone/Acetaminophen (Percocet 5/325 Mg Tab) 1 tab PO Q4 PRN PRN Reason: Pain, moderate (4-7) Stop: 03/23/18 20:39 Last Admin: 03/22/18 11:48 Dose: 1 tab Silver Sulfadiazine (Silvadene 1% 50 Gm) 1 applic TOP BID [facility] Last Admin: 03/22/18 10:08 Dose: 1 applic Sodium Hypochlorite (Dakins Solution 0.125%) 1 appl TOP QD7 [facility] Last Admin: 03/22/18 10:15 Dose: 1 appl Tramadol HCl (Ultram) 50 mg PO Q6 PRN PRN Reason: Pain, moderate (4-7) Results - Vital Signs Recent Vital Signs: Last Vital Signs Temp 97.6 F 03/22/18 08:09 Pulse 84 03/22/18 10:06 Resp 20 03/22/18 08:09 BP 114/61 03/22/18 10:06 Pulse Ox 96 03/22/18 08:09 - Labs Result Diagrams: 03/22/18 05:20 03/22/18 05:20 Labs: Laboratory Results - last 24 hr 03/21/18 03/21/18 03/21/18 16:14 17:40 17:45 WBC 11.0 H RBC 3.82 Hgb 8.9 L Hct 29.9 L MCV 78.4 L MCH 23.4 L MCHC 29.8 L RDW 22.8 H Plt Count 464 H MPV 7.3 Neut % (Auto) 87.6 H Lymph % (Auto) 4.9 L [place] % (Auto) 7.2 Eos % (Auto) 0.1 Baso % (Auto) 0.2 Neut # (Auto) 9.6 H Lymph # (Auto) 0.5 L [place] # (Auto) 0.8 Eos # (Auto) 0.0 Baso # (Auto) 0.0 PT INR APTT Sodium Potassium Chloride Carbon Dioxide Anion Gap BUN Creatinine Est GFR ( Amer) Est GFR (Non-Af Amer) POC Glucose (mg/dL) 127 H Random Glucose Calcium Total Bilirubin AST ALT Alkaline Phosphatase Total Protein Albumin Globulin Albumin/Globulin Ratio Free T4 Thyroxine (T4) TSH 3rd Generation Blood Type A POSITIVE Antibody Screen Negative Crossmatch See Detail BBK History Checked Patient has bt 03/21/18 03/21/18 03/22/18 18:35 21:42 02:18 WBC RBC Hgb Hct MCV MCH MCHC RDW Plt Count MPV Neut % (Auto) Lymph % (Auto) [place] % (Auto) Eos % (Auto) Baso % (Auto) Neut # (Auto) Lymph # (Auto) [place] # (Auto) Eos # (Auto) Baso # (Auto) PT 14.9 H INR 1.3 H APTT 30.7 197.0 H* D Sodium Potassium Chloride Carbon Dioxide Anion Gap BUN Creatinine Est GFR ( Amer) Est GFR (Non-Af Amer) POC Glucose (mg/dL) 126 H Random Glucose Calcium Total Bilirubin AST ALT Alkaline Phosphatase Total Protein Albumin Globulin Albumin/Globulin Ratio Free T4 Thyroxine (T4) TSH 3rd Generation Blood Type Antibody Screen Crossmatch BBK History Checked 03/22/18 03/22/18 03/22/18 03:08 05:20 05:20 WBC 14.7 H RBC 4.02 Hgb 9.4 L Hct 31.6 L MCV 78.7 L MCH 23.3 L MCHC 29.6 L RDW 23.3 H Plt Count 504 H MPV Neut % (Auto) Lymph % (Auto) [place] % (Auto) Eos % (Auto) Baso % (Auto) Neut # (Auto) Lymph # (Auto) [place] # (Auto) Eos # (Auto) Baso # (Auto) PT INR APTT 185.3 H* D Sodium 141 Potassium 4.2 Chloride 105 Carbon Dioxide 19 L Anion Gap 21 H BUN 46 H Creatinine 1.4 H Est GFR ( Amer) 44 Est GFR (Non-Af Amer) 36 POC Glucose (mg/dL) Random Glucose 111 H Calcium 9.0 Total Bilirubin 1.6 H AST 13 L ALT 22 Alkaline Phosphatase 127 H Total Protein 6.9 Albumin 3.3 L D Globulin 3.6 Albumin/Globulin Ratio 0.9 L Free T4 Thyroxine (T4) 5.71 TSH 3rd Generation 5.18 H Blood Type Antibody Screen Crossmatch BBK History Checked 03/22/18 03/22/18 03/22/18 05:20 05:56 10:31 WBC RBC Hgb Hct MCV MCH MCHC RDW Plt Count MPV Neut % (Auto) Lymph % (Auto) [place] % (Auto) Eos % (Auto) Baso % (Auto) Neut # (Auto) Lymph # (Auto) [place] # (Auto) Eos # (Auto) Baso # (Auto) PT 14.7 H INR 1.3 H APTT 86.2 H D Sodium Potassium Chloride Carbon Dioxide Anion Gap BUN Creatinine Est GFR ( Amer) Est GFR (Non-Af Amer) POC Glucose (mg/dL) 103 Random Glucose Calcium Total Bilirubin AST ALT Alkaline Phosphatase Total Protein Albumin Globulin Albumin/Globulin Ratio Free T4 1.38 Thyroxine (T4) TSH 3rd Generation Blood Type Antibody Screen Crossmatch BBK History Checked 03/22/18 11:19 WBC RBC Hgb Hct MCV MCH MCHC RDW Plt Count MPV Neut % (Auto) Lymph % (Auto) [place] % (Auto) Eos % (Auto) Baso % (Auto) Neut # (Auto) Lymph # (Auto) [place] # (Auto) Eos # (Auto) Baso # (Auto) PT INR APTT Sodium Potassium Chloride Carbon Dioxide Anion Gap BUN Creatinine Est GFR ( Amer) Est GFR (Non-Af Amer) POC Glucose (mg/dL) 158 H Random Glucose Calcium Total Bilirubin AST ALT Alkaline Phosphatase Total Protein Albumin Globulin Albumin/Globulin Ratio Free T4 Thyroxine (T4) TSH 3rd Generation Blood Type Antibody Screen Crossmatch BBK History Checked Assessment & Plan (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 - Date & Time Date: 03/22/18 Time: 13:32
--- NOTE | 2018-03-22 14:11 | CP.PCM.PN ---
Subjective - Date & Time of Evaluation Date of Evaluation: 03/22/18 Time of Evaluation: 14:09 - Subjective Subjective: Podiatry Consult Note for attending Dr. Briseno 77 y/o female patient seen and evaluated in the bedside for bilateral lower extremity ulcerations with swelling and cellulites.Patient states her dressings were changed today and she would not like to have them changed again. Patient was sitting in her bed with legs hanging over the side. Patient was able to communicate today and patient denied any overnight nausea, fever, shortness of breath, or chest pain Objective - Vital Signs/Intake and Output Vital Signs (last 24 hours): Temp Pulse Resp BP Pulse Ox 97.6 F 84 20 114/61 96 03/22/18 08:09 03/22/18 10:06 03/22/18 08:09 03/22/18 10:06 03/22/18 08:09 - Medications Medications: Current Medications Acetaminophen (Tylenol 325mg Tab) 650 mg PO Q4 PRN PRN Reason: Pain, Mild (1-3) Aspirin (Aspirin) 325 mg PO DAILY [facility] Last Admin: 03/22/18 10:12 Dose: 325 mg Bisacodyl (Dulcolax) 10 mg [place] DAILY PRN PRN Reason: Constipation Clopidogrel Bisulfate (Plavix) 75 mg PO DAILY [facility] Last Admin: 03/22/18 10:05 Dose: 75 mg Dimethicone (Proshield Plus Skin Protectant) 1 applic TOP QSHIFT [facility] Last Admin: 03/22/18 10:08 Dose: 1 applic Docusate Sodium (Colace) 100 mg PO DAILY [facility] Last Admin: 03/22/18 10:06 Dose: 100 mg Escitalopram Oxalate (Lexapro) 5 mg PO HS [facility] Last Admin: 03/21/18 21:33 Dose: 5 mg Famotidine (Pepcid) 20 mg PO DAILY [facility] Last Admin: 03/22/18 10:07 Dose: 20 mg Ferrous Sulfate (Feosol) 325 mg PO DAILY [facility] Last Admin: 03/22/18 10:03 Dose: 325 mg Furosemide (Lasix) 20 mg PO DAILY [facility] Last Admin: 03/22/18 10:05 Dose: 20 mg Glipizide (Glucotrol Xl) 2.5 mg PO DAILY [facility] Last Admin: 03/22/18 10:06 Dose: 2.5 mg Piperacillin Sod/Tazobactam (Sod 2.25 gm/ Sodium Chloride) 100 mls @ 100 mls/ hr IVPB Q8 [facility] PRN Reason: Protocol Last Admin: 03/22/18 10:09 Dose: 100 mls/hr Heparin Sodium/Dextrose (Heparin 25,000 Units/250ml In D5w) 25,000 units in 250 mls @ 9.5 mls/hr IV .Q24H [facility] PRN Reason: Protocol Amikacin Sulfate 300 mg/ (Sodium Chloride) 101.2 mls @ 100.724 mls/hr IVPB DAILY@1200 [facility] PRN Reason: Protocol Isosorbide Mononitrate (Imdur Er) 30 mg PO DAILY [facility] Last Admin: 03/22/18 10:06 Dose: 30 mg Magnesium Hydroxide (Milk Of Magnesia) 30 ml PO HS PRN PRN Reason: Constipation Memantine (Namenda) 5 mg PO BID [facility] Last Admin: 03/22/18 10:08 Dose: 5 mg Methimazole (Tapazole) 5 mg PO DAILY [facility] Last Admin: 03/22/18 10:08 Dose: 5 mg Metoprolol Tartrate (Lopressor) 25 mg PO Q12 [facility] Last Admin: 03/22/18 10:06 Dose: 25 mg Multivitamins/Minerals (Therapeutic-M Tab) 1 tab PO DAILY [facility] Last Admin: 03/22/18 10:03 Dose: 1 tab Oxycodone/Acetaminophen (Percocet 5/325 Mg Tab) 1 tab PO Q4 PRN PRN Reason: Pain, moderate (4-7) Stop: 03/23/18 20:39 Last Admin: 03/22/18 11:48 Dose: 1 tab Silver Sulfadiazine (Silvadene 1% 50 Gm) 1 applic TOP BID [facility] Last Admin: 03/22/18 10:08 Dose: 1 applic Sodium Hypochlorite (Dakins Solution 0.125%) 1 appl TOP QD7 [facility] Last Admin: 03/22/18 10:15 Dose: 1 appl Tramadol HCl (Ultram) 50 mg PO Q6 PRN PRN Reason: Pain, moderate (4-7) - Labs Labs: 03/22/18 05:20 03/22/18 05:20 PT 14.7 Seconds (9.8-13.1) H 03/22/18 10:31 INR 1.3 (0.9-1.2) H 03/22/18 10:31 APTT 86.2 Seconds (25.6-37.1) H D 03/22/18 10:31 - Constitutional Appears: Well, Non-toxic, No Acute Distress - Head Exam Head Exam: ATRAUMATIC, NORMOCEPHALIC - Extremities Exam Additional comments: Patient dressings were intact and clean - Neurological Exam Neurological Exam: Alert, Awake, Oriented x3 - Psychiatric Exam Psychiatric exam: Normal Affect, Normal Mood Assessment and Plan - Assessment and Plan (Free Text) Assessment: 77 y/o F patient seen and evaluated at bedside for multiple b/l LE necrotic ulcerations and gangrenous right 2nd, 3rd and 4th toes Plan: Patient seen and evaluated in the bedside Plan discussed in details with attending Dr. Briseno Patient chart, labs and vitals reviewed; afebrile, No leukocytosis. Arterial duplex LE didn't reveal any stenotic changes proximally. X-ray foot b/l: No signs of acute osseous changes b/l. Proximal tib-fibula X-ray: multiple deep ulcers, no evidence of osteomyelitis. Continue IV Antibiotics B/L wound culture 03/20/18: Gram Negative Terry Prelim Dr. Damon to plan Peripheral Angio on Saturday03/24/18 Wound dressed by nursing, appreciated dressing change; Patient refused a second dressing change and will be seen 03/23/18 Podiatry will continue to follow up the patient in house.
--- NOTE | 2018-03-22 15:38 | PN ---
DATE: 03/22/2018 ENDO FOLLOWUP LOCATION: Room 668. SUBJECTIVE: This is a 77-year-old female transferred from the [facility] with severe gangrene of her toes in both lower extremities with nonhealing neuropathic ulcerations and is now being followed closely for metabolic management. She underwent a recent angioplasty with stent placement in both iliac arteries as noted. Her glycemic levels are improved, although her oral intake is quite variable at this time. LABORATORY DATA: The glucose values have ranged from 103 to 126 mg/dL. Her latest chemistries showed a BUN of 46, sodium 141, potassium 4.2, chloride 105, CO2 19, glucose 111, and creatinine 1.4. Her thyroid studies showed a T4 of 5.71 with a free T4 of 1.38 and a TSH of 5.18. 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 She also has type 2 diabetes with near optimal metabolic control on just a low dose oral hypoglycemic therapy as given. She has diabetic microvascular complications of retinopathy, polyneuropathy, and nephropathy with diabetic macrovascular complications of coronary artery disease and severe peripheral arterial disease and vasculopathy, now with gangrene of both of the toes of her lower extremities with nonhealing neuropathic ulcerations. PLAN OF MANAGEMENT: We will discontinue her Tapazole medications for now to allow for dose equilibration and repeat serial thyroid studies and titrate her dose regimen accordingly. We will continue the plan of management. We will continue the glipizide given as 2.5 mg once daily in the morning as ordered. We will obtain serial chemistries and supplement accordingly as needed. We will also compare with the present cardiac and vascular management as given, and we are awaiting the surgical management also regarding the gangrene in the lower extremities. We will follow. Lucia Corley MD
--- NOTE | 2018-03-22 16:44 | CARD ---
APPROVED REPORT Date of service: 03/21/2018 EKG Measurement Heart [id number] <Conclusion> Normal sinus rhythm Nonspecific ST and T wave abnormality Prolonged QT Abnormal ECG
[2018-03-22 20:40] LABS: INR 1.4 (0.9-1.2); PARTIAL THROMBOPLASTIN TIME 65.3 Seconds (25.6-37.1); PROTHROMBIN TIME 15.2 Seconds (9.8-13.1)
[2018-03-23 03:58] LABS: HEMOGLOBIN 9.4 g/dL (12.0-16.0); MEAN CORPUSCULAR HEMOGLOBIN 23.9 pg (27.0-31.0); MEAN CORPUSCULAR HGB CONC 30.6 g/dL (33.0-37.0); RBC 3.96 Mil/uL (3.80-5.20); RED CELL DISTRIBUTION WIDTH 22.8 % (11.5-14.5); WHITE BLOOD COUNT 15.1 K/uL (4.8-10.8)
[2018-03-23 04:24] LABS: CALCIUM 8.9 mg/dL (8.4-10.2)
[2018-03-23 04:25] LABS: PROTHROMBIN TIME 15.5 Seconds (9.8-13.1)
[2018-03-23 04:26] LABS: INR 1.4 (0.9-1.2)
[2018-03-23] MEDS: Heparin 25,000units in D5W 25,000 UNITS/250 ML BAG IV SCH (05:45)
--- NOTE | 2018-03-23 07:33 | CP.PCM.PN ---
Subjective - Date & Time of Evaluation Date of Evaluation: 03/23/18 Time of Evaluation: 07:32 - Subjective Subjective: General Surgery - Dr. Guo Pt S&E. LEOPOLDO. Pt complains of b/l leg pain, otherwise no complaints. She is on heparin drip, tolerating regular diet. No Fevers/Chills. Objective - Vital Signs/Intake and Output Vital Signs (last 24 hours): Temp Pulse Resp BP Pulse Ox 97.4 F L 60 20 105/61 99 03/22/18 23:54 03/22/18 23:54 03/22/18 23:54 03/22/18 23:54 03/22/18 23:54 - Medications Medications: Current Medications Acetaminophen (Tylenol 325mg Tab) 650 mg PO Q4 PRN PRN Reason: Pain, Mild (1-3) Aspirin (Aspirin) 325 mg PO DAILY [facility] Last Admin: 03/22/18 10:12 Dose: 325 mg Bisacodyl (Dulcolax) 10 mg [place] DAILY PRN PRN Reason: Constipation Clopidogrel Bisulfate (Plavix) 75 mg PO DAILY [facility] Last Admin: 03/22/18 10:05 Dose: 75 mg Dimethicone (Proshield Plus Skin Protectant) 1 applic TOP QSHIFT [facility] Last Admin: 03/22/18 10:08 Dose: 1 applic Docusate Sodium (Colace) 100 mg PO DAILY [facility] Last Admin: 03/22/18 10:06 Dose: 100 mg Escitalopram Oxalate (Lexapro) 5 mg PO HS [facility] Last Admin: 03/22/18 21:23 Dose: 5 mg Famotidine (Pepcid) 20 mg PO DAILY [facility] Last Admin: 03/22/18 10:07 Dose: 20 mg Ferrous Sulfate (Feosol) 325 mg PO DAILY [facility] Last Admin: 03/22/18 10:03 Dose: 325 mg Furosemide (Lasix) 20 mg PO DAILY [facility] Last Admin: 03/22/18 10:05 Dose: 20 mg Glipizide (Glucotrol Xl) 2.5 mg PO DAILY [facility] Last Admin: 03/22/18 10:06 Dose: 2.5 mg Piperacillin Sod/Tazobactam (Sod 2.25 gm/ Sodium Chloride) 100 mls @ 100 mls/ hr IVPB Q8 [facility] PRN Reason: Protocol Last Admin: 03/23/18 00:35 Dose: 100 mls/hr Heparin Sodium/Dextrose (Heparin 25,000 Units/250ml In D5w) 25,000 units in 250 mls @ 9.5 mls/hr IV .Q24H [facility] PRN Reason: Protocol Last Admin: 03/22/18 15:02 Dose: 9.5 mls/hr Amikacin Sulfate 300 mg/ (Sodium Chloride) 101.2 mls @ 100.724 mls/hr IVPB DAILY@1200 [facility] PRN Reason: Protocol Last Admin: 03/22/18 14:10 Dose: 100.724 mls/hr Heparin Sodium/Dextrose (Heparin 25,000 Units/250ml In D5w) 25,000 units in 250 mls @ 7.5 mls/hr IV .Q24H [facility] PRN Reason: Protocol Last Admin: 03/23/18 05:45 Dose: 7.5 mls/hr Isosorbide Mononitrate (Imdur Er) 30 mg PO DAILY [facility] Last Admin: 03/22/18 10:06 Dose: 30 mg Magnesium Hydroxide (Milk Of Magnesia) 30 ml PO HS PRN PRN Reason: Constipation Memantine (Namenda) 5 mg PO BID [facility] Last Admin: 03/22/18 16:15 Dose: 5 mg Methimazole (Tapazole) 5 mg PO DAILY [facility] Last Admin: 03/22/18 10:08 Dose: 5 mg Metoprolol Tartrate (Lopressor) 25 mg PO Q12 [facility] Last Admin: 03/22/18 21:20 Dose: 25 mg Multivitamins/Minerals (Therapeutic-M Tab) 1 tab PO DAILY [facility] Last Admin: 03/22/18 10:03 Dose: 1 tab Oxycodone/Acetaminophen (Percocet 5/325 Mg Tab) 1 tab PO Q4 PRN PRN Reason: Pain, moderate (4-7) Stop: 03/23/18 20:39 Last Admin: 03/22/18 11:48 Dose: 1 tab Silver Sulfadiazine (Silvadene 1% 50 Gm) 1 applic TOP BID [facility] Last Admin: 03/22/18 16:15 Dose: Not Given Sodium Hypochlorite (Dakins Solution 0.125%) 1 appl TOP QD7 [facility] Last Admin: 03/22/18 10:15 Dose: 1 appl Tramadol HCl (Ultram) 50 mg PO Q6 PRN PRN Reason: Pain, moderate (4-7) - Labs Labs: 03/23/18 03:40 03/23/18 03:40 PT 15.5 Seconds (9.8-13.1) H 03/23/18 03:40 INR 1.4 (0.9-1.2) H 03/23/18 03:40 APTT 98.3 Seconds (25.6-37.1) H D 03/23/18 03:40 - Constitutional Appears: No Acute Distress - Head Exam Head Exam: ATRAUMATIC, NORMAL INSPECTION, NORMOCEPHALIC - Eye Exam Eye Exam: Normal appearance - Respiratory Exam Respiratory Exam: NORMAL BREATHING PATTERN. absent: Respiratory Distress - Cardiovascular Exam Cardiovascular Exam: REGULAR RHYTHM - Extremities Exam Additional comments: dressings to b/l lower extremities, necrotic toes b/l - Neurological Exam Neurological Exam: Alert, Oriented x3 - Psychiatric Exam Psychiatric exam: Normal Affect, Normal Mood - Skin Skin Exam: Dry, Intact Assessment and Plan - Assessment and Plan (Free Text) Assessment: 77 y/o F w/ PVD, non-healing necrotic B/L LE wounds - Continue Heparin drip - IV Abx as per ID - Daily dressing changes by podiatry/wound care - Angio with Dr. Damon planned for tomorrow, will f/u - Possible AKA in future if pt. agreeable - Recc. Nephrology consult for worsening ABBEY DW Dr. Chuck Urena PGy4
[2018-03-23] MEDS: Oxycodone/Acetaminophen 5/325 mg Tab PO PRN ×2 (08:07→17:55)
[2018-03-23] MEDS: Multivitamin With Minerals Tab PO SCH (08:19)
[2018-03-23] MEDS: methIMAzole 5 MG TAB PO SCH (08:19)
[2018-03-23] MEDS: GlipiZIDE 2.5 mg SR Tab PO SCH (08:19)
[2018-03-23] MEDS: Silver Sulfadiazine 1% CREAM (50 gm) TOP SCH ×2 (08:22→18:01)
--- NOTE | 2018-03-23 09:44 | CP.PCM.PN ---
Subjective - Date & Time of Evaluation Date of Evaluation: 03/23/18 Time of Evaluation: 09:40 - Subjective Subjective: Podiatry Consult Note for attending Dr. Briseno 77 y/o female patient seen and evaluated in the bedside for bilateral lower extremity ulcerations with swelling and cellulites. Patient resting comfortably , and only in distress during dressing changes. Patient was able to communicate today and patient denied any overnight nausea, fever, shortness of breath, or chest pain. New wound noted to the right hallux, patient does not recall if she hit her toe against something Patient agreed to dressing change today Objective - Vital Signs/Intake and Output Vital Signs (last 24 hours): Temp Pulse Resp BP Pulse Ox 97.1 F L 71 20 119/61 98 03/23/18 08:01 03/23/18 08:44 03/23/18 08:01 03/23/18 08:44 03/23/18 08:01 - Medications Medications: Current Medications Acetaminophen (Tylenol 325mg Tab) 650 mg PO Q4 PRN PRN Reason: Pain, Mild (1-3) Aspirin (Aspirin) 325 mg PO DAILY [facility] Last Admin: 03/23/18 08:30 Dose: 325 mg Bisacodyl (Dulcolax) 10 mg [place] DAILY PRN PRN Reason: Constipation Clopidogrel Bisulfate (Plavix) 75 mg PO DAILY [facility] Last Admin: 03/23/18 08:19 Dose: 75 mg Dimethicone (Proshield Plus Skin Protectant) 1 applic TOP QSHIFT [facility] Last Admin: 03/22/18 10:08 Dose: 1 applic Docusate Sodium (Colace) 100 mg PO DAILY [facility] Last Admin: 03/23/18 08:20 Dose: Not Given Escitalopram Oxalate (Lexapro) 5 mg PO [facility] Last Admin: 03/22/18 21:23 Dose: 5 mg Famotidine (Pepcid) 20 mg PO DAILY [facility] Last Admin: 03/23/18 08:18 Dose: 20 mg Ferrous Sulfate (Feosol) 325 mg PO DAILY [facility] Last Admin: 03/23/18 08:18 Dose: 325 mg Furosemide (Lasix) 20 mg PO DAILY [facility] Last Admin: 03/23/18 08:43 Dose: 20 mg Glipizide (Glucotrol Xl) 2.5 mg PO DAILY [facility] Last Admin: 03/23/18 08:19 Dose: 2.5 mg Piperacillin Sod/Tazobactam (Sod 2.25 gm/ Sodium Chloride) 100 mls @ 100 mls/ hr IVPB Q8 [facility] PRN Reason: Protocol Last Admin: 03/23/18 08:33 Dose: 100 mls/hr Amikacin Sulfate 300 mg/ (Sodium Chloride) 101.2 mls @ 100.724 mls/hr IVPB DAILY@1200 [facility] PRN Reason: Protocol Last Admin: 03/22/18 14:10 Dose: 100.724 mls/hr Heparin Sodium/Dextrose (Heparin 25,000 Units/250ml In D5w) 25,000 units in 250 mls @ 7.5 mls/hr IV .Q24H [facility] PRN Reason: Protocol Last Admin: 03/23/18 05:45 Dose: 7.5 mls/hr Isosorbide Mononitrate (Imdur Er) 30 mg PO DAILY [facility] Last Admin: 03/23/18 08:19 Dose: 30 mg Magnesium Hydroxide (Milk Of Magnesia) 30 ml PO HS PRN PRN Reason: Constipation Memantine (Namenda) 5 mg PO BID [facility] Last Admin: 03/23/18 08:19 Dose: 5 mg Methimazole (Tapazole) 5 mg PO DAILY [facility] Last Admin: 03/23/18 08:19 Dose: 5 mg Metoprolol Tartrate (Lopressor) 25 mg PO Q12 [facility] Last Admin: 03/23/18 08:44 Dose: 25 mg Multivitamins/Minerals (Therapeutic-M Tab) 1 tab PO DAILY [facility] Last Admin: 03/23/18 08:19 Dose: 1 tab Oxycodone/Acetaminophen (Percocet 5/325 Mg Tab) 1 tab PO Q4 PRN PRN Reason: Pain, moderate (4-7) Stop: 03/23/18 20:39 Last Admin: 03/23/18 08:07 Dose: 1 tab Silver Sulfadiazine (Silvadene 1% 50 Gm) 1 applic TOP BID [facility] Last Admin: 03/23/18 08:22 Dose: 1 applic Sodium Hypochlorite (Dakins Solution 0.125%) 1 appl TOP QD7 [facility] Last Admin: 03/23/18 08:23 Dose: 1 appl Tramadol HCl (Ultram) 50 mg PO Q6 PRN PRN Reason: Pain, moderate (4-7) - Labs Labs: 03/23/18 03:40 03/23/18 03:40 PT 15.5 Seconds (9.8-13.1) H 03/23/18 03:40 INR 1.4 (0.9-1.2) H 03/23/18 03:40 APTT 98.3 Seconds (25.6-37.1) H D 03/23/18 03:40 - Constitutional Appears: Well, Non-toxic, No Acute Distress - Head Exam Head Exam: ATRAUMATIC, NORMOCEPHALIC - Extremities Exam Additional comments: Lower extremity focused exam Vasc: DP pulses and PT pulses non-palpable, Temp gradient cool to cool, Cap refill delayed to digits/not attainable due to necrosis of 2-5 on right foot Neuro: Protective sensation grossly intact bilaterally MSK: all wounds painful to palpation Derm: Multiple ulcerations noted to the entire lower extremity with mixture of fibrotic/necrotic wound base: Erythema to the entire LE R>L, significantly malodorous, all sites (-) for purulence, probe to bone, tunneling or undermining. RIGHT- 1) Necrotic right heel eschar unstagable with no drainage noted measuring 9.0 cm X 7.0 cm 2) Circumferential ulceration to the medial posterior aspect measuring 21 cm in length, fibrotic edges, peroneal tendon exposed, drainage noted 3) necrotic 2nd and 3rd digits till the level of the MPTJ, dorsally necrotic 4th digit t the level of the MTPJ 4) fibro/necrotic ulceration to the dorsal aspect of the hallux at the PIPJ measuring 3.0 cmX 2.5 cm 5) fibro/necrotic ulceration to the dorsal forefoot measuring 2.5 cm X 1.8 cm 6) fibro/necrotic ulceration noted to the medial ankle distal to the medial malleolus measuring 4. 0 X 2.0 cm, + fluctuance noted 7) fibro/necrotic ulceration to the anterior tibial tuberosity measuring 3.0 X 1.0 cm 8) circular ulceration noted to the medial aspect of the leg at the level of the tibial tuberosity measuring 2.4 cm X 2.6 cm with 80% graular and 20% fibrotic bases, surrounding erythema 9) multiple stable eschars to the knee 10) New wound noted to the right hallux with minimal bleeding LEFT- 1) echar to the heel, necrotic, measuring 5.0 cm X 6.0 cm 2) fibro/necrotic ulceration to the dorsal aspect of the foot, with fibrotic edges, positive drainage 3) fibro/necrotic ulceration to the medial aspect of the leg measuring 5.0 c, X 3.0 cm 4) gangranous changes to the tip of the hallux, and to the dorsum of the 2nd digit 5) multipe eschars to the tibial tuberosity, stable in nature - Neurological Exam Neurological Exam: Alert, Awake - Psychiatric Exam Psychiatric exam: Normal Affect, Normal Mood Assessment and Plan - Assessment and Plan (Free Text) Assessment: 77 y/o F patient seen and evaluated at bedside for multiple b/l LE ulcerations, gangrenous digits bilaterally Plan: Patient seen and evaluated in the bedside Plan discussed in details with attending Dr. Briseno Patient chart, labs and vitals reviewed: Afebrile, WBC 15.1 Arterial duplex LE didn't reveal any stenotic changes proximally. X-ray foot b/l: No signs of acute osseous changes b/l. Proximal tib-fibula X-ray: multiple deep ulcers, no evidence of osteomyelitis. Continue IV Antibiotics B/L wound culture 03/20/18: Gram Negative Terry Prelim Dr. Damon to plan Peripheral Angio on Saturday03/24/18 Wound dressed by nursing, appreciated help with dressing change- patient did not allow wounds to be cleansed wibayron Dakcielo, wounds dressed with Adaptic, Xeroform, ABD, DSD Podiatry will continue to follow up the patient in house
[2018-03-23 12:32] LABS: INR 1.4 (0.9-1.2); PARTIAL THROMBOPLASTIN TIME 63.5 Seconds (25.6-37.1); PROTHROMBIN TIME 15.7 Seconds (9.8-13.1)
--- NOTE | 2018-03-23 13:13 | CP.PCM.PN ---
Subjective - Date & Time of Evaluation Date of Evaluation: 03/23/18 Time of Evaluation: 09:00 - Subjective Subjective: weak and lethargic in NAD Objective - Vital Signs/Intake and Output Vital Signs (last 24 hours): Temp Pulse Resp BP Pulse Ox 97.1 F L 71 20 119/61 98 03/23/18 08:01 03/23/18 08:44 03/23/18 08:01 03/23/18 08:44 03/23/18 08:01 - Medications Medications: Current Medications Acetaminophen (Tylenol 325mg Tab) 650 mg PO Q4 PRN PRN Reason: Pain, Mild (1-3) Aspirin (Aspirin) 325 mg PO DAILY [facility] Last Admin: 03/23/18 08:30 Dose: 325 mg Bisacodyl (Dulcolax) 10 mg [place] DAILY PRN PRN Reason: Constipation Clopidogrel Bisulfate (Plavix) 75 mg PO DAILY [facility] Last Admin: 03/23/18 08:19 Dose: 75 mg Dimethicone (Proshield Plus Skin Protectant) 1 applic TOP QSHIFT [facility] Last Admin: 03/22/18 10:08 Dose: 1 applic Docusate Sodium (Colace) 100 mg PO DAILY [facility] Last Admin: 03/23/18 08:20 Dose: Not Given Escitalopram Oxalate (Lexapro) 5 mg PO HS [facility] Last Admin: 03/22/18 21:23 Dose: 5 mg Famotidine (Pepcid) 20 mg PO DAILY [facility] Last Admin: 03/23/18 08:18 Dose: 20 mg Ferrous Sulfate (Feosol) 325 mg PO DAILY [facility] Last Admin: 03/23/18 08:18 Dose: 325 mg Furosemide (Lasix) 20 mg PO DAILY [facility] Last Admin: 03/23/18 08:43 Dose: 20 mg Glipizide (Glucotrol Xl) 2.5 mg PO DAILY [facility] Last Admin: 03/23/18 08:19 Dose: 2.5 mg Piperacillin Sod/Tazobactam (Sod 2.25 gm/ Sodium Chloride) 100 mls @ 100 mls/ hr IVPB Q8 [facility] PRN Reason: Protocol Last Admin: 03/23/18 08:33 Dose: 100 mls/hr Amikacin Sulfate 300 mg/ (Sodium Chloride) 101.2 mls @ 100.724 mls/hr IVPB DAILY@1200 [facility] PRN Reason: Protocol Last Admin: 03/23/18 11:32 Dose: 100.724 mls/hr Heparin Sodium/Dextrose (Heparin 25,000 Units/250ml In D5w) 25,000 units in 250 mls @ 7.5 mls/hr IV .Q24H [facility] PRN Reason: Protocol Last Admin: 03/23/18 05:45 Dose: 7.5 mls/hr Isosorbide Mononitrate (Imdur Er) 30 mg PO DAILY [facility] Last Admin: 03/23/18 08:19 Dose: 30 mg Magnesium Hydroxide (Milk Of Magnesia) 30 ml PO HS PRN PRN Reason: Constipation Memantine (Namenda) 5 mg PO BID [facility] Last Admin: 03/23/18 08:19 Dose: 5 mg Metoprolol Tartrate (Lopressor) 25 mg PO Q12 [facility] Last Admin: 03/23/18 08:44 Dose: 25 mg Multivitamins/Minerals (Therapeutic-M Tab) 1 tab PO DAILY [facility] Last Admin: 03/23/18 08:19 Dose: 1 tab Oxycodone/Acetaminophen (Percocet 5/325 Mg Tab) 1 tab PO Q4 PRN PRN Reason: Pain, moderate (4-7) Stop: 03/23/18 20:39 Last Admin: 03/23/18 08:07 Dose: 1 tab Silver Sulfadiazine (Silvadene 1% 50 Gm) 1 applic TOP BID [facility] Last Admin: 03/23/18 08:22 Dose: 1 applic Sodium Hypochlorite (Dakins Solution 0.125%) 1 appl TOP QD7 [facility] Last Admin: 03/23/18 08:23 Dose: 1 appl Tramadol HCl (Ultram) 50 mg PO Q6 PRN PRN Reason: Pain, moderate (4-7) - Labs Labs: 03/23/18 03:40 03/23/18 03:40 PT 15.7 Seconds (9.8-13.1) H 03/23/18 11:45 INR 1.4 (0.9-1.2) H 03/23/18 11:45 APTT 63.5 Seconds (25.6-37.1) H D 03/23/18 11:45 - Constitutional Appears: Confused, Chronically Ill - Head Exam Head Exam: NORMOCEPHALIC - Eye Exam Eye Exam: absent: Scleral icterus - ENT Exam ENT Exam: Mucous Membranes Dry - Neck Exam Neck Exam: absent: Lymphadenopathy - Respiratory Exam Respiratory Exam: Decreased Breath Sounds, Rhonchi - Cardiovascular Exam Cardiovascular Exam: REGULAR RHYTHM, +S1, +S2 - GI/Abdominal Exam GI & Abdominal Exam: Distended, Soft - Rectal Exam Rectal Exam: Deferred - Exam Exam: NORMAL INSPECTION - Extremities Exam Extremities Exam: Tenderness. absent: Calf Tenderness Additional comments: Vasc: DP pulses and PT pulses non-palpable, Temp gradient cool to cool, Cap refill delayed to digits/not attainable due to necrosis of 2-5 on right foot Neuro: Protective sensation grossly intact bilaterally MSK: all wounds painful to palpation Derm: Multiple ulcerations noted to the entire lower extremity with mixture of fibrotic/necrotic wound base: Erythema to the entire LE R>L, significantly malodorous, all sites (-) for purulence, probe to bone, tunneling or undermining. RIGHT- 1) Necrotic right heel eschar unstagable with no drainage noted measuring 9.0 cm X 7.0 cm 2) Circumferential ulceration to the medial posterior aspect measuring 21 cm in length, fibrotic edges, peroneal tendon exposed, drainage noted 3) necrotic 2nd and 3rd digits till the level of the MPTJ, dorsally necrotic 4th digit t the level of the MTPJ 4) fibro/necrotic ulceration to the dorsal aspect of the hallux at the PIPJ measuring 3.0 cmX 2.5 cm 5) fibro/necrotic ulceration to the dorsal forefoot measuring 2.5 cm X 1.8 cm 6) fibro/necrotic ulceration noted to the medial ankle distal to the medial malleolus measuring 4. 0 X 2.0 cm, + fluctuance noted 7) fibro/necrotic ulceration to the anterior tibial tuberosity measuring 3.0 X 1.0 cm 8) circular ulceration noted to the medial aspect of the leg at the level of the tibial tuberosity measuring 2.4 cm X 2.6 cm with 80% graular and 20% fibrotic bases, surrounding erythema 9) multiple stable eschars to the knee 10) New wound noted to the right hallux with minimal bleeding LEFT- 1) echar to the heel, necrotic, measuring 5.0 cm X 6.0 cm 2) fibro/necrotic ulceration to the dorsal aspect of the foot, with fibrotic edges, positive drainage 3) fibro/necrotic ulceration to the medial aspect of the leg measuring 5.0 c, X 3.0 cm 4) gangranous changes to the tip of the hallux, and to the dorsum of the 2nd digit 5) multipe eschars to the tibial tuberosity, stable in nature - Back Exam Back Exam: absent: CVA tenderness (L), CVA tenderness (R) - Neurological Exam Neurological Exam: Altered - Psychiatric Exam Psychiatric exam: Depressed - Skin Skin Exam: Dry Assessment and Plan (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
[2018-03-23] MEDS ORDERED: Heparin 25,000units in D5W 25,000 UNITS/250 ML BAG IV SCH (13:30)
--- NOTE | 2018-03-23 16:33 | PN ---
DATE: 03/23/2018 ENDO FOLLOWUP NOTE. LOCATION: In room 668. SUBJECTIVE: This is a 77-year-old female with recent uncontrolled type 2 diabetes, presenting here with severe gangrene of her distal digits of both lower extremities with severe underlying peripheral arterial disease who is now being followed closely for metabolic management. Her blood sugar levels are fluctuating but improved. Her glucose values have ranged from 143 to 156 mg/dL. sodium 139, potassium 4.5, chloride 103, CO2 of 21, glucose 138, and creatinine 1.7. Her thyroid studies have remained improved, and the latest T4 is 5.71 with a TSH of 5.18 and a free T4 of 1.38. ASSESSMENT AND PLAN: So, at this time, we have actually discontinued her Tapazole medication as ordered. We will continue the glipizide medication given as a low dose of 2.5 mg once daily as given. We will obtain serial chemistries and supplement accordingly as needed. We will also obtain serial thyroid studies and determine the need to resume the dose regimen accordingly. With the presence of subclinical hypothyroidism, it would be more prudent to discontinue the Tapazole medication for now. We will follow. Lucia Corley MD
[2018-03-23] MEDS: Cefepime 1 GM in Sodium Chloride 0.9% 100 ML IVPB SCH (16:59)
[2018-03-23] MEDS: Sodium Chloride 0.45% 1,000 ML IV SCH (17:58)
[2018-03-23 18:37] LABS: INR 1.4 (0.9-1.2); PARTIAL THROMBOPLASTIN TIME 66.3 Seconds (25.6-37.1); PROTHROMBIN TIME 15.1 Seconds (9.8-13.1)
[2018-03-23 19:14] LABS: SQUAMOUS EPITHIAL 9 /hpf (0-5); URINE BACTERIA MANY (<OCC); URINE BILIRUBIN NEGATIVE (NEGATIVE); URINE BLOOD LARGE (NEGATIVE); URINE CLARITY TURBID (Clear); URINE COLOR AMBER (YELLOW); URINE GLUCOSE (UA) NEG (Normal); URINE LEUKOCYTE ESTERASE LARGE Leu/uL (Negative); URINE PROTEIN 30 mg/dL (NEGATIVE); WBC CLUMPS FEW /hpf
[2018-03-24] MEDS: Sodium Chloride 0.45% 1,000 ML IV SCH (05:45)
--- NOTE | 2018-03-24 07:45 | CP.PCM.PN ---
Subjective - Date & Time of Evaluation Date of Evaluation: 03/24/18 Time of Evaluation: 07:43 - Subjective Subjective: Surgery pt seen and examined. Afebrile. Sleeping comfortably. Wound culture shows ecoli Objective - Vital Signs/Intake and Output Vital Signs (last 24 hours): Temp Pulse Resp BP Pulse Ox 97.7 F 70 19 109/65 99 03/24/18 00:00 03/24/18 00:00 03/24/18 00:00 03/24/18 00:00 03/24/18 00:00 - Medications Medications: Current Medications Acetaminophen (Tylenol 325mg Tab) 650 mg PO Q4 PRN PRN Reason: Pain, Mild (1-3) Aspirin (Aspirin) 325 mg PO DAILY [facility] Last Admin: 03/23/18 08:30 Dose: 325 mg Bisacodyl (Dulcolax) 10 mg [place] DAILY PRN PRN Reason: Constipation Clopidogrel Bisulfate (Plavix) 75 mg PO DAILY [facility] Last Admin: 03/23/18 08:19 Dose: 75 mg Dimethicone (Proshield Plus Skin Protectant) 1 applic TOP QSHIFT [facility] Last Admin: 03/22/18 10:08 Dose: 1 applic Docusate Sodium (Colace) 100 mg PO DAILY [facility] Last Admin: 03/23/18 08:20 Dose: Not Given Escitalopram Oxalate (Lexapro) 5 mg PO HS [facility] Last Admin: 03/23/18 22:27 Dose: 5 mg Famotidine (Pepcid) 20 mg PO DAILY [facility] Last Admin: 03/23/18 08:18 Dose: 20 mg Ferrous Sulfate (Feosol) 325 mg PO DAILY [facility] Last Admin: 03/23/18 08:18 Dose: 325 mg Furosemide (Lasix) 20 mg PO DAILY [facility] Last Admin: 03/23/18 08:43 Dose: 20 mg Glipizide (Glucotrol Xl) 2.5 mg PO DAILY [facility] Last Admin: 03/23/18 08:19 Dose: 2.5 mg Piperacillin Sod/Tazobactam (Sod 2.25 gm/ Sodium Chloride) 100 mls @ 100 mls/ hr IVPB Q8 [facility] PRN Reason: Protocol Last Admin: 03/24/18 00:50 Dose: 100 mls/hr Cefepime HCl 1 gm/ Sodium (Chloride) 100 mls @ 100 mls/hr IVPB DAILY [facility] PRN Reason: Protocol Last Admin: 03/23/18 16:59 Dose: 100 mls/hr Sodium Chloride (Sodium Chloride 0.45%) 1,000 mls @ 80 mls/hr IV .[id number] [facility] Stop: 03/24/18 17:12 Last Admin: 03/24/18 05:45 Dose: Not Given Isosorbide Mononitrate (Imdur Er) 30 mg PO DAILY [facility] Last Admin: 03/23/18 08:19 Dose: 30 mg Magnesium Hydroxide (Milk Of Magnesia) 30 ml PO HS PRN PRN Reason: Constipation Memantine (Namenda) 5 mg PO BID [facility] Last Admin: 03/23/18 17:55 Dose: 5 mg Metoprolol Tartrate (Lopressor) 25 mg PO Q12 [facility] Last Admin: 03/23/18 22:26 Dose: 25 mg Multivitamins/Minerals (Therapeutic-M Tab) 1 tab PO DAILY [facility] Last Admin: 03/23/18 08:19 Dose: 1 tab Silver Sulfadiazine (Silvadene 1% 50 Gm) 1 applic TOP BID [facility] Last Admin: 03/23/18 18:01 Dose: Not Given Sodium Hypochlorite (Dakins Solution 0.125%) 1 appl TOP QD7 [facility] Last Admin: 03/23/18 08:45 Dose: Not Given Tramadol HCl (Ultram) 50 mg PO Q6 PRN PRN Reason: Pain, moderate (4-7) - Labs Labs: 03/23/18 03:40 03/23/18 03:40 PT 15.1 Seconds (9.8-13.1) H 03/23/18 17:52 INR 1.4 (0.9-1.2) H 03/23/18 17:52 APTT 66.3 Seconds (25.6-37.1) H 03/23/18 17:52 - Constitutional Appears: Unkempt, Chronically Ill - Head Exam Head Exam: ATRAUMATIC, NORMAL INSPECTION, NORMOCEPHALIC - Eye Exam Eye Exam: EOMI, Normal appearance, PERRL Pupil Exam: NORMAL ACCOMODATION, PERRL - ENT Exam ENT Exam: Mucous Membranes Moist, Normal Exam - Neck Exam Neck Exam: Full ROM, Normal Inspection. absent: Lymphadenopathy - Respiratory Exam Respiratory Exam: NORMAL BREATHING PATTERN - Cardiovascular Exam Cardiovascular Exam: REGULAR RHYTHM, +S1, +S2. absent: Murmur - GI/Abdominal Exam GI & Abdominal Exam: Soft, Normal Bowel Sounds. absent: Distended, Firm, Rigid , Tenderness - Extremities Exam Extremities Exam: Joint Swelling, Pedal Edema, Tenderness. absent: Full ROM, Normal Capillary Refill, Normal Inspection Additional comments: b/l legs wrapped. necrotic toes. TTP - Back Exam Back Exam: NORMAL INSPECTION - Skin Skin Exam: Erythema, Mottled, Pallor. absent: Dry, Intact, Normal Color, Warm Assessment and Plan - Assessment and Plan (Free Text) Assessment: 77 y/o F w/ PVD, non-healing necrotic B/L LE wounds - Continue Heparin drip - IV Abx as per ID - Daily dressing changes by podiatry/wound care - f/u Angio with Dr. Damon -Recommend revascularization prior to AKA v BKA for improved wound healing. - Possible AKA in future if pt agreeable: Pt has intermittent delirium. - Recc. Nephrology consult for worsening ABBEY Will DW Dr. Woods
--- NOTE | 2018-03-24 08:06 | CP.PCM.PN ---
Subjective - Date & Time of Evaluation Date of Evaluation: 03/24/18 Time of Evaluation: 08:04 - Subjective Subjective: Podiatry Consult Note for Dr. Briseno: 77 year old female patient seen and evaluated for bilateral lower extremity ulcerations. Patient resting comfortably at bedside, however agitated during dressing changes. She states that she is in severe pain and does not like having her dressing changed. Denies N/V/F/SOB/CP. Objective - Vital Signs/Intake and Output Vital Signs (last 24 hours): Temp Pulse Resp BP Pulse Ox 97.7 F 70 19 109/65 99 03/24/18 00:00 03/24/18 00:00 03/24/18 00:00 03/24/18 00:00 03/24/18 00:00 - Medications Medications: Current Medications Acetaminophen (Tylenol 325mg Tab) 650 mg PO Q4 PRN PRN Reason: Pain, Mild (1-3) Aspirin (Aspirin) 325 mg PO DAILY [facility] Last Admin: 03/23/18 08:30 Dose: 325 mg Bisacodyl (Dulcolax) 10 mg [place] DAILY PRN PRN Reason: Constipation Clopidogrel Bisulfate (Plavix) 75 mg PO DAILY [facility] Last Admin: 03/23/18 08:19 Dose: 75 mg Dimethicone (Proshield Plus Skin Protectant) 1 applic TOP QSHIFT [facility] Last Admin: 03/22/18 10:08 Dose: 1 applic Docusate Sodium (Colace) 100 mg PO DAILY [facility] Last Admin: 03/23/18 08:20 Dose: Not Given Escitalopram Oxalate (Lexapro) 5 mg PO HS [facility] Last Admin: 03/23/18 22:27 Dose: 5 mg Famotidine (Pepcid) 20 mg PO DAILY [facility] Last Admin: 03/23/18 08:18 Dose: 20 mg Ferrous Sulfate (Feosol) 325 mg PO DAILY [facility] Last Admin: 03/23/18 08:18 Dose: 325 mg Furosemide (Lasix) 20 mg PO DAILY [facility] Last Admin: 03/23/18 08:43 Dose: 20 mg Glipizide (Glucotrol Xl) 2.5 mg PO DAILY [facility] Last Admin: 03/23/18 08:19 Dose: 2.5 mg Piperacillin Sod/Tazobactam (Sod 2.25 gm/ Sodium Chloride) 100 mls @ 100 mls/ hr IVPB Q8 [facility] PRN Reason: Protocol Last Admin: 03/24/18 00:50 Dose: 100 mls/hr Cefepime HCl 1 gm/ Sodium (Chloride) 100 mls @ 100 mls/hr IVPB DAILY [facility] PRN Reason: Protocol Last Admin: 03/23/18 16:59 Dose: 100 mls/hr Sodium Chloride (Sodium Chloride 0.45%) 1,000 mls @ 80 mls/hr IV .[id number] [facility] Stop: 03/24/18 17:12 Last Admin: 03/24/18 05:45 Dose: Not Given Isosorbide Mononitrate (Imdur Er) 30 mg PO DAILY [facility] Last Admin: 03/23/18 08:19 Dose: 30 mg Magnesium Hydroxide (Milk Of Magnesia) 30 ml PO HS PRN PRN Reason: Constipation Memantine (Namenda) 5 mg PO BID [facility] Last Admin: 03/23/18 17:55 Dose: 5 mg Metoprolol Tartrate (Lopressor) 25 mg PO Q12 [facility] Last Admin: 03/23/18 22:26 Dose: 25 mg Multivitamins/Minerals (Therapeutic-M Tab) 1 tab PO DAILY [facility] Last Admin: 03/23/18 08:19 Dose: 1 tab Silver Sulfadiazine (Silvadene 1% 50 Gm) 1 applic TOP BID [facility] Last Admin: 03/23/18 18:01 Dose: Not Given Sodium Hypochlorite (Dakins Solution 0.125%) 1 appl TOP QD7 [facility] Last Admin: 03/23/18 08:45 Dose: Not Given Tramadol HCl (Ultram) 50 mg PO Q6 PRN PRN Reason: Pain, moderate (4-7) - Labs Labs: 03/23/18 03:40 03/23/18 03:40 PT 15.1 Seconds (9.8-13.1) H 03/23/18 17:52 INR 1.4 (0.9-1.2) H 03/23/18 17:52 APTT 66.3 Seconds (25.6-37.1) H 03/23/18 17:52 - Constitutional Appears: Well, Non-toxic, No Acute Distress - Head Exam Head Exam: ATRAUMATIC, NORMOCEPHALIC - Extremities Exam Additional comments: Vasc: DP/PT pulses non-palpable, Temp gradient cool to cool, Cap refill delayed to digits/not attainable due to necrosis of 2-5 on right foot Ortho: Bilateral lower extremities painful upon palpation Neuro: Gross sensation intact and protective sensation diminished bilaterally Derm: Multiple ulcerations noted to the entire lower extremity with mixture of fibrotic/necrotic wound base: Erythema to the entire lower extremity with R>L, significantly malodorous, all sites (-) for purulence, probe to bone, tunneling or undermining. RIGHT: 1) Necrotic right heel eschar unstagable with no drainage noted measuring 9.0 cm X 7.0 cm 2) Circumferential ulceration to the medial posterior aspect measuring 21 cm in length, fibrotic edges, peroneal tendon exposed, drainage noted 3) necrotic 2nd and 3rd digits till the level of the MPTJ, dorsally necrotic 4th digit t the level of the MTPJ 4) fibro/necrotic ulceration to the dorsal aspect of the hallux at the PIPJ measuring 3.0 cmX 2.5 cm 5) fibro/necrotic ulceration to the dorsal forefoot measuring 2.5 cm X 1.8 cm 6) fibro/necrotic ulceration noted to the medial ankle distal to the medial malleolus measuring 4. 0 X 2.0 cm, + fluctuance noted 7) fibro/necrotic ulceration to the anterior tibial tuberosity measuring 3.0 X 1.0 cm 8) circular ulceration noted to the medial aspect of the leg at the level of the tibial tuberosity measuring 2.4 cm X 2.6 cm with 80% graular and 20% fibrotic bases, surrounding erythema 9) multiple stable eschars to the knee 10) New wound noted to the right hallux with minimal bleeding LEFT: 1) echar to the heel, necrotic, measuring 5.0 cm X 6.0 cm 2) fibro/necrotic ulceration to the dorsal aspect of the foot, with fibrotic edges, positive drainage 3) fibro/necrotic ulceration to the medial aspect of the leg measuring 5.0 c, X 3.0 cm 4) gangranous changes to the tip of the hallux, and to the dorsum of the 2nd digit 5) multipe eschars to the tibial tuberosity, stable in nature - Neurological Exam Neurological Exam: Alert, Awake - Psychiatric Exam Psychiatric exam: Agitated Assessment and Plan - Assessment and Plan (Free Text) Assessment: 77 year old female patient seen and evaluated for bilateral lower extremity ulcerations. Plan: Patient seen and evaluated Plan discussed in detail with Dr. Briseno Patient chart, labs and vitals reviewed: Afebrile, with WBC trending upward 15.1 (03/23/18) X-ray foot bilaterally: No signs of acute osseous changes. Proximal tib-fibula X-ray: multiple deep ulcers, no evidence of osteomyelitis. Continue IV Antibiotics per ID reccs Bilateral wound culture 03/20/18: E. Coli (Final) F/U with Dr. aDmon's plan for peripheral angio today Dressing change to bilateral lower extremities with Bernardino Corrigan, ZAIDA, and [facility] Podiatry will continue to follow while patient is in house
[2018-03-24] MEDS: Cefepime 1 GM in Sodium Chloride 0.9% 100 ML IVPB SCH (08:59)
[2018-03-24] MEDS ORDERED: Sodium Chloride 0.9% 1,000 ML IV SCH ×2 (09:00→11:00)
--- NOTE | 2018-03-24 10:29 | CP.PCM.CON ---
History of Present Illness - History of Present Illness History of Present Illness: This patient who is 77 years of age female I was called to see her for abnormal kidney function. Patient is not given any history. Patient in bed And the history was taken from the history and physical examination in the medical record. Patient admitted with bilateral leg ulcerations and patient receiving antibiotics and the rest of the medications reviewed Past medical history as noted in the medical record including diabetes mellitus Social history not contributory Review of Systems - Constitutional Constitutional: absent: Anorexia, Chills - Cardiovascular Cardiovascular: absent: Acrocyanosis, Chest Pain, Dyspnea - Respiratory Respiratory: absent: Cough, Dyspnea, Hemoptysis - Gastrointestinal Gastrointestinal: absent: Abdominal Pain, Coffee Ground Emesis - Genitourinary Genitourinary: Nocturia - Musculoskeletal Musculoskeletal: absent: Abnormal Gait - Neurological Neurological: As Per HPI - Psychiatric Psychiatric: As Per HPI - Endocrine Endocrine: Fatigue - Hematologic/Lymphatic Hematologic: absent: Easy Bleeding Past Patient History - Infectious Disease Hx of Infectious Diseases: None - Past Medical History & Family History Past Medical History?: Yes - Past Social History Smoking Status: Former Smoker - CARDIAC Hx Congestive Heart Failure: Yes Hx Hypercholesterolemia: Yes Hx Hypertension: Yes Hx Peripheral Edema: Yes - PULMONARY Hx Bronchitis: Yes Hx Chronic Obstructive Pulmonary Disease (COPD): Yes Hx Pneumonia: Yes - NEUROLOGICAL Other/Comment: Paresthesias of both feet - HEENT Hx HEENT Problems: No - RENAL Hx Chronic Kidney Disease: Yes - ENDOCRINE/METABOLIC Hx Hyperthyroidism: Yes - HEMATOLOGICAL/ONCOLOGICAL Hx AIDS: No Hx Anemia: Yes Hx Human Immunodeficiency Virus (HIV): No - INTEGUMENTARY Hx Dermatological Problems: Yes Hx Cellulitis: Yes - MUSCULOSKELETAL/RHEUMATOLOGICAL Hx Musculoskeletal Disorders: Yes Hx Falls: Yes - GASTROINTESTINAL Hx Gastrointestinal Disorders: No - GENITOURINARY/GYNECOLOGICAL Hx Genitourinary Disorders: No - PSYCHIATRIC Hx Psychophysiologic Disorder: Yes Hx Anxiety: Yes Hx Substance Use: No - SURGICAL HISTORY Hx Appendectomy: Yes Other/Comment: kidney stone removal - ANESTHESIA Hx Anesthesia: Yes Hx Anesthesia Reactions: No Hx Malignant Hyperthermia: No Meds Allergies/Adverse Reactions: Allergies Allergy/AdvReac Type Severity Reaction Status Date / Time No Known Allergies Allergy Verified 03/20/18 12:54 - Medications Medications: Current Medications Acetaminophen (Tylenol 325mg Tab) 650 mg PO Q4 PRN PRN Reason: Pain, Mild (1-3) Aspirin (Aspirin) 325 mg PO DAILY [facility] Last Admin: 03/23/18 08:30 Dose: 325 mg Bisacodyl (Dulcolax) 10 mg [place] DAILY PRN PRN Reason: Constipation Clopidogrel Bisulfate (Plavix) 75 mg PO DAILY [facility] Last Admin: 03/23/18 08:19 Dose: 75 mg Dimethicone (Proshield Plus Skin Protectant) 1 applic TOP QSHIFT [facility] Last Admin: 03/22/18 10:08 Dose: 1 applic Docusate Sodium (Colace) 100 mg PO DAILY [facility] Last Admin: 03/23/18 08:20 Dose: Not Given Escitalopram Oxalate (Lexapro) 5 mg PO HS [facility] Last Admin: 03/23/18 22:27 Dose: 5 mg Famotidine (Pepcid) 20 mg PO DAILY [facility] Last Admin: 03/23/18 08:18 Dose: 20 mg Ferrous Sulfate (Feosol) 325 mg PO DAILY [facility] Last Admin: 03/23/18 08:18 Dose: 325 mg Furosemide (Lasix) 20 mg PO DAILY [facility] Last Admin: 03/23/18 08:43 Dose: 20 mg Glipizide (Glucotrol Xl) 2.5 mg PO DAILY [facility] Last Admin: 03/23/18 08:19 Dose: 2.5 mg Cefepime HCl 1 gm/ Sodium (Chloride) 100 mls @ 100 mls/hr IVPB DAILY [facility] PRN Reason: Protocol Last Admin: 03/24/18 08:59 Dose: 100 mls/hr Sodium Chloride (Sodium Chloride 0.45%) 1,000 mls @ 80 mls/hr IV .[id number] [facility] Stop: 03/24/18 17:12 Last Admin: 03/24/18 05:45 Dose: Not Given Isosorbide Mononitrate (Imdur Er) 30 mg PO DAILY [facility] Last Admin: 03/23/18 08:19 Dose: 30 mg Magnesium Hydroxide (Milk Of Magnesia) 30 ml PO HS PRN PRN Reason: Constipation Memantine (Namenda) 5 mg PO BID [facility] Last Admin: 03/23/18 17:55 Dose: 5 mg Metoprolol Tartrate (Lopressor) 25 mg PO Q12 [facility] Last Admin: 03/23/18 22:26 Dose: 25 mg Multivitamins/Minerals (Therapeutic-M Tab) 1 tab PO DAILY [facility] Last Admin: 03/23/18 08:19 Dose: 1 tab Silver Sulfadiazine (Silvadene 1% 50 Gm) 1 applic TOP BID [facility] Last Admin: 03/23/18 18:01 Dose: Not Given Sodium Hypochlorite (Dakins Solution 0.125%) 1 appl TOP QD7 [facility] Last Admin: 03/23/18 08:45 Dose: Not Given Tramadol HCl (Ultram) 50 mg PO Q6 PRN PRN Reason: Pain, moderate (4-7) Physical Exam - Constitutional Appears: In Acute Distress - ENT Exam ENT Exam: Mucous Membranes Dry - Neck Exam Neck exam: Negative for: Lymphadenopathy - Respiratory Exam Respiratory Exam: NORMAL BREATHING PATTERN. absent: Chest Wall Tenderness - Cardiovascular Exam Cardiovascular Exam: absent: Gallop, JVD, Rubs - GI/Abdominal Exam GI & Abdominal Exam: absent: Guarding - Extremities Exam Extremities exam: Negative for: calf tenderness - Back Exam Back exam: absent: CVA tenderness (L), CVA tenderness (R) - Neurological Exam Neurological exam: Altered - Psychiatric Exam Psychiatric exam: Flat Affect Results - Vital Signs Recent Vital Signs: Last Vital Signs Temp 97.7 F 03/24/18 00:00 Pulse 70 03/24/18 00:00 Resp 19 03/24/18 00:00 BP 109/65 03/24/18 00:00 Pulse Ox 99 03/24/18 00:00 - Labs Result Diagrams: 03/23/18 03:40 03/23/18 03:40 Labs: Laboratory Results - last 24 hr 03/22/18 03/23/18 03/23/18 05:20 11:45 13:02 PT 15.7 H INR 1.4 H APTT 63.5 H D POC Glucose (mg/dL) 124 H Hemoglobin A1c 5.9 Urine Color Urine Clarity Urine pH Ur Specific [place] Urine Protein Urine Glucose (UA) Urine Ketones Urine Blood Urine Nitrate Urine Bilirubin Urine Urobilinogen Ur Leukocyte Esterase Urine RBC (Auto) Urine WBC Clumps (Auto) Urine Microscopic WBC Ur Squamous Epith Cells Urine Bacteria Urine Yeast (Budding) Ur Random Sodium 03/23/18 03/23/18 03/23/18 17:04 17:52 18:47 PT 15.1 H INR 1.4 H APTT 66.3 H POC Glucose (mg/dL) 121 H Hemoglobin A1c Urine Color Urine Clarity Urine pH Ur Specific [place] Urine Protein Urine Glucose (UA) Urine Ketones Urine Blood Urine Nitrate Urine Bilirubin Urine Urobilinogen Ur Leukocyte Esterase Urine RBC (Auto) Urine WBC Clumps (Auto) Urine Microscopic WBC Ur Squamous Epith Cells Urine Bacteria Urine Yeast (Budding) Ur Random Sodium 21 03/23/18 03/24/18 18:47 05:21 PT INR APTT POC Glucose (mg/dL) 119 H Hemoglobin A1c Urine Color [place] Urine Clarity Turbid Urine pH 5.0 Ur Specific [place] 1.020 Urine Protein 30 Urine Glucose (UA) Neg Urine Ketones Negative Urine Blood Large Urine Nitrate Negative Urine Bilirubin Negative Urine Urobilinogen 4.0 H Ur Leukocyte Esterase Large Urine RBC (Auto) 103 H Urine WBC Clumps (Auto) Few H Urine Microscopic WBC 299 H Ur Squamous Epith Cells 9 H Urine Bacteria Many H Urine Yeast (Budding) Many H Ur Random Sodium Assessment & Plan (1) Bilateral leg ulcer Status: Acute (2) ABBEY (acute kidney injury) Assessment and Plan: Patient appeared to have acute kidney injury perhaps related to multifactorial. appeared to be dehydrated. Bilateral leg ulcers Diabetes mellitus Recommendation and plan Continue IV fluid Stat spot urine for sodium osmolality and creatinine Discontinue Lasix and diuretics Antibiotics as adjustment per renal dose. Follow-up blood test Status: Acute
--- NOTE | 2018-03-24 11:57 | CP.PCM.PN ---
Subjective - Date & Time of Evaluation Date of Evaluation: 03/24/18 Time of Evaluation: 07:00 - Subjective Subjective: weak lethargic afeb Objective - Vital Signs/Intake and Output Vital Signs (last 24 hours): Temp Pulse Resp BP Pulse Ox 97.7 F 70 19 109/65 99 03/24/18 00:00 03/24/18 00:00 03/24/18 00:00 03/24/18 00:00 03/24/18 00:00 - Medications Medications: Current Medications Acetaminophen (Tylenol 325mg Tab) 650 mg PO Q4 PRN PRN Reason: Pain, Mild (1-3) Aspirin (Aspirin) 325 mg PO DAILY [facility] Last Admin: 03/23/18 08:30 Dose: 325 mg Bisacodyl (Dulcolax) 10 mg [place] DAILY PRN PRN Reason: Constipation Clopidogrel Bisulfate (Plavix) 75 mg PO DAILY [facility] Last Admin: 03/23/18 08:19 Dose: 75 mg Dimethicone (Proshield Plus Skin Protectant) 1 applic TOP QSHIFT [facility] Last Admin: 03/22/18 10:08 Dose: 1 applic Docusate Sodium (Colace) 100 mg PO DAILY [facility] Last Admin: 03/23/18 08:20 Dose: Not Given Escitalopram Oxalate (Lexapro) 5 mg PO HS [facility] Last Admin: 03/23/18 22:27 Dose: 5 mg Famotidine (Pepcid) 20 mg PO DAILY [facility] Last Admin: 03/23/18 08:18 Dose: 20 mg Ferrous Sulfate (Feosol) 325 mg PO DAILY [facility] Last Admin: 03/23/18 08:18 Dose: 325 mg Glipizide (Glucotrol Xl) 2.5 mg PO DAILY [facility] Last Admin: 03/23/18 08:19 Dose: 2.5 mg Cefepime HCl 1 gm/ Sodium (Chloride) 100 mls @ 100 mls/hr IVPB DAILY [facility] PRN Reason: Protocol Last Admin: 03/24/18 08:59 Dose: 100 mls/hr Sodium Chloride (Sodium Chloride 0.45%) 1,000 mls @ 80 mls/hr IV .[id number] [facility] Stop: 03/24/18 17:12 Last Admin: 03/24/18 05:45 Dose: Not Given Isosorbide Mononitrate (Imdur Er) 30 mg PO DAILY [facility] Last Admin: 03/23/18 08:19 Dose: 30 mg Magnesium Hydroxide (Milk Of Magnesia) 30 ml PO HS PRN PRN Reason: Constipation Memantine (Namenda) 5 mg PO BID [facility] Last Admin: 03/23/18 17:55 Dose: 5 mg Metoprolol Tartrate (Lopressor) 25 mg PO Q12 [facility] Last Admin: 03/23/18 22:26 Dose: 25 mg Multivitamins/Minerals (Therapeutic-M Tab) 1 tab PO DAILY [facility] Last Admin: 03/23/18 08:19 Dose: 1 tab Silver Sulfadiazine (Silvadene 1% 50 Gm) 1 applic TOP BID [facility] Last Admin: 03/23/18 18:01 Dose: Not Given Sodium Hypochlorite (Dakins Solution 0.125%) 1 appl TOP QD7 [facility] Last Admin: 03/23/18 08:45 Dose: Not Given Tramadol HCl (Ultram) 50 mg PO Q6 PRN PRN Reason: Pain, moderate (4-7) - Labs Labs: 03/23/18 03:40 03/23/18 03:40 PT 15.1 Seconds (9.8-13.1) H 03/23/18 17:52 INR 1.4 (0.9-1.2) H 03/23/18 17:52 APTT 66.3 Seconds (25.6-37.1) H 03/23/18 17:52 - Constitutional Appears: Non-toxic, Chronically Ill - Head Exam Head Exam: NORMOCEPHALIC - Eye Exam Eye Exam: PERRL - ENT Exam ENT Exam: Mucous Membranes Dry - Neck Exam Neck Exam: absent: Lymphadenopathy - Respiratory Exam Respiratory Exam: Decreased Breath Sounds - Cardiovascular Exam Cardiovascular Exam: REGULAR RHYTHM - GI/Abdominal Exam GI & Abdominal Exam: Distended, Soft. 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
--- NOTE | 2018-03-24 12:56 | US ---
Date of service: 03/24/2018 PROCEDURE: Ultrasound of the Kidneys HISTORY: ABBEY COMPARISON: 12/20/2017. Renal ultrasound. TECHNIQUE: Sonogram of the kidneys. FINDINGS: RIGHT KIDNEY: Measures: 5 x 5.4 x 9.9 cm. Normal in size, contour and echogenicity. No stone, solid mass lesion or hydronephrosis visualized. Incidental upper pole cyst 0.9 x 1.2 cm. LEFT KIDNEY: Measures: 5.1 x 5.4 x 11.1 cm. Normal in size, contour and echogenicity. No stone, solid mass lesion or hydronephrosis visualized. OTHER FINDINGS: None. IMPRESSION: No significant or acute findings to account for/ related to the clinical presentation. No significant interval change compared to the prior examination(s).
[2018-03-24] MEDS: Multivitamin With Minerals Tab PO SCH (13:04)
[2018-03-24] MEDS: GlipiZIDE 2.5 mg SR Tab PO SCH (13:05)
[2018-03-24] MEDS: Heparin 25,000units in D5W 25,000 UNITS/250 ML BAG IV SCH (13:12)
[2018-03-24] MEDS: Silver Sulfadiazine 1% CREAM (50 gm) TOP SCH ×2 (13:13→17:11)
[2018-03-24 16:44] LABS: BASO # 0.1 K/uL (0.0-0.2); BASO % 0.4 % (0.0-2.0); EOS % 0.2 % (0.0-4.0); HEMOGLOBIN 9.8 g/dL (12.0-16.0); LYMPH # 0.5 K/uL (1.0-4.3); LYMPH % 2.6 % (20.0-40.0); MEAN CELL VOLUME 78.2 fl (81.0-99.0); MEAN CORPUSCULAR HEMOGLOBIN 23.9 pg (27.0-31.0); MEAN CORPUSCULAR HGB CONC 30.6 g/dL (33.0-37.0); MONO # 0.8 K/uL (0.0-0.8); MONO % 4.4 % (0.0-10.0); NEUT # 16.1 K/uL (1.8-7.0); NEUT % 92.4 % (50.0-75.0); NRBC % 0.6 % (0.0-0.0); RBC 4.09 Mil/uL (3.80-5.20); RED CELL DISTRIBUTION WIDTH 22.9 % (11.5-14.5); WHITE BLOOD COUNT 17.4 K/uL (4.8-10.8)
[2018-03-24] MEDS: Proshield Plus GEL TOP SCH (16:48)
[2018-03-24 17:20] LABS: ALB/GLOB RATIO 0.8 (1.0-2.1); ALBUMIN 2.6 g/dL (3.5-5.0); ALT/SGPT 25 U/L (9-52); AST/SGOT 18 U/L (14-36); BLOOD UREA NITROGEN 55 mg/dl (7-17); CALCIUM 8.4 mg/dL (8.4-10.2); GFR AFRICAN-AMERICAN 35; GFR NON-AFRICAN AMERICAN 29
[2018-03-24 17:29] LABS: T4 4.09 ug/dl (5.5-11.0)
[2018-03-24] MEDS: Sodium Chloride 0.9% 1,000 ML IV SCH (19:00)
[2018-03-24 19:16] LABS: CREATININE, RANDOM URINE 64.5 mg/dL
[2018-03-24 20:08] LABS: B-TYPE NATRIURETIC PEPTIDE 37600 pg/ml (0-900)
--- NOTE | 2018-03-24 20:22 | CP.PCM.PN ---
Subjective - Date & Time of Evaluation Date of Evaluation: 03/24/18 Time of Evaluation: 22:22 - Subjective Subjective: WBC 17K Dec pain?? Creat 1.7 Objective - Vital Signs/Intake and Output Vital Signs (last 24 hours): Temp Pulse Resp BP Pulse Ox 97.1 F L 72 20 127/66 99 03/24/18 16:45 03/24/18 16:45 03/24/18 16:45 03/24/18 16:45 03/24/18 16:45 - Medications Medications: Current Medications Acetaminophen (Tylenol 325mg Tab) 650 mg PO Q4 PRN PRN Reason: Pain, Mild (1-3) Aspirin (Aspirin) 325 mg PO DAILY [facility] Last Admin: 03/24/18 13:11 Dose: 325 mg Bisacodyl (Dulcolax) 10 mg [place] DAILY PRN PRN Reason: Constipation Clopidogrel Bisulfate (Plavix) 75 mg PO DAILY [facility] Last Admin: 03/24/18 13:05 Dose: 75 mg Dimethicone (Proshield Plus Skin Protectant) 1 applic TOP QSHIFT [facility] Last Admin: 03/24/18 16:48 Dose: 1 applic Docusate Sodium (Colace) 100 mg PO DAILY [facility] Last Admin: 03/24/18 13:06 Dose: Not Given Escitalopram Oxalate (Lexapro) 5 mg PO HS [facility] Last Admin: 03/23/18 22:27 Dose: 5 mg Famotidine (Pepcid) 20 mg PO DAILY [facility] Last Admin: 03/24/18 13:06 Dose: 20 mg Ferrous Sulfate (Feosol) 325 mg PO DAILY [facility] Last Admin: 03/24/18 13:05 Dose: 325 mg Glipizide (Glucotrol Xl) 2.5 mg PO DAILY [facility] Last Admin: 03/24/18 13:05 Dose: 2.5 mg Cefepime HCl 1 gm/ Sodium (Chloride) 100 mls @ 100 mls/hr IVPB DAILY [facility] PRN Reason: Protocol Last Admin: 03/24/18 08:59 Dose: 100 mls/hr Sodium Chloride (Sodium Chloride 0.9%) 1,000 mls @ 100 mls/hr IV .Q10H [facility] Stop: 03/25/18 17:28 Isosorbide Mononitrate (Imdur Er) 30 mg PO DAILY [facility] Last Admin: 03/24/18 13:05 Dose: 30 mg Magnesium Hydroxide (Milk Of Magnesia) 30 ml PO HS PRN PRN Reason: Constipation Memantine (Namenda) 5 mg PO BID [facility] Last Admin: 03/24/18 16:48 Dose: 5 mg Metoprolol Tartrate (Lopressor) 25 mg PO Q12 [facility] Last Admin: 03/24/18 13:06 Dose: 25 mg Multivitamins/Minerals (Therapeutic-M Tab) 1 tab PO DAILY [facility] Last Admin: 03/24/18 13:04 Dose: 1 tab Silver Sulfadiazine (Silvadene 1% 50 Gm) 1 applic TOP BID [facility] Last Admin: 03/24/18 17:11 Dose: Not Given Sodium Hypochlorite (Dakins Solution 0.125%) 1 appl TOP QD7 [facility] Last Admin: 03/24/18 13:12 Dose: Not Given Tramadol HCl (Ultram) 50 mg PO Q6 PRN PRN Reason: Pain, moderate (4-7) Last Admin: 03/24/18 16:53 Dose: 50 mg - Labs Labs: 03/24/18 16:25 03/24/18 16:25 PT 15.1 Seconds (9.8-13.1) H 03/23/18 17:52 INR 1.4 (0.9-1.2) H 03/23/18 17:52 APTT 46.7 Seconds (25.6-37.1) H D 03/24/18 16:25 - Respiratory Exam Respiratory Exam: NORMAL BREATHING PATTERN - Cardiovascular Exam Cardiovascular Exam: REGULAR RHYTHM - GI/Abdominal Exam GI & Abdominal Exam: Normal Bowel Sounds Assessment and Plan - Assessment and Plan (Free Text) Assessment: PVD Significant Periphereal Arterial Occlusive dx S/P Angioplasty Stents Low ext edema cellulitis Gangrene Local wound care IV ABX DAPT Heparin ID Podiatry Surgery Physiatry Cardiology ABBEY/ CKD creat 1.7 IVF Nephrology US Kidney WNl Angiogram??? Psychiatric dx?? Ultram?? Adj disorder Depression Psychiatry Psychology SSRI D/C Tramadol and Namenda Hx CHF Diastolic CAD stress thalium scarring ischemia?? cardiac cath refused?? Cardiology Hx COPD L Pleural effusion Pulmonary Hx Anemia Chronic dx ASA d/c as outpt due to dec Hbg S/P Procrit transfusion NIDDM Thyroid dx
--- NOTE | 2018-03-24 22:57 | PN ---
DATE: 03/24/2018 ENDO FOLLOWUP LOCATION: Room 668. SUBJECTIVE: This is a 77-year-old female with recent uncontrolled type 2 diabetes, presenting here with severe gangrene and peripheral arterial vasculopathy in both lower extremities and is now being followed closely for metabolic management. Her glycemic levels have remained improved as noted, and the glucose values have ranged from 119 to 121 and 156 mg/dL. Her latest chemistries showed a BUN of 48, sodium 139, potassium 4.5, chloride 103, CO2 21, glucose 138, and creatinine 1.7. So at this time, we will continue the glipizide given as 2.5 mg once daily as ordered. We have temporarily discontinued her Tapazole medication because of the presence of subclinical hypothyroidism as noted thereof. We will obtain serial thyroid studies and titrate her dose regimen accordingly. We will follow. Lucia Corley MD
[2018-03-25] MEDS: Sodium Chloride 0.9% 1,000 ML IV SCH ×2 (01:12→05:22)
[2018-03-25] MEDS ORDERED: Heparin 25,000units in D5W 25,000 UNITS/250 ML BAG IV SCH ×2 (02:15→20:30)
--- NOTE | 2018-03-25 07:46 | CP.PCM.PN ---
Subjective - Date & Time of Evaluation Date of Evaluation: 03/25/18 Time of Evaluation: 07:44 - Subjective Subjective: General surgery progress note for Dr. Woods-Agustina Fontana, PGY-2 Pt S & E at bedside at 0650 Pt resting comfortably in bed. Reports continued pain in lower extremities. Per nursing- was refusing LE dressing changes initially, finally allow dressings to be changed. Afebrile. Tolerating diet. Objective - Vital Signs/Intake and Output Vital Signs (last 24 hours): Temp Pulse Resp BP Pulse Ox 97.5 F L 60 19 113/68 100 03/25/18 00:03 03/25/18 00:03 03/25/18 00:03 03/25/18 00:03 03/25/18 00:03 - Medications Medications: Current Medications Acetaminophen (Tylenol 325mg Tab) 650 mg PO Q4 PRN PRN Reason: Pain, Mild (1-3) Aspirin (Aspirin) 325 mg PO DAILY [facility] Last Admin: 03/24/18 13:11 Dose: 325 mg Bisacodyl (Dulcolax) 10 mg [place] DAILY PRN PRN Reason: Constipation Clopidogrel Bisulfate (Plavix) 75 mg PO DAILY [facility] Last Admin: 03/24/18 13:05 Dose: 75 mg Dimethicone (Proshield Plus Skin Protectant) 1 applic TOP QSHIFT [facility] Last Admin: 03/24/18 16:48 Dose: 1 applic Docusate Sodium (Colace) 100 mg PO DAILY [facility] Last Admin: 03/24/18 13:06 Dose: Not Given Escitalopram Oxalate (Lexapro) 5 mg PO HS [facility] Last Admin: 03/24/18 21:10 Dose: 5 mg Famotidine (Pepcid) 20 mg PO DAILY [facility] Last Admin: 03/24/18 13:06 Dose: 20 mg Ferrous Sulfate (Feosol) 325 mg PO DAILY [facility] Last Admin: 03/24/18 13:05 Dose: 325 mg Glipizide (Glucotrol Xl) 2.5 mg PO DAILY [facility] Last Admin: 03/24/18 13:05 Dose: 2.5 mg Cefepime HCl 1 gm/ Sodium (Chloride) 100 mls @ 100 mls/hr IVPB DAILY [facility] PRN Reason: Protocol Last Admin: 03/24/18 08:59 Dose: 100 mls/hr Sodium Chloride (Sodium Chloride 0.9%) 1,000 mls @ 100 mls/hr IV .Q10H [facility] Stop: 03/25/18 17:28 Last Admin: 03/25/18 05:22 Dose: Not Given Heparin Sodium/Dextrose (Heparin 25,000 Units/250ml In D5w) 25,000 units in 250 mls @ 9 mls/hr IV .Q24H [facility] PRN Reason: Protocol Last Admin: 03/25/18 02:30 Dose: 9 mls/hr Isosorbide Mononitrate (Imdur Er) 30 mg PO DAILY [facility] Last Admin: 03/24/18 13:05 Dose: 30 mg Magnesium Hydroxide (Milk Of Magnesia) 30 ml PO HS PRN PRN Reason: Constipation Metoprolol Tartrate (Lopressor) 25 mg PO Q12 [facility] Last Admin: 03/24/18 21:09 Dose: 25 mg Multivitamins/Minerals (Therapeutic-M Tab) 1 tab PO DAILY [facility] Last Admin: 03/24/18 13:04 Dose: 1 tab Silver Sulfadiazine (Silvadene 1% 50 Gm) 1 applic TOP BID [facility] Last Admin: 03/24/18 17:11 Dose: Not Given Sodium Hypochlorite (Dakins Solution 0.125%) 1 appl TOP QD7 [facility] Last Admin: 03/24/18 13:12 Dose: Not Given - Labs Labs: 03/24/18 16:25 03/24/18 16:25 PT 15.1 Seconds (9.8-13.1) H 03/23/18 17:52 INR 1.4 (0.9-1.2) H 03/23/18 17:52 APTT 51.6 Seconds (25.6-37.1) H 03/25/18 01:12 - Constitutional Appears: Non-toxic, No Acute Distress - Head Exam Head Exam: ATRAUMATIC, NORMAL INSPECTION, NORMOCEPHALIC - Eye Exam Eye Exam: EOMI, Normal appearance - ENT Exam ENT Exam: Mucous Membranes Moist, Normal Exam - Neck Exam Neck Exam: Full ROM, Normal Inspection - Respiratory Exam Respiratory Exam: NORMAL BREATHING PATTERN - Cardiovascular Exam Cardiovascular Exam: REGULAR RHYTHM - GI/Abdominal Exam GI & Abdominal Exam: Soft. absent: Distended (obese) - Extremities Exam Extremities Exam: absent: Normal Inspection Additional comments: Refusing physical exam- LE with dressings in place- clean/dry/intact, small sores over visible skin proximal to dressings - Neurological Exam Neurological Exam: Alert, Awake, CN II-XII Intact, Oriented x3 - Psychiatric Exam Psychiatric exam: Normal Affect, Normal Mood - Skin Skin Exam: Dry, Normal Color, Warm Assessment and Plan - Assessment and Plan (Free Text) Assessment: 77 y/o F w/ PVD, non-healing necrotic B/L LE wounds Wound cx pos for Providencia Rettgeri & E coli Plan: Cont hep drip as per cardio IV Abx as per ID Daily dressing changes by podiatry/wound care FU angio with Dr. Damon Rec revascularization prior to AKA vs. BKA for improved wound healing Nephro following Will follow Will PATTI attending Marizol, PGY-2
[2018-03-25] MEDS: Multivitamin With Minerals Tab PO SCH (09:10)
[2018-03-25] MEDS: GlipiZIDE 2.5 mg SR Tab PO SCH (09:11)
[2018-03-25] MEDS: Cefepime 1 GM in Sodium Chloride 0.9% 100 ML IVPB SCH (09:14)
[2018-03-25] MEDS: Silver Sulfadiazine 1% CREAM (50 gm) TOP SCH ×2 (09:27→16:04)
--- NOTE | 2018-03-25 11:38 | CP.PCM.PN ---
Subjective - Date & Time of Evaluation Date of Evaluation: 03/25/18 Time of Evaluation: 10:00 - Subjective Subjective: events noted iv rx in progress Objective - Vital Signs/Intake and Output Vital Signs (last 24 hours): Temp Pulse Resp BP Pulse Ox 97 F L 86 18 114/70 93 L 03/25/18 08:52 03/25/18 09:13 03/25/18 08:52 03/25/18 09:13 03/25/18 08:52 - Medications Medications: Current Medications Acetaminophen (Tylenol 325mg Tab) 650 mg PO Q4 PRN PRN Reason: Pain, Mild (1-3) Aspirin (Aspirin) 325 mg PO DAILY [facility] Last Admin: 03/25/18 09:20 Dose: 325 mg Bisacodyl (Dulcolax) 10 mg [place] DAILY PRN PRN Reason: Constipation Clopidogrel Bisulfate (Plavix) 75 mg PO DAILY [facility] Last Admin: 03/25/18 09:12 Dose: 75 mg Dimethicone (Proshield Plus Skin Protectant) 1 applic TOP QSHIFT [facility] Last Admin: 03/24/18 16:48 Dose: 1 applic Docusate Sodium (Colace) 100 mg PO DAILY [facility] Last Admin: 03/25/18 09:11 Dose: 100 mg Escitalopram Oxalate (Lexapro) 5 mg PO HS [facility] Last Admin: 03/24/18 21:10 Dose: 5 mg Famotidine (Pepcid) 20 mg PO DAILY [facility] Last Admin: 03/25/18 09:10 Dose: 20 mg Ferrous Sulfate (Feosol) 325 mg PO DAILY [facility] Last Admin: 03/25/18 09:12 Dose: 325 mg Glipizide (Glucotrol Xl) 2.5 mg PO DAILY [facility] Last Admin: 03/25/18 09:11 Dose: 2.5 mg Cefepime HCl 1 gm/ Sodium (Chloride) 100 mls @ 100 mls/hr IVPB DAILY [facility] PRN Reason: Protocol Last Admin: 03/25/18 09:14 Dose: 100 mls/hr Sodium Chloride (Sodium Chloride 0.9%) 1,000 mls @ 100 mls/hr IV .Q10H [facility] Stop: 03/25/18 17:28 Last Admin: 03/25/18 05:22 Dose: Not Given Heparin Sodium/Dextrose (Heparin 25,000 Units/250ml In D5w) 25,000 units in 250 mls @ 9 mls/hr IV .Q24H [facility] PRN Reason: Protocol Last Admin: 03/25/18 02:30 Dose: 9 mls/hr Isosorbide Mononitrate (Imdur Er) 30 mg PO DAILY [facility] Last Admin: 03/25/18 09:11 Dose: 30 mg Magnesium Hydroxide (Milk Of Magnesia) 30 ml PO HS PRN PRN Reason: Constipation Metoprolol Tartrate (Lopressor) 25 mg PO Q12 [facility] Last Admin: 03/25/18 09:13 Dose: 25 mg Multivitamins/Minerals (Therapeutic-M Tab) 1 tab PO DAILY [facility] Last Admin: 03/25/18 09:10 Dose: 1 tab Silver Sulfadiazine (Silvadene 1% 50 Gm) 1 applic TOP BID [facility] Last Admin: 03/25/18 09:27 Dose: Not Given Sodium Hypochlorite (Dakins Solution 0.125%) 1 appl TOP QD7 [facility] Last Admin: 03/25/18 07:30 Dose: Not Given - Labs Labs: 03/24/18 16:25 03/24/18 16:25 PT 15.1 Seconds (9.8-13.1) H 03/23/18 17:52 INR 1.4 (0.9-1.2) H 03/23/18 17:52 APTT 51.6 Seconds (25.6-37.1) H 03/25/18 01:12 - Constitutional Appears: Non-toxic, Chronically Ill - Head Exam Head Exam: NORMOCEPHALIC - Eye Exam Eye Exam: PERRL - ENT Exam ENT Exam: Mucous Membranes Dry - Neck Exam Neck Exam: absent: Lymphadenopathy - Respiratory Exam Respiratory Exam: Decreased Breath Sounds - Cardiovascular Exam Cardiovascular Exam: REGULAR RHYTHM - GI/Abdominal Exam GI & Abdominal Exam: Distended, Soft Assessment and Plan (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
--- NOTE | 2018-03-25 11:47 | CP.PCM.PN ---
Subjective - Date & Time of Evaluation Date of Evaluation: 03/25/18 Time of Evaluation: 11:46 - Subjective Subjective: patient M bed no new events reported appears to be comfortable no chest pain no vomiting Objective - Vital Signs/Intake and Output Vital Signs (last 24 hours): Temp Pulse Resp BP Pulse Ox 97 F L 86 18 114/70 93 L 03/25/18 08:52 03/25/18 09:13 03/25/18 08:52 03/25/18 09:13 03/25/18 08:52 - Medications Medications: Current Medications Acetaminophen (Tylenol 325mg Tab) 650 mg PO Q4 PRN PRN Reason: Pain, Mild (1-3) Aspirin (Aspirin) 325 mg PO DAILY [facility] Last Admin: 03/25/18 09:20 Dose: 325 mg Bisacodyl (Dulcolax) 10 mg [place] DAILY PRN PRN Reason: Constipation Clopidogrel Bisulfate (Plavix) 75 mg PO DAILY [facility] Last Admin: 03/25/18 09:12 Dose: 75 mg Dimethicone (Proshield Plus Skin Protectant) 1 applic TOP QSHIFT [facility] Last Admin: 03/24/18 16:48 Dose: 1 applic Docusate Sodium (Colace) 100 mg PO DAILY [facility] Last Admin: 03/25/18 09:11 Dose: 100 mg Escitalopram Oxalate (Lexapro) 5 mg PO HS [facility] Last Admin: 03/24/18 21:10 Dose: 5 mg Famotidine (Pepcid) 20 mg PO DAILY [facility] Last Admin: 03/25/18 09:10 Dose: 20 mg Ferrous Sulfate (Feosol) 325 mg PO DAILY [facility] Last Admin: 03/25/18 09:12 Dose: 325 mg Glipizide (Glucotrol Xl) 2.5 mg PO DAILY [facility] Last Admin: 03/25/18 09:11 Dose: 2.5 mg Cefepime HCl 1 gm/ Sodium (Chloride) 100 mls @ 100 mls/hr IVPB DAILY [facility] PRN Reason: Protocol Last Admin: 03/25/18 09:14 Dose: 100 mls/hr Heparin Sodium/Dextrose (Heparin 25,000 Units/250ml In D5w) 25,000 units in 250 mls @ 9 mls/hr IV .Q24H [facility] PRN Reason: Protocol Last Admin: 03/25/18 02:30 Dose: 9 mls/hr Dextrose/Sodium Chloride (Dextrose 5%/0.45% Ns 1000 Ml) 1,000 mls @ 60 mls/hr IV .[id number] [facility] Stop: 03/26/18 11:43 Isosorbide Mononitrate (Imdur Er) 30 mg PO DAILY [facility] Last Admin: 03/25/18 09:11 Dose: 30 mg Magnesium Hydroxide (Milk Of Magnesia) 30 ml PO HS PRN PRN Reason: Constipation Metoprolol Tartrate (Lopressor) 25 mg PO Q12 [facility] Last Admin: 03/25/18 09:13 Dose: 25 mg Multivitamins/Minerals (Therapeutic-M Tab) 1 tab PO DAILY [facility] Last Admin: 03/25/18 09:10 Dose: 1 tab Silver Sulfadiazine (Silvadene 1% 50 Gm) 1 applic TOP BID [facility] Last Admin: 03/25/18 09:27 Dose: Not Given Sodium Hypochlorite (Dakins Solution 0.125%) 1 appl TOP QD7 [facility] Last Admin: 03/25/18 07:30 Dose: Not Given - Labs Labs: 03/24/18 16:25 03/24/18 16:25 PT 15.1 Seconds (9.8-13.1) H 03/23/18 17:52 INR 1.4 (0.9-1.2) H 03/23/18 17:52 APTT 51.6 Seconds (25.6-37.1) H 03/25/18 01:12 - Constitutional Appears: No Acute Distress - Eye Exam Eye Exam: Conjunctival injection - ENT Exam ENT Exam: Mucous Membranes Dry - Neck Exam Neck Exam: absent: Lymphadenopathy - Respiratory Exam Respiratory Exam: NORMAL BREATHING PATTERN. absent: Chest Wall Tenderness - Cardiovascular Exam Cardiovascular Exam: absent: Gallop, JVD, Rubs - GI/Abdominal Exam GI & Abdominal Exam: Soft, Normal Bowel Sounds - Extremities Exam Extremities Exam: absent: Calf Tenderness - Back Exam Back Exam: absent: CVA tenderness (L), CVA tenderness (R) - Neurological Exam Neurological Exam: Altered - Skin Skin Exam: absent: Cyanosis Assessment and Plan (1) Bilateral leg ulcer Status: Acute (2) ABBEY (acute kidney injury) Assessment & Plan: Patient appeared to have acute kidney injury perhaps related to multifactorial. appeared to be dehydrated. Bilateral leg ulcers Diabetes mellitus Recommendation and plan IV fluid D5 W about 60 mL/h Discontinue Lasix and diuretics Antibiotics as adjustment per renal dose. Follow-up blood test Status: Acute
[2018-03-25 11:51] LABS: ALB/GLOB RATIO 0.8 (1.0-2.1); ALBUMIN 2.4 g/dL (3.5-5.0); CALCIUM 7.9 mg/dL (8.4-10.2)
[2018-03-25 11:58] LABS: HEMOGLOBIN 9.1 g/dL (12.0-16.0); MEAN CELL VOLUME 77.9 fl (81.0-99.0); MEAN CORPUSCULAR HEMOGLOBIN 24.6 pg (27.0-31.0); MEAN CORPUSCULAR HGB CONC 31.5 g/dL (33.0-37.0); RBC 3.7 Mil/uL (3.80-5.20); RED CELL DISTRIBUTION WIDTH 23.1 % (11.5-14.5); WHITE BLOOD COUNT 18.8 K/uL (4.8-10.8)
--- NOTE | 2018-03-25 12:38 | CP.PCM.PN ---
Subjective - Date & Time of Evaluation Date of Evaluation: 03/25/18 Time of Evaluation: 12:36 - Subjective Subjective: Podiatry Consult Note for Dr. Briseno: 77 year old female patient seen and evaluated for bilateral lower extremity ulcerations. Patient agitated during dressing changes and states she is in severe pain. Denies N/V/F/SOB/CP. Denies any other pedal complaints at this time. Objective - Vital Signs/Intake and Output Vital Signs (last 24 hours): Temp Pulse Resp BP Pulse Ox 97 F L 86 18 114/70 93 L 03/25/18 08:52 03/25/18 09:13 03/25/18 08:52 03/25/18 09:13 03/25/18 08:52 - Medications Medications: Current Medications Acetaminophen (Tylenol 325mg Tab) 650 mg PO Q4 PRN PRN Reason: Pain, Mild (1-3) Aspirin (Aspirin) 325 mg PO DAILY [facility] Last Admin: 03/25/18 09:20 Dose: 325 mg Bisacodyl (Dulcolax) 10 mg [place] DAILY PRN PRN Reason: Constipation Clopidogrel Bisulfate (Plavix) 75 mg PO DAILY [facility] Last Admin: 03/25/18 09:12 Dose: 75 mg Dimethicone (Proshield Plus Skin Protectant) 1 applic TOP QSHIFT [facility] Last Admin: 03/24/18 16:48 Dose: 1 applic Docusate Sodium (Colace) 100 mg PO DAILY [facility] Last Admin: 03/25/18 09:11 Dose: 100 mg Escitalopram Oxalate (Lexapro) 5 mg PO HS [facility] Last Admin: 03/24/18 21:10 Dose: 5 mg Famotidine (Pepcid) 20 mg PO DAILY [facility] Last Admin: 03/25/18 09:10 Dose: 20 mg Ferrous Sulfate (Feosol) 325 mg PO DAILY [facility] Last Admin: 03/25/18 09:12 Dose: 325 mg Glipizide (Glucotrol Xl) 2.5 mg PO DAILY [facility] Last Admin: 03/25/18 09:11 Dose: 2.5 mg Cefepime HCl 1 gm/ Sodium (Chloride) 100 mls @ 100 mls/hr IVPB DAILY [facility] PRN Reason: Protocol Last Admin: 03/25/18 09:14 Dose: 100 mls/hr Heparin Sodium/Dextrose (Heparin 25,000 Units/250ml In D5w) 25,000 units in 250 mls @ 9 mls/hr IV .Q24H [facility] PRN Reason: Protocol Last Admin: 03/25/18 02:30 Dose: 9 mls/hr Dextrose/Sodium Chloride (Dextrose 5%/0.45% Ns 1000 Ml) 1,000 mls @ 60 mls/hr IV .[id number] [facility] Stop: 03/26/18 11:43 Isosorbide Mononitrate (Imdur Er) 30 mg PO DAILY [facility] Last Admin: 03/25/18 09:11 Dose: 30 mg Magnesium Hydroxide (Milk Of Magnesia) 30 ml PO HS PRN PRN Reason: Constipation Metoprolol Tartrate (Lopressor) 25 mg PO Q12 [facility] Last Admin: 03/25/18 09:13 Dose: 25 mg Multivitamins/Minerals (Therapeutic-M Tab) 1 tab PO DAILY [facility] Last Admin: 03/25/18 09:10 Dose: 1 tab Silver Sulfadiazine (Silvadene 1% 50 Gm) 1 applic TOP BID [facility] Last Admin: 03/25/18 09:27 Dose: Not Given Sodium Hypochlorite (Dakins Solution 0.125%) 1 appl TOP QD7 [facility] Last Admin: 03/25/18 07:30 Dose: Not Given - Labs Labs: 03/25/18 09:40 03/25/18 09:40 PT 15.1 Seconds (9.8-13.1) H 03/23/18 17:52 INR 1.4 (0.9-1.2) H 03/23/18 17:52 APTT 51.6 Seconds (25.6-37.1) H 03/25/18 01:12 - Constitutional Appears: Well, Non-toxic - Head Exam Head Exam: ATRAUMATIC, NORMOCEPHALIC - Extremities Exam Additional comments: Vasc: DP/PT pulses non-palpable, Temp gradient cool to cool, Cap refill delayed to digits/not attainable due to necrosis of 2-5 on right foot Ortho: Bilateral lower extremities painful upon palpation Neuro: Gross sensation intact and protective sensation diminished bilaterally Derm: Multiple ulcerations noted to the entire lower extremity with mixture of fibrotic/necrotic wound base: Erythema to the entire lower extremity with R>L, significantly malodorous, all sites (-) for purulence, probe to bone, tunneling or undermining. RIGHT: 1) Necrotic right heel eschar unstagable with no drainage noted measuring 9.0 cm X 7.0 cm 2) Circumferential ulceration to the medial posterior aspect measuring 21 cm in length, fibrotic edges, peroneal tendon exposed, drainage noted 3) necrotic 2nd and 3rd digits till the level of the MPTJ, dorsally necrotic 4th digit t the level of the MTPJ 4) fibro/necrotic ulceration to the dorsal aspect of the hallux at the PIPJ measuring 3.0 cmX 2.5 cm 5) fibro/necrotic ulceration to the dorsal forefoot measuring 2.5 cm X 1.8 cm 6) fibro/necrotic ulceration noted to the medial ankle distal to the medial malleolus measuring 4. 0 X 2.0 cm, + fluctuance noted 7) fibro/necrotic ulceration to the anterior tibial tuberosity measuring 3.0 X 1.0 cm 8) circular ulceration noted to the medial aspect of the leg at the level of the tibial tuberosity measuring 2.4 cm X 2.6 cm with 80% graular and 20% fibrotic bases, surrounding erythema 9) multiple stable eschars to the knee 10) New wound noted to the right hallux with minimal bleeding LEFT: 1) echar to the heel, necrotic, measuring 5.0 cm X 6.0 cm 2) fibro/necrotic ulceration to the dorsal aspect of the foot, with fibrotic edges, positive drainage 3) fibro/necrotic ulceration to the medial aspect of the leg measuring 5.0 c, X 3.0 cm 4) gangranous changes to the tip of the hallux, and to the dorsum of the 2nd digit 5) multipe eschars to the tibial tuberosity, stable in nature - Neurological Exam Neurological Exam: Alert, Awake, Oriented x3 - Psychiatric Exam Psychiatric exam: Agitated Assessment and Plan - Assessment and Plan (Free Text) Assessment: 77 year old female patient seen and evaluated at bedside for bilateral lower extremity ulcerations. Plan: Patient seen and evaluated Plan discussed in detail with Dr. Briseno Patient chart, labs and vitals reviewed: Afebrile, with WBC trending upward 18.8 (03/25/18) Continue IV abx per ID reccs F/U with Dr. Damon regarding peripheral angio for BKA planning X-ray foot bilaterally: No signs of acute osseous changes. Proximal tib-fibula X-ray: multiple deep ulcers, no evidence of osteomyelitis. Bilateral wound culture 03/20/18: E. Coli (Final) Dressing change to bilateral lower extremities with Bernardino Corrigan, ZAIDA, and [facility] Podiatry will continue to follow while patient is in house
[2018-03-25] MEDS: Dextrose 5%/0.45% NS 1,000 ML IV SCH (12:45)
--- NOTE | 2018-03-25 17:22 | CT ---
Date of service: 03/25/2018 PROCEDURE: CT HEAD WITHOUT CONTRAST. HISTORY: Lethargy COMPARISON: Noncontrast head CT 01/31/2018. TECHNIQUE: Axial computed tomography images were obtained through the head/brain without intravenous contrast. Radiation dose: Total exam DLP = 777.90 mGy-cm. This CT exam was performed using one or more of the following dose reduction techniques: Automated exposure control, adjustment of the mA and/or kV according to patient size, and/or use of iterative reconstruction technique. FINDINGS: HEMORRHAGE: No intracranial hemorrhage. 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 No mass-effect is identified and there is no suspicious extra-axial fluid collection appreciated the posterior fossa contents stable including the brainstem. VENTRICLES: Unremarkable. No hydrocephalus. CALVARIUM: There is no fracture identified. Trace gas is identified within knee left temporal bone inferior to the middle cranial fossa. Further, gas is identified in the left manager athletics space minimally as well as in the bilateral cavernous sinuses. No manager athletics space fluid collection is appreciable to suggest an abscess. Limited right mastoid effusions are identified but none are seen at the left and the paranasal sinuses appear well aerated and developed as captured. OTHER FINDINGS: None. 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 However, limited emphysema is seen at the bilateral cavernous sinuses as well as the left temporal bone and left manager athletics space without fracture appreciable. Consider potential penetrating trauma or even gas from intravenous line. Further clinical correlation advised.
[2018-03-25 18:46] LABS: INR 1.2; PROTHROMBIN TIME 13.5 Seconds (9.8-13.1)
[2018-03-25 19:06] LABS: PARTIAL THROMBOPLASTIN TIME 125.9 Seconds (25.6-37.1)
--- NOTE | 2018-03-25 19:15 | CP.PCM.CON ---
History of Present Illness - History of Present Illness History of Present Illness: Dr Berrios PMR consultation on Pat Philip, born 1940. 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 She has failed conservative care and at this point is in need for amputation. It would seem that an AKA is going to be necessary on the right. She may get kaitlynn and only require a left BKA. She has increased B/CR and is in poor overall health Past Patient History - Infectious Disease Hx of Infectious Diseases: None - Past Medical History & Family History Past Medical History?: Yes - Past Social History Smoking Status: Former Smoker - CARDIAC Hx Congestive Heart Failure: Yes Hx Hypercholesterolemia: Yes Hx Hypertension: Yes Hx Peripheral Edema: Yes - PULMONARY Hx Bronchitis: Yes Hx Chronic Obstructive Pulmonary Disease (COPD): Yes Hx Pneumonia: Yes - NEUROLOGICAL Other/Comment: Paresthesias of both feet - HEENT Hx HEENT Problems: No - RENAL Hx Chronic Kidney Disease: Yes - ENDOCRINE/METABOLIC Hx Hyperthyroidism: Yes - HEMATOLOGICAL/ONCOLOGICAL Hx AIDS: No Hx Anemia: Yes Hx Human Immunodeficiency Virus (HIV): No - INTEGUMENTARY Hx Dermatological Problems: Yes Hx Cellulitis: Yes - MUSCULOSKELETAL/RHEUMATOLOGICAL Hx Musculoskeletal Disorders: Yes Hx Falls: Yes - GASTROINTESTINAL Hx Gastrointestinal Disorders: No - GENITOURINARY/GYNECOLOGICAL Hx Genitourinary Disorders: No - PSYCHIATRIC Hx Psychophysiologic Disorder: Yes Hx Anxiety: Yes Hx Substance Use: No - SURGICAL HISTORY Hx Appendectomy: Yes Other/Comment: kidney stone removal - ANESTHESIA Hx Anesthesia: Yes Hx Anesthesia Reactions: No Hx Malignant Hyperthermia: No Meds Allergies/Adverse Reactions: Allergies Allergy/AdvReac Type Severity Reaction Status Date / Time No Known Allergies Allergy Verified 03/20/18 12:54 - Medications Medications: Current Medications Acetaminophen (Tylenol 325mg Tab) 650 mg PO Q4 PRN PRN Reason: Pain, Mild (1-3) Aspirin (Aspirin) 325 mg PO DAILY [facility] Last Admin: 03/25/18 09:20 Dose: 325 mg Bisacodyl (Dulcolax) 10 mg [place] DAILY PRN PRN Reason: Constipation Clopidogrel Bisulfate (Plavix) 75 mg PO DAILY [facility] Last Admin: 03/25/18 09:12 Dose: 75 mg Dimethicone (Proshield Plus Skin Protectant) 1 applic TOP QSHIFT [facility] Last Admin: 03/24/18 16:48 Dose: 1 applic Docusate Sodium (Colace) 100 mg PO DAILY [facility] Last Admin: 03/25/18 09:11 Dose: 100 mg Escitalopram Oxalate (Lexapro) 5 mg PO HS [facility] Last Admin: 03/24/18 21:10 Dose: 5 mg Famotidine (Pepcid) 20 mg PO DAILY [facility] Last Admin: 03/25/18 09:10 Dose: 20 mg Ferrous Sulfate (Feosol) 325 mg PO DAILY [facility] Last Admin: 03/25/18 09:12 Dose: 325 mg Cefepime HCl 1 gm/ Sodium (Chloride) 100 mls @ 100 mls/hr IVPB DAILY [facility] PRN Reason: Protocol Last Admin: 03/25/18 09:14 Dose: 100 mls/hr Heparin Sodium/Dextrose (Heparin 25,000 Units/250ml In D5w) 25,000 units in 250 mls @ 9 mls/hr IV .Q24H [facility] PRN Reason: Protocol Last Admin: 03/25/18 02:30 Dose: 9 mls/hr Dextrose/Sodium Chloride (Dextrose 5%/0.45% Ns 1000 Ml) 1,000 mls @ 60 mls/hr IV .[id number] [facility] Stop: 03/26/18 11:43 Last Admin: 03/25/18 12:45 Dose: 60 mls/hr Isosorbide Mononitrate (Imdur Er) 30 mg PO DAILY [facility] Last Admin: 03/25/18 09:11 Dose: 30 mg Magnesium Hydroxide (Milk Of Magnesia) 30 ml PO HS PRN PRN Reason: Constipation Metoprolol Tartrate (Lopressor) 25 mg PO Q12 [facility] Last Admin: 03/25/18 09:13 Dose: 25 mg Multivitamins/Minerals (Therapeutic-M Tab) 1 tab PO DAILY [facility] Last Admin: 03/25/18 09:10 Dose: 1 tab Silver Sulfadiazine (Silvadene 1% 50 Gm) 1 applic TOP BID [facility] Last Admin: 03/25/18 16:04 Dose: Not Given Sodium Hypochlorite (Dakins Solution 0.125%) 1 appl TOP QD7 [facility] Last Admin: 03/25/18 07:30 Dose: Not Given Physical Exam - Constitutional Appears: Other (ill and weak) - Head Exam Head Exam: ATRAUMATIC Results - Vital Signs Recent Vital Signs: Last Vital Signs Temp 97.9 F 03/25/18 16:57 Pulse 89 03/25/18 16:57 Resp 20 03/25/18 16:57 BP 114/56 L 03/25/18 16:57 Pulse Ox 95 03/25/18 16:57 - Labs Result Diagrams: 03/25/18 09:40 03/25/18 09:40 Labs: Laboratory Results - last 24 hr 03/21/18 03/23/18 03/24/18 17:40 16:22 16:00 WBC RBC Hgb Hct MCV MCH MCHC RDW Plt Count Total Counted Neutrophils % (Manual) Band Neutrophils % Lymphocytes % (Manual) Reactive Lymphs % Monocytes % (Manual) Eosinophils % (Manual) Basophils % (Manual) Metamyelocytes % Myelocytes % Promyelocytes % Blast Cells % Plasma Cell % (Manual) Nucleated RBC % Hypersegmented Polys Smudge Cells Toxic Granulation Dohle Bodies Valerio Rods Platelet Estimate Plt Clumps, EDTA Large Platelets Giant Platelets RBC Morphology Polychromasia Hypochromasia (manual) Poikilocytosis (manual Basophilic Stippling Anisocytosis (manual) Microcytosis (manual) Macrocytosis (manual) Spherocytes Sickle Cells Target Cells Tear Drop Cells Ovalocytes Stomatocytes Helmet Cells [place] Bodies [place] Cells Acanthocytes (Spur) Rouleaux Schistocytes PT INR APTT Sodium Potassium Chloride Carbon Dioxide Anion Gap BUN Creatinine Est GFR ( Amer) Est GFR (Non-Af Amer) POC Glucose (mg/dL) Random Glucose Calcium Total Bilirubin AST ALT Alkaline Phosphatase NT-Pro-B Natriuret Pep Total Protein Albumin Globulin Albumin/Globulin Ratio Urine Eosinophils Negative Ur Random Creatinine 64.5 Ur Random Sodium 36 Crossmatch See Detail 03/24/18 03/24/18 03/25/18 16:25 16:25 01:12 WBC RBC Hgb Hct MCV MCH MCHC RDW Plt Count Total Counted Cancelled Neutrophils % (Manual) Cancelled Band Neutrophils % Cancelled Lymphocytes % (Manual) Cancelled Reactive Lymphs % Cancelled Monocytes % (Manual) Cancelled Eosinophils % (Manual) Cancelled Basophils % (Manual) Cancelled Metamyelocytes % Cancelled Myelocytes % Cancelled Promyelocytes % Cancelled Blast Cells % Cancelled Plasma Cell % (Manual) Cancelled Nucleated RBC % Cancelled Hypersegmented Polys Cancelled Smudge Cells Cancelled Toxic Granulation Cancelled Dohle Bodies Cancelled Valerio Rods Cancelled Platelet Estimate Cancelled Plt Clumps, EDTA Cancelled Large Platelets Cancelled Giant Platelets Cancelled RBC Morphology Cancelled Polychromasia Cancelled Hypochromasia (manual) Cancelled Poikilocytosis (manual Cancelled Basophilic Stippling Cancelled Anisocytosis (manual) Cancelled Microcytosis (manual) Cancelled Macrocytosis (manual) Cancelled Spherocytes Cancelled Sickle Cells Cancelled Target Cells Cancelled Tear Drop Cells Cancelled Ovalocytes Cancelled Stomatocytes Cancelled Helmet Cells Cancelled [place] Bodies Cancelled Jose Cells Cancelled Acanthocytes (Spur) Cancelled Rouleaux Cancelled Schistocytes Cancelled PT INR APTT 51.6 H Sodium Potassium Chloride Carbon Dioxide Anion Gap BUN Creatinine Est GFR ( Amer) Est GFR (Non-Af Amer) POC Glucose (mg/dL) Random Glucose Calcium Total Bilirubin AST ALT Alkaline Phosphatase NT-Pro-B Natriuret Pep 83877 H Total Protein Albumin Globulin Albumin/Globulin Ratio Urine Eosinophils Ur Random Creatinine Ur Random Sodium Crossmatch 03/25/18 03/25/18 03/25/18 06:02 09:40 09:40 WBC 18.8 H RBC 3.70 L Hgb 9.1 L Hct 28.8 L MCV 77.9 L MCH 24.6 L MCHC 31.5 L RDW 23.1 H Plt Count 403 H Total Counted Neutrophils % (Manual) Band Neutrophils % Lymphocytes % (Manual) Reactive Lymphs % Monocytes % (Manual) Eosinophils % (Manual) Basophils % (Manual) Metamyelocytes % Myelocytes % Promyelocytes % Blast Cells % Plasma Cell % (Manual) Nucleated RBC % Hypersegmented Polys Smudge Cells Toxic Granulation Dohle Bodies Valerio Rods Platelet Estimate Plt Clumps, EDTA Large Platelets Giant Platelets RBC Morphology Polychromasia Hypochromasia (manual) Poikilocytosis (manual Basophilic Stippling Anisocytosis (manual) Microcytosis (manual) Macrocytosis (manual) Spherocytes Sickle Cells Target Cells Tear Drop Cells Ovalocytes Stomatocytes Helmet Cells [place] Bodies [place] Cells Acanthocytes (Spur) Rouleaux Schistocytes PT INR APTT Sodium 139 Potassium 4.1 Chloride 106 Carbon Dioxide 19 L Anion Gap 18 BUN 53 H Creatinine 1.7 H Est GFR ( Amer) 35 Est GFR (Non-Af Amer) 29 POC Glucose (mg/dL) 58 L Random Glucose 62 L Calcium 7.9 L Total Bilirubin 1.2 AST 25 ALT 29 Alkaline Phosphatase 88 NT-Pro-B Natriuret Pep Total Protein 5.4 L Albumin 2.4 L Globulin 3.1 Albumin/Globulin Ratio 0.8 L Urine Eosinophils Ur Random Creatinine Ur Random Sodium Crossmatch 03/25/18 03/25/18 03/25/18 11:06 15:34 16:20 WBC RBC Hgb Hct MCV MCH MCHC RDW Plt Count Total Counted Neutrophils % (Manual) Band Neutrophils % Lymphocytes % (Manual) Reactive Lymphs % Monocytes % (Manual) Eosinophils % (Manual) Basophils % (Manual) Metamyelocytes % Myelocytes % Promyelocytes % Blast Cells % Plasma Cell % (Manual) Nucleated RBC % Hypersegmented Polys Smudge Cells Toxic Granulation Dohle Bodies Valerio Rods Platelet Estimate Plt Clumps, EDTA Large Platelets Giant Platelets RBC Morphology Polychromasia Hypochromasia (manual) Poikilocytosis (manual Basophilic Stippling Anisocytosis (manual) Microcytosis (manual) Macrocytosis (manual) Spherocytes Sickle Cells Target Cells Tear Drop Cells Ovalocytes Stomatocytes Helmet Cells [place] Bodies [place] Cells Acanthocytes (Spur) Rouleaux Schistocytes PT INR APTT Sodium Potassium Chloride Carbon Dioxide Anion Gap BUN Creatinine Est GFR ( Amer) Est GFR (Non-Af Amer) POC Glucose (mg/dL) 72 68 77 Random Glucose Calcium Total Bilirubin AST ALT Alkaline Phosphatase NT-Pro-B Natriuret Pep Total Protein Albumin Globulin Albumin/Globulin Ratio Urine Eosinophils Ur Random Creatinine Ur Random Sodium Crossmatch 03/25/18 18:33 WBC RBC Hgb Hct MCV MCH MCHC RDW Plt Count Total Counted Neutrophils % (Manual) Band Neutrophils % Lymphocytes % (Manual) Reactive Lymphs % Monocytes % (Manual) Eosinophils % (Manual) Basophils % (Manual) Metamyelocytes % Myelocytes % Promyelocytes % Blast Cells % Plasma Cell % (Manual) Nucleated RBC % Hypersegmented Polys Smudge Cells Toxic Granulation Dohle Bodies Valerio Rods Platelet Estimate Plt Clumps, EDTA Large Platelets Giant Platelets RBC Morphology Polychromasia Hypochromasia (manual) Poikilocytosis (manual Basophilic Stippling Anisocytosis (manual) Microcytosis (manual) Macrocytosis (manual) Spherocytes Sickle Cells Target Cells Tear Drop Cells Ovalocytes Stomatocytes Helmet Cells [place] Bodies [place] Cells Acanthocytes (Spur) Rouleaux Schistocytes PT 13.5 H INR 1.2 APTT 125.9 H Sodium Potassium Chloride Carbon Dioxide Anion Gap BUN Creatinine Est GFR ( Amer) Est GFR (Non-Af Amer) POC Glucose (mg/dL) Random Glucose Calcium Total Bilirubin AST ALT Alkaline Phosphatase NT-Pro-B Natriuret Pep Total Protein Albumin Globulin Albumin/Globulin Ratio Urine Eosinophils Ur Random Creatinine Ur Random Sodium Crossmatch Assessment & Plan - Assessment and Plan (Free Text) Assessment: legs are wrapped but I have seen them many times over the last 6 months, the last of which was 03/20/18 which prompted me to contact Dr Cintron again to have transferred here. The wound care itself is largely not going to have any impact on her overall healing as there is little salvageable tissue on the right that is not necrotic already. Left leg can be treated with silvadene. but multiple treatments have not had any clear benefit outside of ABXs IV
--- NOTE | 2018-03-25 20:02 | CP.PCM.PN ---
Subjective - Date & Time of Evaluation Date of Evaluation: 03/25/18 Time of Evaluation: 22:22 - Subjective Subjective: Above noted WBC 18K Objective - Vital Signs/Intake and Output Vital Signs (last 24 hours): Temp Pulse Resp BP Pulse Ox 97.9 F 89 20 114/56 L 95 03/25/18 16:57 03/25/18 16:57 03/25/18 16:57 03/25/18 16:57 03/25/18 16:57 - Medications Medications: Current Medications Acetaminophen (Tylenol 325mg Tab) 650 mg PO Q4 PRN PRN Reason: Pain, Mild (1-3) Aspirin (Aspirin) 325 mg PO DAILY [facility] Last Admin: 03/25/18 09:20 Dose: 325 mg Bisacodyl (Dulcolax) 10 mg [place] DAILY PRN PRN Reason: Constipation Clopidogrel Bisulfate (Plavix) 75 mg PO DAILY [facility] Last Admin: 03/25/18 09:12 Dose: 75 mg Dimethicone (Proshield Plus Skin Protectant) 1 applic TOP QSHIFT [facility] Last Admin: 03/24/18 16:48 Dose: 1 applic Docusate Sodium (Colace) 100 mg PO DAILY [facility] Last Admin: 03/25/18 09:11 Dose: 100 mg Escitalopram Oxalate (Lexapro) 5 mg PO HS [facility] Last Admin: 03/24/18 21:10 Dose: 5 mg Famotidine (Pepcid) 20 mg PO DAILY [facility] Last Admin: 03/25/18 09:10 Dose: 20 mg Ferrous Sulfate (Feosol) 325 mg PO DAILY [facility] Last Admin: 03/25/18 09:12 Dose: 325 mg Cefepime HCl 1 gm/ Sodium (Chloride) 100 mls @ 100 mls/hr IVPB DAILY [facility] PRN Reason: Protocol Last Admin: 03/25/18 09:14 Dose: 100 mls/hr Heparin Sodium/Dextrose (Heparin 25,000 Units/250ml In D5w) 25,000 units in 250 mls @ 9 mls/hr IV .Q24H [facility] PRN Reason: Protocol Last Admin: 03/25/18 02:30 Dose: 9 mls/hr Dextrose/Sodium Chloride (Dextrose 5%/0.45% Ns 1000 Ml) 1,000 mls @ 60 mls/hr IV .[id number] [facility] Stop: 03/26/18 11:43 Last Admin: 03/25/18 12:45 Dose: 60 mls/hr Heparin Sodium/Dextrose (Heparin 25,000 Units/250ml In D5w) 25,000 units in 250 mls @ 7 mls/hr IV .Q24H [facility] PRN Reason: Protocol Isosorbide Mononitrate (Imdur Er) 30 mg PO DAILY [facility] Last Admin: 03/25/18 09:11 Dose: 30 mg Magnesium Hydroxide (Milk Of Magnesia) 30 ml PO HS PRN PRN Reason: Constipation Metoprolol Tartrate (Lopressor) 25 mg PO Q12 [facility] Last Admin: 03/25/18 09:13 Dose: 25 mg Multivitamins/Minerals (Therapeutic-M Tab) 1 tab PO DAILY [facility] Last Admin: 03/25/18 09:10 Dose: 1 tab Silver Sulfadiazine (Silvadene 1% 50 Gm) 1 applic TOP BID [facility] Last Admin: 03/25/18 16:04 Dose: Not Given Sodium Hypochlorite (Dakins Solution 0.125%) 1 appl TOP QD7 [facility] Last Admin: 03/25/18 07:30 Dose: Not Given - Labs Labs: 03/25/18 09:40 03/25/18 09:40 PT 13.5 Seconds (9.8-13.1) H 03/25/18 18:33 INR 1.2 03/25/18 18:33 APTT 125.9 Seconds (25.6-37.1) H 03/25/18 18:33 - Respiratory Exam Respiratory Exam: NORMAL BREATHING PATTERN - Cardiovascular Exam Cardiovascular Exam: Tachycardia - GI/Abdominal Exam GI & Abdominal Exam: Normal Bowel Sounds Assessment and Plan - Assessment and Plan (Free Text) Assessment: PVD Significant Periphereal Arterial Occlusive dx S/P Angioplasty Stents Low ext edema cellulitis gangrene Local wound care IV ABX DAPT Heparin ID Podiatry Surgery Physiatry Cardiology ABBEY/ CKD creat 1.8 IVF Nephrology US Kidney WNl Angiogram??? Psychiatric dx?? Ultram?? Adj disorder Depression Psychiatry Psychology SSRI D/C Tramadol and Namenda Hx CHF Diastolic CAD stress thalium scarring ischemia?? cardiac cath refused?? Cardiology Hx COPD L Pleural effusion Pulmonary Hx Anemia Chronic dx ASA d/c as outpt due to dec Hbg S/P Procrit transfusion NIDDM Thyroid dx
--- NOTE | 2018-03-26 00:03 | CP.PCM.PN ---
Subjective - Date & Time of Evaluation Date of Evaluation: 03/24/18 Time of Evaluation: 17:00 - Subjective Subjective: Cr 1.7 refusing procedure Objective - Vital Signs/Intake and Output Vital Signs (last 24 hours): Temp Pulse Resp BP Pulse Ox 97.9 F 58 L 20 94/53 L 95 03/25/18 16:57 03/25/18 21:54 03/25/18 16:57 03/25/18 21:54 03/25/18 16:57 - Medications Medications: Current Medications Acetaminophen (Tylenol 325mg Tab) 650 mg PO Q4 PRN PRN Reason: Pain, Mild (1-3) Aspirin (Aspirin) 325 mg PO DAILY [facility] Last Admin: 03/25/18 09:20 Dose: 325 mg Bisacodyl (Dulcolax) 10 mg [place] DAILY PRN PRN Reason: Constipation Clopidogrel Bisulfate (Plavix) 75 mg PO DAILY [facility] Last Admin: 03/25/18 09:12 Dose: 75 mg Dimethicone (Proshield Plus Skin Protectant) 1 applic TOP QSHIFT [facility] Last Admin: 03/24/18 16:48 Dose: 1 applic Docusate Sodium (Colace) 100 mg PO DAILY [facility] Last Admin: 03/25/18 09:11 Dose: 100 mg Escitalopram Oxalate (Lexapro) 5 mg PO HS [facility] Last Admin: 03/25/18 21:54 Dose: 5 mg Famotidine (Pepcid) 20 mg PO DAILY [facility] Last Admin: 03/25/18 09:10 Dose: 20 mg Ferrous Sulfate (Feosol) 325 mg PO DAILY [facility] Last Admin: 03/25/18 09:12 Dose: 325 mg Cefepime HCl 1 gm/ Sodium (Chloride) 100 mls @ 100 mls/hr IVPB DAILY [facility] PRN Reason: Protocol Last Admin: 03/25/18 09:14 Dose: 100 mls/hr Heparin Sodium/Dextrose (Heparin 25,000 Units/250ml In D5w) 25,000 units in 250 mls @ 9 mls/hr IV .Q24H [facility] PRN Reason: Protocol Last Admin: 03/25/18 02:30 Dose: 9 mls/hr Dextrose/Sodium Chloride (Dextrose 5%/0.45% Ns 1000 Ml) 1,000 mls @ 60 mls/hr IV .[id number] [facility] Stop: 03/26/18 11:43 Last Admin: 03/25/18 12:45 Dose: 60 mls/hr Heparin Sodium/Dextrose (Heparin 25,000 Units/250ml In D5w) 25,000 units in 250 mls @ 7 mls/hr IV .Q24H [facility] PRN Reason: Protocol Last Admin: 03/25/18 20:51 Dose: 7 mls/hr Isosorbide Mononitrate (Imdur Er) 30 mg PO DAILY [facility] Last Admin: 03/25/18 09:11 Dose: 30 mg Magnesium Hydroxide (Milk Of Magnesia) 30 ml PO HS PRN PRN Reason: Constipation Metoprolol Tartrate (Lopressor) 25 mg PO Q12 [facility] Last Admin: 03/25/18 21:54 Dose: Not Given Multivitamins/Minerals (Therapeutic-M Tab) 1 tab PO DAILY [facility] Last Admin: 03/25/18 09:10 Dose: 1 tab Silver Sulfadiazine (Silvadene 1% 50 Gm) 1 applic TOP BID [facility] Last Admin: 03/25/18 16:04 Dose: Not Given Sodium Hypochlorite (Dakins Solution 0.125%) 1 appl TOP QD7 [facility] Last Admin: 03/25/18 07:30 Dose: Not Given - Labs Labs: 03/25/18 09:40 03/25/18 09:40 PT 13.5 Seconds (9.8-13.1) H 03/25/18 18:33 INR 1.2 03/25/18 18:33 APTT 125.9 Seconds (25.6-37.1) H 03/25/18 18:33 - Constitutional Appears: Well - Head Exam Head Exam: ATRAUMATIC, NORMAL INSPECTION, NORMOCEPHALIC - Eye Exam Eye Exam: EOMI, Normal appearance, PERRL Pupil Exam: NORMAL ACCOMODATION, PERRL - ENT Exam ENT Exam: Mucous Membranes Moist, Normal Exam - Neck Exam Neck Exam: Full ROM, Normal Inspection. absent: Lymphadenopathy - Respiratory Exam Respiratory Exam: Clear to Ausculation Bilateral, NORMAL BREATHING PATTERN - Cardiovascular Exam Cardiovascular Exam: REGULAR RHYTHM, +S1, +S2. absent: Murmur - GI/Abdominal Exam GI & Abdominal Exam: Soft, Normal Bowel Sounds. absent: Tenderness - Extremities Exam Extremities Exam: Full ROM, Normal Capillary Refill, Pedal Edema, Tenderness. absent: Joint Swelling - Back Exam Back Exam: NORMAL INSPECTION - Neurological Exam Neurological Exam: Alert, Awake, CN II-XII Intact, Normal Gait, Oriented x3 - Psychiatric Exam Psychiatric exam: Normal Affect, Normal Mood - Skin Skin Exam: Dry, Intact, Normal Color, Warm Assessment and Plan (1) Gangrenous toe Status: Acute (2) Abnormal nuclear stress test Status: Acute (3) Bilateral leg ulcer Status: Acute (4) Anemia Status: Acute
--- NOTE | 2018-03-26 00:05 | CP.PCM.PN ---
Subjective - Date & Time of Evaluation Date of Evaluation: 03/25/18 Time of Evaluation: 23:00 - Subjective Subjective: Cr still high need nephro clearance for peripheral to be scheduled for Objective - Vital Signs/Intake and Output Vital Signs (last 24 hours): Temp Pulse Resp BP Pulse Ox 97.9 F 58 L 20 94/53 L 95 03/25/18 16:57 03/25/18 21:54 03/25/18 16:57 03/25/18 21:54 03/25/18 16:57 - Medications Medications: Current Medications Acetaminophen (Tylenol 325mg Tab) 650 mg PO Q4 PRN PRN Reason: Pain, Mild (1-3) Aspirin (Aspirin) 325 mg PO DAILY [facility] Last Admin: 03/25/18 09:20 Dose: 325 mg Bisacodyl (Dulcolax) 10 mg [place] DAILY PRN PRN Reason: Constipation Clopidogrel Bisulfate (Plavix) 75 mg PO DAILY [facility] Last Admin: 03/25/18 09:12 Dose: 75 mg Dimethicone (Proshield Plus Skin Protectant) 1 applic TOP QSHIFT [facility] Last Admin: 03/24/18 16:48 Dose: 1 applic Docusate Sodium (Colace) 100 mg PO DAILY [facility] Last Admin: 03/25/18 09:11 Dose: 100 mg Escitalopram Oxalate (Lexapro) 5 mg PO HS [facility] Last Admin: 03/25/18 21:54 Dose: 5 mg Famotidine (Pepcid) 20 mg PO DAILY [facility] Last Admin: 03/25/18 09:10 Dose: 20 mg Ferrous Sulfate (Feosol) 325 mg PO DAILY [facility] Last Admin: 03/25/18 09:12 Dose: 325 mg Cefepime HCl 1 gm/ Sodium (Chloride) 100 mls @ 100 mls/hr IVPB DAILY [facility] PRN Reason: Protocol Last Admin: 03/25/18 09:14 Dose: 100 mls/hr Heparin Sodium/Dextrose (Heparin 25,000 Units/250ml In D5w) 25,000 units in 250 mls @ 9 mls/hr IV .Q24H [facility] PRN Reason: Protocol Last Admin: 03/25/18 02:30 Dose: 9 mls/hr Dextrose/Sodium Chloride (Dextrose 5%/0.45% Ns 1000 Ml) 1,000 mls @ 60 mls/hr IV .[id number] [facility] Stop: 03/26/18 11:43 Last Admin: 03/25/18 12:45 Dose: 60 mls/hr Heparin Sodium/Dextrose (Heparin 25,000 Units/250ml In D5w) 25,000 units in 250 mls @ 7 mls/hr IV .Q24H [facility] PRN Reason: Protocol Last Admin: 03/25/18 20:51 Dose: 7 mls/hr Isosorbide Mononitrate (Imdur Er) 30 mg PO DAILY [facility] Last Admin: 03/25/18 09:11 Dose: 30 mg Magnesium Hydroxide (Milk Of Magnesia) 30 ml PO HS PRN PRN Reason: Constipation Metoprolol Tartrate (Lopressor) 25 mg PO Q12 [facility] Last Admin: 03/25/18 21:54 Dose: Not Given Multivitamins/Minerals (Therapeutic-M Tab) 1 tab PO DAILY [facility] Last Admin: 03/25/18 09:10 Dose: 1 tab Silver Sulfadiazine (Silvadene 1% 50 Gm) 1 applic TOP BID [facility] Last Admin: 03/25/18 16:04 Dose: Not Given Sodium Hypochlorite (Dakins Solution 0.125%) 1 appl TOP QD7 [facility] Last Admin: 03/25/18 07:30 Dose: Not Given - Labs Labs: 03/25/18 09:40 03/25/18 09:40 PT 13.5 Seconds (9.8-13.1) H 03/25/18 18:33 INR 1.2 03/25/18 18:33 APTT 125.9 Seconds (25.6-37.1) H 03/25/18 18:33 - Constitutional Appears: Well - Head Exam Head Exam: ATRAUMATIC, NORMAL INSPECTION, NORMOCEPHALIC - Eye Exam Eye Exam: EOMI, Normal appearance, PERRL Pupil Exam: NORMAL ACCOMODATION, PERRL - ENT Exam ENT Exam: Mucous Membranes Moist, Normal Exam - Neck Exam Neck Exam: Full ROM, Normal Inspection. absent: Lymphadenopathy - Respiratory Exam Respiratory Exam: Clear to Ausculation Bilateral, NORMAL BREATHING PATTERN - Cardiovascular Exam Cardiovascular Exam: REGULAR RHYTHM, +S1, +S2. absent: Murmur - GI/Abdominal Exam GI & Abdominal Exam: Soft, Normal Bowel Sounds. absent: Tenderness - Extremities Exam Extremities Exam: Full ROM, Normal Capillary Refill. absent: Joint Swelling, Pedal Edema - Back Exam Back Exam: NORMAL INSPECTION - Neurological Exam Neurological Exam: Alert, Awake, CN II-XII Intact, Normal Gait, Oriented x3 - Psychiatric Exam Psychiatric exam: Normal Affect, Normal Mood - Skin Skin Exam: Dry, Intact, Normal Color, Warm Assessment and Plan (1) Gangrenous toe Status: Acute (2) Abnormal nuclear stress test Status: Acute (3) Bilateral leg ulcer Status: Acute (4) Anemia Status: Acute
[2018-03-26 06:40] LABS: MEAN CELL VOLUME 78.1 fl (81.0-99.0); MEAN CORPUSCULAR HEMOGLOBIN 23.5 pg (27.0-31.0); RBC 3.84 Mil/uL (3.80-5.20); RED CELL DISTRIBUTION WIDTH 23.6 % (11.5-14.5); WHITE BLOOD COUNT 13.3 K/uL (4.8-10.8)
--- NOTE | 2018-03-26 06:55 | CP.PCM.PN ---
Subjective - Date & Time of Evaluation Date of Evaluation: 03/26/18 Time of Evaluation: 06:51 - Subjective Subjective: Podiatry Consult Note for Dr. Briseno: 77 year old female patient seen and evaluated for bilateral extensive nectrotic lower extremity ulcerations. Patient agitated and displays aggressive behavior during dressing changes and states she is in severe pain. She notes that she does not like getting her dressings changed. Denies N/V/F/SOB/CP. Denies any other pedal complaints at this time. Objective - Vital Signs/Intake and Output Vital Signs (last 24 hours): Temp Pulse Resp BP Pulse Ox 97.6 F 65 18 91/52 L 96 03/26/18 00:20 03/26/18 00:20 03/26/18 00:20 03/26/18 00:20 03/26/18 00:20 - Medications Medications: Current Medications Acetaminophen (Tylenol 325mg Tab) 650 mg PO Q4 PRN PRN Reason: Pain, Mild (1-3) Aspirin (Aspirin) 325 mg PO DAILY [facility] Last Admin: 03/25/18 09:20 Dose: 325 mg Bisacodyl (Dulcolax) 10 mg [place] DAILY PRN PRN Reason: Constipation Clopidogrel Bisulfate (Plavix) 75 mg PO DAILY [facility] Last Admin: 03/25/18 09:12 Dose: 75 mg Dimethicone (Proshield Plus Skin Protectant) 1 applic TOP QSHIFT [facility] Last Admin: 03/24/18 16:48 Dose: 1 applic Docusate Sodium (Colace) 100 mg PO DAILY [facility] Last Admin: 03/25/18 09:11 Dose: 100 mg Escitalopram Oxalate (Lexapro) 5 mg PO HS [facility] Last Admin: 03/25/18 21:54 Dose: 5 mg Famotidine (Pepcid) 20 mg PO DAILY [facility] Last Admin: 03/25/18 09:10 Dose: 20 mg Ferrous Sulfate (Feosol) 325 mg PO DAILY [facility] Last Admin: 03/25/18 09:12 Dose: 325 mg Cefepime HCl 1 gm/ Sodium (Chloride) 100 mls @ 100 mls/hr IVPB DAILY [facility] PRN Reason: Protocol Last Admin: 03/25/18 09:14 Dose: 100 mls/hr Heparin Sodium/Dextrose (Heparin 25,000 Units/250ml In D5w) 25,000 units in 250 mls @ 9 mls/hr IV .Q24H [facility] PRN Reason: Protocol Last Admin: 03/25/18 02:30 Dose: 9 mls/hr Dextrose/Sodium Chloride (Dextrose 5%/0.45% Ns 1000 Ml) 1,000 mls @ 60 mls/hr IV .[id number] [facility] Stop: 03/26/18 11:43 Last Admin: 03/25/18 12:45 Dose: 60 mls/hr Heparin Sodium/Dextrose (Heparin 25,000 Units/250ml In D5w) 25,000 units in 250 mls @ 7 mls/hr IV .Q24H [facility] PRN Reason: Protocol Last Admin: 03/25/18 20:51 Dose: 7 mls/hr Isosorbide Mononitrate (Imdur Er) 30 mg PO DAILY [facility] Last Admin: 03/25/18 09:11 Dose: 30 mg Magnesium Hydroxide (Milk Of Magnesia) 30 ml PO HS PRN PRN Reason: Constipation Metoprolol Tartrate (Lopressor) 25 mg PO Q12 [facility] Last Admin: 03/25/18 21:54 Dose: Not Given Multivitamins/Minerals (Therapeutic-M Tab) 1 tab PO DAILY [facility] Last Admin: 03/25/18 09:10 Dose: 1 tab Silver Sulfadiazine (Silvadene 1% 50 Gm) 1 applic TOP BID [facility] Last Admin: 03/25/18 16:04 Dose: Not Given Sodium Hypochlorite (Dakins Solution 0.125%) 1 appl TOP QD7 [facility] Last Admin: 03/25/18 07:30 Dose: Not Given - Labs Labs: 03/25/18 09:40 03/25/18 09:40 PT 13.5 Seconds (9.8-13.1) H 03/25/18 18:33 INR 1.2 03/25/18 18:33 APTT 125.9 Seconds (25.6-37.1) H 03/25/18 18:33 - Constitutional Appears: Well, Non-toxic, No Acute Distress - Head Exam Head Exam: ATRAUMATIC, NORMOCEPHALIC - Extremities Exam Additional comments: Vasc: DP/PT pulses non-palpable, Temp gradient cool to cool, Cap refill delayed to digits/not attainable due to necrosis of 2-5 on right foot Ortho: Bilateral lower extremities painful upon palpation Neuro: Gross sensation intact and protective sensation diminished bilaterally Derm: Multiple ulcerations noted to the entire lower extremity with mixture of fibrotic/necrotic wound base: Erythema to the entire lower extremity with R>L, significantly malodorous, all sites (-) for purulence, probe to bone, tunneling or undermining. RIGHT: 1) Necrotic right heel eschar unstagable with no drainage noted measuring 9.0 cm X 7.0 cm 2) Circumferential ulceration to the medial posterior aspect measuring 21 cm in length, fibrotic edges, peroneal tendon exposed, drainage noted 3) necrotic 2nd and 3rd digits till the level of the MPTJ, dorsally necrotic 4th digit t the level of the MTPJ 4) fibro/necrotic ulceration to the dorsal aspect of the hallux at the PIPJ measuring 3.0 cmX 2.5 cm 5) fibro/necrotic ulceration to the dorsal forefoot measuring 2.5 cm X 1.8 cm 6) fibro/necrotic ulceration noted to the medial ankle distal to the medial malleolus measuring 4. 0 X 2.0 cm, + fluctuance noted 7) fibro/necrotic ulceration to the anterior tibial tuberosity measuring 3.0 X 1.0 cm 8) circular ulceration noted to the medial aspect of the leg at the level of the tibial tuberosity measuring 2.4 cm X 2.6 cm with 80% graular and 20% fibrotic bases, surrounding erythema 9) multiple stable eschars to the knee 10) New wound noted to the right hallux with minimal bleeding LEFT: 1) echar to the heel, necrotic, measuring 5.0 cm X 6.0 cm 2) fibro/necrotic ulceration to the dorsal aspect of the foot, with fibrotic edges, positive drainage 3) fibro/necrotic ulceration to the medial aspect of the leg measuring 5.0 c, X 3.0 cm 4) gangranous changes to the tip of the hallux, and to the dorsum of the 2nd digit 5) multipe eschars to the tibial tuberosity, stable in nature - Neurological Exam Neurological Exam: Alert, Awake - Psychiatric Exam Psychiatric exam: Agitated Assessment and Plan - Assessment and Plan (Free Text) Assessment: 77 year old female patient seen and evaluated at bedside for bilateral extensive necrotic lower extremity ulcerations. Plan: Patient seen and evaluated Patient plan discussed in detail with Dr. Briseno Patient chart, labs and vitals reviewed: Afebrile Continue IV abx per ID reccs As per Dr. Damon, need nephro clearance, plan for peripheral angio X-ray foot bilaterally: No signs of acute osseous changes. Proximal tib-fibula X-ray: multiple deep ulcers, no evidence of osteomyelitis. Bilateral wound culture 03/20/18: E. Coli (Final) Dressing change to bilateral lower extremities with Dakins, Adaptic, ABD, and DSD Podiatry will continue to follow while patient is in house
[2018-03-26 07:37] LABS: ALB/GLOB RATIO 0.8 (1.0-2.1); ALBUMIN 2.6 g/dL (3.5-5.0); CALCIUM 7.8 mg/dL (8.4-10.2)
[2018-03-26] MEDS: Dextrose 5%/0.45% NS 1,000 ML IV SCH (07:41)
--- NOTE | 2018-03-26 08:43 | PN ---
Copied To: Lucia Corley MD Attending MD: Lucia Corley MD DATE: 03/25/2018 ENDO FOLLOWUP NOTE LOCATION: In room 668. SUBJECTIVE: This is a 77-year-old female presenting here with nonhealing neuropathic leg ulcerations with gangrene and is now being followed closely for metabolic management. Her glycemic levels have been low normal today as noted with glucose levels ranging from 58 to 72 mg/dL. The glucose was 119 to 126 at bedtime last night. LABORATORY DATA: Her chemistry showed a BUN of 53, sodium 139, potassium 4.1, chloride 106, CO2 of 19, glucose 62, and creatinine 1.7. Her TSH is 5.24 with a total T4 of 4.09, indicative of subclinical hypothyroidism as noted thereof. ASSESSMENT AND PLAN: So at this time, we will actually discontinue her Tapazole medications as already done to allow for dose equilibration as noted thereof. We will also discontinue her glipizide given as a small dose of 2.5 mg once daily as ordered. We will titrate and resume accordingly as her oral intake improves thereof. We will follow and advise accordingly. Lucia Corley MD
[2018-03-26] MEDS: Silver Sulfadiazine 1% CREAM (50 gm) TOP SCH ×2 (09:01→17:13)
[2018-03-26] MEDS: Cefepime 1 GM in Sodium Chloride 0.9% 100 ML IVPB SCH (09:02)
[2018-03-26] MEDS: Multivitamin With Minerals Tab PO SCH (09:03)
[2018-03-26] MEDS ORDERED: Potassium Chloride 20 mEq ER Tab PO ONE (10:36)
--- NOTE | 2018-03-26 10:39 | CP.PCM.CON ---
History of Present Illness - History of Present Illness History of Present Illness: THE PATIENT IS A 77 YEAR OLD FEMALE WHO HAS A HISTORY OF CAD, PAD, HYPERTENSION , HYPERLIPIDEMIA, TYPE 2 DM AND COPD. SHE WAS ADMITTED TO [facility] SEVERAL MONTHS AGO FOR PAD AND DECLINED AN LE ANGIOGRAM FOR FURTHER EVALUATION AND TREATMENT AT THAT TIME. SHE WAS READMITTED LAST MONTH WITH LE ISCHEMIA AND GANGRENOUS CHANGES OF THE RT FOOT DIGITS AND UNDERWENT A LE ANGIOGRAPHY AND REVASCULARIZATION WITH BILATERAL ILIAC STENTS AT BY DR PINA. [place] W[place] AND WAS READMITTED AT THE PRESENT TIME FOR LE CELLULITIS, ISCHEMIA AND GANGRENOUS CHANGES. SHE WAS SEEN BY DR PINA WHO WANTS TO PERFORM A REPEAT LE ANGIOGRAPHY BUT WANTS HER RENAL STATUS STABALIZED FIRST. I WAS ASKED TO SEE AND FOLLOW HER ON THIS ADMISSION. SHE HAD AN ABNORMAL PHARMACOLOGICAL STRESS TEST EARLIER THIS YEAR AND REFUSED TO HAVE A CARDIAC CATH AND OPTED FOR CONSERVATIVE MEDICAL TREATMENT. SHE DENIES CHEST PAIN OR SOB. Past Patient History - Infectious Disease Hx of Infectious Diseases: None - Past Medical History & Family History Past Medical History?: Yes - Past Social History Smoking Status: Former Smoker - CARDIAC Hx Congestive Heart Failure: Yes Hx Hypercholesterolemia: Yes Hx Hypertension: Yes Hx Peripheral Edema: Yes - PULMONARY Hx Bronchitis: Yes Hx Chronic Obstructive Pulmonary Disease (COPD): Yes Hx Pneumonia: Yes - NEUROLOGICAL Other/Comment: Paresthesias of both feet - HEENT Hx HEENT Problems: No - RENAL Hx Chronic Kidney Disease: Yes - ENDOCRINE/METABOLIC Hx Hyperthyroidism: Yes - HEMATOLOGICAL/ONCOLOGICAL Hx AIDS: No Hx Anemia: Yes Hx Human Immunodeficiency Virus (HIV): No - INTEGUMENTARY Hx Dermatological Problems: Yes Hx Cellulitis: Yes - MUSCULOSKELETAL/RHEUMATOLOGICAL Hx Musculoskeletal Disorders: Yes Hx Falls: Yes - GASTROINTESTINAL Hx Gastrointestinal Disorders: No - GENITOURINARY/GYNECOLOGICAL Hx Genitourinary Disorders: No - PSYCHIATRIC Hx Psychophysiologic Disorder: Yes Hx Anxiety: Yes Hx Substance Use: No - SURGICAL HISTORY Hx Appendectomy: Yes Other/Comment: kidney stone removal - ANESTHESIA Hx Anesthesia: Yes Hx Anesthesia Reactions: No Hx Malignant Hyperthermia: No Meds Allergies/Adverse Reactions: Allergies Allergy/AdvReac Type Severity Reaction Status Date / Time No Known Allergies Allergy Verified 03/20/18 12:54 - Medications Medications: Current Medications Acetaminophen (Tylenol 325mg Tab) 650 mg PO Q4 PRN PRN Reason: Pain, Mild (1-3) Aspirin (Aspirin) 325 mg PO DAILY [facility] Last Admin: 03/26/18 09:02 Dose: 325 mg Bisacodyl (Dulcolax) 10 mg [place] DAILY PRN PRN Reason: Constipation Clopidogrel Bisulfate (Plavix) 75 mg PO DAILY [facility] Last Admin: 03/26/18 09:03 Dose: 75 mg Dimethicone (Proshield Plus Skin Protectant) 1 applic TOP QSHIFT [facility] Last Admin: 03/24/18 16:48 Dose: 1 applic Docusate Sodium (Colace) 100 mg PO DAILY [facility] Last Admin: 03/26/18 09:02 Dose: 100 mg Escitalopram Oxalate (Lexapro) 5 mg PO HS [facility] Last Admin: 03/25/18 21:54 Dose: 5 mg Famotidine (Pepcid) 20 mg PO DAILY [facility] Last Admin: 03/26/18 09:03 Dose: 20 mg Ferrous Sulfate (Feosol) 325 mg PO DAILY [facility] Last Admin: 03/26/18 09:03 Dose: 325 mg Cefepime HCl 1 gm/ Sodium (Chloride) 100 mls @ 100 mls/hr IVPB DAILY [facility] PRN Reason: Protocol Last Admin: 03/26/18 09:02 Dose: 100 mls/hr Dextrose/Sodium Chloride (Dextrose 5%/0.45% Ns 1000 Ml) 1,000 mls @ 60 mls/hr IV .[id number] [facility] Stop: 03/26/18 11:43 Last Admin: 03/26/18 07:41 Dose: 60 mls/hr Heparin Sodium/Dextrose (Heparin 25,000 Units/250ml In D5w) 25,000 units in 250 mls @ 7 mls/hr IV .Q24H [facility] PRN Reason: Protocol Last Admin: 03/25/18 20:51 Dose: 7 mls/hr Isosorbide Mononitrate (Imdur Er) 30 mg PO DAILY [facility] Last Admin: 03/26/18 09:06 Dose: 30 mg Magnesium Hydroxide (Milk Of Magnesia) 30 ml PO HS PRN PRN Reason: Constipation Metoprolol Tartrate (Lopressor) 25 mg PO Q12 [facility] Last Admin: 03/26/18 09:06 Dose: Not Given Multivitamins/Minerals (Therapeutic-M Tab) 1 tab PO DAILY [facility] Last Admin: 03/26/18 09:03 Dose: 1 tab Silver Sulfadiazine (Silvadene 1% 50 Gm) 1 applic TOP BID [facility] Last Admin: 03/26/18 09:01 Dose: Not Given Sodium Hypochlorite (Dakins Solution 0.125%) 1 appl TOP QD7 [facility] Last Admin: 03/26/18 07:43 Dose: Not Given Physical Exam - Respiratory Exam Respiratory Exam: Decreased Breath Sounds - Cardiovascular Exam Cardiovascular Exam: REGULAR RHYTHM, +S1, +S2 - Extremities Exam Additional comments: BILATERAL LE DRESSINGS - Additional Findings Additional findings: EKG NSR CR 1.6 WBC 18K NOTES OF DR PINA, DR CHATTERJEE, DR GREEN AND PODIATRY REVIEWED Results - Vital Signs Recent Vital Signs: Last Vital Signs Temp 97.5 F L 03/26/18 08:39 Pulse 66 03/26/18 09:06 Resp 18 03/26/18 08:39 BP 107/58 L 03/26/18 09:06 Pulse Ox 100 03/26/18 08:39 - Labs Result Diagrams: 03/26/18 06:15 03/26/18 06:15 Labs: Laboratory Results - last 24 hr 03/23/18 03/25/18 03/25/18 16:22 09:40 09:40 WBC 18.8 H RBC 3.70 L Hgb 9.1 L Hct 28.8 L MCV 77.9 L MCH 24.6 L MCHC 31.5 L RDW 23.1 H Plt Count 403 H PT INR APTT Sodium 139 Potassium 4.1 Chloride 106 Carbon Dioxide 19 L Anion Gap 18 BUN 53 H Creatinine 1.7 H Est GFR ( Amer) 35 Est GFR (Non-Af Amer) 29 POC Glucose (mg/dL) Random Glucose 62 L Calcium 7.9 L Total Bilirubin 1.2 AST 25 ALT 29 Alkaline Phosphatase 88 Total Protein 5.4 L Albumin 2.4 L Globulin 3.1 Albumin/Globulin Ratio 0.8 L Urine Eosinophils Negative 03/25/18 03/25/18 03/25/18 11:06 15:34 16:20 WBC RBC Hgb Hct MCV MCH MCHC RDW Plt Count PT INR APTT Sodium Potassium Chloride Carbon Dioxide Anion Gap BUN Creatinine Est GFR ( Amer) Est GFR (Non-Af Amer) POC Glucose (mg/dL) 72 68 77 Random Glucose Calcium Total Bilirubin AST ALT Alkaline Phosphatase Total Protein Albumin Globulin Albumin/Globulin Ratio Urine Eosinophils 03/25/18 03/25/18 03/26/18 18:33 21:39 05:56 WBC RBC Hgb Hct MCV MCH MCHC RDW Plt Count PT 13.5 H INR 1.2 APTT 125.9 H Sodium Potassium Chloride Carbon Dioxide Anion Gap BUN Creatinine Est GFR ( Amer) Est GFR (Non-Af Amer) POC Glucose (mg/dL) 85 92 Random Glucose Calcium Total Bilirubin AST ALT Alkaline Phosphatase Total Protein Albumin Globulin Albumin/Globulin Ratio Urine Eosinophils 03/26/18 03/26/18 03/26/18 06:15 06:15 06:26 WBC 13.3 H RBC 3.84 Hgb 9.0 L Hct 30.0 L MCV 78.1 L MCH 23.5 L MCHC 30.0 L RDW 23.6 H Plt Count 374 PT INR APTT 68.4 H Sodium 141 Potassium 3.4 L Chloride 109 H Carbon Dioxide 20 L Anion Gap 15 BUN 51 H Creatinine 1.6 H Est GFR ( Amer) 38 Est GFR (Non-Af Amer) 31 POC Glucose (mg/dL) Random Glucose 84 Calcium 7.8 L Total Bilirubin 1.2 AST 32 ALT 18 Alkaline Phosphatase 107 Total Protein 5.8 L Albumin 2.6 L Globulin 3.3 Albumin/Globulin Ratio 0.8 L Urine Eosinophils Assessment & Plan - Assessment and Plan (Free Text) Assessment: CAD PAD WITH LOWER EXTREMITY ULCERATIONS, CELLULITIS ISCHEMIA AND GANGRENOUS CHANGED HYPERTENSION TYPE 2 DM CRF WITH ABBEY Plan: CONTINUE ASPIRIN, CLOPIDOGREL, IV HEPARIN, ISOSORBIDE, METOPROLOL, IV FLUIDS AND IV ANTIBIOTICS. FOR LE EXTREMITY AND POSSIBLY CORONARY ANGIO LATER THIS WEEK BY DR PINA
--- NOTE | 2018-03-26 11:02 | CP.PCM.PN ---
Subjective - Date & Time of Evaluation Date of Evaluation: 03/26/18 Time of Evaluation: 11:00 - Subjective Subjective: General Surgery Pt seen and examined. No issues overnight. Going for EEG today. Only ate small amount, refused further intake. Dr. Damon planning for angio on if able. Objective - Vital Signs/Intake and Output Vital Signs (last 24 hours): Temp Pulse Resp BP Pulse Ox 97.5 F L 66 18 107/58 L 100 03/26/18 08:39 03/26/18 09:06 03/26/18 08:39 03/26/18 09:06 03/26/18 08:39 - Medications Medications: Current Medications Acetaminophen (Tylenol 325mg Tab) 650 mg PO Q4 PRN PRN Reason: Pain, Mild (1-3) Aspirin (Aspirin) 325 mg PO DAILY [facility] Last Admin: 03/26/18 09:02 Dose: 325 mg Bisacodyl (Dulcolax) 10 mg [place] DAILY PRN PRN Reason: Constipation Clopidogrel Bisulfate (Plavix) 75 mg PO DAILY [facility] Last Admin: 03/26/18 09:03 Dose: 75 mg Dimethicone (Proshield Plus Skin Protectant) 1 applic TOP QSHIFT [facility] Last Admin: 03/24/18 16:48 Dose: 1 applic Docusate Sodium (Colace) 100 mg PO DAILY [facility] Last Admin: 03/26/18 09:02 Dose: 100 mg Escitalopram Oxalate (Lexapro) 5 mg PO HS [facility] Last Admin: 03/25/18 21:54 Dose: 5 mg Famotidine (Pepcid) 20 mg PO DAILY [facility] Last Admin: 03/26/18 09:03 Dose: 20 mg Ferrous Sulfate (Feosol) 325 mg PO DAILY [facility] Last Admin: 03/26/18 09:03 Dose: 325 mg Cefepime HCl 1 gm/ Sodium (Chloride) 100 mls @ 100 mls/hr IVPB DAILY [facility] PRN Reason: Protocol Last Admin: 03/26/18 09:02 Dose: 100 mls/hr Dextrose/Sodium Chloride (Dextrose 5%/0.45% Ns 1000 Ml) 1,000 mls @ 60 mls/hr IV .[id number] [facility] Stop: 03/26/18 11:43 Last Admin: 03/26/18 07:41 Dose: 60 mls/hr Heparin Sodium/Dextrose (Heparin 25,000 Units/250ml In D5w) 25,000 units in 250 mls @ 7 mls/hr IV .Q24H [facility] PRN Reason: Protocol Last Admin: 03/25/18 20:51 Dose: 7 mls/hr Isosorbide Mononitrate (Imdur Er) 30 mg PO DAILY [facility] Last Admin: 03/26/18 09:06 Dose: 30 mg Magnesium Hydroxide (Milk Of Magnesia) 30 ml PO HS PRN PRN Reason: Constipation Memantine (Namenda) 5 mg PO BID [facility] Metoprolol Tartrate (Lopressor) 25 mg PO Q12 [facility] Last Admin: 03/26/18 09:06 Dose: Not Given Multivitamins/Minerals (Therapeutic-M Tab) 1 tab PO DAILY [facility] Last Admin: 03/26/18 09:03 Dose: 1 tab Silver Sulfadiazine (Silvadene 1% 50 Gm) 1 applic TOP BID [facility] Last Admin: 03/26/18 09:01 Dose: Not Given Sodium Hypochlorite (Dakins Solution 0.125%) 1 appl TOP QD7 [facility] Last Admin: 03/26/18 07:43 Dose: Not Given - Labs Labs: 03/26/18 06:15 03/26/18 06:15 PT 13.5 Seconds (9.8-13.1) H 03/25/18 18:33 INR 1.2 03/25/18 18:33 APTT 68.4 Seconds (25.6-37.1) H 03/26/18 06:26 - Constitutional Appears: Non-toxic, No Acute Distress - Head Exam Head Exam: ATRAUMATIC, NORMOCEPHALIC - Eye Exam Eye Exam: EOMI. absent: Scleral icterus - ENT Exam ENT Exam: Mucous Membranes Moist, Normal Oropharynx - Cardiovascular Exam Cardiovascular Exam: +S1, +S2. absent: Bradycardia, Tachycardia - GI/Abdominal Exam GI & Abdominal Exam: Soft. absent: Distended, Tenderness - Extremities Exam Additional comments: Dressings intact, pt refuses to allow us to examine beneath them - Neurological Exam Neurological Exam: Alert, Awake - Skin Skin Exam: Dry, Warm Assessment and Plan - Assessment and Plan (Free Text) Assessment: 77 y/o F w/ PVD, non-healing necrotic B/L LE wounds Wound cx pos for Providencia Rettgeri & E coli Plan: Cont hep ip as per cardio IV Abx as per ID Daily dressing changes by podiatry/wound care FU angio with Dr. Damon possibly Rec revascularization prior to AKA vs. BKA for improved wound healing Nephro following for ABBEY Follow up EEG D/W Dr. Chuck Healy PGY4
--- NOTE | 2018-03-26 13:04 | CP.PCM.PN ---
Subjective - Date & Time of Evaluation Date of Evaluation: 03/26/18 Time of Evaluation: 08:00 - Subjective Subjective: weak lethargic NAD Objective - Vital Signs/Intake and Output Vital Signs (last 24 hours): Temp Pulse Resp BP Pulse Ox 97.5 F L 66 18 107/58 L 100 03/26/18 08:39 03/26/18 09:06 03/26/18 08:39 03/26/18 09:06 03/26/18 08:39 - Medications Medications: Current Medications Acetaminophen (Tylenol 325mg Tab) 650 mg PO Q4 PRN PRN Reason: Pain, Mild (1-3) Aspirin (Aspirin) 325 mg PO DAILY [facility] Last Admin: 03/26/18 09:02 Dose: 325 mg Bisacodyl (Dulcolax) 10 mg [place] DAILY PRN PRN Reason: Constipation Clopidogrel Bisulfate (Plavix) 75 mg PO DAILY [facility] Last Admin: 03/26/18 09:03 Dose: 75 mg Dimethicone (Proshield Plus Skin Protectant) 1 applic TOP QSHIFT [facility] Last Admin: 03/24/18 16:48 Dose: 1 applic Docusate Sodium (Colace) 100 mg PO DAILY [facility] Last Admin: 03/26/18 09:02 Dose: 100 mg Escitalopram Oxalate (Lexapro) 5 mg PO HS [facility] Last Admin: 03/25/18 21:54 Dose: 5 mg Famotidine (Pepcid) 20 mg PO DAILY [facility] Last Admin: 03/26/18 09:03 Dose: 20 mg Ferrous Sulfate (Feosol) 325 mg PO DAILY [facility] Last Admin: 03/26/18 09:03 Dose: 325 mg Cefepime HCl 1 gm/ Sodium (Chloride) 100 mls @ 100 mls/hr IVPB DAILY [facility] PRN Reason: Protocol Last Admin: 03/26/18 09:02 Dose: 100 mls/hr Heparin Sodium/Dextrose (Heparin 25,000 Units/250ml In D5w) 25,000 units in 250 mls @ 7 mls/hr IV .Q24H [facility] PRN Reason: Protocol Last Admin: 03/25/18 20:51 Dose: 7 mls/hr Isosorbide Mononitrate (Imdur Er) 30 mg PO DAILY [facility] Last Admin: 03/26/18 09:06 Dose: 30 mg Magnesium Hydroxide (Milk Of Magnesia) 30 ml PO HS PRN PRN Reason: Constipation Memantine (Namenda) 5 mg PO BID [facility] Metoprolol Tartrate (Lopressor) 25 mg PO Q12 [facility] Last Admin: 03/26/18 09:06 Dose: Not Given Multivitamins/Minerals (Therapeutic-M Tab) 1 tab PO DAILY [facility] Last Admin: 03/26/18 09:03 Dose: 1 tab Silver Sulfadiazine (Silvadene 1% 50 Gm) 1 applic TOP BID [facility] Last Admin: 03/26/18 09:01 Dose: Not Given Sodium Hypochlorite (Dakins Solution 0.125%) 1 appl TOP QD7 [facility] Last Admin: 03/26/18 07:43 Dose: Not Given - Labs Labs: 03/26/18 06:15 03/26/18 06:15 PT 13.5 Seconds (9.8-13.1) H 03/25/18 18:33 INR 1.2 03/25/18 18:33 APTT 68.4 Seconds (25.6-37.1) H 03/26/18 06:26 - Constitutional Appears: Non-toxic, Confused, Chronically Ill - Head Exam Head Exam: NORMOCEPHALIC - Eye Exam Eye Exam: PERRL. absent: Scleral icterus - ENT Exam ENT Exam: Mucous Membranes Dry - Neck Exam Neck Exam: absent: Lymphadenopathy - Respiratory Exam Respiratory Exam: Decreased Breath Sounds - Cardiovascular Exam Cardiovascular Exam: REGULAR RHYTHM - GI/Abdominal Exam GI & Abdominal Exam: Distended, Soft - Rectal Exam Rectal Exam: Deferred - Exam Exam: NORMAL INSPECTION - Extremities Exam Extremities Exam: absent: Calf Tenderness, Pedal Edema - Back Exam Back Exam: absent: CVA tenderness (L), CVA tenderness (R) - Neurological Exam Neurological Exam: Alert, Awake, CN II-XII Intact - Psychiatric Exam Psychiatric exam: Depressed - Skin Skin Exam: Dry Assessment and Plan (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
--- NOTE | 2018-03-26 13:34 | CP.PCM.PN ---
Subjective - Date & Time of Evaluation Date of Evaluation: 03/26/18 Time of Evaluation: 13:33 - Subjective Subjective: patient M bed appears to be chronically ill Not verbalizing much Objective - Vital Signs/Intake and Output Vital Signs (last 24 hours): Temp Pulse Resp BP Pulse Ox 97.5 F L 66 18 107/58 L 100 03/26/18 08:39 03/26/18 09:06 03/26/18 08:39 03/26/18 09:06 03/26/18 08:39 - Medications Medications: Current Medications Acetaminophen (Tylenol 325mg Tab) 650 mg PO Q4 PRN PRN Reason: Pain, Mild (1-3) Aspirin (Aspirin) 325 mg PO DAILY [facility] Last Admin: 03/26/18 09:02 Dose: 325 mg Bisacodyl (Dulcolax) 10 mg [place] DAILY PRN PRN Reason: Constipation Clopidogrel Bisulfate (Plavix) 75 mg PO DAILY [facility] Last Admin: 03/26/18 09:03 Dose: 75 mg Dimethicone (Proshield Plus Skin Protectant) 1 applic TOP QSHIFT [facility] Last Admin: 03/24/18 16:48 Dose: 1 applic Docusate Sodium (Colace) 100 mg PO DAILY [facility] Last Admin: 03/26/18 09:02 Dose: 100 mg Escitalopram Oxalate (Lexapro) 5 mg PO HS [facility] Last Admin: 03/25/18 21:54 Dose: 5 mg Famotidine (Pepcid) 20 mg PO DAILY [facility] Last Admin: 03/26/18 09:03 Dose: 20 mg Ferrous Sulfate (Feosol) 325 mg PO DAILY [facility] Last Admin: 03/26/18 09:03 Dose: 325 mg Cefepime HCl 1 gm/ Sodium (Chloride) 100 mls @ 100 mls/hr IVPB DAILY [facility] PRN Reason: Protocol Last Admin: 03/26/18 09:02 Dose: 100 mls/hr Heparin Sodium/Dextrose (Heparin 25,000 Units/250ml In D5w) 25,000 units in 250 mls @ 7 mls/hr IV .Q24H [facility] PRN Reason: Protocol Last Admin: 03/25/18 20:51 Dose: 7 mls/hr Isosorbide Mononitrate (Imdur Er) 30 mg PO DAILY [facility] Last Admin: 03/26/18 09:06 Dose: 30 mg Magnesium Hydroxide (Milk Of Magnesia) 30 ml PO HS PRN PRN Reason: Constipation Memantine (Namenda) 5 mg PO BID [facility] Metoprolol Tartrate (Lopressor) 25 mg PO Q12 [facility] Last Admin: 03/26/18 09:06 Dose: Not Given Multivitamins/Minerals (Therapeutic-M Tab) 1 tab PO DAILY [facility] Last Admin: 03/26/18 09:03 Dose: 1 tab Silver Sulfadiazine (Silvadene 1% 50 Gm) 1 applic TOP BID [facility] Last Admin: 03/26/18 09:01 Dose: Not Given Sodium Hypochlorite (Dakins Solution 0.125%) 1 appl TOP QD7 [facility] Last Admin: 03/26/18 07:43 Dose: Not Given - Labs Labs: 03/26/18 06:15 03/26/18 06:15 PT 13.5 Seconds (9.8-13.1) H 03/25/18 18:33 INR 1.2 03/25/18 18:33 APTT 68.4 Seconds (25.6-37.1) H 03/26/18 06:26 - Constitutional Appears: No Acute Distress - Eye Exam Eye Exam: Conjunctival injection - ENT Exam ENT Exam: Mucous Membranes Moist. absent: Mucous Membranes Dry - Respiratory Exam Respiratory Exam: NORMAL BREATHING PATTERN - Cardiovascular Exam Cardiovascular Exam: absent: Gallop, Rubs - GI/Abdominal Exam GI & Abdominal Exam: Soft, Normal Bowel Sounds - Extremities Exam Extremities Exam: absent: Calf Tenderness - Back Exam Back Exam: absent: CVA tenderness (L), CVA tenderness (R) - Neurological Exam Neurological Exam: Altered - Psychiatric Exam Psychiatric exam: Flat Affect - Skin Skin Exam: absent: Cyanosis Assessment and Plan (1) Bilateral leg ulcer Status: Acute (2) ABBEY (acute kidney injury) Assessment & Plan: Patient appeared to have acute kidney injury perhaps related to multifactorial. appeared to be dehydrated. serum creatinine improving coming down to 1.6 however her base serum creatinine 1.0 Bilateral leg ulcers Diabetes mellitus leukocytosis improving Recommendation and plan IV fluid D5 W about 60 mL/h Discontinue Lasix and diuretics Antibiotics as adjustment per renal dose. Follow-up blood margi Status: Acute
--- NOTE | 2018-03-26 13:59 | CP.PCM.PN ---
Subjective - Date & Time of Evaluation Date of Evaluation: 03/26/18 Time of Evaluation: 13:57 - Subjective Subjective: Cr 1.6 improving Drowsy and lethargic Objective - Vital Signs/Intake and Output Vital Signs (last 24 hours): Temp Pulse Resp BP Pulse Ox 97.5 F L 66 18 107/58 L 100 03/26/18 08:39 03/26/18 09:06 03/26/18 08:39 03/26/18 09:06 03/26/18 08:39 - Medications Medications: Current Medications Acetaminophen (Tylenol 325mg Tab) 650 mg PO Q4 PRN PRN Reason: Pain, Mild (1-3) Aspirin (Aspirin) 325 mg PO DAILY [facility] Last Admin: 03/26/18 09:02 Dose: 325 mg Bisacodyl (Dulcolax) 10 mg [place] DAILY PRN PRN Reason: Constipation Clopidogrel Bisulfate (Plavix) 75 mg PO DAILY [facility] Last Admin: 03/26/18 09:03 Dose: 75 mg Dimethicone (Proshield Plus Skin Protectant) 1 applic TOP QSHIFT [facility] Last Admin: 03/24/18 16:48 Dose: 1 applic Docusate Sodium (Colace) 100 mg PO DAILY [facility] Last Admin: 03/26/18 09:02 Dose: 100 mg Escitalopram Oxalate (Lexapro) 5 mg PO HS [facility] Last Admin: 03/25/18 21:54 Dose: 5 mg Famotidine (Pepcid) 20 mg PO DAILY [facility] Last Admin: 03/26/18 09:03 Dose: 20 mg Ferrous Sulfate (Feosol) 325 mg PO DAILY [facility] Last Admin: 03/26/18 09:03 Dose: 325 mg Cefepime HCl 1 gm/ Sodium (Chloride) 100 mls @ 100 mls/hr IVPB DAILY [facility] PRN Reason: Protocol Last Admin: 03/26/18 09:02 Dose: 100 mls/hr Heparin Sodium/Dextrose (Heparin 25,000 Units/250ml In D5w) 25,000 units in 250 mls @ 7 mls/hr IV .Q24H [facility] PRN Reason: Protocol Last Admin: 03/25/18 20:51 Dose: 7 mls/hr Isosorbide Mononitrate (Imdur Er) 30 mg PO DAILY [facility] Last Admin: 03/26/18 09:06 Dose: 30 mg Magnesium Hydroxide (Milk Of Magnesia) 30 ml PO HS PRN PRN Reason: Constipation Memantine (Namenda) 5 mg PO BID [facility] Metoprolol Tartrate (Lopressor) 25 mg PO Q12 [facility] Last Admin: 03/26/18 09:06 Dose: Not Given Multivitamins/Minerals (Therapeutic-M Tab) 1 tab PO DAILY [facility] Last Admin: 03/26/18 09:03 Dose: 1 tab Silver Sulfadiazine (Silvadene 1% 50 Gm) 1 applic TOP BID [facility] Last Admin: 03/26/18 09:01 Dose: Not Given Sodium Hypochlorite (Dakins Solution 0.125%) 1 appl TOP QD7 [facility] Last Admin: 03/26/18 07:43 Dose: Not Given - Labs Labs: 03/26/18 06:15 03/26/18 06:15 PT 13.5 Seconds (9.8-13.1) H 03/25/18 18:33 INR 1.2 03/25/18 18:33 APTT 68.4 Seconds (25.6-37.1) H 03/26/18 06:26 - Constitutional Appears: Well, Confused - Head Exam Head Exam: ATRAUMATIC, NORMAL INSPECTION, NORMOCEPHALIC - Eye Exam Eye Exam: EOMI, Normal appearance, PERRL Pupil Exam: NORMAL ACCOMODATION, PERRL - ENT Exam ENT Exam: Mucous Membranes Moist, Normal Exam - Neck Exam Neck Exam: Full ROM, Normal Inspection. absent: Lymphadenopathy - Respiratory Exam Respiratory Exam: Clear to Ausculation Bilateral, NORMAL BREATHING PATTERN - Cardiovascular Exam Cardiovascular Exam: REGULAR RHYTHM, +S1, +S2. absent: Murmur - GI/Abdominal Exam GI & Abdominal Exam: Soft, Normal Bowel Sounds. absent: Tenderness - Extremities Exam Extremities Exam: Full ROM. absent: Joint Swelling, Pedal Edema Additional comments: gangrenous toes - Back Exam Back Exam: NORMAL INSPECTION - Neurological Exam Neurological Exam: Alert, Awake, CN II-XII Intact, Normal Gait, Oriented x3 - Psychiatric Exam Psychiatric exam: Normal Affect, Normal Mood - Skin Skin Exam: Dry, Intact, Normal Color, Warm Assessment and Plan (1) Gangrenous toe Assessment & Plan: will arrange for peripheral angio once cleared by Nephro Status: Acute (2) Abnormal nuclear stress test Assessment & Plan: reviewed note cardiac cath once Cr back to normal cont asa, plavix cont IV heparin for now Status: Acute (3) Bilateral leg ulcer Status: Acute (4) Anemia Status: Acute
[2018-03-26] MEDS ORDERED: Heparin 25,000units in D5W 25,000 UNITS/250 ML BAG IV SCH (14:20)
[2018-03-26] MEDS: Heparin 25,000units in D5W 25,000 UNITS/250 ML BAG IV SCH (14:58)
--- NOTE | 2018-03-26 17:38 | CP.PCM.PN ---
Subjective - Date & Time of Evaluation Date of Evaluation: 03/26/18 Time of Evaluation: 22:22 - Subjective Subjective: Improved today more alert?? WBC 13k creat 1.6 Objective - Vital Signs/Intake and Output Vital Signs (last 24 hours): Temp Pulse Resp BP Pulse Ox 97 F L 80 20 135/63 98 03/26/18 16:18 03/26/18 16:18 03/26/18 16:18 03/26/18 16:18 03/26/18 16:18 - Medications Medications: Current Medications Acetaminophen (Tylenol 325mg Tab) 650 mg PO Q4 PRN PRN Reason: Pain, Mild (1-3) Aspirin (Aspirin) 325 mg PO DAILY [facility] Last Admin: 03/26/18 09:02 Dose: 325 mg Bisacodyl (Dulcolax) 10 mg [place] DAILY PRN PRN Reason: Constipation Clopidogrel Bisulfate (Plavix) 75 mg PO DAILY [facility] Last Admin: 03/26/18 09:03 Dose: 75 mg Dimethicone (Proshield Plus Skin Protectant) 1 applic TOP QSHIFT [facility] Last Admin: 03/24/18 16:48 Dose: 1 applic Docusate Sodium (Colace) 100 mg PO DAILY [facility] Last Admin: 03/26/18 09:02 Dose: 100 mg Escitalopram Oxalate (Lexapro) 5 mg PO HS [facility] Last Admin: 03/25/18 21:54 Dose: 5 mg Famotidine (Pepcid) 20 mg PO DAILY [facility] Last Admin: 03/26/18 09:03 Dose: 20 mg Ferrous Sulfate (Feosol) 325 mg PO DAILY [facility] Last Admin: 03/26/18 09:03 Dose: 325 mg Cefepime HCl 1 gm/ Sodium (Chloride) 100 mls @ 100 mls/hr IVPB DAILY [facility] PRN Reason: Protocol Last Admin: 03/26/18 09:02 Dose: 100 mls/hr Heparin Sodium/Dextrose (Heparin 25,000 Units/250ml In D5w) 25,000 units in 250 mls @ 7 mls/hr IV .Q24H [facility] PRN Reason: Protocol Last Admin: 03/26/18 14:58 Dose: 7 mls/hr Isosorbide Mononitrate (Imdur Er) 30 mg PO DAILY [facility] Last Admin: 03/26/18 09:06 Dose: 30 mg Magnesium Hydroxide (Milk Of Magnesia) 30 ml PO HS PRN PRN Reason: Constipation Memantine (Namenda) 5 mg PO BID [facility] Metoprolol Tartrate (Lopressor) 25 mg PO Q12 [facility] Last Admin: 03/26/18 09:06 Dose: Not Given Multivitamins/Minerals (Therapeutic-M Tab) 1 tab PO DAILY [facility] Last Admin: 03/26/18 09:03 Dose: 1 tab Silver Sulfadiazine (Silvadene 1% 50 Gm) 1 applic TOP BID [facility] Last Admin: 03/26/18 17:13 Dose: Not Given Sodium Hypochlorite (Dakins Solution 0.125%) 1 appl TOP QD7 [facility] Last Admin: 03/26/18 07:43 Dose: Not Given - Labs Labs: 03/26/18 06:15 03/26/18 06:15 PT 13.5 Seconds (9.8-13.1) H 03/25/18 18:33 INR 1.2 03/25/18 18:33 APTT 68.4 Seconds (25.6-37.1) H 03/26/18 06:26 - Respiratory Exam Respiratory Exam: NORMAL BREATHING PATTERN - Cardiovascular Exam Cardiovascular Exam: REGULAR RHYTHM - GI/Abdominal Exam GI & Abdominal Exam: Normal Bowel Sounds Assessment and Plan - Assessment and Plan (Free Text) Assessment: PVD S/P Angioplasty Stents Low ext edema cellulitis gangrene Local wound care IV ABX DAPT Heparin ID Podiatry Surgery Physiatry Cardiology ABBEY/ CKD creat 1.6 IVF Nephrology US Kidney WNl Angiogram??? Psychiatric dx?? Ultram?? Adj disorder Depression Psychiatry Psychology SSRI D/C Tramadol and Namenda Hx CHF Diastolic CAD stress thalium scarring ischemia?? cardiac cath refused?? Cardiology Hx COPD L Pleural effusion Pulmonary Hx Anemia Chronic dx ASA d/c as outpt due to dec Hbg S/P Procrit transfusion NIDDM Thyroid dx
[2018-03-26] MEDS: Proshield Plus GEL TOP SCH (22:07)
--- NOTE | 2018-03-26 22:10 | CON ---
Copied To: Josselyn Guerrero MD Attending MD: Josselyn Guerrero MD DATE: 03/26/2018 NEUROLOGY CONSULTATION REASON FOR CONSULTATION: Change in mental status. HISTORY OF PRESENT ILLNESS: Patient is a 77-year-old female who has been asked for evaluation of change in mental status. Patient was admitted with infection in both lower extremities. Patient has been noticed to be lethargic and sleepy. That is why Neurology consultation was called. Per patient, she is fine. Denies any new complaints. REVIEW OF SYSTEMS: Denies any headache, dizziness, chest pain, shortness of breath, or abdominal pain. Does complain of pain in her legs. Denies any hallucinations or focal weakness in arms or legs. PAST MEDICAL HISTORY: Includes renal insufficiency, dementia, diabetes mellitus, and hypertension. CURRENT MEDICATIONS: Include aspirin, cefepime, Colace, Dulcolax, subcutaneous heparin, Imdur, Lexapro, Lopressor, Pepcid, Plavix, and Tylenol p.r.n. ALLERGIES: NO KNOWN DRUG ALLERGIES. SOCIAL HISTORY: Patient is a former smoker, does not smoke currently. Denies any alcohol or illicit drugs. FAMILY HISTORY: Reviewed and noncontributory to the case. PHYSICAL EXAMINATION: GENERAL: Patient is an elderly female, lying on the bed, in no acute distress. VITAL SIGNS: Her blood pressure is 107/58, heart rate is 66 per minute, breathing at the rate of 16 per minute, and temperature is 97.5 degrees Fahrenheit. HEENT: Head is normocephalic and atraumatic. NECK: Supple. There are no carotid bruits. LUNGS: Clear. CVS: S1 and S2 audible. No murmurs. ABDOMEN: Soft and nontender. Bowel sounds present. NEUROLOGIC EXAMINATION: Mental status: Patient is awake and alert. She follows all simple commands. She knows she is in the hospital, year is 88, month she does not know. President is [place]. Follows simple commands. Cranial nerve examination: Pupils are 3 mm bilaterally, reactive to light. Visual arthur are full. Extraocular movements are intact. There is no facial asymmetry. She is moving all four extremities. Power appears to be 4/5 all over. Reflexes are 1+ and symmetrical with absent knee jerk and ankle jerk. Plantars are downgoing bilaterally. Gait is deferred at the moment. LABORATORY DATA: Labs reviewed, show WBC of 13.3, hemoglobin 9, hematocrit 30, and platelets of 374,000. Sodium is 141, potassium 3.4, chloride 109, carbon dioxide 20, BUN of 51, creatinine 1.6, and glucose of 84. Patient had a CT scan of the head done which shows nonspecific findings, mostly microvascular ischemic changes as well as atrophy. IMPRESSION: 1. Altered mental status, which appears to be secondary to toxic metabolic encephalopathy. 2. Cellulitis of the lower extremities. 3. Underlying dementia. 4. Renal insufficiency. RECOMMENDATIONS: 1. Patient to have an electroencephalogram. 2. Patient had a CT scan of the head which shows no significant findings. 3. Patient to be continued on her Namenda. 4. Patient to be continued on IV antibiotics. 5. Please continue supportive care and treatment. Thank you for the opportunity to participate in the care of this patient. Josselyn Guerrero MD
--- NOTE | 2018-03-26 23:41 | PN ---
Copied To: Lucia Corley MD Attending MD: Lucia Corley MD DATE: 03/26/2018 ENDO FOLLOWUP NOTE LOCATION: Room 668. SUBJECTIVE: This is a 77-year-old female with known history of type 2 diabetes and hyperthyroidism, admitted here with nonhealing neuropathic leg ulcerations and gangrene of her toes, currently receiving IV antibiotic management and is also being followed closely for metabolic management. Her glycemic levels have remained improved and optimal, ranging from glucose values of 88 to 107 and 92 mg/dL. LABORATORY DATA: Her latest chemistries showed BUN of 51, sodium 141, potassium 3.4, chloride 109, CO2 of 20, glucose 84, and creatinine 1.6. ASSESSMENT AND PLAN: So, at this time, we will continue the low-dose correction scale of regular insulin as given, but we have discontinued her glipizide medications because of low normal glycemic profile and very variable and suboptimal food portions. We will also hold off on her Tapazole medications because of recent biochemical evidence of subclinical hypothyroidism. We will obtain serial thyroid studies and determine the need to resume her medications accordingly. We will also obtain serial chemistries and supplement accordingly as needed. We will follow. Lucia Colrey MD
[2018-03-27] MEDS: Multivitamin With Minerals Tab PO SCH (08:16)
[2018-03-27] MEDS: Cefepime 1 GM in Sodium Chloride 0.9% 100 ML IVPB SCH (08:19)
--- NOTE | 2018-03-27 09:10 | CP.PCM.PN ---
Subjective - Date & Time of Evaluation Date of Evaluation: 03/27/18 Time of Evaluation: 09:08 - Subjective Subjective: B/L lower extremity ulcerations secondary to history of DM and PVD Podiatry Consult Note for Dr. Briseno: 77 year old female patient seen and evaluated for bilateral extensive nectrotic lower extremity ulcerations secondary to PMHx of DM and PVD. Patient more calm today and resting comfortably. Patient willing to undergo dressing change today. Denies N/V/F/SOB/CP. Objective - Vital Signs/Intake and Output Vital Signs (last 24 hours): Temp Pulse Resp BP Pulse Ox 97.5 F L 98 H 20 125/69 96 03/27/18 08:25 03/27/18 08:25 03/27/18 08:25 03/27/18 08:25 03/27/18 08:25 - Medications Medications: Current Medications Acetaminophen (Tylenol 325mg Tab) 650 mg PO Q4 PRN PRN Reason: Pain, Mild (1-3) Aspirin (Aspirin) 325 mg PO DAILY [facility] Last Admin: 03/27/18 08:17 Dose: 325 mg Bisacodyl (Dulcolax) 10 mg [place] DAILY PRN PRN Reason: Constipation Clopidogrel Bisulfate (Plavix) 75 mg PO DAILY [facility] Last Admin: 03/27/18 08:16 Dose: 75 mg Dimethicone (Proshield Plus Skin Protectant) 1 applic TOP QSHIFT [facility] Last Admin: 03/26/18 22:07 Dose: 1 applic Docusate Sodium (Colace) 100 mg PO DAILY [facility] Last Admin: 03/27/18 08:16 Dose: 100 mg Escitalopram Oxalate (Lexapro) 5 mg PO HS [facility] Last Admin: 03/26/18 22:03 Dose: 5 mg Famotidine (Pepcid) 20 mg PO DAILY [facility] Last Admin: 03/27/18 08:16 Dose: 20 mg Ferrous Sulfate (Feosol) 325 mg PO DAILY [facility] Last Admin: 03/27/18 08:16 Dose: 325 mg Cefepime HCl 1 gm/ Sodium (Chloride) 100 mls @ 100 mls/hr IVPB DAILY [facility] PRN Reason: Protocol Last Admin: 03/27/18 08:19 Dose: 100 mls/hr Heparin Sodium/Dextrose (Heparin 25,000 Units/250ml In D5w) 25,000 units in 250 mls @ 7 mls/hr IV .Q24H [facility] PRN Reason: Protocol Last Titration: 03/26/18 18:43 Dose: 5.5 mls/hr Isosorbide Mononitrate (Imdur Er) 30 mg PO DAILY [facility] Last Admin: 03/27/18 08:16 Dose: 30 mg Magnesium Hydroxide (Milk Of Magnesia) 30 ml PO HS PRN PRN Reason: Constipation Memantine (Namenda) 5 mg PO BID [facility] Last Admin: 03/27/18 08:17 Dose: 5 mg Metoprolol Tartrate (Lopressor) 25 mg PO Q12 [facility] Last Admin: 03/27/18 08:16 Dose: 25 mg Multivitamins/Minerals (Therapeutic-M Tab) 1 tab PO DAILY [facility] Last Admin: 03/27/18 08:16 Dose: 1 tab Silver Sulfadiazine (Silvadene 1% 50 Gm) 1 applic TOP BID [facility] Last Admin: 03/26/18 17:13 Dose: Not Given Sodium Hypochlorite (Dakins Solution 0.125%) 1 appl TOP QD7 [facility] Last Admin: 03/27/18 08:14 Dose: Not Given - Labs Labs: 03/26/18 06:15 03/26/18 06:15 PT 13.5 Seconds (9.8-13.1) H 03/25/18 18:33 INR 1.2 03/25/18 18:33 APTT 76.1 Seconds (25.6-37.1) H 03/26/18 17:39 - Constitutional Appears: Well, Non-toxic, No Acute Distress - Head Exam Head Exam: ATRAUMATIC, NORMOCEPHALIC - Extremities Exam Additional comments: Vasc: DP/PT pulses non-palpable, Temp gradient cool to cool, Cap refill delayed to digits/not attainable due to necrosis of 2-5 on right foot Ortho: Bilateral lower extremities painful upon palpation Neuro: Gross sensation intact and protective sensation diminished bilaterally Derm: Multiple ulcerations noted to the entire lower extremity with mixture of fibrotic/necrotic wound base: Erythema to the entire lower extremity with R>L, significantly malodorous, all sites (-) for purulence, probe to bone, tunneling or undermining. RIGHT: 1) Necrotic right heel eschar unstagable with no drainage noted measuring 9.0 cm X 7.0 cm 2) Circumferential ulceration to the medial posterior aspect measuring 21 cm in length, fibrotic edges, peroneal tendon exposed, drainage noted 3) necrotic 2nd and 3rd digits till the level of the MPTJ, dorsally necrotic 4th digit t the level of the MTPJ 4) fibro/necrotic ulceration to the dorsal aspect of the hallux at the PIPJ measuring 3.0 cmX 2.5 cm 5) fibro/necrotic ulceration to the dorsal forefoot measuring 2.5 cm X 1.8 cm 6) fibro/necrotic ulceration noted to the medial ankle distal to the medial malleolus measuring 4. 0 X 2.0 cm, + fluctuance noted 7) fibro/necrotic ulceration to the anterior tibial tuberosity measuring 3.0 X 1.0 cm 8) circular ulceration noted to the medial aspect of the leg at the level of the tibial tuberosity measuring 2.4 cm X 2.6 cm with 80% graular and 20% fibrotic bases, surrounding erythema 9) multiple stable eschars to the knee 10) New wound noted to the right hallux with minimal bleeding LEFT: 1) echar to the heel, necrotic, measuring 5.0 cm X 6.0 cm 2) fibro/necrotic ulceration to the dorsal aspect of the foot, with fibrotic edges, positive drainage, dusky appearance extending proximally 3) fibro/necrotic ulceration to the medial aspect of the leg measuring 5.0 c, X 3.0 cm 4) gangranous changes to the tip of the hallux, and to the dorsum of the 2nd digit, dusky appearance to hallux 5) multipe eschars to the tibial tuberosity, stable in nature - Neurological Exam Neurological Exam: Alert, Awake - Psychiatric Exam Psychiatric exam: Normal Affect, Normal Mood Assessment and Plan - Assessment and Plan (Free Text) Assessment: 77 year old female patient seen and evaluated at bedside for bilateral extensive necrotic lower extremity ulcerations secondary to DM and PVD . Plan: Patient seen and evaluated at bedside with Dr. Briseno Patient chart, labs and vitals reviewed: Afebrile, WBC 13.3 (03/26/18) Continue IV abx per ID reccs, Cefepime 1gm IV As per Dr. Damon, need nephro clearance, plan for peripheral angio today, will F /U X-ray foot bilaterally: No signs of acute osseous changes. Proximal tib-fibula X-ray: multiple deep ulcers, no evidence of osteomyelitis. Bilateral wound culture 03/20/18: E. Coli (Final) Dressing change to bilateral lower extremities with Bernardino Corrigan ABD, and [facility] Podiatry will continue to follow while patient is in house
--- NOTE | 2018-03-27 09:46 | CP.PCM.PN ---
Subjective - Date & Time of Evaluation Date of Evaluation: 03/27/18 Time of Evaluation: 07:30 - Subjective Subjective: NO CHEST PAIN OR SOB HAS PAIN IN BOTH FEET Objective - Vital Signs/Intake and Output Vital Signs (last 24 hours): Temp Pulse Resp BP Pulse Ox 97.5 F L 98 H 20 125/69 96 03/27/18 08:25 03/27/18 08:25 03/27/18 08:25 03/27/18 08:25 03/27/18 08:25 - Medications Medications: Current Medications Acetaminophen (Tylenol 325mg Tab) 650 mg PO Q4 PRN PRN Reason: Pain, Mild (1-3) Aspirin (Aspirin) 325 mg PO DAILY [facility] Last Admin: 03/27/18 08:17 Dose: 325 mg Bisacodyl (Dulcolax) 10 mg [place] DAILY PRN PRN Reason: Constipation Clopidogrel Bisulfate (Plavix) 75 mg PO DAILY [facility] Last Admin: 03/27/18 08:16 Dose: 75 mg Dimethicone (Proshield Plus Skin Protectant) 1 applic TOP QSHIFT [facility] Last Admin: 03/26/18 22:07 Dose: 1 applic Docusate Sodium (Colace) 100 mg PO DAILY [facility] Last Admin: 03/27/18 08:16 Dose: 100 mg Escitalopram Oxalate (Lexapro) 5 mg PO HS [facility] Last Admin: 03/26/18 22:03 Dose: 5 mg Famotidine (Pepcid) 20 mg PO DAILY [facility] Last Admin: 03/27/18 08:16 Dose: 20 mg Ferrous Sulfate (Feosol) 325 mg PO DAILY [facility] Last Admin: 03/27/18 08:16 Dose: 325 mg Cefepime HCl 1 gm/ Sodium (Chloride) 100 mls @ 100 mls/hr IVPB DAILY [facility] PRN Reason: Protocol Last Admin: 03/27/18 08:19 Dose: 100 mls/hr Heparin Sodium/Dextrose (Heparin 25,000 Units/250ml In D5w) 25,000 units in 250 mls @ 7 mls/hr IV .Q24H [facility] PRN Reason: Protocol Last Titration: 03/26/18 18:43 Dose: 5.5 mls/hr Isosorbide Mononitrate (Imdur Er) 30 mg PO DAILY [facility] Last Admin: 03/27/18 08:16 Dose: 30 mg Magnesium Hydroxide (Milk Of Magnesia) 30 ml PO HS PRN PRN Reason: Constipation Memantine (Namenda) 5 mg PO BID [facility] Last Admin: 03/27/18 08:17 Dose: 5 mg Metoprolol Tartrate (Lopressor) 25 mg PO Q12 [facility] Last Admin: 03/27/18 08:16 Dose: 25 mg Multivitamins/Minerals (Therapeutic-M Tab) 1 tab PO DAILY [facility] Last Admin: 03/27/18 08:16 Dose: 1 tab Silver Sulfadiazine (Silvadene 1% 50 Gm) 1 applic TOP BID [facility] Last Admin: 03/26/18 17:13 Dose: Not Given Sodium Hypochlorite (Dakins Solution 0.125%) 1 appl TOP QD7 [facility] Last Admin: 03/27/18 08:14 Dose: Not Given - Labs Labs: 03/26/18 06:15 03/26/18 06:15 PT 13.5 Seconds (9.8-13.1) H 03/25/18 18:33 INR 1.2 03/25/18 18:33 APTT 76.1 Seconds (25.6-37.1) H 03/26/18 17:39 - Respiratory Exam Respiratory Exam: Decreased Breath Sounds - Cardiovascular Exam Cardiovascular Exam: REGULAR RHYTHM, +S1, +S2 - Extremities Exam Additional comments: WITH SURGICAL DRESSINGS BUT TOES OF BOTH FEET ARE CYANOTIC AND GANGRENOUS - Additional Findings Additional findings: NEPHROLOGY, RENAL AND PODIATRY NOTES REVIEWED CR 1.6 Assessment and Plan - Assessment and Plan (Free Text) Assessment: CAD PAD ABBEY HYPERTENSION COPD Plan: CONTINUE IV FLUIDS, HEPARIN, ASA, CLOPIDOGREL, ISOSORBIDE, METOPROLOL AND ANTIBIOTICS FOR ANGIOGRAPHY OF BOTH LE AND POSSIBLE CORONARY CATH ONCE RENAL FUNCTION IS IMPROVED
--- NOTE | 2018-03-27 10:42 | CP.PCM.PN ---
Subjective - Date & Time of Evaluation Date of Evaluation: 03/27/18 Time of Evaluation: 10:40 - Subjective Subjective: Patient M bed no significant changes reported. Vital sign Noted No Nausea no vomiting Objective - Vital Signs/Intake and Output Vital Signs (last 24 hours): Temp Pulse Resp BP Pulse Ox 97.5 F L 98 H 20 125/69 96 03/27/18 08:25 03/27/18 08:25 03/27/18 08:25 03/27/18 08:25 03/27/18 08:25 - Medications Medications: Current Medications Acetaminophen (Tylenol 325mg Tab) 650 mg PO Q4 PRN PRN Reason: Pain, Mild (1-3) Aspirin (Aspirin) 325 mg PO DAILY [facility] Last Admin: 03/27/18 08:17 Dose: 325 mg Bisacodyl (Dulcolax) 10 mg [place] DAILY PRN PRN Reason: Constipation Clopidogrel Bisulfate (Plavix) 75 mg PO DAILY [facility] Last Admin: 03/27/18 08:16 Dose: 75 mg Dimethicone (Proshield Plus Skin Protectant) 1 applic TOP QSHIFT [facility] Last Admin: 03/26/18 22:07 Dose: 1 applic Docusate Sodium (Colace) 100 mg PO DAILY [facility] Last Admin: 03/27/18 08:16 Dose: 100 mg Escitalopram Oxalate (Lexapro) 5 mg PO HS [facility] Last Admin: 03/26/18 22:03 Dose: 5 mg Famotidine (Pepcid) 20 mg PO DAILY [facility] Last Admin: 03/27/18 08:16 Dose: 20 mg Ferrous Sulfate (Feosol) 325 mg PO DAILY [facility] Last Admin: 03/27/18 08:16 Dose: 325 mg Cefepime HCl 1 gm/ Sodium (Chloride) 100 mls @ 100 mls/hr IVPB DAILY [facility] PRN Reason: Protocol Last Admin: 03/27/18 08:19 Dose: 100 mls/hr Heparin Sodium/Dextrose (Heparin 25,000 Units/250ml In D5w) 25,000 units in 250 mls @ 7 mls/hr IV .Q24H [facility] PRN Reason: Protocol Last Titration: 03/26/18 18:43 Dose: 5.5 mls/hr Isosorbide Mononitrate (Imdur Er) 30 mg PO DAILY [facility] Last Admin: 03/27/18 08:16 Dose: 30 mg Magnesium Hydroxide (Milk Of Magnesia) 30 ml PO HS PRN PRN Reason: Constipation Memantine (Namenda) 5 mg PO BID [facility] Last Admin: 03/27/18 08:17 Dose: 5 mg Metoprolol Tartrate (Lopressor) 25 mg PO Q12 [facility] Last Admin: 03/27/18 08:16 Dose: 25 mg Multivitamins/Minerals (Therapeutic-M Tab) 1 tab PO DAILY [facility] Last Admin: 03/27/18 08:16 Dose: 1 tab Silver Sulfadiazine (Silvadene 1% 50 Gm) 1 applic TOP BID [facility] Last Admin: 03/26/18 17:13 Dose: Not Given Sodium Hypochlorite (Dakins Solution 0.125%) 1 appl TOP QD7 [facility] Last Admin: 03/27/18 08:14 Dose: Not Given - Labs Labs: 03/26/18 06:15 03/26/18 06:15 PT 13.5 Seconds (9.8-13.1) H 03/25/18 18:33 INR 1.2 03/25/18 18:33 APTT 76.1 Seconds (25.6-37.1) H 03/26/18 17:39 - Constitutional Appears: No Acute Distress - Eye Exam Eye Exam: Conjunctival injection - ENT Exam ENT Exam: Mucous Membranes Dry - Neck Exam Neck Exam: absent: Lymphadenopathy - Respiratory Exam Respiratory Exam: NORMAL BREATHING PATTERN. absent: Chest Wall Tenderness - Cardiovascular Exam Cardiovascular Exam: absent: Gallop, JVD, Rubs - GI/Abdominal Exam GI & Abdominal Exam: Normal Bowel Sounds - Extremities Exam Extremities Exam: absent: Calf Tenderness - Back Exam Back Exam: absent: CVA tenderness (L), CVA tenderness (R) - Neurological Exam Neurological Exam: Alert - Psychiatric Exam Psychiatric exam: Normal Affect - Skin Skin Exam: absent: Cyanosis Assessment and Plan (1) Bilateral leg ulcer Status: Acute (2) ABBEY (acute kidney injury) Assessment & Plan: Patient appeared to have acute kidney injury perhaps related to multifactorial. appeared to be dehydrated. serum creatinine improving coming down to 1.6 however her base serum creatinine 1.0 Bilateral leg ulcers Diabetes mellitus leukocytosis improving Recommendation and plan IV fluid continue monitoring Repeat BMP tomorrow morning blood tests from today was not done Status: Acute
[2018-03-27] MEDS: Silver Sulfadiazine 1% CREAM (50 gm) TOP SCH ×2 (11:15→16:15)
[2018-03-27 11:17] LABS: ALB/GLOB RATIO 0.7 (1.0-2.1); ALBUMIN 2.1 g/dL (3.5-5.0); CALCIUM 7.7 mg/dL (8.4-10.2)
[2018-03-27 11:37] LABS: HEMOGLOBIN 8.6 g/dL (12.0-16.0); MEAN CELL VOLUME 77.6 fl (81.0-99.0); MEAN CORPUSCULAR HEMOGLOBIN 23.2 pg (27.0-31.0); MEAN CORPUSCULAR HGB CONC 29.9 g/dL (33.0-37.0); RBC 3.68 Mil/uL (3.80-5.20); RED CELL DISTRIBUTION WIDTH 22.9 % (11.5-14.5); WHITE BLOOD COUNT 12.5 K/uL (4.8-10.8)
[2018-03-27] MEDS: Heparin 25,000units in D5W 25,000 UNITS/250 ML BAG IV SCH (16:04)
[2018-03-27] MEDS: Dextrose 5%/0.45% NS 1,000 ML IV SCH (16:12)
--- NOTE | 2018-03-27 21:00 | CP.PCM.PN ---
Subjective - Date & Time of Evaluation Date of Evaluation: 03/27/18 Time of Evaluation: 22:22 - Subjective Subjective: Above noted WBC 13K Creat 1.3 Objective - Vital Signs/Intake and Output Vital Signs (last 24 hours): Temp Pulse Resp BP Pulse Ox 97 F L 86 20 150/79 98 03/27/18 17:00 03/27/18 17:00 03/27/18 17:00 03/27/18 17:00 03/27/18 17:00 Intake and Output: 03/27/18 03/28/18 18:59 06:59 Intake Total 123.1 Balance 123.1 - Medications Medications: Current Medications Acetaminophen (Tylenol 325mg Tab) 650 mg PO Q4 PRN PRN Reason: Pain, Mild (1-3) Aspirin (Aspirin) 325 mg PO DAILY [facility] Last Admin: 03/27/18 08:17 Dose: 325 mg Bisacodyl (Dulcolax) 10 mg [place] DAILY PRN PRN Reason: Constipation Clopidogrel Bisulfate (Plavix) 75 mg PO DAILY [facility] Last Admin: 03/27/18 08:16 Dose: 75 mg Dimethicone (Proshield Plus Skin Protectant) 1 applic TOP QSHIFT [facility] Last Admin: 03/26/18 22:07 Dose: 1 applic Docusate Sodium (Colace) 100 mg PO DAILY [facility] Last Admin: 03/27/18 08:16 Dose: 100 mg Escitalopram Oxalate (Lexapro) 5 mg PO HS [facility] Last Admin: 03/26/18 22:03 Dose: 5 mg Famotidine (Pepcid) 20 mg PO DAILY [facility] Last Admin: 03/27/18 08:16 Dose: 20 mg Ferrous Sulfate (Feosol) 325 mg PO DAILY [facility] Last Admin: 03/27/18 08:16 Dose: 325 mg Cefepime HCl 1 gm/ Sodium (Chloride) 100 mls @ 100 mls/hr IVPB DAILY [facility] PRN Reason: Protocol Last Admin: 03/27/18 08:19 Dose: 100 mls/hr Heparin Sodium/Dextrose (Heparin 25,000 Units/250ml In D5w) 25,000 units in 250 mls @ 7 mls/hr IV .Q24H [facility] PRN Reason: Protocol Last Admin: 03/27/18 16:04 Dose: 5.5 mls/hr Dextrose/Sodium Chloride (Dextrose 5%/0.45% Ns 1000 Ml) 1,000 mls @ 60 mls/hr IV .[id number] [facility] Stop: 03/28/18 14:56 Last Admin: 03/27/18 16:12 Dose: 60 mls/hr Isosorbide Mononitrate (Imdur Er) 30 mg PO DAILY [facility] Last Admin: 03/27/18 08:16 Dose: 30 mg Magnesium Hydroxide (Milk Of Magnesia) 30 ml PO HS PRN PRN Reason: Constipation Memantine (Namenda) 5 mg PO BID [facility] Last Admin: 03/27/18 16:14 Dose: 5 mg Metoprolol Tartrate (Lopressor) 25 mg PO Q12 [facility] Last Admin: 03/27/18 08:16 Dose: 25 mg Multivitamins/Minerals (Therapeutic-M Tab) 1 tab PO DAILY [facility] Last Admin: 03/27/18 08:16 Dose: 1 tab Silver Sulfadiazine (Silvadene 1% 50 Gm) 1 applic TOP BID [facility] Last Admin: 03/27/18 16:15 Dose: Not Given Sodium Hypochlorite (Dakins Solution 0.125%) 1 appl TOP QD7 [facility] Last Admin: 03/27/18 08:14 Dose: Not Given - Labs Labs: 03/27/18 11:31 03/27/18 10:20 PT 13.5 Seconds (9.8-13.1) H 03/25/18 18:33 INR 1.2 03/25/18 18:33 APTT 50.7 Seconds (25.6-37.1) H 03/27/18 16:20 - Respiratory Exam Respiratory Exam: NORMAL BREATHING PATTERN - Cardiovascular Exam Cardiovascular Exam: Tachycardia - GI/Abdominal Exam GI & Abdominal Exam: Normal Bowel Sounds Assessment and Plan - Assessment and Plan (Free Text) Assessment: PVD S/P Angioplasty Stents Low ext edema cellulitis gangrene Local wound care IV ABX DAPT Heparin ID Podiatry Surgery Physiatry Cardiology (Inv) ABBEY/ CKD creat 1.6 IVF Nephrology US Kidney WNl Angiogram??? Altered mental status Toxic metabolic encephalopathy Adj disorder Depression Psychiatry Psychology Neurolgy SSRI D/C Tramadol and Namenda Hx CHF Diastolic CAD stress thalium scarring ischemia?? cardiac cath Cardiology Hx COPD L Pleural effusion Pulmonary Hx Anemia Chronic dx ASA d/c as outpt due to dec Hbg S/P Procrit transfusion NIDDM Thyroid dx
--- NOTE | 2018-03-27 22:33 | PN ---
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 Her glycemic levels are fluctuating but much improved at this time and her oral intake remains variable as per the nursing staff. Her glucose levels have ranged from 123 to 137 mg/dL. It was 113 at breakfast time this morning and 107 at bedtime. LABORATORY DATA: Her latest chemistry showed a BUN of 45, sodium 140, potassium 4.1, chloride 112, CO2 of 18, glucose 117, and creatinine 1.3. ASSESSMENT AND PLAN: So, at this time, we will continue the present medical management and we will actually hold off on the resumption of her oral hypoglycemic therapy because of the variability of her oral intake with suboptimal meal portions. We will obtain serial chemistries and supplement accordingly as needed. We will also obtain serial thyroid studies and determine the need to resume her medical therapy for hyperthyroidism as indicated. We will follow. Lucia Corley MD
--- NOTE | 2018-03-27 22:57 | PN ---
Copied To: Josselyn Guerrero MD Attending MD: Josselyn Guerrero MD DATE: 03/27/2018 NEUROLOGY PROGRESS NOTE SUBJECTIVE: The patient is lying on the bed, in no acute distress. Denies having any headache or dizziness. PHYSICAL EXAMINATION: VITAL SIGNS: Her blood pressure is 150/79, heart rate is 86 per minute, breathing at the rate of 16 per minute, temperature 97 degrees Fahrenheit. HEENT: Head is normocephalic and atraumatic. NECK: Supple. There are no carotid bruits. LUNGS: Clear. CVS: S1 and S2 are audible. No murmurs. ABDOMEN: Soft and nontender. Bowel sounds present. NEUROLOGIC EXAMINATION: Mental status: The patient is awake and alert. She follows simple commands. She knows she is in the hospital. She does not know the year or the month. Cranial nerve examination: Pupils are 3 mm bilaterally, reactive to light. Visual arthur are full. Extraocular movements are intact. There is no facial asymmetry. Motor examination: Tone is normal. She is moving all four extremities. There is no gross dysmetria. LABORATORY DATA: Labs reviewed. CT scan of the head shows age-related neurodegenerative findings throughout the cerebrum with posterior fossa contents and brainstem remaining unremarkable. IMPRESSION: 1. Altered mental status secondary to toxic metabolic encephalopathy, which seems to be getting better. 2. Cellulitis of the lower extremities. 3. Underlying dementia. 4. Renal insufficiency. RECOMMENDATIONS: 1. The patient's mental status seems to be better than before. 2. The patient had an electroencephalogram done; however, the report is still awaited. 3. The patient to be continued on IV antibiotics. 4. The patient to be continued on Namenda. 5. Please continue supportive care and other treatment. Thank you for the opportunity to participate in the care of this patient. Josselyn Guerrero MD
--- NOTE | 2018-03-28 06:13 | CP.PCM.PN ---
Subjective - Date & Time of Evaluation Date of Evaluation: 03/28/18 Time of Evaluation: 06:11 - Subjective Subjective: Podiatry Consult Note for Dr. Briseno: 77 year old female patient seen and evaluated for bilateral extensive nectrotic lower extremity ulcerations secondary to PMHx of DM and PVD. Patient in moderate pain today and hesitant to have lower extremity wounds evaluated and dressing changed. Denies N/V/F/SOB/CP. Objective - Vital Signs/Intake and Output Vital Signs (last 24 hours): Temp Pulse Resp BP Pulse Ox 97.7 F 71 19 122/70 96 03/28/18 00:00 03/28/18 00:00 03/28/18 00:00 03/28/18 00:00 03/28/18 00:00 Intake and Output: 03/27/18 03/28/18 18:59 06:59 Intake Total 123.1 Balance 123.1 - Medications Medications: Current Medications Acetaminophen (Tylenol 325mg Tab) 650 mg PO Q4 PRN PRN Reason: Pain, Mild (1-3) Last Admin: 03/28/18 00:54 Dose: 650 mg Aspirin (Aspirin) 325 mg PO DAILY [facility] Last Admin: 03/27/18 08:17 Dose: 325 mg Bisacodyl (Dulcolax) 10 mg [place] DAILY PRN PRN Reason: Constipation Clopidogrel Bisulfate (Plavix) 75 mg PO DAILY [facility] Last Admin: 03/27/18 08:16 Dose: 75 mg Dimethicone (Proshield Plus Skin Protectant) 1 applic TOP QSHIFT [facility] Last Admin: 03/26/18 22:07 Dose: 1 applic Docusate Sodium (Colace) 100 mg PO DAILY [facility] Last Admin: 03/27/18 08:16 Dose: 100 mg Escitalopram Oxalate (Lexapro) 5 mg PO HS [facility] Last Admin: 03/27/18 21:46 Dose: 5 mg Famotidine (Pepcid) 20 mg PO DAILY [facility] Last Admin: 03/27/18 08:16 Dose: 20 mg Ferrous Sulfate (Feosol) 325 mg PO DAILY [facility] Last Admin: 03/27/18 08:16 Dose: 325 mg Cefepime HCl 1 gm/ Sodium (Chloride) 100 mls @ 100 mls/hr IVPB DAILY [facility] PRN Reason: Protocol Last Admin: 03/27/18 08:19 Dose: 100 mls/hr Heparin Sodium/Dextrose (Heparin 25,000 Units/250ml In D5w) 25,000 units in 250 mls @ 7 mls/hr IV .Q24H [facility] PRN Reason: Protocol Last Admin: 03/27/18 16:04 Dose: 5.5 mls/hr Dextrose/Sodium Chloride (Dextrose 5%/0.45% Ns 1000 Ml) 1,000 mls @ 60 mls/hr IV .[id number] [facility] Stop: 03/28/18 14:56 Last Admin: 03/27/18 16:12 Dose: 60 mls/hr Isosorbide Mononitrate (Imdur Er) 30 mg PO DAILY [facility] Last Admin: 03/27/18 08:16 Dose: 30 mg Magnesium Hydroxide (Milk Of Magnesia) 30 ml PO HS PRN PRN Reason: Constipation Memantine (Namenda) 5 mg PO BID [facility] Last Admin: 03/27/18 16:14 Dose: 5 mg Metoprolol Tartrate (Lopressor) 25 mg PO Q12 [facility] Last Admin: 03/27/18 21:46 Dose: 25 mg Multivitamins/Minerals (Therapeutic-M Tab) 1 tab PO DAILY [facility] Last Admin: 03/27/18 08:16 Dose: 1 tab Silver Sulfadiazine (Silvadene 1% 50 Gm) 1 applic TOP BID [facility] Last Admin: 03/27/18 16:15 Dose: Not Given Sodium Hypochlorite (Dakins Solution 0.125%) 1 appl TOP QD7 [facility] Last Admin: 03/27/18 08:14 Dose: Not Given - Labs Labs: 03/27/18 11:31 03/27/18 10:20 PT 13.5 Seconds (9.8-13.1) H 03/25/18 18:33 INR 1.2 03/25/18 18:33 APTT 50.7 Seconds (25.6-37.1) H 03/27/18 16:20 - Constitutional Appears: Well, Non-toxic, No Acute Distress - Head Exam Head Exam: ATRAUMATIC, NORMOCEPHALIC - Extremities Exam Additional comments: Vasc: DP/PT pulses non-palpable, Temp gradient cool to cool, Cap refill delayed to digits/not attainable due to necrosis of 2-5 on right foot Ortho: Bilateral lower extremities painful upon palpation Neuro: Gross sensation intact and protective sensation diminished bilaterally Derm: Multiple ulcerations noted to the entire lower extremity with mixture of fibrotic/necrotic wound base: Erythema to the entire lower extremity with R>L, significantly malodorous, all sites (-) for purulence, probe to bone, tunneling or undermining. RIGHT: 1) Necrotic right heel eschar unstagable with no drainage noted measuring 9.0 cm X 7.0 cm 2) Circumferential ulceration to the medial posterior aspect measuring 21 cm in length, fibrotic edges, peroneal tendon exposed, drainage noted 3) necrotic 2nd and 3rd digits till the level of the MPTJ, dorsally necrotic 4th digit t the level of the MTPJ 4) fibro/necrotic ulceration to the dorsal aspect of the hallux at the PIPJ measuring 3.0 cmX 2.5 cm 5) fibro/necrotic ulceration to the dorsal forefoot measuring 2.5 cm X 1.8 cm 6) fibro/necrotic ulceration noted to the medial ankle distal to the medial malleolus measuring 4. 0 X 2.0 cm, + fluctuance noted 7) fibro/necrotic ulceration to the anterior tibial tuberosity measuring 3.0 X 1.0 cm 8) circular ulceration noted to the medial aspect of the leg at the level of the tibial tuberosity measuring 2.4 cm X 2.6 cm x1.5 with 80% graular and 20% fibrotic bases, surrounding erythema 9) multiple stable eschars to the knee 10) New wound noted to the right hallux with minimal bleeding LEFT: 1) echar to the heel, necrotic, measuring 5.0 cm X 6.0 cm 2) fibro/necrotic ulceration to the dorsal aspect of the foot, with fibrotic edges, positive drainage, dusky appearance extending proximally and beginning to demarcate 3) fibro/necrotic ulceration to the medial aspect of the leg measuring 5.0 c, X 3.0 cm 4) gangranous changes to the tip of the hallux, and to the dorsum of the 2nd digit, dusky appearance to hallux 5) multipe eschars to the tibial tuberosity, stable in nature - Neurological Exam Neurological Exam: Alert, Awake, Oriented x3 - Psychiatric Exam Psychiatric exam: Normal Affect, Normal Mood Assessment and Plan - Assessment and Plan (Free Text) Assessment: 77 year old female patient seen and evaluated at bedside for bilateral extensive necrotic lower extremity ulcerations. Plan: Patient seen and evaluated at bedside with Dr. Briseno Patient chart, labs and vitals reviewed: Afebrile Continue IV abx per ID reccs, Cefepime 1gm IV F/U with nephro clearance for peripheral angio planning X-ray foot bilaterally: No signs of acute osseous changes. Proximal tib-fibula X-ray: multiple deep ulcers, no evidence of osteomyelitis. Bilateral wound culture 03/20/18: E. Coli (Final) B/L lower extremity ulcerations evaluated, will continue to monitor lesions and their progression; Dressing changed to bilateral lower extremities with Dakins, Adaptic, ABD, and DSD Multipodus boots ordered; patient to wear at all times while in bed Podiatry will continue to follow while patient is in house
[2018-03-28] MEDS: Dextrose 5%/0.45% NS 1,000 ML IV SCH (07:33)
[2018-03-28] MEDS: Multivitamin With Minerals Tab PO SCH (08:21)
[2018-03-28] MEDS: Cefepime 1 GM in Sodium Chloride 0.9% 100 ML IVPB SCH (08:23)
[2018-03-28] MEDS: Silver Sulfadiazine 1% CREAM (50 gm) TOP SCH ×2 (09:00→18:07)
--- NOTE | 2018-03-28 10:32 | CP.PCM.PN ---
Subjective - Date & Time of Evaluation Date of Evaluation: 03/28/18 Time of Evaluation: 09:00 - Subjective Subjective: ONLY COMPLAINT IS FOOT PAIN Objective - Vital Signs/Intake and Output Vital Signs (last 24 hours): Temp Pulse Resp BP Pulse Ox 97.5 F L 65 18 125/68 98 03/28/18 09:00 03/28/18 09:00 03/28/18 09:00 03/28/18 09:00 03/28/18 09:00 - Medications Medications: Current Medications Acetaminophen (Tylenol 325mg Tab) 650 mg PO Q4 PRN PRN Reason: Pain, Mild (1-3) Last Admin: 03/28/18 00:54 Dose: 650 mg Aspirin (Aspirin) 325 mg PO DAILY [facility] Last Admin: 03/28/18 08:21 Dose: 325 mg Bisacodyl (Dulcolax) 10 mg [place] DAILY PRN PRN Reason: Constipation Clopidogrel Bisulfate (Plavix) 75 mg PO DAILY [facility] Last Admin: 03/28/18 08:21 Dose: 75 mg Dimethicone (Proshield Plus Skin Protectant) 1 applic TOP QSHIFT [facility] Last Admin: 03/26/18 22:07 Dose: 1 applic Docusate Sodium (Colace) 100 mg PO DAILY [facility] Last Admin: 03/28/18 08:21 Dose: 100 mg Escitalopram Oxalate (Lexapro) 5 mg PO HS [facility] Last Admin: 03/27/18 21:46 Dose: 5 mg Famotidine (Pepcid) 20 mg PO DAILY [facility] Last Admin: 03/28/18 08:22 Dose: 20 mg Ferrous Sulfate (Feosol) 325 mg PO DAILY [facility] Last Admin: 03/28/18 08:21 Dose: 325 mg Cefepime HCl 1 gm/ Sodium (Chloride) 100 mls @ 100 mls/hr IVPB DAILY [facility] PRN Reason: Protocol Last Admin: 03/28/18 08:23 Dose: 100 mls/hr Heparin Sodium/Dextrose (Heparin 25,000 Units/250ml In D5w) 25,000 units in 250 mls @ 7 mls/hr IV .Q24H [facility] PRN Reason: Protocol Last Admin: 03/27/18 16:04 Dose: 5.5 mls/hr Dextrose/Sodium Chloride (Dextrose 5%/0.45% Ns 1000 Ml) 1,000 mls @ 60 mls/hr IV .[id number] [facility] Stop: 03/28/18 14:56 Last Admin: 03/28/18 07:33 Dose: 60 mls/hr Isosorbide Mononitrate (Imdur Er) 30 mg PO DAILY [facility] Last Admin: 03/28/18 08:21 Dose: 30 mg Magnesium Hydroxide (Milk Of Magnesia) 30 ml PO HS PRN PRN Reason: Constipation Memantine (Namenda) 5 mg PO BID [facility] Last Admin: 03/28/18 08:21 Dose: 5 mg Metoprolol Tartrate (Lopressor) 25 mg PO Q12 [facility] Last Admin: 03/28/18 08:22 Dose: 25 mg Multivitamins/Minerals (Therapeutic-M Tab) 1 tab PO DAILY [facility] Last Admin: 03/28/18 08:21 Dose: 1 tab Silver Sulfadiazine (Silvadene 1% 50 Gm) 1 applic TOP BID [facility] Last Admin: 03/27/18 16:15 Dose: Not Given Sodium Hypochlorite (Dakins Solution 0.125%) 1 appl TOP QD7 [facility] Last Admin: 03/28/18 07:31 Dose: Not Given - Labs Labs: 03/27/18 11:31 03/27/18 10:20 PT 13.5 Seconds (9.8-13.1) H 03/25/18 18:33 INR 1.2 03/25/18 18:33 APTT 50.7 Seconds (25.6-37.1) H 03/27/18 16:20 - Respiratory Exam Respiratory Exam: Decreased Breath Sounds - Cardiovascular Exam Cardiovascular Exam: REGULAR RHYTHM, +S1, +S2 - Extremities Exam Additional comments: MULTIPODUS BOOTS ON BOTH LE - Additional Findings Additional findings: BUN/CR 45/1.3 WITH GFR OF 40 ON 03/27/18 Assessment and Plan - Assessment and Plan (Free Text) Assessment: CAD HYPERTENSION SEVERE PAD COPD Plan: CONTINUE ASPIRIN, CLOPIDOGREL, HEPARIN, METOPROLOL, ISOSORBIDE AND IV ANTIBIOTICS DR PINA SPOKEN TO AND PATIENT IS FOR PROBABLE BILAT LE ANGIO AND CORONARY ANGIO FOR SATURDAY RENAL FUNCTION HAS IMPROVED
--- NOTE | 2018-03-28 10:38 | CP.PCM.PN ---
Subjective - Date & Time of Evaluation Date of Evaluation: 03/28/18 Time of Evaluation: 22:22 - Subjective Subjective: above noted WBC 12.5 Creat 1.3 Objective - Vital Signs/Intake and Output Vital Signs (last 24 hours): Temp Pulse Resp BP Pulse Ox 97.5 F L 65 18 125/68 98 03/28/18 09:00 03/28/18 09:00 03/28/18 09:00 03/28/18 09:00 03/28/18 09:00 - Medications Medications: Current Medications Acetaminophen (Tylenol 325mg Tab) 650 mg PO Q4 PRN PRN Reason: Pain, Mild (1-3) Last Admin: 03/28/18 00:54 Dose: 650 mg Aspirin (Aspirin) 325 mg PO DAILY [facility] Last Admin: 03/28/18 08:21 Dose: 325 mg Bisacodyl (Dulcolax) 10 mg [place] DAILY PRN PRN Reason: Constipation Clopidogrel Bisulfate (Plavix) 75 mg PO DAILY [facility] Last Admin: 03/28/18 08:21 Dose: 75 mg Dimethicone (Proshield Plus Skin Protectant) 1 applic TOP QSHIFT [facility] Last Admin: 03/26/18 22:07 Dose: 1 applic Docusate Sodium (Colace) 100 mg PO DAILY [facility] Last Admin: 03/28/18 08:21 Dose: 100 mg Escitalopram Oxalate (Lexapro) 5 mg PO HS [facility] Last Admin: 03/27/18 21:46 Dose: 5 mg Famotidine (Pepcid) 20 mg PO DAILY [facility] Last Admin: 03/28/18 08:22 Dose: 20 mg Ferrous Sulfate (Feosol) 325 mg PO DAILY [facility] Last Admin: 03/28/18 08:21 Dose: 325 mg Cefepime HCl 1 gm/ Sodium (Chloride) 100 mls @ 100 mls/hr IVPB DAILY [facility] PRN Reason: Protocol Last Admin: 03/28/18 08:23 Dose: 100 mls/hr Heparin Sodium/Dextrose (Heparin 25,000 Units/250ml In D5w) 25,000 units in 250 mls @ 7 mls/hr IV .Q24H [facility] PRN Reason: Protocol Last Admin: 03/27/18 16:04 Dose: 5.5 mls/hr Dextrose/Sodium Chloride (Dextrose 5%/0.45% Ns 1000 Ml) 1,000 mls @ 60 mls/hr IV .[id number] [facility] Stop: 03/28/18 14:56 Last Admin: 03/28/18 07:33 Dose: 60 mls/hr Isosorbide Mononitrate (Imdur Er) 30 mg PO DAILY [facility] Last Admin: 03/28/18 08:21 Dose: 30 mg Magnesium Hydroxide (Milk Of Magnesia) 30 ml PO HS PRN PRN Reason: Constipation Memantine (Namenda) 5 mg PO BID [facility] Last Admin: 03/28/18 08:21 Dose: 5 mg Metoprolol Tartrate (Lopressor) 25 mg PO Q12 [facility] Last Admin: 03/28/18 08:22 Dose: 25 mg Multivitamins/Minerals (Therapeutic-M Tab) 1 tab PO DAILY [facility] Last Admin: 03/28/18 08:21 Dose: 1 tab Silver Sulfadiazine (Silvadene 1% 50 Gm) 1 applic TOP BID [facility] Last Admin: 03/27/18 16:15 Dose: Not Given Sodium Hypochlorite (Dakins Solution 0.125%) 1 appl TOP QD7 [facility] Last Admin: 03/28/18 07:31 Dose: Not Given - Labs Labs: 03/27/18 11:31 03/27/18 10:20 PT 13.5 Seconds (9.8-13.1) H 03/25/18 18:33 INR 1.2 03/25/18 18:33 APTT 50.7 Seconds (25.6-37.1) H 03/27/18 16:20 - Respiratory Exam Respiratory Exam: NORMAL BREATHING PATTERN - Cardiovascular Exam Cardiovascular Exam: REGULAR RHYTHM - GI/Abdominal Exam GI & Abdominal Exam: Normal Bowel Sounds Assessment and Plan - Assessment and Plan (Free Text) Assessment: PVD S/P Angioplasty Stents Low ext edema cellulitis gangrene Local wound care IV ABX DAPT Heparin ID Podiatry Surgery Physiatry Cardiology (Inv) ABBEY/ CKD creat 1.3 IVF Nephrology US Kidney WNl Altered mental status Toxic metabolic encephalopathy Adj disorder Depression Psychiatry Psychology Neurolgy SSRI D/C Tramadol and Namenda Hx CHF Diastolic CAD stress thalium scarring ischemia?? cardiac cath Cardiology Hx COPD L Pleural effusion Pulmonary Hx Anemia Chronic dx ASA d/c as outpt due to dec Hbg S/P Procrit transfusion NIDDM Thyroid dx
--- NOTE | 2018-03-28 10:52 | CP.PCM.CON ---
History of Present Illness - History of Present Illness History of Present Illness: Pt seen for supportive therapy. Pt well known to the functional tester typewriters from her previous [facility] and [facility] admissions. pt recognized the functional tester typewriters, was able to state the day she is ususally present though was unable to provide her name. pt alert, not oriented to month and day. Pt able to provide year. Pt positive for cognitive deficits, increased from weeks prior. Support provided over status and patient encouraged toward medical compliance, compliance with medications and procedures recommended. visitor services assistant contacted. During the visit with the functional tester typewriters, patient consented to placement of the Pic line for antibiotic use. plan: continued sup therapy cognitive testing. Past Patient History - Infectious Disease Hx of Infectious Diseases: None - Past Medical History & Family History Past Medical History?: Yes - Past Social History Smoking Status: Former Smoker - CARDIAC Hx Congestive Heart Failure: Yes Hx Hypercholesterolemia: Yes Hx Hypertension: Yes Hx Peripheral Edema: Yes - PULMONARY Hx Bronchitis: Yes Hx Chronic Obstructive Pulmonary Disease (COPD): Yes Hx Pneumonia: Yes - NEUROLOGICAL Other/Comment: Paresthesias of both feet - HEENT Hx HEENT Problems: No - RENAL Hx Chronic Kidney Disease: Yes - ENDOCRINE/METABOLIC Hx Hyperthyroidism: Yes - HEMATOLOGICAL/ONCOLOGICAL Hx AIDS: No Hx Anemia: Yes Hx Human Immunodeficiency Virus (HIV): No - INTEGUMENTARY Hx Dermatological Problems: Yes Hx Cellulitis: Yes - MUSCULOSKELETAL/RHEUMATOLOGICAL Hx Musculoskeletal Disorders: Yes Hx Falls: Yes - GASTROINTESTINAL Hx Gastrointestinal Disorders: No - GENITOURINARY/GYNECOLOGICAL Hx Genitourinary Disorders: No - PSYCHIATRIC Hx Psychophysiologic Disorder: Yes Hx Anxiety: Yes Hx Substance Use: No - SURGICAL HISTORY Hx Appendectomy: Yes Other/Comment: kidney stone removal - ANESTHESIA Hx Anesthesia: Yes Hx Anesthesia Reactions: No Hx Malignant Hyperthermia: No Meds Allergies/Adverse Reactions: Allergies Allergy/AdvReac Type Severity Reaction Status Date / Time No Known Allergies Allergy Verified 03/20/18 12:54 - Medications Medications: Current Medications Acetaminophen (Tylenol 325mg Tab) 650 mg PO Q4 PRN PRN Reason: Pain, Mild (1-3) Last Admin: 03/28/18 00:54 Dose: 650 mg Aspirin (Aspirin) 325 mg PO DAILY [facility] Last Admin: 03/28/18 08:21 Dose: 325 mg Bisacodyl (Dulcolax) 10 mg [place] DAILY PRN PRN Reason: Constipation Clopidogrel Bisulfate (Plavix) 75 mg PO DAILY [facility] Last Admin: 03/28/18 08:21 Dose: 75 mg Dimethicone (Proshield Plus Skin Protectant) 1 applic TOP QSHIFT [facility] Last Admin: 03/26/18 22:07 Dose: 1 applic Docusate Sodium (Colace) 100 mg PO DAILY [facility] Last Admin: 03/28/18 08:21 Dose: 100 mg Escitalopram Oxalate (Lexapro) 5 mg PO HS [facility] Last Admin: 03/27/18 21:46 Dose: 5 mg Famotidine (Pepcid) 20 mg PO DAILY [facility] Last Admin: 03/28/18 08:22 Dose: 20 mg Ferrous Sulfate (Feosol) 325 mg PO DAILY [facility] Last Admin: 03/28/18 08:21 Dose: 325 mg Cefepime HCl 1 gm/ Sodium (Chloride) 100 mls @ 100 mls/hr IVPB DAILY [facility] PRN Reason: Protocol Last Admin: 03/28/18 08:23 Dose: 100 mls/hr Heparin Sodium/Dextrose (Heparin 25,000 Units/250ml In D5w) 25,000 units in 250 mls @ 7 mls/hr IV .Q24H [facility] PRN Reason: Protocol Last Admin: 03/27/18 16:04 Dose: 5.5 mls/hr Dextrose/Sodium Chloride (Dextrose 5%/0.45% Ns 1000 Ml) 1,000 mls @ 60 mls/hr IV .[id number] [facility] Stop: 03/28/18 14:56 Last Admin: 03/28/18 07:33 Dose: 60 mls/hr Isosorbide Mononitrate (Imdur Er) 30 mg PO DAILY [facility] Last Admin: 03/28/18 08:21 Dose: 30 mg Magnesium Hydroxide (Milk Of Magnesia) 30 ml PO HS PRN PRN Reason: Constipation Memantine (Namenda) 5 mg PO BID [facility] Last Admin: 03/28/18 08:21 Dose: 5 mg Metoprolol Tartrate (Lopressor) 25 mg PO Q12 [facility] Last Admin: 03/28/18 08:22 Dose: 25 mg Multivitamins/Minerals (Therapeutic-M Tab) 1 tab PO DAILY [facility] Last Admin: 03/28/18 08:21 Dose: 1 tab Silver Sulfadiazine (Silvadene 1% 50 Gm) 1 applic TOP BID [facility] Last Admin: 03/27/18 16:15 Dose: Not Given Sodium Hypochlorite (Dakins Solution 0.125%) 1 appl TOP QD7 [facility] Last Admin: 03/28/18 07:31 Dose: Not Given Results - Vital Signs Recent Vital Signs: Last Vital Signs Temp 97.5 F L 03/28/18 09:00 Pulse 65 03/28/18 09:00 Resp 18 03/28/18 09:00 BP 125/68 03/28/18 09:00 Pulse Ox 98 03/28/18 09:00 - Labs Result Diagrams: 03/27/18 11:31 03/27/18 10:20 Labs: Laboratory Results - last 24 hr 03/24/18 03/27/18 03/27/18 16:25 10:20 10:20 WBC RBC Hgb Hct MCV MCH MCHC RDW Plt Count APTT 51.6 H Sodium 140 Potassium 4.1 Chloride 112 H Carbon Dioxide 18 L Anion Gap 14 BUN 45 H Creatinine 1.3 H Est GFR ( Amer) 48 Est GFR (Non-Af Amer) 40 POC Glucose (mg/dL) Random Glucose 117 H Calcium 7.7 L Phosphorus 3.4 Magnesium 1.8 Total Bilirubin 1.1 AST 14 D ALT 24 Alkaline Phosphatase 98 Total Protein 4.9 L Albumin 2.1 L Globulin 2.8 Albumin/Globulin Ratio 0.7 L Amikacin Trough 14.2 H 03/27/18 03/27/18 03/27/18 11:06 11:31 16:10 WBC 12.5 H RBC 3.68 L Hgb 8.6 L Hct 28.6 L MCV 77.6 L MCH 23.2 L MCHC 29.9 L RDW 22.9 H Plt Count 302 APTT Sodium Potassium Chloride Carbon Dioxide Anion Gap BUN Creatinine Est GFR ( Amer) Est GFR (Non-Af Amer) POC Glucose (mg/dL) 123 H 137 H Random Glucose Calcium Phosphorus Magnesium Total Bilirubin AST ALT Alkaline Phosphatase Total Protein Albumin Globulin Albumin/Globulin Ratio Amikacin Trough 03/27/18 03/28/18 16:20 05:23 WBC RBC Hgb Hct MCV MCH MCHC RDW Plt Count APTT 50.7 H Sodium Potassium Chloride Carbon Dioxide Anion Gap BUN Creatinine Est GFR ( Amer) Est GFR (Non-Af Amer) POC Glucose (mg/dL) 148 H Random Glucose Calcium Phosphorus Magnesium Total Bilirubin AST ALT Alkaline Phosphatase Total Protein Albumin Globulin Albumin/Globulin Ratio Amikacin Trough
[2018-03-28] MEDS: Proshield Plus GEL TOP SCH (11:48)
--- NOTE | 2018-03-28 12:18 | CP.PCM.PN ---
Subjective - Date & Time of Evaluation Date of Evaluation: 03/28/18 Time of Evaluation: 12:16 - Subjective Subjective: patient in bed debilitated appeared to be chronically ill Objective - Vital Signs/Intake and Output Vital Signs (last 24 hours): Temp Pulse Resp BP Pulse Ox 97.5 F L 65 18 125/68 98 03/28/18 09:00 03/28/18 09:00 03/28/18 09:00 03/28/18 09:00 03/28/18 09:00 - Medications Medications: Current Medications Acetaminophen (Tylenol 325mg Tab) 650 mg PO Q4 PRN PRN Reason: Pain, Mild (1-3) Last Admin: 03/28/18 00:54 Dose: 650 mg Aspirin (Aspirin) 325 mg PO DAILY [facility] Last Admin: 03/28/18 08:21 Dose: 325 mg Bisacodyl (Dulcolax) 10 mg [place] DAILY PRN PRN Reason: Constipation Clopidogrel Bisulfate (Plavix) 75 mg PO DAILY [facility] Last Admin: 03/28/18 08:21 Dose: 75 mg Dimethicone (Proshield Plus Skin Protectant) 1 applic TOP QSHIFT [facility] Last Admin: 03/28/18 11:48 Dose: 1 applic Docusate Sodium (Colace) 100 mg PO DAILY [facility] Last Admin: 03/28/18 08:21 Dose: 100 mg Escitalopram Oxalate (Lexapro) 5 mg PO HS [facility] Last Admin: 03/27/18 21:46 Dose: 5 mg Famotidine (Pepcid) 20 mg PO DAILY [facility] Last Admin: 03/28/18 08:22 Dose: 20 mg Ferrous Sulfate (Feosol) 325 mg PO DAILY [facility] Last Admin: 03/28/18 08:21 Dose: 325 mg Cefepime HCl 1 gm/ Sodium (Chloride) 100 mls @ 100 mls/hr IVPB DAILY [facility] PRN Reason: Protocol Last Admin: 03/28/18 08:23 Dose: 100 mls/hr Heparin Sodium/Dextrose (Heparin 25,000 Units/250ml In D5w) 25,000 units in 250 mls @ 7 mls/hr IV .Q24H [facility] PRN Reason: Protocol Last Admin: 03/27/18 16:04 Dose: 5.5 mls/hr Dextrose/Sodium Chloride (Dextrose 5%/0.45% Ns 1000 Ml) 1,000 mls @ 60 mls/hr IV .[id number] [facility] Stop: 03/28/18 14:56 Last Admin: 03/28/18 07:33 Dose: 60 mls/hr Isosorbide Mononitrate (Imdur Er) 30 mg PO DAILY [facility] Last Admin: 03/28/18 08:21 Dose: 30 mg Magnesium Hydroxide (Milk Of Magnesia) 30 ml PO HS PRN PRN Reason: Constipation Memantine (Namenda) 5 mg PO BID [facility] Last Admin: 03/28/18 08:21 Dose: 5 mg Metoprolol Tartrate (Lopressor) 25 mg PO Q12 [facility] Last Admin: 03/28/18 08:22 Dose: 25 mg Multivitamins/Minerals (Therapeutic-M Tab) 1 tab PO DAILY [facility] Last Admin: 03/28/18 08:21 Dose: 1 tab Silver Sulfadiazine (Silvadene 1% 50 Gm) 1 applic TOP BID [facility] Last Admin: 03/28/18 09:00 Dose: Not Given Sodium Hypochlorite (Dakins Solution 0.125%) 1 appl TOP QD7 [facility] Last Admin: 03/28/18 07:31 Dose: Not Given - Labs Labs: 03/27/18 11:31 03/27/18 10:20 PT 13.5 Seconds (9.8-13.1) H 03/25/18 18:33 INR 1.2 03/25/18 18:33 APTT 50.7 Seconds (25.6-37.1) H 03/27/18 16:20 - Constitutional Appears: No Acute Distress - ENT Exam ENT Exam: Mucous Membranes Moist - Neck Exam Neck Exam: absent: Lymphadenopathy - Respiratory Exam Respiratory Exam: absent: Chest Wall Tenderness - Cardiovascular Exam Cardiovascular Exam: absent: Gallop, JVD, Rubs - GI/Abdominal Exam GI & Abdominal Exam: Soft, Normal Bowel Sounds - Extremities Exam Extremities Exam: absent: Calf Tenderness - Back Exam Back Exam: absent: CVA tenderness (L), CVA tenderness (R) - Neurological Exam Neurological Exam: Alert - Psychiatric Exam Psychiatric exam: Flat Affect - Skin Skin Exam: absent: Cyanosis Assessment and Plan (1) Bilateral leg ulcer Status: Acute (2) ABBEY (acute kidney injury) Assessment & Plan: acute kidney injury appeared to be recovering and improving serum creatinine.coming down Bilateral leg ulcer /cellulitis antibiotics as per renal doses as per primary team peripheral vascular disease Status: Acute
--- NOTE | 2018-03-28 13:24 | CP.PCM.PN ---
Subjective - Date & Time of Evaluation Date of Evaluation: 03/28/18 Time of Evaluation: 07:00 - Subjective Subjective: events noted weak and bedridden nad Objective - Vital Signs/Intake and Output Vital Signs (last 24 hours): Temp Pulse Resp BP Pulse Ox 97.5 F L 65 18 125/68 98 03/28/18 09:00 03/28/18 09:00 03/28/18 09:00 03/28/18 09:00 03/28/18 09:00 - Medications Medications: Current Medications Acetaminophen (Tylenol 325mg Tab) 650 mg PO Q4 PRN PRN Reason: Pain, Mild (1-3) Last Admin: 03/28/18 00:54 Dose: 650 mg Aspirin (Aspirin) 325 mg PO DAILY [facility] Last Admin: 03/28/18 08:21 Dose: 325 mg Bisacodyl (Dulcolax) 10 mg [place] DAILY PRN PRN Reason: Constipation Clopidogrel Bisulfate (Plavix) 75 mg PO DAILY [facility] Last Admin: 03/28/18 08:21 Dose: 75 mg Dimethicone (Proshield Plus Skin Protectant) 1 applic TOP QSHIFT [facility] Last Admin: 03/28/18 11:48 Dose: 1 applic Docusate Sodium (Colace) 100 mg PO DAILY [facility] Last Admin: 03/28/18 08:21 Dose: 100 mg Escitalopram Oxalate (Lexapro) 5 mg PO HS [facility] Last Admin: 03/27/18 21:46 Dose: 5 mg Famotidine (Pepcid) 20 mg PO DAILY [facility] Last Admin: 03/28/18 08:22 Dose: 20 mg Ferrous Sulfate (Feosol) 325 mg PO DAILY [facility] Last Admin: 03/28/18 08:21 Dose: 325 mg Cefepime HCl 1 gm/ Sodium (Chloride) 100 mls @ 100 mls/hr IVPB DAILY [facility] PRN Reason: Protocol Last Admin: 03/28/18 08:23 Dose: 100 mls/hr Heparin Sodium/Dextrose (Heparin 25,000 Units/250ml In D5w) 25,000 units in 250 mls @ 7 mls/hr IV .Q24H [facility] PRN Reason: Protocol Last Admin: 03/27/18 16:04 Dose: 5.5 mls/hr Dextrose/Sodium Chloride (Dextrose 5%/0.45% Ns 1000 Ml) 1,000 mls @ 60 mls/hr IV .[id number] [facility] Stop: 03/28/18 14:56 Last Admin: 03/28/18 07:33 Dose: 60 mls/hr Isosorbide Mononitrate (Imdur Er) 30 mg PO DAILY [facility] Last Admin: 03/28/18 08:21 Dose: 30 mg Magnesium Hydroxide (Milk Of Magnesia) 30 ml PO HS PRN PRN Reason: Constipation Memantine (Namenda) 5 mg PO BID [facility] Last Admin: 03/28/18 08:21 Dose: 5 mg Metoprolol Tartrate (Lopressor) 25 mg PO Q12 [facility] Last Admin: 03/28/18 08:22 Dose: 25 mg Multivitamins/Minerals (Therapeutic-M Tab) 1 tab PO DAILY [facility] Last Admin: 03/28/18 08:21 Dose: 1 tab Silver Sulfadiazine (Silvadene 1% 50 Gm) 1 applic TOP BID [facility] Last Admin: 03/28/18 09:00 Dose: Not Given Sodium Hypochlorite (Dakins Solution 0.125%) 1 appl TOP QD7 [facility] Last Admin: 03/28/18 07:31 Dose: Not Given - Labs Labs: 03/27/18 11:31 03/27/18 10:20 PT 13.5 Seconds (9.8-13.1) H 03/25/18 18:33 INR 1.2 03/25/18 18:33 APTT 50.7 Seconds (25.6-37.1) H 03/27/18 16:20 - Constitutional Appears: Non-toxic, Chronically Ill - Head Exam Head Exam: NORMOCEPHALIC - ENT Exam ENT Exam: Normal External Ear Exam - Neck Exam Neck Exam: absent: Lymphadenopathy - Respiratory Exam Respiratory Exam: Decreased Breath Sounds - Cardiovascular Exam Cardiovascular Exam: REGULAR RHYTHM - GI/Abdominal Exam GI & Abdominal Exam: Distended - Rectal Exam Rectal Exam: Deferred - Exam Exam: NORMAL INSPECTION - Back Exam Back Exam: absent: CVA tenderness (L), CVA tenderness (R) - Neurological Exam Neurological Exam: Alert, Awake Assessment and Plan (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
[2018-03-28] MEDS: Heparin 25,000units in D5W 25,000 UNITS/250 ML BAG IV SCH (15:43)
[2018-03-29 06:53] LABS: HEMOGLOBIN 9.5 g/dL (12.0-16.0); MEAN CELL VOLUME 77.8 fl (81.0-99.0); MEAN CORPUSCULAR HEMOGLOBIN 23.6 pg (27.0-31.0); MEAN CORPUSCULAR HGB CONC 30.3 g/dL (33.0-37.0); RBC 4.04 Mil/uL (3.80-5.20); RED CELL DISTRIBUTION WIDTH 23.1 % (11.5-14.5)
[2018-03-29 07:08] LABS: ALB/GLOB RATIO 0.8 (1.0-2.1); ALBUMIN 2.6 g/dL (3.5-5.0); CALCIUM 8.4 mg/dL (8.4-10.2)
[2018-03-29] MEDS: Multivitamin With Minerals Tab PO SCH (08:06)
[2018-03-29] MEDS: Cefepime 1 GM in Sodium Chloride 0.9% 100 ML IVPB SCH (08:08)
--- NOTE | 2018-03-29 08:56 | CP.PCM.PN ---
Subjective - Date & Time of Evaluation Date of Evaluation: 03/29/18 Time of Evaluation: 08:54 - Subjective Subjective: Patient seen in room mild complaints of pain stable otherwise multiple consultants aboard continue current care poor overall prognosis but seems a little stronger today Objective - Vital Signs/Intake and Output Vital Signs (last 24 hours): Temp Pulse Resp BP Pulse Ox 97.6 F 69 18 117/68 97 03/29/18 07:51 03/29/18 08:07 03/29/18 07:51 03/29/18 08:07 03/29/18 07:51 - Medications Medications: Current Medications Acetaminophen (Tylenol 325mg Tab) 650 mg PO Q4 PRN PRN Reason: Pain, Mild (1-3) Last Admin: 03/28/18 00:54 Dose: 650 mg Aspirin (Aspirin) 325 mg PO DAILY [facility] Last Admin: 03/29/18 08:06 Dose: 325 mg Bisacodyl (Dulcolax) 10 mg [place] DAILY PRN PRN Reason: Constipation Clopidogrel Bisulfate (Plavix) 75 mg PO DAILY [facility] Last Admin: 03/29/18 08:06 Dose: 75 mg Dimethicone (Proshield Plus Skin Protectant) 1 applic TOP QSHIFT [facility] Last Admin: 03/28/18 11:48 Dose: 1 applic Docusate Sodium (Colace) 100 mg PO DAILY [facility] Last Admin: 03/29/18 08:06 Dose: 100 mg Escitalopram Oxalate (Lexapro) 5 mg PO HS [facility] Last Admin: 03/28/18 22:43 Dose: Not Given Famotidine (Pepcid) 20 mg PO DAILY [facility] Last Admin: 03/29/18 08:07 Dose: 20 mg Ferrous Sulfate (Feosol) 325 mg PO DAILY [facility] Last Admin: 03/29/18 08:06 Dose: 325 mg Cefepime HCl 1 gm/ Sodium (Chloride) 100 mls @ 100 mls/hr IVPB DAILY [facility] PRN Reason: Protocol Last Admin: 03/29/18 08:08 Dose: 100 mls/hr Heparin Sodium/Dextrose (Heparin 25,000 Units/250ml In D5w) 25,000 units in 250 mls @ 7 mls/hr IV .Q24H [facility] PRN Reason: Protocol Last Admin: 03/28/18 15:43 Dose: 5.5 mls/hr Isosorbide Mononitrate (Imdur Er) 30 mg PO DAILY [facility] Last Admin: 03/29/18 08:06 Dose: 30 mg Magnesium Hydroxide (Milk Of Magnesia) 30 ml PO HS PRN PRN Reason: Constipation Memantine (Namenda) 5 mg PO BID [facility] Last Admin: 03/29/18 08:08 Dose: 5 mg Metoprolol Tartrate (Lopressor) 25 mg PO Q12 [facility] Last Admin: 03/29/18 08:07 Dose: 25 mg Multivitamins/Minerals (Therapeutic-M Tab) 1 tab PO DAILY [facility] Last Admin: 03/29/18 08:06 Dose: 1 tab Silver Sulfadiazine (Silvadene 1% 50 Gm) 1 applic TOP BID [facility] Last Admin: 03/28/18 18:07 Dose: Not Given Sodium Hypochlorite (Dakins Solution 0.125%) 1 appl TOP QD7 [facility] Last Admin: 03/29/18 08:05 Dose: Not Given - Labs Labs: 03/29/18 05:30 03/29/18 05:30 PT 13.5 Seconds (9.8-13.1) H 03/25/18 18:33 INR 1.2 03/25/18 18:33 APTT 54.0 Seconds (25.6-37.1) H 03/28/18 16:00
[2018-03-29] MEDS: Silver Sulfadiazine 1% CREAM (50 gm) TOP SCH ×2 (10:39→16:08)
[2018-03-29] MEDS: Proshield Plus GEL TOP SCH (10:40)
[2018-03-29] MEDS: Dextrose 5%/0.45% NS 1,000 ML IV SCH (16:03)
--- NOTE | 2018-03-29 16:42 | CP.PCM.PN ---
Subjective - Date & Time of Evaluation Date of Evaluation: 03/29/18 Time of Evaluation: 09:00 - Subjective Subjective: cultures reviewed antibiotics reordered iv rx to cont wound care on board poor prognosis Objective - Vital Signs/Intake and Output Vital Signs (last 24 hours): Temp Pulse Resp BP Pulse Ox 97.7 F 69 18 116/68 100 03/29/18 16:12 03/29/18 16:12 03/29/18 16:12 03/29/18 16:12 03/29/18 16:12 - Medications Medications: Current Medications Acetaminophen (Tylenol 325mg Tab) 650 mg PO Q4 PRN PRN Reason: Pain, Mild (1-3) Last Admin: 03/28/18 00:54 Dose: 650 mg Aspirin (Aspirin) 325 mg PO DAILY [facility] Last Admin: 03/29/18 08:06 Dose: 325 mg Bisacodyl (Dulcolax) 10 mg [place] DAILY PRN PRN Reason: Constipation Clopidogrel Bisulfate (Plavix) 75 mg PO DAILY [facility] Last Admin: 03/29/18 08:06 Dose: 75 mg Dimethicone (Proshield Plus Skin Protectant) 1 applic TOP QSHIFT [facility] Last Admin: 03/29/18 10:40 Dose: 1 applic Docusate Sodium (Colace) 100 mg PO DAILY [facility] Last Admin: 03/29/18 08:06 Dose: 100 mg Escitalopram Oxalate (Lexapro) 5 mg PO HS [facility] Last Admin: 03/28/18 22:43 Dose: Not Given Famotidine (Pepcid) 20 mg PO DAILY [facility] Last Admin: 03/29/18 08:07 Dose: 20 mg Ferrous Sulfate (Feosol) 325 mg PO DAILY [facility] Last Admin: 03/29/18 08:06 Dose: 325 mg Cefepime HCl 1 gm/ Sodium (Chloride) 100 mls @ 100 mls/hr IVPB DAILY [facility] PRN Reason: Protocol Last Admin: 03/29/18 08:08 Dose: 100 mls/hr Dextrose/Sodium Chloride (Dextrose 5%/0.45% Ns 1000 Ml) 1,000 mls @ 60 mls/hr IV .[id number] [facility] Stop: 03/30/18 15:28 Last Admin: 03/29/18 16:03 Dose: 60 mls/hr Heparin Sodium/Dextrose (Heparin 25,000 Units/250ml In D5w) 25,000 units in 250 mls @ 5.5 mls/hr IV .Q24H [facility] PRN Reason: Protocol Isosorbide Mononitrate (Imdur Er) 30 mg PO DAILY [facility] Last Admin: 03/29/18 08:06 Dose: 30 mg Magnesium Hydroxide (Milk Of Magnesia) 30 ml PO HS PRN PRN Reason: Constipation Memantine (Namenda) 5 mg PO BID [facility] Last Admin: 03/29/18 16:08 Dose: 5 mg Metoprolol Tartrate (Lopressor) 25 mg PO Q12 [facility] Last Admin: 03/29/18 08:07 Dose: 25 mg Multivitamins/Minerals (Therapeutic-M Tab) 1 tab PO DAILY [facility] Last Admin: 03/29/18 08:06 Dose: 1 tab Silver Sulfadiazine (Silvadene 1% 50 Gm) 1 applic TOP BID [facility] Last Admin: 03/29/18 16:08 Dose: Not Given Sodium Hypochlorite (Dakins Solution 0.125%) 1 appl TOP QD7 [facility] Last Admin: 03/29/18 08:05 Dose: Not Given - Labs Labs: 03/29/18 05:30 03/29/18 05:30 PT 13.5 Seconds (9.8-13.1) H 03/25/18 18:33 INR 1.2 03/25/18 18:33 APTT 54.0 Seconds (25.6-37.1) H 03/28/18 16:00 - Constitutional Appears: Non-toxic, Chronically Ill - Head Exam Head Exam: NORMOCEPHALIC - Eye Exam Eye Exam: EOMI, PERRL. absent: Scleral icterus - ENT Exam ENT Exam: Mucous Membranes Dry - Neck Exam Neck Exam: absent: Lymphadenopathy - Respiratory Exam Respiratory Exam: Decreased Breath Sounds - Cardiovascular Exam Cardiovascular Exam: REGULAR RHYTHM - GI/Abdominal Exam GI & Abdominal Exam: Distended, Soft - Rectal Exam Rectal Exam: Deferred - Exam Exam: NORMAL INSPECTION - Extremities Exam Extremities Exam: absent: Pedal Edema - Back Exam Back Exam: absent: CVA tenderness (L), CVA tenderness (R) - Neurological Exam Neurological Exam: Alert, CN II-XII Intact. 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
--- NOTE | 2018-03-29 16:48 | PN ---
Copied To: Lucia Corley MD Attending MD: Lucia Corley MD DATE: 03/29/2018 ENDO FOLLOWUP LOCATION: In room 668. SUBJECTIVE: This is a 77-year-old female with recent admission for worsening nonhealing neuropathic leg ulcerations and underlying gangrene, currently receiving IV antibiotics and local debridement and is also being followed closely for metabolic management. Her glycemic levels are fluctuating but much improved at this time, and the glucose values have ranged from 128 to 181 mg/dL. Her latest chemistry shows a BUN of 36, sodium 139, potassium 3.7, chloride 108, CO2 24, glucose 156, and creatinine 1.1. So at this time, we will continue the low-dose correction scale using regular insulin as given. We will hold off the resumption of her oral hypoglycemic therapy because of the variability of her oral intake at this time. We will continue the serial thyroid studies but hold off also on the resumption of her Tapazole medication as needed. We will follow and advise accordingly. Lucia Corley MD
[2018-03-29] MEDS: Heparin 25,000units in D5W 25,000 UNITS/250 ML BAG IV SCH (18:44)
[2018-03-30] MEDS: Dextrose 5%/0.45% NS 1,000 ML IV SCH (08:57)
[2018-03-30] MEDS: Cefepime 1 GM in Sodium Chloride 0.9% 100 ML IVPB SCH (08:58)
[2018-03-30] MEDS: Silver Sulfadiazine 1% CREAM (50 gm) TOP SCH ×2 (08:58→16:52)
[2018-03-30] MEDS: Multivitamin With Minerals Tab PO SCH (08:59)
--- NOTE | 2018-03-30 10:11 | CP.PCM.PN ---
Subjective - Date & Time of Evaluation Date of Evaluation: 03/30/18 Time of Evaluation: 08:30 - Subjective Subjective: NO CHEST PAIN OR SOB MAIN COMPLAINT IS FOOT PAIN FEELS TIRED Objective - Vital Signs/Intake and Output Vital Signs (last 24 hours): Temp Pulse Resp BP Pulse Ox 97.6 F 68 18 119/63 96 03/30/18 07:44 03/30/18 08:57 03/30/18 07:44 03/30/18 08:57 03/30/18 07:44 - Medications Medications: Current Medications Acetaminophen (Tylenol 325mg Tab) 650 mg PO Q4 PRN PRN Reason: Pain, Mild (1-3) Last Admin: 03/28/18 00:54 Dose: 650 mg Aspirin (Aspirin) 325 mg PO DAILY [facility] Last Admin: 03/30/18 09:01 Dose: 325 mg Bisacodyl (Dulcolax) 10 mg [place] DAILY PRN PRN Reason: Constipation Clopidogrel Bisulfate (Plavix) 75 mg PO DAILY [facility] Last Admin: 03/30/18 08:58 Dose: 75 mg Dimethicone (Proshield Plus Skin Protectant) 1 applic TOP QSHIFT [facility] Last Admin: 03/29/18 10:40 Dose: 1 applic Docusate Sodium (Colace) 100 mg PO DAILY [facility] Last Admin: 03/30/18 08:55 Dose: 100 mg Escitalopram Oxalate (Lexapro) 5 mg PO HS [facility] Last Admin: 03/29/18 21:40 Dose: 5 mg Famotidine (Pepcid) 20 mg PO DAILY [facility] Last Admin: 03/30/18 08:58 Dose: 20 mg Ferrous Sulfate (Feosol) 325 mg PO DAILY [facility] Last Admin: 03/30/18 08:57 Dose: 325 mg Cefepime HCl 1 gm/ Sodium (Chloride) 100 mls @ 100 mls/hr IVPB DAILY [facility] PRN Reason: Protocol Last Admin: 03/30/18 08:58 Dose: 100 mls/hr Dextrose/Sodium Chloride (Dextrose 5%/0.45% Ns 1000 Ml) 1,000 mls @ 60 mls/hr IV .[id number] [facility] Stop: 03/30/18 15:28 Last Admin: 03/30/18 08:57 Dose: 60 mls/hr Heparin Sodium/Dextrose (Heparin 25,000 Units/250ml In D5w) 25,000 units in 250 mls @ 5.5 mls/hr IV .Q24H [facility] PRN Reason: Protocol Last Admin: 03/29/18 18:44 Dose: 5.5 mls/hr Isosorbide Mononitrate (Imdur Er) 30 mg PO DAILY [facility] Last Admin: 03/30/18 08:57 Dose: 30 mg Magnesium Hydroxide (Milk Of Magnesia) 30 ml PO HS PRN PRN Reason: Constipation Memantine (Namenda) 5 mg PO BID [facility] Last Admin: 03/30/18 08:58 Dose: 5 mg Metoprolol Tartrate (Lopressor) 25 mg PO Q12 [facility] Last Admin: 03/30/18 08:57 Dose: 25 mg Multivitamins/Minerals (Therapeutic-M Tab) 1 tab PO DAILY [facility] Last Admin: 03/30/18 08:59 Dose: 1 tab Silver Sulfadiazine (Silvadene 1% 50 Gm) 1 applic TOP BID [facility] Last Admin: 03/30/18 08:58 Dose: Not Given Sodium Hypochlorite (Dakins Solution 0.125%) 1 appl TOP QD7 [facility] Last Admin: 03/30/18 09:03 Dose: Not Given - Labs Labs: 03/29/18 05:30 03/29/18 05:30 PT 13.5 Seconds (9.8-13.1) H 03/25/18 18:33 INR 1.2 03/25/18 18:33 APTT 51.6 Seconds (25.6-37.1) H 03/29/18 16:02 - Respiratory Exam Respiratory Exam: Clear to Ausculation Bilateral - Cardiovascular Exam Cardiovascular Exam: REGULAR RHYTHM, +S1, +S2 - Extremities Exam Additional comments: BILATERAL LE DRESSINGS - Additional Findings Additional findings: BUN/CR 36/1.1 GFR 48 Assessment and Plan - Assessment and Plan (Free Text) Assessment: CAD PAD COPD HYPERTENSION ABBEY-IMPROVED Plan: FOR LE AN[place] AND CORONARY ANGIO TOMORROW IF STABLE
--- NOTE | 2018-03-30 14:24 | CP.PCM.PN ---
Subjective - Date & Time of Evaluation Date of Evaluation: 03/30/18 Time of Evaluation: 14:23 - Subjective Subjective: Podiatry progress note for Dr. Briseno: 77 year old female patient seen and evaluated for bilateral extensive nectrotic lower extremity ulcerations secondary to PMHx of DM and PVD. Patient in moderate pain today and hesitant to have lower extremity wounds evaluated and dressing changed. Denies N/V/F/SOB/CP. Objective - Vital Signs/Intake and Output Vital Signs (last 24 hours): Temp Pulse Resp BP Pulse Ox 97.6 F 68 18 119/63 96 03/30/18 07:44 03/30/18 08:57 03/30/18 07:44 03/30/18 08:57 03/30/18 07:44 - Medications Medications: Current Medications Acetaminophen (Tylenol 325mg Tab) 650 mg PO Q4 PRN PRN Reason: Pain, Mild (1-3) Last Admin: 03/28/18 00:54 Dose: 650 mg Aspirin (Aspirin) 325 mg PO DAILY [facility] Last Admin: 03/30/18 09:01 Dose: 325 mg Bisacodyl (Dulcolax) 10 mg [place] DAILY PRN PRN Reason: Constipation Clopidogrel Bisulfate (Plavix) 75 mg PO DAILY [facility] Last Admin: 03/30/18 08:58 Dose: 75 mg Dimethicone (Proshield Plus Skin Protectant) 1 applic TOP QSHIFT [facility] Last Admin: 03/29/18 10:40 Dose: 1 applic Docusate Sodium (Colace) 100 mg PO DAILY [facility] Last Admin: 03/30/18 08:55 Dose: 100 mg Escitalopram Oxalate (Lexapro) 5 mg PO HS [facility] Last Admin: 03/29/18 21:40 Dose: 5 mg Famotidine (Pepcid) 20 mg PO DAILY [facility] Last Admin: 03/30/18 08:58 Dose: 20 mg Ferrous Sulfate (Feosol) 325 mg PO DAILY [facility] Last Admin: 03/30/18 08:57 Dose: 325 mg Cefepime HCl 1 gm/ Sodium (Chloride) 100 mls @ 100 mls/hr IVPB DAILY [facility] PRN Reason: Protocol Last Admin: 03/30/18 08:58 Dose: 100 mls/hr Dextrose/Sodium Chloride (Dextrose 5%/0.45% Ns 1000 Ml) 1,000 mls @ 60 mls/hr IV .[id number] [facility] Stop: 03/30/18 15:28 Last Admin: 03/30/18 08:57 Dose: 60 mls/hr Heparin Sodium/Dextrose (Heparin 25,000 Units/250ml In D5w) 25,000 units in 250 mls @ 5.5 mls/hr IV .Q24H [facility] PRN Reason: Protocol Last Admin: 03/29/18 18:44 Dose: 5.5 mls/hr Isosorbide Mononitrate (Imdur Er) 30 mg PO DAILY [facility] Last Admin: 03/30/18 08:57 Dose: 30 mg Magnesium Hydroxide (Milk Of Magnesia) 30 ml PO HS PRN PRN Reason: Constipation Memantine (Namenda) 5 mg PO BID [facility] Last Admin: 03/30/18 08:58 Dose: 5 mg Metoprolol Tartrate (Lopressor) 25 mg PO Q12 [facility] Last Admin: 03/30/18 08:57 Dose: 25 mg Multivitamins/Minerals (Therapeutic-M Tab) 1 tab PO DAILY [facility] Last Admin: 03/30/18 08:59 Dose: 1 tab Silver Sulfadiazine (Silvadene 1% 50 Gm) 1 applic TOP BID [facility] Last Admin: 03/30/18 08:58 Dose: Not Given Sodium Hypochlorite (Dakins Solution 0.125%) 1 appl TOP QD7 [facility] Last Admin: 03/30/18 09:03 Dose: Not Given - Labs Labs: 03/29/18 05:30 03/29/18 05:30 PT 13.5 Seconds (9.8-13.1) H 03/25/18 18:33 INR 1.2 03/25/18 18:33 APTT 51.6 Seconds (25.6-37.1) H 03/29/18 16:02 - Constitutional Appears: Well, Non-toxic, No Acute Distress - Head Exam Head Exam: ATRAUMATIC, NORMOCEPHALIC - Extremities Exam Additional comments: Vasc: DP/PT pulses non-palpable, Temp gradient cool to cool, Cap refill delayed to digits/not attainable due to necrosis of 2-5 on right foot Ortho: Bilateral lower extremities painful upon palpation Neuro: Gross sensation intact and protective sensation diminished bilaterally Derm: Multiple ulcerations noted to the entire lower extremity with mixture of fibrotic/necrotic wound base: Erythema to the entire lower extremity with R>L, significantly malodorous, all sites (-) for purulence, probe to bone, tunneling or undermining. RIGHT: 1) Necrotic right heel eschar unstagable with no drainage noted measuring 9.0 cm X 7.0 cm 2) Circumferential ulceration to the medial posterior aspect measuring 21 cm in length, fibrotic edges, peroneal tendon exposed, drainage noted 3) necrotic 2nd and 3rd digits till the level of the MPTJ, dorsally necrotic 4th digit t the level of the MTPJ 4) fibro/necrotic ulceration to the dorsal aspect of the hallux at the PIPJ measuring 3.0 cmX 2.5 cm 5) fibro/necrotic ulceration to the dorsal forefoot measuring 2.5 cm X 1.8 cm 6) fibro/necrotic ulceration noted to the medial ankle distal to the medial malleolus measuring 4. 0 X 2.0 cm, + fluctuance noted 7) fibro/necrotic ulceration to the anterior tibial tuberosity measuring 3.0 X 1.0 cm 8) circular ulceration noted to the medial aspect of the leg at the level of the tibial tuberosity measuring 2.4 cm X 2.6 cm x1.5 with 80% graular and 20% fibrotic bases, surrounding erythema 9) multiple stable eschars to the knee 10) New wound noted to the right hallux with minimal bleeding LEFT: 1) echar to the heel, necrotic, measuring 5.0 cm X 6.0 cm 2) fibro/necrotic ulceration to the dorsal aspect of the foot, with fibrotic edges, positive drainage, dusky appearance extending proximally and beginning to demarcate 3) fibro/necrotic ulceration to the medial aspect of the leg measuring 5.0 c, X 3.0 cm 4) gangranous changes to the tip of the hallux, and to the dorsum of the 2nd digit, dusky appearance to hallux 5) multipe eschars to the tibial tuberosity, stable in nature - Neurological Exam Neurological Exam: Alert, Awake, Oriented x3 - Psychiatric Exam Psychiatric exam: Normal Affect, Normal Mood Assessment and Plan - Assessment and Plan (Free Text) Assessment: 77 year old female patient seen and evaluated at bedside for bilateral extensive necrotic lower extremity ulcerations. Plan: Patient seen and evaluated at bedside Discussed in detail with Dr. Briseno Patient chart, labs and vitals reviewed: Afebrile Continue IV abx per ID reccs, Cefepime 1gm IV F/U with nephro clearance for peripheral angio planning X-ray foot bilaterally: No signs of acute osseous changes. Proximal tib-fibula X-ray: multiple deep ulcers, no evidence of osteomyelitis. Bilateral wound culture 03/20/18: E. Coli (Final) B/L lower extremity ulcerations evaluated, will continue to monitor lesions and their progression; Dressing changed to bilateral lower extremities with Dakins, Adaptic, ABD, and DSD Multipodus boots ordered; patient to wear at all times while in bed Podiatry will continue to follow while patient is in house
[2018-03-30] MEDS: Heparin 25,000units in D5W 25,000 UNITS/250 ML BAG IV SCH (16:05)
--- NOTE | 2018-03-31 00:37 | CP.PCM.PN ---
Subjective - Date & Time of Evaluation Date of Evaluation: 03/30/18 Time of Evaluation: 22:22 - Subjective Subjective: Above noted Creat 1.1 WBC 12 Objective - Vital Signs/Intake and Output Vital Signs (last 24 hours): Temp Pulse Resp BP Pulse Ox 97.3 F L 73 20 131/73 99 03/30/18 16:35 03/30/18 22:36 03/30/18 16:35 03/30/18 22:36 03/30/18 16:35 Intake and Output: 03/30/18 03/31/18 18:59 06:59 Intake Total 120 Balance 120 - Medications Medications: Current Medications Acetaminophen (Tylenol 325mg Tab) 650 mg PO Q4 PRN PRN Reason: Pain, Mild (1-3) Last Admin: 03/28/18 00:54 Dose: 650 mg Aspirin (Aspirin) 325 mg PO DAILY [facility] Last Admin: 03/30/18 09:01 Dose: 325 mg Bisacodyl (Dulcolax) 10 mg [place] DAILY PRN PRN Reason: Constipation Clopidogrel Bisulfate (Plavix) 75 mg PO DAILY [facility] Last Admin: 03/30/18 08:58 Dose: 75 mg Dimethicone (Proshield Plus Skin Protectant) 1 applic TOP QSHIFT [facility] Last Admin: 03/29/18 10:40 Dose: 1 applic Docusate Sodium (Colace) 100 mg PO DAILY [facility] Last Admin: 03/30/18 08:55 Dose: 100 mg Escitalopram Oxalate (Lexapro) 5 mg PO HS [facility] Last Admin: 03/30/18 22:36 Dose: 5 mg Famotidine (Pepcid) 20 mg PO DAILY [facility] Last Admin: 03/30/18 08:58 Dose: 20 mg Ferrous Sulfate (Feosol) 325 mg PO DAILY [facility] Last Admin: 03/30/18 08:57 Dose: 325 mg Cefepime HCl 1 gm/ Sodium (Chloride) 100 mls @ 100 mls/hr IVPB DAILY [facility] PRN Reason: Protocol Last Admin: 03/30/18 08:58 Dose: 100 mls/hr Isosorbide Mononitrate (Imdur Er) 30 mg PO DAILY [facility] Last Admin: 03/30/18 08:57 Dose: 30 mg Magnesium Hydroxide (Milk Of Magnesia) 30 ml PO HS PRN PRN Reason: Constipation Memantine (Namenda) 5 mg PO BID [facility] Last Admin: 03/30/18 16:53 Dose: 5 mg Metoprolol Tartrate (Lopressor) 25 mg PO Q12 [facility] Last Admin: 03/30/18 22:36 Dose: 25 mg Multivitamins/Minerals (Therapeutic-M Tab) 1 tab PO DAILY [facility] Last Admin: 03/30/18 08:59 Dose: 1 tab Silver Sulfadiazine (Silvadene 1% 50 Gm) 1 applic TOP BID [facility] Last Admin: 03/30/18 16:52 Dose: Not Given Sodium Hypochlorite (Dakins Solution 0.125%) 1 appl TOP QD7 [facility] Last Admin: 03/30/18 09:03 Dose: Not Given - Labs Labs: 03/29/18 05:30 03/29/18 05:30 PT 13.5 Seconds (9.8-13.1) H 03/25/18 18:33 INR 1.2 03/25/18 18:33 APTT 45.3 Seconds (25.6-37.1) H 03/30/18 16:00 - Respiratory Exam Respiratory Exam: NORMAL BREATHING PATTERN - Cardiovascular Exam Cardiovascular Exam: REGULAR RHYTHM - GI/Abdominal Exam GI & Abdominal Exam: Normal Bowel Sounds Assessment and Plan - Assessment and Plan (Free Text) Assessment: PVD S/P Angioplasty Stents Low ext edema cellulitis gangrene Local wound care IV ABX DAPT Heparin ID Podiatry Surgery Physiatry Cardiology (Inv) ABBEY/ CKD creat 1.1 IVF Nephrology US Kidney WNl Altered mental status Toxic metabolic encephalopathy Adj disorder Depression Psychiatry Psychology Neurolgy SSRI D/C Tramadol and Namenda Hx CHF Diastolic CAD stress thalium scarring ischemia?? cardiac cath Cardiology Hx COPD L Pleural effusion Pulmonary Hx Anemia Chronic dx ASA d/c as outpt due to dec Hbg S/P Procrit transfusion NIDDM Thyroid dx
--- NOTE | 2018-03-31 04:39 | PN ---
Copied To: Lucia Corley MD Attending MD: Lucia Corley MD DATE: 03/30/2018 LOCATION: Room 660. 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 Her glycemic levels are much improved at this time and have ranged from 128-170 mg/dL. Her latest chemistry showed a BUN of 36, sodium 139, potassium 3.7, chloride 108, CO2 of 24, glucose 156 and creatinine 1.1. At this time, we will hold off the resumption of her oral hypoglycemic regimen and observe her glycemic fluctuations thereof. We will also repeat the thyroid studies and determine the need to resume her Tapazole medications as indicated. We will obtain serial chemistries and supplement accordingly as needed. We will follow. Lucia Corley MD
[2018-03-31 06:20] LABS: BASO % 0.1 % (0.0-2.0); EOS # 0.1 K/uL (0.0-0.7); EOS % 0.5 % (0.0-4.0); HEMOGLOBIN 8.6 g/dL (12.0-16.0); LYMPH # 0.4 K/uL (1.0-4.3); MEAN CELL VOLUME 77.9 fl (81.0-99.0); MEAN CORPUSCULAR HEMOGLOBIN 23.5 pg (27.0-31.0); MEAN CORPUSCULAR HGB CONC 30.2 g/dL (33.0-37.0); MONO # 0.9 K/uL (0.0-0.8); MONO % 8.1 % (0.0-10.0); NEUT # 9.5 K/uL (1.8-7.0); NEUT % 87.3 % (50.0-75.0); NRBC % 0.2 % (0.0-0.0); PLATELET COUNT 204 K/uL (130-400); RBC 3.68 Mil/uL (3.80-5.20); RED CELL DISTRIBUTION WIDTH 22.9 % (11.5-14.5); WHITE BLOOD COUNT 10.8 K/uL (4.8-10.8)
[2018-03-31 06:36] LABS: ALB/GLOB RATIO 0.8 (1.0-2.1); ALBUMIN 2.3 g/dL (3.5-5.0); ALT/SGPT 23 U/L (9-52); AST/SGOT 18 U/L (14-36); BLOOD UREA NITROGEN 31 mg/dl (7-17); CALCIUM 8.4 mg/dL (8.4-10.2); GFR AFRICAN-AMERICAN > 60; GFR NON-AFRICAN AMERICAN > 60
[2018-03-31 06:44] LABS: T4 5.29 ug/dl (5.5-11.0)
--- NOTE | 2018-03-31 08:21 | CP.PCM.PN ---
Subjective - Date & Time of Evaluation Date of Evaluation: 03/31/18 Time of Evaluation: 07:30 - Subjective Subjective: NO CHEST PAIN OR SOB MAJOR COMPLAINT IS FOOT PAIN Objective - Vital Signs/Intake and Output Vital Signs (last 24 hours): Temp Pulse Resp BP Pulse Ox 97.6 F 71 20 111/61 99 03/31/18 08:00 03/31/18 08:00 03/31/18 08:00 03/31/18 08:00 03/31/18 08:00 - Medications Medications: Current Medications Acetaminophen (Tylenol 325mg Tab) 650 mg PO Q4 PRN PRN Reason: Pain, Mild (1-3) Last Admin: 03/28/18 00:54 Dose: 650 mg Aspirin (Aspirin) 325 mg PO DAILY [facility] Last Admin: 03/30/18 09:01 Dose: 325 mg Bisacodyl (Dulcolax) 10 mg [place] DAILY PRN PRN Reason: Constipation Clopidogrel Bisulfate (Plavix) 75 mg PO DAILY [facility] Last Admin: 03/30/18 08:58 Dose: 75 mg Dimethicone (Proshield Plus Skin Protectant) 1 applic TOP QSHIFT [facility] Last Admin: 03/29/18 10:40 Dose: 1 applic Docusate Sodium (Colace) 100 mg PO DAILY [facility] Last Admin: 03/30/18 08:55 Dose: 100 mg Escitalopram Oxalate (Lexapro) 5 mg PO HS [facility] Last Admin: 03/30/18 22:36 Dose: 5 mg Famotidine (Pepcid) 20 mg PO DAILY [facility] Last Admin: 03/30/18 08:58 Dose: 20 mg Ferrous Sulfate (Feosol) 325 mg PO DAILY [facility] Last Admin: 03/30/18 08:57 Dose: 325 mg Cefepime HCl 1 gm/ Sodium (Chloride) 100 mls @ 100 mls/hr IVPB DAILY [facility] PRN Reason: Protocol Last Admin: 03/30/18 08:58 Dose: 100 mls/hr Isosorbide Mononitrate (Imdur Er) 30 mg PO DAILY [facility] Last Admin: 03/30/18 08:57 Dose: 30 mg Magnesium Hydroxide (Milk Of Magnesia) 30 ml PO HS PRN PRN Reason: Constipation Memantine (Namenda) 5 mg PO BID [facility] Last Admin: 03/30/18 16:53 Dose: 5 mg Metoprolol Tartrate (Lopressor) 25 mg PO Q12 [facility] Last Admin: 03/30/18 22:36 Dose: 25 mg Multivitamins/Minerals (Therapeutic-M Tab) 1 tab PO DAILY [facility] Last Admin: 03/30/18 08:59 Dose: 1 tab Silver Sulfadiazine (Silvadene 1% 50 Gm) 1 applic TOP BID [facility] Last Admin: 03/30/18 16:52 Dose: Not Given Sodium Hypochlorite (Dakins Solution 0.125%) 1 appl TOP QD7 [facility] Last Admin: 03/30/18 09:03 Dose: Not Given - Labs Labs: 03/31/18 05:40 03/31/18 05:40 PT 13.5 Seconds (9.8-13.1) H 03/25/18 18:33 INR 1.2 03/25/18 18:33 APTT 29.6 Seconds (25.6-37.1) 03/31/18 06:15 - Respiratory Exam Respiratory Exam: Decreased Breath Sounds - Cardiovascular Exam Cardiovascular Exam: REGULAR RHYTHM, +S1, +S2 - Extremities Exam Additional comments: GANGRENOUS TOES BILAT Assessment and Plan - Assessment and Plan (Free Text) Assessment: CAD PAD HYPERTENSION COPD Plan: CONTINUE PRESENT TX FOR LE ANGIO
--- NOTE | 2018-03-31 08:25 | CP.PCM.PN ---
Subjective - Date & Time of Evaluation Date of Evaluation: 03/31/18 Time of Evaluation: 08:23 - Subjective Subjective: Podiatry progress note for Dr. Briseno: 77 year old female patient seen and evaluated for bilateral extensive nectrotic lower extremity ulcerations. Patient is lethargic and resting in bed. She is in moderate pain to b/l lower extremities. Denies N/V/F/SOB/CP. Objective - Vital Signs/Intake and Output Vital Signs (last 24 hours): Temp Pulse Resp BP Pulse Ox 97.6 F 71 20 111/61 99 03/31/18 08:00 03/31/18 08:00 03/31/18 08:00 03/31/18 08:00 03/31/18 08:00 - Medications Medications: Current Medications Acetaminophen (Tylenol 325mg Tab) 650 mg PO Q4 PRN PRN Reason: Pain, Mild (1-3) Last Admin: 03/28/18 00:54 Dose: 650 mg Aspirin (Aspirin) 325 mg PO DAILY [facility] Last Admin: 03/30/18 09:01 Dose: 325 mg Bisacodyl (Dulcolax) 10 mg [place] DAILY PRN PRN Reason: Constipation Clopidogrel Bisulfate (Plavix) 75 mg PO DAILY [facility] Last Admin: 03/30/18 08:58 Dose: 75 mg Dimethicone (Proshield Plus Skin Protectant) 1 applic TOP QSHIFT [facility] Last Admin: 03/29/18 10:40 Dose: 1 applic Docusate Sodium (Colace) 100 mg PO DAILY [facility] Last Admin: 03/30/18 08:55 Dose: 100 mg Escitalopram Oxalate (Lexapro) 5 mg PO HS [facility] Last Admin: 03/30/18 22:36 Dose: 5 mg Famotidine (Pepcid) 20 mg PO DAILY [facility] Last Admin: 03/30/18 08:58 Dose: 20 mg Ferrous Sulfate (Feosol) 325 mg PO DAILY [facility] Last Admin: 03/30/18 08:57 Dose: 325 mg Cefepime HCl 1 gm/ Sodium (Chloride) 100 mls @ 100 mls/hr IVPB DAILY [facility] PRN Reason: Protocol Last Admin: 03/30/18 08:58 Dose: 100 mls/hr Isosorbide Mononitrate (Imdur Er) 30 mg PO DAILY [facility] Last Admin: 03/30/18 08:57 Dose: 30 mg Magnesium Hydroxide (Milk Of Magnesia) 30 ml PO HS PRN PRN Reason: Constipation Memantine (Namenda) 5 mg PO BID [facility] Last Admin: 03/30/18 16:53 Dose: 5 mg Metoprolol Tartrate (Lopressor) 25 mg PO Q12 [facility] Last Admin: 03/30/18 22:36 Dose: 25 mg Multivitamins/Minerals (Therapeutic-M Tab) 1 tab PO DAILY [facility] Last Admin: 03/30/18 08:59 Dose: 1 tab Silver Sulfadiazine (Silvadene 1% 50 Gm) 1 applic TOP BID [facility] Last Admin: 03/30/18 16:52 Dose: Not Given Sodium Hypochlorite (Dakins Solution 0.125%) 1 appl TOP QD7 [facility] Last Admin: 03/30/18 09:03 Dose: Not Given - Labs Labs: 03/31/18 05:40 03/31/18 05:40 PT 13.5 Seconds (9.8-13.1) H 03/25/18 18:33 INR 1.2 03/25/18 18:33 APTT 29.6 Seconds (25.6-37.1) 03/31/18 06:15 - Constitutional Appears: Non-toxic, No Acute Distress - Head Exam Head Exam: ATRAUMATIC, NORMOCEPHALIC - Extremities Exam Additional comments: Vasc: DP/PT pulses non-palpable, Temp gradient cool to cool, Cap refill delayed to digits/not attainable due to necrosis of 2-5 on right foot Ortho: Bilateral lower extremities painful upon palpation Neuro: Gross sensation intact and protective sensation diminished bilaterally Derm: Multiple ulcerations noted to the entire lower extremity with mixture of fibrotic/necrotic wound base: Erythema to the entire lower extremity with R>L, significantly malodorous, all sites (-) for purulence, probe to bone, tunneling or undermining. RIGHT: 1) Necrotic right heel eschar unstagable with no drainage noted measuring 9.0 cm X 7.0 cm 2) Circumferential ulceration to the medial posterior aspect measuring 21 cm in length, fibrotic edges, peroneal tendon exposed, drainage noted 3) necrotic 2nd and 3rd digits till the level of the MPTJ, dorsally necrotic 4th digit t the level of the MTPJ 4) fibro/necrotic ulceration to the dorsal aspect of the hallux at the PIPJ measuring 3.0 cmX 2.5 cm 5) fibro/necrotic ulceration to the dorsal forefoot measuring 2.5 cm X 1.8 cm 6) fibro/necrotic ulceration noted to the medial ankle distal to the medial malleolus measuring 4. 0 X 2.0 cm, + fluctuance noted 7) fibro/necrotic ulceration to the anterior tibial tuberosity measuring 3.0 X 1.0 cm 8) circular ulceration noted to the medial aspect of the leg at the level of the tibial tuberosity measuring 2.4 cm X 2.6 cm x1.5 with 80% graular and 20% fibrotic bases, surrounding erythema 9) multiple stable eschars to the knee 10) New wound noted to the right hallux with minimal bleeding LEFT: 1) echar to the heel, necrotic, measuring 5.0 cm X 6.0 cm 2) fibro/necrotic ulceration to the dorsal aspect of the foot, with fibrotic edges, positive drainage, dusky appearance extending proximally and beginning to demarcate 3) fibro/necrotic ulceration to the medial aspect of the leg measuring 5.0 c, X 3.0 cm 4) gangranous changes to the tip of the hallux, and to the dorsum of the 2nd digit, dusky appearance to hallux 5) multipe eschars to the tibial tuberosity, stable in nature - Neurological Exam Neurological Exam: Alert, Awake - Psychiatric Exam Psychiatric exam: Normal Affect, Normal Mood Assessment and Plan - Assessment and Plan (Free Text) Assessment: 77 year old female patient seen and evaluated at bedside for bilateral extensive necrotic lower extremity ulcerations. Plan: Patient seen and evaluated at bedside Discussed in detail with Dr. Briseno Patient chart, labs and vitals reviewed: Afebrile; WBC trending downward Continue IV abx per ID reccs, Cefepime 1gm IV Creatinine .9 today, f/u with plan for peripheral angio X-ray foot bilaterally: No signs of acute osseous changes. Proximal tib-fibula X-ray: multiple deep ulcers, no evidence of osteomyelitis. Bilateral wound culture 03/20/18: E. Coli (Final) B/L lower extremity ulcerations evaluated, will continue to monitor lesions and their progression; Dressing changed to bilateral lower extremities with Dakins, Adaptic, ABD, and DSD Multipodus boots ordered; patient to wear at all times while in bed Podiatry will continue to follow while patient is in house
--- NOTE | 2018-03-31 08:29 | PN ---
Copied To: Lucia Corley MD Attending MD: Lucia Corley MD DATE: 03/28/2018 ENDO FOLLOWUP NOTE LOCATION: In room 668. SUBJECTIVE: This is a 77-year-old female with known history of type 2 diabetes and hyperthyroidism, currently admitted for management of worsening lower extremity nonhealing neuropathic ulcerations and gangrene with local debridement and IV antibiotic management as noted. Her glycemic levels are much improved at this time and the glucose levels are ranging from 123 to 137 and 148 mg/dL. LABORATORY DATA: Her latest chemistry showed the BUN of 45, sodium 140, potassium 4.1, chloride 112, CO2 of 18, glucose 117, and creatinine 1.3. ASSESSMENT AND PLAN: So at this time, we will continue the low-dose correction scale using regular insulin as given. We will hold off the resumption of her oral hypoglycemic therapy as noted. We will obtain serial thyroid studies and also serial electrolytes and supplement accordingly as needed. Lucia Corley MD
[2018-03-31] MEDS: Silver Sulfadiazine 1% CREAM (50 gm) TOP SCH ×2 (09:00→17:32)
[2018-03-31 10:11] LABS: BANDS 1 % (0-2); LYMPHOCYTE 8 % (20-50); MONOCYTE 7 % (0-10); NEUTROPHIL 84 % (42-75); PLATELET ESTIMATE NORMAL (NORMAL); TOTAL CELLS COUNTED 100
[2018-03-31 10:12] LABS: ANISOCYTOSIS MARKED; HYPOCHROMIC MODERATE; OVALOCYTES SLIGHT; SCHISTOCYTES SLIGHT; TEARDROP CELLS SLIGHT
[2018-03-31 10:13] LABS: LARGE PLATELETS PRESENT; TOXIC GRANULATION PRESENT
[2018-03-31] MEDS: Multivitamin With Minerals Tab PO SCH (10:21)
[2018-03-31] MEDS: Proshield Plus GEL TOP SCH ×2 (10:23→17:31)
--- NOTE | 2018-03-31 10:24 | CP.PCM.PN ---
Subjective - Date & Time of Evaluation Date of Evaluation: 03/31/18 Time of Evaluation: 10:22 - Subjective Subjective: patient appeared to be stable no significant changes noted mentally Objective - Vital Signs/Intake and Output Vital Signs (last 24 hours): Temp Pulse Resp BP Pulse Ox 97.6 F 71 20 111/61 99 03/31/18 08:00 03/31/18 08:00 03/31/18 08:00 03/31/18 08:00 03/31/18 08:00 - Medications Medications: Current Medications Acetaminophen (Tylenol 325mg Tab) 650 mg PO Q4 PRN PRN Reason: Pain, Mild (1-3) Last Admin: 03/28/18 00:54 Dose: 650 mg Aspirin (Aspirin) 325 mg PO DAILY [facility] Last Admin: 03/30/18 09:01 Dose: 325 mg Bisacodyl (Dulcolax) 10 mg [place] DAILY PRN PRN Reason: Constipation Clopidogrel Bisulfate (Plavix) 75 mg PO DAILY [facility] Last Admin: 03/30/18 08:58 Dose: 75 mg Dimethicone (Proshield Plus Skin Protectant) 1 applic TOP QSHIFT [facility] Last Admin: 03/29/18 10:40 Dose: 1 applic Docusate Sodium (Colace) 100 mg PO DAILY [facility] Last Admin: 03/30/18 08:55 Dose: 100 mg Escitalopram Oxalate (Lexapro) 5 mg PO HS [facility] Last Admin: 03/30/18 22:36 Dose: 5 mg Famotidine (Pepcid) 20 mg PO DAILY [facility] Last Admin: 03/30/18 08:58 Dose: 20 mg Ferrous Sulfate (Feosol) 325 mg PO DAILY [facility] Last Admin: 03/30/18 08:57 Dose: 325 mg Cefepime HCl 1 gm/ Sodium (Chloride) 100 mls @ 100 mls/hr IVPB DAILY [facility] PRN Reason: Protocol Last Admin: 03/30/18 08:58 Dose: 100 mls/hr Isosorbide Mononitrate (Imdur Er) 30 mg PO DAILY [facility] Last Admin: 03/30/18 08:57 Dose: 30 mg Magnesium Hydroxide (Milk Of Magnesia) 30 ml PO HS PRN PRN Reason: Constipation Memantine (Namenda) 5 mg PO BID [facility] Last Admin: 03/30/18 16:53 Dose: 5 mg Metoprolol Tartrate (Lopressor) 25 mg PO Q12 [facility] Last Admin: 03/30/18 22:36 Dose: 25 mg Multivitamins/Minerals (Therapeutic-M Tab) 1 tab PO DAILY [facility] Last Admin: 03/30/18 08:59 Dose: 1 tab Silver Sulfadiazine (Silvadene 1% 50 Gm) 1 applic TOP BID [facility] Last Admin: 03/30/18 16:52 Dose: Not Given Sodium Hypochlorite (Dakins Solution 0.125%) 1 appl TOP QD7 [facility] Last Admin: 03/30/18 09:03 Dose: Not Given - Labs Labs: 03/31/18 05:40 03/31/18 05:40 PT 13.5 Seconds (9.8-13.1) H 03/25/18 18:33 INR 1.2 03/25/18 18:33 APTT 29.6 Seconds (25.6-37.1) 03/31/18 06:15 - Constitutional Appears: No Acute Distress - ENT Exam ENT Exam: Mucous Membranes Moist - Neck Exam Neck Exam: absent: Lymphadenopathy - Respiratory Exam Respiratory Exam: absent: Chest Wall Tenderness - GI/Abdominal Exam GI & Abdominal Exam: Soft, Hyperactive Bowel Sounds - Extremities Exam Extremities Exam: absent: Calf Tenderness - Back Exam Back Exam: absent: CVA tenderness (L), CVA tenderness (R) - Neurological Exam Neurological Exam: Altered - Psychiatric Exam Psychiatric exam: Flat Affect - Skin Skin Exam: absent: Cyanosis Assessment and Plan (1) Bilateral leg ulcer Status: Acute (2) ABBEY (acute kidney injury) Assessment & Plan: patient recovers from acute kidney injury serum creatinine back to normal. Mild hypokalemia patient needed to be given potassium chloride supplement. Bilateral leg ulceration and cellulitis Antibiotics as per primary team Status: Acute
[2018-03-31] MEDS: Cefepime 1 GM in Sodium Chloride 0.9% 100 ML IVPB SCH (10:30)
--- NOTE | 2018-03-31 11:57 | CP.PCM.PN ---
Subjective - Date & Time of Evaluation Date of Evaluation: 03/31/18 Time of Evaluation: 08:00 - Subjective Subjective: iv rx in progress for angio Objective - Vital Signs/Intake and Output Vital Signs (last 24 hours): Temp Pulse Resp BP Pulse Ox 97.6 F 71 20 111/61 99 03/31/18 08:00 03/31/18 10:21 03/31/18 08:00 03/31/18 10:21 03/31/18 08:00 - Medications Medications: Current Medications Acetaminophen (Tylenol 325mg Tab) 650 mg PO Q4 PRN PRN Reason: Pain, Mild (1-3) Last Admin: 03/28/18 00:54 Dose: 650 mg Aspirin (Aspirin) 325 mg PO DAILY [facility] Last Admin: 03/31/18 10:30 Dose: 325 mg Bisacodyl (Dulcolax) 10 mg [place] DAILY PRN PRN Reason: Constipation Clopidogrel Bisulfate (Plavix) 75 mg PO DAILY [facility] Last Admin: 03/31/18 10:23 Dose: 75 mg Dimethicone (Proshield Plus Skin Protectant) 1 applic TOP QSHIFT [facility] Last Admin: 03/31/18 10:23 Dose: 1 applic Docusate Sodium (Colace) 100 mg PO DAILY [facility] Last Admin: 03/31/18 10:22 Dose: 100 mg Escitalopram Oxalate (Lexapro) 5 mg PO HS [facility] Last Admin: 03/30/18 22:36 Dose: 5 mg Famotidine (Pepcid) 20 mg PO DAILY [facility] Last Admin: 03/31/18 10:22 Dose: 20 mg Ferrous Sulfate (Feosol) 325 mg PO DAILY [facility] Last Admin: 03/31/18 10:22 Dose: 325 mg Cefepime HCl 1 gm/ Sodium (Chloride) 100 mls @ 100 mls/hr IVPB DAILY [facility] PRN Reason: Protocol Last Admin: 03/31/18 10:30 Dose: 100 mls/hr Isosorbide Mononitrate (Imdur Er) 30 mg PO DAILY [facility] Last Admin: 03/31/18 10:22 Dose: 30 mg Magnesium Hydroxide (Milk Of Magnesia) 30 ml PO HS PRN PRN Reason: Constipation Memantine (Namenda) 5 mg PO BID [facility] Last Admin: 03/31/18 10:21 Dose: 5 mg Metoprolol Tartrate (Lopressor) 25 mg PO Q12 [facility] Last Admin: 03/31/18 10:21 Dose: 25 mg Multivitamins/Minerals (Therapeutic-M Tab) 1 tab PO DAILY [facility] Last Admin: 03/31/18 10:21 Dose: 1 tab Silver Sulfadiazine (Silvadene 1% 50 Gm) 1 applic TOP BID [facility] Last Admin: 03/30/18 16:52 Dose: Not Given Sodium Hypochlorite (Dakins Solution 0.125%) 1 appl TOP QD7 [facility] Last Admin: 03/30/18 09:03 Dose: Not Given - Labs Labs: 03/31/18 05:40 03/31/18 05:40 PT 13.5 Seconds (9.8-13.1) H 03/25/18 18:33 INR 1.2 03/25/18 18:33 APTT 29.6 Seconds (25.6-37.1) 03/31/18 06:15 - Constitutional Appears: Non-toxic - Head Exam Head Exam: NORMOCEPHALIC - Eye Exam Eye Exam: PERRL - ENT Exam ENT Exam: Mucous Membranes Dry - Neck Exam Neck Exam: absent: Lymphadenopathy - Respiratory Exam Respiratory Exam: Decreased Breath Sounds - Cardiovascular Exam Cardiovascular Exam: REGULAR RHYTHM, +S1, +S2 - GI/Abdominal Exam GI & Abdominal Exam: Distended, Soft. 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
[2018-03-31] MEDS ORDERED: Heparin 25,000units in D5W 25,000 UNITS/250 ML BAG IV SCH ×3 (12:30→23:45)
--- NOTE | 2018-03-31 13:27 | PQF ---
PROVIDER RESPONSE TEXT: Provider was unable to determine a response for this query. REVIEWER QUERY TEXT: Conflicting Documentation Clarification Three (3) queries as follows: 1. A single mention of Sepsis appears in the Cardiology progress note of 03/21/18. Please clarify th e diagnosis. Please also document if the condition is: -- Confirmed and current -- Confirmed, treated and resolved -- Ruled out -- Other, please specify 2. If in agreement: the etiology of Sepsis? 3. Present on Admission? Temp: 96.4->97.4->97.4 --on 03/22:96.3->97.4-.97.1 Pulse;96->90->90->90 WBC: 14.7->15.1->17.4->18.8->13.3 left shift 03/20: Blood cultures x 2 negative Gram Stain Wound culture x2: Providencia Rettgeri E-coli 03/25: Cardiology : 1) Gangrenous toe Assessment and Plan: cont DAPT ( ASA + plavix ) Abx for Sepsis t ranfuse to keep Hgb > 9 plan for peripheral angiogram ( will discuss with surgery for possible strate gy ) on Saturday IV heparin gtt Status: Acute Assessment and Plan: will need coronary evaluation ( can time it with peripheral ) asa, plavix, stati ns, bb, nitrates Status: Acute (3) Bilateral leg ulcer Status: Acute 03/26: Neuro: Altered mental status, which appears to be secondary to toxic metabolic encephalopathy. C ellulitis of the lower extremities. Underlying dementia. The patient's Clinical Indicators include: xx Query created by: Theresa Page on 03/28/2018 10:20 AM Electronically signed by: Jimbo Young MD 03/31/2018 1:24 PM
[2018-03-31] MEDS ORDERED: Potassium Chloride 20 mEq ER Tab PO ONE (14:43)
--- NOTE | 2018-03-31 15:26 | CP.PCM.PN ---
Subjective - Date & Time of Evaluation Date of Evaluation: 03/31/18 Time of Evaluation: 22:22 - Subjective Subjective: Above noted Objective - Vital Signs/Intake and Output Vital Signs (last 24 hours): Temp Pulse Resp BP Pulse Ox 97.6 F 71 20 111/61 99 03/31/18 08:00 03/31/18 10:21 03/31/18 08:00 03/31/18 10:21 03/31/18 08:00 - Medications Medications: Current Medications Acetaminophen (Tylenol 325mg Tab) 650 mg PO Q4 PRN PRN Reason: Pain, Mild (1-3) Last Admin: 03/28/18 00:54 Dose: 650 mg Aspirin (Aspirin) 325 mg PO DAILY [facility] Last Admin: 03/31/18 10:30 Dose: 325 mg Bisacodyl (Dulcolax) 10 mg [place] DAILY PRN PRN Reason: Constipation Clopidogrel Bisulfate (Plavix) 75 mg PO DAILY [facility] Last Admin: 03/31/18 10:23 Dose: 75 mg Dimethicone (Proshield Plus Skin Protectant) 1 applic TOP QSHIFT [facility] Last Admin: 03/31/18 10:23 Dose: 1 applic Docusate Sodium (Colace) 100 mg PO DAILY [facility] Last Admin: 03/31/18 10:22 Dose: 100 mg Escitalopram Oxalate (Lexapro) 5 mg PO HS [facility] Last Admin: 03/30/18 22:36 Dose: 5 mg Famotidine (Pepcid) 20 mg PO DAILY [facility] Last Admin: 03/31/18 10:22 Dose: 20 mg Ferrous Sulfate (Feosol) 325 mg PO DAILY [facility] Last Admin: 03/31/18 10:22 Dose: 325 mg Cefepime HCl 1 gm/ Sodium (Chloride) 100 mls @ 100 mls/hr IVPB DAILY [facility] PRN Reason: Protocol Last Admin: 03/31/18 10:30 Dose: 100 mls/hr Heparin Sodium/Dextrose (Heparin 25,000 Units/250ml In D5w) 25,000 units in 250 mls @ 10 mls/hr IV .Q24H [facility] PRN Reason: Protocol Isosorbide Mononitrate (Imdur Er) 30 mg PO DAILY [facility] Last Admin: 03/31/18 10:22 Dose: 30 mg Magnesium Hydroxide (Milk Of Magnesia) 30 ml PO HS PRN PRN Reason: Constipation Memantine (Namenda) 5 mg PO BID [facility] Last Admin: 03/31/18 10:21 Dose: 5 mg Metoprolol Tartrate (Lopressor) 25 mg PO Q12 [facility] Last Admin: 03/31/18 10:21 Dose: 25 mg Multivitamins/Minerals (Therapeutic-M Tab) 1 tab PO DAILY [facility] Last Admin: 03/31/18 10:21 Dose: 1 tab Silver Sulfadiazine (Silvadene 1% 50 Gm) 1 applic TOP BID [facility] Last Admin: 03/30/18 16:52 Dose: Not Given Sodium Hypochlorite (Dakins Solution 0.125%) 1 appl TOP QD7 [facility] Last Admin: 03/30/18 09:03 Dose: Not Given - Labs Labs: 03/31/18 05:40 03/31/18 05:40 PT 13.5 Seconds (9.8-13.1) H 03/25/18 18:33 INR 1.2 03/25/18 18:33 APTT 29.6 Seconds (25.6-37.1) 03/31/18 06:15 - Respiratory Exam Respiratory Exam: NORMAL BREATHING PATTERN - Cardiovascular Exam Cardiovascular Exam: REGULAR RHYTHM - GI/Abdominal Exam GI & Abdominal Exam: Normal Bowel Sounds Assessment and Plan - Assessment and Plan (Free Text) Assessment: PVD S/P Angioplasty Stents Low ext edema cellulitis gangrene Local wound care IV ABX DAPT Heparin ID Podiatry Surgery Physiatry Cardiology (Inv) ABBEY/ CKD creat 1.1 IVF Nephrology US Kidney WNl Altered mental status Toxic metabolic encephalopathy Adj disorder Depression Psychiatry Psychology Neurolgy SSRI D/C Tramadol and Namenda Hx CHF Diastolic CAD stress thalium scarring ischemia?? cardiac cath Cardiology Hx COPD L Pleural effusion Pulmonary Hx Anemia Chronic dx ASA d/c as outpt due to dec Hbg S/P Procrit transfusion NIDDM Thyroid dx
--- NOTE | 2018-03-31 18:40 | PN ---
Copied To: Lucia Corley MD Attending MD: Lucia Corley MD DATE: 03/31/2018 ENDO FOLLOWUP NOTE LOCATION: Room 660 SUBJECTIVE: This is a 77-year-old female with recent uncontrolled type 2 insulin-requiring diabetes now taken off all oral hypoglycemic therapy because of the variability of her oral intake with suboptimal meal portions. She has also been taken off her thyroid medications which was being given for management of hyperthyroidism. LABORATORY DATA: Her latest chemistry showed a BUN of 31, sodium 139, potassium 3.5, chloride 108, CO2 of 21, glucose 118, and creatinine 0.9. Her repeat thyroid studies showed a T4 of 5.29 with a TSH of 3.65, really indicative of the so-called acute sick euthyroid syndrome with underlying hypoalbuminemia contributing to the low thyroxine values as noted and expected. ASSESSMENT AND PLAN: We will hold off the resumption of her oral hypoglycemic therapy nor her medical therapy for hyperthyroidism at this time. We will obtain serial chemistries and supplement accordingly as needed. We will follow. Lucia Corley MD
[2018-03-31 21:15] LABS: INR 1.2; PROTHROMBIN TIME 13.8 Seconds (9.8-13.1)
[2018-03-31 22:59] LABS: PARTIAL THROMBOPLASTIN TIME 31.8 Seconds (25.6-37.1)
[2018-04-01 00:10] VITALS: BP 112/69; PULSE 67; RESP 19; TEMP 97.7; O2SAT 96
--- NOTE | 2018-04-01 07:51 | CP.PCM.PN ---
Subjective - Date & Time of Evaluation Date of Evaluation: 04/01/18 Time of Evaluation: 06:45 - Subjective Subjective: NO CHEST PAIN OR SOB MAJOR COMPLAINT IS PAIN IN THE TOES Objective - Vital Signs/Intake and Output Vital Signs (last 24 hours): Temp Pulse Resp BP Pulse Ox 97.7 F 67 19 112/69 96 04/01/18 00:00 04/01/18 00:00 04/01/18 00:00 04/01/18 00:00 04/01/18 00:00 - Medications Medications: Current Medications Acetaminophen (Tylenol 325mg Tab) 650 mg PO Q4 PRN PRN Reason: Pain, Mild (1-3) Last Admin: 03/28/18 00:54 Dose: 650 mg Aspirin (Aspirin) 325 mg PO DAILY [facility] Last Admin: 03/31/18 10:30 Dose: 325 mg Bisacodyl (Dulcolax) 10 mg [place] DAILY PRN PRN Reason: Constipation Clopidogrel Bisulfate (Plavix) 75 mg PO DAILY [facility] Last Admin: 03/31/18 10:23 Dose: 75 mg Dimethicone (Proshield Plus Skin Protectant) 1 applic TOP QSHIFT [facility] Last Admin: 03/31/18 17:31 Dose: 1 applic Docusate Sodium (Colace) 100 mg PO DAILY [facility] Last Admin: 03/31/18 10:22 Dose: 100 mg Escitalopram Oxalate (Lexapro) 5 mg PO HS [facility] Last Admin: 03/31/18 21:11 Dose: 5 mg Famotidine (Pepcid) 20 mg PO DAILY [facility] Last Admin: 03/31/18 10:22 Dose: 20 mg Ferrous Sulfate (Feosol) 325 mg PO DAILY [facility] Last Admin: 03/31/18 10:22 Dose: 325 mg Cefepime HCl 1 gm/ Sodium (Chloride) 100 mls @ 100 mls/hr IVPB DAILY [facility] PRN Reason: Protocol Last Admin: 03/31/18 10:30 Dose: 100 mls/hr Heparin Sodium/Dextrose (Heparin 25,000 Units/250ml In D5w) 25,000 units in 250 mls @ 13 mls/hr IV .[id number] [facility] PRN Reason: Protocol Last Admin: 04/01/18 00:30 Dose: 13 mls/hr Isosorbide Mononitrate (Imdur Er) 30 mg PO DAILY [facility] Last Admin: 03/31/18 10:22 Dose: 30 mg Magnesium Hydroxide (Milk Of Magnesia) 30 ml PO HS PRN PRN Reason: Constipation Memantine (Namenda) 5 mg PO BID [facility] Last Admin: 03/31/18 17:30 Dose: 5 mg Metoprolol Tartrate (Lopressor) 25 mg PO Q12 [facility] Last Admin: 03/31/18 21:12 Dose: 25 mg Multivitamins/Minerals (Therapeutic-M Tab) 1 tab PO DAILY [facility] Last Admin: 03/31/18 10:21 Dose: 1 tab Silver Sulfadiazine (Silvadene 1% 50 Gm) 1 applic TOP BID [facility] Last Admin: 03/31/18 17:32 Dose: 1 applic Sodium Hypochlorite (Dakins Solution 0.125%) 1 appl TOP QD7 [facility] Last Admin: 03/31/18 07:00 Dose: 1 appl - Labs Labs: 03/31/18 05:40 03/31/18 05:40 PT 13.8 Seconds (9.8-13.1) H 03/31/18 21:05 INR 1.2 03/31/18 21:05 APTT 31.8 Seconds (25.6-37.1) 03/31/18 21:05 - Respiratory Exam Respiratory Exam: Decreased Breath Sounds - Cardiovascular Exam Cardiovascular Exam: REGULAR RHYTHM, +S1, +S2 - Extremities Exam Additional comments: GANGRENOUS TOES ON BOTH FEET - Additional Findings Additional findings: BUN/CR 31/0.9 GFR >60 Assessment and Plan - Assessment and Plan (Free Text) Assessment: CAD PAD HYPERTENSION COPD Plan: TO [facility] [place] TODAY FOR LE ANGIO AND CORONARY ANGIO
[2018-04-01] MEDS: Cefepime 1 GM in Sodium Chloride 0.9% 100 ML IVPB SCH (08:43)
[2018-04-01] MEDS: Silver Sulfadiazine 1% CREAM (50 gm) TOP SCH (08:44)
[2018-04-01] MEDS: Multivitamin With Minerals Tab PO SCH (08:45)
--- NOTE | 2018-04-01 08:59 | CP.PCM.PN ---
Objective - Vital Signs/Intake and Output Vital Signs (last 24 hours): Temp Pulse Resp BP Pulse Ox 97.7 F 67 19 112/69 96 04/01/18 00:00 04/01/18 00:00 04/01/18 00:00 04/01/18 00:00 04/01/18 00:00 - Medications Medications: Current Medications Acetaminophen (Tylenol 325mg Tab) 650 mg PO Q4 PRN PRN Reason: Pain, Mild (1-3) Last Admin: 03/28/18 00:54 Dose: 650 mg Aspirin (Aspirin) 325 mg PO DAILY [facility] Last Admin: 04/01/18 08:42 Dose: Not Given Bisacodyl (Dulcolax) 10 mg [place] DAILY PRN PRN Reason: Constipation Clopidogrel Bisulfate (Plavix) 75 mg PO DAILY [facility] Last Admin: 04/01/18 08:44 Dose: Not Given Dimethicone (Proshield Plus Skin Protectant) 1 applic TOP QSHIFT [facility] Last Admin: 03/31/18 17:31 Dose: 1 applic Docusate Sodium (Colace) 100 mg PO DAILY [facility] Last Admin: 04/01/18 08:42 Dose: Not Given Escitalopram Oxalate (Lexapro) 5 mg PO HS [facility] Last Admin: 03/31/18 21:11 Dose: 5 mg Famotidine (Pepcid) 20 mg PO DAILY [facility] Last Admin: 04/01/18 08:44 Dose: Not Given Ferrous Sulfate (Feosol) 325 mg PO DAILY [facility] Last Admin: 04/01/18 08:43 Dose: Not Given Cefepime HCl 1 gm/ Sodium (Chloride) 100 mls @ 100 mls/hr IVPB DAILY [facility] PRN Reason: Protocol Last Admin: 04/01/18 08:43 Dose: Not Given Heparin Sodium/Dextrose (Heparin 25,000 Units/250ml In D5w) 25,000 units in 250 mls @ 13 mls/hr IV .[id number] [facility] PRN Reason: Protocol Last Admin: 04/01/18 00:30 Dose: 13 mls/hr Isosorbide Mononitrate (Imdur Er) 30 mg PO DAILY [facility] Last Admin: 04/01/18 08:43 Dose: Not Given Magnesium Hydroxide (Milk Of Magnesia) 30 ml PO HS PRN PRN Reason: Constipation Memantine (Namenda) 5 mg PO BID [facility] Last Admin: 04/01/18 08:44 Dose: Not Given Metoprolol Tartrate (Lopressor) 25 mg PO Q12 [facility] Last Admin: 04/01/18 08:43 Dose: Not Given Multivitamins/Minerals (Therapeutic-M Tab) 1 tab PO DAILY [facility] Last Admin: 04/01/18 08:45 Dose: Not Given Silver Sulfadiazine (Silvadene 1% 50 Gm) 1 applic TOP BID [facility] Last Admin: 04/01/18 08:44 Dose: Not Given Sodium Hypochlorite (Dakins Solution 0.125%) 1 appl TOP QD7 [facility] Last Admin: 04/01/18 08:43 Dose: Not Given - Labs Labs: 03/31/18 05:40 03/31/18 05:40 PT 13.8 Seconds (9.8-13.1) H 03/31/18 21:05 INR 1.2 03/31/18 21:05 APTT 31.8 Seconds (25.6-37.1) 03/31/18 21:05 Assessment and Plan (1) Gangrenous toe Status: Acute (2) Abnormal nuclear stress test Status: Acute (3) Bilateral leg ulcer Status: Acute (4) Anemia Status: Acute
--- NOTE | 2018-04-01 11:16 | CP.PCM.PN ---
Subjective - Date & Time of Evaluation Date of Evaluation: 04/01/18 Time of Evaluation: 11:13 - Subjective Subjective: no unusual events reported patient appears to be stable no vomiting Objective - Vital Signs/Intake and Output Vital Signs (last 24 hours): Temp Pulse Resp BP Pulse Ox 97.7 F 67 19 112/69 96 04/01/18 00:00 04/01/18 00:00 04/01/18 00:00 04/01/18 00:00 04/01/18 00:00 - Medications Medications: Current Medications Acetaminophen (Tylenol 325mg Tab) 650 mg PO Q4 PRN PRN Reason: Pain, Mild (1-3) Last Admin: 03/28/18 00:54 Dose: 650 mg Aspirin (Aspirin) 325 mg PO DAILY [facility] Last Admin: 04/01/18 08:42 Dose: Not Given Bisacodyl (Dulcolax) 10 mg [place] DAILY PRN PRN Reason: Constipation Clopidogrel Bisulfate (Plavix) 75 mg PO DAILY [facility] Last Admin: 04/01/18 08:44 Dose: Not Given Dimethicone (Proshield Plus Skin Protectant) 1 applic TOP QSHIFT [facility] Last Admin: 03/31/18 17:31 Dose: 1 applic Docusate Sodium (Colace) 100 mg PO DAILY [facility] Last Admin: 04/01/18 08:42 Dose: Not Given Escitalopram Oxalate (Lexapro) 5 mg PO HS [facility] Last Admin: 03/31/18 21:11 Dose: 5 mg Famotidine (Pepcid) 20 mg PO DAILY [facility] Last Admin: 04/01/18 08:44 Dose: Not Given Ferrous Sulfate (Feosol) 325 mg PO DAILY [facility] Last Admin: 04/01/18 08:43 Dose: Not Given Cefepime HCl 1 gm/ Sodium (Chloride) 100 mls @ 100 mls/hr IVPB DAILY [facility] PRN Reason: Protocol Last Admin: 04/01/18 08:43 Dose: Not Given Heparin Sodium/Dextrose (Heparin 25,000 Units/250ml In D5w) 25,000 units in 250 mls @ 13 mls/hr IV .[id number] [facility] PRN Reason: Protocol Last Admin: 04/01/18 00:30 Dose: 13 mls/hr Isosorbide Mononitrate (Imdur Er) 30 mg PO DAILY [facility] Last Admin: 04/01/18 08:43 Dose: Not Given Magnesium Hydroxide (Milk Of Magnesia) 30 ml PO HS PRN PRN Reason: Constipation Memantine (Namenda) 5 mg PO BID [facility] Last Admin: 04/01/18 08:44 Dose: Not Given Metoprolol Tartrate (Lopressor) 25 mg PO Q12 [facility] Last Admin: 04/01/18 08:43 Dose: Not Given Multivitamins/Minerals (Therapeutic-M Tab) 1 tab PO DAILY [facility] Last Admin: 04/01/18 08:45 Dose: Not Given Silver Sulfadiazine (Silvadene 1% 50 Gm) 1 applic TOP BID [facility] Last Admin: 04/01/18 08:44 Dose: Not Given Sodium Hypochlorite (Dakins Solution 0.125%) 1 appl TOP QD7 [facility] Last Admin: 04/01/18 08:43 Dose: Not Given - Labs Labs: 03/31/18 05:40 03/31/18 05:40 PT 13.8 Seconds (9.8-13.1) H 03/31/18 21:05 INR 1.2 03/31/18 21:05 APTT 31.8 Seconds (25.6-37.1) 03/31/18 21:05 - Eye Exam Eye Exam: Conjunctival injection - ENT Exam ENT Exam: Mucous Membranes Moist - Neck Exam Neck Exam: absent: Lymphadenopathy - Respiratory Exam Respiratory Exam: absent: Chest Wall Tenderness - Cardiovascular Exam Cardiovascular Exam: absent: Gallop, JVD, Rubs - GI/Abdominal Exam GI & Abdominal Exam: Soft, Normal Bowel Sounds - Extremities Exam Extremities Exam: absent: Calf Tenderness - Back Exam Back Exam: absent: CVA tenderness (L), CVA tenderness (R) - Psychiatric Exam Psychiatric exam: Normal Affect - Skin Skin Exam: absent: Cyanosis Assessment and Plan (1) Bilateral leg ulcer Status: Acute (2) ABBEY (acute kidney injury) Assessment & Plan: patient recovers from acute kidney injury serum creatinine back to normal. Mild hypokalemia patient given 40 mEq potassium chloride yesterday. Bilateral leg ulceration and cellulitis Antibiotics as per primary team Status: Acute
--- NOTE | 2018-04-01 15:39 | PN ---
Copied To: Lucia Corley MD Attending MD: Lucia Corley MD DATE: 04/01/2018 ENDO FOLLOWUP NOTE. LOCATION: In room 660. SUBJECTIVE: This is a 77-year-old female with recent uncontrolled type 2 diabetes, now being followed closely for metabolic management. Her glycemic levels are much improved at this time, especially with the variability of her oral intake and the glucose values have ranged from 141 to mg/dL. LABORATORY DATA: Her latest chemistry showed a BUN of 31, sodium 139, potassium 3.5, chloride 108, CO2 of 21, glucose 118, and creatinine of 0.9. Her latest thyroid studies showed a T4 of 5.29 with a TSH of 3.65. ASSESSMENT AND PLAN: We will hold possible resumption of her oral hypoglycemic therapy for now and also her glycemic fluctuation, also oral intake restart on a much lower dose regimen accordingly. We will also hold possible resumption of Tapazole medications because of subclinical hypothyroidism as noted thereof. We will obtain serial chemistries and supplement accordingly as needed. We will follow. Lucia Corley MD
--- NOTE | 2018-04-01 19:54 | CP.PCM.PN ---
Subjective - Date & Time of Evaluation Date of Evaluation: 04/01/18 Time of Evaluation: 22:22 - Subjective Subjective: Above noted Objective - Vital Signs/Intake and Output Vital Signs (last 24 hours): Temp Pulse Resp BP Pulse Ox 97.7 F 67 19 112/69 96 04/01/18 00:00 04/01/18 00:00 04/01/18 00:00 04/01/18 00:00 04/01/18 00:00 - Labs Labs: 03/31/18 05:40 03/31/18 05:40 PT 13.8 Seconds (9.8-13.1) H 03/31/18 21:05 INR 1.2 03/31/18 21:05 APTT 31.8 Seconds (25.6-37.1) 03/31/18 21:05 - Respiratory Exam Respiratory Exam: NORMAL BREATHING PATTERN - Cardiovascular Exam Cardiovascular Exam: REGULAR RHYTHM - GI/Abdominal Exam GI & Abdominal Exam: Normal Bowel Sounds Assessment and Plan - Assessment and Plan (Free Text) Assessment: PVD S/P Angioplasty Stents Low ext edema cellulitis gangrene Local wound care IV ABX DAPT Heparin ID Podiatry Surgery Physiatry Cardiology (Inv) ABBEY/ CKD creat 1.1 IVF Nephrology US Kidney WNl Altered mental status Toxic metabolic encephalopathy Adj disorder Depression Psychiatry Psychology Neurolgy SSRI D/C Tramadol and Namenda Hx CHF Diastolic CAD stress thalium scarring ischemia?? cardiac cath Cardiology Hx COPD L Pleural effusion Pulmonary Hx Anemia Chronic dx ASA d/c as outpt due to dec Hbg S/P Procrit transfusion NIDDM Thyroid dx
== END 2018-04-01 14:51 | disposition short-term general hospital (02) | DRG 299 ==
LOC: H.ER 12:53 → H.ERHOLD 16:22 → H.MEDSURG1 18:27
PROVIDERS: ADMIT Family Medicine Geriatric Medicine; ATTEND Family Medicine Geriatric Medicine
DX: E11.52 Type 2 diabetes mellitus with diabetic peripheral angiopathy with gangrene (principal); G92 Toxic encephalopathy; I13.0 Hypertensive heart and chronic kidney disease with heart failure and stage 1 through stage 4 chronic kidney disease, or unspecified chronic kidney disease; I50.32 Chronic diastolic (congestive) heart failure; L03.115 Cellulitis of right lower limb; L03.116 Cellulitis of left lower limb; L97.919 Non-pressure chronic ulcer of unspecified part of right lower leg with unspecified severity; L97.929 Non-pressure chronic ulcer of unspecified part of left lower leg with unspecified severity; N17.9 Acute kidney failure, unspecified; B96.20 Unspecified Escherichia coli [E. coli] as the cause of diseases classified elsewhere; E05.90 Thyrotoxicosis, unspecified without thyrotoxic crisis or storm; E02 Subclinical iodine-deficiency hypothyroidism; E11.21 Type 2 diabetes mellitus with diabetic nephropathy; E11.22 Type 2 diabetes mellitus with diabetic chronic kidney disease; E11.42 Type 2 diabetes mellitus with diabetic polyneuropathy; E11.622 Type 2 diabetes mellitus with other skin ulcer; E11.65 Type 2 diabetes mellitus with hyperglycemia; E11.319 Type 2 diabetes mellitus with unspecified diabetic retinopathy without macular edema; D63.8 Anemia in other chronic diseases classified elsewhere; F03.90 Unspecified dementia, unspecified severity, without behavioral disturbance, psychotic disturbance, mood disturbance, and anxiety; I25.10 Atherosclerotic heart disease of native coronary artery without angina pectoris; I77.1 Stricture of artery; N18.9 Chronic kidney disease, unspecified; J44.9 Chronic obstructive pulmonary disease, unspecified; F43.23 Adjustment disorder with mixed anxiety and depressed mood; E78.5 Hyperlipidemia, unspecified; E78.00 Pure hypercholesterolemia, unspecified; Z91.19 Patient's noncompliance with other medical treatment and regimen; Z98.61 Coronary angioplasty status; Z87.891 Personal history of nicotine dependence; Z74.01 Bed confinement status; Z79.02 Long term (current) use of antithrombotics/antiplatelets; Z79.4 Long term (current) use of insulin; Z79.82 Long term (current) use of aspirin; Z87.01 Personal history of pneumonia (recurrent); Z87.442 Personal history of urinary calculi

== ENCOUNTER 2018-04-04 16:28 | Inpatient (IN) | payer MEDICARE ==
--- NOTE | 2018-04-04 19:23 | CP.PCM.HP ---
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 No Endovascular intervention Vascular surgery recommended AKA Present on Admission - Present on Admission Any Indicators Present on Admission: No Past Patient History - Infectious Disease Hx of Infectious Diseases: None - Past Medical History & Family History Past Medical History?: Yes - Past Social History Smoking Status: Former Smoker - CARDIAC Hx Cardiac Disorders: Yes (CAD) Hx Congestive Heart Failure: Yes Hx Hypercholesterolemia: Yes Hx Hypertension: Yes - PULMONARY Hx Chronic Obstructive Pulmonary Disease (COPD): Yes - NEUROLOGICAL Hx Neurological Disorder: Yes Other/Comment: Paresthesias of both feet - HEENT Hx HEENT Problems: No - RENAL Hx Chronic Kidney Disease: No - ENDOCRINE/METABOLIC Hx Diabetes Mellitus Type 2: Yes - HEMATOLOGICAL/ONCOLOGICAL Hx Blood Disorders: Yes Hx Anemia: Yes - INTEGUMENTARY Hx Dermatological Problems: Yes Hx Cellulitis: Yes - MUSCULOSKELETAL/RHEUMATOLOGICAL Hx Musculoskeletal Disorders: Yes Hx Falls: Yes - GASTROINTESTINAL Hx Gastrointestinal Disorders: No - GENITOURINARY/GYNECOLOGICAL Hx Genitourinary Disorders: No - PSYCHIATRIC Hx Psychophysiologic Disorder: Yes Hx Anxiety: Yes Hx Substance Use: No - SURGICAL HISTORY Hx Surgeries: Yes Hx Appendectomy: Yes Other/Comment: kidney stone removal - ANESTHESIA Hx Anesthesia: Yes Hx Anesthesia Reactions: No Hx Malignant Hyperthermia: No Meds Allergies/Adverse Reactions: Allergies Allergy/AdvReac Type Severity Reaction Status Date / Time No Known Allergies Allergy Verified 03/20/18 12:54 Physical Exam - Respiratory Exam Respiratory Exam: NORMAL BREATHING PATTERN - Cardiovascular Exam Cardiovascular Exam: REGULAR RHYTHM - GI/Abdominal Exam GI & Abdominal Exam: Normal Bowel Sounds Assessment & Plan - Assessment and Plan (Free Text) Assessment: PVD S/P Angioplasty Iliac A.Stents S/P Angiogram PRODUCT DIRECTOR occlusion Low ext edema cellulitis gangrene Local wound care IV ABX DAPT Lovenox ID Podiatry Surgery Physiatry Cardiology (Inv) Altered mental status Toxic metabolic encephalopathy Adj disorder Depression Psychiatry Psychology Neurolgy SSRI D/C Tramadol ABBEY/ CKD IVF Nephrology US Kidney WNl Hx CHF Diastolic CAD stress thalium scarring ischemia?? Cardiology Hx COPD L Pleural effusion Pulmonary Hx Anemia Chronic dx NIDDM Thyroid dx - Date & Time Date: 04/04/18 Time: 22:22
[2018-04-04] MEDS: Enoxaparin 60 mg Syringe SC SCH (21:39)
[2018-04-04] MEDS ORDERED: Patient's Own Med (Rosuvastatin Calcium [Crestor] 10 MG) PO SCH (22:00)
[2018-04-05] MEDS: Cefepime 1 GM in Sodium Chloride 0.9% 100 ML IVPB SCH ×2 (00:16→09:31)
--- NOTE | 2018-04-05 07:44 | CP.PCM.CON ---
History of Present Illness - History of Present Illness History of Present Illness: General Surgery - Dr. Woods 77 yo F w/ pmh of COPD, DM, CAD, CHF, Anemia, PAD with non-healing b/l lower extremity wounds and dry gangrene of the toes. She was at [facility] for a period of time and transfered to [facility] where she underwent angiogram with Dr. Damon on 04/01. 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 Pt was seen by vascular surgery while at [facility] and offered B/L AKA, however patient refused any surgical intervention. Pt currently complaining of pain in the lower extremities b/l and states that she wants to go home. She denies any fevers/chills, sob or chest pain. PMH: COPD, DM, CAD, CHF, Chronic anemia and PVD PSH:appendectomy, Angioplasty w b/l illiac stents (02/12/18) NKDA Review of Systems - Review of Systems All systems: reviewed and no additional remarkable complaints except (as per HPI ) Past Patient History - Infectious Disease Hx of Infectious Diseases: None - Past Medical History & Family History Past Medical History?: Yes - Past Social History Smoking Status: Former Smoker - CARDIAC Hx Cardiac Disorders: Yes (CAD) Hx Congestive Heart Failure: Yes Hx Hypercholesterolemia: Yes Hx Hypertension: Yes Hx Peripheral Edema: Yes Hx Peripheral Vascular Disease: Yes - PULMONARY Hx Chronic Obstructive Pulmonary Disease (COPD): Yes - NEUROLOGICAL Hx Neurological Disorder: Yes Hx Dementia: Yes Other/Comment: Paresthesias of both feet - HEENT Hx HEENT Problems: No - RENAL Hx Chronic Kidney Disease: No Hx Kidney Stones: Yes - ENDOCRINE/METABOLIC Hx Diabetes Mellitus Type 2: Yes - HEMATOLOGICAL/ONCOLOGICAL Hx Blood Disorders: Yes Hx Anemia: Yes - INTEGUMENTARY Hx Dermatological Problems: Yes Hx Cellulitis: Yes - MUSCULOSKELETAL/RHEUMATOLOGICAL Hx Falls: Yes - GASTROINTESTINAL Hx Gastrointestinal Disorders: No - GENITOURINARY/GYNECOLOGICAL Hx Genitourinary Disorders: No - PSYCHIATRIC Hx Substance Use: No - SURGICAL HISTORY Hx Surgeries: Yes Hx Angiogram: Yes Hx Appendectomy: Yes Other/Comment: kidney stone removal - ANESTHESIA Hx Anesthesia: Yes Hx Anesthesia Reactions: No Hx Malignant Hyperthermia: No Meds Allergies/Adverse Reactions: Allergies Allergy/AdvReac Type Severity Reaction Status Date / Time No Known Allergies Allergy Verified 03/20/18 12:54 - Medications Medications: Current Medications Atorvastatin Calcium (Lipitor) 20 mg PO DAILY [facility] Bisacodyl (Dulcolax) 10 mg [place] DAILY PRN PRN Reason: Constipation Docusate Sodium (Colace) 100 mg PO DAILY [facility] Enoxaparin Sodium (Lovenox) 60 mg [place] Q12 [facility] PRN Reason: Protocol Last Admin: 04/04/18 21:39 Dose: 60 mg Famotidine (Pepcid) 20 mg PO DAILY [facility] Cefepime HCl 1 gm/ Sodium (Chloride) 100 mls @ 200 mls/hr IVPB DAILY [facility] PRN Reason: Protocol Last Admin: 04/05/18 00:16 Dose: 200 mls/hr Vancomycin HCl 1 gm/ Sodium (Chloride) 250 mls @ 166.667 mls/hr IVPB DAILY [facility] PRN Reason: Protocol Isosorbide Mononitrate (Imdur Er) 30 mg PO DAILY [facility] Lisinopril (Zestril) 5 mg PO DAILY [facility] Memantine (Namenda) 5 mg PO BID [facility] Metoprolol Tartrate (Lopressor) 25 mg PO Q12 [facility] Last Admin: 04/04/18 21:39 Dose: 25 mg Multivitamins/Minerals (Therapeutic-M Tab) 1 tab PO DAILY [facility] Oxycodone/Acetaminophen (Percocet 5/325 Mg Tab) 1 tab PO Q4 PRN PRN Reason: Pain, moderate (4-7) Stop: 04/07/18 19:06 Saccharomyces Boulardii (Florastor) 250 mg PO BID [facility] Physical Exam - Constitutional Appears: No Acute Distress - Head Exam Head Exam: ATRAUMATIC, NORMAL INSPECTION, NORMOCEPHALIC - Eye Exam Eye Exam: Normal appearance - Respiratory Exam Respiratory Exam: NORMAL BREATHING PATTERN. absent: Respiratory Distress - Cardiovascular Exam Cardiovascular Exam: REGULAR RHYTHM - Extremities Exam Additional comments: dry gangrene of several toes b/l, non-healing lower extremity ulcers unable to examine as pt would not allow removal of dressings - Neurological Exam Neurological exam: Alert - Psychiatric Exam Psychiatric exam: Agitated, Anxious Results - Vital Signs Recent Vital Signs: Last Vital Signs Temp 97.5 F L 04/05/18 00:39 Pulse 65 04/05/18 00:39 Resp 18 04/05/18 00:39 BP 105/53 L 04/05/18 00:39 Pulse Ox 96 04/05/18 00:39 Assessment & Plan - Assessment and Plan (Free Text) Assessment: 77 yo F w/ 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 At this time she refuses to respond as to whether she is agreeable to surgery, and says that she just wants to go home. -Will follow with you and plan for surgery if patient agreeable. PATTI Urena PGY4
--- NOTE | 2018-04-05 07:48 | CP.PCM.PN ---
Subjective - Date & Time of Evaluation Date of Evaluation: 04/05/18 Time of Evaluation: 22:22 - Subjective Subjective: Above noted Objective - Vital Signs/Intake and Output Vital Signs (last 24 hours): Temp Pulse Resp BP Pulse Ox 97.5 F L 65 18 105/53 L 96 04/05/18 00:39 04/05/18 00:39 04/05/18 00:39 04/05/18 00:39 04/05/18 00:39 - Medications Medications: Current Medications Atorvastatin Calcium (Lipitor) 20 mg PO DAILY [facility] Bisacodyl (Dulcolax) 10 mg [place] DAILY PRN PRN Reason: Constipation Docusate Sodium (Colace) 100 mg PO DAILY [facility] Enoxaparin Sodium (Lovenox) 60 mg [place] Q12 [facility] PRN Reason: Protocol Last Admin: 04/04/18 21:39 Dose: 60 mg Famotidine (Pepcid) 20 mg PO DAILY [facility] Cefepime HCl 1 gm/ Sodium (Chloride) 100 mls @ 200 mls/hr IVPB DAILY [facility] PRN Reason: Protocol Last Admin: 04/05/18 00:16 Dose: 200 mls/hr Vancomycin HCl 1 gm/ Sodium (Chloride) 250 mls @ 166.667 mls/hr IVPB DAILY [facility] PRN Reason: Protocol Isosorbide Mononitrate (Imdur Er) 30 mg PO DAILY [facility] Lisinopril (Zestril) 5 mg PO DAILY [facility] Memantine (Namenda) 5 mg PO BID [facility] Metoprolol Tartrate (Lopressor) 25 mg PO Q12 [facility] Last Admin: 04/04/18 21:39 Dose: 25 mg Multivitamins/Minerals (Therapeutic-M Tab) 1 tab PO DAILY [facility] Oxycodone/Acetaminophen (Percocet 5/325 Mg Tab) 1 tab PO Q4 PRN PRN Reason: Pain, moderate (4-7) Stop: 04/07/18 19:06 Saccharomyces Boulardii (Florastor) 250 mg PO BID [facility] - Respiratory Exam Respiratory Exam: NORMAL BREATHING PATTERN - Cardiovascular Exam Cardiovascular Exam: REGULAR RHYTHM - GI/Abdominal Exam GI & Abdominal Exam: Normal Bowel Sounds Assessment and Plan - Assessment and Plan (Free Text) Assessment: PVD S/P Angioplasty Iliac A.Stents S/P Angiogram [facility] occlusion Low ext edema cellulitis gangrene Local wound care IV ABX DAPT Lovenox ID Podiatry Surgery Physiatry Cardiology (Inv) Surgery AKA ??? Altered mental status Toxic metabolic encephalopathy Adj disorder Depression Psychiatry Psychology Neurolgy SSRI D/C Tramadol ABBEY/ CKD IVF Nephrology US Kidney WNl Hx CHF Diastolic CAD stress thalium scarring ischemia?? Cardiology Hx COPD L Pleural effusion Pulmonary Hx Anemia Chronic dx NIDDM Thyroid dx
[2018-04-05] MEDS ORDERED: Patient's Own Med (Multivitamin [Multi-Vitamin Daily] 1 TAB) PO SCH (09:00)
[2018-04-05] MEDS: Saccharomyces Boulardi 250 mg Cap PO SCH ×2 (09:30→16:46)
[2018-04-05] MEDS: Enoxaparin 60 mg Syringe SC SCH ×2 (09:31→22:00)
[2018-04-05] MEDS: Multivitamin With Minerals Tab PO SCH (09:32)
--- NOTE | 2018-04-05 12:40 | CP.PCM.CON ---
History of Present Illness - History of Present Illness History of Present Illness: This 77 year old female, former cigarette smoker, is known to me from prior hospitalization. She has a prior diagnosis of COPD and suffers from severe PAD of both lower extremities. On prior admission she has had a left sided pleural effusion with retrocardiac basal atelectasis. er respiratory status has been stable and she is admitted again because of her lower extremity edema and gangrene. There has been recommendation for amputation of both LE's BKA. She does not complain of shortness of breath or cough, and her oxygenation has been stable while hospitalized. Past Patient History - Infectious Disease Hx of Infectious Diseases: None - Past Medical History & Family History Past Medical History?: Yes - Past Social History Smoking Status: Former Smoker Chewing Tobacco Use: No Cigar Use: No Alcohol: None Drugs: Denies Home Situation {Lives}: Alone - CARDIAC Hx Cardiac Disorders: Yes (CAD) Hx Congestive Heart Failure: Yes Hx Hypercholesterolemia: Yes Hx Hypertension: Yes Hx Peripheral Edema: Yes Hx Peripheral Vascular Disease: Yes - PULMONARY Hx Chronic Obstructive Pulmonary Disease (COPD): Yes Other/Comment: Sub-segmental atelectasis LLL. Left pleural effusion. - NEUROLOGICAL Hx Neurological Disorder: Yes Hx Dementia: Yes Other/Comment: Paresthesias of both feet - HEENT Hx HEENT Problems: No - RENAL Hx Chronic Kidney Disease: No Hx Kidney Stones: Yes - ENDOCRINE/METABOLIC Hx Diabetes Mellitus Type 2: Yes - HEMATOLOGICAL/ONCOLOGICAL Hx Blood Disorders: Yes Hx Anemia: Yes - INTEGUMENTARY Hx Dermatological Problems: Yes Hx Cellulitis: Yes - MUSCULOSKELETAL/RHEUMATOLOGICAL Hx Falls: Yes - GASTROINTESTINAL Hx Gastrointestinal Disorders: No - GENITOURINARY/GYNECOLOGICAL Hx Genitourinary Disorders: No - PSYCHIATRIC Hx Substance Use: No - SURGICAL HISTORY Hx Surgeries: Yes Hx Angiogram: Yes Hx Appendectomy: Yes Other/Comment: kidney stone removal - ANESTHESIA Hx Anesthesia: Yes Hx Anesthesia Reactions: No Hx Malignant Hyperthermia: No Meds Allergies/Adverse Reactions: Allergies Allergy/AdvReac Type Severity Reaction Status Date / Time No Known Allergies Allergy Verified 03/20/18 12:54 - Medications Medications: Current Medications Atorvastatin Calcium (Lipitor) 20 mg PO DAILY [facility] Last Admin: 04/05/18 09:30 Dose: 20 mg Bisacodyl (Dulcolax) 10 mg [place] DAILY PRN PRN Reason: Constipation Docusate Sodium (Colace) 100 mg PO DAILY [facility] Last Admin: 04/05/18 09:30 Dose: 100 mg Enoxaparin Sodium (Lovenox) 60 mg [place] Q12 [facility] PRN Reason: Protocol Last Admin: 04/05/18 09:31 Dose: 60 mg Famotidine (Pepcid) 20 mg PO DAILY [facility] Last Admin: 04/05/18 09:32 Dose: 20 mg Cefepime HCl 1 gm/ Sodium (Chloride) 100 mls @ 200 mls/hr IVPB DAILY [facility] PRN Reason: Protocol Last Admin: 04/05/18 09:31 Dose: 200 mls/hr Vancomycin HCl 1 gm/ Sodium (Chloride) 250 mls @ 166.667 mls/hr IVPB DAILY [facility] PRN Reason: Protocol Isosorbide Mononitrate (Imdur Er) 30 mg PO DAILY [facility] Last Admin: 04/05/18 09:30 Dose: 30 mg Lisinopril (Zestril) 5 mg PO DAILY [facility] Last Admin: 04/05/18 09:32 Dose: 5 mg Memantine (Namenda) 5 mg PO BID [facility] Last Admin: 04/05/18 09:32 Dose: 5 mg Metoprolol Tartrate (Lopressor) 25 mg PO Q12 [facility] Last Admin: 04/05/18 09:30 Dose: 25 mg Multivitamins/Minerals (Therapeutic-M Tab) 1 tab PO DAILY [facility] Last Admin: 04/05/18 09:32 Dose: 1 tab Oxycodone/Acetaminophen (Percocet 5/325 Mg Tab) 1 tab PO Q4 PRN PRN Reason: Pain, moderate (4-7) Stop: 04/07/18 19:06 Saccharomyces Boulardii (Florastor) 250 mg PO BID [facility] Last Admin: 04/05/18 09:30 Dose: 250 mg Physical Exam - Additional Findings Additional findings: Well-nourished, well-developed female, depressed facies. Awake and oriented 3, in no acute distress, slow response to questioning. She is cooperative with the examination and follows all commands. The pharynx is pink and the mucous membranes are moist. No exudate. The neck is supple and trachea is midline. No neck vein distention is noted. No carotid bruit appreciated. No palpable thyromegaly. Dullness to percussion on the thorax posteriorly at the left base. Breath sounds are diminished in the lower lobes bilaterally, more so left than right. Occasional scattered medium rales are heard in the lower lobes. Scattered sonorous rhonchi are heard in the lower lobes as well as few sibilant rhonchi. No audible wheezing. No bronchial breathing. Heart sounds are distant and the rhythm is regular. Abdomen is soft and nontender with normal bowel sounds. Both lower extremities have large surgical dressings applied. 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 Has adequate oxygenation breathing room air at rest. Will request upright portable chest x-ray to evaluate for effusions and/or atelectasis. She did voice to me that if amputation of the legs was necessary she would agree. - Date & Time Date: 04/05/18 Time: 12:36
--- NOTE | 2018-04-05 14:00 | CP.PCM.CON ---
History of Present Illness - History of Present Illness History of Present Illness: Podiatry Consult Note for attending Dr. Briseno 77 y.o female with PMH of DM, CAD, CHF, chronic anemia, PVD and lower extremity ulcerations with swelling. Patient is familiar to the podiatry team, and was transferred to [facility]. Patient has had angiogram at [facility]. Patient is seen sitting in bed, hard to communicate with. During the time of encounter, patient denies nausea, fever, shortness of breath, or chest pains. PMH: DM, CAD, CHF, chronic anemia, PVD and lower extremity ulcerations with cellulites PSH: Appendectomy Allergies: NKDA Past Patient History - Infectious Disease Hx of Infectious Diseases: None - Past Medical History & Family History Past Medical History?: Yes - Past Social History Smoking Status: Former Smoker - CARDIAC Hx Cardiac Disorders: Yes (CAD) Hx Congestive Heart Failure: Yes Hx Hypercholesterolemia: Yes Hx Hypertension: Yes Hx Peripheral Edema: Yes Hx Peripheral Vascular Disease: Yes - PULMONARY Hx Chronic Obstructive Pulmonary Disease (COPD): Yes - NEUROLOGICAL Hx Neurological Disorder: Yes Hx Dementia: Yes Other/Comment: Paresthesias of both feet - HEENT Hx HEENT Problems: No - RENAL Hx Chronic Kidney Disease: No Hx Kidney Stones: Yes - ENDOCRINE/METABOLIC Hx Diabetes Mellitus Type 2: Yes - HEMATOLOGICAL/ONCOLOGICAL Hx Blood Disorders: Yes Hx Anemia: Yes - INTEGUMENTARY Hx Dermatological Problems: Yes Hx Cellulitis: Yes - MUSCULOSKELETAL/RHEUMATOLOGICAL Hx Falls: Yes - GASTROINTESTINAL Hx Gastrointestinal Disorders: No - GENITOURINARY/GYNECOLOGICAL Hx Genitourinary Disorders: No - PSYCHIATRIC Hx Substance Use: No - SURGICAL HISTORY Hx Surgeries: Yes Hx Angiogram: Yes Hx Appendectomy: Yes Other/Comment: kidney stone removal - ANESTHESIA Hx Anesthesia: Yes Hx Anesthesia Reactions: No Hx Malignant Hyperthermia: No Meds Allergies/Adverse Reactions: Allergies Allergy/AdvReac Type Severity Reaction Status Date / Time No Known Allergies Allergy Verified 03/20/18 12:54 - Medications Medications: Current Medications Atorvastatin Calcium (Lipitor) 20 mg PO DAILY [facility] Last Admin: 04/05/18 09:30 Dose: 20 mg Bisacodyl (Dulcolax) 10 mg [place] DAILY PRN PRN Reason: Constipation Docusate Sodium (Colace) 100 mg PO DAILY [facility] Last Admin: 04/05/18 09:30 Dose: 100 mg Enoxaparin Sodium (Lovenox) 60 mg SC Q12 [facility] PRN Reason: Protocol Last Admin: 04/05/18 09:31 Dose: 60 mg Famotidine (Pepcid) 20 mg PO DAILY [facility] Last Admin: 04/05/18 09:32 Dose: 20 mg Cefepime HCl 1 gm/ Sodium (Chloride) 100 mls @ 200 mls/hr IVPB DAILY [facility] PRN Reason: Protocol Last Admin: 04/05/18 09:31 Dose: 200 mls/hr Vancomycin HCl 1 gm/ Sodium (Chloride) 250 mls @ 166.667 mls/hr IVPB DAILY [facility] PRN Reason: Protocol Isosorbide Mononitrate (Imdur Er) 30 mg PO DAILY [facility] Last Admin: 04/05/18 09:30 Dose: 30 mg Lisinopril (Zestril) 5 mg PO DAILY [facility] Last Admin: 04/05/18 09:32 Dose: 5 mg Memantine (Namenda) 5 mg PO BID [facility] Last Admin: 04/05/18 09:32 Dose: 5 mg Metoprolol Tartrate (Lopressor) 25 mg PO Q12 [facility] Last Admin: 04/05/18 09:30 Dose: 25 mg Multivitamins/Minerals (Therapeutic-M Tab) 1 tab PO DAILY [facility] Last Admin: 04/05/18 09:32 Dose: 1 tab Oxycodone/Acetaminophen (Percocet 5/325 Mg Tab) 1 tab PO Q4 PRN PRN Reason: Pain, moderate (4-7) Stop: 04/07/18 19:06 Saccharomyces Boulardii (Florastor) 250 mg PO BID [facility] Last Admin: 04/05/18 09:30 Dose: 250 mg Physical Exam - Constitutional Appears: Well, Non-toxic, No Acute Distress - Head Exam Head Exam: ATRAUMATIC, NORMOCEPHALIC - Back Exam Additional comments: B/l Dressing clean, dry and intact. Patient wearing multipodus boots - Neurological Exam Neurological exam: Alert Results - Vital Signs Recent Vital Signs: Last Vital Signs Temp 97 F L 04/05/18 08:28 Pulse 84 04/05/18 09:32 Resp 20 04/05/18 08:28 BP 124/72 04/05/18 09:32 Pulse Ox 97 04/05/18 08:28 Assessment & Plan - Assessment and Plan (Free Text) Assessment: 77 y/o F patient seen at bedside for multiple b/l LE ulcerations. 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 Dr briseno agrees with the plan and has so consistently. Patient is refusing and noncompliant. Patient refuses dressing change today. Patient was educated on the benefits of regular dressing change; however denies. Patient will be followed by podiatry. Thank you for the consult
[2018-04-05] MEDS: Oxycodone/Acetaminophen 5/325 mg Tab PO PRN (23:35)
--- NOTE | 2018-04-06 07:42 | CP.PCM.PN ---
Subjective - Date & Time of Evaluation Date of Evaluation: 04/06/18 Time of Evaluation: 06:50 - Subjective Subjective: General surgery progress note for Dr. King Fontana, PGY-2 Pt S & E at bedside at 0650 Pt resting comfortably in bed. Continues to c/o leg pain. Pt was asked whether she would like surgery for her legs, both at [facility] and again this morning- refused surgery both times. States that she would like to go home. Objective - Vital Signs/Intake and Output Vital Signs (last 24 hours): Temp Pulse Resp BP Pulse Ox 97.3 F L 74 18 126/73 95 04/06/18 00:03 04/06/18 00:03 04/06/18 00:03 04/06/18 00:03 04/06/18 00:03 Intake and Output: 04/06/18 04/06/18 06:59 18:59 Intake Total 75 Output Total 250 Balance -175 - Medications Medications: Current Medications Atorvastatin Calcium (Lipitor) 20 mg PO DAILY [facility] Last Admin: 04/05/18 09:30 Dose: 20 mg Bisacodyl (Dulcolax) 10 mg [place] DAILY PRN PRN Reason: Constipation Docusate Sodium (Colace) 100 mg PO DAILY [facility] Last Admin: 04/05/18 09:30 Dose: 100 mg Enoxaparin Sodium (Lovenox) 60 mg [place] Q12 [facility] PRN Reason: Protocol Last Admin: 04/05/18 22:00 Dose: 60 mg Famotidine (Pepcid) 20 mg PO DAILY [facility] Last Admin: 04/05/18 09:32 Dose: 20 mg Cefepime HCl 1 gm/ Sodium (Chloride) 100 mls @ 200 mls/hr IVPB DAILY [facility] PRN Reason: Protocol Last Admin: 04/05/18 09:31 Dose: 200 mls/hr Vancomycin HCl 1 gm/ Sodium (Chloride) 250 mls @ 166.667 mls/hr IVPB DAILY [facility] PRN Reason: Protocol Last Admin: 04/05/18 16:34 Dose: 166.667 mls/hr Isosorbide Mononitrate (Imdur Er) 30 mg PO DAILY [facility] Last Admin: 04/05/18 09:30 Dose: 30 mg Lisinopril (Zestril) 5 mg PO DAILY [facility] Last Admin: 04/05/18 09:32 Dose: 5 mg Memantine (Namenda) 5 mg PO BID [facility] Last Admin: 04/05/18 16:46 Dose: 5 mg Metoprolol Tartrate (Lopressor) 25 mg PO Q12 [facility] Last Admin: 04/05/18 22:00 Dose: 25 mg Multivitamins/Minerals (Therapeutic-M Tab) 1 tab PO DAILY [facility] Last Admin: 04/05/18 09:32 Dose: 1 tab Oxycodone/Acetaminophen (Percocet 5/325 Mg Tab) 1 tab PO Q4 PRN PRN Reason: Pain, moderate (4-7) Stop: 04/07/18 19:06 Last Admin: 04/05/18 23:35 Dose: 1 tab Saccharomyces Boulardii (Florastor) 250 mg PO BID [facility] Last Admin: 04/05/18 16:46 Dose: 250 mg - Constitutional Appears: Non-toxic, No Acute Distress - Head Exam Head Exam: ATRAUMATIC, NORMAL INSPECTION, NORMOCEPHALIC - Eye Exam Eye Exam: EOMI, Normal appearance - ENT Exam ENT Exam: Mucous Membranes Moist, Normal Exam - Neck Exam Neck Exam: Full ROM, Normal Inspection - Respiratory Exam Respiratory Exam: NORMAL BREATHING PATTERN - Cardiovascular Exam Cardiovascular Exam: REGULAR RHYTHM - GI/Abdominal Exam GI & Abdominal Exam: Soft. absent: Tenderness - Neurological Exam Neurological Exam: Awake. 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
[2018-04-06] MEDS: Saccharomyces Boulardi 250 mg Cap PO SCH ×2 (09:38→16:22)
[2018-04-06] MEDS: Multivitamin With Minerals Tab PO SCH (09:38)
[2018-04-06] MEDS: Enoxaparin 60 mg Syringe SC SCH ×2 (09:39→21:48)
[2018-04-06] MEDS: Cefepime 1 GM in Sodium Chloride 0.9% 100 ML IVPB SCH (09:40)
--- NOTE | 2018-04-06 11:20 | CP.PCM.CON ---
History of Present Illness - History of Present Illness History of Present Illness: THE PATIENT IS A 77 YEAR OLD FEMALE WELL KNOWN TO ME FROM [facility] ADMISSIONS. SHE HAS A HISTORY OF CAD, HYPERTENSION, SEVERE PAD, HYPERLIPIDEMIA , COPD AND TYPE 2 DM. SHE HAD BILATERAL LOWER EXTREMITY ULCERATIONS AND CELLULITIS FOR THE PAST FEW MONTHS. SHE REFUSED A LOWER EXTREMITY ANGIOGRAPHY SEVERAL MONTHS AGO. SHE WAS ADMITTED WITH GANGRENOUS TOES IN 2017 AND UNDERWENT A LOWER EXTREMITY ANGIOGRAPHY AT THAT TIME AT [facility] BY DR PINA AND HAD BILATERAL ILIAC STENTING. SHE WAS READMITTED TO [facility] RECENTLY FOR PAIN WITH INABILITY TO WALK FOR THE SAME PROBLEM AND HAD A LOWER EXTREMITY ANGIOGRAPHY AGAIN LAST WEEK AT [facility] THAT SHOWED A COMMON FEMORAL OCCLUSION. VASCULAR SURGERY WAS CALLED AND BILATERAL LE AMPUTATIONS WERE RECOMMENDED AND SHE REFUSED AND WAS MADE A DNR BY HER NEPHEW AND SHE WAS TRANSFERRED BACK TO [facility]. SHE TOLD ME THIS MORNING THAT SHE DOESN'T WANT SURGERY AND WANTS TO GO HOME, BUT SHE HAS TOLD OTHER DOCTORS THAT SHE MIGHT AGREE TO SURGERY. Past Patient History - Infectious Disease Hx of Infectious Diseases: None - Past Medical History & Family History Past Medical History?: Yes - Past Social History Smoking Status: Former Smoker - CARDIAC Hx Cardiac Disorders: Yes (CAD) Hx Congestive Heart Failure: Yes Hx Hypercholesterolemia: Yes Hx Hypertension: Yes Hx Peripheral Edema: Yes Hx Peripheral Vascular Disease: Yes - PULMONARY Hx Chronic Obstructive Pulmonary Disease (COPD): Yes - NEUROLOGICAL Hx Neurological Disorder: Yes Hx Dementia: Yes Other/Comment: Paresthesias of both feet - HEENT Hx HEENT Problems: No - RENAL Hx Chronic Kidney Disease: No Hx Kidney Stones: Yes - ENDOCRINE/METABOLIC Hx Diabetes Mellitus Type 2: Yes - HEMATOLOGICAL/ONCOLOGICAL Hx Blood Disorders: Yes Hx Anemia: Yes - INTEGUMENTARY Hx Dermatological Problems: Yes Hx Cellulitis: Yes - MUSCULOSKELETAL/RHEUMATOLOGICAL Hx Falls: Yes - GASTROINTESTINAL Hx Gastrointestinal Disorders: No - GENITOURINARY/GYNECOLOGICAL Hx Genitourinary Disorders: No - PSYCHIATRIC Hx Substance Use: No - SURGICAL HISTORY Hx Surgeries: Yes Hx Angiogram: Yes Hx Appendectomy: Yes Other/Comment: kidney stone removal - ANESTHESIA Hx Anesthesia: Yes Hx Anesthesia Reactions: No Hx Malignant Hyperthermia: No Meds Allergies/Adverse Reactions: Allergies Allergy/AdvReac Type Severity Reaction Status Date / Time No Known Allergies Allergy Verified 03/20/18 12:54 - Medications Medications: Current Medications Atorvastatin Calcium (Lipitor) 20 mg PO DAILY [facility] Last Admin: 04/06/18 09:38 Dose: 20 mg Bisacodyl (Dulcolax) 10 mg [place] DAILY PRN PRN Reason: Constipation Docusate Sodium (Colace) 100 mg PO DAILY [facility] Last Admin: 04/06/18 09:38 Dose: 100 mg Enoxaparin Sodium (Lovenox) 60 mg [place] Q12 [facility] PRN Reason: Protocol Last Admin: 04/06/18 09:39 Dose: 60 mg Famotidine (Pepcid) 20 mg PO DAILY [facility] Last Admin: 04/06/18 09:39 Dose: 20 mg Cefepime HCl 1 gm/ Sodium (Chloride) 100 mls @ 200 mls/hr IVPB DAILY [facility] PRN Reason: Protocol Last Admin: 04/06/18 09:40 Dose: 200 mls/hr Vancomycin HCl 1 gm/ Sodium (Chloride) 250 mls @ 166.667 mls/hr IVPB DAILY@ 1300 [facility] PRN Reason: Protocol Isosorbide Mononitrate (Imdur Er) 30 mg PO DAILY [facility] Last Admin: 04/06/18 09:38 Dose: 30 mg Lisinopril (Zestril) 5 mg PO DAILY [facility] Last Admin: 04/06/18 09:39 Dose: 5 mg Memantine (Namenda) 5 mg PO BID [facility] Last Admin: 04/06/18 09:39 Dose: 5 mg Metoprolol Tartrate (Lopressor) 25 mg PO Q12 [facility] Last Admin: 04/06/18 09:38 Dose: 25 mg Multivitamins/Minerals (Therapeutic-M Tab) 1 tab PO DAILY [facility] Last Admin: 04/06/18 09:38 Dose: 1 tab Oxycodone/Acetaminophen (Percocet 5/325 Mg Tab) 1 tab PO Q4 PRN PRN Reason: Pain, moderate (4-7) Stop: 04/07/18 19:06 Last Admin: 04/05/18 23:35 Dose: 1 tab Saccharomyces Boulardii (Florastor) 250 mg PO BID [facility] Last Admin: 04/06/18 09:38 Dose: 250 mg Physical Exam - Respiratory Exam Respiratory Exam: Decreased Breath Sounds - Cardiovascular Exam Cardiovascular Exam: REGULAR RHYTHM, +S1, +S2 - Extremities Exam Additional comments: GANGRENOUS/NECROTIC TOES BILAT ULCERATIONS OF BOTH LE - Additional Findings Additional findings: RECENT EKGS WITH SINUS RHYTHM, NON-SPECIFIC ST-T CHANGES Results - Vital Signs Recent Vital Signs: Last Vital Signs Temp 96.8 F L 04/06/18 08:21 Pulse 76 04/06/18 09:39 Resp 20 04/06/18 08:21 BP 119/67 04/06/18 09:39 Pulse Ox 94 L 04/06/18 08:21 Assessment & Plan - Assessment and Plan (Free Text) Assessment: SEVERE LE PAD WITH GANGRENOUS/NECROTIC TOES BILAT CAD HYPERTENSION HYPERLIPIDEMIA COPD TYPE 2 DM Plan: CONTINUE IV ANTIBIOTICS, METOPROLOL, LISINOPRIL, IMDUR, ATORVASTATIN AND LOVENOX ASPIRIN AND CLOPIDOGREL SHOULD BE RESUMED IF FINAL DECISION IS MADE THAT THE PATIENT WILL NOT HAVE SURGERY
--- NOTE | 2018-04-06 11:45 | CP.PCM.CON ---
History of Present Illness - History of Present Illness History of Present Illness: 77 yo F with history diabetes, chf, anemia was recently seen at for gangrene lowerer extrem bilat Frannie done revealed bilat fem occlusion needs AKA x 2 which she refuses empiric IV rtx in progress to prevent bacterial sepsis pending surgery Review of Systems - Review of Systems All systems: reviewed and no additional remarkable complaints except - Constitutional Constitutional: As Per HPI - EENT Eyes: absent: As Per HPI, Blind Spots, Blurred Vision, Change in Vision, Decreased Night Vision, Diplopia, Discharge, Dry Eye, Exophthalmos, Floaters, Irritation, Itchy Eyes, Loss of Peripheral Vision, Pain, Photophobia, Requires Corrective Lenses, Sees Flashes, Spots in Vision, Tunnel Vision, Other Visual Disturbances, Loss of Vision, Other Ears: absent: As Per HPI, Decreased Hearing, Ear Discharge, Ear Pain, Tinnitus, Abnormal Hearing, Disequilibrium, Dizziness, Other Nose/Mouth/Throat: absent: As Per HPI, Epistaxis, Nasal Congestion, Nasal Discharge, Nasal Obstruction, Nasal Trauma, Nose Pain, Post Nasal Drip, Sinus Pain, Sinus Pressure, Bleeding Gums, Change in Voice, Dental Pain, Dry Mouth, Dysphagia, Halitosis, Hoarsness, Lip Swelling, Mouth Lesions, Mouth Pain, Odynophagia, Sore Throat, Throat Swelling, Tongue Swelling, Facial Pain, Neck Pain, Neck Mass, Other - Cardiovascular Cardiovascular: absent: As Per HPI, Acrocyanosis, Chest Pain, Chest Pain at Rest , Chest Pain with Activity, Claudication, Diaphoresis, Dyspnea, Dyspnea on Exertion, Edema, Irregular Heart Rhythm, Pain Radiating to Arm/Neck/Jaw, Leg Edema, Leg Ulcers, Lightheadedness, Orthopnea, Palpitations, Paroxysmal Nocturnal Dyspnea, Pedal Edema, Radiating Pain, Rapid Heart Rate, Slow Heart Rate, Syncope, Other - Respiratory Respiratory: absent: As Per HPI, Cough, Dyspnea, Hemoptysis, Dyspnea on Exertion , Wheezing, Snoring, Stridor, Pain on Inspiration, Chest Congestion, Excessive Mucous Production, Change in Mucous Color, Pain with Coughing, Other - Gastrointestinal Gastrointestinal: absent: As Per HPI, Abdominal Pain, Belching, Bloating, Change in Bowel Habits, Change in Stool Character, Coffee Ground Emesis, Constipation, Cramping, Diarrhea, Dyspepsia, Dysphagia, Early Satiety, Excessive Flatus, Fecal Incontinence, Heartburn, Hematemesis, Hematochezia, Loose Stools, Melena, Nausea, Odynophagia, Temesmus, Vomiting, Other - Genitourinary Genitourinary: absent: As Per HPI, Change in Urinary Stream, Difficulty Urinating, Dysuria, Flank Pain, Hematuria, Pyuria, Nocturia, Urinary Incontinence, Urinary Frequency, Urinary Hesitance, Urinary Urgency, Voiding Freq/Small Amts, Freq UTI, Hx Renal/Bladder Calculi, Hx /Renal Surgery, Bladder Distension, Other - Reproductive: Female Reproductive:Female: absent: As Per HPI, Amenorrhea, Amenorrhea/ Control, Currently Menstual, Cycle <21 Days, Cycle >35 Days, Cycle Variable, Menses 1-7 Days, Menses >/= 8 Days, Menses Variable, Cycle > 4 Weeks Between, No Menses for 6 Months, Heavy Menses, Light Menses, Normal Menses, Spotting Between Cycles , S/P Hysterectomy, Menopausal, Post Menopausal, Premenarche, Abnormal Vaginal Bleeding, Dysmenorrhea, Dyspareunia, Genital Lesions, Genital Pruritis, Pelvic Pain, Prolapse Symptoms, Sexual Dysfunction, Vaginal Discharge, Vaginal Dryness , Vaginal Odor, Vaginal Pruritis, Other - Menstruation Menstruation: absent: As Per HPI, Amenorrhea, Amenorrhea/ Control, Currently Menstual, Cycle <21 Days, Cycle >35 Days, Cycle Variable, Menses 1-7 Days, Menses >/= 8 Days, Menses Variable, Cycle > 4 Weeks Between, No Menses for 6 Months, Heavy Menses, Light Menses, Normal Menses, Spotting Between Cycles , S/P Hysterectomy, Menopausal, Post Menopausal, Premenarche, Abnormal Vaginal Bleeding, Dysmenorrhea, Other - Musculoskeletal Musculoskeletal: As Per HPI - Integumentary Integumentary: As Per HPI, Skin Pain, Wounds - Neurological Neurological: As Per HPI - Psychiatric Psychiatric: As Per HPI, Hallucinations - Endocrine Endocrine: absent: As Per HPI, Change in Body Appearance, Change in Libido, Cold Intolorance, Deepening of Voice, Excessive Sweating, Fatigue, Flushing, Heat Intolorance, Increase in Ring/Shoe/Hat Size, Palpitations, Polydipsia, Polyphagia, Polyuria, Other - Hematologic/Lymphatic Hematologic: absent: As Per HPI, Easy Bleeding, Easy Bruising, Lymphadenopathy, Other Past Patient History - Infectious Disease Hx of Infectious Diseases: None - Past Medical History & Family History Past Medical History?: Yes - Past Social History Smoking Status: Former Smoker - CARDIAC Hx Cardiac Disorders: Yes (CAD) Hx Congestive Heart Failure: Yes Hx Hypercholesterolemia: Yes Hx Hypertension: Yes Hx Peripheral Edema: Yes Hx Peripheral Vascular Disease: Yes - PULMONARY Hx Chronic Obstructive Pulmonary Disease (COPD): Yes - NEUROLOGICAL Hx Neurological Disorder: Yes Hx Dementia: Yes Other/Comment: Paresthesias of both feet - HEENT Hx HEENT Problems: No - RENAL Hx Chronic Kidney Disease: No Hx Kidney Stones: Yes - ENDOCRINE/METABOLIC Hx Diabetes Mellitus Type 2: Yes - HEMATOLOGICAL/ONCOLOGICAL Hx Blood Disorders: Yes Hx Anemia: Yes - INTEGUMENTARY Hx Dermatological Problems: Yes Hx Cellulitis: Yes - MUSCULOSKELETAL/RHEUMATOLOGICAL Hx Falls: Yes - GASTROINTESTINAL Hx Gastrointestinal Disorders: No - GENITOURINARY/GYNECOLOGICAL Hx Genitourinary Disorders: No - PSYCHIATRIC Hx Substance Use: No - SURGICAL HISTORY Hx Surgeries: Yes Hx Angiogram: Yes Hx Appendectomy: Yes Other/Comment: kidney stone removal - ANESTHESIA Hx Anesthesia: Yes Hx Anesthesia Reactions: No Hx Malignant Hyperthermia: No Meds Allergies/Adverse Reactions: Allergies Allergy/AdvReac Type Severity Reaction Status Date / Time No Known Allergies Allergy Verified 03/20/18 12:54 - Medications Medications: Current Medications Atorvastatin Calcium (Lipitor) 20 mg PO DAILY [facility] Last Admin: 04/06/18 09:38 Dose: 20 mg Bisacodyl (Dulcolax) 10 mg [place] DAILY PRN PRN Reason: Constipation Docusate Sodium (Colace) 100 mg PO DAILY [facility] Last Admin: 04/06/18 09:38 Dose: 100 mg Enoxaparin Sodium (Lovenox) 60 mg SC Q12 [facility] PRN Reason: Protocol Last Admin: 04/06/18 09:39 Dose: 60 mg Famotidine (Pepcid) 20 mg PO DAILY [facility] Last Admin: 04/06/18 09:39 Dose: 20 mg Cefepime HCl 1 gm/ Sodium (Chloride) 100 mls @ 200 mls/hr IVPB DAILY [facility] PRN Reason: Protocol Last Admin: 04/06/18 09:40 Dose: 200 mls/hr Vancomycin HCl 1 gm/ Sodium (Chloride) 250 mls @ 166.667 mls/hr IVPB DAILY@ 1300 [facility] PRN Reason: Protocol Isosorbide Mononitrate (Imdur Er) 30 mg PO DAILY [facility] Last Admin: 04/06/18 09:38 Dose: 30 mg Lisinopril (Zestril) 5 mg PO DAILY [facility] Last Admin: 04/06/18 09:39 Dose: 5 mg Memantine (Namenda) 5 mg PO BID [facility] Last Admin: 04/06/18 09:39 Dose: 5 mg Metoprolol Tartrate (Lopressor) 25 mg PO Q12 [facility] Last Admin: 04/06/18 09:38 Dose: 25 mg Multivitamins/Minerals (Therapeutic-M Tab) 1 tab PO DAILY [facility] Last Admin: 04/06/18 09:38 Dose: 1 tab Oxycodone/Acetaminophen (Percocet 5/325 Mg Tab) 1 tab PO Q4 PRN PRN Reason: Pain, moderate (4-7) Stop: 04/07/18 19:06 Last Admin: 04/05/18 23:35 Dose: 1 tab Saccharomyces Boulardii (Florastor) 250 mg PO BID [facility] Last Admin: 04/06/18 09:38 Dose: 250 mg Physical Exam - Constitutional Appears: Confused, Cachectic, Chronically Ill - Head Exam Head Exam: ATRAUMATIC, NORMOCEPHALIC - Eye Exam Eye Exam: PERRL. absent: Scleral icterus - ENT Exam ENT Exam: Mucous Membranes Dry - Neck Exam Neck exam: Negative for: Lymphadenopathy - Respiratory Exam Respiratory Exam: Decreased Breath Sounds, Clear to Auscultation Bilateral - Cardiovascular Exam Cardiovascular Exam: REGULAR RHYTHM, +S1, +S2 - GI/Abdominal Exam GI & Abdominal Exam: Diminished Bowel Sounds, Soft. absent: Tenderness - Rectal Exam Rectal Exam: Deferred - Exam Exam: NORMAL INSPECTION - Extremities Exam Extremities exam: Positive for: tenderness. Negative for: calf tenderness, pedal edema, pedal pulses present Additional comments: gangrene of digits bilat leg ulcers severe foul smelling stage III - Back Exam Back exam: absent: CVA tenderness (L), CVA tenderness (R) - Neurological Exam Neurological exam: Alert, Altered, CN II-XII Intact - Psychiatric Exam Psychiatric exam: Depressed - Skin Skin Exam: Dry Results - Vital Signs Recent Vital Signs: Last Vital Signs Temp 96.8 F L 04/06/18 08:21 Pulse 76 08/12/18 09:39 Resp 20 04/06/18 08:21 BP 119/67 04/06/18 09:39 Pulse Ox 94 L 04/06/18 08:21 Assessment & Plan - Assessment and Plan (Free Text) Assessment: cont IVC rx for bilat gangrene pending surgery
--- NOTE | 2018-04-06 12:31 | CP.PCM.PN ---
Subjective - Date & Time of Evaluation Date of Evaluation: 04/06/18 Time of Evaluation: 22:22 - Subjective Subjective: Above noted Objective - Vital Signs/Intake and Output Vital Signs (last 24 hours): Temp Pulse Resp BP Pulse Ox 96.8 F L 76 20 119/67 94 L 04/06/18 08:21 04/06/18 09:39 04/06/18 08:21 04/06/18 09:39 04/06/18 08:21 Intake and Output: 04/06/18 04/06/18 06:59 18:59 Intake Total 75 Output Total 250 Balance -175 - Medications Medications: Current Medications Atorvastatin Calcium (Lipitor) 20 mg PO DAILY [facility] Last Admin: 04/06/18 09:38 Dose: 20 mg Bisacodyl (Dulcolax) 10 mg [place] DAILY PRN PRN Reason: Constipation Docusate Sodium (Colace) 100 mg PO DAILY [facility] Last Admin: 04/06/18 09:38 Dose: 100 mg Enoxaparin Sodium (Lovenox) 60 mg SC Q12 [facility] PRN Reason: Protocol Last Admin: 04/06/18 09:39 Dose: 60 mg Famotidine (Pepcid) 20 mg PO DAILY [facility] Last Admin: 04/06/18 09:39 Dose: 20 mg Cefepime HCl 1 gm/ Sodium (Chloride) 100 mls @ 200 mls/hr IVPB DAILY [facility] PRN Reason: Protocol Last Admin: 04/06/18 09:40 Dose: 200 mls/hr Vancomycin HCl 1 gm/ Sodium (Chloride) 250 mls @ 166.667 mls/hr IVPB DAILY@ 1300 [facility] PRN Reason: Protocol Isosorbide Mononitrate (Imdur Er) 30 mg PO DAILY [facility] Last Admin: 04/06/18 09:38 Dose: 30 mg Lisinopril (Zestril) 5 mg PO DAILY [facility] Last Admin: 04/06/18 09:39 Dose: 5 mg Memantine (Namenda) 5 mg PO BID [facility] Last Admin: 04/06/18 09:39 Dose: 5 mg Metoprolol Tartrate (Lopressor) 25 mg PO Q12 [facility] Last Admin: 04/06/18 09:38 Dose: 25 mg Multivitamins/Minerals (Therapeutic-M Tab) 1 tab PO DAILY [facility] Last Admin: 08/12/18 09:38 Dose: 1 tab Oxycodone/Acetaminophen (Percocet 5/325 Mg Tab) 1 tab PO Q4 PRN PRN Reason: Pain, moderate (4-7) Stop: 04/07/18 19:06 Last Admin: 04/05/18 23:35 Dose: 1 tab Saccharomyces Boulardii (Florastor) 250 mg PO BID [facility] Last Admin: 04/06/18 09:38 Dose: 250 mg - Respiratory Exam Respiratory Exam: NORMAL BREATHING PATTERN - Cardiovascular Exam Cardiovascular Exam: Tachycardia - GI/Abdominal Exam GI & Abdominal Exam: Normal Bowel Sounds Assessment and Plan - Assessment and Plan (Free Text) Assessment: PVD S/P Angioplasty Iliac A.Stents S/P Angiogram [employer] occlusion Low ext edema cellulitis gangrene Local wound care IV ABX DAPT Lovenox ID Podiatry Surgery Physiatry Cardiology (Inv) Surgery AKA ??? Altered mental status?? Decision making capacity?? Toxic metabolic encephalopathy Adj disorder Depression Psychiatry Psychology Neurolgy SSRI D/C Tramadol ABBEY/ CKD IVF Nephrology US Kidney WNl Hx CHF Diastolic CAD stress thalium scarring ischemia?? Cardiology Hx COPD L Pleural effusion Pulmonary Hx Anemia Chronic dx NIDDM Thyroid dx
--- NOTE | 2018-04-06 13:41 | RAD ---
Date of service: 04/06/2018 HISTORY: pleural effusion COMPARISON: Chest radiograph dated 03/21/2017. FINDINGS: LUNGS: Pulmonary vascular congestion with small bilateral pleural effusions. Questionable right lower lobe infiltrate. PLEURA: No significant pleural effusion identified, no pneumothorax apparent. CARDIOVASCULAR: Atherosclerotic aortic calcific disease cardiomediastinal silhouette stably enlarged. Heavy mitral annular calcification. OSSEOUS STRUCTURES: Unchanged. VISUALIZED UPPER ABDOMEN: Normal. OTHER FINDINGS: None. IMPRESSION: Pulmonary vascular congestion with small bilateral pleural effusions. Questionable right lower lobe infiltrate.
--- NOTE | 2018-04-06 14:49 | CP.PCM.PN ---
Subjective - Date & Time of Evaluation Date of Evaluation: 04/06/18 Time of Evaluation: 14:43 - Subjective Subjective: Podiatry progress note for Dr. Briseno, 77 year old female patient seen and evaluated for bilateral extensive nectrotic lower extremity ulcerations. Patient is lethargic and resting in bed. She is in moderate pain to b/l lower extremities. Denies N/V/F/SOB/CP. Objective - Vital Signs/Intake and Output Vital Signs (last 24 hours): Temp Pulse Resp BP Pulse Ox 96.8 F L 76 20 119/67 94 L 04/06/18 08:21 04/06/18 09:39 04/06/18 08:21 04/06/18 09:39 04/06/18 08:21 Intake and Output: 04/06/18 04/06/18 06:59 18:59 Intake Total 75 Output Total 250 Balance -175 - Medications Medications: Current Medications Atorvastatin Calcium (Lipitor) 20 mg PO DAILY [facility] Last Admin: 04/06/18 09:38 Dose: 20 mg Bisacodyl (Dulcolax) 10 mg [place] DAILY PRN PRN Reason: Constipation Docusate Sodium (Colace) 100 mg PO DAILY [facility] Last Admin: 04/06/18 09:38 Dose: 100 mg Enoxaparin Sodium (Lovenox) 60 mg SC Q12 [facility] PRN Reason: Protocol Last Admin: 04/06/18 09:39 Dose: 60 mg Famotidine (Pepcid) 20 mg PO DAILY [facility] Last Admin: 04/06/18 09:39 Dose: 20 mg Cefepime HCl 1 gm/ Sodium (Chloride) 100 mls @ 200 mls/hr IVPB DAILY [facility] PRN Reason: Protocol Last Admin: 04/06/18 09:40 Dose: 200 mls/hr Vancomycin HCl 1 gm/ Sodium (Chloride) 250 mls @ 166.667 mls/hr IVPB DAILY@ 1300 [facility] PRN Reason: Protocol Last Admin: 04/06/18 13:23 Dose: Not Given Isosorbide Mononitrate (Imdur Er) 30 mg PO DAILY [facility] Last Admin: 04/06/18 09:38 Dose: 30 mg Lisinopril (Zestril) 5 mg PO DAILY [facility] Last Admin: 04/06/18 09:39 Dose: 5 mg Memantine (Namenda) 5 mg PO BID [facility] Last Admin: 04/06/18 09:39 Dose: 5 mg Metoprolol Tartrate (Lopressor) 25 mg PO Q12 [facility] Last Admin: 04/06/18 09:38 Dose: 25 mg Multivitamins/Minerals (Therapeutic-M Tab) 1 tab PO DAILY [facility] Last Admin: 04/06/18 09:38 Dose: 1 tab Oxycodone/Acetaminophen (Percocet 5/325 Mg Tab) 1 tab PO Q4 PRN PRN Reason: Pain, moderate (4-7) Stop: 04/07/18 19:06 Last Admin: 04/05/18 23:35 Dose: 1 tab Saccharomyces Boulardii (Florastor) 250 mg PO BID [facility] Last Admin: 04/06/18 09:38 Dose: 250 mg - Constitutional Appears: Well, Non-toxic, No Acute Distress - Head Exam Head Exam: ATRAUMATIC, NORMOCEPHALIC - Extremities Exam Additional comments: Vasc: DP/PT pulses non-palpable, Temp gradient cool to cool, Cap refill delayed to digits/not attainable due to necrosis of 2-5 on right foot Ortho: Bilateral lower extremities painful upon palpation Neuro: Gross sensation intact and protective sensation diminished bilaterally Derm: Multiple ulcerations noted to the entire lower extremity with mixture of fibrotic/necrotic wound base: Erythema to the entire lower extremity with R>L, significantly malodorous, all sites (-) for purulence, probe to bone, tunneling or undermining. RIGHT: 1) Necrotic right heel eschar unstagable with no drainage noted measuring 9.0 cm X 7.0 cm 2) Circumferential ulceration to the medial posterior aspect measuring 21 cm in length, fibrotic edges, peroneal tendon exposed, drainage noted 3) necrotic 2nd and 3rd digits till the level of the MPTJ, dorsally necrotic 4th digit t the level of the MTPJ 4) fibro/necrotic ulceration to the dorsal aspect of the hallux at the PIPJ measuring 3.0 cmX 2.5 cm 5) fibro/necrotic ulceration to the dorsal forefoot measuring 2.5 cm X 1.8 cm 6) fibro/necrotic ulceration noted to the medial ankle distal to the medial malleolus measuring 4. 0 X 2.0 cm, + fluctuance noted 7) fibro/necrotic ulceration to the anterior tibial tuberosity measuring 3.0 X 1.0 cm 8) circular ulceration noted to the medial aspect of the leg at the level of the tibial tuberosity measuring 2.4 cm X 2.6 cm x1.5 with 80% graular and 20% fibrotic bases, surrounding erythema 9) multiple stable eschars to the knee 10) New wound noted to the right hallux with minimal bleeding LEFT: 1) echar to the heel, necrotic, measuring 5.0 cm X 6.0 cm 2) fibro/necrotic ulceration to the dorsal aspect of the foot, with fibrotic edges, positive drainage, dusky appearance extending proximally and beginning to demarcate 3) fibro/necrotic ulceration to the medial aspect of the leg measuring 5.0 c, X 3.0 cm 4) gangranous changes to the tip of the hallux, and to the dorsum of the 2nd digit, dusky appearance to hallux 5) multipe eschars to the tibial tuberosity, stable in nature - Neurological Exam Neurological Exam: Alert, Awake Assessment and Plan - Assessment and Plan (Free Text) Assessment: 77 year old female patient seen and evaluated at bedside for bilateral extensive necrotic lower extremity ulcerations. Plan: Patient seen and evaluated at bedside Discussed in detail with Dr. Briseno Patient chart, labs and vitals reviewed: Afebrile Continue IV abx per ID reccs, Vancomycin (03/20)X-ray foot bilaterally: No signs of acute osseous changes. (03/20)Proximal tib-fibula X-ray: multiple deep ulcers, no evidence of osteomyelitis. Bilateral wound culture 03/20/18: E. Coli (Final) B/L lower extremity ulcerations evaluated, will continue to monitor lesions and their progression; Dressing changed to bilateral lower extremities with Adaptic , ABD, and DSD Patient to wear multipodus boots at all times. Pinains ordered. Podiatry will continue to follow while patient is in house
[2018-04-06] MEDS: Oxycodone/Acetaminophen 5/325 mg Tab PO PRN (15:14)
--- NOTE | 2018-04-07 06:02 | CP.PCM.PN ---
Subjective - Date & Time of Evaluation Date of Evaluation: 04/07/18 Time of Evaluation: 05:59 - Subjective Subjective: Podiatry progress note for Dr. Briseno, 77 year old female patient seen and evaluated for bilateral extensive nectrotic lower extremity ulcerations. Patient is lethargic and resting in bed. She is in moderate pain to b/l lower extremities. Patient denies dressing change this morning and repeatedly states she wants to go home. Denies N/V/F/SOB/CP. Objective - Vital Signs/Intake and Output Vital Signs (last 24 hours): Temp Pulse Resp BP Pulse Ox 97.6 F 88 18 132/69 96 04/06/18 23:47 04/06/18 23:47 04/06/18 23:47 04/06/18 23:47 04/06/18 23:47 Intake and Output: 04/06/18 04/07/18 18:59 06:59 Intake Total 75 Output Total 250 Balance -175 - Medications Medications: Current Medications Atorvastatin Calcium (Lipitor) 20 mg PO DAILY [facility] Last Admin: 04/06/18 09:38 Dose: 20 mg Bisacodyl (Dulcolax) 10 mg [place] DAILY PRN PRN Reason: Constipation Docusate Sodium (Colace) 100 mg PO DAILY [facility] Last Admin: 04/06/18 09:38 Dose: 100 mg Enoxaparin Sodium (Lovenox) 60 mg SC Q12 [facility] PRN Reason: Protocol Last Admin: 04/06/18 21:48 Dose: 60 mg Famotidine (Pepcid) 20 mg PO DAILY [facility] Last Admin: 04/06/18 09:39 Dose: 20 mg Cefepime HCl 1 gm/ Sodium (Chloride) 100 mls @ 200 mls/hr IVPB DAILY [facility] PRN Reason: Protocol Last Admin: 04/06/18 09:40 Dose: 200 mls/hr Vancomycin HCl 1 gm/ Sodium (Chloride) 250 mls @ 166.667 mls/hr IVPB DAILY@ 1300 [facility] PRN Reason: Protocol Last Admin: 04/06/18 13:23 Dose: Not Given Isosorbide Mononitrate (Imdur Er) 30 mg PO DAILY [facility] Last Admin: 04/06/18 09:38 Dose: 30 mg Lisinopril (Zestril) 5 mg PO DAILY [facility] Last Admin: 04/06/18 09:39 Dose: 5 mg Memantine (Namenda) 5 mg PO BID [facility] Last Admin: 04/06/18 16:22 Dose: 5 mg Metoprolol Tartrate (Lopressor) 25 mg PO Q12 [facility] Last Admin: 04/06/18 21:48 Dose: 25 mg Multivitamins/Minerals (Therapeutic-M Tab) 1 tab PO DAILY [facility] Last Admin: 04/06/18 09:38 Dose: 1 tab Oxycodone/Acetaminophen (Percocet 5/325 Mg Tab) 1 tab PO Q4 PRN PRN Reason: Pain, moderate (4-7) Stop: 04/07/18 19:06 Last Admin: 04/06/18 15:14 Dose: 1 tab Saccharomyces Boulardii (Florastor) 250 mg PO BID [facility] Last Admin: 04/06/18 16:22 Dose: 250 mg Sodium Hypochlorite (Dakins Solution 0.125%) 0 appl TOP DAILY [facility] - Constitutional Appears: Well, Non-toxic, No Acute Distress - Head Exam Head Exam: ATRAUMATIC, NORMOCEPHALIC - Extremities Exam Additional comments: Dressing to bilateral extremities clean, dry, and intact- bilateral lower extremity seen to be in mulitpodus boots - Neurological Exam Neurological Exam: absent: Alert, Awake, Oriented x3 Assessment and Plan - Assessment and Plan (Free Text) Assessment: 77 year old female patient seen and evaluated at bedside for bilateral extensive necrotic lower extremity ulcerations secondary to DM and PVD. Plan: Patient seen and evaluated at bedside Discussed in detail with Dr. Briseno Patient chart, labs and vitals reviewed: Afebrile Continue IV abx per ID reccs, Vancomycin (03/20)X-ray foot bilaterally: No signs of acute osseous changes. (03/20)Proximal tib-fibula X-ray: multiple deep ulcers, no evidence of osteomyelitis. Bilateral wound culture 03/20/18: E. Coli (Final) Patient refuses dressing change this morning Patient to wear multipodus boots at all times. Podiatry will continue to follow while patient is in house
--- NOTE | 2018-04-07 09:01 | CP.PCM.PN ---
Subjective - Date & Time of Evaluation Date of Evaluation: 04/07/18 Time of Evaluation: 07:30 - Subjective Subjective: NO CHEST PAIN OR SOB SOMEWHAT CONFUSED Objective - Vital Signs/Intake and Output Vital Signs (last 24 hours): Temp Pulse Resp BP Pulse Ox 97.9 F 74 20 97/64 L 95 04/07/18 07:59 04/07/18 07:59 04/07/18 07:59 04/07/18 07:59 04/07/18 07:59 Intake and Output: 04/07/18 04/07/18 06:59 18:59 Output Total 250 Balance -250 - Medications Medications: Current Medications Atorvastatin Calcium (Lipitor) 20 mg PO DAILY [facility] Last Admin: 04/06/18 09:38 Dose: 20 mg Bisacodyl (Dulcolax) 10 mg [place] DAILY PRN PRN Reason: Constipation Docusate Sodium (Colace) 100 mg PO DAILY [facility] Last Admin: 04/06/18 09:38 Dose: 100 mg Enoxaparin Sodium (Lovenox) 60 mg SC Q12 [facility] PRN Reason: Protocol Last Admin: 04/06/18 21:48 Dose: 60 mg Famotidine (Pepcid) 20 mg PO DAILY [facility] Last Admin: 04/06/18 09:39 Dose: 20 mg Cefepime HCl 1 gm/ Sodium (Chloride) 100 mls @ 200 mls/hr IVPB DAILY [facility] PRN Reason: Protocol Last Admin: 04/06/18 09:40 Dose: 200 mls/hr Vancomycin HCl 1 gm/ Sodium (Chloride) 250 mls @ 166.667 mls/hr IVPB DAILY@ 1300 [facility] PRN Reason: Protocol Last Admin: 04/06/18 13:23 Dose: Not Given Isosorbide Mononitrate (Imdur Er) 30 mg PO DAILY [facility] Last Admin: 04/06/18 09:38 Dose: 30 mg Lisinopril (Zestril) 5 mg PO DAILY [facility] Last Admin: 04/06/18 09:39 Dose: 5 mg Memantine (Namenda) 5 mg PO BID [facility] Last Admin: 04/06/18 16:22 Dose: 5 mg Metoprolol Tartrate (Lopressor) 25 mg PO Q12 [facility] Last Admin: 04/06/18 21:48 Dose: 25 mg Multivitamins/Minerals (Therapeutic-M Tab) 1 tab PO DAILY [facility] Last Admin: 04/06/18 09:38 Dose: 1 tab Oxycodone/Acetaminophen (Percocet 5/325 Mg Tab) 1 tab PO Q4 PRN PRN Reason: Pain, moderate (4-7) Stop: 04/07/18 19:06 Last Admin: 04/06/18 15:14 Dose: 1 tab Saccharomyces Boulardii (Florastor) 250 mg PO BID [facility] Last Admin: 04/06/18 16:22 Dose: 250 mg Sodium Hypochlorite (Dakins Solution 0.125%) 0 appl TOP DAILY [facility] - Respiratory Exam Respiratory Exam: Decreased Breath Sounds - Cardiovascular Exam Cardiovascular Exam: REGULAR RHYTHM, +S1, +S2 - Extremities Exam Additional comments: LEG ULCERS AND GANGRENOUS TOES Assessment and Plan - Assessment and Plan (Free Text) Assessment: CAD SEVERE PAD HYPERTENSION COPD Plan: PATIENT WANTS TO GO HOME PSYCHIATRY TO SEE REGARDING CAPACITY TO MAKE DECISIONS
[2018-04-07] MEDS: Saccharomyces Boulardi 250 mg Cap PO SCH ×2 (09:14→16:20)
[2018-04-07] MEDS: Cefepime 1 GM in Sodium Chloride 0.9% 100 ML IVPB SCH (09:15)
[2018-04-07] MEDS: Enoxaparin 60 mg Syringe SC SCH ×2 (09:15→22:26)
[2018-04-07] MEDS: Multivitamin With Minerals Tab PO SCH (09:16)
[2018-04-07] MEDS: Oxycodone/Acetaminophen 5/325 mg Tab PO PRN (09:29)
--- NOTE | 2018-04-07 10:27 | CP.PCM.CON ---
History of Present Illness - History of Present Illness History of Present Illness: Psychiatry consult History obtained from chart as patient unable to engage appropriately in interview. Patient was sleepy during exam and did not answer most questions, just looked blankly at the narrative writer. She did answer yes to feeling depressed, but was not able to state the date or location. She was not able to say why she is in the hospital or what her current medical conditions are. As per record: 77 yo F w/ pmh of COPD, DM, CAD, CHF, Anemia, PAD with non-healing b/l lower extremity wounds and dry gangrene of the toes. She was at [facility] for a period of time and transfered to [facility] where she underwent angiogram with Dr. Damon on 04/01. 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 Pt was seen by vascular surgery while at [facility] and offered B/L AKA, however patient refused any surgical intervention. Pt currently complaining of pain in the lower extremities b/l and states that she wants to go home. She denies any fevers/chills, sob or chest pain. PMH: COPD, DM, CAD, CHF, Chronic anemia and PVD PSH:appendectomy, Angioplasty w b/l illiac stents (02/12/18) NKDA Impression: 77 yo female w/ several medical issues, w/ acute AMS, not able to engage appropriately in psychiatric interview or understand her current medical issues. -Patient does not have capacity to make medical decisions at this time -Would not recommend to start antidepressants until patient's mental status improves -Recommend psychology consult to evaluate neurocognitive function Past Patient History - Infectious Disease Hx of Infectious Diseases: None - Past Medical History & Family History Past Medical History?: Yes - Past Social History Smoking Status: Former Smoker Chewing Tobacco Use: No Cigar Use: No Alcohol: None Drugs: Denies Home Situation {Lives}: Alone - CARDIAC Hx Cardiac Disorders: Yes (CAD) Hx Congestive Heart Failure: Yes Hx Hypercholesterolemia: Yes Hx Hypertension: Yes Hx Peripheral Edema: Yes Hx Peripheral Vascular Disease: Yes - PULMONARY Hx Chronic Obstructive Pulmonary Disease (COPD): Yes Other/Comment: Sub-segmental atelectasis LLL. Left pleural effusion. - NEUROLOGICAL Hx Neurological Disorder: Yes Hx Dementia: Yes Other/Comment: Paresthesias of both feet - HEENT Hx HEENT Problems: No - RENAL Hx Chronic Kidney Disease: No Hx Kidney Stones: Yes - ENDOCRINE/METABOLIC Hx Diabetes Mellitus Type 2: Yes - HEMATOLOGICAL/ONCOLOGICAL Hx Blood Disorders: Yes Hx Anemia: Yes - INTEGUMENTARY Hx Dermatological Problems: Yes Hx Cellulitis: Yes - MUSCULOSKELETAL/RHEUMATOLOGICAL Hx Falls: Yes - GASTROINTESTINAL Hx Gastrointestinal Disorders: No - GENITOURINARY/GYNECOLOGICAL Hx Genitourinary Disorders: No - PSYCHIATRIC Hx Substance Use: No - SURGICAL HISTORY Hx Surgeries: Yes Hx Angiogram: Yes Hx Appendectomy: Yes Other/Comment: kidney stone removal - ANESTHESIA Hx Anesthesia: Yes Hx Anesthesia Reactions: No Hx Malignant Hyperthermia: No Meds Allergies/Adverse Reactions: Allergies Allergy/AdvReac Type Severity Reaction Status Date / Time No Known Allergies Allergy Verified 03/20/18 12:54 - Medications Medications: Current Medications Atorvastatin Calcium (Lipitor) 20 mg PO DAILY [facility] Last Admin: 04/07/18 09:15 Dose: 20 mg Bisacodyl (Dulcolax) 10 mg [place] DAILY PRN PRN Reason: Constipation Docusate Sodium (Colace) 100 mg PO DAILY [facility] Last Admin: 04/07/18 09:13 Dose: 100 mg Enoxaparin Sodium (Lovenox) 60 mg SC Q12 [facility] PRN Reason: Protocol Last Admin: 04/07/18 09:15 Dose: 60 mg Famotidine (Pepcid) 20 mg PO DAILY [facility] Last Admin: 04/07/18 09:16 Dose: 20 mg Cefepime HCl 1 gm/ Sodium (Chloride) 100 mls @ 200 mls/hr IVPB DAILY [facility] PRN Reason: Protocol Last Admin: 04/07/18 09:15 Dose: 200 mls/hr Vancomycin HCl 1 gm/ Sodium (Chloride) 250 mls @ 166.667 mls/hr IVPB DAILY@ 1300 [facility] PRN Reason: Protocol Last Admin: 04/06/18 13:23 Dose: Not Given Isosorbide Mononitrate (Imdur Er) 30 mg PO DAILY [facility] Last Admin: 04/07/18 09:20 Dose: Not Given Lisinopril (Zestril) 5 mg PO DAILY [facility] Last Admin: 04/07/18 09:21 Dose: Not Given Memantine (Namenda) 5 mg PO BID [facility] Last Admin: 04/07/18 09:16 Dose: 5 mg Metoprolol Tartrate (Lopressor) 25 mg PO Q12 [facility] Last Admin: 04/07/18 09:21 Dose: Not Given Multivitamins/Minerals (Therapeutic-M Tab) 1 tab PO DAILY [facility] Last Admin: 04/07/18 09:16 Dose: 1 tab Oxycodone/Acetaminophen (Percocet 5/325 Mg Tab) 1 tab PO Q4 PRN PRN Reason: Pain, moderate (4-7) Stop: 04/07/18 19:06 Last Admin: 04/07/18 09:29 Dose: 1 tab Saccharomyces Boulardii (Florastor) 250 mg PO BID [facility] Last Admin: 04/07/18 09:14 Dose: 250 mg Sodium Hypochlorite (Dakins Solution 0.125%) 0 appl TOP DAILY [facility] Last Admin: 04/07/18 09:13 Dose: Not Given Results - Vital Signs Recent Vital Signs: Last Vital Signs Temp 97.9 F 04/07/18 07:59 Pulse 74 04/07/18 09:21 Resp 20 04/07/18 07:59 BP 99/79 L 04/07/18 09:21 Pulse Ox 95 04/07/18 07:59
[2018-04-07] MEDS: Dextrose 5%/0.9% NS 1,000 ML IV SCH (16:20)
--- NOTE | 2018-04-07 17:02 | CP.PCM.CON ---
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 Pt recognized the telegraphic typewriter installer, and connected the day of the week because the telegraphic typewriter installer visited her on at [facility]. pt was unable to provide the year, was unable to provide the month or day/date. Pt was unable to relate recent circumstances or events. Pt was unable to describe her current status and was unable to express her needs or preferences. She communicated repeatedly "I want to get out of here." She voiced no other preferences. Social work Director consulted to clarify decision makers for the patient. Nephew listed on the medical record. Patient will be seen again for follow up to monitor her cognitive status. Cognition is currently impaired/deficient. Thank you, Dr. Mendoza 4:40-5 Past Patient History - Infectious Disease Hx of Infectious Diseases: None - Past Medical History & Family History Past Medical History?: Yes - Past Social History Smoking Status: Former Smoker Chewing Tobacco Use: No Cigar Use: No Alcohol: None Drugs: Denies Home Situation {Lives}: Alone - CARDIAC Hx Cardiac Disorders: Yes (CAD) Hx Congestive Heart Failure: Yes Hx Hypercholesterolemia: Yes Hx Hypertension: Yes Hx Peripheral Edema: Yes Hx Peripheral Vascular Disease: Yes - PULMONARY Hx Chronic Obstructive Pulmonary Disease (COPD): Yes Other/Comment: Sub-segmental atelectasis LLL. Left pleural effusion. - NEUROLOGICAL Hx Neurological Disorder: Yes Hx Dementia: Yes Other/Comment: Paresthesias of both feet - HEENT Hx HEENT Problems: No - RENAL Hx Chronic Kidney Disease: No Hx Kidney Stones: Yes - ENDOCRINE/METABOLIC Hx Diabetes Mellitus Type 2: Yes - HEMATOLOGICAL/ONCOLOGICAL Hx Blood Disorders: Yes Hx Anemia: Yes - INTEGUMENTARY Hx Dermatological Problems: Yes Hx Cellulitis: Yes - MUSCULOSKELETAL/RHEUMATOLOGICAL Hx Falls: Yes - GASTROINTESTINAL Hx Gastrointestinal Disorders: No - GENITOURINARY/GYNECOLOGICAL Hx Genitourinary Disorders: No - PSYCHIATRIC Hx Substance Use: No - SURGICAL HISTORY Hx Surgeries: Yes Hx Angiogram: Yes Hx Appendectomy: Yes Other/Comment: kidney stone removal - ANESTHESIA Hx Anesthesia: Yes Hx Anesthesia Reactions: No Hx Malignant Hyperthermia: No Meds Allergies/Adverse Reactions: Allergies Allergy/AdvReac Type Severity Reaction Status Date / Time No Known Allergies Allergy Verified 03/20/18 12:54 - Medications Medications: Current Medications Atorvastatin Calcium (Lipitor) 20 mg PO DAILY [facility] Last Admin: 04/07/18 09:15 Dose: 20 mg Bisacodyl (Dulcolax) 10 mg [place] DAILY PRN PRN Reason: Constipation Docusate Sodium (Colace) 100 mg PO DAILY [facility] Last Admin: 04/07/18 09:13 Dose: 100 mg Enoxaparin Sodium (Lovenox) 60 mg SC Q12 [facility] PRN Reason: Protocol Last Admin: 04/07/18 09:15 Dose: 60 mg Famotidine (Pepcid) 20 mg PO DAILY [facility] Last Admin: 04/07/18 09:16 Dose: 20 mg Cefepime HCl 1 gm/ Sodium (Chloride) 100 mls @ 200 mls/hr IVPB DAILY [facility] PRN Reason: Protocol Last Admin: 04/07/18 09:15 Dose: 200 mls/hr Vancomycin HCl 1 gm/ Sodium (Chloride) 250 mls @ 166.667 mls/hr IVPB DAILY@ 1300 [facility] PRN Reason: Protocol Last Admin: 04/07/18 13:12 Dose: 166.667 mls/hr Dextrose/Sodium Chloride (Dextrose 5%/0.9% Ns 1000 Ml) 1,000 mls @ 75 mls/hr IV .[id number] [facility] Stop: 04/08/18 13:54 Last Admin: 04/07/18 16:20 Dose: 75 mls/hr Isosorbide Mononitrate (Imdur Er) 30 mg PO DAILY [facility] Last Admin: 04/07/18 09:20 Dose: Not Given Lisinopril (Zestril) 5 mg PO DAILY [facility] Last Admin: 04/07/18 09:21 Dose: Not Given Memantine (Namenda) 5 mg PO BID [facility] Last Admin: 04/07/18 16:21 Dose: 5 mg Metoprolol Tartrate (Lopressor) 25 mg PO Q12 [facility] Last Admin: 04/07/18 09:21 Dose: Not Given Multivitamins/Minerals (Therapeutic-M Tab) 1 tab PO DAILY [facility] Last Admin: 04/07/18 09:16 Dose: 1 tab Oxycodone/Acetaminophen (Percocet 5/325 Mg Tab) 1 tab PO Q4 PRN PRN Reason: Pain, moderate (4-7) Stop: 04/07/18 19:06 Last Admin: 04/07/18 09:29 Dose: 1 tab Saccharomyces Boulardii (Florastor) 250 mg PO BID [facility] Last Admin: 04/07/18 16:20 Dose: 250 mg Sodium Hypochlorite (Dakins Solution 0.125%) 0 appl TOP DAILY [facility] Last Admin: 04/07/18 09:13 Dose: Not Given Results - Vital Signs Recent Vital Signs: Last Vital Signs Temp 96 F L 04/07/18 16:34 Pulse 86 04/07/18 16:34 Resp 20 04/07/18 16:34 BP 108/73 04/07/18 16:34 Pulse Ox 97 04/07/18 16:34 - Labs Labs: Laboratory Results - last 24 hr 04/04/18 04/04/18 04/05/18 18:10 21:22 05:31 POC Glucose (mg/dL) 112 H 97 93 04/05/18 04/05/18 04/05/18 11:18 15:53 21:51 POC Glucose (mg/dL) 107 118 H 136 H 04/06/18 04/06/18 04/06/18 05:39 10:59 15:39 POC Glucose (mg/dL) 102 107 99 04/07/18 04/07/18 10:48 15:22 POC Glucose (mg/dL) 108 105
--- NOTE | 2018-04-07 19:23 | CP.PCM.PN ---
Subjective - Date & Time of Evaluation Date of Evaluation: 04/07/18 Time of Evaluation: 22:22 - Subjective Subjective: Above notes appreciated Objective - Vital Signs/Intake and Output Vital Signs (last 24 hours): Temp Pulse Resp BP Pulse Ox 96 F L 86 20 108/73 97 04/07/18 16:34 04/07/18 16:34 04/07/18 16:34 04/07/18 16:34 04/07/18 16:34 Intake and Output: 04/07/18 04/08/18 18:59 06:59 Intake Total 575 Output Total 250 Balance 325 - Medications Medications: Current Medications Atorvastatin Calcium (Lipitor) 20 mg PO DAILY [facility] Last Admin: 04/07/18 09:15 Dose: 20 mg Bisacodyl (Dulcolax) 10 mg [place] DAILY PRN PRN Reason: Constipation Docusate Sodium (Colace) 100 mg PO DAILY [facility] Last Admin: 04/07/18 09:13 Dose: 100 mg Enoxaparin Sodium (Lovenox) 60 mg SC Q12 [facility] PRN Reason: Protocol Last Admin: 04/07/18 09:15 Dose: 60 mg Famotidine (Pepcid) 20 mg PO DAILY [facility] Last Admin: 04/07/18 09:16 Dose: 20 mg Cefepime HCl 1 gm/ Sodium (Chloride) 100 mls @ 200 mls/hr IVPB DAILY [facility] PRN Reason: Protocol Last Admin: 04/07/18 09:15 Dose: 200 mls/hr Vancomycin HCl 1 gm/ Sodium (Chloride) 250 mls @ 166.667 mls/hr IVPB DAILY@ 1300 [facility] PRN Reason: Protocol Last Admin: 04/07/18 13:12 Dose: 166.667 mls/hr Dextrose/Sodium Chloride (Dextrose 5%/0.9% Ns 1000 Ml) 1,000 mls @ 75 mls/hr IV .[id number] [facility] Stop: 04/08/18 13:54 Last Admin: 04/07/18 16:20 Dose: 75 mls/hr Isosorbide Mononitrate (Imdur Er) 30 mg PO DAILY [facility] Last Admin: 04/07/18 09:20 Dose: Not Given Lisinopril (Zestril) 5 mg PO DAILY [facility] Last Admin: 04/07/18 09:21 Dose: Not Given Memantine (Namenda) 5 mg PO BID [facility] Last Admin: 04/07/18 16:21 Dose: 5 mg Metoprolol Tartrate (Lopressor) 25 mg PO Q12 [facility] Last Admin: 04/07/18 09:21 Dose: Not Given Multivitamins/Minerals (Therapeutic-M Tab) 1 tab PO DAILY [facility] Last Admin: 04/07/18 09:16 Dose: 1 tab Saccharomyces Boulardii (Florastor) 250 mg PO BID [facility] Last Admin: 04/07/18 16:20 Dose: 250 mg Sodium Hypochlorite (Dakins Solution 0.125%) 0 appl TOP DAILY [facility] Last Admin: 04/07/18 09:13 Dose: Not Given - Respiratory Exam Respiratory Exam: NORMAL BREATHING PATTERN - Cardiovascular Exam Cardiovascular Exam: REGULAR RHYTHM - GI/Abdominal Exam GI & Abdominal Exam: Normal Bowel Sounds Assessment and Plan - Assessment and Plan (Free Text) Assessment: PVD S/P Angioplasty Iliac A.Stents S/P 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 Altered mental status?? Decision making capacity?? Toxic metabolic encephalopathy Adj disorder Depression Psychiatry Psychology Neurolgy SSRI D/C Tramadol ABBEY/ CKD IVF Nephrology US Kidney WNl Hx CHF Diastolic CAD stress thalium scarring ischemia?? Cardiology Hx COPD L Pleural effusion Pulmonary Hx Anemia Chronic dx NIDDM Thyroid dx
[2018-04-08] MEDS: Dextrose 5%/0.9% NS 1,000 ML IV SCH (06:31)
--- NOTE | 2018-04-08 08:29 | CP.PCM.PN ---
Subjective - Date & Time of Evaluation Date of Evaluation: 04/08/18 Time of Evaluation: 08:27 - Subjective Subjective: Podiatry progress Note for Dr. Briseno: 77 year old female patient seen and evaluated at bedside for bilateral extensive nectrotic lower extremity ulcerations secondary to DM and PVD. Patient is lethargic and not alert She is in moderate pain to bilateral lower extremities and agitated during dressing change. Denies N/V/F/SOB/CP. Objective - Vital Signs/Intake and Output Vital Signs (last 24 hours): Temp Pulse Resp BP Pulse Ox 97.9 F 73 20 111/56 L 100 04/08/18 08:07 04/08/18 08:07 04/08/18 08:07 04/08/18 08:07 04/08/18 08:07 - Medications Medications: Current Medications Atorvastatin Calcium (Lipitor) 20 mg PO DAILY [facility] Last Admin: 04/07/18 09:15 Dose: 20 mg Bisacodyl (Dulcolax) 10 mg [place] DAILY PRN PRN Reason: Constipation Docusate Sodium (Colace) 100 mg PO DAILY [facility] Last Admin: 04/07/18 09:13 Dose: 100 mg Enoxaparin Sodium (Lovenox) 60 mg SC Q12 [facility] PRN Reason: Protocol Last Admin: 04/07/18 22:26 Dose: 60 mg Famotidine (Pepcid) 20 mg PO DAILY [facility] Last Admin: 04/07/18 09:16 Dose: 20 mg Cefepime HCl 1 gm/ Sodium (Chloride) 100 mls @ 200 mls/hr IVPB DAILY [facility] PRN Reason: Protocol Last Admin: 04/07/18 09:15 Dose: 200 mls/hr Vancomycin HCl 1 gm/ Sodium (Chloride) 250 mls @ 166.667 mls/hr IVPB DAILY@ 1300 [facility] PRN Reason: Protocol Last Admin: 04/07/18 13:12 Dose: 166.667 mls/hr Dextrose/Sodium Chloride (Dextrose 5%/0.9% Ns 1000 Ml) 1,000 mls @ 75 mls/hr IV .[id number] [facility] Stop: 04/08/18 13:54 Last Admin: 04/08/18 06:31 Dose: 75 mls/hr Isosorbide Mononitrate (Imdur Er) 30 mg PO DAILY [facility] Last Admin: 04/07/18 09:20 Dose: Not Given Lisinopril (Zestril) 5 mg PO DAILY [facility] Last Admin: 04/07/18 09:21 Dose: Not Given Memantine (Namenda) 5 mg PO BID [facility] Last Admin: 04/07/18 16:21 Dose: 5 mg Metoprolol Tartrate (Lopressor) 25 mg PO Q12 [facility] Last Admin: 04/07/18 22:36 Dose: 25 mg Multivitamins/Minerals (Therapeutic-M Tab) 1 tab PO DAILY [facility] Last Admin: 04/07/18 09:16 Dose: 1 tab Saccharomyces Boulardii (Florastor) 250 mg PO BID [facility] Last Admin: 04/07/18 16:20 Dose: 250 mg Sodium Hypochlorite (Dakins Solution 0.125%) 0 appl TOP DAILY [facility] Last Admin: 04/07/18 09:13 Dose: Not Given - Constitutional Appears: Well, Non-toxic, No Acute Distress - Head Exam Head Exam: ATRAUMATIC, NORMOCEPHALIC - Extremities Exam Additional comments: Vasc: DP/PT pulses non-palpable, Temp gradient cool to cool, Cap refill delayed to digits/not attainable due to necrosis of 2-5 on right foot. Superficial pulsating artery palpated within the right circumfrential leg ulceration Ortho: Bilateral lower extremities painful upon palpation Neuro: Gross sensation intact and protective sensation diminished bilaterally Derm: Multiple ulcerations noted to the entire lower extremity with mixture of fibrotic/necrotic wound base: Erythema to the entire lower extremity with R>L, significantly malodorous, all sites (-) for purulence, probe to bone, tunneling or undermining. RIGHT: 1) Necrotic right heel eschar unstagable with no drainage noted measuring 9.0 cm X 7.0 cm 2) Circumferential ulceration to the medial posterior aspect measuring 21 cm in length, fibrotic edges, peroneal tendon exposed, gastroc tendon exposed, serous drainage noted 3) necrotic 2nd and 3rd digits till the level of the MPTJ, dorsally necrotic 4th digit t the level of the MTPJ 4) fibro/necrotic ulceration to the dorsal aspect of the hallux at the PIPJ measuring 3.0 cmX 2.5 cm 5) fibro/necrotic ulceration to the dorsal forefoot measuring 2.5 cm X 1.8 cm 6) fibro/necrotic ulceration noted to the medial ankle distal to the medial malleolus measuring 4. 0 X 2.0 cm, + fluctuance noted 7) fibro/necrotic ulceration to the anterior tibial tuberosity measuring 3.0 X 1.0 cm 8) circular ulceration noted to the medial aspect of the leg at the level of the tibial tuberosity measuring 2.4 cm X 2.6 cm x1.5 with 80% graular and 20% fibrotic bases, surrounding erythema 9) multiple stable eschars to the knee 10) New wound noted to the right hallux with minimal bleeding LEFT: 1) echar to the heel, necrotic, measuring 5.0 cm X 6.0 cm 2) fibro/necrotic ulceration to the dorsal aspect of the foot, with fibrotic edges, positive drainage, dusky appearance extending proximally and beginning to demarcate 3) fibro/necrotic ulceration to the medial aspect of the leg measuring 5.0 c, X 3.0 cm 4) gangranous changes to the tip of the hallux, and to the dorsum of the 2nd digit, dusky appearance to hallux 5) multipe eschars to the tibial tuberosity, stable in nature - Neurological Exam Neurological Exam: Alert, Awake Assessment and Plan - Assessment and Plan (Free Text) Assessment: 77 year old female patient seen and evaluated at bedside for bilateral extensive necrotic lower extremity ulcerations. Plan: Patient seen and evaluated at bedside with Dr. Briseno Patient chart, labs and vitals reviewed: Afebrile Continue IV abx per ID reccs X-ray foot bilaterally: No signs of acute osseous changes; Proximal tib-fibula X -ray: multiple deep ulcers, no evidence of osteomyelitis. (03/20) Bilateral wound culture 03/20/18: E. Coli (Final) B/L lower extremity ulcerations evaluated, will continue to monitor lesions and their progression Dressing changed to bilateral lower extremities with Adaptic, ABD, and DSD Patient to wear multipodus boots at all times. Dr. Cintron in contact with patient's nephew for plan of care Podiatry will continue to follow while patient is in house
[2018-04-08] MEDS: Saccharomyces Boulardi 250 mg Cap PO SCH ×2 (09:29→16:03)
[2018-04-08] MEDS: Enoxaparin 60 mg Syringe SC SCH ×2 (09:30→21:38)
[2018-04-08] MEDS: Multivitamin With Minerals Tab PO SCH (09:31)
--- NOTE | 2018-04-08 09:57 | CP.PCM.PN ---
Subjective - Date & Time of Evaluation Date of Evaluation: 04/08/18 Time of Evaluation: 09:30 - Subjective Subjective: COMPLAINS OF BILATEAL LEG PAIN DOESN'T ANSWER QUESTIONS APPROPRIATELY STATES SHE WANTS TO GO HOME Objective - Vital Signs/Intake and Output Vital Signs (last 24 hours): Temp Pulse Resp BP Pulse Ox 97.9 F 73 20 111/56 L 100 04/08/18 08:07 04/08/18 09:31 04/08/18 08:07 04/08/18 09:31 04/08/18 08:07 - Medications Medications: Current Medications Atorvastatin Calcium (Lipitor) 20 mg PO DAILY [facility] Last Admin: 04/08/18 09:29 Dose: 20 mg Bisacodyl (Dulcolax) 10 mg [place] DAILY PRN PRN Reason: Constipation Docusate Sodium (Colace) 100 mg PO DAILY [facility] Last Admin: 04/08/18 09:28 Dose: 100 mg Enoxaparin Sodium (Lovenox) 60 mg SC Q12 [facility] PRN Reason: Protocol Last Admin: 04/08/18 09:30 Dose: 60 mg Famotidine (Pepcid) 20 mg PO DAILY [facility] Last Admin: 04/08/18 09:31 Dose: 20 mg Cefepime HCl 1 gm/ Sodium (Chloride) 100 mls @ 200 mls/hr IVPB DAILY [facility] PRN Reason: Protocol Last Admin: 04/07/18 09:15 Dose: 200 mls/hr Vancomycin HCl 1 gm/ Sodium (Chloride) 250 mls @ 166.667 mls/hr IVPB DAILY@ 1300 [facility] PRN Reason: Protocol Last Admin: 04/07/18 13:12 Dose: 166.667 mls/hr Dextrose/Sodium Chloride (Dextrose 5%/0.9% Ns 1000 Ml) 1,000 mls @ 75 mls/hr IV .[id number] [facility] Stop: 04/08/18 13:54 Last Admin: 04/08/18 06:31 Dose: 75 mls/hr Isosorbide Mononitrate (Imdur Er) 30 mg PO DAILY [facility] Last Admin: 04/08/18 09:29 Dose: 30 mg Lisinopril (Zestril) 5 mg PO DAILY [facility] Last Admin: 04/08/18 09:31 Dose: Not Given Memantine (Namenda) 5 mg PO BID [facility] Last Admin: 04/08/18 09:31 Dose: 5 mg Metoprolol Tartrate (Lopressor) 25 mg PO Q12 [facility] Last Admin: 04/08/18 09:30 Dose: Not Given Multivitamins/Minerals (Therapeutic-M Tab) 1 tab PO DAILY [facility] Last Admin: 04/08/18 09:31 Dose: 1 tab Saccharomyces Boulardii (Florastor) 250 mg PO BID [facility] Last Admin: 04/08/18 09:29 Dose: 250 mg Sodium Hypochlorite (Dakins Solution 0.125%) 0 appl TOP DAILY [facility] Last Admin: 04/08/18 09:28 Dose: Not Given - Respiratory Exam Respiratory Exam: Decreased Breath Sounds - Cardiovascular Exam Cardiovascular Exam: REGULAR RHYTHM, +S1, +S2 - Extremities Exam Additional comments: BILATERAL LEG ULCERS AND GANGRENOUS TOES - Additional Findings Additional findings: PSYCHIATRY NOTE REVIEWED WITH ALTERED MENTAL STATUS AND LACKS CAPACITY FOR MEDICAL DECISION MAKING PSYCHOLOGY NOTE WITH COGNITIVE IMPAIRMENT/DEFICIENCY Assessment and Plan - Assessment and Plan (Free Text) Assessment: CAD SEVERE PAD HYPERTENSION HYPERLIPIDEMIA AMS Plan: CONTINUE ANTIBIOTICS, LOVENOX, IMDUR, METOPROLOL, LISINOPRIL, ATORVASTATIN
--- NOTE | 2018-04-08 10:40 | CP.PCM.PN ---
Subjective - Date & Time of Evaluation Date of Evaluation: 04/08/18 Time of Evaluation: 10:00 - Subjective Subjective: c/o leg pain Objective - Vital Signs/Intake and Output Vital Signs (last 24 hours): Temp Pulse Resp BP Pulse Ox 97.9 F 73 20 111/56 L 100 04/08/18 08:07 04/08/18 09:31 04/08/18 08:07 04/08/18 09:31 04/08/18 08:07 - Medications Medications: Current Medications Atorvastatin Calcium (Lipitor) 20 mg PO DAILY [facility] Last Admin: 04/08/18 09:29 Dose: 20 mg Bisacodyl (Dulcolax) 10 mg [place] DAILY PRN PRN Reason: Constipation Docusate Sodium (Colace) 100 mg PO DAILY [facility] Last Admin: 04/08/18 09:28 Dose: 100 mg Enoxaparin Sodium (Lovenox) 60 mg SC Q12 [facility] PRN Reason: Protocol Last Admin: 04/08/18 09:30 Dose: 60 mg Famotidine (Pepcid) 20 mg PO DAILY [facility] Last Admin: 04/08/18 09:31 Dose: 20 mg Cefepime HCl 1 gm/ Sodium (Chloride) 100 mls @ 200 mls/hr IVPB DAILY [facility] PRN Reason: Protocol Last Admin: 04/07/18 09:15 Dose: 200 mls/hr Vancomycin HCl 1 gm/ Sodium (Chloride) 250 mls @ 166.667 mls/hr IVPB DAILY@ 1300 [facility] PRN Reason: Protocol Last Admin: 04/07/18 13:12 Dose: 166.667 mls/hr Dextrose/Sodium Chloride (Dextrose 5%/0.9% Ns 1000 Ml) 1,000 mls @ 75 mls/hr IV .[id number] [facility] Stop: 04/08/18 13:54 Last Admin: 04/08/18 06:31 Dose: 75 mls/hr Isosorbide Mononitrate (Imdur Er) 30 mg PO DAILY [facility] Last Admin: 04/08/18 09:29 Dose: 30 mg Lisinopril (Zestril) 5 mg PO DAILY [facility] Last Admin: 04/08/18 09:31 Dose: Not Given Memantine (Namenda) 5 mg PO BID [facility] Last Admin: 04/08/18 09:31 Dose: 5 mg Metoprolol Tartrate (Lopressor) 25 mg PO Q12 [facility] Last Admin: 04/08/18 09:30 Dose: Not Given Multivitamins/Minerals (Therapeutic-M Tab) 1 tab PO DAILY [facility] Last Admin: 04/08/18 09:31 Dose: 1 tab Saccharomyces Boulardii (Florastor) 250 mg PO BID [facility] Last Admin: 04/08/18 09:29 Dose: 250 mg Sodium Hypochlorite (Dakins Solution 0.125%) 0 appl TOP DAILY [facility] Last Admin: 04/08/18 09:28 Dose: Not Given - Constitutional Appears: Non-toxic - Head Exam Head Exam: NORMOCEPHALIC - Eye Exam Eye Exam: PERRL - ENT Exam ENT Exam: Mucous Membranes Dry - Neck Exam Neck Exam: absent: Lymphadenopathy - Respiratory Exam Respiratory Exam: Decreased Breath Sounds Assessment and Plan - Assessment and Plan (Free Text) Assessment: needs aka
[2018-04-08] MEDS: Cefepime 1 GM in Sodium Chloride 0.9% 100 ML IVPB SCH (12:54)
--- NOTE | 2018-04-08 17:15 | CP.PCM.PN ---
Subjective - Date & Time of Evaluation Date of Evaluation: 04/08/18 Time of Evaluation: 22:22 - Subjective Subjective: Above noted Objective - Vital Signs/Intake and Output Vital Signs (last 24 hours): Temp Pulse Resp BP Pulse Ox 97.9 F 90 20 145/67 100 04/08/18 16:04 04/08/18 16:04 04/08/18 16:04 04/08/18 16:04 04/08/18 16:04 - Medications Medications: Current Medications Atorvastatin Calcium (Lipitor) 20 mg PO DAILY [facility] Last Admin: 04/08/18 09:29 Dose: 20 mg Bisacodyl (Dulcolax) 10 mg [place] DAILY PRN PRN Reason: Constipation Docusate Sodium (Colace) 100 mg PO DAILY [facility] Last Admin: 04/08/18 09:28 Dose: 100 mg Enoxaparin Sodium (Lovenox) 60 mg SC Q12 [facility] PRN Reason: Protocol Last Admin: 04/08/18 09:30 Dose: 60 mg Famotidine (Pepcid) 20 mg PO DAILY [facility] Last Admin: 04/08/18 09:31 Dose: 20 mg Cefepime HCl 1 gm/ Sodium (Chloride) 100 mls @ 200 mls/hr IVPB DAILY [facility] PRN Reason: Protocol Last Admin: 04/08/18 12:54 Dose: 200 mls/hr Vancomycin HCl 1 gm/ Sodium (Chloride) 250 mls @ 166.667 mls/hr IVPB DAILY@ 1300 [facility] PRN Reason: Protocol Last Admin: 04/08/18 12:56 Dose: 166.667 mls/hr Isosorbide Mononitrate (Imdur Er) 30 mg PO DAILY [facility] Last Admin: 04/08/18 09:29 Dose: 30 mg Lisinopril (Zestril) 5 mg PO DAILY [facility] Last Admin: 04/08/18 09:31 Dose: Not Given Memantine (Namenda) 5 mg PO BID [facility] Last Admin: 04/08/18 16:03 Dose: 5 mg Metoprolol Tartrate (Lopressor) 25 mg PO Q12 [facility] Last Admin: 04/08/18 09:30 Dose: Not Given Multivitamins/Minerals (Therapeutic-M Tab) 1 tab PO DAILY [facility] Last Admin: 04/08/18 09:31 Dose: 1 tab Saccharomyces Boulardii (Florastor) 250 mg PO BID [facility] Last Admin: 04/08/18 16:03 Dose: 250 mg Sodium Hypochlorite (Dakins Solution 0.125%) 0 appl TOP DAILY [facility] Last Admin: 04/08/18 09:28 Dose: Not Given - Respiratory Exam Respiratory Exam: NORMAL BREATHING PATTERN - Cardiovascular Exam Cardiovascular Exam: REGULAR RHYTHM - GI/Abdominal Exam GI & Abdominal Exam: Normal Bowel Sounds Assessment and Plan - Assessment and Plan (Free Text) Assessment: PVD S/P Angioplasty Iliac A.Stents S/P Angiogram DIRECTOR CLINICAL DATA occlusion Low ext edema cellulitis gangrene Local wound care IV ABX DAPT Lovenox ID Podiatry Surgery Physiatry Cardiology (Inv) Surgery AKA ??? Altered mental status?? Decision making capacity?? Toxic metabolic encephalopathy Adj disorder Depression Psychiatry Psychology Neurolgy D/W Nephew SSRI ??? ABBEY/ CKD IVF Nephrology US Kidney WNl Hx CHF Diastolic CAD stress thalium scarring ischemia?? Cardiology Hx COPD L Pleural effusion Pulmonary Hx Anemia Chronic dx NIDDM Thyroid dx
[2018-04-08 19:47] LABS: BASO # 0.1 K/uL (0.0-0.2); BASO % 0.7 % (0.0-2.0); EOS % 0.2 % (0.0-4.0); HEMOGLOBIN 8.4 g/dL (12.0-16.0); LYMPH # 0.3 K/uL (1.0-4.3); LYMPH % 2.3 % (20.0-40.0); MEAN CORPUSCULAR HEMOGLOBIN 23.2 pg (27.0-31.0); MEAN CORPUSCULAR HGB CONC 28.7 g/dL (33.0-37.0); MEAN PLATELET VOLUME 8.1 fl (7.2-11.7); MONO # 0.5 K/uL (0.0-0.8); MONO % 4.2 % (0.0-10.0); NEUT # 11.6 K/uL (1.8-7.0); NEUT % 92.6 % (50.0-75.0); NRBC % 0.8 % (0.0-0.0); PLATELET COUNT 175 K/uL (130-400); RBC 3.61 Mil/uL (3.80-5.20); WHITE BLOOD COUNT 12.5 K/uL (4.8-10.8)
[2018-04-08 20:34] LABS: ALB/GLOB RATIO 0.7 (1.0-2.1); ALBUMIN 2.3 g/dL (3.5-5.0); ALT/SGPT 21 U/L (9-52); AST/SGOT 12 U/L (14-36); BLOOD UREA NITROGEN 36 mg/dl (7-17); CALCIUM 8.5 mg/dL (8.4-10.2); GFR AFRICAN-AMERICAN > 60; GFR NON-AFRICAN AMERICAN 53
[2018-04-08 22:28] LABS: BANDS 3 % (0-2); LYMPHOCYTE 6 % (20-50); MONOCYTE 5 % (0-10); NEUTROPHIL 86 % (42-75); TOTAL CELLS COUNTED 100
[2018-04-08 22:29] LABS: ANISOCYTOSIS MODERATE; HYPOCHROMIC MODERATE; MICROCYTOSIS MODERATE; OVALOCYTES SLIGHT; PLATELET ESTIMATE NORMAL (NORMAL); POIKILOCYTOSIS SLIGHT; POLYCHROMIC SLIGHT
[2018-04-08 22:30] LABS: BURR CELLS SLIGHT; TEARDROP CELLS SLIGHT
[2018-04-08] MEDS ORDERED: guaiFENesin 100 mg/5 ml Syrup UD PO PRN (23:20)
[2018-04-09] MEDS: Cefepime 1 GM in Sodium Chloride 0.9% 100 ML IVPB SCH (09:06)
[2018-04-09] MEDS: Enoxaparin 60 mg Syringe SC SCH ×2 (09:07→22:00)
[2018-04-09] MEDS: Saccharomyces Boulardi 250 mg Cap PO SCH ×2 (09:19→16:01)
[2018-04-09] MEDS: Multivitamin With Minerals Tab PO SCH (09:21)
--- NOTE | 2018-04-09 09:41 | CP.PCM.PN ---
Subjective - Date & Time of Evaluation Date of Evaluation: 04/09/18 Time of Evaluation: 09:38 - Subjective Subjective: Podiatry progress Note for Dr. Briseno: 77 year old female patient seen and evaluated at bedside for bilateral extensive nectrotic lower extremity ulcerations secondary to DM and PVD. Patient is lethargic, however more alert today. No acute events overnight. She is agreeable to dressing change today. Denies N/V/F/SOB/CP. Objective - Vital Signs/Intake and Output Vital Signs (last 24 hours): Temp Pulse Resp BP Pulse Ox 98.0 F 90 20 95/60 L 96 04/09/18 08:11 04/09/18 09:21 04/09/18 08:11 04/09/18 09:21 04/09/18 08:11 - Medications Medications: Current Medications Atorvastatin Calcium (Lipitor) 20 mg PO DAILY [facility] Last Admin: 04/09/18 09:20 Dose: Not Given Bisacodyl (Dulcolax) 10 mg [place] DAILY PRN PRN Reason: Constipation Docusate Sodium (Colace) 100 mg PO DAILY [facility] Last Admin: 04/09/18 09:18 Dose: Not Given Enoxaparin Sodium (Lovenox) 60 mg SC Q12 [facility] PRN Reason: Protocol Last Admin: 04/09/18 09:07 Dose: 60 mg Famotidine (Pepcid) 20 mg PO DAILY [facility] Last Admin: 04/09/18 09:21 Dose: Not Given Guaifenesin (Robitussin) 100 mg PO Q4 PRN PRN Reason: Cough Last Admin: 04/09/18 00:38 Dose: 100 mg Cefepime HCl 1 gm/ Sodium (Chloride) 100 mls @ 200 mls/hr IVPB DAILY [facility] PRN Reason: Protocol Last Admin: 04/09/18 09:06 Dose: 200 mls/hr Vancomycin HCl 1 gm/ Sodium (Chloride) 250 mls @ 166.667 mls/hr IVPB DAILY@ 1300 [facility] PRN Reason: Protocol Last Admin: 04/08/18 12:56 Dose: 166.667 mls/hr Isosorbide Mononitrate (Imdur Er) 30 mg PO DAILY [facility] Last Admin: 04/09/18 09:20 Dose: Not Given Lisinopril (Zestril) 5 mg PO DAILY [facility] Last Admin: 04/09/18 09:21 Dose: Not Given Memantine (Namenda) 5 mg PO BID [facility] Last Admin: 04/09/18 09:21 Dose: Not Given Metoprolol Tartrate (Lopressor) 25 mg PO Q12 [facility] Last Admin: 04/09/18 09:20 Dose: Not Given Multivitamins/Minerals (Therapeutic-M Tab) 1 tab PO DAILY [facility] Last Admin: 04/09/18 09:21 Dose: Not Given Saccharomyces Boulardii (Florastor) 250 mg PO BID [facility] Last Admin: 04/09/18 09:19 Dose: Not Given Sodium Hypochlorite (Dakins Solution 0.125%) 0 appl TOP DAILY [facility] Last Admin: 04/09/18 09:19 Dose: Not Given - Labs Labs: 04/08/18 19:30 04/08/18 19:30 - Constitutional Appears: Well, Non-toxic, No Acute Distress - Head Exam Head Exam: ATRAUMATIC, NORMOCEPHALIC - Extremities Exam Additional comments: Vasc: DP/PT pulses non-palpable, Temp gradient cool to cool, Cap refill delayed to digits/not attainable due to necrosis of 2-5 on right foot. Superficial pulsating artery palpated within the right circumfrential leg ulceration Ortho: Bilateral lower extremities painful upon palpation Neuro: Gross sensation intact and protective sensation diminished bilaterally Derm: Multiple ulcerations noted to the entire lower extremity with mixture of fibrotic/necrotic wound base: Erythema to the entire lower extremity with R>L, significantly malodorous, all sites (-) for purulence, probe to bone, tunneling or undermining. RIGHT: 1) Necrotic right heel eschar unstagable with no drainage noted measuring 9.0 cm X 7.0 cm 2) Circumferential ulceration to the medial posterior aspect measuring 21 cm in length, fibrotic edges, peroneal tendon exposed, gastroc tendon exposed, serous drainage noted 3) necrotic 2nd and 3rd digits till the level of the MPTJ, dorsally necrotic 4th digit t the level of the MTPJ 4) fibro/necrotic ulceration to the dorsal aspect of the hallux at the PIPJ measuring 3.0 cmX 2.5 cm 5) fibro/necrotic ulceration to the dorsal forefoot measuring 2.5 cm X 1.8 cm 6) fibro/necrotic ulceration noted to the medial ankle distal to the medial malleolus measuring 4. 0 X 2.0 cm, + fluctuance noted 7) fibro/necrotic ulceration to the anterior tibial tuberosity measuring 3.0 X 1.0 cm 8) circular ulceration noted to the medial aspect of the leg at the level of the tibial tuberosity measuring 2.4 cm X 2.6 cm x1.5 with 80% graular and 20% fibrotic bases, surrounding erythema 9) multiple stable eschars to the knee 10) New wound noted to the right hallux with minimal bleeding LEFT: 1) echar to the heel, necrotic, measuring 5.0 cm X 6.0 cm 2) fibro/necrotic ulceration to the dorsal aspect of the foot, with fibrotic edges, positive drainage, dusky appearance extending proximally and beginning to demarcate 3) fibro/necrotic ulceration to the medial aspect of the leg measuring 5.0 c, X 3.0 cm 4) gangranous changes to the tip of the hallux, and to the dorsum of the 2nd digit, dusky appearance to hallux 5) multipe eschars to the tibial tuberosity, stable in nature - Neurological Exam Neurological Exam: Alert, Awake - Psychiatric Exam Psychiatric exam: Normal Affect Assessment and Plan - Assessment and Plan (Free Text) Assessment: 77 year old female patient seen and evaluated at bedside for bilateral extensive necrotic lower extremity ulcerations. Plan: Patient seen and evaluated at bedside and discussed with Dr. Briseno Discussed with patient the option for b/l ABBEY; Patient agreeable as of this morning Patient chart, labs and vitals reviewed: Afebrile, leukocytosis present Continue IV abx per ID reccs X-ray foot bilaterally: No signs of acute osseous changes; Proximal tib-fibula X -ray: multiple deep ulcers, no evidence of osteomyelitis. (03/20) Bilateral wound culture 03/20/18: E. Coli (Final) B/L lower extremity ulcerations evaluated, will continue to monitor lesions and their progression Dressing changed to bilateral lower extremities with Adaptic, ABD, and DSD Patient to wear multipodus boots at all times. Podiatry will continue to follow while patient is in house .
[2018-04-09] MEDS: Albuterol-Ipratrop 3 mg / 0.5 (3 ml) UD INH PRN (10:10)
[2018-04-09 10:23] LABS: ABG ALLEN TEST YES; ARTERIAL BLOOD GAS HCO3 18.2 mmol/L (21-28); ARTERIAL BLOOD GAS HEMOGLOBIN 8.8 g/dL (11.7-17.4); ARTERIAL BLOOD GAS O2 CONTENT 11.7 ML/dL (15-23); ARTERIAL BLOOD GAS O2 SAT 97.2 % (95-98); ARTERIAL BLOOD GAS PCO2 41 mm/Hg (35-45); ARTERIAL BLOOD GAS PH 7.25 (7.35-7.45); ARTERIAL BLOOD GAS PO2 82 mm/Hg (80-100); ARTERIAL BLOOD GAS TCO2 19.3 mmol/L (22-28)
--- NOTE | 2018-04-09 10:47 | RAD ---
Date of service: 04/09/2018 HISTORY: sob COMPARISON: 04/07/2018 FINDINGS: LUNGS: Interval progressive low-density opacification over the inferior right beverly thorax. Compressive atelectasis here with or without concomitant infiltrate-considerations. PLEURA: Bilateral pleural effusions that on the right appears increased. The right is moderate. The left is small. No pneumothorax appreciated CARDIOVASCULAR: Cardiomegaly -similar. Pulmonary venous congestion -similar. Extensive mitral annular calcification -similar Atherosclerotic vascular calcifications present. OSSEOUS STRUCTURES: Thoracic spondylosis. VISUALIZED UPPER ABDOMEN: Normal. OTHER FINDINGS: None. IMPRESSION: interval increased inferior right hemithoracic opacification compatible with interval progressive compressive atelectasis with or without progressive infiltrate. interval increased right pleural effusion. Other findings as above.
--- NOTE | 2018-04-09 11:59 | CP.PCM.PN ---
Subjective - Date & Time of Evaluation Date of Evaluation: 04/09/18 Time of Evaluation: 08:00 - Subjective Subjective: IV rx renewed no fever Objective - Vital Signs/Intake and Output Vital Signs (last 24 hours): Temp Pulse Resp BP Pulse Ox 98.0 F 90 20 95/60 L 96 04/09/18 08:11 04/09/18 09:21 04/09/18 08:11 04/09/18 09:21 04/09/18 08:11 - Medications Medications: Current Medications Albuterol/Ipratropium (Duoneb 3 Mg/0.5 Mg (3 Ml) Ud) 3 ml INH RQ4 PRN PRN Reason: Shortness of Breath Last Admin: 04/09/18 10:10 Dose: 3 ml Atorvastatin Calcium (Lipitor) 20 mg PO DAILY [facility] Last Admin: 04/09/18 09:20 Dose: Not Given Bisacodyl (Dulcolax) 10 mg [place] DAILY PRN PRN Reason: Constipation Docusate Sodium (Colace) 100 mg PO DAILY [facility] Last Admin: 04/09/18 09:18 Dose: Not Given Enoxaparin Sodium (Lovenox) 60 mg SC Q12 [facility] PRN Reason: Protocol Last Admin: 04/09/18 09:07 Dose: 60 mg Famotidine (Pepcid) 20 mg PO DAILY [facility] Last Admin: 04/09/18 09:21 Dose: Not Given Guaifenesin (Robitussin) 100 mg PO Q4 PRN PRN Reason: Cough Last Admin: 04/09/18 00:38 Dose: 100 mg Cefepime HCl 1 gm/ Sodium (Chloride) 100 mls @ 200 mls/hr IVPB DAILY [facility] PRN Reason: Protocol Last Admin: 04/09/18 09:06 Dose: 200 mls/hr Vancomycin HCl 1 gm/ Sodium (Chloride) 250 mls @ 166.667 mls/hr IVPB DAILY@ 1300 [facility] PRN Reason: Protocol Last Admin: 04/08/18 12:56 Dose: 166.667 mls/hr Isosorbide Mononitrate (Imdur Er) 30 mg PO DAILY [facility] Last Admin: 04/09/18 09:20 Dose: Not Given Lisinopril (Zestril) 5 mg PO DAILY [facility] Last Admin: 04/09/18 09:21 Dose: Not Given Memantine (Namenda) 5 mg PO BID [facility] Last Admin: 04/09/18 09:21 Dose: Not Given Metoprolol Tartrate (Lopressor) 25 mg PO Q12 [facility] Last Admin: 04/09/18 09:20 Dose: Not Given Multivitamins/Minerals (Therapeutic-M Tab) 1 tab PO DAILY [facility] Last Admin: 04/09/18 09:21 Dose: Not Given Saccharomyces Boulardii (Florastor) 250 mg PO BID [facility] Last Admin: 04/09/18 09:19 Dose: Not Given Sodium Hypochlorite (Dakins Solution 0.125%) 0 appl TOP DAILY [facility] Last Admin: 04/09/18 09:19 Dose: Not Given - Labs Labs: 04/08/18 19:30 04/08/18 19:30 - Constitutional Appears: Confused, Chronically Ill - Head Exam Head Exam: NORMOCEPHALIC - Eye Exam Eye Exam: PERRL - ENT Exam ENT Exam: Mucous Membranes Dry - Neck Exam Neck Exam: absent: Lymphadenopathy - Respiratory Exam Respiratory Exam: Decreased Breath Sounds - Cardiovascular Exam Cardiovascular Exam: REGULAR RHYTHM - GI/Abdominal Exam GI & Abdominal Exam: Distended, Soft - Rectal Exam Rectal Exam: Deferred - Exam Exam: NORMAL INSPECTION - Extremities Exam Extremities Exam: absent: Pedal Edema - Back Exam Back Exam: absent: CVA tenderness (L) - Neurological Exam Neurological Exam: Alert, Altered, Awake Assessment and Plan - Assessment and Plan (Free Text) Assessment: cont rx bilat leg ulcers woill need bilat aka
--- NOTE | 2018-04-09 12:31 | CP.PCM.PCO ---
Assessment & Plan - Assessment and Plan (Free Text) Assessment: Spoke with patient's Nephew Jimbo Medina regarding advance directives ; Nephew states he is POA/ Healthcare Proxy. Nephew wishes to have DNR/DNI status and is requesting for Hospice eval. Above d/w who would like to speak to Nephew to verify above. pending f/u with
--- NOTE | 2018-04-09 12:42 | CP.PCM.PN ---
Subjective - Date & Time of Evaluation Date of Evaluation: 04/09/18 Time of Evaluation: 11:00 - Subjective Subjective: CONFUSED BUT DENIES CHEST PAIN OR SOB Objective - Vital Signs/Intake and Output Vital Signs (last 24 hours): Temp Pulse Resp BP Pulse Ox 98.0 F 90 20 95/60 L 96 04/09/18 08:11 04/09/18 09:21 04/09/18 08:11 04/09/18 09:21 04/09/18 08:11 - Medications Medications: Current Medications Albuterol/Ipratropium (Duoneb 3 Mg/0.5 Mg (3 Ml) Ud) 3 ml INH RQ4 PRN PRN Reason: Shortness of Breath Last Admin: 04/09/18 10:10 Dose: 3 ml Atorvastatin Calcium (Lipitor) 20 mg PO DAILY [facility] Last Admin: 04/09/18 09:20 Dose: Not Given Bisacodyl (Dulcolax) 10 mg [place] DAILY PRN PRN Reason: Constipation Docusate Sodium (Colace) 100 mg PO DAILY [facility] Last Admin: 04/09/18 09:18 Dose: Not Given Enoxaparin Sodium (Lovenox) 60 mg SC Q12 [facility] PRN Reason: Protocol Last Admin: 04/09/18 09:07 Dose: 60 mg Famotidine (Pepcid) 20 mg PO DAILY [facility] Last Admin: 04/09/18 09:21 Dose: Not Given Guaifenesin (Robitussin) 100 mg PO Q4 PRN PRN Reason: Cough Last Admin: 04/09/18 00:38 Dose: 100 mg Cefepime HCl 1 gm/ Sodium (Chloride) 100 mls @ 200 mls/hr IVPB DAILY [facility] PRN Reason: Protocol Last Admin: 04/09/18 09:06 Dose: 200 mls/hr Vancomycin HCl 1 gm/ Sodium (Chloride) 250 mls @ 166.667 mls/hr IVPB DAILY@ 1300 [facility] PRN Reason: Protocol Last Admin: 04/08/18 12:56 Dose: 166.667 mls/hr Isosorbide Mononitrate (Imdur Er) 30 mg PO DAILY [facility] Last Admin: 04/09/18 09:20 Dose: Not Given Lisinopril (Zestril) 5 mg PO DAILY [facility] Last Admin: 08/15/18 09:21 Dose: Not Given Memantine (Namenda) 5 mg PO BID [facility] Last Admin: 04/09/18 09:21 Dose: Not Given Metoprolol Tartrate (Lopressor) 25 mg PO Q12 [facility] Last Admin: 04/09/18 09:20 Dose: Not Given Multivitamins/Minerals (Therapeutic-M Tab) 1 tab PO DAILY [facility] Last Admin: 04/09/18 09:21 Dose: Not Given Saccharomyces Boulardii (Florastor) 250 mg PO BID [facility] Last Admin: 04/09/18 09:19 Dose: Not Given Sodium Hypochlorite (Dakins Solution 0.125%) 0 appl TOP DAILY [facility] Last Admin: 04/09/18 09:19 Dose: Not Given - Labs Labs: 04/08/18 19:30 04/08/18 19:30 - Respiratory Exam Respiratory Exam: Decreased Breath Sounds - Cardiovascular Exam Cardiovascular Exam: REGULAR RHYTHM, +S1, +S2 - Extremities Exam Additional comments: BOTH LE WITH DRESSINGS AND BOOTS ON - Additional Findings Additional findings: BP HAS BEEN 91-95/60 YESTERDAY AFTERNOON AND THIS MORNING X-RAY REPORTS NOTED Assessment and Plan - Assessment and Plan (Free Text) Assessment: CAD SEVERE PAD HYPERTENSION HISTORY-NOW HYPOTENSIVE COPD DM Plan: CONTINUE ANTIBIOTICS, LOVENOX, ATORVASTATIN, IMDUR STOP LISINOPRIL AND METOPROLOL DUE TO HYPOTENSION FOR POSSIBLE HOSPICE CARE
--- NOTE | 2018-04-09 16:37 | CP.PCM.PN ---
Subjective - Date & Time of Evaluation Date of Evaluation: 04/09/18 Time of Evaluation: 22:22 - Subjective Subjective: D/W Nephew who has POA and Healthcare proxy (will fax) Agrees to DNR/DNI and palliative care Objective - Vital Signs/Intake and Output Vital Signs (last 24 hours): Temp Pulse Resp BP Pulse Ox 97 F L 92 H 20 100/57 L 94 L 04/09/18 16:24 04/09/18 16:24 04/09/18 16:24 04/09/18 16:24 04/09/18 16:24 - Medications Medications: Current Medications Albuterol/Ipratropium (Duoneb 3 Mg/0.5 Mg (3 Ml) Ud) 3 ml INH RQ4 PRN PRN Reason: Shortness of Breath Last Admin: 04/09/18 10:10 Dose: 3 ml Atorvastatin Calcium (Lipitor) 20 mg PO DAILY [facility] Last Admin: 04/09/18 09:20 Dose: Not Given Bisacodyl (Dulcolax) 10 mg [place] DAILY PRN PRN Reason: Constipation Docusate Sodium (Colace) 100 mg PO DAILY [facility] Last Admin: 04/09/18 09:18 Dose: Not Given Enoxaparin Sodium (Lovenox) 60 mg SC Q12 [facility] PRN Reason: Protocol Last Admin: 04/09/18 09:07 Dose: 60 mg Famotidine (Pepcid) 20 mg PO DAILY [facility] Last Admin: 04/09/18 09:21 Dose: Not Given Furosemide (Lasix) 20 mg IVP DAILY [facility] Last Admin: 04/09/18 15:59 Dose: 20 mg Guaifenesin (Robitussin) 100 mg PO Q4 PRN PRN Reason: Cough Last Admin: 04/09/18 00:38 Dose: 100 mg Cefepime HCl 1 gm/ Sodium (Chloride) 100 mls @ 200 mls/hr IVPB DAILY [facility] PRN Reason: Protocol Last Admin: 04/09/18 09:06 Dose: 200 mls/hr Vancomycin HCl 1 gm/ Sodium (Chloride) 250 mls @ 166.667 mls/hr IVPB DAILY@ 1300 [facility] PRN Reason: Protocol Last Admin: 04/09/18 15:10 Dose: Not Given Isosorbide Mononitrate (Imdur Er) 30 mg PO DAILY [facility] Last Admin: 04/09/18 09:20 Dose: Not Given Memantine (Namenda) 5 mg PO BID [facility] Last Admin: 04/09/18 16:01 Dose: Not Given Multivitamins/Minerals (Therapeutic-M Tab) 1 tab PO DAILY [facility] Last Admin: 04/09/18 09:21 Dose: Not Given Saccharomyces Boulardii (Florastor) 250 mg PO BID [facility] Last Admin: 04/09/18 16:01 Dose: Not Given Sodium Hypochlorite (Dakins Solution 0.125%) 0 appl TOP DAILY [facility] Last Admin: 04/09/18 09:19 Dose: Not Given - Labs Labs: 04/08/18 19:30 04/08/18 19:30 - Respiratory Exam Respiratory Exam: NORMAL BREATHING PATTERN - Cardiovascular Exam Cardiovascular Exam: REGULAR RHYTHM - GI/Abdominal Exam GI & Abdominal Exam: Normal Bowel Sounds Assessment and Plan - Assessment and Plan (Free Text) Assessment: Altered mental status?? Decision making capacity?? Toxic metabolic encephalopathy Adj disorder Depression Psychiatry Psychology Neurolgy D/W Nephew POA HCP DNR DNI Hospice PVD S/P Angioplasty Iliac A.Stents S/P Angiogram OUTPATIENT COORDINATOR occlusion Low ext edema cellulitis gangrene Local wound care IV ABX DAPT Lovenox ID Podiatry Surgery Physiatry Cardiology (Inv) ABBEY/ CKD IVF Nephrology US Kidney WNl Hx CHF Diastolic CAD stress thalium scarring ischemia?? Cardiology Hx COPD L Pleural effusion Pulmonary Hx Anemia Chronic dx NIDDM Thyroid dx
--- NOTE | 2018-04-09 21:59 | CP.PCM.PN ---
<Danie Christine - Last Filed: 04/09/18 22:30> Subjective - Date & Time of Evaluation Date of Evaluation: 04/09/18 Time of Evaluation: 11:10 - Subjective Subjective: Patient seen and examined at bedside. Patient appears confused and slowly responding to questions. Patient is unable to speak in full sentences. Reports cough and SOB. Unable to expectorate. Vitals: BP 95/60, P 90, SPO2 96% on NC. Previous labs Na 145, K 4.5, BUN 36, Cr 1.0. On physical exam B/L medium rales in middle and lower lobe, Breath sounds decreased B/L, No wheezing. B/L lower extremity edema present. LE gangrene and necrosis present. Discussed with Dr. Stockton about dyspnea and CHF. Consider starting on Oral Lasix vs Aldectone 25 mg PO QD Monitor vitals and BMP/K+ closely. Objective - Vital Signs/Intake and Output Vital Signs (last 24 hours): Temp Pulse Resp BP Pulse Ox 97 F L 92 H 20 100/57 L 94 L 04/09/18 16:24 04/09/18 16:24 04/09/18 16:24 04/09/18 16:24 04/09/18 16:24 - Medications Medications: Current Medications Albuterol/Ipratropium (Duoneb 3 Mg/0.5 Mg (3 Ml) Ud) 3 ml INH RQ4 PRN PRN Reason: Shortness of Breath Last Admin: 04/09/18 10:10 Dose: 3 ml Atorvastatin Calcium (Lipitor) 20 mg PO DAILY [facility] Last Admin: 04/09/18 09:20 Dose: Not Given Bisacodyl (Dulcolax) 10 mg [place] DAILY PRN PRN Reason: Constipation Docusate Sodium (Colace) 100 mg PO DAILY [facility] Last Admin: 04/09/18 09:18 Dose: Not Given Enoxaparin Sodium (Lovenox) 60 mg SC Q12 [facility] PRN Reason: Protocol Last Admin: 04/09/18 09:07 Dose: 60 mg Famotidine (Pepcid) 20 mg PO DAILY [facility] Last Admin: 04/09/18 09:21 Dose: Not Given Furosemide (Lasix) 20 mg IVP DAILY [facility] Last Admin: 04/09/18 15:59 Dose: 20 mg Guaifenesin (Robitussin) 100 mg PO Q4 PRN PRN Reason: Cough Last Admin: 04/09/18 00:38 Dose: 100 mg Cefepime HCl 1 gm/ Sodium (Chloride) 100 mls @ 200 mls/hr IVPB DAILY [facility] PRN Reason: Protocol Last Admin: 04/09/18 09:06 Dose: 200 mls/hr Vancomycin HCl 1 gm/ Sodium (Chloride) 250 mls @ 166.667 mls/hr IVPB DAILY@ 1300 [facility] PRN Reason: Protocol Last Admin: 04/09/18 15:10 Dose: Not Given Isosorbide Mononitrate (Imdur Er) 30 mg PO DAILY [facility] Last Admin: 04/09/18 09:20 Dose: Not Given Memantine (Namenda) 5 mg PO BID [facility] Last Admin: 04/09/18 16:01 Dose: Not Given Multivitamins/Minerals (Therapeutic-M Tab) 1 tab PO DAILY [facility] Last Admin: 04/09/18 09:21 Dose: Not Given Saccharomyces Boulardii (Florastor) 250 mg PO BID [facility] Last Admin: 04/09/18 16:01 Dose: Not Given Sodium Hypochlorite (Dakins Solution 0.125%) 0 appl TOP DAILY [facility] Last Admin: 04/09/18 09:19 Dose: Not Given - Labs Labs: 04/08/18 19:30 04/08/18 19:30 <Jimbo Stockton - Last Filed: 04/13/18 14:19> Subjective - Subjective Subjective: Seen and examined together with the residents on rounds. Physical findings and ancillary studies reviewed. Case was discussed and assessment/plan of care formulated. The entry made by the resident accurately reflects today's encounter. 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
[2018-04-10] MEDS: Albuterol-Ipratrop 3 mg / 0.5 (3 ml) UD INH PRN ×3 (02:59→22:04)
--- NOTE | 2018-04-10 07:25 | CP.PCM.PN ---
Subjective - Date & Time of Evaluation Date of Evaluation: 04/10/18 Time of Evaluation: 07:23 - Subjective Subjective: Podiatry progress Note for Dr. Briseno: 77 year old female patient seen and evaluated at bedside for bilateral extensive nectrotic lower extremity ulcerations secondary to DM and PVD. Patient is lethargic. Patient is short of breath. No acute events overnight. Denies N/V/F/SOB/CP. Objective - Vital Signs/Intake and Output Vital Signs (last 24 hours): Temp Pulse Resp BP Pulse Ox 97.8 F 98 H 22 105/72 98 04/09/18 23:51 04/09/18 23:51 04/09/18 23:51 04/09/18 23:51 04/09/18 23:51 Intake and Output: 04/10/18 04/10/18 06:59 18:59 Intake Total 25 Output Total 150 Balance -125 - Medications Medications: Current Medications Albuterol/Ipratropium (Duoneb 3 Mg/0.5 Mg (3 Ml) Ud) 3 ml INH RQ4 PRN PRN Reason: Shortness of Breath Last Admin: 04/10/18 02:59 Dose: 3 ml Atorvastatin Calcium (Lipitor) 20 mg PO DAILY [facility] Last Admin: 04/09/18 09:20 Dose: Not Given Bisacodyl (Dulcolax) 10 mg [place] DAILY PRN PRN Reason: Constipation Docusate Sodium (Colace) 100 mg PO DAILY [facility] Last Admin: 04/09/18 09:18 Dose: Not Given Enoxaparin Sodium (Lovenox) 60 mg SC Q12 [facility] PRN Reason: Protocol Last Admin: 04/09/18 22:00 Dose: 60 mg Famotidine (Pepcid) 20 mg PO DAILY [facility] Last Admin: 04/09/18 09:21 Dose: Not Given Furosemide (Lasix) 20 mg IVP DAILY [facility] Last Admin: 04/09/18 15:59 Dose: 20 mg Guaifenesin (Robitussin) 100 mg PO Q4 PRN PRN Reason: Cough Last Admin: 04/09/18 00:38 Dose: 100 mg Cefepime HCl 1 gm/ Sodium (Chloride) 100 mls @ 200 mls/hr IVPB DAILY [facility] PRN Reason: Protocol Last Admin: 04/09/18 09:06 Dose: 200 mls/hr Vancomycin HCl 1 gm/ Sodium (Chloride) 250 mls @ 166.667 mls/hr IVPB DAILY@ 1300 [facility] PRN Reason: Protocol Last Admin: 04/09/18 15:10 Dose: Not Given Isosorbide Mononitrate (Imdur Er) 30 mg PO DAILY [facility] Last Admin: 04/09/18 09:20 Dose: Not Given Memantine (Namenda) 5 mg PO BID [facility] Last Admin: 04/09/18 16:01 Dose: Not Given Multivitamins/Minerals (Therapeutic-M Tab) 1 tab PO DAILY [facility] Last Admin: 04/09/18 09:21 Dose: Not Given Saccharomyces Boulardii (Florastor) 250 mg PO BID [facility] Last Admin: 04/09/18 16:01 Dose: Not Given Sodium Hypochlorite (Dakins Solution 0.125%) 0 appl TOP DAILY [facility] Last Admin: 04/09/18 09:19 Dose: Not Given - Labs Labs: 04/08/18 19:30 04/08/18 19:30 - Constitutional Appears: Well, Non-toxic, No Acute Distress - Head Exam Head Exam: ATRAUMATIC, NORMOCEPHALIC - Extremities Exam Additional comments: Vasc: DP/PT pulses non-palpable, Temp gradient cool to cool, Cap refill delayed to digits/not attainable due to necrosis of 2-5 on right foot. Superficial pulsating artery palpated within the right circumfrential leg ulceration Ortho: Bilateral lower extremities painful upon palpation Neuro: Gross sensation intact and protective sensation diminished bilaterally Derm: Multiple ulcerations noted to the entire lower extremity with mixture of fibrotic/necrotic wound base: Erythema to the entire lower extremity with R>L, significantly malodorous, all sites (-) for purulence, probe to bone, tunneling or undermining. RIGHT: 1) Necrotic right heel eschar unstagable with no drainage noted measuring 9.0 cm X 7.0 cm 2) Circumferential ulceration to the medial posterior aspect measuring 21 cm in length, fibrotic edges, peroneal tendon exposed, gastroc tendon exposed, serous drainage noted 3) necrotic 2nd and 3rd digits till the level of the MPTJ, dorsally necrotic 4th digit t the level of the MTPJ 4) fibro/necrotic ulceration to the dorsal aspect of the hallux at the PIPJ measuring 3.0 cmX 2.5 cm 5) fibro/necrotic ulceration to the dorsal forefoot measuring 2.5 cm X 1.8 cm 6) fibro/necrotic ulceration noted to the medial ankle distal to the medial malleolus measuring 4. 0 X 2.0 cm, + fluctuance noted 7) fibro/necrotic ulceration to the anterior tibial tuberosity measuring 3.0 X 1.0 cm 8) circular ulceration noted to the medial aspect of the leg at the level of the tibial tuberosity measuring 2.4 cm X 2.6 cm x1.5 with 80% graular and 20% fibrotic bases, surrounding erythema 9) multiple stable eschars to the knee 10) New wound noted to the right hallux with minimal bleeding LEFT: 1) echar to the heel, necrotic, measuring 5.0 cm X 6.0 cm 2) fibro/necrotic ulceration to the dorsal aspect of the foot, with fibrotic edges, positive drainage, dusky appearance extending proximally and beginning to demarcate 3) fibro/necrotic ulceration to the medial aspect of the leg measuring 5.0 c, X 3.0 cm 4) gangranous changes to the tip of the hallux, and to the dorsum of the 2nd digit, dusky appearance to hallux 5) multipe eschars to the tibial tuberosity, stable in nature - Neurological Exam Neurological Exam: Alert, Awake, Oriented x3 - Psychiatric Exam Psychiatric exam: Normal Affect, Normal Mood Assessment and Plan - Assessment and Plan (Free Text) Assessment: 77 year old female patient seen and evaluated at bedside for bilateral extensive necrotic lower extremity ulcerations. Plan: Patient seen and evaluated at bedside and discussed with Dr. Briseno B/L dressing change using adaptic, abd, and dsd Patient chart, labs and vitals reviewed: Afebrile, leukocytosis present Continue IV abx per ID reccs X-ray foot bilaterally: No signs of acute osseous changes; Proximal tib-fibula X -ray: multiple deep ulcers, no evidence of osteomyelitis. (03/20) Bilateral wound culture 03/20/18: E. Coli (Final) B/L lower extremity ulcerations evaluated, will continue to monitor lesions and their progression Dressing changed to bilateral lower extremities with Adaptic, ABD, and DSD Patient to wear multipodus boots at all times. Podiatry will continue to follow while patient is in house
[2018-04-10] MEDS ORDERED: Povidone Iodine Topical 10% Sol ONE (07:41)
--- NOTE | 2018-04-10 08:36 | RAD ---
Date of service: 04/10/2018 PROCEDURE: CHEST RADIOGRAPH, 1 VIEW HISTORY: SOB COMPARISON: 04/09/2018 FINDINGS: LUNGS: There is no significant interval change in moderate to severe pulmonary venous congestion. PLEURA: No pneumothorax. Moderate pleural effusions are again seen. CARDIOVASCULAR: Persistent moderate cardiomegaly and prominent central vasculature P OSSEOUS STRUCTURES: No significant abnormalities. VISUALIZED UPPER ABDOMEN: Normal. OTHER FINDINGS: None. IMPRESSION: No change in presumable congestive heart failure.
--- NOTE | 2018-04-10 09:48 | CP.PCM.PN ---
Subjective - Date & Time of Evaluation Date of Evaluation: 04/10/18 Time of Evaluation: 08:30 - Subjective Subjective: CONFUSED BUT DENIES CHEST PAIN OR SOB Objective - Vital Signs/Intake and Output Vital Signs (last 24 hours): Temp Pulse Resp BP Pulse Ox 97.3 F L 76 22 110/62 96 04/10/18 08:02 04/10/18 08:02 04/10/18 08:02 04/10/18 08:02 04/10/18 08:02 Intake and Output: 04/10/18 04/10/18 06:59 18:59 Intake Total 25 Output Total 150 Balance -125 - Medications Medications: Current Medications Albuterol/Ipratropium (Duoneb 3 Mg/0.5 Mg (3 Ml) Ud) 3 ml INH RQ4 PRN PRN Reason: Shortness of Breath Last Admin: 04/10/18 08:04 Dose: 3 ml Atorvastatin Calcium (Lipitor) 20 mg PO DAILY [facility] Last Admin: 04/09/18 09:20 Dose: Not Given Bisacodyl (Dulcolax) 10 mg [place] DAILY PRN PRN Reason: Constipation Docusate Sodium (Colace) 100 mg PO DAILY [facility] Last Admin: 04/09/18 09:18 Dose: Not Given Enoxaparin Sodium (Lovenox) 60 mg SC Q12 [facility] PRN Reason: Protocol Last Admin: 04/09/18 22:00 Dose: 60 mg Famotidine (Pepcid) 20 mg PO DAILY [facility] Last Admin: 04/09/18 09:21 Dose: Not Given Furosemide (Lasix) 20 mg IVP DAILY [facility] Last Admin: 04/09/18 15:59 Dose: 20 mg Guaifenesin (Robitussin) 100 mg PO Q4 PRN PRN Reason: Cough Last Admin: 04/09/18 00:38 Dose: 100 mg Cefepime HCl 1 gm/ Sodium (Chloride) 100 mls @ 200 mls/hr IVPB DAILY [facility] PRN Reason: Protocol Last Admin: 04/09/18 09:06 Dose: 200 mls/hr Vancomycin HCl 1 gm/ Sodium (Chloride) 250 mls @ 166.667 mls/hr IVPB DAILY@ 1300 [facility] PRN Reason: Protocol Last Admin: 04/09/18 15:10 Dose: Not Given Isosorbide Mononitrate (Imdur Er) 30 mg PO DAILY [facility] Last Admin: 04/09/18 09:20 Dose: Not Given Memantine (Namenda) 5 mg PO BID [facility] Last Admin: 04/09/18 16:01 Dose: Not Given Multivitamins/Minerals (Therapeutic-M Tab) 1 tab PO DAILY [facility] Last Admin: 04/09/18 09:21 Dose: Not Given Saccharomyces Boulardii (Florastor) 250 mg PO BID [facility] Last Admin: 04/09/18 16:01 Dose: Not Given Sodium Hypochlorite (Dakins Solution 0.125%) 0 appl TOP DAILY [facility] Last Admin: 04/09/18 09:19 Dose: Not Given - Labs Labs: 04/08/18 19:30 04/08/18 19:30 - Respiratory Exam Respiratory Exam: Decreased Breath Sounds - Cardiovascular Exam Cardiovascular Exam: REGULAR RHYTHM, +S1, +S2 Assessment and Plan - Assessment and Plan (Free Text) Assessment: CAD SEVERE PAD HYPERTENSION COPD Plan: PATIENT WAS MADE A DNR AND WILL HAVE HOSPICE EVALUATION
[2018-04-10] MEDS: Multivitamin With Minerals Tab PO SCH ×2 (10:24→10:57)
[2018-04-10] MEDS: Saccharomyces Boulardi 250 mg Cap PO SCH ×2 (10:24→10:58)
[2018-04-10] MEDS: Enoxaparin 60 mg Syringe SC SCH ×2 (10:25→21:40)
[2018-04-10] MEDS: Cefepime 1 GM in Sodium Chloride 0.9% 100 ML IVPB SCH (10:27)
--- NOTE | 2018-04-10 17:47 | CP.PCM.PN ---
Subjective - Date & Time of Evaluation Date of Evaluation: 04/10/18 Time of Evaluation: 09:00 - Subjective Subjective: weak lethargic congested nad afebrile Objective - Vital Signs/Intake and Output Vital Signs (last 24 hours): Temp Pulse Resp BP Pulse Ox 97.2 F L 85 20 107/73 98 04/10/18 16:55 04/10/18 16:55 04/10/18 16:55 04/10/18 16:55 04/10/18 16:55 Intake and Output: 04/10/18 04/10/18 06:59 18:59 Intake Total 25 100 Output Total 150 Balance -125 100 - Medications Medications: Current Medications Albuterol/Ipratropium (Duoneb 3 Mg/0.5 Mg (3 Ml) Ud) 3 ml INH RQ4 PRN PRN Reason: Shortness of Breath Last Admin: 04/10/18 08:04 Dose: 3 ml Atorvastatin Calcium (Lipitor) 20 mg PO DAILY [facility] Last Admin: 04/10/18 10:58 Dose: Not Given Bisacodyl (Dulcolax) 10 mg [place] DAILY PRN PRN Reason: Constipation Docusate Sodium (Colace) 100 mg PO DAILY [facility] Last Admin: 04/10/18 10:56 Dose: Not Given Enoxaparin Sodium (Lovenox) 60 mg SC Q12 [facility] PRN Reason: Protocol Last Admin: 04/10/18 10:25 Dose: 60 mg Famotidine (Pepcid) 20 mg PO DAILY [facility] Last Admin: 04/10/18 10:58 Dose: Not Given Guaifenesin (Robitussin) 100 mg PO Q4 PRN PRN Reason: Cough Last Admin: 04/09/18 00:38 Dose: 100 mg Cefepime HCl 1 gm/ Sodium (Chloride) 100 mls @ 200 mls/hr IVPB DAILY [facility] PRN Reason: Protocol Last Admin: 04/10/18 10:27 Dose: 200 mls/hr Vancomycin HCl 1 gm/ Sodium (Chloride) 250 mls @ 166.667 mls/hr IVPB DAILY@ 1300 [facility] PRN Reason: Protocol Last Admin: 04/09/18 15:10 Dose: Not Given Isosorbide Mononitrate (Imdur Er) 30 mg PO DAILY [facility] Last Admin: 04/10/18 10:58 Dose: Not Given Memantine (Namenda) 5 mg PO BID [facility] Last Admin: 04/10/18 10:58 Dose: Not Given Morphine Sulfate (Morphine) 2 mg IVP Q6 PRN PRN Reason: Pain, moderate (4-7) Multivitamins/Minerals (Therapeutic-M Tab) 1 tab PO DAILY [facility] Last Admin: 04/10/18 10:57 Dose: Not Given Saccharomyces Boulardii (Florastor) 250 mg PO BID [facility] Last Admin: 04/10/18 10:58 Dose: Not Given Sodium Hypochlorite (Dakins Solution 0.125%) 0 appl TOP DAILY [facility] Last Admin: 04/10/18 10:22 Dose: 20 appl - Labs Labs: 04/08/18 19:30 04/08/18 19:30 - Constitutional Appears: No Acute Distress, Confused, Chronically Ill - Head Exam Head Exam: absent: NORMOCEPHALIC - Eye Exam Eye Exam: PERRL - ENT Exam ENT Exam: Mucous Membranes Dry - Neck Exam Neck Exam: absent: Lymphadenopathy - Respiratory Exam Respiratory Exam: Decreased Breath Sounds, Rhonchi - Cardiovascular Exam Cardiovascular Exam: Tachycardia, REGULAR RHYTHM, +S1, +S2 - GI/Abdominal Exam GI & Abdominal Exam: Distended, Soft. absent: Tenderness - Rectal Exam Rectal Exam: Deferred - Exam Exam: NORMAL INSPECTION - Extremities Exam Extremities Exam: Pedal Edema. absent: Calf Tenderness, Normal Inspection Additional comments: multiple ulcers gangrene of digits - Back Exam Back Exam: absent: CVA tenderness (L), CVA tenderness (R) - Neurological Exam Neurological Exam: Altered, CN II-XII Intact Assessment and Plan - Assessment and Plan (Free Text) Assessment: svere mgangrenous ulcers / pvd needs amputation
--- NOTE | 2018-04-10 20:20 | CP.PCM.PN ---
Subjective - Date & Time of Evaluation Date of Evaluation: 04/10/18 Time of Evaluation: 22:22 - Subjective Subjective: Above noted Objective - Vital Signs/Intake and Output Vital Signs (last 24 hours): Temp Pulse Resp BP Pulse Ox 97.2 F L 85 20 107/73 98 04/10/18 16:55 04/10/18 16:55 04/10/18 16:55 04/10/18 16:55 04/10/18 16:55 Intake and Output: 04/10/18 04/11/18 18:59 06:59 Intake Total 100 Balance 100 - Medications Medications: Current Medications Albuterol/Ipratropium (Duoneb 3 Mg/0.5 Mg (3 Ml) Ud) 3 ml INH RQ4 PRN PRN Reason: Shortness of Breath Last Admin: 04/10/18 08:04 Dose: 3 ml Atorvastatin Calcium (Lipitor) 20 mg PO DAILY [facility] Last Admin: 04/10/18 10:58 Dose: Not Given Bisacodyl (Dulcolax) 10 mg [place] DAILY PRN PRN Reason: Constipation Docusate Sodium (Colace) 100 mg PO DAILY [facility] Last Admin: 04/10/18 10:56 Dose: Not Given Enoxaparin Sodium (Lovenox) 60 mg SC Q12 [facility] PRN Reason: Protocol Last Admin: 04/10/18 10:25 Dose: 60 mg Famotidine (Pepcid) 20 mg PO DAILY [facility] Last Admin: 04/10/18 10:58 Dose: Not Given Guaifenesin (Robitussin) 100 mg PO Q4 PRN PRN Reason: Cough Last Admin: 04/09/18 00:38 Dose: 100 mg Cefepime HCl 1 gm/ Sodium (Chloride) 100 mls @ 200 mls/hr IVPB DAILY [facility] PRN Reason: Protocol Last Admin: 04/10/18 10:27 Dose: 200 mls/hr Vancomycin HCl 1 gm/ Sodium (Chloride) 250 mls @ 166.667 mls/hr IVPB DAILY@ 1300 [facility] PRN Reason: Protocol Last Admin: 04/09/18 15:10 Dose: Not Given Isosorbide Mononitrate (Imdur Er) 30 mg PO DAILY [facility] Last Admin: 04/10/18 10:58 Dose: Not Given Memantine (Namenda) 5 mg PO BID [facility] Last Admin: 04/10/18 10:58 Dose: Not Given Morphine Sulfate (Morphine) 2 mg IVP Q6 PRN PRN Reason: Pain, moderate (4-7) Multivitamins/Minerals (Therapeutic-M Tab) 1 tab PO DAILY [facility] Last Admin: 04/10/18 10:57 Dose: Not Given Saccharomyces Boulardii (Florastor) 250 mg PO BID [facility] Last Admin: 04/10/18 10:58 Dose: Not Given Sodium Hypochlorite (Dakins Solution 0.125%) 0 appl TOP DAILY [facility] Last Admin: 04/10/18 10:22 Dose: 20 appl - Labs Labs: 04/08/18 19:30 04/08/18 19:30 - Respiratory Exam Respiratory Exam: NORMAL BREATHING PATTERN - Cardiovascular Exam Cardiovascular Exam: REGULAR RHYTHM - GI/Abdominal Exam GI & Abdominal Exam: Normal Bowel Sounds Assessment and Plan - Assessment and Plan (Free Text) Assessment: Altered mental status?? Decision making capacity?? Toxic metabolic encephalopathy Adj disorder Depression Psychiatry Psychology Neurolgy D/W Nephew POA HCP DNR DNI Hospice PVD S/P Angioplasty Iliac A.Stents S/P Angiogram [employer] occlusion Low ext edema cellulitis gangrene Local wound care IV ABX DAPT Lovenox ID Podiatry Surgery Physiatry Cardiology (Inv) ABBEY/ CKD IVF Nephrology US Kidney WNl Hx CHF Diastolic CAD stress thalium scarring ischemia?? Cardiology Hx COPD L Pleural effusion Pulmonary Hx Anemia Chronic dx NIDDM Thyroid dx
--- NOTE | 2018-04-10 21:06 | CP.PCM.PN ---
Subjective - Date & Time of Evaluation Date of Evaluation: 04/10/18 Time of Evaluation: 21:04 - Subjective Subjective: Seen on rounds earlier in the day. Appears to have declined physical status significantly. CXR shows worsening congestive changes. Patient is lethargic with airways secretions audible. Unable to expectorate despite trying, uncooperative when suctioning was attempted. Discussed with staff, and Hospice care is being entertained. NOK/POA has apparently been contacted. Objective - Vital Signs/Intake and Output Vital Signs (last 24 hours): Temp Pulse Resp BP Pulse Ox 97.2 F L 85 20 107/73 98 04/10/18 16:55 04/10/18 16:55 04/10/18 16:55 04/10/18 16:55 04/10/18 16:55 Intake and Output: 04/10/18 04/10/18 11:59 23:59 Intake Total 125 Output Total 150 Balance -25 - Medications Medications: Current Medications Albuterol/Ipratropium (Duoneb 3 Mg/0.5 Mg (3 Ml) Ud) 3 ml INH RQ4 PRN PRN Reason: Shortness of Breath Last Admin: 04/10/18 08:04 Dose: 3 ml Atorvastatin Calcium (Lipitor) 20 mg PO DAILY [facility] Last Admin: 04/10/18 10:58 Dose: Not Given Bisacodyl (Dulcolax) 10 mg [place] DAILY PRN PRN Reason: Constipation Docusate Sodium (Colace) 100 mg PO DAILY [facility] Last Admin: 04/10/18 10:56 Dose: Not Given Enoxaparin Sodium (Lovenox) 60 mg SC Q12 [facility] PRN Reason: Protocol Last Admin: 04/10/18 10:25 Dose: 60 mg Famotidine (Pepcid) 20 mg PO DAILY [facility] Last Admin: 04/10/18 10:58 Dose: Not Given Guaifenesin (Robitussin) 100 mg PO Q4 PRN PRN Reason: Cough Last Admin: 04/09/18 00:38 Dose: 100 mg Cefepime HCl 1 gm/ Sodium (Chloride) 100 mls @ 200 mls/hr IVPB DAILY [facility] PRN Reason: Protocol Last Admin: 04/10/18 10:27 Dose: 200 mls/hr Vancomycin HCl 1 gm/ Sodium (Chloride) 250 mls @ 166.667 mls/hr IVPB DAILY@ 1300 [facility] PRN Reason: Protocol Last Admin: 04/09/18 15:10 Dose: Not Given Isosorbide Mononitrate (Imdur Er) 30 mg PO DAILY [facility] Last Admin: 04/10/18 10:58 Dose: Not Given Memantine (Namenda) 5 mg PO BID [facility] Last Admin: 04/10/18 10:58 Dose: Not Given Morphine Sulfate (Morphine) 2 mg IVP Q6 PRN PRN Reason: Pain, moderate (4-7) Multivitamins/Minerals (Therapeutic-M Tab) 1 tab PO DAILY [facility] Last Admin: 04/10/18 10:57 Dose: Not Given Saccharomyces Boulardii (Florastor) 250 mg PO BID [facility] Last Admin: 04/10/18 10:58 Dose: Not Given Sodium Hypochlorite (Dakins Solution 0.125%) 0 appl TOP DAILY [facility] Last Admin: 04/10/18 10:22 Dose: 20 appl - Labs Labs: 04/08/18 19:30 04/08/18 19:30 Assessment and Plan (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
[2018-04-11] MEDS: Albuterol-Ipratrop 3 mg / 0.5 (3 ml) UD INH PRN (02:28)
[2018-04-11 06:23] LABS: HEMOGLOBIN 8.1 g/dL (12.0-16.0); MEAN CELL VOLUME 79.7 fl (81.0-99.0); MEAN CORPUSCULAR HEMOGLOBIN 23.3 pg (27.0-31.0); MEAN CORPUSCULAR HGB CONC 29.2 g/dL (33.0-37.0); RBC 3.49 Mil/uL (3.80-5.20); RED CELL DISTRIBUTION WIDTH 24.4 % (11.5-14.5); WHITE BLOOD COUNT 9.1 K/uL (4.8-10.8)
[2018-04-11 06:54] LABS: ALB/GLOB RATIO 0.8 (1.0-2.1); ALBUMIN 2.3 g/dL (3.5-5.0); CALCIUM 8.9 mg/dL (8.4-10.2)
[2018-04-11 07:59] VITALS: BP 90/51; PULSE 103; RESP 22; TEMP 96.9; O2SAT 97
[2018-04-11] MEDS: Cefepime 1 GM in Sodium Chloride 0.9% 100 ML IVPB SCH (09:08)
[2018-04-11] MEDS: Saccharomyces Boulardi 250 mg Cap PO SCH (09:08)
[2018-04-11] MEDS: Multivitamin With Minerals Tab PO SCH (09:09)
[2018-04-11] MEDS: Enoxaparin 60 mg Syringe SC SCH (09:12)
[2018-04-11] MEDS ORDERED: Albuterol-Ipratrop 3 mg / 0.5 (3 ml) UD INH STA (09:23)
--- NOTE | 2018-04-11 09:45 | CP.PCM.PN ---
Subjective - Date & Time of Evaluation Date of Evaluation: 04/11/18 Time of Evaluation: 08:00 - Subjective Subjective: NO COMPLAINTS BUT CONFUSED Objective - Vital Signs/Intake and Output Vital Signs (last 24 hours): Temp Pulse Resp BP Pulse Ox 96.9 F L 103 H 22 90/51 L 97 04/11/18 07:59 04/11/18 07:59 04/11/18 07:59 04/11/18 07:59 04/11/18 07:59 - Medications Medications: Current Medications Albuterol/Ipratropium (Duoneb 3 Mg/0.5 Mg (3 Ml) Ud) 3 ml INH RQ4 [facility] Atorvastatin Calcium (Lipitor) 20 mg PO DAILY [facility] Last Admin: 04/11/18 09:08 Dose: Not Given Bisacodyl (Dulcolax) 10 mg [place] DAILY PRN PRN Reason: Constipation Docusate Sodium (Colace) 100 mg PO DAILY [facility] Last Admin: 04/11/18 09:06 Dose: Not Given Enoxaparin Sodium (Lovenox) 60 mg SC Q12 [facility] PRN Reason: Protocol Last Admin: 04/11/18 09:12 Dose: 60 mg Famotidine (Pepcid) 20 mg PO DAILY [facility] Last Admin: 04/11/18 09:09 Dose: Not Given Guaifenesin (Robitussin) 100 mg PO Q4 PRN PRN Reason: Cough Last Admin: 04/09/18 00:38 Dose: 100 mg Cefepime HCl 1 gm/ Sodium (Chloride) 100 mls @ 200 mls/hr IVPB DAILY [facility] PRN Reason: Protocol Last Admin: 04/11/18 09:08 Dose: 200 mls/hr Vancomycin HCl 1 gm/ Sodium (Chloride) 250 mls @ 166.667 mls/hr IVPB DAILY@ 1300 [facility] PRN Reason: Protocol Last Admin: 04/09/18 15:10 Dose: Not Given Isosorbide Mononitrate (Imdur Er) 30 mg PO DAILY [facility] Last Admin: 04/11/18 09:08 Dose: Not Given Memantine (Namenda) 5 mg PO BID [facility] Last Admin: 04/11/18 09:09 Dose: Not Given Morphine Sulfate (Morphine) 2 mg IVP Q6 PRN PRN Reason: Pain, moderate (4-7) Last Admin: 04/11/18 09:37 Dose: 2 mg Multivitamins/Minerals (Therapeutic-M Tab) 1 tab PO DAILY [facility] Last Admin: 04/11/18 09:09 Dose: Not Given Saccharomyces Boulardii (Florastor) 250 mg PO BID [facility] Last Admin: 04/11/18 09:08 Dose: Not Given Sodium Hypochlorite (Dakins Solution 0.125%) 0 appl TOP DAILY [facility] Last Admin: 04/11/18 09:07 Dose: Not Given - Labs Labs: 04/11/18 05:55 04/11/18 06:00 - Respiratory Exam Respiratory Exam: Decreased Breath Sounds - Cardiovascular Exam Cardiovascular Exam: REGULAR RHYTHM, +S1, +S2 - Additional Findings Additional findings: LABS NOTED CXR WITH PULMONARY CONGESTION BP 90/51 Assessment and Plan - Assessment and Plan (Free Text) Assessment: CAD SEVERE PAD RENAL INSUFFICIENCY HYPERLIPIDEMIA COPD PULMONARY CONGESTION PROGNOSIS VERY POOR Plan: PATIENT BEING EVALUATED FOR HOSPICE CARE CONTINUE ANTIBIOTICS, ATORVASTATIN, LOVENOX AND IMDUR LASIX GIVEN YESTERDAY BUT BLOOD PRESSURE IS LOW
--- NOTE | 2018-04-11 10:39 | CP.PCM.PCO ---
Assessment & Plan - Assessment and Plan (Free Text) Assessment: Pronouncement note I was called by RN to pronounce patient , pt has no spontaneous movements present. Non responsive to verbal or tactile stimuli. Pupils fixed, mid- dilated No breath sounds appreciated over b/l lung arthur. No carotid pulses were palpable. No heart sounds over precordium. Patient pronounced at 10:25 am. and consultants all notified. Contacted patient"s Nephew Jimbo multiple times and left a voicemail to return call. Patient is DNR/DNI, Time of 10:25 am. Confirmed and witnessed by LEANDRO Petersen. E[employer] certificate case # [id number]
[2018-04-11] MEDS ORDERED: Albuterol-Ipratrop 3 mg / 0.5 (3 ml) UD INH SCH (12:00)
--- NOTE | 2018-04-11 17:03 | CP.PCM.PN ---
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
--- NOTE | 2018-04-15 12:29 | PQF ---
PROVIDER RESPONSE TEXT: Agree with wound care nurse documentation of 2 stage 2 ulcers REVIEWER QUERY TEXT: Pressure Ulcer Type Two stage 2 Pressure ulcers of the sacrum are documented in the Medical Record by the food analyst on 04/07/18 Please specify the location, present on admission status and stage: POA status of each pressure ulcer: -- Not present on admission -- Present on admission -- Other -- Clinically unable to determine -- Unknown Stage of each pressure ulcer (National Pressure Ulcer Advisory Panel definitions): -- Stage I: Intact skin with non-blanchable redness of a localized area -- Stage II: Partial thickness skin loss involving dermis with a shallow open ulcer or an open serum -filled blister -- Stage III: Full thickness skin loss involving damage or necrosis of subcutaneous tissue -- Stage IV: Full thickness skin loss with exposed bone, tendon or muscle -- Unstageable: Full thickness tissue loss in which the base of the ulcer is covered by slough and/o r eschar in the wound bed The patient's Clinical Indicators include: 04/04 Patient was a Direct Admission from [facility] ([facility] Admitting nurse with documentation of press ure ulcer present on admission. 04/07 food analyst consult with the above documentation and recommendations. Query created by: Kaivta Soria on 04/08/2018 10:29 AM Electronically signed by: Jimbo Young MD 04/15/2018 12:26 PM
--- NOTE | 2018-04-15 13:09 | PQF ---
PROVIDER RESPONSE TEXT: CKD no ABBEY REVIEWER QUERY TEXT: Clinical Validity This is considered a NEW ADMISSION. Additional clinical indicators are required to support your documented diagnosis of ABBEY/CKD for this New Admission. Please respond and also state in your next progress note whether: -- Condition currently exists and also please provide clinical indicators to support the diagnosis -- Condition does not currently exist and also please provide amended documentation in the medical re cord to clarify -- Unable to provide additional clarity regarding the diagnosis -- Other, please specify The patient's Clinical Indicators include: 03/20/18--- 04/01/18. Patient was admitted to [place]. 04/01/18 Patient went to [facility] for an angiogram and was admitted there after the procedure. 04/04/18 Patient was then sent from [facility] back to [place]. THIS IS A NEW ADMISSION. 03/31/18- 04/03 : BUN 31-33, Creatinine 0.9- 0.8, GFR > 60 Query created by: Kavita Soria on 04/08/2018 10:35 AM Electronically signed by: Jimbo Young MD 04/15/2018 1:06 PM
== END 2018-04-11 10:15 | DRG 300 ==
LOC: H.MEDSURG1 18:26 → UNDODISIN 04-11 14:37
PROVIDERS: ADMIT Family Medicine Geriatric Medicine; ATTEND Family Medicine Geriatric Medicine
DX: E11.52 Type 2 diabetes mellitus with diabetic peripheral angiopathy with gangrene (principal); I70.268 Atherosclerosis of native arteries of extremities with gangrene, other extremity; L97.829 Non-pressure chronic ulcer of other part of left lower leg with unspecified severity; L97.819 Non-pressure chronic ulcer of other part of right lower leg with unspecified severity; I50.32 Chronic diastolic (congestive) heart failure; L03.116 Cellulitis of left lower limb; L03.115 Cellulitis of right lower limb; L97.319 Non-pressure chronic ulcer of right ankle with unspecified severity; I70.263 Atherosclerosis of native arteries of extremities with gangrene, bilateral legs; I13.0 Hypertensive heart and chronic kidney disease with heart failure and stage 1 through stage 4 chronic kidney disease, or unspecified chronic kidney disease; Z87.891 Personal history of nicotine dependence; J44.9 Chronic obstructive pulmonary disease, unspecified; I25.10 Atherosclerotic heart disease of native coronary artery without angina pectoris; Z53.20 Procedure and treatment not carried out because of patient's decision for unspecified reasons; E78.5 Hyperlipidemia, unspecified; F03.90 Unspecified dementia, unspecified severity, without behavioral disturbance, psychotic disturbance, mood disturbance, and anxiety; E78.00 Pure hypercholesterolemia, unspecified; F43.21 Adjustment disorder with depressed mood; D63.8 Anemia in other chronic diseases classified elsewhere; L97.529 Non-pressure chronic ulcer of other part of left foot with unspecified severity; E11.622 Type 2 diabetes mellitus with other skin ulcer; Z66 Do not resuscitate; I95.2 Hypotension due to drugs; T44.7X5A Adverse effect of beta-adrenoreceptor antagonists, initial encounter; R91.8 Other nonspecific abnormal finding of lung field; L89.152 Pressure ulcer of sacral region, stage 2; N18.9 Chronic kidney disease, unspecified